=== PATIENT | male | born 1960 | race Caucasian/White ===

== ENCOUNTER 2018-03-11 23:46 | Inpatient (IN) | payer BC ==
[2018-03-12 02:23] VITALS: BMI 41.8
[2018-03-12] MEDS ORDERED: DOCUSATE 100 MG CAP PO PRN (02:55)
[2018-03-12] MEDS ORDERED: VANCOMYCIN 2,000 MG in SODIUM CHLORIDE 0.9% 500 ML IVPB ONE (03:00)
[2018-03-12] MEDS ORDERED: PIPERACILLIN-TAZOBACTAM 3.375 GM in DEXTROSE/WATER 1 50ML.BAG IVPB SCH (03:00)
[2018-03-12 03:22] LABS: Basophils # (A) 0.1 k/uL (0-0.2); Basophils % (A) 1 %; Eosinophils # (A) 0.2 k/uL (0-0.7); Eosinophils % (A) 1 %; HCT 41.3 % (39.0-53.0); HGB 14.2 gm/dL (13.0-17.5); Lymphocytes # (A) 0.7 k/uL (1.0-4.8); Lymphocytes % (A) 5 %; MCH 31.5 pg (25.0-35.0); MCHC 34.5 g/dL (31.0-37.0); MCV 91.4 fL (80.0-100.0); Mean Platelet Volume 7.6; Monocytes # (A) 0.5 k/uL (0-1.0); Monocytes % (A) 3 %; Neutrophils % (A) 89 %; Platelet Count 133 k/uL (150-450); RBC 4.51 m/uL (4.30-5.90); RDW 12.8 % (11.5-15.5); WBC 13.5 k/uL (3.8-10.6)
[2018-03-12] MEDS: SODIUM CHLORIDE 0.9% 1,000 ML IV SCH ×3 (03:28→15:20)
[2018-03-12 03:39] LABS: Anion Gap 15 mmol/L; Blood Urea Nitrogen 16 mg/dL (9-20); Calcium 8.8 mg/dL (8.4-10.2); Carbon Dioxide 26 mmol/L (22-30); Chloride 98 mmol/L (98-107); Glucose 237 mg/dL (74-99); Potassium 3.8 mmol/L (3.5-5.1); Sodium 139 mmol/L (137-145)
[2018-03-12 03:47] LABS: Appearance,Urine Clear (Clear); Bilirubin,Urine Negative (Negative); Blood,Urine Negative (Negative); Color,Urine Yellow; Glucose,Urine (UA) 4+ (Negative); Ketones,Urine Negative (Negative); Leukocyte Esterase,Urine Negative (Negative); Nitrite,Urine Negative (Negative); PH, Urine 5.5 (5.0-8.0); Protein,Urine Trace (Negative); Urobilinogen,Urine <2.0 mg/dL (<2.0)
[2018-03-12] MEDS ORDERED: HYDROcodone/APAP 7.5-325MG 1 EACH TAB PO SCH (04:00)
[2018-03-12 04:02] LABS: Specific Gravity,Urine >1.050 (1.001-1.035)
[2018-03-12 05:43] LABS: Glucose,Whole Blood 267 mg/dL (75-99)
[2018-03-12] MEDS ORDERED: VANCOMYCIN IV PER PHARMACY 1 EACH MISC MISCELLANE PRN (06:00)
--- NOTE | 2018-03-12 06:29 | XR ---
EXAMINATION TYPE: XR chest 2V DATE OF EXAM: 03/12/2018 HISTORY: r/o pneumonia . REFERENCE: NONE. FINDINGS: There are surgical clips projecting over the right side of the neck. There is mild vascular congestion without delma edema. Heart size is upper limits of normal. Pleural spaces are clear. IMPRESSION: BORDERLINE CARDIOMEGALY WITH MILD VASCULAR CONGESTION.
[2018-03-12] MEDS: ACETAMINOPHEN TAB 325 MG TAB PO PRN ×2 (06:36→17:33)
[2018-03-12] MEDS: INSULIN ASPART 100 UNIT/ML 1 ML 10 ML VIAL SQ SCH ×4 (06:37→20:55)
[2018-03-12] MEDS: FLUTICASONE 50MCG/SPRAY NASAL 16GM EA NOSTRIL SCH (08:25)
[2018-03-12] MEDS: METOPROLOL TARTRATE 50 MG TAB PO SCH ×2 (08:26→20:17)
[2018-03-12] MEDS: MIRTAZAPINE 15 MG TAB PO SCH (08:26)
[2018-03-12] MEDS: LOSARTAN 50 MG TAB PO SCH (08:26)
[2018-03-12] MEDS: HEPARIN SODIUM,PORCINE 5,000 UNIT/ML 1 ML VIAL SQ SCH ×2 (08:26→20:18)
[2018-03-12] MEDS: PREGABALIN 75 MG CAP PO SCH ×2 (08:27→20:25)
[2018-03-12] MEDS: FUROSEMIDE 40 MG TAB PO SCH (08:36)
[2018-03-12] MEDS ORDERED: PANTOPRAZOLE 40 MG/10 ML VIAL IVP SCH (09:00)
[2018-03-12] MEDS: PIPERACILLIN-TAZOBACTAM 3.375 GM in DEXTROSE/WATER 1 50ML.BAG IVPB SCH ×2 (09:17→15:21)
[2018-03-12 11:50] LABS: Glucose,Whole Blood 147 mg/dL (75-99)
--- NOTE | 2018-03-12 12:30 | P.HPIM ---
History of Present Illness This is a pleasant 57 years old male with past medical history of DM on metformin, hyperlipidemia, hypertension, thyroid disorder, arthritis, history of MRSA infection , kidney stone and and melanoma at the lateral corner of his right eye, status post surgical resection with neck lymph node dissection as per patient last surgery was on 11/07/2017, and he follow-up with his oncologist on this coming April as per patient who presents with left leg swelling and redness and tenderness of one-day duration With leukocytosis of 13.5 K,High lactic acid at 2.3 came down to 1.9,Patient has fever of 100.8 today and also patient was complaining of from chest pain yesterday, he has family history of early heart disease, 2 of his brothers are in their 50s with extensive heart disease, patient states that he had a heart cath about 15 years ago which shows only mitral valve disease. Patient currently denies any chest pain, no chest shortness of breath, no dizziness Review of Systems Review of Systems All systems: negative Constitutional: Denies chills, Eyes: denies blurred vision, denies pain Ears, nose, mouth and throat: Denies headache, Denies sore throat Cardiovascular: Denies chest pain currently, Denies shortness of breath Respiratory: Reports congestion, Reports home oxygen, Denies cough Gastrointestinal: Denies abdominal pain, Denies diarrhea, Denies nausea, Denies vomiting Musculoskeletal: Denies myalgias Integumentary: Denies pruritus, Denies rash Neurological: Denies numbness, Denies weakness Psychiatric: Denies anxiety, Denies depression Endocrine: Denies fatigue, Denies weight change Past Medical History Past Medical History: CVA/TIA, Diabetes Mellitus, Hyperlipidemia, Hypertension, Sleep Apnea/CPAP/BIPAP Additional Past Medical History / Comment(s): melanoma (diagnosed in March - 2016 ) History of Any Multi-Drug Resistant Organisms: MRSA Date of last positivie culture/infection: 2007 MDRO Source:: back Past Surgical History: Heart Catheterization, Orthopedic Surgery, Prostate Surgery Additional Past Surgical History / Comment(s): neck dissection in October 2017, right shoulder surgery Additional Past Anesthesia/Blood Transfusion Reaction / Comment(s): hard to wake up out of anestheia Past Psychological History: Anxiety, Depression Smoking Status: Never smoker - Past Family History Father Family Medical History: Coronary Artery Disease (CAD) Mother Family Medical History: Coronary Artery Disease (CAD), CVA/TIA Brother(s) Family Medical History: Diabetes Mellitus Medications and Allergies Home Medications Medication Instructions Recorded Confirmed Type Aspirin EC [Ecotrin Low Dose] 81 mg PO DAILY 03/12/18 03/12/18 History Fluconazole [Diflucan] 100 mg PO DAILY 03/12/18 03/12/18 History Fluticasone Nasal [place] [Flonase 1 spray EA NOSTRIL DAILY 03/12/18 03/12/18 History Nasal [place]] Furosemide [Lasix] 40 mg PO DAILY 03/12/18 03/12/18 History HYDROcodone/APAP 7.5-325MG [[place] 1 tab PO Q6H PRN 03/12/18 03/12/18 History 7.5-325] Losartan [Cozaar] 50 mg PO DAILY 03/12/18 03/12/18 History Metoprolol Tartrate [Lopressor] 50 mg PO BID 03/12/18 03/12/18 History Mirtazapine [Mirtazapine] 30 mg PO HS 03/12/18 03/12/18 History Multivitamins, Thera [Multivitamin 1 tab PO DAILY 03/12/18 03/12/18 History (formulary)] Pregabalin [Lyrica] 150 mg PO BID 03/12/18 03/12/18 History metFORMIN HCL [Glucophage] 500 mg PO BID 03/12/18 03/12/18 History traMADol HCl [Ultram] 50 mg PO BID 03/12/18 03/12/18 History Allergies Allergy/AdvReac Type Severity Reaction Status Date / Time gabapentin [From Neurontin] AdvReac EXCESSIVE Verified 03/12/18 11:17 SWEATING Physical Exam Vitals: Vital Signs Temp Pulse Resp BP Pulse Ox 03/12/18 08:10 100.8 F H 83 18 112/68 94 L 03/12/18 03:57 99.4 F 77 18 124/63 98 Intake and Output 03/11/18 03/12/18 03/12/18 22:59 06:59 14:59 Intake Total 200 Output Total 125 Balance -125 200 Intake: Oral 200 Output: Urine 125 Other: Voiding Method Urinal Weight 124.8 kg Constitutional: No acute distress, conversant, pleasant Eyes: Anicteric sclerae, moist conjunctiva, no lid-lag PERRLA ENMT: NC/AT Oropharynx clear, no erythema, exudates Neck: Supple, FROM, no masses, or JVD No carotid bruits No thyromegaly Lungs: Clear to auscultation Clear to percussion Normal respiratory effort, no accessory muscle use Cardiovascular: Heart regular in rate and rhythm, No murmurs, gallops, or rubs No peripheral edema Abdominal: Soft Nontender, no guarding, rebound or rigidity Abdomen moving with respiration Normoactive bowel sounds Large Abdominal swelling, mostly due to her ascites No palpable mass No abdominal wall hernia noted Skin: Normal temperature, tone, texture, turgor No induration No subcutaneous nodules No rash, lesions No ulcers Extremities: No digital cyanosis No clubbing Pedal pulses intact and symmetrical Radial pulses intact and symmetrical Normal gait and station Left leg tenderness , tenderness, and swelling in the upper two thirds anteriorly [demarcated] Psychiatric: Alert and oriented to person, place and time Appropriate affect Intact judgement Neuro: Muscles Strength 5/5 in all 4 extremities Sensation to light touch grossly present throughout Cranial nerves II-XII grossly intact No focal sensory deficits Results CBC & Chem 7: 03/12/18 03:09 03/12/18 03:09 Labs: Abnormal Lab Results - Last 24 Hours (Table) 03/12/18 03/12/18 03/12/18 Range/Units 03:09 03:09 03:09 WBC 13.5 H (3.8-10.6) k/uL Plt Count 133 L (150-450) k/uL Neutrophils # 12.0 H (1.3-7.7) k/uL Lymphocytes # 0.7 L (1.0-4.8) k/uL Glucose 237 H (74-99) mg/dL POC Glucose (mg/dL) (75-99) mg/dL Plasma Lactic Acid Manuel 2.3 H* (0.7-2.0) mmol/L Ur Specific [place] (1.001-1.035) Urine Protein (Negative) Urine Glucose (UA) (Negative) 03/12/18 03/12/18 03/12/18 Range/Units 03:30 05:39 11:48 WBC (3.8-10.6) k/uL Plt Count (150-450) k/uL Neutrophils # (1.3-7.7) k/uL Lymphocytes # (1.0-4.8) k/uL Glucose (74-99) mg/dL POC Glucose (mg/dL) 267 H 147 H (75-99) mg/dL Plasma Lactic Acid Manuel (0.7-2.0) mmol/L Ur Specific [place] >1.050 H (1.001-1.035) Urine Protein Trace H (Negative) Urine Glucose (UA) 4+ H (Negative) Thrombosis Risk Factor Assmnt - Choose All That Apply Each Factor Represents 1 point: Age 41-60 years, Swollen legs (current) Thrombosis Risk Factor Assessment Total Risk Factor Score: 2 Thrombosis Risk Factor Assessment Level: Low Risk Assessment and Plan Plan: -Cellulitis, patient has fever of 100.8 and leukocytosis of 13.5 K, ID consult is called, patient on Vanco and Zosyn already, risk of vancomycin nephrotoxicity is explained to the patient including reversible damage and he verbalized understanding and acceptance, check venous Doppler of his left leg -Chest pain yesterday, no more chest pain today, history of premature heart disease in the family, check liver enzymes EKG, echo on-call cardiology consult -Hypertension, continue with Lasix 40 by mouth daily and metoprolol 50 mg twice a day -Dehydration with high lactic acid of 2.3 on admission, came down to 1.9 [WNL] continue with IV fluid, check echo -DM, hold metformin and continue with ISS -Diabetic neuropathy, continue with symptomatic treatment DVT prophylaxis on subcutaneous heparin GI prophylaxis Protonix PT/OT is pending Prognosis is guarded
--- NOTE | 2018-03-12 13:21 | US ---
EXAMINATION TYPE: US venous doppler duplex LE LT DATE OF EXAM: 03/12/2018 12:59 PM COMPARISON: NONE CLINICAL HISTORY: Left leg cellulitis, rule out DVT or other. SIDE PERFORMED: Left TECHNIQUE: The lower extremity deep venous system is examined utilizing real time linear array sonog dary with graded compression, doppler sonography and color-flow sonography. VESSELS IMAGED: External Iliac Vein (EIV) Common Femoral Vein Deep Femoral Vein Greater Saphenous Vein * Femoral Vein Popliteal Vein Small Saphenous Vein * Proximal Calf Veins (* superficial vessels) Left Leg: Appears negative for DVT No popliteal fossa lesion is seen. IMPRESSION: THIS EXAMINATION IS NEGATIVE FOR DVT WITHIN THE LEFT LEG.
[2018-03-12] MEDS: HYDROcodone/APAP 7.5-325MG 1 EACH TAB PO PRN ×2 (15:19→20:25)
[2018-03-12] MEDS ORDERED: VANCOMYCIN 2,000 MG in SODIUM CHLORIDE 0.9% 500 ML IVPB SCH (16:00)
[2018-03-12 16:48] LABS: Glucose,Whole Blood 182 mg/dL (75-99)
[2018-03-12] MEDS: traMADol 50 MG TAB PO PRN (17:33)
[2018-03-12] MEDS: CLINDAMYCIN 900 MG in DEXTROSE 5% IN WATER 50 ML IVPB SCH ×2 (18:47)
[2018-03-12 20:48] LABS: Glucose,Whole Blood 218 mg/dL (75-99)
--- NOTE | 2018-03-12 23:11 | CONS ---
CONSULTATION DATE OF SERVICE: 03/12/2018. REASON FOR CONSULTATION: Left lower extremity cellulitis. HISTORY OF PRESENT ILLNESS: The patient is a 57-year-old male presenting to the ER with chief complaints of left leg swelling and redness that apparently started yesterday. The patient did complain of some dull aching pain to the left leg area with intensity about 3 to 4/10, and no radiation. Subsequent having some swelling redness, mostly involving the lateral portion of the leg with no history of any trauma. The patient did have a history of athlete's foot and previous episode of cellulitis back in February of 2012. With these symptoms, the patient has been transferred to this facility for further evaluation of the same. The patient did have a fever of 100.8. He did have elevated white count 13.5. The patient was started on vancomycin, Zosyn. He did have elevated lactic acid 2.3 infection. We were consulted for further recommendation regarding antibiotic therapy. REVIEW OF SYSTEMS: CONSTITUTIONAL: Positive for weakness along with the fever and chills. Eyes no complaint. ENT no complaint. Respiratory no complaint. Cardiovascular no complaint. Genitourinary no complaint. Gastrointestinal: No complaint. Musculoskeletal no complaint. Integumentary: As per HPI. Psychological no complaint. Endocrine no complaint. Neurologic no complaint. PAST MEDICAL HISTORY: Significant for CVA, TIA, diabetes mellitus, hypertension, hyperlipidemia, sleep apnea, history of melanoma and left lower extremity cellulitis secondary to MRSA. PAST SURGICAL HISTORY: Heart catheterization, prostate surgery, October 2017 and right shoulder surgery. SOCIAL HISTORY: No history of smoking, drinking, or drug use. FAMILY HISTORY: Father history of heart disease. Mother history of heart disease, CVA, TIA. Mother history of diabetes mellitus. ALLERGIES: TO GABAPENTIN. MEDICATION: Medications include the patient is currently on Tylenol, [place], Lasix, heparin, NovoLog. Cozaar. Lopressor, Protonix, Lyrica, Ultram, vancomycin pharmacy to dose and Piptazobactam. PHYSICAL EXAMINATION: Blood pressure 103/58 with a pulse of 68, temperature 98.6, T-max a 100.8. He is 95% on room air. General description is a middle-aged male lying in bed in no distress. No tachypnea or Synthroid respiration use. HEENT: Shows no pallor. No scleral icterus. Oral mucosa is moist. No pharyngeal erythema or thrush. Neck trachea central. No thyromegaly. Lungs unlabored breathing clear to auscultation anteriorly. No wheeze or crackles. Heart S1, S2. Regular rate and rhythm. ABDOMEN: Soft, no tenderness. No guarding. No organomegaly. Examination of lower extremity left leg with some redness, especially the lateral portion which is warm to touch. No evidence of athlete's foot in between the toe. No induration, fluctuation, or any drainage. Neurological patient is awake, alert, oriented times three. Mood and affect normal. LABS: Hemoglobin is 14.8, white count 13.5 BUN of 16, creatinine 0.80. Electrolytes has been normal. Lactic acid 2.3, PD is 1.9. Urine has been negative. Blood culture obtained currently pending. DIAGNOSTIC IMPRESSION AND PLAN: Patient with sepsis. Source is the left lower extremity cellulitis. The patient did have diffuse swelling with no evidence of athlete's foot likely representing streptococcal disease and rapid progression 0.2 Staphylococcus aureus infection. The patient did have which was negative for DVT. PLAN: 1. Discontinue vancomycin and Zosyn. 2. Will start the patient on cefazolin 3 g daily along with clindamycin 900. 3. Light Kojo wrap from just above to below the knee. 4. Nystatin cream in between the toes. 5. We will follow up on clinical condition and culture to further adjust medication if needed. Family present at bedside. All their questions were answered. MMODL / IJN: [id number] /
[2018-03-13] MEDS: CLINDAMYCIN 900 MG in DEXTROSE 5% IN WATER 50 ML IVPB SCH ×6 (00:16→15:52)
[2018-03-13] MEDS: HYDROcodone/APAP 7.5-325MG 1 EACH TAB PO PRN ×4 (05:28→22:58)
[2018-03-13 05:51] LABS: Glucose,Whole Blood 159 mg/dL (75-99)
[2018-03-13 06:03] LABS: Basophils # (A) 0.1 k/uL (0-0.2); Basophils % (A) 1 %; Eosinophils # (A) 0.1 k/uL (0-0.7); Eosinophils % (A) 1 %; HCT 37.6 % (39.0-53.0); HGB 12.9 gm/dL (13.0-17.5); Lymphocytes % (A) 10 %; MCH 31.1 pg (25.0-35.0); MCHC 34.2 g/dL (31.0-37.0); MCV 90.9 fL (80.0-100.0); Monocytes # (A) 0.6 k/uL (0-1.0); Monocytes % (A) 6 %; Neutrophils # (A) 7.5 k/uL (1.3-7.7); Neutrophils % (A) 79 %; Platelet Count 125 k/uL (150-450); RBC 4.14 m/uL (4.30-5.90); WBC 9.5 k/uL (3.8-10.6)
[2018-03-13 06:13] LABS: Anion Gap 13 mmol/L; Blood Urea Nitrogen 12 mg/dL (9-20); Calcium 8.3 mg/dL (8.4-10.2); Carbon Dioxide 23 mmol/L (22-30); Chloride 103 mmol/L (98-107); Glucose 150 mg/dL (74-99); Potassium 3.8 mmol/L (3.5-5.1); Sodium 139 mmol/L (137-145)
[2018-03-13] MEDS: INSULIN ASPART 100 UNIT/ML 1 ML 10 ML VIAL SQ SCH ×4 (06:44→22:59)
[2018-03-13] MEDS: PANTOPRAZOLE 40 MG TABLET PO SCH (06:44)
[2018-03-13] MEDS: traMADol 50 MG TAB PO PRN ×2 (06:48→20:00)
[2018-03-13] MEDS: SODIUM CHLORIDE 0.9% 1,000 ML IV SCH ×2 (08:54→21:54)
[2018-03-13] MEDS: FLUTICASONE 50MCG/SPRAY NASAL 16GM EA NOSTRIL SCH (09:00)
[2018-03-13] MEDS: MIRTAZAPINE 15 MG TAB PO SCH (09:00)
[2018-03-13] MEDS: HEPARIN SODIUM,PORCINE 5,000 UNIT/ML 1 ML VIAL SQ SCH ×2 (09:00→20:00)
[2018-03-13] MEDS: PREGABALIN 75 MG CAP PO SCH ×2 (09:00→20:00)
[2018-03-13] MEDS: FUROSEMIDE 40 MG TAB PO SCH (09:00)
[2018-03-13] MEDS: METOPROLOL TARTRATE 50 MG TAB PO SCH ×2 (09:00→20:00)
[2018-03-13] MEDS: LOSARTAN 50 MG TAB PO SCH (09:00)
--- NOTE | 2018-03-13 09:49 | ECHOF ---
Referral Reason:assess function MEASUREMENTS -------- HEIGHT: 172.7 cm WEIGHT: 127.5 kg BP: 124/70 RVIDd: 3.5 cm (< 3.3) IVSd: 1.3 cm (0.6 - 1.1) LVIDd: 4.0 cm (3.9 - 5.3) LVPWd: 1.2 cm (0.6 - 1.1) IVSs: 2.1 cm LVIDs: 1.7 cm LVPWs: 1.8 cm Ao Diam: 3.5 cm (2.0 - 3.7) AV Cusp: 2.5 cm (1.5 - 2.6) LA Diam: 4.5 cm (2.7 - 3.8) MV EXCURSION: 18.351 mm (> 18.000) MV EF SLOPE: 148 mm/s (70 - 150) EPSS: 0.5 cm MV E Pranay: 0.88 m/s MV DecT: 155 ms MV A Pranay: 0.60 m/s MV E/A Ratio: 1.47 RAP: 5.00 mmHg RVSP: 45.68 mmHg FINDINGS -------- Sinus rhythm. This was a technically difficult study with suboptimal views. The left ventricular size is normal. There is mild concentric left ventricular hypertrophy. Overa ll left ventricular systolic function is mildly impaired with, an EF between 45 - 50 %. Basal infer oseptal LV wall motion is hypokinetic. Basal inferolateral hypokinesis. The right ventricle is mildly enlarged. The left atrium is mildly dilated. The right atrium was not well visualized. Lumason used The aortic valve is trileaflet, and appears structurally normal. No aortic stenosis or regurgitation. The mitral valve was not well visualized. There is trace mitral regurgitation. Mild tricuspid regurgitation present. There is mild pulmonary hypertension. The right ventricular systolic pressure, as measured by Doppler, is 45.68mmHg. The pulmonic valve was not well visualized. Trace/mild (physiologic) pulmonic regurgitation. The aortic root size is normal. There is no pericardial effusion. CONCLUSIONS -------- 1. Sinus rhythm. 2. This was a technically difficult study with suboptimal views. 3. The left ventricular size is normal. 4. There is mild concentric left ventricular hypertrophy. 5. Overall left ventricular systolic function is mildly impaired with, an EF between 45 - 50 %. 6. Basal inferoseptal LV wall motion is hypokinetic. 7. Basal inferolateral hypokinesis. 8. The right ventricle is mildly enlarged. 9. The left atrium is mildly dilated. 10. The right atrium was not well visualized. 11. Lumason used 12. The aortic valve is trileaflet, and appears structurally normal. No aortic stenosis or regurgitat ion. 13. There is trace mitral regurgitation. 14. Mild tricuspid regurgitation present. 15. There is mild pulmonary hypertension. 16. Trace/mild (physiologic) pulmonic regurgitation. 17. The aortic root size is normal. 18. There is no pericardial effusion. FILM COMPOSER: Amy Howard RDCS
--- NOTE | 2018-03-13 11:16 | P.CRDCN ---
History of Present Illness Consult date: 03/13/18 Requesting physician: Ingrid Osborne Consult reason: chest pain Chief complaint: Left leg swelling and redness, chest pressure History of present illness: This is a 57-year-old gentleman with history of hypertension, diabetes , hyperlipidemia, sleep apnea, history of melanoma ,nonsmoker, who presents to the hospital mainly with symptoms of increased redness and swelling to his left lower extremity, he states that approximately 6 years ago he had an infection in that leg and almost lost it. He started to notice similar discoloration and swelling to what he had previous and for this reason he came to the hospital for further evaluation according to the patient, he also states that on Tuesday off and on for the entire day he was experiencing chest pressure and heaviness. Patient did have a cardiac catheterization 15 years ago or so and was told to have normal coronaries with some mitral valvular issues. He has not had a stress test recently, does not follow with a costume technician in the office. Chest x-ray on admission here shows borderline cardiomegaly with mild vascular congestion. Venous duplex study negative for DVT within the left leg. Echocardiogram with Doppler study was performed which revealed an ejection fraction of 45-50%, basal inferior lateral hypokinesia noted. Blood pressure 118/66, heart rate in the 70s, 93% on room air. Temperature 99.4 on arrival, subsequently 100.8. 101 last evening. Blood cultures have been sent. White blood cell count on admission 13.5, 9.5 this morning. Hemoglobin on admission 14.2, 12.9 this morning, platelet count 133, 125 this morning. Sodium 139, potassium 3.8, BUN 12, creatinine 0.8. Initial troponin 0.012. EKG shows normal sinus rhythm with incomplete right bundle subsequent EKG normal sinus rhythm incomplete right bundle branch block and nonspecific ST-T wave changes noted in the anterior lateral leads. At the time of my examination this morning , patient is currently chest pain-free, breathing is stable. Past Medical History Past Medical History: CVA/TIA, Diabetes Mellitus, Hyperlipidemia, Hypertension, Sleep Apnea/CPAP/BIPAP Additional Past Medical History / Comment(s): melanoma (diagnosed in March ) History of Any Multi-Drug Resistant Organisms: MRSA Date of last positivie culture/infection: 2007 MDRO Source:: back Past Surgical History: Heart Catheterization, Orthopedic Surgery, Prostate Surgery Additional Past Surgical History / Comment(s): neck dissection in October 2017, right shoulder surgery Additional Past Anesthesia/Blood Transfusion Reaction / Comment(s): hard to wake up out of anestheia Past Psychological History: Anxiety, Depression Smoking Status: Never smoker - Past Family History Father Family Medical History: Coronary Artery Disease (CAD) Mother Family Medical History: Coronary Artery Disease (CAD), CVA/TIA Brother(s) Family Medical History: Diabetes Mellitus Medications and Allergies Home Medications Medication Instructions Recorded Confirmed Type Aspirin EC [Ecotrin Low Dose] 81 mg PO DAILY 03/12/18 03/12/18 History Fluconazole [Diflucan] 100 mg PO DAILY 03/12/18 03/12/18 History Fluticasone Nasal [place] [Flonase 1 spray EA NOSTRIL DAILY 03/12/18 03/12/18 History Nasal [place]] Furosemide [Lasix] 40 mg PO DAILY 03/12/18 03/12/18 History HYDROcodone/APAP 7.5-325MG [[place] 1 tab PO Q6H PRN 03/12/18 03/12/18 History 7.5-325] Losartan [Cozaar] 50 mg PO DAILY 03/12/18 03/12/18 History Metoprolol Tartrate [Lopressor] 50 mg PO BID 03/12/18 03/12/18 History Mirtazapine [Mirtazapine] 30 mg PO HS 03/12/18 03/12/18 History Multivitamins, Thera [Multivitamin 1 tab PO DAILY 03/12/18 03/12/18 History (formulary)] Pregabalin [Lyrica] 150 mg PO BID 03/12/18 03/12/18 History metFORMIN HCL [Glucophage] 500 mg PO BID 03/12/18 03/12/18 History traMADol HCl [Ultram] 50 mg PO BID 03/12/18 03/12/18 History Allergies Allergy/AdvReac Type Severity Reaction Status Date / Time gabapentin [From Neurontin] AdvReac EXCESSIVE Verified 03/12/18 11:17 SWEATING Physical Exam Vitals: Vital Signs Temp Pulse Resp BP Pulse Ox 03/13/18 09:00 99.9 F H 78 18 118/66 93 L 03/13/18 04:00 100 F H 73 18 124/70 94 L 03/13/18 00:00 99.7 F H 71 18 117/69 92 L 03/12/18 20:00 101.1 F H 73 18 124/64 95 03/12/18 15:15 99.9 F H 67 16 113/65 97 03/12/18 11:15 98.6 F 68 18 103/58 95 Intake and Output 03/12/18 03/13/18 03/13/18 22:59 06:59 14:59 Intake Total 236 240 Output Total 100 100 Balance 136 -100 240 Intake: Oral 236 240 Output: Urine 100 100 Other: Voiding Method Urinal Urinal Urinal Weight 127.6 kg PHYSICAL EXAMINATION: HEENT: Head is atraumatic, normocephalic. Pupils equal, round. Neck is supple. There is no elevated jugular venous pressure. HEART EXAMINATION: Heart S1, S2 normal. No murmur or gallop heard. CHEST EXAMINATION: Lungs are clear to auscultation and precussion. No chest wall tenderness is noted on palpation or with deep breathing. ABDOMEN: Soft, nontender. Bowel sounds are heard. No organomegaly noted. EXTREMITIES: 2+ peripheral pulses with evidence peripheral edema, dressing in place to the left lower extremity from the knee down. NEUROLOGIC patient is awake, alert and oriented -3. . Results 03/13/18 05:25 03/13/18 05:25 Cardiac Enzymes 03/12/18 Range/Units 15:32 Troponin I <0.012 (0.000-0.034) ng/mL CBC 03/13/18 Range/Units 05:25 WBC 9.5 (3.8-10.6) k/uL RBC 4.14 L (4.30-5.90) m/uL Hgb 12.9 L (13.0-17.5) gm/dL Hct 37.6 L (39.0-53.0) % Plt Count 125 L (150-450) k/uL Comprehensive Metabolic Panel 03/13/18 Range/Units 05:25 Sodium 139 (137-145) mmol/L Potassium 3.8 (3.5-5.1) mmol/L Chloride 103 (98-107) mmol/L Carbon Dioxide 23 (22-30) mmol/L BUN 12 (9-20) mg/dL Creatinine 0.80 (0.66-1.25) mg/dL Glucose 150 H (74-99) mg/dL Calcium 8.3 L (8.4-10.2) mg/dL Current Medications Generic Name Dose Route Start Last Admin Trade Name Freq PRN Reason Stop Dose Admin Acetaminophen 650 mg 03/12/18 02:27 03/12/18 17:33 Tylenol Tab PO 650 mg Q6HR PRN Administration Fever and/ or Pain Hydrocodone Bitart/Acetaminophen 1 each 03/12/18 03:35 03/13/18 05:28 [place] 7.5-325 PO 1 each Q4HR PRN Administration Mild to Moderate Pain Docusate Sodium 100 mg 03/12/18 02:55 Colace PO BID PRN Constipation Fluticasone Propionate 1 spray 03/12/18 09:00 03/13/18 09:00 Flonase Nasal [place] EA NOSTRIL 1 spray DAILY SABI Administration Furosemide 40 mg 03/12/18 09:00 03/13/18 09:00 Lasix PO 40 mg DAILY SABI Administration Heparin Sodium (Porcine) 5,000 unit 03/12/18 09:00 03/13/18 09:00 Heparin SQ 5,000 unit Q12HR SABI Administration Sodium Chloride 1,000 mls @ 50 mls/hr 03/12/18 12:24 03/13/18 08:54 Saline 0.9% IV 50 mls/hr .Q20H SABI Administration Cefazolin Sodium 3 gm/ Sodium 50 mls @ 100 mls/hr 03/12/18 17:00 03/13/18 09: 00 Chloride IVPB 100 mls/hr Q8HR SABI Administration Clindamycin Phosphate 900 mg/ 56 mls @ 100 mls/hr 03/12/18 17:00 03/13/18 09: 56 Dextrose/Water IVPB 100 mls/hr Q8HR SABI Administration Insulin Aspart 0 unit 03/12/18 07:30 03/13/18 06:44 Novolog SQ 2 unit ACHS SABI Administration Protocol Losartan Potassium 50 mg 03/12/18 09:00 03/13/18 09:00 Cozaar PO 50 mg DAILY SABI Administration Metoprolol Tartrate 50 mg 03/12/18 09:00 03/13/18 09:00 Lopressor PO 50 mg BID SABI Administration Mirtazapine 30 mg 03/12/18 09:00 03/13/18 09:00 Remeron PO 30 mg DAILY SABI Administration Pantoprazole Sodium 40 mg 03/13/18 07:30 03/13/18 06:44 Protonix PO 40 mg AC-[id number] SABI Administration Pregabalin 150 mg 03/12/18 09:00 03/13/18 09:00 Lyrica PO 150 mg BID SABI Administration Tramadol HCl 50 mg 03/12/18 06:31 03/13/18 06:48 Ultram PO 50 mg Q6HR PRN Administration Moderate to Severe Pain Intake and Output 03/12/18 03/13/18 03/13/18 22:59 06:59 14:59 Intake Total 236 240 Output Total 100 100 Balance 136 -100 240 Intake: Oral 236 240 Output: Urine 100 100 Other: Voiding Method Urinal Urinal Urinal Weight 127.6 kg 03/13/18 05:25 03/13/18 05:25 EKG Interpretations (text) EKG initially shows normal sinus rhythm with incomplete right bundle branch block pattern. Subsequent EKG shows normal sinus rhythm with nonspecific ST-T wave changes in the anterior lateral leads. Assessment and Plan Plan: Assessment and plan #1 left lower extremity redness and swelling with evidence of cellulitis. #2 chest tightness, intermittent, initial troponin 0.012. EKG shows normal sinus rhythm with nonspecific ST-T wave changes in the anterior lateral leads. #3 diabetes #4 hypertension # 5 hyperlipidemia #6 sleep apnea #7 prior TIA #8 history of melanoma #9 history of prior episode of cellulitis approximately 6 years ago secondary to MRSA. #10 strong family history of premature coronary artery disease. Plan Echocardiogram with Doppler study was performed which revealed an ejection fraction of 45-50%. Patient states that he had a heart catheterization a proximally 15 years ago and was told at that time to have normal coronary arteries with some mitral valve issues. We will attempt to get that report. We will obtain 2 subsequent troponins. We'll start the patient on a statin as he is a known diabetic, if the troponins come back normal, once the infection clears patient may benefit from stress testing or cardiac catheterization depending on the troponins. Further recommendations to follow. DNP note has been reviewed, I agree with a documented findings and plan of care. Patient was seen and examined.
[2018-03-13 11:31] LABS: Hemoglobin A1C 8.5 % (4.0-6.0)
[2018-03-13 11:37] LABS: Glucose,Whole Blood 173 mg/dL (75-99)
[2018-03-13] MEDS: ATORVASTATIN 40 MG TAB PO SCH (11:49)
[2018-03-13] MEDS: ACETAMINOPHEN TAB 325 MG TAB PO PRN ×2 (11:49→19:59)
[2018-03-13] MEDS ORDERED: RX INFO: IV CONTRAST WAS GIVEN 1 EACH MISC MISCELLANE PRN (14:11)
--- NOTE | 2018-03-13 15:15 | CT ---
EXAMINATION TYPE: CT angio chest DATE OF EXAM: 03/13/2018 COMPARISON: Chest CT December 04, 2009 HISTORY: Patient complains of difficulty breathing. CT DLP: 541.8 mGycm. Automated Exposure Control for Dose Reduction was Utilized. CONTRAST: CTA scan of the thorax is performed with IV Contrast, patient injected with 100 mL of Isovue 370, pul monary embolism protocol. MIP Images are created on CT scanner and reviewed. FINDINGS: LUNGS: Overall low lung volumes are redemonstrated. There is significant respiratory motion artifact degradation seen limiting evaluation for subcentimeter nodularity. The lungs are predominantly clear, there is no concerning parenchymal mass identified. There is no pleural effusion or pneumothorax seen bilaterally. The tracheobronchial tree is patent. MEDIASTINUM: There is suboptimal bolus with heterogeneity and near equal contrast seen in the right a nd left heart systems but there is no convincing CT evidence for acute pulmonary embolism. There are no greater than 1 cm hilar or mediastinal lymph nodes. No significant pericardial effusion is seen . Cardiomegaly is redemonstrated. There is mild to moderate biatrial and left ventricular dilatation. Some reflux of contrast into hepatic veins and IVC is seen. OTHER: There is moderate to severe multilevel spurring in the thoracic spine. IMPRESSION: 1. Suboptimal study without CT evidence for acute pulmonary embolism. 2. Low lung volumes and cardiomegaly without suspicious acute pulmonary process.
[2018-03-13 16:25] LABS: Glucose,Whole Blood 214 mg/dL (75-99)
[2018-03-13 20:30] LABS: Glucose,Whole Blood 175 mg/dL (75-99)
--- NOTE | 2018-03-13 21:41 | P.PN ---
Subjective pt is feeling a little better today, he think his leg is less swollen , he denies to me any further chest pain , no dyspnea , he still has fever of low grade at 99.9 and his antibiotics are adjusted as per ID team , no leukocytosis , BC are negative so far . cardilogist evaluated pt today , High DDimer, CTPA as per cardiology team : no PE Objective - Vital Signs Vital signs: Vital Signs Temp 99.9 F H 03/13/18 19:51 Pulse 80 03/13/18 19:51 Resp 16 03/13/18 19:51 BP 163/84 03/13/18 19:51 Pulse Ox 98 03/13/18 19:51 Intake & Output 03/13/18 03/13/18 03/14/18 06:59 18:59 06:59 Intake Total 1654 Output Total 200 1100 Balance -200 554 Weight 127.6 kg Intake: Intake, IV Titration 400 Amount Clindamycin 900 mg In 50 Dextrose 5% in Water 50 ml @ 100 mls/hr IVPB Q8HR SABI Rx#:[id number] Sodium Chloride 0.9% 1, 300 000 ml @ 50 mls/hr IV . Q20H SABI Rx#:[id number] ceFAZolin 3 gm In Sodium 50 Chloride 0.9% 50 ml @ 100 mls/hr IVPB Q8HR SABI Rx# :[id number] Oral 1254 Output: Urine 200 1100 Other: Voiding Method Urinal Urinal - Exam Constitutional: No acute distress, conversant, pleasant Eyes: Anicteric sclerae, moist conjunctiva, no lid-lag PERRLA ENMT: NC/AT Oropharynx clear, no erythema, exudates Neck: Supple, FROM, no masses, or JVD No carotid bruits No thyromegaly Lungs: Clear to auscultation Clear to percussion Normal respiratory effort, no accessory muscle use Cardiovascular: Heart regular in rate and rhythm, No murmurs, gallops, or rubs No peripheral edema Abdominal: Soft Nontender, no guarding, rebound or rigidity Abdomen moving with respiration Normoactive bowel sounds Large Abdominal swelling, mostly due to her ascites No palpable mass No abdominal wall hernia noted Skin: Normal temperature, tone, texture, turgor No induration No subcutaneous nodules No rash, lesions No ulcers Extremities: No digital cyanosis No clubbing Pedal pulses intact and symmetrical Radial pulses intact and symmetrical Normal gait and station Left leg tenderness , tenderness, and swelling in the upper two thirds anteriorly are all improving [demarcated] Psychiatric: Alert and oriented to person, place and time Appropriate affect Intact judgement Neuro: Muscles Strength 5/5 in all 4 extremities Sensation to light touch grossly present throughout Cranial nerves II-XII grossly intact - Labs CBC & Chem 7: 03/13/18 05:25 03/13/18 05:25 Labs: Abnormal Lab Results - Last 24 Hours (Table) 03/12/18 03/13/18 03/13/18 Range/Units 03:09 05:25 05:25 RBC 4.14 L (4.30-5.90) m/uL Hgb 12.9 L (13.0-17.5) gm/dL Hct 37.6 L (39.0-53.0) % Plt Count 125 L (150-450) k/uL D-Dimer (<0.60) mg/L FEU Glucose 150 H (74-99) mg/dL POC Glucose (mg/dL) (75-99) mg/dL Hemoglobin A1c 8.5 H (4.0-6.0) % Calcium 8.3 L (8.4-10.2) mg/dL 03/13/18 03/13/18 03/13/18 Range/Units 05:50 11:35 13:41 RBC (4.30-5.90) m/uL Hgb (13.0-17.5) gm/dL Hct (39.0-53.0) % Plt Count (150-450) k/uL D-Dimer 3.29 H (<0.60) mg/L FEU Glucose (74-99) mg/dL POC Glucose (mg/dL) 159 H 173 H (75-99) mg/dL Hemoglobin A1c (4.0-6.0) % Calcium (8.4-10.2) mg/dL 03/13/18 03/13/18 Range/Units 16:23 20:28 RBC (4.30-5.90) m/uL Hgb (13.0-17.5) gm/dL Hct (39.0-53.0) % Plt Count (150-450) k/uL D-Dimer (<0.60) mg/L FEU Glucose (74-99) mg/dL POC Glucose (mg/dL) 214 H 175 H (75-99) mg/dL Hemoglobin A1c (4.0-6.0) % Calcium (8.4-10.2) mg/dL Microbiology - Last 24 Hours (Table) 03/12/18 03:10 Blood Culture - Preliminary Blood No Growth after 24 hours Assessment and Plan Plan: -Cellulitis, patient has fever of 100.8 down to 99.9 and improved leukocytosis of 13.5 K to 9.5 , less leg erythema, ID consult is called, patient on on clindamycin and cefazolin venous Doppler of his left leg: no DVT -Chest pain yesterday, no more chest pain today, history of premature heart disease in the family, check liver enzymes EKG, echo: EF 45-50% on-call cardiology consult, CTPA : no PE due to high D-Dimer -Hypertension, continue with Lasix 40 by mouth daily and metoprolol 50 mg twice a day -Dehydration with high lactic acid of 2.3 on admission, came down to 1.9 [WNL] continue with IV fluid, check echo as above -DM, hold metformin and continue with ISS -Diabetic neuropathy, continue with symptomatic treatment DVT prophylaxis on subcutaneous heparin GI prophylaxis Protonix PT/OT is pending Prognosis is guarded
--- NOTE | 2018-03-13 22:57 | PN ---
PROGRESS NOTE DATE OF SERVICE: 03/13/2018. REASON FOR FOLLOWUP: 1. Left lower extremity cellulitis. 2. Athlete's foot. INTERVAL HISTORY: The patient's overall fever pattern has improved. The highest temperature is 99.3. He is feeling slightly better, breathing comfortably. Denies having any chest pain. No cough. No abdominal pain. Overall pain and swelling in the left leg has slightly decreased. EXAMINATION: Blood pressure 113/67 with a pulse of 63, temperature of 99.3. He is 96% on room air. General description is a middle-aged male lying in bed in no distress. RESPIRATORY SYSTEM: Unlabored breathing, clear to auscultation anteriorly. HEART: S1, S2. Regular rate and rhythm. ABDOMEN: Soft, no tenderness. Left leg swelling currently since yesterday. LABS: White count normalized to 9.5 with a BUN of 12 and creatinine 0.80. Blood culture has been negative. DIAGNOSTIC IMPRESSION AND PLAN: Patient with acute left lower extremity cellulitis in patient who did have evidence of athlete's foot. The patient was to continue and clindamycin. Kojo wrap to keep the swelling down and will re-evaluate the patient tomorrow. Continue supportive care. He will continue with nystatin cream between the toes for underlying athlete's foot. MMODL / IJN: [id number] /
[2018-03-14] MEDS: CLINDAMYCIN 900 MG in DEXTROSE 5% IN WATER 50 ML IVPB SCH ×4 (02:52→08:21)
[2018-03-14 06:01] LABS: Glucose,Whole Blood 130 mg/dL (75-99)
[2018-03-14] MEDS: INSULIN ASPART 100 UNIT/ML 1 ML 10 ML VIAL SQ SCH ×4 (06:06→22:05)
[2018-03-14] MEDS: HYDROcodone/APAP 7.5-325MG 1 EACH TAB PO PRN ×4 (06:13→17:44)
[2018-03-14] MEDS: PANTOPRAZOLE 40 MG TABLET PO SCH (06:13)
[2018-03-14 07:05] LABS: Basophils # (A) 0.1 k/uL (0-0.2); Basophils % (A) 1 %; Eosinophils # (A) 0.3 k/uL (0-0.7); Eosinophils % (A) 3 %; HCT 36.2 % (39.0-53.0); HGB 12.4 gm/dL (13.0-17.5); Lymphocytes # (A) 1.5 k/uL (1.0-4.8); Lymphocytes % (A) 16 %; MCH 31.5 pg (25.0-35.0); MCHC 34.1 g/dL (31.0-37.0); MCV 92.1 fL (80.0-100.0); Mean Platelet Volume 9.7; Monocytes # (A) 0.9 k/uL (0-1.0); Monocytes % (A) 9 %; Neutrophils # (A) 6.4 k/uL (1.3-7.7); Neutrophils % (A) 68 %; Platelet Count 114 k/uL (150-450); RBC 3.93 m/uL (4.30-5.90); RDW 13.1 % (11.5-15.5); WBC 9.5 k/uL (3.8-10.6)
[2018-03-14 08:03] LABS: Anion Gap 15 mmol/L; Blood Urea Nitrogen 12 mg/dL (9-20); Calcium 8.5 mg/dL (8.4-10.2); Carbon Dioxide 25 mmol/L (22-30); Chloride 103 mmol/L (98-107); Glucose 147 mg/dL (74-99); Potassium 3.9 mmol/L (3.5-5.1); Sodium 143 mmol/L (137-145)
[2018-03-14] MEDS: LOSARTAN 50 MG TAB PO SCH (08:17)
[2018-03-14] MEDS: HEPARIN SODIUM,PORCINE 5,000 UNIT/ML 1 ML VIAL SQ SCH ×2 (08:17→21:57)
[2018-03-14] MEDS: ATORVASTATIN 40 MG TAB PO SCH (08:17)
[2018-03-14] MEDS: MIRTAZAPINE 15 MG TAB PO SCH (08:17)
[2018-03-14] MEDS: FLUTICASONE 50MCG/SPRAY NASAL 16GM EA NOSTRIL SCH (08:17)
[2018-03-14] MEDS: METOPROLOL TARTRATE 50 MG TAB PO SCH ×2 (08:18→22:00)
[2018-03-14] MEDS: FUROSEMIDE 40 MG TAB PO SCH (08:18)
[2018-03-14] MEDS: PREGABALIN 75 MG CAP PO SCH ×2 (08:20→22:04)
[2018-03-14] MEDS: traMADol 50 MG TAB PO PRN ×4 (08:32→21:58)
--- NOTE | 2018-03-14 10:20 | P.PN ---
Subjective pt is feeling a little better today, he think his leg is less swollen , he denies to me any further chest pain , no dyspnea , he still has fever of low grade at 99.9 and his antibiotics are adjusted as per ID team , no leukocytosis , BC are negative so far . cardilogist evaluated pt today , High DDimer, CTPA as per cardiology team : no PE Objective - Vital Signs Vital signs: Vital Signs Temp 98.8 F 03/14/18 08:00 Pulse 70 03/14/18 08:00 Resp 18 03/14/18 08:00 BP 131/87 03/14/18 08:00 Pulse Ox 92 L 03/14/18 08:00 Intake & Output 03/13/18 03/14/18 03/14/18 18:59 06:59 18:59 Intake Total 1654 150 360 Output Total 1100 Balance 554 150 360 Weight 126.8 kg Intake: Intake, IV Titration 400 150 Amount Clindamycin 900 mg In 50 Dextrose 5% in Water 50 ml @ 100 mls/hr IVPB Q8HR SABI Rx#:[id number] Sodium Chloride 0.9% 1, 300 150 000 ml @ 50 mls/hr IV . Q20H SABI Rx#:[id number] ceFAZolin 3 gm In Sodium 50 Chloride 0.9% 50 ml @ 100 mls/hr IVPB Q8HR SABI Rx# :[id number] Oral 1254 360 Output: Urine 1100 Other: Voiding Method Urinal Urinal # Voids 1 - Exam Constitutional: No acute distress, conversant, pleasant Eyes: Anicteric sclerae, moist conjunctiva, no lid-lag PERRLA ENMT: NC/AT Oropharynx clear, no erythema, exudates Neck: Supple, FROM, no masses, or JVD No carotid bruits No thyromegaly Lungs: Clear to auscultation Clear to percussion Normal respiratory effort, no accessory muscle use Cardiovascular: Heart regular in rate and rhythm, No murmurs, gallops, or rubs No peripheral edema Abdominal: Soft Nontender, no guarding, rebound or rigidity Abdomen moving with respiration Normoactive bowel sounds Large Abdominal swelling, mostly due to her ascites No palpable mass No abdominal wall hernia noted Skin: Normal temperature, tone, texture, turgor No induration No subcutaneous nodules No rash, lesions No ulcers Extremities: No digital cyanosis No clubbing Pedal pulses intact and symmetrical Radial pulses intact and symmetrical Normal gait and station Left leg tenderness , and swelling in the upper two thirds anteriorly are all improving over 2 days [demarcated] Psychiatric: Alert and oriented to person, place and time Appropriate affect Intact judgement Neuro: Muscles Strength 5/5 in all 4 extremities Sensation to light touch grossly present throughout Cranial nerves II-XII grossly intact - Labs CBC & Chem 7: 03/14/18 06:41 03/14/18 07:41 Labs: Abnormal Lab Results - Last 24 Hours (Table) 03/12/18 03/13/18 03/13/18 Range/Units 03:09 11:35 13:41 RBC (4.30-5.90) m/uL Hgb (13.0-17.5) gm/dL Hct (39.0-53.0) % Plt Count (150-450) k/uL D-Dimer 3.29 H (<0.60) mg/L FEU Glucose (74-99) mg/dL POC Glucose (mg/dL) 173 H (75-99) mg/dL Hemoglobin A1c 8.5 H (4.0-6.0) % 03/13/18 03/13/18 03/14/18 Range/Units 16:23 20:28 05:59 RBC (4.30-5.90) m/uL Hgb (13.0-17.5) gm/dL Hct (39.0-53.0) % Plt Count (150-450) k/uL D-Dimer (<0.60) mg/L FEU Glucose (74-99) mg/dL POC Glucose (mg/dL) 214 H 175 H 130 H (75-99) mg/dL Hemoglobin A1c (4.0-6.0) % 03/14/18 03/14/18 Range/Units 06:41 07:41 RBC 3.93 L (4.30-5.90) m/uL Hgb 12.4 L (13.0-17.5) gm/dL Hct 36.2 L (39.0-53.0) % Plt Count 114 L (150-450) k/uL D-Dimer (<0.60) mg/L FEU Glucose 147 H (74-99) mg/dL POC Glucose (mg/dL) (75-99) mg/dL Hemoglobin A1c (4.0-6.0) % Microbiology - Last 24 Hours (Table) 03/12/18 03:10 Blood Culture - Preliminary Blood No Growth after 48 hours Assessment and Plan Plan: -Cellulitis, patient has fever of 100.8 down to 99.9 and improved leukocytosis of 13.5 K to 9.5 , less leg erythema, ID consult is called, patient on on clindamycin and cefazolin venous Doppler of his left leg: no DVT, improving -Chest pain on admission, no more chest pain today, history of premature heart disease in the family, check liver enzymes EKG, echo: EF 45-50% on-call cardiology consult is appreciated and they recommended cardiac workup either in- house or outpatient, CTPA : no PE due to high D-Dimer -Hypertension, continue with Lasix 40 by mouth daily and metoprolol 50 mg twice a day -Dehydration with high lactic acid of 2.3 on admission, came down to 1.9 [WNL] continue with IV fluid, check echo as above -DM, hold metformin and continue with ISS -Diabetic neuropathy, continue with symptomatic treatment DVT prophylaxis on subcutaneous heparin GI prophylaxis Protonix PT/OT is pending Prognosis is guarded
[2018-03-14 11:16] LABS: Glucose,Whole Blood 166 mg/dL (75-99)
[2018-03-14] MEDS ORDERED: ONDANSETRON 4 MG/2 ML VIAL IVP PRN (11:48)
[2018-03-14] MEDS ORDERED: VANCOMYCIN IV PER PHARMACY 1 EACH MISC MISCELLANE PRN (12:34)
[2018-03-14] MEDS ORDERED: VANCOMYCIN 2,500 MG in SODIUM CHLORIDE 0.9% 500 ML IVPB ONE (13:00)
--- NOTE | 2018-03-14 13:49 | PN ---
PROGRESS NOTE DATE OF SERVICE: 03/14/2018 REASON FOR FOLLOWUP: Left leg cellulitis. INTERVAL HISTORY: The patient had a fever this morning of 100.9. He is breathing comfortably. The patient denies having any chest pain or shortness of breath or cough. The left leg swelling and redness is slightly decreased. No diarrhea. PHYSICAL EXAMINATION: On examination, blood pressure 141/76, pulse of 76, temperature 100.9. He is 96% on room air. General description is a middle-aged male up in the chair in no distress. RESPIRATORY SYSTEM: Unlabored breathing, clear to auscultation anteriorly. HEART: S1, S2. Regular rate and rhythm. ABDOMEN: Soft, no tenderness. Left leg swelling, redness is slightly decreased. Still warm to touch. No drainage. LABS: Blood culture negative. White count has normalized. DIAGNOSTIC IMPRESSION AND PLAN: Patient with acute left lower extremity cellulitis with a feature of streptococcal disease. However, he has very minimal improvement in the last 48 hours and also has a new fever. Blood cultures will be repeated. Will discontinue the cefazolin and clindamycin. Start the patient on vancomycin pharmacy to dose. Adjusting further based on clinical response. Recommend keeping the patient on IV antibiotic until his condition stabilizes Continue supportive care. MMODL / IJN: [id number] /
--- NOTE | 2018-03-14 16:00 | P.PN ---
Subjective Progress Note Date: 03/14/18 This is a 57-year-old gentleman with history of hypertension, diabetes , hyperlipidemia, sleep apnea, history of melanoma ,nonsmoker, who presents to the hospital mainly with symptoms of increased redness and swelling to his left lower extremity, he states that approximately 6 years ago he had an infection in that leg and almost lost it. He started to notice similar discoloration and swelling to what he had previous and for this reason he came to the hospital for further evaluation according to the patient, he also states that on Tuesday off and on for the entire day he was experiencing chest pressure and heaviness. Patient did have a cardiac catheterization 15 years ago or so and was told to have normal coronaries with some mitral valvular issues. He has not had a stress test recently, does not follow with a white sidewall tire buffer in the office. Chest x-ray on admission here shows borderline cardiomegaly with mild vascular congestion. Venous duplex study negative for DVT within the left leg. Echocardiogram with Doppler study was performed which revealed an ejection fraction of 45-50%, basal inferior lateral hypokinesia noted. Blood pressure 118/66, heart rate in the 70s, 93% on room air. Temperature 99.4 on arrival, subsequently 100.8. 101 last evening. Blood cultures have been sent. White blood cell count on admission 13.5, 9.5 this morning. Hemoglobin on admission 14.2, 12.9 this morning, platelet count 133, 125 this morning. Sodium 139, potassium 3.8, BUN 12, creatinine 0.8. Initial troponin 0.012. EKG shows normal sinus rhythm with incomplete right bundle subsequent EKG normal sinus rhythm incomplete right bundle branch block and nonspecific ST-T wave changes noted in the anterior lateral leads. At the time of my examination this morning , patient is currently chest pain-free, breathing is stable. 03/14/2018 Patient seen and examined this morning, continue to have intermittent fevers. Denies any chest discomfort in breathing overall has been stable. Continues to have significant swelling in his left lower extremity with evidence of cellulitis. His white blood cell count is normal, hemoglobin 12.4, platelet count 114. Sodium 143, potassium 3.9, BUN 12, creatinine 0.7. Objective - Vital Signs Vital signs: Vital Signs Temp 100.9 F H 03/14/18 11:40 Pulse 76 03/14/18 11:45 Resp 18 03/14/18 11:40 BP 141/76 03/14/18 11:40 Pulse Ox 96 03/14/18 11:40 Intake & Output 03/13/18 03/14/18 03/14/18 18:59 06:59 18:59 Intake Total 1654 150 360 Output Total 1100 Balance 554 150 360 Weight 126.8 kg Intake: Intake, IV Titration 400 150 Amount Clindamycin 900 mg In 50 Dextrose 5% in Water 50 ml @ 100 mls/hr IVPB Q8HR [facility] Rx#:[id number] Sodium Chloride 0.9% 1, 300 150 000 ml @ 50 mls/hr IV . Q20H [facility] Rx#:[id number] ceFAZolin 3 gm In Sodium 50 Chloride 0.9% 50 ml @ 100 mls/hr IVPB Q8HR [facility] Rx# :[id number] Oral 1254 360 Output: Urine 1100 Other: Voiding Method Urinal Urinal # Voids 1 - Exam PHYSICAL EXAMINATION: HEENT: Head is atraumatic, normocephalic. Pupils equal, round. Neck is supple. There is no elevated jugular venous pressure. HEART EXAMINATION: Heart S1, S2 normal. No murmur or gallop heard. CHEST EXAMINATION: Lungs are clear to auscultation and precussion. No chest wall tenderness is noted on palpation or with deep breathing. ABDOMEN: Soft, nontender. Bowel sounds are heard. No organomegaly noted. EXTREMITIES: 2+ peripheral pulses with evidence of bilateral peripheral edema, dressing in place to the left lower extremity. NEUROLOGIC patient is awake, alert and oriented -3. . - Labs CBC & Chem 7: 03/14/18 06:41 03/14/18 07:41 Labs: Abnormal Lab Results - Last 24 Hours (Table) 03/13/18 03/13/18 03/14/18 Range/Units 16:23 20:28 05:59 RBC (4.30-5.90) m/uL Hgb (13.0-17.5) gm/dL Hct (39.0-53.0) % Plt Count (150-450) k/uL Glucose (74-99) mg/dL POC Glucose (mg/dL) 214 H 175 H 130 H (75-99) mg/dL 03/14/18 03/14/18 03/14/18 Range/Units 06:41 07:41 11:08 RBC 3.93 L (4.30-5.90) m/uL Hgb 12.4 L (13.0-17.5) gm/dL Hct 36.2 L (39.0-53.0) % Plt Count 114 L (150-450) k/uL Glucose 147 H (74-99) mg/dL POC Glucose (mg/dL) 166 H (75-99) mg/dL Microbiology - Last 24 Hours (Table) 03/12/18 03:10 Blood Culture - Preliminary Blood No Growth after 48 hours Assessment and Plan Plan: Assessment and plan #1 left lower extremity redness and swelling with evidence of cellulitis. #2 chest tightness, intermittent, initial troponin 0.012. EKG shows normal sinus rhythm with nonspecific ST-T wave changes in the anterior lateral leads. #3 diabetes #4 hypertension # 5 hyperlipidemia #6 sleep apnea #7 prior TIA #8 history of melanoma #9 history of prior episode of cellulitis approximately 6 years ago secondary to MRSA. #10 strong family history of premature coronary artery disease. Plan Echocardiogram with Doppler study was performed which revealed an ejection fraction of 45-50%. Patient states that he had a heart catheterization a proximally 15 years ago and was told at that time to have normal coronary arteries with some mitral valve issues. Troponins 0.012, 0.012, 0.022. Patient continues to run intermittent fevers. Once his infection has cleared, patient will need to undergo further cardiac evaluation by stress testing or heart catheterization as an outpatient. DNP note has been reviewed, I agree with a documented findings and plan of care. Patient was seen and examined.
[2018-03-14 16:07] LABS: Glucose,Whole Blood 145 mg/dL (75-99)
[2018-03-14 20:42] LABS: Glucose,Whole Blood 130 mg/dL (75-99)
[2018-03-14] MEDS: VANCOMYCIN 2,000 MG in SODIUM CHLORIDE 0.9% 500 ML IVPB SCH (23:08)
[2018-03-15] MEDS: HYDROcodone/APAP 7.5-325MG 1 EACH TAB PO PRN ×5 (00:40→20:35)
[2018-03-15 05:57] LABS: Glucose,Whole Blood 118 mg/dL (75-99)
[2018-03-15] MEDS: PANTOPRAZOLE 40 MG TABLET PO SCH (05:57)
[2018-03-15] MEDS: SODIUM CHLORIDE 0.9% 1,000 ML IV SCH ×2 (07:31→22:06)
[2018-03-15] MEDS: INSULIN ASPART 100 UNIT/ML 1 ML 10 ML VIAL SQ SCH ×4 (07:32→22:11)
[2018-03-15] MEDS: FLUTICASONE 50MCG/SPRAY NASAL 16GM EA NOSTRIL SCH (07:38)
[2018-03-15] MEDS: HEPARIN SODIUM,PORCINE 5,000 UNIT/ML 1 ML VIAL SQ SCH ×2 (07:38→20:37)
[2018-03-15] MEDS: METOPROLOL TARTRATE 50 MG TAB PO SCH ×2 (07:38→20:37)
[2018-03-15] MEDS: MIRTAZAPINE 15 MG TAB PO SCH (07:38)
[2018-03-15] MEDS: ATORVASTATIN 40 MG TAB PO SCH (07:38)
[2018-03-15] MEDS: LOSARTAN 50 MG TAB PO SCH (07:38)
[2018-03-15] MEDS: FUROSEMIDE 40 MG TAB PO SCH (07:38)
[2018-03-15] MEDS: PREGABALIN 75 MG CAP PO SCH ×2 (07:43→22:11)
[2018-03-15] MEDS: VANCOMYCIN 2,000 MG in SODIUM CHLORIDE 0.9% 500 ML IVPB SCH ×2 (07:43→22:06)
[2018-03-15] MEDS: traMADol 50 MG TAB PO PRN ×3 (07:54→20:36)
[2018-03-15 11:17] LABS: Glucose,Whole Blood 172 mg/dL (75-99)
--- NOTE | 2018-03-15 11:20 | PN ---
PROGRESS NOTE DATE OF SERVICE: 03/15/2018 REASON FOR FOLLOWUP: 1. Left lower extremity cellulitis. 2. Groin area cutaneous . INTERVAL HISTORY: The patient is afebrile. The left leg swelling and redness mildly decreased. Pain has slightly decreased. Patient denies having any chest pain, shortness of breath or cough. No abdominal pain or diarrhea. Complaining of some itching in his groin area. PHYSICAL EXAMINATION: On examination, blood pressure 127/73, pulse of 77, temperature 98.9. He is 94% on room air. General description is a middle-aged male lying in bed in no distress. RESPIRATORY SYSTEM: Unlabored breathing, clear to auscultation anteriorly. HEART: S1, S2. Regular rate and rhythm. ABDOMEN: Soft, no tenderness. Left leg swelling that has slightly decreased. LABS: BUN of 12, creatinine 0.70. Blood cultures has been negative. DIAGNOSTIC IMPRESSION AND PLAN: 1. Patient with acute left lower extremity cellulitis. Initial not a very good response to the clindamycin and cefazolin with antibiotic adjusted yesterday to Vancomycin that will be continued for 24 hours as he seems to have shown slight improvement with vancomycin started yesterday. 2. Patient groin area cutaneous . Will add powder to the bilateral groin area and re-evaluate the patient tomorrow. MMODL / IJN: [id number] /
--- NOTE | 2018-03-15 12:22 | P.PN ---
Subjective pt is feeling a little better today, he think his leg is less swollen , he denies to me any further chest pain , no dyspnea , he still has fever of low grade at 99.9 and his antibiotics are adjusted as per ID team , no leukocytosis , BC are negative so far . cardilogist evaluated pt today , High DDimer, CTPA as per cardiology team : no PE 03/15/2018 Patient spiked fever yesterday morning at 100.9, patient still have some hot count redness on his left lower leg although it's not progressive but is not improving either as is expected, ID team are following the patient in the adjusted and antibiotic to vancomycin again, again explained to the patient at risks including but not limited to nephrotoxicity with vancomycin which could be irreversible and he verbalized understanding and acceptance Objective - Vital Signs Vital signs: Vital Signs Temp 99.2 F 03/15/18 11:33 Pulse 60 03/15/18 11:41 Resp 18 03/15/18 11:33 BP 134/83 03/15/18 11:33 Pulse Ox 98 03/15/18 11:33 Intake & Output 03/14/18 03/15/18 03/15/18 18:59 06:59 18:59 Intake Total 582 1100 240 Output Total 500 Balance 582 600 240 Weight 126 kg Intake: Intake, IV Titration 1100 Amount Sodium Chloride 0.9% 1, 600 000 ml @ 50 mls/hr IV . Q20H [facility] Rx#:[id number] Vancomycin 2,000 mg In 500 Sodium Chloride 0.9% 500 ml @ 167 mls/hr IVPB Q12HR [facility] Rx#:[id number] Oral 582 240 Output: Urine 500 Other: Voiding Method Urinal # Voids 1 - Exam Constitutional: No acute distress, conversant, pleasant Eyes: Anicteric sclerae, moist conjunctiva, no lid-lag PERRLA ENMT: NC/AT Oropharynx clear, no erythema, exudates Neck: Supple, FROM, no masses, or JVD No carotid bruits No thyromegaly Lungs: Clear to auscultation Clear to percussion Normal respiratory effort, no accessory muscle use Cardiovascular: Heart regular in rate and rhythm, No murmurs, gallops, or rubs No peripheral edema Abdominal: Soft Nontender, no guarding, rebound or rigidity Abdomen moving with respiration Normoactive bowel sounds Large Abdominal swelling, mostly due to her ascites No palpable mass No abdominal wall hernia noted Skin: Normal temperature, tone, texture, turgor No induration No subcutaneous nodules No rash, lesions No ulcers Extremities: No digital cyanosis No clubbing Pedal pulses intact and symmetrical Radial pulses intact and symmetrical Normal gait and station Left leg tenderness , and swelling in the upper two thirds anteriorlyimporoved partially and still red and hot [demarcated] Psychiatric: Alert and oriented to person, place and time Appropriate affect Intact judgement Neuro: Muscles Strength 5/5 in all 4 extremities Sensation to light touch grossly present throughout Cranial nerves II-XII grossly intact - Labs CBC & Chem 7: 03/14/18 06:41 03/14/18 07:41 Labs: Abnormal Lab Results - Last 24 Hours (Table) 03/14/18 03/14/18 03/15/18 Range/Units 16:03 20:40 05:56 POC Glucose (mg/dL) 145 H 130 H 118 H (75-99) mg/dL 03/15/18 Range/Units 11:13 POC Glucose (mg/dL) 172 H (75-99) mg/dL Microbiology - Last 24 Hours (Table) 03/12/18 03:10 Blood Culture - Preliminary Blood No Growth after 72 hours Assessment and Plan Plan: -Cellulitis, patient has fever of 100.9. and improved leukocytosis of 13.5 K to 9.5K , less leg erythema but not improving, ID follow-up is appreciated, change antibiotics to vancomycin as per ID recommendation , venous Doppler of his left leg: no DVT -Chest pain on admission, no more chest pain today, history of premature heart disease in the family, check liver enzymes EKG, echo: EF 45-50% on-call cardiology consult is appreciated and they recommended cardiac workup either in- house or outpatient, CTPA : no PE due to high D-Dimer -Hypertension, continue with Lasix 40 by mouth daily and metoprolol 50 mg twice a day -Dehydration with high lactic acid of 2.3 on admission, came down to 1.9 [WNL] continue with IV fluid, echo as above -DM, hold metformin and continue with ISS -Diabetic neuropathy, continue with symptomatic treatment DVT prophylaxis on subcutaneous heparin GI prophylaxis Protonix PT/OT is pending Prognosis is guarded
[2018-03-15 13:01] LABS: Basophils # (A) 0.1 k/uL (0-0.2); Basophils % (A) 1 %; Eosinophils # (A) 0.3 k/uL (0-0.7); Eosinophils % (A) 4 %; HCT 40.4 % (39.0-53.0); HGB 13.7 gm/dL (13.0-17.5); Lymphocytes # (A) 1.6 k/uL (1.0-4.8); Lymphocytes % (A) 24 %; MCH 31.2 pg (25.0-35.0); MCHC 33.9 g/dL (31.0-37.0); MCV 92.1 fL (80.0-100.0); Mean Platelet Volume 8.3; Monocytes # (A) 0.5 k/uL (0-1.0); Monocytes % (A) 8 %; Neutrophils # (A) 4.1 k/uL (1.3-7.7); Neutrophils % (A) 59 %; Platelet Count 157 k/uL (150-450); RBC 4.39 m/uL (4.30-5.90); RDW 13.1 % (11.5-15.5); WBC 6.8 k/uL (3.8-10.6)
[2018-03-15 13:11] LABS: Anion Gap 16 mmol/L; Calcium 8.9 mg/dL (8.4-10.2); Carbon Dioxide 25 mmol/L (22-30); Chloride 105 mmol/L (98-107); Glucose 156 mg/dL (74-99); Sodium 146 mmol/L (137-145)
[2018-03-15 13:12] LABS: Blood Urea Nitrogen 12 mg/dL (9-20); Potassium 5.3 mmol/L (3.5-5.1)
--- NOTE | 2018-03-15 16:06 | P.PN ---
Subjective Progress Note Date: 03/15/18 This is a 57-year-old gentleman with history of hypertension, diabetes , hyperlipidemia, sleep apnea, history of melanoma ,nonsmoker, who presents to the hospital mainly with symptoms of increased redness and swelling to his left lower extremity, he states that approximately 6 years ago he had an infection in that leg and almost lost it. He started to notice similar discoloration and swelling to what he had previous and for this reason he came to the hospital for further evaluation according to the patient, he also states that on Tuesday off and on for the entire day he was experiencing chest pressure and heaviness. Patient did have a cardiac catheterization 15 years ago or so and was told to have normal coronaries with some mitral valvular issues. He has not had a stress test recently, does not follow with a bench jeweler in the office. Chest x-ray on admission here shows borderline cardiomegaly with mild vascular congestion. Venous duplex study negative for DVT within the left leg. Echocardiogram with Doppler study was performed which revealed an ejection fraction of 45-50%, basal inferior lateral hypokinesia noted. Blood pressure 118/66, heart rate in the 70s, 93% on room air. Temperature 99.4 on arrival, subsequently 100.8. 101 last evening. Blood cultures have been sent. White blood cell count on admission 13.5, 9.5 this morning. Hemoglobin on admission 14.2, 12.9 this morning, platelet count 133, 125 this morning. Sodium 139, potassium 3.8, BUN 12, creatinine 0.8. Initial troponin 0.012. EKG shows normal sinus rhythm with incomplete right bundle subsequent EKG normal sinus rhythm incomplete right bundle branch block and nonspecific ST-T wave changes noted in the anterior lateral leads. At the time of my examination this morning , patient is currently chest pain-free, breathing is stable. 03/14/2018 Patient seen and examined this morning, continue to have intermittent fevers. Denies any chest discomfort in breathing overall has been stable. Continues to have significant swelling in his left lower extremity with evidence of cellulitis. His white blood cell count is normal, hemoglobin 12.4, platelet count 114. Sodium 143, potassium 3.9, BUN 12, creatinine 0.7. 03/15/2018 Patient was seen and examined this morning, feeling well overall. Early afternoon patient states he was up ambulating and became quite short of breath. Lungs are essentially clear. White blood cell count 6.8, hemoglobin 13.7, sodium 146, potassium 5.3, BUN 12, creatinine 0.7. Patient is currently on by mouth Lasix. We will repeat a chest x-ray as well as BNP level. Objective - Vital Signs Vital signs: Vital Signs Temp 99.2 F 03/15/18 11:33 Pulse 60 03/15/18 11:41 Resp 18 03/15/18 11:33 BP 134/83 03/15/18 11:33 Pulse Ox 98 03/15/18 11:33 Intake & Output 03/14/18 03/15/18 03/15/18 18:59 06:59 18:59 Intake Total 582 1100 240 Output Total 500 Balance 582 600 240 Weight 126 kg Intake: Intake, IV Titration 1100 Amount Sodium Chloride 0.9% 1, 600 000 ml @ 50 mls/hr IV . Q20H [facility] Rx#:[id number] Vancomycin 2,000 mg In 500 Sodium Chloride 0.9% 500 ml @ 167 mls/hr IVPB Q12HR [facility] Rx#:[id number] Oral 582 240 Output: Urine 500 Other: Voiding Method Urinal # Voids 1 - Exam PHYSICAL EXAMINATION: HEENT: Head is atraumatic, normocephalic. Pupils equal, round. Neck is supple. There is no elevated jugular venous pressure. HEART EXAMINATION: Heart S1, S2 normal. No murmur or gallop heard. CHEST EXAMINATION: Lungs are clear to auscultation and precussion. No chest wall tenderness is noted on palpation or with deep breathing. ABDOMEN: Soft, nontender. Bowel sounds are heard. No organomegaly noted. EXTREMITIES: 2+ peripheral pulses with evidence of bilateral peripheral edema, left lower extremity shows significant area of redness, no open areas noted. NEUROLOGIC patient is awake, alert and oriented -3. . - Labs CBC & Chem 7: 03/15/18 12:43 03/15/18 12:43 Labs: Abnormal Lab Results - Last 24 Hours (Table) 03/14/18 03/14/18 03/15/18 Range/Units 16:03 20:40 05:56 Sodium (137-145) mmol/L Potassium (3.5-5.1) mmol/L Glucose (74-99) mg/dL POC Glucose (mg/dL) 145 H 130 H 118 H (75-99) mg/dL 03/15/18 03/15/18 Range/Units 11:13 12:43 Sodium 146 H (137-145) mmol/L Potassium 5.3 H (3.5-5.1) mmol/L Glucose 156 H (74-99) mg/dL POC Glucose (mg/dL) 172 H (75-99) mg/dL Microbiology - Last 24 Hours (Table) 03/12/18 03:10 Blood Culture - Preliminary Blood No Growth after 72 hours Assessment and Plan Plan: Assessment and plan #1 left lower extremity redness and swelling with evidence of cellulitis. #2 chest tightness, intermittent, initial troponin 0.012. EKG shows normal sinus rhythm with nonspecific ST-T wave changes in the anterior lateral leads. #3 diabetes #4 hypertension # 5 hyperlipidemia #6 sleep apnea #7 prior TIA #8 history of melanoma #9 history of prior episode of cellulitis approximately 6 years ago secondary to MRSA. #10 strong family history of premature coronary artery disease. Plan From cardiology's perspective, we'll repeat a chest x-ray and obtain a BNP level. Patient continues to run intermittent fevers. Continue current medications. DNP note has been reviewed, I agree with a documented findings and plan of care. Patient was seen and examined.
[2018-03-15 16:36] LABS: Glucose,Whole Blood 114 mg/dL (75-99)
--- NOTE | 2018-03-15 18:54 | XR ---
EXAMINATION TYPE: XR chest 2V DATE OF EXAM: 03/15/2018 COMPARISON: 03/12/2018 HISTORY: Shortness of breath TECHNIQUE: Frontal and lateral views of the chest are obtained. FINDINGS: Scattered senescent parenchymal changes noted. Chronic elevation right hemidiaphragm. No evidence for infiltrate. No evidence for atelectasis. Heart size is stable. Mediastinal structures are stable and grossly unremarkable. No evidence for hilar prominence. Degenerative changes dorsal spine. IMPRESSION: 1. No evidence for acute pulmonary disease.
[2018-03-15 21:10] LABS: Glucose,Whole Blood 180 mg/dL (75-99)
[2018-03-16] MEDS: HYDROcodone/APAP 7.5-325MG 1 EACH TAB PO PRN (01:13)
[2018-03-16 05:56] LABS: Glucose,Whole Blood 110 mg/dL (75-99)
[2018-03-16] MEDS: PANTOPRAZOLE 40 MG TABLET PO SCH (06:47)
[2018-03-16] MEDS: ACETAMINOPHEN TAB 325 MG TAB PO PRN (06:53)
[2018-03-16] MEDS ORDERED: VANCOMYCIN TROUGH DUE 1 EACH MISC MISCELLANE ONE (08:00)
[2018-03-16 08:39] LABS: Anion Gap 13 mmol/L; Blood Urea Nitrogen 10 mg/dL (9-20); Calcium 8.4 mg/dL (8.4-10.2); Carbon Dioxide 24 mmol/L (22-30); Chloride 103 mmol/L (98-107); Glucose 208 mg/dL (74-99); Potassium 4.1 mmol/L (3.5-5.1); Sodium 140 mmol/L (137-145)
[2018-03-16] MEDS: INSULIN ASPART 100 UNIT/ML 1 ML 10 ML VIAL SQ SCH ×2 (09:00→12:03)
[2018-03-16] MEDS: FLUTICASONE 50MCG/SPRAY NASAL 16GM EA NOSTRIL SCH (09:03)
[2018-03-16] MEDS: ATORVASTATIN 40 MG TAB PO SCH (09:03)
[2018-03-16] MEDS: LOSARTAN 50 MG TAB PO SCH (09:04)
[2018-03-16] MEDS: MIRTAZAPINE 15 MG TAB PO SCH (09:04)
[2018-03-16] MEDS: METOPROLOL TARTRATE 50 MG TAB PO SCH (09:04)
[2018-03-16] MEDS: FUROSEMIDE 40 MG TAB PO SCH (09:04)
[2018-03-16] MEDS: HEPARIN SODIUM,PORCINE 5,000 UNIT/ML 1 ML VIAL SQ SCH (09:15)
[2018-03-16] MEDS: PREGABALIN 75 MG CAP PO SCH (09:16)
[2018-03-16] MEDS: traMADol 50 MG TAB PO PRN (09:16)
[2018-03-16] MEDS: VANCOMYCIN 2,000 MG in SODIUM CHLORIDE 0.9% 500 ML IVPB SCH (10:21)
[2018-03-16 11:33] LABS: Glucose,Whole Blood 180 mg/dL (75-99)
--- NOTE | 2018-03-16 13:05 | P.DS ---
Providers Date of admission: 03/12/18 01:45 Attending physician: Ingrid Osborne Consults: 03/12/18 02:27 Consult Physician Routine Consulting Provider: Laura Chan Consult Reason/Comments: cellulitis Do you want consulting provider notified?: Yes, Notify in am Placement Type Exists?: Yes 03/12/18 16:22 Consult Physician Routine Consulting Provider: Jessica Soriano Consult Reason/Comments: chest pain, family history heart disease Do you want consulting provider notified?: Already Contacted Primary care physician: Stated None Hospital Course: This is a pleasant 57 years old male with past medical history of DM on metformin, hyperlipidemia, hypertension, thyroid disorder, arthritis, history of MRSA infection , kidney stone and and 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 pt presents with left leg swelling and redness and tenderness of one-day duration With leukocytosis of 13.5 K and fever of 100.8 today on admission, patient was treated with antibiotic first with the clindamycin and cefazolin with partial improvement and then changed to vancomycin and patient showing significant improvement with no more fever in the last 48 hours, leukocytosis resolved and the WBC is 6.8 at normal, patient redness swelling and tenderness since his left leg is improved more than 50% and estimation. Venous Doppler of the lower extremities negative for DVT. Patient was cleared by ID team, with the recommendation to be discharged on doxycycline and Bactrim for 10 days lump in the clinic in 1 week, patient is informed with this plan and he verbalized understanding and agreement and also patient was complaining of from chest pain on admission, he has family history of early heart disease, 2 of his brothers are in their 50s with extensive heart disease, patient states that he had a heart cath about 15 years ago which shows only mitral valve disease. Patient currently denies any chest pain, no chest pain, no dizziness. Patient has been evaluated by acetone recovery worker, He has not had a stress test recently, does not follow with a acetone recovery worker in the office. Chest x-ray on admission here shows borderline cardiomegaly with mild vascular congestion. Venous duplex study negative for DVT within the left leg. Echocardiogram with Doppler study was performed which revealed an ejection fraction of 45-50%, basal inferior lateral hypokinesia noted. Patient was cleared by cardiology and recommended follow-up in the clinic in 2 weeks patient as to make appointment for him and he agrees with the appointments plans. On discharge patient was chest pain free and no dyspnea Patient was updated with the problems and management plan and he verbalized understanding and agreement Patient was cleared by cardiology and ID service team for discharge Patient is found stable and can be discharged home however he needs follow-up as an outpatient Physical exam Generalized, patient is a 8OX3, not in distress Lungs, B/L CTA CVS, S1, S2, RRR, no murmur Abdomen, soft, NT, M.D., positive bowel sounds Extremities no leg swelling, left leg is red and tender is improved significantly compared to the day of admission Neurologically, no confusion, motor exam is strong and symmetrical in all extremities, sensation is intact Time spent is more than 35 minutes Patient Condition at Discharge: Good Plan - Discharge Summary New Discharge Prescriptions: New Acetaminophen Tab [Tylenol] 650 mg PO Q6HR PRN tab PRN Reason: Fever And/ Or Pain Atorvastatin [Lipitor] 40 mg PO DAILY #30 tab Doxycycline [Vibramycin] 100 mg PO Q12HR #20 capsule Pantoprazole [Protonix] 40 mg PO AC-BRKFST #14 tablet. Sulfamethox-Tmp 800-160Mg [Bactrim DS 800-160 mg] 1 tab PO Q12HR #20 tab Continue Metoprolol Tartrate [Lopressor] 50 mg PO BID Losartan [Cozaar] 50 mg PO DAILY Pregabalin [Lyrica] 150 mg PO BID Mirtazapine 30 mg PO HS HYDROcodone/APAP 7.5-325MG [[place] 7.5-325] 1 tab PO Q6H PRN PRN Reason: Pain Furosemide [Lasix] 40 mg PO DAILY traMADol HCl [Ultram] 50 mg PO BID Fluticasone Nasal [place] [Flonase Nasal [place]] 1 spray EA NOSTRIL DAILY metFORMIN HCL [Glucophage] 500 mg PO BID Multivitamins, Thera [Multivitamin (formulary)] 1 tab PO DAILY Aspirin EC [Ecotrin Low Dose] 81 mg PO DAILY Discontinued Fluconazole [Diflucan] 100 mg PO DAILY Discharge Medication List Aspirin EC [Ecotrin Low Dose] 81 mg PO DAILY 03/12/18 [History] Fluticasone Nasal [place] [Flonase Nasal [place]] 1 spray EA NOSTRIL DAILY 03/12/18 [History] Furosemide [Lasix] 40 mg PO DAILY 03/12/18 [History] HYDROcodone/APAP 7.5-325MG [[place] 7.5-325] 1 tab PO Q6H PRN 03/12/18 [History] Losartan [Cozaar] 50 mg PO DAILY 03/12/18 [History] Metoprolol Tartrate [Lopressor] 50 mg PO BID 03/12/18 [History] Mirtazapine 30 mg PO HS 03/12/18 [History] Multivitamins, Thera [Multivitamin (formulary)] 1 tab PO DAILY 03/12/18 [History ] Pregabalin [Lyrica] 150 mg PO BID 03/12/18 [History] metFORMIN HCL [Glucophage] 500 mg PO BID 03/12/18 [History] traMADol HCl [Ultram] 50 mg PO BID 03/12/18 [History] Acetaminophen Tab [Tylenol] 650 mg PO Q6HR PRN tab 03/16/18 [Rx] Atorvastatin [Lipitor] 40 mg PO DAILY #30 tab 03/16/18 [Rx] Doxycycline [Vibramycin] 100 mg PO Q12HR #20 capsule 03/16/18 [Rx] Pantoprazole [Protonix] 40 mg PO AC-BRKFST #14 tablet.dr 03/16/18 [Rx] Sulfamethox-Tmp 800-160Mg [Bactrim DS 800-160 mg] 1 tab PO Q12HR #20 tab [Rx] Follow up Appointment(s)/Referral(s): Dionte Patino NPC [REFERRING] - 03/20/18 (Keep Tuesday appointment that you scheduled) Jessiac Soriano MD [STAFF PHYSICIAN] - 03/31/18 3:15 pm Laura Chan MD [STAFF PHYSICIAN] - 1 Week (For follow-up of her left leg cellulitis, please call to make an appointment in 1 week) Patient Instructions/Handouts: Cellulitis (DC) Activity/Diet/Wound Care/Special Instructions: We recommend cardiac diet, 1800 kcal Recommend activity as tolerated Discharge Disposition: HOME SELF-CARE
[2018-03-16 13:21] VITALS: RESP 16
[2018-03-16 13:23] VITALS: BP 144/83; PULSE 54; TEMP 97.3
--- NOTE | 2018-03-16 14:48 | PN ---
PROGRESS NOTE DATE OF SERVICE: 03/16/2018 REASON FOR FOLLOWUP: Left leg cellulitis. INTERVAL HISTORY: The patient is afebrile. He is currently breathing comfortably. Denies having any chest pain or shortness of breath or cough. Left leg pain, swelling has slightly improved, no diarrhea. PHYSICAL EXAMINATION: Blood pressure 176/86, pulse of 64, temperature 97.9, he is 97% on room air. General description is a middle-aged male up in the chair, in no distress RESPIRATORY SYSTEM: Unlabored breathing, clear to auscultation anteriorly. HEART: S1, S2. Regular rate and rhythm. ABDOMEN: Soft, no tenderness. Left leg swelling and redness has improved. The rash is not as warm to touch. LABS: BUN of 10, creatinine 0.62. DIAGNOSTIC IMPRESSION AND PLAN: Patient with acute left lower extremity cellulitis finally responding to the vancomycin, question of possible methicillin-resistant Staphylococcus aureus. Patient will be able to go home on oral doxycycline and Bactrim DS combination both b.i.d. for 10 days with close outpatient followup. Patient advised if any worsening swelling or redness on oral antibiotic to let us know right away. Plan of care discussed with the admitting physician. MMODL / IJN: [id number] /
--- NOTE | 2018-03-16 15:22 | P.PN ---
Subjective Progress Note Date: 03/16/18 This is a 57-year-old gentleman with history of hypertension, diabetes , hyperlipidemia, sleep apnea, history of melanoma ,nonsmoker, who presents to the hospital mainly with symptoms of increased redness and swelling to his left lower extremity, he states that approximately 6 years ago he had an infection in that leg and almost lost it. He started to notice similar discoloration and swelling to what he had previous and for this reason he came to the hospital for further evaluation according to the patient, he also states that on Tuesday off and on for the entire day he was experiencing chest pressure and heaviness. Patient did have a cardiac catheterization 15 years ago or so and was told to have normal coronaries with some mitral valvular issues. He has not had a stress test recently, does not follow with a digital marketing lead in the office. Chest x-ray on admission here shows borderline cardiomegaly with mild vascular congestion. Venous duplex study negative for DVT within the left leg. Echocardiogram with Doppler study was performed which revealed an ejection fraction of 45-50%, basal inferior lateral hypokinesia noted. Blood pressure 118/66, heart rate in the 70s, 93% on room air. Temperature 99.4 on arrival, subsequently 100.8. 101 last evening. Blood cultures have been sent. White blood cell count on admission 13.5, 9.5 this morning. Hemoglobin on admission 14.2, 12.9 this morning, platelet count 133, 125 this morning. Sodium 139, potassium 3.8, BUN 12, creatinine 0.8. Initial troponin 0.012. EKG shows normal sinus rhythm with incomplete right bundle subsequent EKG normal sinus rhythm incomplete right bundle branch block and nonspecific ST-T wave changes noted in the anterior lateral leads. At the time of my examination this morning , patient is currently chest pain-free, breathing is stable. 03/14/2018 Patient seen and examined this morning, continue to have intermittent fevers. Denies any chest discomfort in breathing overall has been stable. Continues to have significant swelling in his left lower extremity with evidence of cellulitis. His white blood cell count is normal, hemoglobin 12.4, platelet count 114. Sodium 143, potassium 3.9, BUN 12, creatinine 0.7. 03/15/2018 Patient was seen and examined this morning, feeling well overall. Early afternoon patient states he was up ambulating and became quite short of breath. Lungs are essentially clear. White blood cell count 6.8, hemoglobin 13.7, sodium 146, potassium 5.3, BUN 12, creatinine 0.7. Patient is currently on by mouth Lasix. We will repeat a chest x-ray as well as BNP level. 03/16/2018 Patient seen and examined this morning, feeling significantly better overall, breathing is stable. His right lower extremity is healing up quite nicely as well. Hemodynamically he is stable Objective - Vital Signs Vital signs: Vital Signs Temp 97.3 F L 03/16/18 12:30 Pulse 54 L 03/16/18 12:30 Resp 16 03/16/18 12:30 BP 144/83 03/16/18 12:30 Pulse Ox 98 03/16/18 12:30 Intake & Output 03/15/18 03/16/18 03/16/18 18:59 06:59 18:59 Intake Total 462 444 Output Total 850 1750 Balance 462 -850 -1306 Weight 125.4 kg Intake: Oral 462 444 Output: Urine 850 1750 Other: Voiding Method Urinal Urinal # Voids 1 - Exam PHYSICAL EXAMINATION: HEENT: Head is atraumatic, normocephalic. Pupils equal, round. Neck is supple. There is no elevated jugular venous pressure. HEART EXAMINATION: Heart S1, S2 normal. No murmur or gallop heard. CHEST EXAMINATION: Lungs are clear to auscultation and precussion. No chest wall tenderness is noted on palpation or with deep breathing. ABDOMEN: Soft, nontender. Bowel sounds are heard. No organomegaly noted. EXTREMITIES: 2+ peripheral pulses with evidence of bilateral peripheral edema, left lower extremity shows significant area of redness, no open areas noted. NEUROLOGIC patient is awake, alert and oriented -3. . - Labs CBC & Chem 7: 03/15/18 12:43 03/16/18 08:12 Labs: Abnormal Lab Results - Last 24 Hours (Table) 03/15/18 03/15/18 03/16/18 Range/Units 16:34 21:08 05:55 Creatinine (0.66-1.25) mg/dL Glucose (74-99) mg/dL POC Glucose (mg/dL) 114 H 180 H 110 H (75-99) mg/dL 03/16/18 03/16/18 Range/Units 08:12 11:32 Creatinine 0.62 L (0.66-1.25) mg/dL Glucose 208 H (74-99) mg/dL POC Glucose (mg/dL) 180 H (75-99) mg/dL Microbiology - Last 24 Hours (Table) 03/12/18 03:10 Blood Culture - Preliminary Blood No Growth after 96 hours Assessment and Plan Plan: Assessment and plan #1 left lower extremity redness and swelling with evidence of cellulitis. #2 chest tightness, intermittent, initial troponin 0.012. EKG shows normal sinus rhythm with nonspecific ST-T wave changes in the anterior lateral leads. #3 diabetes #4 hypertension # 5 hyperlipidemia #6 sleep apnea #7 prior TIA #8 history of melanoma #9 history of prior episode of cellulitis approximately 6 years ago secondary to MRSA. #10 strong family history of premature coronary artery disease. Plan Repeat chest x-ray this morning did show no evidence for acute pulmonary disease. Cardiology's perspective, patient may be able to be discharged home today. We will make him a follow-up appointment to see Dr. Soriano in the office post discharge. DNP note has been reviewed, I agree with a documented findings and plan of care. Patient was seen and examined.
--- NOTE | 2018-03-17 12:56 | CDI ---
Last Revision, September 2017 Documentation Clarification Form Date: 03/17/18 From: Elza Conway Phone: If you have a question regarding this query, please contact Solange Suarez at [phone] between 8am and 5pm. Admit Date: 03/12/2018 1:45:00 AM Patient Name: Sarmad Ratliff Visit Number: [id number] Discharge Date: 03/16/18 ATTENTION: The Clinical Documentation Specialists (CDI) and [facility] Coding Staff appreciate your assistance in clarifying documentation. Please respond to the clarification below the line at the bottom and electronically sign. The CDI & [facility] Coding staff will review the response and follow-up if needed. Please note: Queries are made part of the Legal Health Record. If you have any questions, please contact the author of this message via ITS. Dr. Reid E Sheet Patient with sepsis, source is the left lower extremity cellulitis is documented in Dr. Chan's consult note but it isn't documented in the discharge summary. History/Risk Factors: Patient was admitted with celllulitis of the left lower extremity. Clinical Indicators: Fever and elevated white count. WBC/Left Shift: 13.5/12.0 Lactic acid: 2.3 Blood cultures: No growth after 120 hours Vitals signs on admission: T. 99.4 on admission then up to 100.4 a few hours later, P. 77, R. 18, BP 124/63 Treatment: Antibiotics: IV Clindamycin, IV Zosyn, IV Vancomycin In your professional opinion, please clarify if these findings signify one of the following conditions: Sepsis ruled out SIRS, without underlying infectious process Sepsis Severe Sepsis Septic Shock Other, please specify Unable to determine Present on Admission: Yes No Identify the (suspected) organism Link or clarify if there is associated (due to/with): Organ failure Shock pt has -SIRS, with underlying infectious process, cellultitis MTDD
== END 2018-03-16 16:30 | disposition home or self-care (01) | DRG 603 ==
LOC: 6SEL 03-12 01:45
PROVIDERS: ADMIT Hospitalist; ATTEND Hospitalist
DX: L03.116 Cellulitis of left lower limb (principal); B35.3 Tinea pedis; E11.40 Type 2 diabetes mellitus with diabetic neuropathy, unspecified; E78.5 Hyperlipidemia, unspecified; F32.9 Major depressive disorder, single episode, unspecified; F41.9 Anxiety disorder, unspecified; G47.30 Sleep apnea, unspecified; I05.9 Rheumatic mitral valve disease, unspecified; I10 Essential (primary) hypertension; I45.10 Unspecified right bundle-branch block; E07.9 Disorder of thyroid, unspecified; M19.90 Unspecified osteoarthritis, unspecified site; R07.89 Other chest pain; E86.0 Dehydration; Z79.899 Other long term (current) drug therapy; Z79.82 Long term (current) use of aspirin; Z79.84 Long term (current) use of oral hypoglycemic drugs; Z79.891 Long term (current) use of opiate analgesic; Z88.8 Allergy status to other drugs, medicaments and biological substances; Z87.442 Personal history of urinary calculi; Z86.73 Personal history of transient ischemic attack (TIA), and cerebral infarction without residual deficits; Z86.14 Personal history of Methicillin resistant Staphylococcus aureus infection; Z85.820 Personal history of malignant melanoma of skin; Z83.3 Family history of diabetes mellitus; Z82.49 Family history of ischemic heart disease and other diseases of the circulatory system; Z82.3 Family history of stroke
CPT/HCPCS: 71046; 71275; 80048; 80202; 81003; 83036; 83605; 83880; 84484; 85025; 85379; 87040; 93306

== ENCOUNTER → 2018-04-14 | Day surgery (SDC) | payer BC ==
[2018-04-10 14:47] VITALS: BMI 41.0
[~2018-04-14] MED LIST: ALPRAZolam 0.25 MG TAB PO PRN; ALPRAZolam 0.5 MG TAB PO PRN; HEPARIN SODIUM 1,000 UN/ML (10ML VL) ONE; IOPAMIDOL-370 125ML BTL INJ ONE; LIDOCAINE 2% INJ 20 MG/ML SQ ONE; MIDAZOLAM 2 MG/2 ML VIAL IV ONE; MIDAZOLAM 2 MG/2 ML VIAL ONE; NITROGLYCERIN SL TABS 0.4 MG TAB SUBLINGUAL PRN; RX INFO: IV CONTRAST WAS GIVEN 1 EACH MISC MISCELLANE PRN; SODIUM CHLORIDE 0.9% 1,000 ML IV SCH; SODIUM CHLORIDE 0.9% 1,000 ML in EMPTY BAG 1 BAG IV ONE; VERAPAMIL 2.5 MG/ML 2 ML AMP ONE; VERAPAMIL SYRINGE (5 MG/10 ML) INTRAARTER ONE; fentaNYL (PF) 50 MCG/ML 2 ML AMP IV ONE; fentaNYL (PF) 50 MCG/ML 2 ML AMP ONE
[2018-04-14 11:07] VITALS: RESP 18; TEMP 98.7
[2018-04-14 11:16] LABS: Glucose,Whole Blood 171 mg/dL (75-99)
--- NOTE | 2018-04-14 12:20 | P.PCN ---
Date of Procedure: 04/14/18 Preoperative Diagnosis: Chest pain and abnormal LV function Postoperative Diagnosis: Normal coronary arteries. Normal LV function Description of Procedure: HISTORY: This is a 57-year-old gentleman with strong family history of ischemic heart disease who was recently admitted to the hospital with shortness of breath and echo findings size to of hypokinesis of the inferior wall. Patient wanted to have cardiac catheterization to rule out any underlying ischemic heart disease. CONSENT:I have discussed the risks, benefits and alternative therapies for the above-mentioned procedure and for both sedation/analgesia as well as necessary blood product administration, if indicated, as they pertain to this patient. The patient has indicated understanding and acceptance of the risks and procedures discussed. PROCEDURE: Patient was brought to the lab in a fasting state. Patient was given some IV sedation. The right Wrist is infiltrated with lidocaine and right Radialartery was entered using Seldinger technique. A 6-Polish catheter was left in place and selective coronary arteriography and left ventriculography was performed. Patient tolerated the procedure well. TR band was applied for hemostasis. No immediate complications were noted and patient was transferred to [facility] in a stable condition Conscious Sedation: Versed 2mg Fentanyl 50 g Duration 30 minutes HEMODYNAMICS: Aortic pressure is about 100/60. Left ankle end-diastolic pressure is about 20. There was no gradient across the aortic valve SELECTIVE CORONARY ARTERIOGRAPHY: LEFT MAIN: Normal length and patent THE LEFT ANTERIOR DESCENDING CORONARY ARTERY: This is a good caliber vessel giving rise to good caliber diagonal branch. The LAD and branches are free of occlusive disease THE LEFT CIRCUMFLEX AND IS CORONARY ARTERY: This is a dominant vessel and good-sized size, giving rise good-sized OM branch and PLV branches. The circumflex and is coronary artery and branches are free of occlusive disease THE RIGHT CORONARY ARTERY: This is small nondominant vessel and free of occlusive disease LEFT VENTRICULOGRAPHY:This revealed normal-sized cardiac silhouette with good systolic function without any focal abnormalities. FINAL IMPRESSION: Normal coronary arteries. Normal LV function. Elevated end- diastolic pressure suggestive of diastolic dysfunction PLAN: Maximum medical therapy and this factor modification PROGNOSIS: Good
[2018-04-14 15:57] VITALS: BP 124/82; PULSE 54
== END | disposition home or self-care (01) ==
LOC: CATHCVL 10:11
PROVIDERS: ATTEND Internal Medicine Cardiovascular Disease
DX: R93.1 Abnormal findings on diagnostic imaging of heart and coronary circulation (principal); I10 Essential (primary) hypertension; E78.00 Pure hypercholesterolemia, unspecified; E11.9 Type 2 diabetes mellitus without complications; E66.9 Obesity, unspecified; Z68.41 Body mass index [BMI] 40.0-44.9, adult; Z82.49 Family history of ischemic heart disease and other diseases of the circulatory system; Z79.84 Long term (current) use of oral hypoglycemic drugs; Z79.82 Long term (current) use of aspirin; Z79.51 Long term (current) use of inhaled steroids; Z79.899 Other long term (current) drug therapy
CPT/HCPCS: 93458; C1894; C1769; J2001; J2250; J3010; J1644; Q9967

== ENCOUNTER 2018-07-30 22:14 | Inpatient (IN) | payer BC ==
[2018-07-30] MEDS ORDERED: SODIUM CHLORIDE 0.9% 1,000 ML IV STA (23:15)
[2018-07-30] MEDS ORDERED: VANCOMYCIN IV PER PHARMACY 1 EACH MISC MISCELLANE PRN (23:15)
--- NOTE | 2018-07-30 23:21 | ED ---
Skin/Abscess/FB HPI - General Source: patient, RN notes reviewed Mode of arrival: ambulatory Limitations: no limitations <Beverly Ugarte - Last Filed: 07/31/18 00:01> <Sarmad Chester - Last Filed: 08/01/18 08:29> - General Chief complaint: Skin/Abscess/Foreign Body Stated complaint: Rash Time Seen by Provider: 07/30/18 22:32 - History of Present Illness Initial comments: This is a 57-year-old male who presents to the emergency department with chief complaint of rash. Patient states on Tuesday he developed a small pustular lesion at to the back of his left thigh. He states that initially he believed he was bit by a spider so was applying hydrocortisone cream. Patient states he woke up yesterday and had another lesion on his left leg. Since that time, he has developed pustular lesions on his buttocks, abdomen and left arm. Patient reports a history of MRSA. He has extensive medical history which includes melanoma, diabetes and TIAs. He denies any fevers or chills, chest pain or shortness of breath, abdominal pain, nausea or vomiting. (Beverly Ugarte) - Related Data Home Medications Medication Instructions Recorded Confirmed Furosemide [Lasix] 40 mg PO DAILY 03/12/18 07/31/18 Losartan [Cozaar] 50 mg PO DAILY 03/12/18 07/31/18 Metoprolol Tartrate [Lopressor] 50 mg PO BID 03/12/18 07/31/18 DULoxetine HCL [Cymbalta] 40 mg PO DAILY 07/31/18 07/31/18 HYDROcodone/APAP 5-325MG [Waterman 1 tab PO Q6HR PRN 07/31/18 07/31/18 5-325] Neurx-Tf 1 tab PO BID 07/31/18 07/31/18 Nortriptyline HCl [Pamelor] 10 mg PO HS 07/31/18 07/31/18 Pregabalin [Lyrica] 200 mg PO BID 07/31/18 07/31/18 metFORMIN HCL 1,000 mg PO BID 07/31/18 07/31/18 Allergies Allergy/AdvReac Type Severity Reaction Status Date / Time gabapentin [From Neurontin] AdvReac EXCESSIVE Verified 07/31/18 09:19 SWEATING Review of Systems ROS Other: All systems not noted in ROS Statement are negative. <Beverly Ugarte - Last Filed: 07/31/18 00:01> ROS Other: All systems not noted in ROS Statement are negative. <Sarmad Chester - Last Filed: 08/01/18 08:29> ROS Statement: Those systems with pertinent positive or pertinent negative responses have been documented in the HPI. Past Medical History Past Medical History: Cancer, CVA/TIA, Diabetes Mellitus, Hyperlipidemia, Prostate Disorder, Rheumatoid Arthritis (RA), Sleep Apnea/CPAP/BIPAP Additional Past Medical History / Comment(s): melanoma stage III, see Dr Soriano H&P, TIA x 2- no effects, no cpap used- sleep apnea surgically corrected, cellulitis left leg 02/2018, gout, History of Any Multi-Drug Resistant Organisms: MRSA Date of last positivie culture/infection: 2007 MDRO Source:: back Past Surgical History: Heart Catheterization, Orthopedic Surgery, Prostate Surgery, Tonsillectomy Additional Past Surgical History / Comment(s): neck dissection to remove 60 lymph nodes, surgery for sleep apnea and deviated septum, arthroscopy rt knee, melanoma removed from face Past Anesthesia/Blood Transfusion Reactions: Previous Problems w/ Anesthesia Additional Past Anesthesia/Blood Transfusion Reaction / Comment(s): hard to wake up out of anestheia Past Psychological History: No Psychological Hx Reported Smoking Status: Never smoker - Past Family History Father Family Medical History: Coronary Artery Disease (CAD) Mother Family Medical History: No Reported History Brother(s) Family Medical History: Diabetes Mellitus <Beverly Ugarte - Last Filed: 07/31/18 00:01> General Exam Limitations: no limitations <Beverly Ugarte - Last Filed: 07/31/18 00:01> <Sarmad Chester - Last Filed: 08/01/18 08:29> - General Exam Comments Initial Comments: General: Awake and alert, well-developed; in no apparent distress. and daughter are at bedside. HEENT: Head atraumatic, normocephalic. Pupils are equal, round and reactive to light. Extraocular movements intact. Oropharynx moist without erythema or exudate. Neck: Supple. Normal ROM. Cardiovascular: Regular rate and rhythm. No murmurs, rubs or gallops. Chest symmetrical. Pedal pulses are 2+ equal and palpable bilaterally. Respiratory: Lungs clear to auscultation bilaterally. No wheezes, rales or rhonchi. Normal respiratory effort with no use of accessory muscles. Musculoskeletal: Normal ROM, no tenderness bilateral upper and lower extremities. Ambulating normally. Skin: Approximately 4.0 cm in diameter area of erythematous induration with surrounding erythema and a central open papule with serous drainage posterior left thigh. Small pustular lesion with surrounding erythema right distal anterior thigh. One discrete pustular lesion left upper arm. Neurological: Alert and oriented x3. CN II-XII grossly intact. Speech is fluent and answers are appropriate. No focal neuro deficits. Psychiatric: Normal mood and affect. No overt signs of depression or anxiety noted. (Beverly Ugarte) Vital Signs 07/30/18 07/31/18 22:23 00:10 Temperature 98.6 F Pulse Rate 78 77 Respiratory 16 18 Rate Blood Pressure 141/87 140/67 O2 Sat by Pulse 98 98 Oximetry Medical Decision Making - Lab Data Result diagrams: 07/30/18 23:02 07/30/18 23:02 <Beverly Ugarte - Last Filed: 07/31/18 00:01> - Lab Data Result diagrams: 07/30/18 23:02 07/30/18 23:02 <Sarmad Chester - Last Filed: 08/01/18 08:29> - Medical Decision Making This is a 57-year-old male who presents to the emergency department with chief complaint of rash. Patient has multiple lesions that started off as pustules and have ruptured into cellulitis. The largest is on the left posterior thigh. Case has been discussed with Dr. Chester, who also evaluated the patient. Labs are drawn. CBC reveals a white blood cell count at 11.6. Lactic acid is 2.5. Blood cultures are pending. Patient started Rocephin and vancomycin, patient does have a history of MRSA. Patient will be admitted to Dr. Russo. He is in agreement for admission. His vital signs have been stable and he is in no acute distress. (Beverly Ugarte) I saw this patient in conjunction with the physician lead recreation assistant. I performed independent history and physical exam. Agree with case management. (Sarmad Chester) - Lab Data Lab Results 09/30/18 09/30/18 09/30/18 Range/Units 23:02 23:02 23:02 WBC 11.6 H (3.8-10.6) k/uL RBC 4.54 (4.30-5.90) m/uL Hgb 13.9 (13.0-17.5) gm/dL Hct 42.8 (39.0-53.0) % MCV 94.4 (80.0-100.0) fL MCH 30.6 (25.0-35.0) pg MCHC 32.4 (31.0-37.0) g/dL RDW 12.9 (11.5-15.5) % Plt Count 203 (150-450) k/uL Neutrophils % 69 % Lymphocytes % 18 % Monocytes % 9 % Eosinophils % 1 % Basophils % 1 % Neutrophils # 8.0 H (1.3-7.7) k/uL Lymphocytes # 2.1 (1.0-4.8) k/uL Monocytes # 1.0 (0-1.0) k/uL Eosinophils # 0.1 (0-0.7) k/uL Basophils # 0.1 (0-0.2) k/uL Sodium 139 (137-145) mmol/L Potassium 3.7 (3.5-5.1) mmol/L Chloride 103 (98-107) mmol/L Carbon Dioxide 23 (22-30) mmol/L Anion Gap 13 mmol/L BUN 11 (9-20) mg/dL Creatinine 0.68 (0.66-1.25) mg/dL Est GFR (CKD-EPI)AfAm >90 (>60 ml/min/1.73 sqM) Est GFR (CKD-EPI)NonAf >90 (>60 ml/min/1.73 sqM) Glucose 213 H (74-99) mg/dL POC Glucose (mg/dL) (75-99) mg/dL POC Glu Electroencephalographic Technician ID Estimated Ave Glu mg/dL Hemoglobin A1c (4.0-6.0) % Lactic Ac Sepsis Rflx Plasma Lactic Acid Manuel 2.5 H* (0.7-2.0) mmol/L Calcium 9.4 (8.4-10.2) mg/dL Total Bilirubin 1.1 (0.2-1.3) mg/dL AST 27 (17-59) U/L ALT 51 (21-72) U/L Alkaline Phosphatase 86 (38-126) U/L Total Protein 7.3 (6.3-8.2) g/dL Albumin 4.5 (3.5-5.0) g/dL 07/30/18 07/30/18 07/31/18 Range/Units 23:02 23:58 03:05 WBC (3.8-10.6) k/uL RBC (4.30-5.90) m/uL Hgb (13.0-17.5) gm/dL Hct (39.0-53.0) % MCV (80.0-100.0) fL MCH (25.0-35.0) pg MCHC (31.0-37.0) g/dL RDW (11.5-15.5) % Plt Count (150-450) k/uL Neutrophils % % Lymphocytes % % Monocytes % % Eosinophils % % Basophils % % Neutrophils # (1.3-7.7) k/uL Lymphocytes # (1.0-4.8) k/uL Monocytes # (0-1.0) k/uL Eosinophils # (0-0.7) k/uL Basophils # (0-0.2) k/uL Sodium (137-145) mmol/L Potassium (3.5-5.1) mmol/L Chloride (98-107) mmol/L Carbon Dioxide (22-30) mmol/L Anion Gap mmol/L BUN (9-20) mg/dL Creatinine (0.66-1.25) mg/dL Est GFR (CKD-EPI)AfAm (>60 ml/min/1.73 sqM) Est GFR (CKD-EPI)NonAf (>60 ml/min/1.73 sqM) Glucose (74-99) mg/dL POC Glucose (mg/dL) (75-99) mg/dL POC Glu Electroencephalographic Technician ID Estimated Ave Glu mg/dL 194 Hemoglobin A1c 8.4 H (4.0-6.0) % Lactic Ac Sepsis Rflx Y Plasma Lactic Acid Manuel 1.0 (0.7-2.0) mmol/L Calcium (8.4-10.2) mg/dL Total Bilirubin (0.2-1.3) mg/dL AST (17-59) U/L ALT (21-72) U/L Alkaline Phosphatase (38-126) U/L Total Protein (6.3-8.2) g/dL Albumin (3.5-5.0) g/dL 07/31/18 07/31/18 Range/Units 06:56 12:16 WBC (3.8-10.6) k/uL RBC (4.30-5.90) m/uL Hgb (13.0-17.5) gm/dL Hct (39.0-53.0) % MCV (80.0-100.0) fL MCH (25.0-35.0) pg MCHC (31.0-37.0) g/dL RDW (11.5-15.5) % Plt Count (150-450) k/uL Neutrophils % % Lymphocytes % % Monocytes % % Eosinophils % % Basophils % % Neutrophils # (1.3-7.7) k/uL Lymphocytes # (1.0-4.8) k/uL Monocytes # (0-1.0) k/uL Eosinophils # (0-0.7) k/uL Basophils # (0-0.2) k/uL Sodium (137-145) mmol/L Potassium (3.5-5.1) mmol/L Chloride (98-107) mmol/L Carbon Dioxide (22-30) mmol/L Anion Gap mmol/L BUN (9-20) mg/dL Creatinine (0.66-1.25) mg/dL Est GFR (CKD-EPI)AfAm (>60 ml/min/1.73 sqM) Est GFR (CKD-EPI)NonAf (>60 ml/min/1.73 sqM) Glucose (74-99) mg/dL POC Glucose (mg/dL) 184 H 115 H (75-99) mg/dL POC Glu Electroencephalographic Technician Dayanara Kam Cheryl [address] Glu mg/dL Hemoglobin A1c (4.0-6.0) % Lactic Ac Sepsis Rflx Plasma Lactic Acid Manuel (0.7-2.0) mmol/L Calcium (8.4-10.2) mg/dL Total Bilirubin (0.2-1.3) mg/dL AST (17-59) U/L ALT (21-72) U/L Alkaline Phosphatase (38-126) U/L Total Protein (6.3-8.2) g/dL Albumin (3.5-5.0) g/dL Disposition Is patient prescribed a controlled substance at d/c from ED?: No Time of Disposition: 23:52 <Beverly Ugarte - Last Filed: 07/31/18 00:01> <Sarmad Chester - Last Filed: 08/01/18 08:29> Clinical Impression: Cellulitis, Abscess of skin or subcutaneous tissue Disposition: ADMITTED IP TO THIS HOSP Condition: Good
[2018-07-30 23:39] LABS: Basophils # (A) 0.1 k/uL (0-0.2); Basophils % (A) 1 %; Eosinophils # (A) 0.1 k/uL (0-0.7); Eosinophils % (A) 1 %; HCT 42.8 % (39.0-53.0); HGB 13.9 gm/dL (13.0-17.5); Lymphocytes # (A) 2.1 k/uL (1.0-4.8); Lymphocytes % (A) 18 %; MCH 30.6 pg (25.0-35.0); MCHC 32.4 g/dL (31.0-37.0); MCV 94.4 fL (80.0-100.0); Mean Platelet Volume 7.9; Monocytes % (A) 9 %; Neutrophils % (A) 69 %; Platelet Count 203 k/uL (150-450); RBC 4.54 m/uL (4.30-5.90); RDW 12.9 % (11.5-15.5); WBC 11.6 k/uL (3.8-10.6)
[2018-07-30] MEDS ORDERED: VANCOMYCIN 2,000 MG in SODIUM CHLORIDE 0.9% 500 ML IVPB ONE (23:45)
[2018-07-30] MEDS ORDERED: ACETAMINOPHEN TAB 325 MG TAB PO PRN (23:49)
[2018-07-30 23:52] LABS: ALT 51 U/L (21-72); AST 27 U/L (17-59); Albumin 4.5 g/dL (3.5-5.0); Alkaline Phosphatase 86 U/L (38-126); Anion Gap 13 mmol/L; Blood Urea Nitrogen 11 mg/dL (9-20); Calcium 9.4 mg/dL (8.4-10.2); Carbon Dioxide 23 mmol/L (22-30); Chloride 103 mmol/L (98-107); Glucose 213 mg/dL (74-99); Potassium 3.7 mmol/L (3.5-5.1); Sodium 139 mmol/L (137-145); Total Bilirubin 1.1 mg/dL (0.2-1.3); Total Protein 7.3 g/dL (6.3-8.2)
[2018-07-31] MEDS: HYDROcodone/APAP 7.5-325MG 1 EACH TAB PO PRN ×4 (00:15→18:04)
[2018-07-31 07:02] LABS: Glucose,Whole Blood 184 mg/dL (75-99)
[2018-07-31] MEDS: VANCOMYCIN 2,000 MG in SODIUM CHLORIDE 0.9% 500 ML IVPB SCH (11:25)
[2018-07-31 12:18] LABS: Glucose,Whole Blood 115 mg/dL (75-99)
[2018-07-31] MEDS: PREGABALIN 100 MG CAP PO SCH ×2 (12:39→21:37)
[2018-07-31] MEDS: DULoxetine HCL 20 MG CAPSULE.DR PO SCH (12:40)
[2018-07-31] MEDS: FUROSEMIDE 40 MG TAB PO SCH (12:43)
[2018-07-31] MEDS: metFORMIN 500 MG TAB PO SCH ×2 (12:44→21:35)
[2018-07-31] MEDS: LOSARTAN 50 MG TAB PO SCH (12:44)
[2018-07-31] MEDS: METOPROLOL TARTRATE 50 MG TAB PO SCH ×2 (12:45→21:35)
[2018-07-31 17:25] LABS: Glucose,Whole Blood 154 mg/dL (75-99)
--- NOTE | 2018-07-31 18:49 | HP ---
HISTORY AND PHYSICAL DATE OF SERVICE: 07/31/2018. PRESENT COMPLAINT: Multiple skin abscess. HISTORY OF PRESENTING COMPLAINT: This is a pleasant 57-year-old patient whose chronic stable medical conditions include diabetes, hypertension, hyperlipidemia, rheumatoid arthritis, osteoarthritis, kidney stones, peripheral neuropathy, gout. The patient has had previous MRSA infection. The patient started up with infection of the back of the left thigh and then he started having other areas of small abscesses in the upper extremity, lower extremity, also in the buttock area. The one on the back has grown rather large. The patient has had some fevers. This progressed over the course of the last 4 to 5 days. Hence he decided to come in. The patient a few months ago did have a cardiac catheterization and was found to have normal coronaries as the echo had showed some wall motion abnormality. Blood cultures done in the ER. The patient is started on IV vancomycin and ceftriaxone. REVIEW OF SYSTEMS: CONSTITUTIONAL: Tired. HEENT: None. CARDIOVASCULAR: None. GASTROINTESTINAL none. GENITOURINARY none. MUSCULOSKELETAL: Arthritic pain in many joints. DERMATOLOGICAL as above. LYMPHATICS none. PSYCHIATRY none. NEUROLOGICAL: Numbness and tingling in hands and feet. PAST MEDICAL HISTORY: Of diabetes, hypertension, hyperlipidemia, osteoarthritis, kidney stone, obstructive sleep apnea, treated with surgery, TIA x2, gout, peripheral neuropathy with melanoma on the right side of the face. PAST SURGICAL HISTORY: Adenoidectomy, cardiac catheterization showing normal coronaries, prostate surgery, tonsillectomy, multiple removed, melanoma, UVPP surgery for DNS, arthroscopy right knee. Cardiac catheterization in March of 2018 showing normal coronaries, TURP. Also MRSA infection removed from the back. SOCIAL HISTORY: Lives with his girlfriend. The patient is now on social security. He used to work previously at [employer]. No smoking, or alcohol. FAMILY HISTORY: Father of a heart attack age of 40. HOME MEDICATIONS: 1. Metformin 1000 mg p.o. b.i.d. 2. Lyrica 200 mg p.o. b.i.d. 3. tablet p.o. b.i.d. 4. Lopressor 50 mg p.o. b.i.d. 5. Cozaar 50 mg p.o. daily. 6. [place] 5 one tablet q.6h p.r.n. 7. Lasix 40 mg p.o. daily. 8. Cymbalta 40 mg p.o. daily. 9. Pamelor 10 mg p.o. q.h.s. ALLERGY: TO NEURONTIN. PHYSICAL EXAMINATION: VITAL SIGNS: Vital signs on presentation, temperature 98.6, pulse 72, respirations 16, blood pressure 114/87, pulse ox 98% on room air. GENERAL APPEARANCE: Well built, BMI 41.1. Sitting up, awake. EYES: Pupils are equal. Conjunctivae normal. HEENT: External appearance of nose and ears normal. Oral cavity normal. NECK: JVD not raised. Mass not palpable. RESPIRATORY effort normal. LUNGS are clear. CARDIOVASCULAR: First and second sounds normal. No edema. ABDOMEN: Soft, nontender. Liver and spleen not palpable. LYMPHATICS: No lymph nodes palpable in the neck and axillae. PSYCHIATRY: Alert and oriented times three. Mood and affect normal. NEUROLOGICAL: Pupils equal. Cranial nerves grossly intact. Power and sensation grossly intact. DERMATOLOGICAL: One large abscess on the back of the thigh. Other ones are present on his hand. Lower extremities . INVESTIGATIONS: White count 11.6, hemoglobin 13.9, potassium 3.7, BUN and creatinine is normal. ASSESSMENT: 1. This is a patient with multiple areas of abscess, large one being on the left thigh posteriorly which may need to be drained and the patient has previously had MRSA, already started on vancomycin. 2. Diabetes mellitus type 2 on oral hypoglycemic. 3. Essential hypertension. 4. Hyperlipidemia. 5. Primary osteoarthritis. 6. Peripheral neuropathy secondary to diabetes. 7. Chronic gout. PLAN: Patient is started on IV vancomycin and ceftriaxone. Start the patient on IV fluids. Consultations made to ID and General surgery for I and D. Lovenox will be given for DVT prophylaxis. We will do skin marking of the lesions. MMODL / IJN: [id number] /
[2018-07-31 20:32] LABS: Glucose,Whole Blood 142 mg/dL (75-99)
[2018-07-31 21:02] LABS: Hemoglobin A1C 8.4 % (4.0-6.0)
[2018-07-31] MEDS: IBUPROFEN 400 MG TAB PO PRN (21:34)
[2018-07-31] MEDS: NORTRIPTYLINE 10 MG CAP PO SCH (21:35)
--- NOTE | 2018-07-31 23:16 | CONS ---
CONSULTATION DATE OF SERVICE: 07/31/2018. REASON FOR CONSULTATION: Multiple skin abscess. HISTORY OF PRESENT ILLNESS: The patient is a 57 -year-old male who presented with history of MRSA skin and soft tissue infection, presented to the ER with a pustular lesion to his thigh and gluteal area. Apparently symptoms started on Tuesday that is 3 days prior to presentation to the hospital. The main 1 is on the left thigh area that has gotten bigger in size. Initially thought it was a spider bite. The patient applying some hydrocortisone cream without any improvement. The pain to the left thigh area swelling and redness is throbbing with intensity about 6 to 7/10, and no radiation. No significant drainage from it. The patient did have some chills but denies any high- grade fever. With these symptoms, patient has been evaluated by the ER physician, diagnosed with cellulitis/abscess and was started on vancomycin, Rocephin and admitted to the hospital. Infectious Disease was consulted for further recommendation regarding antibiotic therapy. Since the patient has been in the hospital, no high-grade fever has been noticed. His white count is slightly elevated at 11.6, lactic acid elevated at 2.5. He did have blood cultures obtained, currently pending. No cultures were obtained from the abscess area. REVIEW OF SYSTEMS: CONSTITUTIONAL: Positive for weakness and some chills. No high-grade fever. EYES: No complaint. ENT no complaint. Respiratory no complaint. Cardiovascular no complaint. Genitourinary no complaint. Gastrointestinal: No complaint. MUSCULOSKELETAL: No complaint. Integumentary: As per HPI. Psychological: No complaint. Endocrine no complaint. Neurologic no complaint. PAST MEDICAL HISTORY: Significant for CVA, TIA and diabetes mellitus, hypertension, hyperlipidemia, sleep apnea, melanoma and history of cellulitis secondary to MRSA. PAST SURGICAL HISTORY: Heart catheterization, prostate surgery and right shoulder surgery. SOCIAL HISTORY: The patient denies smoking, drinking, or drug use. FAMILY HISTORY: Mother with history of heart disease, CVA, TIA and diabetes. Father with history of heart disease. ALLERGIES: TO GABAPENTIN. MEDICATION: Medications include the patient is currently on Tylenol, [place], Rocephin, Cymbalta, Lasix, Motrin. Cozaar, Glucophage, Lopressor, Pamelor, Lyrica, vancomycin 2 q.12. EXAMINATION: Blood pressure is 141/77 with a pulse of 61, temperature 98.6. He is 95% on room air. General description is a middle-aged male lying in bed in no distress. No tachypnea or accessory muscles of respiration use. HEENT: Shows no pallor or scleral icterus. Oral mucosa membranes are dry. No pharyngeal erythema or thrush. NECK: Trachea central. No thyromegaly. LUNGS: Unlabored breathing. Clear to auscultation anteriorly. No wheeze or crackles. Heart S1, S2. Regular rate and rhythm. ABDOMEN: Soft, no tenderness. No guarding or rigidity. Extremities: No edema of the feet. Examination of the skin: Left posterior thigh did have an area of swelling and redness and irritation which is warm and tender to touch. Cultures were obtained from the same area. Neurological: Patient is awake, alert, oriented times three. Mood and affect normal. LABS: BUN of 11, creatinine 0.68. Lactic acid 2.5. Hemoglobin 13.8, white count 11.6. Blood culture obtained, currently pending. DIAGNOSTIC IMPRESSION AND PLAN: Patient with multiple skin lesions most marked on the posterior thigh area with likely an abscess with secondary cellulitis with evidence of likely point towards a Staphylococcus infection and possibly MRSA in a patient who did have a previous history of MRSA infection. PLAN: 1. Wound culture has been obtained to guide antibiotic therapy. 2. Vancomycin pharmacy to dose target of 15. 3. Await surgical drainage of this area at which time deep culture should be obtained. 4. We will follow up on clinical condition as well as cultures to further adjust medication if needed. Thank you for this consult. Will follow the patient with you. MMODL / IJN: [id number] /
[2018-08-01] MEDS: VANCOMYCIN 2,000 MG in SODIUM CHLORIDE 0.9% 500 ML IVPB SCH ×3 (00:35→23:59)
[2018-08-01 07:18] LABS: Glucose,Whole Blood 136 mg/dL (75-99)
[2018-08-01] MEDS: METOPROLOL TARTRATE 50 MG TAB PO SCH ×2 (07:56→21:31)
[2018-08-01] MEDS: FUROSEMIDE 40 MG TAB PO SCH (07:56)
[2018-08-01] MEDS: DULoxetine HCL 20 MG CAPSULE.DR PO SCH (07:56)
[2018-08-01] MEDS: LOSARTAN 50 MG TAB PO SCH (07:56)
[2018-08-01] MEDS: metFORMIN 500 MG TAB PO SCH ×2 (07:56→21:31)
[2018-08-01] MEDS: PREGABALIN 100 MG CAP PO SCH ×2 (08:00→21:33)
[2018-08-01] MEDS: HYDROcodone/APAP 7.5-325MG 1 EACH TAB PO PRN ×2 (08:00→18:36)
--- NOTE | 2018-08-01 08:44 | CDI ---
Last Revision, September 2017 Documentation Clarification Form Date: 08/01 From: Renetta Pisano RN Admit Date: 07/31/2018 4:00:00 PM Patient Name: Sarmad Ratliff Visit Number: [id number] ATTENTION: The Clinical Documentation Specialists (CDI) and [facility] Coding Staff appreciate your assistance in clarifying documentation. Please respond to the clarification below the line at the bottom and electronically sign. The CDI & [facility] Coding staff will review the response and follow-up if needed. Please note: Queries are made part of the Legal Health Record. If you have any questions, please contact the author of this message via ITS. Dr. Carlos Lindsey MD, Can you please render your opinion on the following documentation? Pt admitted with multiple skin abscesses History/Risk Factors: DM, HTN, RA, OA, hyperlipidemia, kidney stones, peripheral neuropathy, gout, MRSA Clinical Indicators: WBC on admission: 11.6 Lactic acid: 2.5 Blood cultures: no growth for 24 hours Wound culture in progress Vitals signs on admission: T 98.6, P 78, R 16, 141/87, 98% RA 07/[address] Chan: multiple skin lesions, likely points towards a staphylococcus infection and possibly MRSA Treatment: ID Consult: Dr Chan Antibiotics: Ceftriaxone IVPB, Vanco. IVPB, IV .9 @ 75ml/hr Monitor labs In your professional opinion, please clarify if these findings signify one of the following conditions, whether the condition is POA, and cause, if known: Condition Sepsis ruled out Sepsis ruled in Severe Sepsis Other, please specify Unable to determine Present on Admission: Yes No Identify the (suspected) organism __ No sepsis present MTDD
[2018-08-01 11:52] LABS: Glucose,Whole Blood 126 mg/dL (75-99)
--- NOTE | 2018-08-01 15:26 | P.GSCN ---
<An Goldberg - Last Filed: 08/01/18 15:09> History of Present Illness Consult date: 08/01/18 Reason for Consult: Multiple skin lesions History of present illness: 57-year-old male being seen at the request of the attending for a surgical eval for a small pustular lesion in the back of his left thigh. Patient stated the lesion started out small lesion thought I got bite by a spider on Tuesday. He has none on his back several small circular raised lesion. Scattered to the upper extremity and lower extremity 2 lesions on the left buttock 1 on the left fifth digit of the hand patient states they're painful and sore. None of the lesions are draining lesions are marked there is no increase in the redness from the reference point. Patient denies any prior episodes. Does state that he does have a history of MRSA greater than 10 years ago. Does report that he is being treated at [facility] for skin cancer on the face. Also has a history of myeloma stage III which is being followed by [facility]. Patient states he is followed with a athletic coordinator in the past dr biswas Review of Systems Essentially unremarkable except as mentioned in the present Past Medical History Past Medical History: Cancer, CVA/TIA, Diabetes Mellitus, Hyperlipidemia, Hypertension, Prostate Disorder, Rheumatoid Arthritis (RA), Sleep Apnea/CPAP/ BIPAP Additional Past Medical History / Comment(s): R eye lateral corner melanoma stage III with multiple surgeries-pt states nerve damage that caused facial asymmety/pain and R arm weakness which resolved with physical therapy, TIA x 2 - no effects, past LUANA which was surgically corrected but pt thinks he may have LUANA again, nephrolithiasis, BPH with TURP and 2 more surgeries to clean out scar tissue, NIDDM type II, neuropathy bilateral legs/feet and hands, gout bilateral feet, cellulitis L leg twice before, MVP, occasional lower leg edema- fluid retention. History of Any Multi-Drug Resistant Organisms: MRSA Year Discovered:: 2007 MDRO Source:: back Past Surgical History: Adenoidectomy, Heart Catheterization, Orthopedic Surgery , Prostate Surgery, Tonsillectomy Additional Past Surgical History / Comment(s): Multiple facial surgeries to remove melanoma by R eyes lateral corner/neck dissection to remove numerous (70 ) lymph nodes, UVPP and deviated septum surgery, arthroscopy rt knee, 3 cardiac caths-last one done 04/14/18, TURP and 2 surgeries after to remove scar tissue, surgical removal back sore (MRSA). Past Anesthesia/Blood Transfusion Reactions: Previous Problems w/ Anesthesia Additional Past Anesthesia/Blood Transfusion Reaction / Comm: hard to wake up out of anestheia Smoking Status: Never smoker - Past Family History Father Family Medical History: Myocardial Infarction (RI) Additional Family Medical History / Comment(s): Father of a RI at the age of 40yrs. Mother Family Medical History: Congestive Heart Failure (CHF), Coronary Artery Disease (CAD), CVA/TIA Additional Family Medical History / Comment(s): Mother had mitral valve regurgitation. She had a "massive" stroke and of CHF at the age of 75yrs. Brother(s) Family Medical History: Diabetes Mellitus Additional Family Medical History / Comment(s): Pt had one brother of a RI at the age of 50 yrs, another brother of a RI at the age of 55yrs after CABG and another brother who has 3 stents. Medications and Allergies Home Medications Medication Instructions Recorded Confirmed Type Furosemide [Lasix] 40 mg PO DAILY 03/12/18 07/31/18 History Losartan [Cozaar] 50 mg PO DAILY 03/12/18 07/31/18 History Metoprolol Tartrate [Lopressor] 50 mg PO BID 03/12/18 07/31/18 History DULoxetine HCL [Cymbalta] 40 mg PO DAILY 07/31/18 07/31/18 History HYDROcodone/APAP 5-325MG [[place] 1 tab PO Q6HR PRN 07/31/18 07/31/18 History 5-325] Neurx-Tf 1 tab PO BID 07/31/18 07/31/18 History Nortriptyline HCl [Pamelor] 10 mg PO HS 07/31/18 07/31/18 History Pregabalin [Lyrica] 200 mg PO BID 07/31/18 07/31/18 History metFORMIN HCL 1,000 mg PO BID 07/31/18 07/31/18 History Allergies Allergy/AdvReac Type Severity Reaction Status Date / Time gabapentin [From Neurontin] AdvReac EXCESSIVE Verified 07/31/18 09:19 SWEATING Surgical - Exam Vital Signs Temp Pulse Resp BP Pulse Ox 98.6 F 78 16 141/87 98 07/30/18 22:23 07/30/18 22:23 07/30/18 22:23 07/30/18 22:23 07/30/18 22:23 GENERAL APPEARANCE: 57 -year-old male patient is alert, oriented, in no acute distress. VITAL SIGNS: Reviewed HEENT: Head is normocephalic and atraumatic. Pupils are equal and reactive. The nares are patent. Oropharynx is clear without lesions. Slight facial droop on the left NECK: Supple without lymphadenopathy. Traches midline. HEART: S1, S2. Regular rate and rhythm. No murmur noted denying chest pain LUNGS: No crackles or wheezes are heard. No shortness of breath ABDOMEN: Soft, nontender, nondistended with good bowel sounds. No peritoneal signs. No palpable organomegaly or masses. EXTREMITIES: Normal skin color and turgor. No cyanosis, rash, ulceration, clubbing or edema. Radial pedal pulses are 2/4 bilaterally. NEUROLOGICAL: No focal deficits. Strength and sensation are grossly intact. Skin multiple circular pustular skin lesions noted on the buttocks abdomen left arm shoulder left fifth digit. 1 behind the left knee posterior left knee approximately 4 cm in diameter area is red induration with surrounding erythema area and a central open papular serous drainage Results - Labs 07/30/18 23:02 07/30/18 23:02 Abnormal Lab Results - Last 24 Hours (Table) 07/30/18 07/31/18 07/31/18 Range/Units 23:02 17:23 20:30 POC Glucose (mg/dL) 154 H 142 H (75-99) mg/dL Hemoglobin A1c 8.4 H (4.0-6.0) % 08/01/18 08/01/18 Range/Units 06:58 11:50 POC Glucose (mg/dL) 136 H 126 H (75-99) mg/dL Hemoglobin A1c (4.0-6.0) % Microbiology - Last 24 Hours (Table) 07/31/18 17:10 Gram Stain - Preliminary Thigh - Left Wound Culture - Preliminary 07/31/18 17:10 Anaerobic Culture - Preliminary Thigh - Left 07/30/18 23:02 Blood Culture - Preliminary Blood No Growth after 24 hours Diabetes panel 07/30/18 Range/Units 23:02 Hemoglobin A1c 8.4 H (4.0-6.0) % Assessment and Plan Assessment: Impression History of stage III myeloma Present on admission skin lesion 4 cm in diameter open papular serous drainage posterior left thigh Since admission has developed greater than 20 skin lesions shoulder arms legs buttocks History of a CVA TIA History of cellulitis left leg February 2018 Plan Continue current recommendations by infectious disease Consult dermatology No surgical intervention at this time IV antibiotics per infectious disease DVT and GI prophylaxis We'll follow with you Will ultrasound the left thigh Surgical consultation dictated for Dr. Stein The above impression and plan of care have been discussed and directed by signing physician. An Goldberg nurse practitioner acting as scribe for signing physician. <Anamika Narvaez N - Last Filed: 08/01/18 22:34> Surgical - Exam Vital Signs Temp Pulse Resp BP Pulse Ox 98.6 F 78 16 141/87 98 07/30/18 22:23 07/30/18 22:23 07/30/18 22:23 07/30/18 22:23 07/30/18 22:23 Results - Labs 07/30/18 23:02 07/30/18 23:02 Abnormal Lab Results - Last 24 Hours (Table) 08/01/18 08/01/18 08/01/18 Range/Units 06:58 11:50 17:03 POC Glucose (mg/dL) 136 H 126 H 117 H (75-99) mg/dL Microbiology - Last 24 Hours (Table) 07/31/18 17:10 Gram Stain - Preliminary Thigh - Left Wound Culture - Preliminary 07/31/18 17:10 Anaerobic Culture - Preliminary Thigh - Left 07/30/18 23:02 Blood Culture - Preliminary Blood No Growth after 24 hours Assessment and Plan (1) History of melanoma Current Visit: Yes Status: Acute Code(s): Z85.820 - PERSONAL HISTORY OF MALIGNANT MELANOMA OF SKIN SNOMED Code(s): 204277560 (2) History of MRSA infection Current Visit: Yes Status: Acute Code(s): Z86.14 - PERSONAL HISTORY OF METHICILLIN RESIS STAPH INFECTION SNOMED Code(s): 727845931 (3) Abscess of skin or subcutaneous tissue Current Visit: Yes Status: Acute Code(s): L02.91 - CUTANEOUS ABSCESS, UNSPECIFIED SNOMED Code(s): 53861181 (4) Cellulitis Current Visit: Yes Status: Acute Code(s): L03.90 - CELLULITIS, UNSPECIFIED SNOMED Code(s): 679383997 Plan: Ultrasound obtained and reviewed demonstrating cellulitis without any fluid collection for drainage. Recommend antibiotic management and dermatology follow up.
--- NOTE | 2018-08-01 16:08 | US ---
EXAMINATION TYPE: US extremity nonvasc mass LT DATE OF EXAM: 08/01/2018 COMPARISON: NONE CLINICAL HISTORY: Cellulitis of the left posterior thigh. Patient has red open wound on left posterior thigh. Patient has multiple red raised lesions popping u p all over. This larger area was the 1st one. There is a complex irregular shaped area measuring 0.6 x 0.6 x 1.0cm surrounded by edematous tissue and increased vascularity. Ultrasound performed at the site of patient's symptomatology. IMPRESSION: Probable phlegmonous changes within the skin. Correlate for cellulitis.
--- NOTE | 2018-08-01 16:38 | PN ---
PROGRESS NOTE DATE OF SERVICE: 08/01/2018 PRESENTING COMPLAINT: Multiple skin abscesses. INTERVAL HISTORY: This patient who presented with multiple skin abscesses has a prior history of MRSA. There is a large wound on the left thigh pending I&D by Dr. Narvaez. Pain is present at that point. No fever. No chills. Tolerating a diet. The patient is on IV vancomycin. REVIEW OF SYSTEMS: Done for constitutional, cardiovascular, GI, pulmonary; relevant findings as above. CURRENT MEDICATIONS: Reviewed. They include IV vancomycin and ceftriaxone. PHYSICAL EXAMINATION: Afebrile. Pulse 55, respiration 17, blood pressure 120/73, pulse ox 96% on room air. GENERAL APPEARANCE: Sitting up. Awake. EYES: Pupils equal. Conjunctivae normal. HEENT: External appearance of nose and ears normal. Oral cavity normal. NECK: JVD not raised. Mass not palpable. RESPIRATORY: Effort normal. Lungs are clear. CARDIOVASCULAR: First and second sounds normal. No edema. ABDOMEN: Soft, non-tender. Liver and spleen not palpable. DERMATOLOGICAL: Large abscess on the back of the thigh. Noted dressing on the same. Multiple small abscesses present in different spots. All have been skin marked. No progression from yesterday. INVESTIGATIONS: No blood work from today. ASSESSMENT: 1. Areas of multiple abscesses, including a large one on the left thigh posteriorly, pending incision and drainage. 2. Diabetes mellitus, type 2, on oral hypoglycemic. 3. Essential hypertension. 4. Hyperlipidemia. 5. Primary osteoarthritis. 6. Peripheral neuropathy secondary to diabetes. 7. Chronic gout. PLAN: Continue with IV vancomycin. Awaiting I&D by General Surgery. Care was discussed with the patient. Will follow. MMODL / IJN: [id number] /
[2018-08-01 17:16] LABS: Glucose,Whole Blood 117 mg/dL (75-99)
[2018-08-01] MEDS: NORTRIPTYLINE 10 MG CAP PO SCH (21:30)
[2018-08-01] MEDS: IBUPROFEN 400 MG TAB PO PRN (21:42)
--- NOTE | 2018-08-01 22:20 | PN ---
PROGRESS NOTE DATE OF SERVICE: 08/01/2018. REASON FOR FOLLOWUP: Left posterior thigh abscess and cellulitis. INTERVAL HISTORY: The patient is currently afebrile. He is breathing comfortably. Waiting for the surgical drainage of the left posterior thigh abscess area. The patient denies having any chest pain, shortness of breath or cough. No abdominal pain. No diarrhea. EXAMINATION: Blood pressure is 125/73 with a pulse of 57, temperature 97.2. He is 96% on room air. General description is a middle-aged male lying in bed in no distress. Respiratory system unlabored breathing. Clear to auscultation anteriorly. Heart S1, S2. Regular rate and rhythm. ABDOMEN: Soft. Left posterior thigh area swelling swollen and red. No drainage. LABS: No new labs have been obtained today. Culture obtained yesterday are currently pending. DIAGNOSTIC IMPRESSION AND PLAN: Patient with left posterior thigh abscess and cellulitis. Awaiting surgical drainage. Clinical suspicion is high for the MRSA. Hence we will keep the patient on vancomycin while waiting for the culture to finalize. Condition stabilized. Continue supportive care. MMODL / IJN: [id number] /
[2018-08-01] MEDS ORDERED: VANCOMYCIN TROUGH DUE 1 EACH MISC MISCELLANE ONE (23:00)
[2018-08-01 23:57] LABS: Anion Gap 11 mmol/L; Blood Urea Nitrogen 14 mg/dL (9-20); Calcium 9.3 mg/dL (8.4-10.2); Carbon Dioxide 26 mmol/L (22-30); Chloride 100 mmol/L (98-107); Glucose 148 mg/dL (74-99); Potassium 3.9 mmol/L (3.5-5.1); Sodium 137 mmol/L (137-145)
[2018-08-02 07:19] LABS: Glucose,Whole Blood 126 mg/dL (75-99)
[2018-08-02] MEDS: metFORMIN 500 MG TAB PO SCH ×2 (07:56→21:30)
[2018-08-02] MEDS: LOSARTAN 50 MG TAB PO SCH (07:56)
[2018-08-02] MEDS: DULoxetine HCL 20 MG CAPSULE.DR PO SCH (07:56)
[2018-08-02] MEDS: METOPROLOL TARTRATE 50 MG TAB PO SCH ×2 (07:56→21:30)
[2018-08-02] MEDS: PREGABALIN 100 MG CAP PO SCH ×2 (07:57→21:30)
[2018-08-02] MEDS: HYDROcodone/APAP 7.5-325MG 1 EACH TAB PO PRN ×2 (07:57→14:11)
[2018-08-02] MEDS: FUROSEMIDE 40 MG TAB PO SCH (08:05)
[2018-08-02 11:31] LABS: Anion Gap 10 mmol/L; Blood Urea Nitrogen 11 mg/dL (9-20); Calcium 8.9 mg/dL (8.4-10.2); Carbon Dioxide 25 mmol/L (22-30); Chloride 104 mmol/L (98-107); Glucose 140 mg/dL (74-99); Potassium 4.2 mmol/L (3.5-5.1); Sodium 139 mmol/L (137-145)
[2018-08-02] MEDS: VANCOMYCIN 2,000 MG in SODIUM CHLORIDE 0.9% 500 ML IVPB SCH ×2 (11:32→23:57)
[2018-08-02 11:40] LABS: Basophils # (A) 0.1 k/uL (0-0.2); Basophils % (A) 1 %; Eosinophils # (A) 0.1 k/uL (0-0.7); Eosinophils % (A) 2 %; HCT 41.7 % (39.0-53.0); Lymphocytes # (A) 1.5 k/uL (1.0-4.8); Lymphocytes % (A) 26 %; MCH 31.7 pg (25.0-35.0); MCHC 33.5 g/dL (31.0-37.0); MCV 94.6 fL (80.0-100.0); Mean Platelet Volume 8.1; Monocytes # (A) 0.5 k/uL (0-1.0); Monocytes % (A) 9 %; Neutrophils # (A) 3.5 k/uL (1.3-7.7); Neutrophils % (A) 60 %; Platelet Count 186 k/uL (150-450); RBC 4.41 m/uL (4.30-5.90); RDW 12.8 % (11.5-15.5); WBC 5.9 k/uL (3.8-10.6)
[2018-08-02 12:36] LABS: Glucose,Whole Blood 98 mg/dL (75-99)
--- NOTE | 2018-08-02 13:21 | P.PN ---
Subjective Progress Note Date: 08/02/18 57-year-old male seen at the bedside this morning sitting up in a chair. Patient denies any pain to the skin lesions. Skin lesions look less reddened less edema noted. No drainage noted from the skin lesions. Patient has a history of myeloma stage III being followed by [facility] dressing to the left posterior thigh currently dry. Ultrasound done of the left thigh report shows probable phlegmonous changes within the skin Objective - Vital Signs Vital signs: Vital Signs Temp 97.9 F 08/02/18 06:38 Pulse 61 08/02/18 06:38 Resp 18 08/02/18 06:38 BP 120/80 08/02/18 06:38 Pulse Ox 96 08/02/18 06:38 Intake & Output 08/01/18 08/02/18 08/02/18 18:59 06:59 18:59 Intake Total 900 240 Balance 900 240 Intake: Intake, IV Titration 300 Amount Vancomycin 2,000 mg In 250 Sodium Chloride 0.9% 500 ml @ 167 mls/hr IVPB Q12H [facility] Rx#:[id number] cefTRIAXone 1,000 mg In 50 Sodium Chloride 0.9% 50 ml @ 100 mls/hr IVPB Q24H [facility] Rx#:[id number] Oral 600 240 Other: Voiding Method Toilet # Voids 3 2 - Exam Physical exam 57-year-old male sitting up in a chair appears in no acute distress Lungs clear on room air Heart S1-S2 audible regular Abdomen obese soft nondistended and no nausea vomiting no frequent stooling Extremities no pedal edema Skin decreased redness from the reference markings on all the skin lesions patient denies any pain to the skin lesions non-draining - Labs CBC & Chem 7: 08/02/18 10:31 08/02/18 10:31 Labs: Abnormal Lab Results - Last 24 Hours (Table) 08/01/18 08/01/18 08/02/18 Range/Units 17:03 23:09 07:18 Glucose 148 H (74-99) mg/dL POC Glucose (mg/dL) 117 H 126 H (75-99) mg/dL 08/02/18 Range/Units 10:31 Glucose 140 H (74-99) mg/dL POC Glucose (mg/dL) (75-99) mg/dL Microbiology - Last 24 Hours (Table) 07/30/18 23:02 Blood Culture - Preliminary Blood No Growth after 48 hours 07/31/18 17:10 Gram Stain - Preliminary Thigh - Left Wound Culture - Preliminary Presumptive Staph aureus Assessment and Plan Assessment: Impression History of stage III myeloma Present on admission skin lesion 4 cm in diameter open papular serous drainage posterior left thigh Since admission has developed greater than 20 skin lesions shoulder arms legs buttocks History of a CVA TIA History of cellulitis left leg February 2018 History of MRSA infection Ultrasound of the left posterior thigh demonstrating cellulitis without any fluid collection for drainage Plan Recommend antibiotic therapy with a dermatology follow-up Await dermatology recommendations Continue current recommendations by infectious disease Consult dermatology No surgical intervention at this time IV antibiotics per infectious disease DVT and GI prophylaxis We'll follow with you The above impression and plan of care have been discussed and directed by signing physician. An Goldberg nurse practitioner acting as scribe for signing physician.
--- NOTE | 2018-08-02 13:33 | PN ---
PROGRESS NOTE DATE OF SERVICE: 08/02/2018. REASON FOR FOLLOWUP: Left posterior thigh abscess and cellulitis and multiple folliculitis. INTERVAL HISTORY: The patient is currently afebrile. Pain to the left posterior thigh has slightly decreased. The patient denies having any chest pain or shortness of breath or cough. No abdominal pain. He did have some bumps especially one on his left finger. This has slightly increased in size. PHYSICAL EXAMINATION: On examination, blood pressure 120/80 with a pulse of 61, temperature 97.9. He is 96% on room air. General description is a middle aged male up in the chair in no distress. RESPIRATORY SYSTEM: Unlabored breathing, clear to auscultation anteriorly. HEART: S1, S2. Regular rate and rhythm. ABDOMEN: Soft, no tenderness. Left posterior thigh swelling and redness has decreased. Minimal drainage. The left index finger dorsum surface did have a small area of folliculitis, but no drainage was noticed. LABS: White count of 5.9 with a BUN of 11, creatinine 0.67. DIAGNOSTIC IMPRESSION AND PLAN: Patient with left posterior thigh cellulitis and abscess more likely methicillin- resistant Staphylococcus aureus. Patient currently on vancomycin. Ultrasound negative for a fluid collection. Surgery recommended against any drainage. We will keep the patient on vancomycin while waiting for the culture to finalize. RN has been advised to obtain a culture of the left index finger in that folliculitis opens up. Continue supportive care. MMODL / IJN: [id number] /
[2018-08-02 17:27] LABS: Glucose,Whole Blood 117 mg/dL (75-99)
--- NOTE | 2018-08-02 20:21 | CONS ---
CONSULTATION DATE OF CONSULTATION: 08/02/2018. REQUESTING PHYSICIAN: Dr. Narvaez. REASON FOR CONSULTATION: Skin lesions. HISTORY OF PRESENT ILLNESS: This is a 57-year-old male who was admitted to [facility] for a painful skin lesion located on the left posterior thigh. He has a previous history of MRSA. He states he had about 7 lesions at the time of admission, and now he has over 20. He states the lesions seem to be improving overall since he started receiving the IV antibiotics in the hospital. He has also been evaluated by General surgery and Infectious Disease. He is currently on IV vancomycin. A wound culture was done and was positive for presumptive Staph aureus. Blood cultures showed no growth at 24 hours. REVIEW OF SYSTEMS: INTEGUMENTARY: As per HPI. All others noncontributory. PAST MEDICAL HISTORY: Significant for CVA, TIA, diabetes mellitus, hypertension, hyperlipidemia, sleep apnea, melanoma, and history of cellulitis secondary to MRSA. PAST SURGICAL HISTORY: Heart catheterization, prostate surgery and right shoulder surgery. SOCIAL HISTORY: The patient denies smoking, drinking, or drug use. ALLERGIES: GABAPENTIN. MEDICATIONS: See MAR. SKIN: Bright red, tender, swollen, warm ill-defined plaque located on the left posterior thigh. Multiple erythematous nodules located on the cheek, arms, hands, buttocks and legs. LABS: BUN is 11, creatinine 0.67, hemoglobin 14.0, white blood cell 5.3. Blood culture no growth at 24 hours. Wound culture, presumptive Staph aureus. IMPRESSION: 1. Abscess with possible cellulitis. 2. Furunculosis. PLAN: 1. Continue IV antibiotics per Infectious Disease recommendations. 2. Start topical triamcinolone ointment to affected areas b.i.d. 3. Start mupirocin 2% ointment apply inside both nostrils twice daily for 2 weeks. 4. Start Hibiclens wash daily with showers 5. Patient to follow-up outpatient at [facility] after discharge from the hospital Thank you very much for the consultation. MMODL / IJN: [id number] / MTDD
--- NOTE | 2018-08-02 20:21 | PN ---
PROGRESS NOTE DATE OF SERVICE: 08/02/2018. PRESENTING ON: Multiple skin abscess. INTERVAL HISTORY: This patient presented with multiple skin abscesses. The largest one being in the back of the left thigh. Seen by Dr. Narvaez, who did not feel that there was enough abscess in there for an ID. The patient is getting IV vancomycin, being followed by ID. No fever. No chills. REVIEW OF SYSTEMS: Done for constitutional, cardiovascular GI, pulmonary and dermatological, relevant findings as above. CURRENT MEDICATIONS: Reviewed that include IV Vanco. EXAMINATION: VITAL SIGNS: Afebrile, pulse 59, respiratory 18, blood pressure 135/87, pulse ox 97% on room air. GENERAL APPEARANCE: Sitting up, awake. EYES: Pupils equal. Conjunctivae normal. HEENT: External appearance of nose and ears normal. Oral cavity normal. NECK: JVD not raised. Mass not palpable. RESPIRATORY: Effort normal. LUNGS: Clear. CARDIOVASCULAR: 1st and 2nd sounds normal. No edema. ABDOMEN: Soft, nontender. Liver and spleen not palpable. PSYCHIATRY: Alert and oriented x3. Mood and affect normal. DERMATOLOGICAL: A large area of induration of the back of the left thigh with some drain on the dressing and other areas of multiple small abscesses present in different spots. None have gone beyond the skin marking. INVESTIGATIONS: White count 5.9. ASSESSMENT: 1. Areas of multiple abscesses, the large one behind the left thigh, per surgery, does not feel it needs any I and D. 2. Diabetes mellitus type 2 on oral hypoglycemics. 3. Essential hypertension. 4. Hyperlipidemia. 5. Primary osteoarthritis. 6. Peripheral neuropathy secondary to diabetes. 7. Chronic gout. The patient is on IV vancomycin. We will try to reach Dr. Narvaez to discuss the if ID will be beneficial. Follow. MMODL / IJN: [id number] /
[2018-08-02 20:45] LABS: Glucose,Whole Blood 177 mg/dL (75-99)
[2018-08-02] MEDS: NORTRIPTYLINE 10 MG CAP PO SCH (21:30)
[2018-08-02] MEDS: TRIAMCINOLONE ACET 0.1% OINTMENT 15 GM TUBE TOPICAL SCH (21:36)
[2018-08-02] MEDS: MUPIROCIN 2% OINT 22 GM TUBE TOPICAL SCH (21:36)
[2018-08-03] MEDS: DULoxetine HCL 20 MG CAPSULE.DR PO SCH (07:49)
[2018-08-03] MEDS: metFORMIN 500 MG TAB PO SCH ×2 (07:49→21:29)
[2018-08-03 07:50] LABS: Glucose,Whole Blood 111 mg/dL (75-99)
[2018-08-03] MEDS: METOPROLOL TARTRATE 50 MG TAB PO SCH ×2 (07:50→21:29)
[2018-08-03] MEDS: LOSARTAN 50 MG TAB PO SCH (07:50)
[2018-08-03] MEDS: FUROSEMIDE 40 MG TAB PO SCH (07:50)
[2018-08-03] MEDS: HYDROcodone/APAP 7.5-325MG 1 EACH TAB PO PRN ×3 (07:50→21:30)
[2018-08-03] MEDS: MUPIROCIN 2% OINT 22 GM TUBE TOPICAL SCH ×2 (07:54→21:29)
[2018-08-03] MEDS: PREGABALIN 100 MG CAP PO SCH ×2 (07:54→21:30)
[2018-08-03] MEDS: TRIAMCINOLONE ACET 0.1% OINTMENT 15 GM TUBE TOPICAL SCH ×2 (07:54→21:30)
[2018-08-03 10:00] LABS: Anion Gap 12 mmol/L; Blood Urea Nitrogen 10 mg/dL (9-20); Calcium 8.8 mg/dL (8.4-10.2); Carbon Dioxide 24 mmol/L (22-30); Chloride 105 mmol/L (98-107); Glucose 183 mg/dL (74-99); Potassium 4.3 mmol/L (3.5-5.1); Sodium 141 mmol/L (137-145)
[2018-08-03] MEDS: VANCOMYCIN 2,000 MG in SODIUM CHLORIDE 0.9% 500 ML IVPB SCH (11:37)
[2018-08-03 12:05] LABS: Glucose,Whole Blood 94 mg/dL (75-99)
--- NOTE | 2018-08-03 14:31 | P.PN ---
<YusufAn M - Last Filed: 08/03/18 14:25> Subjective Progress Note Date: 08/03/18 57-year-old up in room no new events. Patient scheduled today for an incision and drainage of the left posterior thigh abscess multiple skin lesions noted unchanged from prior assessment. Currently has a dressing to the left posterior thigh currently dry Objective - Vital Signs Vital signs: Vital Signs Temp 97.7 F 08/03/18 07:00 Pulse 57 L 08/03/18 07:00 Resp 16 08/03/18 07:58 BP 126/78 08/03/18 07:00 Pulse Ox 97 08/03/18 07:00 Intake & Output 08/02/18 08/03/18 08/03/18 18:59 06:59 18:59 Intake Total 440 250 200 Balance 440 250 200 Intake: Intake, IV Titration 250 Amount Vancomycin 2,000 mg In 250 Sodium Chloride 0.9% 500 ml @ 167 mls/hr IVPB Q12H [facility] Rx#:[id number] Oral 440 200 Other: # Voids 2 1 # Bowel Movements 0 - Exam Physical exam 57-year-old male up in room states there is no significant discomfort to the skin lesions Lungs clear on room air Heart S1-S2 audible regular Abdomen obese soft nondistended and no nausea vomiting no frequent stooling Extremities no pedal edema Skin increase redness from the reference markings on all the skin lesions patient denies any pain to the skin lesions non-draining dressing to the left posterior thigh dry - Labs CBC & Chem 7: 08/02/18 10:31 08/03/18 08:49 Labs: Abnormal Lab Results - Last 24 Hours (Table) 08/02/18 08/02/18 08/03/18 Range/Units 17:24 20:39 07:39 Glucose (74-99) mg/dL POC Glucose (mg/dL) 117 H 177 H 111 H (75-99) mg/dL 08/03/18 Range/Units 08:49 Glucose 183 H (74-99) mg/dL POC Glucose (mg/dL) (75-99) mg/dL Microbiology - Last 24 Hours (Table) 08/02/18 15:10 Gram Stain - Preliminary Finger - Left Fifth Wound Culture - Preliminary 07/30/18 23:02 Blood Culture - Preliminary Blood No Growth after 72 hours 07/31/18 17:10 Anaerobic Culture - Preliminary Thigh - Left 07/31/18 17:10 Gram Stain - Final Thigh - Left Wound Culture - Final Staphylococcus aureus Assessment and Plan Assessment: Impression History of stage III myeloma Present on admission skin lesion 4 cm in diameter open papular serous drainage posterior left thigh Since admission has developed greater than 20 skin lesions shoulder arms legs buttocks History of a CVA TIA History of cellulitis left leg February 2018 History of MRSA infection Ultrasound of the left posterior thigh demonstrating cellulitis without any fluid collection for drainage Abscess with possible cellulitis furunculosis skin lesions Plan Infectious disease recommendations antibiotics dermatology recommendations topical ointment as ordered Hibiclens wash daily with shower per dermatology's recommendations Outpatient follow-up with dermatology Continue current recommendations by infectious disease Consult dermatology Schedule incision and drainage of the left posterior thigh abscess to be done August 04 IV antibiotics per infectious disease DVT and GI prophylaxis We'll follow with you The above impression and plan of care have been discussed and directed by signing physician. An Goldberg nurse practitioner acting as scribe for signing physician. <Anamika Narvaez - Last Filed: 08/03/18 16:54> Objective - Vital Signs Vital signs: Vital Signs Temp 97.4 F L 08/03/18 14:41 Pulse 60 08/03/18 14:41 Resp 20 08/03/18 15:03 BP 118/80 08/03/18 14:41 Pulse Ox 97 08/03/18 14:41 Intake & Output 08/02/18 08/03/18 08/03/18 18:59 06:59 18:59 Intake Total 440 250 520 Balance 440 250 520 Intake: Intake, IV Titration 250 Amount Vancomycin 2,000 mg In 250 Sodium Chloride 0.9% 500 ml @ 167 mls/hr IVPB Q12H [facility] Rx#:[id number] Oral 440 520 Other: # Voids 2 1 2 # Bowel Movements 0 - Labs CBC & Chem 7: 08/02/18 10:31 08/03/18 08:49 Labs: Abnormal Lab Results - Last 24 Hours (Table) 08/02/18 08/02/18 08/03/18 Range/Units 17:24 20:39 07:39 Glucose (74-99) mg/dL POC Glucose (mg/dL) 117 H 177 H 111 H (75-99) mg/dL 08/03/18 Range/Units 08:49 Glucose 183 H (74-99) mg/dL POC Glucose (mg/dL) (75-99) mg/dL Microbiology - Last 24 Hours (Table) 08/02/18 15:10 Gram Stain - Preliminary Finger - Left Fifth Wound Culture - Preliminary 07/30/18 23:02 Blood Culture - Preliminary Blood No Growth after 72 hours 07/31/18 17:10 Anaerobic Culture - Preliminary Thigh - Left 07/31/18 17:10 Gram Stain - Final Thigh - Left Wound Culture - Final Staphylococcus aureus Assessment and Plan (1) History of melanoma Current Visit: Yes Status: Acute Code(s): Z85.820 - PERSONAL HISTORY OF MALIGNANT MELANOMA OF SKIN SNOMED Code(s): 542766581 (2) History of MRSA infection Current Visit: Yes Status: Acute Code(s): Z86.14 - PERSONAL HISTORY OF METHICILLIN RESIS STAPH INFECTION SNOMED Code(s): 913241376 (3) Abscess of skin or subcutaneous tissue Current Visit: Yes Status: Acute Code(s): L02.91 - CUTANEOUS ABSCESS, UNSPECIFIED SNOMED Code(s): 51939267 (4) Cellulitis Current Visit: Yes Status: Acute Code(s): L03.90 - CELLULITIS, UNSPECIFIED SNOMED Code(s): 807615195
--- NOTE | 2018-08-03 16:25 | PN ---
PROGRESS NOTE DATE OF SERVICE: 08/03/2018 REASON FOR FOLLOWUP: Left posterior thigh abscess. INTERVAL HISTORY: The patient is currently afebrile and possibly scheduled for I&D of this area by Surgery this afternoon. The patient denies having any chest pain, shortness of breath or cough. No abdominal pain or any diarrhea. PHYSICAL EXAMINATION: Blood pressure is 118/80 with a pulse of 60, temperature 97.4. He is 97% on room air. General description is a middle-aged male lying in bed in no distress. RESPIRATORY SYSTEM: Unlabored breathing. Clear to auscultation anteriorly. HEART: S1, S2. Regular rate and rhythm. ABDOMEN: Soft. No tenderness. Left posterior thigh wound is currently dressed up. No obvious drainage on the dressing. LABS: BUN of 10, creatinine 0.67. The initial culture was finalized with MSSA. DIAGNOSTIC IMPRESSION AND PLAN: Patient with a left posterior thigh abscess with evidence of folliculitis. Patient's culture positive for MSSA. Antibiotics were adjusted to cefazolin 2 grams q.8 hours with I&D and see the depth of this infection of the thigh. Continue with supportive care. MMODL / IJN: [id number] /
[2018-08-03] MEDS: ceFAZolin IN SWFI 2 GM/20 ML SYRINGE IVP SCH ×2 (16:45→23:54)
[2018-08-03 17:34] LABS: Glucose,Whole Blood 206 mg/dL (75-99)
[2018-08-03 21:23] LABS: Glucose,Whole Blood 120 mg/dL (75-99)
[2018-08-03] MEDS: NORTRIPTYLINE 10 MG CAP PO SCH ×2 (21:30→21:32)
--- NOTE | 2018-08-04 00:16 | PN ---
PROGRESS NOTE DATE OF SERVICE: 08/03/2018. PRESENT COMPLAINT: Multiple skin abscesses. INTERVAL HISTORY: The patient presented with multiple skin abscesses, largest one being on the back of the left thigh, quite a bit of drainage is coming through. Pending an I and D by Dr. Narvaez. Otherwise patient is stable. REVIEW OF SYSTEMS: Done for constitutional, cardiovascular, GI, pulmonary, dermatologic; relevant findings as above. CURRENT MEDICATIONS: Include IV vancomycin and antiinflammatory medications. PHYSICAL EXAMINATION: Temperature 97.4, pulse 50, respirations 20, blood pressure 182/80, pulse ox 97% on room air. GENERAL APPEARANCE: Lying in bed awake. EYES: Pupils equal. Conjunctivae normal. HEENT: External nose and ears normal. NECK: JVD not raised. Mass not palpable. Respiratory effort normal. LUNGS: Clear. CARDIOVASCULAR: 1st and 2nd heart sounds. No edema. ABDOMEN: Soft, nontender. Liver and spleen not palpable. PSYCHIATRY: Alert and oriented 3. Mood and affect normal. DERMATOLOGIC: Area of induration of the back of the thigh, looks like significant drainage, quite a bit on the dressing. INVESTIGATIONS: Potassium 4.3. BUN and creatinine normal. Cultures growing MSSA. IMPRESSION: 1. Areas of multiple abscesses, large one behind the left thigh, pending incision and drainage per surgery. Cultures growing methicillin-sensitive staphylococcus aureus. 2. Diabetes mellitus type 2 on oral hypoglycemics. 3. Essential hypertension. 4. Hyperlipidemia. 5. Primary osteoarthritis. 6. Peripheral neuropathy secondary to diabetes. 7. Chronic gout. PLAN: Continue current medication and treatment plan. Antibiotics per Dr. Chan. Awaiting I and D. Care was discussed with the patient. MMODL / IJN: [id number] /
[2018-08-04 07:18] LABS: Glucose,Whole Blood 90 mg/dL (75-99)
[2018-08-04] MEDS: metFORMIN 500 MG TAB PO SCH ×2 (07:37→22:53)
[2018-08-04] MEDS: DULoxetine HCL 20 MG CAPSULE.DR PO SCH (07:37)
[2018-08-04] MEDS: FUROSEMIDE 40 MG TAB PO SCH (07:37)
[2018-08-04] MEDS: LOSARTAN 50 MG TAB PO SCH (07:38)
[2018-08-04] MEDS: METOPROLOL TARTRATE 50 MG TAB PO SCH ×2 (07:38→22:54)
[2018-08-04] MEDS: TRIAMCINOLONE ACET 0.1% OINTMENT 15 GM TUBE TOPICAL SCH (07:46)
[2018-08-04] MEDS: MUPIROCIN 2% OINT 22 GM TUBE TOPICAL SCH ×2 (07:46→22:57)
[2018-08-04] MEDS: PREGABALIN 100 MG CAP PO SCH ×2 (07:51→22:57)
[2018-08-04] MEDS: ceFAZolin IN SWFI 2 GM/20 ML SYRINGE IVP SCH ×2 (07:51→16:23)
[2018-08-04] MEDS: HYDROcodone/APAP 7.5-325MG 1 EACH TAB PO PRN (07:51)
--- NOTE | 2018-08-04 08:31 | P.PN ---
Progress Note - Text Progress Note Date: 08/03/18 Incision and drainage delayed due to limited OR availability. Case deferred for tomorrow.
[2018-08-04] MEDS ORDERED: VANCOMYCIN TROUGH DUE 1 EACH MISC MISCELLANE ONE (11:00)
[2018-08-04 12:34] LABS: Glucose,Whole Blood 110 mg/dL (75-99)
[2018-08-04 12:43] LABS: Anion Gap 15 mmol/L; Blood Urea Nitrogen 12 mg/dL (9-20); Calcium 9.6 mg/dL (8.4-10.2); Carbon Dioxide 25 mmol/L (22-30); Chloride 104 mmol/L (98-107); Glucose 177 mg/dL (74-99); Potassium 4.4 mmol/L (3.5-5.1); Sodium 144 mmol/L (137-145)
--- NOTE | 2018-08-04 13:20 | PN ---
PROGRESS NOTE DATE OF SERVICE: 08/04/2018 REASON FOR FOLLOWUP: Left posterior thigh abscess. INTERVAL HISTORY: The patient is currently afebrile. He is waiting for surgical drainage of the same area this afternoon by the surgeon. The patient denies having any chest pain, shortness of breath or cough. No abdominal pain. Overall swelling and redness has decreased and less drainage. PHYSICAL EXAMINATION: On examination, blood pressure 123/71 with a pulse of 52, temperature 97.7. He is 94% on room air. General description is a middle-aged male lying in bed in no distress. RESPIRATORY SYSTEM: Unlabored breathing, clear to auscultation anteriorly. HEART: S1, S2. Regular rate and rhythm. ABDOMEN: Soft, no tenderness. Left posterior thigh area swelling, redness has decreased. Minimal drainage. DIAGNOSTIC IMPRESSION AND PLAN: Patient with left posterior thigh abscess and cellulitis culture positive for MSSA. Patient is scheduled to go for possible I and D today. The patient to finish therapy with oral Keflex and Bactrim DS combination with concern for possible methicillin-resistant Staphylococcus aureus and a close outpatient followup. Continue supportive care condition. MMODL / IJN: [id number] /
[2018-08-04 17:31] LABS: Glucose,Whole Blood 106 mg/dL (75-99)
[2018-08-04] MEDS ORDERED: IV FLUID CONTINUATION 700 ML IV ONE (18:53)
[2018-08-04 19:02] VITALS: TEMP 97
[2018-08-04] MEDS ORDERED: GLYCOPYRROLATE 0.2 MG/ML 2 ML VIAL ONE (20:49)
[2018-08-04] MEDS ORDERED: PROPOFOL 10 MG/ML 20 ML VIAL IV ONE (20:49)
[2018-08-04] MEDS ORDERED: KETAMINE 10 MG/ML 20 ML VIAL ONE (20:49)
[2018-08-04] MEDS ORDERED: MIDAZOLAM 2 MG/2 ML VIAL ONE (20:49)
[2018-08-04] MEDS ORDERED: fentaNYL (PF) 50 MCG/ML 2 ML AMP ONE (20:49)
[2018-08-04] MEDS ORDERED: ceFAZolin 1,000 MG VIAL IV ONE (21:07)
[2018-08-04] MEDS ORDERED: BUPIVACAIN-EPI 0.25%-1:200,000 30 ML VIAL SQ ONE (21:10)
[2018-08-04] MEDS ORDERED: LACTATED RINGERS 1,000 ML IV ONE (21:26)
[2018-08-04] MEDS: HYDROmorphone 1 MG/ML 1 ML SYRINGE IVP ONE ×2 (21:44→21:49)
--- NOTE | 2018-08-04 21:56 | P.OP ---
Date of Procedure: 08/04/18 Description of Procedure: SURGEON: ANAMIKA NARVAEZ MD BUSINESS AFFAIRS MANAGER: NONE. PREOPERATIVE DIAGNOSES: 1. Left posterior thigh cellulitis POSTOPERATIVE DIAGNOSES: 1. Left posterior thigh cellulitis, 7 x 11 cm OPERATION: 1. Excision of benign skin lesion subcutaneous tissue, 5 x 2 cm. 2. Incision and drainage left posterior thigh cellulitis 3. Water jet lavage for mechanical debridement 5 x 2 cm subcutaneous wound ANESTHESIA: MAC with local ESTIMATED BLOOD LOSS: 5 mL. SPECIMENS REMOVED: 1. Tissue culture left posterior thigh cellulitis 2. Anaerobic and aerobic cultures of left posterior thigh wound COMPLICATIONS: None. INDICATIONS: The patient is a 57-year-old male who presents with left thigh cellulitis of unclear etiology. Per request of his admitting physician including complicated history of cellulitis of unclear etiology, surgical intervention was sought. Benefits and risks were described. Informed consent was obtained. DESCRIPTION OF PROCEDURE: Patient was brought into the operating room, laid in left lateral decubitus position. After adequate IV sedation, the left lower leg was prepped and draped in standard sterile fashion using ChloraPrep. A timeout protocol was confirmed with the surgical team regarding patient's name including procedures to be performed. Preoperative medications was administered. Next, a local field block was administered. The left posterior thigh cellulitis was measured using a ruler with borders marked with indelible marker of 7 x 11 cm. An transverse elliptical incision of 5 x 2 cm in size into the dermis followed by circumferential dissection using electro-Bovie cautery into the subcutaneous tissue. The wound was probed with a hemostat. No purulent drainage was obtained consistent with cellulitis and thickened subcutaneous tissue. Hemostasis was checked with electrocautery. The wound was pulse lavaged for mechanical debridement using 3 L normal saline solution. The initial erythema and cellulitis of the skin had resolved upon completion of the procedure. Dilute hydrogen peroxide was used to cleanse the skin wound. Half inch iodoform packing 12 inch strip was placed along the bed of the wound and covered with 4 x 4 gauze including Coban. At the end of the procedure, needle, sponge, and instrument count had been verified correct by the ophthalmology surgical technician. The patient was taken to the postanesthesia care unit in stable condition. FINDINGS: 1. Thickened subcutaneous tissue consistent with cellulitis without abscess, 7 x 11 cm Plan - Discharge Summary Discharge Rx Participant: No New Discharge Prescriptions: New Cephalexin [Keflex] 500 mg PO Q6HR #40 cap Mupirocin 2% Oint [Bactroban 2% Oint] 1 applic TOPICAL BID applic Naproxen 500 mg PO BID #14 tablet Sulfamethox-Tmp 800-160Mg [Bactrim DS 800-160 mg] 1 tab PO Q12HR #20 tab Continue Metoprolol Tartrate [Lopressor] 50 mg PO BID Losartan [Cozaar] 50 mg PO DAILY Furosemide [Lasix] 40 mg PO DAILY Nortriptyline HCl [Pamelor] 10 mg PO HS HYDROcodone/APAP 5-325MG [[place] 5-325] 1 tab PO Q6HR PRN PRN Reason: Pain Pregabalin [Lyrica] 200 mg PO BID DULoxetine HCL [Cymbalta] 40 mg PO DAILY metFORMIN HCL 1,000 mg PO BID Neurx-Tf 1 tab PO BID Discharge Medication List Furosemide [Lasix] 40 mg PO DAILY 03/12/18 [History] Losartan [Cozaar] 50 mg PO DAILY 03/12/18 [History] Metoprolol Tartrate [Lopressor] 50 mg PO BID 03/12/18 [History] DULoxetine HCL [Cymbalta] 40 mg PO DAILY 07/31/18 [History] HYDROcodone/APAP 5-325MG [[place]phur 5-325] 1 tab PO Q6HR PRN 07/31/18 [History] Neurx-Tf 1 tab PO BID 07/31/18 [History] Nortriptyline HCl [Pamelor] 10 mg PO HS 07/31/18 [History] Pregabalin [Lyrica] 200 mg PO BID 07/31/18 [History] metFORMIN HCL 1,000 mg PO BID 07/31/18 [History] Cephalexin [Keflex] 500 mg PO Q6HR #40 cap 08/04/18 [Rx] Mupirocin 2% Oint [Bactroban 2% Oint] 1 applic TOPICAL BID applic 08/04/18 [Rx] Naproxen 500 mg PO BID #14 tablet 08/04/18 [Rx] Sulfamethox-Tmp 800-160Mg [Bactrim DS 800-160 mg] 1 tab PO Q12HR #20 tab [Rx] Follow up Appointment(s)/Referral(s): Kimani Hassan MD [Primary Care Provider] - 08/10/18 9:00 am [facility] [NON-STAFF] - Anamika Narvaez MD [STAFF PHYSICIAN] - 08/08/18 4:40 pm Laura Chan MD [STAFF PHYSICIAN] - 08/10/18 11:45 am Patient Instructions/Handouts: Cellulitis (DC) Activity/Diet/Wound Care/Special Instructions: Cut 10 inch iodoform packing and change daily after showering. May cover with paper tape or reusable Koban. Cardiac, diabetic diet. Activity as tolerated. Discharge Disposition: HOME SELF-CARE
[2018-08-04] MEDS ORDERED: HYDROmorphone 1 MG/ML 1 ML SYRINGE IVP ONE ×2 (22:00→22:08)
[2018-08-04 22:18] VITALS: RESP 16
[2018-08-04 22:19] VITALS: BP 132/75; PULSE 64
--- NOTE | 2018-08-05 08:51 | DS ---
DISCHARGE SUMMARY DATE OF ADMISSION: 07/31/18. DATE OF DISCHARGE: 08/04/18. FINAL DIAGNOSES: 1. Areas multiple abscesses, a large one behind the left thigh. Cultures growing MSSA. 2. Diabetes mellitus type 2 on oral hypoglycemic. 3. Essential hypertension. 4. Hyperlipidemia. 5. Primary osteoarthritis. 6. Peripheral neuropathy secondary to diabetes. 7. Chronic gout. HOSPITAL COURSE: This patient presented with multiple areas of abscess in the body, especially large one behind the left thigh. This was rather large and bulky when he first presented. During hospital stay for 4 days, quite a bit of drainage was obtained from the abscess. Today the abscesses had shrunk quite a bit. He did go down to the OR, very little pus was obtained. The care was discussed with Dr. Chan from Infectious Disease. The patient will be sent home on antibiotics with wound care as per Dr. Narvaez. EXAMINATION: Afebrile, pulse 77, respirations 14, blood pressure 143/86, pulse 94 percent on room air. The patient had multiple small wounds, all are shrinking on multiple sites in the body. INVESTIGATIONS: Potassium 4.4. Wound cultures growing MSSA. DISCHARGE MEDICATIONS: 1. Lasix 40 mg a day. 2. Cozaar 50 mg a day. 3. Lopressor 50 mg b.i.d. 4. Cymbalta 40 mg a day. 5. [place] 5 one tablet q.6h p.r.n. 6. Pamelor 10 mg q.h.s. 7. Lyrica 200 mg b.i.d. 8. Metformin 1000 mg b.i.d. 9. Keflex 500 mg q.6 40 capsules. 10.Bactroban 2% ointment topical b.i.d. 11.Naproxen 5 mg b.i.d., 14 tablets. 12.Bactrim DS 1 tab q.12h 20 tablets. Wound care per Dr. Narvaez. FOLLOWUP: Follow up with Dr. Narvaez on 08/08/18. Follow up with Dr. Chan on 08/10/18. Follow up with his family doctor 08/10/18. MMODL / IJN: [id number] /
== END 2018-08-04 23:15 | disposition home or self-care (01) | DRG 572 ==
LOC: EC 22:14 → 3SUR 23:51 → 4MS4W 07-31 14:41 → OBSVTOIN 07-31 16:00 → INTOOBSV 07-31 16:00
PROVIDERS: ADMIT Hospitalist; ATTEND Hospitalist
PROC: 0JBM0ZZ Excision of Left Upper Leg Subcutaneous Tissue and Fascia, Open Approach (ICD-10-PCS; principal; 2018-08-04 16:20)
DX: L03.116 Cellulitis of left lower limb (principal); E11.42 Type 2 diabetes mellitus with diabetic polyneuropathy; I10 Essential (primary) hypertension; E78.5 Hyperlipidemia, unspecified; C43.30 Malignant melanoma of unspecified part of face; L02.416 Cutaneous abscess of left lower limb; M06.9 Rheumatoid arthritis, unspecified; G47.33 Obstructive sleep apnea (adult) (pediatric); M19.91 Primary osteoarthritis, unspecified site; L73.8 Other specified follicular disorders; B95.61 Methicillin susceptible Staphylococcus aureus infection as the cause of diseases classified elsewhere; M1A.9XX0 Chronic gout, unspecified, without tophus (tophi); Z86.14 Personal history of Methicillin resistant Staphylococcus aureus infection; Z79.899 Other long term (current) drug therapy; Z79.84 Long term (current) use of oral hypoglycemic drugs; Z88.8 Allergy status to other drugs, medicaments and biological substances; Z87.442 Personal history of urinary calculi; Z86.73 Personal history of transient ischemic attack (TIA), and cerebral infarction without residual deficits; Z82.49 Family history of ischemic heart disease and other diseases of the circulatory system; Z83.3 Family history of diabetes mellitus; Z82.3 Family history of stroke; Z85.820 Personal history of malignant melanoma of skin
CPT/HCPCS: 36415; 80048; 80053; 80202; 83036; 83605; 85025; 87040; 87070; 87075; 87077; 87186; 87205; 88304; 96365; 96367; 99284

== ENCOUNTER 2021-10-23 02:40 | Inpatient (IN) | payer MEDICARE, OTHER ==
[2021-10-23] MEDS ORDERED: DEXAMETHASONE SOD PHOSPHATE 10 MG/ML 1 ML VIAL IVP STA (02:51)
[2021-10-23] MEDS ORDERED: KETOROLAC 15 MG/ML 1 ML VIAL IVP STA (02:51)
[2021-10-23] MEDS ORDERED: SODIUM CHLORIDE 0.9% 1,000 ML IV STA (02:51)
[2021-10-23] MEDS ORDERED: ALBUTEROL HFA INHALER INHALATION STA (02:51)
[2021-10-23] MEDS ORDERED: ACETAMINOPHEN TAB 500 MG TAB PO STA (02:51)
--- NOTE | 2021-10-23 02:58 | ED ---
Recheck HPI - General Chief Complaint: Shortness of Breath Stated Complaint: JENA Time Seen by Provider: 10/23/21 02:43 Source: patient, EMS, RN notes reviewed, old records reviewed Mode of arrival: EMS Limitations: no limitations - History of Present Illness Initial Comments: This is a 61-year-old male to the emergency department significant for evaluat ion. Patient Dese for evaluation of severe shortness of breath cough or congestion. No diagnosis of coronavirus coronavirus diagnosis was on the patient is about a 14 or 15 of diagnosis. Patient still with significant shortness of breath weakness cough congestion states she was admitted to the hospital discharge yesterday and symptoms worsened. No current chest pain MD Complaint: abnormal lab (Coronavirus positive on 10/09) -: week(s) (2) Returns Today for: Called Because of Abnormal Lab/Test, persistent/worsening pain related to initial visit Symptoms Since Prior Visit: worsening pain, fever Associated Symptoms: fever, chills, shortness of breath, malaise, nausea, abdominal pain Treatments Prior to Arrival: other medications, Given Pain Meds on - Related Data Home Medications Medication Instructions Recorded Confirmed Furosemide [Lasix] 40 mg PO DAILY 03/12/18 07/31/18 Losartan [Cozaar] 50 mg PO DAILY 03/12/18 07/31/18 Metoprolol Tartrate [Lopressor] 50 mg PO BID 03/12/18 07/31/18 DULoxetine HCL [Cymbalta] 40 mg PO DAILY 07/31/18 07/31/18 HYDROcodone/APAP 5-325MG [[place] 1 tab PO Q6HR PRN 07/31/18 07/31/18 5-325] Neurx-Tf 1 tab PO BID 07/31/18 07/31/18 Nortriptyline HCl [Pamelor] 10 mg PO HS 07/31/18 07/31/18 Pregabalin [Lyrica] 200 mg PO BID 07/31/18 07/31/18 metFORMIN HCL [Glucophage] 1,000 mg PO BID 07/31/18 07/31/18 Previous Rx's Medication Instructions Recorded Cephalexin [Keflex] 500 mg PO Q6HR #40 cap 08/04/18 Mupirocin 2% Oint [Bactroban 2% 1 applic TOPICAL BID applic 08/04/18 Oint] Naproxen 500 mg PO BID #14 tablet 08/04/18 Sulfamethox-Tmp 800-160Mg [Bactrim 1 tab PO Q12HR #20 tab 08/04/18 DS 800-160 mg] Allergies Allergy/AdvReac Type Severity Reaction Status Date / Time gabapentin [From Neurontin] AdvReac EXCESSIVE Verified 07/31/18 09:19 SWEATING Review of Systems ROS Statement: Those systems with pertinent positive or pertinent negative responses have been documented in the HPI. ROS Other: All systems not noted in ROS Statement are negative. 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 History of Any Multi-Drug Resistant Organisms: MRSA Date of last positivie culture/infection: 2007 MDRO Source:: back Past Surgical History: Adenoidectomy, Heart Catheterization, Orthopedic Surgery, Prostate Surgery, Tonsillectomy Additional Past Surgical History / Comment(s): Multiple facial surgeries to christian ve melanoma by R eyes lateral corner/neck dissection to remove numerous (70) lymph nodes, UVPP and deviated septum surgery, arthroscopy rt knee, 3 cardiac caths-last one done 04/14/18, TURP and 2 surgeries after to remove scar tissue, surgical removal back sore (MRSA). Past Anesthesia/Blood Transfusion Reactions: Previous Problems w/ Anesthesia Additional Past Anesthesia/Blood Transfusion Reaction / Comment(s): hard to wake up out of anestheia Past Psychological History: No Psychological Hx Reported Past Alcohol Use History: None Reported Past Drug Use History: None Reported - Past Family History Father Family Medical History: Myocardial Infarction (PR) Additional Family Medical History / Comment(s): Father of a PR at the age of 40yrs. Mother Family Medical History: Congestive Heart Failure (CHF), Coronary Artery Disease (CAD), CVA/TIA Additional Family Medical History / Comment(s): Mother had mitral valve regurgitation. She had a "massive" stroke and of CHF at the age of 75yrs. Brother(s) Family Medical History: Diabetes Mellitus Additional Family Medical History / Comment(s): Pt had one brother of a PR at the age of 50 yrs, another brother of a PR at the age of 55yrs after CABG and another brother who has 3 stents. General Exam Limitations: no limitations General appearance: alert, anxious, in distress Head exam: Present: atraumatic, normocephalic, normal inspection Eye exam: Present: normal appearance, PERRL, EOMI. Absent: scleral icterus, conjunctival injection, periorbital swelling ENT exam: Present: normal exam, mucous membranes dry Neck exam: Present: normal inspection. Absent: tenderness, meningismus, lymphadenopathy Respiratory exam: Present: respiratory distress, wheezes, rhonchi, accessory muscle use, decreased breath sounds, prolonged expiratory. Absent: rales, stridor Cardiovascular Exam: Present: normal rhythm, tachycardia, normal heart sounds. Absent: systolic murmur, diastolic murmur, rubs, gallop, clicks GI/Abdominal exam: Present: soft, normal bowel sounds. Absent: distended, tenderness, guarding, rebound, rigid Extremities exam: Present: normal inspection, full ROM, normal capillary refill. Absent: tenderness, pedal edema, joint swelling, calf tenderness Back exam: Present: normal inspection Neurological exam: Present: alert, oriented X3, CN II-XII intact Psychiatric exam: Present: normal affect, normal mood Skin exam: Present: warm, dry, intact, normal color. Absent: rash Course Vital Signs 10/23/21 10/23/21 02:42 05:55 Temperature 98.3 F Pulse Rate 100 82 Respiratory 20 18 Rate Blood Pressure 142/88 131/83 O2 Sat by Pulse 92 L 92 L Oximetry - Reevaluation(s) Reevaluation #1: 10/23/21 06:20 Medical record is reviewed Reevaluation #2: 10/23/21 06:20 Patient still with significant shortness of breath here in the emergency department Reevaluation #3: 10/23/21 06:21 Patient informed results and questions answered Reevaluation #4: 10/23/21 06:21 Patient is improving with supplemental O2 - Consultations Consultation #1: spoke W Dr Russo agrees to admit this patient Medical Decision Making - Medical Decision Making 61 male to the ER for evaluation patient presents today for evaluation regards to persistent severe weakness and shortness of breath from coronavirus. Patient is hypoxic on arrival to ER. Patient be admitted for persistent hypoxia secondary to coronavirus with pneumonia - Lab Data Result diagrams: 10/23/21 02:51 10/23/21 02:51 Lab Results 10/23/21 10/23/21 10/23/21 Range/Units 02:51 02:51 02:51 WBC 9.9 (3.8-10.6) k/uL RBC 4.91 (4.30-5.90) m/uL Hgb 16.0 (13.0-17.5) gm/dL Hct 46.1 (39.0-53.0) % MCV 93.8 (80.0-100.0) fL MCH 32.7 (25.0-35.0) pg MCHC 34.8 (31.0-37.0) g/dL RDW 12.3 (11.5-15.5) % Plt Count 234 (150-450) k/uL MPV 8.6 PT 11.9 (9.0-12.0) sec INR 1.1 (<1.2) APTT 22.2 (22.0-30.0) sec Sodium 141 (137-145) mmol/L Potassium 3.4 L (3.5-5.1) mmol/L Chloride 101 (98-107) mmol/L Carbon Dioxide 23 (22-30) mmol/L Anion Gap 17 mmol/L BUN 23 H (9-20) mg/dL Creatinine 0.81 (0.66-1.25) mg/dL Est GFR (CKD-EPI)AfAm >90 (>60 ml/min/1.73 sqM) Est GFR (CKD-EPI)NonAf >90 (>60 ml/min/1.73 sqM) Glucose 244 H (74-99) mg/dL Plasma Lactic Acid Manuel (0.7-2.0) mmol/L Calcium 8.7 (8.4-10.2) mg/dL Magnesium 2.2 (1.6-2.3) mg/dL Total Bilirubin 0.7 (0.2-1.3) mg/dL AST 49 (17-59) U/L ALT 38 (4-49) U/L Alkaline Phosphatase 71 (38-126) U/L Lactate Dehydrogenase 1422 H (313-618) U/L C-Reactive Protein 7.5 H (<1.0) mg/dL NT-Pro-B Natriuret Pep pg/mL Total Protein 7.2 (6.3-8.2) g/dL Albumin 4.0 (3.5-5.0) g/dL 10/23/21 10/23/21 Range/Units 02:51 02:51 WBC (3.8-10.6) k/uL RBC (4.30-5.90) m/uL Hgb (13.0-17.5) gm/dL Hct (39.0-53.0) % MCV (80.0-100.0) fL MCH (25.0-35.0) pg MCHC (31.0-37.0) g/dL RDW (11.5-15.5) % Plt Count (150-450) k/uL MPV PT (9.0-12.0) sec INR (<1.2) APTT (22.0-30.0) sec Sodium (137-145) mmol/L Potassium (3.5-5.1) mmol/L Chloride (98-107) mmol/L Carbon Dioxide (22-30) mmol/L Anion Gap mmol/L BUN (9-20) mg/dL Creatinine (0.66-1.25) mg/dL Est GFR (CKD-EPI)AfAm (>60 ml/min/1.73 sqM) Est GFR (CKD-EPI)NonAf (>60 ml/min/1.73 sqM) Glucose (74-99) mg/dL Plasma Lactic Acid Manuel 2.9 H* (0.7-2.0) mmol/L Calcium (8.4-10.2) mg/dL Magnesium (1.6-2.3) mg/dL Total Bilirubin (0.2-1.3) mg/dL AST (17-59) U/L ALT (4-49) U/L Alkaline Phosphatase (38-126) U/L Lactate Dehydrogenase (313-618) U/L C-Reactive Protein (<1.0) mg/dL NT-Pro-B Natriuret Pep 185 pg/mL Total Protein (6.3-8.2) g/dL Albumin (3.5-5.0) g/dL - Radiology Data Radiology results: report reviewed (Chest x-ray with multifocal bilateral pneumonia and CHF), image reviewed Critical Care Time Critical Care Time: Yes Total Critical Care Time: 31 Disposition Clinical Impression: Coronavirus infection, COVID-19, Pneumonia due to COVID-19 virus, Hypoxia, Congestive heart failure, Acute pulmonary edema Disposition: ADMITTED IP TO THIS HOSP Condition: Fair Is patient prescribed a controlled substance at d/c from ED?: No Referrals: Kimani Hassan MD [Primary Care Provider] - 1-2 days
[2021-10-23 04:10] LABS: HCT 46.1 % (39.0-53.0); MCH 32.7 pg (25.0-35.0); MCHC 34.8 g/dL (31.0-37.0); MCV 93.8 fL (80.0-100.0); Mean Platelet Volume 8.6; Platelet Count 234 k/uL (150-450); RBC 4.91 m/uL (4.30-5.90); RDW 12.3 % (11.5-15.5); WBC 9.9 k/uL (3.8-10.6)
[2021-10-23] MEDS: SODIUM CHLORIDE 0.9% 1,000 ML IV SCH ×3 (04:17→17:29)
[2021-10-23 04:22] LABS: ALT 38 U/L (4-49); AST 49 U/L (17-59); African American GFR (CKD) >90 (>60 ml/min/1.73 sqM); Alkaline Phosphatase 71 U/L (38-126); Anion Gap 17 mmol/L; Blood Urea Nitrogen 23 mg/dL (9-20); C Reactive Protein 7.5 mg/dL (<1.0); Calcium 8.7 mg/dL (8.4-10.2); Carbon Dioxide 23 mmol/L (22-30); Chloride 101 mmol/L (98-107); Glucose 244 mg/dL (74-99); LDH 1422 U/L (313-618); Magnesium 2.2 mg/dL (1.6-2.3); Non-African American GFR(CKD) >90 (>60 ml/min/1.73 sqM); Potassium 3.4 mmol/L (3.5-5.1); Sodium 141 mmol/L (137-145); Total Bilirubin 0.7 mg/dL (0.2-1.3); Total Protein 7.2 g/dL (6.3-8.2)
[2021-10-23 04:36] LABS: INR 1.1 (<1.2); Partial Thromboplastin Time 22.2 sec (22.0-30.0); Prothrombin Time 11.9 sec (9.0-12.0)
--- NOTE | 2021-10-23 04:46 | XR ---
EXAMINATION TYPE: XR chest 1V portable DATE OF EXAM: 10/23/2021 COMPARISON: 03/15/2018 HISTORY: Chest pressure TECHNIQUE: Single view FINDINGS: There is moderate pulmonary interstitial diffuse infiltrate. Heart size is fairly normal. B dax thorax is intact. There is no definite pleural effusion. IMPRESSION: Moderate pulmonary interstitial edema. This could be acute heart failure or acute pneumon ia. Abnormality appears new compared to old exam.
[2021-10-23] MEDS ORDERED: NALOXONE 0.4 MG/ML 1 ML VIAL IV PRN (06:17)
[2021-10-23] MEDS ORDERED: ONDANSETRON 4 MG/2 ML VIAL IVP PRN (06:17)
[2021-10-23] MEDS ORDERED: MORPHINE SULFATE 4 MG/ML SYRINGE IV PRN (06:17)
[2021-10-23] MEDS ORDERED: IBUPROFEN 400 MG TAB PO PRN (06:17)
[2021-10-23 06:19] LABS: Band Neutrophils % 4 %; Lymphocytes # (M) 1.49 k/uL (1.0-4.8); Neutrophils % (M) 78 %; Nucleated Red Blood Cells 0 /100 WBC (0-0); Total Cells Counted 100
[2021-10-23 06:25] LABS: Anisocytosis (M) Present
[2021-10-23 06:34] LABS: Large Platelets Present
[2021-10-23 06:35] LABS: Polychromasia Present
[2021-10-23] MEDS: ENOXAPARIN 40 MG/0.4 ML SYRINGE SQ SCH (09:49)
[2021-10-23] MEDS: ACETAMINOPHEN TAB 325 MG TAB PO PRN ×2 (09:49→21:22)
[2021-10-23] MEDS: DEXAMETHASONE SOD PHOSPHATE 10 MG/ML 1 ML VIAL IVP SCH (09:49)
[2021-10-23] MEDS ORDERED: ACETAMINOPHEN TAB 500 MG TAB PO PRN (10:57)
[2021-10-23] MEDS ORDERED: ALPRAZolam 0.25 MG TAB PO PRN (10:57)
[2021-10-23] MEDS ORDERED: ALBUTEROL NEBULIZED 2.5 MG/3 ML INHALATION PRN (10:57)
--- NOTE | 2021-10-23 11:55 | P.CNPUL ---
History of Present Illness Consult date: 10/23/21 Requesting physician: Donald Schaffer Reason for consult: dyspnea, cough, hypoxemia, abnormal CXR/CT Chief complaint: Cough, shortness of breath, weakness History of present illness: 61-year-old male patient with past medical history of diabetes mellitus type 2 with diabetic neuropathy, hypertension, hyperlipidemia, previous history of CVA, rheumatoid arthritis, obstructive sleep apnea S/P UPPP, history of right eye melanoma with previous surgeries, BPH with previous TURP, chronic lower extremity edema, cellulitis, gout, presented to the emergency department on 10/23/2021 at 240 3 in the morning with complaints of severe shortness of breath, cough, congestion. Patient states he has had symptoms since October 09, initially was tested via rapid COVID-19 PCR test which was negative however the send out PCR test came back positive. He states over the last 2 weeks his symptoms continue to worsen, he feels weak, short of breath, complains of cough and chest congestion. No chest pain. He has not been vaccinated against COVID- 19. He does endorse fever, malaise, nausea, abdominal pain. His chest x-ray showed moderate pulmonary testicular edema. His lab work has been reviewed showing white blood cell count of 9.9, hemoglobin 16, platelet count is 234, neutrophils 8.1, lymphocyte count is 1.49, INR is 1.1, sodium is 141, potassium is 3.4, chloride is 101, CO2 is 23, BUN is 23 creatinine 0.81, plasma lactic acid was 2.9 and is currently down to 1.7, LDH was 1422, proBNP was 185, LFTs were within normal limits. Patient is currently requiring 8 L of oxygen his pulse ox is 96%, he still has a congested cough, he has been afebrile, he is short of breath with any exertion. Denies any hemoptysis or chest discomfort. Has been started on Decadron 6 mg daily, he was given IV hydration with 1 L bolus, and currently receiving 0.9 normal saline at a rate of 1:30 ML per hour, his lactic acid has improved. Patient is outside the window for Remdesivir. Review of Systems All systems: negative Constitutional: Reports fatigue, Reports weakness, Denies chills, Denies fever Eyes: denies blurred vision, denies pain Ears, nose, mouth and throat: Denies headache, Denies sore throat Cardiovascular: Denies chest pain, Denies shortness of breath Respiratory: Reports congestion, Reports cough, Reports cough with sputum, Reports dyspnea Gastrointestinal: Reports abdominal pain, Reports nausea, Denies diarrhea, Denies vomiting Musculoskeletal: Denies myalgias Integumentary: Denies pruritus, Denies rash Neurological: Denies numbness, Denies weakness Psychiatric: Denies anxiety, Denies depression Endocrine: Denies fatigue, Denies weight change Past Medical History Past Medical History: Cancer, CVA/TIA, Diabetes Mellitus, Hyperlipidemia, Hypertension, Prostate Disorder, Rheumatoid Arthritis (RA), Sleep Apnea/CPAP/ BIPAP Additional Past Medical History / Comment(s): 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 History of Any Multi-Drug Resistant Organisms: MRSA Date of last positivie culture/infection: 2007 MDRO Source:: back Past Surgical History: Adenoidectomy, Heart Catheterization, Orthopedic Surgery, Prostate Surgery, Tonsillectomy Additional Past Surgical History / Comment(s): Multiple facial surgeries to remove melanoma by R eyes lateral corner/neck dissection to remove numerous (70) lymph nodes, UVPP and deviated septum surgery, arthroscopy rt knee, 3 cardiac caths-last one done 04/14/18, TURP and 2 surgeries after to remove scar tissue, surgical removal back sore (MRSA). Past Anesthesia/Blood Transfusion Reactions: Previous Problems w/ Anesthesia Additional Past Anesthesia/Blood Transfusion Reaction / Comment(s): hard to wake up out of anestheia Past Psychological History: No Psychological Hx Reported Additional Psychological History / Comment(s): Pt resides with his daughter. He uses no assistive device. He drives. He recently was approved for disablitiy but still needs to apply for medicaid. Smoking Status: Never smoker Past Alcohol Use History: None Reported Past Drug Use History: None Reported - Past Family History Father Family Medical History: Myocardial Infarction (ME) Additional Family Medical History / Comment(s): Father of a ME at the age of 40yrs. Mother Family Medical History: Congestive Heart Failure (CHF), Coronary Artery Disease (CAD), CVA/TIA Additional Family Medical History / Comment(s): Mother had mitral valve regurgitation. She had a "massive" stroke and of CHF at the age of 75yrs. Brother(s) Family Medical History: Diabetes Mellitus Additional Family Medical History / Comment(s): Pt had one brother of a ME at the age of 50 yrs, another brother of a ME at the age of 55yrs after CABG and another brother who has 3 stents. Medications and Allergies Home Medications Medication Instructions Recorded Confirmed Type Furosemide [Lasix] 40 mg PO DAILY 03/12/18 10/23/21 History Losartan [Cozaar] 50 mg PO DAILY 03/12/18 10/23/21 History Metoprolol Tartrate [Lopressor] 50 mg PO BID 03/12/18 10/23/21 History Pregabalin [Lyrica] 200 mg PO BID 07/31/18 10/23/21 History metFORMIN HCL [Glucophage] 1,000 mg PO BID 07/31/18 10/23/21 History ALPRAZolam [Xanax] 0.25 mg PO BID PRN 10/23/21 10/23/21 History Acarbose 50 mg PO TID-W/MEALS 10/23/21 10/23/21 History Acetaminophen Tab [Tylenol Tab] 500 mg PO Q8H PRN 10/23/21 10/23/21 History Albuterol Nebulized [Ventolin 2.5 mg INHALATION RT-QID PRN 10/23/21 10/23/21 History Nebulized] Albuterol Sulfate [Ventolin HFA] 2 puff INHALATION RT-Q6H PRN 10/23/21 10/23/21 History Amitriptyline HCl [Elavil] 50 mg PO HS 10/23/21 10/23/21 History Clotrimazole/Betameth Cream 1 applic TOPICAL BID 10/23/21 10/23/21 History [Lotrisone] Fenofibrate Nanocrystallized 48 mg PO DAILY 10/23/21 10/23/21 History [Fenofibrate] Ibuprofen [Motrin] 800 mg PO Q8H PRN 10/23/21 10/23/21 History Sertraline [Zoloft] 50 mg PO DAILY 10/23/21 10/23/21 History carBAMazepine [TEGretol] 400 mg PO BID 10/23/21 10/23/21 History glipiZIDE XL [Glucotrol Xl] 10 mg PO DAILY 10/23/21 10/23/21 History Allergies Allergy/AdvReac Type Severity Reaction Status Date / Time gabapentin [From Neurontin] AdvReac EXCESSIVE Verified 10/23/21 08:15 SWEATING Physical Exam Vitals: Vital Signs Temp Pulse Pulse Resp BP BP Pulse Ox 10/23/21 10:29 98.1 F 72 24 144/92 96 10/23/21 08:16 67 20 150/78 97 10/23/21 05:55 82 18 131/83 92 L 10/23/21 02:42 98.3 F 100 20 142/88 92 L Intake and Output 10/22/21 10/23/21 10/23/21 22:59 06:59 14:59 Other: Weight 81.647 kg 81.647 kg GENERAL EXAM: Alert, very pleasant, 61-year-old white male, currently on 8 L of oxygen and the pulse ox of 96%, has a congested cough, but appears to be in no acute distress comfortable in no apparent distress. HEAD: Normocephalic/atraumatic. EYES: Normal reaction of pupils, equal size. Conjunctiva pink, sclera white. NOSE: Clear with pink turbinates. THROAT: No erythema or exudates. NECK: No masses, no JVD, no thyroid enlargement, no adenopathy. CHEST: No chest wall deformity. Symmetrical expansion. LUNGS: Equal air entry with diffuse crackles CVS: Regular rate and rhythm, normal S1 and S2, no gallops, no murmurs, no rubs ABDOMEN: Soft, nontender. No hepatosplenomegaly, normal bowel sounds, no guarding or rigidity. EXTREMITIES: No clubbing, no edema, no cyanosis, 2+ pulses and upper and lower extremities. MUSCULOSKELETAL: Muscle strength and tone normal. SPINE: No scoliosis or deformity SKIN: No rashes CENTRAL NERVOUS SYSTEM: Alert and oriented -3. No focal deficits, tone is normal in all 4 extremities. PSYCHIATRIC: Alert and oriented -3. Appropriate affect. Intact judgment and insight. Results - Laboratory Findings CBC and BMP: 10/23/21 02:51 10/23/21 02:51 PT/INR, D-dimer PT 11.9 sec (9.0-12.0) 10/23/21 02:51 INR 1.1 (<1.2) 10/23/21 02:51 Abnormal lab findings: Abnormal Labs 10/23/21 10/23/21 10/23/21 02:51 02:51 02:51 Neutrophils # (Manual) 8.10 H Potassium 3.4 L BUN 23 H Glucose 244 H Plasma Lactic Acid Manuel 2.9 H* Lactate Dehydrogenase 1422 H C-Reactive Protein 7.5 H - Diagnostic Findings Chest x-ray: report reviewed, image reviewed Additional studies: EKG reviewed Assessment and Plan Plan: Assessment: #1. Acute hypoxic respiratory failure related to acute COVID-19 related pneumonia, patient presented to the emergency department on 10/23/2021 with 2 week history of symptoms, patient is outside the window for Remdesivir, he is a non-vaccinated adult. Currently on 8 L of oxygen #2. Diabetes mellitus type 2 with diabetic neuropathy #3. Hypertension #4. Hyperlipidemia #5. BPH with previous history of TURP #6. Obstructive sleep apnea with previous history of UPPP #7. History of right eye melanoma with multiple surgeries #8. Previous history of CVA #9. Rheumatoid arthritis #10. History of gout #11. Previous history of MRSA infection in the wound on his back #12. Mild lactic acidosis, improved with IV hydration #13. Elevated inflammatory markers related to acute COVID-19 pneumonia Plan: Patient is outside the window for Remdesivir Continue Decadron 6 mg daily Continue prophylactic Lovenox and COVID-19 multivitamins Continue IV hydration We will send a d-dimer, pro-calcitonin level We will defer blood sugar management to primary care service We'll continue to follow his clinical course I performed a history & physical examination of the patient and discussed their management with my nurse practitioner, Linda Giordano. I reviewed the nurse practitioner's note and agree with the documented findings and plan of care. Lung sounds are positive for dim with diffuse wheezes throughout the lung malone. The findings and the impression was discussed with the patient. I attest to the documentation by the nurse practitioner. Time with Patient: Greater than 30
[2021-10-23] MEDS: ALBUTEROL HFA INHALER INHALATION PRN ×3 (12:15→20:36)
[2021-10-23] MEDS: ACARBOSE 25 MG TAB PO SCH ×2 (13:14→17:28)
[2021-10-23] MEDS: carBAMazepine 200 MG TAB PO SCH ×2 (13:14→21:21)
[2021-10-23] MEDS: PREGABALIN 100 MG CAP PO SCH ×2 (13:15→21:22)
[2021-10-23] MEDS: SERTRALINE 50 MG TAB PO SCH (13:15)
[2021-10-23] MEDS: METOPROLOL TARTRATE 50 MG TAB PO SCH ×2 (13:15→21:21)
[2021-10-23] MEDS: CLOTRIMAZOLE/BETAMETH 1-0.05% CREAM 45 GM TUBE TOPICAL SCH ×2 (13:17→21:23)
[2021-10-23] MEDS ORDERED: CALCIUM CARBONATE 500 MG CHEWABLE PO PRN (18:40)
[2021-10-23] MEDS ORDERED: LACTULOSE 20 GM/30 ML CUP PO PRN (18:40)
--- NOTE | 2021-10-23 18:44 | P.HPIM ---
History of Present Illness H&P Date: 10/23/21 Chief Complaint: Short of breath This is a pleasant 61-year-old patient, chronic stable medical conditions include diabetes, hypertension, hyperlipidemia, osteoarthritis, peripheral neuropathy, chronic gout. Patient presents with increasing shortness of breath. Cough. Clear sputum. Fever and chills. Tired rundown decrease appetite and diarrhea about 2 times a day. Patient tested positive for COVID-19 on October 09. His initial rapid COVID-19 was negative. In the send out came back positive. Patient did not take the vaccine against COVID-19. He is on 8 L of o xygen this morning. He is outside the window for Remdesivir. Review of systems: GEN.: Tired, fever or chills, decreased appetite EYES: None HEENT: None NECK: None RESPIRATORY: As above CARDIOVASCULAR: None GASTROINTESTINAL: As above GENITOURINARY: None MUSCULOSKELETAL: None LYMPHATICS: None HEMATOLOGICAL: None PSYCHIATRY: None NEUROLOGICAL: None Social history: Patient is on Social Security. Does not smoke or drink alcohol. Patient's daughters family lives with him. Family history: Father at the age of 40 with heart attack Physical examination: VITAL SIGNS: 98.3, 100, 20, 142/88, 92% on 5 L upon presentation GENERAL: BMI 27.4, sitting up bed, in awake, tired. EYES: Pupils equal. Conjunctiva normal. HEENT: External appearance of nose and ears normal, oral cavity grossly normal. NECK: JVD not raised; masses not palpable. HEART: First and second heart sounds are normal; no edema. LUNGS: Respiratory rate increased, decreased breath sounds. ABDOMEN: Soft, nontender, liver spleen not palpable, no masses palpable. PSYCH: Alert and oriented x3; mood and affect normal. NEUROLOGICAL: Cranial nerves grossly intact; no facial asymmetry, power and sensation grossly intact. LYMPHATICS: No lymph nodes palpable in the axilla and neck INVESTIGATIONS, reviewed in the clinical context: White count 9.9 hemoglobin 16 platelets 234 d-dimer 0.98 sodium 141 potassium 3. 4 creatinine 0.81 Lactic acid 2.9 LDH 1422 CRP 7.5 EKG tracing personally reviewed by me-normal sinus rhythm. Nonspecific ST segment changes. Chest x-ray film personally reviewed by me-bilateral infiltrates Assessment and plan: -Acute severe COVID 19 pneumonitis in a patient who did not take the COVID-19 vaccine Dexamethasone, vitamin C, vitamin D, zinc. Patient's outside the window for Remdesivir. -Acute hypoxic respiratory failure from COVID-19 Currently on 8 L of nasal cannula -Essential hypertension Lopressor 50 mg twice a day, Cozaar 50 mg daily -Diabetes mellitus type 2, on oral hypoglycemic Glucophage thousand milligrams twice a day. Follow Accu-Chek. Precose -Chronic insomnia for medical conditions Elavil 50 mg daily at bedtime -Hyperlipidemia TriCor 48 mg daily -Obstructive sleep apnea Use CPAP -Diabetic peripheral neuropathy Lyrica 200 mg twice daily Dexamethasone. Follow Accu-Cheks. Home medications resumed. Oxygen supplementation. Pulmonary consulted. Subcu Lovenox. Care was discussed with the patient. Questions answered. 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 History of Any Multi-Drug Resistant Organisms: MRSA Date of last positivie culture/infection: 2007 MDRO Source:: back Past Surgical History: Adenoidectomy, Heart Catheterization, Orthopedic Surgery, Prostate Surgery, Tonsillectomy Additional Past Surgical History / Comment(s): Multiple facial surgeries to remove melanoma by R eyes lateral corner/neck dissection to remove numerous (70) lymph nodes, UVPP and deviated septum surgery, arthroscopy rt knee, 3 cardiac caths-last one done 04/14/18, TURP and 2 surgeries after to remove scar tissue, surgical removal back sore (MRSA). Past Anesthesia/Blood Transfusion Reactions: Previous Problems w/ Anesthesia Additional Past Anesthesia/Blood Transfusion Reaction / Comment(s): hard to wake up out of anestheia Past Psychological History: No Psychological Hx Reported Additional Psychological History / Comment(s): Pt resides with his daughter. He uses no assistive device. He drives. He recently was approved for disablitiy but still needs to apply for medicaid. Smoking Status: Never smoker Past Alcohol Use History: None Reported Past Drug Use History: None Reported - Past Family History Father Family Medical History: Myocardial Infarction (RI) Additional Family Medical History / Comment(s): Father of a RI at the age of 40yrs. Mother Family Medical History: Congestive Heart Failure (CHF), Coronary Artery Disease (CAD), CVA/TIA Additional Family Medical History / Comment(s): Mother had mitral valve reg urgitation. She had a "massive" stroke and of CHF at the age of 75yrs. Brother(s) Family Medical History: Diabetes Mellitus Additional Family Medical History / Comment(s): Pt had one brother of a RI at the age of 50 yrs, another brother of a RI at the age of 55yrs after CABG and another brother who has 3 stents. Medications and Allergies Home Medications Medication Instructions Recorded Confirmed Type Furosemide [Lasix] 40 mg PO DAILY 03/12/18 10/23/21 History Losartan [Cozaar] 50 mg PO DAILY 03/12/18 10/23/21 History Metoprolol Tartrate [Lopressor] 50 mg PO BID 03/12/18 10/23/21 History Pregabalin [Lyrica] 200 mg PO BID 07/31/18 10/23/21 History metFORMIN HCL [Glucophage] 1,000 mg PO BID 07/31/18 10/23/21 History ALPRAZolam [Xanax] 0.25 mg PO BID PRN 10/23/21 10/23/21 History Acarbose 50 mg PO TID-W/MEALS 10/23/21 10/23/21 History Acetaminophen Tab [Tylenol Tab] 500 mg PO Q8H PRN 10/23/21 10/23/21 History Albuterol Nebulized [Ventolin 2.5 mg INHALATION RT-QID PRN 10/23/21 10/23/21 History Nebulized] Albuterol Sulfate [Ventolin HFA] 2 puff INHALATION RT-Q6H PRN 10/23/21 10/23/21 History Amitriptyline HCl [Elavil] 50 mg PO HS 10/23/21 10/23/21 History Clotrimazole/Betameth Cream 1 applic TOPICAL BID 10/23/21 10/23/21 History [Lotrisone] Fenofibrate Nanocrystallized 48 mg PO DAILY 10/23/21 10/23/21 History [Fenofibrate] Ibuprofen [Motrin] 800 mg PO Q8H PRN 10/23/21 10/23/21 History Sertraline [Zoloft] 50 mg PO DAILY 10/23/21 10/23/21 History carBAMazepine [TEGretol] 400 mg PO BID 10/23/21 10/23/21 History glipiZIDE XL [Glucotrol Xl] 10 mg PO DAILY 10/23/21 10/23/21 History Allergies Allergy/AdvReac Type Severity Reaction Status Date / Time gabapentin [From Neurontin] AdvReac EXCESSIVE Verified 10/23/21 08:15 SWEATING Physical Exam Vitals: Vital Signs Temp Pulse Pulse Resp BP BP Pulse Ox 10/23/21 10:29 98.1 F 72 24 144/92 96 10/23/21 08:16 67 20 150/78 97 10/23/21 05:55 82 18 131/83 92 L 10/23/21 02:42 98.3 F 100 20 142/88 92 L Intake and Output 10/22/21 10/23/21 10/23/21 22:59 06:59 14:59 Other: Weight 81.647 kg 81.647 kg Results CBC & Chem 7: 10/23/21 02:51 10/23/21 02:51 Labs: Abnormal Lab Results - Last 24 Hours (Table) 10/23/21 10/23/21 10/23/21 Range/Units 02:51 02:51 02:51 Neutrophils # (Manual) 8.10 H (1.3-7.7) k/uL Potassium 3.4 L (3.5-5.1) mmol/L BUN 23 H (9-20) mg/dL Glucose 244 H (74-99) mg/dL Plasma Lactic Acid Manuel 2.9 H* (0.7-2.0) mmol/L Lactate Dehydrogenase 1422 H (313-618) U/L C-Reactive Protein 7.5 H (<1.0) mg/dL Thrombosis Risk Factor Assmnt - Choose All That Apply Each Factor Represents 1 point: Age 41-60 years Thrombosis Risk Factor Assessment Total Risk Factor Score: 1 Thrombosis Risk Factor Assessment Level: Low Risk
[2021-10-23 20:34] LABS: Glucose,Whole Blood 270 mg/dL (75-99)
[2021-10-23] MEDS ORDERED: INSULIN ASPART (NovoLOG) 100 UNIT/ML VIAL SQ SCH (21:00)
[2021-10-23] MEDS: INSULIN ASPART (NovoLOG) 100 UNIT/ML VIAL SQ SCH (21:21)
[2021-10-23] MEDS: AMITRIPTYLINE HCL 50 MG TAB PO SCH (21:22)
[2021-10-24] MEDS: SODIUM CHLORIDE 0.9% 1,000 ML IV SCH ×3 (04:41→17:16)
[2021-10-24 07:10] LABS: Glucose,Whole Blood 180 mg/dL (75-99)
[2021-10-24] MEDS: INSULIN ASPART (NovoLOG) 100 UNIT/ML VIAL SQ SCH ×4 (08:07→21:34)
[2021-10-24] MEDS: ENOXAPARIN 40 MG/0.4 ML SYRINGE SQ SCH (08:07)
[2021-10-24] MEDS: PREGABALIN 100 MG CAP PO SCH ×2 (08:08→21:35)
[2021-10-24] MEDS: ACARBOSE 25 MG TAB PO SCH ×3 (08:08→17:16)
[2021-10-24] MEDS: METOPROLOL TARTRATE 50 MG TAB PO SCH ×2 (08:08→21:36)
[2021-10-24] MEDS: SERTRALINE 50 MG TAB PO SCH (08:08)
[2021-10-24] MEDS: CLOTRIMAZOLE/BETAMETH 1-0.05% CREAM 45 GM TUBE TOPICAL SCH ×2 (08:10→21:36)
[2021-10-24] MEDS: carBAMazepine 200 MG TAB PO SCH ×2 (08:10→21:35)
--- NOTE | 2021-10-24 08:52 | XR ---
EXAMINATION TYPE: XR chest 1V DATE OF EXAM: 10/24/2021 COMPARISON: 10/23/2021 HISTORY: 61 years Male. STUDY INDICATION GIVEN: covid . TECHNIQUE: AP upright chest radiograph IMPRESSION: Relatively unchanged or perhaps slightly improved bilateral interstitial and airspace opacities more the difference in appearance could be attributed to difference in technique. No pneumothorax or large effusion. Mild prominence of the heart size likely accentuated by low lung volume. Osseous structures are stable compared to prior.
[2021-10-24 08:59] LABS: HCT 45.3 % (39.0-53.0); HGB 15.3 gm/dL (13.0-17.5); MCH 32.2 pg (25.0-35.0); MCHC 33.7 g/dL (31.0-37.0); MCV 95.6 fL (80.0-100.0); Mean Platelet Volume 9.2; Platelet Count 221 k/uL (150-450); RBC 4.73 m/uL (4.30-5.90); RDW 12.5 % (11.5-15.5); WBC 9.7 k/uL (3.8-10.6)
[2021-10-24 09:04] LABS: ALT 34 U/L (4-49); AST 50 U/L (17-59); African American GFR (CKD) >90 (>60 ml/min/1.73 sqM); Albumin 3.6 g/dL (3.5-5.0); Albumin/Globulin Ratio 1.2; Alkaline Phosphatase 57 U/L (38-126); Anion Gap 12 mmol/L; Blood Urea Nitrogen 19 mg/dL (9-20); C Reactive Protein 5.5 mg/dL (<1.0); Calcium 8.5 mg/dL (8.4-10.2); Carbon Dioxide 26 mmol/L (22-30); Chloride 103 mmol/L (98-107); Glucose 194 mg/dL (74-99); LDH 1592 U/L (313-618); Non-African American GFR(CKD) >90 (>60 ml/min/1.73 sqM); Sodium 141 mmol/L (137-145); Total Bilirubin 0.8 mg/dL (0.2-1.3); Total Protein 6.6 g/dL (6.3-8.2)
[2021-10-24 09:13] LABS: Potassium 4.2 mmol/L (3.5-5.1)
[2021-10-24 09:54] LABS: Lymphocytes # (M) 1.16 k/uL (1.0-4.8); Monocytes # (M) 0.58 k/uL (0-1.0); Neutrophils # (M) 7.95 k/uL (1.3-7.7); Neutrophils % (M) 82 %; Nucleated Red Blood Cells 0 /100 WBC (0-0); Total Cells Counted 100
[2021-10-24] MEDS: DEXAMETHASONE SOD PHOSPHATE 10 MG/ML 1 ML VIAL IVP SCH (10:06)
[2021-10-24 11:53] LABS: Glucose,Whole Blood 191 mg/dL (75-99)
--- NOTE | 2021-10-24 14:55 | P.PN ---
Subjective Progress Note Date: 10/24/21 Principal diagnosis: 61-year-old male patient with past medical history of diabetes mellitus type 2 with diabetic neuropathy, hypertension, hyperlipidemia, previous history of CVA, rheumatoid arthritis, obstructive sleep apnea S/P UPPP, history of right eye melanoma with previous surgeries, BPH with previous TURP, chronic lower extremity edema, cellulitis, gout, presented to the emergency department on 10/23/2021 at 240 3 in the morning with complaints of severe shortness of breath, cough, congestion. Patient states he has had symptoms since October 09, initially was tested via rapid COVID-19 PCR test which was negative however the send out PCR test came back positive. He states over the last 2 weeks his symptoms continue to worsen, he feels weak, short of breath, complains of cough and chest congestion. No chest pain. He has not been vaccinated against COVID-19. He does endorse fever, malaise, nausea, abdominal pain. His chest x- ray showed moderate pulmonary testicular edema. His lab work has been reviewed showing white blood cell count of 9.9, hemoglobin 16, platelet count is 234, neutrophils 8.1, lymphocyte count is 1.49, INR is 1.1, sodium is 141, potassium is 3.4, chloride is 101, CO2 is 23, BUN is 23 creatinine 0.81, plasma lactic acid was 2.9 and is currently down to 1.7, LDH was 1422, proBNP was 185, LFTs were within normal limits. Patient is currently requiring 8 L of oxygen his pulse ox is 96%, he still has a congested cough, he has been afebrile, he is short of breath with any exertion. Denies any hemoptysis or chest discomfort. Has been started on Decadron 6 mg daily, he was given IV hydration with 1 L bolus, and currently receiving 0.9 normal saline at a rate of 1:30 ML per hour, his lactic acid has improved. Patient is outside the window for Remdesivir. The patient is seen today 10/24/2021 in follow-up on the regular medical floor. He is currently sitting up in a chair at the bedside. Awake alert in no acute distress. Doing about the same today as compared to yesterday. He is on 11 L high flow nasal cannula to maintain O2 saturations in the 90s. He is dyspneic with conversation. Dyspneic with minimal exertion. Follow-up chest x-ray is unchanged. Still with bilateral interstitial and airspace opacities. No pneumothorax or large effusions. White count 9.7. Hemoglobin 15.3. D-dimer 1.93 sodium 141 potassium 4.2. Creatinine 0.71. LDH 1592. C-reactive protein 5.5. Pro-calcitonin 0.08. He is continued on Decadron, Lovenox, vitamin supplements. Objective - Vital Signs Vital signs: Vital Signs Temp 97.8 F 10/24/21 06:28 Pulse 57 L 10/24/21 06:28 Resp 30 H 10/24/21 08:00 BP 141/89 10/24/21 06:28 Pulse Ox 94 L 10/24/21 06:28 Intake & Output 10/23/21 10/24/21 10/24/21 18:59 06:59 18:59 Intake Total 1040 Balance 1040 Weight 81.647 kg Intake: Intake, IV Titration 1040 Amount Sodium Chloride 0.9% 1, 1040 000 ml @ 130 mls/hr IV . Q7H42M [facility] Rx#:[id number] Other: # Voids 1 0 # Bowel Movements 0 - Exam GENERAL EXAM: Alert, very pleasant 61 old gentleman, up in a chair at the bedside, on 11 L high flow nasal cannula, fairly comfortable in no apparent distress. HEAD: Normocephalic. EYES: Normal reaction of pupils, equal size. NOSE: Clear with pink turbinates. THROAT: No erythema or exudates. NECK: No masses, no JVD. CHEST: No chest wall deformity. LUNGS: Equal air entry with coarse crackles in the posterior bases. CVS: S1 and S2 normal with no audible murmur, regular rhythm. ABDOMEN: No hepatosplenomegaly, normal bowel sounds, no guarding or rigidity. SPINE: No scoliosis or deformity SKIN: No rashes CENTRAL NERVOUS SYSTEM: No focal deficits, tone is normal in all 4 extremities. EXTREMITIES: There is no peripheral edema. No clubbing, no cyanosis. Peripheral pulses are intact. - Labs CBC & Chem 7: 10/24/21 08:19 10/24/21 08:19 Labs: Abnormal Lab Results - Last 24 Hours (Table) 10/23/21 10/24/21 10/24/21 Range/Units 20:32 07:09 08:19 Neutrophils # (Manual) (1.3-7.7) k/uL D-Dimer (<0.60) mg/L FEU Glucose 194 H (74-99) mg/dL POC Glucose (mg/dL) 270 H 180 H (75-99) mg/dL Lactate Dehydrogenase 1592 H (313-618) U/L C-Reactive Protein 5.5 H (<1.0) mg/dL 10/24/21 10/24/21 10/24/21 Range/Units 08:19 11:07 11:52 Neutrophils # (Manual) 7.95 H (1.3-7.7) k/uL D-Dimer 1.93 H (<0.60) mg/L FEU Glucose (74-99) mg/dL POC Glucose (mg/dL) 191 H (75-99) mg/dL Lactate Dehydrogenase (313-618) U/L C-Reactive Protein (<1.0) mg/dL Assessment and Plan Assessment: 1 Acute hypoxic respiratory failure related to acute COVID-19 related pneumonia, patient presented to the emergency department on 10/23/2021 with 2 week history of symptoms, patient is outside the window for Remdesivir, he is a non-vaccinated adult. Currently on 11 L of oxygen 2 Diabetes mellitus type 2 with diabetic neuropathy 3 Hypertension 4 Hyperlipidemia 5 BPH with previous history of TURP 6 Obstructive sleep apnea with previous history of UPPP 7 History of right eye melanoma with multiple surgeries 8 Previous history of CVA 9 Rheumatoid arthritis 10 History of gout 11 Previous history of MRSA infection in the wound on his back 12 Mild lactic acidosis, improved with IV hydration 13 Elevated inflammatory markers related to acute COVID-19 pneumonia Plan: The patient was seen and evaluated Chest x-ray and labs reviewed Currently on 11 L high flow nasal cannula Up in a chair at the bedside Continue Decadron, Lovenox, vitamin supplements Pro calcitonin within normal limits We'll continue to follow I, the cosigning physician, performed a history & physical examination of the patient. Lungs sounds are coarse crackles in the bilateral bases. Maintaining O2 saturations in the 90s on 11 L high flow nasal cannula. I discussed the assessment and plan of care with my nurse practitioner, Jenna Batres. I attest to the above note as dictated by her.
--- NOTE | 2021-10-24 15:47 | P.PN ---
Progress Note - Text Progress Note Date: 10/24/21 Chief Complaint: Short of breath This is a pleasant 61-year-old patient, chronic stable medical conditions include diabetes, hypertension, hyperlipidemia, osteoarthritis, peripheral neuropathy, chronic gout. Patient presents with increasing shortness of breath. Cough. Clear sputum. Fever and chills. Tired rundown decrease appetite and diarrhea about 2 times a day. Patient tested positive for COVID-19 on October 09. His initial rapid COVID-19 was negative. In the send out came back positive. Patient did not take the vaccine against COVID-19. He is on 8 L of oxygen this morning. He is outside the window for Remdesivir. Admitted with COVID 19 pneumonitis, acute hypoxic respiratory failure. Started on Decadron. IV fluids. October 24: Feeling a bit better. Short of breath. 92% on 11 L. Did eat some. Sitting at the edge of the bed. A bit tired Review of systems: Was done for constitutional, cardiovascular, GI, pulmonary. relevant finding as above Active Medications Acarbose (Acarbose 25 Mg Tab) 50 mg PO TID-W/MEALS [facility] Last Admin: 10/24/21 12:14 Dose: 50 mg Documented by: Acetaminophen (Acetaminophen Tab 325 Mg Tab) 650 mg PO Q6HR PRN PRN Reason: Mild Pain or Fever > 100.5 Last Admin: 10/23/21 21:22 Dose: 650 mg Documented by: Albuterol Sulfate (Albuterol Hfa Inhaler) 2 puff INHALATION RT-QID PRN PRN Reason: Shortness Of Breath Last Admin: 10/23/21 20:36 Dose: 2 puff Documented by: Alprazolam (Alprazolam 0.25 Mg Tab) 0.25 mg PO BID PRN PRN Reason: Anxiety Amitriptyline HCl (Amitriptyline Hcl 50 Mg Tab) 50 mg PO HS [facility] Last Admin: 10/23/21 21:22 Dose: 50 mg Documented by: Ascorbic Acid (Ascorbic Acid 500 Mg Tab) 1,000 mg PO DAILY [facility] Betamethasone/Clotrimazole (Clotrimazole/Betameth 1-0.05% Cream 45 Gm Tube) 1 applic TOPICAL BID [facility]; Protocol Last Admin: 10/24/21 08:10 Dose: 1 applic Documented by: Calcium Carbonate/Glycine (Calcium Carbonate 500 Mg Chewable) 1,000 mg PO Q4HR PRN PRN Reason: Dyspepsia Carbamazepine (Carbamazepine 200 Mg Tab) 400 mg PO BID [facility] Last Admin: 10/24/21 08:10 Dose: 400 mg Documented by: Cholecalciferol (Cholecalciferol 25 Mcg (1000 Iu) Tablet) 25 mcg PO DAILY [facility] Dexamethasone Sodium Phosphate (Dexamethasone Sod Phosphate 10 Mg/Ml 1 Ml Vial) 6 mg IVP DAILY [facility] Last Admin: 10/24/21 10:06 Dose: 6 mg Documented by: Enoxaparin Sodium (Enoxaparin 40 Mg/0.4 Ml Syringe) 40 mg SQ DAILY [facility] Last Admin: 10/24/21 08:07 Dose: 40 mg Documented by: Sodium Chloride (Saline 0.9%) 1,000 mls @ 130 mls/hr IV .Q7H42M [facility] Last Admin: 10/24/21 10:09 Dose: Not Given Documented by: Ibuprofen (Ibuprofen 400 Mg Tab) 400 mg PO Q6HR PRN PRN Reason: Mild Pain or Fever > 100.5 Insulin Aspart (Insulin Aspart (Novolog) 100 Unit/Ml Vial) 0 unit SQ [facility]; Protocol Last Admin: 10/24/21 12:14 Dose: 5 unit Documented by: Lactulose (Lactulose 20 Gm/30 Ml Cup) 20 gm PO DAILY PRN PRN Reason: Constipation Metoprolol Tartrate (Metoprolol Tartrate 50 Mg Tab) 50 mg PO BID [facility] Last Admin: 10/24/21 08:08 Dose: 50 mg Documented by: Naloxone HCl (Naloxone 0.4 Mg/Ml 1 Ml Vial) 0.2 mg IV Q2M PRN PRN Reason: Opioid Reversal Ondansetron HCl (Ondansetron 4 Mg/2 Ml Vial) 4 mg IVP Q8HR PRN PRN Reason: Nausea And Vomiting Pregabalin (Pregabalin 100 Mg Cap) 200 mg PO BID [facility] Last Admin: 10/24/21 08:08 Dose: 200 mg Documented by: Sertraline HCl (Sertraline 50 Mg Tab) 50 mg PO DAILY [facility] Last Admin: 10/24/21 08:08 Dose: 50 mg Documented by: Zinc Sulfate (Zinc Sulfate 220 Mg Cap) 220 mg PO DAILY [facility] Social history: Patient is on Social Security. Does not smoke or drink alcohol. Patient's daughters family lives with him. Family history: Father at the age of 40 with heart attack Physical examination: VITAL SIGNS: 98.5, 77, 18, 10 9 x 65, 92% 11 L GENERAL: Anxiety of the edge of the bed, short of breath LUNGS: Respiratory rate increased,. PSYCH: Alert and oriented x3; mood and affect normal. NEUROLOGICAL: Cranial nerves grossly intact; no facial asymmetry, moving all 4 limbs Rest of the exam per nursing and pulmonary INVESTIGATIONS, reviewed in the clinical context: October 24: White count 9.7 hemoglobin 15.3 platelets 221 d-dimer 1.93 progression 4.2 creatinine 0.71 CRP 5.5 pro-calcitonin 0.08 White count 9.9 hemoglobin 16 platelets 234 d-dimer 0.98 sodium 141 potassium 3.4 creatinine 0.81 Lactic acid 2.9 LDH 1422 CRP 7.5 EKG tracing personally reviewed by me-normal sinus rhythm. Nonspecific ST segment changes. Chest x-ray film personally reviewed by me-bilateral infiltrates Assessment and plan: -Acute severe COVID 19 pneumonitis in a patient who did not take the COVID-19 v accine: Not improving Dexamethasone, vitamin C, vitamin D, zinc. Patient's outside the window for Remdesivir. -Acute hypoxic respiratory failure from COVID-19: Worsening Currently on 11 L of nasal cannula -Essential hypertension Lopressor 50 mg twice a day, Cozaar 50 mg daily -Diabetes mellitus type 2, on oral hypoglycemic, uncontrolled with hyperglycemia Glucophage thousand milligrams twice a day. Follow Accu-Chek. Precose. Add Levemir -Chronic insomnia for medical conditions Elavil 50 mg daily at bedtime -Hyperlipidemia TriCor 48 mg daily -Obstructive sleep apnea Use CPAP -Diabetic peripheral neuropathy Lyrica 200 mg twice daily Dexamethasone. 11 L of oxygen discussed with the patient. Continue the medications. Add Levemir 8 units subcu at bedtime
[2021-10-24 16:25] LABS: Glucose,Whole Blood 354 mg/dL (75-99)
[2021-10-24] MEDS: ASCORBIC ACID 500 MG TAB PO SCH (17:15)
[2021-10-24] MEDS: ZINC SULFATE 220 MG CAP PO SCH (17:16)
[2021-10-24] MEDS: CHOLECALCIFEROL 25 MCG (1000 IU) TABLET PO SCH (17:16)
[2021-10-24] MEDS ORDERED: INSULIN ASPART (NovoLOG) 100 UNIT/ML VIAL SQ ONE (17:52)
[2021-10-24] MEDS: ACETAMINOPHEN TAB 325 MG TAB PO PRN (19:36)
[2021-10-24 19:57] LABS: Glucose,Whole Blood 241 mg/dL (75-99)
[2021-10-24] MEDS: INSULIN DETEMIR (LEVEMIR) 100 UNIT/ML SYR SQ SCH (21:34)
[2021-10-24] MEDS: AMITRIPTYLINE HCL 50 MG TAB PO SCH (21:36)
[2021-10-25] MEDS: ACETAMINOPHEN TAB 325 MG TAB PO PRN ×3 (03:32→20:43)
[2021-10-25] MEDS: SODIUM CHLORIDE 0.9% 1,000 ML IV SCH ×4 (03:33→23:55)
[2021-10-25 07:13] LABS: Glucose,Whole Blood 112 mg/dL (75-99)
[2021-10-25] MEDS: ALBUTEROL HFA INHALER INHALATION PRN ×3 (07:41→20:22)
[2021-10-25] MEDS: ENOXAPARIN 40 MG/0.4 ML SYRINGE SQ SCH (08:01)
[2021-10-25] MEDS: ASCORBIC ACID 500 MG TAB PO SCH (08:02)
[2021-10-25] MEDS: PREGABALIN 100 MG CAP PO SCH ×2 (08:02→20:44)
[2021-10-25] MEDS: CHOLECALCIFEROL 25 MCG (1000 IU) TABLET PO SCH (08:02)
[2021-10-25] MEDS: SERTRALINE 50 MG TAB PO SCH (08:02)
[2021-10-25] MEDS: METOPROLOL TARTRATE 50 MG TAB PO SCH ×2 (08:03→20:43)
[2021-10-25] MEDS: ZINC SULFATE 220 MG CAP PO SCH (08:03)
[2021-10-25] MEDS: carBAMazepine 200 MG TAB PO SCH ×2 (08:04→20:43)
[2021-10-25] MEDS: DEXAMETHASONE SOD PHOSPHATE 10 MG/ML 1 ML VIAL IVP SCH ×2 (08:04→20:42)
[2021-10-25] MEDS: ACARBOSE 25 MG TAB PO SCH ×3 (08:05→17:16)
[2021-10-25] MEDS: INSULIN ASPART (NovoLOG) 100 UNIT/ML VIAL SQ SCH ×4 (08:05→20:58)
[2021-10-25] MEDS: CLOTRIMAZOLE/BETAMETH 1-0.05% CREAM 45 GM TUBE TOPICAL SCH ×2 (08:06→20:44)
[2021-10-25 11:25] LABS: Glucose,Whole Blood 197 mg/dL (75-99)
[2021-10-25] MEDS: guaiFENesin-Coden 100-10MG/5ML 10 ML CUP PO SCH ×3 (12:09→23:55)
--- NOTE | 2021-10-25 12:17 | P.PN ---
Subjective Progress Note Date: 10/25/21 Principal diagnosis: Acute COVID-19 pneumonia 61-year-old male patient with past medical history of diabetes mellitus type 2 with diabetic neuropathy, hypertension, hyperlipidemia, previous history of CVA, rheumatoid arthritis, obstructive sleep apnea S/P UPPP, history of right eye melanoma with previous surgeries, BPH with previous TURP, chronic lower extremity edema, cellulitis, gout, presented to the emergency department on 10/23/2021 at 240 3 in the morning with complaints of severe shortness of breath, cough, congestion. Patient states he has had symptoms since October 09, initially was tested via rapid COVID-19 PCR test which was negative however the send out PCR test came back positive. He states over the last 2 weeks his symptoms continue to worsen, he feels weak, short of breath, complains of cough and chest congestion. No chest pain. He has not been vaccinated against COVID- 19. He does endorse fever, malaise, nausea, abdominal pain. His chest x-ray showed moderate pulmonary testicular edema. His lab work has been reviewed showing white blood cell count of 9.9, hemoglobin 16, platelet count is 234, neutrophils 8.1, lymphocyte count is 1.49, INR is 1.1, sodium is 141, potassium is 3.4, chloride is 101, CO2 is 23, BUN is 23 creatinine 0.81, plasma lactic acid was 2.9 and is currently down to 1.7, LDH was 1422, proBNP was 185, LFTs were within normal limits. Patient is currently requiring 8 L of oxygen his pulse ox is 96%, he still has a congested cough, he has been afebrile, he is short of breath with any exertion. Denies any hemoptysis or chest discomfort. Has been started on Decadron 6 mg daily, he was given IV hydration with 1 L b olus, and currently receiving 0.9 normal saline at a rate of 1:30 ML per hour, his lactic acid has improved. Patient is outside the window for Remdesivir. The patient is seen today 10/24/2021 in follow-up on the regular medical floor. He is currently sitting up in a chair at the bedside. Awake alert in no acute distress. Doing about the same today as compared to yesterday. He is on 11 L high flow nasal cannula to maintain O2 saturations in the 90s. He is dyspneic with conversation. Dyspneic with minimal exertion. Follow-up chest x-ray is unchanged. Still with bilateral interstitial and airspace opacities. No pneumothorax or large effusions. White count 9.7. Hemoglobin 15.3. D-dimer 1.93 sodium 141 potassium 4.2. Creatinine 0.71. LDH 1592. C-reactive protein 5.5. Pro-calcitonin 0.08. He is continued on Decadron, Lovenox, vitamin supplements. On 10/25/2021 she is seen in follow-up on regular medical surgical floor. Currently on 11 L of oxygen pulse ox is 92%. He states he gets severe coughing spells, and that's when he desaturates and gets short of breath. He takes shallow breaths, lung sounds are diminished, no wheezing or crackles appreciated on today's exam, he gets up to the bathroom, tolerates activity fairly well. His cough is dry, nonproductive. No complaints of chest discomfort. His last chest x-ray from yesterday showed no pneumothorax or large effusion, mild prominence of the heart accentuated by low lung volumes. Relatively stable or perhaps slightly improved bilateral interstitial and airspace opacities. Patient remains on a combination of Decadron 6 mg daily, Lovenox 40 mg daily, he is on COVID-19 multivitamins. His d-dimer from yesterday was 1.93, electrolytes were within normal limits, renal profile was normal, his inflammatory markers were relatively stable with LDH slightly increased compared admission level and yesterday was 1592, and CRP was 5.5, pro-calcitonin level was negative, proBNP was within normal limits. Objective - Vital Signs Vital signs: Vital Signs Temp 99.8 F H 10/25/21 10:00 Pulse 86 10/25/21 10:00 Resp 20 10/25/21 10:00 BP 124/72 10/25/21 10:00 Pulse Ox 92 L 10/25/21 10:00 Intake & Output 10/24/21 10/25/21 10/25/21 18:59 06:59 18:59 Intake Total 0 Balance 0 Intake: Intake, IV Titration 0 Amount Sodium Chloride 0.9% 1, 0 000 ml @ 130 mls/hr IV . Q7H42M [facility] Rx#:[id number] Other: # Voids 1 - Exam GENERAL EXAM: Alert, very pleasant, 61-year-old white male, currently on 11 L of oxygen and the pulse ox of 92%, has a congested cough, but appears to be in no acute distress comfortable in no apparent distress. HEAD: Normocephalic/atraumatic. EYES: Normal reaction of pupils, equal size. Conjunctiva pink, sclera white. NOSE: Clear with pink turbinates. THROAT: No erythema or exudates. NECK: No masses, no JVD, no thyroid enlargement, no adenopathy. CHEST: No chest wall deformity. Symmetrical expansion. LUNGS: Equal air entry with diffuse crackles CVS: Regular rate and rhythm, normal S1 and S2, no gallops, no murmurs, no rubs ABDOMEN: Soft, nontender. No hepatosplenomegaly, normal bowel sounds, no guarding or rigidity. EXTREMITIES: No clubbing, no edema, no cyanosis, 2+ pulses and upper and lower extremities. MUSCULOSKELETAL: Muscle strength and tone normal. SPINE: No scoliosis or deformity SKIN: No rashes CENTRAL NERVOUS SYSTEM: Alert and oriented -3. No focal deficits, tone is normal in all 4 extremities. PSYCHIATRIC: Alert and oriented -3. Appropriate affect. Intact judgment and insight. - Labs CBC & Chem 7: 10/24/21 08:19 10/24/21 08:19 Labs: Abnormal Lab Results - Last 24 Hours (Table) 10/24/21 10/24/21 10/25/21 Range/Units 16:22 19:53 07:12 POC Glucose (mg/dL) 354 H 241 H 112 H (75-99) mg/dL 10/25/21 Range/Units 11:23 POC Glucose (mg/dL) 197 H (75-99) mg/dL Assessment and Plan Plan: Assessment: #1. Acute hypoxic respiratory failure related to acute COVID-19 related pneumonia, patient presented to the emergency department on 10/23/2021 with 2 week history of symptoms, patient is outside the window for Remdesivir, he is a non-vaccinated adult. Currently on 11 L of oxygen #2. Diabetes mellitus type 2 with diabetic neuropathy #3. Hypertension #4. Hyperlipidemia #5. BPH with previous history of TURP #6. Obstructive sleep apnea with previous history of UPPP #7. History of right eye melanoma with multiple surgeries #8. Previous history of CVA #9. Rheumatoid arthritis #10. History of gout #11. Previous history of MRSA infection in the wound on his back #12. Mild lactic acidosis, improved with IV hydration #13. Elevated inflammatory markers related to acute COVID-19 pneumonia Plan: Patient has severe coughing spells We will increase the Decadron to twice daily dosing 6 mg Continue current dose Lovenox 40 mg We will add Robitussin-AC every 6 hours [id number] Follow-up d-dimer, pro-calcitonin level, inflammatory markers for tomorrow We'll continue to follow I performed a history & physical examination of the patient and discussed their management with my nurse practitioner, Linda Giordano. I reviewed the nurse practitioner's note and agree with the documented findings and plan of care. Lung sounds are positive for dim with diffuse wheezes throughout the lung malone. The findings and the impression was discussed with the patient. I attest to the documentation by the nurse practitioner. Time with Patient: Less than 30
[2021-10-25 16:40] LABS: Glucose,Whole Blood 241 mg/dL (75-99)
--- NOTE | 2021-10-25 20:35 | P.PN ---
Progress Note - Text Progress Note Date: 10/25/21 Chief Complaint: Short of breath This is a pleasant 61-year-old patient, chronic stable medical conditions include diabetes, hypertension, hyperlipidemia, osteoarthritis, peripheral neuropathy, chronic gout. Patient presents with increasing shortness of breath. Cough. Clear sputum. Fever and chills. Tired rundown decrease appetite and diarrhea about 2 times a day. Patient tested positive for COVID-19 on October 09. His initial rapid COVID-19 was negative. In the send out came back positive. Patient did not take the vaccine against COVID-19. He is on 8 L of oxygen this morning. He is outside the window for Remdesivir. Admitted with COVID 19 pneumonitis, acute hypoxic respiratory failure. Started on Decadron. IV fluids. October 24: Feeling a bit better. Short of breath. 92% on 11 L. Did eat some. Sitting at the edge of the bed. A bit tired October 25: Short of breath. Cough. Oral intake fair. On 11 L of nasal cannula. Did sit up in a chair. Review of systems: Was done for constitutional, cardiovascular, GI, pulmonary. relevant finding as above Active Medications Acarbose (Acarbose 25 Mg Tab) 50 mg PO TID-W/MEALS [facility] Last Admin: 10/25/21 17:16 Dose: 50 mg Documented by: Acetaminophen (Acetaminophen Tab 325 Mg Tab) 650 mg PO Q6HR PRN PRN Reason: Mild Pain or Fever > 100.5 Last Admin: 10/25/21 14:35 Dose: 650 mg Documented by: Albuterol Sulfate (Albuterol Hfa Inhaler) 2 puff INHALATION RT-QID PRN PRN Reason: Shortness Of Breath Last Admin: 10/25/21 20:22 Dose: 2 puff Documented by: Alprazolam (Alprazolam 0.25 Mg Tab) 0.25 mg PO BID PRN PRN Reason: Anxiety Amitriptyline HCl (Amitriptyline Hcl 50 Mg Tab) 50 mg PO HS [facility] Last Admin: 10/24/21 21:36 Dose: 50 mg Documented by: Ascorbic Acid (Ascorbic Acid 500 Mg Tab) 1,000 mg PO DAILY [facility] Last Admin: 10/25/21 08:02 Dose: 1,000 mg Documented by: Betamethasone/Clotrimazole (Clotrimazole/Betameth 1-0.05% Cream 45 Gm Tube) 1 applic TOPICAL BID [facility]; Protocol Last Admin: 10/25/21 08:06 Dose: 1 applic Documented by: Calcium Carbonate/Glycine (Calcium Carbonate 500 Mg Chewable) 1,000 mg PO Q4HR PRN PRN Reason: Dyspepsia Carbamazepine (Carbamazepine 200 Mg Tab) 400 mg PO BID [facility] Last Admin: 10/25/21 08:04 Dose: 400 mg Documented by: Cholecalciferol (Cholecalciferol 25 Mcg (1000 Iu) Tablet) 25 mcg PO DAILY [facility] Last Admin: 10/25/21 08:02 Dose: 25 mcg Documented by: Dexamethasone Sodium Phosphate (Dexamethasone Sod Phosphate 10 Mg/Ml 1 Ml Vial) 6 mg IVP BID [facility] Enoxaparin Sodium (Enoxaparin 40 Mg/0.4 Ml Syringe) 40 mg SQ DAILY [facility] Last Admin: 10/25/21 08:01 Dose: 40 mg Documented by: Guaifenesin/Codeine Phosphate (Guaifenesin-Coden 100-10mg/5ml 10 Ml Cup) 10 ml PO Q6HR [facility] Last Admin: 10/25/21 17:16 Dose: 10 ml Documented by: Sodium Chloride (Saline 0.9%) 1,000 mls @ 130 mls/hr IV .Q7H42M [facility] Last Admin: 10/25/21 17:16 Dose: Not Given Documented by: Ibuprofen (Ibuprofen 400 Mg Tab) 400 mg PO Q6HR PRN PRN Reason: Mild Pain or Fever > 100.5 Insulin Aspart (Insulin Aspart (Novolog) 100 Unit/Ml Vial) 0 unit SQ ACHS [facility]; Protocol Last Admin: 10/25/21 17:16 Dose: 8 unit Documented by: Insulin Detemir (Insulin Detemir (Levemir) 100 Unit/Ml Syr) 8 unit SQ HS [facility] Last Admin: 10/24/21 21:34 Dose: 8 unit Documented by: Lactulose (Lactulose 20 Gm/30 Ml Cup) 20 gm PO DAILY PRN PRN Reason: Constipation Metoprolol Tartrate (Metoprolol Tartrate 50 Mg Tab) 50 mg PO BID [facility] Last Admin: 10/25/21 08:03 Dose: 50 mg Documented by: Naloxone HCl (Naloxone 0.4 Mg/Ml 1 Ml Vial) 0.2 mg IV Q2M PRN PRN Reason: Opioid Reversal Ondansetron HCl (Ondansetron 4 Mg/2 Ml Vial) 4 mg IVP Q8HR PRN PRN Reason: Nausea And Vomiting Pregabalin (Pregabalin 100 Mg Cap) 200 mg PO BID [facility] Last Admin: 10/25/21 08:02 Dose: 200 mg Documented by: Sertraline HCl (Sertraline 50 Mg Tab) 50 mg PO DAILY [facility] Last Admin: 10/25/21 08:02 Dose: 50 mg Documented by: Zinc Sulfate (Zinc Sulfate 220 Mg Cap) 220 mg PO DAILY [facility] Last Admin: 10/25/21 08:03 Dose: 220 mg Documented by: Social history: Patient is on Social Security. Does not smoke or drink alcohol. Patient's daughters family lives with him. Family history: Father at the age of 40 with heart attack Physical examination: VITAL SIGNS: 99.8, 80, 20, 120/70, 92% on 11 L GENERAL: Awake short of breath LUNGS: Respiratory rate increased,. PSYCH: Alert and oriented x3; mood and affect normal. NEUROLOGICAL: Cranial nerves grossly intact; no facial asymmetry, moving all 4 limbs Rest of the exam per nursing and pulmonary INVESTIGATIONS, reviewed in the clinical context: October 24: White count 9.7 hemoglobin 15.3 platelets 221 d-dimer 1.93 progression 4.2 creatinine 0.71 CRP 5.5 pro-calcitonin 0.08 White count 9.9 hemoglobin 16 platelets 234 d-dimer 0.98 sodium 141 potassium 3.4 creatinine 0.81 Lactic acid 2.9 LDH 1422 CRP 7.5 EKG tracing personally reviewed by me-normal sinus rhythm. Nonspecific ST segment changes. Chest x-ray film personally reviewed by me-bilateral infiltrates Assessment and plan: -Acute severe COVID 19 pneumonitis in a patient who did not take the COVID-19 vaccine: Not improving Dexamethasone, vitamin C, vitamin D, zinc. Patient's outside the window for Remdesivir. -Acute hypoxic respiratory failure from COVID-19: Slow to respond Currently on 11 L of nasal cannula -Essential hypertension Lopressor 50 mg twice a day, Cozaar 50 mg daily -Diabetes mellitus type 2, on oral hypoglycemic, uncontrolled with hyperglycemia Glucophage thousand milligrams twice a day. Follow Accu-Chek. Precose. Add Levemir -Chronic insomnia for medical conditions Elavil 50 mg daily at bedtime -Hyperlipidemia TriCor 48 mg daily -Obstructive sleep apnea Use CPAP -Diabetic peripheral neuropathy Lyrica 200 mg twice daily -Full code Dexamethasone. 11 L of oxygen Continue the medications. Incentive spirometry. Out of bed as tolerated.
[2021-10-25] MEDS: AMITRIPTYLINE HCL 50 MG TAB PO SCH (20:43)
[2021-10-25 20:57] LABS: Glucose,Whole Blood 215 mg/dL (75-99)
[2021-10-25] MEDS: INSULIN DETEMIR (LEVEMIR) 100 UNIT/ML SYR SQ SCH (20:59)
[2021-10-26] MEDS: guaiFENesin-Coden 100-10MG/5ML 10 ML CUP PO SCH ×3 (06:04→17:20)
[2021-10-26 07:18] LABS: Glucose,Whole Blood 228 mg/dL (75-99)
--- NOTE | 2021-10-26 07:31 | XR ---
EXAMINATION TYPE: XR chest 1V portable DATE OF EXAM: 10/26/2021 HISTORY: Shortness of breath. COMPARISON: 10/24/2021 TECHNIQUE: Single view of the chest is submitted. FINDINGS: Demonstrated are scattered senescent parenchymal change. Diffuse bilateral reticulonodular infiltrates persist unchanged. The heart is stable. Hilar and mediastinal structures are within normal limits. Degenerative changes are seen of the dorsal spine. IMPRESSION: 1. Diffuse bilateral reticulonodular infiltrates persist unchanged.
[2021-10-26] MEDS: DEXAMETHASONE SOD PHOSPHATE 10 MG/ML 1 ML VIAL IVP SCH ×2 (08:15→20:22)
[2021-10-26] MEDS: CHOLECALCIFEROL 25 MCG (1000 IU) TABLET PO SCH (08:16)
[2021-10-26] MEDS: ENOXAPARIN 40 MG/0.4 ML SYRINGE SQ SCH (08:16)
[2021-10-26] MEDS: ZINC SULFATE 220 MG CAP PO SCH (08:16)
[2021-10-26] MEDS: ACARBOSE 25 MG TAB PO SCH ×3 (08:16→17:20)
[2021-10-26] MEDS: ASCORBIC ACID 500 MG TAB PO SCH (08:16)
[2021-10-26] MEDS: INSULIN ASPART (NovoLOG) 100 UNIT/ML VIAL SQ SCH ×4 (08:16→20:22)
[2021-10-26] MEDS: SERTRALINE 50 MG TAB PO SCH (08:16)
[2021-10-26] MEDS: carBAMazepine 200 MG TAB PO SCH ×2 (08:16→20:24)
[2021-10-26] MEDS: PREGABALIN 100 MG CAP PO SCH ×2 (08:16→20:23)
[2021-10-26] MEDS: METOPROLOL TARTRATE 50 MG TAB PO SCH ×2 (08:16→20:23)
[2021-10-26] MEDS: SODIUM CHLORIDE 0.9% 1,000 ML IV SCH (08:17)
[2021-10-26] MEDS: CLOTRIMAZOLE/BETAMETH 1-0.05% CREAM 45 GM TUBE TOPICAL SCH ×2 (08:24→20:32)
[2021-10-26] MEDS: ALBUTEROL HFA INHALER INHALATION PRN (09:50)
--- NOTE | 2021-10-26 11:32 | US ---
EXAMINATION TYPE: US venous doppler duplex LE DATE OF EXAM: 10/26/2021 11:19 AM COMPARISON: Left 2017 CLINICAL HISTORY: elevated d-dimer. COVID SIDE PERFORMED: Bilateral TECHNIQUE: The lower extremity deep venous system is examined utilizing real time linear array sonog dary with graded compression, doppler sonography and color-flow sonography. VESSELS IMAGED: Common Femoral Vein Deep Femoral Vein Greater Saphenous Vein * Femoral Vein Popliteal Vein Small Saphenous Vein * Proximal Calf Veins (* superficial vessels) Right Leg: Negative for DVT Left Leg: Negative for DVT IMPRESSION: 1. Bilateral lower extremity ultrasound negative for deep venous thrombosis.
[2021-10-26 11:39] LABS: Glucose,Whole Blood 340 mg/dL (75-99)
--- NOTE | 2021-10-26 12:29 | CT ---
EXAMINATION TYPE: CT chest angio for PE DATE OF EXAM: 10/26/2021 COMPARISON: None HISTORY: Elevated d-dimer, covid. CT DLP: 639.2 mGycm CONTRAST: CT chest with contrast and 3D reconstruction with MIP imaging is performed with IV Contrast, patient injected with 100 mL of Isovue 370. Contrast-enhanced CT of the chest was performed through the course of the pulmonary arteries with harjeet g and mediastinal window settings submitted. 3D reconstruction with MIP imaging was also performed. PULMONARY ARTERIES: Scattered filling defects within the lower lobe pulmonary arterial branches bilat erally right greater than left compatible with pulmonary embolism. No evidence for central component saddle component. LUNGS: Diffuse airspace infiltrates are seen bilaterally. No evidence for atelectasis. No pulmonary nodule or mass is detected. No pleural effusion. MEDIASTINUM: Thoracic aorta is of normal caliber,however, evaluation is limited given timing of the contrast bolus. If there is concern for thoracic aortic pathology consider FRANCESCA. Correlate clinicall y . The heart is not enlarged. No evidence for mediastinal mass. No mediastinal lymph nodes greater than 1cm. HILAR STRUCTURES: No evidence for mass. No hilar lymph nodes greater than 1 cm. UPPER ABDOMEN: No significant abnormality is seen. IMPRESSION: 1. Scattered filling defects within the lower lobe pulmonary arterial branches bilaterally right gre ater than left compatible with pulmonary embolism.
[2021-10-26] MEDS: APIXABAN 5 MG TAB PO SCH ×2 (14:01→20:32)
--- NOTE | 2021-10-26 15:02 | P.PN ---
Subjective Progress Note Date: 10/26/21 Principal diagnosis: Acute COVID-19 pneumonia 61-year-old male patient with past medical history of diabetes mellitus type 2 with diabetic neuropathy, hypertension, hyperlipidemia, previous history of CVA, rheumatoid arthritis, obstructive sleep apnea S/P UPPP, history of right eye melanoma with previous surgeries, BPH with previous TURP, chronic lower extremity edema, cellulitis, gout, presented to the emergency department on 10/23/2021 at 240 3 in the morning with complaints of severe shortness of breath, cough, congestion. Patient states he has had symptoms since October 09, initially was tested via rapid COVID-19 PCR test which was negative however the send out PCR test came back positive. He states over the last 2 weeks his symptoms continue to worsen, he feels weak, short of breath, complains of cough and chest congestion. No chest pain. He has not been vaccinated against COVID- 19. He does endorse fever, malaise, nausea, abdominal pain. His chest x-ray showed moderate pulmonary testicular edema. His lab work has been reviewed showing white blood cell count of 9.9, hemoglobin 16, platelet count is 234, neutrophils 8.1, lymphocyte count is 1.49, INR is 1.1, sodium is 141, potassium is 3.4, chloride is 101, CO2 is 23, BUN is 23 creatinine 0.81, plasma lactic acid was 2.9 and is currently down to 1.7, LDH was 1422, proBNP was 185, LFTs were within normal limits. Patient is currently requiring 8 L of oxygen his pulse ox is 96%, he still has a congested cough, he has been afebrile, he is short of breath with any exertion. Denies any hemoptysis or chest discomfort. Has been started on Decadron 6 mg daily, he was given IV hydration with 1 L b olus, and currently receiving 0.9 normal saline at a rate of 1:30 ML per hour, his lactic acid has improved. Patient is outside the window for Remdesivir. The patient is seen today 10/24/2021 in follow-up on the regular medical floor. He is currently sitting up in a chair at the bedside. Awake alert in no acute distress. Doing about the same today as compared to yesterday. He is on 11 L high flow nasal cannula to maintain O2 saturations in the 90s. He is dyspneic with conversation. Dyspneic with minimal exertion. Follow-up chest x-ray is unchanged. Still with bilateral interstitial and airspace opacities. No pneumothorax or large effusions. White count 9.7. Hemoglobin 15.3. D-dimer 1.93 sodium 141 potassium 4.2. Creatinine 0.71. LDH 1592. C-reactive protein 5.5. Pro-calcitonin 0.08. He is continued on Decadron, Lovenox, vitamin supplements. On 10/25/2021 she is seen in follow-up on regular medical surgical floor. Currently on 11 L of oxygen pulse ox is 92%. He states he gets severe coughing spells, and that's when he desaturates and gets short of breath. He takes shallow breaths, lung sounds are diminished, no wheezing or crackles appreciated on today's exam, he gets up to the bathroom, tolerates activity fairly well. His cough is dry, nonproductive. No complaints of chest discomfort. His last chest x-ray from yesterday showed no pneumothorax or large effusion, mild prominence of the heart accentuated by low lung volumes. Relatively stable or perhaps slightly improved bilateral interstitial and airspace opacities. Patient remains on a combination of Decadron 6 mg daily, Lovenox 40 mg daily, he is on COVID-19 multivitamins. His d-dimer from yesterday was 1.93, electrolytes were within normal limits, renal profile was normal, his inflammatory markers were relatively stable with LDH slightly increased compared admission level and yesterday was 1592, and CRP was 5.5, pro-calcitonin level was negative, proBNP was within normal limits. On 10/26/2021 patient seen in follow-up on medical surgical floor. He is on 11 L of oxygen his pulse ox is 90-94%, chest x-ray shows diffuse bilateral infiltrates. He remains on Decadron 6 mg twice daily, blood pressure is stable, afebrile, he is awake and alert, oriented 3, breathing fairly comfortably, the coughing has subsided, significantly improved. However on today's labs d-dimer was significantly elevated at 8.48, and CTA chest was obtained showing scattered filling defects within the lower lobe pulmonary arterial branches bilaterally right greater than left compatible with pulmonary embolism. Lower extremity Dopplers showing no evidence of DVT. Patient has been transitioned to oral Eliquis milligrams twice daily. Hemodynamically she is stable. His LDH is improving and is down to 1382, by CRP has increased and is currently at 24, pro- calcitonin level was negative at 0.08. Currently continues on Decadron 6.5 twice daily, he is on Eliquis now, he is on COVID-19 multivitamins and on cough syrup [id number]. Objective - Vital Signs Vital signs: Vital Signs Temp 99.1 F 10/26/21 14:49 Pulse 60 10/26/21 14:49 Resp 18 10/26/21 14:49 BP 149/72 10/26/21 14:49 Pulse Ox 92 L 10/26/21 14:49 Intake & Output 10/25/21 10/26/21 10/26/21 18:59 06:59 18:59 Intake Total 450 1040 Balance 450 1040 Intake: Intake, IV Titration 130 1040 Amount Sodium Chloride 0.9% 1, 130 1040 000 ml @ 130 mls/hr IV . Q7H42M [facility] Rx#:[id number] Oral 320 Other: Voiding Method Urinal # Voids 2 2 # Bowel Movements 1 - Exam GENERAL EXAM: Alert, very pleasant, 61-year-old white male, currently on 11 L of oxygen and the pulse ox of 90-92%, has a congested cough, but appears to be in no acute distress comfortable in no apparent distress. HEAD: Normocephalic/atraumatic. EYES: Normal reaction of pupils, equal size. Conjunctiva pink, sclera white. NOSE: Clear with pink turbinates. THROAT: No erythema or exudates. NECK: No masses, no JVD, no thyroid enlargement, no adenopathy. CHEST: No chest wall deformity. Symmetrical expansion. LUNGS: Equal air entry with diffuse crackles CVS: Regular rate and rhythm, normal S1 and S2, no gallops, no murmurs, no rubs ABDOMEN: Soft, nontender. No hepatosplenomegaly, normal bowel sounds, no guarding or rigidity. EXTREMITIES: No clubbing, no edema, no cyanosis, 2+ pulses and upper and lower extremities. MUSCULOSKELETAL: Muscle strength and tone normal. SPINE: No scoliosis or deformity SKIN: No rashes CENTRAL NERVOUS SYSTEM: Alert and oriented -3. No focal deficits, tone is normal in all 4 extremities. PSYCHIATRIC: Alert and oriented -3. Appropriate affect. Intact judgment and insight. - Labs CBC & Chem 7: 10/24/21 08:19 10/24/21 08:19 Labs: Abnormal Lab Results - Last 24 Hours (Table) 10/25/21 10/25/21 10/26/21 Range/Units 16:39 20:55 07:16 D-Dimer 8.48 H (<0.60) mg/L FEU POC Glucose (mg/dL) 241 H 215 H (75-99) mg/dL Lactate Dehydrogenase (313-618) U/L C-Reactive Protein (<1.0) mg/dL 10/26/21 10/26/21 10/26/21 Range/Units 07:16 07:17 11:38 D-Dimer (<0.60) mg/L FEU POC Glucose (mg/dL) 228 H 340 H (75-99) mg/dL Lactate Dehydrogenase 1382 H (313-618) U/L C-Reactive Protein 24.0 H (<1.0) mg/dL Assessment and Plan Plan: Assessment: #1. Acute hypoxic respiratory failure related to acute COVID-19 related pneumonia, patient presented to the emergency department on 10/23/2021 with 2 week history of symptoms, patient is outside the window for Remdesivir, he is a non-vaccinated adult. Currently on 11 L of oxygen #2. Acute pulmonary embolism within the lower lobe, right artery right greater than left, tarted on [place] on 10/26/2021 #3. Diabetes mellitus type 2 with diabetic neuropathy #4. Hypertension #5. Hyperlipidemia #6. BPH with previous history of TURP #7. Obstructive sleep apnea with previous history of UPPP #8. History of right eye melanoma with multiple surgeries #9. Previous history of CVA #10. Rheumatoid arthritis #11. History of gout #12. Previous history of MRSA infection in the wound on his back #13. Mild lactic acidosis, improved with IV hydration #14. Elevated inflammatory markers related to acute COVID-19 pneumonia Plan: The cough has improved D-dimer was noted Lower extremity Dopplers and CT chest were ordered Patient has acute pulmonary embolism within the bilateral lower lobes We'll start the patient on Eliquis stop the Lovenox Continue current Decadron We'll continue to follow his clinical course I performed a history & physical examination of the patient and discussed their management with my nurse practitioner, Linda Giordano. I reviewed the nurse practitioner's note and agree with the documented findings and plan of care. Lung sounds are positive for dim with diffuse wheezes throughout the lung malone. The findings and the impression was discussed with the patient. I attest to the documentation by the nurse practitioner. Time with Patient: Less than 30
[2021-10-26 16:51] LABS: Glucose,Whole Blood 267 mg/dL (75-99)
[2021-10-26 20:18] LABS: Glucose,Whole Blood 366 mg/dL (75-99)
[2021-10-26] MEDS: INSULIN DETEMIR (LEVEMIR) 100 UNIT/ML SYR SQ SCH (20:22)
[2021-10-26] MEDS: AMITRIPTYLINE HCL 50 MG TAB PO SCH (20:23)
--- NOTE | 2021-10-26 22:13 | P.PN ---
Progress Note - Text Progress Note Date: 10/26/21 Chief Complaint: Short of breath This is a pleasant 61-year-old patient, chronic stable medical conditions include diabetes, hypertension, hyperlipidemia, osteoarthritis, peripheral neuropathy, chronic gout. Patient presents with increasing shortness of breath. Cough. Clear sputum. Fever and chills. Tired rundown decrease appetite and diarrhea about 2 times a day. Patient tested positive for COVID-19 on October 09. His initial rapid COVID-19 was negative. In the send out came back positive. Patient did not take the vaccine against COVID-19. He is on 8 L of oxygen this morning. He is outside the window for Remdesivir. Admitted with COVID 19 pneumonitis, acute hypoxic respiratory failure. Started on Decadron. IV fluids. October 24: Feeling a bit better. Short of breath. 92% on 11 L. Did eat some. Sitting at the edge of the bed. A bit tired October 25: Short of breath. Cough. Oral intake fair. On 11 L of nasal cannula. Did sit up in a chair. October 26: Short of breath. Oral intake fair. Cough. 11 L nasal cannula. Dexamethasone. Chest CTA showing bilateral pulmonary embolism. Review of systems: Was done for constitutional, cardiovascular, GI, pulmonary. relevant finding as above Active Medications Acarbose (Acarbose 25 Mg Tab) 50 mg PO TID-W/MEALS [facility] Last Admin: 10/26/21 17:20 Dose: 50 mg Documented by: Acetaminophen (Acetaminophen Tab 325 Mg Tab) 650 mg PO Q6HR PRN PRN Reason: Mild Pain or Fever > 100.5 Last Admin: 10/25/21 20:43 Dose: 650 mg Documented by: Albuterol Sulfate (Albuterol Hfa Inhaler) 2 puff INHALATION RT-QID PRN PRN Reason: Shortness Of Breath Last Admin: 10/26/21 09:50 Dose: 2 puff Documented by: Alprazolam (Alprazolam 0.25 Mg Tab) 0.25 mg PO BID PRN PRN Reason: Anxiety Amitriptyline HCl (Amitriptyline Hcl 50 Mg Tab) 50 mg PO [facility] Last Admin: 10/26/21 20:23 Dose: 50 mg Documented by: Apixaban (Apixaban 5 Mg Tab) 10 mg PO BID [facility]; Protocol Stop: 11/01/21 21:01 Last Admin: 10/26/21 20:32 Dose: 10 mg Documented by: Apixaban (Apixaban 5 Mg Tab) 5 mg PO BID [facility]; Protocol Ascorbic Acid (Ascorbic Acid 500 Mg Tab) 1,000 mg PO DAILY [facility] Last Admin: 10/26/21 08:16 Dose: 1,000 mg Documented by: Betamethasone/Clotrimazole (Clotrimazole/Betameth 1-0.05% Cream 45 Gm Tube) 1 applic TOPICAL BID [facility]; Protocol Last Admin: 10/26/21 20:32 Dose: 1 applic Documented by: Calcium Carbonate/Glycine (Calcium Carbonate 500 Mg Chewable) 1,000 mg PO Q4HR PRN PRN Reason: Dyspepsia Carbamazepine (Carbamazepine 200 Mg Tab) 400 mg PO BID [facility] Last Admin: 10/26/21 20:24 Dose: 400 mg Documented by: Cholecalciferol (Cholecalciferol 25 Mcg (1000 Iu) Tablet) 25 mcg PO DAILY [facility] Last Admin: 10/26/21 08:16 Dose: 25 mcg Documented by: Dexamethasone Sodium Phosphate (Dexamethasone Sod Phosphate 10 Mg/Ml 1 Ml Vial) 6 mg IVP BID [facility] Last Admin: 10/26/21 20:22 Dose: 6 mg Documented by: Guaifenesin/Codeine Phosphate (Guaifenesin-Coden 100-10mg/5ml 10 Ml Cup) 10 ml PO Q6HR [facility] Last Admin: 10/26/21 17:20 Dose: 10 ml Documented by: Insulin Aspart (Insulin Aspart (Novolog) 100 Unit/Ml Vial) 0 unit SQ ACHS [facility]; Protocol Last Admin: 10/26/21 20:22 Dose: 7 unit Documented by: Insulin Detemir (Insulin Detemir (Levemir) 100 Unit/Ml Syr) 8 unit SQ HS [facility] Last Admin: 10/26/21 20:22 Dose: 8 unit Documented by: Lactulose (Lactulose 20 Gm/30 Ml Cup) 20 gm PO DAILY PRN PRN Reason: Constipation Metoprolol Tartrate (Metoprolol Tartrate 50 Mg Tab) 50 mg PO BID [facility] Last Admin: 10/26/21 20:23 Dose: 50 mg Documented by: Naloxone HCl (Naloxone 0.4 Mg/Ml 1 Ml Vial) 0.2 mg IV Q2M PRN PRN Reason: Opioid Reversal Ondansetron HCl (Ondansetron 4 Mg/2 Ml Vial) 4 mg IVP Q8HR PRN PRN Reason: Nausea And Vomiting Pregabalin (Pregabalin 100 Mg Cap) 200 mg PO BID [facility] Last Admin: 10/26/21 20:23 Dose: 200 mg Documented by: Sertraline HCl (Sertraline 50 Mg Tab) 50 mg PO DAILY [facility] Last Admin: 10/26/21 08:16 Dose: 50 mg Documented by: Zinc Sulfate (Zinc Sulfate 220 Mg Cap) 220 mg PO DAILY [facility] Last Admin: 10/26/21 08:16 Dose: 220 mg Documented by: Social history: Patient is on Social Security. Does not smoke or drink alcohol. Patient's daughters family lives with him. Family history: Father at the age of 40 with heart attack Physical examination: VITAL SIGNS: 98.6, 79, 18, 1 47 x 76, 90% on 11 L GENERAL: Up in a chair, Awake short of breath LUNGS: Respiratory rate increased,. PSYCH: Alert and oriented x3; mood and affect normal. NEUROLOGICAL: Cranial nerves grossly intact; no facial asymmetry, moving all 4 limbs Rest of the exam per nursing and pulmonary INVESTIGATIONS, reviewed in the clinical context: October 26: D-dimer 8.48 CRP 24 Chest CTA [October 26: biLateral pulmonary embolism Doppler ultrasound lower extremity: Negative for DVT October 24: White count 9.7 hemoglobin 15.3 platelets 221 d-dimer 1.93 progression 4.2 creatinine 0.71 CRP 5.5 pro-calcitonin 0.08 White count 9.9 hemoglobin 16 platelets 234 d-dimer 0.98 sodium 141 potassium 3.4 creatinine 0.81 Lactic acid 2.9 LDH 1422 CRP 7.5 EKG tracing personally reviewed by me-normal sinus rhythm. Nonspecific ST segment changes. Chest x-ray film personally reviewed by me-bilateral infiltrates Assessment and plan: -Acute severe COVID 19 pneumonitis in a patient who did not take the COVID-19 vaccine: Worsening Dexamethasone, vitamin C, vitamin D, zinc. Patient's outside the window for Remdesivir. -Acute hypoxic respiratory failure from COVID-19: Not improving Currently on 11 L of nasal cannula -Bilateral pulmonary embolism secondary to COVID-19 Eliquis started today -Essential hypertension Lopressor 50 mg twice a day, Cozaar 50 mg daily -Diabetes mellitus type 2, on oral hypoglycemic, uncontrolled with hyperglycemia Glucophage thousand milligrams twice a day. Follow Accu-Chek. Precose. Add Levemir -Chronic insomnia for medical conditions Elavil 50 mg daily at bedtime -Hyperlipidemia TriCor 48 mg daily -Obstructive sleep apnea Use CPAP -Diabetic peripheral neuropathy Lyrica 200 mg twice daily -Full code Dexamethasone. 11 L of oxygen PE on computed tomography scan. Eliquis added. Other medications to continue.
[2021-10-27] MEDS: guaiFENesin-Coden 100-10MG/5ML 10 ML CUP PO SCH ×5 (01:23→23:26)
[2021-10-27 06:59] LABS: Glucose,Whole Blood 185 mg/dL (75-99)
[2021-10-27] MEDS: ALBUTEROL HFA INHALER INHALATION PRN ×2 (07:38→11:25)
[2021-10-27] MEDS: DEXAMETHASONE SOD PHOSPHATE 10 MG/ML 1 ML VIAL IVP SCH ×2 (10:25→22:09)
[2021-10-27] MEDS: ACARBOSE 25 MG TAB PO SCH ×3 (10:26→17:26)
[2021-10-27] MEDS: ASCORBIC ACID 500 MG TAB PO SCH (10:26)
[2021-10-27] MEDS: PREGABALIN 100 MG CAP PO SCH ×2 (10:26→22:08)
[2021-10-27] MEDS: APIXABAN 5 MG TAB PO SCH ×2 (10:26→22:07)
[2021-10-27] MEDS: carBAMazepine 200 MG TAB PO SCH ×2 (10:26→22:07)
[2021-10-27] MEDS: SERTRALINE 50 MG TAB PO SCH (10:26)
[2021-10-27] MEDS: METOPROLOL TARTRATE 50 MG TAB PO SCH ×2 (10:27→22:08)
[2021-10-27] MEDS: CHOLECALCIFEROL 25 MCG (1000 IU) TABLET PO SCH (10:27)
[2021-10-27] MEDS: INSULIN ASPART (NovoLOG) 100 UNIT/ML VIAL SQ SCH ×4 (10:27→22:08)
[2021-10-27] MEDS: ZINC SULFATE 220 MG CAP PO SCH (10:27)
[2021-10-27 11:55] LABS: Glucose,Whole Blood 191 mg/dL (75-99)
[2021-10-27] MEDS: CLOTRIMAZOLE/BETAMETH 1-0.05% CREAM 45 GM TUBE TOPICAL SCH ×2 (12:04→22:09)
--- NOTE | 2021-10-27 15:33 | P.PN ---
Subjective Progress Note Date: 10/27/21 Principal diagnosis: Acute COVID-19 pneumonia 61-year-old male patient with past medical history of diabetes mellitus type 2 with diabetic neuropathy, hypertension, hyperlipidemia, previous history of CVA, rheumatoid arthritis, obstructive sleep apnea S/P UPPP, history of right eye melanoma with previous surgeries, BPH with previous TURP, chronic lower extremity edema, cellulitis, gout, presented to the emergency department on 10/23/2021 at 240 3 in the morning with complaints of severe shortness of breath, cough, congestion. Patient states he has had symptoms since October 09, initially was tested via rapid COVID-19 PCR test which was negative however the send out PCR test came back positive. He states over the last 2 weeks his symptoms continue to worsen, he feels weak, short of breath, complains of cough and chest congestion. No chest pain. He has not been vaccinated against COVID- 19. He does endorse fever, malaise, nausea, abdominal pain. His chest x-ray showed moderate pulmonary testicular edema. His lab work has been reviewed showing white blood cell count of 9.9, hemoglobin 16, platelet count is 234, neutrophils 8.1, lymphocyte count is 1.49, INR is 1.1, sodium is 141, potassium is 3.4, chloride is 101, CO2 is 23, BUN is 23 creatinine 0.81, plasma lactic acid was 2.9 and is currently down to 1.7, LDH was 1422, proBNP was 185, LFTs were within normal limits. Patient is currently requiring 8 L of oxygen his pulse ox is 96%, he still has a congested cough, he has been afebrile, he is short of breath with any exertion. Denies any hemoptysis or chest discomfort. Has been started on Decadron 6 mg daily, he was given IV hydration with 1 L b olus, and currently receiving 0.9 normal saline at a rate of 1:30 ML per hour, his lactic acid has improved. Patient is outside the window for Remdesivir. The patient is seen today 10/24/2021 in follow-up on the regular medical floor. He is currently sitting up in a chair at the bedside. Awake alert in no acute distress. Doing about the same today as compared to yesterday. He is on 11 L high flow nasal cannula to maintain O2 saturations in the 90s. He is dyspneic with conversation. Dyspneic with minimal exertion. Follow-up chest x-ray is unchanged. Still with bilateral interstitial and airspace opacities. No pneumothorax or large effusions. White count 9.7. Hemoglobin 15.3. D-dimer 1.93 sodium 141 potassium 4.2. Creatinine 0.71. LDH 1592. C-reactive protein 5.5. Pro-calcitonin 0.08. He is continued on Decadron, Lovenox, vitamin supplements. On 10/25/2021 she is seen in follow-up on regular medical surgical floor. Currently on 11 L of oxygen pulse ox is 92%. He states he gets severe coughing spells, and that's when he desaturates and gets short of breath. He takes shallow breaths, lung sounds are diminished, no wheezing or crackles appreciated on today's exam, he gets up to the bathroom, tolerates activity fairly well. His cough is dry, nonproductive. No complaints of chest discomfort. His last chest x-ray from yesterday showed no pneumothorax or large effusion, mild prominence of the heart accentuated by low lung volumes. Relatively stable or perhaps slightly improved bilateral interstitial and airspace opacities. Patient remains on a combination of Decadron 6 mg daily, Lovenox 40 mg daily, he is on COVID-19 multivitamins. His d-dimer from yesterday was 1.93, electrolytes were within normal limits, renal profile was normal, his inflammatory markers were relatively stable with LDH slightly increased compared admission level and yesterday was 1592, and CRP was 5.5, pro-calcitonin level was negative, proBNP was within normal limits. On 10/26/2021 patient seen in follow-up on medical surgical floor. He is on 11 L of oxygen his pulse ox is 90-94%, chest x-ray shows diffuse bilateral infiltrates. He remains on Decadron 6 mg twice daily, blood pressure is stable, afebrile, he is awake and alert, oriented 3, breathing fairly comfortably, the coughing has subsided, significantly improved. However on today's labs d-dimer was significantly elevated at 8.48, and CTA chest was obtained showing scattered filling defects within the lower lobe pulmonary arterial branches bilaterally right greater than left compatible with pulmonary embolism. Lower extremity Dopplers showing no evidence of DVT. Patient has been transitioned to oral Eliquis milligrams twice daily. Hemodynamically she is stable. His LDH is improving and is down to 1382, by CRP has increased and is currently at 24, pro- calcitonin level was negative at 0.08. Currently continues on Decadron 6.5 twice daily, he is on Eliquis now, he is on COVID-19 multivitamins and on cough syrup [id number]. On 10/27/2021 patient seen in follow-up on medical surgical floor. Currently on 15 L per high flow nasal cannula his pulse ox is 96%, she is breathing comfortably, in no acute distress, did have a low-grade fever today. Blood pressure is been stable, patient was diagnosed with bilateral lower lobe PEs. Negative Doppler of lower extremities. She has been started on Eliquis yesterday at therapeutic doses 10 mg twice daily. No complaints of chest discomfort, no hemoptysis, continues on Decadron 6 mg twice daily, continues on COVID19 multivitamins. His cough seems to have improved, continues on Robitussin-AC [id number]. Objective - Vital Signs Vital signs: Vital Signs Temp 100.2 F H 10/27/21 15:18 Pulse 60 10/27/21 15:18 Resp 18 10/27/21 15:18 BP 110/68 10/27/21 15:18 Pulse Ox 96 10/27/21 15:18 Intake & Output 10/26/21 10/27/21 10/27/21 18:59 06:59 18:59 Intake Total 1040 0 Balance 1040 0 Intake: Intake, IV Titration 1040 0 Amount Sodium Chloride 0.9% 1, 1040 0 000 ml @ 130 mls/hr IV . Q7H42M PENDING SALE TO [facility] Rx#:[id number] Other: Voiding Method Urinal # Voids 1 # Bowel Movements 0 - Exam GENERAL EXAM: Alert, very pleasant, 61-year-old white male, currently on 15 L of oxygen and the pulse ox of 96%, has a congested cough, but appears to be in no a cute distress comfortable in no apparent distress. HEAD: Normocephalic/atraumatic. EYES: Normal reaction of pupils, equal size. Conjunctiva pink, sclera white. NOSE: Clear with pink turbinates. THROAT: No erythema or exudates. NECK: No masses, no JVD, no thyroid enlargement, no adenopathy. CHEST: No chest wall deformity. Symmetrical expansion. LUNGS: Equal air entry with diffuse crackles CVS: Regular rate and rhythm, normal S1 and S2, no gallops, no murmurs, no rubs ABDOMEN: Soft, nontender. No hepatosplenomegaly, normal bowel sounds, no guarding or rigidity. EXTREMITIES: No clubbing, no edema, no cyanosis, 2+ pulses and upper and lower extremities. MUSCULOSKELETAL: Muscle strength and tone normal. SPINE: No scoliosis or deformity SKIN: No rashes CENTRAL NERVOUS SYSTEM: Alert and oriented -3. No focal deficits, tone is normal in all 4 extremities. PSYCHIATRIC: Alert and oriented -3. Appropriate affect. Intact judgment and insight. - Labs CBC & Chem 7: 10/24/21 08:19 10/24/21 08:19 Labs: Abnormal Lab Results - Last 24 Hours (Table) 10/26/21 10/26/21 10/27/21 Range/Units 16:50 20:17 06:57 POC Glucose (mg/dL) 267 H 366 H 185 H (75-99) mg/dL 10/27/21 Range/Units 11:53 POC Glucose (mg/dL) 191 H (75-99) mg/dL Assessment and Plan Plan: Assessment: #1. Acute hypoxic respiratory failure related to acute COVID-19 related pneumonia, patient presented to the emergency department on 10/23/2021 with 2 week history of symptoms, patient is outside the window for Remdesivir, he is a non-vaccinated adult. Currently on 15 L of oxygen #2. Acute pulmonary embolism within the lower lobe, right artery right greater than left, started on Eliquis on 10/26/2021 #3. Diabetes mellitus type 2 with diabetic neuropathy #4. Hypertension #5. Hyperlipidemia #6. BPH with previous history of TURP #7. Obstructive sleep apnea with previous history of UPPP #8. History of right eye melanoma with multiple surgeries #9. Previous history of CVA #10. Rheumatoid arthritis #11. History of gout #12. Previous history of MRSA infection in the wound on his back #13. Mild lactic acidosis, improved with IV hydration #14. Elevated inflammatory markers related to acute COVID-19 pneumonia Plan: Continue current dose Decadron Continue Eliquis Continue COVID-19 vitamins Today patient is on 15 L of oxygen Does not appear to be in any acute distress Weaning FiO2 back down to keep O2 sats ration is at 90% or better We'll continue to follow his clinical course I performed a history & physical examination of the patient and discussed their management with my nurse practitioner, Linda Giordano. I reviewed the nurse practitioner's note and agree with the documented findings and plan of care. Lung sounds are positive for dim with diffuse wheezes throughout the lung malone. The findings and the impression was discussed with the patient. I attest to the documentation by the nurse practitioner. Time with Patient: Less than 30
[2021-10-27 16:48] LABS: Glucose,Whole Blood 229 mg/dL (75-99)
[2021-10-27 20:54] LABS: Glucose,Whole Blood 183 mg/dL (75-99)
--- NOTE | 2021-10-27 21:48 | P.PN ---
Progress Note - Text Progress Note Date: 10/27/21 Chief Complaint: Short of breath This is a pleasant 61-year-old patient, chronic stable medical conditions include diabetes, hypertension, hyperlipidemia, osteoarthritis, peripheral neuropathy, chronic gout. Patient presents with increasing shortness of breath. Cough. Clear sputum. Fever and chills. Tired rundown decrease appetite and diarrhea about 2 times a day. Patient tested positive for COVID-19 on October 09. His initial rapid COVID-19 was negative. In the send out came back positive. Patient did not take the vaccine against COVID-19. He is on 8 L of oxygen this morning. He is outside the window for Remdesivir. Admitted with COVID 19 pneumonitis, acute hypoxic respiratory failure. Started on Decadron. IV fluids. October 24: Feeling a bit better. Short of breath. 92% on 11 L. Did eat some. Sitting at the edge of the bed. A bit tired October 25: Short of breath. Cough. Oral intake fair. On 11 L of nasal cannula. Did sit up in a chair. October 26: Short of breath. Oral intake fair. Cough. 11 L nasal cannula. Dexamethasone. Chest CTA showing bilateral pulmonary embolism. October 27: Short of breath. Eating fair. 15 L nasal cannula. Tired. Review of systems: Was done for constitutional, cardiovascular, GI, pulmonary. relevant finding as above Active Medications Acarbose (Acarbose 25 Mg Tab) 50 mg PO TID-W/MEALS [facility] Last Admin: 10/27/21 17:26 Dose: 50 mg Documented by: Acetaminophen (Acetaminophen Tab 325 Mg Tab) 650 mg PO Q6HR PRN PRN Reason: Mild Pain or Fever > 100.5 Last Admin: 10/25/21 20:43 Dose: 650 mg Documented by: Albuterol Sulfate (Albuterol Hfa Inhaler) 2 puff INHALATION RT-QID PRN PRN Reason: Shortness Of Breath Last Admin: 10/27/21 11:25 Dose: 2 puff Documented by: Alprazolam (Alprazolam 0.25 Mg Tab) 0.25 mg PO BID PRN PRN Reason: Anxiety Amitriptyline HCl (Amitriptyline Hcl 50 Mg Tab) 50 mg PO HS [facility] Last Admin: 10/26/21 20:23 Dose: 50 mg Documented by: Apixaban (Apixaban 5 Mg Tab) 10 mg PO BID [facility]; Protocol Stop: 11/01/21 21:01 Last Admin: 10/27/21 10:26 Dose: 10 mg Documented by: Apixaban (Apixaban 5 Mg Tab) 5 mg PO BID [facility]; Protocol Ascorbic Acid (Ascorbic Acid 500 Mg Tab) 1,000 mg PO DAILY [facility] Last Admin: 10/27/21 10:26 Dose: 1,000 mg Documented by: Betamethasone/Clotrimazole (Clotrimazole/Betameth 1-0.05% Cream 45 Gm Tube) 1 applic TOPICAL BID [facility]; Protocol Last Admin: 10/27/21 12:04 Dose: Not Given Documented by: Calcium Carbonate/Glycine (Calcium Carbonate 500 Mg Chewable) 1,000 mg PO Q4HR PRN PRN Reason: Dyspepsia Carbamazepine (Carbamazepine 200 Mg Tab) 400 mg PO BID [facility] Last Admin: 10/27/21 10:26 Dose: 400 mg Documented by: Cholecalciferol (Cholecalciferol 25 Mcg (1000 Iu) Tablet) 25 mcg PO DAILY [facility] Last Admin: 10/27/21 10:27 Dose: 25 mcg Documented by: Dexamethasone Sodium Phosphate (Dexamethasone Sod Phosphate 10 Mg/Ml 1 Ml Vial) 6 mg IVP BID [facility] Last Admin: 10/27/21 10:25 Dose: 6 mg Documented by: Guaifenesin/Codeine Phosphate (Guaifenesin-Coden 100-10mg/5ml 10 Ml Cup) 10 ml PO Q6HR [facility] Last Admin: 10/27/21 17:26 Dose: 10 ml Documented by: Insulin Aspart (Insulin Aspart (Novolog) 100 Unit/Ml Vial) 0 unit SQ [facility]; Protocol Last Admin: 10/27/21 17:26 Dose: 3 unit Documented by: Insulin Detemir (Insulin Detemir (Levemir) 100 Unit/Ml Syr) 8 unit SQ HS [facility] Last Admin: 10/26/21 20:22 Dose: 8 unit Documented by: Lactulose (Lactulose 20 Gm/30 Ml Cup) 20 gm PO DAILY PRN PRN Reason: Constipation Metoprolol Tartrate (Metoprolol Tartrate 50 Mg Tab) 50 mg PO BID [facility] Last Admin: 10/27/21 10:27 Dose: 50 mg Documented by: Naloxone HCl (Naloxone 0.4 Mg/Ml 1 Ml Vial) 0.2 mg IV Q2M PRN PRN Reason: Opioid Reversal Ondansetron HCl (Ondansetron 4 Mg/2 Ml Vial) 4 mg IVP Q8HR PRN PRN Reason: Nausea And Vomiting Pregabalin (Pregabalin 100 Mg Cap) 200 mg PO BID [facility] Last Admin: 10/27/21 10:26 Dose: 200 mg Documented by: Sertraline HCl (Sertraline 50 Mg Tab) 50 mg PO DAILY [facility] Last Admin: 10/27/21 10:26 Dose: 50 mg Documented by: Zinc Sulfate (Zinc Sulfate 220 Mg Cap) 220 mg PO DAILY [facility] Last Admin: 10/27/21 10:27 Dose: 220 mg Documented by: Social history: Patient is on Social Security. Does not smoke or drink alcohol. Patient's daughters family lives with him. Family history: Father at the age of 40 with heart attack Physical examination: VITAL SIGNS: 98.6, 79, 22, 131/68, 96% on 15 L high flow GENERAL: Reclining in bed, awake,, Awake short of breath LUNGS: Respiratory rate increased,. PSYCH: Alert and oriented x3; mood and affect normal. NEUROLOGICAL: Cranial nerves grossly intact; no facial asymmetry, moving all 4 limbs Rest of the exam per nursing and pulmonary INVESTIGATIONS, reviewed in the clinical context: October 26: D-dimer 8.48 CRP 24 Chest CTA [October 26: biLateral pulmonary embolism Doppler ultrasound lower extremity: Negative for DVT October 24: White count 9.7 hemoglobin 15.3 platelets 221 d-dimer 1.93 progression 4.2 creatinine 0.71 CRP 5.5 pro-calcitonin 0.08 White count 9.9 hemoglobin 16 platelets 234 d-dimer 0.98 sodium 141 potassium 3.4 creatinine 0.81 Lactic acid 2.9 LDH 1422 CRP 7.5 EKG tracing personally reviewed by me-normal sinus rhythm. Nonspecific ST segment changes. Chest x-ray film personally reviewed by me-bilateral infiltrates Assessment and plan: -Acute severe COVID 19 pneumonitis in a patient who did not take the COVID-19 vaccine: Worsening Dexamethasone, vitamin C, vitamin D, zinc. Patient's outside the window for Remdesivir. -Acute hypoxic respiratory failure from COVID-19: Worsening Currently on 15 L of nasal cannula -Bilateral pulmonary embolism secondary to COVID-19 Eliquis -Essential hypertension Lopressor 50 mg twice a day, Cozaar 50 mg daily -Diabetes mellitus type 2, on oral hypoglycemic, uncontrolled with hyperglycemia Glucophage thousand milligrams twice a day. Follow Accu-Chek. Precose. Increase Levemir to 16 units daily at bedtime -Chronic insomnia for medical conditions Elavil 50 mg daily at bedtime -Hyperlipidemia TriCor 48 mg daily -Obstructive sleep apnea Use CPAP -Diabetic peripheral neuropathy Lyrica 200 mg twice daily -Full code Dexamethasone. Eliquis. 15 L of oxygen. Increase Levemir to 16 units. Discussed with the patient. Up in chair as tolerated.
[2021-10-27] MEDS ORDERED: INSULIN DETEMIR (LEVEMIR) 100 UNIT/ML SYR SQ SCH (22:00)
[2021-10-27] MEDS: AMITRIPTYLINE HCL 50 MG TAB PO SCH (22:07)
[2021-10-27] MEDS: INSULIN DETEMIR (LEVEMIR) 100 UNIT/ML SYR SQ SCH (22:23)
[2021-10-28] MEDS: guaiFENesin-Coden 100-10MG/5ML 10 ML CUP PO SCH ×3 (05:31→17:09)
[2021-10-28 07:03] LABS: Glucose,Whole Blood 153 mg/dL (75-99)
[2021-10-28] MEDS: DEXAMETHASONE SOD PHOSPHATE 10 MG/ML 1 ML VIAL IVP SCH ×2 (07:55→21:20)
[2021-10-28] MEDS: INSULIN ASPART (NovoLOG) 100 UNIT/ML VIAL SQ SCH ×4 (07:55→21:22)
[2021-10-28] MEDS: PREGABALIN 100 MG CAP PO SCH ×2 (07:56→21:21)
[2021-10-28] MEDS: ACARBOSE 25 MG TAB PO SCH ×3 (07:56→17:09)
[2021-10-28] MEDS: APIXABAN 5 MG TAB PO SCH ×2 (07:56→21:20)
[2021-10-28] MEDS: METOPROLOL TARTRATE 50 MG TAB PO SCH ×2 (07:56→21:21)
[2021-10-28] MEDS: SERTRALINE 50 MG TAB PO SCH (07:56)
[2021-10-28] MEDS: CLOTRIMAZOLE/BETAMETH 1-0.05% CREAM 45 GM TUBE TOPICAL SCH ×2 (07:57→21:21)
[2021-10-28] MEDS: CHOLECALCIFEROL 25 MCG (1000 IU) TABLET PO SCH (07:57)
[2021-10-28] MEDS: ZINC SULFATE 220 MG CAP PO SCH (07:57)
[2021-10-28] MEDS: carBAMazepine 200 MG TAB PO SCH ×2 (07:57→21:21)
[2021-10-28] MEDS: ASCORBIC ACID 500 MG TAB PO SCH (07:57)
[2021-10-28] MEDS: ALBUTEROL HFA INHALER INHALATION PRN ×2 (08:17→11:34)
[2021-10-28 12:01] LABS: Glucose,Whole Blood 157 mg/dL (75-99)
--- NOTE | 2021-10-28 14:29 | P.PN ---
Subjective Progress Note Date: 10/28/21 Principal diagnosis: 61-year-old male patient with past medical history of diabetes mellitus type 2 with diabetic neuropathy, hypertension, hyperlipidemia, previous history of CVA, rheumatoid arthritis, obstructive sleep apnea S/P UPPP, history of right eye melanoma with previous surgeries, BPH with previous TURP, chronic lower extremity edema, cellulitis, gout, presented to the emergency department on 10/23/2021 at 240 3 in the morning with complaints of severe shortness of breath, cough, congestion. Patient states he has had symptoms since October 09, initially was tested via rapid COVID-19 PCR test which was negative however the send out PCR test came back positive. He states over the last 2 weeks his symptoms continue to worsen, he feels weak, short of breath, complains of cough and chest congestion. No chest pain. He has not been vaccinated against COVID-19. He does endorse fever, malaise, nausea, abdominal pain. His chest x- ray showed moderate pulmonary testicular edema. His lab work has been reviewed showing white blood cell count of 9.9, hemoglobin 16, platelet count is 234, neutrophils 8.1, lymphocyte count is 1.49, INR is 1.1, sodium is 141, potassium is 3.4, chloride is 101, CO2 is 23, BUN is 23 creatinine 0.81, plasma lactic acid was 2.9 and is currently down to 1.7, LDH was 1422, proBNP was 185, LFTs were within normal limits. Patient is currently requiring 8 L of oxygen his pulse ox is 96%, he still has a congested cough, he has been afebrile, he is short of breath with any exertion. Denies any hemoptysis or chest discomfort. Has been started on Decadron 6 mg daily, he was given IV hydration with 1 L bolus, and currently receiving 0.9 normal saline at a rate of 1:30 ML per hour, his lactic acid has improved. Patient is outside the window for Remdesivir. The patient is seen today 10/24/2021 in follow-up on the regular medical floor. He is currently sitting up in a chair at the bedside. Awake alert in no acute distress. Doing about the same today as compared to yesterday. He is on 11 L high flow nasal cannula to maintain O2 saturations in the 90s. He is dyspneic with conversation. Dyspneic with minimal exertion. Follow-up chest x-ray is unchanged. Still with bilateral interstitial and airspace opacities. No pneumothorax or large effusions. White count 9.7. Hemoglobin 15.3. D-dimer 1.93 sodium 141 potassium 4.2. Creatinine 0.71. LDH 1592. C-reactive protein 5.5. Pro-calcitonin 0.08. He is continued on Decadron, Lovenox, vitamin supplements. The patient is seen today 10/28/2021 in follow-up on the regular medical floor. He is currently sitting up in a chair at the bedside. Awake and alert in no acute distress. He is still requiring 15 L high flow nasal cannula plus an occasional nonrebreather mask. His only complaint today is that of a headache. No worsening shortness of breath, cough or congestion. Patient was found to have bilateral pulmonary emboli. Dopplers of the lower extremity were negative for DVT. He is maintained on Eliquis, Decadron, vitamin supplements. D-dimer 13.4. Blood glucose 153. Objective - Vital Signs Vital signs: Vital Signs Temp 98.3 F 10/28/21 10:00 Pulse 73 10/28/21 10:00 Resp 16 10/28/21 10:00 BP 154/87 10/28/21 10:00 Pulse Ox 90 L 10/28/21 10:00 Intake & Output 10/27/21 10/28/21 10/28/21 18:59 06:59 18:59 Intake Total 475 Balance 475 Intake: Oral 475 Other: Voiding Method Urinal Urinal # Voids 4 1 # Bowel Movements 0 - Exam GENERAL EXAM: Alert, very pleasant 61 old gentleman, up in a chair at the bedside, on 15 L high flow nasal cannula plus a nonrebreather mask, fairly comfortable in no apparent distress. HEAD: Normocephalic. EYES: Normal reaction of pupils, equal size. NOSE: Clear with pink turbinates. THROAT: No erythema or exudates. NECK: No masses, no JVD. CHEST: No chest wall deformity. LUNGS: Equal air entry with coarse crackles in the posterior bases. CVS: S1 and S2 normal with no audible murmur, regular rhythm. ABDOMEN: No hepatosplenomegaly, normal bowel sounds, no guarding or rigidity. SPINE: No scoliosis or deformity SKIN: No rashes CENTRAL NERVOUS SYSTEM: No focal deficits, tone is normal in all 4 extremities. EXTREMITIES: There is no peripheral edema. No clubbing, no cyanosis. Peripheral pulses are intact. - Labs CBC & Chem 7: 10/24/21 08:19 10/24/21 08:19 Labs: Abnormal Lab Results - Last 24 Hours (Table) 10/27/21 10/27/21 10/28/21 Range/Units 16:46 20:41 06:10 D-Dimer 13.42 H (<0.60) mg/L FEU POC Glucose (mg/dL) 229 H 183 H (75-99) mg/dL 10/28/21 10/28/21 Range/Units 06:54 11:57 D-Dimer (<0.60) mg/L FEU POC Glucose (mg/dL) 153 H 157 H (75-99) mg/dL Assessment and Plan Assessment: 1 Acute hypoxic respiratory failure related to acute COVID-19 related pneumonia, patient presented to the emergency department on 10/23/2021 with 2 week history of symptoms, patient is outside the window for Remdesivir, he is a non-vaccinated adult. Currently on 15 L high flow nasal cannula +100% nonrebreather mask. 2 Found to have pulmonary emboli on computed tomography scan 10/26/2021. Continued on Eliquis. 3 Diabetes mellitus type 2 with diabetic neuropathy 4 Hypertension 5 Hyperlipidemia 6 Obstructive sleep apnea with previous history of UPPP 7 History of right eye melanoma with multiple surgeries 8 Previous history of CVA 9 Rheumatoid arthritis 10 History of gout 11 Previous history of MRSA infection in the wound on his back 12 Mild lactic acidosis, improved with IV hydration 13 Elevated inflammatory markers related to acute COVID-19 pneumonia 14 BPH with previous history of TURP Plan: The patient was seen and evaluated Currently on 15 L high flow nasal cannula and nonrebreather mask Titrate the FiO2 as tolerated Up in a chair at the bedside Continue Decadron, Eliquis, vitamin supplements We'll continue to follow I, the cosigning physician, performed a history & physical examination of the patient. Lungs sounds are coarse crackles in the bilateral bases. Maintaining O2 saturations in the 90s on 15 L high flow nasal cannula plus a nonrebreather mask. I discussed the assessment and plan of care with my nurse practitioner, Jenna Batres. I attest to the above note as dictated by her.
[2021-10-28 14:34] LABS: Coronavirus SARS CoV-2 Detected (Not Detected)
[2021-10-28 17:12] LABS: Glucose,Whole Blood 160 mg/dL (75-99)
[2021-10-28 20:03] LABS: Glucose,Whole Blood 116 mg/dL (75-99)
[2021-10-28] MEDS: ACETAMINOPHEN TAB 325 MG TAB PO PRN (21:19)
[2021-10-28] MEDS: AMITRIPTYLINE HCL 50 MG TAB PO SCH (21:21)
[2021-10-28] MEDS: INSULIN DETEMIR (LEVEMIR) 100 UNIT/ML SYR SQ SCH (21:22)
--- NOTE | 2021-10-28 21:58 | P.PN ---
Progress Note - Text Progress Note Date: 10/28/21 Chief Complaint: Short of breath This is a pleasant 61-year-old patient, chronic stable medical conditions include diabetes, hypertension, hyperlipidemia, osteoarthritis, peripheral neuropathy, chronic gout. Patient presents with increasing shortness of breath. Cough. Clear sputum. Fever and chills. Tired rundown decrease appetite and diarrhea about 2 times a day. Patient tested positive for COVID-19 on October 09. His initial rapid COVID-19 was negative. In the send out came back positive. Patient did not take the vaccine against COVID-19. He is on 8 L of oxygen this morning. He is outside the window for Remdesivir. Admitted with COVID 19 pneumonitis, acute hypoxic respiratory failure. Started on Decadron. IV fluids. October 24: Feeling a bit better. Short of breath. 92% on 11 L. Did eat some. Sitting at the edge of the bed. A bit tired October 25: Short of breath. Cough. Oral intake fair. On 11 L of nasal cannula. Did sit up in a chair. October 26: Short of breath. Oral intake fair. Cough. 11 L nasal cannula. Dexamethasone. Chest CTA showing bilateral pulmonary embolism. October 27: Short of breath. Eating fair. 15 L nasal cannula. Tired. October 28: Remains on 15 L of nasal cannula. Eating about 50%. Short of breath. Tired. Trying to change his positions in bed. Including prone. Review of systems: Was done for constitutional, cardiovascular, GI, pulmonary. relevant finding as above Active Medications Acarbose (Acarbose 25 Mg Tab) 50 mg PO TID-W/MEALS [facility] Last Admin: 10/28/21 17:09 Dose: 50 mg Documented by: Acetaminophen (Acetaminophen Tab 325 Mg Tab) 650 mg PO Q6HR PRN PRN Reason: Mild Pain or Fever > 100.5 Last Admin: 10/28/21 21:19 Dose: 650 mg Documented by: Albuterol Sulfate (Albuterol Hfa Inhaler) 2 puff INHALATION RT-QID PRN PRN Reason: Shortness Of Breath Last Admin: 10/28/21 11:34 Dose: 2 puff Documented by: Alprazolam (Alprazolam 0.25 Mg Tab) 0.25 mg PO BID PRN PRN Reason: Anxiety Amitriptyline HCl (Amitriptyline Hcl 50 Mg Tab) 50 mg PO HS [facility] Last Admin: 10/28/21 21:21 Dose: 50 mg Documented by: Apixaban (Apixaban 5 Mg Tab) 10 mg PO BID [facility]; Protocol Stop: 11/01/21 21:01 Last Admin: 10/28/21 21:20 Dose: 10 mg Documented by: Apixaban (Apixaban 5 Mg Tab) 5 mg PO BID [facility]; Protocol Ascorbic Acid (Ascorbic Acid 500 Mg Tab) 1,000 mg PO DAILY [facility] Last Admin: 10/28/21 07:57 Dose: 1,000 mg Documented by: Betamethasone/Clotrimazole (Clotrimazole/Betameth 1-0.05% Cream 45 Gm Tube) 1 applic TOPICAL BID [facility]; Protocol Last Admin: 10/28/21 21:21 Dose: 1 applic Documented by: Calcium Carbonate/Glycine (Calcium Carbonate 500 Mg Chewable) 1,000 mg PO Q4HR PRN PRN Reason: Dyspepsia Carbamazepine (Carbamazepine 200 Mg Tab) 400 mg PO BID [facility] Last Admin: 10/28/21 21:21 Dose: 400 mg Documented by: Cholecalciferol (Cholecalciferol 25 Mcg (1000 Iu) Tablet) 25 mcg PO DAILY [facility] Last Admin: 10/28/21 07:57 Dose: 25 mcg Documented by: Dexamethasone Sodium Phosphate (Dexamethasone Sod Phosphate 10 Mg/Ml 1 Ml Vial) 6 mg IVP BID [facility] Last Admin: 10/28/21 21:20 Dose: 6 mg Documented by: Guaifenesin/Codeine Phosphate (Guaifenesin-Coden 100-10mg/5ml 10 Ml Cup) 10 ml PO Q6HR [facility] Last Admin: 10/28/21 17:09 Dose: 10 ml Documented by: Insulin Aspart (Insulin Aspart (Novolog) 100 Unit/Ml Vial) 0 unit SQ [facility]; Protocol Last Admin: 10/28/21 21:22 Dose: Not Given Documented by: Insulin Detemir (Insulin Detemir (Levemir) 100 Unit/Ml Syr) 16 unit SQ [facility] Last Admin: 10/28/21 21:22 Dose: 16 unit Documented by: Lactulose (Lactulose 20 Gm/30 Ml Cup) 20 gm PO DAILY PRN PRN Reason: Constipation Metoprolol Tartrate (Metoprolol Tartrate 50 Mg Tab) 50 mg PO BID [facility] Last Admin: 10/28/21 21:21 Dose: 50 mg Documented by: Naloxone HCl (Naloxone 0.4 Mg/Ml 1 Ml Vial) 0.2 mg IV Q2M PRN PRN Reason: Opioid Reversal Ondansetron HCl (Ondansetron 4 Mg/2 Ml Vial) 4 mg IVP Q8HR PRN PRN Reason: Nausea And Vomiting Pregabalin (Pregabalin 100 Mg Cap) 200 mg PO BID [facility] Last Admin: 10/28/21 21:21 Dose: 200 mg Documented by: Sertraline HCl (Sertraline 50 Mg Tab) 50 mg PO DAILY [facility] Last Admin: 10/28/21 07:56 Dose: 50 mg Documented by: Zinc Sulfate (Zinc Sulfate 220 Mg Cap) 220 mg PO DAILY [facility] Last Admin: 10/28/21 07:57 Dose: 220 mg Documented by: Social history: Patient is on Social Security. Does not smoke or drink alcohol. Patient's daughters family lives with him. Family history: Father at the age of 40 with heart attack Physical examination: VITAL SIGNS: 98.9, 89, 18, 154/87, 90% on 15 L no wheezes/high flow GENERAL: Prone position in bed short of breath LUNGS: Respiratory rate increased,. PSYCH: Alert and oriented x3; mood and affect normal. NEUROLOGICAL: Cranial nerves grossly intact; no facial asymmetry, moving all 4 limbs Rest of the exam per nursing and pulmonary INVESTIGATIONS, reviewed in the clinical context: October 28: D-dimer 13.4 to October 26: D-dimer 8.48 CRP 24 Chest CTA [October 26: biLateral pulmonary embolism Doppler ultrasound lower extremity: Negative for DVT October 24: White count 9.7 hemoglobin 15.3 platelets 221 d-dimer 1.93 progression 4.2 creatinine 0.71 CRP 5.5 pro-calcitonin 0.08 White count 9.9 hemoglobin 16 platelets 234 d-dimer 0.98 sodium 141 potassium 3.4 creatinine 0.81 Lactic acid 2.9 LDH 1422 CRP 7.5 EKG tracing personally reviewed by me-normal sinus rhythm. Nonspecific ST segment changes. Chest x-ray film personally reviewed by me-bilateral infiltrates Assessment and plan: -Acute severe COVID 19 pneumonitis in a patient who did not take the COVID-19 vaccine: Worsening Dexamethasone, vitamin C, vitamin D, zinc. Patient's outside the window for Remdesivir. -Acute hypoxic respiratory failure from COVID-19: Not improving Currently on 15 L of nasal cannula -Bilateral pulmonary embolism secondary to COVID-19 Eliquis -Essential hypertension Lopressor 50 mg twice a day, Cozaar 50 mg daily -Diabetes mellitus type 2, on oral hypoglycemic, uncontrolled with hyperglycemia Glucophage thousand milligrams twice a day. Follow Accu-Chek. Precose. Increase Levemir to 16 units daily at bedtime -Chronic insomnia for medical conditions Elavil 50 mg daily at bedtime -Hyperlipidemia TriCor 48 mg daily -Obstructive sleep apnea Use CPAP -Diabetic peripheral neuropathy Lyrica 200 mg twice daily -Full code Dexamethasone. Eliquis. 15 L of oxygen. Levemir to 16 units. Discussed with the patient.
[2021-10-29] MEDS: guaiFENesin-Coden 100-10MG/5ML 10 ML CUP PO SCH ×4 (00:52→17:07)
[2021-10-29] MEDS: ALBUTEROL HFA INHALER INHALATION PRN ×3 (08:14→15:39)
[2021-10-29] MEDS: CLOTRIMAZOLE/BETAMETH 1-0.05% CREAM 45 GM TUBE TOPICAL SCH ×2 (08:49→21:34)
[2021-10-29] MEDS: ZINC SULFATE 220 MG CAP PO SCH (08:50)
[2021-10-29] MEDS: METOPROLOL TARTRATE 50 MG TAB PO SCH ×2 (08:50→20:50)
[2021-10-29] MEDS: DEXAMETHASONE SOD PHOSPHATE 10 MG/ML 1 ML VIAL IVP SCH ×2 (08:50→20:48)
[2021-10-29] MEDS: ACARBOSE 25 MG TAB PO SCH ×3 (08:50→17:08)
[2021-10-29] MEDS: APIXABAN 5 MG TAB PO SCH ×2 (08:50→20:47)
[2021-10-29] MEDS: INSULIN ASPART (NovoLOG) 100 UNIT/ML VIAL SQ SCH ×4 (08:51→21:10)
[2021-10-29] MEDS: ASCORBIC ACID 500 MG TAB PO SCH (08:51)
[2021-10-29] MEDS: carBAMazepine 200 MG TAB PO SCH ×2 (08:51→20:48)
[2021-10-29] MEDS: CHOLECALCIFEROL 25 MCG (1000 IU) TABLET PO SCH (08:51)
[2021-10-29] MEDS: SERTRALINE 50 MG TAB PO SCH (08:51)
[2021-10-29] MEDS: PREGABALIN 100 MG CAP PO SCH ×2 (08:51→20:47)
[2021-10-29 10:06] LABS: Glucose,Whole Blood 164 mg/dL (75-99)
[2021-10-29 11:22] LABS: Glucose,Whole Blood 147 mg/dL (75-99)
[2021-10-29 13:32] LABS: ALT 39 U/L (4-49); AST 32 U/L (17-59); African American GFR (CKD) >90 (>60 ml/min/1.73 sqM); Albumin 3.2 g/dL (3.5-5.0); Albumin/Globulin Ratio 0.9; Alkaline Phosphatase 82 U/L (38-126); Anion Gap 8 mmol/L; Blood Urea Nitrogen 13 mg/dL (9-20); Calcium 8.6 mg/dL (8.4-10.2); Carbon Dioxide 29 mmol/L (22-30); Chloride 103 mmol/L (98-107); Globulin 3.5 g/dL; Glucose 172 mg/dL (74-99); Non-African American GFR(CKD) >90 (>60 ml/min/1.73 sqM); Potassium 4.7 mmol/L (3.5-5.1); Sodium 140 mmol/L (137-145); Total Bilirubin 0.7 mg/dL (0.2-1.3); Total Protein 6.7 g/dL (6.3-8.2)
[2021-10-29 13:57] LABS: Basophils # (A) 0.1 k/uL (0-0.2); Basophils % (A) 0 %; Eosinophils # (A) 0.1 k/uL (0-0.7); Eosinophils % (A) 1 %; HCT 41.4 % (39.0-53.0); HGB 13.8 gm/dL (13.0-17.5); Lymphocytes # (A) 1.1 k/uL (1.0-4.8); Lymphocytes % (A) 8 %; MCH 32.4 pg (25.0-35.0); MCHC 33.5 g/dL (31.0-37.0); MCV 96.7 fL (80.0-100.0); Mean Platelet Volume 9.3; Monocytes % (A) 7 %; Neutrophils # (A) 10.8 k/uL (1.3-7.7); Neutrophils % (A) 82 %; Platelet Count 315 k/uL (150-450); Poikilocytosis Slight; RBC 4.28 m/uL (4.30-5.90); RDW 14.9 % (11.5-15.5); WBC 13.1 k/uL (3.8-10.6)
[2021-10-29] MEDS: BARICITINIB 2 MG TABLET PO SCH (14:57)
[2021-10-29] MEDS: ACETAMINOPHEN TAB 325 MG TAB PO PRN (15:46)
--- NOTE | 2021-10-29 16:35 | P.PN ---
Subjective Progress Note Date: 10/29/21 Principal diagnosis: 61-year-old male patient with past medical history of diabetes mellitus type 2 with diabetic neuropathy, hypertension, hyperlipidemia, previous history of CVA, rheumatoid arthritis, obstructive sleep apnea S/P UPPP, history of right eye melanoma with previous surgeries, BPH with previous TURP, chronic lower extremity edema, cellulitis, gout, presented to the emergency department on 10/23/2021 at 240 3 in the morning with complaints of severe shortness of breath, cough, congestion. Patient states he has had symptoms since October 09, initially was tested via rapid COVID-19 PCR test which was negative however the send out PCR test came back positive. He states over the last 2 weeks his symptoms continue to worsen, he feels weak, short of breath, complains of cough and chest congestion. No chest pain. He has not been vaccinated against COVID-19. He does endorse fever, malaise, nausea, abdominal pain. His chest x- ray showed moderate pulmonary testicular edema. His lab work has been reviewed showing white blood cell count of 9.9, hemoglobin 16, platelet count is 234, neutrophils 8.1, lymphocyte count is 1.49, INR is 1.1, sodium is 141, potassium is 3.4, chloride is 101, CO2 is 23, BUN is 23 creatinine 0.81, plasma lactic acid was 2.9 and is currently down to 1.7, LDH was 1422, proBNP was 185, LFTs were within normal limits. Patient is currently requiring 8 L of oxygen his pulse ox is 96%, he still has a congested cough, he has been afebrile, he is short of breath with any exertion. Denies any hemoptysis or chest discomfort. Has been started on Decadron 6 mg daily, he was given IV hydration with 1 L bolus, and currently receiving 0.9 normal saline at a rate of 1:30 ML per hour, his lactic acid has improved. Patient is outside the window for Remdesivir. The patient is seen today 10/24/2021 in follow-up on the regular medical floor. He is currently sitting up in a chair at the bedside. Awake alert in no acute distress. Doing about the same today as compared to yesterday. He is on 11 L high flow nasal cannula to maintain O2 saturations in the 90s. He is dyspneic with conversation. Dyspneic with minimal exertion. Follow-up chest x-ray is unchanged. Still with bilateral interstitial and airspace opacities. No pneumothorax or large effusions. White count 9.7. Hemoglobin 15.3. D-dimer 1.93 sodium 141 potassium 4.2. Creatinine 0.71. LDH 1592. C-reactive protein 5.5. Pro-calcitonin 0.08. He is continued on Decadron, Lovenox, vitamin supplements. The patient is seen today 10/28/2021 in follow-up on the regular medical floor. He is currently sitting up in a chair at the bedside. Awake and alert in no acute distress. He is still requiring 15 L high flow nasal cannula plus an occasional nonrebreather mask. His only complaint today is that of a headache. No worsening shortness of breath, cough or congestion. Patient was found to have bilateral pulmonary emboli. Dopplers of the lower extremity were negative for DVT. He is maintained on Eliquis, Decadron, vitamin supplements. D-dimer 13.4. Blood glucose 153. The patient is seen today 10/29/2021 in follow-up on the regular medical floor. He is quite a bit more short of breath today compared to yesterday. Somewhat restless. He is now on AirVo high flow oxygen at 60 L and 90% FiO2 plus a 100% nonrebreather mask. He is febrile. He is tachycardic. Tachypneic. White count 13.1. Hemoglobin 13.8. Lymphocytes 1.1. D-dimer 16.6. Sodium 140. Potassium 4.7. Creatinine 0.76. Blood sugar 147. AST 32. ALT 39. He is cont inued on Baricitinib, Eliquis, Decadron, vitamin supplements. Levemir and sliding scale for insulin coverage. Objective - Vital Signs Vital signs: Vital Signs Temp 100.3 F H 10/29/21 15:36 Pulse 120 H 10/29/21 15:36 Resp 28 H 10/29/21 15:36 BP 162/108 10/29/21 15:36 Pulse Ox 91 L 10/29/21 15:36 Intake & Output 10/28/21 10/29/21 10/29/21 18:59 06:59 18:59 Intake Total 300 Balance 300 Weight 81.647 kg Intake: Oral 300 Other: Voiding Method Urinal Urinal # Voids 3 1 3 - Exam GENERAL EXAM: Alert, restless 61-year-old male patient, currently in bed, on AirVo high flow oxygen at 60 L and 90% plus a 100% nonrebreather mask, in mild respiratory distress. HEAD: Normocephalic. EYES: Normal reaction of pupils, equal size. NOSE: Clear with pink turbinates. THROAT: No erythema or exudates. NECK: No masses, no JVD. CHEST: No chest wall deformity. LUNGS: Equal air entry with coarse crackles in the posterior bases. CVS: S1 and S2 normal with no audible murmur, regular rhythm. ABDOMEN: No hepatosplenomegaly, normal bowel sounds, no guarding or rigidity. SPINE: No scoliosis or deformity SKIN: No rashes CENTRAL NERVOUS SYSTEM: No focal deficits, tone is normal in all 4 extremities. EXTREMITIES: There is no peripheral edema. No clubbing, no cyanosis. Peripheral pulses are intact. - Labs CBC & Chem 7: 10/29/21 07:51 10/29/21 07:51 Labs: Abnormal Lab Results - Last 24 Hours (Table) 10/28/21 10/28/21 10/29/21 Range/Units 16:56 20:01 06:45 WBC (3.8-10.6) k/uL RBC (4.30-5.90) m/uL Neutrophils # (1.3-7.7) k/uL D-Dimer (<0.60) mg/L FEU Glucose (74-99) mg/dL POC Glucose (mg/dL) 160 H 116 H 164 H (75-99) mg/dL Albumin (3.5-5.0) g/dL 10/29/21 10/29/21 10/29/21 Range/Units 07:51 07:51 07:51 WBC 13.1 H (3.8-10.6) k/uL RBC 4.28 L (4.30-5.90) m/uL Neutrophils # 10.8 H (1.3-7.7) k/uL D-Dimer 16.26 H (<0.60) mg/L FEU Glucose 172 H (74-99) mg/dL POC Glucose (mg/dL) (75-99) mg/dL Albumin 3.2 L (3.5-5.0) g/dL 10/29/21 Range/Units 11:14 WBC (3.8-10.6) k/uL RBC (4.30-5.90) m/uL Neutrophils # (1.3-7.7) k/uL D-Dimer (<0.60) mg/L FEU Glucose (74-99) mg/dL POC Glucose (mg/dL) 147 H (75-99) mg/dL Albumin (3.5-5.0) g/dL Assessment and Plan Assessment: 1 Acute hypoxic respiratory failure related to acute COVID-19 related pneumonia, patient presented to the emergency department on 10/23/2021 with 2 week history of symptoms, patient is outside the window for Remdesivir, he is a non-vaccinated adult. More hypoxemic today 10/29/2021. Currently on AirVo high flow oxygen at 60 L and 90% FiO2 +100% nonrebreather mask. Initiated on Baricitinib. 2 Bilateral pulmonary emboli on computed tomography scan 10/26/2021. Continued on Eliquis. 3 Diabetes mellitus type 2 with diabetic neuropathy 4 Hypertension 5 Hyperlipidemia 6 Obstructive sleep apnea with previous history of UPPP 7 History of right eye melanoma with multiple surgeries 8 Previous history of CVA 9 Rheumatoid arthritis 10 History of gout 11 Previous history of MRSA infection in the wound on his back 12 Mild lactic acidosis, improved with IV hydration 13 Elevated inflammatory markers related to acute COVID-19 pneumonia 14 BPH with previous history of TURP Plan: The patient was seen and evaluated More hypoxemic today compared to yesterday Currently on AirVo high flow oxygen at 60 L and 90% FiO2 +100% nonrebreather mask Initiated on Baricitinib Continue Decadron, Eliquis, vitamin supplements Plan is to transfer to the ICU once a bed is available Prognosis is guarded We'll continue to follow I, the cosigning physician, performed a history & physical examination of the patient. Lungs sounds are coarse crackles in the bilateral bases. Maintaining O2 saturations in the 90s on AirVo high flow oxygen at 60 L and 90% FiO2 plus a nonrebreather mask. I discussed the assessment and plan of care with my nurse practitioner, Jenna Batres. I attest to the above note as dictated by her.
[2021-10-29 16:50] LABS: Glucose,Whole Blood 188 mg/dL (75-99)
--- NOTE | 2021-10-29 17:10 | P.PN ---
Progress Note - Text Progress Note Date: 10/29/21 Chief Complaint: Short of breath This is a pleasant 61-year-old patient, chronic stable medical conditions include diabetes, hypertension, hyperlipidemia, osteoarthritis, peripheral neuropathy, chronic gout. Patient presents with increasing shortness of breath. Cough. Clear sputum. Fever and chills. Tired rundown decrease appetite and diarrhea about 2 times a day. Patient tested positive for COVID-19 on October 09. His initial rapid COVID-19 was negative. In the send out came back positive. Patient did not take the vaccine against COVID-19. He is on 8 L of oxygen this morning. He is outside the window for Remdesivir. Admitted with COVID 19 pneumonitis, acute hypoxic respiratory failure. Started on Decadron. IV fluids. October 24: Feeling a bit better. Short of breath. 92% on 11 L. Did eat some. Sitting at the edge of the bed. A bit tired October 25: Short of breath. Cough. Oral intake fair. On 11 L of nasal cannula. Did sit up in a chair. October 26: Short of breath. Oral intake fair. Cough. 11 L nasal cannula. Dexamethasone. Chest CTA showing bilateral pulmonary embolism. October 27: Short of breath. Eating fair. 15 L nasal cannula. Tired. October 28: Remains on 15 L of nasal cannula. Eating about 50%. Short of breath. Tired. Trying to change his positions in bed. Including prone. October 29: Patient more short of breath and tired. Pulse oxing 87% on 15 L. Laying in bed. Eating around 50%. Late in the afternoon seen by pulmonary and patient be moved to ICU. Review of systems: Was done for constitutional, cardiovascular, GI, pulmonary. relevant finding as above Active Medications Acarbose (Acarbose 25 Mg Tab) 50 mg PO TID-W/MEALS [facility] Last Admin: 10/29/21 12:34 Dose: 50 mg Documented by: Acetaminophen (Acetaminophen Tab 325 Mg Tab) 650 mg PO Q6HR PRN PRN Reason: Mild Pain or Fever > 100.5 Last Admin: 10/29/21 15:46 Dose: 650 mg Documented by: Albuterol Sulfate (Albuterol Hfa Inhaler) 2 puff INHALATION RT-QID PRN PRN Reason: Shortness Of Breath Last Admin: 10/29/21 15:39 Dose: 2 puff Documented by: Alprazolam (Alprazolam 0.25 Mg Tab) 0.25 mg PO BID PRN PRN Reason: Anxiety Last Admin: 10/29/21 15:58 Dose: 0.25 mg Documented by: Amitriptyline HCl (Amitriptyline Hcl 50 Mg Tab) 50 mg PO HS [facility] Last Admin: 10/28/21 21:21 Dose: 50 mg Documented by: Apixaban (Apixaban 5 Mg Tab) 10 mg PO BID [facility]; Protocol Stop: 11/01/21 21:01 Last Admin: 10/29/21 08:50 Dose: 10 mg Documented by: Apixaban (Apixaban 5 Mg Tab) 5 mg PO BID [facility]; Protocol Ascorbic Acid (Ascorbic Acid 500 Mg Tab) 1,000 mg PO DAILY [facility] Last Admin: 10/29/21 08:51 Dose: 1,000 mg Documented by: Baricitinib (Baricitinib 2 Mg Tablet) 4 mg PO DAILY@1500 [facility] Stop: 11/11/21 15:01 Last Admin: 10/29/21 14:57 Dose: 4 mg Documented by: Betamethasone/Clotrimazole (Clotrimazole/Betameth 1-0.05% Cream 45 Gm Tube) 1 applic TOPICAL BID [facility]; Protocol Last Admin: 10/29/21 08:49 Dose: 1 applic Documented by: Calcium Carbonate/Glycine (Calcium Carbonate 500 Mg Chewable) 1,000 mg PO Q4HR PRN PRN Reason: Dyspepsia Carbamazepine (Carbamazepine 200 Mg Tab) 400 mg PO BID [facility] Last Admin: 10/29/21 08:51 Dose: 400 mg Documented by: Cholecalciferol (Cholecalciferol 25 Mcg (1000 Iu) Tablet) 25 mcg PO DAILY [facility] Last Admin: 10/29/21 08:51 Dose: 25 mcg Documented by: Dexamethasone Sodium Phosphate (Dexamethasone Sod Phosphate 10 Mg/Ml 1 Ml Vial) 6 mg IVP BID [facility] Last Admin: 10/29/21 08:50 Dose: 6 mg Documented by: Guaifenesin/Codeine Phosphate (Guaifenesin-Coden 100-10mg/5ml 10 Ml Cup) 10 ml PO Q6HR [facility] Last Admin: 10/29/21 12:34 Dose: 10 ml Documented by: Insulin Aspart (Insulin Aspart (Novolog) 100 Unit/Ml Vial) 0 unit SQ [facility]; Protocol Last Admin: 10/29/21 12:34 Dose: 1 unit Documented by: Insulin Detemir (Insulin Detemir (Levemir) 100 Unit/Ml Syr) 16 unit SQ [facility] Last Admin: 10/28/21 21:22 Dose: 16 unit Documented by: Lactulose (Lactulose 20 Gm/30 Ml Cup) 20 gm PO DAILY PRN PRN Reason: Constipation Metoprolol Tartrate (Metoprolol Tartrate 50 Mg Tab) 50 mg PO BID [facility] Last Admin: 10/29/21 08:50 Dose: 50 mg Documented by: Naloxone HCl (Naloxone 0.4 Mg/Ml 1 Ml Vial) 0.2 mg IV Q2M PRN PRN Reason: Opioid Reversal Ondansetron HCl (Ondansetron 4 Mg/2 Ml Vial) 4 mg IVP Q8HR PRN PRN Reason: Nausea And Vomiting Pregabalin (Pregabalin 100 Mg Cap) 200 mg PO BID [facility] Last Admin: 10/29/21 08:51 Dose: 200 mg Documented by: Sertraline HCl (Sertraline 50 Mg Tab) 50 mg PO DAILY [facility] Last Admin: 10/29/21 08:51 Dose: 50 mg Documented by: Zinc Sulfate (Zinc Sulfate 220 Mg Cap) 220 mg PO DAILY [facility] Last Admin: 10/29/21 08:50 Dose: 220 mg Documented by: Social history: Patient is on Social Security. Does not smoke or drink alcohol. Patient's daughters family lives with him. Family history: Father at the age of 40 with heart attack Physical examination: VITAL SIGNS: 98.2, 96, 20, 159/ 76, 87% on 15 L high flow GENERAL: Prone position in bed short of breath LUNGS: Respiratory rate increased,. PSYCH: Alert and oriented x3; mood and affect anxious NEUROLOGICAL: Cranial nerves grossly intact; no facial asymmetry, moving all 4 limbs Rest of the exam per nursing and pulmonary INVESTIGATIONS, reviewed in the clinical context: October 29: White count 13.1 hemoglobin 13.8 d-dimer 16.2 potassium 4.7 creatinine 0.76 October 28: D-dimer 13.4 to October 26: D-dimer 8.48 CRP 24 Chest CTA [October 26: biLateral pulmonary embolism Doppler ultrasound lower extremity: Negative for DVT October 24: White count 9.7 hemoglobin 15.3 platelets 221 d-dimer 1.93 progression 4.2 creatinine 0.71 CRP 5.5 pro-calcitonin 0.08 White count 9.9 hemoglobin 16 platelets 234 d-dimer 0.98 sodium 141 potassium 3.4 creatinine 0.81 Lactic acid 2.9 LDH 1422 CRP 7.5 EKG tracing personally reviewed by me-normal sinus rhythm. Nonspecific ST segment changes. Chest x-ray film personally reviewed by me-bilateral infiltrates Assessment and plan: -Acute severe COVID 19 pneumonitis in a patient who did not take the COVID-19 vaccine: Worsening Dexamethasone, vitamin C, vitamin D, zinc. Patient's outside the window for Remdesivir. -Acute hypoxic respiratory failure from COVID-19: Not improving Currently on 15 L of nasal cannula -Bilateral pulmonary embolism secondary to COVID-19 Eliquis -Essential hypertension Lopressor 50 mg twice a day, Cozaar 50 mg daily -Diabetes mellitus type 2, on oral hypoglycemic, uncontrolled with hyperglycemia Glucophage thousand milligrams twice a day. Follow Accu-Chek. Precose. Levemir 16 units daily at bedtime -Chronic insomnia for medical conditions Elavil 50 mg daily at bedtime -Hyperlipidemia TriCor 48 mg daily -Obstructive sleep apnea Use CPAP -Diabetic peripheral neuropathy Lyrica 200 mg twice daily -Full code Patient remains hypoxic on 15 L oxygen. move to the ICU. Continue supportive care. Follow with pulmonary. BiPAP.
[2021-10-29] MEDS: DEXMEDETOMIDINE/0.9% NACL(PMX) 400 MCG in EMPTY BAG 1 BAG IV SCH (20:10)
[2021-10-29] MEDS: AMITRIPTYLINE HCL 50 MG TAB PO SCH (20:47)
[2021-10-29] MEDS: INSULIN DETEMIR (LEVEMIR) 100 UNIT/ML SYR SQ SCH (20:48)
[2021-10-29 21:08] LABS: Glucose,Whole Blood 175 mg/dL (75-99)
[2021-10-29] MEDS ORDERED: LORazepam 2 MG/ML INJ IV PRN (22:46)
[2021-10-30] MEDS: guaiFENesin-Coden 100-10MG/5ML 10 ML CUP PO SCH ×5 (00:19→23:59)
[2021-10-30] MEDS: DEXMEDETOMIDINE/0.9% NACL(PMX) 400 MCG in EMPTY BAG 1 BAG IV SCH ×3 (01:15→08:12)
[2021-10-30 05:29] LABS: Basophils % (A) 0 %; Eosinophils # (A) 0.1 k/uL (0-0.7); Eosinophils % (A) 0 %; HCT 37.5 % (39.0-53.0); HGB 13.1 gm/dL (13.0-17.5); Lymphocytes # (A) 1.3 k/uL (1.0-4.8); Lymphocytes % (A) 10 %; MCH 32.9 pg (25.0-35.0); MCHC 34.8 g/dL (31.0-37.0); MCV 94.4 fL (80.0-100.0); Mean Platelet Volume 8.1; Monocytes # (A) 0.7 k/uL (0-1.0); Monocytes % (A) 5 %; Neutrophils # (A) 10.7 k/uL (1.3-7.7); Neutrophils % (A) 83 %; Platelet Count 224 k/uL (150-450); Poikilocytosis Slight; RBC 3.98 m/uL (4.30-5.90); RDW 15.2 % (11.5-15.5); WBC 12.9 k/uL (3.8-10.6)
[2021-10-30 05:38] LABS: ALT 32 U/L (4-49); AST 30 U/L (17-59); African American GFR (CKD) >90 (>60 ml/min/1.73 sqM); Albumin 3.1 g/dL (3.5-5.0); Alkaline Phosphatase 71 U/L (38-126); Anion Gap 10 mmol/L; Blood Urea Nitrogen 20 mg/dL (9-20); Calcium 8.5 mg/dL (8.4-10.2); Carbon Dioxide 24 mmol/L (22-30); Chloride 106 mmol/L (98-107); Glucose 210 mg/dL (74-99); Non-African American GFR(CKD) >90 (>60 ml/min/1.73 sqM); Potassium 5.6 mmol/L (3.5-5.1); Sodium 140 mmol/L (137-145); Total Bilirubin 0.8 mg/dL (0.2-1.3); Total Protein 6.4 g/dL (6.3-8.2)
[2021-10-30 07:00] LABS: Glucose,Whole Blood 170 mg/dL (75-99)
[2021-10-30] MEDS: INSULIN ASPART (NovoLOG) 100 UNIT/ML VIAL SQ SCH ×4 (07:00→20:31)
[2021-10-30] MEDS: ALBUTEROL HFA INHALER INHALATION PRN ×2 (08:23→16:43)
--- NOTE | 2021-10-30 08:30 | XR ---
EXAMINATION TYPE: XR chest 1V portable DATE OF EXAM: 10/30/2021 HISTORY: Shortness of breath. COMPARISON: 10/26/2021 TECHNIQUE: Single view of the chest is submitted. FINDINGS: Demonstrated are scattered senescent parenchymal change. Coarse reticulonodular infiltrates are seen throughout both lung malone Unchanged. The heart is stable. Hilar and mediastinal structures are within normal limits. Degenerative changes are seen of the dorsal spine. IMPRESSION: 1. Coarse reticulonodular infiltrates are seen throughout both lung malone Unchanged.
--- NOTE | 2021-10-30 08:36 | P.PN ---
Subjective Progress Note Date: 10/30/21 61-year-old male patient with past medical history of diabetes mellitus type 2 with diabetic neuropathy, hypertension, hyperlipidemia, previous history of CVA, rheumatoid arthritis, obstructive sleep apnea S/P UPPP, history of right eye melanoma with previous surgeries, BPH with previous TURP, chronic lower extremity edema, cellulitis, gout, presented to the emergency department on 10/23/2021 at 240 3 in the morning with complaints of severe shortness of breath, cough, congestion. Patient states he has had symptoms since October 09, initially was tested via rapid COVID-19 PCR test which was negative however the send out PCR test came back positive. He states over the last 2 weeks his symptoms continue to worsen, he feels weak, short of breath, complains of cough and chest congestion. No chest pain. He has not been vaccinated against COVID- 19. He does endorse fever, malaise, nausea, abdominal pain. His chest x-ray showed moderate pulmonary testicular edema. His lab work has been reviewed showing white blood cell count of 9.9, hemoglobin 16, platelet count is 234, neutrophils 8.1, lymphocyte count is 1.49, INR is 1.1, sodium is 141, potassium is 3.4, chloride is 101, CO2 is 23, BUN is 23 creatinine 0.81, plasma lactic acid was 2.9 and is currently down to 1.7, LDH was 1422, proBNP was 185, LFTs were within normal limits. Patient is currently requiring 8 L of oxygen his pulse ox is 96%, he still has a congested cough, he has been afebrile, he is short of breath with any exertion. Denies any hemoptysis or chest discomfort. Has been started on Decadron 6 mg daily, he was given IV hydration with 1 L bolus, and currently receiving 0.9 normal saline at a rate of 1:30 ML per hour, his lactic acid has improved. Patient is outside the window for Remdesivir. The patient is seen today 10/24/2021 in follow-up on the regular medical floor. He is currently sitting up in a chair at the bedside. Awake alert in no acute distress. Doing about the same today as compared to yesterday. He is on 11 L high flow nasal cannula to maintain O2 saturations in the 90s. He is dyspneic with conversation. Dyspneic with minimal exertion. Follow-up chest x-ray is unchanged. Still with bilateral interstitial and airspace opacities. No pneumothorax or large effusions. White count 9.7. Hemoglobin 15.3. D-dimer 1.93 sodium 141 potassium 4.2. Creatinine 0.71. LDH 1592. C-reactive protein 5.5. Pro-calcitonin 0.08. He is continued on Decadron, Lovenox, vitamin supplements. The patient is seen today 10/28/2021 in follow-up on the regular medical floor. He is currently sitting up in a chair at the bedside. Awake and alert in no acute distress. He is still requiring 15 L high flow nasal cannula plus an occasional nonrebreather mask. His only complaint today is that of a headache. No worsening shortness of breath, cough or congestion. Patient was found to have bilateral pulmonary emboli. Dopplers of the lower extremity were negative for DVT. He is maintained on Eliquis, Decadron, vitamin supplements. D-dimer 13.4. Blood glucose 153. The patient is seen today 10/29/2021 in follow-up on the regular medical floor. He is quite a bit more short of breath today compared to yesterday. Somewhat restless. He is now on AirVo high flow oxygen at 60 L and 90% FiO2 plus a 100% nonrebreather mask. He is febrile. He is tachycardic. Tachypneic. White cou nt 13.1. Hemoglobin 13.8. Lymphocytes 1.1. D-dimer 16.6. Sodium 140. Potassium 4.7. Creatinine 0.76. Blood sugar 147. AST 32. ALT 39. He is continued on Baricitinib, Eliquis, Decadron, vitamin supplements. Levemir and sliding scale for insulin coverage. 10/30/2021, the patient is being seen in the follow-up in the intensive care unit. Noted the patient was getting progressively more agitated, tachypneic, short of breath and hypoxic yesterday. Based on that, make recommendations for this patient to get transferred to the intensive care unit. This morning, the patient is on BiPAP at a pressure of 12/6 cm of water. Note that he was on Airvo a 60 L with an FiO2 of 90% along with 100% nonrebreather facemask. This got switched to BiPAP as of midnight as the patient was quite uncomfortable and short of breath and hypoxic. Chest x-ray still showing diffuse bilateral pulmonary infiltrates. No evidence of any pneumomediastinum. No evidence of any pneumothorax. At the same time, the patient had to be sedated and is currently on Precedex at 1 mcg/kg per minute. In terms of his COVID 19 related pneumonia, the patient is still receiving a combination of Decadron on Baricit inib per protocol. The patient is also on Eliquis regarding suspected bilateral pulmonary embolism. His most recent LDH level was 1382 and this was from 10/26/2021 and his CRP was also had a 24. This needs to be repeated. Meanwhile, his blood work from today shows a white cell count of 12.7 with hemoglobin of 15.1 and a platelet count of 20-24, respiratory distress shows some mild hyperkalemia and potassium of any severity checked with a BUN of 20 and a creatinine of 0.6. The patient remains on anticoagulation with Eliquis 5 mg by mouth twice a day. He also has a Atrovent to be used on an as-needed basis for increased anxiety and agitation. The patient is currently in the intensive care unit. High likelihood for further progression and possible intubation mechanical ventilation and this will largely depend on his clinical progress. Objective - Vital Signs Vital signs: Vital Signs Temp 98.9 F 10/29/21 20:00 Pulse 77 10/30/21 07:00 Resp 32 H 10/30/21 07:00 BP 127/88 10/30/21 07:00 Pulse Ox 84 L 10/30/21 08:10 Intake & Output 10/29/21 10/30/21 10/30/21 18:59 06:59 18:59 Intake Total 368.698 69.061 Output Total 150 Balance 218.698 69.061 Weight 81.647 kg Intake: IV 240 0.9 NS KVO 240 Intake, IV Titration 128.698 69.061 Amount Dexmedetomidine/0.9% NaCl 128.698 69.061 (Pmx) 400 mcg In Empty Bag 1 bag @ 0.2 MCG/KG/HR 4.082 mls/hr IV .Q24H [facility] Rx#:[id number] Output: Urine 150 Other: Voiding Method Urinal # Voids 0 0 - Exam GENERAL EXAM: Alert, restless 61-year-old male patient, currently in bed, on BIPAP , anxious and labored breathing HEAD: Normocephalic. EYES: Normal reaction of pupils, equal size. NOSE: Clear with pink turbinates. THROAT: No erythema or exudates. NECK: No masses, no JVD. CHEST: No chest wall deformity. LUNGS: Equal air entry with coarse crackles in the posterior bases. CVS: S1 and S2 normal with no audible murmur, regular rhythm. ABDOMEN: No hepatosplenomegaly, normal bowel sounds, no guarding or rigidity. SPINE: No scoliosis or deformity SKIN: No rashes CENTRAL NERVOUS SYSTEM: No focal deficits, tone is normal in all 4 extremities. EXTREMITIES: There is no peripheral edema. No clubbing, no cyanosis. Peripheral pulses are intact. - Labs CBC & Chem 7: 10/30/21 04:23 10/30/21 04:23 Labs: Abnormal Lab Results - Last 24 Hours (Table) 10/29/21 10/29/21 10/29/21 Range/Units 06:45 07:51 07:51 WBC 13.1 H (3.8-10.6) k/uL RBC 4.28 L (4.30-5.90) m/uL Hct (39.0-53.0) % Neutrophils # 10.8 H (1.3-7.7) k/uL D-Dimer 16.26 H (<0.60) mg/L FEU Potassium (3.5-5.1) mmol/L Glucose (74-99) mg/dL POC Glucose (mg/dL) 164 H (75-99) mg/dL Albumin (3.5-5.0) g/dL 10/29/21 10/29/21 10/29/21 Range/Units 07:51 11:14 16:49 WBC (3.8-10.6) k/uL RBC (4.30-5.90) m/uL Hct (39.0-53.0) % Neutrophils # (1.3-7.7) k/uL D-Dimer (<0.60) mg/L FEU Potassium (3.5-5.1) mmol/L Glucose 172 H (74-99) mg/dL POC Glucose (mg/dL) 147 H 188 H (75-99) mg/dL Albumin 3.2 L (3.5-5.0) g/dL 10/29/21 10/30/21 10/30/21 Range/Units 21:07 04:23 04:23 WBC 12.9 H (3.8-10.6) k/uL RBC 3.98 L (4.30-5.90) m/uL Hct 37.5 L (39.0-53.0) % Neutrophils # 10.7 H (1.3-7.7) k/uL D-Dimer (<0.60) mg/L FEU Potassium 5.6 H (3.5-5.1) mmol/L Glucose 210 H (74-99) mg/dL POC Glucose (mg/dL) 175 H (75-99) mg/dL Albumin 3.1 L (3.5-5.0) g/dL 10/30/21 Range/Units 06:58 WBC (3.8-10.6) k/uL RBC (4.30-5.90) m/uL Hct (39.0-53.0) % Neutrophils # (1.3-7.7) k/uL D-Dimer (<0.60) mg/L FEU Potassium (3.5-5.1) mmol/L Glucose (74-99) mg/dL POC Glucose (mg/dL) 170 H (75-99) mg/dL Albumin (3.5-5.0) g/dL Assessment and Plan Plan: 1 Acute hypoxic respiratory failure related to acute COVID-19 related pneumonia, patient presented to the emergency department on 10/23/2021 with 2 week history of symptoms, patient is outside the window for Remdesivir, he is a non-vaccinated adult. The patient was transferred to the intensive care unit yesterday. The patient is currently on a BiPAP at a pressure of 12/6 cm of water with an FiO2 100%. He is still on his respiratory rate is in the mid 30s to low 40s. He has hypoxic and his current pulse ox is around 87%. He is currently being treated with a combination of Decadron and Baricitinib per protocol. He is also on Eliquis for pulmonary embolism bilateral based on a CAT scan of the chest that was done on 10/26/2021. High likelihood for requiring intubation mechanical ventilation due to progressive worsening in his hypoxemia and further respiratory decompensation. Currently is in the intensive care unit. He is also on Precedex 2 Bilateral pulmonary emboli on computed tomography scan 10/26/2021. Continued on Eliquis. 3 Diabetes mellitus type 2 with diabetic neuropathy 4 Hypertension 5 Hyperlipidemia 6 Obstructive sleep apnea with previous history of UPPP 7 History of right eye melanoma with multiple surgeries 8 Previous history of CVA 9 Rheumatoid arthritis 10 History of gout 11 Previous history of MRSA infection in the wound on his back 12 Mild lactic acidosis, improved with IV hydration 13 Elevated inflammatory markers related to acute COVID-19 pneumonia 14 BPH BiPAP with previous history of TURP Plan: Continue BIPAP now and ultimately I may make the decision to intubate this patient within next few hours depending on his condition. As mentioned, high likelihood for requiring intubation mechanical ventilation as the patient's condition decompensated significantly along with difficulties in tolerating the BiPAP mask and ongoing hypoxemia and shortness of breath and respiratory distress. Continue Decadron and Baricitinib per protocol Continue anticoagulation with Eliquis Continue Precedex for agitation and secondary with a BiPAP machine Chest x-ray was reviewed Repeat inflammatory markers Condition is critical and high lactate for intubation mechanical ventilation based on his progress. Critically care evaluation that was on a more than 30 minutes. Time with Patient: Greater than 30
[2021-10-30] MEDS ORDERED: propofoL 100 ML IV ONE (09:04)
[2021-10-30] MEDS ORDERED: CISATRACURIUM 2 MG/ML 5 ML VIAL IV ONE ×2 (09:12→09:38)
[2021-10-30] MEDS: fentaNYL (PF). 1,000 MCG in SODIUM CHLORIDE 0.9% 80 ML IV SCH ×2 (10:06→16:42)
[2021-10-30] MEDS: CISATRACURIUM 200 MG in SODIUM CHLORIDE 0.9% 180 ML IV SCH ×2 (10:07→16:43)
--- NOTE | 2021-10-30 10:09 | XR ---
EXAMINATION TYPE: XR chest 1V portable DATE OF EXAM: 10/30/2021 COMPARISON: 10/30/2021 HISTORY: SOB, Follow Up FINDINGS: Interval placement of endotracheal tube is appropriately position. NG tube is seen coursing into the stomach. Left subclavian central venous line. No evidence for pneumothorax. Bilateral airspace and interstitial infiltrates persist without significant change. Stable appearance of the cardio-mediastinal structures at this time. Pleural effusion unchanged. IMPRESSION: 1. Bilateral airspace and interstitial infiltrates persist without significant change.
--- NOTE | 2021-10-30 10:54 | P.PCN ---
Date of Procedure: 10/30/21 Operative Findings: Preoperative Diagnosis: COVID 19 pneumonia Postoperative Diagnosis: COVID 19 pneumonia Procedure(s) Performed: Intubation, insertion of a arterial line, insertion of central line Anesthesia: GUILHERME Surgeon: Shirley Teague Estimated Blood Loss (ml): 0 Pathology: other Condition: critical Disposition: ICU Operative Findings: Intubation Indication: Respiratory compromise. A time-out was completed verifying correct patient, procedure, site, positioning, and implant(s) or special equipment if applicable. The scope was used to complete this intubation process. The patient was positioned appropriately and a #8 endotracheal tube was placed under direct laryngoscopy. The tube was anchored at 22 cm at the teeth. Correct placement was confirmed by presence of bilateral breath sounds without air sounds in the abdomen on auscultation. An end-tidal CO2 monitor was also used to confirm tracheal placement of the ET tube. A chest x-ray was ordered to assess for pneumothorax and verify endotracheal tube placement. The patient tolerated the procedure well and there were no complications. Arterial Line Indication: Hemodynamic monitoring. A time-out was completed verifying correct patient, procedure, site, positioning, and implant(s) or special equipment if applicable. Allens test was performed to ensure adequate perfusion. The patients right wrist was prepped and draped in sterile fashion. 1% Lidocaine was used to anesthetize the area. An 18G Arrow arterial line was introduced into the radial artery. The catheter was threaded over the guide wire and the needle was removed with appropriate pulsatile blood return. Blood loss was minimal. The catheter was then sutured in place to the skin and a sterile dressing applied. Perfusion to the extremity distal to the point of catheter insertion was checked and found to be adequate. The patient tolerated the procedure well and there were no complications. Central Line Indication: Hemodynamic monitoring/Intravenous access. A time-out was completed verifying correct patient, procedure, site, positioning, and implant(s) or special equipment if applicable. The patient was placed in a dependent position appropriate for central line placement based on the vein to be cannulated. The patient s left shoulder was prepped and draped in sterile fashion. 1% Lidocaine was used to anesthetize the surrounding skin area. A triple lumen 9F Cordis catheter was introduced into the subclavian vein using Seldinger technique. The catheter was threaded smoothly over the guide wire and appropriate blood return was obtained. Each lumen of the catheter was evacuated of air and flushed with sterile saline. The catheter was then sutured in place to the skin and a sterile dressing applied. Perfusion to the extremity distal to the point of catheter insertion was checked and found to be adequate. The patient tolerated the procedure well and there were no complications.
[2021-10-30 11:03] LABS: ABG Base Excess 1.8 mmol/L; ABG HCO3 27 mmol/L (21-25); ABG Oxygen Saturation 97.8 % (94-97); ABG PCO2 50 mmHg (35-45); ABG PH 7.35 (7.35-7.45); ABG PO2 114 mmHg (83-108); ABG TCO2 29 mmol/L (19-24)
[2021-10-30] MEDS: ZINC SULFATE 220 MG CAP PO SCH ×2 (11:19→12:25)
[2021-10-30] MEDS: ARTIFICIAL TEARS-HYPROMELLOSE DROPS 15 ML BTL BOTH EYES SCH ×3 (11:20→20:06)
[2021-10-30 11:27] LABS: Glucose,Whole Blood 149 mg/dL (75-99)
[2021-10-30] MEDS: NOREPINEPHRINE 8 MG in SODIUM CHLORIDE 0.9% 250 ML IV SCH (11:34)
[2021-10-30] MEDS: ACARBOSE 25 MG TAB PO SCH ×2 (12:20→17:32)
[2021-10-30] MEDS: METOPROLOL TARTRATE 50 MG TAB PO SCH ×2 (12:20→20:05)
[2021-10-30] MEDS: ASCORBIC ACID 500 MG TAB PO SCH (12:25)
[2021-10-30] MEDS: CHOLECALCIFEROL 25 MCG (1000 IU) TABLET PO SCH (12:25)
[2021-10-30] MEDS: PREGABALIN 100 MG CAP PO SCH ×2 (12:25→20:05)
[2021-10-30] MEDS: DEXAMETHASONE SOD PHOSPHATE 10 MG/ML 1 ML VIAL IVP SCH ×2 (12:25→20:06)
[2021-10-30] MEDS: APIXABAN 5 MG TAB PO SCH ×2 (12:26→20:05)
[2021-10-30] MEDS: carBAMazepine 200 MG TAB PO SCH ×2 (12:26→20:08)
[2021-10-30] MEDS: CLOTRIMAZOLE/BETAMETH 1-0.05% CREAM 45 GM TUBE TOPICAL SCH ×2 (12:27→20:08)
[2021-10-30] MEDS: SERTRALINE 50 MG TAB PO SCH (12:28)
[2021-10-30] MEDS: BARICITINIB 2 MG TABLET PO SCH (15:24)
--- NOTE | 2021-10-30 16:29 | P.PN ---
Progress Note - Text Progress Note Date: 10/30/21 Chief Complaint: Short of breath This is a pleasant 61-year-old patient, chronic stable medical conditions include diabetes, hypertension, hyperlipidemia, osteoarthritis, peripheral neuropathy, chronic gout. Patient presents with increasing shortness of breath. Cough. Clear sputum. Fever and chills. Tired rundown decrease appetite and diarrhea about 2 times a day. Patient tested positive for COVID-19 on October 09. His initial rapid COVID-19 was negative. In the send out came back positive. Patient did not take the vaccine against COVID-19. He is on 8 L of oxygen this morning. He is outside the window for Remdesivir. Admitted with COVID 19 pneumonitis, acute hypoxic respiratory failure. Started on Decadron. IV fluids. October 24: Feeling a bit better. Short of breath. 92% on 11 L. Did eat some. Sitting at the edge of the bed. A bit tired October 25: Short of breath. Cough. Oral intake fair. On 11 L of nasal cannula. Did sit up in a chair. October 26: Short of breath. Oral intake fair. Cough. 11 L nasal cannula. Dexamethasone. Chest CTA showing bilateral pulmonary embolism. October 27: Short of breath. Eating fair. 15 L nasal cannula. Tired. October 28: Remains on 15 L of nasal cannula. Eating about 50%. Short of breath. Tired. Trying to change his positions in bed. Including prone. October 29: Patient more short of breath and tired. Pulse oxing 87% on 15 L. Laying in bed. Eating around 50%. Late in the afternoon seen by pulmonary and patient be moved to ICU. October 30: Patient moved to ICU yesterday. Because of more respiratory compromise. Intubated earlier today. Drips include Diprivan, fentanyl, Nimbex, Levophed. Sinus rhythm. FiO2 19 a PEEP of 18. Review of systems: Intubated Active Medications Acarbose (Acarbose 25 Mg Tab) 50 mg PO TID-W/MEALS [facility] Last Admin: 10/30/21 12:20 Dose: Not Given Documented by: Acetaminophen (Acetaminophen Tab 325 Mg Tab) 650 mg PO Q6HR PRN PRN Reason: Mild Pain or Fever > 100.5 Last Admin: 10/29/21 15:46 Dose: 650 mg Documented by: Albuterol Sulfate (Albuterol Hfa Inhaler) 2 puff INHALATION RT-QID PRN PRN Reason: Shortness Of Breath Last Admin: 10/30/21 08:23 Dose: 2 puff Documented by: Alprazolam (Alprazolam 0.25 Mg Tab) 0.25 mg PO BID PRN PRN Reason: Anxiety Last Admin: 10/29/21 15:58 Dose: 0.25 mg Documented by: Amitriptyline HCl (Amitriptyline Hcl 50 Mg Tab) 50 mg PO HS [facility] Last Admin: 10/29/21 20:47 Dose: 50 mg Documented by: Apixaban (Apixaban 5 Mg Tab) 10 mg PO BID [facility]; Protocol Stop: 11/01/21 21:01 Last Admin: 10/30/21 12:26 Dose: 10 mg Documented by: Apixaban (Apixaban 5 Mg Tab) 5 mg PO BID [facility]; Protocol Artificial Tears (Artificial Tears-Hypromellose Drops 15 Ml Btl) 2 drops BOTH EYES Q4HR [facility] Last Admin: 10/30/21 15:23 Dose: 2 drops Documented by: Ascorbic Acid (Ascorbic Acid 500 Mg Tab) 1,000 mg PO DAILY [facility] Last Admin: 10/30/21 12:25 Dose: 1,000 mg Documented by: Baricitinib (Baricitinib 2 Mg Tablet) 4 mg PO DAILY@1500 [facility] Stop: 11/11/21 15:01 Last Admin: 10/30/21 15:24 Dose: 4 mg Documented by: Betamethasone/Clotrimazole (Clotrimazole/Betameth 1-0.05% Cream 45 Gm Tube) 1 applic TOPICAL BID [facility]; Protocol Last Admin: 10/30/21 12:27 Dose: Not Given Documented by: Calcium Carbonate/Glycine (Calcium Carbonate 500 Mg Chewable) 1,000 mg PO Q4HR PRN PRN Reason: Dyspepsia Carbamazepine (Carbamazepine 200 Mg Tab) 400 mg PO BID [facility] Last Admin: 10/30/21 12:26 Dose: 400 mg Documented by: Chlorhexidine Gluconate (Chlorhexidine Gluconate 15 Ml Cup) 15 ml MUCOUS MEM BID [facility] Cholecalciferol (Cholecalciferol 25 Mcg (1000 Iu) Tablet) 25 mcg PO DAILY [facility] Last Admin: 10/30/21 12:25 Dose: 25 mcg Documented by: Dexamethasone Sodium Phosphate (Dexamethasone Sod Phosphate 10 Mg/Ml 1 Ml Vial) 6 mg IVP BID [facility] Last Admin: 10/30/21 12:25 Dose: 6 mg Documented by: Guaifenesin/Codeine Phosphate (Guaifenesin-Coden 100-10mg/5ml 10 Ml Cup) 10 ml PO Q6HR [facility] Last Admin: 10/30/21 11:19 Dose: Not Given Documented by: Dexmedetomidine HCl 400 mcg/ (IV Solution) 100 mls @ 4.082 mls/hr IV .Q24H [facility]; Protocol Last Titration: 10/30/21 12:21 Dose: 0 mcg/kg/hr, 0 mls/hr Documented by: Propofol 1,000 mg/ IV Solution 100 mls @ 0 mls/hr IV .Q0M [facility]; Protocol Last Admin: 10/30/21 11:33 Dose: 50 mcg/kg/min, 34.8 mls/hr Documented by: Cisatracurium Besylate 200 mg/ (Sodium Chloride) 200 mls @ 4.899 mls/hr IV .Q24H [facility]; Protocol Last Titration: 10/30/21 12:20 Dose: 1.5 mcg/kg/min, 7.348 mls/hr Documented by: Fentanyl Citrate 1,000 mcg/ (Sodium Chloride) 100 mls @ 4.082 mls/hr IV .Q24H [facility]; Protocol Last Titration: 10/30/21 12:20 Dose: 1 mcg/kg/hr, 8.165 mls/hr Documented by: Norepinephrine Bitartrate 8 mg (/ Sodium Chloride) 258 mls @ 7.899 mls/hr IV .Q24H [facility]; Protocol Last Titration: 10/30/21 14:17 Dose: 0.03 mcg/kg/min, 4.74 mls/hr Documented by: Insulin Aspart (Insulin Aspart (Novolog) 100 Unit/Ml Vial) 0 unit SQ ACHS [facility]; Protocol Last Admin: 10/30/21 11:33 Dose: 1 unit Documented by: Insulin Detemir (Insulin Detemir (Levemir) 100 Unit/Ml Syr) 16 unit SQ HS [facility] Last Admin: 10/29/21 20:48 Dose: 16 unit Documented by: Lactulose (Lactulose 20 Gm/30 Ml Cup) 20 gm PO DAILY PRN PRN Reason: Constipation Lorazepam (Lorazepam 2 Mg/Ml Inj) 2 mg IV Q2HR PRN PRN Reason: Anxiety Last Admin: 10/29/21 22:56 Dose: 2 mg Documented by: Metoprolol Tartrate (Metoprolol Tartrate 50 Mg Tab) 50 mg PO BID [facility] Last Admin: 10/30/21 12:20 Dose: Not Given Documented by: Naloxone HCl (Naloxone 0.4 Mg/Ml 1 Ml Vial) 0.2 mg IV Q2M PRN PRN Reason: Opioid Reversal Ondansetron HCl (Ondansetron 4 Mg/2 Ml Vial) 4 mg IVP Q8HR PRN PRN Reason: Nausea And Vomiting Pregabalin (Pregabalin 100 Mg Cap) 200 mg PO BID [facility] Last Admin: 10/30/21 12:25 Dose: 200 mg Documented by: Sertraline HCl (Sertraline 50 Mg Tab) 50 mg PO DAILY [facility] Last Admin: 10/30/21 12:28 Dose: Not Given Documented by: Zinc Sulfate (Zinc Sulfate 220 Mg Cap) 220 mg PO DAILY [facility] Last Admin: 10/30/21 12:25 Dose: 220 mg Documented by: Social history: Patient is on Social Security. Does not smoke or drink alcohol. Patient's daughters family lives with him. Family history: Father at the age of 40 with heart attack Physical examination: VITAL SIGNS: 99.8, 85, 32, 94/58, 97% on the vent GENERAL: Laying in bed, intubated LUNGS: Respiratory rate increased,. PSYCH: Able to assess Rest of the exam per nursing and pulmonary INVESTIGATIONS, reviewed in the clinical context: October 30: White count 12.9 hemoglobin 13.1 potassium 5.6 creatinine 0.69 October 29: White count 13.1 hemoglobin 13.8 d-dimer 16.2 potassium 4.7 creatinine 0.76 October 28: D-dimer 13.4 to October 26: D-dimer 8.48 CRP 24 Chest CTA [October 26: biLateral pulmonary embolism Doppler ultrasound lower extremity: Negative for DVT October 24: White count 9.7 hemoglobin 15.3 platelets 221 d-dimer 1.93 progression 4.2 creatinine 0.71 CRP 5.5 pro-calcitonin 0.08 White count 9.9 hemoglobin 16 platelets 234 d-dimer 0.98 sodium 141 potassium 3.4 creatinine 0.81 Lactic acid 2.9 LDH 1422 CRP 7.5 EKG tracing personally reviewed by me-normal sinus rhythm. Nonspecific ST segment changes. Chest x-ray film personally reviewed by me-bilateral infiltrates Assessment and plan: -Acute severe COVID 19 pneumonitis in a patient who did not take the COVID-19 vaccine: Worsening Dexamethasone, vitamin C, vitamin D, zinc. Patient's outside the window for Remdesivir. -Acute hypoxic respiratory failure from COVID-19: Worsening intubated October 30. FiO2 19 and a PEEP of 18. -Bilateral pulmonary embolism secondary to COVID-19 Eliquis -Essential hypertension Lopressor 50 mg twice a day, Cozaar 50 mg daily -Diabetes mellitus type 2, on oral hypoglycemic, uncontrolled with hyperglycemia Glucophage thousand milligrams twice a day. Follow Accu-Chek. Precose. Levemir 16 units daily at bedtime -Chronic insomnia for medical conditions Elavil 50 mg daily at bedtime -Hyperlipidemia TriCor 48 mg daily -Obstructive sleep apnea Use CPAP -Diabetic peripheral neuropathy Lyrica 200 mg twice daily -Full code Intubated. FiO2 19 and a PEEP of 18. Drips include to prevent fentanyl Nimbex levo fed. Prognosis guarded. Follow-up in [facility].
[2021-10-30 18:04] LABS: Glucose,Whole Blood 155 mg/dL (75-99)
[2021-10-30] MEDS: CHLORHEXIDINE GLUCONATE 15 ML CUP MUCOUS MEM SCH (20:05)
[2021-10-30] MEDS: AMITRIPTYLINE HCL 50 MG TAB PO SCH (20:08)
[2021-10-30] MEDS: INSULIN DETEMIR (LEVEMIR) 100 UNIT/ML SYR SQ SCH (20:08)
[2021-10-30 20:30] LABS: Glucose,Whole Blood 173 mg/dL (75-99)
[2021-10-31] MEDS: fentaNYL (PF). 1,000 MCG in SODIUM CHLORIDE 0.9% 80 ML IV SCH ×3 (01:04→17:08)
[2021-10-31] MEDS: CISATRACURIUM 200 MG in SODIUM CHLORIDE 0.9% 180 ML IV SCH ×2 (03:37→18:12)
[2021-10-31] MEDS: ARTIFICIAL TEARS-HYPROMELLOSE DROPS 15 ML BTL BOTH EYES SCH ×6 (04:29→20:41)
[2021-10-31 05:15] LABS: Basophils % (A) 0 %; Eosinophils # (A) 0.1 k/uL (0-0.7); Eosinophils % (A) 1 %; HCT 36.7 % (39.0-53.0); HGB 12.2 gm/dL (13.0-17.5); Lymphocytes % (A) 9 %; MCH 31.5 pg (25.0-35.0); MCHC 33.4 g/dL (31.0-37.0); MCV 94.5 fL (80.0-100.0); Mean Platelet Volume 7.9; Monocytes # (A) 0.5 k/uL (0-1.0); Monocytes % (A) 4 %; Neutrophils # (A) 10.3 k/uL (1.3-7.7); Neutrophils % (A) 85 %; Platelet Count 240 k/uL (150-450); Poikilocytosis Slight; RBC 3.88 m/uL (4.30-5.90); RDW 14.8 % (11.5-15.5); WBC 12.1 k/uL (3.8-10.6)
[2021-10-31 05:32] LABS: ALT 28 U/L (4-49); AST 31 U/L (17-59); African American GFR (CKD) >90 (>60 ml/min/1.73 sqM); Albumin 2.9 g/dL (3.5-5.0); Alkaline Phosphatase 75 U/L (38-126); Anion Gap 9 mmol/L; Blood Urea Nitrogen 20 mg/dL (9-20); Calcium 8.1 mg/dL (8.4-10.2); Carbon Dioxide 22 mmol/L (22-30); Chloride 108 mmol/L (98-107); Glucose 189 mg/dL (74-99); Non-African American GFR(CKD) >90 (>60 ml/min/1.73 sqM); Sodium 139 mmol/L (137-145); Total Bilirubin 0.6 mg/dL (0.2-1.3); Total Protein 5.9 g/dL (6.3-8.2)
[2021-10-31 05:34] LABS: Potassium 4.8 mmol/L (3.5-5.1)
[2021-10-31 05:48] LABS: C Reactive Protein 20.8 mg/dL (<1.0)
[2021-10-31 05:58] LABS: ABG Base Excess 0.4 mmol/L; ABG HCO3 26 mmol/L (21-25); ABG Oxygen Saturation 98.9 % (94-97); ABG PCO2 43 mmHg (35-45); ABG PH 7.38 (7.35-7.45); ABG PO2 130 mmHg (83-108); ABG TCO2 27 mmol/L (19-24)
[2021-10-31] MEDS: INSULIN ASPART (NovoLOG) 100 UNIT/ML VIAL SQ SCH ×4 (05:59→21:06)
[2021-10-31] MEDS: ACARBOSE 25 MG TAB PO SCH ×3 (05:59→17:08)
[2021-10-31] MEDS: guaiFENesin-Coden 100-10MG/5ML 10 ML CUP PO SCH ×3 (05:59→18:10)
[2021-10-31 06:03] LABS: Allen Test Performed? no
--- NOTE | 2021-10-31 06:53 | XR ---
EXAMINATION TYPE: XR chest 1V portable DATE OF EXAM: 10/31/2021 5:40 AM COMPARISON:Chest radiograph from one day prior. CLINICAL INDICATION:Male, 61 years old with history of Tube placement; TECHNIQUE: Frontal view of the chest. FINDINGS: Lungs/Pleura: Similar multifocal airspace opacities. No evidence of pneumothorax or pleural effusion. Pulmonary vascularity: Unremarkable. Heart/mediastinum: Cardiomediastinal silhouette is unremarkable. Musculoskeletal: No acute osseous pathology. Other findings: Right neck surgical clips are present. Lines/Tubes: Endotracheal tube with distal tip 6.5 cm above the dennis Nasogastric tube with its distal tip and side-port projecting under the diaphragm. Left-sided PICC with distal tip at the superior vena cava/brachiocephalic confluence. IMPRESSION: 1. Similar multifocal pneumonia. 2. Stable support lines and tubes.
[2021-10-31] MEDS: APIXABAN 5 MG TAB PO SCH ×2 (08:05→20:40)
[2021-10-31] MEDS: ZINC SULFATE 220 MG CAP PO SCH (08:05)
[2021-10-31] MEDS: ASCORBIC ACID 500 MG TAB PO SCH (08:05)
[2021-10-31] MEDS: PREGABALIN 100 MG CAP PO SCH ×2 (08:06→20:39)
[2021-10-31] MEDS: carBAMazepine 200 MG TAB PO SCH ×2 (08:06→20:39)
[2021-10-31] MEDS: CHOLECALCIFEROL 25 MCG (1000 IU) TABLET PO SCH (08:06)
[2021-10-31] MEDS: METOPROLOL TARTRATE 50 MG TAB PO SCH ×2 (08:06→20:41)
[2021-10-31] MEDS: CHLORHEXIDINE GLUCONATE 15 ML CUP MUCOUS MEM SCH ×2 (08:06→20:40)
[2021-10-31] MEDS: DEXAMETHASONE SOD PHOSPHATE 10 MG/ML 1 ML VIAL IVP SCH ×2 (08:07→20:40)
[2021-10-31] MEDS: SERTRALINE 50 MG TAB PO SCH (08:08)
--- NOTE | 2021-10-31 08:25 | P.PN ---
Subjective Progress Note Date: 10/31/21 61-year-old male patient with past medical history of diabetes mellitus type 2 with diabetic neuropathy, hypertension, hyperlipidemia, previous history of CVA, rheumatoid arthritis, obstructive sleep apnea S/P UPPP, history of right eye melanoma with previous surgeries, BPH with previous TURP, chronic lower extremity edema, cellulitis, gout, presented to the emergency department on 10/23/2021 at 240 3 in the morning with complaints of severe shortness of breath, cough, congestion. Patient states he has had symptoms since October 09, initially was tested via rapid COVID-19 PCR test which was negative however the send out PCR test came back positive. He states over the last 2 weeks his symptoms continue to worsen, he feels weak, short of breath, complains of cough and chest congestion. No chest pain. He has not been vaccinated against COVID- 19. He does endorse fever, malaise, nausea, abdominal pain. His chest x-ray showed moderate pulmonary testicular edema. His lab work has been reviewed showing white blood cell count of 9.9, hemoglobin 16, platelet count is 234, neutrophils 8.1, lymphocyte count is 1.49, INR is 1.1, sodium is 141, potassium is 3.4, chloride is 101, CO2 is 23, BUN is 23 creatinine 0.81, plasma lactic acid was 2.9 and is currently down to 1.7, LDH was 1422, proBNP was 185, LFTs were within normal limits. Patient is currently requiring 8 L of oxygen his pulse ox is 96%, he still has a congested cough, he has been afebrile, he is short of breath with any exertion. Denies any hemoptysis or chest discomfort. Has been started on Decadron 6 mg daily, he was given IV hydration with 1 L bolus, and currently receiving 0.9 normal saline at a rate of 1:30 ML per hour, his lactic acid has improved. Patient is outside the window for Remdesivir. The patient is seen today 10/24/2021 in follow-up on the regular medical floor. He is currently sitting up in a chair at the bedside. Awake alert in no acute distress. Doing about the same today as compared to yesterday. He is on 11 L high flow nasal cannula to maintain O2 saturations in the 90s. He is dyspneic with conversation. Dyspneic with minimal exertion. Follow-up chest x-ray is unchanged. Still with bilateral interstitial and airspace opacities. No pneumothorax or large effusions. White count 9.7. Hemoglobin 15.3. D-dimer 1.93 sodium 141 potassium 4.2. Creatinine 0.71. LDH 1592. C-reactive protein 5.5. Pro-calcitonin 0.08. He is continued on Decadron, Lovenox, vitamin supplements. The patient is seen today 10/28/2021 in follow-up on the regular medical floor. He is currently sitting up in a chair at the bedside. Awake and alert in no acute distress. He is still requiring 15 L high flow nasal cannula plus an occasional nonrebreather mask. His only complaint today is that of a headache. No worsening shortness of breath, cough or congestion. Patient was found to have bilateral pulmonary emboli. Dopplers of the lower extremity were negative for DVT. He is maintained on Eliquis, Decadron, vitamin supplements. D-dimer 13.4. Blood glucose 153. The patient is seen today 10/29/2021 in follow-up on the regular medical floor. He is quite a bit more short of breath today compared to yesterday. Somewhat restless. He is now on AirVo high flow oxygen at 60 L and 90% FiO2 plus a 100% nonrebreather mask. He is febrile. He is tachycardic. Tachypneic. White cou nt 13.1. Hemoglobin 13.8. Lymphocytes 1.1. D-dimer 16.6. Sodium 140. Potassium 4.7. Creatinine 0.76. Blood sugar 147. AST 32. ALT 39. He is continued on Baricitinib, Eliquis, Decadron, vitamin supplements. Levemir and sliding scale for insulin coverage. 10/30/2021, the patient is being seen in the follow-up in the intensive care unit. Noted the patient was getting progressively more agitated, tachypneic, short of breath and hypoxic yesterday. Based on that, make recommendations for this patient to get transferred to the intensive care unit. This morning, the patient is on BiPAP at a pressure of 12/6 cm of water. Note that he was on Airvo a 60 L with an FiO2 of 90% along with 100% nonrebreather facemask. This got switched to BiPAP as of midnight as the patient was quite uncomfortable and short of breath and hypoxic. Chest x-ray still showing diffuse bilateral pulmonary infiltrates. No evidence of any pneumomediastinum. No evidence of any pneumothorax. At the same time, the patient had to be sedated and is currently on Precedex at 1 mcg/kg per minute. In terms of his COVID 19 related pneumonia, the patient is still receiving a combination of Decadron on Baricit inib per protocol. The patient is also on Eliquis regarding suspected bilateral pulmonary embolism. His most recent LDH level was 1382 and this was from 10/26/2021 and his CRP was also had a 24. This needs to be repeated. Meanwhile, his blood work from today shows a white cell count of 12.7 with hemoglobin of 15.1 and a platelet count of 20-24, respiratory distress shows some mild hyperkalemia and potassium of any severity checked with a BUN of 20 and a creatinine of 0.6. The patient remains on anticoagulation with Eliquis 5 mg by mouth twice a day. He also has a Atrovent to be used on an as-needed basis for increased anxiety and agitation. The patient is currently in the intensive care unit. High likelihood for further progression and possible intubation mechanical ventilation and this will largely depend on his clinical progress. 10/31/2021, the patient is intubated on a mechanical ventilator. Events from yesterday were noted and the patient became progressively more hypoxic and at that point the patient failed BiPAP and the patient had to be intubated and placed on mechanical ventilator. This morning, the patient is sedated and the patient is currently on a combination of probable running at 40 mg/kg per minute and the patient is also on fentanyl running at 1 geno per kilogram per hour. The patient is paralyzed with Nimbex running at 2 mcg/kg per minute. The patient is maintaining good synchrony with the mechanical ventilator. Meanwhile, the patient is currently on pressure control mode of mechanical ventilation. The pressure control is at 23 centimeters of water with a PEEP of 18 and a inspiratory time of 1 second, FiO2 of 70% and the rate of 32. The blood gases from today shows a pH of 7.38 with a pCO2 of 43 and pO2 of 130. This was on FiO2 of 80%. Based on that, the father was dropped down to 70% and her saturations around 90%. I think is more room for weaning on the FiO2. Meanwhile, the chest x-ray that was done today was reviewed. ET tube remains high in the trachea and the 31st and by around 2 cm. Respiratory services will be informed. No evidence of any pneumothorax. There is diffuse bilateral pulmonary infiltrates consistent with COVID 19 related pneumonia. Meanwhile, terms of his COVID 19 infection, the patient's inflammatory markers show a CRP of 20.8, his LDH level is still pending from today and his last level was at 1 382. His current d-dimer is at 16.2. The patient remains on Decadron 6 mg IV every 12 hours. The patient remains on Baricitinib per protocol. The patient is also on anticoagulation and is receiving Eliquis 5 mg by mouth twice a day. IV fluids are running at the rate of 30 mL an hour. No signs of any fluid overload. Urine output is in order of 30-50 mL an hour and there is no signs of fluid overload at this point in time. The patient will be started on enteral feeding for nutritional support today. He is on Levemir insulin 16 units at bedtime in addition to NovoLog, sliding scale coverage. Objective - Vital Signs Vital signs: Vital Signs Temp 99 F 10/31/21 00:00 Pulse 69 10/31/21 07:45 Resp 32 H 10/31/21 07:45 BP 123/84 10/31/21 07:45 Pulse Ox 98 10/31/21 07:45 Intake & Output 10/30/21 10/31/21 10/31/21 18:59 06:59 18:59 Intake Total 583.068 588.407 112.22 Output Total 670 565 45 Balance -86.932 23.407 67.22 Weight 117 kg Intake: IV 220 240 20 0.9 NS KVO 220 240 20 Intake, IV Titration 363.068 348.407 92.22 Amount Cisatracurium 200 mg In 43.068 80.093 Sodium Chloride 0.9% 180 ml @ 1 MCG/KG/MIN 4.899 mls/hr IV .Q24H [facility] Rx#: [id number] Dexmedetomidine/0.9% NaCl 153.771 (Pmx) 400 mcg In Empty Bag 1 bag @ 0.2 MCG/KG/HR 4.082 mls/hr IV .Q24H [facility] Rx#:[id number] Norepinephrine 8 mg In 21.459 Sodium Chloride 0.9% 250 ml @ 0.05 MCG/KG/MIN 7. 899 mls/hr IV .Q24H [facility] Rx#:[id number] fentaNYL (PF). 1,000 mcg 44.770 68.314 In Sodium Chloride 0.9% 80 ml @ 0.5 MCG/KG/HR 4. 082 mls/hr IV .Q24H [facility] Rx#:[id number] propofoL 1,000 mg In 100 200 92.22 Empty Bag 1 bag @ Titrate IV .Q0M [facility] Rx#: [id number] Output: Urine 670 565 45 Stool 0 Other: Voiding Method Indwelling Catheter Indwelling Catheter # Voids 0 ABP, PAP, CO, CI - Last Documented Arterial Blood Pressure 121/68 - Exam GENERAL EXAM: Alert, restless 61-year-old male patient, the patient remains intubated on a mechanical ventilator and the patient is sedated and paralyzed for now. HEAD: Normocephalic. EYES: Normal reaction of pupils, equal size. NOSE: Clear with pink turbinates. THROAT: No erythema or exudates. NECK: No masses, no JVD. CHEST: No chest wall deformity. LUNGS: Equal air entry with coarse crackles in the posterior bases. CVS: S1 and S2 normal with no audible murmur, regular rhythm. ABDOMEN: No hepatosplenomegaly, normal bowel sounds, no guarding or rigidity. SPINE: No scoliosis or deformity SKIN: No rashes CENTRAL NERVOUS SYSTEM: No focal deficits, tone is normal in all 4 extremities. EXTREMITIES: There is no peripheral edema. No clubbing, no cyanosis. Peripheral pulses are intact. - Labs CBC & Chem 7: 10/31/21 04:15 10/31/21 04:50 Labs: Abnormal Lab Results - Last 24 Hours (Table) 10/30/21 10/30/21 10/30/21 Range/Units 10:57 11:24 18:02 WBC (3.8-10.6) k/uL RBC (4.30-5.90) m/uL Hgb (13.0-17.5) gm/dL Hct (39.0-53.0) % Neutrophils # (1.3-7.7) k/uL ABG pCO2 50 H (35-45) mmHg ABG pO2 114 H (83-108) mmHg ABG HCO3 27 H (21-25) mmol/L ABG Total CO2 29 H (19-24) mmol/L ABG O2 Saturation 97.8 H (94-97) % Chloride (98-107) mmol/L Creatinine (0.66-1.25) mg/dL Glucose (74-99) mg/dL POC Glucose (mg/dL) 149 H 155 H (75-99) mg/dL Calcium (8.4-10.2) mg/dL C-Reactive Protein (<1.0) mg/dL Total Protein (6.3-8.2) g/dL Albumin (3.5-5.0) g/dL 10/30/21 10/31/21 10/31/21 Range/Units 20:28 04:15 04:50 WBC 12.1 H (3.8-10.6) k/uL RBC 3.88 L (4.30-5.90) m/uL Hgb 12.2 L (13.0-17.5) gm/dL Hct 36.7 L (39.0-53.0) % Neutrophils # 10.3 H (1.3-7.7) k/uL ABG pCO2 (35-45) mmHg ABG pO2 (83-108) mmHg ABG HCO3 (21-25) mmol/L ABG Total CO2 (19-24) mmol/L ABG O2 Saturation (94-97) % Chloride 108 H (98-107) mmol/L Creatinine 0.61 L (0.66-1.25) mg/dL Glucose 189 H (74-99) mg/dL POC Glucose (mg/dL) 173 H (75-99) mg/dL Calcium 8.1 L (8.4-10.2) mg/dL C-Reactive Protein 20.8 H (<1.0) mg/dL Total Protein 5.9 L (6.3-8.2) g/dL Albumin 2.9 L (3.5-5.0) g/dL 10/31/21 Range/Units 05:56 WBC (3.8-10.6) k/uL RBC (4.30-5.90) m/uL Hgb (13.0-17.5) gm/dL Hct (39.0-53.0) % Neutrophils # (1.3-7.7) k/uL ABG pCO2 (35-45) mmHg ABG pO2 130 H (83-108) mmHg ABG HCO3 26 H (21-25) mmol/L ABG Total CO2 27 H (19-24) mmol/L ABG O2 Saturation 98.9 H (94-97) % Chloride (98-107) mmol/L Creatinine (0.66-1.25) mg/dL Glucose (74-99) mg/dL POC Glucose (mg/dL) (75-99) mg/dL Calcium (8.4-10.2) mg/dL C-Reactive Protein (<1.0) mg/dL Total Protein (6.3-8.2) g/dL Albumin (3.5-5.0) g/dL Microbiology - Last 24 Hours (Table) 10/30/21 13:45 Sputum Culture - Preliminary Sputum Assessment and Plan Plan: 1 Acute hypoxic respiratory failure related to acute COVID-19 related pneumonia, patient presented to the emergency department on 10/23/2021 with 2 week history of symptoms, patient is outside the window for Remdesivir, he is a non-vaccinated adult. The patient was transferred to the intensive care unit , the patient was started on BiPAP and ultimately failed BiPAP and the patient was intubated and placed on a mechanical ventilator. Currently is on a pressure control mode of mechanical ventilation. He has adequate oxygenation and ventilation for now. He is sedated and paralyzed. He continues to be on a combination of Decadron and Baricitinib. The patient is also on anticoagulation with Eliquis regarding bilateral pulmonary emboli. Intubation was done on 10/30/2021 without any major difficulties. 2 Bilateral pulmonary emboli on computed tomography scan 10/26/2021. Continued on Eliquis. 3 Diabetes mellitus type 2 with diabetic neuropathy currently on Levemir insulin for blood sugar control 4 Hypertension 5 Hyperlipidemia 6 Obstructive sleep apnea with previous history of UPPP 7 History of right eye melanoma with multiple surgeries 8 Previous history of CVA 9 Rheumatoid arthritis 10 History of gout 11 Previous history of MRSA infection in the wound on his back 12 Mild lactic acidosis, improved with IV hydration 13 Elevated inflammatory markers related to acute COVID-19 pneumonia 14 BPH with previous history of TURP Plan: Continue ventilator support with pressure control mode of mechanical ventilation. The FiO2 will be dropped gradually to maintain saturation above 90% Continue Decadron and Baricitinib per protocol Continue anticoagulation with Eliquis Keep the patient sedated and paralyzed for now Chest x-ray was reviewed Repeat inflammatory markers in a.m.. Initiate enteral feeding for nutritional support Family was updated on the condition Condition is critical . Critically care evaluation that was on a more than 30 minutes. Time with Patient: Greater than 30
[2021-10-31] MEDS: CLOTRIMAZOLE/BETAMETH 1-0.05% CREAM 45 GM TUBE TOPICAL SCH ×2 (10:20→20:38)
[2021-10-31 12:10] LABS: Glucose,Whole Blood 143 mg/dL (75-99)
--- NOTE | 2021-10-31 14:36 | P.PN ---
Progress Note - Text Progress Note Date: 10/31/21 Chief Complaint: Short of breath This is a pleasant 61-year-old patient, chronic stable medical conditions include diabetes, hypertension, hyperlipidemia, osteoarthritis, peripheral neuropathy, chronic gout. Patient presents with increasing shortness of breath. Cough. Clear sputum. Fever and chills. Tired rundown decrease appetite and diarrhea about 2 times a day. Patient tested positive for COVID-19 on October 09. His initial rapid COVID-19 was negative. In the send out came back positive. Patient did not take the vaccine against COVID-19. He is on 8 L of oxygen this morning. He is outside the window for Remdesivir. Admitted with COVID 19 pneumonitis, acute hypoxic respiratory failure. Started on Decadron. IV fluids. October 24: Feeling a bit better. Short of breath. 92% on 11 L. Did eat some. Sitting at the edge of the bed. A bit tired October 25: Short of breath. Cough. Oral intake fair. On 11 L of nasal cannula. Did sit up in a chair. October 26: Short of breath. Oral intake fair. Cough. 11 L nasal cannula. Dexamethasone. Chest CTA showing bilateral pulmonary embolism. October 27: Short of breath. Eating fair. 15 L nasal cannula. Tired. October 28: Remains on 15 L of nasal cannula. Eating about 50%. Short of breath. Tired. Trying to change his positions in bed. Including prone. October 29: Patient more short of breath and tired. Pulse oxing 87% on 15 L. Laying in bed. Eating around 50%. Late in the afternoon seen by pulmonary and patient be moved to ICU. October 30: Patient moved to ICU yesterday. Because of more respiratory compromise. Intubated earlier today. Drips include Diprivan, fentanyl, Nimbex, Levophed. Sinus rhythm. FiO2 19 a PEEP of 18. October 31: ICU: Ventilator/FiO2 19 a PEEP of 18. Drips include MX, propofol, fentanyl. Epinephrine. Review of systems: Intubated Active Medications Acarbose (Acarbose 25 Mg Tab) 50 mg PO TID-W/MEALS [facility] Last Admin: 10/31/21 12:06 Dose: 50 mg Documented by: Acetaminophen (Acetaminophen Tab 325 Mg Tab) 650 mg PO Q6HR PRN PRN Reason: Mild Pain or Fever > 100.5 Last Admin: 10/29/21 15:46 Dose: 650 mg Documented by: Albuterol Sulfate (Albuterol Hfa Inhaler) 2 puff INHALATION RT-QID PRN PRN Reason: Shortness Of Breath Last Admin: 10/30/21 16:43 Dose: 2 puff Documented by: Alprazolam (Alprazolam 0.25 Mg Tab) 0.25 mg PO BID PRN PRN Reason: Anxiety Last Admin: 10/29/21 15:58 Dose: 0.25 mg Documented by: Amitriptyline HCl (Amitriptyline Hcl 50 Mg Tab) 50 mg PO HS [facility] Last Admin: 10/30/21 20:08 Dose: 50 mg Documented by: Apixaban (Apixaban 5 Mg Tab) 10 mg PO BID [facility]; Protocol Stop: 11/01/21 21:01 Last Admin: 10/31/21 08:05 Dose: 10 mg Documented by: Apixaban (Apixaban 5 Mg Tab) 5 mg PO BID [facility]; Protocol Artificial Tears (Artificial Tears-Hypromellose Drops 15 Ml Btl) 2 drops BOTH EYES Q4HR [facility] Last Admin: 10/31/21 12:06 Dose: 2 drops Documented by: Ascorbic Acid (Ascorbic Acid 500 Mg Tab) 1,000 mg PO DAILY [facility] Last Admin: 10/31/21 08:05 Dose: 1,000 mg Documented by: Baricitinib (Baricitinib 2 Mg Tablet) 4 mg PO DAILY@1500 [facility] Stop: 11/11/21 15:01 Last Admin: 10/30/21 15:24 Dose: 4 mg Documented by: Betamethasone/Clotrimazole (Clotrimazole/Betameth 1-0.05% Cream 45 Gm Tube) 1 applic TOPICAL BID [facility]; Protocol Last Admin: 10/31/21 10:20 Dose: 1 applic Documented by: Calcium Carbonate/Glycine (Calcium Carbonate 500 Mg Chewable) 1,000 mg PO Q4HR PRN PRN Reason: Dyspepsia Carbamazepine (Carbamazepine 200 Mg Tab) 400 mg PO BID [facility] Last Admin: 10/31/21 08:06 Dose: 400 mg Documented by: Chlorhexidine Gluconate (Chlorhexidine Gluconate 15 Ml Cup) 15 ml MUCOUS MEM BID [facility] Last Admin: 10/31/21 08:06 Dose: 15 ml Documented by: Cholecalciferol (Cholecalciferol 25 Mcg (1000 Iu) Tablet) 25 mcg PO DAILY [facility] Last Admin: 10/31/21 08:06 Dose: 25 mcg Documented by: Dexamethasone Sodium Phosphate (Dexamethasone Sod Phosphate 10 Mg/Ml 1 Ml Vial) 6 mg IVP BID [facility] Last Admin: 10/31/21 08:07 Dose: 6 mg Documented by: Guaifenesin/Codeine Phosphate (Guaifenesin-Coden 100-10mg/5ml 10 Ml Cup) 10 ml PO Q6HR [facility] Last Admin: 10/31/21 12:06 Dose: Not Given Documented by: Dexmedetomidine HCl 400 mcg/ (IV Solution) 100 mls @ 4.082 mls/hr IV .Q24H [facility]; Protocol Last Titration: 10/30/21 12:21 Dose: 0 mcg/kg/hr, 0 mls/hr Documented by: Propofol 1,000 mg/ IV Solution 100 mls @ 0 mls/hr IV .Q0M [facility]; Protocol Last Admin: 10/31/21 12:23 Dose: 50 mcg/kg/min, 34.8 mls/hr Documented by: Cisatracurium Besylate 200 mg/ (Sodium Chloride) 200 mls @ 4.899 mls/hr IV .Q24H [facility]; Protocol Last Admin: 10/31/21 03:37 Dose: 1.5 mcg/kg/min, 7.348 mls/hr Documented by: Fentanyl Citrate 1,000 mcg/ (Sodium Chloride) 100 mls @ 4.082 mls/hr IV .Q24H [facility]; Protocol Last Admin: 10/31/21 08:36 Dose: 1 mcg/kg/hr, 8.165 mls/hr Documented by: Norepinephrine Bitartrate 8 mg (/ Sodium Chloride) 258 mls @ 7.899 mls/hr IV .Q24H [facility]; Protocol Last Titration: 10/31/21 13:50 Dose: 0.1 mcg/kg/min, 15.799 mls/hr Documented by: Insulin Aspart (Insulin Aspart (Novolog) 100 Unit/Ml Vial) 0 unit SQ ACHS [facility]; Protocol Last Admin: 10/31/21 12:11 Dose: 1 unit Documented by: Insulin Detemir (Insulin Detemir (Levemir) 100 Unit/Ml Syr) 16 unit SQ HS [facility] Last Admin: 10/30/21 20:08 Dose: 16 unit Documented by: Lactulose (Lactulose 20 Gm/30 Ml Cup) 20 gm PO DAILY PRN PRN Reason: Constipation Lorazepam (Lorazepam 2 Mg/Ml Inj) 2 mg IV Q2HR PRN PRN Reason: Anxiety Last Admin: 10/29/21 22:56 Dose: 2 mg Documented by: Metoprolol Tartrate (Metoprolol Tartrate 50 Mg Tab) 50 mg PO BID [facility] Last Admin: 10/31/21 08:06 Dose: 50 mg Documented by: Naloxone HCl (Naloxone 0.4 Mg/Ml 1 Ml Vial) 0.2 mg IV Q2M PRN PRN Reason: Opioid Reversal Ondansetron HCl (Ondansetron 4 Mg/2 Ml Vial) 4 mg IVP Q8HR PRN PRN Reason: Nausea And Vomiting Pregabalin (Pregabalin 100 Mg Cap) 200 mg PO BID [facility] Last Admin: 10/31/21 08:06 Dose: 200 mg Documented by: Sertraline HCl (Sertraline 50 Mg Tab) 50 mg PO DAILY [facility] Last Admin: 10/31/21 08:08 Dose: 50 mg Documented by: Zinc Sulfate (Zinc Sulfate 220 Mg Cap) 220 mg PO DAILY [facility] Last Admin: 10/31/21 08:05 Dose: 220 mg Documented by: Social history: Patient is on Social Security. Does not smoke or drink alcohol. Patient's daughters family lives with him. Family history: Father at the age of 40 with heart attack Physical examination: VITAL SIGNS: 98.8, 65, 32, 105/69, 98% on the ventilator GENERAL: Laying in bed, intubated LUNGS: Respiratory rate increased,. PSYCH: Unable to assess Rest of the exam per nursing and pulmonary INVESTIGATIONS, reviewed in the clinical context: October 31: White count 12.1 hemoglobin 12.2 platelets 240 potassium 4.8 creatinine 0.61 October 30: White count 12.9 hemoglobin 13.1 potassium 5.6 creatinine 0.69 October 29: White count 13.1 hemoglobin 13.8 d-dimer 16.2 potassium 4.7 creatinine 0.76 October 28: D-dimer 13.4 to October 26: D-dimer 8.48 CRP 24 Chest CTA [October 26: biLateral pulmonary embolism Doppler ultrasound lower extremity: Negative for DVT October 24: White count 9.7 hemoglobin 15.3 platelets 221 d-dimer 1.93 progression 4.2 creatinine 0.71 CRP 5.5 pro-calcitonin 0.08 White count 9.9 hemoglobin 16 platelets 234 d-dimer 0.98 sodium 141 potassium 3.4 creatinine 0.81 Lactic acid 2.9 LDH 1422 CRP 7.5 EKG tracing personally reviewed by me-normal sinus rhythm. Nonspecific ST segment changes. Chest x-ray film personally reviewed by me-bilateral infiltrates Assessment and plan: -Acute severe COVID 19 pneumonitis in a patient who did not take the COVID-19 vaccine: On improving Dexamethasone, vitamin C, vitamin D, zinc. Patient's outside the window for Remdesivir. -Acute hypoxic respiratory failure from COVID-19: Not improving intubated October 30. FiO2 90 and a PEEP of 18. -Bilateral pulmonary embolism secondary to COVID-19 Eliquis -Essential hypertension Lopressor 50 mg twice a day, Cozaar 50 mg daily -Diabetes mellitus type 2, on oral hypoglycemic, uncontrolled with hyperglycemia Glucophage thousand milligrams twice a day. Follow Accu-Chek. Precose. Levemir 16 units daily at bedtime -Chronic insomnia for medical conditions Elavil 50 mg daily at bedtime -Hyperlipidemia TriCor 48 mg daily -Obstructive sleep apnea Use CPAP -Diabetic peripheral neuropathy Lyrica 200 mg twice daily -Full code Drips include : fentanyl Nimbex, propofol levo fed. Ventilator. Continue supportive care. Cortical
[2021-10-31] MEDS: BARICITINIB 2 MG TABLET PO SCH (15:33)
[2021-10-31] MEDS: NOREPINEPHRINE 8 MG in SODIUM CHLORIDE 0.9% 250 ML IV SCH (16:05)
[2021-10-31 17:49] LABS: Glucose,Whole Blood 153 mg/dL (75-99)
[2021-10-31] MEDS: AMITRIPTYLINE HCL 50 MG TAB PO SCH (20:39)
[2021-10-31] MEDS: INSULIN DETEMIR (LEVEMIR) 100 UNIT/ML SYR SQ SCH (21:06)
[2021-10-31 21:07] LABS: Glucose,Whole Blood 148 mg/dL (75-99)
[2021-11-01 00:41] LABS: Glucose,Whole Blood 189 mg/dL (75-99)
[2021-11-01] MEDS: INSULIN ASPART (NovoLOG) 100 UNIT/ML VIAL SQ SCH ×4 (00:44→18:06)
[2021-11-01] MEDS: guaiFENesin-Coden 100-10MG/5ML 10 ML CUP PO SCH ×5 (00:45→23:59)
[2021-11-01] MEDS: ARTIFICIAL TEARS-HYPROMELLOSE DROPS 15 ML BTL BOTH EYES SCH ×6 (00:46→20:06)
[2021-11-01] MEDS: fentaNYL (PF). 1,000 MCG in SODIUM CHLORIDE 0.9% 80 ML IV SCH ×3 (01:45→17:48)
[2021-11-01 05:06] LABS: Basophils % (A) 0 %; Eosinophils # (A) 0.1 k/uL (0-0.7); Eosinophils % (A) 1 %; HCT 34.3 % (39.0-53.0); HGB 11.6 gm/dL (13.0-17.5); Lymphocytes # (A) 1.2 k/uL (1.0-4.8); Lymphocytes % (A) 11 %; MCHC 33.7 g/dL (31.0-37.0); Mean Platelet Volume 8.5; Monocytes # (A) 0.5 k/uL (0-1.0); Monocytes % (A) 4 %; Neutrophils # (A) 9.2 k/uL (1.3-7.7); Neutrophils % (A) 82 %; Platelet Count 203 k/uL (150-450); Poikilocytosis Slight; RBC 3.61 m/uL (4.30-5.90); RDW 14.7 % (11.5-15.5); WBC 11.1 k/uL (3.8-10.6)
[2021-11-01 05:17] LABS: ALT 29 U/L (4-49); AST 31 U/L (17-59); African American GFR (CKD) >90 (>60 ml/min/1.73 sqM); Albumin 2.6 g/dL (3.5-5.0); Alkaline Phosphatase 72 U/L (38-126); Anion Gap 6 mmol/L; Blood Urea Nitrogen 28 mg/dL (9-20); Carbon Dioxide 23 mmol/L (22-30); Chloride 109 mmol/L (98-107); Glucose 188 mg/dL (74-99); Non-African American GFR(CKD) >90 (>60 ml/min/1.73 sqM); Potassium 4.7 mmol/L (3.5-5.1); Sodium 138 mmol/L (137-145); Total Bilirubin 0.6 mg/dL (0.2-1.3); Total Protein 5.6 g/dL (6.3-8.2)
[2021-11-01 05:34] LABS: Glucose,Whole Blood 177 mg/dL (75-99)
[2021-11-01 06:28] LABS: ABG Base Excess 0.2 mmol/L; ABG HCO3 25 mmol/L (21-25); ABG Oxygen Saturation 97.2 % (94-97); ABG PCO2 41 mmHg (35-45); ABG PO2 101 mmHg (83-108); ABG TCO2 26 mmol/L (19-24)
[2021-11-01 06:30] LABS: Allen Test Performed? No
[2021-11-01] MEDS: ACARBOSE 25 MG TAB PO SCH ×3 (06:50→17:46)
[2021-11-01] MEDS: CHOLECALCIFEROL 25 MCG (1000 IU) TABLET PO SCH (07:57)
[2021-11-01] MEDS: CHLORHEXIDINE GLUCONATE 15 ML CUP MUCOUS MEM SCH ×2 (07:57→19:56)
[2021-11-01] MEDS: CLOTRIMAZOLE/BETAMETH 1-0.05% CREAM 45 GM TUBE TOPICAL SCH ×2 (07:57→19:55)
[2021-11-01] MEDS: SERTRALINE 50 MG TAB PO SCH (07:57)
[2021-11-01] MEDS: ZINC SULFATE 220 MG CAP PO SCH (07:57)
[2021-11-01] MEDS: carBAMazepine 200 MG TAB PO SCH ×2 (07:58→19:55)
[2021-11-01] MEDS: APIXABAN 5 MG TAB PO SCH ×2 (07:58→19:56)
[2021-11-01] MEDS: PREGABALIN 100 MG CAP PO SCH ×2 (07:58→19:55)
[2021-11-01] MEDS: ASCORBIC ACID 500 MG TAB PO SCH (07:58)
[2021-11-01] MEDS: DEXAMETHASONE SOD PHOSPHATE 10 MG/ML 1 ML VIAL IVP SCH ×2 (07:59→19:56)
[2021-11-01] MEDS: ALBUTEROL HFA INHALER INHALATION PRN ×4 (08:10→20:29)
--- NOTE | 2021-11-01 08:17 | P.PN ---
Subjective Progress Note Date: 11/01/21 61-year-old male patient with past medical history of diabetes mellitus type 2 with diabetic neuropathy, hypertension, hyperlipidemia, previous history of CVA, rheumatoid arthritis, obstructive sleep apnea S/P UPPP, history of right eye melanoma with previous surgeries, BPH with previous TURP, chronic lower extremity edema, cellulitis, gout, presented to the emergency department on 10/23/2021 at 240 3 in the morning with complaints of severe shortness of breath, cough, congestion. Patient states he has had symptoms since October 09, initially was tested via rapid COVID-19 PCR test which was negative however the send out PCR test came back positive. He states over the last 2 weeks his symptoms continue to worsen, he feels weak, short of breath, complains of cough and chest congestion. No chest pain. He has not been vaccinated against COVID- 19. He does endorse fever, malaise, nausea, abdominal pain. His chest x-ray showed moderate pulmonary testicular edema. His lab work has been reviewed showing white blood cell count of 9.9, hemoglobin 16, platelet count is 234, neutrophils 8.1, lymphocyte count is 1.49, INR is 1.1, sodium is 141, potassium is 3.4, chloride is 101, CO2 is 23, BUN is 23 creatinine 0.81, plasma lactic acid was 2.9 and is currently down to 1.7, LDH was 1422, proBNP was 185, LFTs were within normal limits. Patient is currently requiring 8 L of oxygen his pulse ox is 96%, he still has a congested cough, he has been afebrile, he is short of breath with any exertion. Denies any hemoptysis or chest discomfort. Has been started on Decadron 6 mg daily, he was given IV hydration with 1 L bolus, and currently receiving 0.9 normal saline at a rate of 1:30 ML per hour, his lactic acid has improved. Patient is outside the window for Remdesivir. The patient is seen today 10/24/2021 in follow-up on the regular medical floor. He is currently sitting up in a chair at the bedside. Awake alert in no acute distress. Doing about the same today as compared to yesterday. He is on 11 L high flow nasal cannula to maintain O2 saturations in the 90s. He is dyspneic with conversation. Dyspneic with minimal exertion. Follow-up chest x-ray is unchanged. Still with bilateral interstitial and airspace opacities. No pneumothorax or large effusions. White count 9.7. Hemoglobin 15.3. D-dimer 1.93 sodium 141 potassium 4.2. Creatinine 0.71. LDH 1592. C-reactive protein 5.5. Pro-calcitonin 0.08. He is continued on Decadron, Lovenox, vitamin supplements. The patient is seen today 10/28/2021 in follow-up on the regular medical floor. He is currently sitting up in a chair at the bedside. Awake and alert in no acute distress. He is still requiring 15 L high flow nasal cannula plus an occasional nonrebreather mask. His only complaint today is that of a headache. No worsening shortness of breath, cough or congestion. Patient was found to have bilateral pulmonary emboli. Dopplers of the lower extremity were negative for DVT. He is maintained on Eliquis, Decadron, vitamin supplements. D-dimer 13.4. Blood glucose 153. The patient is seen today 10/29/2021 in follow-up on the regular medical floor. He is quite a bit more short of breath today compared to yesterday. Somewhat restless. He is now on AirVo high flow oxygen at 60 L and 90% FiO2 plus a 100% nonrebreather mask. He is febrile. He is tachycardic. Tachypneic. White cou nt 13.1. Hemoglobin 13.8. Lymphocytes 1.1. D-dimer 16.6. Sodium 140. Potassium 4.7. Creatinine 0.76. Blood sugar 147. AST 32. ALT 39. He is continued on Baricitinib, Eliquis, Decadron, vitamin supplements. Levemir and sliding scale for insulin coverage. 10/30/2021, the patient is being seen in the follow-up in the intensive care unit. Noted the patient was getting progressively more agitated, tachypneic, short of breath and hypoxic yesterday. Based on that, make recommendations for this patient to get transferred to the intensive care unit. This morning, the patient is on BiPAP at a pressure of 12/6 cm of water. Note that he was on Airvo a 60 L with an FiO2 of 90% along with 100% nonrebreather facemask. This got switched to BiPAP as of midnight as the patient was quite uncomfortable and short of breath and hypoxic. Chest x-ray still showing diffuse bilateral pulmonary infiltrates. No evidence of any pneumomediastinum. No evidence of any pneumothorax. At the same time, the patient had to be sedated and is currently on Precedex at 1 mcg/kg per minute. In terms of his COVID 19 related pneumonia, the patient is still receiving a combination of Decadron on Baricit inib per protocol. The patient is also on Eliquis regarding suspected bilateral pulmonary embolism. His most recent LDH level was 1382 and this was from 10/26/2021 and his CRP was also had a 24. This needs to be repeated. Meanwhile, his blood work from today shows a white cell count of 12.7 with hemoglobin of 15.1 and a platelet count of 20-24, respiratory distress shows some mild hyperkalemia and potassium of any severity checked with a BUN of 20 and a creatinine of 0.6. The patient remains on anticoagulation with Eliquis 5 mg by mouth twice a day. He also has a Atrovent to be used on an as-needed basis for increased anxiety and agitation. The patient is currently in the intensive care unit. High likelihood for further progression and possible intubation mechanical ventilation and this will largely depend on his clinical progress. 10/31/2021, the patient is intubated on a mechanical ventilator. Events from yesterday were noted and the patient became progressively more hypoxic and at that point the patient failed BiPAP and the patient had to be intubated and placed on mechanical ventilator. This morning, the patient is sedated and the patient is currently on a combination of probable running at 40 mg/kg per minute and the patient is also on fentanyl running at 1 geno per kilogram per hour. The patient is paralyzed with Nimbex running at 2 mcg/kg per minute. The patient is maintaining good synchrony with the mechanical ventilator. Meanwhile, the patient is currently on pressure control mode of mechanical ventilation. The pressure control is at 23 centimeters of water with a PEEP of 18 and a inspiratory time of 1 second, FiO2 of 70% and the rate of 32. The blood gases from today shows a pH of 7.38 with a pCO2 of 43 and pO2 of 130. This was on FiO2 of 80%. Based on that, the father was dropped down to 70% and her saturations around 90%. I think is more room for weaning on the FiO2. Meanwhile, the chest x-ray that was done today was reviewed. ET tube remains high in the trachea and the 31st and by around 2 cm. Respiratory services will be informed. No evidence of any pneumothorax. There is diffuse bilateral pulmonary infiltrates consistent with COVID 19 related pneumonia. Meanwhile, terms of his COVID 19 infection, the patient's inflammatory markers show a CRP of 20.8, his LDH level is still pending from today and his last level was at 1 382. His current d-dimer is at 16.2. The patient remains on Decadron 6 mg IV every 12 hours. The patient remains on Baricitinib per protocol. The patient is also on anticoagulation and is receiving Eliquis 5 mg by mouth twice a day. IV fluids are running at the rate of 30 mL an hour. No signs of any fluid overload. Urine output is in order of 30-50 mL an hour and there is no signs of fluid overload at this point in time. The patient will be started on enteral feeding for nutritional support today. He is on Levemir insulin 16 units at bedtime in addition to NovoLog, sliding scale coverage. for monitoring the patient for a follow-up. His night was essentially uneventful. This morning, he remains on propofol running at 50 mcg/kg per minute and the fentanyl is running at 1 mcg/kg/h. The patient is also paralyzed with Nimbex at 1.5 mcg/kg per minute. He remains on a mechanical ventilator. He is on a pressure control mode of mechanical ventilation. He is currently on a pressure control of 20, rate of 32, PEEP is currently at 18 with an FiO2 of 60%. Inspiratory time is at 0.9 seconds. The blood gases from today is showing pH of 7.4 with a pCO2 of 41 and pO2 of 101. The chest x-ray from today is showing no significant interval change. ET tube remains in a good location. The patient has a triple lumen catheter also in place. No evidence of pneumothorax. There is evidence of subcutaneous emphysema. Nevertheless, the patient has developed a significant pneumomediastinum/pneumopericardium. There is emphysema which is subcutaneous and this amount is minimally the neck area. Nevertheless, the patient has significant pneumomediastinum. In terms of his inflammatory markers, the patient's LDH was last checked on 10/26/2021 and it was 1382. His CRP was at 20.8. On his blood work, his white cell count is 11, hemoglobin is at 11.6 and the platelet count is at 203. The rest of the electrolytes and renal function are all within normal limits. The patient continues to be on a combination of Decadron and Baricitinib per protocol. The patient is also on anticoagulation withEliquis as the patient was identified to have some bilateral pulmonary emboli on the CT angiogram of the time of admission. The patient is receiving enteral feeding for nutritional support. He is currently on cycle 1.2 at the rate of 29 mL an hour which is currently it is at goal. The blood sugar control as well as Levemir insulin 16 units along with a on a scale coverage. The blood sugar control is adequate for now. In terms of his urine output, he is producing urine output is order of 30 mL an hour. No signs of any significant fluid overload for now. The overall fluid balance has been +1.6 L over the past 24 hours. He is afebrile. He is hemodynamically stable. No other significant events overnight. Objective - Vital Signs Vital signs: Vital Signs Temp 98.5 F 11/01/21 04:00 Pulse 67 11/01/21 07:00 Resp 32 H 11/01/21 07:00 BP 100/69 11/01/21 07:00 Pulse Ox 97 11/01/21 07:00 Intake & Output 10/31/21 11/01/21 11/01/21 18:59 06:59 18:59 Intake Total 1354.239 954.355 118.16 Output Total 325 310 20 Balance 1029.239 644.355 98.16 Weight 117 kg Intake: IV 380 330 30 0.9 NS KVO 380 330 30 Intake, IV Titration 798.239 270.355 88.16 Amount Cisatracurium 200 mg In 107.158 Sodium Chloride 0.9% 180 ml @ 1 MCG/KG/MIN 4.899 mls/hr IV .Q24H [facility] Rx#: [id number] Norepinephrine 8 mg In 130.796 Sodium Chloride 0.9% 250 ml @ 0.05 MCG/KG/MIN 7. 899 mls/hr IV .Q24H [facility] Rx#:[id number] fentaNYL (PF). 1,000 mcg 131.185 70.355 In Sodium Chloride 0.9% 80 ml @ 0.5 MCG/KG/HR 4. 082 mls/hr IV .Q24H [facility] Rx#:[id number] propofoL 1,000 mg In 429.10 200 88.16 Empty Bag 1 bag @ Titrate IV .Q0M [facility] Rx#: [id number] Tube Feeding 116 174 Other 60 180 Output: Urine 325 310 20 Other: Voiding Method Indwelling Catheter Indwelling Catheter ABP, PAP, CO, CI - Last Documented Arterial Blood Pressure 97/78 - Exam GENERAL EXAM: Alert, restless 61-year-old male patient, the patient remains intubated on a mechanical ventilator and the patient is sedated and paralyzed for now. HEAD: Normocephalic. EYES: Normal reaction of pupils, equal size. NOSE: Clear with pink turbinates. THROAT: No erythema or exudates. NECK: No masses, no JVD. CHEST: No chest wall deformity. LUNGS: Equal air entry with coarse crackles in the posterior bases. CVS: S1 and S2 normal with no audible murmur, regular rhythm. ABDOMEN: No hepatosplenomegaly, normal bowel sounds, no guarding or rigidity. SPINE: No scoliosis or deformity SKIN: No rashes CENTRAL NERVOUS SYSTEM: No focal deficits, tone is normal in all 4 extremities. EXTREMITIES: There is no peripheral edema. No clubbing, no cyanosis. Peripheral pulses are intact. - Labs CBC & Chem 7: 11/01/21 04:42 11/01/21 04:42 Labs: Abnormal Lab Results - Last 24 Hours (Table) 10/31/21 10/31/21 10/31/21 Range/Units 12:08 17:47 21:05 WBC (3.8-10.6) k/uL RBC (4.30-5.90) m/uL Hgb (13.0-17.5) gm/dL Hct (39.0-53.0) % Neutrophils # (1.3-7.7) k/uL ABG Total CO2 (19-24) mmol/L ABG O2 Saturation (94-97) % Chloride (98-107) mmol/L BUN (9-20) mg/dL Glucose (74-99) mg/dL POC Glucose (mg/dL) 143 H 153 H 148 H (75-99) mg/dL Calcium (8.4-10.2) mg/dL Total Protein (6.3-8.2) g/dL Albumin (3.5-5.0) g/dL 11/01/21 11/01/21 11/01/21 Range/Units 00:40 04:42 04:42 WBC 11.1 H (3.8-10.6) k/uL RBC 3.61 L (4.30-5.90) m/uL Hgb 11.6 L (13.0-17.5) gm/dL Hct 34.3 L (39.0-53.0) % Neutrophils # 9.2 H (1.3-7.7) k/uL ABG Total CO2 (19-24) mmol/L ABG O2 Saturation (94-97) % Chloride 109 H (98-107) mmol/L BUN 28 H (9-20) mg/dL Glucose 188 H (74-99) mg/dL POC Glucose (mg/dL) 189 H (75-99) mg/dL Calcium 8.0 L (8.4-10.2) mg/dL Total Protein 5.6 L (6.3-8.2) g/dL Albumin 2.6 L (3.5-5.0) g/dL 11/01/21 11/01/21 Range/Units 05:33 05:39 WBC (3.8-10.6) k/uL RBC (4.30-5.90) m/uL Hgb (13.0-17.5) gm/dL Hct (39.0-53.0) % Neutrophils # (1.3-7.7) k/uL ABG Total CO2 26 H (19-24) mmol/L ABG O2 Saturation 97.2 H (94-97) % Chloride (98-107) mmol/L BUN (9-20) mg/dL Glucose (74-99) mg/dL POC Glucose (mg/dL) 177 H (75-99) mg/dL Calcium (8.4-10.2) mg/dL Total Protein (6.3-8.2) g/dL Albumin (3.5-5.0) g/dL Microbiology - Last 24 Hours (Table) 10/30/21 13:45 Gram Stain - Preliminary Sputum Sputum Culture - Preliminary Assessment and Plan Plan: 1 Acute hypoxic respiratory failure related to acute COVID-19 related pneumonia, patient presented to the emergency department on 10/23/2021 with 2 week history of symptoms, patient is outside the window for Remdesivir, he is a non-vaccinated adult. The patient was transferred to the intensive care unit , the patient was started on BiPAP and ultimately failed BiPAP and the patient was intubated and placed on a mechanical ventilator. Currently is on a pressure control mode of mechanical ventilation. He has adequate oxygenation and ventilation for now. He is sedated and paralyzed. He continues to be on a combination of Decadron and Baricitinib. The patient is also on anticoagulation with Eliquis regarding bilateral pulmonary emboli. Intubation was done on 10/30/2021 without any major difficulties. I reviewed the chest x-ray from today and there is evidence of pneumomediastinum and minimal opiates emphysema in the neck area. Nevertheless, this has not affected the patient's ability to oxygenate and ventilate. I'm going to do some adjustments on his mechanical ventilator. We'll keep the same treatment for now. We'll keep him sedated and paralyzed over the next 24 hours. 2 Bilateral pulmonary emboli on computed tomography scan 10/26/2021. Continued on Eliquis. 3 Diabetes mellitus type 2 with diabetic neuropathy currently on Levemir insulin for blood sugar control 4 Hypertension 5 Hyperlipidemia 6 Obstructive sleep apnea with previous history of UPPP 7 History of right eye melanoma with multiple surgeries 8 Previous history of CVA 9 Rheumatoid arthritis 10 History of gout 11 Previous history of MRSA infection in the wound on his back 12 Mild lactic acidosis, improved with IV hydration 13 Elevated inflammatory markers related to acute COVID-19 pneumonia 14 BPH with previous history of TURP 15 pneumomediastinum and subcutaneous emphysema, complications of COVID 19 related pneumonia Plan: Continue ventilator support with pressure control mode of mechanical ventilation. Change the respiratory rate down to 28, change the PEEP down to 16 and FiO2 down to 55% The FiO2 will be dropped gradually to maintain saturation above 90% Continue Decadron and Baricitinib per protocol Continue anticoagulation with Eliquis Keep the patient sedated and paralyzed for now Chest x-ray was reviewed Repeat inflammatory markers in a.m.. # enteral feeding for nutritional support Family was updated on the condition Condition is critical . Critically care evaluation that was on a more than 30 minutes. Time with Patient: Greater than 30
--- NOTE | 2021-11-01 09:53 | XR ---
EXAMINATION TYPE: XR chest 1V portable DATE OF EXAM: 11/01/2021 COMPARISON: 10/31/2021 INDICATION: Tube placement TECHNIQUE: Single frontal view of the chest is obtained. FINDINGS: The heart size is normal. The pulmonary vasculature is normal. There are patchy bilateral lung infiltrates. Endotracheal tube tip is 6 cm above the dennis. Nasogastric tube transverses the thorax. Left central venous catheter tip is in the superior vena cava region. IMPRESSION: 1. Diffuse patchy bilateral lung infiltrates, stable from comparison. Continued follow-up. 2. Lines and catheters discussed above.
[2021-11-01] MEDS: METOPROLOL TARTRATE 50 MG TAB PO SCH ×2 (11:11→19:56)
[2021-11-01] MEDS: NOREPINEPHRINE 8 MG in SODIUM CHLORIDE 0.9% 250 ML IV SCH (11:11)
[2021-11-01 11:25] LABS: C Reactive Protein 7.6 mg/dL (<1.0)
[2021-11-01 12:26] LABS: ABG Base Excess -0.6 mmol/L; ABG HCO3 25 mmol/L (21-25); ABG Oxygen Saturation 92.4 % (94-97); ABG PCO2 47 mmHg (35-45); ABG PH 7.34 (7.35-7.45); ABG PO2 71 mmHg (83-108); ABG TCO2 27 mmol/L (19-24)
[2021-11-01 12:37] LABS: Glucose,Whole Blood 183 mg/dL (75-99)
[2021-11-01] MEDS: CISATRACURIUM 200 MG in SODIUM CHLORIDE 0.9% 180 ML IV SCH (13:36)
--- NOTE | 2021-11-01 16:39 | P.PN ---
Progress Note - Text Progress Note Date: 11/01/21 Chief Complaint: Short of breath This is a pleasant 61-year-old patient, chronic stable medical conditions include diabetes, hypertension, hyperlipidemia, osteoarthritis, peripheral neuropathy, chronic gout. Patient presents with increasing shortness of breath. Cough. Clear sputum. Fever and chills. Tired rundown decrease appetite and diarrhea about 2 times a day. Patient tested positive for COVID-19 on October 09. His initial rapid COVID-19 was negative. In the send out came back positive. Patient did not take the vaccine against COVID-19. He is on 8 L of oxygen this morning. He is outside the window for Remdesivir. Admitted with COVID 19 pneumonitis, acute hypoxic respiratory failure. Started on Decadron. IV fluids. October 24: Feeling a bit better. Short of breath. 92% on 11 L. Did eat some. Sitting at the edge of the bed. A bit tired October 25: Short of breath. Cough. Oral intake fair. On 11 L of nasal cannula. Did sit up in a chair. October 26: Short of breath. Oral intake fair. Cough. 11 L nasal cannula. Dexamethasone. Chest CTA showing bilateral pulmonary embolism. October 27: Short of breath. Eating fair. 15 L nasal cannula. Tired. October 28: Remains on 15 L of nasal cannula. Eating about 50%. Short of breath. Tired. Trying to change his positions in bed. Including prone. October 29: Patient more short of breath and tired. Pulse oxing 87% on 15 L. Laying in bed. Eating around 50%. Late in the afternoon seen by pulmonary and patient be moved to ICU. October 30: Patient moved to ICU yesterday. Because of more respiratory compromise. Intubated earlier today. Drips include Diprivan, fentanyl, Nimbex, Levophed. Sinus rhythm. FiO2 19 a PEEP of 18. October 31: ICU: Ventilator/FiO2 19 a PEEP of 18. Drips include MX, propofol, fentanyl. Epinephrine. November 01: ICU: On the ventilator FiO2 55 PEEP of 16. Drips included propofol, Nimbex, fentanyl. 2 feeding at 29 mL an hour. Review of systems: Intubated Active Medications Acarbose (Acarbose 25 Mg Tab) 50 mg PO TID-W/MEALS [facility] Last Admin: 11/01/21 13:37 Dose: 50 mg Documented by: Acetaminophen (Acetaminophen Tab 325 Mg Tab) 650 mg PO Q6HR PRN PRN Reason: Mild Pain or Fever > 100.5 Last Admin: 10/29/21 15:46 Dose: 650 mg Documented by: Albuterol Sulfate (Albuterol Hfa Inhaler) 2 puff INHALATION RT-QID PRN PRN Reason: Shortness Of Breath Last Admin: 11/01/21 15:50 Dose: 2 puff Documented by: Alprazolam (Alprazolam 0.25 Mg Tab) 0.25 mg PO BID PRN PRN Reason: Anxiety Last Admin: 10/29/21 15:58 Dose: 0.25 mg Documented by: Amitriptyline HCl (Amitriptyline Hcl 50 Mg Tab) 50 mg PO [facility] Last Admin: 10/31/21 20:39 Dose: 50 mg Documented by: Apixaban (Apixaban 5 Mg Tab) 10 mg PO BID [facility]; Protocol Stop: 11/01/21 21:01 Last Admin: 11/01/21 07:58 Dose: 10 mg Documented by: Apixaban (Apixaban 5 Mg Tab) 5 mg PO BID [facility]; Protocol Artificial Tears (Artificial Tears-Hypromellose Drops 15 Ml Btl) 2 drops BOTH EYES Q4HR [facility] Last Admin: 11/01/21 11:13 Dose: 2 drops Documented by: Ascorbic Acid (Ascorbic Acid 500 Mg Tab) 1,000 mg PO DAILY [facility] Last Admin: 11/01/21 07:58 Dose: 1,000 mg Documented by: Baricitinib (Baricitinib 2 Mg Tablet) 4 mg PO DAILY@1500 [facility] Stop: 11/11/21 15:01 Last Admin: 10/31/21 15:33 Dose: 4 mg Documented by: Betamethasone/Clotrimazole (Clotrimazole/Betameth 1-0.05% Cream 45 Gm Tube) 1 applic TOPICAL BID [facility]; Protocol Last Admin: 11/01/21 07:57 Dose: 1 applic Documented by: Calcium Carbonate/Glycine (Calcium Carbonate 500 Mg Chewable) 1,000 mg PO Q4HR PRN PRN Reason: Dyspepsia Carbamazepine (Carbamazepine 200 Mg Tab) 400 mg PO BID [facility] Last Admin: 11/01/21 07:58 Dose: 400 mg Documented by: Chlorhexidine Gluconate (Chlorhexidine Gluconate 15 Ml Cup) 15 ml MUCOUS MEM BID [facility] Last Admin: 11/01/21 07:57 Dose: 15 ml Documented by: Cholecalciferol (Cholecalciferol 25 Mcg (1000 Iu) Tablet) 25 mcg PO DAILY [facility] Last Admin: 11/01/21 07:57 Dose: 25 mcg Documented by: Dexamethasone Sodium Phosphate (Dexamethasone Sod Phosphate 10 Mg/Ml 1 Ml Vial) 6 mg IVP BID [facility] Last Admin: 11/01/21 07:59 Dose: 6 mg Documented by: Guaifenesin/Codeine Phosphate (Guaifenesin-Coden 100-10mg/5ml 10 Ml Cup) 10 ml PO Q6HR [facility] Last Admin: 11/01/21 11:12 Dose: Not Given Documented by: Dexmedetomidine HCl 400 mcg/ (IV Solution) 100 mls @ 4.082 mls/hr IV .Q24H [facility]; Protocol Last Titration: 10/30/21 12:21 Dose: 0 mcg/kg/hr, 0 mls/hr Documented by: Propofol 1,000 mg/ IV Solution 100 mls @ 0 mls/hr IV .Q0M [facility]; Protocol Last Admin: 11/01/21 12:07 Dose: 50 mcg/kg/min, 35.1 mls/hr Documented by: Cisatracurium Besylate 200 mg/ (Sodium Chloride) 200 mls @ 4.899 mls/hr IV .Q24H [facility]; Protocol Last Admin: 11/01/21 13:36 Dose: 1.5 mcg/kg/min, 7.348 mls/hr Documented by: Fentanyl Citrate 1,000 mcg/ (Sodium Chloride) 100 mls @ 4.082 mls/hr IV .Q24H [facility]; Protocol Last Admin: 11/01/21 10:05 Dose: 1 mcg/kg/hr, 8.165 mls/hr Documented by: Norepinephrine Bitartrate 8 mg (/ Sodium Chloride) 258 mls @ 7.899 mls/hr IV .Q24H [facility]; Protocol Last Admin: 11/01/21 11:11 Dose: Not Given Documented by: Insulin Aspart (Insulin Aspart (Novolog) 100 Unit/Ml Vial) 0 unit SQ Q6HR [facility]; Protocol Last Admin: 11/01/21 13:36 Dose: 4 unit Documented by: Insulin Detemir (Insulin Detemir (Levemir) 100 Unit/Ml Syr) 16 unit SQ HS [facility] Last Admin: 10/31/21 21:06 Dose: 16 unit Documented by: Lactulose (Lactulose 20 Gm/30 Ml Cup) 20 gm PO DAILY PRN PRN Reason: Constipation Lorazepam (Lorazepam 2 Mg/Ml Inj) 2 mg IV Q2HR PRN PRN Reason: Anxiety Last Admin: 10/29/21 22:56 Dose: 2 mg Documented by: Metoprolol Tartrate (Metoprolol Tartrate 50 Mg Tab) 50 mg PO BID [facility] Last Admin: 11/01/21 11:11 Dose: Not Given Documented by: Naloxone HCl (Naloxone 0.4 Mg/Ml 1 Ml Vial) 0.2 mg IV Q2M PRN PRN Reason: Opioid Reversal Ondansetron HCl (Ondansetron 4 Mg/2 Ml Vial) 4 mg IVP Q8HR PRN PRN Reason: Nausea And Vomiting Pregabalin (Pregabalin 100 Mg Cap) 200 mg PO BID [facility] Last Admin: 11/01/21 07:58 Dose: 200 mg Documented by: Sertraline HCl (Sertraline 50 Mg Tab) 50 mg PO DAILY [facility] Last Admin: 11/01/21 07:57 Dose: 50 mg Documented by: Zinc Sulfate (Zinc Sulfate 220 Mg Cap) 220 mg PO DAILY [facility] Last Admin: 11/01/21 07:57 Dose: 220 mg Documented by: Social history: Patient is on Social Security. Does not smoke or drink alcohol. Patient's daughters family lives with him. Family history: Father at the age of 40 with heart attack Physical examination: VITAL SIGNS: 98.4, 63, 28, 99/68, 96% on the ventilator GENERAL: Laying in bed, intubated LUNGS: Respiratory rate increased,. PSYCH: Unable to assess Rest of the exam per nursing and pulmonary INVESTIGATIONS, reviewed in the clinical context: November 01: White count 11.1 hemoglobin 11.6 platelets 203 d-dimer 10.6 potassium 4.7 creatinine 0.73 October 31: White count 12.1 hemoglobin 12.2 platelets 240 potassium 4.8 creatinine 0.61 October 30: White count 12.9 hemoglobin 13.1 potassium 5.6 creatinine 0.69 October 29: White count 13.1 hemoglobin 13.8 d-dimer 16.2 potassium 4.7 creatinine 0.76 October 28: D-dimer 13.4 to October 26: D-dimer 8.48 CRP 24 Chest CTA [October 26: biLateral pulmonary embolism Doppler ultrasound lower extremity: Negative for DVT October 24: White count 9.7 hemoglobin 15.3 platelets 221 d-dimer 1.93 progression 4.2 creatinine 0.71 CRP 5.5 pro-calcitonin 0.08 White count 9.9 hemoglobin 16 platelets 234 d-dimer 0.98 sodium 141 potassium 3.4 creatinine 0.81 Lactic acid 2.9 LDH 1422 CRP 7.5 EKG tracing personally reviewed by me-normal sinus rhythm. Nonspecific ST segment changes. Chest x-ray film personally reviewed by me-bilateral infiltrates Assessment and plan: -Acute severe COVID 19 pneumonitis in a patient who did not take the COVID-19 vaccine:not improving Dexamethasone, vitamin C, vitamin D, zinc. Patient's outside the window for Remdesivir. -Acute hypoxic respiratory failure from COVID-19: Sodium respond intubated October 30. FiO2 55 and a PEEP of 16 -Bilateral pulmonary embolism secondary to COVID-19 Eliquis -Essential hypertension Lopressor 50 mg twice a day, Cozaar 50 mg daily -Diabetes mellitus type 2, on oral hypoglycemic, uncontrolled with hyperglycemia Glucophage thousand milligrams twice a day. Follow Accu-Chek. Precose. Levemir 16 units daily at bedtime -Chronic insomnia for medical conditions Elavil 50 mg daily at bedtime -Hyperlipidemia TriCor 48 mg daily -Obstructive sleep apnea On CPAP at home -Diabetic peripheral neuropathy Lyrica 200 mg twice daily -Full code Drips include : fentanyl Nimbex, propofol . Ventilator. 2 feeding at 25 mL an hour. Remains critical.
[2021-11-01] MEDS: BARICITINIB 2 MG TABLET PO SCH (17:46)
[2021-11-01 18:01] LABS: Glucose,Whole Blood 204 mg/dL (75-99)
[2021-11-01] MEDS: AMITRIPTYLINE HCL 50 MG TAB PO SCH (19:55)
[2021-11-01] MEDS: INSULIN DETEMIR (LEVEMIR) 100 UNIT/ML SYR SQ SCH (21:00)
[2021-11-01] MEDS ORDERED: SODIUM CHLORIDE 0.9% 1,000 ML IV ONE (21:13)
[2021-11-02] MEDS: ARTIFICIAL TEARS-HYPROMELLOSE DROPS 15 ML BTL BOTH EYES SCH ×7 (00:43→23:19)
[2021-11-02 00:53] LABS: Glucose,Whole Blood 197 mg/dL (75-99)
[2021-11-02] MEDS: INSULIN ASPART (NovoLOG) 100 UNIT/ML VIAL SQ SCH ×4 (00:57→17:23)
[2021-11-02] MEDS: fentaNYL (PF). 1,000 MCG in SODIUM CHLORIDE 0.9% 80 ML IV SCH ×4 (02:42→23:18)
[2021-11-02] MEDS: CISATRACURIUM 200 MG in SODIUM CHLORIDE 0.9% 180 ML IV SCH ×2 (02:44→22:33)
[2021-11-02] MEDS: guaiFENesin-Coden 100-10MG/5ML 10 ML CUP PO SCH (04:32)
[2021-11-02 04:48] LABS: Basophils % (A) 0 %; Eosinophils % (A) 1 %; HCT 31.5 % (39.0-53.0); HGB 10.5 gm/dL (13.0-17.5); Lymphocytes # (A) 1.1 k/uL (1.0-4.8); Lymphocytes % (A) 13 %; MCH 32.2 pg (25.0-35.0); MCHC 33.5 g/dL (31.0-37.0); MCV 96.2 fL (80.0-100.0); Mean Platelet Volume 8.4; Monocytes # (A) 0.4 k/uL (0-1.0); Monocytes % (A) 5 %; Neutrophils # (A) 6.4 k/uL (1.3-7.7); Neutrophils % (A) 80 %; Platelet Count 208 k/uL (150-450); Poikilocytosis Slight; RBC 3.27 m/uL (4.30-5.90); RDW 15.1 % (11.5-15.5)
[2021-11-02 05:08] LABS: ALT 31 U/L (4-49); AST 28 U/L (17-59); African American GFR (CKD) >90 (>60 ml/min/1.73 sqM); Albumin 2.5 g/dL (3.5-5.0); Alkaline Phosphatase 66 U/L (38-126); Anion Gap 7 mmol/L; Blood Urea Nitrogen 23 mg/dL (9-20); Calcium 7.6 mg/dL (8.4-10.2); Carbon Dioxide 23 mmol/L (22-30); Chloride 109 mmol/L (98-107); Glucose 205 mg/dL (74-99); Non-African American GFR(CKD) >90 (>60 ml/min/1.73 sqM); Potassium 4.4 mmol/L (3.5-5.1); Sodium 139 mmol/L (137-145); Total Bilirubin 0.4 mg/dL (0.2-1.3); Total Protein 5.3 g/dL (6.3-8.2)
[2021-11-02 05:48] LABS: Glucose,Whole Blood 198 mg/dL (75-99)
[2021-11-02 05:53] LABS: ABG HCO3 26 mmol/L (21-25); ABG Oxygen Saturation 97.2 % (94-97); ABG PCO2 43 mmHg (35-45); ABG PH 7.39 (7.35-7.45); ABG PO2 93 mmHg (83-108); ABG TCO2 27 mmol/L (19-24)
[2021-11-02 05:55] LABS: Allen Test Performed? No
[2021-11-02] MEDS: ACARBOSE 25 MG TAB PO SCH (06:21)
--- NOTE | 2021-11-02 08:15 | XR ---
EXAMINATION TYPE: XR chest 1V portable DATE OF EXAM: 11/02/2021 COMPARISON: Chest x-ray 11/01/2021 HISTORY: Intubated, abnormal chest x-ray TECHNIQUE: Single frontal view of the chest is obtained. FINDINGS: Endotracheal tube, NG tube, left subclavian central venous catheter are noted and are over lying appropriate positions. Bilateral airspace disease shows a similar appearance. No evident pneumo thorax or pleural effusion. Surgical clips are noted in the right neck, there is subcutaneous emphyse ma. There are overlying artifacts. Cardiomediastinal silhouette is unchanged. IMPRESSION: Similar findings to prior exam. Correlate for pneumonia, ARDS
[2021-11-02] MEDS: METOPROLOL TARTRATE 50 MG TAB PO SCH ×2 (08:22→18:50)
[2021-11-02] MEDS: CLOTRIMAZOLE/BETAMETH 1-0.05% CREAM 45 GM TUBE TOPICAL SCH (08:41)
[2021-11-02] MEDS: ZINC SULFATE 220 MG CAP PO SCH (08:42)
[2021-11-02] MEDS: ASCORBIC ACID 500 MG TAB PO SCH (08:42)
[2021-11-02] MEDS: CHLORHEXIDINE GLUCONATE 15 ML CUP MUCOUS MEM SCH ×2 (08:42→21:12)
[2021-11-02] MEDS: DEXAMETHASONE SOD PHOSPHATE 10 MG/ML 1 ML VIAL IVP SCH (08:42)
[2021-11-02] MEDS: APIXABAN 5 MG TAB PO SCH ×2 (08:42→21:12)
[2021-11-02] MEDS: CHOLECALCIFEROL 25 MCG (1000 IU) TABLET PO SCH (08:42)
[2021-11-02] MEDS: PREGABALIN 100 MG CAP PO SCH ×2 (08:42→21:12)
[2021-11-02] MEDS: SERTRALINE 50 MG TAB PO SCH (08:43)
[2021-11-02] MEDS: carBAMazepine 200 MG TAB PO SCH ×2 (08:43→21:13)
[2021-11-02] MEDS: NOREPINEPHRINE 8 MG in SODIUM CHLORIDE 0.9% 250 ML IV SCH (09:04)
[2021-11-02 11:17] LABS: Glucose,Whole Blood 178 mg/dL (75-99)
--- NOTE | 2021-11-02 12:39 | P.PN ---
Subjective Progress Note Date: 11/02/21 Principal diagnosis: Respiratory failure. for monitoring the patient for a follow-up. His night was essentially uneventful. This morning, he remains on propofol running at 50 mcg/kg per minute and the fentanyl is running at 1 mcg/kg/h. The patient is also paralyzed with Nimbex at 1.5 mcg/kg per minute. He remains on a mechanical ventilator. He is on a pressure control mode of mechanical ventilation. He is currently on a pressure control of 20, rate of 32, PEEP is currently at 18 with an FiO2 of 60%. Inspiratory time is at 0.9 seconds. The blood gases from today is showing pH of 7.4 with a pCO2 of 41 and pO2 of 101. The chest x-ray from today is showing no significant interval change. ET tube remains in a good location. The patient has a triple lumen catheter also in place. No evidence of pneumothorax. There is evidence of subcutaneous emphysema. Nevertheless, the patient has developed a significant pneumomediastinum/pneumopericardium. There is emphysema which is subcutaneous and this amount is minimally the neck area. Nevertheless, the patient has significant pneumomediastinum. In terms of his inflammatory markers, the patient's LDH was last checked on 10/26/2021 and it was 1382. His CRP was at 20.8. On his blood work, his white cell count is 11, hemoglobin is at 11.6 and the platelet count is at 203. The rest of the electrolytes and renal function are all within normal limits. The patient continues to be on a combination of Decadron and Baricitinib per protocol. The patient is also on anticoagulation withEliquis as the patient was identified to have some bilateral pulmonary emboli on the CT angiogram of the time of adm ission. The patient is receiving enteral feeding for nutritional support. He is currently on cycle 1.2 at the rate of 29 mL an hour which is currently it is at goal. The blood sugar control as well as Levemir insulin 16 units along with a on a scale coverage. The blood sugar control is adequate for now. In terms of his urine output, he is producing urine output is order of 30 mL an hour. No signs of any significant fluid overload for now. The overall fluid balance has been +1.6 L over the past 24 hours. He is afebrile. He is hemodynamically stable. No other significant events overnight. Progress note dated 11/02/2020. This is a 61-year-old male, who was admitted to the hospital on October 23. He came in with a diagnosis of coronavirus associated pneumonia. He came to the intensive care unit on October 29, and required intubation with mechanical ventilation one day later on the . He remains on the ventilator. He is on the pressure assist control modality, with an inspiratory pressure of 20 cm water, inspiratory time of 0.9 seconds, rate of 28 breaths per minute, and FiO2 of 55%, and a PEEP of 16. Arterial blood gases show pO2 of 93, pCO2 43, and a pH is 7.39. The FiO2 is reduce down to 45%. The patient was also discovered have bilateral pulmonary emboli. The patient's currently on propofol at 50 mcg/kg/m, Nimbex at 1.5 mcg/kg/m, fentanyl 1 mcg/kg/h, saline at 30 mL an hour, and vital AF at 29 mL an hour, which is goal. White count 8, hemoglobin 10.5, hematocrit 31.5, and platelet count 208,000. Sodium 139, potassium 4.4, chlorides 109, CO2 23, anion gap 7, BUN 23, and creatinine 0.52. Chest x-ray shows diffuse bilateral infiltrates. Sputum from October 30 showing group B streptococcus. Objective - Vital Signs Vital signs: Vital Signs Temp 98.5 F 11/02/21 04:00 Pulse 50 L 11/02/21 11:00 Resp 28 H 11/02/21 11:00 BP 101/66 11/02/21 11:00 Pulse Ox 92 L 11/02/21 11:00 Intake & Output 11/01/21 11/02/21 11/02/21 18:59 06:59 18:59 Intake Total 7517.605 0400.478 323.228 Output Total 445 400 145 Balance 915.760 920.478 178.228 Weight 116.8 kg Intake: IV 360 360 0.9 NS KVO 360 360 Intake, IV Titration 561.760 522.478 323.228 Amount Cisatracurium 200 mg In 142.551 96.504 60.376 Sodium Chloride 0.9% 180 ml @ 1 MCG/KG/MIN 4.899 mls/hr IV .Q24H [facility] Rx#: [id number] fentaNYL (PF). 1,000 mcg 131.049 72.669 67.497 In Sodium Chloride 0.9% 80 ml @ 0.5 MCG/KG/HR 4. 082 mls/hr IV .Q24H [facility] Rx#:[id number] propofoL 1,000 mg In 288.16 353.305 195.355 Empty Bag 1 bag @ Titrate IV .Q0M [facility] Rx#: [id number] Tube Feeding 319 348 Other 120 90 Output: Urine 445 400 145 Other: Voiding Method Indwelling Catheter Indwelling Catheter Indwelling Catheter ABP, PAP, CO, CI - Last Documented Arterial Blood Pressure 99/58 - Exam No acute distress, sedated, and paralyzed, with an orally placed endotracheal tube and NG tube. HEENT examination is grossly unremarkable. Neck supple. Full range of motion. No adenopathy thyromegaly or neck vein distention. Cardiovascular examination reveals regular rhythm rate. S1-S2 normal. No S3 or S4. No discernible murmur noted. Heart sounds are distant. Heart rate 50 bpm. Lungs reveal diffuse coarse rhonchi. No wheezes or crackles. Breath sounds equal. Saturations are 92%. Abdomen soft, with bowel sounds. Extremities are intact. No cyanosis clubbing or edema. Skin is without rash or lesion. Neurologic examination cannot be adequately assessed as the patient's currently sedated and paralyzed. - Labs CBC & Chem 7: 11/02/21 04:32 11/02/21 04:32 Labs: Abnormal Lab Results - Last 24 Hours (Table) 11/01/21 11/01/21 11/02/21 Range/Units 12:35 17:59 00:51 RBC (4.30-5.90) m/uL Hgb (13.0-17.5) gm/dL Hct (39.0-53.0) % ABG HCO3 (21-25) mmol/L ABG Total CO2 (19-24) mmol/L ABG O2 Saturation (94-97) % Chloride (98-107) mmol/L BUN (9-20) mg/dL Creatinine (0.66-1.25) mg/dL Glucose (74-99) mg/dL POC Glucose (mg/dL) 183 H 204 H 197 H (75-99) mg/dL Calcium (8.4-10.2) mg/dL Total Protein (6.3-8.2) g/dL Albumin (3.5-5.0) g/dL 11/02/21 11/02/21 11/02/21 Range/Units 04:32 04:32 05:46 RBC 3.27 L (4.30-5.90) m/uL Hgb 10.5 L (13.0-17.5) gm/dL Hct 31.5 L (39.0-53.0) % ABG HCO3 26 H (21-25) mmol/L ABG Total CO2 27 H (19-24) mmol/L ABG O2 Saturation 97.2 H (94-97) % Chloride 109 H (98-107) mmol/L BUN 23 H (9-20) mg/dL Creatinine 0.52 L (0.66-1.25) mg/dL Glucose 205 H (74-99) mg/dL POC Glucose (mg/dL) (75-99) mg/dL Calcium 7.6 L (8.4-10.2) mg/dL Total Protein 5.3 L (6.3-8.2) g/dL Albumin 2.5 L (3.5-5.0) g/dL 11/02/21 11/02/21 Range/Units 05:47 11:14 RBC (4.30-5.90) m/uL Hgb (13.0-17.5) gm/dL Hct (39.0-53.0) % ABG HCO3 (21-25) mmol/L ABG Total CO2 (19-24) mmol/L ABG O2 Saturation (94-97) % Chloride (98-107) mmol/L BUN (9-20) mg/dL Creatinine (0.66-1.25) mg/dL Glucose (74-99) mg/dL POC Glucose (mg/dL) 198 H 178 H (75-99) mg/dL Calcium (8.4-10.2) mg/dL Total Protein (6.3-8.2) g/dL Albumin (3.5-5.0) g/dL Microbiology - Last 24 Hours (Table) 10/30/21 13:45 Gram Stain - Final Sputum Sputum Culture - Final Strep agalactiae - (group b) Assessment and Plan Assessment: Acute hypoxemic respiratory failure secondary to coronavirus associated pneumonia, with intubation and mechanical ventilation on 10/30/2021. Acute bilateral pulmonary emboli, currently on a factor X a inhibitor. Type 2 diabetes mellitus, with diabetic neuropathy. History of hypertension. History of hyperlipidemia. History of obstructive sleep apnea syndrome, with previous UPPP. History of right eye melanoma. History of CVA. History of rheumatoid arthritis. History of gout. Prior history of MRSA infection. Mild lactic acidosis, resolved. Elevated inflammatory marker secondary to coronavirus infection. BPH, previous TURP. Pneumomediastinum and subcutaneous emphysema, as a complication of coronavirus associated infection/pneumonia. Plan: Plan dated 11/02/2021. The patient's medications, labs, and x-rays all reviewed. The patient's FiO2 was reduced from 55%, down to 45%. The patient remains on propofol, Nimbex, and fentanyl. The patient is receiving tube feeds. The patient remains on blood thinner for the patient's bilateral pulmonary emboli. The patient continues on vitamins, Decadron, and AGATHA. The patient's overall prognosis remains extremely guarded. We will continue to follow make recommendations where appropriate. Time with Patient: Greater than 30
--- NOTE | 2021-11-02 14:08 | P.PN ---
Progress Note - Text Progress Note Date: 11/02/21 Chief Complaint: Short of breath This is a pleasant 61-year-old patient, chronic stable medical conditions include diabetes, hypertension, hyperlipidemia, osteoarthritis, peripheral neuropathy, chronic gout. Patient presents with increasing shortness of breath. Cough. Clear sputum. Fever and chills. Tired rundown decrease appetite and diarrhea about 2 times a day. Patient tested positive for COVID-19 on October 09. His initial rapid COVID-19 was negative. In the send out came back positive. Patient did not take the vaccine against COVID-19. He is on 8 L of oxygen this morning. He is outside the window for Remdesivir. Admitted with COVID 19 pneumonitis, acute hypoxic respiratory failure. Started on Decadron. IV fluids. October 24: Feeling a bit better. Short of breath. 92% on 11 L. Did eat some. Sitting at the edge of the bed. A bit tired October 25: Short of breath. Cough. Oral intake fair. On 11 L of nasal cannula. Did sit up in a chair. October 26: Short of breath. Oral intake fair. Cough. 11 L nasal cannula. Dexamethasone. Chest CTA showing bilateral pulmonary embolism. October 27: Short of breath. Eating fair. 15 L nasal cannula. Tired. October 28: Remains on 15 L of nasal cannula. Eating about 50%. Short of breath. Tired. Trying to change his positions in bed. Including prone. October 29: Patient more short of breath and tired. Pulse oxing 87% on 15 L. Laying in bed. Eating around 50%. Late in the afternoon seen by pulmonary and patient be moved to ICU. October 30: Patient moved to ICU yesterday. Because of more respiratory compromise. Intubated earlier today. Drips include Diprivan, fentanyl, Nimbex, Levophed. Sinus rhythm. FiO2 19 a PEEP of 18. October 31: ICU: Ventilator/FiO2 19 a PEEP of 18. Drips include MX, propofol, fentanyl. Epinephrine. November 01: ICU: On the ventilator FiO2 55 PEEP of 16. Drips included propofol, Nimbex, fentanyl. 2 feeding at 29 mL an hour. November 02: ICU. Ventilator 45/16. Drips include fentanyl, propofol, Nimbex. 2 feeding at 20 mL an hour. Review of systems: Intubated Active Medications Acetaminophen (Acetaminophen Tab 325 Mg Tab) 650 mg PO Q6HR PRN PRN Reason: Mild Pain or Fever > 100.5 Last Admin: 10/29/21 15:46 Dose: 650 mg Documented by: Albuterol Sulfate (Albuterol Hfa Inhaler) 2 puff INHALATION RT-QID PRN PRN Reason: Shortness Of Breath Last Admin: 11/01/21 20:29 Dose: 2 puff Documented by: Apixaban (Apixaban 5 Mg Tab) 5 mg PO BID [facility]; Protocol Last Admin: 11/02/21 08:42 Dose: 5 mg Documented by: Artificial Tears (Artificial Tears-Hypromellose Drops 15 Ml Btl) 2 drops BOTH EYES Q4HR [facility] Last Admin: 11/02/21 12:15 Dose: 2 drops Documented by: Ascorbic Acid (Ascorbic Acid 500 Mg Tab) 1,000 mg PO DAILY [facility] Last Admin: 11/02/21 08:42 Dose: 1,000 mg Documented by: Baricitinib (Baricitinib 2 Mg Tablet) 4 mg PO DAILY@1500 [facility] Stop: 11/11/21 15:01 Last Admin: 11/01/21 17:46 Dose: 4 mg Documented by: Carbamazepine (Carbamazepine 200 Mg Tab) 400 mg PO BID [facility] Last Admin: 11/02/21 08:43 Dose: 400 mg Documented by: Chlorhexidine Gluconate (Chlorhexidine Gluconate 15 Ml Cup) 15 ml MUCOUS MEM BID [facility] Last Admin: 11/02/21 08:42 Dose: 15 ml Documented by: Cholecalciferol (Cholecalciferol 25 Mcg (1000 Iu) Tablet) 25 mcg PO DAILY [facility] Last Admin: 11/02/21 08:42 Dose: 25 mcg Documented by: Dexamethasone Sodium Phosphate (Dexamethasone Sod Phosphate 10 Mg/Ml 1 Ml Vial) 6 mg IVP DAILY [facility] Propofol 1,000 mg/ IV Solution 100 mls @ 0 mls/hr IV .Q0M [facility]; Protocol Last Admin: 11/02/21 12:14 Dose: 50 mcg/kg/min, 35.04 mls/hr Documented by: Cisatracurium Besylate 200 mg/ (Sodium Chloride) 200 mls @ 4.899 mls/hr IV .Q24H [facility]; Protocol Last Titration: 11/02/21 11:45 Dose: 1.5 mcg/kg/min, 7.348 mls/hr Documented by: Fentanyl Citrate 1,000 mcg/ (Sodium Chloride) 100 mls @ 4.082 mls/hr IV .Q24H [facility]; Protocol Last Admin: 11/02/21 10:58 Dose: 1 mcg/kg/hr, 8.165 mls/hr Documented by: Insulin Aspart (Insulin Aspart (Novolog) 100 Unit/Ml Vial) 0 unit SQ Q6HR [facility]; Protocol Last Admin: 11/02/21 12:14 Dose: 4 unit Documented by: Insulin Detemir (Insulin Detemir (Levemir) 100 Unit/Ml Syr) 16 unit SQ HS [facility] Last Admin: 11/01/21 21:00 Dose: 16 unit Documented by: Metoprolol Tartrate (Metoprolol Tartrate 50 Mg Tab) 50 mg PO BID [facility] Last Admin: 11/02/21 08:22 Dose: Not Given Documented by: Pregabalin (Pregabalin 100 Mg Cap) 200 mg PO BID [facility] Last Admin: 11/02/21 08:42 Dose: 200 mg Documented by: Sertraline HCl (Sertraline 50 Mg Tab) 50 mg PO DAILY [facility] Last Admin: 11/02/21 08:43 Dose: 50 mg Documented by: Zinc Sulfate (Zinc Sulfate 220 Mg Cap) 220 mg PO DAILY [facility] Last Admin: 11/02/21 08:42 Dose: 220 mg Documented by: Social history: Patient is on Social Security. Does not smoke or drink alcohol. Patient's daughters family lives with him. Family history: Father at the age of 40 with heart attack Physical examination: VITAL SIGNS: Afebrile 54, 28, 125/80, 95% on the ventilator GENERAL: Laying in bed, intubated LUNGS: Respiratory rate increased,. PSYCH: Unable to assess Rest of the exam per nursing and pulmonary INVESTIGATIONS, reviewed in the clinical context: November 02: White count 8 hemoglobin 10.5 potassium 4.4. 23 creatinine 0.5 to November 01: White count 11.1 hemoglobin 11.6 platelets 203 d-dimer 10.6 potassium 4.7 creatinine 0.73 October 31: White count 12.1 hemoglobin 12.2 platelets 240 potassium 4.8 creatinine 0.61 October 30: White count 12.9 hemoglobin 13.1 potassium 5.6 creatinine 0.69 October 29: White count 13.1 hemoglobin 13.8 d-dimer 16.2 potassium 4.7 creatinine 0.76 October 28: D-dimer 13.4 to October 26: D-dimer 8.48 CRP 24 Chest CTA [October 26: biLateral pulmonary embolism Doppler ultrasound lower extremity: Negative for DVT October 24: White count 9.7 hemoglobin 15.3 platelets 221 d-dimer 1.93 progression 4.2 creatinine 0.71 CRP 5.5 pro-calcitonin 0.08 White count 9.9 hemoglobin 16 platelets 234 d-dimer 0.98 sodium 141 potassium 3.4 creatinine 0.81 Lactic acid 2.9 LDH 1422 CRP 7.5 EKG tracing personally reviewed by me-normal sinus rhythm. Nonspecific ST segment changes. Chest x-ray film personally reviewed by me-bilateral infiltrates Assessment and plan: -Acute severe COVID 19 pneumonitis in a patient who did not take the COVID-19 vaccine:not improving Dexamethasone, vitamin C, vitamin D, zinc. Patient's outside the window for Remdesivir. -Acute hypoxic respiratory failure from COVID-19: Slow to respond intubated October 30. FiO2 45 and a PEEP of 16 -Bilateral pulmonary embolism secondary to COVID-19 Eliquis -Essential hypertension Lopressor 50 mg twice a day, Cozaar 50 mg daily -Diabetes mellitus type 2, on oral hypoglycemic, uncontrolled with hyperglycemia Glucophage thousand milligrams twice a day. Follow Accu-Chek. Precose. Levemir 20 units daily at bedtime -Chronic insomnia for medical conditions Elavil 50 mg daily at bedtime -Hyperlipidemia TriCor 48 mg daily -Obstructive sleep apnea On CPAP at home -Diabetic peripheral neuropathy Lyrica 200 mg twice daily -Full code Drips include : fentanyl Nimbex, propofol . Ventilator. 2 feeding at 20 mL an hour. Increase Levemir to 20 units daily at bedtime. Medications to continue. Critical.
[2021-11-02] MEDS: BARICITINIB 2 MG TABLET PO SCH (16:27)
[2021-11-02 17:23] LABS: Glucose,Whole Blood 159 mg/dL (75-99)
[2021-11-02] MEDS: INSULIN DETEMIR (LEVEMIR) 100 UNIT/ML SYR SQ SCH (21:02)
[2021-11-02 23:47] LABS: Glucose,Whole Blood 156 mg/dL (75-99)
[2021-11-03] MEDS: ARTIFICIAL TEARS-HYPROMELLOSE DROPS 15 ML BTL BOTH EYES SCH ×6 (03:03→23:00)
[2021-11-03 05:10] LABS: Basophils # (A) 0.1 k/uL (0-0.2); Basophils % (A) 1 %; Eosinophils # (A) 0.1 k/uL (0-0.7); Eosinophils % (A) 1 %; Lymphocytes # (A) 1.7 k/uL (1.0-4.8); Lymphocytes % (A) 15 %; MCH 31.9 pg (25.0-35.0); MCHC 32.5 g/dL (31.0-37.0); MCV 98.3 fL (80.0-100.0); Mean Platelet Volume 8.6; Monocytes # (A) 0.5 k/uL (0-1.0); Monocytes % (A) 4 %; Neutrophils # (A) 9.3 k/uL (1.3-7.7); Neutrophils % (A) 78 %; Platelet Count 266 k/uL (150-450); Poikilocytosis Slight; RBC 3.77 m/uL (4.30-5.90); RDW 14.9 % (11.5-15.5); WBC 11.9 k/uL (3.8-10.6)
[2021-11-03 05:22] LABS: ALT 64 U/L (4-49); AST 63 U/L (17-59); African American GFR (CKD) >90 (>60 ml/min/1.73 sqM); Albumin 2.7 g/dL (3.5-5.0); Alkaline Phosphatase 87 U/L (38-126); Anion Gap 7 mmol/L; Blood Urea Nitrogen 20 mg/dL (9-20); Calcium 7.8 mg/dL (8.4-10.2); Carbon Dioxide 26 mmol/L (22-30); Chloride 105 mmol/L (98-107); Glucose 166 mg/dL (74-99); Non-African American GFR(CKD) >90 (>60 ml/min/1.73 sqM); Potassium 4.2 mmol/L (3.5-5.1); Sodium 138 mmol/L (137-145); Total Bilirubin 0.8 mg/dL (0.2-1.3); Total Protein 5.7 g/dL (6.3-8.2)
[2021-11-03 05:42] LABS: ABG Base Excess 1.6 mmol/L; ABG HCO3 28 mmol/L (21-25); ABG Oxygen Saturation 91.4 % (94-97); ABG PCO2 57 mmHg (35-45); ABG PO2 67 mmHg (83-108); ABG TCO2 30 mmol/L (19-24); Allen Test Performed? Yes
[2021-11-03 05:48] LABS: Glucose,Whole Blood 170 mg/dL (75-99)
[2021-11-03] MEDS: INSULIN ASPART (NovoLOG) 100 UNIT/ML VIAL SQ SCH ×5 (06:21→23:03)
[2021-11-03] MEDS: carBAMazepine 200 MG TAB PO SCH ×2 (08:04→21:19)
[2021-11-03] MEDS: ASCORBIC ACID 500 MG TAB PO SCH (08:04)
[2021-11-03] MEDS: CHOLECALCIFEROL 25 MCG (1000 IU) TABLET PO SCH (08:04)
[2021-11-03] MEDS: CHLORHEXIDINE GLUCONATE 15 ML CUP MUCOUS MEM SCH ×2 (08:04→20:25)
[2021-11-03] MEDS: SERTRALINE 50 MG TAB PO SCH (08:04)
[2021-11-03] MEDS: APIXABAN 5 MG TAB PO SCH ×2 (08:04→20:25)
[2021-11-03] MEDS: PREGABALIN 100 MG CAP PO SCH ×2 (08:05→20:27)
[2021-11-03] MEDS: DEXAMETHASONE SOD PHOSPHATE 10 MG/ML 1 ML VIAL IVP SCH (08:05)
[2021-11-03] MEDS: METOPROLOL TARTRATE 50 MG TAB PO SCH ×2 (08:06→19:42)
[2021-11-03] MEDS: ZINC SULFATE 220 MG CAP PO SCH (08:06)
--- NOTE | 2021-11-03 08:39 | XR ---
EXAMINATION TYPE: XR chest 1V portable DATE OF EXAM: 11/03/2021 COMPARISON: Chest x-ray 11/02/2021 HISTORY: Intubated TECHNIQUE: Single frontal view of the chest is obtained. FINDINGS: Endotracheal tube, left-sided subclavian central venous catheter, NG tube are again noted and are overlying appropriate positions. Bilateral airspace disease shows a similar appearance, subcu taneous emphysema is noted over the neck, surgical clips are present over the right neck. There are o verlying artifacts. Cardiac mediastinal silhouette is stable, patient is rotated. No evident pneumoth orax or pleural effusion. IMPRESSION: Findings are similar to prior exam. Correlate for pneumonia, edema, ARDS
[2021-11-03] MEDS: fentaNYL (PF). 1,000 MCG in SODIUM CHLORIDE 0.9% 80 ML IV SCH ×4 (11:02→21:06)
[2021-11-03] MEDS: PIPERACILLIN-TAZOBACTAM 3.375 GM in SODIUM CHLORIDE 0.9% 100 ML IVPB SCH ×3 (11:03→23:06)
--- NOTE | 2021-11-03 11:13 | P.PN ---
Subjective Progress Note Date: 11/03/21 Principal diagnosis: The patient is seen today 11/03/2021 in follow-up in the intensive care unit. He was admitted on 10/23/2021. The patient had developed ongoing toxic respira tory failure secondary to COVID-19 pneumonia requiring eventual intubation mechanical ventilatory support on 10/30/2021. He remains intubated on mechanical ventilator. He is currently in a chair control mode with a Pi of 20 and a Ti of 0.9. Rate is 28. FiO2 is 45% and a PEEP is 16. Morning blood gases revealed a PaO2 of 67, pCO2 of 57 and a pH of 7.30. Chest x-ray continues to show bilateral patchy infiltrates. NG tube was in a similar location per respiratory therapy. Left subclavian triple lumen catheter in place. No evidence of pneumothorax. He remains sedated on propofol 50 mcg/kg/m. Paralyzed on Nimbex at 1.5 mcg/kg/m. He is on fentanyl at 2 mcg/h. 0.9 normal saline at 30 mL per hour. He is being nourished with vital AF at 29 MLS per hour which is goal. He is continued on Decadron, Eliquis, vitamin supplements. He is on Baricitinib. Sputum cultures now positive for strep agalactiae group B. He remains in a positive-100 ML balance. His been afebrile. Not requiring any pressors. White count 11.9. Hemoglobin 12.0. Platelets 266. Leukocytes 1.7. Sodium 138. Potassium 4.5. Creatinine 0.55. Glucose 166. AST 63. ALT 64. Objective - Vital Signs Vital signs: Vital Signs Temp 98.6 F 11/03/21 08:00 Pulse 60 11/03/21 10:00 Resp 0 L 11/03/21 10:00 BP 103/68 11/03/21 10:00 Pulse Ox 92 L 11/03/21 10:00 Intake & Output 11/02/21 11/03/21 11/03/21 18:59 06:59 18:59 Intake Total 580.136 884.944 413.001 Output Total 430 448 130 Balance 150.136 436.944 283.001 Weight 120 kg Intake: IV 220 80 0.9 NS KVO 220 80 Intake, IV Titration 580.136 547.944 246.001 Amount Cisatracurium 200 mg In 60.376 79.358 85.849 Sodium Chloride 0.9% 180 ml @ 1 MCG/KG/MIN 4.899 mls/hr IV .Q24H [facility] Rx#: [id number] Piperacillin-Tazobactam 3 100 .375 gm In Sodium Chloride 0.9% 100 ml @ 25 mls/hr IVPB Q8HR [facility] Rx# :[id number] fentaNYL (PF). 1,000 mcg 146.285 154.706 In Sodium Chloride 0.9% 80 ml @ 0.5 MCG/KG/HR 4. 082 mls/hr IV .Q24H [facility] Rx#:[id number] propofoL 1,000 mg In 373.475 313.880 60.152 Empty Bag 1 bag @ Titrate IV .Q0M [facility] Rx#: [id number] Tube Feeding 87 87 Other 30 Output: Urine 430 448 130 Other: Voiding Method Indwelling Catheter Indwelling Catheter Indwelling Catheter ABP, PAP, CO, CI - Last Documented Arterial Blood Pressure 106/59 - Exam GENERAL EXAM: Intubated, sedated, paralyzed 61-year-old male patient on the mechanical ventilator with FiO2 of 45% and a PEEP of 16. HEAD: Normocephalic. EYES: Sluggish reaction of pupils, equal size. NOSE: Clear with pink turbinates. THROAT: Oral endotracheal and gastric tube secured in place. No erythema or exudates. NECK: No masses, no JVD. CHEST: No chest wall deformity. LUNGS: Equal air entry with coarse crackles in the posterior bases. CVS: S1 and S2 normal with no audible murmur, regular rhythm. ABDOMEN: No hepatosplenomegaly, normal bowel sounds, no guarding or rigidity. SPINE: No scoliosis or deformity SKIN: No rashes CENTRAL NERVOUS SYSTEM: Sedated, paralyzed, tone is normal in all 4 extremities. EXTREMITIES: There is no peripheral edema. No clubbing, no cyanosis. Peripheral pulses are intact. - Labs CBC & Chem 7: 11/03/21 04:12 11/03/21 04:12 Labs: Abnormal Lab Results - Last 24 Hours (Table) 11/02/21 11/02/21 11/02/21 Range/Units 11:14 17:21 23:45 WBC (3.8-10.6) k/uL RBC (4.30-5.90) m/uL Hgb (13.0-17.5) gm/dL Hct (39.0-53.0) % Neutrophils # (1.3-7.7) k/uL ABG pH (7.35-7.45) ABG pCO2 (35-45) mmHg ABG pO2 (83-108) mmHg ABG HCO3 (21-25) mmol/L ABG Total CO2 (19-24) mmol/L ABG O2 Saturation (94-97) % Creatinine (0.66-1.25) mg/dL Glucose (74-99) mg/dL POC Glucose (mg/dL) 178 H 159 H 156 H (75-99) mg/dL Calcium (8.4-10.2) mg/dL AST (17-59) U/L ALT (4-49) U/L Total Protein (6.3-8.2) g/dL Albumin (3.5-5.0) g/dL 11/03/21 11/03/21 11/03/21 Range/Units 04:12 04:12 05:40 WBC 11.9 H (3.8-10.6) k/uL RBC 3.77 L (4.30-5.90) m/uL Hgb 12.0 L (13.0-17.5) gm/dL Hct 37.0 L (39.0-53.0) % Neutrophils # 9.3 H (1.3-7.7) k/uL ABG pH 7.30 L (7.35-7.45) ABG pCO2 57 H (35-45) mmHg ABG pO2 67 L (83-108) mmHg ABG HCO3 28 H (21-25) mmol/L ABG Total CO2 30 H (19-24) mmol/L ABG O2 Saturation 91.4 L (94-97) % Creatinine 0.55 L (0.66-1.25) mg/dL Glucose 166 H (74-99) mg/dL POC Glucose (mg/dL) (75-99) mg/dL Calcium 7.8 L (8.4-10.2) mg/dL AST 63 H (17-59) U/L ALT 64 H (4-49) U/L Total Protein 5.7 L (6.3-8.2) g/dL Albumin 2.7 L (3.5-5.0) g/dL 11/03/21 Range/Units 05:45 WBC (3.8-10.6) k/uL RBC (4.30-5.90) m/uL Hgb (13.0-17.5) gm/dL Hct (39.0-53.0) % Neutrophils # (1.3-7.7) k/uL ABG pH (7.35-7.45) ABG pCO2 (35-45) mmHg ABG pO2 (83-108) mmHg ABG HCO3 (21-25) mmol/L ABG Total CO2 (19-24) mmol/L ABG O2 Saturation (94-97) % Creatinine (0.66-1.25) mg/dL Glucose (74-99) mg/dL POC Glucose (mg/dL) 170 H (75-99) mg/dL Calcium (8.4-10.2) mg/dL AST (17-59) U/L ALT (4-49) U/L Total Protein (6.3-8.2) g/dL Albumin (3.5-5.0) g/dL Microbiology - Last 24 Hours (Table) 10/30/21 13:45 Gram Stain - Final Sputum Sputum Culture - Final Strep agalactiae - (group b) Assessment and Plan Assessment: 1 Acute hypoxic respiratory failure related to acute COVID-19 related pneumonia, patient presented to the emergency department on 10/23/2021 with 2 week history of symptoms, patient is outside the window for Remdesivir, he is a non-vaccinated adult. Initiated on Baricitinib. The patient developed acute hypoxemic respiratory failure requiring intubation mechanical ventilatory support on 10/30/2021. The patient sputum culture is now positive for strep agalactiae group B. Baricitinib discontinued today on 11/03/2021. Initiated on Zosyn. 2 Bilateral pulmonary emboli on computed tomography scan 10/26/2021. Continued on Eliquis. 3 Diabetes mellitus type 2 with diabetic neuropathy 4 Hypertension 5 Hyperlipidemia 6 Obstructive sleep apnea with previous history of UPPP 7 History of right eye melanoma with multiple surgeries 8 Previous history of CVA 9 Rheumatoid arthritis 10 History of gout 11 Previous history of MRSA infection in the wound on his back 12 Mild lactic acidosis, improved with IV hydration 13 Elevated inflammatory markers related to acute COVID-19 pneumonia 14 BPH with previous history of TURP Plan: The patient was seen and evaluated Chest x-ray, ABGs and labs reviewed Decrease the PEEP to 12 Sputum now positive for strep agalactiae group B Discontinue Baricitinib Initiate Zosyn Continue Decadron, Eliquis, vitamin supplements Prognosis is guarded We'll continue to follow Critical care time 38 minutes I, the cosigning physician, performed a history & physical examination of the patient. Lungs sounds are coarse crackles in the bilateral bases. Maintaining O2 saturations in the 90s on the mechanical ventilator with an FiO2 of 45% and a PEEP of 12. I discussed the assessment and plan of care with my nurse practitioner, Jenna Batres. I attest to the above note as dictated by her.
[2021-11-03 11:26] LABS: Glucose,Whole Blood 148 mg/dL (75-99)
[2021-11-03 17:10] LABS: Glucose,Whole Blood 179 mg/dL (75-99)
--- NOTE | 2021-11-03 18:37 | P.PN ---
Progress Note - Text Progress Note Date: 11/03/21 Chief Complaint: Short of breath This is a pleasant 61-year-old patient, chronic stable medical conditions include diabetes, hypertension, hyperlipidemia, osteoarthritis, peripheral neuropathy, chronic gout. Patient presents with increasing shortness of breath. Cough. Clear sputum. Fever and chills. Tired rundown decrease appetite and diarrhea about 2 times a day. Patient tested positive for COVID-19 on October 09. His initial rapid COVID-19 was negative. In the send out came back positive. Patient did not take the vaccine against COVID-19. He is on 8 L of oxygen this morning. He is outside the window for Remdesivir. Admitted with COVID 19 pneumonitis, acute hypoxic respiratory failure. Started on Decadron. IV fluids. October 24: Feeling a bit better. Short of breath. 92% on 11 L. Did eat some. Sitting at the edge of the bed. A bit tired October 25: Short of breath. Cough. Oral intake fair. On 11 L of nasal cannula. Did sit up in a chair. October 26: Short of breath. Oral intake fair. Cough. 11 L nasal cannula. Dexamethasone. Chest CTA showing bilateral pulmonary embolism. October 27: Short of breath. Eating fair. 15 L nasal cannula. Tired. October 28: Remains on 15 L of nasal cannula. Eating about 50%. Short of breath. Tired. Trying to change his positions in bed. Including prone. October 29: Patient more short of breath and tired. Pulse oxing 87% on 15 L. Laying in bed. Eating around 50%. Late in the afternoon seen by pulmonary and patient be moved to ICU. October 30: Patient moved to ICU yesterday. Because of more respiratory compromise. Intubated earlier today. Drips include Diprivan, fentanyl, Nimbex, Levophed. Sinus rhythm. FiO2 19 a PEEP of 18. October 31: ICU: Ventilator/FiO2 19 a PEEP of 18. Drips include MX, propofol, fentanyl. Epinephrine. November 01: ICU: On the ventilator FiO2 55 PEEP of 16. Drips included propofol, Nimbex, fentanyl. 2 feeding at 29 mL an hour. November 02: ICU. Ventilator 45/16. Drips include fentanyl, propofol, Nimbex. 2 feeding at 20 mL an hour. November 03: ICU. Ventilator 45/12. Drips include fentanyl, propofol. 2 feeding at 29 mL an hour. Review of systems: Intubated Active Medications Acetaminophen (Acetaminophen Tab 325 Mg Tab) 650 mg PO Q6HR PRN PRN Reason: Mild Pain or Fever > 100.5 Last Admin: 10/29/21 15:46 Dose: 650 mg Documented by: Albuterol Sulfate (Albuterol Hfa Inhaler) 2 puff INHALATION RT-QID PRN PRN Reason: Shortness Of Breath Last Admin: 11/01/21 20:29 Dose: 2 puff Documented by: Apixaban (Apixaban 5 Mg Tab) 5 mg PO BID [facility]; Protocol Last Admin: 11/03/21 08:04 Dose: 5 mg Documented by: Artificial Tears (Artificial Tears-Hypromellose Drops 15 Ml Btl) 2 drops BOTH EYES Q4HR [facility] Last Admin: 11/03/21 15:42 Dose: 2 drops Documented by: Ascorbic Acid (Ascorbic Acid 500 Mg Tab) 1,000 mg PO DAILY [facility] Last Admin: 11/03/21 08:04 Dose: 1,000 mg Documented by: Carbamazepine (Carbamazepine 200 Mg Tab) 400 mg PO BID [facility] Last Admin: 11/03/21 08:04 Dose: 400 mg Documented by: Chlorhexidine Gluconate (Chlorhexidine Gluconate 15 Ml Cup) 15 ml MUCOUS MEM BID [facility] Last Admin: 11/03/21 08:04 Dose: 15 ml Documented by: Cholecalciferol (Cholecalciferol 25 Mcg (1000 Iu) Tablet) 25 mcg PO DAILY [facility] Last Admin: 11/03/21 08:04 Dose: 25 mcg Documented by: Dexamethasone Sodium Phosphate (Dexamethasone Sod Phosphate 10 Mg/Ml 1 Ml Vial) 6 mg IVP DAILY [facility] Last Admin: 11/03/21 08:05 Dose: 6 mg Documented by: Propofol 1,000 mg/ IV Solution 100 mls @ 0 mls/hr IV .Q0M [facility]; Protocol Last Admin: 11/03/21 16:52 Dose: 50 mcg/kg/min, 36 mls/hr Documented by: Fentanyl Citrate 1,000 mcg/ (Sodium Chloride) 100 mls @ 4.082 mls/hr IV .Q24H [facility]; Protocol Last Admin: 11/03/21 17:35 Dose: 2.5 mcg/kg/hr, 20.412 mls/hr Documented by: Piperacillin Sod/Tazobactam (Sod 3.375 gm/ Sodium Chloride) 100 mls @ 25 mls/hr IVPB Q8HR [facility] Last Admin: 11/03/21 16:46 Dose: 25 mls/hr Documented by: Insulin Aspart (Insulin Aspart (Novolog) 100 Unit/Ml Vial) 0 unit SQ Q6HR [facility]; Protocol Last Admin: 11/03/21 17:35 Dose: 4 unit Documented by: Insulin Detemir (Insulin Detemir (Levemir) 100 Unit/Ml Syr) 20 unit SQ HS [facility] Last Admin: 11/02/21 21:02 Dose: 20 unit Documented by: Metoprolol Tartrate (Metoprolol Tartrate 50 Mg Tab) 50 mg PO BID [facility] Last Admin: 11/03/21 08:06 Dose: Not Given Documented by: Pregabalin (Pregabalin 100 Mg Cap) 200 mg PO BID [facility] Last Admin: 11/03/21 08:05 Dose: 200 mg Documented by: Sertraline HCl (Sertraline 50 Mg Tab) 50 mg PO DAILY [facility] Last Admin: 11/03/21 08:04 Dose: 50 mg Documented by: Zinc Sulfate (Zinc Sulfate 220 Mg Cap) 220 mg PO DAILY [facility] Last Admin: 11/03/21 08:06 Dose: 220 mg Documented by: Social history: Patient is on Social Security. Does not smoke or drink alcohol. Patient's daughters family lives with him. Family history: Father at the age of 40 with heart attack Physical examination: VITAL SIGNS: 98.8, 62, 16, 103/68, 94% on the ventilator GENERAL: Laying in bed, intubated LUNGS: Respiratory rate increased,. PSYCH: Unable to assess Rest of the exam per nursing and pulmonary INVESTIGATIONS, reviewed in the clinical context: November 03: White count 11.9 hemoglobin 12 platelets 266 potassium 4.2 creatinine 0.55 AST 63 ALT 64 pro-calcitonin 0.12 November 02: White count 8 hemoglobin 10.5 potassium 4.4. 23 creatinine 0.5 to November 01: White count 11.1 hemoglobin 11.6 platelets 203 d-dimer 10.6 potassium 4.7 creatinine 0.73 October 31: White count 12.1 hemoglobin 12.2 platelets 240 potassium 4.8 creatinine 0.61 October 30: White count 12.9 hemoglobin 13.1 potassium 5.6 creatinine 0.69 October 29: White count 13.1 hemoglobin 13.8 d-dimer 16.2 potassium 4.7 creatinine 0.76 October 28: D-dimer 13.4 to October 26: D-dimer 8.48 CRP 24 Chest CTA [October 26: biLateral pulmonary embolism Doppler ultrasound lower extremity: Negative for DVT October 24: White count 9.7 hemoglobin 15.3 platelets 221 d-dimer 1.93 progression 4.2 creatinine 0.71 CRP 5.5 pro-calcitonin 0.08 White count 9.9 hemoglobin 16 platelets 234 d-dimer 0.98 sodium 141 potassium 3.4 creatinine 0.81 Lactic acid 2.9 LDH 1422 CRP 7.5 EKG tracing personally reviewed by me-normal sinus rhythm. Nonspecific ST segment changes. Chest x-ray film personally reviewed by me-bilateral infiltrates Assessment and plan: -Acute severe COVID 19 pneumonitis in a patient who did not take the COVID-19 vaccine:not improving Dexamethasone, vitamin C, vitamin D, zinc. Patient's outside the window for Remdesivir. -Acute hypoxic respiratory failure from COVID-19: Slow to respond intubated October 30. FiO2 45 and a PEEP of 12 -Bilateral pulmonary embolism secondary to COVID-19 Eliquis -Essential hypertension Lopressor 50 mg twice a day, Cozaar 50 mg daily -Diabetes mellitus type 2, on oral hypoglycemic, uncontrolled with hyperglycemia Glucophage thousand milligrams twice a day. Follow Accu-Chek. Precose. Levemir 20 units daily at bedtime -Chronic insomnia for medical conditions Elavil 50 mg daily at bedtime -Hyperlipidemia TriCor 48 mg daily -Obstructive sleep apnea On CPAP at home -Diabetic peripheral neuropathy Lyrica 200 mg twice daily -Full code Drips include : fentanyl , propofol . Ventilator. 2 feeding at 29 mL an hour. Medications to continue.
[2021-11-03] MEDS: INSULIN DETEMIR (LEVEMIR) 100 UNIT/ML SYR SQ SCH (20:25)
[2021-11-03 23:02] LABS: Glucose,Whole Blood 152 mg/dL (75-99)
--- NOTE | 2021-11-03 23:42 | XR ---
EXAMINATION TYPE: XR chest 1V portable DATE OF EXAM: 11/03/2021 COMPARISON: Today HISTORY: Respiratory failure. Tube placement. TECHNIQUE: FINDINGS: There is endotracheal tube 3.5 cm from the dennis. There is left subclavian catheter with t ip in the superior vena cava. There is moderate pulmonary interstitial and airspace edema. Heart is s lightly enlarged. There is no pleural effusion. There is mild soft tissue air at the base of the neck . There surgical clips at the base of the neck on the right side. IMPRESSION: Pulmonary edema without change. Mild soft tissue air at the base of the neck unchanged.
[2021-11-04] MEDS ORDERED: CISATRACURIUM 2 MG/ML 5 ML VIAL IV ONE (00:09)
[2021-11-04] MEDS: fentaNYL (PF). 1,000 MCG in SODIUM CHLORIDE 0.9% 80 ML IV SCH ×6 (00:28→21:24)
[2021-11-04] MEDS: CISATRACURIUM 200 MG in SODIUM CHLORIDE 0.9% 180 ML IV SCH ×2 (00:35→19:07)
[2021-11-04] MEDS: METOPROLOL TARTRATE 50 MG TAB PO SCH ×3 (01:55→22:01)
[2021-11-04] MEDS: INSULIN ASPART (NovoLOG) 100 UNIT/ML VIAL SQ SCH ×4 (04:10→17:59)
[2021-11-04] MEDS: ARTIFICIAL TEARS-HYPROMELLOSE DROPS 15 ML BTL BOTH EYES SCH ×5 (04:11→21:07)
[2021-11-04 05:09] LABS: African American GFR (CKD) >90 (>60 ml/min/1.73 sqM); Anion Gap 4 mmol/L; Blood Urea Nitrogen 15 mg/dL (9-20); Carbon Dioxide 28 mmol/L (22-30); Chloride 107 mmol/L (98-107); Glucose 178 mg/dL (74-99); Non-African American GFR(CKD) >90 (>60 ml/min/1.73 sqM); Potassium 4.6 mmol/L (3.5-5.1); Sodium 139 mmol/L (137-145)
[2021-11-04 05:24] LABS: Basophils # (A) 0.1 k/uL (0-0.2); Basophils % (A) 0 %; Eosinophils # (A) 0.1 k/uL (0-0.7); Eosinophils % (A) 1 %; HCT 36.1 % (39.0-53.0); HGB 11.6 gm/dL (13.0-17.5); Hypochromasia Slight; Lymphocytes # (A) 0.9 k/uL (1.0-4.8); Lymphocytes % (A) 7 %; MCH 32.5 pg (25.0-35.0); MCHC 32.2 g/dL (31.0-37.0); Macrocytosis Slight; Monocytes # (A) 0.6 k/uL (0-1.0); Monocytes % (A) 5 %; Neutrophils # (A) 11.3 k/uL (1.3-7.7); Neutrophils % (A) 86 %; Platelet Count 241 k/uL (150-450); Poikilocytosis Slight; RBC 3.58 m/uL (4.30-5.90); WBC 13.1 k/uL (3.8-10.6)
[2021-11-04 05:45] LABS: Glucose,Whole Blood 146 mg/dL (75-99)
[2021-11-04 05:47] LABS: ABG Base Excess 2.3 mmol/L; ABG HCO3 30 mmol/L (21-25); ABG Oxygen Saturation 97.9 % (94-97); ABG PCO2 69 mmHg (35-45); ABG PH 7.24 (7.35-7.45); ABG PO2 109 mmHg (83-108); ABG TCO2 32 mmol/L (19-24); Allen Test Performed? Yes
[2021-11-04] MEDS: PIPERACILLIN-TAZOBACTAM 3.375 GM in SODIUM CHLORIDE 0.9% 100 ML IVPB SCH ×2 (09:04→17:17)
[2021-11-04] MEDS: ASCORBIC ACID 500 MG TAB PO SCH (09:05)
[2021-11-04] MEDS: carBAMazepine 200 MG TAB PO SCH ×2 (09:05→21:08)
[2021-11-04] MEDS: APIXABAN 5 MG TAB PO SCH ×2 (09:05→21:08)
[2021-11-04] MEDS: DEXAMETHASONE SOD PHOSPHATE 10 MG/ML 1 ML VIAL IVP SCH (09:07)
[2021-11-04] MEDS: CHLORHEXIDINE GLUCONATE 15 ML CUP MUCOUS MEM SCH ×2 (09:07→21:07)
[2021-11-04] MEDS: CHOLECALCIFEROL 25 MCG (1000 IU) TABLET PO SCH (09:07)
[2021-11-04] MEDS: ZINC SULFATE 220 MG CAP PO SCH (09:08)
[2021-11-04] MEDS: PREGABALIN 100 MG CAP PO SCH ×2 (09:08→21:08)
[2021-11-04] MEDS: SERTRALINE 50 MG TAB PO SCH (09:08)
[2021-11-04] MEDS ORDERED: VANCOMYCIN IV PER PHARMACY 1 EACH MISC MISCELLANE PRN (09:23)
--- NOTE | 2021-11-04 09:43 | XR ---
EXAMINATION TYPE: XR chest 1V portable DATE OF EXAM: 11/04/2021 COMPARISON: Chest x-ray 11/03/2021 HISTORY: Intubated, abnormal chest x-ray TECHNIQUE: Single frontal view of the chest is obtained. FINDINGS: Endotracheal tube, NG tube, left subclavian central venous catheter are overlying appropri ate positions. There are overlying artifacts. Surgical clips are again noted in the right neck with a ssociated subcutaneous emphysema. There is no pneumothorax or pleural effusion evident. The confluent airspace disease in the right upper lobe has improved somewhat in the interval, more confluent densi ties present along the right hemidiaphragm which is now obscured. Bilateral airspace disease again no maykel. Cardiac mediastinal silhouette is stable. IMPRESSION: Correlate for pneumonia, edema, ARDS
--- NOTE | 2021-11-04 09:56 | P.PN ---
Subjective Progress Note Date: 11/04/21 Principal diagnosis: The patient is seen today 11/03/2021 in follow-up in the intensive care unit. He was admitted on 10/23/2021. The patient had developed ongoing toxic respira tory failure secondary to COVID-19 pneumonia requiring eventual intubation mechanical ventilatory support on 10/30/2021. He remains intubated on mechanical ventilator. He is currently in a chair control mode with a Pi of 20 and a Ti of 0.9. Rate is 28. FiO2 is 45% and a PEEP is 16. Morning blood gases revealed a PaO2 of 67, pCO2 of 57 and a pH of 7.30. Chest x-ray continues to show bilateral patchy infiltrates. NG tube was in a similar location per respiratory therapy. Left subclavian triple lumen catheter in place. No evidence of pneumothorax. He remains sedated on propofol 50 mcg/kg/m. Paralyzed on Nimbex at 1.5 mcg/kg/m. He is on fentanyl at 2 mcg/h. 0.9 normal saline at 30 mL per hour. He is being nourished with vital AF at 29 MLS per hour which is goal. He is continued on Decadron, Eliquis, vitamin supplements. He is on Baricitinib. Sputum cultures now positive for strep agalactiae group B. He remains in a positive-100 ML balance. His been afebrile. Not requiring any pressors. White count 11.9. Hemoglobin 12.0. Platelets 266. Leukocytes 1.7. Sodium 138. Potassium 4.5. Creatinine 0.55. Glucose 166. AST 63. ALT 64. The patient is seen today 11/04/2021 in follow-up in the intensive care unit. He remains intubated and on the mechanical ventilator. Current settings are pressure control mode with the Pi by time of 28, Ti 0.90. Rate of 28, FiO2 85%, PEEP of 16. Peak pressure 37. Plateau pressure 35. Morning blood gases on 100% FiO2 revealed a PaO2 of 109, pCO2 69, pH 7.24. The patient had been weaned off his Nimbex yesterday however through the night he became quite restless and a synchronous with the mechanical ventilator. His PEEP had been down to 12 here chest x-ray showed worsening bilateral infiltrates. His PEEP was increased back to 16 and he was back on paralytics. He is currently on Nimbex at 1.5 mcg/kg/m. He is sedated with propofol at 65 mcg/kg/m. He is on fentanyl at 1.5 units milligrams per kilogram per hour. He's been nourished with vital HPI 30 ML's per hour which is goal. 0.9 normal saline at 30 MLS per hour. He is remaining in normal sinus rhythm. He has been intubated since 10/30/2021. He did test positive for CoVID back on 10/11/2021 at [facility]. Today's chest x- ray continues to show confluent airspace disease in the right upper lobe with some improvement and more confluent densities present along the right hemidiaphragm and bilateral airspace disease. There is some subcutaneous em physema in the right neck area. There is no evidence of pneumothorax or pleural effusion. Sputum culture is positive for strep agalactiae group B. Blood cultures as resulted this morning with a gram-positive cocci. White count 13.1. Hemoglobin 11.6. Lymphocytes 0.9. Sodium 139. Potassium 4.6. Bicarb 28. Creatinine 0.53. Glucose 178. He is continued on Eliquis, Decadron, vitamin supplements. He is on Levemir 20 units at bedtime along with a sliding scale. He is on antibiotics in the form of Zosyn. Objective - Vital Signs Vital signs: Vital Signs Temp 99.3 F 11/04/21 04:00 Pulse 74 11/04/21 07:00 Resp 13 11/04/21 07:00 BP 180/90 11/04/21 01:00 Pulse Ox 94 L 11/04/21 07:00 Intake & Output 11/03/21 11/04/21 11/04/21 18:59 06:59 18:59 Intake Total 2585.651 4177.866 175.420 Output Total 440 455 Balance 916.253 955.866 175.420 Weight 120 kg 123.15 kg Intake: IV 240 310 0.9 NS KVO 240 310 Intake, IV Titration 731.253 680.866 175.420 Amount Cisatracurium 200 mg In 85.849 Sodium Chloride 0.9% 180 ml @ 1 MCG/KG/MIN 4.899 mls/hr IV .Q24H [facility] Rx#: [id number] Piperacillin-Tazobactam 3 100 .375 gm In Sodium Chloride 0.9% 100 ml @ 25 mls/hr IVPB Q8HR [facility] Rx# :[id number] fentaNYL (PF). 1,000 mcg 185.252 189.146 75.420 In Sodium Chloride 0.9% 80 ml @ 0.5 MCG/KG/HR 4. 082 mls/hr IV .Q24H [facility] Rx#:[id number] propofoL 1,000 mg In 360.152 491.72 100 Empty Bag 1 bag @ Titrate IV .Q0M [facility] Rx#: [id number] Tube Feeding 325 360 Other 60 60 Output: Urine 440 455 Other: Voiding Method Indwelling Catheter Indwelling Catheter ABP, PAP, CO, CI - Last Documented Arterial Blood Pressure 114/58 - Exam GENERAL EXAM: Intubated, sedated, paralyzed 61-year-old male patient on the mechanical ventilator with FiO2 of 85% and a PEEP of 16. HEAD: Normocephalic. EYES: Sluggish reaction of pupils, equal size. NOSE: Clear with pink turbinates. THROAT: Oral endotracheal and gastric tube secured in place. No erythema or exudates. NECK: No masses, no JVD. CHEST: No chest wall deformity. LUNGS: Equal air entry with coarse crackles in the posterior bases. CVS: S1 and S2 normal with no audible murmur, regular rhythm. ABDOMEN: No hepatosplenomegaly, normal bowel sounds, no guarding or rigidity. SPINE: No scoliosis or deformity SKIN: No rashes CENTRAL NERVOUS SYSTEM: Sedated, paralyzed, tone is normal in all 4 extremities. EXTREMITIES: There is no peripheral edema. No clubbing, no cyanosis. Peripheral pulses are intact. - Labs CBC & Chem 7: 11/04/21 04:15 11/04/21 04:15 Labs: Abnormal Lab Results - Last 24 Hours (Table) 11/03/21 11/03/21 11/03/21 Range/Units 04:12 11:24 17:09 WBC (3.8-10.6) k/uL RBC (4.30-5.90) m/uL Hgb (13.0-17.5) gm/dL Hct (39.0-53.0) % MCV (80.0-100.0) fL Neutrophils # (1.3-7.7) k/uL Lymphocytes # (1.0-4.8) k/uL ABG pH (7.35-7.45) ABG pCO2 (35-45) mmHg ABG pO2 (83-108) mmHg ABG HCO3 (21-25) mmol/L ABG Total CO2 (19-24) mmol/L ABG O2 Saturation (94-97) % Creatinine (0.66-1.25) mg/dL Glucose (74-99) mg/dL POC Glucose (mg/dL) 148 H 179 H (75-99) mg/dL Calcium (8.4-10.2) mg/dL Procalcitonin 0.12 H (0.02-0.09) ng/mL 11/03/21 11/04/21 11/04/21 Range/Units 23:01 04:15 04:15 WBC 13.1 H (3.8-10.6) k/uL RBC 3.58 L (4.30-5.90) m/uL Hgb 11.6 L (13.0-17.5) gm/dL Hct 36.1 L (39.0-53.0) % MCV 101.0 H (80.0-100.0) fL Neutrophils # 11.3 H (1.3-7.7) k/uL Lymphocytes # 0.9 L (1.0-4.8) k/uL ABG pH (7.35-7.45) ABG pCO2 (35-45) mmHg ABG pO2 (83-108) mmHg ABG HCO3 (21-25) mmol/L ABG Total CO2 (19-24) mmol/L ABG O2 Saturation (94-97) % Creatinine 0.53 L (0.66-1.25) mg/dL Glucose 178 H (74-99) mg/dL POC Glucose (mg/dL) 152 H (75-99) mg/dL Calcium 8.0 L (8.4-10.2) mg/dL Procalcitonin (0.02-0.09) ng/mL 11/04/21 11/04/21 Range/Units 05:42 05:43 WBC (3.8-10.6) k/uL RBC (4.30-5.90) m/uL Hgb (13.0-17.5) gm/dL Hct (39.0-53.0) % MCV (80.0-100.0) fL Neutrophils # (1.3-7.7) k/uL Lymphocytes # (1.0-4.8) k/uL ABG pH 7.24 L (7.35-7.45) ABG pCO2 69 H (35-45) mmHg ABG pO2 109 H (83-108) mmHg ABG HCO3 30 H (21-25) mmol/L ABG Total CO2 32 H (19-24) mmol/L ABG O2 Saturation 97.9 H (94-97) % Creatinine (0.66-1.25) mg/dL Glucose (74-99) mg/dL POC Glucose (mg/dL) 146 H (75-99) mg/dL Calcium (8.4-10.2) mg/dL Procalcitonin (0.02-0.09) ng/mL Microbiology - Last 24 Hours (Table) 11/03/21 16:22 Blood Culture Gram Stain - Preliminary Blood 11/03/21 16:22 Blood Culture - Final Blood Assessment and Plan Assessment: 1 Acute hypoxic respiratory failure related to acute COVID-19 related pneumonia, patient presented to the emergency department on 10/23/2021 with 2 week history of symptoms, patient is outside the window for Remdesivir, he is a non-vaccinated adult. Initiated on Baricitinib. The patient developed acute hypoxemic respiratory failure requiring intubation mechanical ventilatory support on 10/30/2021. The patient sputum culture is now positive for strep agalactiae group B. Baricitinib discontinued on 11/03/2021. Initiated on Zosyn. New preliminary blood cultures positive for gram-positive cocci. We'll give one dose of vancomycin today. 2 Bilateral pulmonary emboli on computed tomography scan 10/26/2021. Continued on Eliquis. 3 Diabetes mellitus type 2 with diabetic neuropathy 4 Hypertension 5 Hyperlipidemia 6 Obstructive sleep apnea with previous history of UPPP 7 History of right eye melanoma with multiple surgeries 8 Previous history of CVA 9 Rheumatoid arthritis 10 History of gout 11 Previous history of MRSA infection in the wound on his back 12 Mild lactic acidosis, improved with IV hydration 13 Elevated inflammatory markers related to acute COVID-19 pneumonia 14 BPH with previous history of TURP Plan: The patient was seen and evaluated Chest x-ray, ABGs and labs reviewed The patient did not tolerate being off paralytics Initiated back on Nimbex, increased FiO2 to 100% and a PEEP of 16 Able to bring down the FiO2 to 85% currently Sputum now positive for strep agalactiae group B Discontinued Baricitinib yesterday Initiated Zosyn yesterday Preliminary blood culture with gram-positive cocci Initiated vancomycin today Continue Decadron, Eliquis, vitamin supplements Prognosis is guarded Will most likely need tracheostomy and PEG tube placement Dr. Ramirez did speak with his daughter Lay today We'll continue to follow Critical care time 36 minutes I, the cosigning physician, performed a history & physical examination of the patient. Lungs sounds are coarse crackles in the bilateral bases. Maintaining O2 saturations in the 90s on the mechanical ventilator with an FiO2 of 85% and a PEEP of 16. I discussed the assessment and plan of care with my nurse practitioner, Jenna Batres. I attest to the above note as dictated by her.
[2021-11-04] MEDS: VANCOMYCIN 2,000 MG in SODIUM CHLORIDE 0.9% 500 ML 500 ML IVPB SCH ×2 (10:26→19:06)
[2021-11-04 11:29] LABS: Glucose,Whole Blood 182 mg/dL (75-99)
--- NOTE | 2021-11-04 14:28 | P.PN ---
Progress Note - Text Progress Note Date: 11/04/21 Chief Complaint: Short of breath This is a pleasant 61-year-old patient, chronic stable medical conditions include diabetes, hypertension, hyperlipidemia, osteoarthritis, peripheral neuropathy, chronic gout. Patient presents with increasing shortness of breath. Cough. Clear sputum. Fever and chills. Tired rundown decrease appetite and diarrhea about 2 times a day. Patient tested positive for COVID-19 on October 09. His initial rapid COVID-19 was negative. In the send out came back positive. Patient did not take the vaccine against COVID-19. He is on 8 L of oxygen this morning. He is outside the window for Remdesivir. Admitted with COVID 19 pneumonitis, acute hypoxic respiratory failure. Started on Decadron. IV fluids. October 24: Feeling a bit better. Short of breath. 92% on 11 L. Did eat some. Sitting at the edge of the bed. A bit tired October 25: Short of breath. Cough. Oral intake fair. On 11 L of nasal cannula. Did sit up in a chair. October 26: Short of breath. Oral intake fair. Cough. 11 L nasal cannula. Dexamethasone. Chest CTA showing bilateral pulmonary embolism. October 27: Short of breath. Eating fair. 15 L nasal cannula. Tired. October 28: Remains on 15 L of nasal cannula. Eating about 50%. Short of breath. Tired. Trying to change his positions in bed. Including prone. October 29: Patient more short of breath and tired. Pulse oxing 87% on 15 L. Laying in bed. Eating around 50%. Late in the afternoon seen by pulmonary and patient be moved to ICU. October 30: Patient moved to ICU yesterday. Because of more respiratory compromise. Intubated earlier today. Drips include Diprivan, fentanyl, Nimbex, Levophed. Sinus rhythm. FiO2 19 a PEEP of 18. October 31: ICU: Ventilator/FiO2 19 a PEEP of 18. Drips include MX, propofol, fentanyl. Epinephrine. November 01: ICU: On the ventilator FiO2 55 PEEP of 16. Drips included propofol, Nimbex, fentanyl. 2 feeding at 29 mL an hour. November 02: ICU. Ventilator 45/16. Drips include fentanyl, propofol, Nimbex. 2 feeding at 20 mL an hour. November 03: ICU. Ventilator 45/12. Drips include fentanyl, propofol. 2 feeding at 29 mL an hour. November 04: ICU. Overnight patient went into respiratory distress. X-ray was looking worse. Patient put back on 100% FiO2 and a PEEP of 16. Patient is put back on drips of currently include fentanyl, propofol, Nimbex. 2 feeding. Sedated Review of systems: Intubated Active Medications Acetaminophen (Acetaminophen Tab 325 Mg Tab) 650 mg PO Q6HR PRN PRN Reason: Mild Pain or Fever > 100.5 Last Admin: 10/29/21 15:46 Dose: 650 mg Documented by: Albuterol Sulfate (Albuterol Hfa Inhaler) 2 puff INHALATION RT-QID PRN PRN Reason: Shortness Of Breath Last Admin: 11/01/21 20:29 Dose: 2 puff Documented by: Apixaban (Apixaban 5 Mg Tab) 5 mg PO BID [facility]; Protocol Last Admin: 11/04/21 09:05 Dose: 5 mg Documented by: Artificial Tears (Artificial Tears-Hypromellose Drops 15 Ml Btl) 2 drops BOTH EYES Q4HR [facility] Last Admin: 11/04/21 12:53 Dose: 2 drops Documented by: Ascorbic Acid (Ascorbic Acid 500 Mg Tab) 1,000 mg PO DAILY [facility] Last Admin: 11/04/21 09:05 Dose: 1,000 mg Documented by: Carbamazepine (Carbamazepine 200 Mg Tab) 400 mg PO BID [facility] Last Admin: 11/04/21 09:05 Dose: 400 mg Documented by: Chlorhexidine Gluconate (Chlorhexidine Gluconate 15 Ml Cup) 15 ml MUCOUS MEM BID [facility] Last Admin: 11/04/21 09:07 Dose: 15 ml Documented by: Cholecalciferol (Cholecalciferol 25 Mcg (1000 Iu) Tablet) 25 mcg PO DAILY [facility] Last Admin: 11/04/21 09:07 Dose: 25 mcg Documented by: Dexamethasone Sodium Phosphate (Dexamethasone Sod Phosphate 10 Mg/Ml 1 Ml Vial) 6 mg IVP DAILY [facility] Last Admin: 11/04/21 09:07 Dose: 6 mg Documented by: Propofol 1,000 mg/ IV Solution 100 mls @ 0 mls/hr IV .Q0M [facility]; Protocol Last Admin: 11/04/21 13:00 Dose: 65 mcg/kg/min, 48.029 mls/hr Documented by: Fentanyl Citrate 1,000 mcg/ (Sodium Chloride) 100 mls @ 4.082 mls/hr IV .Q24H [facility]; Protocol Last Admin: 11/04/21 12:53 Dose: 2 mcg/kg/hr, 16.329 mls/hr Documented by: Piperacillin Sod/Tazobactam (Sod 3.375 gm/ Sodium Chloride) 100 mls @ 25 mls/hr IVPB Q8HR [facility] Last Admin: 11/04/21 09:04 Dose: 25 mls/hr Documented by: Cisatracurium Besylate 200 mg/ (Sodium Chloride) 200 mls @ 10.8 mls/hr IV .[id number] [facility]; Protocol Last Admin: 11/04/21 00:35 Dose: 1.5 mcg/kg/min, 10.8 mls/hr Documented by: Vancomycin HCl 2,000 mg/ (Sodium Chloride) 500 mls @ 167 mls/hr IVPB Q8H [facility] Last Admin: 11/04/21 10:26 Dose: 167 mls/hr Documented by: Insulin Aspart (Insulin Aspart (Novolog) 100 Unit/Ml Vial) 0 unit SQ Q6HR [facility]; Protocol Last Admin: 11/04/21 12:53 Dose: 4 unit Documented by: Insulin Detemir (Insulin Detemir (Levemir) 100 Unit/Ml Syr) 20 unit SQ HS [facility] Last Admin: 11/03/21 20:25 Dose: 20 unit Documented by: Metoprolol Tartrate (Metoprolol Tartrate 50 Mg Tab) 50 mg PO BID [facility] Last Admin: 11/04/21 09:08 Dose: 50 mg Documented by: Pregabalin (Pregabalin 100 Mg Cap) 200 mg PO BID [facility] Last Admin: 11/04/21 09:08 Dose: 200 mg Documented by: Sertraline HCl (Sertraline 50 Mg Tab) 50 mg PO DAILY [facility] Last Admin: 11/04/21 09:08 Dose: 50 mg Documented by: Zinc Sulfate (Zinc Sulfate 220 Mg Cap) 220 mg PO DAILY [facility] Last Admin: 11/04/21 09:08 Dose: 220 mg Documented by: Social history: Patient is on Social Security. Does not smoke or drink alcohol. Patient's daughters family lives with him. Family history: Father at the age of 40 with heart attack Physical examination: VITAL SIGNS: 99.5, 84, 16, 135/84, 89% on the ventilator GENERAL: Laying in bed, intubated LUNGS: Respiratory rate increased,. PSYCH: Unable to assess Rest of the exam per nursing and pulmonary INVESTIGATIONS, reviewed in the clinical context: November 04: WBC 13.1 hemoglobin 11.6 potassium 4.6 creatinine 0.53. Chest x-ray film personally reviewed by me-bilateral infiltrates November 03: White count 11.9 hemoglobin 12 platelets 266 potassium 4.2 creatinine 0.55 AST 63 ALT 64 pro-calcitonin 0.12 November 02: White count 8 hemoglobin 10.5 potassium 4.4. 23 creatinine 0.5 to November 01: White count 11.1 hemoglobin 11.6 platelets 203 d-dimer 10.6 potassium 4.7 creatinine 0.73 October 31: White count 12.1 hemoglobin 12.2 platelets 240 potassium 4.8 creatinine 0.61 October 30: White count 12.9 hemoglobin 13.1 potassium 5.6 creatinine 0.69 October 29: White count 13.1 hemoglobin 13.8 d-dimer 16.2 potassium 4.7 creatinine 0.76 October 28: D-dimer 13.4 to October 26: D-dimer 8.48 CRP 24 Chest CTA [October 26: biLateral pulmonary embolism Doppler ultrasound lower extremity: Negative for DVT October 24: White count 9.7 hemoglobin 15.3 platelets 221 d-dimer 1.93 progression 4.2 creatinine 0.71 CRP 5.5 pro-calcitonin 0.08 White count 9.9 hemoglobin 16 platelets 234 d-dimer 0.98 sodium 141 potassium 3.4 creatinine 0.81 Lactic acid 2.9 LDH 1422 CRP 7.5 EKG tracing personally reviewed by me-normal sinus rhythm. Nonspecific ST segment changes. Chest x-ray film personally reviewed by me-bilateral infiltrates Assessment and plan: -Acute severe COVID 19 pneumonitis in a patient who did not take the COVID-19 vaccine: Worsening Dexamethasone, vitamin C, vitamin D, zinc. Patient's outside the window for Remdesivir. -Acute hypoxic respiratory failure from COVID-19: Worsening intubated October 30. FiO2 100 and a PEEP of 16 -Bilateral pulmonary embolism secondary to COVID-19 Eliquis -Essential hypertension Lopressor 50 mg twice a day, Cozaar 50 mg daily -Diabetes mellitus type 2, on oral hypoglycemic, uncontrolled with hyperglycemia Glucophage thousand milligrams twice a day. Follow Accu-Chek. Precose. Levemir 20 units daily at bedtime -Chronic insomnia for medical conditions Elavil 50 mg daily at bedtime -Hyperlipidemia TriCor 48 mg daily -Obstructive sleep apnea On CPAP at home -Diabetic peripheral neuropathy Lyrica 200 mg twice daily -Full code Drips include : fentanyl , propofol Nimbex. Ventilator. Tube feeding Medications to continue. Clinical worsening overnight. Remains critical.
[2021-11-04 16:19] LABS: ABG Base Excess -0.7 mmol/L; ABG HCO3 30 mmol/L (21-25); ABG Oxygen Saturation 93.3 % (94-97); ABG PO2 82 mmHg (83-108); ABG TCO2 34 mmol/L (19-24); Allen Test Performed? Yes
[2021-11-04 16:22] LABS: ABG PH 7.01 (7.35-7.45)
[2021-11-04 16:23] LABS: ABG PCO2 120 mmHg (35-45)
[2021-11-04] MEDS: ALBUTEROL HFA INHALER INHALATION PRN (16:49)
[2021-11-04 17:27] LABS: Glucose,Whole Blood 275 mg/dL (75-99)
--- NOTE | 2021-11-04 17:28 | XR ---
EXAMINATION TYPE: XR chest 1V portable DATE OF EXAM: 11/04/2021 COMPARISON: Today at 5:30 AM HISTORY: Short of breath TECHNIQUE: Single view FINDINGS: There is diffuse pulmonary interstitial and airspace edema. There is nasogastric tube in th e stomach. The endotracheal tube is 4.5 cm from the dennis. There are chest leads. Costophrenic angle s are clear. There is left subclavian catheter with tip in the superior vena cava. IMPRESSION: There is pulmonary edema which is not changed compared to last exam. There is improved ae ration of the right lung base and decreased right pleural effusion compared to exam earlier today.
[2021-11-04] MEDS: INSULIN DETEMIR (LEVEMIR) 100 UNIT/ML SYR SQ SCH (21:08)
[2021-11-05 00:02] LABS: Glucose,Whole Blood 154 mg/dL (75-99)
[2021-11-05] MEDS: INSULIN ASPART (NovoLOG) 100 UNIT/ML VIAL SQ SCH ×5 (00:04→23:36)
[2021-11-05] MEDS: ARTIFICIAL TEARS-HYPROMELLOSE DROPS 15 ML BTL BOTH EYES SCH ×7 (00:04→23:36)
[2021-11-05] MEDS: PIPERACILLIN-TAZOBACTAM 3.375 GM in SODIUM CHLORIDE 0.9% 100 ML IVPB SCH ×4 (00:05→23:36)
[2021-11-05] MEDS: fentaNYL (PF). 1,000 MCG in SODIUM CHLORIDE 0.9% 80 ML IV SCH ×6 (01:25→23:03)
[2021-11-05 04:27] LABS: Basophils # (A) 0.1 k/uL (0-0.2); Basophils % (A) 0 %; Eosinophils # (A) 0.1 k/uL (0-0.7); Eosinophils % (A) 1 %; HCT 31.4 % (39.0-53.0); HGB 10.4 gm/dL (13.0-17.5); Lymphocytes # (A) 1.1 k/uL (1.0-4.8); Lymphocytes % (A) 10 %; MCH 32.3 pg (25.0-35.0); MCHC 33.3 g/dL (31.0-37.0); MCV 96.9 fL (80.0-100.0); Mean Platelet Volume 8.5; Monocytes # (A) 0.5 k/uL (0-1.0); Monocytes % (A) 4 %; Neutrophils # (A) 9.2 k/uL (1.3-7.7); Neutrophils % (A) 83 %; Platelet Count 218 k/uL (150-450); Poikilocytosis Slight; RBC 3.24 m/uL (4.30-5.90); RDW 14.5 % (11.5-15.5)
[2021-11-05 04:52] LABS: ALT 115 U/L (4-49); AST 52 U/L (17-59); African American GFR (CKD) >90 (>60 ml/min/1.73 sqM); Albumin 2.3 g/dL (3.5-5.0); Alkaline Phosphatase 100 U/L (38-126); Anion Gap 4 mmol/L; Blood Urea Nitrogen 19 mg/dL (9-20); Calcium 7.9 mg/dL (8.4-10.2); Carbon Dioxide 28 mmol/L (22-30); Chloride 105 mmol/L (98-107); Glucose 152 mg/dL (74-99); Non-African American GFR(CKD) >90 (>60 ml/min/1.73 sqM); Sodium 137 mmol/L (137-145); Total Bilirubin 0.6 mg/dL (0.2-1.3)
[2021-11-05 05:13] LABS: ABG Base Excess 6.2 mmol/L; ABG HCO3 30 mmol/L (21-25); ABG Oxygen Saturation 95.1 % (94-97); ABG PCO2 45 mmHg (35-45); ABG PH 7.44 (7.35-7.45); ABG PO2 67 mmHg (83-108); ABG TCO2 32 mmol/L (19-24); Allen Test Performed? Yes
[2021-11-05 05:38] LABS: Glucose,Whole Blood 161 mg/dL (75-99)
[2021-11-05] MEDS: APIXABAN 5 MG TAB PO SCH ×2 (08:13→20:02)
[2021-11-05] MEDS: SERTRALINE 50 MG TAB PO SCH (08:13)
[2021-11-05] MEDS: PREGABALIN 100 MG CAP PO SCH ×2 (08:13→20:02)
[2021-11-05] MEDS: ASCORBIC ACID 500 MG TAB PO SCH (08:13)
[2021-11-05] MEDS: CHOLECALCIFEROL 25 MCG (1000 IU) TABLET PO SCH (08:13)
[2021-11-05] MEDS: ZINC SULFATE 220 MG CAP PO SCH (08:13)
[2021-11-05] MEDS: carBAMazepine 200 MG TAB PO SCH ×2 (08:13→20:04)
[2021-11-05] MEDS: CHLORHEXIDINE GLUCONATE 15 ML CUP MUCOUS MEM SCH ×2 (08:13→20:02)
[2021-11-05] MEDS: DEXAMETHASONE SOD PHOSPHATE 10 MG/ML 1 ML VIAL IVP SCH (08:14)
[2021-11-05] MEDS: ALBUTEROL HFA INHALER INHALATION PRN ×3 (08:45→20:00)
--- NOTE | 2021-11-05 08:53 | XR ---
EXAMINATION TYPE: XR chest 1V portable DATE OF EXAM: 11/05/2021 COMPARISON: Chest x-ray 11/04/2021 HISTORY: Intubated TECHNIQUE: Single frontal view of the chest is obtained. FINDINGS: Endotracheal tube, NG tube, left subclavian central venous catheter are overlying appropri ate positions. Patient is rotated. There is no evident pneumothorax or pleural effusion. Bilateral ai rspace disease, interstitial changes are again noted. Cardiac mediastinal silhouette is stable. Surgi khurram clips present over the right neck, subcutaneous emphysema is improved. There are overlying artifa cts. IMPRESSION: Findings similar to prior exam. Correlate for pneumonia, ARDS
[2021-11-05] MEDS ORDERED: FUROSEMIDE 10 MG/ML 4 ML VIAL IV STA (09:46)
--- NOTE | 2021-11-05 09:46 | P.PN ---
Subjective Progress Note Date: 11/05/21 Principal diagnosis: The patient is seen today 11/03/2021 in follow-up in the intensive care unit. He was admitted on 10/23/2021. The patient had developed ongoing toxic respira tory failure secondary to COVID-19 pneumonia requiring eventual intubation mechanical ventilatory support on 10/30/2021. He remains intubated on mechanical ventilator. He is currently in a chair control mode with a Pi of 20 and a Ti of 0.9. Rate is 28. FiO2 is 45% and a PEEP is 16. Morning blood gases revealed a PaO2 of 67, pCO2 of 57 and a pH of 7.30. Chest x-ray continues to show bilateral patchy infiltrates. NG tube was in a similar location per respiratory therapy. Left subclavian triple lumen catheter in place. No evidence of pneumothorax. He remains sedated on propofol 50 mcg/kg/m. Paralyzed on Nimbex at 1.5 mcg/kg/m. He is on fentanyl at 2 mcg/h. 0.9 normal saline at 30 mL per hour. He is being nourished with vital AF at 29 MLS per hour which is goal. He is continued on Decadron, Eliquis, vitamin supplements. He is on Baricitinib. Sputum cultures now positive for strep agalactiae group B. He remains in a positive-100 ML balance. His been afebrile. Not requiring any pressors. White count 11.9. Hemoglobin 12.0. Platelets 266. Leukocytes 1.7. Sodium 138. Potassium 4.5. Creatinine 0.55. Glucose 166. AST 63. ALT 64. The patient is seen today 11/04/2021 in follow-up in the intensive care unit. He remains intubated and on the mechanical ventilator. Current settings are pressure control mode with the Pi by time of 28, Ti 0.90. Rate of 28, FiO2 85%, PEEP of 16. Peak pressure 37. Plateau pressure 35. Morning blood gases on 100% FiO2 revealed a PaO2 of 109, pCO2 69, pH 7.24. The patient had been weaned off his Nimbex yesterday however through the night he became quite restless and a synchronous with the mechanical ventilator. His PEEP had been down to 12 here chest x-ray showed worsening bilateral infiltrates. His PEEP was increased back to 16 and he was back on paralytics. He is currently on Nimbex at 1.5 mcg/kg/m. He is sedated with propofol at 65 mcg/kg/m. He is on fentanyl at 1.5 units milligrams per kilogram per hour. He's been nourished with vital HPI 30 ML's per hour which is goal. 0.9 normal saline at 30 MLS per hour. He is remaining in normal sinus rhythm. He has been intubated since 10/30/2021. He did test positive for CoVID back on 10/11/2021 at [facility]. Today's chest x- ray continues to show confluent airspace disease in the right upper lobe with some improvement and more confluent densities present along the right hemidiaphragm and bilateral airspace disease. There is some subcutaneous em physema in the right neck area. There is no evidence of pneumothorax or pleural effusion. Sputum culture is positive for strep agalactiae group B. Blood cultures as resulted this morning with a gram-positive cocci. White count 13.1. Hemoglobin 11.6. Lymphocytes 0.9. Sodium 139. Potassium 4.6. Bicarb 28. Creatinine 0.53. Glucose 178. He is continued on Eliquis, Decadron, vitamin supplements. He is on Levemir 20 units at bedtime along with a sliding scale. He is on antibiotics in the form of Zosyn. The patient is seen today 11/05/2021 in follow-up in the intensive care unit. He remains intubated and on the mechanical ventilator. Current settings are assist-control mode at a rate of 32, tidal on 450, FiO2 75% and a PEEP of 16 he became a synchronous with the vent yesterday while on pressure control mode. Morning blood gases revealed a pO2 of 67, pCO2 45, pH 7.44. Chest x-ray reveals similar findings of bilateral airspace disease, interstitial changes. No evidence of pneumothorax or pleural effusion. Endotracheal tube, nasogastric tube, left subclavian central line all in appropriate position. Subcutaneous emphysema of the right neck is improved. He remains on propofol at 65 mcg/kg/m. Nimbex at 1.5 mcg/kg/m. Fentanyl 2 mcg/kg/h. He has been nourished with Vital HP at 30 MLS per hour which is goal. He did receive vancomycin for positive blood culture which is resulting as Staphylococcus epidermidis, possible contamination. Previous sputum culture was positive for strep agalactiae, group B. He remains on Zosyn. He is also on bronchodilators. Anticoagulated with Eliquis. Remains on Decadron. He remains in a positive balance currently 2.7 L. White count 11.0. Hemoglobin 10.4. Sodium 137. Potassium 4.0. Creatinine 0.52. AST 52. ALT 115. Objective - Vital Signs Vital signs: Vital Signs Temp 98.9 F 11/05/21 08:00 Pulse 63 11/05/21 09:00 Resp 32 H 11/05/21 09:00 BP 114/68 11/05/21 09:00 Pulse Ox 97 11/05/21 09:00 Intake & Output 11/04/21 11/05/21 11/05/21 18:59 06:59 18:59 Intake Total 2270.075 1858.366 349 Output Total 745 605 135 Balance 2362.155 9688.366 214 Weight 125.7 kg Intake: IV 360 333 99 0.9 NS KVO 360 300 90 Pressure bag 33 9 Intake, IV Titration 8162.893 4675.366 100 Amount Cisatracurium 200 mg In 200 Sodium Chloride 0.9% 180 ml @ 1.5 MCG/KG/MIN 10.8 mls/hr IV .[id number] [facility] Rx #:[id number] Piperacillin-Tazobactam 3 200 .375 gm In Sodium Chloride 0.9% 100 ml @ 25 mls/hr IVPB Q8HR [facility] Rx# :[id number] Vancomycin 2,000 mg In 500 Sodium Chloride 0.9% 500 ml 500 ml @ 167 mls/hr IVPB Q8H [facility] Rx#: [id number] fentaNYL (PF). 1,000 mcg 208.365 300 In Sodium Chloride 0.9% 80 ml @ 0.5 MCG/KG/HR 4. 082 mls/hr IV .Q24H [facility] Rx#:[id number] propofoL 1,000 mg In 481.710 575.366 100 Empty Bag 1 bag @ Titrate IV .Q0M [facility] Rx#: [id number] Tube Feeding 360 360 90 Other 160 90 60 Output: Urine 745 605 135 Other: Voiding Method Indwelling Catheter Indwelling Catheter Indwelling Catheter ABP, PAP, CO, CI - Last Documented Arterial Blood Pressure 99/47 - Exam GENERAL EXAM: Intubated, sedated, paralyzed 61-year-old male patient on the mechanical ventilator with FiO2 of 75% and a PEEP of 16. HEAD: Normocephalic. EYES: Sluggish reaction of pupils, equal size. NOSE: Clear with pink turbinates. THROAT: Oral endotracheal and gastric tube secured in place. No erythema or exudates. NECK: No masses, no JVD. CHEST: No chest wall deformity. LUNGS: Equal air entry with coarse crackles in the posterior bases. CVS: S1 and S2 normal with no audible murmur, regular rhythm. ABDOMEN: No hepatosplenomegaly, normal bowel sounds, no guarding or rigidity. SPINE: No scoliosis or deformity SKIN: No rashes CENTRAL NERVOUS SYSTEM: Sedated, paralyzed, tone is normal in all 4 extremities. EXTREMITIES: There is no peripheral edema. No clubbing, no cyanosis. Peripheral pulses are intact. - Labs CBC & Chem 7: 11/05/21 04:00 11/05/21 04:00 Labs: Abnormal Lab Results - Last 24 Hours (Table) 11/04/21 11/04/21 11/04/21 Range/Units 11:27 16:16 17:26 WBC (3.8-10.6) k/uL RBC (4.30-5.90) m/uL Hgb (13.0-17.5) gm/dL Hct (39.0-53.0) % Neutrophils # (1.3-7.7) k/uL ABG pH 7.01 L* (7.35-7.45) ABG pCO2 120 H* (35-45) mmHg ABG pO2 82 L (83-108) mmHg ABG HCO3 30 H (21-25) mmol/L ABG Total CO2 34 H (19-24) mmol/L ABG O2 Saturation 93.3 L (94-97) % Creatinine (0.66-1.25) mg/dL Glucose (74-99) mg/dL POC Glucose (mg/dL) 182 H 275 H (75-99) mg/dL Calcium (8.4-10.2) mg/dL ALT (4-49) U/L Total Protein (6.3-8.2) g/dL Albumin (3.5-5.0) g/dL 11/05/21 11/05/21 11/05/21 Range/Units 00:00 04:00 04:00 WBC 11.0 H (3.8-10.6) k/uL RBC 3.24 L (4.30-5.90) m/uL Hgb 10.4 L (13.0-17.5) gm/dL Hct 31.4 L (39.0-53.0) % Neutrophils # 9.2 H (1.3-7.7) k/uL ABG pH (7.35-7.45) ABG pCO2 (35-45) mmHg ABG pO2 (83-108) mmHg ABG HCO3 (21-25) mmol/L ABG Total CO2 (19-24) mmol/L ABG O2 Saturation (94-97) % Creatinine 0.52 L (0.66-1.25) mg/dL Glucose 152 H (74-99) mg/dL POC Glucose (mg/dL) 154 H (75-99) mg/dL Calcium 7.9 L (8.4-10.2) mg/dL ALT 115 H (4-49) U/L Total Protein 5.0 L (6.3-8.2) g/dL Albumin 2.3 L (3.5-5.0) g/dL 11/05/21 11/05/21 Range/Units 05:36 05:50 WBC (3.8-10.6) k/uL RBC (4.30-5.90) m/uL Hgb (13.0-17.5) gm/dL Hct (39.0-53.0) % Neutrophils # (1.3-7.7) k/uL ABG pH (7.35-7.45) ABG pCO2 (35-45) mmHg ABG pO2 67 L (83-108) mmHg ABG HCO3 30 H (21-25) mmol/L ABG Total CO2 32 H (19-24) mmol/L ABG O2 Saturation (94-97) % Creatinine (0.66-1.25) mg/dL Glucose (74-99) mg/dL POC Glucose (mg/dL) 161 H (75-99) mg/dL Calcium (8.4-10.2) mg/dL ALT (4-49) U/L Total Protein (6.3-8.2) g/dL Albumin (3.5-5.0) g/dL Microbiology - Last 24 Hours (Table) 11/03/21 15:40 Blood Culture - Preliminary Blood No Growth after 24 hours 11/03/21 16:22 Blood Culture Gram Stain - Preliminary Blood Blood Culture - Preliminary Staphylococcus epidermidis 11/03/21 16:22 Blood Culture - Final Blood Assessment and Plan Assessment: 1 Acute hypoxic respiratory failure related to acute COVID-19 related pneumonia, patient presented to the emergency department on 10/23/2021 with 2 week history of symptoms, patient is outside the window for Remdesivir, he is a non-vaccinated adult. Initiated on Baricitinib. The patient developed acute hypoxemic respiratory failure requiring intubation mechanical ventilatory support on 10/30/2021. The patient sputum culture is now positive for strep agalactiae group B. Baricitinib discontinued on 11/03/2021. Initiated on Zosyn. Blood cultures positive for Staphylococcus epidermidis. Received one dose of vancomycin today. 2 Bilateral pulmonary emboli on computed tomography scan 10/26/2021. Continued on Eliquis. 3 Diabetes mellitus type 2 with diabetic neuropathy 4 Hypertension 5 Hyperlipidemia 6 Obstructive sleep apnea with previous history of UPPP 7 History of right eye melanoma with multiple surgeries 8 Previous history of CVA 9 Rheumatoid arthritis 10 History of gout 11 Previous history of MRSA infection in the wound on his back 12 Mild lactic acidosis, improved with IV hydration 13 Elevated inflammatory markers related to acute COVID-19 pneumonia 14 BPH with previous history of TURP Plan: The patient was seen and evaluated Chest x-ray, ABGs and labs reviewed Lasix 40 mg IVP 1 The patient did not tolerate pressure control yesterday was switched back to volume control Currently 75% FiO2 and a PEEP of 16 Sputum positive for strep agalactiae group B, continued on Zosyn Preliminary blood culture with staph epidermidis possible contamination Received a dose of vancomycin yesterday Continue Decadron, Eliquis, vitamin supplements Prognosis being guarded Will most likely need tracheostomy and PEG tube placement We'll continue to follow Critical care time 35 minutes I, the cosigning physician, performed a history & physical examination of the patient. Lungs sounds are coarse crackles in the bilateral bases. Maintaining O2 saturations in the 90s on the mechanical ventilator with an FiO2 of 75% and a PEEP of 16. I discussed the assessment and plan of care with my nurse practitioner, Jenna Batres. I attest to the above note as dictated by her.
[2021-11-05] MEDS: METOPROLOL TARTRATE 50 MG TAB PO SCH ×3 (09:59→20:01)
[2021-11-05 12:06] LABS: Glucose,Whole Blood 195 mg/dL (75-99)
[2021-11-05] MEDS: CISATRACURIUM 200 MG in SODIUM CHLORIDE 0.9% 180 ML IV SCH ×2 (12:18→22:19)
--- NOTE | 2021-11-05 18:00 | P.PN ---
Progress Note - Text Progress Note Date: 11/05/21 Chief Complaint: Short of breath This is a pleasant 61-year-old patient, chronic stable medical conditions include diabetes, hypertension, hyperlipidemia, osteoarthritis, peripheral neuropathy, chronic gout. Patient presents with increasing shortness of breath. Cough. Clear sputum. Fever and chills. Tired rundown decrease appetite and diarrhea about 2 times a day. Patient tested positive for COVID-19 on October 09. His initial rapid COVID-19 was negative. In the send out came back positive. Patient did not take the vaccine against COVID-19. He is on 8 L of oxygen this morning. He is outside the window for Remdesivir. Admitted with COVID 19 pneumonitis, acute hypoxic respiratory failure. Started on Decadron. IV fluids. October 24: Feeling a bit better. Short of breath. 92% on 11 L. Did eat some. Sitting at the edge of the bed. A bit tired October 25: Short of breath. Cough. Oral intake fair. On 11 L of nasal cannula. Did sit up in a chair. October 26: Short of breath. Oral intake fair. Cough. 11 L nasal cannula. Dexamethasone. Chest CTA showing bilateral pulmonary embolism. October 27: Short of breath. Eating fair. 15 L nasal cannula. Tired. October 28: Remains on 15 L of nasal cannula. Eating about 50%. Short of breath. Tired. Trying to change his positions in bed. Including prone. October 29: Patient more short of breath and tired. Pulse oxing 87% on 15 L. Laying in bed. Eating around 50%. Late in the afternoon seen by pulmonary and patient be moved to ICU. October 30: Patient moved to ICU yesterday. Because of more respiratory compromise. Intubated earlier today. Drips include Diprivan, fentanyl, Nimbex, Levophed. Sinus rhythm. FiO2 19 a PEEP of 18. October 31: ICU: Ventilator/FiO2 19 a PEEP of 18. Drips include MX, propofol, fentanyl. Epinephrine. November 01: ICU: On the ventilator FiO2 55 PEEP of 16. Drips included propofol, Nimbex, fentanyl. 2 feeding at 29 mL an hour. November 02: ICU. Ventilator 45/16. Drips include fentanyl, propofol, Nimbex. 2 feeding at 20 mL an hour. November 03: ICU. Ventilator 45/12. Drips include fentanyl, propofol. 2 feeding at 29 mL an hour. November 04: ICU. Overnight patient went into respiratory distress. X-ray was looking worse. Patient put back on 100% FiO2 and a PEEP of 16. Patient is put back on drips of currently include fentanyl, propofol, Nimbex. 2 feeding. Sedated November 05: ICU: Current drips include fentanyl, propofol, Nimbex. Ventilator: 75/16. 2 feeding at 30 mL an hour. Sinus rhythm. Blood cultures coming back coagulase-negative/staph epidermidis likely contaminant Review of systems: Intubated Active Medications Acetaminophen (Acetaminophen Tab 325 Mg Tab) 650 mg PO Q6HR PRN PRN Reason: Mild Pain or Fever > 100.5 Last Admin: 10/29/21 15:46 Dose: 650 mg Documented by: Albuterol Sulfate (Albuterol Hfa Inhaler) 2 puff INHALATION RT-QID PRN PRN Reason: Shortness Of Breath Last Admin: 11/05/21 16:26 Dose: 2 puff Documented by: Apixaban (Apixaban 5 Mg Tab) 5 mg PO BID [facility]; Protocol Last Admin: 11/05/21 08:13 Dose: 5 mg Documented by: Artificial Tears (Artificial Tears-Hypromellose Drops 15 Ml Btl) 2 drops BOTH EYES Q4HR [facility] Last Admin: 11/05/21 16:27 Dose: 2 drops Documented by: Ascorbic Acid (Ascorbic Acid 500 Mg Tab) 1,000 mg PO DAILY [facility] Last Admin: 11/05/21 08:13 Dose: 1,000 mg Documented by: Carbamazepine (Carbamazepine 200 Mg Tab) 400 mg PO BID [facility] Last Admin: 11/05/21 08:13 Dose: 400 mg Documented by: Chlorhexidine Gluconate (Chlorhexidine Gluconate 15 Ml Cup) 15 ml MUCOUS MEM BID [facility] Last Admin: 11/05/21 08:13 Dose: 15 ml Documented by: Cholecalciferol (Cholecalciferol 25 Mcg (1000 Iu) Tablet) 25 mcg PO DAILY [facility] Last Admin: 11/05/21 08:13 Dose: 25 mcg Documented by: Dexamethasone Sodium Phosphate (Dexamethasone Sod Phosphate 10 Mg/Ml 1 Ml Vial) 6 mg IVP DAILY [facility] Last Admin: 11/05/21 08:14 Dose: 6 mg Documented by: Propofol 1,000 mg/ IV Solution 100 mls @ 0 mls/hr IV .Q0M [facility]; Protocol Last Admin: 11/05/21 17:31 Dose: 60 mcg/kg/min, 45.252 mls/hr Documented by: Fentanyl Citrate 1,000 mcg/ (Sodium Chloride) 100 mls @ 4.082 mls/hr IV .Q24H [facility]; Protocol Last Admin: 11/05/21 14:21 Dose: 2 mcg/kg/hr, 16.329 mls/hr Documented by: Piperacillin Sod/Tazobactam (Sod 3.375 gm/ Sodium Chloride) 100 mls @ 25 mls/hr IVPB Q8HR [facility] Last Admin: 11/05/21 16:26 Dose: 25 mls/hr Documented by: Cisatracurium Besylate 200 mg/ (Sodium Chloride) 200 mls @ 10.8 mls/hr IV .[id number] [facility]; Protocol Last Admin: 11/05/21 12:18 Dose: 2.5 mcg/kg/min, 18 mls/hr Documented by: Insulin Aspart (Insulin Aspart (Novolog) 100 Unit/Ml Vial) 0 unit SQ Q6HR [facility]; Protocol Last Admin: 11/05/21 12:17 Dose: 5 unit Documented by: Insulin Detemir (Insulin Detemir (Levemir) 100 Unit/Ml Syr) 20 unit SQ HS [facility] Last Admin: 11/04/21 21:08 Dose: 20 unit Documented by: Metoprolol Tartrate (Metoprolol Tartrate 50 Mg Tab) 50 mg PO BID [facility] Last Admin: 11/05/21 11:13 Dose: 50 mg Documented by: Pregabalin (Pregabalin 100 Mg Cap) 200 mg PO BID [facility] Last Admin: 11/05/21 08:13 Dose: 200 mg Documented by: Sertraline HCl (Sertraline 50 Mg Tab) 50 mg PO DAILY [facility] Last Admin: 11/05/21 08:13 Dose: 50 mg Documented by: Zinc Sulfate (Zinc Sulfate 220 Mg Cap) 220 mg PO DAILY [facility] Last Admin: 11/05/21 08:13 Dose: 220 mg Documented by: Social history: Patient is on Social Security. Does not smoke or drink alcohol. Patient's daughters family lives with him. Family history: Father at the age of 40 with heart attack Physical examination: VITAL SIGNS: 98, 58, 16, 32, 11 5 x 71, 99% on the ventilator GENERAL: Laying in bed, intubated LUNGS: Respiratory rate increased,. PSYCH: Unable to assess Rest of the exam per nursing and pulmonary INVESTIGATIONS, reviewed in the clinical context: November 05: WBC 11 hemoglobin 10.4 platelets 218 potassium 4 creatinine 0.5 to Blood culture positive for Staphylococcus epidermidis/coagulates negative. November 04: WBC 13.1 hemoglobin 11.6 potassium 4.6 creatinine 0.53. Chest x-ray film personally reviewed by me-bilateral infiltrates November 03: White count 11.9 hemoglobin 12 platelets 266 potassium 4.2 creatinine 0.55 AST 63 ALT 64 pro-calcitonin 0.12 November 02: White count 8 hemoglobin 10.5 potassium 4.4. 23 creatinine 0.5 to November 01: White count 11.1 hemoglobin 11.6 platelets 203 d-dimer 10.6 potassium 4.7 creatinine 0.73 October 31: White count 12.1 hemoglobin 12.2 platelets 240 potassium 4.8 creatinine 0.61 October 30: White count 12.9 hemoglobin 13.1 potassium 5.6 creatinine 0.69 October 29: White count 13.1 hemoglobin 13.8 d-dimer 16.2 potassium 4.7 creatinine 0.76 October 28: D-dimer 13.4 to October 26: D-dimer 8.48 CRP 24 Chest CTA [October 26: biLateral pulmonary embolism Doppler ultrasound lower extremity: Negative for DVT October 24: White count 9.7 hemoglobin 15.3 platelets 221 d-dimer 1.93 progression 4.2 creatinine 0.71 CRP 5.5 pro-calcitonin 0.08 White count 9.9 hemoglobin 16 platelets 234 d-dimer 0.98 sodium 141 potassium 3.4 creatinine 0.81 Lactic acid 2.9 LDH 1422 CRP 7.5 EKG tracing personally reviewed by me-normal sinus rhythm. Nonspecific ST segment changes. Chest x-ray film personally reviewed by me-bilateral infiltrates Assessment and plan: -Acute severe COVID 19 pneumonitis in a patient who did not take the COVID-19 vaccine: Slow to respond Dexamethasone, vitamin C, vitamin D, zinc. Patient's outside the window for Remdesivir. -Acute hypoxic respiratory failure from COVID-19: Slow to respond intubated October 30. FiO2 75 and a PEEP of 16 -Bilateral pulmonary embolism secondary to COVID-19 Eliquis -Essential hypertension Lopressor 50 mg twice a day, Cozaar 50 mg daily -Diabetes mellitus type 2, on oral hypoglycemic, uncontrolled with hyperglycemia Glucophage thousand milligrams twice a day. Follow Accu-Chek. Precose. Levemir 20 units daily at bedtime -Chronic insomnia for medical conditions Elavil 50 mg daily at bedtime -Hyperlipidemia TriCor 48 mg daily -Obstructive sleep apnea On CPAP at home -Diabetic peripheral neuropathy Lyrica 200 mg twice daily -Full code Drips include : fentanyl , propofol Nimbex. Ventilator. Tube feeding Medications to continue. Spoke to the at the bedside.. Remains critical.
[2021-11-05 18:27] LABS: Glucose,Whole Blood 209 mg/dL (75-99)
[2021-11-05] MEDS: INSULIN DETEMIR (LEVEMIR) 100 UNIT/ML SYR SQ SCH (20:04)
[2021-11-05 23:34] LABS: Glucose,Whole Blood 171 mg/dL (75-99)
[2021-11-06] MEDS: ARTIFICIAL TEARS-HYPROMELLOSE DROPS 15 ML BTL BOTH EYES SCH ×6 (03:12→23:33)
[2021-11-06] MEDS: fentaNYL (PF). 1,000 MCG in SODIUM CHLORIDE 0.9% 80 ML IV SCH ×5 (03:12→21:07)
[2021-11-06 04:21] LABS: Basophils % (A) 0 %; Eosinophils # (A) 0.2 k/uL (0-0.7); Eosinophils % (A) 2 %; HCT 30.1 % (39.0-53.0); HGB 9.8 gm/dL (13.0-17.5); Lymphocytes % (A) 10 %; MCH 31.8 pg (25.0-35.0); MCHC 32.7 g/dL (31.0-37.0); Mean Platelet Volume 8.9; Monocytes # (A) 0.4 k/uL (0-1.0); Monocytes % (A) 4 %; Neutrophils # (A) 7.7 k/uL (1.3-7.7); Neutrophils % (A) 82 %; Platelet Count 250 k/uL (150-450); Poikilocytosis Slight; RDW 14.7 % (11.5-15.5); WBC 9.4 k/uL (3.8-10.6)
[2021-11-06 05:12] LABS: ABG Base Excess 7.4 mmol/L; ABG HCO3 31 mmol/L (21-25); ABG PCO2 42 mmHg (35-45); ABG PH 7.48 (7.35-7.45); ABG PO2 62 mmHg (83-108); ABG TCO2 32 mmol/L (19-24); Allen Test Performed? Yes
[2021-11-06 05:17] LABS: ALT 91 U/L (4-49); AST 36 U/L (17-59); Albumin 2.3 g/dL (3.5-5.0); Alkaline Phosphatase 100 U/L (38-126); Anion Gap 3 mmol/L; Blood Urea Nitrogen 21 mg/dL (9-20); Calcium 7.7 mg/dL (8.4-10.2); Carbon Dioxide 29 mmol/L (22-30); Chloride 105 mmol/L (98-107); Glucose 155 mg/dL (74-99); Potassium 3.6 mmol/L (3.5-5.1); Sodium 137 mmol/L (137-145); Total Bilirubin 0.6 mg/dL (0.2-1.3)
[2021-11-06 05:18] LABS: African American GFR (CKD) >90 (>60 ml/min/1.73 sqM); Non-African American GFR(CKD) >90 (>60 ml/min/1.73 sqM)
[2021-11-06 05:19] LABS: Glucose,Whole Blood 146 mg/dL (75-99)
[2021-11-06] MEDS: INSULIN ASPART (NovoLOG) 100 UNIT/ML VIAL SQ SCH ×4 (05:20→23:33)
[2021-11-06] MEDS ORDERED: Potassium Replacement Protocol 1 EACH MISC MISCELLANE PRN ×2 (05:47→08:06)
[2021-11-06] MEDS ORDERED: POTASSIUM BICARBONATE/CIT AC 20 MEQ TABLET.EFF NG-TUBE SCH ×2 (06:00→09:00)
[2021-11-06] MEDS: METOPROLOL TARTRATE 50 MG TAB PO SCH ×2 (06:31→22:42)
[2021-11-06] MEDS: PIPERACILLIN-TAZOBACTAM 3.375 GM in SODIUM CHLORIDE 0.9% 100 ML IVPB SCH ×3 (07:54→23:33)
[2021-11-06] MEDS: CHLORHEXIDINE GLUCONATE 15 ML CUP MUCOUS MEM SCH ×2 (08:04→21:06)
[2021-11-06] MEDS: APIXABAN 5 MG TAB PO SCH ×2 (08:04→21:06)
[2021-11-06] MEDS: SERTRALINE 50 MG TAB PO SCH (08:04)
[2021-11-06] MEDS: PREGABALIN 100 MG CAP PO SCH ×2 (08:04→21:07)
[2021-11-06] MEDS: ZINC SULFATE 220 MG CAP PO SCH (08:04)
[2021-11-06] MEDS: ASCORBIC ACID 500 MG TAB PO SCH (08:04)
[2021-11-06] MEDS: carBAMazepine 200 MG TAB PO SCH ×2 (08:05→21:06)
[2021-11-06] MEDS: DEXAMETHASONE SOD PHOSPHATE 10 MG/ML 1 ML VIAL IVP SCH (08:05)
[2021-11-06] MEDS: CHOLECALCIFEROL 25 MCG (1000 IU) TABLET PO SCH (08:05)
--- NOTE | 2021-11-06 08:35 | XR ---
EXAMINATION TYPE: XR chest 1V portable DATE OF EXAM: 11/06/2021 COMPARISON: Chest x-ray 11/05/2021 HISTORY: Covid pneumonia, intubated TECHNIQUE: Single frontal view of the chest is obtained. FINDINGS: Endotracheal tube, NG tube, left-sided subclavian central venous catheter are overlying ap propriate positions. Bilateral airspace disease persists with a similar appearance although there is interval obscured appearance of the left hemidiaphragm. There is no pneumothorax evident effusion. Ca rdiac mediastinal silhouette is stable. There are overlying artifacts. Surgical clips are present ove r the right neck, subcutaneous emphysema has nearly entirely resolved. IMPRESSION: There may be some interval increase in airspace disease, atelectasis at the left lung ba se. Patient is rotated. Correlate for pneumonia, ARDS
[2021-11-06] MEDS ORDERED: FUROSEMIDE 10 MG/ML 4 ML VIAL IV STA (08:38)
[2021-11-06] MEDS: DOCUSATE ORAL SOLN 100 MG/10 ML CUP PO SCH ×2 (09:26→21:06)
--- NOTE | 2021-11-06 10:07 | P.PN ---
Subjective Progress Note Date: 11/06/21 Principal diagnosis: The patient is seen today 11/03/2021 in follow-up in the intensive care unit. He was admitted on 10/23/2021. The patient had developed ongoing toxic respira tory failure secondary to COVID-19 pneumonia requiring eventual intubation mechanical ventilatory support on 10/30/2021. He remains intubated on mechanical ventilator. He is currently in a chair control mode with a Pi of 20 and a Ti of 0.9. Rate is 28. FiO2 is 45% and a PEEP is 16. Morning blood gases revealed a PaO2 of 67, pCO2 of 57 and a pH of 7.30. Chest x-ray continues to show bilateral patchy infiltrates. NG tube was in a similar location per respiratory therapy. Left subclavian triple lumen catheter in place. No evidence of pneumothorax. He remains sedated on propofol 50 mcg/kg/m. Paralyzed on Nimbex at 1.5 mcg/kg/m. He is on fentanyl at 2 mcg/h. 0.9 normal saline at 30 mL per hour. He is being nourished with vital AF at 29 MLS per hour which is goal. He is continued on Decadron, Eliquis, vitamin supplements. He is on Baricitinib. Sputum cultures now positive for strep agalactiae group B. He remains in a positive-100 ML balance. His been afebrile. Not requiring any pressors. White count 11.9. Hemoglobin 12.0. Platelets 266. Leukocytes 1.7. Sodium 138. Potassium 4.5. Creatinine 0.55. Glucose 166. AST 63. ALT 64. The patient is seen today 11/04/2021 in follow-up in the intensive care unit. He remains intubated and on the mechanical ventilator. Current settings are pressure control mode with the Pi by time of 28, Ti 0.90. Rate of 28, FiO2 85%, PEEP of 16. Peak pressure 37. Plateau pressure 35. Morning blood gases on 100% FiO2 revealed a PaO2 of 109, pCO2 69, pH 7.24. The patient had been weaned off his Nimbex yesterday however through the night he became quite restless and a synchronous with the mechanical ventilator. His PEEP had been down to 12 here chest x-ray showed worsening bilateral infiltrates. His PEEP was increased back to 16 and he was back on paralytics. He is currently on Nimbex at 1.5 mcg/kg/m. He is sedated with propofol at 65 mcg/kg/m. He is on fentanyl at 1.5 units milligrams per kilogram per hour. He's been nourished with vital HPI 30 ML's per hour which is goal. 0.9 normal saline at 30 MLS per hour. He is remaining in normal sinus rhythm. He has been intubated since 10/30/2021. He did test positive for CoVID back on 10/11/2021 at [facility]. Today's chest x- ray continues to show confluent airspace disease in the right upper lobe with some improvement and more confluent densities present along the right hemidiaphragm and bilateral airspace disease. There is some subcutaneous em physema in the right neck area. There is no evidence of pneumothorax or pleural effusion. Sputum culture is positive for strep agalactiae group B. Blood cultures as resulted this morning with a gram-positive cocci. White count 13.1. Hemoglobin 11.6. Lymphocytes 0.9. Sodium 139. Potassium 4.6. Bicarb 28. Creatinine 0.53. Glucose 178. He is continued on Eliquis, Decadron, vitamin supplements. He is on Levemir 20 units at bedtime along with a sliding scale. He is on antibiotics in the form of Zosyn. The patient is seen today 11/05/2021 in follow-up in the intensive care unit. He remains intubated and on the mechanical ventilator. Current settings are assist-control mode at a rate of 32, tidal on 450, FiO2 75% and a PEEP of 16 he became a synchronous with the vent yesterday while on pressure control mode. Morning blood gases revealed a pO2 of 67, pCO2 45, pH 7.44. Chest x-ray reveals similar findings of bilateral airspace disease, interstitial changes. No evidence of pneumothorax or pleural effusion. Endotracheal tube, nasogastric tube, left subclavian central line all in appropriate position. Subcutaneous emphysema of the right neck is improved. He remains on propofol at 65 mcg/kg/m. Nimbex at 1.5 mcg/kg/m. Fentanyl 2 mcg/kg/h. He has been nourished with Vital HP at 30 MLS per hour which is goal. He did receive vancomycin for positive blood culture which is resulting as Staphylococcus epidermidis, possible contamination. Previous sputum culture was positive for strep agalactiae, group B. He remains on Zosyn. He is also on bronchodilators. Anticoagulated with Eliquis. Remains on Decadron. He remains in a positive balance currently 2.7 L. White count 11.0. Hemoglobin 10.4. Sodium 137. Potassium 4.0. Creatinine 0.52. AST 52. ALT 115. The patient is seen today 11/06/2021 in follow-up in the intensive care unit. He remains intubated, sedated and paralyzed. He is on the mechanical ventilator to go ahead a rate of 32, Ativan 450, FiO2 55% and a PEEP of 16. Continue O2 saturations greater than 88%. Morning blood gases revealed a pO2 of 62, P CO2 42, pH 7.48. He is on propofol at 60 mcg/kg/m, Nimbex at 2 mcg/kg/m. Fentanyl 2 mcg/kg per hour. He remains on IV Zosyn. His issues with weaning have been hypertension. Also, he did not tolerate pressure control mode. Blood cultures positive for Staphylococcus epidermidis. [place] to be a contaminant. Sputum culture was positive for strep agalactiae group B. White count 9.4. Hemoglobin 9.8. Leukocytes 1.0. Sodium 137. Potassium 3.6. Creatinine 0.48. AST 36. ALT 91. He is continued on Eliquis, Decadron, vitamin supplements. Blood sugars controlled with Levemir and NovoLog. He is a bowel movement in several days. He'll be initiated on Colace. Tolerating tube feeds of vital HP at 30 MLS per hour which is goal. His x-ray continues to revealed bilateral airspace disease with atelectasis of left lung base. Objective - Vital Signs Vital signs: Vital Signs Temp 99.2 F 11/06/21 08:00 Pulse 64 11/06/21 09:00 Resp 43 H 11/06/21 09:00 BP 134/77 11/06/21 09:00 Pulse Ox 93 L 11/06/21 09:00 Intake & Output 11/05/21 11/06/21 11/06/21 18:59 06:59 18:59 Intake Total 9073.552 6484.178 571.993 Output Total 1455 505 95 Balance 339.643 4371.178 476.993 Weight 125 kg Intake: IV 316 376 79 0.9 NS KVO 280 340 70 Pressure bag 36 36 9 Intake, IV Titration 920.863 835.178 302.993 Amount Cisatracurium 200 mg In 191.82 187.2 156.48 Sodium Chloride 0.9% 180 ml @ 1.5 MCG/KG/MIN 10.8 mls/hr IV .[id number] [facility] Rx #:[id number] fentaNYL (PF). 1,000 mcg 208.467 208.520 22.316 In Sodium Chloride 0.9% 80 ml @ 0.5 MCG/KG/HR 4. 082 mls/hr IV .Q24H [facility] Rx#:[id number] propofoL 1,000 mg In 520.576 439.458 124.197 Empty Bag 1 bag @ Titrate IV .Q0M [facility] Rx#: [id number] Tube Feeding 360 360 90 Other 90 90 100 Output: Urine 1455 505 95 Other: Voiding Method Indwelling Catheter Indwelling Catheter Indwelling Catheter ABP, PAP, CO, CI - Last Documented Arterial Blood Pressure 104/48 - Exam GENERAL EXAM: Intubated, sedated, paralyzed 61-year-old male patient on the mechanical ventilator with FiO2 of 55% and a PEEP of 16. HEAD: Normocephalic. EYES: Sluggish reaction of pupils, equal size. NOSE: Clear with pink turbinates. THROAT: Oral endotracheal and gastric tube secured in place. No erythema or e xudates. NECK: No masses, no JVD. CHEST: No chest wall deformity. LUNGS: Equal air entry with coarse crackles in the posterior bases. CVS: S1 and S2 normal with no audible murmur, regular rhythm. ABDOMEN: No hepatosplenomegaly, normal bowel sounds, no guarding or rigidity. SPINE: No scoliosis or deformity SKIN: No rashes CENTRAL NERVOUS SYSTEM: Sedated, paralyzed, tone is normal in all 4 extremities. EXTREMITIES: There is no peripheral edema. No clubbing, no cyanosis. Peripheral pulses are intact. - Labs CBC & Chem 7: 11/06/21 04:00 11/06/21 04:00 Labs: Abnormal Lab Results - Last 24 Hours (Table) 11/05/21 11/05/21 11/05/21 Range/Units 12:04 18:25 23:32 RBC (4.30-5.90) m/uL Hgb (13.0-17.5) gm/dL Hct (39.0-53.0) % ABG pH (7.35-7.45) ABG pO2 (83-108) mmHg ABG HCO3 (21-25) mmol/L ABG Total CO2 (19-24) mmol/L ABG O2 Saturation (94-97) % BUN (9-20) mg/dL Creatinine (0.66-1.25) mg/dL Glucose (74-99) mg/dL POC Glucose (mg/dL) 195 H 209 H 171 H (75-99) mg/dL Calcium (8.4-10.2) mg/dL ALT (4-49) U/L Total Protein (6.3-8.2) g/dL Albumin (3.5-5.0) g/dL 11/06/21 11/06/21 11/06/21 Range/Units 04:00 04:00 05:18 RBC 3.10 L (4.30-5.90) m/uL Hgb 9.8 L (13.0-17.5) gm/dL Hct 30.1 L (39.0-53.0) % ABG pH (7.35-7.45) ABG pO2 (83-108) mmHg ABG HCO3 (21-25) mmol/L ABG Total CO2 (19-24) mmol/L ABG O2 Saturation (94-97) % BUN 21 H (9-20) mg/dL Creatinine 0.48 L (0.66-1.25) mg/dL Glucose 155 H (74-99) mg/dL POC Glucose (mg/dL) 146 H (75-99) mg/dL Calcium 7.7 L (8.4-10.2) mg/dL ALT 91 H (4-49) U/L Total Protein 5.0 L (6.3-8.2) g/dL Albumin 2.3 L (3.5-5.0) g/dL 11/06/21 Range/Units 05:50 RBC (4.30-5.90) m/uL Hgb (13.0-17.5) gm/dL Hct (39.0-53.0) % ABG pH 7.48 H (7.35-7.45) ABG pO2 62 L (83-108) mmHg ABG HCO3 31 H (21-25) mmol/L ABG Total CO2 32 H (19-24) mmol/L ABG O2 Saturation 93.0 L (94-97) % BUN (9-20) mg/dL Creatinine (0.66-1.25) mg/dL Glucose (74-99) mg/dL POC Glucose (mg/dL) (75-99) mg/dL Calcium (8.4-10.2) mg/dL ALT (4-49) U/L Total Protein (6.3-8.2) g/dL Albumin (3.5-5.0) g/dL Microbiology - Last 24 Hours (Table) 11/03/21 16:22 Blood Culture Gram Stain - Final Blood Blood Culture - Final Staphylococcus epidermidis Coagulase Negative Staph 11/03/21 15:40 Blood Culture - Preliminary Blood No Growth after 48 hours Assessment and Plan Assessment: 1 Acute hypoxic respiratory failure related to acute COVID-19 related pneumonia, patient presented to the emergency department on 10/23/2021 with 2 week history of symptoms, patient is outside the window for Remdesivir, he is a non-vaccinated adult. Initiated on Baricitinib. The patient developed acute hypoxemic respiratory failure requiring intubation mechanical ventilatory support on 10/30/2021. The patient sputum culture is now positive for strep agalactiae group B. Baricitinib discontinued on 11/03/2021. Initiated on Zosyn. Blood cultures positive for Staphylococcus epidermidis. Received one dose of vancomycin. Follow-up cultures pending. 2 Bilateral pulmonary emboli on computed tomography scan 10/26/2021. Continued on Eliquis. 3 Diabetes mellitus type 2 with diabetic neuropathy 4 Hypertension 5 Hyperlipidemia 6 Obstructive sleep apnea with previous history of UPPP 7 History of right eye melanoma with multiple surgeries 8 Previous history of CVA 9 Rheumatoid arthritis 10 History of gout 11 Previous history of MRSA infection in the wound on his back 12 Mild lactic acidosis, improved with IV hydration 13 Elevated inflammatory markers related to acute COVID-19 pneumonia 14 BPH with previous history of TURP Plan: The patient was seen and evaluated Chest x-ray, ABGs and labs reviewed Attempt to wean off Nimbex today May need to add Cleviprex for pressure control Lasix 40 mg IVP 1 Currently 55% FiO2 and a PEEP of 16 Continue to titrate the FiO2 as tolerated Sputum positive for strep agalactiae group B, continued on Zosyn Preliminary blood culture with staph epidermidis possible contamination Received a dose of vancomycin Follow-up cultures pending. We'll initiate Colace for bowel activity Continue Decadron, Eliquis, vitamin supplements Prognosis remains guarded Will most likely need tracheostomy and PEG tube placement We'll continue to follow Critical care time 36 minutes I, the cosigning physician, performed a history & physical examination of the pa cosme. Lungs sounds are coarse crackles in the bilateral bases. Maintaining O2 saturations in the 90s on the mechanical ventilator with an FiO2 of 55% and a PEEP of 16. I discussed the assessment and plan of care with my nurse practitioner, Jenna Batres. I attest to the above note as dictated by her.
[2021-11-06] MEDS: ALBUTEROL HFA INHALER INHALATION PRN ×3 (10:14→19:45)
[2021-11-06 11:26] LABS: Glucose,Whole Blood 254 mg/dL (75-99)
[2021-11-06] MEDS: CISATRACURIUM 200 MG in SODIUM CHLORIDE 0.9% 180 ML IV SCH ×2 (11:26→23:39)
--- NOTE | 2021-11-06 15:28 | P.PN ---
Progress Note - Text Progress Note Date: 11/06/21 Chief Complaint: Short of breath This is a pleasant 61-year-old patient, chronic stable medical conditions include diabetes, hypertension, hyperlipidemia, osteoarthritis, peripheral neuropathy, chronic gout. Patient presents with increasing shortness of breath. Cough. Clear sputum. Fever and chills. Tired rundown decrease appetite and diarrhea about 2 times a day. Patient tested positive for COVID-19 on October 09. His initial rapid COVID-19 was negative. In the send out came back positive. Patient did not take the vaccine against COVID-19. He is on 8 L of oxygen this morning. He is outside the window for Remdesivir. Admitted with COVID 19 pneumonitis, acute hypoxic respiratory failure. Started on Decadron. IV fluids. October 24: Feeling a bit better. Short of breath. 92% on 11 L. Did eat some. Sitting at the edge of the bed. A bit tired October 25: Short of breath. Cough. Oral intake fair. On 11 L of nasal cannula. Did sit up in a chair. October 26: Short of breath. Oral intake fair. Cough. 11 L nasal cannula. Dexamethasone. Chest CTA showing bilateral pulmonary embolism. October 27: Short of breath. Eating fair. 15 L nasal cannula. Tired. October 28: Remains on 15 L of nasal cannula. Eating about 50%. Short of breath. Tired. Trying to change his positions in bed. Including prone. October 29: Patient more short of breath and tired. Pulse oxing 87% on 15 L. Laying in bed. Eating around 50%. Late in the afternoon seen by pulmonary and patient be moved to ICU. October 30: Patient moved to ICU yesterday. Because of more respiratory compromise. Intubated earlier today. Drips include Diprivan, fentanyl, Nimbex, Levophed. Sinus rhythm. FiO2 19 a PEEP of 18. October 31: ICU: Ventilator/FiO2 19 a PEEP of 18. Drips include MX, propofol, fentanyl. Epinephrine. November 01: ICU: On the ventilator FiO2 55 PEEP of 16. Drips included propofol, Nimbex, fentanyl. 2 feeding at 29 mL an hour. November 02: ICU. Ventilator 45/16. Drips include fentanyl, propofol, Nimbex. 2 feeding at 20 mL an hour. November 03: ICU. Ventilator 45/12. Drips include fentanyl, propofol. 2 feeding at 29 mL an hour. November 04: ICU. Overnight patient went into respiratory distress. X-ray was looking worse. Patient put back on 100% FiO2 and a PEEP of 16. Patient is put back on drips of currently include fentanyl, propofol, Nimbex. 2 feeding. Sedated November 05: ICU: Current drips include fentanyl, propofol, Nimbex. Ventilator: 75/16. 2 feeding at 30 mL an hour. Sinus rhythm. Blood cultures coming back coagulase-negative/staph epidermidis likely contaminant November 06: ICU: Earlier today attempt was made to cut back on the Nimbex. Patient became restless. Had to be put back on the same. Current drips include fentanyl, Nimbex, propofol. FiO2 55 and a PEEP of 16. Telemetry shows sinus rhythm. 2 feeding at 30 mL an hour. Review of systems: Intubated Active Medications Acetaminophen (Acetaminophen Tab 325 Mg Tab) 650 mg PO Q6HR PRN PRN Reason: Mild Pain or Fever > 100.5 Last Admin: 10/29/21 15:46 Dose: 650 mg Documented by: Albuterol Sulfate (Albuterol Hfa Inhaler) 2 puff INHALATION RT-QID PRN PRN Reason: Shortness Of Breath Last Admin: 11/06/21 10:14 Dose: 2 puff Documented by: Apixaban (Apixaban 5 Mg Tab) 5 mg PO BID [facility]; Protocol Last Admin: 11/06/21 08:04 Dose: 5 mg Documented by: Artificial Tears (Artificial Tears-Hypromellose Drops 15 Ml Btl) 2 drops BOTH EYES Q4HR [facility] Last Admin: 11/06/21 11:26 Dose: 2 drops Documented by: Ascorbic Acid (Ascorbic Acid 500 Mg Tab) 1,000 mg PO DAILY [facility] Last Admin: 11/06/21 08:04 Dose: 1,000 mg Documented by: Carbamazepine (Carbamazepine 200 Mg Tab) 400 mg PO BID [facility] Last Admin: 11/06/21 08:05 Dose: 400 mg Documented by: Chlorhexidine Gluconate (Chlorhexidine Gluconate 15 Ml Cup) 15 ml MUCOUS MEM BID [facility] Last Admin: 11/06/21 08:04 Dose: 15 ml Documented by: Cholecalciferol (Cholecalciferol 25 Mcg (1000 Iu) Tablet) 25 mcg PO DAILY [facility] Last Admin: 11/06/21 08:05 Dose: 25 mcg Documented by: Dexamethasone Sodium Phosphate (Dexamethasone Sod Phosphate 10 Mg/Ml 1 Ml Vial) 6 mg IVP DAILY [facility] Last Admin: 11/06/21 08:05 Dose: 6 mg Documented by: Docusate Sodium (Docusate Oral Soln 100 Mg/10 Ml Cup) 100 mg PO BID [facility] Last Admin: 11/06/21 09:26 Dose: 100 mg Documented by: Propofol 1,000 mg/ IV Solution 100 mls @ 0 mls/hr IV .Q0M [facility]; Protocol Last Admin: 11/06/21 12:29 Dose: 60 mcg/kg/min, 45 mls/hr Documented by: Fentanyl Citrate 1,000 mcg/ (Sodium Chloride) 100 mls @ 4.082 mls/hr IV .Q24H [facility]; Protocol Last Admin: 11/06/21 12:30 Dose: 2 mcg/kg/hr, 16.329 mls/hr Documented by: Piperacillin Sod/Tazobactam (Sod 3.375 gm/ Sodium Chloride) 100 mls @ 25 mls/hr IVPB Q8HR [facility] Last Admin: 11/06/21 07:54 Dose: 25 mls/hr Documented by: Cisatracurium Besylate 200 mg/ (Sodium Chloride) 200 mls @ 10.8 mls/hr IV .[id number] [facility]; Protocol Last Admin: 11/06/21 11:26 Dose: 2 mcg/kg/min, 14.4 mls/hr Documented by: Insulin Aspart (Insulin Aspart (Novolog) 100 Unit/Ml Vial) 0 unit SQ Q6HR [facility]; Protocol Last Admin: 11/06/21 11:27 Dose: 8 unit Documented by: Insulin Detemir (Insulin Detemir (Levemir) 100 Unit/Ml Syr) 20 unit SQ HS [facility] Last Admin: 11/05/21 20:04 Dose: 20 unit Documented by: Metoprolol Tartrate (Metoprolol Tartrate 50 Mg Tab) 50 mg PO BID [facility] Last Admin: 11/06/21 06:31 Dose: 50 mg Documented by: Miscellaneous Information (Potassium Replacement Protocol 1 Each Misc) 1 each MISCELLANE DAILY PRN; Protocol PRN Reason: Per Protocol Miscellaneous Information (Potassium Replacement Protocol 1 Each Misc) 1 each MISCELLANE DAILY PRN; Protocol PRN Reason: Per Protocol Pregabalin (Pregabalin 100 Mg Cap) 200 mg PO BID [facility] Last Admin: 11/06/21 08:04 Dose: 200 mg Documented by: Sertraline HCl (Sertraline 50 Mg Tab) 50 mg PO DAILY [facility] Last Admin: 11/06/21 08:04 Dose: 50 mg Documented by: Zinc Sulfate (Zinc Sulfate 220 Mg Cap) 220 mg PO DAILY [facility] Last Admin: 11/06/21 08:04 Dose: 220 mg Documented by: Social history: Patient is on Social Security. Does not smoke or drink alcohol. Patient's daughters family lives with him. Family history: Father at the age of 40 with heart attack Physical examination: VITAL SIGNS: 98.3, 62, 30, 10 9 x 58, 94% on the ventilator GENERAL: Laying in bed, intubated LUNGS: Respiratory rate increased,. PSYCH: Unable to assess Rest of the exam per nursing and pulmonary INVESTIGATIONS, reviewed in the clinical context: November 06: WBC 9.4 hemoglobin 9.8 platelets 250 potassium 3.6 creatinine 0.48 AST 36 ALT 91 November 05: WBC 11 hemoglobin 10.4 platelets 218 potassium 4 creatinine 0.5 to Blood culture positive for Staphylococcus epidermidis/coagulates negative. November 04: WBC 13.1 hemoglobin 11.6 potassium 4.6 creatinine 0.53. Chest x-ray film personally reviewed by me-bilateral infiltrates November 03: White count 11.9 hemoglobin 12 platelets 266 potassium 4.2 creatinine 0.55 AST 63 ALT 64 pro-calcitonin 0.12 November 02: White count 8 hemoglobin 10.5 potassium 4.4. 23 creatinine 0.5 to November 01: White count 11.1 hemoglobin 11.6 platelets 203 d-dimer 10.6 potassium 4.7 creatinine 0.73 October 31: White count 12.1 hemoglobin 12.2 platelets 240 potassium 4.8 creatinine 0.61 October 30: White count 12.9 hemoglobin 13.1 potassium 5.6 creatinine 0.69 October 29: White count 13.1 hemoglobin 13.8 d-dimer 16.2 potassium 4.7 creatinine 0.76 October 28: D-dimer 13.4 to October 26: D-dimer 8.48 CRP 24 Chest CTA [October 26: biLateral pulmonary embolism Doppler ultrasound lower extremity: Negative for DVT October 24: White count 9.7 hemoglobin 15.3 platelets 221 d-dimer 1.93 progression 4.2 creatinine 0.71 CRP 5.5 pro-calcitonin 0.08 White count 9.9 hemoglobin 16 platelets 234 d-dimer 0.98 sodium 141 potassium 3.4 creatinine 0.81 Lactic acid 2.9 LDH 1422 CRP 7.5 EKG tracing personally reviewed by me-normal sinus rhythm. Nonspecific ST segment changes. Chest x-ray film personally reviewed by me-bilateral infiltrates Assessment and plan: -Acute severe COVID 19 pneumonitis in a patient who did not take the COVID-19 vaccine: Slow to respond Dexamethasone, vitamin C, vitamin D, zinc. Patient's outside the window for Remdesivir. -Acute hypoxic respiratory failure from COVID-19: Slow to respond intubated October 30. FiO2 55 and a PEEP of 16 -Bilateral pulmonary embolism secondary to COVID-19 Eliquis -Essential hypertension Lopressor 50 mg twice a day, Cozaar 50 mg daily -Diabetes mellitus type 2, on oral hypoglycemic, uncontrolled with hyperglycemia Glucophage thousand milligrams twice a day. Follow Accu-Chek. Precose. Levemir 20 units daily at bedtime -Chronic insomnia for medical conditions Elavil 50 mg daily at bedtime -Hyperlipidemia TriCor 48 mg daily -Obstructive sleep apnea On CPAP at home -Diabetic peripheral neuropathy Lyrica 200 mg twice daily -Full code Drips include : fentanyl , propofol Nimbex. Ventilator. Tube feeding . Unsuccessful attempt at weaning off Nimbex. Patient became restless. Placed back on the same. Critical.
[2021-11-06 18:35] LABS: Glucose,Whole Blood 216 mg/dL (75-99)
[2021-11-06 18:56] LABS: Appearance,Urine Clear (Clear); Bilirubin,Urine Negative (Negative); Blood,Urine Small (Negative); Color,Urine Yellow; Glucose,Urine (UA) Negative (Negative); Ketones,Urine Negative (Negative); Leukocyte Esterase,Urine Moderate (Negative); Mucus,Urine Rare /hpf; Nitrite,Urine Negative (Negative); Protein,Urine Trace (Negative); RBC,Urine 15 /hpf (0-5); Specific Gravity,Urine 1.032 (1.001-1.035); WBC,Urine 4 /hpf (0-5)
[2021-11-06] MEDS: INSULIN DETEMIR (LEVEMIR) 100 UNIT/ML SYR SQ SCH (21:06)
[2021-11-06 23:31] LABS: Glucose,Whole Blood 197 mg/dL (75-99)
[2021-11-07] MEDS: fentaNYL (PF). 1,000 MCG in SODIUM CHLORIDE 0.9% 80 ML IV SCH ×3 (01:44→09:52)
[2021-11-07] MEDS: ARTIFICIAL TEARS-HYPROMELLOSE DROPS 15 ML BTL BOTH EYES SCH ×6 (04:27→23:01)
[2021-11-07 05:26] LABS: Basophils % (A) 0 %; Eosinophils # (A) 0.2 k/uL (0-0.7); Eosinophils % (A) 2 %; HCT 31.7 % (39.0-53.0); HGB 10.1 gm/dL (13.0-17.5); Lymphocytes # (A) 1.3 k/uL (1.0-4.8); Lymphocytes % (A) 17 %; MCH 31.6 pg (25.0-35.0); Macrocytosis Slight; Mean Platelet Volume 8.3; Monocytes # (A) 0.3 k/uL (0-1.0); Monocytes % (A) 4 %; Neutrophils # (A) 5.6 k/uL (1.3-7.7); Neutrophils % (A) 74 %; Platelet Count 269 k/uL (150-450); Poikilocytosis Slight; WBC 7.6 k/uL (3.8-10.6)
[2021-11-07 05:33] LABS: ABG Base Excess 9.2 mmol/L; ABG HCO3 33 mmol/L (21-25); ABG Oxygen Saturation 94.3 % (94-97); ABG PCO2 43 mmHg (35-45); ABG PH 7.49 (7.35-7.45); ABG PO2 68 mmHg (83-108); ABG TCO2 34 mmol/L (19-24); Allen Test Performed? Yes
[2021-11-07 05:42] LABS: Glucose,Whole Blood 193 mg/dL (75-99)
[2021-11-07 05:47] LABS: ALT 75 U/L (4-49); AST 30 U/L (17-59); African American GFR (CKD) >90 (>60 ml/min/1.73 sqM); Albumin 2.5 g/dL (3.5-5.0); Alkaline Phosphatase 102 U/L (38-126); Anion Gap 4 mmol/L; Blood Urea Nitrogen 20 mg/dL (9-20); Calcium 7.8 mg/dL (8.4-10.2); Carbon Dioxide 30 mmol/L (22-30); Chloride 103 mmol/L (98-107); Glucose 160 mg/dL (74-99); Non-African American GFR(CKD) >90 (>60 ml/min/1.73 sqM); Potassium 3.4 mmol/L (3.5-5.1); Sodium 137 mmol/L (137-145); Total Bilirubin 0.7 mg/dL (0.2-1.3); Total Protein 5.3 g/dL (6.3-8.2)
[2021-11-07 06:14] LABS: Glucose,Whole Blood 176 mg/dL (75-99)
[2021-11-07] MEDS: INSULIN ASPART (NovoLOG) 100 UNIT/ML VIAL SQ SCH ×4 (06:15→23:41)
[2021-11-07] MEDS: POTASSIUM BICARBONATE/CIT AC 20 MEQ TABLET.EFF NG-TUBE SCH ×2 (06:20→06:48)
--- NOTE | 2021-11-07 07:32 | XR ---
EXAMINATION TYPE: XR chest 1V portable DATE OF EXAM: 11/07/2021 CLINICAL HISTORY: Difficulty breathing and covid progress study. TECHNIQUE: Single AP portable semiupright view of the chest is obtained. COMPARISON: Chest x-ray from one day earlier and older studies. FINDINGS: Stable endotracheal tube and orogastric tube. Stable left-sided subclavian central venous catheter. Right supraclavicular surgical clips redemonstrated. Current study suboptimally as does not include entire left lung base. Persistent bilateral multifocal increased opacities. Cardiac silhouette size is stable and mildly enlarged. Osseous structures are i ntact. IMPRESSION: Bilateral multifocal increased opacities consistent with covid-19 infection and/or ARDS r edemonstrated. No significant change from one day earlier.
[2021-11-07] MEDS: ALBUTEROL HFA INHALER INHALATION PRN ×4 (07:34→19:57)
[2021-11-07] MEDS ORDERED: FUROSEMIDE 10 MG/ML 10 ML VIAL IV STA (08:39)
[2021-11-07] MEDS: PIPERACILLIN-TAZOBACTAM 3.375 GM in SODIUM CHLORIDE 0.9% 100 ML IVPB SCH ×3 (08:41→23:02)
[2021-11-07] MEDS: DEXAMETHASONE SOD PHOSPHATE 10 MG/ML 1 ML VIAL IVP SCH (08:54)
[2021-11-07] MEDS: PREGABALIN 100 MG CAP PO SCH ×2 (08:54→20:49)
[2021-11-07] MEDS: CHLORHEXIDINE GLUCONATE 15 ML CUP MUCOUS MEM SCH ×2 (08:54→20:49)
[2021-11-07] MEDS: ZINC SULFATE 220 MG CAP PO SCH (08:54)
[2021-11-07] MEDS: APIXABAN 5 MG TAB PO SCH ×2 (08:54→20:49)
[2021-11-07] MEDS: ASCORBIC ACID 500 MG TAB PO SCH (08:55)
[2021-11-07] MEDS: CHOLECALCIFEROL 25 MCG (1000 IU) TABLET PO SCH (08:55)
[2021-11-07] MEDS: carBAMazepine 200 MG TAB PO SCH ×2 (08:55→20:50)
[2021-11-07] MEDS: DOCUSATE ORAL SOLN 100 MG/10 ML CUP PO SCH ×2 (08:55→20:50)
[2021-11-07] MEDS: SERTRALINE 50 MG TAB PO SCH (08:56)
[2021-11-07] MEDS: METOPROLOL TARTRATE 50 MG TAB PO SCH ×2 (09:53→23:41)
[2021-11-07] MEDS: CISATRACURIUM 200 MG in SODIUM CHLORIDE 0.9% 180 ML IV SCH (10:28)
--- NOTE | 2021-11-07 10:46 | P.PN ---
Subjective Progress Note Date: 11/07/21 Principal diagnosis: The patient is seen today 11/03/2021 in follow-up in the intensive care unit. He was admitted on 10/23/2021. The patient had developed ongoing toxic respira tory failure secondary to COVID-19 pneumonia requiring eventual intubation mechanical ventilatory support on 10/30/2021. He remains intubated on mechanical ventilator. He is currently in a chair control mode with a Pi of 20 and a Ti of 0.9. Rate is 28. FiO2 is 45% and a PEEP is 16. Morning blood gases revealed a PaO2 of 67, pCO2 of 57 and a pH of 7.30. Chest x-ray continues to show bilateral patchy infiltrates. NG tube was in a similar location per respiratory therapy. Left subclavian triple lumen catheter in place. No evidence of pneumothorax. He remains sedated on propofol 50 mcg/kg/m. Paralyzed on Nimbex at 1.5 mcg/kg/m. He is on fentanyl at 2 mcg/h. 0.9 normal saline at 30 mL per hour. He is being nourished with vital AF at 29 MLS per hour which is goal. He is continued on Decadron, Eliquis, vitamin supplements. He is on Baricitinib. Sputum cultures now positive for strep agalactiae group B. He remains in a positive-100 ML balance. His been afebrile. Not requiring any pressors. White count 11.9. Hemoglobin 12.0. Platelets 266. Leukocytes 1.7. Sodium 138. Potassium 4.5. Creatinine 0.55. Glucose 166. AST 63. ALT 64. The patient is seen today 11/04/2021 in follow-up in the intensive care unit. He remains intubated and on the mechanical ventilator. Current settings are pressure control mode with the Pi by time of 28, Ti 0.90. Rate of 28, FiO2 85%, PEEP of 16. Peak pressure 37. Plateau pressure 35. Morning blood gases on 100% FiO2 revealed a PaO2 of 109, pCO2 69, pH 7.24. The patient had been weaned off his Nimbex yesterday however through the night he became quite restless and a synchronous with the mechanical ventilator. His PEEP had been down to 12 here chest x-ray showed worsening bilateral infiltrates. His PEEP was increased back to 16 and he was back on paralytics. He is currently on Nimbex at 1.5 mcg/kg/m. He is sedated with propofol at 65 mcg/kg/m. He is on fentanyl at 1.5 units milligrams per kilogram per hour. He's been nourished with vital HPI 30 ML's per hour which is goal. 0.9 normal saline at 30 MLS per hour. He is remaining in normal sinus rhythm. He has been intubated since 10/30/2021. He did test positive for CoVID back on 10/11/2021 at [facility]. Today's chest x- ray continues to show confluent airspace disease in the right upper lobe with some improvement and more confluent densities present along the right hemidiaphragm and bilateral airspace disease. There is some subcutaneous em physema in the right neck area. There is no evidence of pneumothorax or pleural effusion. Sputum culture is positive for strep agalactiae group B. Blood cultures as resulted this morning with a gram-positive cocci. White count 13.1. Hemoglobin 11.6. Lymphocytes 0.9. Sodium 139. Potassium 4.6. Bicarb 28. Creatinine 0.53. Glucose 178. He is continued on Eliquis, Decadron, vitamin supplements. He is on Levemir 20 units at bedtime along with a sliding scale. He is on antibiotics in the form of Zosyn. The patient is seen today 11/05/2021 in follow-up in the intensive care unit. He remains intubated and on the mechanical ventilator. Current settings are assist-control mode at a rate of 32, tidal on 450, FiO2 75% and a PEEP of 16 he became a synchronous with the vent yesterday while on pressure control mode. Morning blood gases revealed a pO2 of 67, pCO2 45, pH 7.44. Chest x-ray reveals similar findings of bilateral airspace disease, interstitial changes. No evidence of pneumothorax or pleural effusion. Endotracheal tube, nasogastric tube, left subclavian central line all in appropriate position. Subcutaneous emphysema of the right neck is improved. He remains on propofol at 65 mcg/kg/m. Nimbex at 1.5 mcg/kg/m. Fentanyl 2 mcg/kg/h. He has been nourished with Vital HP at 30 MLS per hour which is goal. He did receive vancomycin for positive blood culture which is resulting as Staphylococcus epidermidis, possible contamination. Previous sputum culture was positive for strep agalactiae, group B. He remains on Zosyn. He is also on bronchodilators. Anticoagulated with Eliquis. Remains on Decadron. He remains in a positive balance currently 2.7 L. White count 11.0. Hemoglobin 10.4. Sodium 137. Potassium 4.0. Creatinine 0.52. AST 52. ALT 115. The patient is seen today 11/06/2021 in follow-up in the intensive care unit. He remains intubated, sedated and paralyzed. He is on the mechanical ventilator to go ahead a rate of 32, Ativan 450, FiO2 55% and a PEEP of 16. Continue O2 saturations greater than 88%. Morning blood gases revealed a pO2 of 62, P CO2 42, pH 7.48. He is on propofol at 60 mcg/kg/m, Nimbex at 2 mcg/kg/m. Fentanyl 2 mcg/kg per hour. He remains on IV Zosyn. His issues with weaning have been hypertension. Also, he did not tolerate pressure control mode. Blood cultures positive for Staphylococcus epidermidis. [place] to be a contaminant. Sputum culture was positive for strep agalactiae group B. White count 9.4. Hemoglobin 9.8. Leukocytes 1.0. Sodium 137. Potassium 3.6. Creatinine 0.48. AST 36. ALT 91. He is continued on Eliquis, Decadron, vitamin supplements. Blood sugars controlled with Levemir and NovoLog. He is a bowel movement in several days. He'll be initiated on Colace. Tolerating tube feeds of vital HP at 30 MLS per hour which is goal. His x-ray continues to revealed bilateral airspace disease with atelectasis of left lung base. The patient is seen today 11/07/2021 in follow-up in the intensive care unit. He remains intubated, sedated, paralyzed on the mechanical ventilator. Cu rrently in volume assist control mode at a rate of 32, total of 450, FiO2 55% and a PEEP of 16. Morning blood gases revealed a PaO2 of 68, pCO2 43, pH 7.49. He remains on propofol at 60 mcg/kg/m. Fentanyl 2.0 mg/kg/h. Pneumovax at 2 mcg/kg/m. Normal saline at 20 ML's per hour. He is being nourished with vital HPI 23 ML's per hour which is goal. He failed a trial off Nimbex yesterday with oxygen desaturations and hypertension. He became asynchronous with the mechanical ventilator. chest x-ray continues to revealed bilateral multifocal increase opacities consistent with COVID-19. white count 7.6. Hemoglobin 10.1. Sodium 137. Potassium 3.4. Creatinine 0.59. Glucose 160.he remains on Eliquis, Decadron, vitamin supplements. Blood sugars controlled with Levemir and NovoLog. He'll be given additional Lasix 60 mg IVP today. Objective - Vital Signs Vital signs: Vital Signs Temp 98.5 F 11/07/21 08:00 Pulse 52 L 11/07/21 09:00 Resp 32 H 11/07/21 09:00 BP 102/65 11/07/21 09:00 Pulse Ox 90 L 11/07/21 09:00 Intake & Output 11/06/21 11/07/21 11/07/21 18:59 06:59 18:59 Intake Total 1129.897 8469.92 552.567 Output Total 1080 380 30 Balance 240.433 6336.92 522.567 Weight 125 kg 126.7 kg Intake: IV 286 276 49 0.9 NS KVO 250 240 40 Pressure bag 36 36 9 Intake, IV Titration 817.862 958.92 480.567 Amount Cisatracurium 200 mg In 159.24 175.92 155.76 Sodium Chloride 0.9% 180 ml @ 1.5 MCG/KG/MIN 10.8 mls/hr IV .[id number] [facility] Rx #:[id number] Piperacillin-Tazobactam 3 100 .375 gm In Sodium Chloride 0.9% 100 ml @ 25 mls/hr IVPB Q8HR [facility] Rx# :[id number] fentaNYL (PF). 1,000 mcg 167.372 298 59.057 In Sodium Chloride 0.9% 80 ml @ 0.5 MCG/KG/HR 4. 082 mls/hr IV .Q24H [facility] Rx#:[id number] propofoL 1,000 mg In 491.250 485 165.75 Empty Bag 1 bag @ Titrate IV .Q0M [facility] Rx#: [id number] Tube Feeding 360 297 23 Other 130 90 Output: Urine 1080 380 30 Other: Voiding Method Indwelling Catheter Indwelling Catheter ABP, PAP, CO, CI - Last Documented Arterial Blood Pressure 103/59 - Exam GENERAL EXAM: Intubated, sedated, paralyzed 61-year-old male patient on the mechanical ventilator with FiO2 of 55% and a PEEP of 16. HEAD: Normocephalic. EYES: Sluggish reaction of pupils, equal size. NOSE: Clear with pink turbinates. THROAT: Oral endotracheal and gastric tube secured in place. No erythema or exudates. NECK: No masses, no JVD. CHEST: No chest wall deformity. LUNGS: Equal air entry with coarse crackles in the posterior bases. CVS: S1 and S2 normal with no audible murmur, regular rhythm. ABDOMEN: No hepatosplenomegaly, normal bowel sounds, no guarding or rigidity. SPINE: No scoliosis or deformity SKIN: No rashes CENTRAL NERVOUS SYSTEM: Sedated, paralyzed, tone is normal in all 4 extremities. EXTREMITIES: There is no peripheral edema. No clubbing, no cyanosis. P eripheral pulses are intact. - Labs CBC & Chem 7: 11/07/21 04:05 11/07/21 04:05 Labs: Abnormal Lab Results - Last 24 Hours (Table) 11/06/21 11/06/21 11/06/21 Range/Units 04:00 11:22 18:33 RBC (4.30-5.90) m/uL Hgb (13.0-17.5) gm/dL Hct (39.0-53.0) % ABG pH (7.35-7.45) ABG pO2 (83-108) mmHg ABG HCO3 (21-25) mmol/L ABG Total CO2 (19-24) mmol/L Potassium (3.5-5.1) mmol/L Creatinine (0.66-1.25) mg/dL Glucose (74-99) mg/dL POC Glucose (mg/dL) 254 H 216 H (75-99) mg/dL Calcium (8.4-10.2) mg/dL ALT (4-49) U/L Total Protein (6.3-8.2) g/dL Albumin (3.5-5.0) g/dL Procalcitonin 0.31 H (0.02-0.09) ng/mL Urine Protein (Negative) Urine Blood (Negative) Ur Leukocyte Esterase (Negative) Urine RBC (0-5) /hpf Urine Mucus (None) /hpf 11/06/21 11/06/21 11/07/21 Range/Units 18:39 23:29 04:05 RBC 3.20 L (4.30-5.90) m/uL Hgb 10.1 L (13.0-17.5) gm/dL Hct 31.7 L (39.0-53.0) % ABG pH (7.35-7.45) ABG pO2 (83-108) mmHg ABG HCO3 (21-25) mmol/L ABG Total CO2 (19-24) mmol/L Potassium (3.5-5.1) mmol/L Creatinine (0.66-1.25) mg/dL Glucose (74-99) mg/dL POC Glucose (mg/dL) 197 H (75-99) mg/dL Calcium (8.4-10.2) mg/dL ALT (4-49) U/L Total Protein (6.3-8.2) g/dL Albumin (3.5-5.0) g/dL Procalcitonin (0.02-0.09) ng/mL Urine Protein Trace H (Negative) Urine Blood Small H (Negative) Ur Leukocyte Esterase Moderate H (Negative) Urine RBC 15 H (0-5) /hpf Urine Mucus Rare H (None) /hpf 11/07/21 11/07/21 11/07/21 Range/Units 04:05 05:30 05:35 RBC (4.30-5.90) m/uL Hgb (13.0-17.5) gm/dL Hct (39.0-53.0) % ABG pH 7.49 H (7.35-7.45) ABG pO2 68 L (83-108) mmHg ABG HCO3 33 H (21-25) mmol/L ABG Total CO2 34 H (19-24) mmol/L Potassium 3.4 L (3.5-5.1) mmol/L Creatinine 0.52 L (0.66-1.25) mg/dL Glucose 160 H (74-99) mg/dL POC Glucose (mg/dL) 193 H (75-99) mg/dL Calcium 7.8 L (8.4-10.2) mg/dL ALT 75 H (4-49) U/L Total Protein 5.3 L (6.3-8.2) g/dL Albumin 2.5 L (3.5-5.0) g/dL Procalcitonin (0.02-0.09) ng/mL Urine Protein (Negative) Urine Blood (Negative) Ur Leukocyte Esterase (Negative) Urine RBC (0-5) /hpf Urine Mucus (None) /hpf 11/07/21 Range/Units 06:12 RBC (4.30-5.90) m/uL Hgb (13.0-17.5) gm/dL Hct (39.0-53.0) % ABG pH (7.35-7.45) ABG pO2 (83-108) mmHg ABG HCO3 (21-25) mmol/L ABG Total CO2 (19-24) mmol/L Potassium (3.5-5.1) mmol/L Creatinine (0.66-1.25) mg/dL Glucose (74-99) mg/dL POC Glucose (mg/dL) 176 H (75-99) mg/dL Calcium (8.4-10.2) mg/dL ALT (4-49) U/L Total Protein (6.3-8.2) g/dL Albumin (3.5-5.0) g/dL Procalcitonin (0.02-0.09) ng/mL Urine Protein (Negative) Urine Blood (Negative) Ur Leukocyte Esterase (Negative) Urine RBC (0-5) /hpf Urine Mucus (None) /hpf Microbiology - Last 24 Hours (Table) 11/06/21 10:07 Blood Culture Gram Stain - Preliminary Blood Blood Culture - Final 11/06/21 10:07 Blood Culture - Final Blood 11/03/21 15:40 Blood Culture - Preliminary Blood No Growth after 72 hours 11/03/21 16:22 Blood Culture Gram Stain - Final Blood Blood Culture - Final Staphylococcus epidermidis Coagulase Negative Staph Assessment and Plan Assessment: 1 Acute hypoxic respiratory failure related to acute COVID-19 related pneumonia, patient presented to the emergency department on 10/23/2021 with 2 week history of symptoms, patient is outside the window for Remdesivir, he is a non-vaccinated adult. Initiated on Baricitinib. The patient developed acute hypoxemic respiratory failure requiring intubation mechanical ventilatory support on 10/30/2021. The patient sputum culture is now positive for strep agalactiae group B. Baricitinib discontinued on 11/03/2021. Initiated on Zosyn. Blood cultures positive for Staphylococcus epidermidis. Received one dose of vancomycin. Follow-up cultures revealing no growth thus far. 2 Bilateral pulmonary emboli on computed tomography scan 10/26/2021. Continued on Eliquis. 3 Diabetes mellitus type 2 with diabetic neuropathy 4 Hypertension 5 Hyperlipidemia 6 Obstructive sleep apnea with previous history of UPPP 7 History of right eye melanoma with multiple surgeries 8 Previous history of CVA 9 Rheumatoid arthritis 10 History of gout 11 Previous history of MRSA infection in the wound on his back 12 Mild lactic acidosis, improved with IV hydration 13 Elevated inflammatory markers related to acute COVID-19 pneumonia 14 BPH with previous history of TURP Plan: The patient was seen and evaluated Chest x-ray, ABGs and labs reviewed Attempt to wean off Nimbex again today Lasix 60 mg IVP 1 today Currently 55% FiO2 and a PEEP of 16 Continue to titrate the FiO2 as tolerated Continued on Zosyn Continue Decadron, Eliquis, vitamin supplements Prognosis remains guarded Will most likely need tracheostomy and PEG tube placement We'll continue to follow Critical care time 35 minutes I, the cosigning physician, performed a history & physical examination of the patient. Lungs sounds are coarse crackles in the bilateral bases. Maintaining O2 saturations in the 90s on the mechanical ventilator with an FiO2 of 55% and a PEEP of 16. I discussed the assessment and plan of care with my nurse practitioner, Jenna Batres. I attest to the above note as dictated by her.
[2021-11-07 11:38] LABS: Glucose,Whole Blood 192 mg/dL (75-99)
[2021-11-07] MEDS: fentaNYL (PF) 2,500 MCG in SODIUM CHLORIDE 0.9% 200 ML IV SCH ×2 (14:06→23:49)
[2021-11-07 17:36] LABS: Glucose,Whole Blood 234 mg/dL (75-99)
[2021-11-07] MEDS ORDERED: POTASSIUM BICARBONATE/CIT AC 20 MEQ TABLET.EFF NG-TUBE SCH (19:00)
--- NOTE | 2021-11-07 20:04 | P.PN ---
Progress Note - Text Progress Note Date: 11/07/21 Chief Complaint: Short of breath This is a pleasant 61-year-old patient, chronic stable medical conditions include diabetes, hypertension, hyperlipidemia, osteoarthritis, peripheral neuropathy, chronic gout. Patient presents with increasing shortness of breath. Cough. Clear sputum. Fever and chills. Tired rundown decrease appetite and diarrhea about 2 times a day. Patient tested positive for COVID-19 on October 09. His initial rapid COVID-19 was negative. In the send out came back positive. Patient did not take the vaccine against COVID-19. He is on 8 L of oxygen this morning. He is outside the window for Remdesivir. Admitted with COVID 19 pneumonitis, acute hypoxic respiratory failure. Started on Decadron. IV fluids. October 24: Feeling a bit better. Short of breath. 92% on 11 L. Did eat some. Sitting at the edge of the bed. A bit tired October 25: Short of breath. Cough. Oral intake fair. On 11 L of nasal cannula. Did sit up in a chair. October 26: Short of breath. Oral intake fair. Cough. 11 L nasal cannula. Dexamethasone. Chest CTA showing bilateral pulmonary embolism. October 27: Short of breath. Eating fair. 15 L nasal cannula. Tired. October 28: Remains on 15 L of nasal cannula. Eating about 50%. Short of breath. Tired. Trying to change his positions in bed. Including prone. October 29: Patient more short of breath and tired. Pulse oxing 87% on 15 L. Laying in bed. Eating around 50%. Late in the afternoon seen by pulmonary and patient be moved to ICU. October 30: Patient moved to ICU yesterday. Because of more respiratory compromise. Intubated earlier today. Drips include Diprivan, fentanyl, Nimbex, Levophed. Sinus rhythm. FiO2 19 a PEEP of 18. October 31: ICU: Ventilator/FiO2 19 a PEEP of 18. Drips include MX, propofol, fentanyl. Epinephrine. November 01: ICU: On the ventilator FiO2 55 PEEP of 16. Drips included propofol, Nimbex, fentanyl. 2 feeding at 29 mL an hour. November 02: ICU. Ventilator 45/16. Drips include fentanyl, propofol, Nimbex. 2 feeding at 20 mL an hour. November 03: ICU. Ventilator 45/12. Drips include fentanyl, propofol. 2 feeding at 29 mL an hour. November 04: ICU. Overnight patient went into respiratory distress. X-ray was looking worse. Patient put back on 100% FiO2 and a PEEP of 16. Patient is put back on drips of currently include fentanyl, propofol, Nimbex. 2 feeding. Sedated November 05: ICU: Current drips include fentanyl, propofol, Nimbex. Ventilator: 75/16. 2 feeding at 30 mL an hour. Sinus rhythm. Blood cultures coming back coagulase-negative/staph epidermidis likely contaminant November 06: ICU: Earlier today attempt was made to cut back on the Nimbex. Patient became restless. Had to be put back on the same. Current drips include fentanyl, Nimbex, propofol. FiO2 55 and a PEEP of 16. Telemetry shows sinus rhythm. 2 feeding at 30 mL an hour. November 07: ICU: at the bedside. Ventilator: 55/16. Telemetry: Sinus rhythm. Drips include fentanyl, propofol, Nimbex. 2 feeding at 27 mL an hour. Review of systems: Intubated Active Medications Acetaminophen (Acetaminophen Tab 325 Mg Tab) 650 mg PO Q6HR PRN PRN Reason: Mild Pain or Fever > 100.5 Last Admin: 10/29/21 15:46 Dose: 650 mg Documented by: Albuterol Sulfate (Albuterol Hfa Inhaler) 2 puff INHALATION RT-QID PRN PRN Reason: Shortness Of Breath Last Admin: 11/07/21 19:57 Dose: 2 puff Documented by: Apixaban (Apixaban 5 Mg Tab) 5 mg PO BID [facility]; Protocol Last Admin: 11/07/21 08:54 Dose: 5 mg Documented by: Artificial Tears (Artificial Tears-Hypromellose Drops 15 Ml Btl) 2 drops BOTH EYES Q4HR [facility] Last Admin: 11/07/21 15:31 Dose: 2 drops Documented by: Ascorbic Acid (Ascorbic Acid 500 Mg Tab) 1,000 mg PO DAILY [facility] Last Admin: 11/07/21 08:55 Dose: 1,000 mg Documented by: Carbamazepine (Carbamazepine 200 Mg Tab) 400 mg PO BID [facility] Last Admin: 11/07/21 08:55 Dose: 400 mg Documented by: Chlorhexidine Gluconate (Chlorhexidine Gluconate 15 Ml Cup) 15 ml MUCOUS MEM BID [facility] Last Admin: 11/07/21 08:54 Dose: 15 ml Documented by: Cholecalciferol (Cholecalciferol 25 Mcg (1000 Iu) Tablet) 25 mcg PO DAILY [facility] Last Admin: 11/07/21 08:55 Dose: 25 mcg Documented by: Dexamethasone Sodium Phosphate (Dexamethasone Sod Phosphate 10 Mg/Ml 1 Ml Vial) 6 mg IVP DAILY [facility] Last Admin: 11/07/21 08:54 Dose: 6 mg Documented by: Docusate Sodium (Docusate Oral Soln 100 Mg/10 Ml Cup) 100 mg PO BID [facility] Last Admin: 11/07/21 08:55 Dose: 100 mg Documented by: Propofol 1,000 mg/ IV Solution 100 mls @ 0 mls/hr IV .Q0M [facility]; Protocol Last Admin: 11/07/21 19:59 Dose: 60 mcg/kg/min, 45 mls/hr Documented by: Piperacillin Sod/Tazobactam (Sod 3.375 gm/ Sodium Chloride) 100 mls @ 25 mls/hr IVPB Q8HR [facility] Last Admin: 11/07/21 15:31 Dose: 25 mls/hr Documented by: Cisatracurium Besylate 200 mg/ (Sodium Chloride) 200 mls @ 10.8 mls/hr IV .[id number] [facility]; Protocol Last Admin: 11/07/21 10:28 Dose: 2 mcg/kg/min, 14.4 mls/hr Documented by: Fentanyl Citrate 2,500 mcg/ (Sodium Chloride) 250 mls @ 4.082 mls/hr IV .Q24H [facility]; Protocol Last Titration: 11/07/21 14:09 Dose: 2 mcg/kg/hr, 16.329 mls/hr Documented by: Insulin Aspart (Insulin Aspart (Novolog) 100 Unit/Ml Vial) 0 unit SQ Q6HR [facility]; Protocol Last Admin: 11/07/21 17:40 Dose: 8 unit Documented by: Insulin Detemir (Insulin Detemir (Levemir) 100 Unit/Ml Syr) 20 unit SQ HS [facility] Last Admin: 11/06/21 21:06 Dose: 20 unit Documented by: Metoprolol Tartrate (Metoprolol Tartrate 50 Mg Tab) 50 mg PO BID [facility] Last Admin: 11/07/21 09:53 Dose: 50 mg Documented by: Miscellaneous Information (Potassium Replacement Protocol 1 Each Misc) 1 each MISCELLANE DAILY PRN; Protocol PRN Reason: Per Protocol Pregabalin (Pregabalin 100 Mg Cap) 200 mg PO BID [facility] Last Admin: 11/07/21 08:54 Dose: 200 mg Documented by: Sertraline HCl (Sertraline 50 Mg Tab) 50 mg PO DAILY [facility] Last Admin: 11/07/21 08:56 Dose: 50 mg Documented by: Zinc Sulfate (Zinc Sulfate 220 Mg Cap) 220 mg PO DAILY [facility] Last Admin: 11/07/21 08:54 Dose: 220 mg Documented by: Social history: Patient is on Social Security. Does not smoke or drink alcohol. Patient's daughters family lives with him. Family history: Father at the age of 40 with heart attack Physical examination: VITAL SIGNS: 98.2, 61, 30, 10 5 x 66, 97% on the ventilator GENERAL: Laying in bed, intubated LUNGS: Respiratory rate increased,. PSYCH: Unable to assess Rest of the exam per nursing and pulmonary INVESTIGATIONS, reviewed in the clinical context: November 07: White count 7.60 globin 10.1 platelets 269 potassium 3.4 creatinine 0.5 to AST 30 ALT 75 November 06: WBC 9.4 hemoglobin 9.8 platelets 250 potassium 3.6 creatinine 0.48 AST 36 ALT 91 October 6: WBC 11 hemoglobin 10.4 platelets 218 potassium 4 creatinine 0.5 to Blood culture positive for Staphylococcus epidermidis/coagulates negative. November 04: WBC 13.1 hemoglobin 11.6 potassium 4.6 creatinine 0.53. Chest x-ray film personally reviewed by me-bilateral infiltrates November 03: White count 11.9 hemoglobin 12 platelets 266 potassium 4.2 creatinine 0.55 AST 63 ALT 64 pro-calcitonin 0.12 November 02: White count 8 hemoglobin 10.5 potassium 4.4. 23 creatinine 0.5 to November 01: White count 11.1 hemoglobin 11.6 platelets 203 d-dimer 10.6 potassium 4.7 creatinine 0.73 October 31: White count 12.1 hemoglobin 12.2 platelets 240 potassium 4.8 creatinine 0.61 October 30: White count 12.9 hemoglobin 13.1 potassium 5.6 creatinine 0.69 October 29: White count 13.1 hemoglobin 13.8 d-dimer 16.2 potassium 4.7 creatinine 0.76 October 28: D-dimer 13.4 to October 26: D-dimer 8.48 CRP 24 Chest CTA [October 26: biLateral pulmonary embolism Doppler ultrasound lower extremity: Negative for DVT October 24: White count 9.7 hemoglobin 15.3 platelets 221 d-dimer 1.93 progression 4.2 creatinine 0.71 CRP 5.5 pro-calcitonin 0.08 White count 9.9 hemoglobin 16 platelets 234 d-dimer 0.98 sodium 141 potassium 3.4 creatinine 0.81 Lactic acid 2.9 LDH 1422 CRP 7.5 EKG tracing personally reviewed by me-normal sinus rhythm. Nonspecific ST segment changes. Chest x-ray film personally reviewed by me-bilateral infiltrates Assessment and plan: -Acute severe COVID 19 pneumonitis in a patient who did not take the COVID-19 vaccine: Slow to respond Dexamethasone, vitamin C, vitamin D, zinc. Patient's outside the window for Remdesivir. -Acute hypoxic respiratory failure from COVID-19: Slow to respond intubated October 30. FiO2 55 and a PEEP of 16 -Bilateral pulmonary embolism secondary to COVID-19 Eliquis -Essential hypertension Lopressor 50 mg twice a day, Cozaar 50 mg daily -Diabetes mellitus type 2, on oral hypoglycemic, uncontrolled with hyperglycemia Glucophage thousand milligrams twice a day. Follow Accu-Chek. Precose. Levemir 20 units daily at bedtime -Chronic insomnia for medical conditions Elavil 50 mg daily at bedtime -Hyperlipidemia TriCor 48 mg daily -Obstructive sleep apnea On CPAP at home -Diabetic peripheral neuropathy Lyrica 200 mg twice daily -Full code Drips include : fentanyl , propofol Nimbex. Ventilator. Tube feeding . Remains Critical.
[2021-11-07] MEDS: INSULIN DETEMIR (LEVEMIR) 100 UNIT/ML SYR SQ SCH (20:49)
[2021-11-07 23:32] LABS: Glucose,Whole Blood 154 mg/dL (75-99)
[2021-11-08] MEDS: CISATRACURIUM 200 MG in SODIUM CHLORIDE 0.9% 180 ML IV SCH ×2 (00:33→20:42)
[2021-11-08 03:55] LABS: Basophils % (A) 0 %; Eosinophils # (A) 0.2 k/uL (0-0.7); Eosinophils % (A) 3 %; HCT 30.3 % (39.0-53.0); Lymphocytes # (A) 1.4 k/uL (1.0-4.8); Lymphocytes % (A) 18 %; MCH 32.8 pg (25.0-35.0); MCV 99.3 fL (80.0-100.0); Macrocytosis Slight; Mean Platelet Volume 8.3; Monocytes # (A) 0.4 k/uL (0-1.0); Monocytes % (A) 6 %; Neutrophils # (A) 5.3 k/uL (1.3-7.7); Neutrophils % (A) 71 %; Platelet Count 264 k/uL (150-450); RBC 3.05 m/uL (4.30-5.90); WBC 7.5 k/uL (3.8-10.6)
[2021-11-08] MEDS: ARTIFICIAL TEARS-HYPROMELLOSE DROPS 15 ML BTL BOTH EYES SCH ×5 (04:08→20:04)
[2021-11-08 04:09] LABS: ALT 57 U/L (4-49); AST 26 U/L (17-59); African American GFR (CKD) >90 (>60 ml/min/1.73 sqM); Albumin 2.4 g/dL (3.5-5.0); Alkaline Phosphatase 91 U/L (38-126); Anion Gap 4 mmol/L; Blood Urea Nitrogen 20 mg/dL (9-20); Carbon Dioxide 30 mmol/L (22-30); Chloride 102 mmol/L (98-107); Glucose 131 mg/dL (74-99); Non-African American GFR(CKD) >90 (>60 ml/min/1.73 sqM); Potassium 3.5 mmol/L (3.5-5.1); Sodium 136 mmol/L (137-145); Total Bilirubin 0.6 mg/dL (0.2-1.3); Total Protein 5.3 g/dL (6.3-8.2)
[2021-11-08] MEDS: INSULIN ASPART (NovoLOG) 100 UNIT/ML VIAL SQ SCH ×4 (05:48→23:54)
[2021-11-08 05:49] LABS: Glucose,Whole Blood 114 mg/dL (75-99)
[2021-11-08 05:50] LABS: ABG Base Excess 10.7 mmol/L; ABG HCO3 34 mmol/L (21-25); ABG PCO2 42 mmHg (35-45); ABG PH 7.51 (7.35-7.45); ABG TCO2 35 mmol/L (19-24); Allen Test Performed? Yes
[2021-11-08 05:52] LABS: ABG PO2 59 mmHg (83-108)
[2021-11-08] MEDS: POTASSIUM BICARBONATE/CIT AC 20 MEQ TABLET.EFF NG-TUBE SCH ×2 (06:48→07:02)
--- NOTE | 2021-11-08 06:49 | XR ---
EXAMINATION TYPE: XR chest 1V portable DATE OF EXAM: 11/08/2021 CLINICAL HISTORY: Difficulty breathing and covid pneumonia progress study. TECHNIQUE: Single AP portable semiupright view of the chest is obtained. COMPARISON: Chest x-ray from one day earlier and older studies. FINDINGS: Stable endotracheal and orogastric tubes. Stable left-sided subclavian central venous cath eter. Right supraclavicular surgical clips redemonstrated. Persistent bilateral multifocal increased opacities. Cardiac silhouette size is stable and mildly enl arged. Osseous structures are intact. IMPRESSION: Bilateral multifocal increased opacities consistent with covid-19 infection and/or ARDS r edemonstrated. No significant change from one day earlier.
[2021-11-08] MEDS: ALBUTEROL HFA INHALER INHALATION PRN ×2 (07:46→11:47)
[2021-11-08] MEDS: PIPERACILLIN-TAZOBACTAM 3.375 GM in SODIUM CHLORIDE 0.9% 100 ML IVPB SCH ×2 (08:39→17:06)
[2021-11-08] MEDS: carBAMazepine 200 MG TAB PO SCH ×2 (08:43→20:03)
[2021-11-08] MEDS: DOCUSATE ORAL SOLN 100 MG/10 ML CUP PO SCH ×2 (08:43→20:03)
[2021-11-08] MEDS: CHLORHEXIDINE GLUCONATE 15 ML CUP MUCOUS MEM SCH ×2 (08:43→20:03)
[2021-11-08] MEDS: CHOLECALCIFEROL 25 MCG (1000 IU) TABLET PO SCH (08:44)
[2021-11-08] MEDS: APIXABAN 5 MG TAB PO SCH ×2 (08:44→20:03)
[2021-11-08] MEDS: ZINC SULFATE 220 MG CAP PO SCH (08:44)
[2021-11-08] MEDS: ASCORBIC ACID 500 MG TAB PO SCH (08:44)
[2021-11-08] MEDS: PREGABALIN 100 MG CAP PO SCH ×2 (08:44→20:03)
[2021-11-08] MEDS: DEXAMETHASONE SOD PHOSPHATE 10 MG/ML 1 ML VIAL IVP SCH (08:44)
[2021-11-08] MEDS: SERTRALINE 50 MG TAB PO SCH (08:44)
[2021-11-08] MEDS: FUROSEMIDE 10 MG/ML 10 ML VIAL IV SCH ×2 (08:48→20:04)
[2021-11-08] MEDS: fentaNYL (PF) 2,500 MCG in SODIUM CHLORIDE 0.9% 200 ML IV SCH ×2 (09:07→18:37)
--- NOTE | 2021-11-08 10:43 | P.PN ---
Subjective Progress Note Date: 11/08/21 Principal diagnosis: Acute COVID-19 pneumonia 61-year-old male patient with past medical history of diabetes mellitus type 2 with diabetic neuropathy, hypertension, hyperlipidemia, previous history of CVA, rheumatoid arthritis, obstructive sleep apnea S/P UPPP, history of right eye melanoma with previous surgeries, BPH with previous TURP, chronic lower extremity edema, cellulitis, gout, presented to the emergency department on 10/23/2021 at 240 3 in the morning with complaints of severe shortness of breath, cough, congestion. Patient states he has had symptoms since October 09, initially was tested via rapid COVID-19 PCR test which was negative however the send out PCR test came back positive. He states over the last 2 weeks his symptoms continue to worsen, he feels weak, short of breath, complains of cough and chest congestion. No chest pain. He has not been vaccinated against COVID- 19. He does endorse fever, malaise, nausea, abdominal pain. His chest x-ray showed moderate pulmonary testicular edema. His lab work has been reviewed showing white blood cell count of 9.9, hemoglobin 16, platelet count is 234, neutrophils 8.1, lymphocyte count is 1.49, INR is 1.1, sodium is 141, potassium is 3.4, chloride is 101, CO2 is 23, BUN is 23 creatinine 0.81, plasma lactic acid was 2.9 and is currently down to 1.7, LDH was 1422, proBNP was 185, LFTs were within normal limits. Patient is currently requiring 8 L of oxygen his pulse ox is 96%, he still has a congested cough, he has been afebrile, he is short of breath with any exertion. Denies any hemoptysis or chest discomfort. Has been started on Decadron 6 mg daily, he was given IV hydration with 1 L b olus, and currently receiving 0.9 normal saline at a rate of 1:30 ML per hour, his lactic acid has improved. Patient is outside the window for Remdesivir. On 11/08/2021 patient seen in follow-up in the intensive care unit, patient was transferred to the intensive care on 10/29/2022, and was intubated in next day on 10/30/2022. He currently remains intubated, sedated and paralyzed, he is currently on assist control mode of ventilation with a rate of 32, tidal arm is 450, FiO2 of 55% and PEEP of 16. This morning's blood gas has been reviewed showing pO2 of 59, pCO2 of 42, and pH of 7.5 one, this was done on the above- mentioned event stated settings. Patient is currently on 0.9 at 20 ML per hour, fentanyl infusion at 2 mics per kilo per minute, diprivan at 60 mics per kilo per minute, Nimbex at 2 mics per kilo per minute, he is tolerating his tube feedings, he is on vital high-protein at 23 with a goal of 23 and standard water flushes, for the past few days patient was given a paralytic holiday's however he does not tolerate them well, desaturates, and requires to be re-paralyzed, yesterday paralytic holiday was not attempted. His chest x-ray today shows bilateral multifocal increased opacities consistent with a COVID 19 infection and ARDS, no significant change from one day earlier. Hemodynamically patient has been stable, he remains in sinus mechanism, not requiring any vasopressor support, he remains on antibiotics in the form of Zosyn for positive blood cultures, his last set of blood cultures from 11/06/2021 showed 2 coagulase- negative staph organisms, blood culture from the same day showed no growth, his sputum culture showed few PMNs, moderate gram-positive cocci. Patient has been afebrile, hemodynamically he has been stable. Abdomen is soft, he is tolerating tube feedings. He is generally swollen. Overall says he transferred to the intensive care unit his weight is up by at least 7.4 kg. Patient has received intermittent doses of diuretics. He currently remains on Decadron 6 mg daily, she is on Eliquis 5 mg twice daily for evidence of PE that was diagnosed during this admission, yesterday he received a dose of IV Lasix 60 mg, however she still and +205 mL net fluid balance over the last 24 hours. He remains on multivitamins. His labs have been reviewed, his white blood cell count is 7.5, hemoglobin is 10.0, sodium is 136, potassium 3.5, chloride is 102, CO2 30, BUN is 20, creatinine 0.51, his last pro-calcitonin from 11/06/2021 was 0.31, which was actually increasing from the previous value of 0.12. And from the admission value of 0.08. Objective - Vital Signs Vital signs: Vital Signs Temp 98.7 F 11/08/21 08:00 Pulse 53 L 11/08/21 08:00 Resp 32 H 11/08/21 08:00 BP 111/63 11/08/21 08:00 Pulse Ox 94 L 11/08/21 08:00 Intake & Output 11/07/21 11/08/21 11/08/21 18:59 06:59 18:59 Intake Total 0454.492 8917.847 368.86 Output Total 1715 535 30 Balance -613.229 818.847 338.86 Weight 123.4 kg Intake: IV 179 143 13 0.9 NS KVO 140 110 10 Pressure bag 39 33 3 Intake, IV Titration 830.771 844.847 332.86 Amount Cisatracurium 200 mg In 155.76 200 Sodium Chloride 0.9% 180 ml @ 1.5 MCG/KG/MIN 10.8 mls/hr IV .[id number] [facility] Rx #:[id number] Piperacillin-Tazobactam 3 200 .375 gm In Sodium Chloride 0.9% 100 ml @ 25 mls/hr IVPB Q8HR [facility] Rx# :[id number] fentaNYL (PF) 2,500 mcg 0.204 157.847 151.86 In Sodium Chloride 0.9% 200 ml @ 0.5 MCG/KG/HR 4. 082 mls/hr IV .Q24H [facility] Rx#:[id number] fentaNYL (PF). 1,000 mcg 59.057 In Sodium Chloride 0.9% 80 ml @ 0.5 MCG/KG/HR 4. 082 mls/hr IV .Q24H [facility] Rx#:[id number] propofoL 1,000 mg In 415.75 487 181 Empty Bag 1 bag @ Titrate IV .Q0M [facility] Rx#: [id number] Tube Feeding 92 276 23 Other 90 Output: Urine 1715 535 30 Other: Voiding Method Indwelling Catheter Indwelling Catheter Indwelling Catheter ABP, PAP, CO, CI - Last Documented Arterial Blood Pressure 96/56 - Exam GENERAL EXAM: Intubated, sedated and paralyzed 61-year-old white male, on assist-control mode of ventilation with a rate of 32, tidal Lyme is 450, FiO2 of 55% and PEEP of 16 HEAD: Normocephalic/atraumatic. EYES: Normal reaction of pupils, equal size. Conjunctiva pink, sclera white. NOSE: Clear with pink turbinates. THROAT: No erythema or exudates. NECK: No masses, no JVD, no thyroid enlargement, no adenopathy. CHEST: No chest wall deformity. Symmetrical expansion. LUNGS: Equal air entry with diffuse crackles CVS: Regular rate and rhythm, normal S1 and S2, no gallops, no murmurs, no rubs ABDOMEN: Soft, nontender. No hepatosplenomegaly, normal bowel sounds, no guarding or rigidity. EXTREMITIES: No clubbing, mild generalized edema, and 1+ lower extremity edema no cyanosis, 2+ pulses and upper and lower extremities. MUSCULOSKELETAL: Muscle strength and tone normal. SPINE: No scoliosis or deformity SKIN: No rashes CENTRAL NERVOUS SYSTEM: Intubated, sedated and paralyzed No focal deficits, tone is normal in all 4 extremities. - Labs CBC & Chem 7: 11/08/21 03:15 11/08/21 03:15 Labs: Abnormal Lab Results - Last 24 Hours (Table) 11/07/21 11/07/21 11/07/21 Range/Units 11:37 17:33 23:30 RBC (4.30-5.90) m/uL Hgb (13.0-17.5) gm/dL Hct (39.0-53.0) % ABG pH (7.35-7.45) ABG pO2 (83-108) mmHg ABG HCO3 (21-25) mmol/L ABG Total CO2 (19-24) mmol/L ABG O2 Saturation (94-97) % Sodium (137-145) mmol/L Creatinine (0.66-1.25) mg/dL Glucose (74-99) mg/dL POC Glucose (mg/dL) 192 H 234 H 154 H (75-99) mg/dL Calcium (8.4-10.2) mg/dL ALT (4-49) U/L Total Protein (6.3-8.2) g/dL Albumin (3.5-5.0) g/dL 11/08/21 11/08/21 11/08/21 Range/Units 03:15 03:15 05:47 RBC 3.05 L (4.30-5.90) m/uL Hgb 10.0 L (13.0-17.5) gm/dL Hct 30.3 L (39.0-53.0) % ABG pH 7.51 H (7.35-7.45) ABG pO2 59 L* (83-108) mmHg ABG HCO3 34 H (21-25) mmol/L ABG Total CO2 35 H (19-24) mmol/L ABG O2 Saturation 91.0 L (94-97) % Sodium 136 L (137-145) mmol/L Creatinine 0.51 L (0.66-1.25) mg/dL Glucose 131 H (74-99) mg/dL POC Glucose (mg/dL) (75-99) mg/dL Calcium 8.0 L (8.4-10.2) mg/dL ALT 57 H (4-49) U/L Total Protein 5.3 L (6.3-8.2) g/dL Albumin 2.4 L (3.5-5.0) g/dL 11/08/21 Range/Units 05:47 RBC (4.30-5.90) m/uL Hgb (13.0-17.5) gm/dL Hct (39.0-53.0) % ABG pH (7.35-7.45) ABG pO2 (83-108) mmHg ABG HCO3 (21-25) mmol/L ABG Total CO2 (19-24) mmol/L ABG O2 Saturation (94-97) % Sodium (137-145) mmol/L Creatinine (0.66-1.25) mg/dL Glucose (74-99) mg/dL POC Glucose (mg/dL) 114 H (75-99) mg/dL Calcium (8.4-10.2) mg/dL ALT (4-49) U/L Total Protein (6.3-8.2) g/dL Albumin (3.5-5.0) g/dL Microbiology - Last 24 Hours (Table) 11/06/21 10:07 Blood Culture Gram Stain - Final Blood Blood Culture - Final Coagulase Negative Staph Coagulase Negative Staph#2 11/06/21 16:15 Gram Stain - Preliminary Sputum Sputum Culture - Preliminary 11/03/21 15:40 Blood Culture - Preliminary Blood No Growth after 96 hours Assessment and Plan Plan: Assessment: #1. Acute hypoxic respiratory failure related to acute COVID-19 related pneumonia, patient presented to the emergency department on 10/23/2021 with 2 week history of symptoms, patient is outside the window for Remdesivir, he is a non-vaccinated adult. Patient was started on Baricitinib in view of worsening hypoxic respiratory failure, on 10/29/2021 transferred to the intensive care unit, and intubated on 10/30/2021. Today on 11/08/2021 patient remains intubated, sedated and paralyzed on assist control mode of ventilation with a rate of 32, tidal arm was 450, FiO2 of 55% and PEEP of 16. Baricitinib has been discontinued in view of positive blood cultures patient is currently covered with Zosyn. Blood cultures have shown coagulase-negative staph, 2 organisms, possibly contamination, however his sputum from 10/30/2021 showed group B strep. Patient has failed paralytic holiday on more than one occasion, currently remains on Nimbex, we will attempt to wean it again after diuresing the patient #2. Acute pulmonary embolism within the lower lobe, right artery right greater than left, started on Eliquis on 10/26/2021 #3. Diabetes mellitus type 2 with diabetic neuropathy #4. Hypertension #5. Hyperlipidemia #6. BPH with previous history of TURP #7. Obstructive sleep apnea with previous history of UPPP #8. History of right eye melanoma with multiple surgeries #9. Previous history of CVA #10. Rheumatoid arthritis #11. History of gout #12. Previous history of MRSA infection in the wound on his back #13. Mild lactic acidosis, improved with IV hydration #14. Elevated inflammatory markers related to acute COVID-19 pneumonia Plan: Today's chest x-ray, blood gases and labs have been reviewed We'll place the patient on maintenance dose Lasix 60 mg twice daily Continue with current dose Decadron Continue with assist control mode of ventilation, decrease the respiratory rate down to 28 Continue same PEEP and FiO2 We will attempt on the paralytic holiday later on today after the diuretics have been initiated Continue multivitamins and Eliquis We'll send a follow-up pro-calcitonin Follow-up labs tomorrow including CBC, CMP, inflammatory markers, daily blood gases and chest x-ray Continue tube feedings for nutritional support I performed a history & physical examination of the patient and discussed their management with my nurse practitioner, Linda Giordano. I reviewed the nurse practitioner's note and agree with the documented findings and plan of care. Lung sounds are positive for dim with diffuse wheezes throughout the lung malone. The findings and the impression was discussed with the patient. I attest to the documentation by the nurse practitioner. Time with Patient: Greater than 30
[2021-11-08 11:22] LABS: Glucose,Whole Blood 173 mg/dL (75-99)
[2021-11-08] MEDS ORDERED: VANCOMYCIN IV PER PHARMACY 1 EACH MISC MISCELLANE PRN (11:46)
[2021-11-08] MEDS: METOPROLOL TARTRATE 50 MG TAB PO SCH (11:53)
[2021-11-08] MEDS ORDERED: VANCOMYCIN 2,250 MG in SODIUM CHLORIDE 0.9% 500 ML 500 ML IVPB ONE (12:00)
--- NOTE | 2021-11-08 15:52 | P.PN ---
Progress Note - Text Progress Note Date: 11/08/21 Chief Complaint: Short of breath This is a pleasant 61-year-old patient, chronic stable medical conditions include diabetes, hypertension, hyperlipidemia, osteoarthritis, peripheral neuropathy, chronic gout. Patient presents with increasing shortness of breath. Cough. Clear sputum. Fever and chills. Tired rundown decrease appetite and diarrhea about 2 times a day. Patient tested positive for COVID-19 on October 09. His initial rapid COVID-19 was negative. In the send out came back positive. Patient did not take the vaccine against COVID-19. He is on 8 L of oxygen this morning. He is outside the window for Remdesivir. Admitted with COVID 19 pneumonitis, acute hypoxic respiratory failure. Started on Decadron. IV fluids. October 24: Feeling a bit better. Short of breath. 92% on 11 L. Did eat some. Sitting at the edge of the bed. A bit tired October 25: Short of breath. Cough. Oral intake fair. On 11 L of nasal cannula. Did sit up in a chair. October 26: Short of breath. Oral intake fair. Cough. 11 L nasal cannula. Dexamethasone. Chest CTA showing bilateral pulmonary embolism. October 27: Short of breath. Eating fair. 15 L nasal cannula. Tired. October 28: Remains on 15 L of nasal cannula. Eating about 50%. Short of breath. Tired. Trying to change his positions in bed. Including prone. October 29: Patient more short of breath and tired. Pulse oxing 87% on 15 L. Laying in bed. Eating around 50%. Late in the afternoon seen by pulmonary and patient be moved to ICU. October 30: Patient moved to ICU yesterday. Because of more respiratory compromise. Intubated earlier today. Drips include Diprivan, fentanyl, Nimbex, Levophed. Sinus rhythm. FiO2 19 a PEEP of 18. October 31: ICU: Ventilator/FiO2 19 a PEEP of 18. Drips include MX, propofol, fentanyl. Epinephrine. November 01: ICU: On the ventilator FiO2 55 PEEP of 16. Drips included propofol, Nimbex, fentanyl. 2 feeding at 29 mL an hour. November 02: ICU. Ventilator 45/16. Drips include fentanyl, propofol, Nimbex. 2 feeding at 20 mL an hour. November 03: ICU. Ventilator 45/12. Drips include fentanyl, propofol. 2 feeding at 29 mL an hour. November 04: ICU. Overnight patient went into respiratory distress. X-ray was looking worse. Patient put back on 100% FiO2 and a PEEP of 16. Patient is put back on drips of currently include fentanyl, propofol, Nimbex. 2 feeding. Sedated November 05: ICU: Current drips include fentanyl, propofol, Nimbex. Ventilator: 75/16. 2 feeding at 30 mL an hour. Sinus rhythm. Blood cultures coming back coagulase-negative/staph epidermidis likely contaminant November 06: ICU: Earlier today attempt was made to cut back on the Nimbex. Patient became restless. Had to be put back on the same. Current drips include fentanyl, Nimbex, propofol. FiO2 55 and a PEEP of 16. Telemetry shows sinus rhythm. 2 feeding at 30 mL an hour. November 07: ICU: at the bedside. Ventilator: 55/16. Telemetry: Sinus rhythm. Drips include fentanyl, propofol, Nimbex. 2 feeding at 27 mL an hour. November 08: ICU: Ventilator: 55/16. Drips included propofol, fentanyl, Nimbex. [address] Sinus rhythm. Review of systems: Intubated Active Medications Acetaminophen (Acetaminophen Tab 325 Mg Tab) 650 mg PO Q6HR PRN PRN Reason: Mild Pain or Fever > 100.5 Last Admin: 10/29/21 15:46 Dose: 650 mg Documented by: Albuterol Sulfate (Albuterol Hfa Inhaler) 2 puff INHALATION RT-QID PRN PRN Reason: Shortness Of Breath Last Admin: 11/08/21 11:47 Dose: 2 puff Documented by: Apixaban (Apixaban 5 Mg Tab) 5 mg PO BID [facility]; Protocol Last Admin: 11/08/21 08:44 Dose: 5 mg Documented by: Artificial Tears (Artificial Tears-Hypromellose Drops 15 Ml Btl) 2 drops BOTH EYES Q4HR [facility] Last Admin: 11/08/21 11:53 Dose: 2 drops Documented by: Ascorbic Acid (Ascorbic Acid 500 Mg Tab) 1,000 mg PO DAILY [facility] Last Admin: 11/08/21 08:44 Dose: 1,000 mg Documented by: Carbamazepine (Carbamazepine 200 Mg Tab) 400 mg PO BID [facility] Last Admin: 11/08/21 08:43 Dose: 400 mg Documented by: Chlorhexidine Gluconate (Chlorhexidine Gluconate 15 Ml Cup) 15 ml MUCOUS MEM BID [facility] Last Admin: 11/08/21 08:43 Dose: 15 ml Documented by: Cholecalciferol (Cholecalciferol 25 Mcg (1000 Iu) Tablet) 25 mcg PO DAILY [facility] Last Admin: 11/08/21 08:44 Dose: 25 mcg Documented by: Dexamethasone Sodium Phosphate (Dexamethasone Sod Phosphate 10 Mg/Ml 1 Ml Vial) 6 mg IVP DAILY [facility] Last Admin: 11/08/21 08:44 Dose: 6 mg Documented by: Docusate Sodium (Docusate Oral Soln 100 Mg/10 Ml Cup) 100 mg PO BID [facility] Last Admin: 11/08/21 08:43 Dose: 100 mg Documented by: Furosemide (Furosemide 10 Mg/Ml 10 Ml Vial) 60 mg IV Q12HR [facility] Last Admin: 11/08/21 08:48 Dose: 60 mg Documented by: Propofol 1,000 mg/ IV Solution 100 mls @ 0 mls/hr IV .Q0M [facility]; Protocol Last Admin: 11/08/21 12:32 Dose: 60 mcg/kg/min, 45 mls/hr Documented by: Piperacillin Sod/Tazobactam (Sod 3.375 gm/ Sodium Chloride) 100 mls @ 25 mls/hr IVPB Q8HR [facility] Last Admin: 11/08/21 08:39 Dose: 25 mls/hr Documented by: Cisatracurium Besylate 200 mg/ (Sodium Chloride) 200 mls @ 10.8 mls/hr IV .[id number] [facility]; Protocol Last Admin: 11/08/21 00:33 Dose: 2 mcg/kg/min, 14.4 mls/hr Documented by: Fentanyl Citrate 2,500 mcg/ (Sodium Chloride) 250 mls @ 4.082 mls/hr IV .Q24H [facility]; Protocol Last Admin: 11/08/21 09:07 Dose: 2 mcg/kg/hr, 16.329 mls/hr Documented by: Vancomycin HCl 2,250 mg/ (Sodium Chloride) 500 mls @ 167 mls/hr IVPB Q12H [facility] Insulin Aspart (Insulin Aspart (Novolog) 100 Unit/Ml Vial) 0 unit SQ Q6HR [facility]; Protocol Last Admin: 11/08/21 11:54 Dose: 4 unit Documented by: Insulin Detemir (Insulin Detemir (Levemir) 100 Unit/Ml Syr) 20 unit SQ HS [facility] Last Admin: 11/07/21 20:49 Dose: 20 unit Documented by: Metoprolol Tartrate (Metoprolol Tartrate 50 Mg Tab) 50 mg PO BID [facility] Last Admin: 11/08/21 11:53 Dose: 50 mg Documented by: Miscellaneous Information (Potassium Replacement Protocol 1 Each Misc) 1 each MISCELLANE DAILY PRN; Protocol PRN Reason: Per Protocol Pregabalin (Pregabalin 100 Mg Cap) 200 mg PO BID [facility] Last Admin: 11/08/21 08:44 Dose: 200 mg Documented by: Sertraline HCl (Sertraline 50 Mg Tab) 50 mg PO DAILY [facility] Last Admin: 11/08/21 08:44 Dose: 50 mg Documented by: Zinc Sulfate (Zinc Sulfate 220 Mg Cap) 220 mg PO DAILY [facility] Last Admin: 11/08/21 08:44 Dose: 220 mg Documented by: Social history: Patient is on Social Security. Does not smoke or drink alcohol. Patient's daughters family lives with him. Family history: Father at the age of 40 with heart attack Physical examination: VITAL SIGNS: 98.7, 53, 32, 111/63, 96/56, 94% on the ventilator GENERAL: Laying in bed, intubated LUNGS: Respiratory rate increased,. PSYCH: Unable to assess Rest of the exam per nursing and pulmonary INVESTIGATIONS, reviewed in the clinical context: November 08: White count 7.5 hemoglobin 10 point potassium 3.5 creatinine 0.516.Chest x-ray film personally reviewed by me-scattered infiltrates November 07: White count 7.60 globin 10.1 platelets 269 potassium 3.4 creatinine 0.5 to AST 30 ALT 75 November 06: WBC 9.4 hemoglobin 9.8 platelets 250 potassium 3.6 creatinine 0.48 AST 36 ALT 91 November 05: WBC 11 hemoglobin 10.4 platelets 218 potassium 4 creatinine 0.5 to Blood culture positive for Staphylococcus epidermidis/coagulates negative. November 04: WBC 13.1 hemoglobin 11.6 potassium 4.6 creatinine 0.53. Chest x-ray film personally reviewed by me-bilateral infiltrates November 03: White count 11.9 hemoglobin 12 platelets 266 potassium 4.2 creatinine 0.55 AST 63 ALT 64 pro-calcitonin 0.12 November 02: White count 8 hemoglobin 10.5 potassium 4.4. 23 creatinine 0.5 to November 01: White count 11.1 hemoglobin 11.6 platelets 203 d-dimer 10.6 potassium 4.7 creatinine 0.73 October 31: White count 12.1 hemoglobin 12.2 platelets 240 potassium 4.8 creatin ine 0.61 October 30: White count 12.9 hemoglobin 13.1 potassium 5.6 creatinine 0.69 October 29: White count 13.1 hemoglobin 13.8 d-dimer 16.2 potassium 4.7 creatinine 0.76 October 28: D-dimer 13.4 to October 26: D-dimer 8.48 CRP 24 Chest CTA [October 26: biLateral pulmonary embolism Doppler ultrasound lower extremity: Negative for DVT October 24: White count 9.7 hemoglobin 15.3 platelets 221 d-dimer 1.93 progression 4.2 creatinine 0.71 CRP 5.5 pro-calcitonin 0.08 White count 9.9 hemoglobin 16 platelets 234 d-dimer 0.98 sodium 141 potassium 3.4 creatinine 0.81 Lactic acid 2.9 LDH 1422 CRP 7.5 EKG tracing personally reviewed by me-normal sinus rhythm. Nonspecific ST segment changes. Chest x-ray film personally reviewed by me-bilateral infiltrates Assessment and plan: -Acute severe COVID 19 pneumonitis in a patient who did not take the COVID-19 vaccine: Slow to respond Dexamethasone, vitamin C, vitamin D, zinc. Patient's outside the window for Remdesivir. -Acute hypoxic respiratory failure from COVID-19: Slow to respond intubated October 30. FiO2 55 and a PEEP of 16 -Bilateral pulmonary embolism secondary to COVID-19 Eliquis -Essential hypertension Lopressor 50 mg twice a day, Cozaar 50 mg daily -Diabetes mellitus type 2, on oral hypoglycemic, uncontrolled with hyperglycemia Glucophage thousand milligrams twice a day. Follow Accu-Chek. Precose. Levemir 20 units daily at bedtime -Chronic insomnia for medical conditions Elavil 50 mg daily at bedtime -Hyperlipidemia TriCor 48 mg daily -Obstructive sleep apnea On CPAP at home -Diabetic peripheral neuropathy Lyrica 200 mg twice daily -Full code Drips : fentanyl , propofol Nimbex. Ventilator. Tube feeding . Critical.
[2021-11-08 18:09] LABS: Glucose,Whole Blood 142 mg/dL (75-99)
[2021-11-08] MEDS ORDERED: POTASSIUM BICARBONATE/CIT AC 20 MEQ TABLET.EFF NG-TUBE SCH (19:00)
[2021-11-08] MEDS: VANCOMYCIN 2,250 MG in SODIUM CHLORIDE 0.9% 500 ML 500 ML IVPB SCH (20:04)
[2021-11-08] MEDS: INSULIN DETEMIR (LEVEMIR) 100 UNIT/ML SYR SQ SCH (21:22)
[2021-11-08 23:55] LABS: Glucose,Whole Blood 142 mg/dL (75-99)
[2021-11-09] MEDS: METOPROLOL TARTRATE 50 MG TAB PO SCH ×4 (01:58→22:50)
[2021-11-09] MEDS: ARTIFICIAL TEARS-HYPROMELLOSE DROPS 15 ML BTL BOTH EYES SCH ×7 (02:17→23:33)
[2021-11-09] MEDS: PIPERACILLIN-TAZOBACTAM 3.375 GM in SODIUM CHLORIDE 0.9% 100 ML IVPB SCH ×3 (02:18→16:26)
[2021-11-09] MEDS: CISATRACURIUM 200 MG in SODIUM CHLORIDE 0.9% 180 ML IV SCH ×2 (04:25→19:48)
[2021-11-09] MEDS: fentaNYL (PF) 2,500 MCG in SODIUM CHLORIDE 0.9% 200 ML IV SCH ×3 (04:25→22:47)
[2021-11-09 05:10] LABS: Basophils # (A) 0.1 k/uL (0-0.2); Basophils % (A) 1 %; Eosinophils # (A) 0.3 k/uL (0-0.7); Eosinophils % (A) 3 %; HCT 32.4 % (39.0-53.0); HGB 10.6 gm/dL (13.0-17.5); Lymphocytes # (A) 1.5 k/uL (1.0-4.8); Lymphocytes % (A) 20 %; MCH 31.9 pg (25.0-35.0); MCHC 32.8 g/dL (31.0-37.0); MCV 97.3 fL (80.0-100.0); Mean Platelet Volume 8.4; Monocytes # (A) 0.6 k/uL (0-1.0); Monocytes % (A) 8 %; Neutrophils # (A) 5.1 k/uL (1.3-7.7); Neutrophils % (A) 66 %; Platelet Count 275 k/uL (150-450); RBC 3.33 m/uL (4.30-5.90); RDW 14.6 % (11.5-15.5); WBC 7.6 k/uL (3.8-10.6)
[2021-11-09 05:30] LABS: ALT 63 U/L (4-49); AST 37 U/L (17-59); African American GFR (CKD) >90 (>60 ml/min/1.73 sqM); Albumin 2.6 g/dL (3.5-5.0); Alkaline Phosphatase 98 U/L (38-126); Anion Gap 2 mmol/L; Blood Urea Nitrogen 20 mg/dL (9-20); C Reactive Protein 7.8 mg/dL (<1.0); Calcium 7.9 mg/dL (8.4-10.2); Carbon Dioxide 35 mmol/L (22-30); Chloride 101 mmol/L (98-107); Glucose 110 mg/dL (74-99); LDH 598 U/L (313-618); Non-African American GFR(CKD) >90 (>60 ml/min/1.73 sqM); Potassium 3.4 mmol/L (3.5-5.1); Sodium 138 mmol/L (137-145); Total Bilirubin 0.7 mg/dL (0.2-1.3); Total Protein 5.6 g/dL (6.3-8.2)
[2021-11-09 06:10] LABS: ABG Base Excess 12.3 mmol/L; ABG HCO3 35 mmol/L (21-25); ABG Oxygen Saturation 95.8 % (94-97); ABG PCO2 44 mmHg (35-45); ABG PH 7.52 (7.35-7.45); ABG PO2 75 mmHg (83-108); ABG TCO2 37 mmol/L (19-24); Allen Test Performed? Yes
[2021-11-09] MEDS: INSULIN ASPART (NovoLOG) 100 UNIT/ML VIAL SQ SCH ×4 (06:29→23:36)
[2021-11-09] MEDS: POTASSIUM CHLORIDE 20 MEQ in WATER FOR INJECTION 1 100ML.BAG IVPB SCH ×2 (06:29→09:10)
[2021-11-09] MEDS: ALBUTEROL HFA INHALER INHALATION PRN ×3 (07:38→15:55)
[2021-11-09] MEDS: APIXABAN 5 MG TAB PO SCH (08:08)
--- NOTE | 2021-11-09 08:12 | P.PN ---
Subjective Progress Note Date: 11/09/21 61-year-old male patient with past medical history of diabetes mellitus type 2 with diabetic neuropathy, hypertension, hyperlipidemia, previous history of CVA, rheumatoid arthritis, obstructive sleep apnea S/P UPPP, history of right eye melanoma with previous surgeries, BPH with previous TURP, chronic lower extremity edema, cellulitis, gout, presented to the emergency department on 10/23/2021 at 240 3 in the morning with complaints of severe shortness of breath, cough, congestion. Patient states he has had symptoms since October 09, initially was tested via rapid COVID-19 PCR test which was negative however the send out PCR test came back positive. Patient was transferred to the intensive care on 10/29/2022, and was intubated in next day on 10/30/2022. On today's evaluation of 11/09/2021, the patient is being seen for a follow-up. He currently remains intubated, sedated and paralyzed, he is currently on assist control mode of ventilation with a rate of 32, tidal arm is 450, FiO2 of 55% and PEEP of 16. This morning's blood gas has been reviewed showing pO2 of 75, pCO2 of 44, and pH of 7.52. The patient's serum bicarb is currently at 35. The patient has developed some metabolic alkalosis as the patient is being diuresis with IV Lasix. The chest x-ray from today is showing adequate positioning of the orotracheal tube. The patient continues to have diffuse bilateral pulmonary infiltrates. There is loss in the left hemidiaphragm which is obviously silhouetted probably related to a left lower lobe pulmonary infiltration. Right lung infiltration seems to have improved compared to yesterday. Patient is currently on 0.9 at 20 ML per hour, fentanyl infusion at 2 mics per kilo per hr , diprivan at 60 mics per kilo per minute, Nimbex at 2 mics per kilo per minute He is tolerating his tube feedings, he is on vital high-protein at 23 with a goal of 23 and standard water flushes. Hemodynamically patient has been stable, he remains in sinus mechanism, not requiring any vasopressor support, he remains on antibiotics in the form of Zosyn for positive blood cultures, his last set of blood cultures from 11/06/2021 showed 2 coagulase-negative staph organisms, blood culture from the same day showed no growth, his sputum culture showed few PMNs, moderate gram-positive cocci, presumed staph. The Procal was 0.19, highest 0.31. Patient has been afebrile, hemodynamically he has been stable. Patient has received intermittent doses of diuretics. He currently remains on Decadron 6 mg daily, she is on Eliquis 5 mg twice daily for evidence of PE that was diagnosed during this admission. Objective - Vital Signs Vital signs: Vital Signs Temp 98.2 F 11/09/21 04:00 Pulse 55 L 11/09/21 07:00 Resp 28 H 11/09/21 07:00 BP 105/65 11/09/21 07:00 Pulse Ox 96 11/09/21 07:00 Intake & Output 11/08/21 11/09/21 11/09/21 18:59 06:59 18:59 Intake Total 0217.187 1889.644 23 Output Total 1220 1560 35 Balance 451.986 -264.356 -12 Weight 125.7 kg Intake: IV 289 253 23 0.9 NS KVO 250 220 20 Pressure bag 39 33 3 Intake, IV Titration 1290.986 844.644 Amount Cisatracurium 200 mg In 311.12 Sodium Chloride 0.9% 180 ml @ 1.5 MCG/KG/MIN 10.8 mls/hr IV .[id number] [facility] Rx #:[id number] Piperacillin-Tazobactam 3 100 .375 gm In Sodium Chloride 0.9% 100 ml @ 25 mls/hr IVPB Q8HR [facility] Rx# :[id number] Vancomycin 2,250 mg In 500 Sodium Chloride 0.9% 500 ml 500 ml @ 167 mls/hr IVPB Q12H [facility] Rx#: [id number] fentaNYL (PF) 2,500 mcg 306.986 160.024 In Sodium Chloride 0.9% 200 ml @ 0.5 MCG/KG/HR 4. 082 mls/hr IV .Q24H [facility] Rx#:[id number] propofoL 1,000 mg In 384 373.5 Empty Bag 1 bag @ Titrate IV .Q0M [facility] Rx#: [id number] Tube Feeding 92 138 Other 60 Output: Urine 1220 1560 35 Other: Voiding Method Indwelling Catheter Indwelling Catheter ABP, PAP, CO, CI - Last Documented Arterial Blood Pressure 110/51 - Exam GENERAL EXAM: Alert, restless 61-year-old male patient, the patient remains intubated on a mechanical ventilator and the patient is sedated and paralyzed for now. HEAD: Normocephalic. EYES: Normal reaction of pupils, equal size. NOSE: Clear with pink turbinates. THROAT: No erythema or exudates. NECK: No masses, no JVD. CHEST: No chest wall deformity. LUNGS: Equal air entry with coarse crackles in the posterior bases. CVS: S1 and S2 normal with no audible murmur, regular rhythm. ABDOMEN: No hepatosplenomegaly, normal bowel sounds, no guarding or rigidity. SPINE: No scoliosis or deformity SKIN: No rashes CENTRAL NERVOUS SYSTEM: No focal deficits, tone is normal in all 4 extremities. EXTREMITIES: There is no peripheral edema. No clubbing, no cyanosis. Peripheral pulses are intact. - Labs CBC & Chem 7: 11/09/21 04:25 11/09/21 04:25 Labs: Abnormal Lab Results - Last 24 Hours (Table) 11/08/21 11/08/21 11/08/21 Range/Units 03:15 11:21 18:06 RBC (4.30-5.90) m/uL Hgb (13.0-17.5) gm/dL Hct (39.0-53.0) % D-Dimer (<0.60) mg/L FEU ABG pH (7.35-7.45) ABG pO2 (83-108) mmHg ABG HCO3 (21-25) mmol/L ABG Total CO2 (19-24) mmol/L Potassium (3.5-5.1) mmol/L Carbon Dioxide (22-30) mmol/L Creatinine (0.66-1.25) mg/dL Glucose (74-99) mg/dL POC Glucose (mg/dL) 173 H 142 H (75-99) mg/dL Calcium (8.4-10.2) mg/dL ALT (4-49) U/L C-Reactive Protein (<1.0) mg/dL Total Protein (6.3-8.2) g/dL Albumin (3.5-5.0) g/dL Procalcitonin 0.19 H (0.02-0.09) ng/mL 11/08/21 11/09/21 11/09/21 Range/Units 23:52 04:25 04:25 RBC 3.33 L (4.30-5.90) m/uL Hgb 10.6 L (13.0-17.5) gm/dL Hct 32.4 L (39.0-53.0) % D-Dimer (<0.60) mg/L FEU ABG pH (7.35-7.45) ABG pO2 (83-108) mmHg ABG HCO3 (21-25) mmol/L ABG Total CO2 (19-24) mmol/L Potassium 3.4 L (3.5-5.1) mmol/L Carbon Dioxide 35 H (22-30) mmol/L Creatinine 0.55 L (0.66-1.25) mg/dL Glucose 110 H (74-99) mg/dL POC Glucose (mg/dL) 142 H (75-99) mg/dL Calcium 7.9 L (8.4-10.2) mg/dL ALT 63 H (4-49) U/L C-Reactive Protein 7.8 H (<1.0) mg/dL Total Protein 5.6 L (6.3-8.2) g/dL Albumin 2.6 L (3.5-5.0) g/dL Procalcitonin (0.02-0.09) ng/mL 11/09/21 11/09/21 Range/Units 05:00 06:10 RBC (4.30-5.90) m/uL Hgb (13.0-17.5) gm/dL Hct (39.0-53.0) % D-Dimer 7.03 H (<0.60) mg/L FEU ABG pH 7.52 H (7.35-7.45) ABG pO2 75 L (83-108) mmHg ABG HCO3 35 H (21-25) mmol/L ABG Total CO2 37 H (19-24) mmol/L Potassium (3.5-5.1) mmol/L Carbon Dioxide (22-30) mmol/L Creatinine (0.66-1.25) mg/dL Glucose (74-99) mg/dL POC Glucose (mg/dL) (75-99) mg/dL Calcium (8.4-10.2) mg/dL ALT (4-49) U/L C-Reactive Protein (<1.0) mg/dL Total Protein (6.3-8.2) g/dL Albumin (3.5-5.0) g/dL Procalcitonin (0.02-0.09) ng/mL Microbiology - Last 24 Hours (Table) 11/03/21 15:40 Blood Culture - Preliminary Blood No Growth after 120 hours 11/06/21 16:15 Gram Stain - Preliminary Sputum Sputum Culture - Preliminary Presumptive Staph aureus 11/06/21 10:07 Blood Culture Gram Stain - Final Blood Blood Culture - Final Coagulase Negative Staph Coagulase Negative Staph#2 Assessment and Plan Plan: 1 Acute hypoxic respiratory failure related to acute COVID-19 related pneumonia, patient presented to the emergency department on 10/23/2021 with 2 week history of symptoms, patient is outside the window for Remdesivir, he is a non-vaccinated adult. The patient was transferred to the intensive care unit , the patient was started on BiPAP and ultimately failed BiPAP and the patient was intubated and placed on a mechanical ventilator. Currently is on a pressure control mode of mechanical ventilation. He has adequate oxygenation and ventilation for now. He is sedated and paralyzed. He continues to be on a combination of Decadron and Baricitinib. The Baricitinib was subsequently discontinued and the patient was considered to underlying infection. Pro- calcitonin level was elevated. Blood culture came back positive for coagulase- negative staph. Sputum cultures showing presumed staph aureus. The patient is currently on antibiotics and he is receiving a combination of Zosyn and vancomycin. The patient is also on anticoagulation with Eliquis regarding bilateral pulmonary emboli. Intubation was done on 10/30/2021 without any major difficulties. The plan is to proceed with a tracheostomy tube insertion and a PEG tube insertion and general surgery will be consulted 2 Bilateral pulmonary emboli on computed tomography scan 10/26/2021. Continued on Eliquis. 3 Diabetes mellitus type 2 with diabetic neuropathy currently on Levemir insulin for blood sugar control 4 Hypertension 5 Hyperlipidemia 6 Obstructive sleep apnea with previous history of UPPP 7 History of right eye melanoma with multiple surgeries 8 Previous history of CVA 9 Rheumatoid arthritis 10 History of gout 11 Previous history of MRSA infection in the wound on his back 12 Mild lactic acidosis, improved with IV hydration 13 Elevated inflammatory markers related to acute COVID-19 pneumonia 14 BPH with previous history of TURP 15 pneumomediastinum and subcutaneous emphysema, complications of COVID 19 related pneumonia, stable Plan: Continue ventilator support with pressure control mode of mechanical ventilation. Consult general surgery for a PEG and tracheostomy tube today. Drop TV to 400 and Fio2 to 50 Keep Zosyn and vanco Continue Decadron anticoagulation with Eliquis Keep the patient sedated and paralyzed for now Chest x-ray was reviewed , stable findings Enteral feeding for nutritional support Family was updated on the condition Condition is critical . Critically care evaluation that was on a more than 30 minutes. Time with Patient: Greater than 30
--- NOTE | 2021-11-09 08:39 | XR ---
EXAMINATION TYPE: XR chest 1V portable DATE OF EXAM: 11/09/2021 COMPARISON: Chest x-ray 11/08/2021 HISTORY: Shortness of breath, intubated TECHNIQUE: Single frontal view of the chest is obtained. FINDINGS: Endotracheal tube, NG tube, left subclavian central venous catheter are overlying appropri ate positions. No evident pneumothorax or pleural effusion. Bilateral airspace disease persists. Card iac mediastinal silhouette is stable. There are overlying artifacts. Surgical clips again noted in th e right neck. Right hemidiaphragm is elevated. IMPRESSION: Findings are stable compared to prior exam, correlate for pneumonia, ARDS
[2021-11-09] MEDS ORDERED: SODIUM CHLORIDE 0.9% 1,000 ML IV ONE (08:43)
[2021-11-09] MEDS: carBAMazepine 200 MG TAB PO SCH ×2 (10:08→20:56)
[2021-11-09] MEDS: PREGABALIN 100 MG CAP PO SCH ×2 (10:08→20:56)
[2021-11-09] MEDS: ASCORBIC ACID 500 MG TAB PO SCH (10:08)
[2021-11-09] MEDS: SERTRALINE 50 MG TAB PO SCH (10:08)
[2021-11-09] MEDS: ZINC SULFATE 220 MG CAP PO SCH (10:09)
[2021-11-09] MEDS: CHOLECALCIFEROL 25 MCG (1000 IU) TABLET PO SCH (10:09)
[2021-11-09] MEDS: CHLORHEXIDINE GLUCONATE 15 ML CUP MUCOUS MEM SCH ×2 (10:09→20:56)
[2021-11-09] MEDS: DOCUSATE ORAL SOLN 100 MG/10 ML CUP PO SCH ×2 (10:10→20:56)
[2021-11-09] MEDS: DEXAMETHASONE SOD PHOSPHATE 10 MG/ML 1 ML VIAL IVP SCH (10:11)
[2021-11-09 11:58] LABS: Glucose,Whole Blood 95 mg/dL (75-99)
[2021-11-09] MEDS: VANCOMYCIN 2,250 MG in SODIUM CHLORIDE 0.9% 500 ML 500 ML IVPB SCH ×2 (12:24→21:32)
--- NOTE | 2021-11-09 14:43 | P.GSCN ---
History of Present Illness Consult date: 11/09/21 History of present illness: CHIEF COMPLAINT: COVID-19 pneumonia HISTORY OF PRESENT ILLNESS: This is a 61-year-old male who presents to hospital with cough and congestion and evidence of COVID-19 pneumonia. He tested positive on 10/09/2021. Patient required to be intubated on 10/30/2021. Patient currently in the ICU on mechanical ventilation. FiO2 50% and PEEP of 18. Patient was diagnosed with bilateral pulmonary emboli during this admission and has been on Eliquis. Last dose of Eliquis was last night. Patient is currently out of isolation. He has been unable to be weaned off the vent. Surgical service has been consult at for tracheostomy and PEG tube placement. PAST MEDICAL HISTORY: Prostate Cancer, TIA, Diabetes Mellitus, Hyperlipidemia, Hypertension, Prostate Disorder, Rheumatoid Arthritis (RA), Sleep Apnea/CPAP/BIPAP PAST SURGICAL HISTORY: See list. MEDICATIONS: See list. ALLERGIES: See list. SOCIAL HISTORY: No illicit drug use. REVIEW OF SYSTEMS: Unable to obtain. Patient intubated and sedated PHYSICAL EXAM: VITAL SIGNS: Reviewed GENERAL: Well-developed in no acute distress. HEENT: Moist buccal mucosa. Head is atraumatic, normocephalic. No nasal drainage. ABDOMEN: Soft. Obese. Nondistended. Nontender NEUROLOGIC: Intubated and sedated LABORATORY DATA: WBC 7.6 hemoglobin is 10.6 platelets 275 D-dimer 7.03 Sodium 138 potassium 3.4 BUN 20 creatinine 0.55 Albumin 2.6 IMAGING: Chest x-ray findings are stable compared to prior exam correlate for pneumonia, ARDS ASSESSMENT: 1. Acute hypoxic respiratory failure secondary to COVID-19 pneumonia requiring mechanical ventilation 2. Severe protein calorie malnutrition 3. Bilateral pulmonary emboli PLAN: -Patient scheduled for tracheostomy and PEG tube placement tomorrow, 11/10/[address] daniel -Continue to hold Eliquis -Hold tube feedings after midnight -Continue ICU management and supportive care Thank you for this consultation Physician Electric Fan Assembler note has been reviewed by physician. Signing provider agrees with the documented findings, assessment, and plan of care. 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 History of Any Multi-Drug Resistant Organisms: MRSA Year Discovered:: 2007 MDRO Source:: back Past Surgical History: Adenoidectomy, Heart Catheterization, Orthopedic Surgery, Prostate Surgery, Tonsillectomy Additional Past Surgical History / Comment(s): Multiple facial surgeries to remove melanoma by R eyes lateral corner/neck dissection to remove numerous (70) lymph nodes, UVPP and deviated septum surgery, arthroscopy rt knee, 3 cardiac caths-last one done 04/14/18, TURP and 2 surgeries after to remove scar tissue, surgical removal back sore (MRSA). Past Anesthesia/Blood Transfusion Reactions: Previous Problems w/ Anesthesia Additional Past Anesthesia/Blood Transfusion Reaction / Comm: hard to wake up out of anestheia Past Psychological History: No Psychological Hx Reported Additional Psychological History / Comment(s): Pt resides with his daughter. He uses no assistive device. He drives. He recently was approved for disablitiy but still needs to apply for medicaid. Smoking Status: Never smoker Past Alcohol Use History: None Reported Past Drug Use History: None Reported - Past Family History Father Family Medical History: Myocardial Infarction (MA) Additional Family Medical History / Comment(s): Father of a MA at the age of 40yrs. Mother Family Medical History: Congestive Heart Failure (CHF), Coronary Artery Disease (CAD), CVA/TIA Additional Family Medical History / Comment(s): Mother had mitral valve re gurgitation. She had a "massive" stroke and of CHF at the age of 75yrs. Brother(s) Family Medical History: Diabetes Mellitus Additional Family Medical History / Comment(s): Pt had one brother of a MA at the age of 50 yrs, another brother of a MA at the age of 55yrs after CABG and another brother who has 3 stents. Medications and Allergies Home Medications Medication Instructions Recorded Confirmed Type Furosemide [Lasix] 40 mg PO DAILY 03/12/18 10/23/21 History Losartan [Cozaar] 50 mg PO DAILY 03/12/18 10/23/21 History Metoprolol Tartrate [Lopressor] 50 mg PO BID 03/12/18 10/23/21 History Pregabalin [Lyrica] 200 mg PO BID 07/31/18 10/23/21 History metFORMIN HCL [Glucophage] 1,000 mg PO BID 07/31/18 10/23/21 History ALPRAZolam [Xanax] 0.25 mg PO BID PRN 10/23/21 10/23/21 History Acarbose 50 mg PO TID-W/MEALS 10/23/21 10/23/21 History Acetaminophen Tab [Tylenol Tab] 500 mg PO Q8H PRN 10/23/21 10/23/21 History Albuterol Nebulized [Ventolin 2.5 mg INHALATION RT-QID PRN 10/23/21 10/23/21 History Nebulized] Albuterol Sulfate [Ventolin HFA] 2 puff INHALATION RT-Q6H PRN 10/23/21 10/23/21 History Amitriptyline HCl [Elavil] 50 mg PO HS 10/23/21 10/23/21 History Clotrimazole/Betameth Cream 1 applic TOPICAL BID 10/23/21 10/23/21 History [Lotrisone] Fenofibrate Nanocrystallized 48 mg PO DAILY 10/23/21 10/23/21 History [Fenofibrate] Ibuprofen [Motrin] 800 mg PO Q8H PRN 10/23/21 10/23/21 History Sertraline [Zoloft] 50 mg PO DAILY 10/23/21 10/23/21 History carBAMazepine [TEGretol] 400 mg PO BID 10/23/21 10/23/21 History glipiZIDE XL [Glucotrol Xl] 10 mg PO DAILY 10/23/21 10/23/21 History Allergies Allergy/AdvReac Type Severity Reaction Status Date / Time gabapentin [From Neurontin] AdvReac EXCESSIVE Verified 10/23/21 08:15 SWEATING Surgical - Exam Vital Signs Temp Pulse Resp BP Pulse Ox 98.3 F 100 20 142/88 92 L 10/23/21 02:42 10/23/21 02:42 10/23/21 02:42 10/23/21 02:42 10/23/21 02:42 Results - Labs 11/09/21 04:25 11/09/21 04:25 Abnormal Lab Results - Last 24 Hours (Table) 11/08/21 11/08/21 11/08/21 Range/Units 03:15 18:06 23:52 RBC (4.30-5.90) m/uL Hgb (13.0-17.5) gm/dL Hct (39.0-53.0) % D-Dimer (<0.60) mg/L FEU ABG pH (7.35-7.45) ABG pO2 (83-108) mmHg ABG HCO3 (21-25) mmol/L ABG Total CO2 (19-24) mmol/L Potassium (3.5-5.1) mmol/L Carbon Dioxide (22-30) mmol/L Creatinine (0.66-1.25) mg/dL Glucose (74-99) mg/dL POC Glucose (mg/dL) 142 H 142 H (75-99) mg/dL Calcium (8.4-10.2) mg/dL ALT (4-49) U/L C-Reactive Protein (<1.0) mg/dL Total Protein (6.3-8.2) g/dL Albumin (3.5-5.0) g/dL Procalcitonin 0.19 H (0.02-0.09) ng/mL 11/09/21 11/09/21 11/09/21 Range/Units 04:25 04:25 05:00 RBC 3.33 L (4.30-5.90) m/uL Hgb 10.6 L (13.0-17.5) gm/dL Hct 32.4 L (39.0-53.0) % D-Dimer 7.03 H (<0.60) mg/L FEU ABG pH (7.35-7.45) ABG pO2 (83-108) mmHg ABG HCO3 (21-25) mmol/L ABG Total CO2 (19-24) mmol/L Potassium 3.4 L (3.5-5.1) mmol/L Carbon Dioxide 35 H (22-30) mmol/L Creatinine 0.55 L (0.66-1.25) mg/dL Glucose 110 H (74-99) mg/dL POC Glucose (mg/dL) (75-99) mg/dL Calcium 7.9 L (8.4-10.2) mg/dL ALT 63 H (4-49) U/L C-Reactive Protein 7.8 H (<1.0) mg/dL Total Protein 5.6 L (6.3-8.2) g/dL Albumin 2.6 L (3.5-5.0) g/dL Procalcitonin (0.02-0.09) ng/mL 11/09/21 11/09/21 Range/Units 05:55 06:10 RBC (4.30-5.90) m/uL Hgb (13.0-17.5) gm/dL Hct (39.0-53.0) % D-Dimer (<0.60) mg/L FEU ABG pH 7.52 H (7.35-7.45) ABG pO2 75 L (83-108) mmHg ABG HCO3 35 H (21-25) mmol/L ABG Total CO2 37 H (19-24) mmol/L Potassium (3.5-5.1) mmol/L Carbon Dioxide (22-30) mmol/L Creatinine (0.66-1.25) mg/dL Glucose (74-99) mg/dL POC Glucose (mg/dL) (75-99) mg/dL Calcium (8.4-10.2) mg/dL ALT (4-49) U/L C-Reactive Protein (<1.0) mg/dL Total Protein (6.3-8.2) g/dL Albumin (3.5-5.0) g/dL Procalcitonin 0.14 H (0.02-0.09) ng/mL Microbiology - Last 24 Hours (Table) 11/06/21 16:15 Gram Stain - Final Sputum Sputum Culture - Final Staphylococcus aureus Bibi albicans 11/03/21 15:40 Blood Culture - Preliminary Blood No Growth after 120 hours 11/06/21 10:07 Blood Culture Gram Stain - Final Blood Blood Culture - Final Coagulase Negative Staph Coagulase Negative Staph#2 Diabetes panel 11/08/21 11/09/21 Range/Units 17:53 04:25 Sodium 138 (137-145) mmol/L Potassium 3.8 3.4 L (3.5-5.1) mmol/L Chloride 101 (98-107) mmol/L Carbon Dioxide 35 H (22-30) mmol/L BUN 20 (9-20) mg/dL Creatinine 0.55 L (0.66-1.25) mg/dL Glucose 110 H (74-99) mg/dL Calcium 7.9 L (8.4-10.2) mg/dL AST 37 (17-59) U/L ALT 63 H (4-49) U/L Alkaline Phosphatase 98 (38-126) U/L Total Protein 5.6 L (6.3-8.2) g/dL Albumin 2.6 L (3.5-5.0) g/dL Calcium panel 11/09/21 Range/Units 04:25 Calcium 7.9 L (8.4-10.2) mg/dL Albumin 2.6 L (3.5-5.0) g/dL Pituitary panel 11/08/21 11/09/21 Range/Units 17:53 04:25 Sodium 138 (137-145) mmol/L Potassium 3.8 3.4 L (3.5-5.1) mmol/L Chloride 101 (98-107) mmol/L Carbon Dioxide 35 H (22-30) mmol/L BUN 20 (9-20) mg/dL Creatinine 0.55 L (0.66-1.25) mg/dL Glucose 110 H (74-99) mg/dL Calcium 7.9 L (8.4-10.2) mg/dL Adrenal panel 11/08/21 11/09/21 Range/Units 17:53 04:25 Sodium 138 (137-145) mmol/L Potassium 3.8 3.4 L (3.5-5.1) mmol/L Chloride 101 (98-107) mmol/L Carbon Dioxide 35 H (22-30) mmol/L BUN 20 (9-20) mg/dL Creatinine 0.55 L (0.66-1.25) mg/dL Glucose 110 H (74-99) mg/dL Calcium 7.9 L (8.4-10.2) mg/dL Total Bilirubin 0.7 (0.2-1.3) mg/dL AST 37 (17-59) U/L ALT 63 H (4-49) U/L Alkaline Phosphatase 98 (38-126) U/L Total Protein 5.6 L (6.3-8.2) g/dL Albumin 2.6 L (3.5-5.0) g/dL
[2021-11-09 17:42] LABS: Glucose,Whole Blood 106 mg/dL (75-99)
--- NOTE | 2021-11-09 19:40 | P.PN ---
Progress Note - Text Progress Note Date: 11/09/21 Chief Complaint: Short of breath This is a pleasant 61-year-old patient, chronic stable medical conditions include diabetes, hypertension, hyperlipidemia, osteoarthritis, peripheral neuropathy, chronic gout. Patient presents with increasing shortness of breath. Cough. Clear sputum. Fever and chills. Tired rundown decrease appetite and diarrhea about 2 times a day. Patient tested positive for COVID-19 on October 09. His initial rapid COVID-19 was negative. In the send out came back positive. Patient did not take the vaccine against COVID-19. He is on 8 L of oxygen this morning. He is outside the window for Remdesivir. Admitted with COVID 19 pneumonitis, acute hypoxic respiratory failure. Started on Decadron. IV fluids. October 24: Feeling a bit better. Short of breath. 92% on 11 L. Did eat some. Sitting at the edge of the bed. A bit tired October 25: Short of breath. Cough. Oral intake fair. On 11 L of nasal cannula. Did sit up in a chair. October 26: Short of breath. Oral intake fair. Cough. 11 L nasal cannula. Dexamethasone. Chest CTA showing bilateral pulmonary embolism. October 27: Short of breath. Eating fair. 15 L nasal cannula. Tired. October 28: Remains on 15 L of nasal cannula. Eating about 50%. Short of breath. Tired. Trying to change his positions in bed. Including prone. October 29: Patient more short of breath and tired. Pulse oxing 87% on 15 L. Laying in bed. Eating around 50%. Late in the afternoon seen by pulmonary and patient be moved to ICU. October 30: Patient moved to ICU yesterday. Because of more respiratory compromise. Intubated earlier today. Drips include Diprivan, fentanyl, Nimbex, Levophed. Sinus rhythm. FiO2 19 a PEEP of 18. October 31: ICU: Ventilator/FiO2 19 a PEEP of 18. Drips include MX, propofol, fentanyl. Epinephrine. November 01: ICU: On the ventilator FiO2 55 PEEP of 16. Drips included propofol, Nimbex, fentanyl. 2 feeding at 29 mL an hour. November 02: ICU. Ventilator 45/16. Drips include fentanyl, propofol, Nimbex. 2 feeding at 20 mL an hour. November 03: ICU. Ventilator 45/12. Drips include fentanyl, propofol. 2 feeding at 29 mL an hour. November 04: ICU. Overnight patient went into respiratory distress. X-ray was looking worse. Patient put back on 100% FiO2 and a PEEP of 16. Patient is put back on drips of currently include fentanyl, propofol, Nimbex. 2 feeding. Sedated November 05: ICU: Current drips include fentanyl, propofol, Nimbex. Ventilator: 75/16. 2 feeding at 30 mL an hour. Sinus rhythm. Blood cultures coming back coagulase-negative/staph epidermidis likely contaminant November 06: ICU: Earlier today attempt was made to cut back on the Nimbex. Patient became restless. Had to be put back on the same. Current drips include fentanyl, Nimbex, propofol. FiO2 55 and a PEEP of 16. Telemetry shows sinus rhythm. 2 feeding at 30 mL an hour. November 07: ICU: at the bedside. Ventilator: 55/16. Telemetry: Sinus rhythm. Drips include fentanyl, propofol, Nimbex. 2 feeding at 27 mL an hour. November 08: ICU: Ventilator: 55/16. Drips included propofol, fentanyl, Nimbex. [address] Sinus rhythm. November 09: ICU. Ventilator 55/16. Drips included propofol, fentanyl, Nimbex. Nimbex is being titrated down. 2 feeding. Sinus rhythm. Patient's daughter the bedside. Updated. Review of systems: Intubated Active Medications Acetaminophen (Acetaminophen Tab 325 Mg Tab) 650 mg PO Q6HR PRN PRN Reason: Mild Pain or Fever > 100.5 Last Admin: 10/29/21 15:46 Dose: 650 mg Documented by: Albuterol Sulfate (Albuterol Hfa Inhaler) 2 puff INHALATION RT-QID PRN PRN Reason: Shortness Of Breath Last Admin: 11/09/21 15:55 Dose: 2 puff Documented by: Artificial Tears (Artificial Tears-Hypromellose Drops 15 Ml Btl) 2 drops BOTH EYES Q4HR [facility] Last Admin: 11/09/21 16:26 Dose: 2 drops Documented by: Ascorbic Acid (Ascorbic Acid 500 Mg Tab) 1,000 mg PO DAILY [facility] Last Admin: 11/09/21 10:08 Dose: 1,000 mg Documented by: Carbamazepine (Carbamazepine 200 Mg Tab) 400 mg PO BID [facility] Last Admin: 11/09/21 10:08 Dose: 400 mg Documented by: Chlorhexidine Gluconate (Chlorhexidine Gluconate 15 Ml Cup) 15 ml MUCOUS MEM BID [facility] Last Admin: 11/09/21 10:09 Dose: 15 ml Documented by: Cholecalciferol (Cholecalciferol 25 Mcg (1000 Iu) Tablet) 25 mcg PO DAILY [facility] Last Admin: 11/09/21 10:09 Dose: 25 mcg Documented by: Dexamethasone Sodium Phosphate (Dexamethasone Sod Phosphate 10 Mg/Ml 1 Ml Vial) 6 mg IVP DAILY [facility] Last Admin: 11/09/21 10:11 Dose: 4 mg Documented by: Docusate Sodium (Docusate Oral Soln 100 Mg/10 Ml Cup) 100 mg PO BID [facility] Last Admin: 11/09/21 10:10 Dose: 100 mg Documented by: Furosemide (Furosemide 10 Mg/Ml 4 Ml Vial) 40 mg IV DAILY [facility] Propofol 1,000 mg/ IV Solution 100 mls @ 0 mls/hr IV .Q0M [facility]; Protocol Last Titration: 11/09/21 18:00 Dose: 75 mcg/kg/min, 56.565 mls/hr Documented by: Piperacillin Sod/Tazobactam (Sod 3.375 gm/ Sodium Chloride) 100 mls @ 25 mls/hr IVPB Q8HR [facility] Last Admin: 11/09/21 16:26 Dose: 25 mls/hr Documented by: Cisatracurium Besylate 200 mg/ (Sodium Chloride) 200 mls @ 10.8 mls/hr IV .[id number] [facility]; Protocol Last Admin: 11/09/21 04:25 Dose: 2 mcg/kg/min, 14.4 mls/hr Documented by: Fentanyl Citrate 2,500 mcg/ (Sodium Chloride) 250 mls @ 4.082 mls/hr IV .Q24H [facility]; Protocol Last Titration: 11/09/21 17:45 Dose: 3 mcg/kg/hr, 24.494 mls/hr Documented by: Vancomycin HCl 2,250 mg/ (Sodium Chloride) 500 mls @ 167 mls/hr IVPB Q12H [facility] Last Admin: 11/09/21 12:24 Dose: 167 mls/hr Documented by: Insulin Aspart (Insulin Aspart (Novolog) 100 Unit/Ml Vial) 0 unit SQ Q6HR [facility]; Protocol Last Admin: 11/09/21 18:18 Dose: Not Given Documented by: Insulin Detemir (Insulin Detemir (Levemir) 100 Unit/Ml Syr) 20 unit SQ HS [facility] Last Admin: 11/08/21 21:22 Dose: 20 unit Documented by: Metoprolol Tartrate (Metoprolol Tartrate 50 Mg Tab) 50 mg PO BID [facility] Last Admin: 11/09/21 10:10 Dose: Not Given Documented by: Miscellaneous Information (Potassium Replacement Protocol 1 Each Misc) 1 each MISCELLANE DAILY PRN; Protocol PRN Reason: Per Protocol Miscellaneous Information (Vancomycin Trough Due 1 Each Misc) 0 each MISCELLANE DIRECTED ONE Stop: 11/10/21 09:01 Pregabalin (Pregabalin 100 Mg Cap) 200 mg PO BID [facility] Last Admin: 11/09/21 10:08 Dose: 200 mg Documented by: Sertraline HCl (Sertraline 50 Mg Tab) 50 mg PO DAILY [facility] Last Admin: 11/09/21 10:08 Dose: 50 mg Documented by: Zinc Sulfate (Zinc Sulfate 220 Mg Cap) 220 mg PO DAILY [facility] Last Admin: 11/09/21 10:09 Dose: 220 mg Documented by: Social history: Patient is on Social Security. Does not smoke or drink alcohol. Patient's daughters family lives with him. Family history: Father at the age of 40 with heart attack Physical examination: VITAL SIGNS: 97.9, 59, 28, 140s over 73, 99% on the ventilator GENERAL: Laying in bed, intubated LUNGS: Respiratory rate increased,. PSYCH: Unable to assess Rest of the exam per nursing and pulmonary INVESTIGATIONS, reviewed in the clinical context: November 09: D-dimer 7.03 pro-calcitonin 0.14 November 08: White count 7.5 hemoglobin 10 point potassium 3.5 creatinine 0.516.Chest x-ray film personally reviewed by nd-scattered infiltrates November 07: White count 7.60 globin 10.1 platelets 269 potassium 3.4 creatinine 0.5 to AST 30 ALT 75 November 06: WBC 9.4 hemoglobin 9.8 platelets 250 potassium 3.6 creatinine 0.48 AST 36 ALT 91 November 05: WBC 11 hemoglobin 10.4 platelets 218 potassium 4 creatinine 0.5 to Blood culture positive for Staphylococcus epidermidis/coagulates negative. November 04: WBC 13.1 hemoglobin 11.6 potassium 4.6 creatinine 0.53. Chest x-ray film personally reviewed by me-bilateral infiltrates November 03: White count 11.9 hemoglobin 12 platelets 266 potassium 4.2 creatinine 0.55 AST 63 ALT 64 pro-calcitonin 0.12 November 02: White count 8 hemoglobin 10.5 potassium 4.4. 23 creatinine 0.5 to November 01: White count 11.1 hemoglobin 11.6 platelets 203 d-dimer 10.6 potassium 4.7 creatinine 0.73 October 31: White count 12.1 hemoglobin 12.2 platelets 240 potassium 4.8 creatinine 0.61 October 30: White count 12.9 hemoglobin 13.1 potassium 5.6 creatinine 0.69 October 29: White count 13.1 hemoglobin 13.8 d-dimer 16.2 potassium 4.7 creatinine 0.76 October 28: D-dimer 13.4 to October 26: D-dimer 8.48 CRP 24 Chest CTA [October 26: biLateral pulmonary embolism Doppler ultrasound lower extremity: Negative for DVT October 24: White count 9.7 hemoglobin 15.3 platelets 221 d-dimer 1.93 progression 4.2 creatinine 0.71 CRP 5.5 pro-calcitonin 0.08 White count 9.9 hemoglobin 16 platelets 234 d-dimer 0.98 sodium 141 potassium 3.4 creatinine 0.81 Lactic acid 2.9 LDH 1422 CRP 7.5 EKG tracing personally reviewed by me-normal sinus rhythm. Nonspecific ST segment changes. Chest x-ray film personally reviewed by me-bilateral infiltrates Assessment and plan: -Acute severe COVID 19 pneumonitis in a patient who did not take the COVID-19 vaccine: Slow to respond Dexamethasone, vitamin C, vitamin D, zinc. Patient's outside the window for Remdesivir. -Acute hypoxic respiratory failure from COVID-19: Slow to respond intubated October 30. FiO2 55 and a PEEP of 16 -Bilateral pulmonary embolism secondary to COVID-19 Eliquis -Essential hypertension Lopressor 50 mg twice a day, Cozaar 50 mg daily -Diabetes mellitus type 2, on oral hypoglycemic, uncontrolled with hyperglycemia Glucophage thousand milligrams twice a day. Follow Accu-Chek. Precose. Levemir 20 units daily at bedtime -Chronic insomnia for medical conditions Elavil 50 mg daily at bedtime -Hyperlipidemia TriCor 48 mg daily -Obstructive sleep apnea On CPAP at home -Diabetic peripheral neuropathy Lyrica 200 mg twice daily -Full code Drips : fentanyl , propofol Nimbex. Ventilator. Tube feeding . Nimbex is being titrated down. Discussed with daughter. Remains critical.
[2021-11-09] MEDS: INSULIN DETEMIR (LEVEMIR) 100 UNIT/ML SYR SQ SCH (20:57)
[2021-11-09] MEDS: CLEVIDIPINE BUTYRATE 25 MG in EMPTY BAG 1 BAG IV SCH (22:45)
[2021-11-09 23:37] LABS: Glucose,Whole Blood 94 mg/dL (75-99)
[2021-11-10] MEDS: PIPERACILLIN-TAZOBACTAM 3.375 GM in SODIUM CHLORIDE 0.9% 100 ML IVPB SCH ×4 (01:02→23:45)
[2021-11-10 04:25] LABS: HGB 10.1 gm/dL (13.0-17.5); WBC 6.6 k/uL (3.8-10.6)
[2021-11-10 04:26] LABS: Basophils # (A) 0.1 k/uL (0-0.2); Basophils % (A) 1 %; Eosinophils # (A) 0.3 k/uL (0-0.7); Eosinophils % (A) 4 %; HCT 31.1 % (39.0-53.0); Hypochromasia Slight; Lymphocytes # (A) 1.2 k/uL (1.0-4.8); Lymphocytes % (A) 19 %; MCH 32.5 pg (25.0-35.0); MCHC 32.4 g/dL (31.0-37.0); MCV 100.1 fL (80.0-100.0); Macrocytosis Slight; Monocytes # (A) 0.5 k/uL (0-1.0); Monocytes % (A) 8 %; Neutrophils # (A) 4.4 k/uL (1.3-7.7); Neutrophils % (A) 66 %; Platelet Count 239 k/uL (150-450)
[2021-11-10 04:37] LABS: Potassium 3.9 mmol/L (3.5-5.1)
[2021-11-10 04:40] LABS: ALT 57 U/L (4-49); AST 39 U/L (17-59); African American GFR (CKD) >90 (>60 ml/min/1.73 sqM); Albumin 2.2 g/dL (3.5-5.0); Alkaline Phosphatase 84 U/L (38-126); Anion Gap 2 mmol/L; Blood Urea Nitrogen 18 mg/dL (9-20); C Reactive Protein 6.9 mg/dL (<1.0); Calcium 7.9 mg/dL (8.4-10.2); Carbon Dioxide 32 mmol/L (22-30); Chloride 103 mmol/L (98-107); Glucose 100 mg/dL (74-99); LDH 558 U/L (313-618); Non-African American GFR(CKD) >90 (>60 ml/min/1.73 sqM); Sodium 137 mmol/L (137-145); Total Bilirubin 0.8 mg/dL (0.2-1.3); Total Protein 4.9 g/dL (6.3-8.2)
[2021-11-10] MEDS: ARTIFICIAL TEARS-HYPROMELLOSE DROPS 15 ML BTL BOTH EYES SCH ×6 (04:51→23:45)
[2021-11-10] MEDS: INSULIN ASPART (NovoLOG) 100 UNIT/ML VIAL SQ SCH ×4 (05:03→23:46)
[2021-11-10 05:08] LABS: ABG Base Excess 7.5 mmol/L; ABG HCO3 32 mmol/L (21-25); ABG Oxygen Saturation 95.2 % (94-97); ABG PCO2 50 mmHg (35-45); ABG PH 7.42 (7.35-7.45); ABG PO2 76 mmHg (83-108); ABG TCO2 34 mmol/L (19-24)
[2021-11-10] MEDS: POTASSIUM CHLORIDE 10 MEQ in WATER FOR INJECTION 1 100ML.BAG IVPB SCH ×2 (05:19→06:38)
[2021-11-10] MEDS: CISATRACURIUM 200 MG in SODIUM CHLORIDE 0.9% 180 ML IV SCH ×2 (05:23→19:55)
[2021-11-10 05:49] LABS: Allen Test Performed? no
[2021-11-10] MEDS: ALBUTEROL HFA INHALER INHALATION PRN ×3 (07:53→15:17)
--- NOTE | 2021-11-10 07:56 | P.PN ---
Subjective Progress Note Date: 11/10/21 61-year-old male patient with past medical history of diabetes mellitus type 2 with diabetic neuropathy, hypertension, hyperlipidemia, previous history of CVA, rheumatoid arthritis, obstructive sleep apnea S/P UPPP, history of right eye melanoma with previous surgeries, BPH with previous TURP, chronic lower extremity edema, cellulitis, gout, presented to the emergency department on 10/23/2021 at 240 3 in the morning with complaints of severe shortness of breath, cough, congestion. Patient states he has had symptoms since October 09, initially was tested via rapid COVID-19 PCR test which was negative however the send out PCR test came back positive. Patient was transferred to the intensive care on 10/29/2022, and was intubated in next day on 10/30/2022. On today's evaluation of 11/09/2021, the patient is being seen for a follow-up. He currently remains intubated, sedated and paralyzed, he is currently on assist control mode of ventilation with a rate of 32, tidal arm is 450, FiO2 of 55% and PEEP of 16. This morning's blood gas has been reviewed showing pO2 of 75, pCO2 of 44, and pH of 7.52. The patient's serum bicarb is currently at 35. The patient has developed some metabolic alkalosis as the patient is being diuresis with IV Lasix. The chest x-ray from today is showing adequate positioning of the orotracheal tube. The patient continues to have diffuse bilateral pulmonary infiltrates. There is loss in the left hemidiaphragm which is obviously silhouetted probably related to a left lower lobe pulmonary infiltration. Right lung infiltration seems to have improved compared to yesterday. Patient is currently on 0.9 at 20 ML per hour, fentanyl infusion at 2 mics per kilo per hr , diprivan at 60 mics per kilo per minute, Nimbex at 2 mics per kilo per minute He is tolerating his tube feedings, he is on vital high-protein at 23 with a goal of 23 and standard water flushes. Hemodynamically patient has been stable, he remains in sinus mechanism, not requiring any vasopressor support, he remains on antibiotics in the form of Zosyn for positive blood cultures, his last set of blood cultures from 11/06/2021 showed 2 coagulase-negative staph organisms, blood culture from the same day showed no growth, his sputum culture showed few PMNs, moderate gram-positive cocci, presumed staph. The Procal was 0.19, highest 0.31. Patient has been afebrile, hemodynamically he has been stable. Patient has received intermittent doses of diuretics. He currently remains on Decadron 6 mg daily, she is on Eliquis 5 mg twice daily for evidence of PE that was diagnosed during this admission. 2021, the patient is scheduled to undergo a tracheostomy tube and affect tube insertion by general surgery. This morning, the patient remains sedated and paralyzed. He remains on propofol which is currently running at 60 mg/kg per minute and the patient is also on fentanyl running at the rate of 2 g 60 mg an hour. and the patient is also Nimbex at 2 mcg/kg per minute. The patient remains on a mechanical ventilator. The patient remains on a volume cycle mode of mechanical ventilation with a tidal volume of 450 and this was dropped down to 400 yesterday with a respiratory rate of 28 and FiO2 is currently at 50% with a PEEP of 15. The patient's peak airway pressures around 40. Sodium of pressure has been around 38. Chest x-ray is unchanged and shows diffuse bi lateral pulmonary infiltrates. ET tube needs to be pushed him by another 1 cm as the patient's ET tube is sitting high up in the trachea. OG tube is in place. The patient also has a PICC line in the left upper extremity. The blood gases from today shows a pH of 7.42 with a pCO2 of 50 and a pO2 of 76. No significant orotracheal secretions. Pulse ox on a monitored in order of 97%. In terms of his COVID 19 treatment, the patient has been maintained on Decadron 6 mg IV every 24 hours. He did have abnormal blood cultures. Coagulase negative staph aureus and the blood on 2 separate blood cultures and the most recent sputum analysis was done on 11/06/2021 showed bibi and MSSA. Based on that, the patient has been covered with antibiotics and the patient is currently on Zosyn and vancomycin. The patient is also receiving Lasix 40 mg IV every 24 hours. Overall fluid balance on this patient over the past 24 hours has been +3 L. Note that the patient is also hypertensive on today's evaluation. He is on Lopressor for that. Side effects were easily used if needed for ongoing hype rtension. His most recent pro-calcitonin level was 0.19. The highest LEVEL WAS 0.31. HE REMAINS ON ANTICOAGULATION WITH ELIQUIS 5 MG BY MOUTH TWICE A DAY REGARDING PREVIOUS HISTORY OF PULMONARY EMBOLISM THAT WAS URGENTLY DIAGNOSIS SOME OF HIS ADMISSION. HE REMAINS ON LEVEMIR INSULIN 20 UNITS FOR BLOOD SUGAR CONTROL ALONG WITH ASCITES Coverage. Tube Feeds Are Currently on Hold Pending PEG and Trach Insertion. Earlier, the Patient Was Receiving Enteral Feeding and This Was in the Form of Vital High-Protein. Other/1 Objective - Vital Signs Vital signs: Vital Signs Temp 99.2 F 11/10/21 04:00 Pulse 64 11/10/21 07:00 Resp 28 H 11/10/21 07:00 BP 116/68 11/10/21 07:00 Pulse Ox 97 11/10/21 07:00 Intake & Output 11/09/21 11/10/21 11/10/21 18:59 06:59 18:59 Intake Total 2103.084 1977.137 77.852 Output Total 465 535 30 Balance 4551.274 1731.137 47.852 Weight 125.7 kg 130.6 kg Intake: IV 256 1053 23 0.9 NS KVO 220 220 20 Piperacillin-Tazobactam 3 100 .375 gm In Sodium Chloride 0.9% 100 ml @ 25 mls/hr IVPB Q8HR COUNT INCLUDES THE [facility] Rx# :[id number] Potassium Chloride 10 meq 200 In Water For Injection 1 100ml.bag @ 100 mls/hr IVPB Q1H COUNT INCLUDES THE [facility] Rx#: [id number] Pressure bag 36 33 3 Vancomycin 2,250 mg In 500 Sodium Chloride 0.9% 500 ml 500 ml @ 167 mls/hr IVPB Q12H COUNT INCLUDES THE [facility] Rx#: [id number] Intake, IV Titration 1702.084 776.137 54.852 Amount Cisatracurium 200 mg In 200 190 Sodium Chloride 0.9% 180 ml @ 1.5 MCG/KG/MIN 10.8 mls/hr IV .[id number] COUNT INCLUDES THE [facility] Rx #:[id number] Sodium Chloride 0.9% 1, 1000 000 ml @ 999 mls/hr IV . Q1H1M [facility] Rx#:[id number] fentaNYL (PF) 2,500 mcg 221.258 184.684 In Sodium Chloride 0.9% 200 ml @ 0.5 MCG/KG/HR 4. 082 mls/hr IV .Q24H [facility] Rx#:[id number] propofoL 1,000 mg In 280.826 401.453 54.852 Empty Bag 1 bag @ Titrate IV .Q0M [facility] Rx#: [id number] Tube Feeding 115 115 0 Lipid 3 Pressure bag 3 Other 30 30 Output: Urine 465 535 30 Other: Voiding Method Indwelling Catheter Indwelling Catheter ABP, PAP, CO, CI - Last Documented Arterial Blood Pressure 122/60 - Exam GENERAL EXAM: Alert, restless 61-year-old male patient, the patient remains intubated on a mechanical ventilator and the patient is sedated and paralyzed for now. HEAD: Normocephalic. EYES: Normal reaction of pupils, equal size. NOSE: Clear with pink turbinates. THROAT: No erythema or exudates. NECK: No masses, no JVD. CHEST: No chest wall deformity. LUNGS: Equal air entry with coarse crackles in the posterior bases. CVS: S1 and S2 normal with no audible murmur, regular rhythm. ABDOMEN: No hepatosplenomegaly, normal bowel sounds, no guarding or rigidity. SPINE: No scoliosis or deformity SKIN: No rashes CENTRAL NERVOUS SYSTEM: No focal deficits, tone is normal in all 4 extremities. EXTREMITIES: There is no peripheral edema. No clubbing, no cyanosis. Peripheral pulses are intact. - Labs CBC & Chem 7: 11/10/21 04:00 11/10/21 04:00 Labs: Abnormal Lab Results - Last 24 Hours (Table) 11/09/21 11/09/21 11/10/21 Range/Units 05:55 17:40 04:00 RBC 3.10 L (4.30-5.90) m/uL Hgb 10.1 L (13.0-17.5) gm/dL Hct 31.1 L (39.0-53.0) % MCV 100.1 H (80.0-100.0) fL ABG pCO2 (35-45) mmHg ABG pO2 (83-108) mmHg ABG HCO3 (21-25) mmol/L ABG Total CO2 (19-24) mmol/L Carbon Dioxide (22-30) mmol/L Creatinine (0.66-1.25) mg/dL Glucose (74-99) mg/dL POC Glucose (mg/dL) 106 H (75-99) mg/dL Calcium (8.4-10.2) mg/dL ALT (4-49) U/L C-Reactive Protein (<1.0) mg/dL Total Protein (6.3-8.2) g/dL Albumin (3.5-5.0) g/dL Procalcitonin 0.14 H (0.02-0.09) ng/mL 11/10/21 11/10/21 Range/Units 04:00 05:05 RBC (4.30-5.90) m/uL Hgb (13.0-17.5) gm/dL Hct (39.0-53.0) % MCV (80.0-100.0) fL ABG pCO2 50 H (35-45) mmHg ABG pO2 76 L (83-108) mmHg ABG HCO3 32 H (21-25) mmol/L ABG Total CO2 34 H (19-24) mmol/L Carbon Dioxide 32 H (22-30) mmol/L Creatinine 0.61 L (0.66-1.25) mg/dL Glucose 100 H (74-99) mg/dL POC Glucose (mg/dL) (75-99) mg/dL Calcium 7.9 L (8.4-10.2) mg/dL ALT 57 H (4-49) U/L C-Reactive Protein 6.9 H (<1.0) mg/dL Total Protein 4.9 L (6.3-8.2) g/dL Albumin 2.2 L (3.5-5.0) g/dL Procalcitonin (0.02-0.09) ng/mL Microbiology - Last 24 Hours (Table) 11/03/21 15:40 Blood Culture - Final Blood No Growth after 144 hours 11/06/21 16:15 Gram Stain - Final Sputum Sputum Culture - Final Staphylococcus aureus Bibi albicans Assessment and Plan Plan: 1 Acute hypoxic respiratory failure related to acute COVID-19 related pneumonia, patient presented to the emergency department on 10/23/2021 with 2 week history of symptoms, patient is outside the window for Remdesivir, he is a non-vaccinated adult. The patient was transferred to the intensive care unit , the patient was started on BiPAP and ultimately failed BiPAP and the patient was intubated and placed on a mechanical ventilator. Currently is on a pressure control mode of mechanical ventilation. He has adequate oxygenation and ventilation for now. He is sedated and paralyzed. He continues to be on a combination of Decadron and Baricitinib. The Baricitinib was subsequently discontinued and the patient was considered to underlying infection. Pro- calcitonin level was elevated. Blood culture came back positive for coagulase- negative staph. Sputum cultures showing presumed staph aureus/ MSSA. The patient is currently on antibiotics and he is receiving a combination of Zosyn and vancomycin. The patient will be taken off the vancomycin. We'll keep Zosyn for now. We'll hold anticoagulation pending a tracheostomy tube insertion today. Chest x-ray was noted. Blood gases was noted. Note that the patient was intubated since 10/30/2021. Chest x-ray from today remains unchanged. Blood gases are noted. 2 Bilateral pulmonary emboli on computed tomography scan 10/26/2021. Continued on Eliquis. 3 Diabetes mellitus type 2 with diabetic neuropathy currently on Levemir insulin for blood sugar control 4 Hypertension 5 Hyperlipidemia 6 Obstructive sleep apnea with previous history of UPPP 7 History of right eye melanoma with multiple surgeries 8 Previous history of CVA 9 Rheumatoid arthritis 10 History of gout 11 Previous history of MRSA infection in the wound on his back 12 Mild lactic acidosis, improved with IV hydration 13 Elevated inflammatory markers related to acute COVID-19 pneumonia 14 BPH with previous history of TURP 15 pneumomediastinum and subcutaneous emphysema, complications of COVID 19 related pneumonia, stable Plan: Continue ventilator support with pressure control mode of mechanical ventilation. No changes PEG and tracheostomy tube today. Drop TV to 400 and Fio2 to 50 Keep Zosyn DC Vanco Continue Decadron anticoagulation with Eliquis , on hold for procedures Keep the patient sedated and paralyzed for now Chest x-ray was reviewed , stable findings Enteral feeding for nutritional support Family was updated on the condition Condition is critical . Critically care evaluation that was on a more than 30 minutes. Time with Patient: Greater than 30
[2021-11-10] MEDS: CLEVIDIPINE BUTYRATE 25 MG in EMPTY BAG 1 BAG IV SCH ×2 (08:05→20:49)
[2021-11-10] MEDS: METOPROLOL TARTRATE 50 MG TAB PO SCH ×2 (08:55→22:00)
[2021-11-10] MEDS: fentaNYL (PF) 2,500 MCG in SODIUM CHLORIDE 0.9% 200 ML IV SCH (08:55)
[2021-11-10] MEDS ORDERED: VANCOMYCIN TROUGH DUE 1 EACH MISC MISCELLANE ONE (09:00)
[2021-11-10] MEDS: carBAMazepine 200 MG TAB PO SCH ×2 (09:12→22:00)
[2021-11-10] MEDS: DOCUSATE ORAL SOLN 100 MG/10 ML CUP PO SCH ×2 (09:13→21:06)
[2021-11-10] MEDS: CHLORHEXIDINE GLUCONATE 15 ML CUP MUCOUS MEM SCH ×2 (09:13→21:06)
[2021-11-10] MEDS: DEXAMETHASONE SOD PHOSPHATE 10 MG/ML 1 ML VIAL IVP SCH (09:13)
[2021-11-10] MEDS: SERTRALINE 50 MG TAB PO SCH (09:14)
[2021-11-10] MEDS: PREGABALIN 100 MG CAP PO SCH ×2 (09:14→21:06)
--- NOTE | 2021-11-10 09:36 | XR ---
EXAMINATION TYPE: XR chest 1V portable DATE OF EXAM: 11/10/2021 COMPARISON: 11/09/2021 HISTORY: Shortness of breath TECHNIQUE: Single frontal view of the chest is obtained. FINDINGS: Diffuse bilateral areas of infiltrate are noted with a more consolidative process left low er lobe. Small bilateral effusions. ET tube, NG tube and central line stable. No sizable pneumothorax . Hypertrophic and degenerative change of the spine. Surgical clips overlying soft tissues right neck . IMPRESSION: Stable bilateral diffuse infiltrate
[2021-11-10 11:36] LABS: Glucose,Whole Blood 126 mg/dL (75-99)
[2021-11-10] MEDS ORDERED: PROPOFOL 10 MG/ML 20 ML VIAL IV ONE (13:00)
[2021-11-10] MEDS ORDERED: ROCURONIUM 10 MG/ML (5 ML VIAL) IV ONE (13:00)
[2021-11-10] MEDS ORDERED: fentaNYL (PF) 50 MCG/ML 2 ML AMP ONE (13:00)
[2021-11-10] MEDS ORDERED: IV FLUID CONTINUATION 1,000 ML IV ONE (13:06)
[2021-11-10] MEDS: FUROSEMIDE 10 MG/ML 4 ML VIAL IV SCH (13:15)
--- NOTE | 2021-11-10 13:26 | P.PN ---
Progress Note - Text Progress Note Date: 11/10/21 Chief Complaint: Short of breath This is a pleasant 61-year-old patient, chronic stable medical conditions include diabetes, hypertension, hyperlipidemia, osteoarthritis, peripheral neuropathy, chronic gout. Patient presents with increasing shortness of breath. Cough. Clear sputum. Fever and chills. Tired rundown decrease appetite and diarrhea about 2 times a day. Patient tested positive for COVID-19 on October 09. His initial rapid COVID-19 was negative. In the send out came back positive. Patient did not take the vaccine against COVID-19. He is on 8 L of oxygen this morning. He is outside the window for Remdesivir. Admitted with COVID 19 pneumonitis, acute hypoxic respiratory failure. Started on Decadron. IV fluids. October 24: Feeling a bit better. Short of breath. 92% on 11 L. Did eat some. Sitting at the edge of the bed. A bit tired October 25: Short of breath. Cough. Oral intake fair. On 11 L of nasal cannula. Did sit up in a chair. October 26: Short of breath. Oral intake fair. Cough. 11 L nasal cannula. Dexamethasone. Chest CTA showing bilateral pulmonary embolism. October 27: Short of breath. Eating fair. 15 L nasal cannula. Tired. October 28: Remains on 15 L of nasal cannula. Eating about 50%. Short of breath. Tired. Trying to change his positions in bed. Including prone. October 29: Patient more short of breath and tired. Pulse oxing 87% on 15 L. Laying in bed. Eating around 50%. Late in the afternoon seen by pulmonary and patient be moved to ICU. October 30: Patient moved to ICU yesterday. Because of more respiratory compromise. Intubated earlier today. Drips include Diprivan, fentanyl, Nimbex, Levophed. Sinus rhythm. FiO2 19 a PEEP of 18. October 31: ICU: Ventilator/FiO2 19 a PEEP of 18. Drips include MX, propofol, fentanyl. Epinephrine. November 01: ICU: On the ventilator FiO2 55 PEEP of 16. Drips included propofol, Nimbex, fentanyl. 2 feeding at 29 mL an hour. November 02: ICU. Ventilator 45/16. Drips include fentanyl, propofol, Nimbex. 2 feeding at 20 mL an hour. November 03: ICU. Ventilator 45/12. Drips include fentanyl, propofol. 2 feeding at 29 mL an hour. November 04: ICU. Overnight patient went into respiratory distress. X-ray was looking worse. Patient put back on 100% FiO2 and a PEEP of 16. Patient is put back on drips of currently include fentanyl, propofol, Nimbex. 2 feeding. Sedated November 05: ICU: Current drips include fentanyl, propofol, Nimbex. Ventilator: 75/16. 2 feeding at 30 mL an hour. Sinus rhythm. Blood cultures coming back coagulase-negative/staph epidermidis likely contaminant November 06: ICU: Earlier today attempt was made to cut back on the Nimbex. Patient became restless. Had to be put back on the same. Current drips include fentanyl, Nimbex, propofol. FiO2 55 and a PEEP of 16. Telemetry shows sinus rhythm. 2 feeding at 30 mL an hour. November 07: ICU: at the bedside. Ventilator: 55/16. Telemetry: Sinus rhythm. Drips include fentanyl, propofol, Nimbex. 2 feeding at 27 mL an hour. November 08: ICU: Ventilator: 55/16. Drips included propofol, fentanyl, Nimbex. [address] Sinus rhythm. November 09: ICU. Ventilator 55/16. Drips included propofol, fentanyl, Nimbex. Nimbex is being titrated down. 2 feeding. Sinus rhythm. Patient's daughter the bedside. Updated. November 10: ICU. Ventilator 55/60. Drips included propofol, fentanyl, Nimbex. 2 feeding has been held because of pending tracheostomy and PEG tube. Sinus rhythm. Review of systems: Intubated Active Medications Acetaminophen (Acetaminophen Tab 325 Mg Tab) 650 mg PO Q6HR PRN PRN Reason: Mild Pain or Fever > 100.5 Last Admin: 10/29/21 15:46 Dose: 650 mg Documented by: Albuterol Sulfate (Albuterol Hfa Inhaler) 2 puff INHALATION RT-QID PRN PRN Reason: Shortness Of Breath Last Admin: 11/10/21 12:18 Dose: 2 puff Documented by: Artificial Tears (Artificial Tears-Hypromellose Drops 15 Ml Btl) 2 drops BOTH EYES Q4HR [facility] [place] Last Admin: 11/10/21 11:28 Dose: 2 drops Documented by: Ascorbic Acid (Ascorbic Acid 500 Mg Tab) 1,000 mg PO DAILY [facility] [place] Last Admin: 11/09/21 10:08 Dose: 1,000 mg Documented by: Carbamazepine (Carbamazepine 200 Mg Tab) 400 mg PO BID [facility] [place] Last Admin: 11/10/21 09:12 Dose: 400 mg Documented by: Chlorhexidine Gluconate (Chlorhexidine Gluconate 15 Ml Cup) 15 ml MUCOUS MEM BID [facility] [place] Last Admin: 11/10/21 09:13 Dose: 15 ml Documented by: Cholecalciferol (Cholecalciferol 25 Mcg (1000 Iu) Tablet) 25 mcg PO DAILY [facility] [place] Last Admin: 11/09/21 10:09 Dose: 25 mcg Documented by: Dexamethasone Sodium Phosphate (Dexamethasone Sod Phosphate 10 Mg/Ml 1 Ml Vial) 6 mg IVP DAILY [facility] [place] Last Admin: 11/10/21 09:13 Dose: 6 mg Documented by: Docusate Sodium (Docusate Oral Soln 100 Mg/10 Ml Cup) 100 mg PO BID [facility] [place] Last Admin: 11/10/21 09:13 Dose: 100 mg Documented by: Furosemide (Furosemide 10 Mg/Ml 4 Ml Vial) 40 mg IV DAILY [facility] [place] Propofol 1,000 mg/ IV Solution 100 mls @ 0 mls/hr IV .Q0M [facility] [place]; Protocol Last Admin: 11/10/21 09:50 Dose: 60 mcg/kg/min, 47.016 mls/hr Documented by: Piperacillin Sod/Tazobactam (Sod 3.375 gm/ Sodium Chloride) 100 mls @ 25 mls/hr IVPB Q8HR [facility] [place] Last Admin: 11/10/21 08:14 Dose: 25 mls/hr Documented by: Cisatracurium Besylate 200 mg/ (Sodium Chloride) 200 mls @ 10.8 mls/hr IV .[id number] [facility] [place]; Protocol Last Admin: 11/10/21 05:23 Dose: 2 mcg/kg/min, 14.4 mls/hr Documented by: Fentanyl Citrate 2,500 mcg/ (Sodium Chloride) 250 mls @ 4.082 mls/hr IV .Q24H [facility] [place]; Protocol Last Titration: 11/10/21 10:00 Dose: 2 mcg/kg/hr, 16.329 mls/hr Documented by: Clevidipine 25 mg/ IV Solution 50 mls @ 2 mls/hr IV .Q24H [facility] [place]; Protocol Last Titration: 11/10/21 09:32 Dose: 0 mg/hr, 0 mls/hr Documented by: Insulin Aspart (Insulin Aspart (Novolog) 100 Unit/Ml Vial) 0 unit SQ Q6HR [facility] [place]; Protocol Last Admin: 11/10/21 11:36 Dose: Not Given Documented by: Insulin Detemir (Insulin Detemir (Levemir) 100 Unit/Ml Syr) 20 unit SQ HS [facility] [place] Last Admin: 11/09/21 20:57 Dose: 20 unit Documented by: Metoprolol Tartrate (Metoprolol Tartrate 50 Mg Tab) 50 mg PO BID [facility] [place] Last Admin: 11/10/21 08:55 Dose: 50 mg Documented by: Miscellaneous Information (Potassium Replacement Protocol 1 Each Misc) 1 each MISCELLANE DAILY PRN; Protocol PRN Reason: Per Protocol Pregabalin (Pregabalin 100 Mg Cap) 200 mg PO BID [facility] [place] Last Admin: 11/10/21 09:14 Dose: 200 mg Documented by: Sertraline HCl (Sertraline 50 Mg Tab) 50 mg PO DAILY [facility] [place] Last Admin: 11/10/21 09:14 Dose: 50 mg Documented by: Zinc Sulfate (Zinc Sulfate 220 Mg Cap) 220 mg PO DAILY [facility] [place] Last Admin: 11/09/21 10:09 Dose: 220 mg Documented by: Social history: Patient is on Social Security. Does not smoke or drink alcohol. Patient's daughters family lives with him. Family history: Father at the age of 40 with heart attack Physical examination: VITAL SIGNS: 97.9, 59, 28, 140s over 73, 99% on the ventilator GENERAL: Laying in bed, intubated LUNGS: Respiratory rate increased,. PSYCH: Unable to assess Rest of the exam per nursing and pulmonary INVESTIGATIONS, reviewed in the clinical context: November 10: White count 6.6 1110.1 platelets 239 potassium 3.9 creatinine 0.61. Chest x-ray and telemetry personally reviewed by me. November 09: D-dimer 7.03 pro-calcitonin 0.14 November 08: White count 7.5 hemoglobin 10 point potassium 3.5 creatinine 0.516.Chest x-ray film personally reviewed by me-scattered infiltrates November 07: White count 7.60 globin 10.1 platelets 269 potassium 3.4 creatinine 0.5 to AST 30 ALT 75 November 06: WBC 9.4 hemoglobin 9.8 platelets 250 potassium 3.6 creatinine 0.48 AST 36 ALT 91 Brittny 6: WBC 11 hemoglobin 10.4 platelets 218 potassium 4 creatinine 0.5 to Blood culture positive for Staphylococcus epidermidis/coagulates negative. November 04: WBC 13.1 hemoglobin 11.6 potassium 4.6 creatinine 0.53. Chest x-ray film personally reviewed by me-bilateral infiltrates November 03: White count 11.9 hemoglobin 12 platelets 266 potassium 4.2 creatinine 0.55 AST 63 ALT 64 pro-calcitonin 0.12 November 02: White count 8 hemoglobin 10.5 potassium 4.4. 23 creatinine 0.5 to November 01: White count 11.1 hemoglobin 11.6 platelets 203 d-dimer 10.6 potassium 4.7 creatinine 0.73 October 31: White count 12.1 hemoglobin 12.2 platelets 240 potassium 4.8 creatinine 0.61 October 30: White count 12.9 hemoglobin 13.1 potassium 5.6 creatinine 0.69 October 29: White count 13.1 hemoglobin 13.8 d-dimer 16.2 potassium 4.7 creatinine 0.76 October 28: D-dimer 13.4 to October 26: D-dimer 8.48 CRP 24 Chest CTA [October 26: biLateral pulmonary embolism Doppler ultrasound lower extremity: Negative for DVT October 24: White count 9.7 hemoglobin 15.3 platelets 221 d-dimer 1.93 progression 4.2 creatinine 0.71 CRP 5.5 pro-calcitonin 0.08 White count 9.9 hemoglobin 16 platelets 234 d-dimer 0.98 sodium 141 potassium 3.4 creatinine 0.81 Lactic acid 2.9 LDH 1422 CRP 7.5 EKG tracing personally reviewed by me-normal sinus rhythm. Nonspecific ST segment changes. Chest x-ray film personally reviewed by me-bilateral infiltrates Assessment and plan: -Acute severe COVID 19 pneumonitis in a patient who did not take the COVID-19 vaccine: Slow to respond Dexamethasone, vitamin C, vitamin D, zinc. Patient's outside the window for R emdesivir. -Acute hypoxic respiratory failure from COVID-19: Slow to respond intubated October 30. FiO2 55 and a PEEP of 16 -Bilateral pulmonary embolism secondary to COVID-19 Eliquis -Essential hypertension Lopressor 50 mg twice a day, Cozaar 50 mg daily -Diabetes mellitus type 2, on oral hypoglycemic, uncontrolled with hyperglycemia Glucophage thousand milligrams twice a day. Follow Accu-Chek. Precose. Levemir 20 units daily at bedtime -Chronic insomnia for medical conditions Elavil 50 mg daily at bedtime -Hyperlipidemia TriCor 48 mg daily -Obstructive sleep apnea On CPAP at home -Diabetic peripheral neuropathy Lyrica 200 mg twice daily -Full code Drips : fentanyl , propofol Nimbex. Ventilator. Tube feeding held . For tracheostomy and PEG tube placement today. Prognosis remains guarded. Continue supportive care.
--- NOTE | 2021-11-10 13:57 | P.OP ---
Date of Procedure: 11/10/21 Preoperative Diagnosis: Respiratory failure Malnutrition Postoperative Diagnosis: Malnutrition Respiratory failure Procedure(s) Performed: Tracheostomy and PEG tube placement Anesthesia: GUILHERME Surgeon: Diego Love Estimated Blood Loss (ml): 5 Pathology: none sent Condition: stable Disposition: PACU Description of Procedure: The patient's placed on the bed in the supine position. The patient received general anesthesia. The neck was prepped and draped in usual sterile fashion. A standard transverse skin incision was made approximately 2 cm above the sternal notch. Using electrocautery the subcutaneous tissues were divided. The platysma was divided. A Wheatlander retractor was placed in the wound. Next the strap muscles were divided in the midline. Another weatlander retractor was placed the wound. The pretracheal fat was then divided with left cautery. The trachea was exposed. At this point the MILL WASHER advance the and the tracheal tube into the right mainstem bronchus. The balloon was inflated. A tracheotomy was then performed between the second and third tracheal rings. The perivascular tissues a gracilis the trachea. The endotracheal tube was brought back under direct vision. And then the #8 Portex tracheostomy tube was placed into the trachea. End-tidal CO2 was confirmed. The patient had been connected to the ventilator. The patient was ventilated satisfactory. The skin incision site was then closed with 3-0 nylon after the retractors were withdrawn. An umbilical tie was used to secure the tracheostomy tube. Next the gastroscope placed oropharynx passed in the esophagus and stomach. There is no evidence of any outlet obstruction. Stomach was insufflated with air. The light reflux seen the anterior abdominal wall. The abdomen was prepped and draped usual fashion. The skin was incised. And the needles placed and stomach under direct visualization. The needle was snared. And the wires placed through the needle and the wire was snared and brought the oropharynx. The PEG tube was placed over top the wire brought down to the stomach. The PEG tube was secured. At the 3 cm young. The one-piece bolster was used. Patient tolerated procedure well.
[2021-11-10] MEDS: ZINC SULFATE 220 MG CAP PO SCH (15:59)
[2021-11-10] MEDS: CHOLECALCIFEROL 25 MCG (1000 IU) TABLET PO SCH (15:59)
[2021-11-10] MEDS: ASCORBIC ACID 500 MG TAB PO SCH (15:59)
[2021-11-10 19:00] LABS: Glucose,Whole Blood 125 mg/dL (75-99)
[2021-11-10] MEDS: INSULIN DETEMIR (LEVEMIR) 100 UNIT/ML SYR SQ SCH (21:06)
[2021-11-10 23:44] LABS: Glucose,Whole Blood 100 mg/dL (75-99)
[2021-11-11] MEDS: fentaNYL (PF) 2,500 MCG in SODIUM CHLORIDE 0.9% 200 ML IV SCH ×4 (02:55→21:50)
[2021-11-11 04:11] LABS: Basophils # (A) 0.1 k/uL (0-0.2); Basophils % (A) 1 %; Eosinophils # (A) 0.3 k/uL (0-0.7); Eosinophils % (A) 4 %; HCT 32.4 % (39.0-53.0); HGB 10.6 gm/dL (13.0-17.5); Hypochromasia Slight; Lymphocytes # (A) 1.1 k/uL (1.0-4.8); Lymphocytes % (A) 15 %; MCH 32.2 pg (25.0-35.0); MCHC 32.6 g/dL (31.0-37.0); MCV 98.8 fL (80.0-100.0); Mean Platelet Volume 8.4; Monocytes # (A) 0.7 k/uL (0-1.0); Monocytes % (A) 9 %; Neutrophils # (A) 5.4 k/uL (1.3-7.7); Neutrophils % (A) 70 %; Platelet Count 218 k/uL (150-450); RBC 3.28 m/uL (4.30-5.90); RDW 14.3 % (11.5-15.5); WBC 7.7 k/uL (3.8-10.6)
[2021-11-11] MEDS: ARTIFICIAL TEARS-HYPROMELLOSE DROPS 15 ML BTL BOTH EYES SCH ×6 (04:35→23:35)
[2021-11-11 04:36] LABS: ALT 55 U/L (4-49); AST 30 U/L (17-59); African American GFR (CKD) >90 (>60 ml/min/1.73 sqM); Albumin 2.5 g/dL (3.5-5.0); Alkaline Phosphatase 85 U/L (38-126); Anion Gap 2 mmol/L; Blood Urea Nitrogen 16 mg/dL (9-20); C Reactive Protein 7.6 mg/dL (<1.0); Calcium 8.1 mg/dL (8.4-10.2); Carbon Dioxide 32 mmol/L (22-30); Chloride 103 mmol/L (98-107); Glucose 106 mg/dL (74-99); LDH 504 U/L (313-618); Non-African American GFR(CKD) >90 (>60 ml/min/1.73 sqM); Sodium 137 mmol/L (137-145); Total Bilirubin 0.8 mg/dL (0.2-1.3); Total Protein 5.4 g/dL (6.3-8.2)
[2021-11-11 04:55] LABS: ABG Base Excess 7.8 mmol/L; ABG HCO3 33 mmol/L (21-25); ABG Oxygen Saturation 97.1 % (94-97); ABG PCO2 55 mmHg (35-45); ABG PH 7.39 (7.35-7.45); ABG PO2 93 mmHg (83-108); ABG TCO2 35 mmol/L (19-24)
[2021-11-11 04:59] LABS: Allen Test Performed? no
[2021-11-11 05:28] LABS: Glucose,Whole Blood 79 mg/dL (75-99)
[2021-11-11] MEDS: INSULIN ASPART (NovoLOG) 100 UNIT/ML VIAL SQ SCH ×4 (05:33→23:42)
--- NOTE | 2021-11-11 08:16 | XR ---
EXAMINATION TYPE: XR chest 1V portable DATE OF EXAM: 11/11/2021 COMPARISON: Chest x-ray 11/10/2021 HISTORY: Covid, tracheostomy tube placement TECHNIQUE: Single frontal view of the chest is obtained. FINDINGS: This been interval removal of endotracheal tube and NG tube, placement of tracheostomy tub e which is overlying the tracheal air column. Left subclavian central venous catheter shows the dista l tip over the superior vena cava. Surgical clips are present over the right neck. There is no eviden t pneumothorax or pleural effusion. Bilateral airspace disease shows a similar appearance. Cardiac me diastinal silhouette not significantly changed. There are overlying artifacts. IMPRESSION: Findings similar to prior exam, consistent with patient's history of Covid pneumonia, di fferential includes ARDS, pulmonary edema
--- NOTE | 2021-11-11 08:33 | P.PN ---
Subjective Progress Note Date: 11/11/21 61-year-old male patient with past medical history of diabetes mellitus type 2 with diabetic neuropathy, hypertension, hyperlipidemia, previous history of CVA, rheumatoid arthritis, obstructive sleep apnea S/P UPPP, history of right eye melanoma with previous surgeries, BPH with previous TURP, chronic lower extremity edema, cellulitis, gout, presented to the emergency department on 10/23/2021 at 240 3 in the morning with complaints of severe shortness of breath, cough, congestion. Patient states he has had symptoms since October 09, initially was tested via rapid COVID-19 PCR test which was negative however the send out PCR test came back positive. Patient was transferred to the intensive care on 10/29/2022, and was intubated in next day on 10/30/2022. On today's evaluation of 11/09/2021, the patient is being seen for a follow-up. He currently remains intubated, sedated and paralyzed, he is currently on assist control mode of ventilation with a rate of 32, tidal arm is 450, FiO2 of 55% and PEEP of 16. This morning's blood gas has been reviewed showing pO2 of 75, pCO2 of 44, and pH of 7.52. The patient's serum bicarb is currently at 35. The patient has developed some metabolic alkalosis as the patient is being diuresis with IV Lasix. The chest x-ray from today is showing adequate positioning of the orotracheal tube. The patient continues to have diffuse bilateral pulmonary infiltrates. There is loss in the left hemidiaphragm which is obviously silhouetted probably related to a left lower lobe pulmonary infiltration. Right lung infiltration seems to have improved compared to yesterday. Patient is currently on 0.9 at 20 ML per hour, fentanyl infusion at 2 mics per kilo per hr , diprivan at 60 mics per kilo per minute, Nimbex at 2 mics per kilo per minute He is tolerating his tube feedings, he is on vital high-protein at 23 with a goal of 23 and standard water flushes. Hemodynamically patient has been stable, he remains in sinus mechanism, not requiring any vasopressor support, he remains on antibiotics in the form of Zosyn for positive blood cultures, his last set of blood cultures from 11/06/2021 showed 2 coagulase-negative staph organisms, blood culture from the same day showed no growth, his sputum culture showed few PMNs, moderate gram-positive cocci, presumed staph. The Procal was 0.19, highest 0.31. Patient has been afebrile, hemodynamically he has been stable. Patient has received intermittent doses of diuretics. He currently remains on Decadron 6 mg daily, she is on Eliquis 5 mg twice daily for evidence of PE that was diagnosed during this admission. 2021, the patient is scheduled to undergo a tracheostomy tube and affect tube insertion by general surgery. This morning, the patient remains sedated and paralyzed. He remains on propofol which is currently running at 60 mg/kg per minute and the patient is also on fentanyl running at the rate of 2 g 60 mg an hour. and the patient is also Nimbex at 2 mcg/kg per minute. The patient remains on a mechanical ventilator. The patient remains on a volume cycle mode of mechanical ventilation with a tidal volume of 450 and this was dropped down to 400 yesterday with a respiratory rate of 28 and FiO2 is currently at 50% with a PEEP of 15. The patient's peak airway pressures around 40. Sodium of pressure has been around 38. Chest x-ray is unchanged and shows diffuse bi lateral pulmonary infiltrates. ET tube needs to be pushed him by another 1 cm as the patient's ET tube is sitting high up in the trachea. OG tube is in place. The patient also has a PICC line in the left upper extremity. The blood gases from today shows a pH of 7.42 with a pCO2 of 50 and a pO2 of 76. No significant orotracheal secretions. Pulse ox on a monitored in order of 97%. In terms of his COVID 19 treatment, the patient has been maintained on Decadron 6 mg IV every 24 hours. He did have abnormal blood cultures. Coagulase negative staph aureus and the blood on 2 separate blood cultures and the most recent sputum analysis was done on 11/06/2021 showed [place] and MSSA. Based on that, the patient has been covered with antibiotics and the patient is currently on Zosyn and vancomycin. The patient is also receiving Lasix 40 mg IV every 24 hours. Overall fluid balance on this patient over the past 24 hours has been +3 L. Note that the patient is also hypertensive on today's evaluation. He is on Lopressor for that. Side effects were easily used if needed for ongoing hype rtension. His most recent pro-calcitonin level was 0.19. The highest LEVEL WAS 0.31. HE REMAINS ON ANTICOAGULATION WITH ELIQUIS 5 MG BY MOUTH TWICE A DAY REGARDING PREVIOUS HISTORY OF PULMONARY EMBOLISM THAT WAS URGENTLY DIAGNOSIS SOME OF HIS ADMISSION. HE REMAINS ON LEVEMIR INSULIN 20 UNITS FOR BLOOD SUGAR CONTROL ALONG WITH ASCITES Coverage. Tube Feeds Are Currently on Hold Pending PEG and Trach Insertion. Earlier, the Patient Was Receiving Enteral Feeding and This Was in the Form of Vital High-Protein. On 2021, the patient is post tracheostomy tube insertion and the PEG tube in [facility] for prolonged mechanical ventilation and respiratory failure due to COVID 19 related pneumonia. This morning, the patient is comfortable and the patient is on propofol running at 60 mcg/kg per minute and the patient is also on fentanyl running at 3 mcg/kg/h and the patient is also paralyzed on Nimbex at 2 mcg/kg per minute. The patient remains on a mechanical ventilator. On today's evaluation, he is on a tidal volume of 400 with a rate of 28 and FiO2 is currently at 50% and a PEEP is currently at 16. The peak airway pressure is 48 on the mechanical ventilator. The patient has a Bivona tracheostomy tube in place. The chest x-ray from today shows adequate positioning of the trach eostomy tube. There is no evidence of air leak around the stoma. No evidence of any pneumothorax. No evidence of any pneumomediastinum or subcutaneous emphysema. Blood gases from today shows a pH of 7.39 with a pCO2 of 55 and pO2 of 93 and this was done and the above-mentioned ventilator setting. In terms of inflammatory markers, d-dimer today's at 7.84. The LDH level is stable at 504 and a CRP level is at 7.6. The patient remains on Decadron 6 mg IV every 24 hours. The patient is also on anticoagulation and is currently receiving Eliquis. I'm going to resume Eliquis treatment following his procedures knowing that the patient had pulmonary embolism at a time of his admission. He remains on empiric antibiotic coverage with IV Zosyn. This is covering MSSA in his sputum. The blood culture on 2 separate occasions from 11/06/2021 came back positive for coagulase-negative staph. His pro-calcitonin level is low at 0.14 and the white cell count currently is at 7.7 and the patient is currently on no pressors. The renal function is stable with a BUN of 16 and a creatinine of 0.5 and a sodium level is at 137. The patient is receiving enteral feeding for nutritional support and currently the feeding will be restarted after insertion of a PEG tube. He was receiving vital high protein. Has been receiving also Lasix dose is 40 mg IV every 24 hours. Overall fluid balance has been positive on this patient in order of 3 L over the past 24 hours. Objective - Vital Signs Vital signs: Vital Signs Temp 98.2 F 11/11/21 04:00 Pulse 56 L 11/11/21 07:00 Resp 28 H 11/11/21 07:00 BP 120/70 11/11/21 07:00 Pulse Ox 99 11/11/21 07:00 Intake & Output 11/10/21 11/11/21 11/11/21 18:59 06:59 18:59 Intake Total 5220.581 5291.217 46 Output Total 1780 525 70 Balance -567.981 555.217 -24 Weight 129 kg Intake: IV 476 376 46 0.9 NS KVO 240 240 40 Piperacillin-Tazobactam 3 200 100 .375 gm In Sodium Chloride 0.9% 100 ml @ 25 mls/hr IVPB Q8HR [facility] Rx# :[id number] Pressure bag 36 36 6 Intake, IV Titration 676.019 704.217 Amount Cisatracurium 200 mg In 179.28 Sodium Chloride 0.9% 180 ml @ 1.5 MCG/KG/MIN 10.8 mls/hr IV .[id number] [facility] Rx #:[id number] Clevidipine Butyrate 25 27.800 mg In Empty Bag 1 bag @ 1 MG/HR 2 mls/hr IV .Q24H [facility] Rx#:[id number] fentaNYL (PF) 2,500 mcg 206.291 218.021 In Sodium Chloride 0.9% 200 ml @ 0.5 MCG/KG/HR 4. 082 mls/hr IV .Q24H [facility] Rx#:[id number] propofoL 1,000 mg In 262.648 486.196 Empty Bag 1 bag @ Titrate IV .Q0M [facility] Rx#: [id number] Tube Feeding 0 Other 60 Output: Urine 1780 525 70 Other: Voiding Method Indwelling Catheter Indwelling Catheter ABP, PAP, CO, CI - Last Documented Arterial Blood Pressure 108/59 - Exam GENERAL EXAM: Alert, restless 61-year-old male patient, the patient remains intubated on a mechanical ventilator and the patient is sedated and paralyzed for now. HEAD: Normocephalic. EYES: Normal reaction of pupils, equal size. NOSE: Clear with pink turbinates. THROAT: No erythema or exudates. He has a Bivona tracheostomy tube in place. Exit site is clean. No evidence of any air leak. No evidence of any bleeding around the tracheostomy stoma. NECK: No masses, no JVD. CHEST: No chest wall deformity. LUNGS: Equal air entry with coarse crackles in the posterior bases. CVS: S1 and S2 normal with no audible murmur, regular rhythm. ABDOMEN: No hepatosplenomegaly, normal bowel sounds, no guarding or rigidity. The patient has also had a PEG tube in place which is currently intact. No evidence of any bleeding around the PEG tube. SPINE: No scoliosis or deformity SKIN: No rashes CENTRAL NERVOUS SYSTEM: No focal deficits, tone is normal in all 4 extremities. EXTREMITIES: There is peripheral edema. No clubbing, no cyanosis. Peripheral pulses are intact. - Labs CBC & Chem 7: 11/11/21 04:00 11/11/21 04:00 Labs: Abnormal Lab Results - Last 24 Hours (Table) 11/10/21 11/10/21 11/10/21 Range/Units 11:34 18:59 23:43 RBC (4.30-5.90) m/uL Hgb (13.0-17.5) gm/dL Hct (39.0-53.0) % D-Dimer (<0.60) mg/L FEU ABG pCO2 (35-45) mmHg ABG HCO3 (21-25) mmol/L ABG Total CO2 (19-24) mmol/L ABG O2 Saturation (94-97) % Carbon Dioxide (22-30) mmol/L Creatinine (0.66-1.25) mg/dL Glucose (74-99) mg/dL POC Glucose (mg/dL) 126 H 125 H 100 H (75-99) mg/dL Calcium (8.4-10.2) mg/dL ALT (4-49) U/L C-Reactive Protein (<1.0) mg/dL Total Protein (6.3-8.2) g/dL Albumin (3.5-5.0) g/dL 11/11/21 11/11/21 11/11/21 Range/Units 04:00 04:00 04:00 RBC 3.28 L (4.30-5.90) m/uL Hgb 10.6 L (13.0-17.5) gm/dL Hct 32.4 L (39.0-53.0) % D-Dimer 7.84 H (<0.60) mg/L FEU ABG pCO2 (35-45) mmHg ABG HCO3 (21-25) mmol/L ABG Total CO2 (19-24) mmol/L ABG O2 Saturation (94-97) % Carbon Dioxide 32 H (22-30) mmol/L Creatinine 0.52 L (0.66-1.25) mg/dL Glucose 106 H (74-99) mg/dL POC Glucose (mg/dL) (75-99) mg/dL Calcium 8.1 L (8.4-10.2) mg/dL ALT 55 H (4-49) U/L C-Reactive Protein 7.6 H (<1.0) mg/dL Total Protein 5.4 L (6.3-8.2) g/dL Albumin 2.5 L (3.5-5.0) g/dL 11/11/21 Range/Units 04:50 RBC (4.30-5.90) m/uL Hgb (13.0-17.5) gm/dL Hct (39.0-53.0) % D-Dimer (<0.60) mg/L FEU ABG pCO2 55 H (35-45) mmHg ABG HCO3 33 H (21-25) mmol/L ABG Total CO2 35 H (19-24) mmol/L ABG O2 Saturation 97.1 H (94-97) % Carbon Dioxide (22-30) mmol/L Creatinine (0.66-1.25) mg/dL Glucose (74-99) mg/dL POC Glucose (mg/dL) (75-99) mg/dL Calcium (8.4-10.2) mg/dL ALT (4-49) U/L C-Reactive Protein (<1.0) mg/dL Total Protein (6.3-8.2) g/dL Albumin (3.5-5.0) g/dL Assessment and Plan Plan: 1 Acute hypoxic respiratory failure related to acute COVID-19 related pneumonia, patient presented to the emergency department on 10/23/2021 with 2 week history of symptoms, patient is outside the window for Remdesivir, he is a non-vaccinated adult. The patient was transferred to the intensive care unit , the patient was started on BiPAP and ultimately failed BiPAP and the patient was intubated and placed on a mechanical ventilator. Currently is on a pressure control mode of mechanical ventilation. He has adequate oxygenation and ventilation for now. He is sedated and paralyzed. He continues to be on a combination of Decadron and Baricitinib. The Baricitinib was subsequently discontinued and the patient was considered to underlying infection. Pro- calcitonin level was elevated. Blood culture came back positive for coagulase- negative staph. Sputum cultures showing presumed staph aureus/ MSSA. The patient is currently on antibiotics and he is receiving a combination of Zosyn and vancomycin. The patient will be taken off the vancomycin. We'll keep Zosyn for now. For now, the patient is post tracheostomy tube insertion. The patient has a Bivona tracheostomy tube in place. Chest x-ray was noted and there is adequate air positioning of the tracheostomy tube. His inflammatory markers are low at this point in time. He remains on Decadron. He remains on IV Zosyn. I reviewed the chest x-ray. I reviewed the blood gases. Ventilator changes will be done and the patient will be given a paralytic holiday. Anticoagulation will be also resume. 2 Bilateral pulmonary emboli on computed tomography scan 10/26/2021. Continued on Eliquis. 3 Diabetes mellitus type 2 with diabetic neuropathy currently on Levemir insulin for blood sugar control 4 Hypertension 5 Hyperlipidemia 6 Obstructive sleep apnea with previous history of UPPP 7 History of right eye melanoma with multiple surgeries 8 Previous history of CVA 9 Rheumatoid arthritis 10 History of gout 11 Previous history of MRSA infection in the wound on his back 12 Mild lactic acidosis, improved with IV hydration 13 Elevated inflammatory markers related to acute COVID-19 pneumonia 14 BPH with previous history of TURP 15 pneumomediastinum and subcutaneous emphysema, complications of COVID 19 related pneumonia, stable Plan: Continue ventilator support with pressure control mode of mechanical ventilation. Change the PEEP down to 14, respiratory rate down to 26. Keep the FiO2 at 50% and a tidal volume of 400 at this point in time. PEG and tracheostomy tube completed Drop TV to 400 and Fio2 to 50 Keep Zosyn Continue Decadron Rest[place] anticoagulation with Eliquis , Keep the patient sedated paralytic holiday today Chest x-ray was reviewed , stable findings Enteral feeding for nutritional support will be restarted today Daily Lasix 40 mg IV Levemir 20 U and a SS coverage Condition is critical . Critically care evaluation that was on a more than 30 minutes. Time with Patient: Greater than 30
[2021-11-11] MEDS: PIPERACILLIN-TAZOBACTAM 3.375 GM in SODIUM CHLORIDE 0.9% 100 ML IVPB SCH ×2 (08:49→16:48)
[2021-11-11] MEDS: ASCORBIC ACID 500 MG TAB PO SCH (09:19)
[2021-11-11] MEDS: CHLORHEXIDINE GLUCONATE 15 ML CUP MUCOUS MEM SCH ×2 (09:19→21:14)
[2021-11-11] MEDS: ZINC SULFATE 220 MG CAP PO SCH (09:20)
[2021-11-11] MEDS: CHOLECALCIFEROL 25 MCG (1000 IU) TABLET PO SCH (09:20)
[2021-11-11] MEDS: APIXABAN 5 MG TAB PO SCH ×2 (09:20→21:14)
[2021-11-11] MEDS: METOPROLOL TARTRATE 25 MG TAB PO SCH ×2 (09:20→22:00)
[2021-11-11] MEDS: FUROSEMIDE 10 MG/ML 4 ML VIAL IV SCH (09:21)
[2021-11-11] MEDS: DEXAMETHASONE SOD PHOSPHATE 10 MG/ML 1 ML VIAL IVP SCH (09:21)
[2021-11-11] MEDS: PREGABALIN 100 MG CAP PO SCH ×2 (09:45→21:14)
[2021-11-11] MEDS: DOCUSATE ORAL SOLN 100 MG/10 ML CUP PO SCH ×2 (09:52→21:14)
[2021-11-11] MEDS: SERTRALINE 50 MG TAB PO SCH (09:53)
--- NOTE | 2021-11-11 11:13 | P.PN ---
Subjective Progress Note Date: 11/11/21 CHIEF COMPLAINT: COVID-19 pneumonia HISTORY OF PRESENT ILLNESS: Patient is in the ICU intubated and sedated. He is status post tracheostomy and PEG tube placement yesterday. Tube feeding scheduled to be started later this afternoon. Afebrile. WBC is 7.7 patient on Eliquis for pulmonary emboli's PHYSICAL EXAM: VITAL SIGNS: Reviewed. GENERAL: Well-developed in no acute distress. HEENT: Head is atraumatic, normocephalic. Tracheostomy site mild dried blood noted ABDOMEN: Soft. Nondistended. Nontender. PEG tube site clean dry and intact NEUROLOGIC: Intubated and sedated ASSESSMENT: 1. Acute hypoxic respiratory failure secondary to COVID-19 pneumonia requiring mechanical ventilation 2. Severe protein calorie malnutrition 3. Bilateral pulmonary emboli PLAN: -Consult dietitian to initiate tube feeds this afternoon -Continue supportive care and continue ICU management Physician Instructional Support Specialist note has been reviewed by physician. Signing provider agrees with the documented findings, assessment, and plan of care. Objective - Vital Signs Vital signs: Vital Signs Temp 97.8 F 11/11/21 08:00 Pulse 54 L 11/11/21 11:00 Resp 26 H 11/11/21 11:00 BP 98/65 11/11/21 11:00 Pulse Ox 97 11/11/21 11:00 Intake & Output 11/10/21 11/11/21 11/11/21 18:59 06:59 18:59 Intake Total 5418.222 8171.217 751.795 Output Total 1780 525 560 Balance -567.981 555.217 191.795 Weight 129 kg Intake: IV 476 376 115 0.9 NS KVO 240 240 100 Piperacillin-Tazobactam 3 200 100 .375 gm In Sodium Chloride 0.9% 100 ml @ 25 mls/hr IVPB Q8HR [facility] Rx# :[id number] Pressure bag 36 36 15 Intake, IV Titration 676.019 704.217 516.795 Amount Cisatracurium 200 mg In 179.28 181.68 Sodium Chloride 0.9% 180 ml @ 1.5 MCG/KG/MIN 10.8 mls/hr IV .[id number] [facility] Rx #:[id number] Clevidipine Butyrate 25 27.800 mg In Empty Bag 1 bag @ 1 MG/HR 2 mls/hr IV .Q24H [facility] Rx#:[id number] fentaNYL (PF) 2,500 mcg 206.291 218.021 145.331 In Sodium Chloride 0.9% 200 ml @ 0.5 MCG/KG/HR 4. 082 mls/hr IV .Q24H [facility] Rx#:[id number] propofoL 1,000 mg In 262.648 486.196 189.784 Empty Bag 1 bag @ Titrate IV .Q0M [facility] Rx#: [id number] Tube Feeding 0 Other 60 120 Output: Urine 1780 525 560 Other: Voiding Method Indwelling Catheter Indwelling Catheter Indwelling Catheter ABP, PAP, CO, CI - Last Documented Arterial Blood Pressure 139/61 - Labs CBC & Chem 7: 11/11/21 04:00 11/11/21 04:00 Labs: Abnormal Lab Results - Last 24 Hours (Table) 11/10/21 11/10/21 11/10/21 Range/Units 11:34 18:59 23:43 RBC (4.30-5.90) m/uL Hgb (13.0-17.5) gm/dL Hct (39.0-53.0) % D-Dimer (<0.60) mg/L FEU ABG pCO2 (35-45) mmHg ABG HCO3 (21-25) mmol/L ABG Total CO2 (19-24) mmol/L ABG O2 Saturation (94-97) % Carbon Dioxide (22-30) mmol/L Creatinine (0.66-1.25) mg/dL Glucose (74-99) mg/dL POC Glucose (mg/dL) 126 H 125 H 100 H (75-99) mg/dL Calcium (8.4-10.2) mg/dL ALT (4-49) U/L C-Reactive Protein (<1.0) mg/dL Total Protein (6.3-8.2) g/dL Albumin (3.5-5.0) g/dL 11/11/21 11/11/21 11/11/21 Range/Units 04:00 04:00 04:00 RBC 3.28 L (4.30-5.90) m/uL Hgb 10.6 L (13.0-17.5) gm/dL Hct 32.4 L (39.0-53.0) % D-Dimer 7.84 H (<0.60) mg/L FEU ABG pCO2 (35-45) mmHg ABG HCO3 (21-25) mmol/L ABG Total CO2 (19-24) mmol/L ABG O2 Saturation (94-97) % Carbon Dioxide 32 H (22-30) mmol/L Creatinine 0.52 L (0.66-1.25) mg/dL Glucose 106 H (74-99) mg/dL POC Glucose (mg/dL) (75-99) mg/dL Calcium 8.1 L (8.4-10.2) mg/dL ALT 55 H (4-49) U/L C-Reactive Protein 7.6 H (<1.0) mg/dL Total Protein 5.4 L (6.3-8.2) g/dL Albumin 2.5 L (3.5-5.0) g/dL 11/11/21 Range/Units 04:50 RBC (4.30-5.90) m/uL Hgb (13.0-17.5) gm/dL Hct (39.0-53.0) % D-Dimer (<0.60) mg/L FEU ABG pCO2 55 H (35-45) mmHg ABG HCO3 33 H (21-25) mmol/L ABG Total CO2 35 H (19-24) mmol/L ABG O2 Saturation 97.1 H (94-97) % Carbon Dioxide (22-30) mmol/L Creatinine (0.66-1.25) mg/dL Glucose (74-99) mg/dL POC Glucose (mg/dL) (75-99) mg/dL Calcium (8.4-10.2) mg/dL ALT (4-49) U/L C-Reactive Protein (<1.0) mg/dL Total Protein (6.3-8.2) g/dL Albumin (3.5-5.0) g/dL
[2021-11-11 11:56] LABS: Glucose,Whole Blood 120 mg/dL (75-99)
--- NOTE | 2021-11-11 15:53 | P.PN ---
Progress Note - Text Progress Note Date: 11/11/21 Chief Complaint: Short of breath This is a pleasant 61-year-old patient, chronic stable medical conditions include diabetes, hypertension, hyperlipidemia, osteoarthritis, peripheral neuropathy, chronic gout. Patient presents with increasing shortness of breath. Cough. Clear sputum. Fever and chills. Tired rundown decrease appetite and diarrhea about 2 times a day. Patient tested positive for COVID-19 on October 09. His initial rapid COVID-19 was negative. In the send out came back positive. Patient did not take the vaccine against COVID-19. He is on 8 L of oxygen this morning. He is outside the window for Remdesivir. Admitted with COVID 19 pneumonitis, acute hypoxic respiratory failure. Started on Decadron. IV fluids. October 24: Feeling a bit better. Short of breath. 92% on 11 L. Did eat some. Sitting at the edge of the bed. A bit tired October 25: Short of breath. Cough. Oral intake fair. On 11 L of nasal cannula. Did sit up in a chair. October 26: Short of breath. Oral intake fair. Cough. 11 L nasal cannula. Dexamethasone. Chest CTA showing bilateral pulmonary embolism. October 27: Short of breath. Eating fair. 15 L nasal cannula. Tired. October 28: Remains on 15 L of nasal cannula. Eating about 50%. Short of breath. Tired. Trying to change his positions in bed. Including prone. October 29: Patient more short of breath and tired. Pulse oxing 87% on 15 L. Laying in bed. Eating around 50%. Late in the afternoon seen by pulmonary and patient be moved to ICU. October 30: Patient moved to ICU yesterday. Because of more respiratory compromise. Intubated earlier today. Drips include Diprivan, fentanyl, Nimbex, Levophed. Sinus rhythm. FiO2 19 a PEEP of 18. October 31: ICU: Ventilator/FiO2 19 a PEEP of 18. Drips include MX, propofol, fentanyl. Epinephrine. November 01: ICU: On the ventilator FiO2 55 PEEP of 16. Drips included propofol, Nimbex, fentanyl. 2 feeding at 29 mL an hour. November 02: ICU. Ventilator 45/16. Drips include fentanyl, propofol, Nimbex. 2 feeding at 20 mL an hour. November 03: ICU. Ventilator 45/12. Drips include fentanyl, propofol. 2 feeding at 29 mL an hour. November 04: ICU. Overnight patient went into respiratory distress. X-ray was looking worse. Patient put back on 100% FiO2 and a PEEP of 16. Patient is put back on drips of currently include fentanyl, propofol, Nimbex. 2 feeding. Sedated November 05: ICU: Current drips include fentanyl, propofol, Nimbex. Ventilator: 75/16. 2 feeding at 30 mL an hour. Sinus rhythm. Blood cultures coming back coagulase-negative/staph epidermidis likely contaminant November 06: ICU: Earlier today attempt was made to cut back on the Nimbex. Patient became restless. Had to be put back on the same. Current drips include fentanyl, Nimbex, propofol. FiO2 55 and a PEEP of 16. Telemetry shows sinus rhythm. 2 feeding at 30 mL an hour. November 07: ICU: at the bedside. Ventilator: 55/16. Telemetry: Sinus rhythm. Drips include fentanyl, propofol, Nimbex. 2 feeding at 27 mL an hour. November 08: ICU: Ventilator: 55/16. Drips included propofol, fentanyl, Nimbex. [address] Sinus rhythm. November 09: ICU. Ventilator 55/16. Drips included propofol, fentanyl, Nimbex. Nimbex is being titrated down. 2 feeding. Sinus rhythm. Patient's daughter the bedside. Updated. November 10: ICU. Ventilator 55/60. Drips included propofol, fentanyl, Nimbex. 2 feeding has been held because of pending tracheostomy and PEG tube. Sinus rhythm. November 11: ICU: Ventilator 40/40. Drips include propofol and fentanyl. Often Nimbex. Patient received a tracheostomy and a PEG tube yesterday. 2 feeding will be started this afternoon. Sinus rhythm. Sedated. Off Nimbex Review of systems: Intubated Active Medications Acetaminophen (Acetaminophen Tab 325 Mg Tab) 650 mg PO Q6HR PRN PRN Reason: Mild Pain or Fever > 100.5 Last Admin: 10/29/21 15:46 Dose: 650 mg Documented by: Albuterol Sulfate (Albuterol Hfa Inhaler) 2 puff INHALATION RT-QID PRN PRN Reason: Shortness Of Breath Last Admin: 11/10/21 15:17 Dose: 2 puff Documented by: Apixaban (Apixaban 5 Mg Tab) 5 mg PO BID [facility]; Protocol Last Admin: 11/11/21 09:20 Dose: 5 mg Documented by: Artificial Tears (Artificial Tears-Hypromellose Drops 15 Ml Btl) 2 drops BOTH EYES Q4HR [facility] Last Admin: 11/11/21 11:55 Dose: 2 drops Documented by: Ascorbic Acid (Ascorbic Acid 500 Mg Tab) 1,000 mg PO DAILY [facility] Last Admin: 11/11/21 09:19 Dose: 1,000 mg Documented by: Chlorhexidine Gluconate (Chlorhexidine Gluconate 15 Ml Cup) 15 ml MUCOUS MEM BID [facility] Last Admin: 11/11/21 09:19 Dose: 15 ml Documented by: Cholecalciferol (Cholecalciferol 25 Mcg (1000 Iu) Tablet) 25 mcg PO DAILY [facility] Last Admin: 11/11/21 09:20 Dose: 25 mcg Documented by: Dexamethasone Sodium Phosphate (Dexamethasone Sod Phosphate 10 Mg/Ml 1 Ml Vial) 6 mg IVP DAILY [facility] Last Admin: 11/11/21 09:21 Dose: 6 mg Documented by: Docusate Sodium (Docusate Oral Soln 100 Mg/10 Ml Cup) 100 mg PO BID [facility] Last Admin: 11/11/21 09:52 Dose: 100 mg Documented by: Furosemide (Furosemide 10 Mg/Ml 4 Ml Vial) 40 mg IV DAILY [facility] Last Admin: 11/11/21 09:21 Dose: 40 mg Documented by: Propofol 1,000 mg/ IV Solution 100 mls @ 0 mls/hr IV .Q0M [facility]; Protocol Last Admin: 11/11/21 15:06 Dose: 60 mcg/kg/min, 46.44 mls/hr Documented by: Piperacillin Sod/Tazobactam (Sod 3.375 gm/ Sodium Chloride) 100 mls @ 25 mls/hr IVPB Q8HR [facility] Last Admin: 11/11/21 08:49 Dose: 25 mls/hr Documented by: Cisatracurium Besylate 200 mg/ (Sodium Chloride) 200 mls @ 10.8 mls/hr IV .[id number] [facility]; Protocol Last Titration: 11/11/21 08:32 Dose: 0 mcg/kg/min, 0 mls/hr Documented by: Fentanyl Citrate 2,500 mcg/ (Sodium Chloride) 250 mls @ 4.082 mls/hr IV .Q24H [facility]; Protocol Last Admin: 11/11/21 15:40 Dose: 3 mcg/kg/hr, 24.494 mls/hr Documented by: Clevidipine 25 mg/ IV Solution 50 mls @ 2 mls/hr IV .Q24H [facility]; Protocol Last Admin: 11/10/21 20:49 Dose: Not Given Documented by: Insulin Aspart (Insulin Aspart (Novolog) 100 Unit/Ml Vial) 0 unit SQ Q6HR [facility]; Protocol Last Admin: 11/11/21 11:55 Dose: Not Given Documented by: Insulin Detemir (Insulin Detemir (Levemir) 100 Unit/Ml Syr) 20 unit SQ HS [facility] Last Admin: 11/10/21 21:06 Dose: 20 unit Documented by: Metoprolol Tartrate (Metoprolol Tartrate 25 Mg Tab) 25 mg PO BID [facility] Last Admin: 11/11/21 09:20 Dose: 25 mg Documented by: Miscellaneous Information (Potassium Replacement Protocol 1 Each Misc) 1 each MISCELLANE DAILY PRN; Protocol PRN Reason: Per Protocol Pregabalin (Pregabalin 100 Mg Cap) 200 mg PO BID [facility] Last Admin: 11/11/21 09:45 Dose: 200 mg Documented by: Sertraline HCl (Sertraline 50 Mg Tab) 50 mg PO DAILY [facility] Last Admin: 11/11/21 09:53 Dose: 50 mg Documented by: Zinc Sulfate (Zinc Sulfate 220 Mg Cap) 220 mg PO DAILY [facility] Last Admin: 11/11/21 09:20 Dose: 220 mg Documented by: Social history: Patient is on Social Security. Does not smoke or drink alcohol. Patient's daughters family lives with him. Family history: Father at the age of 40 with heart attack Physical examination: VITAL SIGNS: 98.1, 53, 26, 10 9 x 70, 90% on ventilator GENERAL: Laying in bed, intubated. Tracheostomy and a PEG tube present LUNGS: Respiratory rate increased,. PSYCH: Unable to assess Rest of the exam per nursing and pulmonary INVESTIGATIONS, reviewed in the clinical context: November 11: White count 7.7 hemoglobin 10.6 platelets 218 d-dimer 7.84 potassium 4 BUN 16 creatinine 0.5 to. Chest x-ray film personally reviewed by me: Scattered infiltrates. Tracheostomy tube. Telemetry: Personally reviewed by me sinus rhythm November 10: White count 6.6 1110.1 platelets 239 potassium 3.9 creatinine 0.61. Chest x-ray and telemetry personally reviewed by me. November 09: D-dimer 7.03 pro-calcitonin 0.14 November 08: White count 7.5 hemoglobin 10 point potassium 3.5 creatinine 0.516.Chest x-ray film personally reviewed by me-scattered infiltrates November 07: White count 7.60 globin 10.1 platelets 269 potassium 3.4 creatinine 0.5 to AST 30 ALT 75 November 06: WBC 9.4 hemoglobin 9.8 platelets 250 potassium 3.6 creatinine 0.48 AST 36 ALT 91 November 05: WBC 11 hemoglobin 10.4 platelets 218 potassium 4 creatinine 0.5 to Blood culture positive for Staphylococcus epidermidis/coagulates negative. November 04: WBC 13.1 hemoglobin 11.6 potassium 4.6 creatinine 0.53. Chest x-ray film personally reviewed by me-bilateral infiltrates November 03: White count 11.9 hemoglobin 12 platelets 266 potassium 4.2 creatinine 0.55 AST 63 ALT 64 pro-calcitonin 0.12 November 02: White count 8 hemoglobin 10.5 potassium 4.4. 23 creatinine 0.5 to November 01: White count 11.1 hemoglobin 11.6 platelets 203 d-dimer 10.6 potassium 4.7 creatinine 0.73 October 31: White count 12.1 hemoglobin 12.2 platelets 240 potassium 4.8 creatinine 0.61 October 30: White count 12.9 hemoglobin 13.1 potassium 5.6 creatinine 0.69 October 29: White count 13.1 hemoglobin 13.8 d-dimer 16.2 potassium 4.7 creatinine 0.76 October 28: D-dimer 13.4 to October 26: D-dimer 8.48 CRP 24 Chest CTA [October 26: biLateral pulmonary embolism Doppler ultrasound lower extremity: Negative for DVT October 24: White count 9.7 hemoglobin 15.3 platelets 221 d-dimer 1.93 progression 4.2 creatinine 0.71 CRP 5.5 pro-calcitonin 0.08 White count 9.9 hemoglobin 16 platelets 234 d-dimer 0.98 sodium 141 potassium 3.4 creatinine 0.81 Lactic acid 2.9 LDH 1422 CRP 7.5 EKG tracing personally reviewed by me-normal sinus rhythm. Nonspecific ST segment changes. Chest x-ray film personally reviewed by me-bilateral infiltrates Assessment and plan: -Acute severe COVID 19 pneumonitis in a patient who did not take the COVID-19 vaccine: Slow to respond Dexamethasone, vitamin C, vitamin D, zinc. Patient's outside the window for Remdesivir. -Acute hypoxic respiratory failure from COVID-19: Slow to respond intubated October 30. FiO2 40 and a PEEP of 14 -Bilateral pulmonary embolism secondary to COVID-19 Eliquis -Essential hypertension Lopressor 25 mg twice a day, -Diabetes mellitus type 2, on oral hypoglycemic, Levemir 20 units daily at bedtime. Follow Accu-Cheks -Chronic insomnia for medical conditions Elavil 50 mg daily at bedtime -Hyperlipidemia TriCor 48 mg daily -Obstructive sleep apnea On CPAP at home -Diabetic peripheral neuropathy Lyrica 200 mg twice daily -Full code Drips : fentanyl , propofol . Nimbex discontinued Ventilator. Tube feeding held . Tracheostomy and a PEG tube placed yesterday. Tube feeding will be started today. Prognosis guarded
[2021-11-11 18:09] LABS: Glucose,Whole Blood 127 mg/dL (75-99)
[2021-11-11] MEDS: CLEVIDIPINE BUTYRATE 25 MG in EMPTY BAG 1 BAG IV SCH (19:35)
[2021-11-11] MEDS: ALBUTEROL HFA INHALER INHALATION PRN (20:36)
[2021-11-11] MEDS: INSULIN DETEMIR (LEVEMIR) 100 UNIT/ML SYR SQ SCH (21:14)
[2021-11-11 23:39] LABS: Glucose,Whole Blood 130 mg/dL (75-99)
[2021-11-12] MEDS: PIPERACILLIN-TAZOBACTAM 3.375 GM in SODIUM CHLORIDE 0.9% 100 ML IVPB SCH ×4 (00:31→23:37)
[2021-11-12] MEDS: ARTIFICIAL TEARS-HYPROMELLOSE DROPS 15 ML BTL BOTH EYES SCH ×6 (04:07→23:36)
[2021-11-12 04:25] LABS: Basophils # (A) 0.1 k/uL (0-0.2); Basophils % (A) 1 %; Eosinophils # (A) 0.2 k/uL (0-0.7); Eosinophils % (A) 3 %; HCT 30.8 % (39.0-53.0); HGB 9.9 gm/dL (13.0-17.5); Hypochromasia Slight; Lymphocytes # (A) 1.4 k/uL (1.0-4.8); Lymphocytes % (A) 20 %; MCH 31.7 pg (25.0-35.0); MCHC 31.9 g/dL (31.0-37.0); MCV 99.1 fL (80.0-100.0); Mean Platelet Volume 9.7; Monocytes # (A) 0.6 k/uL (0-1.0); Monocytes % (A) 8 %; Neutrophils # (A) 4.3 k/uL (1.3-7.7); Neutrophils % (A) 65 %; Platelet Count 209 k/uL (150-450); RBC 3.11 m/uL (4.30-5.90); RDW 14.2 % (11.5-15.5); WBC 6.7 k/uL (3.8-10.6)
[2021-11-12 04:36] LABS: ALT 50 U/L (4-49); AST 28 U/L (17-59); African American GFR (CKD) >90 (>60 ml/min/1.73 sqM); Albumin 2.4 g/dL (3.5-5.0); Alkaline Phosphatase 82 U/L (38-126); Anion Gap 1 mmol/L; Blood Urea Nitrogen 15 mg/dL (9-20); Carbon Dioxide 32 mmol/L (22-30); Chloride 104 mmol/L (98-107); Glucose 135 mg/dL (74-99); Non-African American GFR(CKD) >90 (>60 ml/min/1.73 sqM); Potassium 3.7 mmol/L (3.5-5.1); Sodium 137 mmol/L (137-145); Total Bilirubin 0.8 mg/dL (0.2-1.3); Total Protein 5.5 g/dL (6.3-8.2)
[2021-11-12] MEDS ORDERED: POTASSIUM BICARB-CITRIC ACID 25 MEQ TABLET.EFF PO SCH (05:00)
[2021-11-12] MEDS: fentaNYL (PF) 2,500 MCG in SODIUM CHLORIDE 0.9% 200 ML IV SCH ×3 (05:35→20:36)
[2021-11-12] MEDS: INSULIN ASPART (NovoLOG) 100 UNIT/ML VIAL SQ SCH ×5 (05:41→23:15)
[2021-11-12 05:42] LABS: Glucose,Whole Blood 116 mg/dL (75-99)
[2021-11-12 06:10] LABS: ABG Base Excess 8.6 mmol/L; ABG HCO3 34 mmol/L (21-25); ABG Oxygen Saturation 90.3 % (94-97); ABG PCO2 57 mmHg (35-45); ABG PH 7.38 (7.35-7.45); ABG PO2 61 mmHg (83-108); ABG TCO2 35 mmol/L (19-24); Allen Test Performed? Yes
--- NOTE | 2021-11-12 08:01 | P.PN ---
Subjective Progress Note Date: 11/12/21 61-year-old male patient with past medical history of diabetes mellitus type 2 with diabetic neuropathy, hypertension, hyperlipidemia, previous history of CVA, rheumatoid arthritis, obstructive sleep apnea S/P UPPP, history of right eye melanoma with previous surgeries, BPH with previous TURP, chronic lower extremity edema, cellulitis, gout, presented to the emergency department on 10/23/2021 at 240 3 in the morning with complaints of severe shortness of breath, cough, congestion. Patient states he has had symptoms since October 09, initially was tested via rapid COVID-19 PCR test which was negative however the send out PCR test came back positive. Patient was transferred to the intensive care on 10/29/2022, and was intubated in next day on 10/30/2022. On today's evaluation of 11/09/2021, the patient is being seen for a follow-up. He currently remains intubated, sedated and paralyzed, he is currently on assist control mode of ventilation with a rate of 32, tidal arm is 450, FiO2 of 55% and PEEP of 16. This morning's blood gas has been reviewed showing pO2 of 75, pCO2 of 44, and pH of 7.52. The patient's serum bicarb is currently at 35. The patient has developed some metabolic alkalosis as the patient is being diuresis with IV Lasix. The chest x-ray from today is showing adequate positioning of the orotracheal tube. The patient continues to have diffuse bilateral pulmonary infiltrates. There is loss in the left hemidiaphragm which is obviously silhouetted probably related to a left lower lobe pulmonary infiltration. Right lung infiltration seems to have improved compared to yesterday. Patient is currently on 0.9 at 20 ML per hour, fentanyl infusion at 2 mics per kilo per hr , diprivan at 60 mics per kilo per minute, Nimbex at 2 mics per kilo per minute He is tolerating his tube feedings, he is on vital high-protein at 23 with a goal of 23 and standard water flushes. Hemodynamically patient has been stable, he remains in sinus mechanism, not requiring any vasopressor support, he remains on antibiotics in the form of Zosyn for positive blood cultures, his last set of blood cultures from 11/06/2021 showed 2 coagulase-negative staph organisms, blood culture from the same day showed no growth, his sputum culture showed few PMNs, moderate gram-positive cocci, presumed staph. The Procal was 0.19, highest 0.31. Patient has been afebrile, hemodynamically he has been stable. Patient has received intermittent doses of diuretics. He currently remains on Decadron 6 mg daily, she is on Eliquis 5 mg twice daily for evidence of PE that was diagnosed during this admission. 2021, the patient is scheduled to undergo a tracheostomy tube and affect tube insertion by general surgery. This morning, the patient remains sedated and paralyzed. He remains on propofol which is currently running at 60 mg/kg per minute and the patient is also on fentanyl running at the rate of 2 g 60 mg an hour. and the patient is also Nimbex at 2 mcg/kg per minute. The patient remains on a mechanical ventilator. The patient remains on a volume cycle mode of mechanical ventilation with a tidal volume of 450 and this was dropped down to 400 yesterday with a respiratory rate of 28 and FiO2 is currently at 50% with a PEEP of 15. The patient's peak airway pressures around 40. Sodium of pressure has been around 38. Chest x-ray is unchanged and shows diffuse bi lateral pulmonary infiltrates. ET tube needs to be pushed him by another 1 cm as the patient's ET tube is sitting high up in the trachea. OG tube is in place. The patient also has a PICC line in the left upper extremity. The blood gases from today shows a pH of 7.42 with a pCO2 of 50 and a pO2 of 76. No significant orotracheal secretions. Pulse ox on a monitored in order of 97%. In terms of his COVID 19 treatment, the patient has been maintained on Decadron 6 mg IV every 24 hours. He did have abnormal blood cultures. Coagulase negative staph aureus and the blood on 2 separate blood cultures and the most recent sputum analysis was done on 11/06/2021 showed [place] and MSSA. Based on that, the patient has been covered with antibiotics and the patient is currently on Zosyn and vancomycin. The patient is also receiving Lasix 40 mg IV every 24 hours. Overall fluid balance on this patient over the past 24 hours has been +3 L. Note that the patient is also hypertensive on today's evaluation. He is on Lopressor for that. Side effects were easily used if needed for ongoing hype rtension. His most recent pro-calcitonin level was 0.19. The highest LEVEL WAS 0.31. HE REMAINS ON ANTICOAGULATION WITH ELIQUIS 5 MG BY MOUTH TWICE A DAY REGARDING PREVIOUS HISTORY OF PULMONARY EMBOLISM THAT WAS URGENTLY DIAGNOSIS SOME OF HIS ADMISSION. HE REMAINS ON LEVEMIR INSULIN 20 UNITS FOR BLOOD SUGAR CONTROL ALONG WITH ASCITES Coverage. Tube Feeds Are Currently on Hold Pending PEG and Trach Insertion. Earlier, the Patient Was Receiving Enteral Feeding and This Was in the Form of Vital High-Protein. On 2021, the patient is post tracheostomy tube insertion and the PEG tube in [facility] for prolonged mechanical ventilation and respiratory failure due to COVID 19 related pneumonia. This morning, the patient is comfortable and the patient is on propofol running at 60 mcg/kg per minute and the patient is also on fentanyl running at 3 mcg/kg/h and the patient is also paralyzed on Nimbex at 2 mcg/kg per minute. The patient remains on a mechanical ventilator. On today's evaluation, he is on a tidal volume of 400 with a rate of 28 and FiO2 is currently at 50% and a PEEP is currently at 16. The peak airway pressure is 48 on the mechanical ventilator. The patient has a Bivona tracheostomy tube in place. The chest x-ray from today shows adequate positioning of the trach eostomy tube. There is no evidence of air leak around the stoma. No evidence of any pneumothorax. No evidence of any pneumomediastinum or subcutaneous emphysema. Blood gases from today shows a pH of 7.39 with a pCO2 of 55 and pO2 of 93 and this was done and the above-mentioned ventilator setting. In terms of inflammatory markers, d-dimer today's at 7.84. The LDH level is stable at 504 and a CRP level is at 7.6. The patient remains on Decadron 6 mg IV every 24 hours. The patient is also on anticoagulation and is currently receiving Eliquis. I'm going to resume Eliquis treatment following his procedures knowing that the patient had pulmonary embolism at a time of his admission. He remains on empiric antibiotic coverage with IV Zosyn. This is covering MSSA in his sputum. The blood culture on 2 separate occasions from 11/06/2021 came back positive for coagulase-negative staph. His pro-calcitonin level is low at 0.14 and the white cell count currently is at 7.7 and the patient is currently on no pressors. The renal function is stable with a BUN of 16 and a creatinine of 0.5 and a sodium level is at 137. The patient is receiving enteral feeding for nutritional support and currently the feeding will be restarted after insertion of a PEG tube. He was receiving vital high protein. Has been receiving also Lasix dose is 40 mg IV every 24 hours. Overall fluid balance has been positive on this patient in order of 3 L over the past 24 hours. 11/12/2021, the patient underwent a tracheostomy tube insertion and he is postop day #1. The procedure was done on 11/11/2021. The patient has a Bivona tracheostomy tube in place for now and the procedure was done without any c omplication and the patient has no significant leaks around the tube. Following this procedure, the patient was taken off the paralytics and the patient is currently off Nimbex. He is still on propofol which is running at 60 mcg/kg per minute and fentanyl is running at 3 mcg/kg/h. He is very deeply sedated at this point in time. In fact he is not triggering the mechanical ventilator. He is on assist control mode at the rate of 26, tidal volume of 400, FiO2 at 40% with a PEEP of 14. His peak airway pressure was 40 earlier today with a static pressure of 38. Based on that, I dropped the PEEP down to 12 and I dropped a respiratory rate down to 22. The morning blood gases showed a pH of 7.38 with a pCO2 of 57 and pO2 of 61. Pulse ox on the monitor is in order of 95%. Chest x- ray shows no complications from the tracheostomy tube insertion. The patient continues to have diffuse bilateral pulmonary infiltrates. No evidence of any pneumomediastinum. No evidence of any subcutaneous emphysema. There is a tiny right apical pneumothorax on today's chest x-ray which is in the order of 5%. The patient is back on anticoagulation with Eliquis regarding his pulmonary embolism. He is taking 5 mg of Eliquis twice a day. He remains on Decadron 6 mg IV every 24 hours. IV fluids are in the form of normal saline at the rate of 20 mL an hour. Enteral feeding was restarted today in the form of vital high protein at the rate of 23 mL an hour. In terms of his blood work, the patient has a white cell count of 6.7 with a hemoglobin of 9.9. Platelet counts are stable at 209. The electrolytes all within normal limits. He has a BUN of 55, 15 and a creatinine of 0.55. Electrolytes are normal. Sodium is at 137. In terms of his fluid balance, the patient was receiving Lasix 40 mg IV every 24 hours. His fluid balance is still positive. His urine output is in order of 40 mL an hour. He does have some ongoing third spacing and edema in all 4 extremities. He remains on IV Zosyn regarding MSSA in his sputum. Objective - Vital Signs Vital signs: Vital Signs Temp 98.1 F 11/12/21 04:00 Pulse 55 L 11/12/21 07:00 Resp 26 H 11/12/21 07:00 BP 114/76 11/12/21 07:00 Pulse Ox 93 L 11/12/21 07:00 Intake & Output 11/11/21 11/12/21 11/12/21 18:59 06:59 18:59 Intake Total 1787.270 0732.492 46 Output Total 1285 480 35 Balance 82.998 1339.492 11 Weight 129 kg 128.1 kg Intake: IV 276 376 23 0.9 NS KVO 240 240 20 Piperacillin-Tazobactam 3 100 .375 gm In Sodium Chloride 0.9% 100 ml @ 25 mls/hr IVPB Q8HR [facility] Rx# :[id number] Pressure bag 36 36 3 Intake, IV Titration 048.912 2652.492 Amount Cisatracurium 200 mg In 181.68 Sodium Chloride 0.9% 180 ml @ 1.5 MCG/KG/MIN 10.8 mls/hr IV .[id number] [facility] Rx #:[id number] fentaNYL (PF) 2,500 mcg 312.298 500.000 In Sodium Chloride 0.9% 200 ml @ 0.5 MCG/KG/HR 4. 082 mls/hr IV .Q24H [facility] Rx#:[id number] propofoL 1,000 mg In 478.020 600.492 Empty Bag 1 bag @ Titrate IV .Q0M [facility] Rx#: [id number] Tube Feeding 253 23 Other 120 90 Output: Urine 1285 480 35 Other: Voiding Method Indwelling Catheter Indwelling Catheter ABP, PAP, CO, CI - Last Documented Arterial Blood Pressure 120/63 - Exam GENERAL EXAM: Alert, restless 61-year-old male patient, the patient remains intubated on a mechanical ventilator and the patient is sedated HEAD: Normocephalic. EYES: Normal reaction of pupils, equal size. NOSE: Clear with pink turbinates. THROAT: No erythema or exudates. He has a Bivona tracheostomy tube in place. Exit site is clean. No evidence of any air leak. No evidence of any bleeding around the tracheostomy stoma. NECK: No masses, no JVD. CHEST: No chest wall deformity. LUNGS: Equal air entry with coarse crackles in the posterior bases. CVS: S1 and S2 normal with no audible murmur, regular rhythm. ABDOMEN: No hepatosplenomegaly, normal bowel sounds, no guarding or rigidity. The patient has also had a PEG tube in place which is currently intact. No evidence of any bleeding around the PEG tube. SPINE: No scoliosis or deformity SKIN: No rashes CENTRAL NERVOUS SYSTEM: No focal deficits, tone is normal in all 4 extremities. EXTREMITIES: There is peripheral edema. No clubbing, no cyanosis. Peripheral pulses are intact. - Labs CBC & Chem 7: 11/12/21 04:00 11/12/21 04:00 Labs: Abnormal Lab Results - Last 24 Hours (Table) 11/11/21 11/11/21 11/11/21 Range/Units 11:53 18:08 23:37 RBC (4.30-5.90) m/uL Hgb (13.0-17.5) gm/dL Hct (39.0-53.0) % ABG pCO2 (35-45) mmHg ABG pO2 (83-108) mmHg ABG HCO3 (21-25) mmol/L ABG Total CO2 (19-24) mmol/L ABG O2 Saturation (94-97) % Carbon Dioxide (22-30) mmol/L Creatinine (0.66-1.25) mg/dL Glucose (74-99) mg/dL POC Glucose (mg/dL) 120 H 127 H 130 H (75-99) mg/dL Calcium (8.4-10.2) mg/dL ALT (4-49) U/L Total Protein (6.3-8.2) g/dL Albumin (3.5-5.0) g/dL 11/12/21 11/12/21 11/12/21 Range/Units 04:00 04:00 05:40 RBC 3.11 L (4.30-5.90) m/uL Hgb 9.9 L (13.0-17.5) gm/dL Hct 30.8 L (39.0-53.0) % ABG pCO2 (35-45) mmHg ABG pO2 (83-108) mmHg ABG HCO3 (21-25) mmol/L ABG Total CO2 (19-24) mmol/L ABG O2 Saturation (94-97) % Carbon Dioxide 32 H (22-30) mmol/L Creatinine 0.55 L (0.66-1.25) mg/dL Glucose 135 H (74-99) mg/dL POC Glucose (mg/dL) 116 H (75-99) mg/dL Calcium 8.0 L (8.4-10.2) mg/dL ALT 50 H (4-49) U/L Total Protein 5.5 L (6.3-8.2) g/dL Albumin 2.4 L (3.5-5.0) g/dL 11/12/21 Range/Units 06:03 RBC (4.30-5.90) m/uL Hgb (13.0-17.5) gm/dL Hct (39.0-53.0) % ABG pCO2 57 H (35-45) mmHg ABG pO2 61 L (83-108) mmHg ABG HCO3 34 H (21-25) mmol/L ABG Total CO2 35 H (19-24) mmol/L ABG O2 Saturation 90.3 L (94-97) % Carbon Dioxide (22-30) mmol/L Creatinine (0.66-1.25) mg/dL Glucose (74-99) mg/dL POC Glucose (mg/dL) (75-99) mg/dL Calcium (8.4-10.2) mg/dL ALT (4-49) U/L Total Protein (6.3-8.2) g/dL Albumin (3.5-5.0) g/dL Assessment and Plan Plan: 1 Acute hypoxic respiratory failure related to acute COVID-19 related pneumonia, patient presented to the emergency department on 10/23/2021 with 2 week history of symptoms, patient is outside the window for Remdesivir, he is a non-vaccinated adult. The patient was transferred to the intensive care unit , the patient was started on BiPAP and ultimately failed BiPAP and the patient was intubated and placed on a mechanical ventilator. Currently is on a pressure control mode of mechanical ventilation. He has adequate oxygenation and ventilation for now. He is sedated , off paralysis . Blood culture came back positive for coagulase-negative staph. Sputum cultures showing presumed staph aureus/ MSSA. The patient is currently on Zosyn . The patient has a Bivona tracheostomy tube in place. Chest x-ray was noted and there is adequate air positioning of the tracheostomy tube. His inflammatory markers are low at this point in time. He remains on Decadron. He remains on IV Zosyn. I reviewed the chest x-ray. I reviewed the blood gases. Ventilator changes will be done and the patient is off paralytic . Anticoagulation was resumed 2 Bilateral pulmonary emboli on computed tomography scan 10/26/2021. Continued on Eliquis. 3 Diabetes mellitus type 2 with diabetic neuropathy currently on Levemir insulin for blood sugar control 4 Hypertension 5 Hyperlipidemia 6 Obstructive sleep apnea with previous history of UPPP 7 History of right eye melanoma with multiple surgeries 8 Previous history of CVA 9 Rheumatoid arthritis 10 History of gout 11 Previous history of MRSA infection in the wound on his back 12 Mild lactic acidosis, improved with IV hydration 13 Elevated inflammatory markers related to acute COVID-19 pneumonia 14 BPH with previous history of TURP 15 pneumomediastinum and subcutaneous emphysema, complications of COVID 19 related pneumonia, stable 16 tiny right apical pneumothorax less than 5% 17 sinus bradycardia Plan: Continue ventilator support with pressure control mode of mechanical ventilatio n. Change the PEEP down to 12, respiratory rate down to 22. Keep the FiO2 at 40% and a tidal volume of 400 at this point in time. PEG and tracheostomy tube completed Keep Zosyn Continue Decadron anticoagulation with Eliquis , Chest x-ray was reviewed , stable findings Enteral feeding for nutritional support will be restarted today Daily Lasix 40 mg IV Levemir 20 U and a SS coverage Stop the metoprolol for now and monitor the sinus bradycardia Wean off the fentanyl and discontinue if possible. We'll need to gradually wean of the propofol Condition is critical . Critically care evaluation that was on a more than 30 minutes. Time with Patient: Greater than 30
--- NOTE | 2021-11-12 09:08 | XR ---
EXAMINATION TYPE: XR chest 1V portable DATE OF EXAM: 11/12/2021 Comparison: 11/11/2021 Clinical History: 61-year-old male covid Findings: Tracheostomy cannula is present. Left subclavian CVC tip at the mid SVC level. Heart mildly enlarged. Diffuse interstitial and patchy opacity remains. Now visualized small right apical pneumothorax kayla uring 1.3 cm. Surgical clips along the right side of the neck. Impression: Newly visualized small, 1.3 cm right apical pneumothorax. Bilateral diffuse interstitial COVID pneumo omari persists. Critical findings called to Nurse Kalee on 2SICU at 9:03am. Dr. Teague already aware and has alr haroon documented a 5% right apical pneumothorax in the patient medical record.
[2021-11-12] MEDS: FUROSEMIDE 10 MG/ML 4 ML VIAL IV SCH (09:52)
[2021-11-12] MEDS: SERTRALINE 50 MG TAB PO SCH (09:52)
[2021-11-12] MEDS: PREGABALIN 100 MG CAP PO SCH ×2 (09:52→20:06)
[2021-11-12] MEDS: CHLORHEXIDINE GLUCONATE 15 ML CUP MUCOUS MEM SCH ×2 (09:52→20:06)
[2021-11-12] MEDS: DOCUSATE ORAL SOLN 100 MG/10 ML CUP PO SCH ×2 (09:52→20:07)
[2021-11-12] MEDS: APIXABAN 5 MG TAB PO SCH (09:52)
[2021-11-12] MEDS: ASCORBIC ACID 500 MG TAB PO SCH (09:52)
[2021-11-12] MEDS: DEXAMETHASONE SOD PHOSPHATE 10 MG/ML 1 ML VIAL IVP SCH (09:52)
[2021-11-12] MEDS: CHOLECALCIFEROL 25 MCG (1000 IU) TABLET PO SCH (09:54)
[2021-11-12] MEDS: ZINC SULFATE 220 MG CAP PO SCH (09:55)
--- NOTE | 2021-11-12 10:42 | P.PN ---
Subjective Progress Note Date: 11/12/21 CHIEF COMPLAINT: COVID-19 pneumonia HISTORY OF PRESENT ILLNESS: Patient is in the ICU on mechanical ventilation. He is status post tracheostomy and PEG tube placement on 11/10/2021. He is tolerating tube feeds. Tube feeds currently at 23 mL per hour. They're trying to wean patient off of sedation. Afebrile. WBC is 6.7 patient on Eliquis for pulmonary emboli's PHYSICAL EXAM: VITAL SIGNS: Reviewed. GENERAL: Well-developed in no acute distress. HEENT: Head is atraumatic, normocephalic. Tracheostomy site clean, dry and intact ABDOMEN: Soft. Nondistended. Nontender. PEG tube site clean dry and intact NEUROLOGIC: Intubated and sedated ASSESSMENT: 1. Acute hypoxic respiratory failure secondary to COVID-19 pneumonia requiring mechanical ventilation 2. Severe protein calorie malnutrition 3. Bilateral pulmonary emboli PLAN: -Continue to titrate tube feeds per dietitian recommendations -Continue supportive care and continue ICU management Physician Sales Contract Administrator note has been reviewed by physician. Signing provider agrees with the documented findings, assessment, and plan of care. Objective - Vital Signs Vital signs: Vital Signs Temp 97.7 F 11/12/21 08:00 Pulse 45 L 11/12/21 09:30 Resp 22 11/12/21 09:30 BP 97/63 11/12/21 09:30 Pulse Ox 95 11/12/21 09:30 Intake & Output 11/11/21 11/12/21 11/12/21 18:59 06:59 18:59 Intake Total 9207.087 4287.492 300.596 Output Total 1285 480 125 Balance 82.998 1339.492 175.596 Weight 129 kg 128.1 kg Intake: IV 276 376 69 0.9 Normal Saline @ 20 mL 240 240 60 /hr KVO Piperacillin-Tazobactam 3 100 .375 gm In Sodium Chloride 0.9% 100 ml @ 25 mls/hr IVPB Q8HR [facility] Rx# :[id number] Pressure bag 36 36 9 Intake, IV Titration 375.832 7288.492 132.596 Amount Cisatracurium 200 mg In 181.68 Sodium Chloride 0.9% 180 ml @ 1.5 MCG/KG/MIN 10.8 mls/hr IV .[id number] [facility] Rx #:[id number] fentaNYL (PF) 2,500 mcg 312.298 500.000 62.187 In Sodium Chloride 0.9% 200 ml @ 0.5 MCG/KG/HR 4. 082 mls/hr IV .Q24H [facility] Rx#:[id number] propofoL 1,000 mg In 478.020 600.492 70.409 Empty Bag 1 bag @ Titrate IV .Q0M [facility] Rx#: [id number] Tube Feeding 253 69 Other 120 90 30 Output: Urine 1285 480 125 Other: Voiding Method Indwelling Catheter Indwelling Catheter ABP, PAP, CO, CI - Last Documented Arterial Blood Pressure 103/48 - Labs CBC & Chem 7: 11/12/21 04:00 11/12/21 04:00 Labs: Abnormal Lab Results - Last 24 Hours (Table) 11/11/21 11/11/21 11/11/21 Range/Units 11:53 18:08 23:37 RBC (4.30-5.90) m/uL Hgb (13.0-17.5) gm/dL Hct (39.0-53.0) % ABG pCO2 (35-45) mmHg ABG pO2 (83-108) mmHg ABG HCO3 (21-25) mmol/L ABG Total CO2 (19-24) mmol/L ABG O2 Saturation (94-97) % Carbon Dioxide (22-30) mmol/L Creatinine (0.66-1.25) mg/dL Glucose (74-99) mg/dL POC Glucose (mg/dL) 120 H 127 H 130 H (75-99) mg/dL Calcium (8.4-10.2) mg/dL ALT (4-49) U/L Total Protein (6.3-8.2) g/dL Albumin (3.5-5.0) g/dL 11/12/21 11/12/21 11/12/21 Range/Units 04:00 04:00 05:40 RBC 3.11 L (4.30-5.90) m/uL Hgb 9.9 L (13.0-17.5) gm/dL Hct 30.8 L (39.0-53.0) % ABG pCO2 (35-45) mmHg ABG pO2 (83-108) mmHg ABG HCO3 (21-25) mmol/L ABG Total CO2 (19-24) mmol/L ABG O2 Saturation (94-97) % Carbon Dioxide 32 H (22-30) mmol/L Creatinine 0.55 L (0.66-1.25) mg/dL Glucose 135 H (74-99) mg/dL POC Glucose (mg/dL) 116 H (75-99) mg/dL Calcium 8.0 L (8.4-10.2) mg/dL ALT 50 H (4-49) U/L Total Protein 5.5 L (6.3-8.2) g/dL Albumin 2.4 L (3.5-5.0) g/dL 11/12/21 Range/Units 06:03 RBC (4.30-5.90) m/uL Hgb (13.0-17.5) gm/dL Hct (39.0-53.0) % ABG pCO2 57 H (35-45) mmHg ABG pO2 61 L (83-108) mmHg ABG HCO3 34 H (21-25) mmol/L ABG Total CO2 35 H (19-24) mmol/L ABG O2 Saturation 90.3 L (94-97) % Carbon Dioxide (22-30) mmol/L Creatinine (0.66-1.25) mg/dL Glucose (74-99) mg/dL POC Glucose (mg/dL) (75-99) mg/dL Calcium (8.4-10.2) mg/dL ALT (4-49) U/L Total Protein (6.3-8.2) g/dL Albumin (3.5-5.0) g/dL
[2021-11-12] MEDS ORDERED: OXYMETAZOLINE 0.05% NASL SPRAY 1 SPRAY BOTTLE NASAL STA (10:57)
[2021-11-12] MEDS ORDERED: Kcentra PER PHARMACY 1 EACH MISC MISCELLANE PRN (10:57)
[2021-11-12] MEDS ORDERED: TRANEXAMIC ACID 1,000 MG/10 ML VIAL MISCELLANE STA (11:03)
[2021-11-12] MEDS: CLEVIDIPINE BUTYRATE 25 MG in EMPTY BAG 1 BAG IV SCH ×3 (11:30→15:00)
[2021-11-12] MEDS: CISATRACURIUM 200 MG in SODIUM CHLORIDE 0.9% 180 ML IV SCH ×2 (11:33→21:40)
[2021-11-12 12:00] LABS: Glucose,Whole Blood 133 mg/dL (75-99)
[2021-11-12] MEDS ORDERED: methylPREDNISolone SOD SUCCI 125 MG/2 ML VIAL IV STA (13:58)
[2021-11-12 14:00] LABS: ABG Base Excess 4.4 mmol/L; ABG HCO3 32 mmol/L (21-25); ABG Oxygen Saturation 89.6 % (94-97); ABG PH 7.23 (7.35-7.45); ABG PO2 70 mmHg (83-108); ABG TCO2 34 mmol/L (19-24)
[2021-11-12 14:03] LABS: ABG PCO2 77 mmHg (35-45); Allen Test Performed? no
--- NOTE | 2021-11-12 14:22 | XR ---
EXAMINATION TYPE: XR chest 1V portable DATE OF EXAM: 11/12/2021 CLINICAL HISTORY: Difficulty breathing and hypoxia progress study. TECHNIQUE: Single AP portable semiupright view of the chest is obtained. COMPARISON: Chest x-ray from earlier today and older studies FINDINGS: Stable tracheostomy tube. Stable left-sided subclavian central venous catheter. Right neck surgical clips redemonstrated. Persistent bilateral multifocal and confluent increased opacities. Fairly stable small right upper debra ng pneumothorax estimated near 10%. Silhouette size is stable and mildly enlarged. Osseous structures are intact. IMPRESSION: Bilateral multifocal and confluent increased opacities consistent with covid-19 infection and/or ARDS redemonstrated. Stable small to tiny right apical pneumothorax. No significant change fr om x-ray earlier today.
[2021-11-12 14:49] LABS: ALT 70 U/L (4-49); AST 65 U/L (17-59); African American GFR (CKD) >90 (>60 ml/min/1.73 sqM); Albumin 3.3 g/dL (3.5-5.0); Alkaline Phosphatase 124 U/L (38-126); Anion Gap 9 mmol/L; Blood Urea Nitrogen 18 mg/dL (9-20); C Reactive Protein 5.1 mg/dL (<1.0); Calcium 8.2 mg/dL (8.4-10.2); Carbon Dioxide 30 mmol/L (22-30); Chloride 98 mmol/L (98-107); Glucose 254 mg/dL (74-99); LDH 1102 U/L (313-618); Non-African American GFR(CKD) >90 (>60 ml/min/1.73 sqM); Sodium 137 mmol/L (137-145); Total Bilirubin 1.2 mg/dL (0.2-1.3); Total Protein 7.2 g/dL (6.3-8.2)
[2021-11-12 14:59] LABS: Basophils # (A) 0.1 k/uL (0-0.2); Basophils % (A) 1 %; Eosinophils # (A) 0.3 k/uL (0-0.7); Eosinophils % (A) 2 %; HCT 39.3 % (39.0-53.0); HGB 12.8 gm/dL (13.0-17.5); Hypochromasia Moderate; Lymphocytes # (A) 1.8 k/uL (1.0-4.8); Lymphocytes % (A) 10 %; MCH 33.4 pg (25.0-35.0); MCHC 32.5 g/dL (31.0-37.0); MCV 102.6 fL (80.0-100.0); Macrocytosis Slight; Mean Platelet Volume 9.3; Monocytes # (A) 1.3 k/uL (0-1.0); Monocytes % (A) 7 %; Neutrophils # (A) 14.4 k/uL (1.3-7.7); Neutrophils % (A) 79 %; Platelet Count 389 k/uL (150-450); RBC 3.83 m/uL (4.30-5.90); RDW 14.6 % (11.5-15.5); WBC 18.2 k/uL (3.8-10.6)
[2021-11-12 15:23] LABS: Glucose,Whole Blood 248 mg/dL (75-99)
[2021-11-12 15:42] LABS: ALT 71 U/L (4-49); AST 55 U/L (17-59); African American GFR (CKD) >90 (>60 ml/min/1.73 sqM); Albumin 3.3 g/dL (3.5-5.0); Alkaline Phosphatase 136 U/L (38-126); Anion Gap 10 mmol/L; Blood Urea Nitrogen 17 mg/dL (9-20); C Reactive Protein 5.9 mg/dL (<1.0); Calcium 8.3 mg/dL (8.4-10.2); Carbon Dioxide 29 mmol/L (22-30); Chloride 99 mmol/L (98-107); Glucose 280 mg/dL (74-99); LDH 949 U/L (313-618); Magnesium 1.7 mg/dL (1.6-2.3); Non-African American GFR(CKD) >90 (>60 ml/min/1.73 sqM); Phosphorus 6.5 mg/dL (2.5-4.5); Potassium 3.9 mmol/L (3.5-5.1); Sodium 138 mmol/L (137-145); Total Bilirubin 1.2 mg/dL (0.2-1.3)
[2021-11-12 15:57] LABS: Partial Thromboplastin Time 22.6 sec (22.0-30.0); Prothrombin Time 10.6 sec (9.0-12.0)
[2021-11-12 16:15] LABS: Basophils # (A) 0.1 k/uL (0-0.2); Basophils % (A) 1 %; Eosinophils # (A) 0.2 k/uL (0-0.7); Eosinophils % (A) 1 %; HCT 40.3 % (39.0-53.0); HGB 13.1 gm/dL (13.0-17.5); Hypochromasia Moderate; Lymphocytes # (A) 1.5 k/uL (1.0-4.8); Lymphocytes % (A) 8 %; MCH 33.5 pg (25.0-35.0); MCHC 32.5 g/dL (31.0-37.0); MCV 102.8 fL (80.0-100.0); Macrocytosis Slight; Monocytes # (A) 1.4 k/uL (0-1.0); Monocytes % (A) 7 %; Neutrophils # (A) 15.6 k/uL (1.3-7.7); Neutrophils % (A) 82 %; Platelet Count 389 k/uL (150-450); RBC 3.91 m/uL (4.30-5.90); RDW 14.5 % (11.5-15.5); WBC 19.1 k/uL (3.8-10.6)
--- NOTE | 2021-11-12 16:51 | XR ---
EXAMINATION TYPE: XR chest 1V portable DATE OF EXAM: 11/12/2021 CLINICAL HISTORY: Pneumothorax progress study. TECHNIQUE: Single AP portable semiupright view of the chest is obtained. COMPARISON: Chest x-ray from earlier today and older studies. FINDINGS: Stable tracheostomy tube. Stable left-sided subclavian central venous catheter. Right neck surgical clips redemonstrated. Persistent bilateral multifocal and confluent increased opacities. Fairly stable small right upper debra ng pneumothorax estimated at 5-10 %. Cardiac silhouette size is stable and mildly enlarged. Osseous s tructures are intact. IMPRESSION: Bilateral multifocal and confluent increased opacities consistent with covid-19 infection and/or ARDS redemonstrated. Stable small to tiny right apical pneumothorax. No significant change fr om x-ray earlier today.
[2021-11-12 17:50] LABS: Glucose,Whole Blood 312 mg/dL (75-99)
[2021-11-12 19:50] LABS: Glucose,Whole Blood 254 mg/dL (75-99)
[2021-11-12] MEDS: INSULIN DETEMIR (LEVEMIR) 100 UNIT/ML SYR SQ SCH (20:18)
--- NOTE | 2021-11-12 21:48 | P.PN ---
Progress Note - Text Progress Note Date: 11/12/21 Chief Complaint: Short of breath This is a pleasant 61-year-old patient, chronic stable medical conditions include diabetes, hypertension, hyperlipidemia, osteoarthritis, peripheral neuropathy, chronic gout. Patient presents with increasing shortness of breath. Cough. Clear sputum. Fever and chills. Tired rundown decrease appetite and diarrhea about 2 times a day. Patient tested positive for COVID-19 on October 09. His initial rapid COVID-19 was negative. In the send out came back positive. Patient did not take the vaccine against COVID-19. He is on 8 L of oxygen this morning. He is outside the window for Remdesivir. Admitted with COVID 19 pneumonitis, acute hypoxic respiratory failure. Started on Decadron. IV fluids. October 24: Feeling a bit better. Short of breath. 92% on 11 L. Did eat some. Sitting at the edge of the bed. A bit tired October 25: Short of breath. Cough. Oral intake fair. On 11 L of nasal cannula. Did sit up in a chair. October 26: Short of breath. Oral intake fair. Cough. 11 L nasal cannula. Dexamethasone. Chest CTA showing bilateral pulmonary embolism. October 27: Short of breath. Eating fair. 15 L nasal cannula. Tired. October 28: Remains on 15 L of nasal cannula. Eating about 50%. Short of breath. Tired. Trying to change his positions in bed. Including prone. October 29: Patient more short of breath and tired. Pulse oxing 87% on 15 L. Laying in bed. Eating around 50%. Late in the afternoon seen by pulmonary and patient be moved to ICU. October 30: Patient moved to ICU yesterday. Because of more respiratory compromise. Intubated earlier today. Drips include Diprivan, fentanyl, Nimbex, Levophed. Sinus rhythm. FiO2 19 a PEEP of 18. October 31: ICU: Ventilator/FiO2 19 a PEEP of 18. Drips include MX, propofol, fentanyl. Epinephrine. November 01: ICU: On the ventilator FiO2 55 PEEP of 16. Drips included propofol, Nimbex, fentanyl. 2 feeding at 29 mL an hour. November 02: ICU. Ventilator 45/16. Drips include fentanyl, propofol, Nimbex. 2 feeding at 20 mL an hour. November 03: ICU. Ventilator 45/12. Drips include fentanyl, propofol. 2 feeding at 29 mL an hour. November 04: ICU. Overnight patient went into respiratory distress. X-ray was looking worse. Patient put back on 100% FiO2 and a PEEP of 16. Patient is put back on drips of currently include fentanyl, propofol, Nimbex. 2 feeding. Sedated November 05: ICU: Current drips include fentanyl, propofol, Nimbex. Ventilator: 75/16. 2 feeding at 30 mL an hour. Sinus rhythm. Blood cultures coming back coagulase-negative/staph epidermidis likely contaminant November 06: ICU: Earlier today attempt was made to cut back on the Nimbex. Patient became restless. Had to be put back on the same. Current drips include fentanyl, Nimbex, propofol. FiO2 55 and a PEEP of 16. Telemetry shows sinus rhythm. 2 feeding at 30 mL an hour. November 07: ICU: at the bedside. Ventilator: 55/16. Telemetry: Sinus rhythm. Drips include fentanyl, propofol, Nimbex. 2 feeding at 27 mL an hour. November 08: ICU: Ventilator: 55/16. Drips included propofol, fentanyl, Nimbex. [address] Sinus rhythm. November 09: ICU. Ventilator 55/16. Drips included propofol, fentanyl, Nimbex. Nimbex is being titrated down. 2 feeding. Sinus rhythm. Patient's daughter the bedside. Updated. November 10: ICU. Ventilator 55/60. Drips included propofol, fentanyl, Nimbex. 2 feeding has been held because of pending tracheostomy and PEG tube. Sinus rhythm. November 11: ICU: Ventilator 40/40. Drips include propofol and fentanyl. Often Nimbex. Patient received a tracheostomy and a PEG tube yesterday. 2 feeding will be started this afternoon. Sinus rhythm. Sedated. Off Nimbex November 12: ICU. On the ventilator with FiO2 40 and a PEEP of 12. Sinus rhythm. Drips include fentanyl, propofol, Nimbex, cleviprex. 2 feeding at 23 mL an hour. Review of systems: Intubated Active Medications Acetaminophen (Acetaminophen Tab 325 Mg Tab) 650 mg PO Q6HR PRN PRN Reason: Mild Pain or Fever > 100.5 Last Admin: 10/29/21 15:46 Dose: 650 mg Documented by: Albuterol Sulfate (Albuterol Hfa Inhaler) 2 puff INHALATION RT-QID PRN PRN Reason: Shortness Of Breath Last Admin: 11/11/21 20:36 Dose: 2 puff Documented by: Artificial Tears (Artificial Tears-Hypromellose Drops 15 Ml Btl) 2 drops BOTH EYES Q4HR [facility] Last Admin: 11/12/21 20:05 Dose: 2 drops Documented by: Ascorbic Acid (Ascorbic Acid 500 Mg Tab) 1,000 mg PO DAILY [facility] Last Admin: 11/12/21 09:52 Dose: 1,000 mg Documented by: Chlorhexidine Gluconate (Chlorhexidine Gluconate 15 Ml Cup) 15 ml MUCOUS MEM BID [facility] Last Admin: 11/12/21 20:06 Dose: 15 ml Documented by: Cholecalciferol (Cholecalciferol 25 Mcg (1000 Iu) Tablet) 25 mcg PO DAILY [facility] Last Admin: 11/12/21 09:54 Dose: 25 mcg Documented by: Dexamethasone Sodium Phosphate (Dexamethasone Sod Phosphate 10 Mg/Ml 1 Ml Vial) 6 mg IVP DAILY [facility] Last Admin: 11/12/21 09:52 Dose: 6 mg Documented by: Docusate Sodium (Docusate Oral Soln 100 Mg/10 Ml Cup) 100 mg PO BID [facility] Last Admin: 11/12/21 20:07 Dose: 100 mg Documented by: Furosemide (Furosemide 10 Mg/Ml 4 Ml Vial) 40 mg IV DAILY [facility] Last Admin: 11/12/21 09:52 Dose: 40 mg Documented by: Propofol 1,000 mg/ IV Solution 100 mls @ 0 mls/hr IV .Q0M [facility]; Protocol Last Admin: 11/12/21 21:39 Dose: 60 mcg/kg/min, 46.116 mls/hr Documented by: Piperacillin Sod/Tazobactam (Sod 3.375 gm/ Sodium Chloride) 100 mls @ 25 mls/hr IVPB Q8HR [facility] Last Admin: 11/12/21 16:01 Dose: 25 mls/hr Documented by: Cisatracurium Besylate 200 mg/ (Sodium Chloride) 200 mls @ 10.8 mls/hr IV .[id number] [facility]; Protocol Last Admin: 11/12/21 21:40 Dose: 2 mcg/kg/min, 14.4 mls/hr Documented by: Fentanyl Citrate 2,500 mcg/ (Sodium Chloride) 250 mls @ 4.082 mls/hr IV .Q24H [facility]; Protocol Last Admin: 11/12/21 20:36 Dose: 2 mcg/kg/hr, 16.329 mls/hr Documented by: Clevidipine 25 mg/ IV Solution 50 mls @ 2 mls/hr IV .Q24H [facility]; Protocol Last Titration: 11/12/21 17:02 Dose: Infused Documented by: Insulin Aspart (Insulin Aspart (Novolog) 100 Unit/Ml Vial) 0 unit SQ Q4HR [facility]; Protocol Last Admin: 11/12/21 20:06 Dose: 8 unit Documented by: Insulin Detemir (Insulin Detemir (Levemir) 100 Unit/Ml Syr) 20 unit SQ HS [facility] Last Admin: 11/12/21 20:18 Dose: 20 unit Documented by: Miscellaneous Information (Potassium Replacement Protocol 1 Each Misc) 1 each MISCELLANE DAILY PRN; Protocol PRN Reason: Per Protocol Pregabalin (Pregabalin 100 Mg Cap) 200 mg PO BID [facility] Last Admin: 11/12/21 20:06 Dose: 200 mg Documented by: Sertraline HCl (Sertraline 50 Mg Tab) 50 mg PO DAILY [facility] Last Admin: 11/12/21 09:52 Dose: 50 mg Documented by: Zinc Sulfate (Zinc Sulfate 220 Mg Cap) 220 mg PO DAILY [facility] Last Admin: 11/12/21 09:55 Dose: 220 mg Documented by: Social history: Patient is on Social Security. Does not smoke or drink alcohol. Patient's daughters family lives with him. Family history: Father at the age of 40 with heart attack Physical examination: VITAL SIGNS: Afebrile, 117, 22, 163/81, 88% on the ventilator GENERAL: Laying in bed, intubated. Tracheostomy and a PEG tube LUNGS: Respiratory rate increased,. PSYCH: Unable to assess Rest of the exam per nursing and pulmonary INVESTIGATIONS, reviewed in the clinical context: November 12: White count 98.1 hemoglobin 13.1 platelets 89 potassium 3.9 creatinine 0.42 CRP 5.9 November 11: White count 7.7 hemoglobin 10.6 platelets 218 d-dimer 7.84 potassium 4 BUN 16 creatinine 0.5 to. Chest x-ray film personally reviewed by me: Scattered infiltrates. Tracheostomy tube. Telemetry: Personally reviewed by me sinus rhythm November 10: White count 6.6 1110.1 platelets 239 potassium 3.9 creatinine 0.61. Chest x-ray and telemetry personally reviewed by me. November 09: D-dimer 7.03 pro-calcitonin 0.14 November 08: White count 7.5 hemoglobin 10 point potassium 3.5 creatinine 0.516.Chest x-ray film personally reviewed by me-scattered infiltrates November 07: White count 7.60 globin 10.1 platelets 269 potassium 3.4 creatinine 0.5 to AST 30 ALT 75 November 06: WBC 9.4 hemoglobin 9.8 platelets 250 potassium 3.6 creatinine 0.48 AST 36 ALT 91 November 05: WBC 11 hemoglobin 10.4 platelets 218 potassium 4 creatinine 0.5 to Blood culture positive for Staphylococcus epidermidis/coagulates negative. November 04: WBC 13.1 hemoglobin 11.6 potassium 4.6 creatinine 0.53. Chest x-ray film personally reviewed by me-bilateral infiltrates November 03: White count 11.9 hemoglobin 12 platelets 266 potassium 4.2 creatinine 0.55 AST 63 ALT 64 pro-calcitonin 0.12 November 02: White count 8 hemoglobin 10.5 potassium 4.4. 23 creatinine 0.5 to November 01: White count 11.1 hemoglobin 11.6 platelets 203 d-dimer 10.6 potassium 4.7 creatinine 0.73 October 31: White count 12.1 hemoglobin 12.2 platelets 240 potassium 4.8 creatinine 0.61 October 30: White count 12.9 hemoglobin 13.1 potassium 5.6 creatinine 0.69 October 29: White count 13.1 hemoglobin 13.8 d-dimer 16.2 potassium 4.7 creatinine 0.76 October 28: D-dimer 13.4 to October 26: D-dimer 8.48 CRP 24 Chest CTA [October 26: biLateral pulmonary embolism Doppler ultrasound lower extremity: Negative for DVT October 24: White count 9.7 hemoglobin 15.3 platelets 221 d-dimer 1.93 progression 4.2 creatinine 0.71 CRP 5.5 pro-calcitonin 0.08 White count 9.9 hemoglobin 16 platelets 234 d-dimer 0.98 sodium 141 potassium 3.4 creatinine 0.81 Lactic acid 2.9 LDH 1422 CRP 7.5 EKG tracing personally reviewed by me-normal sinus rhythm. Nonspecific ST segment changes. Chest x-ray film personally reviewed by me-bilateral infiltrates Assessment and plan: -Acute severe COVID 19 pneumonitis in a patient who did not take the COVID-19 vaccine: Slow to respond Dexamethasone, vitamin C, vitamin D, zinc. Patient's outside the window for Remdesivir. -Acute hypoxic respiratory failure from COVID-19: Slow to respond intubated October 30. FiO2 40 and a PEEP of 12 -Bilateral pulmonary embolism secondary to COVID-19 Eliquis -Essential hypertension Lopressor 25 mg twice a day, -Diabetes mellitus type 2, on oral hypoglycemic, Levemir 20 units daily at bedtime. Follow Accu-Cheks -Chronic insomnia for medical conditions Elavil 50 mg daily at bedtime -Hyperlipidemia TriCor 48 mg daily -Obstructive sleep apnea On CPAP at home -Diabetic peripheral neuropathy Lyrica 200 mg twice daily -Full code Drips : fentanyl , propofol . Nimbex , Precedex Ventilator. Tube feeding resumed. Tracheostomy and a PEG tube Prognosis guarded
[2021-11-12 23:10] LABS: Glucose,Whole Blood 194 mg/dL (75-99)
[2021-11-13 03:45] LABS: Glucose,Whole Blood 174 mg/dL (75-99)
[2021-11-13] MEDS: INSULIN ASPART (NovoLOG) 100 UNIT/ML VIAL SQ SCH ×5 (03:52→21:38)
[2021-11-13] MEDS: ARTIFICIAL TEARS-HYPROMELLOSE DROPS 15 ML BTL BOTH EYES SCH ×6 (03:52→23:28)
[2021-11-13 04:10] LABS: HCT 29.6 % (39.0-53.0); Hypochromasia Slight; MCHC 33.5 g/dL (31.0-37.0); MCV 98.5 fL (80.0-100.0); Mean Platelet Volume 8.1; Platelet Count 211 k/uL (150-450); Poikilocytosis Slight; RDW 14.1 % (11.5-15.5); WBC 9.2 k/uL (3.8-10.6)
[2021-11-13 04:26] LABS: African American GFR (CKD) >90 (>60 ml/min/1.73 sqM); Anion Gap 0 mmol/L; Blood Urea Nitrogen 15 mg/dL (9-20); Carbon Dioxide 35 mmol/L (22-30); Chloride 101 mmol/L (98-107); Glucose 167 mg/dL (74-99); Non-African American GFR(CKD) >90 (>60 ml/min/1.73 sqM); Potassium 3.7 mmol/L (3.5-5.1); Sodium 136 mmol/L (137-145)
[2021-11-13 04:40] LABS: HGB 9.9 gm/dL (13.0-17.5)
[2021-11-13] MEDS ORDERED: POTASSIUM BICARB-CITRIC ACID 25 MEQ TABLET.EFF PO SCH (05:00)
[2021-11-13 05:22] LABS: ABG Base Excess 10.3 mmol/L; ABG HCO3 36 mmol/L (21-25); ABG PCO2 62 mmHg (35-45); ABG PH 7.37 (7.35-7.45); ABG PO2 87 mmHg (83-108); ABG TCO2 38 mmol/L (19-24); Allen Test Performed? Yes
[2021-11-13] MEDS: fentaNYL (PF) 2,500 MCG in SODIUM CHLORIDE 0.9% 200 ML IV SCH ×2 (05:55→16:05)
--- NOTE | 2021-11-13 07:46 | P.PN ---
Subjective Progress Note Date: 11/13/21 61-year-old male patient with past medical history of diabetes mellitus type 2 with diabetic neuropathy, hypertension, hyperlipidemia, previous history of CVA, rheumatoid arthritis, obstructive sleep apnea S/P UPPP, history of right eye melanoma with previous surgeries, BPH with previous TURP, chronic lower extremity edema, cellulitis, gout, presented to the emergency department on 10/23/2021 at 240 3 in the morning with complaints of severe shortness of breath, cough, congestion. Patient states he has had symptoms since October 09, initially was tested via rapid COVID-19 PCR test which was negative however the send out PCR test came back positive. Patient was transferred to the intensive care on 10/29/2022, and was intubated in next day on 10/30/2022. On today's evaluation of 11/09/2021, the patient is being seen for a follow-up. He currently remains intubated, sedated and paralyzed, he is currently on assist control mode of ventilation with a rate of 32, tidal arm is 450, FiO2 of 55% and PEEP of 16. This morning's blood gas has been reviewed showing pO2 of 75, pCO2 of 44, and pH of 7.52. The patient's serum bicarb is currently at 35. The patient has developed some metabolic alkalosis as the patient is being diuresis with IV Lasix. The chest x-ray from today is showing adequate positioning of the orotracheal tube. The patient continues to have diffuse bilateral pulmonary infiltrates. There is loss in the left hemidiaphragm which is obviously silhouetted probably related to a left lower lobe pulmonary infiltration. Right lung infiltration seems to have improved compared to yesterday. Patient is currently on 0.9 at 20 ML per hour, fentanyl infusion at 2 mics per kilo per hr , diprivan at 60 mics per kilo per minute, Nimbex at 2 mics per kilo per minute He is tolerating his tube feedings, he is on vital high-protein at 23 with a goal of 23 and standard water flushes. Hemodynamically patient has been stable, he remains in sinus mechanism, not requiring any vasopressor support, he remains on antibiotics in the form of Zosyn for positive blood cultures, his last set of blood cultures from 11/06/2021 showed 2 coagulase-negative staph organisms, blood culture from the same day showed no growth, his sputum culture showed few PMNs, moderate gram-positive cocci, presumed staph. The Procal was 0.19, highest 0.31. Patient has been afebrile, hemodynamically he has been stable. Patient has received intermittent doses of diuretics. He currently remains on Decadron 6 mg daily, she is on Eliquis 5 mg twice daily for evidence of PE that was diagnosed during this admission. 2021, the patient is scheduled to undergo a tracheostomy tube and affect tube insertion by general surgery. This morning, the patient remains sedated and paralyzed. He remains on propofol which is currently running at 60 mg/kg per minute and the patient is also on fentanyl running at the rate of 2 g 60 mg an hour. and the patient is also Nimbex at 2 mcg/kg per minute. The patient remains on a mechanical ventilator. The patient remains on a volume cycle mode of mechanical ventilation with a tidal volume of 450 and this was dropped down to 400 yesterday with a respiratory rate of 28 and FiO2 is currently at 50% with a PEEP of 15. The patient's peak airway pressures around 40. Sodium of pressure has been around 38. Chest x-ray is unchanged and shows diffuse bi lateral pulmonary infiltrates. ET tube needs to be pushed him by another 1 cm as the patient's ET tube is sitting high up in the trachea. OG tube is in place. The patient also has a PICC line in the left upper extremity. The blood gases from today shows a pH of 7.42 with a pCO2 of 50 and a pO2 of 76. No significant orotracheal secretions. Pulse ox on a monitored in order of 97%. In terms of his COVID 19 treatment, the patient has been maintained on Decadron 6 mg IV every 24 hours. He did have abnormal blood cultures. Coagulase negative staph aureus and the blood on 2 separate blood cultures and the most recent sputum analysis was done on 11/06/2021 showed [place] and MSSA. Based on that, the patient has been covered with antibiotics and the patient is currently on Zosyn and vancomycin. The patient is also receiving Lasix 40 mg IV every 24 hours. Overall fluid balance on this patient over the past 24 hours has been +3 L. Note that the patient is also hypertensive on today's evaluation. He is on Lopressor for that. Side effects were easily used if needed for ongoing hype rtension. His most recent pro-calcitonin level was 0.19. The highest LEVEL WAS 0.31. HE REMAINS ON ANTICOAGULATION WITH ELIQUIS 5 MG BY MOUTH TWICE A DAY REGARDING PREVIOUS HISTORY OF PULMONARY EMBOLISM THAT WAS URGENTLY DIAGNOSIS SOME OF HIS ADMISSION. HE REMAINS ON LEVEMIR INSULIN 20 UNITS FOR BLOOD SUGAR CONTROL ALONG WITH ASCITES Coverage. Tube Feeds Are Currently on Hold Pending PEG and Trach Insertion. Earlier, the Patient Was Receiving Enteral Feeding and This Was in the Form of Vital High-Protein. On 2021, the patient is post tracheostomy tube insertion and the PEG tube in [facility] for prolonged mechanical ventilation and respiratory failure due to COVID 19 related pneumonia. This morning, the patient is comfortable and the patient is on propofol running at 60 mcg/kg per minute and the patient is also on fentanyl running at 3 mcg/kg/h and the patient is also paralyzed on Nimbex at 2 mcg/kg per minute. The patient remains on a mechanical ventilator. On today's evaluation, he is on a tidal volume of 400 with a rate of 28 and FiO2 is currently at 50% and a PEEP is currently at 16. The peak airway pressure is 48 on the mechanical ventilator. The patient has a Bivona tracheostomy tube in place. The chest x-ray from today shows adequate positioning of the trach eostomy tube. There is no evidence of air leak around the stoma. No evidence of any pneumothorax. No evidence of any pneumomediastinum or subcutaneous emphysema. Blood gases from today shows a pH of 7.39 with a pCO2 of 55 and pO2 of 93 and this was done and the above-mentioned ventilator setting. In terms of inflammatory markers, d-dimer today's at 7.84. The LDH level is stable at 504 and a CRP level is at 7.6. The patient remains on Decadron 6 mg IV every 24 hours. The patient is also on anticoagulation and is currently receiving Eliquis. I'm going to resume Eliquis treatment following his procedures knowing that the patient had pulmonary embolism at a time of his admission. He remains on empiric antibiotic coverage with IV Zosyn. This is covering MSSA in his sputum. The blood culture on 2 separate occasions from 11/06/2021 came back positive for coagulase-negative staph. His pro-calcitonin level is low at 0.14 and the white cell count currently is at 7.7 and the patient is currently on no pressors. The renal function is stable with a BUN of 16 and a creatinine of 0.5 and a sodium level is at 137. The patient is receiving enteral feeding for nutritional support and currently the feeding will be restarted after insertion of a PEG tube. He was receiving vital high protein. Has been receiving also Lasix dose is 40 mg IV every 24 hours. Overall fluid balance has been positive on this patient in order of 3 L over the past 24 hours. 11/12/2021, the patient underwent a tracheostomy tube insertion and he is postop day #1. The procedure was done on 11/11/2021. The patient has a Bivona tracheostomy tube in place for now and the procedure was done without any c omplication and the patient has no significant leaks around the tube. Following this procedure, the patient was taken off the paralytics and the patient is currently off Nimbex. He is still on propofol which is running at 60 mcg/kg per minute and fentanyl is running at 3 mcg/kg/h. He is very deeply sedated at this point in time. In fact he is not triggering the mechanical ventilator. He is on assist control mode at the rate of 26, tidal volume of 400, FiO2 at 40% with a PEEP of 14. His peak airway pressure was 40 earlier today with a static pressure of 38. Based on that, I dropped the PEEP down to 12 and I dropped a respiratory rate down to 22. The morning blood gases showed a pH of 7.38 with a pCO2 of 57 and pO2 of 61. Pulse ox on the monitor is in order of 95%. Chest x- ray shows no complications from the tracheostomy tube insertion. The patient continues to have diffuse bilateral pulmonary infiltrates. No evidence of any pneumomediastinum. No evidence of any subcutaneous emphysema. There is a tiny right apical pneumothorax on today's chest x-ray which is in the order of 5%. The patient is back on anticoagulation with Eliquis regarding his pulmonary embolism. He is taking 5 mg of Eliquis twice a day. He remains on Decadron 6 mg IV every 24 hours. IV fluids are in the form of normal saline at the rate of 20 mL an hour. Enteral feeding was restarted today in the form of vital high protein at the rate of 23 mL an hour. In terms of his blood work, the patient has a white cell count of 6.7 with a hemoglobin of 9.9. Platelet counts are stable at 209. The electrolytes all within normal limits. He has a BUN of 55, 15 and a creatinine of 0.55. Electrolytes are normal. Sodium is at 137. In terms of his fluid balance, the patient was receiving Lasix 40 mg IV every 24 hours. His fluid balance is still positive. His urine output is in order of 40 mL an hour. He does have some ongoing third spacing and edema in all 4 extremities. He remains on IV Zosyn regarding MSSA in his sputum. 14 2021, the patient is being seen for a follow-up. This morning, the patient is sedated and paralyzed. Note that was able to take the paralytics of the patient. Nevertheless, postop day #1 following his tracheostomy, the patient had an episode of epistaxis. This was quite a significant events during which the patient had to be suctioned. No packing was done. Were not sure where the blood was coming out. He has copious amount of blood coming from his mouth and nose. The tracheostomy was clean. No blood was coming out of the tracheostomy tube. Anticoagulation was held for 24 hours. The patient was given aspirin and TX a intranasally. Ultimately, the bleeding stopped. I'm contemplating of restarting anticoagulation again. That evaluation has been on hold since yesterday. This morning, the patient has no bleeding. He is calm and comfortable. He is sedated and paralyzed. He is currently on a combination of propofol which is running at 50 mcg/kg per minute and the patient is also on fentanyl at 2 mcg/kg/h and the patient is also Nimbex at 2 mcg/kg/m. Chest x- ray shows a tiny less than 5% right apical pneumothorax. Tracheostomy tube is in a good location. He remains on a mechanical ventilator. He is on a PEEP of 14 with an FiO2 of 40% and a tidal volume is currently at 400 with a rate of 26. Peak airway pressures at 31. Blood gases from today shows a pH of 7.37 with a pCO2 of 61 and pO2 of 86. No significant orotracheal secretions. No subcutaneous emphysema. He remains on Decadron. IV fluids are currently at KVO. He is receiving vital high protein at the rate of 23 mL an hour. Electrolytes from today are all within normal limits. Normal renal function. Hemoglobin stable at 9.9. The white cell count currently is at 9.2. He remains on IV Zosyn regarding MSSA in his sputum. Coagulation profile is normal. His d-dimer currently is at 8. The patient remains on Levemir insulin for blood sugar control. The patient is also receiving daily Lasix. Overall fluid balance has been +833 mL Objective - Vital Signs Vital signs: Vital Signs Temp 98.1 F 11/13/21 04:00 Pulse 46 L 11/13/21 07:00 Resp 22 11/13/21 07:00 BP 97/62 11/13/21 07:00 Pulse Ox 96 11/13/21 07:00 Intake & Output 11/12/21 11/13/21 11/13/21 18:59 06:59 18:59 Intake Total 2382.740 0040.204 46 Output Total 1920 650 40 Balance -528.133 9266.204 6 Weight 129.2 kg Intake: IV 356 376 23 0.9 Normal Saline @ 20 mL 220 240 20 /hr KVO Piperacillin-Tazobactam 3 100 100 .375 gm In Sodium Chloride 0.9% 100 ml @ 25 mls/hr IVPB Q8HR [facility] Rx# :[id number] Pressure bag 36 36 3 Intake, IV Titration 018.398 9784.204 Amount Cisatracurium 200 mg In 113.52 81.12 Sodium Chloride 0.9% 180 ml @ 1.5 MCG/KG/MIN 10.8 mls/hr IV .[id number] [facility] Rx #:[id number] Clevidipine Butyrate 25 150.000 mg In Empty Bag 1 bag @ 1 MG/HR 2 mls/hr IV .Q24H [facility] Rx#:[id number] fentaNYL (PF) 2,500 mcg 161.253 500 In Sodium Chloride 0.9% 200 ml @ 0.5 MCG/KG/HR 4. 082 mls/hr IV .Q24H [facility] Rx#:[id number] propofoL 1,000 mg In 424.129 565.084 Empty Bag 1 bag @ Titrate IV .Q0M [facility] Rx#: [id number] Tube Feeding 230 276 23 Lipid 20 0.9 Normal Saline @ 20 mL 20 /hr KVO Other 60 90 Output: Urine 1920 650 40 Other: Voiding Method Indwelling Catheter Indwelling Catheter ABP, PAP, CO, CI - Last Documented Arterial Blood Pressure 112/61 - Exam GENERAL EXAM: Alert, restless 61-year-old male patient, the patient remains intubated on a mechanical ventilator and the patient is sedated and Nimbex HEAD: Normocephalic. EYES: Normal reaction of pupils, equal size. NOSE: Clear with pink turbinates. THROAT: No erythema or exudates. He has a Bivona tracheostomy tube in place. Exit site is clean. No evidence of any air leak. No evidence of any bleeding around the tracheostomy stoma. NECK: No masses, no JVD. CHEST: No chest wall deformity. LUNGS: Equal air entry with coarse crackles in the posterior bases. CVS: S1 and S2 normal with no audible murmur, regular rhythm. ABDOMEN: No hepatosplenomegaly, normal bowel sounds, no guarding or rigidity. The patient has also had a PEG tube in place which is currently intact. No evidence of any bleeding around the PEG tube. SPINE: No scoliosis or deformity SKIN: No rashes CENTRAL NERVOUS SYSTEM: No focal deficits, tone is normal in all 4 extremities. EXTREMITIES: There is peripheral edema. No clubbing, no cyanosis. Peripheral pulses are intact. - Labs CBC & Chem 7: 11/13/21 04:00 11/13/21 04:00 Labs: Abnormal Lab Results - Last 24 Hours (Table) 11/12/21 11/12/21 11/12/21 Range/Units 11:58 13:58 14:34 WBC 18.2 H (3.8-10.6) k/uL RBC 3.83 L (4.30-5.90) m/uL Hgb 12.8 L (13.0-17.5) gm/dL Hct (39.0-53.0) % MCV 102.6 H (80.0-100.0) fL Neutrophils # 14.4 H (1.3-7.7) k/uL Monocytes # 1.3 H (0-1.0) k/uL D-Dimer (<0.60) mg/L FEU ABG pH 7.23 L (7.35-7.45) ABG pCO2 77 H* (35-45) mmHg ABG pO2 70 L (83-108) mmHg ABG HCO3 32 H (21-25) mmol/L ABG Total CO2 34 H (19-24) mmol/L ABG O2 Saturation 89.6 L (94-97) % Sodium (137-145) mmol/L Carbon Dioxide (22-30) mmol/L Creatinine (0.66-1.25) mg/dL Glucose (74-99) mg/dL POC Glucose (mg/dL) 133 H (75-99) mg/dL Calcium (8.4-10.2) mg/dL Phosphorus (2.5-4.5) mg/dL Ferritin (22.0-322.0) ng/mL AST (17-59) U/L ALT (4-49) U/L Alkaline Phosphatase (38-126) U/L Lactate Dehydrogenase (313-618) U/L C-Reactive Protein (<1.0) mg/dL Albumin (3.5-5.0) g/dL Procalcitonin (0.02-0.09) ng/mL 11/12/21 11/12/21 11/12/21 Range/Units 14:34 14:34 15:00 WBC (3.8-10.6) k/uL RBC (4.30-5.90) m/uL Hgb (13.0-17.5) gm/dL Hct (39.0-53.0) % MCV (80.0-100.0) fL Neutrophils # (1.3-7.7) k/uL Monocytes # (0-1.0) k/uL D-Dimer 8.48 H (<0.60) mg/L FEU ABG pH (7.35-7.45) ABG pCO2 (35-45) mmHg ABG pO2 (83-108) mmHg ABG HCO3 (21-25) mmol/L ABG Total CO2 (19-24) mmol/L ABG O2 Saturation (94-97) % Sodium (137-145) mmol/L Carbon Dioxide (22-30) mmol/L Creatinine 0.38 L (0.66-1.25) mg/dL Glucose 254 H (74-99) mg/dL POC Glucose (mg/dL) (75-99) mg/dL Calcium 8.2 L (8.4-10.2) mg/dL Phosphorus (2.5-4.5) mg/dL Ferritin (22.0-322.0) ng/mL AST 65 H (17-59) U/L ALT 70 H (4-49) U/L Alkaline Phosphatase (38-126) U/L Lactate Dehydrogenase 1102 H (313-618) U/L C-Reactive Protein 5.1 H (<1.0) mg/dL Albumin 3.3 L (3.5-5.0) g/dL Procalcitonin 0.15 H (0.02-0.09) ng/mL 11/12/21 11/12/21 11/12/21 Range/Units 15:00 15:00 15:21 WBC 19.1 H (3.8-10.6) k/uL RBC 3.91 L (4.30-5.90) m/uL Hgb (13.0-17.5) gm/dL Hct (39.0-53.0) % MCV 102.8 H (80.0-100.0) fL Neutrophils # 15.6 H (1.3-7.7) k/uL Monocytes # 1.4 H (0-1.0) k/uL D-Dimer (<0.60) mg/L FEU ABG pH (7.35-7.45) ABG pCO2 (35-45) mmHg ABG pO2 (83-108) mmHg ABG HCO3 (21-25) mmol/L ABG Total CO2 (19-24) mmol/L ABG O2 Saturation (94-97) % Sodium (137-145) mmol/L Carbon Dioxide (22-30) mmol/L Creatinine 0.42 L (0.66-1.25) mg/dL Glucose 280 H (74-99) mg/dL POC Glucose (mg/dL) 248 H (75-99) mg/dL Calcium 8.3 L (8.4-10.2) mg/dL Phosphorus 6.5 H (2.5-4.5) mg/dL Ferritin 758.0 H (22.0-322.0) ng/mL AST (17-59) U/L ALT 71 H (4-49) U/L Alkaline Phosphatase 136 H (38-126) U/L Lactate Dehydrogenase 949 H (313-618) U/L C-Reactive Protein 5.9 H (<1.0) mg/dL Albumin 3.3 L (3.5-5.0) g/dL Procalcitonin (0.02-0.09) ng/mL 11/12/21 11/12/21 11/12/21 Range/Units 17:38 19:49 23:09 WBC (3.8-10.6) k/uL RBC (4.30-5.90) m/uL Hgb (13.0-17.5) gm/dL Hct (39.0-53.0) % MCV (80.0-100.0) fL Neutrophils # (1.3-7.7) k/uL Monocytes # (0-1.0) k/uL D-Dimer (<0.60) mg/L FEU ABG pH (7.35-7.45) ABG pCO2 (35-45) mmHg ABG pO2 (83-108) mmHg ABG HCO3 (21-25) mmol/L ABG Total CO2 (19-24) mmol/L ABG O2 Saturation (94-97) % Sodium (137-145) mmol/L Carbon Dioxide (22-30) mmol/L Creatinine (0.66-1.25) mg/dL Glucose (74-99) mg/dL POC Glucose (mg/dL) 312 H 254 H 194 H (75-99) mg/dL Calcium (8.4-10.2) mg/dL Phosphorus (2.5-4.5) mg/dL Ferritin (22.0-322.0) ng/mL AST (17-59) U/L ALT (4-49) U/L Alkaline Phosphatase (38-126) U/L Lactate Dehydrogenase (313-618) U/L C-Reactive Protein (<1.0) mg/dL Albumin (3.5-5.0) g/dL Procalcitonin (0.02-0.09) ng/mL 11/13/21 11/13/21 11/13/21 Range/Units 03:42 04:00 04:00 WBC (3.8-10.6) k/uL RBC 3.00 L (4.30-5.90) m/uL Hgb 9.9 L D (13.0-17.5) gm/dL Hct 29.6 L (39.0-53.0) % MCV (80.0-100.0) fL Neutrophils # (1.3-7.7) k/uL Monocytes # (0-1.0) k/uL D-Dimer (<0.60) mg/L FEU ABG pH (7.35-7.45) ABG pCO2 (35-45) mmHg ABG pO2 (83-108) mmHg ABG HCO3 (21-25) mmol/L ABG Total CO2 (19-24) mmol/L ABG O2 Saturation (94-97) % Sodium 136 L (137-145) mmol/L Carbon Dioxide 35 H (22-30) mmol/L Creatinine 0.50 L (0.66-1.25) mg/dL Glucose 167 H (74-99) mg/dL POC Glucose (mg/dL) 174 H (75-99) mg/dL Calcium 8.0 L (8.4-10.2) mg/dL Phosphorus (2.5-4.5) mg/dL Ferritin (22.0-322.0) ng/mL AST (17-59) U/L ALT (4-49) U/L Alkaline Phosphatase (38-126) U/L Lactate Dehydrogenase (313-618) U/L C-Reactive Protein (<1.0) mg/dL Albumin (3.5-5.0) g/dL Procalcitonin (0.02-0.09) ng/mL 11/13/21 Range/Units 05:17 WBC (3.8-10.6) k/uL RBC (4.30-5.90) m/uL Hgb (13.0-17.5) gm/dL Hct (39.0-53.0) % MCV (80.0-100.0) fL Neutrophils # (1.3-7.7) k/uL Monocytes # (0-1.0) k/uL D-Dimer (<0.60) mg/L FEU ABG pH (7.35-7.45) ABG pCO2 62 H (35-45) mmHg ABG pO2 (83-108) mmHg ABG HCO3 36 H (21-25) mmol/L ABG Total CO2 38 H (19-24) mmol/L ABG O2 Saturation (94-97) % Sodium (137-145) mmol/L Carbon Dioxide (22-30) mmol/L Creatinine (0.66-1.25) mg/dL Glucose (74-99) mg/dL POC Glucose (mg/dL) (75-99) mg/dL Calcium (8.4-10.2) mg/dL Phosphorus (2.5-4.5) mg/dL Ferritin (22.0-322.0) ng/mL AST (17-59) U/L ALT (4-49) U/L Alkaline Phosphatase (38-126) U/L Lactate Dehydrogenase (313-618) U/L C-Reactive Protein (<1.0) mg/dL Albumin (3.5-5.0) g/dL Procalcitonin (0.02-0.09) ng/mL Assessment and Plan Plan: 1 Acute hypoxic respiratory failure related to acute COVID-19 related pneumonia, patient presented to the emergency department on 10/23/2021 with 2 week history of symptoms, patient is outside the window for Remdesivir, he is a non-vaccinated adult. The patient was transferred to the intensive care unit , the patient was started on BiPAP and ultimately failed BiPAP and the patient w as intubated and placed on a mechanical ventilator. Currently is on a pressure control mode of mechanical ventilation. Sputum cultures showing presumed staph aureus/ MSSA. The patient is currently on Zosyn . The patient has a Bivona tracheostomy tube in place. Blood gas was adequate. Chest x-ray was noted and the patient has a stable tiny right apical pneumothorax. 2 Bilateral pulmonary emboli on computed tomography scan 10/26/2021. Continued was on anticoagulation with Eliquis. The anticoagulation was held yesterday because of epistaxis 3 Diabetes mellitus type 2 with diabetic neuropathy currently on Levemir insulin for blood sugar control 4 right apical pneumothorax, approximately 5% 5 epistaxis 6 Obstructive sleep apnea with previous history of UPPP 7 History of right eye melanoma with multiple surgeries 8 Previous history of CVA 9 Rheumatoid arthritis 10 History of gout 11 Previous history of MRSA infection in the wound on his back 12 Mild lactic acidosis, improved with IV hydration 13 Elevated inflammatory markers related to acute COVID-19 pneumonia 14 BPH with previous history of TURP 15 pneumomediastinum and subcutaneous emphysema, complications of COVID 19 related pneumonia, stable 16 tiny right apical pneumothorax less than 5% 17 sinus bradycardia 18 hypertension 19 hyperlipidemia Plan: Continue ventilator support with pressure control mode of mechanical ventilation. Change the PEEP down to 10, respiratory rate down to 22. Keep the FiO2 at 40% and a tidal volume of 400 at this point in time. PEG and tracheostomy tube completed restart Eliquis in pm Keep Zosyn Continue Decadron DC nimbex Chest x-ray was reviewed , stable findings Enteral feeding for nutritional support will be restarted today Daily Lasix 40 mg IV Levemir 20 U and a SS coverage monitor the sinus bradycardia Wean off the fentanyl and discontinue if possible. We'll need to gradually wean of the propofol Monitor PTX Monitor Epistaxis Condition is critical . Critically care evaluation that was on a more than 30 minutes. Time with Patient: Greater than 30
[2021-11-13] MEDS: ZINC SULFATE 220 MG CAP PO SCH (08:21)
[2021-11-13] MEDS: SERTRALINE 50 MG TAB PO SCH (08:21)
[2021-11-13] MEDS: FUROSEMIDE 10 MG/ML 4 ML VIAL IV SCH (08:22)
[2021-11-13] MEDS: CHLORHEXIDINE GLUCONATE 15 ML CUP MUCOUS MEM SCH ×2 (08:22→21:43)
[2021-11-13] MEDS: PIPERACILLIN-TAZOBACTAM 3.375 GM in SODIUM CHLORIDE 0.9% 100 ML IVPB SCH ×3 (08:22→23:30)
[2021-11-13] MEDS: CHOLECALCIFEROL 25 MCG (1000 IU) TABLET PO SCH (08:22)
[2021-11-13] MEDS: PREGABALIN 100 MG CAP PO SCH ×2 (08:22→21:43)
[2021-11-13] MEDS: DOCUSATE ORAL SOLN 100 MG/10 ML CUP PO SCH ×2 (08:22→21:43)
[2021-11-13] MEDS: ASCORBIC ACID 500 MG TAB PO SCH (08:22)
[2021-11-13] MEDS: DEXAMETHASONE SOD PHOSPHATE 10 MG/ML 1 ML VIAL IVP SCH (08:22)
[2021-11-13 08:23] LABS: Glucose,Whole Blood 130 mg/dL (75-99)
--- NOTE | 2021-11-13 08:55 | XR ---
EXAMINATION TYPE: XR chest 1V portable DATE OF EXAM: 11/13/2021 COMPARISON: 11/12/2021 HISTORY: Shortness of breath TECHNIQUE: Single frontal view of the chest is obtained. FINDINGS: Stable tracheostomy tube. Stable left-sided subclavian central venous catheter. Right neck surgical clips redemonstrated. Persistent bilateral multifocal and confluent increased opacities. Fa irly stable small right upper lung pneumothorax estimated at 10 %. Cardiac silhouette size is stable and mildly enlarged. Osseous structures are intact. IMPRESSION: 1. Stable diffuse bilateral airspace disease and small right apical pneumothorax measuring approximat cj 10%.
[2021-11-13] MEDS: CISATRACURIUM 200 MG in SODIUM CHLORIDE 0.9% 180 ML IV SCH ×2 (10:22→23:36)
[2021-11-13 11:20] LABS: Glucose,Whole Blood 184 mg/dL (75-99)
[2021-11-13] MEDS: LACTULOSE 20 GM/30 ML CUP PO SCH ×2 (13:46→22:06)
--- NOTE | 2021-11-13 13:53 | P.PN ---
Subjective Progress Note Date: 11/13/21 CHIEF COMPLAINT: COVID-19 pneumonia HISTORY OF PRESENT ILLNESS: Patient is in the ICU on mechanical ventilation and sedated. He is status post tracheostomy and PEG tube placement on 11/10/2021. He is tolerating tube feeds. Tube feeds currently at 10 mL per hour. Patient had episode of epistaxis. Blood came from both the nose and mouth. Patient required to be suctioned. Eliquis was held last night. No blood from the tracheostomy site. Afebrile. WBC 9.2 hemoglobin 13.1 down to 9.9 PHYSICAL EXAM: VITAL SIGNS: Reviewed. GENERAL: Well-developed in no acute distress. HEENT: Head is atraumatic, normocephalic. Tracheostomy site clean, dry and intact ABDOMEN: Soft. Nondistended. Nontender. PEG tube site clean dry and intact NEUROLOGIC: Intubated and sedated ASSESSMENT: 1. Acute hypoxic respiratory failure secondary to COVID-19 pneumonia requiring mechanical ventilation 2. Severe protein calorie malnutrition 3. Bilateral pulmonary emboli PLAN: -Continue to titrate tube feeds per dietitian recommendations -Continue supportive care and continue ICU management Physician [place] note has been reviewed by physician. Signing provider agrees with the documented findings, assessment, and plan of care. Objective - Vital Signs Vital signs: Vital Signs Temp 97.8 F 11/13/21 08:00 Pulse 49 L 11/13/21 13:30 Resp 22 11/13/21 13:30 BP 87/58 11/13/21 08:30 Pulse Ox 96 11/13/21 13:30 Intake & Output 11/12/21 11/13/21 11/13/21 18:59 06:59 18:59 Intake Total 5348.426 8955.204 702.263 Output Total 5063 898 4560 Balance -943.099 4778.204 -867.737 Weight 129.2 kg 129.2 kg Intake: IV 356 376 161 0.9 Normal Saline @ 20 mL 220 240 140 /hr KVO Piperacillin-Tazobactam 3 100 100 .375 gm In Sodium Chloride 0.9% 100 ml @ 25 mls/hr IVPB Q8HR [facility] Rx# :[id number] Pressure bag 36 36 21 Intake, IV Titration 652.043 7621.204 359.263 Amount Cisatracurium 200 mg In 113.52 81.12 160.80 Sodium Chloride 0.9% 180 ml @ 1.5 MCG/KG/MIN 10.8 mls/hr IV .[id number] [facility] Rx #:[id number] Clevidipine Butyrate 25 150.000 mg In Empty Bag 1 bag @ 1 MG/HR 2 mls/hr IV .Q24H [facility] Rx#:[id number] fentaNYL (PF) 2,500 mcg 161.253 500 In Sodium Chloride 0.9% 200 ml @ 0.5 MCG/KG/HR 4. 082 mls/hr IV .Q24H [facility] Rx#:[id number] propofoL 1,000 mg In 424.129 565.084 198.463 Empty Bag 1 bag @ Titrate IV .Q0M [facility] Rx#: [id number] Tube Feeding 230 276 122 Lipid 20 0.9 Normal Saline @ 20 mL 20 /hr KVO Other 60 90 60 Output: Urine 9755 861 5517 Stool 0 Other: Voiding Method Indwelling Catheter Indwelling Catheter Indwelling Catheter ABP, PAP, CO, CI - Last Documented Arterial Blood Pressure 102/52 - Labs CBC & Chem 7: 11/13/21 04:00 11/13/21 04:00 Labs: Abnormal Lab Results - Last 24 Hours (Table) 11/12/21 11/12/21 11/12/21 Range/Units 13:58 14:34 14:34 WBC 18.2 H (3.8-10.6) k/uL RBC 3.83 L (4.30-5.90) m/uL Hgb 12.8 L (13.0-17.5) gm/dL Hct (39.0-53.0) % MCV 102.6 H (80.0-100.0) fL Neutrophils # 14.4 H (1.3-7.7) k/uL Monocytes # 1.3 H (0-1.0) k/uL D-Dimer (<0.60) mg/L FEU ABG pH 7.23 L (7.35-7.45) ABG pCO2 77 H* (35-45) mmHg ABG pO2 70 L (83-108) mmHg ABG HCO3 32 H (21-25) mmol/L ABG Total CO2 34 H (19-24) mmol/L ABG O2 Saturation 89.6 L (94-97) % Sodium (137-145) mmol/L Carbon Dioxide (22-30) mmol/L Creatinine 0.38 L (0.66-1.25) mg/dL Glucose 254 H (74-99) mg/dL POC Glucose (mg/dL) (75-99) mg/dL Calcium 8.2 L (8.4-10.2) mg/dL Phosphorus (2.5-4.5) mg/dL Ferritin (22.0-322.0) ng/mL AST 65 H (17-59) U/L ALT 70 H (4-49) U/L Alkaline Phosphatase (38-126) U/L Lactate Dehydrogenase 1102 H (313-618) U/L C-Reactive Protein 5.1 H (<1.0) mg/dL Albumin 3.3 L (3.5-5.0) g/dL Procalcitonin (0.02-0.09) ng/mL 11/12/21 11/12/21 11/12/21 Range/Units 14:34 15:00 15:00 WBC 19.1 H (3.8-10.6) k/uL RBC 3.91 L (4.30-5.90) m/uL Hgb (13.0-17.5) gm/dL Hct (39.0-53.0) % MCV 102.8 H (80.0-100.0) fL Neutrophils # 15.6 H (1.3-7.7) k/uL Monocytes # 1.4 H (0-1.0) k/uL D-Dimer 8.48 H (<0.60) mg/L FEU ABG pH (7.35-7.45) ABG pCO2 (35-45) mmHg ABG pO2 (83-108) mmHg ABG HCO3 (21-25) mmol/L ABG Total CO2 (19-24) mmol/L ABG O2 Saturation (94-97) % Sodium (137-145) mmol/L Carbon Dioxide (22-30) mmol/L Creatinine (0.66-1.25) mg/dL Glucose (74-99) mg/dL POC Glucose (mg/dL) (75-99) mg/dL Calcium (8.4-10.2) mg/dL Phosphorus (2.5-4.5) mg/dL Ferritin (22.0-322.0) ng/mL AST (17-59) U/L ALT (4-49) U/L Alkaline Phosphatase (38-126) U/L Lactate Dehydrogenase (313-618) U/L C-Reactive Protein (<1.0) mg/dL Albumin (3.5-5.0) g/dL Procalcitonin 0.15 H (0.02-0.09) ng/mL 11/12/21 11/12/21 11/12/21 Range/Units 15:00 15:21 17:38 WBC (3.8-10.6) k/uL RBC (4.30-5.90) m/uL Hgb (13.0-17.5) gm/dL Hct (39.0-53.0) % MCV (80.0-100.0) fL Neutrophils # (1.3-7.7) k/uL Monocytes # (0-1.0) k/uL D-Dimer (<0.60) mg/L FEU ABG pH (7.35-7.45) ABG pCO2 (35-45) mmHg ABG pO2 (83-108) mmHg ABG HCO3 (21-25) mmol/L ABG Total CO2 (19-24) mmol/L ABG O2 Saturation (94-97) % Sodium (137-145) mmol/L Carbon Dioxide (22-30) mmol/L Creatinine 0.42 L (0.66-1.25) mg/dL Glucose 280 H (74-99) mg/dL POC Glucose (mg/dL) 248 H 312 H (75-99) mg/dL Calcium 8.3 L (8.4-10.2) mg/dL Phosphorus 6.5 H (2.5-4.5) mg/dL Ferritin 758.0 H (22.0-322.0) ng/mL AST (17-59) U/L ALT 71 H (4-49) U/L Alkaline Phosphatase 136 H (38-126) U/L Lactate Dehydrogenase 949 H (313-618) U/L C-Reactive Protein 5.9 H (<1.0) mg/dL Albumin 3.3 L (3.5-5.0) g/dL Procalcitonin (0.02-0.09) ng/mL 11/12/21 11/12/21 11/13/21 Range/Units 19:49 23:09 03:42 WBC (3.8-10.6) k/uL RBC (4.30-5.90) m/uL Hgb (13.0-17.5) gm/dL Hct (39.0-53.0) % MCV (80.0-100.0) fL Neutrophils # (1.3-7.7) k/uL Monocytes # (0-1.0) k/uL D-Dimer (<0.60) mg/L FEU ABG pH (7.35-7.45) ABG pCO2 (35-45) mmHg ABG pO2 (83-108) mmHg ABG HCO3 (21-25) mmol/L ABG Total CO2 (19-24) mmol/L ABG O2 Saturation (94-97) % Sodium (137-145) mmol/L Carbon Dioxide (22-30) mmol/L Creatinine (0.66-1.25) mg/dL Glucose (74-99) mg/dL POC Glucose (mg/dL) 254 H 194 H 174 H (75-99) mg/dL Calcium (8.4-10.2) mg/dL Phosphorus (2.5-4.5) mg/dL Ferritin (22.0-322.0) ng/mL AST (17-59) U/L ALT (4-49) U/L Alkaline Phosphatase (38-126) U/L Lactate Dehydrogenase (313-618) U/L C-Reactive Protein (<1.0) mg/dL Albumin (3.5-5.0) g/dL Procalcitonin (0.02-0.09) ng/mL 11/13/21 11/13/21 11/13/21 Range/Units 04:00 04:00 05:17 WBC (3.8-10.6) k/uL RBC 3.00 L (4.30-5.90) m/uL Hgb 9.9 L D (13.0-17.5) gm/dL Hct 29.6 L (39.0-53.0) % MCV (80.0-100.0) fL Neutrophils # (1.3-7.7) k/uL Monocytes # (0-1.0) k/uL D-Dimer (<0.60) mg/L FEU ABG pH (7.35-7.45) ABG pCO2 62 H (35-45) mmHg ABG pO2 (83-108) mmHg ABG HCO3 36 H (21-25) mmol/L ABG Total CO2 38 H (19-24) mmol/L ABG O2 Saturation (94-97) % Sodium 136 L (137-145) mmol/L Carbon Dioxide 35 H (22-30) mmol/L Creatinine 0.50 L (0.66-1.25) mg/dL Glucose 167 H (74-99) mg/dL POC Glucose (mg/dL) (75-99) mg/dL Calcium 8.0 L (8.4-10.2) mg/dL Phosphorus (2.5-4.5) mg/dL Ferritin (22.0-322.0) ng/mL AST (17-59) U/L ALT (4-49) U/L Alkaline Phosphatase (38-126) U/L Lactate Dehydrogenase (313-618) U/L C-Reactive Protein (<1.0) mg/dL Albumin (3.5-5.0) g/dL Procalcitonin (0.02-0.09) ng/mL 11/13/21 11/13/21 Range/Units 08:21 11:19 WBC (3.8-10.6) k/uL RBC (4.30-5.90) m/uL Hgb (13.0-17.5) gm/dL Hct (39.0-53.0) % MCV (80.0-100.0) fL Neutrophils # (1.3-7.7) k/uL Monocytes # (0-1.0) k/uL D-Dimer (<0.60) mg/L FEU ABG pH (7.35-7.45) ABG pCO2 (35-45) mmHg ABG pO2 (83-108) mmHg ABG HCO3 (21-25) mmol/L ABG Total CO2 (19-24) mmol/L ABG O2 Saturation (94-97) % Sodium (137-145) mmol/L Carbon Dioxide (22-30) mmol/L Creatinine (0.66-1.25) mg/dL Glucose (74-99) mg/dL POC Glucose (mg/dL) 130 H 184 H (75-99) mg/dL Calcium (8.4-10.2) mg/dL Phosphorus (2.5-4.5) mg/dL Ferritin (22.0-322.0) ng/mL AST (17-59) U/L ALT (4-49) U/L Alkaline Phosphatase (38-126) U/L Lactate Dehydrogenase (313-618) U/L C-Reactive Protein (<1.0) mg/dL Albumin (3.5-5.0) g/dL Procalcitonin (0.02-0.09) ng/mL
--- NOTE | 2021-11-13 14:07 | XR ---
EXAMINATION TYPE: XR KUB portable DATE OF EXAM: 11/13/2021 COMPARISON: NONE HISTORY: Constipation TECHNIQUE: One view abdominal series FINDINGS: The osseous structures are intact. The bowel gas pattern is nonspecific. Retained debris throughout the colon. PEG tube is noted. Hypertrophic and degenerative changes of the spine. Calcifications the pelvis likely vascular. Osteitis pubis condensans noted. Subsegmental changes at both lung bases. IMPRESSION: 1. Nonspecific abdomen. No diagnostic evidence of obstruction. 2. Bilateral lower lobe infiltrate.
[2021-11-13] MEDS: bisacodyL 10 MG SUPP RECTAL SCH (16:12)
[2021-11-13 16:19] LABS: Glucose,Whole Blood 152 mg/dL (75-99)
--- NOTE | 2021-11-13 16:26 | P.PN ---
Progress Note - Text Progress Note Date: 11/13/21 Chief Complaint: Short of breath This is a pleasant 61-year-old patient, chronic stable medical conditions include diabetes, hypertension, hyperlipidemia, osteoarthritis, peripheral neuropathy, chronic gout. Patient presents with increasing shortness of breath. Cough. Clear sputum. Fever and chills. Tired rundown decrease appetite and diarrhea about 2 times a day. Patient tested positive for COVID-19 on October 09. His initial rapid COVID-19 was negative. In the send out came back positive. Patient did not take the vaccine against COVID-19. He is on 8 L of oxygen this morning. He is outside the window for Remdesivir. Admitted with COVID 19 pneumonitis, acute hypoxic respiratory failure. Started on Decadron. IV fluids. October 24: Feeling a bit better. Short of breath. 92% on 11 L. Did eat some. Sitting at the edge of the bed. A bit tired October 25: Short of breath. Cough. Oral intake fair. On 11 L of nasal cannula. Did sit up in a chair. October 26: Short of breath. Oral intake fair. Cough. 11 L nasal cannula. Dexamethasone. Chest CTA showing bilateral pulmonary embolism. October 27: Short of breath. Eating fair. 15 L nasal cannula. Tired. October 28: Remains on 15 L of nasal cannula. Eating about 50%. Short of breath. Tired. Trying to change his positions in bed. Including prone. October 29: Patient more short of breath and tired. Pulse oxing 87% on 15 L. Laying in bed. Eating around 50%. Late in the afternoon seen by pulmonary and patient be moved to ICU. October 30: Patient moved to ICU yesterday. Because of more respiratory compromise. Intubated earlier today. Drips include Diprivan, fentanyl, Nimbex, Levophed. Sinus rhythm. FiO2 19 a PEEP of 18. October 31: ICU: Ventilator/FiO2 19 a PEEP of 18. Drips include MX, propofol, fentanyl. Epinephrine. November 01: ICU: On the ventilator FiO2 55 PEEP of 16. Drips included propofol, Nimbex, fentanyl. 2 feeding at 29 mL an hour. November 02: ICU. Ventilator 45/16. Drips include fentanyl, propofol, Nimbex. 2 feeding at 20 mL an hour. November 03: ICU. Ventilator 45/12. Drips include fentanyl, propofol. 2 feeding at 29 mL an hour. November 04: ICU. Overnight patient went into respiratory distress. X-ray was looking worse. Patient put back on 100% FiO2 and a PEEP of 16. Patient is put back on drips of currently include fentanyl, propofol, Nimbex. 2 feeding. Sedated November 05: ICU: Current drips include fentanyl, propofol, Nimbex. Ventilator: 75/16. 2 feeding at 30 mL an hour. Sinus rhythm. Blood cultures coming back coagulase-negative/staph epidermidis likely contaminant November 06: ICU: Earlier today attempt was made to cut back on the Nimbex. Patient became restless. Had to be put back on the same. Current drips include fentanyl, Nimbex, propofol. FiO2 55 and a PEEP of 16. Telemetry shows sinus rhythm. 2 feeding at 30 mL an hour. November 07: ICU: at the bedside. Ventilator: 55/16. Telemetry: Sinus rhythm. Drips include fentanyl, propofol, Nimbex. 2 feeding at 27 mL an hour. November 08: ICU: Ventilator: 55/16. Drips included propofol, fentanyl, Nimbex. [address] Sinus rhythm. November 09: ICU. Ventilator 55/16. Drips included propofol, fentanyl, Nimbex. Nimbex is being titrated down. 2 feeding. Sinus rhythm. Patient's daughter the bedside. Updated. November 10: ICU. Ventilator 55/60. Drips included propofol, fentanyl, Nimbex. 2 feeding has been held because of pending tracheostomy and PEG tube. Sinus rhythm. November 11: ICU: Ventilator 40/40. Drips include propofol and fentanyl. Often Nimbex. Patient received a tracheostomy and a PEG tube yesterday. 2 feeding will be started this afternoon. Sinus rhythm. Sedated. Off Nimbex November 12: ICU. On the ventilator with FiO2 40 and a PEEP of 12. Sinus rhythm. Drips include fentanyl, propofol, Nimbex, cleviprex. 2 feeding at 23 mL an hour. November 13: ICU. Ventilator: 40/10. Drips include fentanyl, propofol, Nimbex. 2 feeding at 10 mL an hour. Patient had a episode of large epistaxis. Suction was done. Review of systems: Intubated Active Medications Acetaminophen (Acetaminophen Tab 325 Mg Tab) 650 mg PO Q6HR PRN PRN Reason: Mild Pain or Fever > 100.5 Last Admin: 10/29/21 15:46 Dose: 650 mg Documented by: Albuterol Sulfate (Albuterol Hfa Inhaler) 2 puff INHALATION RT-QID PRN PRN Reason: Shortness Of Breath Last Admin: 11/11/21 20:36 Dose: 2 puff Documented by: Apixaban (Apixaban 5 Mg Tab) 5 mg PO BID [facility]; Protocol Artificial Tears (Artificial Tears-Hypromellose Drops 15 Ml Btl) 2 drops BOTH EYES Q4HR [facility] Last Admin: 11/13/21 16:07 Dose: 2 drops Documented by: Ascorbic Acid (Ascorbic Acid 500 Mg Tab) 1,000 mg PO DAILY [facility] Last Admin: 11/13/21 08:22 Dose: 1,000 mg Documented by: Bisacodyl (Bisacodyl 10 Mg Supp) 10 mg RECTAL BID [facility] Last Admin: 11/13/21 16:12 Dose: 10 mg Documented by: Chlorhexidine Gluconate (Chlorhexidine Gluconate 15 Ml Cup) 15 ml MUCOUS MEM BID [facility] Last Admin: 11/13/21 08:22 Dose: 15 ml Documented by: Cholecalciferol (Cholecalciferol 25 Mcg (1000 Iu) Tablet) 25 mcg PO DAILY [facility] Last Admin: 11/13/21 08:22 Dose: 25 mcg Documented by: Dexamethasone Sodium Phosphate (Dexamethasone Sod Phosphate 10 Mg/Ml 1 Ml Vial) 6 mg IVP DAILY [facility] Last Admin: 11/13/21 08:22 Dose: 6 mg Documented by: Docusate Sodium (Docusate Oral Soln 100 Mg/10 Ml Cup) 100 mg PO BID [facility] Last Admin: 11/13/21 08:22 Dose: 100 mg Documented by: Furosemide (Furosemide 10 Mg/Ml 4 Ml Vial) 40 mg IV DAILY [facility] Last Admin: 11/13/21 08:22 Dose: 40 mg Documented by: Propofol 1,000 mg/ IV Solution 100 mls @ 0 mls/hr IV .Q0M [facility]; Protocol Last Admin: 11/13/21 14:20 Dose: 50 mcg/kg/min, 38.76 mls/hr Documented by: Piperacillin Sod/Tazobactam (Sod 3.375 gm/ Sodium Chloride) 100 mls @ 25 mls/hr IVPB Q8HR [facility] Last Admin: 11/13/21 15:58 Dose: 25 mls/hr Documented by: Cisatracurium Besylate 200 mg/ (Sodium Chloride) 200 mls @ 10.8 mls/hr IV .[id number] [facility]; Protocol Last Admin: 11/13/21 10:22 Dose: 2 mcg/kg/min, 14.4 mls/hr Documented by: Fentanyl Citrate 2,500 mcg/ (Sodium Chloride) 250 mls @ 4.082 mls/hr IV .Q24H [facility]; Protocol Last Admin: 11/13/21 16:05 Dose: 2 mcg/kg/hr, 16.329 mls/hr Documented by: Clevidipine 25 mg/ IV Solution 50 mls @ 2 mls/hr IV .Q24H [facility]; Protocol Last Titration: 11/12/21 17:02 Dose: Infused Documented by: Insulin Aspart (Insulin Aspart (Novolog) 100 Unit/Ml Vial) 0 unit SQ Q4HR [facility]; Protocol Last Admin: 11/13/21 16:19 Dose: 2 unit Documented by: Insulin Detemir (Insulin Detemir (Levemir) 100 Unit/Ml Syr) 20 unit SQ HS [facility] Last Admin: 11/12/21 20:18 Dose: 20 unit Documented by: Lactulose (Lactulose 20 Gm/30 Ml Cup) 10 gm PO BID [facility] Last Admin: 11/13/21 13:46 Dose: 10 gm Documented by: Miscellaneous Information (Potassium Replacement Protocol 1 Each Misc) 1 each MISCELLANE DAILY PRN; Protocol PRN Reason: Per Protocol Pregabalin (Pregabalin 100 Mg Cap) 200 mg PO BID [facility] Last Admin: 11/13/21 08:22 Dose: 200 mg Documented by: Sertraline HCl (Sertraline 50 Mg Tab) 50 mg PO DAILY [facility] Last Admin: 11/13/21 08:21 Dose: 50 mg Documented by: Zinc Sulfate (Zinc Sulfate 220 Mg Cap) 220 mg PO DAILY [facility] Last Admin: 11/13/21 08:21 Dose: 220 mg Documented by: Social history: Patient is on Social Security. Does not smoke or drink alcohol. Patient's daughters family lives with him. Family history: Father at the age of 40 with heart attack Physical examination: VITAL SIGNS: 97.8, 55, 22, 140s/64, 95% on vent GENERAL: Laying in bed, intubated. Tracheostomy and a PEG tube LUNGS: Respiratory rate increased,. PSYCH: Unable to assess Rest of the exam per nursing and pulmonary INVESTIGATIONS, reviewed in the clinical context: November 13: White count 9.2 hemoglobin 9.9 potassium 3.7 creatinine 0.5 November 12: White count 98.1 hemoglobin 13.1 platelets 89 potassium 3.9 creatinine 0.42 CRP 5.9 November 11: White count 7.7 hemoglobin 10.6 platelets 218 d-dimer 7.84 potassium 4 BUN 16 creatinine 0.5 to. Chest x-ray film personally reviewed by me: Scattered infiltrates. Tracheostomy tube. Telemetry: Personally reviewed by me sinus rhythm November 10: White count 6.6 1110.1 platelets 239 potassium 3.9 creatinine 0.61. Chest x-ray and telemetry personally reviewed by me. November 09: D-dimer 7.03 pro-calcitonin 0.14 November 08: White count 7.5 hemoglobin 10 point potassium 3.5 creatinine 0.516.Chest x-ray film personally reviewed by me-scattered infiltrates November 07: White count 7.60 globin 10.1 platelets 269 potassium 3.4 creatinine 0.5 to AST 30 ALT 75 November 06: WBC 9.4 hemoglobin 9.8 platelets 250 potassium 3.6 creatinine 0.48 AST 36 ALT 91 October 6: WBC 11 hemoglobin 10.4 platelets 218 potassium 4 creatinine 0.5 to Blood culture positive for Staphylococcus epidermidis/coagulates negative. November 04: WBC 13.1 hemoglobin 11.6 potassium 4.6 creatinine 0.53. Chest x-ray film personally reviewed by me-bilateral infiltrates November 03: White count 11.9 hemoglobin 12 platelets 266 potassium 4.2 creatinine 0.55 AST 63 ALT 64 pro-calcitonin 0.12 November 02: White count 8 hemoglobin 10.5 potassium 4.4. 23 creatinine 0.5 to November 01: White count 11.1 hemoglobin 11.6 platelets 203 d-dimer 10.6 potassium 4.7 creatinine 0.73 October 31: White count 12.1 hemoglobin 12.2 platelets 240 potassium 4.8 creatinine 0.61 October 30: White count 12.9 hemoglobin 13.1 potassium 5.6 creatinine 0.69 October 29: White count 13.1 hemoglobin 13.8 d-dimer 16.2 potassium 4.7 creatinine 0.76 October 28: D-dimer 13.4 to October 26: D-dimer 8.48 CRP 24 Chest CTA [October 26: biLateral pulmonary embolism Doppler ultrasound lower extremity: Negative for DVT October 24: White count 9.7 hemoglobin 15.3 platelets 221 d-dimer 1.93 progression 4.2 creatinine 0.71 CRP 5.5 pro-calcitonin 0.08 White count 9.9 hemoglobin 16 platelets 234 d-dimer 0.98 sodium 141 potassium 3.4 creatinine 0.81 Lactic acid 2.9 LDH 1422 CRP 7.5 EKG tracing personally reviewed by me-normal sinus rhythm. Nonspecific ST segment changes. Chest x-ray film personally reviewed by me-bilateral infiltrates Assessment and plan: -Acute severe COVID 19 pneumonitis in a patient who did not take the COVID-19 vaccine: Slow to respond Dexamethasone, vitamin C, vitamin D, zinc. Patient's outside the window for Remdesivir. -Acute hypoxic respiratory failure from COVID-19: Slow to respond intubated October 30. FiO2 40 and a PEEP of 12 -Acute episode of large epistaxis. Blood suction. -Bilateral pulmonary embolism secondary to COVID-19 Eliquis -Essential hypertension Lopressor 25 mg twice a day, -Diabetes mellitus type 2, on oral hypoglycemic, Levemir 20 units daily at bedtime. Follow Accu-Cheks -Chronic insomnia for medical conditions Elavil 50 mg daily at bedtime -Hyperlipidemia TriCor 48 mg daily -Obstructive sleep apnea On CPAP at home -Diabetic peripheral neuropathy Lyrica 200 mg twice daily -Full code Drips : fentanyl , propofol . Nimbex , Ventilator. Epistaxis/blood suction. Prognosis guarded
[2021-11-13] MEDS ORDERED: APIXABAN 5 MG TAB PO SCH (21:00)
[2021-11-13 21:30] LABS: Glucose,Whole Blood 111 mg/dL (75-99)
[2021-11-13] MEDS: INSULIN DETEMIR (LEVEMIR) 100 UNIT/ML SYR SQ SCH (21:43)
[2021-11-13 23:32] LABS: Glucose,Whole Blood 101 mg/dL (75-99)
[2021-11-14] MEDS: INSULIN ASPART (NovoLOG) 100 UNIT/ML VIAL SQ SCH ×6 (00:24→20:01)
[2021-11-14] MEDS: fentaNYL (PF) 2,500 MCG in SODIUM CHLORIDE 0.9% 200 ML IV SCH ×4 (01:41→20:07)
[2021-11-14] MEDS: ARTIFICIAL TEARS-HYPROMELLOSE DROPS 15 ML BTL BOTH EYES SCH ×5 (03:47→20:01)
[2021-11-14 03:52] LABS: Glucose,Whole Blood 93 mg/dL (75-99)
[2021-11-14 04:17] LABS: HCT 33.6 % (39.0-53.0); HGB 10.9 gm/dL (13.0-17.5); Hypochromasia Slight; MCH 32.1 pg (25.0-35.0); MCHC 32.4 g/dL (31.0-37.0); MCV 99.2 fL (80.0-100.0); Macrocytosis Slight; Mean Platelet Volume 8.1; Platelet Count 234 k/uL (150-450); RBC 3.39 m/uL (4.30-5.90); RDW 14.3 % (11.5-15.5)
[2021-11-14 04:25] LABS: African American GFR (CKD) >90 (>60 ml/min/1.73 sqM); Anion Gap 2 mmol/L; Blood Urea Nitrogen 16 mg/dL (9-20); Calcium 8.3 mg/dL (8.4-10.2); Carbon Dioxide 35 mmol/L (22-30); Chloride 102 mmol/L (98-107); Glucose 95 mg/dL (74-99); Non-African American GFR(CKD) >90 (>60 ml/min/1.73 sqM); Potassium 3.3 mmol/L (3.5-5.1); Sodium 139 mmol/L (137-145)
[2021-11-14 05:42] LABS: ABG Base Excess 12.5 mmol/L; ABG HCO3 37 mmol/L (21-25); ABG Oxygen Saturation 94.4 % (94-97); ABG PCO2 55 mmHg (35-45); ABG PH 7.43 (7.35-7.45); ABG PO2 70 mmHg (83-108); ABG TCO2 39 mmol/L (19-24); Allen Test Performed? Yes
[2021-11-14] MEDS ORDERED: Potassium Replacement Protocol 1 EACH MISC MISCELLANE PRN (06:11)
--- NOTE | 2021-11-14 06:39 | XR ---
EXAMINATION TYPE: XR chest 1V portable DATE OF EXAM: 11/14/2021 COMPARISON: 11/13/2021 HISTORY: Covid pneumonia TECHNIQUE: Single frontal view of the chest is obtained. FINDINGS: Diffuse interstitial and airspace opacities are unchanged compared to previous. There is no pneumothorax or large pleural effusion. There is a tracheostomy tube and left-sided PICC line unchanged in position. There are multiple clips in the soft tissues of the right neck The osseous structures are intact. The heart size is normal. IMPRESSION: No change in the diffuse bilateral infiltrates
[2021-11-14] MEDS: POTASSIUM BICARBONATE/CIT AC 20 MEQ TABLET.EFF NG-TUBE SCH ×2 (06:52→15:15)
[2021-11-14 08:02] LABS: Glucose,Whole Blood 89 mg/dL (75-99)
[2021-11-14] MEDS: ALBUTEROL HFA INHALER INHALATION PRN ×2 (08:06→20:22)
[2021-11-14] MEDS ORDERED: CLEVIDIPINE BUTYRATE 25 MG/50 ML VIAL IV ONE ×2 (08:17→12:28)
[2021-11-14] MEDS: CLEVIDIPINE BUTYRATE 25 MG in EMPTY BAG 1 BAG IV SCH ×7 (08:25→17:30)
[2021-11-14] MEDS ORDERED: TRANEXAMIC ACID 1,000 MG/10 ML VIAL IRRIGATION ONE ×2 (08:29→08:57)
[2021-11-14] MEDS ORDERED: HUMAN PROTHROMBIN COMPLX 500 UNIT/16 ML VIAL IV ONE (08:56)
[2021-11-14] MEDS ORDERED: HUMAN PROTHROMBIN COMPLX IV ONE (09:00)
[2021-11-14 09:31] LABS: Glucose,Whole Blood 148 mg/dL (75-99)
[2021-11-14 09:44] LABS: Basophils # (A) 0.1 k/uL (0-0.2); Basophils % (A) 1 %; Eosinophils # (A) 0.3 k/uL (0-0.7); Eosinophils % (A) 2 %; HCT 36.7 % (39.0-53.0); HGB 11.6 gm/dL (13.0-17.5); Hypochromasia Slight; Lymphocytes # (A) 2.4 k/uL (1.0-4.8); Lymphocytes % (A) 15 %; MCH 31.4 pg (25.0-35.0); MCHC 31.5 g/dL (31.0-37.0); MCV 99.7 fL (80.0-100.0); Macrocytosis Slight; Mean Platelet Volume 7.9; Monocytes # (A) 1.2 k/uL (0-1.0); Monocytes % (A) 7 %; Neutrophils # (A) 11.6 k/uL (1.3-7.7); Neutrophils % (A) 73 %; Platelet Count 318 k/uL (150-450); RBC 3.68 m/uL (4.30-5.90); RDW 14.5 % (11.5-15.5); WBC 15.9 k/uL (3.8-10.6)
--- NOTE | 2021-11-14 09:51 | P.PN ---
Subjective Progress Note Date: 11/14/21 61-year-old male patient with past medical history of diabetes mellitus type 2 with diabetic neuropathy, hypertension, hyperlipidemia, previous history of CVA, rheumatoid arthritis, obstructive sleep apnea S/P UPPP, history of right eye melanoma with previous surgeries, BPH with previous TURP, chronic lower extremity edema, cellulitis, gout, presented to the emergency department on 10/23/2021 at 240 3 in the morning with complaints of severe shortness of breath, cough, congestion. Patient states he has had symptoms since October 09, initially was tested via rapid COVID-19 PCR test which was negative however the send out PCR test came back positive. Patient was transferred to the intensive care on 10/29/2022, and was intubated in next day on 10/30/2022. On today's evaluation of 11/09/2021, the patient is being seen for a follow-up. He currently remains intubated, sedated and paralyzed, he is currently on assist control mode of ventilation with a rate of 32, tidal arm is 450, FiO2 of 55% and PEEP of 16. This morning's blood gas has been reviewed showing pO2 of 75, pCO2 of 44, and pH of 7.52. The patient's serum bicarb is currently at 35. The patient has developed some metabolic alkalosis as the patient is being diuresis with IV Lasix. The chest x-ray from today is showing adequate positioning of the orotracheal tube. The patient continues to have diffuse bilateral pulmonary infiltrates. There is loss in the left hemidiaphragm which is obviously silhouetted probably related to a left lower lobe pulmonary infiltration. Right lung infiltration seems to have improved compared to yesterday. Patient is currently on 0.9 at 20 ML per hour, fentanyl infusion at 2 mics per kilo per hr , diprivan at 60 mics per kilo per minute, Nimbex at 2 mics per kilo per minute He is tolerating his tube feedings, he is on vital high-protein at 23 with a goal of 23 and standard water flushes. Hemodynamically patient has been stable, he remains in sinus mechanism, not requiring any vasopressor support, he remains on antibiotics in the form of Zosyn for positive blood cultures, his last set of blood cultures from 11/06/2021 showed 2 coagulase-negative staph organisms, blood culture from the same day showed no growth, his sputum culture showed few PMNs, moderate gram-positive cocci, presumed staph. The Procal was 0.19, highest 0.31. Patient has been afebrile, hemodynamically he has been stable. Patient has received intermittent doses of diuretics. He currently remains on Decadron 6 mg daily, she is on Eliquis 5 mg twice daily for evidence of PE that was diagnosed during this admission. 2021, the patient is scheduled to undergo a tracheostomy tube and affect tube insertion by general surgery. This morning, the patient remains sedated and paralyzed. He remains on propofol which is currently running at 60 mg/kg per minute and the patient is also on fentanyl running at the rate of 2 g 60 mg an hour. and the patient is also Nimbex at 2 mcg/kg per minute. The patient remains on a mechanical ventilator. The patient remains on a volume cycle mode of mechanical ventilation with a tidal volume of 450 and this was dropped down to 400 yesterday with a respiratory rate of 28 and FiO2 is currently at 50% with a PEEP of 15. The patient's peak airway pressures around 40. Sodium of pressure has been around 38. Chest x-ray is unchanged and shows diffuse bi lateral pulmonary infiltrates. ET tube needs to be pushed him by another 1 cm as the patient's ET tube is sitting high up in the trachea. OG tube is in place. The patient also has a PICC line in the left upper extremity. The blood gases from today shows a pH of 7.42 with a pCO2 of 50 and a pO2 of 76. No significant orotracheal secretions. Pulse ox on a monitored in order of 97%. In terms of his COVID 19 treatment, the patient has been maintained on Decadron 6 mg IV every 24 hours. He did have abnormal blood cultures. Coagulase negative staph aureus and the blood on 2 separate blood cultures and the most recent sputum analysis was done on 11/06/2021 showed [place] and MSSA. Based on that, the patient has been covered with antibiotics and the patient is currently on Zosyn and vancomycin. The patient is also receiving Lasix 40 mg IV every 24 hours. Overall fluid balance on this patient over the past 24 hours has been +3 L. Note that the patient is also hypertensive on today's evaluation. He is on Lopressor for that. Side effects were easily used if needed for ongoing hype rtension. His most recent pro-calcitonin level was 0.19. The highest LEVEL WAS 0.31. HE REMAINS ON ANTICOAGULATION WITH ELIQUIS 5 MG BY MOUTH TWICE A DAY REGARDING PREVIOUS HISTORY OF PULMONARY EMBOLISM THAT WAS URGENTLY DIAGNOSIS SOME OF HIS ADMISSION. HE REMAINS ON LEVEMIR INSULIN 20 UNITS FOR BLOOD SUGAR CONTROL ALONG WITH ASCITES Coverage. Tube Feeds Are Currently on Hold Pending PEG and Trach Insertion. Earlier, the Patient Was Receiving Enteral Feeding and This Was in the Form of Vital High-Protein. On 2021, the patient is post tracheostomy tube insertion and the PEG tube in [facility] for prolonged mechanical ventilation and respiratory failure due to COVID 19 related pneumonia. This morning, the patient is comfortable and the patient is on propofol running at 60 mcg/kg per minute and the patient is also on fentanyl running at 3 mcg/kg/h and the patient is also paralyzed on Nimbex at 2 mcg/kg per minute. The patient remains on a mechanical ventilator. On today's evaluation, he is on a tidal volume of 400 with a rate of 28 and FiO2 is currently at 50% and a PEEP is currently at 16. The peak airway pressure is 48 on the mechanical ventilator. The patient has a Bivona tracheostomy tube in place. The chest x-ray from today shows adequate positioning of the trach eostomy tube. There is no evidence of air leak around the stoma. No evidence of any pneumothorax. No evidence of any pneumomediastinum or subcutaneous emphysema. Blood gases from today shows a pH of 7.39 with a pCO2 of 55 and pO2 of 93 and this was done and the above-mentioned ventilator setting. In terms of inflammatory markers, d-dimer today's at 7.84. The LDH level is stable at 504 and a CRP level is at 7.6. The patient remains on Decadron 6 mg IV every 24 hours. The patient is also on anticoagulation and is currently receiving Eliquis. I'm going to resume Eliquis treatment following his procedures knowing that the patient had pulmonary embolism at a time of his admission. He remains on empiric antibiotic coverage with IV Zosyn. This is covering MSSA in his sputum. The blood culture on 2 separate occasions from 11/06/2021 came back positive for coagulase-negative staph. His pro-calcitonin level is low at 0.14 and the white cell count currently is at 7.7 and the patient is currently on no pressors. The renal function is stable with a BUN of 16 and a creatinine of 0.5 and a sodium level is at 137. The patient is receiving enteral feeding for nutritional support and currently the feeding will be restarted after insertion of a PEG tube. He was receiving vital high protein. Has been receiving also Lasix dose is 40 mg IV every 24 hours. Overall fluid balance has been positive on this patient in order of 3 L over the past 24 hours. 11/12/2021, the patient underwent a tracheostomy tube insertion and he is postop day #1. The procedure was done on 11/11/2021. The patient has a Bivona tracheostomy tube in place for now and the procedure was done without any c omplication and the patient has no significant leaks around the tube. Following this procedure, the patient was taken off the paralytics and the patient is currently off Nimbex. He is still on propofol which is running at 60 mcg/kg per minute and fentanyl is running at 3 mcg/kg/h. He is very deeply sedated at this point in time. In fact he is not triggering the mechanical ventilator. He is on assist control mode at the rate of 26, tidal volume of 400, FiO2 at 40% with a PEEP of 14. His peak airway pressure was 40 earlier today with a static pressure of 38. Based on that, I dropped the PEEP down to 12 and I dropped a respiratory rate down to 22. The morning blood gases showed a pH of 7.38 with a pCO2 of 57 and pO2 of 61. Pulse ox on the monitor is in order of 95%. Chest x- ray shows no complications from the tracheostomy tube insertion. The patient continues to have diffuse bilateral pulmonary infiltrates. No evidence of any pneumomediastinum. No evidence of any subcutaneous emphysema. There is a tiny right apical pneumothorax on today's chest x-ray which is in the order of 5%. The patient is back on anticoagulation with Eliquis regarding his pulmonary embolism. He is taking 5 mg of Eliquis twice a day. He remains on Decadron 6 mg IV every 24 hours. IV fluids are in the form of normal saline at the rate of 20 mL an hour. Enteral feeding was restarted today in the form of vital high protein at the rate of 23 mL an hour. In terms of his blood work, the patient has a white cell count of 6.7 with a hemoglobin of 9.9. Platelet counts are stable at 209. The electrolytes all within normal limits. He has a BUN of 55, 15 and a creatinine of 0.55. Electrolytes are normal. Sodium is at 137. In terms of his fluid balance, the patient was receiving Lasix 40 mg IV every 24 hours. His fluid balance is still positive. His urine output is in order of 40 mL an hour. He does have some ongoing third spacing and edema in all 4 extremities. He remains on IV Zosyn regarding MSSA in his sputum. 14 2021, the patient is being seen for a follow-up. This morning, the patient is sedated and paralyzed. Note that was able to take the paralytics of the patient. Nevertheless, postop day #1 following his tracheostomy, the patient had an episode of epistaxis. This was quite a significant events during which the patient had to be suctioned. No packing was done. Were not sure where the blood was coming out. He has copious amount of blood coming from his mouth and nose. The tracheostomy was clean. No blood was coming out of the tracheostomy tube. Anticoagulation was held for 24 hours. The patient was given aspirin and TX a intranasally. Ultimately, the bleeding stopped. I'm contemplating of restarting anticoagulation again. That evaluation has been on hold since yesterday. This morning, the patient has no bleeding. He is calm and comfortable. He is sedated and paralyzed. He is currently on a combination of propofol which is running at 50 mcg/kg per minute and the patient is also on fentanyl at 2 mcg/kg/h and the patient is also Nimbex at 2 mcg/kg/m. Chest x- ray shows a tiny less than 5% right apical pneumothorax. Tracheostomy tube is in a good location. He remains on a mechanical ventilator. He is on a PEEP of 14 with an FiO2 of 40% and a tidal volume is currently at 400 with a rate of 26. Peak airway pressures at 31. Blood gases from today shows a pH of 7.37 with a pCO2 of 61 and pO2 of 86. No significant orotracheal secretions. No subcutaneous emphysema. He remains on Decadron. IV fluids are currently at KVO. He is receiving vital high protein at the rate of 23 mL an hour. Electrolytes from today are all within normal limits. Normal renal function. Hemoglobin stable at 9.9. The white cell count currently is at 9.2. He remains on IV Zosyn regarding MSSA in his sputum. Coagulation profile is normal. His d-dimer currently is at 8. The patient remains on Levemir insulin for blood sugar control. The patient is also receiving daily Lasix. Overall fluid balance has been +833 mL 11/14/2021, the patient was in extreme stable condition postop day #2 following tracheostomy. Acutely, the patient developed massive amount of bleeding from his tracheostomy. The bleeding was quite extensive and he was noted that the patient was bleeding around the tracheostomy stoma and subsequently the bleeding extended into his airways. A quick bronchoscopic evaluation was done as the patient was losing his volume study showed significant amount of clots within the airways. This was preventing further ventilation. I called the general surgeon and he was at the bedside. I called anesthesia and there are at the bedside. Under further discussions, I decided to remove the tracheostomy tube. I intubated the patient by a #8 orotracheal tube. Intervention process was quite difficult as the patient has copious amount of blood in his airways. Weren't able to inserted and the position of the tube was confirmed by a bronchoscope. Following that, the surgeon underwent an exploration of the tracheostomy surgical wound site. Adequate hemostasis was achieved and the bleeders were cauterized and ligated. TXA was applied. Surgicel was applied and the bleeding is being was stopped. Also, case and so was ordered during the process. Anticoagulation will be obviously discontinued from this point in bertram e. Meanwhile, the patient remained hemodynamically stable. He did have some few bouts of desaturation during the process and current pulse ox is around 99%. He is currently on propofol which is currently at 25 mcg/kg per minute. The patient is also on Nimbex at 2 mcg/kg per minute. The patient is on fentanyl at 4 mcg/kg/h. He remains on a mechanical ventilator. She is on assist-control mode with tidal volume of 400, FiO2 is currently is at on the percent, PEEP is currently at 10 and the patient's respiratory rate is currently in at 22. Peak airway pressures around 41. Chest x-ray has been ordered and this is to be completed. During the process, the patient became also hypertensive. He is currently on Celebrex drip which is running at 14 mg an hour. The patient remains on Decadron. IV fluids are still at KVO. She will feeds were briefly placed on hold due to ongoing complications. The patient remains on IV Zosyn regarding his MSSA in his sputum. Blood work from today shows a white cell count of 9 with a hemoglobin of 10.9. His coagulation profile was essentially within normal limits. His d-dimer from yesterday was at 8.4. Blood gases from earlier this morning showed a pH of 7.43 with a pCO2 of 55 and pO2 of 70 and this was on FiO2 of 40%. A follow-up blood. Will be obtained. Morning labs are all within normal limits with a mean of 16 and a creatinine of 0.38 and a sodium level of 138. Inflammatory markers were not checked today. Earlier this morning, the chest x-ray that was done on this patient showed no significant changes. There was bilateral multifocal pulmonary infiltrates consistent with his underlying pneumonia. Tracheostomy tube was in a good location. No significant change from today x-ray done earlier. He did have a stable tiny right apical pneumothorax which persisted on today's chest x-ray. Objective - Vital Signs Vital signs: Vital Signs Temp 97.8 F 11/14/21 04:00 Pulse 56 L 11/14/21 08:00 Resp 22 11/14/21 08:00 BP 132/78 11/14/21 08:00 Pulse Ox 95 11/14/21 08:00 Intake & Output 11/13/21 11/14/21 11/14/21 18:59 06:59 18:59 Intake Total 1907.841 9896.011 277.503 Output Total 1965 505 30 Balance -612.925 586.011 247.503 Weight 129.2 kg 128.8 kg Intake: IV 276 276 23 0.9 Normal Saline @ 20 mL 240 240 20 /hr KVO Pressure bag 36 36 3 Intake, IV Titration 844.075 615.011 244.503 Amount Cisatracurium 200 mg In 279.60 119.880 50.832 Sodium Chloride 0.9% 180 ml @ 1.5 MCG/KG/MIN 10.8 mls/hr IV .[id number] ON LICENSE OF [facility] Rx #:[id number] fentaNYL (PF) 2,500 mcg 166.012 156.758 109.949 In Sodium Chloride 0.9% 200 ml @ 0.5 MCG/KG/HR 4. 082 mls/hr IV .Q24H [facility] Rx#:[id number] propofoL 1,000 mg In 398.463 338.373 83.722 Empty Bag 1 bag @ Titrate IV .Q0M [facility] Rx#: [id number] Tube Feeding 172 110 10 Other 60 90 Output: Urine 1965 505 30 Stool 0 Other: Voiding Method Indwelling Catheter Indwelling Catheter # Bowel Movements 1 ABP, PAP, CO, CI - Last Documented Arterial Blood Pressure 142/75 - Exam GENERAL EXAM: Alert, restless 61-year-old male patient, the patient remains intubated on a mechanical ventilator , trach was removed HEAD: Normocephalic. EYES: Normal reaction of pupils, equal size. NOSE: Clear with pink turbinates. THROAT: No erythema or exudates. He has a Bivona tracheostomy tube in place. Exit site is clean. No evidence of any air leak. No evidence of any bleeding around the tracheostomy stoma. The wound is packed and there is no active bleeding NECK: No masses, no JVD. CHEST: No chest wall deformity. LUNGS: Equal air entry with coarse crackles in the posterior bases. CVS: S1 and S2 normal with no audible murmur, regular rhythm. ABDOMEN: No hepatosplenomegaly, normal bowel sounds, no guarding or rigidity. The patient has also had a PEG tube in place which is currently intact. No evidence of any bleeding around the PEG tube. SPINE: No scoliosis or deformity SKIN: No rashes CENTRAL NERVOUS SYSTEM: No focal deficits, tone is normal in all 4 extremities. EXTREMITIES: There is peripheral edema. No clubbing, no cyanosis. Peripheral pulses are intact. - Labs CBC & Chem 7: 11/14/21 03:45 11/14/21 03:45 Labs: Abnormal Lab Results - Last 24 Hours (Table) 11/13/21 11/13/21 11/13/21 Range/Units 11:19 16:17 21:28 RBC (4.30-5.90) m/uL Hgb (13.0-17.5) gm/dL Hct (39.0-53.0) % ABG pCO2 (35-45) mmHg ABG pO2 (83-108) mmHg ABG HCO3 (21-25) mmol/L ABG Total CO2 (19-24) mmol/L Potassium (3.5-5.1) mmol/L Carbon Dioxide (22-30) mmol/L Creatinine (0.66-1.25) mg/dL POC Glucose (mg/dL) 184 H 152 H 111 H (75-99) mg/dL Calcium (8.4-10.2) mg/dL 11/13/21 11/14/21 11/14/21 Range/Units 23:31 03:45 03:45 RBC 3.39 L (4.30-5.90) m/uL Hgb 10.9 L (13.0-17.5) gm/dL Hct 33.6 L (39.0-53.0) % ABG pCO2 (35-45) mmHg ABG pO2 (83-108) mmHg ABG HCO3 (21-25) mmol/L ABG Total CO2 (19-24) mmol/L Potassium 3.3 L (3.5-5.1) mmol/L Carbon Dioxide 35 H (22-30) mmol/L Creatinine 0.38 L (0.66-1.25) mg/dL POC Glucose (mg/dL) 101 H (75-99) mg/dL Calcium 8.3 L (8.4-10.2) mg/dL 11/14/21 11/14/21 Range/Units 05:37 09:28 RBC (4.30-5.90) m/uL Hgb (13.0-17.5) gm/dL Hct (39.0-53.0) % ABG pCO2 55 H (35-45) mmHg ABG pO2 70 L (83-108) mmHg ABG HCO3 37 H (21-25) mmol/L ABG Total CO2 39 H (19-24) mmol/L Potassium (3.5-5.1) mmol/L Carbon Dioxide (22-30) mmol/L Creatinine (0.66-1.25) mg/dL POC Glucose (mg/dL) 148 H (75-99) mg/dL Calcium (8.4-10.2) mg/dL Assessment and Plan Plan: 1 Acute hypoxic respiratory failure related to acute COVID-19 related pneumonia, patient presented to the emergency department on 10/23/2021 with 2 week history of symptoms, patient is outside the window for Remdesivir, he is a non-vaccinated adult. The patient was transferred to the intensive care unit , the patient was started on BiPAP and ultimately failed BiPAP and the patient was intubated and placed on a mechanical ventilator. The patient has been on mechanical ventilator for an extended period of time since 10/30/2022. The patient underwent tracheostomy tube insertion on 11/10/2021. This was not associated with significant amount of bleeding around the tracheostomy stoma. Due to the massive bleeding that was encountered today, the tracheostomy was removed and the patient was reintubated. The surgical wound was explored and appropriate dressing was applied and hemostasis was achieved. 2 Bilateral pulmonary emboli on computed tomography scan 10/26/2021. The patient is currently off anticoagulation. Kcentra was given to reverse his Eliquis effects 3 Diabetes mellitus type 2 with diabetic neuropathy currently on Levemir insulin for blood sugar control 4 right apical pneumothorax, approximately 5% 5 epistaxis 6 Obstructive sleep apnea with previous history of UPPP 7 History of right eye melanoma with multiple surgeries 8 Previous history of CVA 9 Rheumatoid arthritis 10 History of gout 11 Previous history of MRSA infection in the wound on his back 12 Mild lactic acidosis, improved with IV hydration 13 Elevated inflammatory markers related to acute COVID-19 pneumonia 14 BPH with previous history of TURP 15 pneumomediastinum and subcutaneous emphysema, complications of COVID 19 related pneumonia, stable 16 tiny right apical pneumothorax less than 5% 17 sinus bradycardia 18 hypertension 19 hyperlipidemia Plan: Continue ventilator support Continue the patient on the current ventilatory settings with a rate of 22, tidal volume of 400 and FiO2 of 100% and a PEEP of 10, awaiting a follow-up blood gases and necessity ventilator changes will be done and the patient will also have a chest x-ray post intubation. Obtain a follow-up blood work and Doppler of the lower extremities Consulted vascular surgery regarding the possibility of a IVC filter placement The patient will be taken off anticoagulation for now Keep the sedation and paralysis for another 24 hours and give the patient paralytic holiday probably in the evening or first thing in the morning Keep Zosyn Continue Decadron Enteral feeding for nutritional support will be restarted Cleviprex for BP control Levemir 20 U and a SS coverage monitor the sinus bradycardia Monitor PTX Monitor bleed Condition is critical . Critically care evaluation that was on a more than 30 minutes. Time with Patient: Greater than 30
[2021-11-14 09:55] LABS: ALT 57 U/L (4-49); AST 35 U/L (17-59); African American GFR (CKD) >90 (>60 ml/min/1.73 sqM); Albumin 2.8 g/dL (3.5-5.0); Alkaline Phosphatase 95 U/L (38-126); Anion Gap 4 mmol/L; Blood Urea Nitrogen 16 mg/dL (9-20); Calcium 8.4 mg/dL (8.4-10.2); Carbon Dioxide 33 mmol/L (22-30); Chloride 103 mmol/L (98-107); Glucose 154 mg/dL (74-99); Non-African American GFR(CKD) >90 (>60 ml/min/1.73 sqM); Potassium 3.4 mmol/L (3.5-5.1); Sodium 140 mmol/L (137-145); Total Protein 6.2 g/dL (6.3-8.2)
[2021-11-14 10:08] LABS: INR 0.9 (<1.2)
[2021-11-14 10:10] LABS: ABG Base Excess 9.4 mmol/L; ABG HCO3 35 mmol/L (21-25); ABG PCO2 64 mmHg (35-45); ABG PH 7.34 (7.35-7.45); ABG PO2 259 mmHg (83-108); ABG TCO2 37 mmol/L (19-24)
--- NOTE | 2021-11-14 10:15 | XR ---
EXAMINATION TYPE: XR chest 1V portable DATE OF EXAM: 11/14/2021 COMPARISON: 11/14/2021 HISTORY: ET tube placement TECHNIQUE: Single frontal view of the chest is obtained. FINDINGS: There is an ET tube approximately 2.6 cm above the dennis. There is a left-sided PICC line terminating in the SVC/RA junction. There are diffuse interstitial and alveolar infiltrates unchanged compared to previous. There is no pneumothorax or large pleural effusion. IMPRESSION: 1. ET tube 2.6 cm above the dennis. 2. No change in the diffuse lung infiltrates.
[2021-11-14] MEDS: hydrALAZINE HCL 20 MG/ML 1 ML VIAL IVP PRN (10:22)
[2021-11-14 10:27] LABS: Partial Thromboplastin Time 21.1 sec (22.0-30.0)
[2021-11-14] MEDS: ASCORBIC ACID 500 MG TAB PO SCH (10:48)
[2021-11-14] MEDS: PREGABALIN 100 MG CAP PO SCH ×2 (10:49→19:45)
[2021-11-14] MEDS: bisacodyL 10 MG SUPP RECTAL SCH ×2 (10:49→19:44)
[2021-11-14] MEDS: LACTULOSE 20 GM/30 ML CUP PO SCH ×2 (10:49→19:44)
[2021-11-14] MEDS: CHLORHEXIDINE GLUCONATE 15 ML CUP MUCOUS MEM SCH ×2 (10:49→20:00)
[2021-11-14] MEDS: SERTRALINE 50 MG TAB PO SCH (10:49)
[2021-11-14] MEDS: CHOLECALCIFEROL 25 MCG (1000 IU) TABLET PO SCH (10:49)
[2021-11-14] MEDS: DOCUSATE ORAL SOLN 100 MG/10 ML CUP PO SCH ×2 (10:49→19:44)
[2021-11-14] MEDS: ZINC SULFATE 220 MG CAP PO SCH (10:50)
--- NOTE | 2021-11-14 11:03 | US ---
EXAMINATION TYPE: US venous doppler duplex LE DATE OF EXAM: 11/14/2021 10:51 AM COMPARISON: US 2020 CLINICAL HISTORY: CoVID elevated d dimer. Exam done portable in ICU SIDE PERFORMED: Bilateral TECHNIQUE: The lower extremity deep venous system is examined utilizing real time linear array sonog dary with graded compression, doppler sonography and color-flow sonography. VESSELS IMAGED: Common Femoral Vein Deep Femoral Vein Greater Saphenous Vein * Femoral Vein Popliteal Vein Small Saphenous Vein * Proximal Calf Veins (* superficial vessels) Limited visualization of bilateral mid and distal femoral vein due to patient body habitus Right Leg: Appears negative for DVT Left Leg: Appears negative for DVT IMPRESSION: Exam is limited due to the patient's body habitus. Although there is no definite evidence of DVT, the mid and distal femoral veins are not well evaluated.
[2021-11-14 11:34] LABS: Glucose,Whole Blood 165 mg/dL (75-99)
--- NOTE | 2021-11-14 13:35 | P.PCN ---
Date of Procedure: 11/14/21 Preoperative Diagnosis: Acute bleeding from tracheostomy stoma Postoperative Diagnosis: Intubation Flexible bronchoscopy Procedure(s) Performed: IntubationRemoval of a tracheostomy tube, Intubation Anesthesia: GUILHERME Surgeon: Shirley Teague Estimated Blood Loss (ml): 100 Pathology: other Condition: stable Disposition: ICU Operative Findings: 61-year-old male patient who is currently being treated in intensive care unit for coronary. Pneumonia and respiratory failure. The patient was also given a tracheostomy tube for respiratory support. The tracheostomy tube was inserted by general surgery on 2. The patient also has history of pulmonary embolism. The patient was receiving anticoagulation with Eliquis. He encountered an episode of epistaxis yesterday. This morning, he acutely, the patient developed bleeding around the tracheostomy stoma and copious amount of blood was pouring from the sites. A quick bronchoscopic evaluation was done and was noted that some of the blood was going into the trachea as the patient was developing clots and over the next few minutes and became very difficult to ventilate the patient the patient was not returning his lung volumes back while being on a mechanical ventilator. General surgery was called to the scene. Anesthesia was called to the scene. We collectively made decision to remove the tracheostomy tube and identify the source of bleed. At that point, I intubated this patient. I used a #4 laryngoscope. Visualized vocal cords. Visualized epiglottis. There was copious amount of blood that was suctioned out under direct visualization. Following that, I was able to pass a #8 orotracheal tube through the vocal cords. As the tube was advanced, the tracheostomy tube was removed. The ET tube was further advanced and was secured in place. A bronchoscopy was done through the orotracheal tube and copious amount of blood clots were aspirated from the distal trachea. At the completion of the procedure, I was able to ventilate the patient can noted the patient had some minor desaturations throughout the procedure. No masses desaturations were encountered. The patient remained hemodynamically stable. After removal of the tracheostomy tube, the ones was opened by general surgery. The sutures were cut off and one was exposed. TXA was applied to the subcutaneous bleeding sites and hemostasis was achieved. The surgery will undergo further evaluation of the wound and control of bleed. Chest x-rays to follow.
[2021-11-14] MEDS: PIPERACILLIN-TAZOBACTAM 3.375 GM in SODIUM CHLORIDE 0.9% 100 ML IVPB SCH ×2 (14:06→15:21)
--- NOTE | 2021-11-14 14:43 | P.PN ---
Progress Note - Text Progress Note Date: 11/14/21 Chief Complaint: Short of breath This is a pleasant 61-year-old patient, chronic stable medical conditions include diabetes, hypertension, hyperlipidemia, osteoarthritis, peripheral neuropathy, chronic gout. Patient presents with increasing shortness of breath. Cough. Clear sputum. Fever and chills. Tired rundown decrease appetite and diarrhea about 2 times a day. Patient tested positive for COVID-19 on October 09. His initial rapid COVID-19 was negative. In the send out came back positive. Patient did not take the vaccine against COVID-19. He is on 8 L of oxygen this morning. He is outside the window for Remdesivir. Admitted with COVID 19 pneumonitis, acute hypoxic respiratory failure. Started on Decadron. IV fluids. October 24: Feeling a bit better. Short of breath. 92% on 11 L. Did eat some. Sitting at the edge of the bed. A bit tired October 25: Short of breath. Cough. Oral intake fair. On 11 L of nasal cannula. Did sit up in a chair. October 26: Short of breath. Oral intake fair. Cough. 11 L nasal cannula. Dexamethasone. Chest CTA showing bilateral pulmonary embolism. October 27: Short of breath. Eating fair. 15 L nasal cannula. Tired. October 28: Remains on 15 L of nasal cannula. Eating about 50%. Short of breath. Tired. Trying to change his positions in bed. Including prone. October 29: Patient more short of breath and tired. Pulse oxing 87% on 15 L. Laying in bed. Eating around 50%. Late in the afternoon seen by pulmonary and patient be moved to ICU. October 30: Patient moved to ICU yesterday. Because of more respiratory compromise. Intubated earlier today. Drips include Diprivan, fentanyl, Nimbex, Levophed. Sinus rhythm. FiO2 19 a PEEP of 18. October 31: ICU: Ventilator/FiO2 19 a PEEP of 18. Drips include MX, propofol, fentanyl. Epinephrine. November 01: ICU: On the ventilator FiO2 55 PEEP of 16. Drips included propofol, Nimbex, fentanyl. 2 feeding at 29 mL an hour. November 02: ICU. Ventilator 45/16. Drips include fentanyl, propofol, Nimbex. 2 feeding at 20 mL an hour. November 03: ICU. Ventilator 45/12. Drips include fentanyl, propofol. 2 feeding at 29 mL an hour. November 04: ICU. Overnight patient went into respiratory distress. X-ray was looking worse. Patient put back on 100% FiO2 and a PEEP of 16. Patient is put back on drips of currently include fentanyl, propofol, Nimbex. 2 feeding. Sedated November 05: ICU: Current drips include fentanyl, propofol, Nimbex. Ventilator: 75/16. 2 feeding at 30 mL an hour. Sinus rhythm. Blood cultures coming back coagulase-negative/staph epidermidis likely contaminant November 06: ICU: Earlier today attempt was made to cut back on the Nimbex. Patient became restless. Had to be put back on the same. Current drips include fentanyl, Nimbex, propofol. FiO2 55 and a PEEP of 16. Telemetry shows sinus rhythm. 2 feeding at 30 mL an hour. November 07: ICU: at the bedside. Ventilator: 55/16. Telemetry: Sinus rhythm. Drips include fentanyl, propofol, Nimbex. 2 feeding at 27 mL an hour. November 08: ICU: Ventilator: 55/16. Drips included propofol, fentanyl, Nimbex. [address] Sinus rhythm. November 09: ICU. Ventilator 55/16. Drips included propofol, fentanyl, Nimbex. Nimbex is being titrated down. 2 feeding. Sinus rhythm. Patient's daughter the bedside. Updated. November 10: ICU. Ventilator 55/60. Drips included propofol, fentanyl, Nimbex. 2 feeding has been held because of pending tracheostomy and PEG tube. Sinus rhythm. November 11: ICU: Ventilator 40/40. Drips include propofol and fentanyl. Often Nimbex. Patient received a tracheostomy and a PEG tube yesterday. 2 feeding will be started this afternoon. Sinus rhythm. Sedated. Off Nimbex November 12: ICU. On the ventilator with FiO2 40 and a PEEP of 12. Sinus rhythm. Drips include fentanyl, propofol, Nimbex, cleviprex. 2 feeding at 23 mL an hour. November 13: ICU. Ventilator: 40/10. Drips include fentanyl, propofol, Nimbex. 2 feeding at 10 mL an hour. Patient had a episode of large epistaxis. Suction was done. November 14: ICU. Patient had no bleeding around the tracheostomy site. Patient had desaturated. Tracheostomy had to be removed. The retail merchandising coordinator, surgeon, anesthesia@tibia the bedside. Bronchoscopy was done. Blood was removed from the trachea and the bronchus. Patient put back on the ventilator. Currently 50/10. Drips include fentanyl, propofol, cleviprex. Given FFP. Review of systems: Intubated. Anticoagulation obviously has been discontinued. younger daughter the bedside. Updated. Active Medications Acetaminophen (Acetaminophen Tab 325 Mg Tab) 650 mg PO Q6HR PRN PRN Reason: Mild Pain or Fever > 100.5 Last Admin: 10/29/21 15:46 Dose: 650 mg Documented by: Albuterol Sulfate (Albuterol Hfa Inhaler) 2 puff INHALATION RT-QID PRN PRN Reason: Shortness Of Breath Last Admin: 11/14/21 08:06 Dose: 2 puff Documented by: Artificial Tears (Artificial Tears-Hypromellose Drops 15 Ml Btl) 2 drops BOTH EYES Q4HR [facility] Last Admin: 11/14/21 14:07 Dose: 2 drops Documented by: Ascorbic Acid (Ascorbic Acid 500 Mg Tab) 1,000 mg PO DAILY [facility] Last Admin: 11/14/21 10:48 Dose: Not Given Documented by: Bisacodyl (Bisacodyl 10 Mg Supp) 10 mg RECTAL BID [facility] Last Admin: 11/14/21 10:49 Dose: Not Given Documented by: Chlorhexidine Gluconate (Chlorhexidine Gluconate 15 Ml Cup) 15 ml MUCOUS MEM BID [facility] Last Admin: 11/14/21 10:49 Dose: Not Given Documented by: Cholecalciferol (Cholecalciferol 25 Mcg (1000 Iu) Tablet) 25 mcg PO DAILY [facility] Last Admin: 11/14/21 10:49 Dose: Not Given Documented by: Dexamethasone Sodium Phosphate (Dexamethasone Sod Phosphate 10 Mg/Ml 1 Ml Vial) 6 mg IVP DAILY [facility] Last Admin: 11/13/21 08:22 Dose: 6 mg Documented by: Docusate Sodium (Docusate Oral Soln 100 Mg/10 Ml Cup) 100 mg PO BID [facility] Last Admin: 11/14/21 10:49 Dose: Not Given Documented by: Furosemide (Furosemide 10 Mg/Ml 4 Ml Vial) 40 mg IV DAILY [facility] Last Admin: 11/13/21 08:22 Dose: 40 mg Documented by: Hydralazine HCl (Hydralazine Hcl 20 Mg/Ml 1 Ml Vial) 20 mg IVP Q4HR PRN PRN Reason: Blood Pressure - High SBP >160 Last Admin: 11/14/21 10:22 Dose: 20 mg Documented by: Propofol 1,000 mg/ IV Solution 100 mls @ 0 mls/hr IV .Q0M [facility]; Protocol Last Admin: 11/14/21 10:02 Dose: 75 mcg/kg/min, 57.96 mls/hr Documented by: Piperacillin Sod/Tazobactam (Sod 3.375 gm/ Sodium Chloride) 100 mls @ 25 mls/hr IVPB Q8HR [facility] Last Admin: 11/14/21 14:06 Dose: Not Given Documented by: Cisatracurium Besylate 200 mg/ (Sodium Chloride) 200 mls @ 10.8 mls/hr IV .[id number] [facility]; Protocol Last Titration: 11/14/21 10:01 Dose: 4 mcg/kg/min, 28.8 mls/hr Documented by: Fentanyl Citrate 2,500 mcg/ (Sodium Chloride) 250 mls @ 4.082 mls/hr IV .Q24H [facility]; Protocol Last Admin: 11/14/21 10:00 Dose: 4 mcg/kg/hr, 32.659 mls/hr Documented by: Clevidipine 25 mg/ IV Solution 50 mls @ 2 mls/hr IV .Q24H [facility]; Protocol Last Titration: 11/14/21 10:22 Dose: 20 mg/hr, 40 mls/hr Documented by: Insulin Aspart (Insulin Aspart (Novolog) 100 Unit/Ml Vial) 0 unit SQ Q4HR [facility]; Protocol Last Admin: 11/14/21 10:48 Dose: Not Given Documented by: Insulin Detemir (Insulin Detemir (Levemir) 100 Unit/Ml Syr) 20 unit SQ HS [facility] Last Admin: 11/13/21 21:43 Dose: 20 unit Documented by: Lactulose (Lactulose 20 Gm/30 Ml Cup) 10 gm PO BID [facility] Last Admin: 11/14/21 10:49 Dose: Not Given Documented by: Miscellaneous Information (Potassium Replacement Protocol 1 Each Misc) 1 each MISCELLANE DAILY PRN; Protocol PRN Reason: Per Protocol Pregabalin (Pregabalin 100 Mg Cap) 200 mg PO BID [facility] Last Admin: 11/14/21 10:49 Dose: Not Given Documented by: Sertraline HCl (Sertraline 50 Mg Tab) 50 mg PO DAILY [facility] Last Admin: 11/14/21 10:49 Dose: Not Given Documented by: Zinc Sulfate (Zinc Sulfate 220 Mg Cap) 220 mg PO DAILY [facility] Last Admin: 11/14/21 10:50 Dose: Not Given Documented by: Social history: Patient is on Social Security. Does not smoke or drink alcohol. Patient's daughters family lives with him. Family history: Father at the age of 40 with heart attack Physical examination: VITAL SIGNS: 98.4, 98, 22, 150/65, 93% on the ventilator GENERAL: Laying in bed, intubated. PEG tube . Tracheostomy removed. LUNGS: Respiratory rate increased,. PSYCH: Unable to assess Rest of the exam per nursing and pulmonary INVESTIGATIONS, reviewed in the clinical context: November 14: White count 15.9 hemoglobin 11.6 platelets 318 d-dimer 7.69 potassium 3.4 creatinine 0.43 November 13: White count 9.2 hemoglobin 9.9 potassium 3.7 creatinine 0.5 November 12: White count 98.1 hemoglobin 13.1 platelets 89 potassium 3.9 creatinine 0.42 CRP 5.9 November 11: White count 7.7 hemoglobin 10.6 platelets 218 d-dimer 7.84 potassium 4 BUN 16 creatinine 0.5 to. Chest x-ray film personally reviewed by me: Scattered infiltrates. Tracheostomy tube. Telemetry: Personally reviewed by me sinus rhythm November 10: White count 6.6 1110.1 platelets 239 potassium 3.9 creatinine 0.61. Chest x-ray and telemetry personally reviewed by me. November 09: D-dimer 7.03 pro-calcitonin 0.14 November 08: White count 7.5 hemoglobin 10 point potassium 3.5 creatinine 0.516.Chest x-ray film personally reviewed by me-scattered infiltrates November 07: White count 7.60 globin 10.1 platelets 269 potassium 3.4 creatinine 0.5 to AST 30 ALT 75 November 06: WBC 9.4 hemoglobin 9.8 platelets 250 potassium 3.6 creatinine 0.48 AST 36 ALT 91 November 05: WBC 11 hemoglobin 10.4 platelets 218 potassium 4 creatinine 0.5 to Blood culture positive for Staphylococcus epidermidis/coagulates negative. November 04: WBC 13.1 hemoglobin 11.6 potassium 4.6 creatinine 0.53. Chest x-ray film personally reviewed by me-bilateral infiltrates November 03: White count 11.9 hemoglobin 12 platelets 266 potassium 4.2 creatinine 0.55 AST 63 ALT 64 pro-calcitonin 0.12 November 02: White count 8 hemoglobin 10.5 potassium 4.4. 23 creatinine 0.5 to November 01: White count 11.1 hemoglobin 11.6 platelets 203 d-dimer 10.6 potassium 4.7 creatinine 0.73 October 31: White count 12.1 hemoglobin 12.2 platelets 240 potassium 4.8 creatinine 0.61 October 30: White count 12.9 hemoglobin 13.1 potassium 5.6 creatinine 0.69 October 29: White count 13.1 hemoglobin 13.8 d-dimer 16.2 potassium 4.7 creatinine 0.76 October 28: D-dimer 13.4 to October 26: D-dimer 8.48 CRP 24 Chest CTA [October 26: biLateral pulmonary embolism Doppler ultrasound lower extremity: Negative for DVT October 24: White count 9.7 hemoglobin 15.3 platelets 221 d-dimer 1.93 progression 4.2 creatinine 0.71 CRP 5.5 pro-calcitonin 0.08 White count 9.9 hemoglobin 16 platelets 234 d-dimer 0.98 sodium 141 potassium 3.4 creatinine 0.81 Lactic acid 2.9 LDH 1422 CRP 7.5 EKG tracing personally reviewed by me-normal sinus rhythm. Nonspecific ST segment changes. Chest x-ray film personally reviewed by me-bilateral infiltrates Assessment and plan: -Acute severe COVID 19 pneumonitis in a patient who did not take the COVID-19 vaccine: Slow to respond Dexamethasone, vitamin C, vitamin D, zinc. Patient's outside the window for Remdesivir. -Acute hypoxic respiratory failure from COVID-19: Slow to respond intubated October 30. FiO2 50 and a PEEP of 10 -Active bleeding around tracheostomy into the trachea and lungs. Status post bronchoscopy. Evacuation of large amounts of blood clot. Tracheostomy removed. Patient reintubated -Bilateral pulmonary embolism secondary to COVID-19 Eliquis -discontinued because of bleeding -Essential hypertension Lopressor 25 mg twice a day, -Diabetes mellitus type 2, on oral hypoglycemic, Levemir 20 units daily at bedtime. Follow Accu-Cheks -Chronic insomnia for medical conditions Elavil 50 mg daily at bedtime -Hyperlipidemia TriCor 48 mg daily -Hypoalbuminemia Acute phase reactant -Obstructive sleep apnea On CPAP at home -Diabetic peripheral neuropathy Lyrica 200 mg twice daily -Full code Drips : fentanyl , propofol . Precedex, Ventilator. Tracheostomy removed. Reintubated. Large bleeding with blood clots from the tracheostomy. Bedside bronchoscopy. Blood clots evacuated. Prognosis guarded
[2021-11-14] MEDS: DEXAMETHASONE SOD PHOSPHATE 10 MG/ML 1 ML VIAL IVP SCH (14:56)
[2021-11-14] MEDS: FUROSEMIDE 10 MG/ML 4 ML VIAL IV SCH (15:07)
[2021-11-14 15:16] LABS: Glucose,Whole Blood 256 mg/dL (75-99)
[2021-11-14] MEDS: CISATRACURIUM 200 MG in SODIUM CHLORIDE 0.9% 180 ML IV SCH (15:25)
[2021-11-14] MEDS: POTASSIUM CHLORIDE 20 MEQ in WATER FOR INJECTION 1 100ML.BAG IVPB SCH ×2 (16:09→17:52)
[2021-11-14 17:17] LABS: Glucose,Whole Blood 254 mg/dL (75-99)
[2021-11-14 19:46] LABS: Glucose,Whole Blood 242 mg/dL (75-99)
[2021-11-14] MEDS: INSULIN DETEMIR (LEVEMIR) 100 UNIT/ML SYR SQ SCH (20:00)
[2021-11-14 22:18] LABS: HCT 27.2 % (39.0-53.0); Hypochromasia Slight; MCH 32.3 pg (25.0-35.0); MCHC 32.6 g/dL (31.0-37.0); MCV 99.2 fL (80.0-100.0); Macrocytosis Slight; Mean Platelet Volume 7.8; Platelet Count 231 k/uL (150-450); RBC 2.74 m/uL (4.30-5.90); RDW 14.9 % (11.5-15.5); WBC 10.6 k/uL (3.8-10.6)
[2021-11-14 22:21] LABS: HGB 8.9 gm/dL (13.0-17.5)
[2021-11-15 00:03] LABS: Glucose,Whole Blood 137 mg/dL (75-99)
[2021-11-15] MEDS: INSULIN ASPART (NovoLOG) 100 UNIT/ML VIAL SQ SCH ×6 (00:03→20:48)
[2021-11-15] MEDS: PIPERACILLIN-TAZOBACTAM 3.375 GM in SODIUM CHLORIDE 0.9% 100 ML IVPB SCH ×4 (00:03→23:46)
[2021-11-15] MEDS: ARTIFICIAL TEARS-HYPROMELLOSE DROPS 15 ML BTL BOTH EYES SCH ×7 (00:04→23:46)
[2021-11-15] MEDS: CLEVIDIPINE BUTYRATE 25 MG in EMPTY BAG 1 BAG IV SCH ×9 (00:11→10:41)
[2021-11-15] MEDS: hydrALAZINE HCL 20 MG/ML 1 ML VIAL IVP PRN ×3 (00:11→10:14)
[2021-11-15] MEDS: CISATRACURIUM 200 MG in SODIUM CHLORIDE 0.9% 180 ML IV SCH ×2 (00:56→06:41)
[2021-11-15] MEDS: fentaNYL (PF) 2,500 MCG in SODIUM CHLORIDE 0.9% 200 ML IV SCH ×4 (02:43→21:53)
[2021-11-15 03:49] LABS: Glucose,Whole Blood 194 mg/dL (75-99)
[2021-11-15 04:29] LABS: HCT 32.9 % (39.0-53.0); HGB 10.9 gm/dL (13.0-17.5); Hypochromasia Slight; MCH 33.3 pg (25.0-35.0); MCV 100.9 fL (80.0-100.0); Macrocytosis Slight; Mean Platelet Volume 7.6; Platelet Count 325 k/uL (150-450); Poikilocytosis Slight; RBC 3.26 m/uL (4.30-5.90); WBC 16.7 k/uL (3.8-10.6)
[2021-11-15 05:01] LABS: African American GFR (CKD) >90 (>60 ml/min/1.73 sqM); Anion Gap 7 mmol/L; Blood Urea Nitrogen 14 mg/dL (9-20); Calcium 8.1 mg/dL (8.4-10.2); Carbon Dioxide 30 mmol/L (22-30); Chloride 99 mmol/L (98-107); Glucose 194 mg/dL (74-99); Non-African American GFR(CKD) >90 (>60 ml/min/1.73 sqM); Potassium 4.2 mmol/L (3.5-5.1); Sodium 136 mmol/L (137-145)
[2021-11-15 05:09] LABS: ABG Base Excess 6.9 mmol/L; ABG HCO3 33 mmol/L (21-25); ABG Oxygen Saturation 94.2 % (94-97); ABG PCO2 68 mmHg (35-45); ABG PO2 76 mmHg (83-108); ABG TCO2 35 mmol/L (19-24); Allen Test Performed? Yes
--- NOTE | 2021-11-15 06:34 | XR ---
EXAMINATION TYPE: XR chest 1V portable DATE OF EXAM: 11/15/2021 COMPARISON: 11/14/2021 HISTORY: Shortness of breath TECHNIQUE: Single frontal view of the chest is obtained. FINDINGS: The diffuse small scattered airspace opacities are unchanged compared to previous consiste nt with acute pneumonia or pulmonary edema. There is no pneumothorax or large pleural effusion. The heart size is normal. ET tube is 3.7 cm above the dennis. There is been no change in position of the left-sided PICC line. IMPRESSION: ET tube 3.7 cm above the dennis. No change in the diffuse lung infiltrates is described.
[2021-11-15 08:19] LABS: Glucose,Whole Blood 229 mg/dL (75-99)
--- NOTE | 2021-11-15 08:54 | P.PN ---
Subjective Progress Note Date: 11/15/21 61-year-old male patient with past medical history of diabetes mellitus type 2 with diabetic neuropathy, hypertension, hyperlipidemia, previous history of CVA, rheumatoid arthritis, obstructive sleep apnea S/P UPPP, history of right eye melanoma with previous surgeries, BPH with previous TURP, chronic lower extremity edema, cellulitis, gout, presented to the emergency department on 10/23/2021 at 240 3 in the morning with complaints of severe shortness of breath, cough, congestion. Patient states he has had symptoms since October 09, initially was tested via rapid COVID-19 PCR test which was negative however the send out PCR test came back positive. Patient was transferred to the intensive care on 10/29/2022, and was intubated in next day on 10/30/2022. On today's evaluation of 11/09/2021, the patient is being seen for a follow-up. He currently remains intubated, sedated and paralyzed, he is currently on assist control mode of ventilation with a rate of 32, tidal arm is 450, FiO2 of 55% and PEEP of 16. This morning's blood gas has been reviewed showing pO2 of 75, pCO2 of 44, and pH of 7.52. The patient's serum bicarb is currently at 35. The patient has developed some metabolic alkalosis as the patient is being diuresis with IV Lasix. The chest x-ray from today is showing adequate positioning of the orotracheal tube. The patient continues to have diffuse bilateral pulmonary infiltrates. There is loss in the left hemidiaphragm which is obviously silhouetted probably related to a left lower lobe pulmonary infiltration. Right lung infiltration seems to have improved compared to yesterday. Patient is currently on 0.9 at 20 ML per hour, fentanyl infusion at 2 mics per kilo per hr , diprivan at 60 mics per kilo per minute, Nimbex at 2 mics per kilo per minute He is tolerating his tube feedings, he is on vital high-protein at 23 with a goal of 23 and standard water flushes. Hemodynamically patient has been stable, he remains in sinus mechanism, not requiring any vasopressor support, he remains on antibiotics in the form of Zosyn for positive blood cultures, his last set of blood cultures from 11/06/2021 showed 2 coagulase-negative staph organisms, blood culture from the same day showed no growth, his sputum culture showed few PMNs, moderate gram-positive cocci, presumed staph. The Procal was 0.19, highest 0.31. Patient has been afebrile, hemodynamically he has been stable. Patient has received intermittent doses of diuretics. He currently remains on Decadron 6 mg daily, she is on Eliquis 5 mg twice daily for evidence of PE that was diagnosed during this admission. 2021, the patient is scheduled to undergo a tracheostomy tube and affect tube insertion by general surgery. This morning, the patient remains sedated and paralyzed. He remains on propofol which is currently running at 60 mg/kg per minute and the patient is also on fentanyl running at the rate of 2 g 60 mg an hour. and the patient is also Nimbex at 2 mcg/kg per minute. The patient remains on a mechanical ventilator. The patient remains on a volume cycle mode of mechanical ventilation with a tidal volume of 450 and this was dropped down to 400 yesterday with a respiratory rate of 28 and FiO2 is currently at 50% with a PEEP of 15. The patient's peak airway pressures around 40. Sodium of pressure has been around 38. Chest x-ray is unchanged and shows diffuse bi lateral pulmonary infiltrates. ET tube needs to be pushed him by another 1 cm as the patient's ET tube is sitting high up in the trachea. OG tube is in place. The patient also has a PICC line in the left upper extremity. The blood gases from today shows a pH of 7.42 with a pCO2 of 50 and a pO2 of 76. No significant orotracheal secretions. Pulse ox on a monitored in order of 97%. In terms of his COVID 19 treatment, the patient has been maintained on Decadron 6 mg IV every 24 hours. He did have abnormal blood cultures. Coagulase negative staph aureus and the blood on 2 separate blood cultures and the most recent sputum analysis was done on 11/06/2021 showed [place] and MSSA. Based on that, the patient has been covered with antibiotics and the patient is currently on Zosyn and vancomycin. The patient is also receiving Lasix 40 mg IV every 24 hours. Overall fluid balance on this patient over the past 24 hours has been +3 L. Note that the patient is also hypertensive on today's evaluation. He is on Lopressor for that. Side effects were easily used if needed for ongoing hype rtension. His most recent pro-calcitonin level was 0.19. The highest LEVEL WAS 0.31. HE REMAINS ON ANTICOAGULATION WITH ELIQUIS 5 MG BY MOUTH TWICE A DAY REGARDING PREVIOUS HISTORY OF PULMONARY EMBOLISM THAT WAS URGENTLY DIAGNOSIS SOME OF HIS ADMISSION. HE REMAINS ON LEVEMIR INSULIN 20 UNITS FOR BLOOD SUGAR CONTROL ALONG WITH ASCITES Coverage. Tube Feeds Are Currently on Hold Pending PEG and Trach Insertion. Earlier, the Patient Was Receiving Enteral Feeding and This Was in the Form of Vital High-Protein. On 2021, the patient is post tracheostomy tube insertion and the PEG tube in [facility] for prolonged mechanical ventilation and respiratory failure due to COVID 19 related pneumonia. This morning, the patient is comfortable and the patient is on propofol running at 60 mcg/kg per minute and the patient is also on fentanyl running at 3 mcg/kg/h and the patient is also paralyzed on Nimbex at 2 mcg/kg per minute. The patient remains on a mechanical ventilator. On today's evaluation, he is on a tidal volume of 400 with a rate of 28 and FiO2 is currently at 50% and a PEEP is currently at 16. The peak airway pressure is 48 on the mechanical ventilator. The patient has a Bivona tracheostomy tube in place. The chest x-ray from today shows adequate positioning of the trach eostomy tube. There is no evidence of air leak around the stoma. No evidence of any pneumothorax. No evidence of any pneumomediastinum or subcutaneous emphysema. Blood gases from today shows a pH of 7.39 with a pCO2 of 55 and pO2 of 93 and this was done and the above-mentioned ventilator setting. In terms of inflammatory markers, d-dimer today's at 7.84. The LDH level is stable at 504 and a CRP level is at 7.6. The patient remains on Decadron 6 mg IV every 24 hours. The patient is also on anticoagulation and is currently receiving Eliquis. I'm going to resume Eliquis treatment following his procedures knowing that the patient had pulmonary embolism at a time of his admission. He remains on empiric antibiotic coverage with IV Zosyn. This is covering MSSA in his sputum. The blood culture on 2 separate occasions from 11/06/2021 came back positive for coagulase-negative staph. His pro-calcitonin level is low at 0.14 and the white cell count currently is at 7.7 and the patient is currently on no pressors. The renal function is stable with a BUN of 16 and a creatinine of 0.5 and a sodium level is at 137. The patient is receiving enteral feeding for nutritional support and currently the feeding will be restarted after insertion of a PEG tube. He was receiving vital high protein. Has been receiving also Lasix dose is 40 mg IV every 24 hours. Overall fluid balance has been positive on this patient in order of 3 L over the past 24 hours. 11/12/2021, the patient underwent a tracheostomy tube insertion and he is postop day #1. The procedure was done on 11/11/2021. The patient has a Bivona tracheostomy tube in place for now and the procedure was done without any c omplication and the patient has no significant leaks around the tube. Following this procedure, the patient was taken off the paralytics and the patient is currently off Nimbex. He is still on propofol which is running at 60 mcg/kg per minute and fentanyl is running at 3 mcg/kg/h. He is very deeply sedated at this point in time. In fact he is not triggering the mechanical ventilator. He is on assist control mode at the rate of 26, tidal volume of 400, FiO2 at 40% with a PEEP of 14. His peak airway pressure was 40 earlier today with a static pressure of 38. Based on that, I dropped the PEEP down to 12 and I dropped a respiratory rate down to 22. The morning blood gases showed a pH of 7.38 with a pCO2 of 57 and pO2 of 61. Pulse ox on the monitor is in order of 95%. Chest x- ray shows no complications from the tracheostomy tube insertion. The patient continues to have diffuse bilateral pulmonary infiltrates. No evidence of any pneumomediastinum. No evidence of any subcutaneous emphysema. There is a tiny right apical pneumothorax on today's chest x-ray which is in the order of 5%. The patient is back on anticoagulation with Eliquis regarding his pulmonary embolism. He is taking 5 mg of Eliquis twice a day. He remains on Decadron 6 mg IV every 24 hours. IV fluids are in the form of normal saline at the rate of 20 mL an hour. Enteral feeding was restarted today in the form of vital high protein at the rate of 23 mL an hour. In terms of his blood work, the patient has a white cell count of 6.7 with a hemoglobin of 9.9. Platelet counts are stable at 209. The electrolytes all within normal limits. He has a BUN of 55, 15 and a creatinine of 0.55. Electrolytes are normal. Sodium is at 137. In terms of his fluid balance, the patient was receiving Lasix 40 mg IV every 24 hours. His fluid balance is still positive. His urine output is in order of 40 mL an hour. He does have some ongoing third spacing and edema in all 4 extremities. He remains on IV Zosyn regarding MSSA in his sputum. 14 2021, the patient is being seen for a follow-up. This morning, the patient is sedated and paralyzed. Note that was able to take the paralytics of the patient. Nevertheless, postop day #1 following his tracheostomy, the patient had an episode of epistaxis. This was quite a significant events during which the patient had to be suctioned. No packing was done. Were not sure where the blood was coming out. He has copious amount of blood coming from his mouth and nose. The tracheostomy was clean. No blood was coming out of the tracheostomy tube. Anticoagulation was held for 24 hours. The patient was given aspirin and TX a intranasally. Ultimately, the bleeding stopped. I'm contemplating of restarting anticoagulation again. That evaluation has been on hold since yesterday. This morning, the patient has no bleeding. He is calm and comfortable. He is sedated and paralyzed. He is currently on a combination of propofol which is running at 50 mcg/kg per minute and the patient is also on fentanyl at 2 mcg/kg/h and the patient is also Nimbex at 2 mcg/kg/m. Chest x- ray shows a tiny less than 5% right apical pneumothorax. Tracheostomy tube is in a good location. He remains on a mechanical ventilator. He is on a PEEP of 14 with an FiO2 of 40% and a tidal volume is currently at 400 with a rate of 26. Peak airway pressures at 31. Blood gases from today shows a pH of 7.37 with a pCO2 of 61 and pO2 of 86. No significant orotracheal secretions. No subcutaneous emphysema. He remains on Decadron. IV fluids are currently at KVO. He is receiving vital high protein at the rate of 23 mL an hour. Electrolytes from today are all within normal limits. Normal renal function. Hemoglobin stable at 9.9. The white cell count currently is at 9.2. He remains on IV Zosyn regarding MSSA in his sputum. Coagulation profile is normal. His d-dimer currently is at 8. The patient remains on Levemir insulin for blood sugar control. The patient is also receiving daily Lasix. Overall fluid balance has been +833 mL 11/14/2021, the patient was in extreme stable condition postop day #2 following tracheostomy. Acutely, the patient developed massive amount of bleeding from his tracheostomy. The bleeding was quite extensive and he was noted that the patient was bleeding around the tracheostomy stoma and subsequently the bleeding extended into his airways. A quick bronchoscopic evaluation was done as the patient was losing his volume study showed significant amount of clots within the airways. This was preventing further ventilation. I called the general surgeon and he was at the bedside. I called anesthesia and there are at the bedside. Under further discussions, I decided to remove the tracheostomy tube. I intubated the patient by a #8 orotracheal tube. Intervention process was quite difficult as the patient has copious amount of blood in his airways. Weren't able to inserted and the position of the tube was confirmed by a bronchoscope. Following that, the surgeon underwent an exploration of the tracheostomy surgical wound site. Adequate hemostasis was achieved and the bleeders were cauterized and ligated. TXA was applied. Surgicel was applied and the bleeding is being was stopped. Also, case and so was ordered during the process. Anticoagulation will be obviously discontinued from this point in bertram e. Meanwhile, the patient remained hemodynamically stable. He did have some few bouts of desaturation during the process and current pulse ox is around 99%. He is currently on propofol which is currently at 25 mcg/kg per minute. The patient is also on Nimbex at 2 mcg/kg per minute. The patient is on fentanyl at 4 mcg/kg/h. He remains on a mechanical ventilator. She is on assist-control mode with tidal volume of 400, FiO2 is currently is at on the percent, PEEP is currently at 10 and the patient's respiratory rate is currently in at 22. Peak airway pressures around 41. Chest x-ray has been ordered and this is to be completed. During the process, the patient became also hypertensive. He is currently on Celebrex drip which is running at 14 mg an hour. The patient remains on Decadron. IV fluids are still at KVO. She will feeds were briefly placed on hold due to ongoing complications. The patient remains on IV Zosyn regarding his MSSA in his sputum. Blood work from today shows a white cell count of 9 with a hemoglobin of 10.9. His coagulation profile was essentially within normal limits. His d-dimer from yesterday was at 8.4. Blood gases from earlier this morning showed a pH of 7.43 with a pCO2 of 55 and pO2 of 70 and this was on FiO2 of 40%. A follow-up blood. Will be obtained. Morning labs are all within normal limits with a mean of 16 and a creatinine of 0.38 and a sodium level of 138. Inflammatory markers were not checked today. Earlier this morning, the chest x-ray that was done on this patient showed no significant changes. There was bilateral multifocal pulmonary infiltrates consistent with his underlying pneumonia. Tracheostomy tube was in a good location. No significant change from today x-ray done earlier. He did have a stable tiny right apical pneumothorax which persisted on today's chest x-ray. 11/15/2021, the patient has not shown any active bleeding from his tracheostomy site. As mentioned yesterday, the tube has been removed and the patient is currently intubated again. The wound over the neck is dry clean and intact. The patient is on no anticoagulation. Vascular surgery consultation was placed for possibly insertion of a IVC filter. Meanwhile, the patient remains sedated and paralyzed. This morning, he is on propofol running at 70 mcg/kg per minute. He is also on fentanyl at 3 mcg/kg/h Nimbex is running at 3 mcg/kg per minute. The patient is on a mechanical ventilator. This morning, he is on a rate of 22, tidal volume of 400, FiO2 of 70% with a PEEP of 10. His peak airway pressures around 37. He is returning his volume is without any major difficulties. No significant bloody secretions from his orotracheal tube. Breath sounds are equal and symmetrical bilaterally. Chest x-ray showed a stable right apical pneumothorax. There is still diffuse breath and pulmonary infiltrates consistent with overnight he related pneumonia which remains unchanged compared to yesterday. In terms of therapy, the patient is off anticoagulation. Note that the patient had pulmonary embolism at a time of his original presentation back in 10/26/2021. The patient remains on Decadron 6 mg IV every 24 hours. He is on empiric antibiotic coverage with IV Zosyn knowing that his sputum is shown Streptococcus initially and later on MSSA. He is on no pressors. He is hypertensive. He is on a chiropractor for blood pressure control which is running at 20 mL milligrams an hour. Note that his enteral feeding was stopped briefly yesterday due to the events and possibility of some questionable GI bleed. This morning, there is no active bleeding from his PEG tube and diffuse disease will be restarted. White cell count of 16.7. Hemoglobin stable at 7.9. Platelet count is at 325. Blood gas show a pH of 7.3 with a pCO2 of 68 and pO2 of 76. Rest of the blood work is stable. The abdomen is at 14 with a crea tinine of 0.35. Inflammatory markers last checked was on 11/14/2021 and his LDH level was down to 949 and the CRP level was at 5.8. Patient with Objective - Vital Signs Vital signs: Vital Signs Temp 98.6 F 11/15/21 08:00 Pulse 124 H 11/15/21 08:00 Resp 22 11/15/21 08:00 BP 109/55 11/15/21 04:00 Pulse Ox 94 L 11/15/21 08:00 Intake & Output 11/14/21 11/15/21 11/15/21 18:59 06:59 18:59 Intake Total 2290.256 1727.686 263.500 Output Total 2085 875 75 Balance 205.256 852.686 188.500 Weight 127.006 kg Intake: IV 406 279 23 0.9 Normal Saline @ 20 mL 220 240 20 /hr KVO Piperacillin-Tazobactam 3 100 .375 gm In Sodium Chloride 0.9% 100 ml @ 25 mls/hr IVPB Q8HR [facility] Rx# :[id number] Potassium Chloride 20 meq 50 In Water For Injection 1 100ml.bag @ 50 mls/hr IVPB Q2H [facility] Rx#: [id number] Pressure bag 36 39 3 Intake, IV Titration 1417.875 2450.686 240.500 Amount Cisatracurium 200 mg In 144.704 365.60 Sodium Chloride 0.9% 180 ml @ 1.5 MCG/KG/MIN 10.8 mls/hr IV .[id number] [facility] Rx #:[id number] Clevidipine Butyrate 25 329.067 244.533 50 mg In Empty Bag 1 bag @ 1 MG/HR 2 mls/hr IV .Q24H [facility] Rx#:[id number] fentaNYL (PF) 2,500 mcg 440.485 256.237 101.242 In Sodium Chloride 0.9% 200 ml @ 0.5 MCG/KG/HR 4. 082 mls/hr IV .Q24H [facility] Rx#:[id number] propofoL 1,000 mg In 400.000 582.316 89.258 Empty Bag 1 bag @ Titrate IV .Q0M [facility] Rx#: [id number] Tube Feeding 40 0 Blood Product 500 Ffp 24 Pher Acda Unit 236 [id number] Ffp 24 Pher Acda Cnt1 264 Unit [id number] Other 30 Output: Urine 2085 875 75 Other: Voiding Method Indwelling Catheter Indwelling Catheter # Bowel Movements 3 ABP, PAP, CO, CI - Last Documented Arterial Blood Pressure 128/61 - Exam GENERAL EXAM: Alert, restless 61-year-old male patient, the patient remains intubated on a mechanical ventilator , trach was removed HEAD: Normocephalic. EYES: Normal reaction of pupils, equal size. NOSE: Clear with pink turbinates. THROAT: No erythema or exudates. He has a Bivona tracheostomy tube in place. Exit site is clean. No evidence of any air leak. No evidence of any bleeding around the tracheostomy stoma. The wound is packed and there is no active bleeding NECK: No masses, no JVD. CHEST: No chest wall deformity. LUNGS: Equal air entry with coarse crackles in the posterior bases. CVS: S1 and S2 normal with no audible murmur, regular rhythm. ABDOMEN: No hepatosplenomegaly, normal bowel sounds, no guarding or rigidity. The patient has also had a PEG tube in place which is currently intact. No evidence of any bleeding around the PEG tube. SPINE: No scoliosis or deformity SKIN: No rashes CENTRAL NERVOUS SYSTEM: No focal deficits, tone is normal in all 4 extremities. EXTREMITIES: There is peripheral edema. No clubbing, no cyanosis. Peripheral pulses are intact. - Labs CBC & Chem 7: 11/15/21 04:00 11/15/21 04:00 Labs: Abnormal Lab Results - Last 24 Hours (Table) 11/14/21 11/14/21 11/14/21 Range/Units 08:46 09:25 09:25 WBC 15.9 H (3.8-10.6) k/uL RBC 3.68 L (4.30-5.90) m/uL Hgb 11.6 L (13.0-17.5) gm/dL Hct 36.7 L (39.0-53.0) % MCV (80.0-100.0) fL Neutrophils # 11.6 H (1.3-7.7) k/uL Monocytes # 1.2 H (0-1.0) k/uL APTT 21.1 L (22.0-30.0) sec D-Dimer 7.69 H (<0.60) mg/L FEU ABG pH (7.35-7.45) ABG pCO2 (35-45) mmHg ABG pO2 (83-108) mmHg ABG HCO3 (21-25) mmol/L ABG Total CO2 (19-24) mmol/L ABG O2 Saturation (94-97) % Sodium (137-145) mmol/L Potassium (3.5-5.1) mmol/L Carbon Dioxide (22-30) mmol/L Creatinine (0.66-1.25) mg/dL Glucose (74-99) mg/dL POC Glucose (mg/dL) (75-99) mg/dL Calcium (8.4-10.2) mg/dL ALT (4-49) U/L Total Protein (6.3-8.2) g/dL Albumin (3.5-5.0) g/dL Crossmatch See Detail 11/14/21 11/14/21 11/14/21 Range/Units 09:25 09:28 10:05 WBC (3.8-10.6) k/uL RBC (4.30-5.90) m/uL Hgb (13.0-17.5) gm/dL Hct (39.0-53.0) % MCV (80.0-100.0) fL Neutrophils # (1.3-7.7) k/uL Monocytes # (0-1.0) k/uL APTT (22.0-30.0) sec D-Dimer (<0.60) mg/L FEU ABG pH 7.34 L (7.35-7.45) ABG pCO2 64 H (35-45) mmHg ABG pO2 259 H (83-108) mmHg ABG HCO3 35 H (21-25) mmol/L ABG Total CO2 37 H (19-24) mmol/L ABG O2 Saturation 100.0 H (94-97) % Sodium (137-145) mmol/L Potassium 3.4 L (3.5-5.1) mmol/L Carbon Dioxide 33 H (22-30) mmol/L Creatinine 0.43 L (0.66-1.25) mg/dL Glucose 154 H (74-99) mg/dL POC Glucose (mg/dL) 148 H (75-99) mg/dL Calcium (8.4-10.2) mg/dL ALT 57 H (4-49) U/L Total Protein 6.2 L (6.3-8.2) g/dL Albumin 2.8 L (3.5-5.0) g/dL Crossmatch 11/14/21 11/14/21 11/14/21 Range/Units 11:33 15:15 17:15 WBC (3.8-10.6) k/uL RBC (4.30-5.90) m/uL Hgb (13.0-17.5) gm/dL Hct (39.0-53.0) % MCV (80.0-100.0) fL Neutrophils # (1.3-7.7) k/uL Monocytes # (0-1.0) k/uL APTT (22.0-30.0) sec D-Dimer (<0.60) mg/L FEU ABG pH (7.35-7.45) ABG pCO2 (35-45) mmHg ABG pO2 (83-108) mmHg ABG HCO3 (21-25) mmol/L ABG Total CO2 (19-24) mmol/L ABG O2 Saturation (94-97) % Sodium (137-145) mmol/L Potassium (3.5-5.1) mmol/L Carbon Dioxide (22-30) mmol/L Creatinine (0.66-1.25) mg/dL Glucose (74-99) mg/dL POC Glucose (mg/dL) 165 H 256 H 254 H (75-99) mg/dL Calcium (8.4-10.2) mg/dL ALT (4-49) U/L Total Protein (6.3-8.2) g/dL Albumin (3.5-5.0) g/dL Crossmatch 11/14/21 11/14/21 11/15/21 Range/Units 19:45 21:57 00:02 WBC (3.8-10.6) k/uL RBC 2.74 L (4.30-5.90) m/uL Hgb 8.9 L D (13.0-17.5) gm/dL Hct 27.2 L (39.0-53.0) % MCV (80.0-100.0) fL Neutrophils # (1.3-7.7) k/uL Monocytes # (0-1.0) k/uL APTT (22.0-30.0) sec D-Dimer (<0.60) mg/L FEU ABG pH (7.35-7.45) ABG pCO2 (35-45) mmHg ABG pO2 (83-108) mmHg ABG HCO3 (21-25) mmol/L ABG Total CO2 (19-24) mmol/L ABG O2 Saturation (94-97) % Sodium (137-145) mmol/L Potassium (3.5-5.1) mmol/L Carbon Dioxide (22-30) mmol/L Creatinine (0.66-1.25) mg/dL Glucose (74-99) mg/dL POC Glucose (mg/dL) 242 H 137 H (75-99) mg/dL Calcium (8.4-10.2) mg/dL ALT (4-49) U/L Total Protein (6.3-8.2) g/dL Albumin (3.5-5.0) g/dL Crossmatch 11/15/21 11/15/21 11/15/21 Range/Units 03:46 04:00 04:00 WBC 16.7 H (3.8-10.6) k/uL RBC 3.26 L (4.30-5.90) m/uL Hgb 10.9 L (13.0-17.5) gm/dL Hct 32.9 L (39.0-53.0) % MCV 100.9 H (80.0-100.0) fL Neutrophils # (1.3-7.7) k/uL Monocytes # (0-1.0) k/uL APTT (22.0-30.0) sec D-Dimer (<0.60) mg/L FEU ABG pH (7.35-7.45) ABG pCO2 (35-45) mmHg ABG pO2 (83-108) mmHg ABG HCO3 (21-25) mmol/L ABG Total CO2 (19-24) mmol/L ABG O2 Saturation (94-97) % Sodium 136 L (137-145) mmol/L Potassium (3.5-5.1) mmol/L Carbon Dioxide (22-30) mmol/L Creatinine 0.35 L (0.66-1.25) mg/dL Glucose 194 H (74-99) mg/dL POC Glucose (mg/dL) 194 H (75-99) mg/dL Calcium 8.1 L (8.4-10.2) mg/dL ALT (4-49) U/L Total Protein (6.3-8.2) g/dL Albumin (3.5-5.0) g/dL Crossmatch 11/15/21 11/15/21 Range/Units 05:05 08:16 WBC (3.8-10.6) k/uL RBC (4.30-5.90) m/uL Hgb (13.0-17.5) gm/dL Hct (39.0-53.0) % MCV (80.0-100.0) fL Neutrophils # (1.3-7.7) k/uL Monocytes # (0-1.0) k/uL APTT (22.0-30.0) sec D-Dimer (<0.60) mg/L FEU ABG pH 7.30 L (7.35-7.45) ABG pCO2 68 H (35-45) mmHg ABG pO2 76 L (83-108) mmHg ABG HCO3 33 H (21-25) mmol/L ABG Total CO2 35 H (19-24) mmol/L ABG O2 Saturation (94-97) % Sodium (137-145) mmol/L Potassium (3.5-5.1) mmol/L Carbon Dioxide (22-30) mmol/L Creatinine (0.66-1.25) mg/dL Glucose (74-99) mg/dL POC Glucose (mg/dL) 229 H (75-99) mg/dL Calcium (8.4-10.2) mg/dL ALT (4-49) U/L Total Protein (6.3-8.2) g/dL Albumin (3.5-5.0) g/dL Crossmatch Assessment and Plan Plan: 1 Acute hypoxic respiratory failure related to acute COVID-19 related pneumonia, patient presented to the emergency department on 10/23/2021 with 2 week history of symptoms, patient is outside the window for Remdesivir, he is a non-vaccinated adult. The patient was transferred to the intensive care unit , the patient was started on BiPAP and ultimately failed BiPAP and the patient was intubated and placed on a mechanical ventilator. The patient has been on mechanical ventilator for an extended period of time since 10/30/2022. The patient underwent tracheostomy tube insertion on 11/10/2021. This was not assoc iated with significant amount of bleeding around the tracheostomy stoma. Due to the massive bleeding that was encountered today, the tracheostomy was removed and the patient was reintubated. The surgical wound was explored and appropriate dressing was applied and hemostasis was achieved. On today's evaluation of 11/15/2021, the patient is intubated. Tracheostomy tube has been removed. The surgical wound site over the neck is dry clean and intact. No evidence of any acute bleeding. Remains stable in the mechanical ventilator. Chest x-ray shows recovery of the right apical pneumothorax. He remains on IV Zosyn regarding MSSA in his sputum. Hemodynamically stable. On Cleviprex drip for blood pressure control. 2 Bilateral pulmonary emboli on computed tomography scan 10/26/2021. The patient is currently off anticoagulation. Kcentra was given to reverse his Eliquis effects, the patient has no signs of any acute bleeding at this point in time. The patient may benefit from a IVC filter placement. Breast cancer surgery has been consulted and possibly the patient will undergo the procedure on Tuesday. 3 Diabetes mellitus type 2 with diabetic neuropathy currently on Levemir insulin for blood sugar control 4 right apical pneumothorax, approximately 5% 5 epistaxis, recovered 6 Obstructive sleep apnea with previous history of UPPP 7 History of right eye melanoma with multiple surgeries 8 Previous history of CVA 9 Rheumatoid arthritis 10 History of gout 11 Previous history of MRSA infection in the wound on his back 12 Mild lactic acidosis, improved with IV hydration 13 Elevated inflammatory markers related to acute COVID-19 pneumonia 14 BPH with previous history of TURP 15 pneumomediastinum and subcutaneous emphysema, complications of COVID 19 related pneumonia, stable 16 tiny right apical pneumothorax less than 5% 17 sinus bradycardia, recovered 18 hypertension 19 hyperlipidemia Plan: Continue ventilator support change Fio2 to 60, PEEP to 9 Paralytic holiday Obtain Doppler of the lower extremities was negative Consulted vascular surgery regarding the possibility of a IVC filter placement The patient will be taken off anticoagulation for now, use Lovenox prophylasix only 40 mg SC Keep Zosyn Continue Decadron Enteral feeding for nutritional support will be restarted Cleviprex for BP control Restart Metoprolol 25 mg BID Levemir 20 U and a SS coverage Monitor PTX, recovered Monitor bleed Condition is critical . Critically care evaluation that was on a more than 30 minutes. Time with Patient: Greater than 30
[2021-11-15] MEDS: ASCORBIC ACID 500 MG TAB PO SCH (09:47)
[2021-11-15] MEDS: ZINC SULFATE 220 MG CAP PO SCH (09:47)
[2021-11-15] MEDS: DEXAMETHASONE SOD PHOSPHATE 10 MG/ML 1 ML VIAL IVP SCH (09:47)
[2021-11-15] MEDS: CHOLECALCIFEROL 25 MCG (1000 IU) TABLET PO SCH (09:47)
[2021-11-15] MEDS: METOPROLOL TARTRATE 25 MG TAB PO SCH ×2 (09:47→20:47)
[2021-11-15] MEDS: PREGABALIN 100 MG CAP PO SCH ×2 (09:47→20:47)
[2021-11-15] MEDS: FUROSEMIDE 10 MG/ML 4 ML VIAL IV SCH (09:49)
[2021-11-15] MEDS: ENOXAPARIN 40 MG/0.4 ML SYRINGE SQ SCH (09:49)
[2021-11-15] MEDS: bisacodyL 10 MG SUPP RECTAL SCH ×2 (09:50→21:53)
[2021-11-15] MEDS: DOCUSATE ORAL SOLN 100 MG/10 ML CUP PO SCH ×2 (09:50→20:59)
[2021-11-15] MEDS: CHLORHEXIDINE GLUCONATE 15 ML CUP MUCOUS MEM SCH ×2 (09:50→20:47)
[2021-11-15] MEDS: LACTULOSE 20 GM/30 ML CUP PO SCH ×2 (09:50→21:53)
[2021-11-15] MEDS: SERTRALINE 50 MG TAB PO SCH (11:14)
--- NOTE | 2021-11-15 11:17 | P.PN ---
Progress Note - Text Progress Note Date: 11/14/21 I was called by the nurse regarding the patient's tracheostomy site. Patient apparently had developed extensive bleeding. He was hypertensive with systolic blood pressures in the 200 range. He received L Fermin. He had a previous significant nose bleed 2 days ago. The patient was difficult to ventilate. Dr. Teague thought there may have been a clot in the tracheostomy tube. Patient underwent emergent intubation. Patient does have general oozing around his tracheostomy site. The tracheostomy wound was examined. There was no significant bleeding vessel. However the whole surgical field was oozing. This is most likely due to a medical bleed due to the L Fermin and hypertension. Patient had hemostatic agents applied to the tracheostomy site. No further bleeding was seen.
--- NOTE | 2021-11-15 11:18 | P.PN ---
Progress Note - Text Progress Note Date: 11/15/21 Patient has had no further bleeding from his tracheostomy site. He received K [employer] yesterday. The wound is clean. The patient will need replacement of his tracheostomy tube at some point. We will plan for reinsertion of the tracheostomy tube the next 24-48 hours.
--- NOTE | 2021-11-15 11:22 | P.OP ---
Date of Procedure: 11/15/21 Preoperative Diagnosis: Bleeding at tracheostomy site Postoperative Diagnosis: Bleeding at tracheostomy site due to elaquist and hypertension Procedure(s) Performed: Revision tracheostomy, exploration of wound Anesthesia: GUILHERME Surgeon: Diego Love Estimated Blood Loss (ml): 50 Pathology: none sent Condition: critical Disposition: ICU Description of Procedure: The patient and previously intubated by Dr. Teague. The neck was prepped. The surgical wound was explored. The nylon sutures were withdrawn. Traction placed a wound. There was diffuse bleeding seen from around the entire tracheostomy wound. There was no single vessel bleeding. Using suction the wound explored. There is just a diffuse is seen throughout. There appeared to be some oozing from the area of the thyroid. This was stick tied with 3-0 Vicryl. The wound was irrigated. The areas hemostasis. There was no active bleeding however there is a diffuse ooze from and the entire wound. Using Surgicel pallor and topical TXa hemostasis was achieved. The wound was packed with wet-to-dry Kerlix. Patient top of the procedure.
[2021-11-15 11:41] LABS: Glucose,Whole Blood 229 mg/dL (75-99)
[2021-11-15 15:32] LABS: Glucose,Whole Blood 166 mg/dL (75-99)
--- NOTE | 2021-11-15 15:54 | P.PN ---
Progress Note - Text Progress Note Date: 11/15/21 Chief Complaint: Short of breath This is a pleasant 61-year-old patient, chronic stable medical conditions include diabetes, hypertension, hyperlipidemia, osteoarthritis, peripheral neuropathy, chronic gout. Patient presents with increasing shortness of breath. Cough. Clear sputum. Fever and chills. Tired rundown decrease appetite and diarrhea about 2 times a day. Patient tested positive for COVID-19 on October 09. His initial rapid COVID-19 was negative. In the send out came back positive. Patient did not take the vaccine against COVID-19. He is on 8 L of oxygen this morning. He is outside the window for Remdesivir. Admitted with COVID 19 pneumonitis, acute hypoxic respiratory failure. Started on Decadron. IV fluids. October 26 chest CTA showed bilateral pulmonary embolism. Breathing cord worse in October 30 patient is intubated. Requiring various drips. 2 feeding was started. November 10 patient got a tracheostomy and a PEG tube. Patient subsequently had a large bleed from the tracheostomy site. Desaturated. Tracheostomy had to be removed. Bedside bronchoscopy was done. Large blood loss was removed. Was put back on the ventilator/intubated. Required FFP. November 14: ICU. Patient had no bleeding around the tracheostomy site. Patient had desaturated. Tracheostomy had to be removed. The mincing machine operator, surgeon, anesthesia@tibia the bedside. Bronchoscopy was done. Blood was removed from the trachea and the bronchus. Patient put back on the ventilator. Currently 50/10. Drips include fentanyl, propofol, cleviprex. Given FFP. Review of systems: Intubated. Anticoagulation obviously has been discontinued. younger daughter the bedside. Updated. November 15: ICU. Ventilator: 60/90. Drips included propofol and fentanyl. Telemetry: Sinus rhythm. 2 feeding at 10 mL an hour. Another daughter the bedside. Review of systems: Patient intubated Active Medications Acetaminophen (Acetaminophen Tab 325 Mg Tab) 650 mg PO Q6HR PRN PRN Reason: Mild Pain or Fever > 100.5 Last Admin: 10/29/21 15:46 Dose: 650 mg Documented by: Albuterol Sulfate (Albuterol Hfa Inhaler) 2 puff INHALATION RT-QID PRN PRN Reason: Shortness Of Breath Last Admin: 11/14/21 20:22 Dose: 2 puff Documented by: Artificial Tears (Artificial Tears-Hypromellose Drops 15 Ml Btl) 2 drops BOTH EYES Q4HR [facility] Last Admin: 11/15/21 15:26 Dose: 2 drops Documented by: Ascorbic Acid (Ascorbic Acid 500 Mg Tab) 1,000 mg PO DAILY [facility] Last Admin: 11/15/21 09:47 Dose: 1,000 mg Documented by: Bisacodyl (Bisacodyl 10 Mg Supp) 10 mg RECTAL BID [facility] Last Admin: 11/15/21 09:50 Dose: Not Given Documented by: Chlorhexidine Gluconate (Chlorhexidine Gluconate 15 Ml Cup) 15 ml MUCOUS MEM BID [facility] Last Admin: 11/15/21 09:50 Dose: 15 ml Documented by: Cholecalciferol (Cholecalciferol 25 Mcg (1000 Iu) Tablet) 25 mcg PO DAILY [facility] Last Admin: 11/15/21 09:47 Dose: 25 mcg Documented by: Dexamethasone Sodium Phosphate (Dexamethasone Sod Phosphate 10 Mg/Ml 1 Ml Vial) 6 mg IVP DAILY [facility] Last Admin: 11/15/21 09:47 Dose: 6 mg Documented by: Docusate Sodium (Docusate Oral Soln 100 Mg/10 Ml Cup) 100 mg PO BID [facility] Last Admin: 11/15/21 09:50 Dose: Not Given Documented by: Enoxaparin Sodium (Enoxaparin 40 Mg/0.4 Ml Syringe) 40 mg SQ DAILY [facility] Last Admin: 11/15/21 09:49 Dose: 40 mg Documented by: Furosemide (Furosemide 10 Mg/Ml 4 Ml Vial) 40 mg IV DAILY [facility] Last Admin: 11/15/21 09:49 Dose: 40 mg Documented by: Hydralazine HCl (Hydralazine Hcl 20 Mg/Ml 1 Ml Vial) 20 mg IVP Q4HR PRN PRN Reason: Blood Pressure - High SBP >160 Last Admin: 11/15/21 10:14 Dose: 20 mg Documented by: Propofol 1,000 mg/ IV Solution 100 mls @ 0 mls/hr IV .Q0M [facility]; Protocol Last Admin: 11/15/21 14:40 Dose: 50 mcg/kg/min, 38.102 mls/hr Documented by: Piperacillin Sod/Tazobactam (Sod 3.375 gm/ Sodium Chloride) 100 mls @ 25 mls/hr IVPB Q8HR [facility] Last Admin: 11/15/21 15:26 Dose: 25 mls/hr Documented by: Cisatracurium Besylate 200 mg/ (Sodium Chloride) 200 mls @ 10.8 mls/hr IV .[id number] [facility]; Protocol Last Titration: 11/15/21 10:30 Dose: 0 mcg/kg/min, 0 mls/hr Documented by: Fentanyl Citrate 2,500 mcg/ (Sodium Chloride) 250 mls @ 4.082 mls/hr IV .Q24H [facility]; Protocol Last Admin: 11/15/21 15:02 Dose: 3 mcg/kg/hr, 24.494 mls/hr Documented by: Clevidipine 25 mg/ IV Solution 50 mls @ 2 mls/hr IV .Q24H [facility]; Protocol Last Titration: 11/15/21 11:11 Dose: 0 mg/hr, 0 mls/hr Documented by: Insulin Aspart (Insulin Aspart (Novolog) 100 Unit/Ml Vial) 0 unit SQ Q4HR [facility]; Protocol Last Admin: 11/15/21 12:40 Dose: 7 unit Documented by: Insulin Detemir (Insulin Detemir (Levemir) 100 Unit/Ml Syr) 20 unit SQ HS [facility] Last Admin: 11/14/21 20:00 Dose: 20 unit Documented by: Lactulose (Lactulose 20 Gm/30 Ml Cup) 10 gm PO BID [facility] Last Admin: 11/15/21 09:50 Dose: Not Given Documented by: Metoprolol Tartrate (Metoprolol Tartrate 25 Mg Tab) 25 mg PO BID [facility] Last Admin: 11/15/21 09:47 Dose: 25 mg Documented by: Miscellaneous Information (Potassium Replacement Protocol 1 Each Misc) 1 each MISCELLANE DAILY PRN; Protocol PRN Reason: Per Protocol Pregabalin (Pregabalin 100 Mg Cap) 200 mg PO BID [facility] Last Admin: 11/15/21 09:47 Dose: 200 mg Documented by: Sertraline HCl (Sertraline 50 Mg Tab) 50 mg PO DAILY [facility] Last Admin: 11/15/21 11:14 Dose: 50 mg Documented by: Zinc Sulfate (Zinc Sulfate 220 Mg Cap) 220 mg PO DAILY [facility] Last Admin: 11/15/21 09:47 Dose: 220 mg Documented by: Social history: Patient is on Social Security. Does not smoke or drink alcohol. Patient's daughters family lives with him. Family history: Father at the age of 40 with heart attack Physical examination: VITAL SIGNS: 99.2, 92, 22, 100/56, 96% on the ventilator GENERAL: Laying in bed, intubated. PEG tube . LUNGS: Respiratory rate increased,. PSYCH: Unable to assess Rest of the exam per nursing and pulmonary INVESTIGATIONS, reviewed in the clinical context: November 14: White count 15.9 hemoglobin 11.6 platelets 318 d-dimer 7.69 potassium 3.4 creatinine 0.43 Blood culture positive for Staphylococcus epidermidis/coagulates negative. October 28: D-dimer 13.4 to October 26: D-dimer 8.48 CRP 24 Chest CTA [October 26: biLateral pulmonary embolism Doppler ultrasound lower extremity: Negative for DVT October 24: White count 9.7 hemoglobin 15.3 platelets 221 d-dimer 1.93 progression 4.2 creatinine 0.71 CRP 5.5 pro-calcitonin 0.08 White count 9.9 hemoglobin 16 platelets 234 d-dimer 0.98 sodium 141 potassium 3.4 creatinine 0.81 Lactic acid 2.9 LDH 1422 CRP 7.5 EKG tracing personally reviewed by me-normal sinus rhythm. Nonspecific ST segment changes. Chest x-ray film personally reviewed by me-bilateral infiltrates Assessment and plan: -Acute severe COVID 19 pneumonitis in a patient who did not take the COVID-19 vaccine: Slow to respond Dexamethasone, vitamin C, vitamin D, zinc. Patient's outside the window for Remdesivir. -Acute hypoxic respiratory failure from COVID-19: Slow to respond intubated October 30. FiO2 60 and a PEEP of 9 -Active bleeding around tracheostomy into the trachea and lungs. Status post bronchoscopy. Evacuation of large amounts of blood clot. Tracheostomy removed. Patient reintubated -Bilateral pulmonary embolism secondary to COVID-19 Eliquis -discontinued because of bleeding -Essential hypertension Lopressor 25 mg twice a day, -Diabetes mellitus type 2, on oral hypoglycemic, uncontrolled with hyperglycemia Increase Levemir 24 units daily at bedtime. Follow Accu-Cheks -Chronic insomnia for medical conditions Elavil 50 mg daily at bedtime -Hyperlipidemia TriCor 48 mg daily -Hypoalbuminemia Acute phase reactant -Obstructive sleep apnea On CPAP at home -Pneumomediastinum and subcutis emphysema complications of COVID-19 indicated pneumonia. -Diabetes right upper apical pneumothorax less than 5%. -Diabetic peripheral neuropathy Lyrica 200 mg twice daily -Full code Drips : fentanyl , propofol . , Ventilator. Increase Levemir to 24 units. Follow labs. Discussed with daughter the bedside. Prognosis guarded. Empirically on IV Zosyn
[2021-11-15 19:57] LABS: Glucose,Whole Blood 143 mg/dL (75-99)
[2021-11-15] MEDS: INSULIN DETEMIR (LEVEMIR) 100 UNIT/ML SYR SQ SCH (20:49)
[2021-11-15 23:25] LABS: Glucose,Whole Blood 105 mg/dL (75-99)
[2021-11-16] MEDS: INSULIN ASPART (NovoLOG) 100 UNIT/ML VIAL SQ SCH ×6 (00:30→20:37)
[2021-11-16 03:25] LABS: Glucose,Whole Blood 115 mg/dL (75-99)
[2021-11-16] MEDS: ARTIFICIAL TEARS-HYPROMELLOSE DROPS 15 ML BTL BOTH EYES SCH ×6 (03:30→23:19)
[2021-11-16 04:14] LABS: ALT 40 U/L (4-49); AST 23 U/L (17-59); African American GFR (CKD) >90 (>60 ml/min/1.73 sqM); Albumin 2.2 g/dL (3.5-5.0); Alkaline Phosphatase 62 U/L (38-126); Anion Gap 0 mmol/L; Blood Urea Nitrogen 14 mg/dL (9-20); Calcium 8.1 mg/dL (8.4-10.2); Carbon Dioxide 35 mmol/L (22-30); Chloride 101 mmol/L (98-107); Glucose 105 mg/dL (74-99); Non-African American GFR(CKD) >90 (>60 ml/min/1.73 sqM); Potassium 3.2 mmol/L (3.5-5.1); Sodium 136 mmol/L (137-145); Total Bilirubin 0.8 mg/dL (0.2-1.3); Total Protein 4.8 g/dL (6.3-8.2)
[2021-11-16 04:26] LABS: HCT 24.8 % (39.0-53.0); Hypochromasia Slight; MCH 32.7 pg (25.0-35.0); MCHC 32.8 g/dL (31.0-37.0); MCV 99.8 fL (80.0-100.0); Macrocytosis Slight; Mean Platelet Volume 7.9; Platelet Count 205 k/uL (150-450); Poikilocytosis Slight; RBC 2.49 m/uL (4.30-5.90); RDW 15.3 % (11.5-15.5)
[2021-11-16 04:44] LABS: HGB 8.1 gm/dL (13.0-17.5)
[2021-11-16 05:29] LABS: Eosinophils # (M) 0.14 k/uL (0-0.7); Lymphocytes # (M) 1.05 k/uL (1.0-4.8); Monocytes # (M) 0.56 k/uL (0-1.0); Neutrophils # (M) 5.25 k/uL (1.3-7.7); Neutrophils % (M) 75 %; Nucleated Red Blood Cells 0 /100 WBC (0-0); Total Cells Counted 100
[2021-11-16 06:09] LABS: ABG Base Excess 11.6 mmol/L; ABG HCO3 36 mmol/L (21-25); ABG Oxygen Saturation 95.4 % (94-97); ABG PCO2 54 mmHg (35-45); ABG PH 7.43 (7.35-7.45); ABG PO2 73 mmHg (83-108); ABG TCO2 38 mmol/L (19-24); Allen Test Performed? Yes
[2021-11-16] MEDS: fentaNYL (PF) 2,500 MCG in SODIUM CHLORIDE 0.9% 200 ML IV SCH ×2 (06:14→15:19)
[2021-11-16] MEDS ORDERED: Potassium Replacement Protocol 1 EACH MISC MISCELLANE PRN (07:29)
[2021-11-16] MEDS: ENOXAPARIN 40 MG/0.4 ML SYRINGE SQ SCH (08:16)
[2021-11-16] MEDS: CHOLECALCIFEROL 25 MCG (1000 IU) TABLET PO SCH (08:17)
[2021-11-16] MEDS: ASCORBIC ACID 500 MG TAB PO SCH (08:17)
[2021-11-16] MEDS: ZINC SULFATE 220 MG CAP PO SCH (08:17)
[2021-11-16] MEDS: METOPROLOL TARTRATE 25 MG TAB PO SCH ×2 (08:17→21:41)
[2021-11-16] MEDS: DEXAMETHASONE SOD PHOSPHATE 10 MG/ML 1 ML VIAL IVP SCH (08:17)
[2021-11-16] MEDS: DOCUSATE ORAL SOLN 100 MG/10 ML CUP PO SCH ×2 (08:17→20:42)
[2021-11-16] MEDS: CHLORHEXIDINE GLUCONATE 15 ML CUP MUCOUS MEM SCH ×2 (08:18→20:36)
[2021-11-16] MEDS: POTASSIUM BICARBONATE/CIT AC 20 MEQ TABLET.EFF NG-TUBE SCH ×2 (08:18→10:40)
[2021-11-16] MEDS: PREGABALIN 100 MG CAP PO SCH ×2 (08:18→21:47)
[2021-11-16] MEDS: SERTRALINE 50 MG TAB PO SCH (08:18)
[2021-11-16] MEDS: FUROSEMIDE 10 MG/ML 4 ML VIAL IV SCH (08:18)
[2021-11-16] MEDS: PIPERACILLIN-TAZOBACTAM 3.375 GM in SODIUM CHLORIDE 0.9% 100 ML IVPB SCH ×3 (08:19→23:20)
[2021-11-16] MEDS: bisacodyL 10 MG SUPP RECTAL SCH ×2 (08:22→21:40)
[2021-11-16] MEDS: LACTULOSE 20 GM/30 ML CUP PO SCH ×2 (08:22→21:40)
--- NOTE | 2021-11-16 08:28 | XR ---
EXAMINATION TYPE: XR chest 1V portable DATE OF EXAM: 11/16/2021 COMPARISON: Chest x-ray 11/15/2021 HISTORY: Covid 19 pneumonia, intubated TECHNIQUE: Single frontal view of the chest is obtained. FINDINGS: Endotracheal tube, left subclavian central venous catheter are stable overlying appropriat e positions. Bilateral airspace disease is again seen. Lung volumes are low and the patient is rotate d, there is no evident pneumothorax or pleural effusion. Cardiac mediastinal silhouette is stable. Pena rgical clips are present in the right neck. IMPRESSION: No interval change, correlate for pneumonia, ARDS, congestive heart failure not excluded
[2021-11-16 08:39] LABS: Glucose,Whole Blood 112 mg/dL (75-99)
[2021-11-16 11:35] LABS: Glucose,Whole Blood 132 mg/dL (75-99)
--- NOTE | 2021-11-16 13:35 | P.PN ---
Subjective Progress Note Date: 11/16/21 CHIEF COMPLAINT: COVID-19 pneumonia HISTORY OF PRESENT ILLNESS: Patient is in the ICU on mechanical ventilation and sedated. He is status post tracheostomy and PEG tube placement on 11/10/2021. Patient had bleeding at tracheostomy site and required revision and removal of tracheostomy. Patient is currently intubated and sedated. His Tube feeds are at 10ml/hr. there is no residual reported. Afebrile WBC 16.7 down to 7.0 hemoglobin 10.9 down to 8.1 patient did received Kcentra and fresh frozen plasma for the bleeding on the . He's had no further signs or symptoms of bleeding. Vascular surgery on consult for possible IVC filter placement. He is off of the Eliquis. Currently on Lovenox 40 mg subcu daily Patient seen and examined with Dr. daniel PHYSICAL EXAM: VITAL SIGNS: Reviewed. GENERAL: Well-developed in no acute distress. HEENT: Head is atraumatic, normocephalic. dressing at old trach site clean, dry and intact ABDOMEN: Soft. Nondistended. Nontender. PEG tube site clean dry and intact NEUROLOGIC: Intubated and sedated ASSESSMENT: 1. Acute hypoxic respiratory failure secondary to COVID-19 pneumonia requiring mechanical ventilation 2. Severe protein calorie malnutrition 3. Bilateral pulmonary emboli 4. Bleeding at tracheostomy site status post revision and removal of tracheostomy PLAN: -Revision of tracheostomy scheduled for 11/18/[address] daniel -Continue ICU management and continue supportive care Physician Foundry Finisher note has been reviewed by physician. Signing provider agrees with the documented findings, assessment, and plan of care. Objective - Vital Signs Vital signs: Vital Signs Temp 98.9 F 11/16/21 08:00 Pulse 57 L 11/16/21 11:00 Resp 22 11/16/21 11:00 BP 105/64 11/16/21 07:00 Pulse Ox 96 11/16/21 11:00 Intake & Output 11/15/21 11/16/21 11/16/21 18:59 06:59 18:59 Intake Total 2602.631 8767.901 668.868 Output Total 1966 203 8253 Balance 370.086 626.901 -616.132 Weight 130.6 kg Intake: IV 348 299 215 0.9 Normal Saline @ 20 mL 190 260 100 /hr KVO Piperacillin-Tazobactam 3 125 100 .375 gm In Sodium Chloride 0.9% 100 ml @ 25 mls/hr IVPB Q8HR [facility] Rx# :[id number] Pressure bag 33 39 15 Intake, IV Titration 982.086 622.901 283.868 Amount Cisatracurium 200 mg In 97.92 Sodium Chloride 0.9% 180 ml @ 1.5 MCG/KG/MIN 10.8 mls/hr IV .[id number] [facility] Rx #:[id number] Clevidipine Butyrate 25 159.067 mg In Empty Bag 1 bag @ 1 MG/HR 2 mls/hr IV .Q24H [facility] Rx#:[id number] fentaNYL (PF) 2,500 mcg 335.841 232.697 108.864 In Sodium Chloride 0.9% 200 ml @ 0.5 MCG/KG/HR 4. 082 mls/hr IV .Q24H [facility] Rx#:[id number] propofoL 1,000 mg In 389.258 390.204 175.004 Empty Bag 1 bag @ Titrate IV .Q0M [facility] Rx#: [id number] Tube Feeding 80 140 60 Other 40 90 110 Output: Urine 7062 412 5339 Other: Voiding Method Indwelling Catheter Indwelling Catheter ABP, PAP, CO, CI - Last Documented Arterial Blood Pressure 87/54 - Labs CBC & Chem 7: 11/16/21 03:30 11/16/21 03:30 Labs: Abnormal Lab Results - Last 24 Hours (Table) 11/15/21 11/15/21 11/15/21 Range/Units 15:29 19:57 23:24 RBC (4.30-5.90) m/uL Hgb (13.0-17.5) gm/dL Hct (39.0-53.0) % ABG pCO2 (35-45) mmHg ABG pO2 (83-108) mmHg ABG HCO3 (21-25) mmol/L ABG Total CO2 (19-24) mmol/L Sodium (137-145) mmol/L Potassium (3.5-5.1) mmol/L Carbon Dioxide (22-30) mmol/L Creatinine (0.66-1.25) mg/dL Glucose (74-99) mg/dL POC Glucose (mg/dL) 166 H 143 H 105 H (75-99) mg/dL Calcium (8.4-10.2) mg/dL Total Protein (6.3-8.2) g/dL Albumin (3.5-5.0) g/dL 11/16/21 11/16/21 11/16/21 Range/Units 03:23 03:30 03:30 RBC 2.49 L (4.30-5.90) m/uL Hgb 8.1 L D (13.0-17.5) gm/dL Hct 24.8 L (39.0-53.0) % ABG pCO2 (35-45) mmHg ABG pO2 (83-108) mmHg ABG HCO3 (21-25) mmol/L ABG Total CO2 (19-24) mmol/L Sodium 136 L (137-145) mmol/L Potassium 3.2 L (3.5-5.1) mmol/L Carbon Dioxide 35 H (22-30) mmol/L Creatinine 0.52 L (0.66-1.25) mg/dL Glucose 105 H (74-99) mg/dL POC Glucose (mg/dL) 115 H (75-99) mg/dL Calcium 8.1 L (8.4-10.2) mg/dL Total Protein 4.8 L (6.3-8.2) g/dL Albumin 2.2 L (3.5-5.0) g/dL 11/16/21 11/16/21 11/16/21 Range/Units 06:06 08:23 11:33 RBC (4.30-5.90) m/uL Hgb (13.0-17.5) gm/dL Hct (39.0-53.0) % ABG pCO2 54 H (35-45) mmHg ABG pO2 73 L (83-108) mmHg ABG HCO3 36 H (21-25) mmol/L ABG Total CO2 38 H (19-24) mmol/L Sodium (137-145) mmol/L Potassium (3.5-5.1) mmol/L Carbon Dioxide (22-30) mmol/L Creatinine (0.66-1.25) mg/dL Glucose (74-99) mg/dL POC Glucose (mg/dL) 112 H 132 H (75-99) mg/dL Calcium (8.4-10.2) mg/dL Total Protein (6.3-8.2) g/dL Albumin (3.5-5.0) g/dL
--- NOTE | 2021-11-16 14:35 | P.GSCN ---
History of Present Illness Consult date: 11/16/21 Reason for Consult: IVC filter placement Requesting physician: Jenna Batres History of present illness: This is a 61-year-old malewho was admitted to the hospital on 10/23/2021 with COVID-19. He has a past medical history including diabetes mellitus, diabetic neuropathy, hypertension, hyperlipidemia, previous history of CVA, rheumatoid arthritis, BPH, chronic lower extremity edema, and gout. The patient underwent a CT angiogram of the chest on 10/26/2021 showing scattered filling defects within the lower lobe pulmonary arterial branches bilaterally right greater than left compatible with pulmonary embolism. He was started on anticoagulation. Patient was transferred to the intensive care unit on 10/29/2021 and was intubated the next day. On 11/10/2021 the patient underwent tracheostomy and PEG tube placement. Apparently on 11/14/2021 the patient started developing large amounts of bleeding from his tracheostomy with bleeding around the stoma and bleeding into his airways. He underwent bronchoscopic evaluation that showed a significant amount of clots in the airway preventing further ventilation. The tracheostomy was removed and the patient was reintubated. He went back to operating room for revision of the tracheostomy and exploration of the wound. There was diffuse bleeding seen from around the entire tracheostomy wound. During the time of the initial bleed his anticoagulation (Eliquis) was put on hold. Had a bilateral lower extremity venous duplex that showed no DVT biaterally 10 10/26/2021 and 11/14/2021. Vascular surgery was consulted for possible IVC filter placement. The patient remains in the ICU sedated and intubated. Nursing does not believe he's had any further bleeding. 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 History of Any Multi-Drug Resistant Organisms: MRSA Year Discovered:: 2007 MDRO Source:: back Past Surgical History: Adenoidectomy, Heart Catheterization, Orthopedic Surgery, Prostate Surgery, Tonsillectomy Additional Past Surgical History / Comment(s): Multiple facial surgeries to remove melanoma by R eyes lateral corner/neck dissection to remove numerous (70) lymph nodes, UVPP and deviated septum surgery, arthroscopy rt knee, 3 cardiac caths-last one done 04/14/18, TURP and 2 surgeries after to remove scar tissue, surgical removal back sore (MRSA). Past Anesthesia/Blood Transfusion Reactions: Previous Problems w/ Anesthesia Additional Past Anesthesia/Blood Transfusion Reaction / Comm: hard to wake up out of anestheia Past Psychological History: No Psychological Hx Reported Additional Psychological History / Comment(s): Pt resides with his daughter. He uses no assistive device. He drives. He recently was approved for disablitiy but still needs to apply for medicaid. Smoking Status: Never smoker Past Alcohol Use History: None Reported Past Drug Use History: None Reported - Past Family History Father Family Medical History: Myocardial Infarction ([place]) Additional Family Medical History / Comment(s): Father of a [place] at the age of 40yrs. Mother Family Medical History: Congestive Heart Failure (CHF), Coronary Artery Disease (CAD), CVA/TIA Additional Family Medical History / Comment(s): Mother had mitral valve regurgitation. She had a "massive" stroke and of CHF at the age of 75yrs. Brother(s) Family Medical History: Diabetes Mellitus Additional Family Medical History / Comment(s): Pt had one brother of a [place] at the age of 50 yrs, another brother of a [place] at the age of 55yrs after CABG and another brother who has 3 stents. Medications and Allergies Home Medications Medication Instructions Recorded Confirmed Type Furosemide [Lasix] 40 mg PO DAILY 03/12/18 10/23/21 History Losartan [Cozaar] 50 mg PO DAILY 03/12/18 10/23/21 History Metoprolol Tartrate [Lopressor] 50 mg PO BID 03/12/18 10/23/21 History Pregabalin [Lyrica] 200 mg PO BID 07/31/18 10/23/21 History metFORMIN HCL [Glucophage] 1,000 mg PO BID 07/31/18 10/23/21 History ALPRAZolam [Xanax] 0.25 mg PO BID PRN 10/23/21 10/23/21 History Acarbose 50 mg PO TID-W/MEALS 10/23/21 10/23/21 History Acetaminophen Tab [Tylenol Tab] 500 mg PO Q8H PRN 10/23/21 10/23/21 History Albuterol Nebulized [Ventolin 2.5 mg INHALATION RT-QID PRN 10/23/21 10/23/21 History Nebulized] Albuterol Sulfate [Ventolin HFA] 2 puff INHALATION RT-Q6H PRN 10/23/21 10/23/21 History Amitriptyline HCl [Elavil] 50 mg PO HS 10/23/21 10/23/21 History Clotrimazole/Betameth Cream 1 applic TOPICAL BID 10/23/21 10/23/21 History [Lotrisone] Fenofibrate Nanocrystallized 48 mg PO DAILY 10/23/21 10/23/21 History [Fenofibrate] Ibuprofen [Motrin] 800 mg PO Q8H PRN 10/23/21 10/23/21 History Sertraline [Zoloft] 50 mg PO DAILY 10/23/21 10/23/21 History carBAMazepine [TEGretol] 400 mg PO BID 10/23/21 10/23/21 History glipiZIDE XL [Glucotrol Xl] 10 mg PO DAILY 10/23/21 10/23/21 History Allergies Allergy/AdvReac Type Severity Reaction Status Date / Time gabapentin [From Neurontin] AdvReac EXCESSIVE Verified 10/23/21 08:15 SWEATING Surgical - Exam Vital Signs Temp Pulse Resp BP Pulse Ox 98.3 F 100 20 142/88 92 L 10/23/21 02:42 10/23/21 02:42 10/23/21 02:42 10/23/21 02:42 10/23/21 02:42 General appearance: The patient is sedated and intubated. HET: Head is normocephalic and atraumatic. Pupils are equal and reactive. Oropharynx is clear without lesions. Neck: Supple without lymphadenopathy. Trachea midline. Heart: S1 S2. Regular rate and rhythm. Lungs: On mechanical ventilation. No crackles or wheezes are heard. Abdomen: Soft, nontender, nondistended. Extremities: Normal skin color and turgor. Edema to bilateral lower extremities. Neurological: Oriented and intubated. Results - Labs 11/16/21 03:30 11/16/21 03:30 Abnormal Lab Results - Last 24 Hours (Table) 11/15/21 11/15/21 11/15/21 Range/Units 11:29 15:29 19:57 RBC (4.30-5.90) m/uL Hgb (13.0-17.5) gm/dL Hct (39.0-53.0) % ABG pCO2 (35-45) mmHg ABG pO2 (83-108) mmHg ABG HCO3 (21-25) mmol/L ABG Total CO2 (19-24) mmol/L Sodium (137-145) mmol/L Potassium (3.5-5.1) mmol/L Carbon Dioxide (22-30) mmol/L Creatinine (0.66-1.25) mg/dL Glucose (74-99) mg/dL POC Glucose (mg/dL) 229 H 166 H 143 H (75-99) mg/dL Calcium (8.4-10.2) mg/dL Total Protein (6.3-8.2) g/dL Albumin (3.5-5.0) g/dL 11/15/21 11/16/21 11/16/21 Range/Units 23:24 03:23 03:30 RBC 2.49 L (4.30-5.90) m/uL Hgb 8.1 L D (13.0-17.5) gm/dL Hct 24.8 L (39.0-53.0) % ABG pCO2 (35-45) mmHg ABG pO2 (83-108) mmHg ABG HCO3 (21-25) mmol/L ABG Total CO2 (19-24) mmol/L Sodium (137-145) mmol/L Potassium (3.5-5.1) mmol/L Carbon Dioxide (22-30) mmol/L Creatinine (0.66-1.25) mg/dL Glucose (74-99) mg/dL POC Glucose (mg/dL) 105 H 115 H (75-99) mg/dL Calcium (8.4-10.2) mg/dL Total Protein (6.3-8.2) g/dL Albumin (3.5-5.0) g/dL 11/16/21 11/16/21 11/16/21 Range/Units 03:30 06:06 08:23 RBC (4.30-5.90) m/uL Hgb (13.0-17.5) gm/dL Hct (39.0-53.0) % ABG pCO2 54 H (35-45) mmHg ABG pO2 73 L (83-108) mmHg ABG HCO3 36 H (21-25) mmol/L ABG Total CO2 38 H (19-24) mmol/L Sodium 136 L (137-145) mmol/L Potassium 3.2 L (3.5-5.1) mmol/L Carbon Dioxide 35 H (22-30) mmol/L Creatinine 0.52 L (0.66-1.25) mg/dL Glucose 105 H (74-99) mg/dL POC Glucose (mg/dL) 112 H (75-99) mg/dL Calcium 8.1 L (8.4-10.2) mg/dL Total Protein 4.8 L (6.3-8.2) g/dL Albumin 2.2 L (3.5-5.0) g/dL Diabetes panel 11/16/21 Range/Units 03:30 Sodium 136 L (137-145) mmol/L Potassium 3.2 L (3.5-5.1) mmol/L Chloride 101 (98-107) mmol/L Carbon Dioxide 35 H (22-30) mmol/L BUN 14 (9-20) mg/dL Creatinine 0.52 L (0.66-1.25) mg/dL Glucose 105 H (74-99) mg/dL Calcium 8.1 L (8.4-10.2) mg/dL AST 23 (17-59) U/L ALT 40 (4-49) U/L Alkaline Phosphatase 62 (38-126) U/L Total Protein 4.8 L (6.3-8.2) g/dL Albumin 2.2 L (3.5-5.0) g/dL Calcium panel 11/16/21 Range/Units 03:30 Calcium 8.1 L (8.4-10.2) mg/dL Albumin 2.2 L (3.5-5.0) g/dL Pituitary panel 11/16/21 Range/Units 03:30 Sodium 136 L (137-145) mmol/L Potassium 3.2 L (3.5-5.1) mmol/L Chloride 101 (98-107) mmol/L Carbon Dioxide 35 H (22-30) mmol/L BUN 14 (9-20) mg/dL Creatinine 0.52 L (0.66-1.25) mg/dL Glucose 105 H (74-99) mg/dL Calcium 8.1 L (8.4-10.2) mg/dL Adrenal panel 11/16/21 Range/Units 03:30 Sodium 136 L (137-145) mmol/L Potassium 3.2 L (3.5-5.1) mmol/L Chloride 101 (98-107) mmol/L Carbon Dioxide 35 H (22-30) mmol/L BUN 14 (9-20) mg/dL Creatinine 0.52 L (0.66-1.25) mg/dL Glucose 105 H (74-99) mg/dL Calcium 8.1 L (8.4-10.2) mg/dL Total Bilirubin 0.8 (0.2-1.3) mg/dL AST 23 (17-59) U/L ALT 40 (4-49) U/L Alkaline Phosphatase 62 (38-126) U/L Total Protein 4.8 L (6.3-8.2) g/dL Albumin 2.2 L (3.5-5.0) g/dL - Imaging Comments: Venous ultrasound bilateral lower extremities 10/26/2021 and 11/14/2021 reviewed with for DVT bilaterally CT scan - chest: report reviewed Assessment and Plan Assessment: 1. Bilateral pulmonary emboli on Eliquis, currently on hold for acute bleed 2. Acute bleed related to tracheostomy status post removal 3. Acute Hypoxic respiratory failure related to COVID-19 pneumonia status post intubation, tracheostomy and PEG tube placement 4. History of diabetes mellitus type 2 with diabetic neuropathy 5. Epistaxis, resolved 6. History of obstructive sleep apnea Plan: 1. Continue symptomatic and supportive care 2. Continue ICU management 3. There is no indication for placement of IVC filter for bilateral pulmonary emboli with no DVTs in lower extremitiesas 4. Recommend resuming anticoagulation for bilateral PE as bleeding has resolved Thank you for this consultation allowing us take part in the plan of care of your patient during his hospital stay. The impression and plan of care has been dictated as directed. Dr. Perry I performed a history and examination of this patient, discussed the same with the dictator. I agree with the dictator's note ,documented as a scribe. Any additional findings or plans will be noted.
--- NOTE | 2021-11-16 14:49 | P.PN ---
Progress Note - Text Progress Note Date: 11/16/21 Chief Complaint: Short of breath This is a pleasant 61-year-old patient, chronic stable medical conditions include diabetes, hypertension, hyperlipidemia, osteoarthritis, peripheral neuropathy, chronic gout. Patient presents with increasing shortness of breath. Cough. Clear sputum. Fever and chills. Tired rundown decrease appetite and diarrhea about 2 times a day. Patient tested positive for COVID-19 on October 09. His initial rapid COVID-19 was negative. In the send out came back positive. Patient did not take the vaccine against COVID-19. He is on 8 L of oxygen this morning. He is outside the window for Remdesivir. Admitted with COVID 19 pneumonitis, acute hypoxic respiratory failure. Started on Decadron. IV fluids. October 26 chest CTA showed bilateral pulmonary embolism. Breathing cord worse in October 30 patient is intubated. Requiring various drips. 2 feeding was started. November 10 patient got a tracheostomy and a PEG tube. Patient subsequently had a large bleed from the tracheostomy site. Desaturated. Tracheostomy had to be removed. Bedside bronchoscopy was done. Large blood loss was removed. Was put back on the ventilator/intubated. Required FFP. November 14: ICU. Patient had no bleeding around the tracheostomy site. Patient had desaturated. Tracheostomy had to be removed. The aspnet developer, surgeon, anesthesia@tibia the bedside. Bronchoscopy was done. Blood was removed from the trachea and the bronchus. Patient put back on the ventilator. Currently 50/10. Drips include fentanyl, propofol, cleviprex. Given FFP. Review of systems: Intubated. Anticoagulation obviously has been discontinued. younger daughter the bedside. Updated. November 15: ICU. Ventilator: 60/90. Drips included propofol and fentanyl. Telemetry: Sinus rhythm. 2 feeding at 10 mL an hour. Another daughter the bedside. November 16: ICU. 2 feeding at 10 mL an hour. Ventilator: 50/8. Drips include propranolol, factor. Since patient cannot be anticoagulated at the present time. [place] filter being ordered. Review of systems: Patient intubated Active Medications Acetaminophen (Acetaminophen Tab 325 Mg Tab) 650 mg PO Q6HR PRN PRN Reason: Mild Pain or Fever > 100.5 Last Admin: 10/29/21 15:46 Dose: 650 mg Documented by: Albuterol Sulfate (Albuterol Hfa Inhaler) 2 puff INHALATION RT-QID PRN PRN Reason: Shortness Of Breath Last Admin: 11/14/21 20:22 Dose: 2 puff Documented by: Artificial Tears (Artificial Tears-Hypromellose Drops 15 Ml Btl) 2 drops BOTH EYES Q4HR [facility] Last Admin: 11/16/21 12:41 Dose: 2 drops Documented by: Ascorbic Acid (Ascorbic Acid 500 Mg Tab) 1,000 mg PO DAILY [facility] Last Admin: 11/16/21 08:17 Dose: 1,000 mg Documented by: Bisacodyl (Bisacodyl 10 Mg Supp) 10 mg RECTAL BID [facility] Last Admin: 11/16/21 08:22 Dose: Not Given Documented by: Chlorhexidine Gluconate (Chlorhexidine Gluconate 15 Ml Cup) 15 ml MUCOUS MEM BID [facility] Last Admin: 11/16/21 08:18 Dose: 15 ml Documented by: Cholecalciferol (Cholecalciferol 25 Mcg (1000 Iu) Tablet) 25 mcg PO DAILY [facility] Last Admin: 11/16/21 08:17 Dose: 25 mcg Documented by: Dexamethasone Sodium Phosphate (Dexamethasone Sod Phosphate 10 Mg/Ml 1 Ml Vial) 6 mg IVP DAILY [facility] Last Admin: 11/16/21 08:17 Dose: 6 mg Documented by: Docusate Sodium (Docusate Oral Soln 100 Mg/10 Ml Cup) 100 mg PO BID [facility] Last Admin: 11/16/21 08:17 Dose: 100 mg Documented by: Enoxaparin Sodium (Enoxaparin 40 Mg/0.4 Ml Syringe) 40 mg SQ DAILY [facility] Last Admin: 11/16/21 08:16 Dose: 40 mg Documented by: Furosemide (Furosemide 10 Mg/Ml 4 Ml Vial) 40 mg IV DAILY [facility] Last Admin: 11/16/21 08:18 Dose: 40 mg Documented by: Hydralazine HCl (Hydralazine Hcl 20 Mg/Ml 1 Ml Vial) 20 mg IVP Q4HR PRN PRN Reason: Blood Pressure - High SBP >160 Last Admin: 11/15/21 10:14 Dose: 20 mg Documented by: Propofol 1,000 mg/ IV Solution 100 mls @ 0 mls/hr IV .Q0M [facility]; Protocol Last Admin: 11/16/21 13:10 Dose: 60 mcg/kg/min, 47.016 mls/hr Documented by: Piperacillin Sod/Tazobactam (Sod 3.375 gm/ Sodium Chloride) 100 mls @ 25 mls/hr IVPB Q8HR [facility] Last Admin: 11/16/21 08:19 Dose: 25 mls/hr Documented by: Cisatracurium Besylate 200 mg/ (Sodium Chloride) 200 mls @ 10.8 mls/hr IV .[id number] [facility]; Protocol Last Titration: 11/15/21 10:30 Dose: 0 mcg/kg/min, 0 mls/hr Documented by: Fentanyl Citrate 2,500 mcg/ (Sodium Chloride) 250 mls @ 4.082 mls/hr IV .Q24H [facility]; Protocol Last Titration: 11/16/21 11:34 Dose: 2 mcg/kg/hr, 16.329 mls/hr Documented by: Clevidipine 25 mg/ IV Solution 50 mls @ 2 mls/hr IV .Q24H [facility]; Protocol Last Titration: 11/15/21 11:11 Dose: 0 mg/hr, 0 mls/hr Documented by: Insulin Aspart (Insulin Aspart (Novolog) 100 Unit/Ml Vial) 0 unit SQ Q4HR [facility]; Protocol Last Admin: 11/16/21 12:16 Dose: Not Given Documented by: Insulin Detemir (Insulin Detemir (Levemir) 100 Unit/Ml Syr) 24 unit SQ HS [facility] Last Admin: 11/15/21 20:49 Dose: 24 unit Documented by: Lactulose (Lactulose 20 Gm/30 Ml Cup) 10 gm PO BID [facility] Last Admin: 11/16/21 08:22 Dose: Not Given Documented by: Metoprolol Tartrate (Metoprolol Tartrate 25 Mg Tab) 25 mg PO BID [facility] Last Admin: 11/16/21 08:17 Dose: 25 mg Documented by: Miscellaneous Information (Potassium Replacement Protocol 1 Each Misc) 1 each MISCELLANE DAILY PRN; Protocol PRN Reason: Per Protocol Miscellaneous Information (Potassium Replacement Protocol 1 Each Misc) 1 each MISCELLANE DAILY PRN; Protocol PRN Reason: Per Protocol Pregabalin (Pregabalin 100 Mg Cap) 200 mg PO BID [facility] Last Admin: 11/16/21 08:18 Dose: 200 mg Documented by: Sertraline HCl (Sertraline 50 Mg Tab) 50 mg PO DAILY [facility] Last Admin: 11/16/21 08:18 Dose: 50 mg Documented by: Zinc Sulfate (Zinc Sulfate 220 Mg Cap) 220 mg PO DAILY [facility] Last Admin: 11/16/21 08:17 Dose: 220 mg Documented by: Social history: Patient is on Social Security. Does not smoke or drink alcohol. Patient's daughters family lives with him. Family history: Father at the age of 40 with heart attack Physical examination: VITAL SIGNS: 98, 54, 22, 97/51, 98% on ventilator GENERAL: Laying in bed, intubated. PEG tube . LUNGS: Respiratory rate increased,. PSYCH: Unable to assess Rest of the exam per nursing and pulmonary INVESTIGATIONS, reviewed in the clinical context: November 14: White count 15.9 hemoglobin 11.6 platelets 318 d-dimer 7.69 potassium 3.4 creatinine 0.43 Blood culture positive for Staphylococcus epidermidis/coagulates negative. November 16: White count 17 hemoglobin 8.1 potassium 3.2 creatinine 0.5 to October 28: D-dimer 13.4 to October 26: D-dimer 8.48 CRP 24 Chest CTA [October 26: biLateral pulmonary embolism Doppler ultrasound lower extremity: Negative for DVT October 24: White count 9.7 hemoglobin 15.3 platelets 221 d-dimer 1.93 progression 4.2 creatinine 0.71 CRP 5.5 pro-calcitonin 0.08 White count 9.9 hemoglobin 16 platelets 234 d-dimer 0.98 sodium 141 potassium 3.4 creatinine 0.81 Lactic acid 2.9 LDH 1422 CRP 7.5 EKG tracing personally reviewed by me-normal sinus rhythm. Nonspecific ST segment changes. Chest x-ray film personally reviewed by me-bilateral infiltrates Assessment and plan: -Acute severe COVID 19 pneumonitis in a patient who did not take the COVID-19 vaccine: Slow to respond Dexamethasone, vitamin C, vitamin D, zinc. Patient's outside the window for Remdesivir. -Acute hypoxic respiratory failure from COVID-19: Slow to respond intubated October 30. FiO2 50 and a PEEP of8 -Active bleeding around tracheostomy into the trachea and lungs. Status post bronchoscopy. Evacuation of large amounts of blood clot. Tracheostomy removed. Patient reintubated -Bilateral pulmonary embolism secondary to COVID-19 Eliquis -discontinued because of bleeding. Pending [place] filter. -Essential hypertension Lopressor 25 mg twice a day, -Diabetes mellitus type 2, on oral hypoglycemic, uncontrolled with hyperglycemia Levemir 24 units daily at bedtime. Follow Accu-Cheks -Chronic insomnia for medical conditions Elavil 50 mg daily at bedtime -Hyperlipidemia TriCor 48 mg daily -Hypoalbuminemia Acute phase reactant -Obstructive sleep apnea On CPAP at home -Pneumomediastinum and subcutis emphysema complications of COVID-19 indicated pneumonia. -Diabetes right upper apical pneumothorax less than 5%. -Diabetic peripheral neuropathy Lyrica 200 mg twice daily -Full code Drips : fentanyl , propofol . , Ventilator. Follow labs. Prognosis guarded. Empirically on IV Zosyn. [place] filter ordered by pulmonary. Vascular consulted.
[2021-11-16 15:57] LABS: Glucose,Whole Blood 151 mg/dL (75-99)
--- NOTE | 2021-11-16 16:18 | P.PN ---
Subjective Progress Note Date: 11/16/21 Principal diagnosis: Acute hypoxic respiratory failure secondary to COVID-19 pneumonia complicated with pulmonary embolism 11/15/2021, the patient has not shown any active bleeding from his tracheostomy site. As mentioned yesterday, the tube has been removed and the patient is currently intubated again. The wound over the neck is dry clean and intact. The patient is on no anticoagulation. Vascular surgery consultation was placed for possibly insertion of a IVC filter. Meanwhile, the patient remains sedated and paralyzed. This morning, he is on propofol running at 70 mcg/kg per minute. He is also on fentanyl at 3 mcg/kg/h Nimbex is running at 3 mcg/kg per minute. The patient is on a mechanical ventilator. This morning, he is on a rate of 22, tidal volume of 400, FiO2 of 70% with a PEEP of 10. His peak airway pressures around 37. He is returning his volume is without any major difficulties. No significant bloody secretions from his orotracheal tube. Breath sounds are equal and symmetrical bilaterally. Chest x-ray showed a stable right apical pneumothorax. There is still diffuse breath and pulmonary infiltrates consistent with overnight he related pneumonia which remains unchanged compared to yesterday. In terms of therapy, the patient is off anticoagulation. Note that the patient had pulmonary embolism at a time of his original presentation b [facility] in 10/26/2021. The patient remains on Decadron 6 mg IV every 24 hours. He is on empiric antibiotic coverage with IV Zosyn knowing that his sputum is shown Streptococcus initially and later on MSSA. He is on no pressors. He is hypertensive. He is on a chiropractor for blood pressure control which is running at 20 mL milligrams an hour. Note that his enteral feeding was stopped briefly yesterday due to the events and possibility of some questionable GI bleed. This morning, there is no active bleeding from his PEG tube and diffuse disease will be restarted. White cell count of 16.7. Hemoglobin stable at 7.9. Platelet count is at 325. Blood gas show a pH of 7.3 with a pCO2 of 68 and pO2 of 76. Rest of the blood work is stable. The abdomen is at 14 with a creatinine of 0.35. Inflammatory markers last checked was on 11/14/2021 and his LDH level was down to 949 and the CRP level was at 5.8. Reevaluated today on 11/16/2021, patient remains in the ICU, intubated and mechanically ventilated. Patient has been intubated since 10/30, patient had a tracheostomy and PEG tube placement. Patient is presently on assist control rate of 22, volume is 400 FiO2 50% and PEEP of 8. ABG showed a pO2 of 73 pCO2 54 pH of 7.43. Peak airway pressure is 31 plateau pressure is 26. A shunt is on fentanyl at 2 mcg/kg/h, he is on propofol at 60 mcg/kg/m, patient is not requiring any paralytics, and today I kept the PEEP at 8, no changes were made in his ventilator settings. Patient is on Decadron 6 mg IV push daily, he is also on enteral feeding vital HPF 10 mL per hour. Vascular surgery was consulted, and I'm strongly recommending a placement of IVC filter, however vascular surgery seems to be reluctant to place IVC filter, patient has absolute contraindication to anticoagulation therapy at this point, and the only recommendation at this point would be to place IVC filter for prevention of further clotting that may come from lower extremities although his venous Doppler is negative at this point. Again patient cannot be placed back on anticoagulation therapy considering the severity of the bleeding he had from the tracheostomy site, requiring removal of tracheostomy and the intubation. Again I have no plans to start this patient on anticoagulation therapy after hearing this story about his significant bleeding from the tracheostomy site. And again the patient has absolute contraindication to anticoagulation therapy. Try to get another vascular surgery consult, however the vascular surgeon I consulted is not available and he is not service delivery management consultant. WBC count is 7 today hemoglobin is 8.1. ABG as noted earlier. Metabolic profile is normal Objective - Vital Signs Vital signs: Vital Signs Temp 98 F 11/16/21 12:00 Pulse 67 11/16/21 15:00 Resp 22 11/16/21 15:00 BP 105/64 11/16/21 07:00 Pulse Ox 97 11/16/21 15:00 Intake & Output 11/15/21 11/16/21 11/16/21 18:59 06:59 18:59 Intake Total 0366.331 3391.901 1102.102 Output Total 0847 095 4154 Balance 370.086 626.901 -522.898 Weight 130.6 kg 130.6 kg Intake: IV 348 299 307 0.9 Normal Saline @ 20 mL 190 260 180 /hr KVO Piperacillin-Tazobactam 3 125 100 .375 gm In Sodium Chloride 0.9% 100 ml @ 25 mls/hr IVPB Q8HR [facility] Rx# :[id number] Pressure bag 33 39 27 Intake, IV Titration 982.086 622.901 545.102 Amount Cisatracurium 200 mg In 97.92 Sodium Chloride 0.9% 180 ml @ 1.5 MCG/KG/MIN 10.8 mls/hr IV .[id number] [facility] Rx #:[id number] Clevidipine Butyrate 25 159.067 mg In Empty Bag 1 bag @ 1 MG/HR 2 mls/hr IV .Q24H [facility] Rx#:[id number] fentaNYL (PF) 2,500 mcg 335.841 232.697 170.098 In Sodium Chloride 0.9% 200 ml @ 0.5 MCG/KG/HR 4. 082 mls/hr IV .Q24H [facility] Rx#:[id number] propofoL 1,000 mg In 389.258 390.204 375.004 Empty Bag 1 bag @ Titrate IV .Q0M [facility] Rx#: [id number] Tube Feeding 80 140 110 Other 40 90 140 Output: Urine 4569 001 0675 Other: Voiding Method Indwelling Catheter Indwelling Catheter Indwelling Catheter ABP, PAP, CO, CI - Last Documented Arterial Blood Pressure 144/68 - Exam GENERAL EXAM: Alert, restless 61-year-old male patient, intubated and mechanically ventilated. HEAD: Normocephalic. Atraumatic. EYES: Normal reaction of pupils, equal size. NOSE: Clear with pink turbinates. THROAT: No erythema or exudates. Endotracheal tube is intact. Tracheostomy site seems to be intact, no active bleeding. NECK: No masses, no JVD. CHEST: No chest wall deformity. LUNGS: Cold at the bases bilaterally. CVS: S1 and S2 normal with no audible murmur, regular rhythm. ABDOMEN: No hepatosplenomegaly, normal bowel sounds, no guarding or rigidity. The patient has also had a PEG tube in place which is currently intact. No evidence of any bleeding around the PEG tube. SPINE: No scoliosis or deformity SKIN: No rashes CENTRAL NERVOUS SYSTEM: Not fully assessed patient is sedated, but not paralysis. EXTREMITIES: Clubbing edema or cyanosis. - Labs CBC & Chem 7: 11/16/21 03:30 11/16/21 03:30 Labs: Abnormal Lab Results - Last 24 Hours (Table) 11/15/21 11/15/21 11/16/21 Range/Units 19:57 23:24 03:23 RBC (4.30-5.90) m/uL Hgb (13.0-17.5) gm/dL Hct (39.0-53.0) % ABG pCO2 (35-45) mmHg ABG pO2 (83-108) mmHg ABG HCO3 (21-25) mmol/L ABG Total CO2 (19-24) mmol/L Sodium (137-145) mmol/L Potassium (3.5-5.1) mmol/L Carbon Dioxide (22-30) mmol/L Creatinine (0.66-1.25) mg/dL Glucose (74-99) mg/dL POC Glucose (mg/dL) 143 H 105 H 115 H (75-99) mg/dL Calcium (8.4-10.2) mg/dL Total Protein (6.3-8.2) g/dL Albumin (3.5-5.0) g/dL 11/16/21 11/16/21 11/16/21 Range/Units 03:30 03:30 06:06 RBC 2.49 L (4.30-5.90) m/uL Hgb 8.1 L D (13.0-17.5) gm/dL Hct 24.8 L (39.0-53.0) % ABG pCO2 54 H (35-45) mmHg ABG pO2 73 L (83-108) mmHg ABG HCO3 36 H (21-25) mmol/L ABG Total CO2 38 H (19-24) mmol/L Sodium 136 L (137-145) mmol/L Potassium 3.2 L (3.5-5.1) mmol/L Carbon Dioxide 35 H (22-30) mmol/L Creatinine 0.52 L (0.66-1.25) mg/dL Glucose 105 H (74-99) mg/dL POC Glucose (mg/dL) (75-99) mg/dL Calcium 8.1 L (8.4-10.2) mg/dL Total Protein 4.8 L (6.3-8.2) g/dL Albumin 2.2 L (3.5-5.0) g/dL 11/16/21 11/16/21 11/16/21 Range/Units 08:23 11:33 15:56 RBC (4.30-5.90) m/uL Hgb (13.0-17.5) gm/dL Hct (39.0-53.0) % ABG pCO2 (35-45) mmHg ABG pO2 (83-108) mmHg ABG HCO3 (21-25) mmol/L ABG Total CO2 (19-24) mmol/L Sodium (137-145) mmol/L Potassium (3.5-5.1) mmol/L Carbon Dioxide (22-30) mmol/L Creatinine (0.66-1.25) mg/dL Glucose (74-99) mg/dL POC Glucose (mg/dL) 112 H 132 H 151 H (75-99) mg/dL Calcium (8.4-10.2) mg/dL Total Protein (6.3-8.2) g/dL Albumin (3.5-5.0) g/dL Assessment and Plan Assessment: Impression: Acute hypoxic and 40 failure secondary to COVID-19 pneumonia and secondary to acute pulmonary embolism which is most likely a complication related to COVID-19 infection. Patient is not vaccinated. Patient was intubated on 10/30, underwent tracheostomy on 11/10, however he developed significant bleeding from the tracheostomy site/his stoma and he required reintubation with endotracheal tube, and he is now off anticoagulation therapy and at this point I believe the patient has absolute contraindication to restart anticoagulation therapy, and I'm strongly recommending IVC filter placement on this patient, and would like vascular surgery to address this issue. Acute bilateral pulmonary embolism Type 2 diabetes with diabetic neuropathy Epistaxis, resolved after stopping anticoagulation therapy History of obstructive sleep apnea and previous UPPP History of right eye melanoma Previous history of CVA History of rheumatoid arthritis and gout Previous history of MRSA infection in the back. Elevated inflammatory markers Pneumomediastinum and subcutaneous emphysema at the complication of COVID-19 pneumonia Tiny right apical pneumothorax Hypertension Dyslipidemia Recommendation: Continue ventilatory support Continue FiO2 at 50% and PEEP at 8 Continue to hold paralytics as much as possible Vascular surgery to place IVC filter, patient has absolute contraindication to anticoagulation therapy at this point, and he is very high risk of developing DVT and pulmonary embolism again. Although he has negative Doppler at this point I'm strongly recommending IVC filter placement. Continue Decadron. Continue Zosyn. Continue insulin and monitor sugars closely. Monitor pneumothorax. Monitor for bleeding. Continue nutritional support/enteral feeding Continue COVID-19 cocktail. Discussed his status today with his sister today. And made aware that the patient is critically ill. Critical care time is over 30 minutes. Patient will need revision of his tracheostomy site and tracheostomy to be placed again. Reviewed the notes from vascular surgery, recommending placing the patient back on anticoagulation therapy, and at this point am extremely reluctant to do it only because I believe that is absolute contraindication to placement on anticoagulation therapy since the patient had a significant the bleeding from tracheostomy site recently. Again critical care time is over 30 Time with Patient: Greater than 30
[2021-11-16 19:49] LABS: Glucose,Whole Blood 140 mg/dL (75-99)
[2021-11-16] MEDS: INSULIN DETEMIR (LEVEMIR) 100 UNIT/ML SYR SQ SCH (20:37)
[2021-11-16 23:56] LABS: Glucose,Whole Blood 100 mg/dL (75-99)
[2021-11-17] MEDS: INSULIN ASPART (NovoLOG) 100 UNIT/ML VIAL SQ SCH ×6 (00:01→20:35)
[2021-11-17] MEDS: hydrALAZINE HCL 20 MG/ML 1 ML VIAL IVP PRN (01:07)
[2021-11-17] MEDS: CLEVIDIPINE BUTYRATE 25 MG in EMPTY BAG 1 BAG IV SCH ×8 (01:40→11:53)
[2021-11-17] MEDS: fentaNYL (PF) 2,500 MCG in SODIUM CHLORIDE 0.9% 200 ML IV SCH ×3 (02:57→16:21)
[2021-11-17] MEDS ORDERED: HYDROCORTISONE SUCCINATE 100 MG/2 ML VIAL IV STA (03:01)
[2021-11-17 03:12] LABS: Glucose,Whole Blood 164 mg/dL (75-99)
[2021-11-17] MEDS: ARTIFICIAL TEARS-HYPROMELLOSE DROPS 15 ML BTL BOTH EYES SCH ×5 (03:38→19:56)
[2021-11-17 03:44] LABS: ALT 83 U/L (4-49); AST 74 U/L (17-59); African American GFR (CKD) >90 (>60 ml/min/1.73 sqM); Albumin 3.2 g/dL (3.5-5.0); Alkaline Phosphatase 106 U/L (38-126); Anion Gap 6 mmol/L; Basophils # (A) 0.1 k/uL (0-0.2); Basophils % (A) 1 %; Blood Urea Nitrogen 16 mg/dL (9-20); Calcium 8.6 mg/dL (8.4-10.2); Carbon Dioxide 31 mmol/L (22-30); Chloride 100 mmol/L (98-107); Eosinophils # (A) 0.3 k/uL (0-0.7); Eosinophils % (A) 2 %; Glucose 163 mg/dL (74-99); HCT 34.4 % (39.0-53.0); Hypochromasia Moderate; Lymphocytes # (A) 3.1 k/uL (1.0-4.8); Lymphocytes % (A) 19 %; MCH 32.7 pg (25.0-35.0); MCHC 32.1 g/dL (31.0-37.0); MCV 101.9 fL (80.0-100.0); Macrocytosis Slight; Monocytes # (A) 0.9 k/uL (0-1.0); Monocytes % (A) 5 %; Neutrophils # (A) 12.1 k/uL (1.3-7.7); Neutrophils % (A) 71 %; Non-African American GFR(CKD) >90 (>60 ml/min/1.73 sqM); Platelet Count 352 k/uL (150-450); Potassium 3.3 mmol/L (3.5-5.1); RBC 3.38 m/uL (4.30-5.90); RDW 15.6 % (11.5-15.5); Sodium 137 mmol/L (137-145); Total Bilirubin 1.7 mg/dL (0.2-1.3); Total Protein 6.6 g/dL (6.3-8.2); WBC 16.9 k/uL (3.8-10.6)
[2021-11-17 03:45] LABS: HGB 11.1 gm/dL (13.0-17.5)
[2021-11-17] MEDS ORDERED: Potassium Replacement Protocol 1 EACH MISC MISCELLANE PRN (04:59)
[2021-11-17] MEDS: POTASSIUM BICARBONATE/CIT AC 20 MEQ TABLET.EFF NG-TUBE SCH ×2 (05:11→05:48)
[2021-11-17] MEDS: CISATRACURIUM 200 MG in SODIUM CHLORIDE 0.9% 180 ML IV SCH ×3 (05:43→23:59)
[2021-11-17 06:28] LABS: ABG Base Excess 7.2 mmol/L; ABG HCO3 34 mmol/L (21-25); ABG Oxygen Saturation 90.3 % (94-97); ABG PCO2 67 mmHg (35-45); ABG PH 7.31 (7.35-7.45); ABG PO2 67 mmHg (83-108); ABG TCO2 36 mmol/L (19-24)
[2021-11-17 06:30] LABS: Allen Test Performed? No
[2021-11-17] MEDS: PIPERACILLIN-TAZOBACTAM 3.375 GM in SODIUM CHLORIDE 0.9% 100 ML IVPB SCH ×2 (08:03→16:28)
[2021-11-17] MEDS: ENOXAPARIN 40 MG/0.4 ML SYRINGE SQ SCH (08:04)
[2021-11-17] MEDS: CHLORHEXIDINE GLUCONATE 15 ML CUP MUCOUS MEM SCH ×2 (08:04→20:39)
[2021-11-17] MEDS: PREGABALIN 100 MG CAP PO SCH ×2 (08:05→20:40)
[2021-11-17] MEDS: ZINC SULFATE 220 MG CAP PO SCH (08:05)
[2021-11-17] MEDS: SERTRALINE 50 MG TAB PO SCH (08:06)
[2021-11-17] MEDS: DEXAMETHASONE SOD PHOSPHATE 10 MG/ML 1 ML VIAL IVP SCH ×2 (08:06→20:40)
[2021-11-17] MEDS: FUROSEMIDE 10 MG/ML 4 ML VIAL IV SCH (08:06)
[2021-11-17] MEDS: METOPROLOL TARTRATE 25 MG TAB PO SCH ×2 (08:06→22:24)
[2021-11-17] MEDS: ASCORBIC ACID 500 MG TAB PO SCH (08:06)
[2021-11-17] MEDS: CHOLECALCIFEROL 25 MCG (1000 IU) TABLET PO SCH (08:06)
[2021-11-17] MEDS: LACTULOSE 20 GM/30 ML CUP PO SCH ×2 (08:09→22:24)
[2021-11-17] MEDS: bisacodyL 10 MG SUPP RECTAL SCH ×2 (08:09→22:23)
[2021-11-17] MEDS: DOCUSATE ORAL SOLN 100 MG/10 ML CUP PO SCH ×2 (08:09→20:40)
[2021-11-17 08:11] LABS: Glucose,Whole Blood 231 mg/dL (75-99)
--- NOTE | 2021-11-17 09:21 | XR ---
EXAMINATION TYPE: XR chest 1V portable DATE OF EXAM: 11/17/2021 COMPARISON: 11/16/2021 HISTORY: Shortness of breath TECHNIQUE: Single frontal view of the chest is obtained. FINDINGS: ET tube and left-sided central line noted and there is diffuse bilateral infiltrates small bilateral effusions. Hypertrophic and degenerative changes spine. Surgical clips seen in the soft ti ssue neck. No pneumothorax. IMPRESSION: Bilateral diffuse infiltrate stable.
[2021-11-17] MEDS ORDERED: ENOXAPARIN 40 MG/0.4 ML SYRINGE SQ STA (11:09)
[2021-11-17 11:37] LABS: Glucose,Whole Blood 213 mg/dL (75-99)
[2021-11-17] MEDS ORDERED: CEFEPIME 2 GM in SODIUM CHLORIDE 0.9% 100 ML IVPB STA (12:53)
[2021-11-17] MEDS: PANTOPRAZOLE 40 MG/10 ML VIAL IVP SCH (12:54)
--- NOTE | 2021-11-17 13:37 | P.PN ---
Subjective Progress Note Date: 11/17/21 CHIEF COMPLAINT: COVID-19 pneumonia HISTORY OF PRESENT ILLNESS: Patient is in the ICU on mechanical ventilation and sedated. He is status post tracheostomy and PEG tube placement on 11/10/2021. Patient had bleeding at tracheostomy site and required revision and removal of tracheostomy. Patient is currently intubated and required to be placed back on sedation. He has had no overt further bleeding from tracheostomy site. He is tolerating tube feedings. Afebrile. Patient had decrease in oxygen saturation. White count did increase to 16.9. Critical care service added cefepime. They also increased the Lovenox to 80 mg subcu every 12. Hemoglobin is 11.1 and potassium 3.3 Patient seen and examined with Dr. daniel PHYSICAL EXAM: VITAL SIGNS: Reviewed. GENERAL: Well-developed in no acute distress. HEENT: Head is atraumatic, normocephalic. dressing at old trach site clean, dry and intact ABDOMEN: Soft. Nondistended. Nontender. PEG tube site clean dry and intact NEUROLOGIC: Intubated and sedated ASSESSMENT: 1. Acute hypoxic respiratory failure secondary to COVID-19 pneumonia requiring mechanical ventilation 2. Severe protein calorie malnutrition 3. Bilateral pulmonary emboli 4. Bleeding at tracheostomy site status post revision and removal of tracheostomy 5. Hypokalemia PLAN: -Revision of tracheostomy scheduled for 11/18/[address] Daniel -Hold tube feedings and Lovenox after midnight -Continue ICU management and supportive care -Potassium being replaced Physician Loading Machine Operator note has been reviewed by physician. Signing provider agrees with the documented findings, assessment, and plan of care. Objective - Vital Signs Vital signs: Vital Signs Temp 98.9 F 11/17/21 08:00 Pulse 93 11/17/21 12:00 Resp 22 11/17/21 12:00 BP 105/64 11/17/21 03:00 Pulse Ox 94 L 11/17/21 12:00 Intake & Output 11/16/21 11/17/21 11/17/21 18:59 06:59 18:59 Intake Total 4494.191 4469.331 979.438 Output Total 2513 980 5029 Balance -434.196 714.331 -700.562 Weight 130.6 kg 128.9 kg Intake: IV 476 276 138 0.9 Normal Saline @ 20 mL 240 240 120 /hr KVO Piperacillin-Tazobactam 3 200 .375 gm In Sodium Chloride 0.9% 100 ml @ 25 mls/hr IVPB Q8HR [facility] Rx# :[id number] Pressure bag 36 36 18 Intake, IV Titration 699.804 793.331 701.438 Amount Cisatracurium 200 mg In 45.0 Sodium Chloride 0.9% 180 ml @ 1 MCG/KG/MIN 4.899 mls/hr IV .Q24H [facility] Rx#: [id number] Cisatracurium 200 mg In 64.92 Sodium Chloride 0.9% 180 ml @ 1.5 MCG/KG/MIN 10.8 mls/hr IV .[id number] [facility] Rx #:[id number] Clevidipine Butyrate 25 89.600 173.834 mg In Empty Bag 1 bag @ 1 MG/HR 2 mls/hr IV .Q24H [facility] Rx#:[id number] fentaNYL (PF) 2,500 mcg 224.800 126.416 164.11 In Sodium Chloride 0.9% 200 ml @ 0.5 MCG/KG/HR 4. 082 mls/hr IV .Q24H [facility] Rx#:[id number] propofoL 1,000 mg In 475.004 512.395 318.494 Empty Bag 1 bag @ Titrate IV .Q0M [facility] Rx#: [id number] Tube Feeding 140 140 70 Other 170 90 70 Output: Urine 2683 200 0667 Other: Voiding Method Indwelling Catheter Indwelling Catheter Indwelling Catheter # Bowel Movements 1 ABP, PAP, CO, CI - Last Documented Arterial Blood Pressure 158/64 - Labs CBC & Chem 7: 11/17/21 03:15 11/17/21 03:15 Labs: Abnormal Lab Results - Last 24 Hours (Table) 11/16/21 11/16/21 11/16/21 Range/Units 15:56 19:47 23:54 WBC (3.8-10.6) k/uL RBC (4.30-5.90) m/uL Hgb (13.0-17.5) gm/dL Hct (39.0-53.0) % MCV (80.0-100.0) fL RDW (11.5-15.5) % Neutrophils # (1.3-7.7) k/uL ABG pH (7.35-7.45) ABG pCO2 (35-45) mmHg ABG pO2 (83-108) mmHg ABG HCO3 (21-25) mmol/L ABG Total CO2 (19-24) mmol/L ABG O2 Saturation (94-97) % Potassium (3.5-5.1) mmol/L Carbon Dioxide (22-30) mmol/L Creatinine (0.66-1.25) mg/dL Glucose (74-99) mg/dL POC Glucose (mg/dL) 151 H 140 H 100 H (75-99) mg/dL Total Bilirubin (0.2-1.3) mg/dL AST (17-59) U/L ALT (4-49) U/L Albumin (3.5-5.0) g/dL 11/17/21 11/17/21 11/17/21 Range/Units 03:10 03:15 03:15 WBC 16.9 H (3.8-10.6) k/uL RBC 3.38 L (4.30-5.90) m/uL Hgb 11.1 L D (13.0-17.5) gm/dL Hct 34.4 L (39.0-53.0) % MCV 101.9 H (80.0-100.0) fL RDW 15.6 H (11.5-15.5) % Neutrophils # 12.1 H (1.3-7.7) k/uL ABG pH (7.35-7.45) ABG pCO2 (35-45) mmHg ABG pO2 (83-108) mmHg ABG HCO3 (21-25) mmol/L ABG Total CO2 (19-24) mmol/L ABG O2 Saturation (94-97) % Potassium 3.3 L (3.5-5.1) mmol/L Carbon Dioxide 31 H (22-30) mmol/L Creatinine 0.40 L (0.66-1.25) mg/dL Glucose 163 H (74-99) mg/dL POC Glucose (mg/dL) 164 H (75-99) mg/dL Total Bilirubin 1.7 H (0.2-1.3) mg/dL AST 74 H (17-59) U/L ALT 83 H (4-49) U/L Albumin 3.2 L (3.5-5.0) g/dL 11/17/21 11/17/21 11/17/21 Range/Units 05:23 08:09 11:36 WBC (3.8-10.6) k/uL RBC (4.30-5.90) m/uL Hgb (13.0-17.5) gm/dL Hct (39.0-53.0) % MCV (80.0-100.0) fL RDW (11.5-15.5) % Neutrophils # (1.3-7.7) k/uL ABG pH 7.31 L (7.35-7.45) ABG pCO2 67 H (35-45) mmHg ABG pO2 67 L (83-108) mmHg ABG HCO3 34 H (21-25) mmol/L ABG Total CO2 36 H (19-24) mmol/L ABG O2 Saturation 90.3 L (94-97) % Potassium (3.5-5.1) mmol/L Carbon Dioxide (22-30) mmol/L Creatinine (0.66-1.25) mg/dL Glucose (74-99) mg/dL POC Glucose (mg/dL) 231 H 213 H (75-99) mg/dL Total Bilirubin (0.2-1.3) mg/dL AST (17-59) U/L ALT (4-49) U/L Albumin (3.5-5.0) g/dL
--- NOTE | 2021-11-17 13:41 | P.PN ---
Subjective Progress Note Date: 11/17/21 Principal diagnosis: Acute hypoxic respiratory failure secondary to COVID-19 pneumonia complicated with pulmonary embolism 11/15/2021, the patient has not shown any active bleeding from his tracheostomy site. As mentioned yesterday, the tube has been removed and the patient is currently intubated again. The wound over the neck is dry clean and intact. The patient is on no anticoagulation. Vascular surgery consultation was placed for possibly insertion of a IVC filter. Meanwhile, the patient remains sedated and paralyzed. This morning, he is on propofol running at 70 mcg/kg per minute. He is also on fentanyl at 3 mcg/kg/h Nimbex is running at 3 mcg/kg per minute. The patient is on a mechanical ventilator. This morning, he is on a rate of 22, tidal volume of 400, FiO2 of 70% with a PEEP of 10. His peak airway pressures around 37. He is returning his volume is without any major difficulties. No significant bloody secretions from his orotracheal tube. Breath sounds are equal and symmetrical bilaterally. Chest x-ray showed a stable right apical pneumothorax. There is still diffuse breath and pulmonary infiltrates consistent with overnight he related pneumonia which remains unchanged compared to yesterday. In terms of therapy, the patient is off anticoagulation. Note that the patient had pulmonary embolism at a time of his original presentation b [facility] in 10/26/2021. The patient remains on Decadron 6 mg IV every 24 hours. He is on empiric antibiotic coverage with IV Zosyn knowing that his sputum is shown Streptococcus initially and later on MSSA. He is on no pressors. He is hypertensive. He is on a chiropractor for blood pressure control which is running at 20 mL milligrams an hour. Note that his enteral feeding was stopped briefly yesterday due to the events and possibility of some questionable GI bleed. This morning, there is no active bleeding from his PEG tube and diffuse disease will be restarted. White cell count of 16.7. Hemoglobin stable at 7.9. Platelet count is at 325. Blood gas show a pH of 7.3 with a pCO2 of 68 and pO2 of 76. Rest of the blood work is stable. The abdomen is at 14 with a creatinine of 0.35. Inflammatory markers last checked was on 11/14/2021 and his LDH level was down to 949 and the CRP level was at 5.8. Reevaluated today on 11/16/2021, patient remains in the ICU, intubated and mechanically ventilated. Patient has been intubated since 10/30, patient had a tracheostomy and PEG tube placement. Patient is presently on assist control rate of 22, volume is 400 FiO2 50% and PEEP of 8. ABG showed a pO2 of 73 pCO2 54 pH of 7.43. Peak airway pressure is 31 plateau pressure is 26. A shunt is on fentanyl at 2 mcg/kg/h, he is on propofol at 60 mcg/kg/m, patient is not requiring any paralytics, and today I kept the PEEP at 8, no changes were made in his ventilator settings. Patient is on Decadron 6 mg IV push daily, he is also on enteral feeding vital HPF 10 mL per hour. Vascular surgery was consulted, and I'm strongly recommending a placement of IVC filter, however vascular surgery seems to be reluctant to place IVC filter, patient has absolute contraindication to anticoagulation therapy at this point, and the only recommendation at this point would be to place IVC filter for prevention of further clotting that may come from lower extremities although his venous Doppler is negative at this point. Again patient cannot be placed back on anticoagulation therapy considering the severity of the bleeding he had from the tracheostomy site, requiring removal of tracheostomy and the intubation. Again I have no plans to start this patient on anticoagulation therapy after hearing this story about his significant bleeding from the tracheostomy site. And again the patient has absolute contraindication to anticoagulation therapy. Try to get another vascular surgery consult, however the vascular surgeon I consulted is not available and he is not solutions delivery consultant. WBC count is 7 today hemoglobin is 8.1. ABG as noted earlier. Metabolic profile is normal Reevaluated today on 11/17/2021, patient remains in the ICU, intubated, mechanically ventilated, sedated and paralyzed. Patient had a worsening clinical course yesterday, he developed significant erythema on his abdominal wall, and he developed erythema on his left shoulder, and seems to be involving to some extent his lower extremities with a bit of mottling, according to the nurse this happened shortly after Zosyn infusion. Hence Zosyn was discontinued, although he has been on Zosyn for quite some time, and I transitioned Zosyn to cefepime today. Patient was given 1 dose of hydrocortisone, and today I increased his Decadron 6 mg IV push twice a day. Patient required going back on Nimbex and is on Nimbex at 3 mcg/kg/m because he was tachypneic, he was not synchronous with the ventilator, and he was desaturating. Chest x-ray is basically about the same. Blood pressure was significantly high yesterday, and we had to place him back on clevidipine at 15 mg per hour. Patient is now on propofol at 70 fentanyl 50 mcg/kg/h, Nimbex and clevidipine. His ventilator settings are assist control rate of 22, I'll volume is 400, FiO2 up to 60%, PEEP up to 10. His peak airway pressure is 37, plateau pressure is 53 consistent with ARDS. Patient is supposed to have repeat or revision tracheostomy tomorrow, and this will be done by general surgery. Vascular surgery is extremely reluctant to place a filter in this patient/IVC filter, hence I will restart the patient on Lovenox at 80 mg subcu twice a day, because I believe the patient is a great set up for more thromboembolic disease and pulmonary embolism . As a matter of fact considering his worsening oxygenation over the last 24 hours may already be secondary to worsening thromboembolic disease/pulmonary embolism, and at this point I will restart the patient on Lovenox at a lower dose than he had previously, this will be 80 mg subcu twice a day. We'll hold the dose in the morning of the patient is going for revision of tracheostomy. Obviously the patient is not in any shape to be weaned or extubated anytime soon. Patient remains on enteral feeding via PEG tube which was placed previously. He is receiving vital HPF 10 mL per hour. Objective - Vital Signs Vital signs: Vital Signs Temp 98.9 F 11/17/21 08:00 Pulse 93 11/17/21 12:00 Resp 22 11/17/21 12:00 BP 105/64 11/17/21 03:00 Pulse Ox 94 L 11/17/21 12:00 Intake & Output 11/16/21 11/17/21 11/17/21 18:59 06:59 18:59 Intake Total 5354.141 4574.331 979.438 Output Total 1533 474 0122 Balance -434.196 714.331 -700.562 Weight 130.6 kg 128.9 kg Intake: IV 476 276 138 0.9 Normal Saline @ 20 mL 240 240 120 /hr KVO Piperacillin-Tazobactam 3 200 .375 gm In Sodium Chloride 0.9% 100 ml @ 25 mls/hr IVPB Q8HR [facility] Rx# :[id number] Pressure bag 36 36 18 Intake, IV Titration 699.804 793.331 701.438 Amount Cisatracurium 200 mg In 45.0 Sodium Chloride 0.9% 180 ml @ 1 MCG/KG/MIN 4.899 mls/hr IV .Q24H [facility] Rx#: [id number] Cisatracurium 200 mg In 64.92 Sodium Chloride 0.9% 180 ml @ 1.5 MCG/KG/MIN 10.8 mls/hr IV .[id number] [facility] Rx #:[id number] Clevidipine Butyrate 25 89.600 173.834 mg In Empty Bag 1 bag @ 1 MG/HR 2 mls/hr IV .Q24H [facility] Rx#:[id number] fentaNYL (PF) 2,500 mcg 224.800 126.416 164.11 In Sodium Chloride 0.9% 200 ml @ 0.5 MCG/KG/HR 4. 082 mls/hr IV .Q24H [facility] Rx#:[id number] propofoL 1,000 mg In 475.004 512.395 318.494 Empty Bag 1 bag @ Titrate IV .Q0M [facility] Rx#: [id number] Tube Feeding 140 140 70 Other 170 90 70 Output: Urine 7291 832 8043 Other: Voiding Method Indwelling Catheter Indwelling Catheter Indwelling Catheter # Bowel Movements 1 ABP, PAP, CO, CI - Last Documented Arterial Blood Pressure 158/64 - Exam GENERAL EXAM: Alert, restless 61-year-old male patient, intubated and mechanically ventilated. HEAD: Normocephalic. Atraumatic EYES: Normal reaction of pupils, equal size. NOSE: Clear with pink turbinates. THROAT: No erythema or exudates. Endotracheal tube is intact. Tracheostomy site seems to be intact, no active bleeding. NECK: No masses, no JVD. CHEST: No chest wall deformity. LUNGS: Cold at the bases bilaterally. CVS: S1 and S2 normal with no audible murmur, regular rhythm. ABDOMEN: No hepatosplenomegaly, normal bowel sounds, no guarding or rigidity. The patient has also had a PEG tube in place which is currently intact. No evidence of any bleeding around the PEG tube. Skin: mild erythema noted in the mid abdominal area, seems to be symmetrical, also noted on the shoulders. CENTRAL NERVOUS SYSTEM: Not fully assessed patient is sedated and paralyzed this morning. EXTREMITIES:Mottling noted over the dorsal aspects of lower extremities although the patient has excellent pulses bilaterally. Moderately mostly noted over the knees bilaterally. - Labs CBC & Chem 7: 11/17/21 03:15 11/17/21 03:15 Labs: Abnormal Lab Results - Last 24 Hours (Table) 11/16/21 11/16/21 11/16/21 Range/Units 15:56 19:47 23:54 WBC (3.8-10.6) k/uL RBC (4.30-5.90) m/uL Hgb (13.0-17.5) gm/dL Hct (39.0-53.0) % MCV (80.0-100.0) fL RDW (11.5-15.5) % Neutrophils # (1.3-7.7) k/uL ABG pH (7.35-7.45) ABG pCO2 (35-45) mmHg ABG pO2 (83-108) mmHg ABG HCO3 (21-25) mmol/L ABG Total CO2 (19-24) mmol/L ABG O2 Saturation (94-97) % Potassium (3.5-5.1) mmol/L Carbon Dioxide (22-30) mmol/L Creatinine (0.66-1.25) mg/dL Glucose (74-99) mg/dL POC Glucose (mg/dL) 151 H 140 H 100 H (75-99) mg/dL Total Bilirubin (0.2-1.3) mg/dL AST (17-59) U/L ALT (4-49) U/L Albumin (3.5-5.0) g/dL 11/17/21 11/17/21 11/17/21 Range/Units 03:10 03:15 03:15 WBC 16.9 H (3.8-10.6) k/uL RBC 3.38 L (4.30-5.90) m/uL Hgb 11.1 L D (13.0-17.5) gm/dL Hct 34.4 L (39.0-53.0) % MCV 101.9 H (80.0-100.0) fL RDW 15.6 H (11.5-15.5) % Neutrophils # 12.1 H (1.3-7.7) k/uL ABG pH (7.35-7.45) ABG pCO2 (35-45) mmHg ABG pO2 (83-108) mmHg ABG HCO3 (21-25) mmol/L ABG Total CO2 (19-24) mmol/L ABG O2 Saturation (94-97) % Potassium 3.3 L (3.5-5.1) mmol/L Carbon Dioxide 31 H (22-30) mmol/L Creatinine 0.40 L (0.66-1.25) mg/dL Glucose 163 H (74-99) mg/dL POC Glucose (mg/dL) 164 H (75-99) mg/dL Total Bilirubin 1.7 H (0.2-1.3) mg/dL AST 74 H (17-59) U/L ALT 83 H (4-49) U/L Albumin 3.2 L (3.5-5.0) g/dL 11/17/21 11/17/21 11/17/21 Range/Units 05:23 08:09 11:36 WBC (3.8-10.6) k/uL RBC (4.30-5.90) m/uL Hgb (13.0-17.5) gm/dL Hct (39.0-53.0) % MCV (80.0-100.0) fL RDW (11.5-15.5) % Neutrophils # (1.3-7.7) k/uL ABG pH 7.31 L (7.35-7.45) ABG pCO2 67 H (35-45) mmHg ABG pO2 67 L (83-108) mmHg ABG HCO3 34 H (21-25) mmol/L ABG Total CO2 36 H (19-24) mmol/L ABG O2 Saturation 90.3 L (94-97) % Potassium (3.5-5.1) mmol/L Carbon Dioxide (22-30) mmol/L Creatinine (0.66-1.25) mg/dL Glucose (74-99) mg/dL POC Glucose (mg/dL) 231 H 213 H (75-99) mg/dL Total Bilirubin (0.2-1.3) mg/dL AST (17-59) U/L ALT (4-49) U/L Albumin (3.5-5.0) g/dL Assessment and Plan Assessment: Impression: Acute hypoxic respiratory failure secondary to COVID-19 pneumonia and secondary to acute pulmonary embolism which is a complication related to COVID-19 infection. Patient is not vaccinated. Patient was intubated on 10/30, un derwent tracheostomy on 11/10, however he developed significant bleeding from the tracheostomy site/his stoma and he required reintubation with endotracheal tube, today considering the fact that vascular surgery is extremely reluctant and not willing to place a IVC filter, I will go ahead and restart the patient on Lovenox at 80 mg subcu twice a day, however if the patient develops any bleeding will recontact vascular surgery for IVC filter, otherwise I will transfer the patient to another institution. Acute bilateral pulmonary embolism Type 2 diabetes with diabetic neuropathy Epistaxis, resolved after stopping anticoagulation therapy, we will have to closely watch for possible epistaxis now the patient is back on Lovenox. History of obstructive sleep apnea and previous UPPP History of right eye melanoma Previous history of CVA History of rheumatoid arthritis and gout Previous history of MRSA infection in the back. Elevated inflammatory markers Pneumomediastinum and subcutaneous emphysema at the complication of COVID-19 pneumonia Tiny right apical pneumothorax seems to be relatively stable. Hypertension Dyslipidemia Recommendation: Restart patient on Lovenox at 80 mg subcu twice a day since vascular surgery is reluctant to place IVC filter and I believe the patient needs to be on some sort of treatment considering the patient had pulmonary embolism and if he bleeds again will reconsult vascular surgery for IVC filter placement. Otherwise I will recommend transferring the patient to another institution for IVC filter placement. Continue ventilatory support Increase FiO2 to 60% and increase PEEP to 10 since the patient's oxygenation status showed some deterioration over the last 24 hours. Resume paralytics/Nimbex. Continue Decadron. Increase dose to 6 mg twice a day. Discontinue Zosyn and start patient on cefepime, ID consultation was initiated. Continue insulin and monitor sugars closely. Monitor pneumothorax. Continue to monitor closely for any form of bleeding while the patient is on Lovenox. Continue nutritional support/enteral feeding Continue COVID-19 cocktail. General surgery is to revise tracheostomy tomorrow. And will hold the Lovenox dose in the morning. critical care time is over 30. Minutes Time with Patient: Greater than 30
--- NOTE | 2021-11-17 14:32 | P.PN ---
<Melisa Pascal - Last Filed: 11/17/21 14:22> Subjective Progress Note Date: 11/17/21 This is 61-year-old male who is admitted to the ICU with acute hypoxic respiratory failure related to COVID-19 pneumonia who is currently sedated and intubated. The patient had undergone tracheostomy placement and apparently a couple days later the patient had significant amount of bleeding from his tracheostomy site and around the stoma. The tracheostomy was removed and general surgery had taken him back to the operating room for revision and exploration of the wound. At the current time of the surgical bleed he had been on Eliquis for a miliary embolism. Is currently on hold. He has had no further bleeding from the tracheostomy site following surgical intervention. Vascular surgery was asked to place an IVC filter in this patient. The patient has had 2 lower extremity venous duplexes that were negative for DVT. Currently no recommendation for IVC filter placement at this time. Patient is scheduled for tracheostomy revision tomorrow with Dr. Love. The patient has had no further bleeding. Hemoglobin 11.1 Objective - Vital Signs Vital signs: Vital Signs Temp 98.9 F 11/17/21 08:00 Pulse 93 11/17/21 12:00 Resp 22 11/17/21 12:00 BP 105/64 11/17/21 03:00 Pulse Ox 94 L 11/17/21 12:00 Intake & Output 11/16/21 11/17/21 11/17/21 18:59 06:59 18:59 Intake Total 0543.851 4646.331 979.438 Output Total 0669 963 5217 Balance -434.196 714.331 -700.562 Weight 130.6 kg 128.9 kg Intake: IV 476 276 138 0.9 Normal Saline @ 20 mL 240 240 120 /hr KVO Piperacillin-Tazobactam 3 200 .375 gm In Sodium Chloride 0.9% 100 ml @ 25 mls/hr IVPB Q8HR [facility] Rx# :[id number] Pressure bag 36 36 18 Intake, IV Titration 699.804 793.331 701.438 Amount Cisatracurium 200 mg In 45.0 Sodium Chloride 0.9% 180 ml @ 1 MCG/KG/MIN 4.899 mls/hr IV .Q24H [facility] Rx#: [id number] Cisatracurium 200 mg In 64.92 Sodium Chloride 0.9% 180 ml @ 1.5 MCG/KG/MIN 10.8 mls/hr IV .[id number] [facility] Rx #:[id number] Clevidipine Butyrate 25 89.600 173.834 mg In Empty Bag 1 bag @ 1 MG/HR 2 mls/hr IV .Q24H [facility] Rx#:[id number] fentaNYL (PF) 2,500 mcg 224.800 126.416 164.11 In Sodium Chloride 0.9% 200 ml @ 0.5 MCG/KG/HR 4. 082 mls/hr IV .Q24H [facility] Rx#:[id number] propofoL 1,000 mg In 475.004 512.395 318.494 Empty Bag 1 bag @ Titrate IV .Q0M [facility] Rx#: [id number] Tube Feeding 140 140 70 Other 170 90 70 Output: Urine 5559 179 0324 Other: Voiding Method Indwelling Catheter Indwelling Catheter Indwelling Catheter # Bowel Movements 1 ABP, PAP, CO, CI - Last Documented Arterial Blood Pressure 158/64 - Exam General appearance: The patient is sedated and intubated. HET: Head is normocephalic and atraumatic. Pupils are equal and reactive. Oropharynx is clear without lesions. Neck: Supple without lymphadenopathy. Trachea midline. Heart: S1 S2. Regular rate and rhythm. Lungs: On mechanical ventilation. No crackles or wheezes are heard. Abdomen: Soft, nontender, nondistended. Extremities: Normal skin color and turgor. Edema to bilateral lower extremi ties. Neurological: Sedated and intubated. - Labs CBC & Chem 7: 11/17/21 03:15 11/17/21 03:15 Labs: Abnormal Lab Results - Last 24 Hours (Table) 11/16/21 11/16/21 11/16/21 Range/Units 15:56 19:47 23:54 WBC (3.8-10.6) k/uL RBC (4.30-5.90) m/uL Hgb (13.0-17.5) gm/dL Hct (39.0-53.0) % MCV (80.0-100.0) fL RDW (11.5-15.5) % Neutrophils # (1.3-7.7) k/uL ABG pH (7.35-7.45) ABG pCO2 (35-45) mmHg ABG pO2 (83-108) mmHg ABG HCO3 (21-25) mmol/L ABG Total CO2 (19-24) mmol/L ABG O2 Saturation (94-97) % Potassium (3.5-5.1) mmol/L Carbon Dioxide (22-30) mmol/L Creatinine (0.66-1.25) mg/dL Glucose (74-99) mg/dL POC Glucose (mg/dL) 151 H 140 H 100 H (75-99) mg/dL Total Bilirubin (0.2-1.3) mg/dL AST (17-59) U/L ALT (4-49) U/L Albumin (3.5-5.0) g/dL 11/17/21 11/17/21 11/17/21 Range/Units 03:10 03:15 03:15 WBC 16.9 H (3.8-10.6) k/uL RBC 3.38 L (4.30-5.90) m/uL Hgb 11.1 L D (13.0-17.5) gm/dL Hct 34.4 L (39.0-53.0) % MCV 101.9 H (80.0-100.0) fL RDW 15.6 H (11.5-15.5) % Neutrophils # 12.1 H (1.3-7.7) k/uL ABG pH (7.35-7.45) ABG pCO2 (35-45) mmHg ABG pO2 (83-108) mmHg ABG HCO3 (21-25) mmol/L ABG Total CO2 (19-24) mmol/L ABG O2 Saturation (94-97) % Potassium 3.3 L (3.5-5.1) mmol/L Carbon Dioxide 31 H (22-30) mmol/L Creatinine 0.40 L (0.66-1.25) mg/dL Glucose 163 H (74-99) mg/dL POC Glucose (mg/dL) 164 H (75-99) mg/dL Total Bilirubin 1.7 H (0.2-1.3) mg/dL AST 74 H (17-59) U/L ALT 83 H (4-49) U/L Albumin 3.2 L (3.5-5.0) g/dL 11/17/21 11/17/21 11/17/21 Range/Units 05:23 08:09 11:36 WBC (3.8-10.6) k/uL RBC (4.30-5.90) m/uL Hgb (13.0-17.5) gm/dL Hct (39.0-53.0) % MCV (80.0-100.0) fL RDW (11.5-15.5) % Neutrophils # (1.3-7.7) k/uL ABG pH 7.31 L (7.35-7.45) ABG pCO2 67 H (35-45) mmHg ABG pO2 67 L (83-108) mmHg ABG HCO3 34 H (21-25) mmol/L ABG Total CO2 36 H (19-24) mmol/L ABG O2 Saturation 90.3 L (94-97) % Potassium (3.5-5.1) mmol/L Carbon Dioxide (22-30) mmol/L Creatinine (0.66-1.25) mg/dL Glucose (74-99) mg/dL POC Glucose (mg/dL) 231 H 213 H (75-99) mg/dL Total Bilirubin (0.2-1.3) mg/dL AST (17-59) U/L ALT (4-49) U/L Albumin (3.5-5.0) g/dL Assessment and Plan Assessment: 1. Bilateral pulmonary emboli on Eliquis, currently on hold for acute bleed 2. Acute bleed related to tracheostomy status post removal 3. Acute Hypoxic respiratory failure related to COVID-19 pneumonia status post intubation, tracheostomy and PEG tube placement 4. History of diabetes mellitus type 2 with diabetic neuropathy 5. Epistaxis, resolved 6. History of obstructive sleep apnea Plan: 1. Continue symptomatic and supportive care 2. Continue ICU management 3. There are no plans at this time to place IVC filter 4. Recommend resuming anticoagulation for bilateral PE once cleared by surgery, he should has had no further surgical bleeding. Hemoglobin stable. Thank you for this consultation. The impression and plan of care has been dictated as directed. Dr. Larsen I performed a history and examination of this patient, discussed the same with the dictator. I agree with the dictator's note ,documented as a scribe. Any additional findings or plans will be noted. <Sarmad Larsen - Last Filed: 11/17/21 19:03> Objective - Vital Signs Vital signs: Vital Signs Temp 98 F 11/17/21 16:00 Pulse 53 L 11/17/21 18:30 Resp 22 11/17/21 18:30 BP 105/64 11/17/21 03:00 Pulse Ox 100 11/17/21 18:30 Intake & Output 11/16/21 11/17/21 11/17/21 18:59 06:59 18:59 Intake Total 9635.289 0992.331 2068.778 Output Total 0349 262 8314 Balance -434.196 714.331 158.778 Weight 130.6 kg 128.9 kg Intake: IV 476 276 371.0 0.9 Normal Saline @ 20 mL 240 240 200 /hr KVO Piperacillin-Tazobactam 3 200 .375 gm In Sodium Chloride 0.9% 100 ml @ 25 mls/hr IVPB Q8HR [facility] Rx# :[id number] Pressure bag 36 36 36 nimbex 135.0 Intake, IV Titration 699.804 982.915 6102.778 Amount Cefepime 2 gm In Sodium 100 Chloride 0.9% 100 ml @ 25 mls/hr IVPB [facility] Rx# :[id number] Cisatracurium 200 mg In 45.0 Sodium Chloride 0.9% 180 ml @ 1 MCG/KG/MIN 4.899 mls/hr IV .Q24H [facility] Rx#: [id number] Cisatracurium 200 mg In 64.92 192.24 Sodium Chloride 0.9% 180 ml @ 1.5 MCG/KG/MIN 10.8 mls/hr IV .[id number] [facility] Rx #:[id number] Clevidipine Butyrate 25 89.600 173.834 mg In Empty Bag 1 bag @ 1 MG/HR 2 mls/hr IV .Q24H [facility] Rx#:[id number] fentaNYL (PF) 2,500 mcg 224.800 126.416 351.081 In Sodium Chloride 0.9% 200 ml @ 0.5 MCG/KG/HR 4. 082 mls/hr IV .Q24H [facility] Rx#:[id number] propofoL 1,000 mg In 475.004 512.395 595.623 Empty Bag 1 bag @ Titrate IV .Q0M [facility] Rx#: [id number] Tube Feeding 140 140 140 Other 170 90 100 Output: Urine 5596 267 0602 Other: Voiding Method Indwelling Catheter Indwelling Catheter Indwelling Catheter # Bowel Movements 1 ABP, PAP, CO, CI - Last Documented Arterial Blood Pressure 97/57 - Labs CBC & Chem 7: 11/17/21 03:15 11/17/21 03:15 Labs: Abnormal Lab Results - Last 24 Hours (Table) 11/16/21 11/16/21 11/17/21 Range/Units 19:47 23:54 03:10 WBC (3.8-10.6) k/uL RBC (4.30-5.90) m/uL Hgb (13.0-17.5) gm/dL Hct (39.0-53.0) % MCV (80.0-100.0) fL RDW (11.5-15.5) % Neutrophils # (1.3-7.7) k/uL ABG pH (7.35-7.45) ABG pCO2 (35-45) mmHg ABG pO2 (83-108) mmHg ABG HCO3 (21-25) mmol/L ABG Total CO2 (19-24) mmol/L ABG O2 Saturation (94-97) % Potassium (3.5-5.1) mmol/L Carbon Dioxide (22-30) mmol/L Creatinine (0.66-1.25) mg/dL Glucose (74-99) mg/dL POC Glucose (mg/dL) 140 H 100 H 164 H (75-99) mg/dL Total Bilirubin (0.2-1.3) mg/dL AST (17-59) U/L ALT (4-49) U/L Albumin (3.5-5.0) g/dL 11/17/21 11/17/21 11/17/21 Range/Units 03:15 03:15 05:23 WBC 16.9 H (3.8-10.6) k/uL RBC 3.38 L (4.30-5.90) m/uL Hgb 11.1 L D (13.0-17.5) gm/dL Hct 34.4 L (39.0-53.0) % MCV 101.9 H (80.0-100.0) fL RDW 15.6 H (11.5-15.5) % Neutrophils # 12.1 H (1.3-7.7) k/uL ABG pH 7.31 L (7.35-7.45) ABG pCO2 67 H (35-45) mmHg ABG pO2 67 L (83-108) mmHg ABG HCO3 34 H (21-25) mmol/L ABG Total CO2 36 H (19-24) mmol/L ABG O2 Saturation 90.3 L (94-97) % Potassium 3.3 L (3.5-5.1) mmol/L Carbon Dioxide 31 H (22-30) mmol/L Creatinine 0.40 L (0.66-1.25) mg/dL Glucose 163 H (74-99) mg/dL POC Glucose (mg/dL) (75-99) mg/dL Total Bilirubin 1.7 H (0.2-1.3) mg/dL AST 74 H (17-59) U/L ALT 83 H (4-49) U/L Albumin 3.2 L (3.5-5.0) g/dL 11/17/21 11/17/21 11/17/21 Range/Units 08:09 11:36 15:44 WBC (3.8-10.6) k/uL RBC (4.30-5.90) m/uL Hgb (13.0-17.5) gm/dL Hct (39.0-53.0) % MCV (80.0-100.0) fL RDW (11.5-15.5) % Neutrophils # (1.3-7.7) k/uL ABG pH (7.35-7.45) ABG pCO2 (35-45) mmHg ABG pO2 (83-108) mmHg ABG HCO3 (21-25) mmol/L ABG Total CO2 (19-24) mmol/L ABG O2 Saturation (94-97) % Potassium (3.5-5.1) mmol/L Carbon Dioxide (22-30) mmol/L Creatinine (0.66-1.25) mg/dL Glucose (74-99) mg/dL POC Glucose (mg/dL) 231 H 213 H 168 H (75-99) mg/dL Total Bilirubin (0.2-1.3) mg/dL AST (17-59) U/L ALT (4-49) U/L Albumin (3.5-5.0) g/dL Assessment and Plan Plan: Patient too unstable this morning for any surgical intervention or placement of filter. Per ICU team patient has been started on anticoagulation and we will see if any bleeding. I discussed the case with the ICU team and patient is at high risk for blood clots as well as PE and therefore would require a filter if he has any bleeding after starting anticoagulation. We will monitor closely and place filter if any signs of bleeding.
[2021-11-17 15:47] LABS: Glucose,Whole Blood 168 mg/dL (75-99)
[2021-11-17 19:57] LABS: Glucose,Whole Blood 112 mg/dL (75-99)
[2021-11-17] MEDS: CEFEPIME 2 GM in SODIUM CHLORIDE 0.9% 100 ML IVPB SCH (20:39)
[2021-11-17] MEDS: ENOXAPARIN 80 MG/0.8 ML SYRINGE SQ SCH (20:40)
[2021-11-17] MEDS: INSULIN DETEMIR (LEVEMIR) 100 UNIT/ML SYR SQ SCH (20:50)
--- NOTE | 2021-11-17 22:15 | P.PN ---
Progress Note - Text Progress Note Date: 11/17/21 Chief Complaint: Short of breath This is a pleasant 61-year-old patient, chronic stable medical conditions include diabetes, hypertension, hyperlipidemia, osteoarthritis, peripheral neuropathy, chronic gout. Patient presents with increasing shortness of breath. Cough. Clear sputum. Fever and chills. Tired rundown decrease appetite and diarrhea about 2 times a day. Patient tested positive for COVID-19 on October 09. His initial rapid COVID-19 was negative. In the send out came back positive. Patient did not take the vaccine against COVID-19. He is on 8 L of oxygen this morning. He is outside the window for Remdesivir. Admitted with COVID 19 pneumonitis, acute hypoxic respiratory failure. Started on Decadron. IV fluids. October 26 chest CTA showed bilateral pulmonary embolism. Breathing cord worse in October 30 patient is intubated. Requiring various drips. 2 feeding was started. November 10 patient got a tracheostomy and a PEG tube. Patient subsequently had a large bleed from the tracheostomy site. Desaturated. Tracheostomy had to be removed. Bedside bronchoscopy was done. Large blood loss was removed. Was put back on the ventilator/intubated. Required FFP. November 14: ICU. Patient had no bleeding around the tracheostomy site. Patient had desaturated. Tracheostomy had to be removed. The stiff straw hat washer, surgeon, anesthesia@tibia the bedside. Bronchoscopy was done. Blood was removed from the trachea and the bronchus. Patient put back on the ventilator. Currently 50/10. Drips include fentanyl, propofol, cleviprex. Given FFP. Review of systems: Intubated. Anticoagulation obviously has been discontinued. younger daughter the bedside. Updated. November 15: ICU. Ventilator: 60/90. Drips included propofol and fentanyl. Telemetry: Sinus rhythm. 2 feeding at 10 mL an hour. Another daughter the bedside. November 16: ICU. 2 feeding at 10 mL an hour. Ventilator: 50/8. Drips include propranolol, factor. Since patient cannot be anticoagulated at the present time. [place] filter being ordered. November 17: ICU. Ventilator: FiO2 50 and a PEEP of 10. 2 feeding at 10 mL an hour. Drips include fentanyl, propofol, Nimbex. Telemetry shows sinus rhythm. Patient seen by Dr. Larsen from vascular.: Recommended No IVC filter. Following revision of tracheostomy to resume adequate ventilation. Patient going in tomorrow for revision of tracheostomy by Dr. Love. Review of systems: Patient intubated Active Medications Acetaminophen (Acetaminophen Tab 325 Mg Tab) 650 mg PO Q6HR PRN PRN Reason: Mild Pain or Fever > 100.5 Last Admin: 10/29/21 15:46 Dose: 650 mg Documented by: Albuterol Sulfate (Albuterol Hfa Inhaler) 2 puff INHALATION RT-QID PRN PRN Reason: Shortness Of Breath Last Admin: 11/14/21 20:22 Dose: 2 puff Documented by: Artificial Tears (Artificial Tears-Hypromellose Drops 15 Ml Btl) 2 drops BOTH EYES Q4HR [facility] Last Admin: 11/17/21 19:56 Dose: 2 drops Documented by: Ascorbic Acid (Ascorbic Acid 500 Mg Tab) 1,000 mg PO DAILY [facility] Last Admin: 11/17/21 08:06 Dose: 1,000 mg Documented by: Bisacodyl (Bisacodyl 10 Mg Supp) 10 mg RECTAL BID [facility] Last Admin: 11/17/21 08:09 Dose: Not Given Documented by: Chlorhexidine Gluconate (Chlorhexidine Gluconate 15 Ml Cup) 15 ml MUCOUS MEM BID [facility] Last Admin: 11/17/21 20:39 Dose: 15 ml Documented by: Cholecalciferol (Cholecalciferol 25 Mcg (1000 Iu) Tablet) 25 mcg PO DAILY [facility] Last Admin: 11/17/21 08:06 Dose: 25 mcg Documented by: Dexamethasone Sodium Phosphate (Dexamethasone Sod Phosphate 10 Mg/Ml 1 Ml Vial) 6 mg IVP BID [facility] Last Admin: 11/17/21 20:40 Dose: 6 mg Documented by: Docusate Sodium (Docusate Oral Soln 100 Mg/10 Ml Cup) 100 mg PO BID [facility] Last Admin: 11/17/21 20:40 Dose: 100 mg Documented by: Enoxaparin Sodium (Enoxaparin 80 Mg/0.8 Ml Syringe) 80 mg SQ Q12HR [facility] Last Admin: 11/17/21 20:40 Dose: 80 mg Documented by: Furosemide (Furosemide 10 Mg/Ml 4 Ml Vial) 40 mg IV DAILY [facility] Last Admin: 11/17/21 08:06 Dose: 40 mg Documented by: Hydralazine HCl (Hydralazine Hcl 20 Mg/Ml 1 Ml Vial) 20 mg IVP Q4HR PRN PRN Reason: Blood Pressure - High SBP >160 Last Admin: 11/17/21 01:07 Dose: 20 mg Documented by: Propofol 1,000 mg/ IV Solution 100 mls @ 0 mls/hr IV .Q0M [facility]; Protocol Last Admin: 11/17/21 20:41 Dose: 50 mcg/kg/min, 38.67 mls/hr Documented by: Cisatracurium Besylate 200 mg/ (Sodium Chloride) 200 mls @ 10.8 mls/hr IV .Q 18H32M [facility]; Protocol Last Admin: 11/17/21 14:37 Dose: 3 mcg/kg/min, 21.6 mls/hr Documented by: Fentanyl Citrate 2,500 mcg/ (Sodium Chloride) 250 mls @ 4.082 mls/hr IV .Q24H [facility]; Protocol Last Titration: 11/17/21 18:07 Dose: 2 mcg/kg/hr, 16.329 mls/hr Documented by: Clevidipine 25 mg/ IV Solution 50 mls @ 2 mls/hr IV .Q24H [facility]; Protocol Last Titration: 11/17/21 12:55 Dose: 0 mg/hr, 0 mls/hr Documented by: Cefepime HCl 2 gm/ Sodium (Chloride) 100 mls @ 25 mls/hr IVPB Q12HR [facility] Last Admin: 11/17/21 20:39 Dose: 25 mls/hr Documented by: Insulin Aspart (Insulin Aspart (Novolog) 100 Unit/Ml Vial) 0 unit SQ Q4HR [facility]; Protocol Last Admin: 11/17/21 20:35 Dose: Not Given Documented by: Insulin Detemir (Insulin Detemir (Levemir) 100 Unit/Ml Syr) 24 unit SQ HS [facility] Last Admin: 11/17/21 20:50 Dose: 24 unit Documented by: Lactulose (Lactulose 20 Gm/30 Ml Cup) 10 gm PO BID [facility] Last Admin: 11/17/21 08:09 Dose: Not Given Documented by: Metoprolol Tartrate (Metoprolol Tartrate 25 Mg Tab) 25 mg PO BID [facility] Last Admin: 11/17/21 08:06 Dose: 25 mg Documented by: Miscellaneous Information (Potassium Replacement Protocol 1 Each Misc) 1 each MISCELLANE DAILY PRN; Protocol PRN Reason: Per Protocol Pantoprazole Sodium (Pantoprazole 40 Mg/10 Ml Vial) 40 mg IVP DAILY [facility] Last Admin: 11/17/21 12:54 Dose: 40 mg Documented by: Pregabalin (Pregabalin 100 Mg Cap) 200 mg PO BID [facility] Last Admin: 11/17/21 20:40 Dose: 200 mg Documented by: Sertraline HCl (Sertraline 50 Mg Tab) 50 mg PO DAILY [facility] Last Admin: 11/17/21 08:06 Dose: 50 mg Documented by: Zinc Sulfate (Zinc Sulfate 220 Mg Cap) 220 mg PO DAILY [facility] Last Admin: 11/17/21 08:05 Dose: 220 mg Documented by: Social history: Patient is on Social Security. Does not smoke or drink alcohol. Patient's daughters family lives with him. Family history: Father at the age of 40 with heart attack Physical examination: VITAL SIGNS: 98.5, 50, 22, 100/58, on the ventilator GENERAL: Laying in bed, intubated. PEG tube . LUNGS: Respiratory rate increased,. PSYCH: Unable to assess Rest of the exam per nursing and pulmonary INVESTIGATIONS, reviewed in the clinical context: November 14: White count 15.9 hemoglobin 11.6 platelets 318 d-dimer 7.69 potassium 3.4 creatinine 0.43 Blood culture positive for Staphylococcus epidermidis/coagulates negative. November 17: White count 16.9 hemoglobin 11.1 potassium 3.3 creatinine 0.4 November 16: White count 17 hemoglobin 8.1 potassium 3.2 creatinine 0.5 to October 28: D-dimer 13.4 to October 26: D-dimer 8.48 CRP 24 Chest CTA [October 26: biLateral pulmonary embolism Doppler ultrasound lower extremity: Negative for DVT October 24: White count 9.7 hemoglobin 15.3 platelets 221 d-dimer 1.93 progression 4.2 creatinine 0.71 CRP 5.5 pro-calcitonin 0.08 White count 9.9 hemoglobin 16 platelets 234 d-dimer 0.98 sodium 141 potassium 3.4 creatinine 0.81 Lactic acid 2.9 LDH 1422 CRP 7.5 EKG tracing personally reviewed by me-normal sinus rhythm. Nonspecific ST segment changes. Chest x-ray film personally reviewed by me-bilateral infiltrates Assessment and plan: -Acute severe COVID 19 pneumonitis in a patient who did not take the COVID-19 va ccine: Slow to respond Dexamethasone, vitamin C, vitamin D, zinc. Patient's outside the window for Remdesivir. -Acute hypoxic respiratory failure from COVID-19: Slow to respond intubated October 30. FiO2 50 and a PEEP of8 -Active bleeding around tracheostomy into the trachea and lungs. Status post bronchoscopy. Evacuation of large amounts of blood clot. Tracheostomy removed. Patient reintubated. Pending revision of tracheostomy tube on November 18 -Bilateral pulmonary embolism secondary to COVID-19 Eliquis -discontinued because of bleeding. No Whitney filter per vascular. Patient to resume anticoagulation once tracheostomy revision done. -Essential hypertension Lopressor 25 mg twice a day, -Diabetes mellitus type 2, on oral hypoglycemic, uncontrolled with hyperglycemia Levemir 24 units daily at bedtime. Follow Accu-Cheks -Chronic insomnia for medical conditions Elavil 50 mg daily at bedtime -Hyperlipidemia TriCor 48 mg daily -Hypoalbuminemia Acute phase reactant -Obstructive sleep apnea On CPAP at home -Pneumomediastinum and subcutis emphysema complications of COVID-19 indicated pneumonia. -Diabetes right upper apical pneumothorax less than 5%. -Diabetic peripheral neuropathy Lyrica 200 mg twice daily -Full code Drips : fentanyl , propofol . Nimbex , Ventilator. Follow labs. Prognosis guarded. Empirically on IV Zosyn. No Whitney filter per vascular. Consult noted. Patient for revision of tracheostomy tomorrow.
[2021-11-17 23:56] LABS: Glucose,Whole Blood 134 mg/dL (75-99)
[2021-11-18] MEDS: INSULIN ASPART (NovoLOG) 100 UNIT/ML VIAL SQ SCH ×6 (00:03→23:21)
[2021-11-18] MEDS: CLEVIDIPINE BUTYRATE 25 MG in EMPTY BAG 1 BAG IV SCH ×3 (00:11→03:28)
[2021-11-18] MEDS: hydrALAZINE HCL 20 MG/ML 1 ML VIAL IVP PRN (00:31)
[2021-11-18] MEDS: fentaNYL (PF) 2,500 MCG in SODIUM CHLORIDE 0.9% 200 ML IV SCH ×3 (00:41→16:52)
--- NOTE | 2021-11-18 00:58 | XR ---
EXAMINATION TYPE: XR chest 1V portable DATE OF EXAM: 11/18/2021 COMPARISON: Yesterday HISTORY: Short of breath TECHNIQUE: Single view FINDINGS: Endotracheal tube is 4 cm from the dennis. There is complete opacification left hemithorax. There is coarse interstitial and to lesser extent airspace infiltrate in the right lung. There is le ft subclavian catheter with tip in the superior vena cava. Heart is shifted to the left side. IMPRESSION: Complete opacification left hemithorax consistent with consolidation and atelectasis that is new compared to examination yesterday. This could relate to bronchial obstruction. Diffuse infiltrate in the right lung unchanged.
[2021-11-18 01:02] LABS: ABG Base Excess 8.1 mmol/L; ABG HCO3 35 mmol/L (21-25); ABG Oxygen Saturation 85.6 % (94-97); ABG PH 7.29 (7.35-7.45); ABG PO2 60 mmHg (83-108); ABG TCO2 37 mmol/L (19-24)
--- NOTE | 2021-11-18 02:08 | XR ---
EXAMINATION TYPE: XR chest 1V portable DATE OF EXAM: 11/18/2021 COMPARISON: Today HISTORY: Short of breath. Bronchoscopy. TECHNIQUE: Single view FINDINGS: The endotracheal tube is 3.8 cm from the dennis. There is pulmonary interstitial and airspa ce edema. Trachea is midline. There are chest leads. There is left subclavian catheter with tip in th e superior vena cava. IMPRESSION: Pulmonary edema. There is significant improved aeration of the left lung compared to exam one hour ago.
[2021-11-18] MEDS ORDERED: METOPROLOL TARTRATE 50 MG TAB PO STA (02:31)
[2021-11-18 03:29] LABS: Glucose,Whole Blood 234 mg/dL (75-99)
[2021-11-18 04:20] LABS: Basophils # (A) 0.1 k/uL (0-0.2); Basophils % (A) 1 %; Eosinophils # (A) 0.1 k/uL (0-0.7); Eosinophils % (A) 1 %; HCT 33.1 % (39.0-53.0); HGB 10.7 gm/dL (13.0-17.5); Hypochromasia Moderate; Lymphocytes # (A) 0.7 k/uL (1.0-4.8); Lymphocytes % (A) 4 %; MCH 33.2 pg (25.0-35.0); MCHC 32.2 g/dL (31.0-37.0); MCV 103.3 fL (80.0-100.0); Macrocytosis Slight; Mean Platelet Volume 8.3; Monocytes # (A) 0.9 k/uL (0-1.0); Monocytes % (A) 6 %; Neutrophils # (A) 12.9 k/uL (1.3-7.7); Neutrophils % (A) 87 %; Platelet Count 320 k/uL (150-450); RDW 15.1 % (11.5-15.5); WBC 14.9 k/uL (3.8-10.6)
[2021-11-18 04:37] LABS: ALT 138 U/L (4-49); AST 92 U/L (17-59); African American GFR (CKD) >90 (>60 ml/min/1.73 sqM); Alkaline Phosphatase 104 U/L (38-126); Anion Gap 8 mmol/L; Blood Urea Nitrogen 21 mg/dL (9-20); Calcium 8.2 mg/dL (8.4-10.2); Carbon Dioxide 29 mmol/L (22-30); Chloride 98 mmol/L (98-107); Glucose 218 mg/dL (74-99); Non-African American GFR(CKD) >90 (>60 ml/min/1.73 sqM); Potassium 4.2 mmol/L (3.5-5.1); Sodium 135 mmol/L (137-145); Total Bilirubin 1.8 mg/dL (0.2-1.3); Total Protein 6.1 g/dL (6.3-8.2)
[2021-11-18] MEDS: ARTIFICIAL TEARS-HYPROMELLOSE DROPS 15 ML BTL BOTH EYES SCH ×7 (04:41→23:21)
[2021-11-18 05:16] LABS: ABG PCO2 72 mmHg (35-45); Allen Test Performed? No
[2021-11-18 06:24] LABS: ABG Base Excess 8.1 mmol/L; ABG HCO3 33 mmol/L (21-25); ABG PCO2 57 mmHg (35-45); ABG PH 7.38 (7.35-7.45); ABG PO2 234 mmHg (83-108); ABG TCO2 35 mmol/L (19-24)
[2021-11-18 06:31] LABS: Allen Test Performed? No
[2021-11-18 08:21] LABS: Glucose,Whole Blood 141 mg/dL (75-99)
[2021-11-18] MEDS: CISATRACURIUM 200 MG in SODIUM CHLORIDE 0.9% 180 ML IV SCH (08:21)
[2021-11-18] MEDS: FUROSEMIDE 10 MG/ML 4 ML VIAL IV SCH (08:27)
[2021-11-18] MEDS: DEXAMETHASONE SOD PHOSPHATE 10 MG/ML 1 ML VIAL IVP SCH ×2 (08:27→20:35)
[2021-11-18] MEDS: CEFEPIME 2 GM in SODIUM CHLORIDE 0.9% 100 ML IVPB SCH (08:27)
[2021-11-18] MEDS: DOCUSATE ORAL SOLN 100 MG/10 ML CUP PO SCH ×2 (08:28→20:27)
[2021-11-18] MEDS: ZINC SULFATE 220 MG CAP PO SCH (08:28)
[2021-11-18] MEDS: CHOLECALCIFEROL 25 MCG (1000 IU) TABLET PO SCH (08:28)
[2021-11-18] MEDS: SERTRALINE 50 MG TAB PO SCH (08:28)
[2021-11-18] MEDS: bisacodyL 10 MG SUPP RECTAL SCH ×2 (08:28→20:26)
[2021-11-18] MEDS: PANTOPRAZOLE 40 MG/10 ML VIAL IVP SCH (08:28)
[2021-11-18] MEDS: ASCORBIC ACID 500 MG TAB PO SCH (08:28)
[2021-11-18] MEDS: CHLORHEXIDINE GLUCONATE 15 ML CUP MUCOUS MEM SCH ×2 (08:28→20:35)
[2021-11-18] MEDS: PREGABALIN 100 MG CAP PO SCH ×2 (08:28→20:36)
[2021-11-18] MEDS: LACTULOSE 20 GM/30 ML CUP PO SCH ×2 (08:29→20:27)
[2021-11-18] MEDS: ENOXAPARIN 80 MG/0.8 ML SYRINGE SQ SCH ×2 (08:29→20:47)
--- NOTE | 2021-11-18 10:16 | OP ---
OPERATIVE REPORT OPERATIVE REPORT: 1. Bronchoscopy and bronchoalveolar lavage of the left lung as well as the right lung, and extraction suctioning of the mucus plugs and blood clot in the left mainstem bronchus, in the left upper lobe bronchus, lingula, and left lower lobe bronchus. 2. Lavage of the right upper lobe and suction of mucus plugs from the right upper lobe, including the anterior segment of the right upper lobe. 3. Lavage of the right middle lobe with suctioning of mucus plugs and blood clots in the right middle lobe. ANESTHESIA USED: The patient was already on Nimbex. He was already intubated and mechanically ventilated. He was also on propofol. PREOPERATIVE DIAGNOSIS: Complete whiteout of the left lung with suspected mucus plugs or blood clots in the left mainstem bronchus. POSTOPERATIVE DIAGNOSIS: Complete collapse of the left lung with blood clots and mucus plugs in the left mainstem bronchus, left upper lobe bronchus, lingular bronchus, and left lower lobe bronchus as well as in the right upper lobe anterior segment and right middle lobe medial segment. PROCEDURE DESCRIPTION: The patient was placed in supine position. He was already connected to mechanical ventilation. I was able to monitor his O2 saturation continuously, which was basically in the low 70s and high 60s prior to the procedure. I was also monitoring his blood pressure continuously. Cardiac rhythm was also monitored continuously. The bronchoscope was inserted through the adapter on the endotracheal tube and advanced down to the distal end of the endotracheal tube. The dennis was noted to be sharp. However, as I entered the left mainstem bronchus, there were basically old blood clots which were thick and hardened in the left mainstem bronchus. Lavage of the left mainstem bronchus was performed, and I was able to suction multiple mucus plugs and blood clots, which were old again, in the left mainstem bronchus and also noted in the left upper lobe, lingula and left lower lobe. These were all suctioned and the whole left lung was lavaged until no more clots were noted in the left lung. Then as I finished the left lung I went into the right upper lobe. There was a mucus plug and a blood clot in the anterior segment of the right upper lobe, and these were suctioned and I was able to lavage the right upper lobe. I also lavaged the right middle lobe of mucus plugs and blood clots. The procedure was well tolerated. After the procedure there was significant improvement of the left lung; significant expansion of the left lung was noted, and the procedure was well tolerated. At the end of the procedure, I was able to see saturations up in the high 90s, 97% to 98%. Again, procedure was well tolerated; no evidence of any immediate complications. The patient was placed in the meantime on 100% FiO2 and kept on a PEEP of . MMVIK / IJN: [id number] /
[2021-11-18 11:30] LABS: Glucose,Whole Blood 129 mg/dL (75-99)
--- NOTE | 2021-11-18 11:57 | P.CONS ---
History of Present Illness - Reason for Consult Consult date: 11/17/21 infection Requesting physician: Jaleel Glaser - Chief Complaint rash x 1 day - History of Present Illness History of Present Illness : Patient is a 61-year-old male with a past medical his significant for diabetes mellitus hypertension hyperlipidemia CVA rheumatoid arthritis obstructive sleep apnea presented to the hospital on October 23, 2021 for evaluation of increasing shortness of breath cough and congestion in this patient seem to have been going also October 09, 2021 patient was diagnosed with a covid19 and was treated with supportive treatment patient subsequently did have a worsening of his respiratory status requiring intubation and the patient has been in ICU for a couple of weeks now under care of pulmonary and primary team patient failed to be extubated and is status post trach and PEG placement on November 10, 2021 patient did have a initial sputum culture positive for staph coccus agalactiae last urine culture has been positive for staph aureus and Bibi albicans that was done on November 06, 2020 and apparently the patient was treated with Zosyn last evening the patient was noticed to have a erythematous rash developing on the upper body and the upper extremity while the Zosyn was infusing which was stopped this morning the patien t has been started on cefepime and infectious disease was consulted concerning for infection most information has been obtained from review the chart and talking nursing staff the patient is currently sedated unable provide any history patient is current not on any pressor support patient FiO2 is currently stable and no significant purulent secretion through the ET or diarrhea reported by the nursing staff, patient has received Zosyn from November 03, 2019 total November 17, 2021 and has received vancomycin on November 04 as well as November 08 to Review of system: Positive points mentioned in history of present illness complete review could not be obtained because of his underlying medical condition. Past medical history : Reviewed, documented below Past surgical history : Reviewed, documented below Social history: Reviewed, documented below Medications: Reviewed, as documented below EXAMINATION: Vital sigans= Reviewed and documented below GENERAL DESCRIPTION: Middle-aged male intubated on the vent, no distress. No tachypnea or accessory muscle of respiration use. HEENT: Shows Pallor , no scleral icterus. Oral mucous membrane is dry. NECK: Trachea central, no thyromegaly. LUNGS: Unlabored breathing. Decrease intensity of breath sounds. No wheeze or crackle. HEART: S1, S2, regular rate and rhythm. ABDOMEN: Soft, no tenderness , guarding or rigidity EXTREMITIES: No edema feet SKIN: No rash, no masses palpable. NEUROLOGICAL: The patient sedated on the vent LABS AND RADIOLOGY: Reviewed results see below Assessment : Patient is a 61-year-old male admitted to the hospital more than 3 weeks ago in this patient diagnosis of COVID-19 pneumonia and possible secondary bacterial pneumonia in the sputum was positive for MSSA on November 06 however the patient has received more than 2 weeks of IV Zosyn and few days of vancomycin, patient is currently afebrile white count is mildly elevated could be related to steroids versus oropharyngeal candidiasis, chest x-ray is mostly diffuse infiltrate and no consolidation Plan: 1-patient has received adequate antibiotic therapy for underlying pneumonia not developing a rash to Zosyn penicillin allergic should be doc umented in the chart 2-discontinue cefepime 3-we will give a short course of Eraxis for possible oropharyngeal candidiasis and white count to be monitored closely We will follow on clinical condition and cultures to further adjust medication if needed Thank you for this consultation we will follow the patient along with you Past Medical History Past Medical History: Cancer, CVA/TIA, Diabetes Mellitus, Hyperlipidemia, Hypertension, Prostate Disorder, Rheumatoid Arthritis (RA), Sleep Apnea/CPAP/BIPAP Additional Past Medical History / Comment(s): 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 History of Any Multi-Drug Resistant Organisms: MRSA Year Discovered:: 2007 MDRO Source:: back Past Surgical History: Adenoidectomy, Heart Catheterization, Orthopedic Surgery, Prostate Surgery, Tonsillectomy Additional Past Surgical History / Comment(s): Multiple facial surgeries to remove melanoma by R eyes lateral corner/neck dissection to remove numerous (70) lymph nodes, UVPP and deviated septum surgery, arthroscopy rt knee, 3 cardiac caths-last one done 04/14/18, TURP and 2 surgeries after to remove scar tissue, surgical removal back sore (MRSA). Past Anesthesia/Blood Transfusion Reactions: Previous Problems w/ Anesthesia Additional Past Anesthesia/Blood Transfusion Reaction / Comm: hard to wake up out of anestheia Past Psychological History: No Psychological Hx Reported Additional Psychological History / Comment(s): Pt resides with his daughter. He uses no assistive device. He drives. He recently was approved for disablitiy but still needs to apply for medicaid. Smoking Status: Never smoker Past Alcohol Use History: None Reported Past Drug Use History: None Reported - Past Family History Father Family Medical History: Myocardial Infarction ([place]) Additional Family Medical History / Comment(s): Father of a [place] at the age of 40yrs. Mother Family Medical History: Congestive Heart Failure (CHF), Coronary Artery Disease (CAD), CVA/TIA Additional Family Medical History / Comment(s): Mother had mitral valve regurgitation. She had a "massive" stroke and of CHF at the age of 75yrs. Brother(s) Family Medical History: Diabetes Mellitus Additional Family Medical History / Comment(s): Pt had one brother of a [place] at the age of 50 yrs, another brother of a [place] at the age of 55yrs after CABG and another brother who has 3 stents. Medications and Allergies Home Medications Medication Instructions Recorded Confirmed Type Furosemide [Lasix] 40 mg PO DAILY 03/12/18 10/23/21 History Losartan [Cozaar] 50 mg PO DAILY 03/12/18 10/23/21 History Metoprolol Tartrate [Lopressor] 50 mg PO BID 03/12/18 10/23/21 History Pregabalin [Lyrica] 200 mg PO BID 07/31/18 10/23/21 History metFORMIN HCL [Glucophage] 1,000 mg PO BID 07/31/18 10/23/21 History ALPRAZolam [Xanax] 0.25 mg PO BID PRN 10/23/21 10/23/21 History Acarbose 50 mg PO TID-W/MEALS 10/23/21 10/23/21 History Acetaminophen Tab [Tylenol Tab] 500 mg PO Q8H PRN 10/23/21 10/23/21 History Albuterol Nebulized [Ventolin 2.5 mg INHALATION RT-QID PRN 10/23/21 10/23/21 History Nebulized] Albuterol Sulfate [Ventolin HFA] 2 puff INHALATION RT-Q6H PRN 10/23/21 10/23/21 History Amitriptyline HCl [Elavil] 50 mg PO HS 10/23/21 10/23/21 History Clotrimazole/Betameth Cream 1 applic TOPICAL BID 10/23/21 10/23/21 History [Lotrisone] Fenofibrate Nanocrystallized 48 mg PO DAILY 10/23/21 10/23/21 History [Fenofibrate] Ibuprofen [Motrin] 800 mg PO Q8H PRN 10/23/21 10/23/21 History Sertraline [Zoloft] 50 mg PO DAILY 10/23/21 10/23/21 History carBAMazepine [TEGretol] 400 mg PO BID 10/23/21 10/23/21 History glipiZIDE XL [Glucotrol Xl] 10 mg PO DAILY 10/23/21 10/23/21 History Allergies Allergy/AdvReac Type Severity Reaction Status Date / Time gabapentin [From Neurontin] AdvReac EXCESSIVE Verified 10/23/21 08:15 SWEATING Physical Exam Vitals: Vital Signs Temp Pulse Resp BP Pulse Ox 11/17/21 12:00 93 22 94 L 11/17/21 11:30 82 22 91 L 11/17/21 11:00 89 22 91 L 11/17/21 10:30 92 23 85 L 11/17/21 10:00 93 22 86 L 11/17/21 09:30 96 22 83 L 11/17/21 09:00 100 22 86 L 11/17/21 08:30 120 H 22 87 L 11/17/21 08:00 98.9 F 124 H 22 88 L 11/17/21 07:30 117 H 22 88 L 11/17/21 07:00 116 H 22 87 L 11/17/21 06:45 117 H 22 89 L 11/17/21 06:30 121 H 22 89 L 11/17/21 06:15 115 H 22 87 L 11/17/21 06:00 120 H 22 90 L 11/17/21 05:45 124 H 22 84 L 11/17/21 05:30 116 H 21 11/17/21 05:15 117 H 22 11/17/21 05:00 118 H 23 11/17/21 04:45 118 H 23 11/17/21 04:30 115 H 23 11/17/21 04:15 110 H 22 11/17/21 04:00 98.9 F 118 H 22 11/17/21 03:45 101 H 23 11/17/21 03:30 102 H 23 11/17/21 03:15 87 22 11/17/21 03:00 90 30 H 105/64 11/17/21 02:45 86 22 105/64 11/17/21 02:30 97 27 H 105/64 100 11/17/21 02:15 100 28 H 105/64 94 L 11/17/21 02:00 99 23 105/64 93 L 11/17/21 01:45 85 24 105/64 95 11/17/21 01:30 77 19 105/64 96 11/17/21 01:00 61 18 94 L 11/17/21 00:04 65 22 98 11/17/21 00:00 98.2 F 60 22 105/64 100 11/16/21 23:00 51 L 22 105/64 95 11/16/21 22:00 50 L 22 105/64 94 L 11/16/21 21:00 54 L 22 105/64 93 L 11/16/21 20:00 98.4 F 47 L 22 105/64 93 L 11/16/21 19:00 50 L 22 94 L 11/16/21 18:00 51 L 22 96 11/16/21 17:00 52 L 22 97 11/16/21 16:00 98.5 F 62 22 98 11/16/21 15:00 67 22 97 11/16/21 14:00 52 L 22 99 11/16/21 13:00 55 L 22 98 Intake and Output 11/16/21 11/17/21 11/17/21 22:59 06:59 14:59 Intake Total 942.867 934.400 970.104 Output Total 490 597 7663 Balance 402.867 554.400 -709.896 Intake: IV 284 184 138 0.9 Normal Saline @ 20 mL 160 160 120 /hr KVO Piperacillin-Tazobactam 3 100 .375 gm In Sodium Chloride 0.9% 100 ml @ 25 mls/hr IVPB Q8HR [facility] Rx# :[id number] Pressure bag 24 24 18 Intake, IV Titration 498.867 610.400 692.104 Amount Cisatracurium 200 mg In 45.0 Sodium Chloride 0.9% 180 ml @ 1 MCG/KG/MIN 4.899 mls/hr IV .Q24H [facility] Rx#: [id number] Cisatracurium 200 mg In 64.92 Sodium Chloride 0.9% 180 ml @ 1.5 MCG/KG/MIN 10.8 mls/hr IV .[id number] [facility] Rx #:[id number] Clevidipine Butyrate 25 89.600 164.5 mg In Empty Bag 1 bag @ 1 MG/HR 2 mls/hr IV .Q24H [facility] Rx#:[id number] fentaNYL (PF) 2,500 mcg 115.936 126.416 164.11 In Sodium Chloride 0.9% 200 ml @ 0.5 MCG/KG/HR 4. 082 mls/hr IV .Q24H [facility] Rx#:[id number] propofoL 1,000 mg In 382.931 329.464 318.494 Empty Bag 1 bag @ Titrate IV .Q0M [facility] Rx#: [id number] Tube Feeding 100 80 70 Other 60 60 70 Output: Urine 845 798 5734 Other: Voiding Method Indwelling Catheter Indwelling Catheter Indwelling Catheter # Bowel Movements 1 Weight 128.9 kg ABP, PAP, CO, CI - Last 8 Hours Arterial Blood Pressure 158/64 Arterial Blood Pressure 154/60 Arterial Blood Pressure 133/57 Arterial Blood Pressure 142/59 Arterial Blood Pressure 136/59 Arterial Blood Pressure 150/65 Arterial Blood Pressure 142/65 Arterial Blood Pressure 167/72 Arterial Blood Pressure 155/68 Arterial Blood Pressure 159/71 Arterial Blood Pressure 153/69 Arterial Blood Pressure 155/68 Arterial Blood Pressure 151/66 Arterial Blood Pressure 150/68 Arterial Blood Pressure 146/65 Arterial Blood Pressure 149/65 Arterial Blood Pressure 156/55 Arterial Blood Pressure 151/64 Arterial Blood Pressure 151/64 Arterial Blood Pressure 150/62 Results CBC & Chem 7: 11/18/21 03:35 11/18/21 03:35 Labs: Abnormal Lab Results - Last 24 Hours (Table) 11/16/21 11/16/21 11/16/21 Range/Units 15:56 19:47 23:54 WBC (3.8-10.6) k/uL RBC (4.30-5.90) m/uL Hgb (13.0-17.5) gm/dL Hct (39.0-53.0) % MCV (80.0-100.0) fL RDW (11.5-15.5) % Neutrophils # (1.3-7.7) k/uL ABG pH (7.35-7.45) ABG pCO2 (35-45) mmHg ABG pO2 (83-108) mmHg ABG HCO3 (21-25) mmol/L ABG Total CO2 (19-24) mmol/L ABG O2 Saturation (94-97) % Potassium (3.5-5.1) mmol/L Carbon Dioxide (22-30) mmol/L Creatinine (0.66-1.25) mg/dL Glucose (74-99) mg/dL POC Glucose (mg/dL) 151 H 140 H 100 H (75-99) mg/dL Total Bilirubin (0.2-1.3) mg/dL AST (17-59) U/L ALT (4-49) U/L Albumin (3.5-5.0) g/dL 11/17/21 11/17/21 11/17/21 Range/Units 03:10 03:15 03:15 WBC 16.9 H (3.8-10.6) k/uL RBC 3.38 L (4.30-5.90) m/uL Hgb 11.1 L D (13.0-17.5) gm/dL Hct 34.4 L (39.0-53.0) % MCV 101.9 H (80.0-100.0) fL RDW 15.6 H (11.5-15.5) % Neutrophils # 12.1 H (1.3-7.7) k/uL ABG pH (7.35-7.45) ABG pCO2 (35-45) mmHg ABG pO2 (83-108) mmHg ABG HCO3 (21-25) mmol/L ABG Total CO2 (19-24) mmol/L ABG O2 Saturation (94-97) % Potassium 3.3 L (3.5-5.1) mmol/L Carbon Dioxide 31 H (22-30) mmol/L Creatinine 0.40 L (0.66-1.25) mg/dL Glucose 163 H (74-99) mg/dL POC Glucose (mg/dL) 164 H (75-99) mg/dL Total Bilirubin 1.7 H (0.2-1.3) mg/dL AST 74 H (17-59) U/L ALT 83 H (4-49) U/L Albumin 3.2 L (3.5-5.0) g/dL 11/17/21 11/17/21 11/17/21 Range/Units 05:23 08:09 11:36 WBC (3.8-10.6) k/uL RBC (4.30-5.90) m/uL Hgb (13.0-17.5) gm/dL Hct (39.0-53.0) % MCV (80.0-100.0) fL RDW (11.5-15.5) % Neutrophils # (1.3-7.7) k/uL ABG pH 7.31 L (7.35-7.45) ABG pCO2 67 H (35-45) mmHg ABG pO2 67 L (83-108) mmHg ABG HCO3 34 H (21-25) mmol/L ABG Total CO2 36 H (19-24) mmol/L ABG O2 Saturation 90.3 L (94-97) % Potassium (3.5-5.1) mmol/L Carbon Dioxide (22-30) mmol/L Creatinine (0.66-1.25) mg/dL Glucose (74-99) mg/dL POC Glucose (mg/dL) 231 H 213 H (75-99) mg/dL Total Bilirubin (0.2-1.3) mg/dL AST (17-59) U/L ALT (4-49) U/L Albumin (3.5-5.0) g/dL
[2021-11-18] MEDS: METOPROLOL TARTRATE 50 MG TAB PO SCH ×2 (12:14→23:13)
[2021-11-18] MEDS ORDERED: ANIDULAFUNGIN 200 MG in SODIUM CHLORIDE 0.9% 200 ML IVPB ONE (12:30)
--- NOTE | 2021-11-18 12:35 | XR ---
EXAMINATION TYPE: XR chest 1V portable DATE OF EXAM: 11/18/2021 COMPARISON: 11/18/2021 HISTORY: Shortness of breath TECHNIQUE: Single frontal view of the chest is obtained. FINDINGS: ET tube and left-sided central line noted and there is diffuse bilateral infiltrates small bilateral effusions. Hypertrophic and degenerative changes spine. Surgical clips seen in the soft ti ssue neck. No pneumothorax. IMPRESSION: Stable bilateral infiltrates.
--- NOTE | 2021-11-18 14:29 | P.PN ---
Subjective Progress Note Date: 11/18/21 Principal diagnosis: Acute hypoxic respiratory failure secondary to COVID-19 pneumonia complicated with pulmonary embolism 11/15/2021, the patient has not shown any active bleeding from his tracheostomy site. As mentioned yesterday, the tube has been removed and the patient is currently intubated again. The wound over the neck is dry clean and intact. The patient is on no anticoagulation. Vascular surgery consultation was placed for possibly insertion of a IVC filter. Meanwhile, the patient remains sedated and paralyzed. This morning, he is on propofol running at 70 mcg/kg per minute. He is also on fentanyl at 3 mcg/kg/h Nimbex is running at 3 mcg/kg per minute. The patient is on a mechanical ventilator. This morning, he is on a rate of 22, tidal volume of 400, FiO2 of 70% with a PEEP of 10. His peak airway pressures around 37. He is returning his volume is without any major difficulties. No significant bloody secretions from his orotracheal tube. Breath sounds are equal and symmetrical bilaterally. Chest x-ray showed a stable right apical pneumothorax. There is still diffuse breath and pulmonary infiltrates consistent with overnight he related pneumonia which remains unchanged compared to yesterday. In terms of therapy, the patient is off anticoagulation. Note that the patient had pulmonary embolism at a time of his original presentation b [facility] in 10/26/2021. The patient remains on Decadron 6 mg IV every 24 hours. He is on empiric antibiotic coverage with IV Zosyn knowing that his sputum is shown Streptococcus initially and later on MSSA. He is on no pressors. He is hypertensive. He is on a chiropractor for blood pressure control which is running at 20 mL milligrams an hour. Note that his enteral feeding was stopped briefly yesterday due to the events and possibility of some questionable GI bleed. This morning, there is no active bleeding from his PEG tube and diffuse disease will be restarted. White cell count of 16.7. Hemoglobin stable at 7.9. Platelet count is at 325. Blood gas show a pH of 7.3 with a pCO2 of 68 and pO2 of 76. Rest of the blood work is stable. The abdomen is at 14 with a creatinine of 0.35. Inflammatory markers last checked was on 11/14/2021 and his LDH level was down to 949 and the CRP level was at 5.8. Reevaluated today on 11/16/2021, patient remains in the ICU, intubated and mechanically ventilated. Patient has been intubated since 10/30, patient had a tracheostomy and PEG tube placement. Patient is presently on assist control rate of 22, volume is 400 FiO2 50% and PEEP of 8. ABG showed a pO2 of 73 pCO2 54 pH of 7.43. Peak airway pressure is 31 plateau pressure is 26. A shunt is on fentanyl at 2 mcg/kg/h, he is on propofol at 60 mcg/kg/m, patient is not requiring any paralytics, and today I kept the PEEP at 8, no changes were made in his ventilator settings. Patient is on Decadron 6 mg IV push daily, he is also on enteral feeding vital HPF 10 mL per hour. Vascular surgery was consulted, and I'm strongly recommending a placement of IVC filter, however vascular surgery seems to be reluctant to place IVC filter, patient has absolute contraindication to anticoagulation therapy at this point, and the only recommendation at this point would be to place IVC filter for prevention of further clotting that may come from lower extremities although his venous Doppler is negative at this point. Again patient cannot be placed back on anticoagulation therapy considering the severity of the bleeding he had from the tracheostomy site, requiring removal of tracheostomy and the intubation. Again I have no plans to start this patient on anticoagulation therapy after hearing this story about his significant bleeding from the tracheostomy site. And again the patient has absolute contraindication to anticoagulation therapy. Try to get another vascular surgery consult, however the vascular surgeon I consulted is not available and he is not bonderite operator. WBC count is 7 today hemoglobin is 8.1. ABG as noted earlier. Metabolic profile is normal Reevaluated today on 11/17/2021, patient remains in the ICU, intubated, mechanically ventilated, sedated and paralyzed. Patient had a worsening clinical course yesterday, he developed significant erythema on his abdominal wall, and he developed erythema on his left shoulder, and seems to be involving to some extent his lower extremities with a bit of mottling, according to the nurse this happened shortly after Zosyn infusion. Hence Zosyn was discontinued, although he has been on Zosyn for quite some time, and I transitioned Zosyn to cefepime today. Patient was given 1 dose of hydrocortisone, and today I increased his Decadron 6 mg IV push twice a day. Patient required going back on Nimbex and is on Nimbex at 3 mcg/kg/m because he was tachypneic, he was not synchronous with the ventilator, and he was desaturating. Chest x-ray is basically about the same. Blood pressure was significantly high yesterday, and we had to place him back on clevidipine at 15 mg per hour. Patient is now on propofol at 70 fentanyl 50 mcg/kg/h, Nimbex and clevidipine. His ventilator settings are assist control rate of 22, I'll volume is 400, FiO2 up to 60%, PEEP up to 10. His peak airway pressure is 37, plateau pressure is 53 consistent with ARDS. Patient is supposed to have repeat or revision tracheostomy tomorrow, and this will be done by general surgery. Vascular surgery is extremely reluctant to place a filter in this patient/IVC filter, hence I will restart the patient on Lovenox at 80 mg subcu twice a day, because I believe the patient is a great set up for more thromboembolic disease and pulmonary embolism . As a matter of fact considering his worsening oxygenation over the last 24 hours may already be secondary to worsening thromboembolic disease/pulmonary embolism, and at this point I will restart the patient on Lovenox at a lower dose than he had previously, this will be 80 mg subcu twice a day. We'll hold the dose in the morning of the patient is going for revision of tracheostomy. Obviously the patient is not in any shape to be weaned or extubated anytime soon. Patient remains on enteral feeding via PEG tube which was placed previously. He is receiving vital HPF 10 mL per hour. Reevaluated today on 11/18/2021, around 1 AM this morning, I was notified about this patient doing poorly, desaturating down to the 70s, and chest x-ray showed complete opacification of the left lung with trachea shifting to the ipsilateral side, basically consistent with endobronchial mucous plugging. Hence I came in within 20 minutes, and perform bronchoscopy on this patient, I was able to suction old blood clots from the mainstem bronchus from the left lower lobe bronchus lingula bronchus and left upper lobe bronchus as well as right upper lobe bronchus and right middle lobe bronchus. Follow-up chest x-ray post operatively showed significant improvement in the aeration of the left lung, patient had to be placed on higher FiO2 and high PEEP and had to be sedated, repeat ABG this morning on 80% showed a pO2 of 234 pCO2 57 pH of 7.38. Hence his ventilator settings were readjusted, he is now on 50% FiO2, assist control rate of 30 tidal volume of 350 and the PEEP was cut down to 12. I plan to cut it down further. Patient is on propofol at 60 mcg/kg/m fentanyl at 3 mcg/kg/h and he is also on Nimbex at 3 mcg/kg/m. I am planning to stop Nimbex today. I am cutting his PEEP down to 12, and patient is on tube feeding. Lovenox is presently on hold as the patient may undergo tracheostomy revision again today by Dr. Love. His peak airway pressure today is 28th plateau pressure is 26 which seems to be encouraging, patient is not developing ARDS at least at this point. Patient remains on COVID-19 cocktail, remains on antibiotics, and Eraxis was added by infectious disease on the case. Patient also remains on cefepime. Chest x-ray this morning continues to show significant improvement in the left lung opacification, he has stable bilateral infiltrates secondary to COVID-19 p neumonia. Objective - Vital Signs Vital signs: Vital Signs Temp 98.7 F 11/18/21 08:00 Pulse 47 L 11/18/21 12:00 Resp 30 H 11/18/21 12:00 BP 105/64 11/18/21 10:00 Pulse Ox 100 11/18/21 12:00 Intake & Output 11/17/21 11/18/21 11/18/21 18:59 06:59 18:59 Intake Total 2068.778 1461.497 750.825 Output Total 9444 644 1203 Balance 158.778 880.497 -789.175 Weight 130.4 kg 130.4 kg Intake: IV 371.0 298.5 115 0.9 Normal Saline @ 20 mL 200 240 100 /hr KVO Pressure bag 36 36 15 nimbex 135.0 22.5 Intake, IV Titration 9215.427 6359.997 635.825 Amount Cefepime 2 gm In Sodium 100 Chloride 0.9% 100 ml @ 25 mls/hr IVPB [facility] Rx# :[id number] Cefepime 2 gm In Sodium 100 Chloride 0.9% 100 ml @ 25 mls/hr IVPB Q12HR [facility] Rx #:[id number] Cisatracurium 200 mg In 45.0 Sodium Chloride 0.9% 180 ml @ 1 MCG/KG/MIN 4.899 mls/hr IV .Q24H [facility] Rx#: [id number] Cisatracurium 200 mg In 192.24 200 293.76 Sodium Chloride 0.9% 180 ml @ 1.5 MCG/KG/MIN 10.8 mls/hr IV .[id number] [facility] Rx #:[id number] Clevidipine Butyrate 25 173.834 92.635 mg In Empty Bag 1 bag @ 1 MG/HR 2 mls/hr IV .Q24H [facility] Rx#:[id number] fentaNYL (PF) 2,500 mcg 351.081 248.884 142.065 In Sodium Chloride 0.9% 200 ml @ 0.5 MCG/KG/HR 4. 082 mls/hr IV .Q24H [facility] Rx#:[id number] propofoL 1,000 mg In 595.623 531.478 100 Empty Bag 1 bag @ Titrate IV .Q0M [facility] Rx#: [id number] Tube Feeding 140 60 0 Other 100 30 Output: Urine 9319 517 8374 Stool 1 Other: Voiding Method Indwelling Catheter Indwelling Catheter Indwelling Catheter # Bowel Movements 1 ABP, PAP, CO, CI - Last Documented Arterial Blood Pressure 105/57 - Exam GENERAL EXAM: Alert, restless 61-year-old male patient, intubated and mechanically ventilated. HEAD: Normocephalic. Atraumatic, endotracheal tube is intact. EYES: Normal reaction of pupils, equal size. NOSE: Clear with pink turbinates. THROAT: No erythema or exudates. Endotracheal tube is intact. Tracheostomy site seems to be intact, no active bleeding. NECK: No masses, no JVD. CHEST: No chest wall deformity. LUNGS: Diminished breath sounds at the bases. No rhonchi and no wheezes. CVS: S1 and S2 normal with no audible murmur, regular rhythm. ABDOMEN: No hepatosplenomegaly, normal bowel sounds, no guarding or rigidity. The patient has also had a PEG tube in place which is currently intact. No evidence of any bleeding around the PEG tube. Skin: No rashes. CENTRAL NERVOUS SYSTEM: Could not assess patient is sedated and paralyzed. EXTREMITIES: No clubbing edema or cyanosis. - Labs CBC & Chem 7: 11/18/21 03:35 11/18/21 03:35 Labs: Abnormal Lab Results - Last 24 Hours (Table) 11/17/21 11/17/21 11/17/21 Range/Units 15:44 19:55 23:54 WBC (3.8-10.6) k/uL RBC (4.30-5.90) m/uL Hgb (13.0-17.5) gm/dL Hct (39.0-53.0) % MCV (80.0-100.0) fL Neutrophils # (1.3-7.7) k/uL Lymphocytes # (1.0-4.8) k/uL ABG pH (7.35-7.45) ABG pCO2 (35-45) mmHg ABG pO2 (83-108) mmHg ABG HCO3 (21-25) mmol/L ABG Total CO2 (19-24) mmol/L ABG O2 Saturation (94-97) % Sodium (137-145) mmol/L BUN (9-20) mg/dL Creatinine (0.66-1.25) mg/dL Glucose (74-99) mg/dL POC Glucose (mg/dL) 168 H 112 H 134 H (75-99) mg/dL Calcium (8.4-10.2) mg/dL Total Bilirubin (0.2-1.3) mg/dL AST (17-59) U/L ALT (4-49) U/L Total Protein (6.3-8.2) g/dL Albumin (3.5-5.0) g/dL 11/18/21 11/18/21 11/18/21 Range/Units 00:55 03:27 03:35 WBC 14.9 H (3.8-10.6) k/uL RBC 3.20 L (4.30-5.90) m/uL Hgb 10.7 L (13.0-17.5) gm/dL Hct 33.1 L (39.0-53.0) % MCV 103.3 H (80.0-100.0) fL Neutrophils # 12.9 H (1.3-7.7) k/uL Lymphocytes # 0.7 L (1.0-4.8) k/uL ABG pH 7.29 L (7.35-7.45) ABG pCO2 72 H* (35-45) mmHg ABG pO2 60 L (83-108) mmHg ABG HCO3 35 H (21-25) mmol/L ABG Total CO2 37 H (19-24) mmol/L ABG O2 Saturation 85.6 L (94-97) % Sodium (137-145) mmol/L BUN (9-20) mg/dL Creatinine (0.66-1.25) mg/dL Glucose (74-99) mg/dL POC Glucose (mg/dL) 234 H (75-99) mg/dL Calcium (8.4-10.2) mg/dL Total Bilirubin (0.2-1.3) mg/dL AST (17-59) U/L ALT (4-49) U/L Total Protein (6.3-8.2) g/dL Albumin (3.5-5.0) g/dL 11/18/21 11/18/21 11/18/21 Range/Units 03:35 05:48 08:20 WBC (3.8-10.6) k/uL RBC (4.30-5.90) m/uL Hgb (13.0-17.5) gm/dL Hct (39.0-53.0) % MCV (80.0-100.0) fL Neutrophils # (1.3-7.7) k/uL Lymphocytes # (1.0-4.8) k/uL ABG pH (7.35-7.45) ABG pCO2 57 H (35-45) mmHg ABG pO2 234 H (83-108) mmHg ABG HCO3 33 H (21-25) mmol/L ABG Total CO2 35 H (19-24) mmol/L ABG O2 Saturation 100.0 H (94-97) % Sodium 135 L (137-145) mmol/L BUN 21 H (9-20) mg/dL Creatinine 0.49 L (0.66-1.25) mg/dL Glucose 218 H (74-99) mg/dL POC Glucose (mg/dL) 141 H (75-99) mg/dL Calcium 8.2 L (8.4-10.2) mg/dL Total Bilirubin 1.8 H (0.2-1.3) mg/dL AST 92 H (17-59) U/L ALT 138 H (4-49) U/L Total Protein 6.1 L (6.3-8.2) g/dL Albumin 3.0 L (3.5-5.0) g/dL 11/18/21 Range/Units 11:27 WBC (3.8-10.6) k/uL RBC (4.30-5.90) m/uL Hgb (13.0-17.5) gm/dL Hct (39.0-53.0) % MCV (80.0-100.0) fL Neutrophils # (1.3-7.7) k/uL Lymphocytes # (1.0-4.8) k/uL ABG pH (7.35-7.45) ABG pCO2 (35-45) mmHg ABG pO2 (83-108) mmHg ABG HCO3 (21-25) mmol/L ABG Total CO2 (19-24) mmol/L ABG O2 Saturation (94-97) % Sodium (137-145) mmol/L BUN (9-20) mg/dL Creatinine (0.66-1.25) mg/dL Glucose (74-99) mg/dL POC Glucose (mg/dL) 129 H (75-99) mg/dL Calcium (8.4-10.2) mg/dL Total Bilirubin (0.2-1.3) mg/dL AST (17-59) U/L ALT (4-49) U/L Total Protein (6.3-8.2) g/dL Albumin (3.5-5.0) g/dL Assessment and Plan Assessment: Impression: Acute hypoxic respiratory failure secondary to COVID-19 pneumonia and secondary to acute pulmonary embolism which is a complication related to COVID-19 infection. Patient is not vaccinated. Patient was intubated on 10/30, underwent tracheostomy on 11/10, however he developed significant bleeding from the tracheostomy site/his stoma and he required reintubation with endotracheal tube, today considering the fact that vascular surgery is extremely reluctant and not willing to place a IVC filter, I will go ahead and restart the patient on Lovenox at 80 mg subcu twice a day, however if the patient develops any bleeding will recontact vascular surgery for IVC filter, otherwise I will transfer the patient to another institution. Acute bilateral pulmonary embolism Type 2 diabetes with diabetic neuropathy Epistaxis, resolved after stopping anticoagulation therapy, we will have to sara sely watch for possible epistaxis now the patient is back on Lovenox. History of obstructive sleep apnea and previous UPPP History of right eye melanoma Previous history of CVA History of rheumatoid arthritis and gout Previous history of MRSA infection in the back. Elevated inflammatory markers Pneumomediastinum and subcutaneous emphysema at the complication of COVID-19 pneumonia Tiny right apical pneumothorax, resolved. Hypertension Dyslipidemia Left lung collapse secondary to mucus plugging and all the blood clots requiring therapeutic bronchoscopy, lavage of the left lung, extraction of blood clots from the left mainstem bronchus, left upper lobe bronchus, lingula, left lower lobe bronchus, right upper lobe bronchus, and right middle lobe bronchus. With complete reexpansion of the left lung post, this was done on 11/18/2021. Recommendation: Continue ventilatory support, titrate PEEP down to 12, and discontinue Nimbex. Continue fentanyl and propofol for now. Continue Decadron. 6 mg twice a day. Continue Eraxis and cefepime. Continue insulin and monitor sugars closely. Resume Lovenox at 80 mg subcu twice a day after tracheostomy today if possible. Continue to monitor closely for any form of bleeding while the patient is on Lovenox. Continue nutritional support/enteral feeding Continue COVID-19 cocktail. Discussed patient's condition with sister at bedside today. Patient remains critically ill, and prognosis is guarded. critical care time is over 30. Minutes Time with Patient: Greater than 30
--- NOTE | 2021-11-18 15:25 | P.PN ---
Subjective Progress Note Date: 11/18/21 CHIEF COMPLAINT: COVID-19 pneumonia HISTORY OF PRESENT ILLNESS: Patient is in the ICU on mechanical ventilation and sedated. He is status post tracheostomy and PEG tube placement on 11/10/2021. Patient was scheduled for revision of tracheostomy today. Procedure was rescheduled until tomorrow because of staffing issues in the OR. Patient had bleeding at tracheostomy site and required revision and removal of tracheostomy. Patient is currently intubated. He is still having issues with desaturation. He has had no further bleeding from tracheostomy site. He is tolerating tube feedings. Afebrile. WBC 14.9 hemoglobin 10.7 potassium 4.2 creatinine 0.49 Patient seen and examined with Dr. daniel PHYSICAL EXAM: VITAL SIGNS: Reviewed. GENERAL: Well-developed in no acute distress. HEENT: Head is atraumatic, normocephalic. dressing at old trach site clean, dry and intact ABDOMEN: Soft. Nondistended. Nontender. PEG tube site clean dry and intact NEUROLOGIC: Intubated and sedated ASSESSMENT: 1. Acute hypoxic respiratory failure secondary to COVID-19 pneumonia requiring mechanical ventilation 2. Severe protein calorie malnutrition 3. Bilateral pulmonary emboli 4. Bleeding at tracheostomy site status post revision and removal of tracheostomy 5. Hypokalemia improved PLAN: -Revision of tracheostomy rescheduled for , 11/18/[address] Daniel -Hold tube feedings after midnight -Hold Lovenox tomorrow morning, 11/19/2021 -Continue ICU management and supportive care Physician Aircraft Engine Dismantler note has been reviewed by physician. Signing provider agrees with the documented findings, assessment, and plan of care. Objective - Vital Signs Vital signs: Vital Signs Temp 98.7 F 11/18/21 08:00 Pulse 50 L 11/18/21 15:00 Resp 30 H 11/18/21 15:00 BP 105/64 11/18/21 10:00 Pulse Ox 99 11/18/21 15:00 Intake & Output 11/17/21 11/18/21 11/18/21 18:59 06:59 18:59 Intake Total 2068.778 1461.497 854.885 Output Total 7426 542 9624 Balance 158.778 880.497 -685.115 Weight 130.4 kg 130.4 kg Intake: IV 371.0 298.5 204 0.9 Normal Saline @ 20 mL 200 240 180 /hr KVO Pressure bag 36 36 24 nimbex 135.0 22.5 Intake, IV Titration 1580.712 2437.997 650.885 Amount Cefepime 2 gm In Sodium 100 Chloride 0.9% 100 ml @ 25 mls/hr IVPB ONCE [facility] Rx# :[id number] Cefepime 2 gm In Sodium 100 Chloride 0.9% 100 ml @ 25 mls/hr IVPB Q12HR [facility] Rx #:[id number] Cisatracurium 200 mg In 45.0 Sodium Chloride 0.9% 180 ml @ 1 MCG/KG/MIN 4.899 mls/hr IV .Q24H [facility] Rx#: [id number] Cisatracurium 200 mg In 192.24 200 308.82 Sodium Chloride 0.9% 180 ml @ 1.5 MCG/KG/MIN 10.8 mls/hr IV .[id number] [facility] Rx #:[id number] Clevidipine Butyrate 25 173.834 92.635 mg In Empty Bag 1 bag @ 1 MG/HR 2 mls/hr IV .Q24H [facility] Rx#:[id number] fentaNYL (PF) 2,500 mcg 351.081 248.884 142.065 In Sodium Chloride 0.9% 200 ml @ 0.5 MCG/KG/HR 4. 082 mls/hr IV .Q24H [facility] Rx#:[id number] propofoL 1,000 mg In 595.623 531.478 100 Empty Bag 1 bag @ Titrate IV .Q0M [facility] Rx#: [id number] Tube Feeding 140 60 0 Other 100 30 Output: Urine 3919 380 0785 Stool 1 Other: Voiding Method Indwelling Catheter Indwelling Catheter Indwelling Catheter # Bowel Movements 1 ABP, PAP, CO, CI - Last Documented Arterial Blood Pressure 133/69 - Labs CBC & Chem 7: 11/18/21 03:35 11/18/21 03:35 Labs: Abnormal Lab Results - Last 24 Hours (Table) 11/17/21 11/17/21 11/17/21 Range/Units 15:44 19:55 23:54 WBC (3.8-10.6) k/uL RBC (4.30-5.90) m/uL Hgb (13.0-17.5) gm/dL Hct (39.0-53.0) % MCV (80.0-100.0) fL Neutrophils # (1.3-7.7) k/uL Lymphocytes # (1.0-4.8) k/uL ABG pH (7.35-7.45) ABG pCO2 (35-45) mmHg ABG pO2 (83-108) mmHg ABG HCO3 (21-25) mmol/L ABG Total CO2 (19-24) mmol/L ABG O2 Saturation (94-97) % Sodium (137-145) mmol/L BUN (9-20) mg/dL Creatinine (0.66-1.25) mg/dL Glucose (74-99) mg/dL POC Glucose (mg/dL) 168 H 112 H 134 H (75-99) mg/dL Calcium (8.4-10.2) mg/dL Total Bilirubin (0.2-1.3) mg/dL AST (17-59) U/L ALT (4-49) U/L Total Protein (6.3-8.2) g/dL Albumin (3.5-5.0) g/dL 11/18/21 11/18/21 11/18/21 Range/Units 00:55 03:27 03:35 WBC 14.9 H (3.8-10.6) k/uL RBC 3.20 L (4.30-5.90) m/uL Hgb 10.7 L (13.0-17.5) gm/dL Hct 33.1 L (39.0-53.0) % MCV 103.3 H (80.0-100.0) fL Neutrophils # 12.9 H (1.3-7.7) k/uL Lymphocytes # 0.7 L (1.0-4.8) k/uL ABG pH 7.29 L (7.35-7.45) ABG pCO2 72 H* (35-45) mmHg ABG pO2 60 L (83-108) mmHg ABG HCO3 35 H (21-25) mmol/L ABG Total CO2 37 H (19-24) mmol/L ABG O2 Saturation 85.6 L (94-97) % Sodium (137-145) mmol/L BUN (9-20) mg/dL Creatinine (0.66-1.25) mg/dL Glucose (74-99) mg/dL POC Glucose (mg/dL) 234 H (75-99) mg/dL Calcium (8.4-10.2) mg/dL Total Bilirubin (0.2-1.3) mg/dL AST (17-59) U/L ALT (4-49) U/L Total Protein (6.3-8.2) g/dL Albumin (3.5-5.0) g/dL 11/18/21 11/18/21 11/18/21 Range/Units 03:35 05:48 08:20 WBC (3.8-10.6) k/uL RBC (4.30-5.90) m/uL Hgb (13.0-17.5) gm/dL Hct (39.0-53.0) % MCV (80.0-100.0) fL Neutrophils # (1.3-7.7) k/uL Lymphocytes # (1.0-4.8) k/uL ABG pH (7.35-7.45) ABG pCO2 57 H (35-45) mmHg ABG pO2 234 H (83-108) mmHg ABG HCO3 33 H (21-25) mmol/L ABG Total CO2 35 H (19-24) mmol/L ABG O2 Saturation 100.0 H (94-97) % Sodium 135 L (137-145) mmol/L BUN 21 H (9-20) mg/dL Creatinine 0.49 L (0.66-1.25) mg/dL Glucose 218 H (74-99) mg/dL POC Glucose (mg/dL) 141 H (75-99) mg/dL Calcium 8.2 L (8.4-10.2) mg/dL Total Bilirubin 1.8 H (0.2-1.3) mg/dL AST 92 H (17-59) U/L ALT 138 H (4-49) U/L Total Protein 6.1 L (6.3-8.2) g/dL Albumin 3.0 L (3.5-5.0) g/dL 11/18/21 Range/Units 11:27 WBC (3.8-10.6) k/uL RBC (4.30-5.90) m/uL Hgb (13.0-17.5) gm/dL Hct (39.0-53.0) % MCV (80.0-100.0) fL Neutrophils # (1.3-7.7) k/uL Lymphocytes # (1.0-4.8) k/uL ABG pH (7.35-7.45) ABG pCO2 (35-45) mmHg ABG pO2 (83-108) mmHg ABG HCO3 (21-25) mmol/L ABG Total CO2 (19-24) mmol/L ABG O2 Saturation (94-97) % Sodium (137-145) mmol/L BUN (9-20) mg/dL Creatinine (0.66-1.25) mg/dL Glucose (74-99) mg/dL POC Glucose (mg/dL) 129 H (75-99) mg/dL Calcium (8.4-10.2) mg/dL Total Bilirubin (0.2-1.3) mg/dL AST (17-59) U/L ALT (4-49) U/L Total Protein (6.3-8.2) g/dL Albumin (3.5-5.0) g/dL
--- NOTE | 2021-11-18 16:20 | P.PN ---
Subjective Progress Note Date: 11/18/21 This is 61-year-old male who is admitted to the ICU with acute hypoxic respiratory failure related to COVID-19 pneumonia who is currently sedated and intubated. The patient had undergone tracheostomy placement and apparently a couple days later the patient had significant amount of bleeding from his trac heostomy site and around the stoma. The tracheostomy was removed and general surgery had taken him back to the operating room for revision and exploration of the wound. At the current time of the surgical bleed he had been on Eliquis for pulmonary embolism. It is currently on hold. He has had no further bleeding from the tracheostomy site following surgical intervention. Vascular surgery was asked to place an IVC filter in this patient. The patient has had 2 lower extremity venous duplexes that were negative for DVT. The patient was seen today as a follow-up. He is scheduled to undergo tracheostomy revision however patient will be rescheduled tomorrow. Patient has currently been on Lovenox 10 mg every 12 hours with no evidence of bleeding. Hemoglobin is stable at 10.7. Objective - Vital Signs Vital signs: Vital Signs Temp 98.7 F 11/18/21 08:00 Pulse 50 L 11/18/21 15:00 Resp 30 H 11/18/21 15:00 BP 105/64 11/18/21 10:00 Pulse Ox 99 11/18/21 15:00 Intake & Output 11/17/21 11/18/21 11/18/21 18:59 06:59 18:59 Intake Total 2068.778 1461.497 854.885 Output Total 7678 326 1782 Balance 158.778 880.497 -685.115 Weight 130.4 kg 130.4 kg Intake: IV 371.0 298.5 204 0.9 Normal Saline @ 20 mL 200 240 180 /hr KVO Pressure bag 36 36 24 nimbex 135.0 22.5 Intake, IV Titration 6442.254 4800.997 650.885 Amount Cefepime 2 gm In Sodium 100 Chloride 0.9% 100 ml @ 25 mls/hr IVPB ONCE [facility] Rx# :[id number] Cefepime 2 gm In Sodium 100 Chloride 0.9% 100 ml @ 25 mls/hr IVPB Q12HR [facility] Rx #:[id number] Cisatracurium 200 mg In 45.0 Sodium Chloride 0.9% 180 ml @ 1 MCG/KG/MIN 4.899 mls/hr IV .Q24H [facility] Rx#: [id number] Cisatracurium 200 mg In 192.24 200 308.82 Sodium Chloride 0.9% 180 ml @ 1.5 MCG/KG/MIN 10.8 mls/hr IV .[id number] [facility] Rx #:[id number] Clevidipine Butyrate 25 173.834 92.635 mg In Empty Bag 1 bag @ 1 MG/HR 2 mls/hr IV .Q24H [facility] Rx#:[id number] fentaNYL (PF) 2,500 mcg 351.081 248.884 142.065 In Sodium Chloride 0.9% 200 ml @ 0.5 MCG/KG/HR 4. 082 mls/hr IV .Q24H [facility] Rx#:[id number] propofoL 1,000 mg In 595.623 531.478 100 Empty Bag 1 bag @ Titrate IV .Q0M [facility] Rx#: [id number] Tube Feeding 140 60 0 Other 100 30 Output: Urine 7710 025 7097 Stool 1 Other: Voiding Method Indwelling Catheter Indwelling Catheter Indwelling Catheter # Bowel Movements 1 ABP, PAP, CO, CI - Last Documented Arterial Blood Pressure 133/69 - Exam General appearance: The patient is sedated and intubated. HET: Head is normocephalic and atraumatic. Pupils are equal and reactive. Oropharynx is clear without lesions. Neck: Supple without lymphadenopathy. Trachea midline. Heart: S1 S2. Regular rate and rhythm. Lungs: On mechanical ventilation. No crackles or wheezes are heard. Abdomen: Soft, nontender, nondistended. Extremities: Normal skin color and turgor. Edema to bilateral lower extremities. Neurological: Sedated and intubated. - Labs CBC & Chem 7: 11/18/21 03:35 11/18/21 03:35 Labs: Abnormal Lab Results - Last 24 Hours (Table) 11/17/21 11/17/21 11/18/21 Range/Units 19:55 23:54 00:55 WBC (3.8-10.6) k/uL RBC (4.30-5.90) m/uL Hgb (13.0-17.5) gm/dL Hct (39.0-53.0) % MCV (80.0-100.0) fL Neutrophils # (1.3-7.7) k/uL Lymphocytes # (1.0-4.8) k/uL ABG pH 7.29 L (7.35-7.45) ABG pCO2 72 H* (35-45) mmHg ABG pO2 60 L (83-108) mmHg ABG HCO3 35 H (21-25) mmol/L ABG Total CO2 37 H (19-24) mmol/L ABG O2 Saturation 85.6 L (94-97) % Sodium (137-145) mmol/L BUN (9-20) mg/dL Creatinine (0.66-1.25) mg/dL Glucose (74-99) mg/dL POC Glucose (mg/dL) 112 H 134 H (75-99) mg/dL Calcium (8.4-10.2) mg/dL Total Bilirubin (0.2-1.3) mg/dL AST (17-59) U/L ALT (4-49) U/L Total Protein (6.3-8.2) g/dL Albumin (3.5-5.0) g/dL 11/18/21 11/18/21 11/18/21 Range/Units 03:27 03:35 03:35 WBC 14.9 H (3.8-10.6) k/uL RBC 3.20 L (4.30-5.90) m/uL Hgb 10.7 L (13.0-17.5) gm/dL Hct 33.1 L (39.0-53.0) % MCV 103.3 H (80.0-100.0) fL Neutrophils # 12.9 H (1.3-7.7) k/uL Lymphocytes # 0.7 L (1.0-4.8) k/uL ABG pH (7.35-7.45) ABG pCO2 (35-45) mmHg ABG pO2 (83-108) mmHg ABG HCO3 (21-25) mmol/L ABG Total CO2 (19-24) mmol/L ABG O2 Saturation (94-97) % Sodium 135 L (137-145) mmol/L BUN 21 H (9-20) mg/dL Creatinine 0.49 L (0.66-1.25) mg/dL Glucose 218 H (74-99) mg/dL POC Glucose (mg/dL) 234 H (75-99) mg/dL Calcium 8.2 L (8.4-10.2) mg/dL Total Bilirubin 1.8 H (0.2-1.3) mg/dL AST 92 H (17-59) U/L ALT 138 H (4-49) U/L Total Protein 6.1 L (6.3-8.2) g/dL Albumin 3.0 L (3.5-5.0) g/dL 11/18/21 11/18/21 11/18/21 Range/Units 05:48 08:20 11:27 WBC (3.8-10.6) k/uL RBC (4.30-5.90) m/uL Hgb (13.0-17.5) gm/dL Hct (39.0-53.0) % MCV (80.0-100.0) fL Neutrophils # (1.3-7.7) k/uL Lymphocytes # (1.0-4.8) k/uL ABG pH (7.35-7.45) ABG pCO2 57 H (35-45) mmHg ABG pO2 234 H (83-108) mmHg ABG HCO3 33 H (21-25) mmol/L ABG Total CO2 35 H (19-24) mmol/L ABG O2 Saturation 100.0 H (94-97) % Sodium (137-145) mmol/L BUN (9-20) mg/dL Creatinine (0.66-1.25) mg/dL Glucose (74-99) mg/dL POC Glucose (mg/dL) 141 H 129 H (75-99) mg/dL Calcium (8.4-10.2) mg/dL Total Bilirubin (0.2-1.3) mg/dL AST (17-59) U/L ALT (4-49) U/L Total Protein (6.3-8.2) g/dL Albumin (3.5-5.0) g/dL Assessment and Plan Assessment: 1. Bilateral pulmonary emboli on Eliquis, currently on hold for acute bleed 2. Acute bleed related to tracheostomy, resolved 3. Acute Hypoxic respiratory failure related to COVID-19 pneumonia status post intubation, tracheostomy and PEG tube placement 4. History of diabetes mellitus type 2 with diabetic neuropathy 5. Epistaxis, resolved 6. History of obstructive sleep apnea Plan: 1. Continue symptomatic and supportive care 2. Continue ICU management 3. There are no plans at this time to place IVC filter, if patient has further bleeding and can not continue anitcoagulation will require IVC filter placement 4. We'll continue to monitor closely and place filter if any signs of bleeding. Thank you for this consultation. The impression and plan of care has been dictated as directed. Dr. Perry I performed a history and examination of this patient, discussed the same with the dictator. I agree with the dictator's note ,documented as a scribe. Any additional findings or plans will be noted.
[2021-11-18 16:58] LABS: Glucose,Whole Blood 136 mg/dL (75-99)
--- NOTE | 2021-11-18 18:27 | P.PN ---
Progress Note - Text Progress Note Date: 11/18/21 Chief Complaint: Short of breath This is a pleasant 61-year-old patient, chronic stable medical conditions include diabetes, hypertension, hyperlipidemia, osteoarthritis, peripheral neuropathy, chronic gout. Patient presents with increasing shortness of breath. Cough. Clear sputum. Fever and chills. Tired rundown decrease appetite and diarrhea about 2 times a day. Patient tested positive for COVID-19 on October 09. His initial rapid COVID-19 was negative. In the send out came back positive. Patient did not take the vaccine against COVID-19. He is on 8 L of oxygen this morning. He is outside the window for Remdesivir. Admitted with COVID 19 pneumonitis, acute hypoxic respiratory failure. Started on Decadron. IV fluids. October 26 chest CTA showed bilateral pulmonary embolism. Breathing cord worse in October 30 patient is intubated. Requiring various drips. 2 feeding was started. November 10 patient got a tracheostomy and a PEG tube. Patient subsequently had a large bleed from the tracheostomy site. Desaturated. Tracheostomy had to be removed. Bedside bronchoscopy was done. Large blood loss was removed. Was put back on the ventilator/intubated. Required FFP. November 14: ICU. Patient had no bleeding around the tracheostomy site. Patient had desaturated. Tracheostomy had to be removed. The insurance processor, surgeon, anesthesia@tibia the bedside. Bronchoscopy was done. Blood was removed from the trachea and the bronchus. Patient put back on the ventilator. Currently 50/10. Drips include fentanyl, propofol, cleviprex. Given FFP. Review of systems: Intubated. Anticoagulation obviously has been discontinued. younger daughter the bedside. Updated. November 15: ICU. Ventilator: 60/90. Drips included propofol and fentanyl. Telemetry: Sinus rhythm. 2 feeding at 10 mL an hour. Another daughter the bedside. November 16: ICU. 2 feeding at 10 mL an hour. Ventilator: 50/8. Drips include propranolol, factor. Since patient cannot be anticoagulated at the present time. [place] filter being ordered. November 17: ICU. Ventilator: FiO2 50 and a PEEP of 10. 2 feeding at 10 mL an hour. Drips include fentanyl, propofol, Nimbex. Telemetry shows sinus rhythm. Patient seen by Dr. Larsen from vascular.: Recommended No IVC filter. Following revision of tracheostomy to resume adequate ventilation. Patient going in tomorrow for revision of tracheostomy by Dr. Love. November 18: ICU. Ventilator: 50/12. Current drips include fentanyl, propofol, Nimbex. Tracheostomy rescheduled for tomorrow. 2 feeding to be held after midnight. Hold Lovenox. Review of systems: Patient intubated Active Medications Acetaminophen (Acetaminophen Tab 325 Mg Tab) 650 mg PO Q6HR PRN PRN Reason: Mild Pain or Fever > 100.5 Last Admin: 10/29/21 15:46 Dose: 650 mg Documented by: Albuterol Sulfate (Albuterol Hfa Inhaler) 2 puff INHALATION RT-QID PRN PRN Reason: Shortness Of Breath Last Admin: 11/14/21 20:22 Dose: 2 puff Documented by: Artificial Tears (Artificial Tears-Hypromellose Drops 15 Ml Btl) 2 drops BOTH EYES Q4HR [facility] Last Admin: 11/18/21 16:59 Dose: 2 drops Documented by: Ascorbic Acid (Ascorbic Acid 500 Mg Tab) 1,000 mg PO DAILY [facility] Last Admin: 11/18/21 08:28 Dose: 1,000 mg Documented by: Bisacodyl (Bisacodyl 10 Mg Supp) 10 mg RECTAL BID [facility] Last Admin: 11/18/21 08:28 Dose: Not Given Documented by: Chlorhexidine Gluconate (Chlorhexidine Gluconate 15 Ml Cup) 15 ml MUCOUS MEM BID [facility] Last Admin: 11/18/21 08:28 Dose: 15 ml Documented by: Cholecalciferol (Cholecalciferol 25 Mcg (1000 Iu) Tablet) 25 mcg PO DAILY [facility] Last Admin: 11/18/21 08:28 Dose: 25 mcg Documented by: Dexamethasone Sodium Phosphate (Dexamethasone Sod Phosphate 10 Mg/Ml 1 Ml Vial) 6 mg IVP BID [facility] Last Admin: 11/18/21 08:27 Dose: 6 mg Documented by: Docusate Sodium (Docusate Oral Soln 100 Mg/10 Ml Cup) 100 mg PO BID [facility] Last Admin: 11/18/21 08:28 Dose: Not Given Documented by: Enoxaparin Sodium (Enoxaparin 80 Mg/0.8 Ml Syringe) 80 mg SQ Q12HR [facility] Last Admin: 11/18/21 08:29 Dose: Not Given Documented by: Furosemide (Furosemide 10 Mg/Ml 4 Ml Vial) 40 mg IV DAILY [facility] Last Admin: 11/18/21 08:27 Dose: 40 mg Documented by: Hydralazine HCl (Hydralazine Hcl 20 Mg/Ml 1 Ml Vial) 20 mg IVP Q4HR PRN PRN Reason: Blood Pressure - High SBP >160 Last Admin: 11/18/21 00:31 Dose: 20 mg Documented by: Propofol 1,000 mg/ IV Solution 100 mls @ 0 mls/hr IV .Q0M [facility]; Protocol Last Admin: 11/18/21 13:35 Dose: 60 mcg/kg/min, 46.944 mls/hr Documented by: Cisatracurium Besylate 200 mg/ (Sodium Chloride) 200 mls @ 10.8 mls/hr IV .[id number] [facility]; Protocol Last Titration: 11/18/21 15:00 Dose: 1 mcg/kg/min, 7.2 mls/hr Documented by: Fentanyl Citrate 2,500 mcg/ (Sodium Chloride) 250 mls @ 4.082 mls/hr IV .Q24H [facility]; Protocol Last Admin: 11/18/21 16:52 Dose: 1 mcg/kg/hr, 8.165 mls/hr Documented by: Clevidipine 25 mg/ IV Solution 50 mls @ 2 mls/hr IV .Q24H [facility]; Protocol Last Titration: 11/18/21 03:35 Dose: 0 mg/hr, 0 mls/hr Documented by: Anidulafungin 100 mg/ Sodium (Chloride) 100 mls @ 84 mls/hr IVPB DAILY@1200 [facility] Insulin Aspart (Insulin Aspart (Novolog) 100 Unit/Ml Vial) 0 unit SQ Q4HR [facility]; Protocol Last Admin: 11/18/21 16:59 Dose: 1 unit Documented by: Insulin Detemir (Insulin Detemir (Levemir) 100 Unit/Ml Syr) 24 unit SQ HS [facility] Last Admin: 11/17/21 20:50 Dose: 24 unit Documented by: Lactulose (Lactulose 20 Gm/30 Ml Cup) 10 gm PO BID [facility] Last Admin: 11/18/21 08:29 Dose: Not Given Documented by: Metoprolol Tartrate (Metoprolol Tartrate 50 Mg Tab) 50 mg PO BID [facility] Last Admin: 11/18/21 12:14 Dose: Not Given Documented by: Miscellaneous Information (Potassium Replacement Protocol 1 Each Misc) 1 each MISCELLANE DAILY PRN; Protocol PRN Reason: Per Protocol Pantoprazole Sodium (Pantoprazole 40 Mg/10 Ml Vial) 40 mg IVP DAILY [facility] Last Admin: 11/18/21 08:28 Dose: 40 mg Documented by: Pregabalin (Pregabalin 100 Mg Cap) 200 mg PO BID [facility] Last Admin: 11/18/21 08:28 Dose: 200 mg Documented by: Sertraline HCl (Sertraline 50 Mg Tab) 50 mg PO DAILY [facility] Last Admin: 11/18/21 08:28 Dose: 50 mg Documented by: Zinc Sulfate (Zinc Sulfate 220 Mg Cap) 220 mg PO DAILY [facility] Last Admin: 11/18/21 08: Dose: 220 mg Documented by: Social history: Patient is on Social Security. Does not smoke or drink alcohol. Patient's daughters family lives with him. Family history: Father at the age of 40 with heart attack Physical examination: VITAL SIGNS: 98.7, 47, 30, 105/57, 100% on the ventilator GENERAL: Laying in bed, intubated. PEG tube . LUNGS: Respiratory rate increased,. PSYCH: Unable to assess Rest of the exam per nursing and pulmonary INVESTIGATIONS, reviewed in the clinical context: November 18: White count 14.9 hemoglobin 10.7 potassium 4.2 creatinine 0.49 Blood culture positive for Staphylococcus epidermidis/coagulates negative. November 17: White count 16.9 hemoglobin 11.1 potassium 3.3 creatinine 0.4 November 16: White count 17 hemoglobin 8.1 potassium 3.2 creatinine 0.5 to October 28: D-dimer 13.4 to October 26: D-dimer 8.48 CRP 24 Chest CTA [October 26: biLateral pulmonary embolism Doppler ultrasound lower extremity: Negative for DVT October 24: White count 9.7 hemoglobin 15.3 platelets 221 d-dimer 1.93 progression 4.2 creatinine 0.71 CRP 5.5 pro-calcitonin 0.08 White count 9.9 hemoglobin 16 platelets 234 d-dimer 0.98 sodium 141 potassium 3.4 creatinine 0.81 Lactic acid 2.9 LDH 1422 CRP 7.5 EKG tracing personally reviewed by me-normal sinus rhythm. Nonspecific ST segment changes. Chest x-ray film personally reviewed by me-bilateral infiltrates Assessment and plan: -Acute severe COVID 19 pneumonitis in a patient who did not take the COVID-19 vaccine: Slow to respond Dexamethasone, vitamin C, vitamin D, zinc. outside the window for Remdesivir. -Acute hypoxic respiratory failure from COVID-19: Slow to respond intubated October 30. FiO2 50/12 -Active bleeding around tracheostomy into the trachea and lungs. Status post bronchoscopy. Evacuation of large amounts of blood clot. Tracheostomy removed. Patient reintubated. Pending revision of tracheostomy tube rescheduled for November 19 -Bilateral pulmonary embolism secondary to COVID-19 Eliquis -discontinued because of bleeding. No [place] filter per vascular. Patient to resume anticoagulation once tracheostomy revision done. -Essential hypertension Lopressor 25 mg twice a day, -Diabetes mellitus type 2, on oral hypoglycemic, uncontrolled with hyperglycemia Levemir 24 units daily at bedtime. Follow Accu-Cheks -Chronic insomnia for medical conditions Elavil 50 mg daily at bedtime -Hyperlipidemia TriCor 48 mg daily -Hypoalbuminemia Acute phase reactant -Obstructive sleep apnea On CPAP at home -Pneumomediastinum and subcutis emphysema complications of COVID-19/pneumonia. - right upper apical pneumothorax less than 5%. -Diabetic peripheral neuropathy Lyrica 200 mg twice daily -Full code Drips : fentanyl , propofol . Nimbex , Ventilator. . Prognosis guarded. Empirically on IV Zosyn. No [place] filter per vascular. revision of tracheostomy tomorrow.
[2021-11-18] MEDS: INSULIN DETEMIR (LEVEMIR) 100 UNIT/ML SYR SQ SCH (20:35)
--- NOTE | 2021-11-18 21:14 | P.PN ---
Subjective Progress Note Date: 11/18/21 Principal diagnosis: Pneumonia, rash, leukocytosis Patient is a 61-year male admitted to the hospital October 23, 2021 patient diagnosed with COVID-19 pneumonia did have a respiratory failure requiring intubation failed to be extubated status post trach and PEG on November 10, 2021 patient also have a component of secondary to pneumonia with MSSA patient has received more than 2 weeks course of Zosyn which was discontinued 11/17/2021 because of rash. On today's evaluation that is 11/18/2021 the patient remains to be afebrile, patient is hemodynamically stable, FiO2 is currently 50% no significant purulent secretion through the ET or diarrhea reported by nursing staff Objective - Vital Signs Vital signs: Vital Signs Temp 98.7 F 11/18/21 08:00 Pulse 45 L 11/18/21 11:00 Resp 30 H 11/18/21 11:00 BP 105/64 11/18/21 10:00 Pulse Ox 99 11/18/21 11:00 Intake & Output 11/17/21 11/18/21 11/18/21 18:59 06:59 18:59 Intake Total 2068.778 1461.497 395.72 Output Total 2015 271 8302 Balance 158.778 880.497 -1144.28 Weight 130.4 kg 130.4 kg Intake: IV 371.0 298.5 115 0.9 Normal Saline @ 20 mL 200 240 100 /hr KVO Pressure bag 36 36 15 nimbex 135.0 22.5 Intake, IV Titration 6793.914 6691.997 280.72 Amount Cefepime 2 gm In Sodium 100 Chloride 0.9% 100 ml @ 25 mls/hr IVPB ONCE [facility] Rx# :[id number] Cefepime 2 gm In Sodium 100 Chloride 0.9% 100 ml @ 25 mls/hr IVPB Q12HR [facility] Rx #:[id number] Cisatracurium 200 mg In 45.0 Sodium Chloride 0.9% 180 ml @ 1 MCG/KG/MIN 4.899 mls/hr IV .Q24H [facility] Rx#: [id number] Cisatracurium 200 mg In 192.24 200 180.72 Sodium Chloride 0.9% 180 ml @ 1.5 MCG/KG/MIN 10.8 mls/hr IV .[id number] [facility] Rx #:[id number] Clevidipine Butyrate 25 173.834 92.635 mg In Empty Bag 1 bag @ 1 MG/HR 2 mls/hr IV .Q24H [facility] Rx#:[id number] fentaNYL (PF) 2,500 mcg 351.081 248.884 In Sodium Chloride 0.9% 200 ml @ 0.5 MCG/KG/HR 4. 082 mls/hr IV .Q24H [facility] Rx#:[id number] propofoL 1,000 mg In 595.623 531.478 Empty Bag 1 bag @ Titrate IV .Q0M [facility] Rx#: [id number] Tube Feeding 140 60 0 Other 100 30 Output: Urine 3577 129 4132 Stool 1 Other: Voiding Method Indwelling Catheter Indwelling Catheter Indwelling Catheter # Bowel Movements 1 ABP, PAP, CO, CI - Last Documented Arterial Blood Pressure 129/73 - Exam GENERAL DESCRIPTION: Middle-age male intubated on the vent RESPIRATORY SYSTEM: Unlabored breathing , decreased breath sounds at bases HEART: S1 S2 regular rate and rhythm ,no loud murmurs ABDOMEN: Soft , no tenderness EXTREMITIES: No edema feet - Labs CBC & Chem 7: 11/18/21 03:35 11/18/21 03:35 Labs: Abnormal Lab Results - Last 24 Hours (Table) 11/17/21 11/17/21 11/17/21 Range/Units 15:44 19:55 23:54 WBC (3.8-10.6) k/uL RBC (4.30-5.90) m/uL Hgb (13.0-17.5) gm/dL Hct (39.0-53.0) % MCV (80.0-100.0) fL Neutrophils # (1.3-7.7) k/uL Lymphocytes # (1.0-4.8) k/uL ABG pH (7.35-7.45) ABG pCO2 (35-45) mmHg ABG pO2 (83-108) mmHg ABG HCO3 (21-25) mmol/L ABG Total CO2 (19-24) mmol/L ABG O2 Saturation (94-97) % Sodium (137-145) mmol/L BUN (9-20) mg/dL Creatinine (0.66-1.25) mg/dL Glucose (74-99) mg/dL POC Glucose (mg/dL) 168 H 112 H 134 H (75-99) mg/dL Calcium (8.4-10.2) mg/dL Total Bilirubin (0.2-1.3) mg/dL AST (17-59) U/L ALT (4-49) U/L Total Protein (6.3-8.2) g/dL Albumin (3.5-5.0) g/dL 11/18/21 11/18/21 11/18/21 Range/Units 00:55 03:27 03:35 WBC 14.9 H (3.8-10.6) k/uL RBC 3.20 L (4.30-5.90) m/uL Hgb 10.7 L (13.0-17.5) gm/dL Hct 33.1 L (39.0-53.0) % MCV 103.3 H (80.0-100.0) fL Neutrophils # 12.9 H (1.3-7.7) k/uL Lymphocytes # 0.7 L (1.0-4.8) k/uL ABG pH 7.29 L (7.35-7.45) ABG pCO2 72 H* (35-45) mmHg ABG pO2 60 L (83-108) mmHg ABG HCO3 35 H (21-25) mmol/L ABG Total CO2 37 H (19-24) mmol/L ABG O2 Saturation 85.6 L (94-97) % Sodium (137-145) mmol/L BUN (9-20) mg/dL Creatinine (0.66-1.25) mg/dL Glucose (74-99) mg/dL POC Glucose (mg/dL) 234 H (75-99) mg/dL Calcium (8.4-10.2) mg/dL Total Bilirubin (0.2-1.3) mg/dL AST (17-59) U/L ALT (4-49) U/L Total Protein (6.3-8.2) g/dL Albumin (3.5-5.0) g/dL 11/18/21 11/18/21 11/18/21 Range/Units 03:35 05:48 08:20 WBC (3.8-10.6) k/uL RBC (4.30-5.90) m/uL Hgb (13.0-17.5) gm/dL Hct (39.0-53.0) % MCV (80.0-100.0) fL Neutrophils # (1.3-7.7) k/uL Lymphocytes # (1.0-4.8) k/uL ABG pH (7.35-7.45) ABG pCO2 57 H (35-45) mmHg ABG pO2 234 H (83-108) mmHg ABG HCO3 33 H (21-25) mmol/L ABG Total CO2 35 H (19-24) mmol/L ABG O2 Saturation 100.0 H (94-97) % Sodium 135 L (137-145) mmol/L BUN 21 H (9-20) mg/dL Creatinine 0.49 L (0.66-1.25) mg/dL Glucose 218 H (74-99) mg/dL POC Glucose (mg/dL) 141 H (75-99) mg/dL Calcium 8.2 L (8.4-10.2) mg/dL Total Bilirubin 1.8 H (0.2-1.3) mg/dL AST 92 H (17-59) U/L ALT 138 H (4-49) U/L Total Protein 6.1 L (6.3-8.2) g/dL Albumin 3.0 L (3.5-5.0) g/dL 11/18/21 Range/Units 11:27 WBC (3.8-10.6) k/uL RBC (4.30-5.90) m/uL Hgb (13.0-17.5) gm/dL Hct (39.0-53.0) % MCV (80.0-100.0) fL Neutrophils # (1.3-7.7) k/uL Lymphocytes # (1.0-4.8) k/uL ABG pH (7.35-7.45) ABG pCO2 (35-45) mmHg ABG pO2 (83-108) mmHg ABG HCO3 (21-25) mmol/L ABG Total CO2 (19-24) mmol/L ABG O2 Saturation (94-97) % Sodium (137-145) mmol/L BUN (9-20) mg/dL Creatinine (0.66-1.25) mg/dL Glucose (74-99) mg/dL POC Glucose (mg/dL) 129 H (75-99) mg/dL Calcium (8.4-10.2) mg/dL Total Bilirubin (0.2-1.3) mg/dL AST (17-59) U/L ALT (4-49) U/L Total Protein (6.3-8.2) g/dL Albumin (3.5-5.0) g/dL Assessment and Plan Assessment: 1-Patient with rash likely related to Zosyn which has been discontinued rash has resolved. 2patient with a component of MSSA pneumonia has received more than 2 weeks of IV antibiotic therapy cefepime discontinued we will monitor the patient closely off antibiotic. 3elevated white count question of possible oropharyngeal candidiasis patient will be started on Eraxis White count is trending down
[2021-11-18 23:20] LABS: Glucose,Whole Blood 120 mg/dL (75-99)
[2021-11-19] MEDS: CLEVIDIPINE BUTYRATE 25 MG in EMPTY BAG 1 BAG IV SCH ×7 (02:10→20:07)
[2021-11-19] MEDS: hydrALAZINE HCL 20 MG/ML 1 ML VIAL IVP PRN (02:30)
--- NOTE | 2021-11-19 03:27 | XR ---
EXAMINATION TYPE: XR chest 1V portable DATE OF EXAM: 11/19/2021 COMPARISON: Yesterday HISTORY: Single view TECHNIQUE: FINDINGS: There is pulmonary interstitial edema. There are chest leads. The endotracheal tube is 4 cm from the dennis. Heart size is fairly normal. There is a left subclavian catheter with tip in the superior vena cava. IMPRESSION: There is pulmonary interstitial edema without change compared to yesterday.
[2021-11-19 03:30] LABS: Basophils # (A) 0.1 k/uL (0-0.2); Basophils % (A) 0 %; Eosinophils # (A) 0.1 k/uL (0-0.7); Eosinophils % (A) 1 %; HCT 33.8 % (39.0-53.0); HGB 10.8 gm/dL (13.0-17.5); Hypochromasia Moderate; Lymphocytes # (A) 1.1 k/uL (1.0-4.8); Lymphocytes % (A) 10 %; MCH 32.9 pg (25.0-35.0); MCHC 32.1 g/dL (31.0-37.0); MCV 102.4 fL (80.0-100.0); Macrocytosis Slight; Mean Platelet Volume 7.8; Monocytes # (A) 0.6 k/uL (0-1.0); Monocytes % (A) 5 %; Neutrophils # (A) 9.2 k/uL (1.3-7.7); Neutrophils % (A) 82 %; Platelet Count 319 k/uL (150-450); RDW 15.9 % (11.5-15.5); WBC 11.3 k/uL (3.8-10.6)
[2021-11-19] MEDS: ARTIFICIAL TEARS-HYPROMELLOSE DROPS 15 ML BTL BOTH EYES SCH ×5 (03:50→20:06)
[2021-11-19 04:09] LABS: ALT 120 U/L (4-49); AST 50 U/L (17-59); African American GFR (CKD) >90 (>60 ml/min/1.73 sqM); Albumin 3.1 g/dL (3.5-5.0); Alkaline Phosphatase 96 U/L (38-126); Anion Gap 7 mmol/L; Blood Urea Nitrogen 19 mg/dL (9-20); Calcium 8.3 mg/dL (8.4-10.2); Carbon Dioxide 30 mmol/L (22-30); Chloride 99 mmol/L (98-107); Glucose 186 mg/dL (74-99); Non-African American GFR(CKD) >90 (>60 ml/min/1.73 sqM); Potassium 3.8 mmol/L (3.5-5.1); Sodium 136 mmol/L (137-145); Total Bilirubin 1.5 mg/dL (0.2-1.3); Total Protein 6.4 g/dL (6.3-8.2)
[2021-11-19] MEDS ORDERED: POTASSIUM BICARBONATE/CIT AC 20 MEQ TABLET.EFF NG-TUBE SCH (05:00)
[2021-11-19] MEDS: fentaNYL (PF) 2,500 MCG in SODIUM CHLORIDE 0.9% 200 ML IV SCH ×3 (05:09→17:41)
[2021-11-19 05:15] LABS: Glucose,Whole Blood 173 mg/dL (75-99)
[2021-11-19] MEDS: INSULIN ASPART (NovoLOG) 100 UNIT/ML VIAL SQ SCH ×3 (05:16→17:29)
[2021-11-19 05:57] LABS: ABG Base Excess 9.5 mmol/L; ABG HCO3 34 mmol/L (21-25); ABG Oxygen Saturation 97.7 % (94-97); ABG PCO2 48 mmHg (35-45); ABG PH 7.45 (7.35-7.45); ABG PO2 109 mmHg (83-108); ABG TCO2 35 mmol/L (19-24); Allen Test Performed? Yes
[2021-11-19] MEDS: PANTOPRAZOLE 40 MG/10 ML VIAL IVP SCH (07:47)
[2021-11-19] MEDS: ASCORBIC ACID 500 MG TAB PO SCH (07:48)
[2021-11-19] MEDS: ZINC SULFATE 220 MG CAP PO SCH (07:48)
[2021-11-19] MEDS: PREGABALIN 100 MG CAP PO SCH ×2 (07:48→22:14)
[2021-11-19] MEDS: FUROSEMIDE 10 MG/ML 4 ML VIAL IV SCH (07:48)
[2021-11-19] MEDS: CHLORHEXIDINE GLUCONATE 15 ML CUP MUCOUS MEM SCH ×2 (07:48→20:44)
[2021-11-19] MEDS: CHOLECALCIFEROL 25 MCG (1000 IU) TABLET PO SCH (07:48)
[2021-11-19] MEDS: DEXAMETHASONE SOD PHOSPHATE 10 MG/ML 1 ML VIAL IVP SCH ×2 (07:48→22:14)
[2021-11-19] MEDS: SERTRALINE 50 MG TAB PO SCH (07:48)
[2021-11-19] MEDS: DOCUSATE ORAL SOLN 100 MG/10 ML CUP PO SCH ×2 (07:50→20:06)
[2021-11-19] MEDS: ENOXAPARIN 80 MG/0.8 ML SYRINGE SQ SCH ×2 (07:50→22:16)
[2021-11-19] MEDS: LACTULOSE 20 GM/30 ML CUP PO SCH ×2 (07:50→20:06)
[2021-11-19] MEDS: bisacodyL 10 MG SUPP RECTAL SCH ×2 (07:50→20:06)
[2021-11-19] MEDS: METOPROLOL TARTRATE 50 MG TAB PO SCH (08:12)
[2021-11-19] MEDS ORDERED: ROCURONIUM 10 MG/ML (5 ML VIAL) IV ONE (09:45)
[2021-11-19] MEDS ORDERED: PROPOFOL 10 MG/ML 20 ML VIAL IV ONE (09:45)
[2021-11-19] MEDS ORDERED: fentaNYL (PF) 50 MCG/ML 2 ML AMP ONE (09:45)
[2021-11-19 09:52] LABS: Glucose,Whole Blood 141 mg/dL (75-99)
--- NOTE | 2021-11-19 11:29 | XR ---
EXAMINATION TYPE: XR chest 1V DATE OF EXAM: 11/19/2021 COMPARISON: Chest x-ray 11/19/2021 at earlier time HISTORY: Tracheostomy tube placement TECHNIQUE: Single frontal view of the chest is obtained. FINDINGS: Tracheostomy tube is been placed in the interval, endotracheal tube is been removed. Trach eostomy tube is overlying the tracheal air column. There is a left-sided subclavian central venous ca theter as on prior with the distal tip overlying superior vena cava. Bilateral airspace disease is pr esent. Surgical clips are present over the right neck. Cardiac mediastinal silhouette is stable. No e vident pneumothorax or pleural effusion. There are overlying artifacts. IMPRESSION: No evident complication status post tracheostomy tube placement.
[2021-11-19 11:42] LABS: Glucose,Whole Blood 153 mg/dL (75-99)
[2021-11-19] MEDS: ANIDULAFUNGIN 100 MG in SODIUM CHLORIDE 0.9% 100 ML IVPB SCH (11:51)
--- NOTE | 2021-11-19 13:30 | P.PN ---
Subjective Progress Note Date: 11/19/21 Principal diagnosis: Acute hypoxic respiratory failure secondary to COVID-19 pneumonia complicated with pulmonary embolism 11/15/2021, the patient has not shown any active bleeding from his tracheostomy site. As mentioned yesterday, the tube has been removed and the patient is currently intubated again. The wound over the neck is dry clean and intact. The patient is on no anticoagulation. Vascular surgery consultation was placed for possibly insertion of a IVC filter. Meanwhile, the patient remains sedated and paralyzed. This morning, he is on propofol running at 70 mcg/kg per minute. He is also on fentanyl at 3 mcg/kg/h Nimbex is running at 3 mcg/kg per minute. The patient is on a mechanical ventilator. This morning, he is on a rate of 22, tidal volume of 400, FiO2 of 70% with a PEEP of 10. His peak airway pressures around 37. He is returning his volume is without any major difficulties. No significant bloody secretions from his orotracheal tube. Breath sounds are equal and symmetrical bilaterally. Chest x-ray showed a stable right apical pneumothorax. There is still diffuse breath and pulmonary infiltrates consistent with overnight he related pneumonia which remains unchanged compared to yesterday. In terms of therapy, the patient is off anticoagulation. Note that the patient had pulmonary embolism at a time of his original presentation b [facility] in 10/26/2021. The patient remains on Decadron 6 mg IV every 24 hours. He is on empiric antibiotic coverage with IV Zosyn knowing that his sputum is shown Streptococcus initially and later on MSSA. He is on no pressors. He is hypertensive. He is on a chiropractor for blood pressure control which is running at 20 mL milligrams an hour. Note that his enteral feeding was stopped briefly yesterday due to the events and possibility of some questionable GI bleed. This morning, there is no active bleeding from his PEG tube and diffuse disease will be restarted. White cell count of 16.7. Hemoglobin stable at 7.9. Platelet count is at 325. Blood gas show a pH of 7.3 with a pCO2 of 68 and pO2 of 76. Rest of the blood work is stable. The abdomen is at 14 with a creatinine of 0.35. Inflammatory markers last checked was on 11/14/2021 and his LDH level was down to 949 and the CRP level was at 5.8. Reevaluated today on 11/16/2021, patient remains in the ICU, intubated and mechanically ventilated. Patient has been intubated since 10/30, patient had a tracheostomy and PEG tube placement. Patient is presently on assist control rate of 22, volume is 400 FiO2 50% and PEEP of 8. ABG showed a pO2 of 73 pCO2 54 pH of 7.43. Peak airway pressure is 31 plateau pressure is 26. A shunt is on fentanyl at 2 mcg/kg/h, he is on propofol at 60 mcg/kg/m, patient is not requiring any paralytics, and today I kept the PEEP at 8, no changes were made in his ventilator settings. Patient is on Decadron 6 mg IV push daily, he is also on enteral feeding vital HPF 10 mL per hour. Vascular surgery was consulted, and I'm strongly recommending a placement of IVC filter, however vascular surgery seems to be reluctant to place IVC filter, patient has absolute contraindication to anticoagulation therapy at this point, and the only recommendation at this point would be to place IVC filter for prevention of further clotting that may come from lower extremities although his venous Doppler is negative at this point. Again patient cannot be placed back on anticoagulation therapy considering the severity of the bleeding he had from the tracheostomy site, requiring removal of tracheostomy and the intubation. Again I have no plans to start this patient on anticoagulation therapy after hearing this story about his significant bleeding from the tracheostomy site. And again the patient has absolute contraindication to anticoagulation therapy. Try to get another vascular surgery consult, however the vascular surgeon I consulted is not available and he is not director of solutions [employer]. WBC count is 7 today hemoglobin is 8.1. ABG as noted earlier. Metabolic profile is normal Reevaluated today on 11/17/2021, patient remains in the ICU, intubated, mechanically ventilated, sedated and paralyzed. Patient had a worsening clinical course yesterday, he developed significant erythema on his abdominal wall, and he developed erythema on his left shoulder, and seems to be involving to some extent his lower extremities with a bit of mottling, according to the nurse this happened shortly after Zosyn infusion. Hence Zosyn was discontinued, although he has been on Zosyn for quite some time, and I transitioned Zosyn to cefepime today. Patient was given 1 dose of hydrocortisone, and today I increased his Decadron 6 mg IV push twice a day. Patient required going back on Nimbex and is on Nimbex at 3 mcg/kg/m because he was tachypneic, he was not synchronous with the ventilator, and he was desaturating. Chest x-ray is basically about the same. Blood pressure was significantly high yesterday, and we had to place him back on clevidipine at 15 mg per hour. Patient is now on propofol at 70 fentanyl 50 mcg/kg/h, Nimbex and clevidipine. His ventilator settings are assist control rate of 22, I'll volume is 400, FiO2 up to 60%, PEEP up to 10. His peak airway pressure is 37, plateau pressure is 53 consistent with ARDS. Patient is supposed to have repeat or revision tracheostomy tomorrow, and this will be done by general surgery. Vascular surgery is extremely reluctant to place a filter in this patient/IVC filter, hence I will restart the patient on Lovenox at 80 mg subcu twice a day, because I believe the patient is a great set up for more thromboembolic disease and pulmonary embolism . As a matter of fact considering his worsening oxygenation over the last 24 hours may already be secondary to worsening thromboembolic disease/pulmonary embolism, and at this point I will restart the patient on Lovenox at a lower dose than he had previously, this will be 80 mg subcu twice a day. We'll hold the dose in the morning of the patient is going for revision of tracheostomy. Obviously the patient is not in any shape to be weaned or extubated anytime soon. Patient remains on enteral feeding via PEG tube which was placed previously. He is receiving vital HPF 10 mL per hour. Reevaluated today on 11/18/2021, around 1 AM this morning, I was notified about this patient doing poorly, desaturating down to the 70s, and chest x-ray showed complete opacification of the left lung with trachea shifting to the ipsilateral side, basically consistent with endobronchial mucous plugging. Hence I came in within 20 minutes, and perform bronchoscopy on this patient, I was able to suction old blood clots from the mainstem bronchus from the left lower lobe bronchus lingula bronchus and left upper lobe bronchus as well as right upper lobe bronchus and right middle lobe bronchus. Follow-up chest x-ray post operatively showed significant improvement in the aeration of the left lung, patient had to be placed on higher FiO2 and high PEEP and had to be sedated, repeat ABG this morning on 80% showed a pO2 of 234 pCO2 57 pH of 7.38. Hence his ventilator settings were readjusted, he is now on 50% FiO2, assist control rate of 30 tidal volume of 350 and the PEEP was cut down to 12. I plan to cut it down further. Patient is on propofol at 60 mcg/kg/m fentanyl at 3 mcg/kg/h and he is also on Nimbex at 3 mcg/kg/m. I am planning to stop Nimbex today. I am cutting his PEEP down to 12, and patient is on tube feeding. Lovenox is presently on hold as the patient may undergo tracheostomy revision again today by Dr. Love. His peak airway pressure today is 28th plateau pressure is 26 which seems to be encouraging, patient is not developing ARDS at least at this point. Patient remains on COVID-19 cocktail, remains on antibiotics, and Eraxis was added by infectious disease on the case. Patient also remains on cefepime. Chest x-ray this morning continues to show significant improvement in the left lung opacification, he has stable bilateral infiltrates secondary to COVID-19 p neumonia. Reevaluated today on 11/19/21, patient underwent tracheostomy early this morning, actually it was a revision of all tracheostomy. Came back to the ICU, he is now on assist control rate of 30, tidal volume 350 FiO2 was initially 50%, however I noted the patient was desaturating down to the high 80s, and I recommended that we increase his FiO2 up to 70% and would be re-titrated again based on the ultrasound showing. Apparently the patient just came back from tracheostomy. PEEP remains was at 10, and I increased the PEEP up to 12. His peak airway pressure is 38 his plateau pressure is 29. Patient remains off Nimbex, he is now on fentanyl at 3 mcg/kg/h he is also on propofol at 60 mcg/kg/m. Patient is requiring clevidipine 12 mg per hour. Electrolytes are normal. ABG as noted above. CBC count is 11.3 hemoglobin is 10.8. Patient remains on Eraxis, completed a full course of cefepime. Remains on Decadron 6 mg IV push twice a day, remains on Lasix 40 mg IV push daily, will be restarted back on Lovenox at 80 mg subcu twice a day. This will continue unless the patient develops any further bleeding patient is being treated for pulmonary embolism. Objective - Vital Signs Vital signs: Vital Signs Temp 99.2 F 11/19/21 04:00 Pulse 79 11/19/21 09:00 Resp 31 H 11/19/21 09:00 BP 166/77 11/19/21 10:00 Pulse Ox 97 11/19/21 09:00 Intake & Output 11/18/21 11/19/21 11/19/21 18:59 06:59 18:59 Intake Total 7508.017 8384.382 457.155 Output Total 9566 129 3904 Balance -562.556 442.382 -1547.845 Weight 130.4 kg 131.3 kg Intake: IV 299 253 115 0.9 Normal Saline @ 20 mL 260 220 100 /hr KVO Pressure bag 39 33 15 Intake, IV Titration 788.444 914.382 342.155 Amount Cefepime 2 gm In Sodium 100 Chloride 0.9% 100 ml @ 25 mls/hr IVPB Q12HR [facility] Rx #:[id number] Cisatracurium 200 mg In 308.82 34.2 Sodium Chloride 0.9% 180 ml @ 1.5 MCG/KG/MIN 10.8 mls/hr IV .[id number] [facility] Rx #:[id number] Clevidipine Butyrate 25 135.334 117.633 mg In Empty Bag 1 bag @ 1 MG/HR 2 mls/hr IV .Q24H [facility] Rx#:[id number] fentaNYL (PF) 2,500 mcg 179.624 250.000 162.205 In Sodium Chloride 0.9% 200 ml @ 0.5 MCG/KG/HR 4. 082 mls/hr IV .Q24H [facility] Rx#:[id number] propofoL 1,000 mg In 200 494.848 62.317 Empty Bag 1 bag @ Titrate IV .Q0M [facility] Rx#: [id number] Tube Feeding 40 60 0 Other 30 30 Output: Urine 2117 587 4057 Estimated Blood Loss 5 Other: Voiding Method Indwelling Catheter Indwelling Catheter ABP, PAP, CO, CI - Last Documented Arterial Blood Pressure 157/67 - Exam GENERAL EXAM: Revealed 61-year-old white male intubated, mechanically ventilated, sedated, but not paralyzed, not in distress. HEAD: Normocephalic. Atraumatic, tracheostomy which is new seems to be intact. EYES: Normal reaction of pupils, equal size. NOSE: Clear with pink turbinates. THROAT: No erythema or exudates NECK: No masses, no JVD. CHEST: No chest wall deformity. LUNGS: Diminished breath sounds at the bases. crackles at the base. CVS: S1 and S2 normal with no audible murmur, regular rhythm. ABDOMEN: No hepatosplenomegaly, normal bowel sounds, no guarding or rigidity. PEG tube is intact. Skin: No rashes. CENTRAL NERVOUS SYSTEM: Could not assess patient is sedated but ,just came back from the operating room status post tracheostomy revision. EXTREMITIES: No clubbing edema or cyanosis. Patient has cold feet bilaterally but has palpable pulses bilaterally. - Labs CBC & Chem 7: 11/19/21 03:00 11/19/21 03:00 Labs: Abnormal Lab Results - Last 24 Hours (Table) 11/18/21 11/18/21 11/19/21 Range/Units 16:57 23:19 03:00 WBC 11.3 H (3.8-10.6) k/uL RBC 3.30 L (4.30-5.90) m/uL Hgb 10.8 L (13.0-17.5) gm/dL Hct 33.8 L (39.0-53.0) % MCV 102.4 H (80.0-100.0) fL RDW 15.9 H (11.5-15.5) % Neutrophils # 9.2 H (1.3-7.7) k/uL ABG pCO2 (35-45) mmHg ABG pO2 (83-108) mmHg ABG HCO3 (21-25) mmol/L ABG Total CO2 (19-24) mmol/L ABG O2 Saturation (94-97) % Sodium (137-145) mmol/L Creatinine (0.66-1.25) mg/dL Glucose (74-99) mg/dL POC Glucose (mg/dL) 136 H 120 H (75-99) mg/dL Calcium (8.4-10.2) mg/dL Total Bilirubin (0.2-1.3) mg/dL ALT (4-49) U/L Albumin (3.5-5.0) g/dL 11/19/21 11/19/21 11/19/21 Range/Units 03:00 05:13 05:53 WBC (3.8-10.6) k/uL RBC (4.30-5.90) m/uL Hgb (13.0-17.5) gm/dL Hct (39.0-53.0) % MCV (80.0-100.0) fL RDW (11.5-15.5) % Neutrophils # (1.3-7.7) k/uL ABG pCO2 48 H (35-45) mmHg ABG pO2 109 H (83-108) mmHg ABG HCO3 34 H (21-25) mmol/L ABG Total CO2 35 H (19-24) mmol/L ABG O2 Saturation 97.7 H (94-97) % Sodium 136 L (137-145) mmol/L Creatinine 0.40 L (0.66-1.25) mg/dL Glucose 186 H (74-99) mg/dL POC Glucose (mg/dL) 173 H (75-99) mg/dL Calcium 8.3 L (8.4-10.2) mg/dL Total Bilirubin 1.5 H (0.2-1.3) mg/dL ALT 120 H (4-49) U/L Albumin 3.1 L (3.5-5.0) g/dL 11/19/21 11/19/21 Range/Units 08:13 11:41 WBC (3.8-10.6) k/uL RBC (4.30-5.90) m/uL Hgb (13.0-17.5) gm/dL Hct (39.0-53.0) % MCV (80.0-100.0) fL RDW (11.5-15.5) % Neutrophils # (1.3-7.7) k/uL ABG pCO2 (35-45) mmHg ABG pO2 (83-108) mmHg ABG HCO3 (21-25) mmol/L ABG Total CO2 (19-24) mmol/L ABG O2 Saturation (94-97) % Sodium (137-145) mmol/L Creatinine (0.66-1.25) mg/dL Glucose (74-99) mg/dL POC Glucose (mg/dL) 141 H 153 H (75-99) mg/dL Calcium (8.4-10.2) mg/dL Total Bilirubin (0.2-1.3) mg/dL ALT (4-49) U/L Albumin (3.5-5.0) g/dL Microbiology - Last 24 Hours (Table) 11/17/21 15:15 Blood Culture - Preliminary Blood No Growth after 24 hours 11/17/21 15:35 Blood Culture - Preliminary Blood No Growth after 24 hours Assessment and Plan Assessment: Impression: Acute hypoxic respiratory failure secondary to COVID-19 pneumonia and secondary to acute pulmonary embolism which is a complication related to COVID-19 infection. Patient is not vaccinated. Patient was intubated on 10/30, underw ent tracheostomy on 11/10, however he developed significant bleeding from the tracheostomy site/his stoma and he required reintubation with endotracheal tube, today the patient underwent revision of tracheostomy, so far so good. Patient just came back from the operating room. Acute bilateral pulmonary embolism, patient is back on Lovenox 80 mg subcu twice a day, so far no further bleeding. No bleeding from the nose and no bleeding from tracheostomy. Will restart Lovenox later on tonight. Type 2 diabetes with diabetic neuropathy History of obstructive sleep apnea and previous UPPP History of right eye melanoma Previous history of CVA History of rheumatoid arthritis and gout Previous history of MRSA infection in the back. Elevated inflammatory markers Pneumomediastinum and subcutaneous emphysema at the complication of COVID-19 pneumonia, resolved. Tiny right apical pneumothorax, resolved. Hypertension Dyslipidemia Left lung collapse secondary to mucus plugging and all the blood clots requiring therapeutic bronchoscopy, lavage of the left lung, extraction of blood clots from the left mainstem bronchus, left upper lobe bronchus, lingula, left lower lobe bronchus, right upper lobe bronchus, and right middle lobe bronchus. With complete reexpansion of the left lung post, this was done on 11/18/2021. Recommendation: Continue ventilatory support, had to increase his FiO2 to 70%, PEEP is at 12, we will continue to titrate oxygen accordingly. Continue Decadron. 6 mg twice a day. Continue Eraxis , completed full course of cefepime. Continue insulin and monitor sugars closely. Back on Lovenox 80 mg subcu twice a day in the next 8 hours. Patient had fresh revision of tracheostomy today. Continue to monitor closely for any form of bleeding while the patient is on Lovenox. Continue nutritional support/enteral feeding Continue COVID-19 cocktail. Patient remains critically ill, and prognosis is guarded. critical care time is over 30 minutes Time with Patient: Greater than 30
--- NOTE | 2021-11-19 14:44 | P.PN ---
Progress Note - Text Progress Note Date: 11/19/21 Chief Complaint: Short of breath This is a pleasant 61-year-old patient, chronic stable medical conditions include diabetes, hypertension, hyperlipidemia, osteoarthritis, peripheral neuropathy, chronic gout. Patient presents with increasing shortness of breath. Cough. Clear sputum. Fever and chills. Tired rundown decrease appetite and diarrhea about 2 times a day. Patient tested positive for COVID-19 on October 09. His initial rapid COVID-19 was negative. In the send out came back positive. Patient did not take the vaccine against COVID-19. He is on 8 L of oxygen this morning. He is outside the window for Remdesivir. Admitted with COVID 19 pneumonitis, acute hypoxic respiratory failure. Started on Decadron. IV fluids. October 26 chest CTA showed bilateral pulmonary embolism. Breathing cord worse in October 30 patient is intubated. Requiring various drips. 2 feeding was started. November 10 patient got a tracheostomy and a PEG tube. Patient subsequently had a large bleed from the tracheostomy site. Desaturated. Tracheostomy had to be removed. Bedside bronchoscopy was done. Large blood loss was removed. Was put back on the ventilator/intubated. Required FFP. November 14: ICU. Patient had no bleeding around the tracheostomy site. Patient had desaturated. Tracheostomy had to be removed. The clean room assembler, surgeon, anesthesia@tibia the bedside. Bronchoscopy was done. Blood was removed from the trachea and the bronchus. Patient put back on the ventilator. Currently 50/10. Drips include fentanyl, propofol, cleviprex. Given FFP. Review of systems: Intubated. Anticoagulation obviously has been discontinued. younger daughter the bedside. Updated. November 15: ICU. Ventilator: 60/90. Drips included propofol and fentanyl. Telemetry: Sinus rhythm. 2 feeding at 10 mL an hour. Another daughter the bedside. November 16: ICU. 2 feeding at 10 mL an hour. Ventilator: 50/8. Drips include propranolol, factor. Since patient cannot be anticoagulated at the present time. [place] filter being ordered. November 17: ICU. Ventilator: FiO2 50 and a PEEP of 10. 2 feeding at 10 mL an hour. Drips include fentanyl, propofol, Nimbex. Telemetry shows sinus rhythm. Patient seen by Dr. Larsen from vascular.: Recommended No IVC filter. Following revision of tracheostomy to resume adequate ventilation. Patient going in tomorrow for revision of tracheostomy by Dr. Love. November 18: ICU. Ventilator: 50/12. Current drips include fentanyl, propofol, Nimbex. Tracheostomy rescheduled for tomorrow. 2 feeding to be held after midnight. Hold Lovenox. November 19: ICU. Patient had tracheostomy revision done today. Ventricular: FiO2 70 PEEP of 12. Drips include fentanyl, propofol, cleviprex. Does occasionally open his eyes. Feeding is due to be restarted today. IV anidulafungin admitted because of Bibi in the sputum Review of systems: Patient intubated Active Medications Acetaminophen (Acetaminophen Tab 325 Mg Tab) 650 mg PO Q6HR PRN PRN Reason: Mild Pain or Fever > 100.5 Last Admin: 10/29/21 15:46 Dose: 650 mg Documented by: Albuterol Sulfate (Albuterol Hfa Inhaler) 2 puff INHALATION RT-QID PRN PRN Reason: Shortness Of Breath Last Admin: 11/14/21 20:22 Dose: 2 puff Documented by: Artificial Tears (Artificial Tears-Hypromellose Drops 15 Ml Btl) 2 drops BOTH EYES Q4HR [facility] Last Admin: 11/19/21 11:50 Dose: 2 drops Documented by: Ascorbic Acid (Ascorbic Acid 500 Mg Tab) 1,000 mg PO DAILY [facility] Last Admin: 11/19/21 07:48 Dose: 1,000 mg Documented by: Bisacodyl (Bisacodyl 10 Mg Supp) 10 mg RECTAL BID [facility] Last Admin: 11/19/21 07:50 Dose: Not Given Documented by: Chlorhexidine Gluconate (Chlorhexidine Gluconate 15 Ml Cup) 15 ml MUCOUS MEM BID [facility] Last Admin: 11/19/21 07:48 Dose: 15 ml Documented by: Cholecalciferol (Cholecalciferol 25 Mcg (1000 Iu) Tablet) 25 mcg PO DAILY [facility] Last Admin: 11/19/21 07:48 Dose: 25 mcg Documented by: Dexamethasone Sodium Phosphate (Dexamethasone Sod Phosphate 10 Mg/Ml 1 Ml Vial) 6 mg IVP BID [facility] Last Admin: 11/19/21 07:48 Dose: 6 mg Documented by: Docusate Sodium (Docusate Oral Soln 100 Mg/10 Ml Cup) 100 mg PO BID [facility] Last Admin: 11/19/21 07:50 Dose: Not Given Documented by: Enoxaparin Sodium (Enoxaparin 80 Mg/0.8 Ml Syringe) 80 mg SQ Q12HR [facility] Last Admin: 11/19/21 07:50 Dose: Not Given Documented by: Furosemide (Furosemide 10 Mg/Ml 4 Ml Vial) 40 mg IV DAILY [facility] Last Admin: 11/19/21 07:48 Dose: 40 mg Documented by: Hydralazine HCl (Hydralazine Hcl 20 Mg/Ml 1 Ml Vial) 20 mg IVP Q4HR PRN PRN Reason: Blood Pressure - High SBP >160 Last Admin: 11/19/21 02:30 Dose: 20 mg Documented by: Propofol 1,000 mg/ IV Solution 100 mls @ 0 mls/hr IV .Q0M [facility]; Protocol Last Admin: 11/19/21 07:47 Dose: 60 mcg/kg/min, 47.268 mls/hr Documented by: Cisatracurium Besylate 200 mg/ (Sodium Chloride) 200 mls @ 10.8 mls/hr IV .[id number] [facility]; Protocol Last Titration: 11/18/21 19:45 Dose: 0 mcg/kg/min, 0 mls/hr Documented by: Fentanyl Citrate 2,500 mcg/ (Sodium Chloride) 250 mls @ 4.082 mls/hr IV .Q24H [facility]; Protocol Last Admin: 11/19/21 11:49 Dose: 3 mcg/kg/hr, 24.494 mls/hr Documented by: Clevidipine 25 mg/ IV Solution 50 mls @ 2 mls/hr IV .Q24H [facility]; Protocol Last Titration: 11/19/21 13:02 Dose: 13 mg/hr, 26 mls/hr Documented by: Anidulafungin 100 mg/ Sodium (Chloride) 100 mls @ 84 mls/hr IVPB DAILY@1200 [facility] Last Admin: 11/19/21 11:51 Dose: 84 mls/hr Documented by: Insulin Aspart (Insulin Aspart (Novolog) 100 Unit/Ml Vial) 0 unit SQ Q6HR [facility]; Protocol Last Admin: 11/19/21 11:50 Dose: 2 unit Documented by: Insulin Detemir (Insulin Detemir (Levemir) 100 Unit/Ml Syr) 24 unit SQ HS [facility] Last Admin: 11/18/21 20:35 Dose: 24 unit Documented by: Lactulose (Lactulose 20 Gm/30 Ml Cup) 10 gm PO BID [facility] Last Admin: 11/19/21 07:50 Dose: Not Given Documented by: Metoprolol Tartrate (Metoprolol Tartrate 50 Mg Tab) 50 mg PO BID [facility] Last Admin: 11/19/21 08:12 Dose: 50 mg Documented by: Miscellaneous Information (Potassium Replacement Protocol 1 Each Misc) 1 each MISCELLANE DAILY PRN; Protocol PRN Reason: Per Protocol Pantoprazole Sodium (Pantoprazole 40 Mg/10 Ml Vial) 40 mg IVP DAILY [facility] Last Admin: 11/19/21 07:47 Dose: 40 mg Documented by: Pregabalin (Pregabalin 100 Mg Cap) 200 mg PO BID [facility] Last Admin: 11/19/21 07:48 Dose: 200 mg Documented by: Sertraline HCl (Sertraline 50 Mg Tab) 50 mg PO DAILY [facility] Last Admin: 11/19/21 07:48 Dose: 50 mg Documented by: Zinc Sulfate (Zinc Sulfate 220 Mg Cap) 220 mg PO DAILY [facility] Last Admin: 11/19/21 07:48 Dose: 220 mg Documented by: Social history: Patient is on Social Security. Does not smoke or drink alcohol. Patient's daughters family lives with him. Family history: Father at the age of 40 with heart attack Physical examination: VITAL SIGNS: 98.9, 95, 30, 1 58 x 88, 100% on the ventilator GENERAL: Laying in bed, . PEG tube . Tracheostomy tube. LUNGS: Respiratory rate increased,. PSYCH: Unable to assess Rest of the exam per nursing and pulmonary INVESTIGATIONS, reviewed in the clinical context: November 19: White count 9.3 hemoglobin 10.8 potassium 3.8 creatinine 0.4 November 18: White count 14.9 hemoglobin 10.7 potassium 4.2 creatinine 0.49 Blood culture positive for Staphylococcus epidermidis/coagulates negative. Sputum culture: MSSA, Bibi albicans November 17: White count 16.9 hemoglobin 11.1 potassium 3.3 creatinine 0.4 November 16: White count 17 hemoglobin 8.1 potassium 3.2 creatinine 0.5 to October 28: D-dimer 13.4 to October 26: D-dimer 8.48 CRP 24 Chest CTA [October 26: biLateral pulmonary embolism Doppler ultrasound lower extremity: Negative for DVT October 24: White count 9.7 hemoglobin 15.3 platelets 221 d-dimer 1.93 progression 4.2 creatinine 0.71 CRP 5.5 pro-calcitonin 0.08 White count 9.9 hemoglobin 16 platelets 234 d-dimer 0.98 sodium 141 potassium 3.4 creatinine 0.81 Lactic acid 2.9 LDH 1422 CRP 7.5 EKG tracing personally reviewed by me-normal sinus rhythm. Nonspecific ST segment changes. Chest x-ray film personally reviewed by me-bilateral infiltrates Assessment and plan: -Acute severe COVID 19 pneumonitis in a patient who did not take the COVID-19 vaccine: Slow to respond Dexamethasone, vitamin C, vitamin D, zinc. outside the window for Remdesivir. -Acute hypoxic respiratory failure from COVID-19: Slow to respond intubated October 30. FiO2 50/12 -Active bleeding around tracheostomy into the trachea and lungs. Status post bronchoscopy. Evacuation of large amounts of blood clot. Tracheostomy removed. Patient reintubated. revision f tracheostomy tube - November 19 -Bilateral pulmonary embolism secondary to COVID-19 Eliquis -discontinued because of bleeding. No [place] filter per vascular. Resume Lovenox when okay with surgery. -Essential hypertension Lopressor 50 mg twice a day, -Diabetes mellitus type 2, on oral hypoglycemic, uncontrolled with hyperglycemia Levemir 24 units daily at bedtime. Follow Accu-Cheks -Chronic insomnia for medical conditions Elavil 50 mg daily at bedtime -Hyperlipidemia TriCor 48 mg daily -Hypoalbuminemia Acute phase reactant -Obstructive sleep apnea On CPAP at home -Pneumomediastinum and subcutis emphysema complications of COVID-19/pneumonia. - right upper apical pneumothorax less than 5%. -Diabetic peripheral neuropathy Lyrica 200 mg twice daily -Full code Drips : fentanyl , propofol . Precedex, Ventilator. . Revision of tracheostomy today. IV anidulafungin added by pulmonary today. Lovenox to be resumed when okay with surgery. Patient remains critical.
[2021-11-19 17:29] LABS: Glucose,Whole Blood 154 mg/dL (75-99)
--- NOTE | 2021-11-19 18:01 | P.PN ---
Subjective Progress Note Date: 11/19/21 patient is seen and examined. He underwent tracheostomy revision. No evidence of further bleeding or issues at this point. Objective - Vital Signs Vital signs: Vital Signs Temp 98.5 F 11/19/21 16:00 Pulse 51 L 11/19/21 17:00 Resp 30 H 11/19/21 17:00 BP 121/64 11/19/21 17:00 Pulse Ox 100 11/19/21 17:00 Intake & Output 11/18/21 11/19/21 11/19/21 18:59 06:59 18:59 Intake Total 2538.306 4579.382 849.420 Output Total 4915 365 0187 Balance -562.556 442.382 -2255.580 Weight 130.4 kg 131.3 kg Intake: IV 299 253 204 0.9 Normal Saline @ 20 mL 260 220 180 /hr KVO Pressure bag 39 33 24 Intake, IV Titration 788.444 914.382 615.420 Amount Cefepime 2 gm In Sodium 100 Chloride 0.9% 100 ml @ 25 mls/hr IVPB Q12HR [facility] Rx #:[id number] Cisatracurium 200 mg In 308.82 34.2 Sodium Chloride 0.9% 180 ml @ 1.5 MCG/KG/MIN 10.8 mls/hr IV .[id number] [facility] Rx #:[id number] Clevidipine Butyrate 25 135.334 147.200 mg In Empty Bag 1 bag @ 1 MG/HR 2 mls/hr IV .Q24H [facility] Rx#:[id number] fentaNYL (PF) 2,500 mcg 179.624 250.000 305.903 In Sodium Chloride 0.9% 200 ml @ 0.5 MCG/KG/HR 4. 082 mls/hr IV .Q24H [facility] Rx#:[id number] propofoL 1,000 mg In 200 494.848 162.317 Empty Bag 1 bag @ Titrate IV .Q0M [facility] Rx#: [id number] Tube Feeding 40 60 30 Other 30 30 Output: Urine 7520 294 6821 Estimated Blood Loss 5 Other: Voiding Method Indwelling Catheter Indwelling Catheter Indwelling Catheter ABP, PAP, CO, CI - Last Documented Arterial Blood Pressure 96/53 - Exam General appearance: The patient is sedated and intubated. HET: Head is normocephalic and atraumatic. Pupils are equal and reactive. Oropharynx is clear without lesions. Neck: Supple without lymphadenopathy. Trachea midline. Heart: S1 S2. Regular rate and rhythm. Lungs: On mechanical ventilation. No crackles or wheezes are heard. Abdomen: Soft, nontender, nondistended. Extremities: Normal skin color and turgor. Edema to all 4 extremities Skin: There is some hyperemia to his chest and upper extremities. Neurological: Sedated and intubated. - Labs CBC & Chem 7: 11/19/21 03:00 11/19/21 03:00 Labs: Abnormal Lab Results - Last 24 Hours (Table) 11/18/21 11/19/21 11/19/21 Range/Units 23:19 03:00 03:00 WBC 11.3 H (3.8-10.6) k/uL RBC 3.30 L (4.30-5.90) m/uL Hgb 10.8 L (13.0-17.5) gm/dL Hct 33.8 L (39.0-53.0) % MCV 102.4 H (80.0-100.0) fL RDW 15.9 H (11.5-15.5) % Neutrophils # 9.2 H (1.3-7.7) k/uL ABG pCO2 (35-45) mmHg ABG pO2 (83-108) mmHg ABG HCO3 (21-25) mmol/L ABG Total CO2 (19-24) mmol/L ABG O2 Saturation (94-97) % Sodium 136 L (137-145) mmol/L Creatinine 0.40 L (0.66-1.25) mg/dL Glucose 186 H (74-99) mg/dL POC Glucose (mg/dL) 120 H (75-99) mg/dL Calcium 8.3 L (8.4-10.2) mg/dL Total Bilirubin 1.5 H (0.2-1.3) mg/dL ALT 120 H (4-49) U/L Albumin 3.1 L (3.5-5.0) g/dL 11/19/21 11/19/21 11/19/21 Range/Units 05:13 05:53 08:13 WBC (3.8-10.6) k/uL RBC (4.30-5.90) m/uL Hgb (13.0-17.5) gm/dL Hct (39.0-53.0) % MCV (80.0-100.0) fL RDW (11.5-15.5) % Neutrophils # (1.3-7.7) k/uL ABG pCO2 48 H (35-45) mmHg ABG pO2 109 H (83-108) mmHg ABG HCO3 34 H (21-25) mmol/L ABG Total CO2 35 H (19-24) mmol/L ABG O2 Saturation 97.7 H (94-97) % Sodium (137-145) mmol/L Creatinine (0.66-1.25) mg/dL Glucose (74-99) mg/dL POC Glucose (mg/dL) 173 H 141 H (75-99) mg/dL Calcium (8.4-10.2) mg/dL Total Bilirubin (0.2-1.3) mg/dL ALT (4-49) U/L Albumin (3.5-5.0) g/dL 11/19/21 11/19/21 Range/Units 11:41 17:27 WBC (3.8-10.6) k/uL RBC (4.30-5.90) m/uL Hgb (13.0-17.5) gm/dL Hct (39.0-53.0) % MCV (80.0-100.0) fL RDW (11.5-15.5) % Neutrophils # (1.3-7.7) k/uL ABG pCO2 (35-45) mmHg ABG pO2 (83-108) mmHg ABG HCO3 (21-25) mmol/L ABG Total CO2 (19-24) mmol/L ABG O2 Saturation (94-97) % Sodium (137-145) mmol/L Creatinine (0.66-1.25) mg/dL Glucose (74-99) mg/dL POC Glucose (mg/dL) 153 H 154 H (75-99) mg/dL Calcium (8.4-10.2) mg/dL Total Bilirubin (0.2-1.3) mg/dL ALT (4-49) U/L Albumin (3.5-5.0) g/dL Microbiology - Last 24 Hours (Table) 11/17/21 15:35 Blood Culture - Preliminary Blood No Growth after 48 hours 11/17/21 15:15 Blood Culture - Preliminary Blood No Growth after 24 hours Assessment and Plan Assessment: 1. Bilateral pulmonary emboli on Eliquis, currently on hold for acute bleed, now on Lovenox 2. Acute bleed related to tracheostomy, resolved 3. Acute Hypoxic respiratory failure related to COVID-19 pneumonia status post intubation, tracheostomy and PEG tube placement 4. History of diabetes mellitus type 2 with diabetic neuropathy 5. Epistaxis, resolved 6. History of obstructive sleep apnea Plan: Continue supportive care There are no plans at this time to place IVC filter, if patient has further bleeding and can not continue anitcoagulation will require IVC filter placement4 high risk of clot formation. We'll continue to monitor closely and place filter if any signs of bleeding.
[2021-11-19] MEDS: INSULIN DETEMIR (LEVEMIR) 100 UNIT/ML SYR SQ SCH (20:43)
[2021-11-19 23:58] LABS: Glucose,Whole Blood 111 mg/dL (75-99)
[2021-11-20] MEDS: INSULIN ASPART (NovoLOG) 100 UNIT/ML VIAL SQ SCH ×5 (00:17→23:56)
[2021-11-20] MEDS: ARTIFICIAL TEARS-HYPROMELLOSE DROPS 15 ML BTL BOTH EYES SCH ×5 (00:17→17:27)
[2021-11-20] MEDS: fentaNYL (PF) 2,500 MCG in SODIUM CHLORIDE 0.9% 200 ML IV SCH ×3 (00:32→17:25)
[2021-11-20] MEDS: METOPROLOL TARTRATE 50 MG TAB PO SCH ×3 (00:36→20:12)
[2021-11-20 04:18] LABS: African American GFR (CKD) >90 (>60 ml/min/1.73 sqM); Anion Gap 0 mmol/L; Blood Urea Nitrogen 17 mg/dL (9-20); Calcium 7.9 mg/dL (8.4-10.2); Carbon Dioxide 36 mmol/L (22-30); Chloride 100 mmol/L (98-107); Glucose 142 mg/dL (74-99); Non-African American GFR(CKD) >90 (>60 ml/min/1.73 sqM); Potassium 3.5 mmol/L (3.5-5.1); Sodium 136 mmol/L (137-145)
[2021-11-20 04:44] LABS: HCT 26.6 % (39.0-53.0); Hypochromasia Moderate; MCH 31.9 pg (25.0-35.0); MCHC 31.4 g/dL (31.0-37.0); MCV 101.6 fL (80.0-100.0); Macrocytosis Slight; Mean Platelet Volume 8.1; Platelet Count 237 k/uL (150-450); RBC 2.62 m/uL (4.30-5.90)
[2021-11-20 04:46] LABS: HGB 8.4 gm/dL (13.0-17.5)
[2021-11-20 05:26] LABS: ABG Base Excess 12.5 mmol/L; ABG HCO3 36 mmol/L (21-25); ABG PCO2 49 mmHg (35-45); ABG PH 7.47 (7.35-7.45); ABG PO2 165 mmHg (83-108); ABG TCO2 38 mmol/L (19-24); Allen Test Performed? Yes
[2021-11-20] MEDS: CLEVIDIPINE BUTYRATE 25 MG in EMPTY BAG 1 BAG IV SCH ×6 (05:38→22:55)
[2021-11-20 05:52] LABS: Glucose,Whole Blood 147 mg/dL (75-99)
[2021-11-20] MEDS: POTASSIUM BICARBONATE/CIT AC 20 MEQ TABLET.EFF NG-TUBE SCH ×2 (05:54→07:04)
[2021-11-20] MEDS: CHLORHEXIDINE GLUCONATE 15 ML CUP MUCOUS MEM SCH ×2 (07:53→20:12)
[2021-11-20] MEDS: FUROSEMIDE 10 MG/ML 4 ML VIAL IV SCH (07:53)
[2021-11-20] MEDS: DEXAMETHASONE SOD PHOSPHATE 10 MG/ML 1 ML VIAL IVP SCH ×2 (07:53→20:12)
[2021-11-20] MEDS: PANTOPRAZOLE 40 MG/10 ML VIAL IVP SCH (07:53)
[2021-11-20] MEDS: ZINC SULFATE 220 MG CAP PO SCH (07:54)
[2021-11-20] MEDS: SERTRALINE 50 MG TAB PO SCH (07:54)
[2021-11-20] MEDS: ENOXAPARIN 80 MG/0.8 ML SYRINGE SQ SCH (07:54)
[2021-11-20] MEDS: ASCORBIC ACID 500 MG TAB PO SCH (07:54)
[2021-11-20] MEDS: PREGABALIN 100 MG CAP PO SCH ×2 (07:54→20:56)
[2021-11-20] MEDS: CHOLECALCIFEROL 25 MCG (1000 IU) TABLET PO SCH (07:54)
[2021-11-20] MEDS: DOCUSATE ORAL SOLN 100 MG/10 ML CUP PO SCH ×2 (08:02→20:12)
[2021-11-20] MEDS: bisacodyL 10 MG SUPP RECTAL SCH ×2 (08:02→20:12)
[2021-11-20] MEDS: LACTULOSE 20 GM/30 ML CUP PO SCH ×2 (08:02→20:21)
--- NOTE | 2021-11-20 08:29 | XR ---
EXAMINATION TYPE: XR chest 1V portable DATE OF EXAM: 11/20/2021 COMPARISON: Chest x-ray 11/19/2021 HISTORY: Covid 19 pneumonia TECHNIQUE: Single frontal view of the chest is obtained. FINDINGS: Tracheostomy tube and left-sided subclavian central venous catheter are stable. Cardiac me diastinal silhouette is unchanged. Bilateral mixed interstitial and airspace disease is diffuse. Ther e may be some interval improvement in aeration although there are differences in technique. There is no evident pneumothorax or pleural effusion. Overlying artifacts are noted, surgical clips again note d in the right neck. IMPRESSION: There may be some interval improvement in aeration although there are differences in shaina hnique.
[2021-11-20 09:09] LABS: Anisocytosis Slight; HCT 32.7 % (39.0-53.0); HGB 10.7 gm/dL (13.0-17.5); Hypochromasia Moderate; MCH 33.4 pg (25.0-35.0); MCHC 32.7 g/dL (31.0-37.0); MCV 102.1 fL (80.0-100.0); Macrocytosis Slight; Mean Platelet Volume 7.8; Platelet Count 300 k/uL (150-450); WBC 10.3 k/uL (3.8-10.6)
--- NOTE | 2021-11-20 09:50 | P.PN ---
Subjective Progress Note Date: 11/20/21 patient is seen and examined. He underwent tracheostomy revision yesterday. No evidence of further bleeding or issues at this point although he did have a drop in his hemoglobin. No evidence of active bleeding per nursing.. Objective - Vital Signs Vital signs: Vital Signs Temp 99.0 F 11/20/21 08:00 Pulse 79 11/20/21 09:00 Resp 30 H 11/20/21 09:00 BP 162/76 11/20/21 09:00 Pulse Ox 96 11/20/21 09:00 Intake & Output 11/19/21 11/20/21 11/20/21 18:59 06:59 18:59 Intake Total 2220.207 2952.474 257.233 Output Total 3300 730 60 Balance -2187.413 416.474 197.233 Weight 131.6 kg Intake: IV 296 276 46 0.9 Normal Saline @ 20 mL 260 240 40 /hr KVO Pressure bag 36 36 6 Intake, IV Titration 716.587 660.474 161.233 Amount Clevidipine Butyrate 25 148.367 82.933 25.4 mg In Empty Bag 1 bag @ 1 MG/HR 2 mls/hr IV .Q24H [facility] Rx#:[id number] fentaNYL (PF) 2,500 mcg 305.903 278.894 72.665 In Sodium Chloride 0.9% 200 ml @ 0.5 MCG/KG/HR 4. 082 mls/hr IV .Q24H [facility] Rx#:[id number] propofoL 1,000 mg In 262.317 298.647 63.168 Empty Bag 1 bag @ Titrate IV .Q0M [facility] Rx#: [id number] Tube Feeding 70 120 20 Other 30 90 30 Output: Urine 3295 730 60 Estimated Blood Loss 5 Other: Voiding Method Indwelling Catheter Indwelling Catheter Indwelling Catheter ABP, PAP, CO, CI - Last Documented Arterial Blood Pressure 139/60 - Exam General appearance: The patient is sedated and intubated. HET: Head is normocephalic and atraumatic. Pupils are equal and reactive. Oropharynx is clear without lesions. Neck: Supple without lymphadenopathy. Trachea midline. Heart: S1 S2. Regular rate and rhythm. Lungs: On mechanical ventilation. No crackles or wheezes are heard. Abdomen: Soft, nontender, nondistended. Extremities: Normal skin color and turgor. Edema to all 4 extremities Skin: There is some hyperemia to his chest and upper extremities however it is improving. Neurological: Sedated and intubated. - Labs CBC & Chem 7: 11/20/21 09:00 11/20/21 03:50 Labs: Abnormal Lab Results - Last 24 Hours (Table) 11/19/21 11/19/21 11/19/21 Range/Units 08:13 11:41 17:27 RBC (4.30-5.90) m/uL Hgb (13.0-17.5) gm/dL Hct (39.0-53.0) % MCV (80.0-100.0) fL RDW (11.5-15.5) % ABG pH (7.35-7.45) ABG pCO2 (35-45) mmHg ABG pO2 (83-108) mmHg ABG HCO3 (21-25) mmol/L ABG Total CO2 (19-24) mmol/L ABG O2 Saturation (94-97) % Sodium (137-145) mmol/L Carbon Dioxide (22-30) mmol/L Creatinine (0.66-1.25) mg/dL Glucose (74-99) mg/dL POC Glucose (mg/dL) 141 H 153 H 154 H (75-99) mg/dL Calcium (8.4-10.2) mg/dL 11/19/21 11/20/21 11/20/21 Range/Units 23:57 03:50 03:50 RBC 2.62 L (4.30-5.90) m/uL Hgb 8.4 L D (13.0-17.5) gm/dL Hct 26.6 L (39.0-53.0) % MCV 101.6 H (80.0-100.0) fL RDW 16.0 H (11.5-15.5) % ABG pH (7.35-7.45) ABG pCO2 (35-45) mmHg ABG pO2 (83-108) mmHg ABG HCO3 (21-25) mmol/L ABG Total CO2 (19-24) mmol/L ABG O2 Saturation (94-97) % Sodium 136 L (137-145) mmol/L Carbon Dioxide 36 H (22-30) mmol/L Creatinine 0.46 L (0.66-1.25) mg/dL Glucose 142 H (74-99) mg/dL POC Glucose (mg/dL) 111 H (75-99) mg/dL Calcium 7.9 L (8.4-10.2) mg/dL 11/20/21 11/20/21 11/20/21 Range/Units 05:23 05:51 09:00 RBC 3.20 L (4.30-5.90) m/uL Hgb 10.7 L (13.0-17.5) gm/dL Hct 32.7 L (39.0-53.0) % MCV 102.1 H (80.0-100.0) fL RDW 16.0 H (11.5-15.5) % ABG pH 7.47 H (7.35-7.45) ABG pCO2 49 H (35-45) mmHg ABG pO2 165 H (83-108) mmHg ABG HCO3 36 H (21-25) mmol/L ABG Total CO2 38 H (19-24) mmol/L ABG O2 Saturation 100.0 H (94-97) % Sodium (137-145) mmol/L Carbon Dioxide (22-30) mmol/L Creatinine (0.66-1.25) mg/dL Glucose (74-99) mg/dL POC Glucose (mg/dL) 147 H (75-99) mg/dL Calcium (8.4-10.2) mg/dL Microbiology - Last 24 Hours (Table) 11/17/21 15:15 Blood Culture - Preliminary Blood No Growth after 48 hours 11/17/21 15:35 Blood Culture - Preliminary Blood No Growth after 48 hours Assessment and Plan Assessment: 1. Bilateral pulmonary emboli on Eliquis, currently on hold for acute bleed, now on Lovenox 2. Acute bleed related to tracheostomy, resolved 3. Acute Hypoxic respiratory failure related to COVID-19 pneumonia status post intubation, tracheostomy and PEG tube placement 4. History of diabetes mellitus type 2 with diabetic neuropathy 5. Epistaxis, resolved 6. History of obstructive sleep apnea 7. Anemia Plan: Continue supportive care, recheck hemoglobin this morning. No evidence of active bleeding currently There are no plans at this time to place IVC filter, if patient has further bleeding and can not continue anitcoagulation will require IVC filter placement4 high risk of clot formation. We'll continue to monitor closely and place filter if any signs of bleeding.
[2021-11-20 11:16] LABS: Glucose,Whole Blood 176 mg/dL (75-99)
[2021-11-20] MEDS: ANIDULAFUNGIN 100 MG in SODIUM CHLORIDE 0.9% 100 ML IVPB SCH (11:42)
--- NOTE | 2021-11-20 13:12 | P.PN ---
Subjective Progress Note Date: 11/20/21 Principal diagnosis: Acute hypoxic respiratory failure secondary to COVID-19 pneumonia complicated with pulmonary embolism 11/15/2021, the patient has not shown any active bleeding from his tracheostomy site. As mentioned yesterday, the tube has been removed and the patient is currently intubated again. The wound over the neck is dry clean and intact. The patient is on no anticoagulation. Vascular surgery consultation was placed for possibly insertion of a IVC filter. Meanwhile, the patient remains sedated and paralyzed. This morning, he is on propofol running at 70 mcg/kg per minute. He is also on fentanyl at 3 mcg/kg/h Nimbex is running at 3 mcg/kg per minute. The patient is on a mechanical ventilator. This morning, he is on a rate of 22, tidal volume of 400, FiO2 of 70% with a PEEP of 10. His peak airway pressures around 37. He is returning his volume is without any major difficulties. No significant bloody secretions from his orotracheal tube. Breath sounds are equal and symmetrical bilaterally. Chest x-ray showed a stable right apical pneumothorax. There is still diffuse breath and pulmonary infiltrates consistent with overnight he related pneumonia which remains unchanged compared to yesterday. In terms of therapy, the patient is off anticoagulation. Note that the patient had pulmonary embolism at a time of his original presentation b [facility] in 10/26/2021. The patient remains on Decadron 6 mg IV every 24 hours. He is on empiric antibiotic coverage with IV Zosyn knowing that his sputum is shown Streptococcus initially and later on MSSA. He is on no pressors. He is hypertensive. He is on a chiropractor for blood pressure control which is running at 20 mL milligrams an hour. Note that his enteral feeding was stopped briefly yesterday due to the events and possibility of some questionable GI bleed. This morning, there is no active bleeding from his PEG tube and diffuse disease will be restarted. White cell count of 16.7. Hemoglobin stable at 7.9. Platelet count is at 325. Blood gas show a pH of 7.3 with a pCO2 of 68 and pO2 of 76. Rest of the blood work is stable. The abdomen is at 14 with a creatinine of 0.35. Inflammatory markers last checked was on 11/14/2021 and his LDH level was down to 949 and the CRP level was at 5.8. Reevaluated today on 11/16/2021, patient remains in the ICU, intubated and mechanically ventilated. Patient has been intubated since 10/30, patient had a tracheostomy and PEG tube placement. Patient is presently on assist control rate of 22, volume is 400 FiO2 50% and PEEP of 8. ABG showed a pO2 of 73 pCO2 54 pH of 7.43. Peak airway pressure is 31 plateau pressure is 26. A shunt is on fentanyl at 2 mcg/kg/h, he is on propofol at 60 mcg/kg/m, patient is not requiring any paralytics, and today I kept the PEEP at 8, no changes were made in his ventilator settings. Patient is on Decadron 6 mg IV push daily, he is also on enteral feeding vital HPF 10 mL per hour. Vascular surgery was consulted, and I'm strongly recommending a placement of IVC filter, however vascular surgery seems to be reluctant to place IVC filter, patient has absolute contraindication to anticoagulation therapy at this point, and the only recommendation at this point would be to place IVC filter for prevention of further clotting that may come from lower extremities although his venous Doppler is negative at this point. Again patient cannot be placed back on anticoagulation therapy considering the severity of the bleeding he had from the tracheostomy site, requiring removal of tracheostomy and the intubation. Again I have no plans to start this patient on anticoagulation therapy after hearing this story about his significant bleeding from the tracheostomy site. And again the patient has absolute contraindication to anticoagulation therapy. Try to get another vascular surgery consult, however the vascular surgeon I consulted is not available and he is not station baggage agent. WBC count is 7 today hemoglobin is 8.1. ABG as noted earlier. Metabolic profile is normal Reevaluated today on 11/17/2021, patient remains in the ICU, intubated, mechanically ventilated, sedated and paralyzed. Patient had a worsening clinical course yesterday, he developed significant erythema on his abdominal wall, and he developed erythema on his left shoulder, and seems to be involving to some extent his lower extremities with a bit of mottling, according to the nurse this happened shortly after Zosyn infusion. Hence Zosyn was discontinued, although he has been on Zosyn for quite some time, and I transitioned Zosyn to cefepime today. Patient was given 1 dose of hydrocortisone, and today I increased his Decadron 6 mg IV push twice a day. Patient required going back on Nimbex and is on Nimbex at 3 mcg/kg/m because he was tachypneic, he was not synchronous with the ventilator, and he was desaturating. Chest x-ray is basically about the same. Blood pressure was significantly high yesterday, and we had to place him back on clevidipine at 15 mg per hour. Patient is now on propofol at 70 fentanyl 50 mcg/kg/h, Nimbex and clevidipine. His ventilator settings are assist control rate of 22, I'll volume is 400, FiO2 up to 60%, PEEP up to 10. His peak airway pressure is 37, plateau pressure is 53 consistent with ARDS. Patient is supposed to have repeat or revision tracheostomy tomorrow, and this will be done by general surgery. Vascular surgery is extremely reluctant to place a filter in this patient/IVC filter, hence I will restart the patient on Lovenox at 80 mg subcu twice a day, because I believe the patient is a great set up for more thromboembolic disease and pulmonary embolism . As a matter of fact considering his worsening oxygenation over the last 24 hours may already be secondary to worsening thromboembolic disease/pulmonary embolism, and at this point I will restart the patient on Lovenox at a lower dose than he had previously, this will be 80 mg subcu twice a day. We'll hold the dose in the morning of the patient is going for revision of tracheostomy. Obviously the patient is not in any shape to be weaned or extubated anytime soon. Patient remains on enteral feeding via PEG tube which was placed previously. He is receiving vital HPF 10 mL per hour. Reevaluated today on 11/18/2021, around 1 AM this morning, I was notified about this patient doing poorly, desaturating down to the 70s, and chest x-ray showed complete opacification of the left lung with trachea shifting to the ipsilateral side, basically consistent with endobronchial mucous plugging. Hence I came in within 20 minutes, and perform bronchoscopy on this patient, I was able to suction old blood clots from the mainstem bronchus from the left lower lobe bronchus lingula bronchus and left upper lobe bronchus as well as right upper lobe bronchus and right middle lobe bronchus. Follow-up chest x-ray post operatively showed significant improvement in the aeration of the left lung, patient had to be placed on higher FiO2 and high PEEP and had to be sedated, repeat ABG this morning on 80% showed a pO2 of 234 pCO2 57 pH of 7.38. Hence his ventilator settings were readjusted, he is now on 50% FiO2, assist control rate of 30 tidal volume of 350 and the PEEP was cut down to 12. I plan to cut it down further. Patient is on propofol at 60 mcg/kg/m fentanyl at 3 mcg/kg/h and he is also on Nimbex at 3 mcg/kg/m. I am planning to stop Nimbex today. I am cutting his PEEP down to 12, and patient is on tube feeding. Lovenox is presently on hold as the patient may undergo tracheostomy revision again today by Dr. Love. His peak airway pressure today is 28th plateau pressure is 26 which seems to be encouraging, patient is not developing ARDS at least at this point. Patient remains on COVID-19 cocktail, remains on antibiotics, and Eraxis was added by infectious disease on the case. Patient also remains on cefepime. Chest x-ray this morning continues to show significant improvement in the left lung opacification, he has stable bilateral infiltrates secondary to COVID-19 p neumonia. Reevaluated today on 11/19/21, patient underwent tracheostomy early this morning, actually it was a revision of all tracheostomy. Came back to the ICU, he is now on assist control rate of 30, tidal volume 350 FiO2 was initially 50%, however I noted the patient was desaturating down to the high 80s, and I recommended that we increase his FiO2 up to 70% and would be re-titrated again based on the ultrasound showing. Apparently the patient just came back from tracheostomy. PEEP remains was at 10, and I increased the PEEP up to 12. His peak airway pressure is 38 his plateau pressure is 29. Patient remains off Nimbex, he is now on fentanyl at 3 mcg/kg/h he is also on propofol at 60 mcg/kg/m. Patient is requiring clevidipine 12 mg per hour. Electrolytes are normal. ABG as noted above. CBC count is 11.3 hemoglobin is 10.8. Patient remains on Eraxis, completed a full course of cefepime. Remains on Decadron 6 mg IV push twice a day, remains on Lasix 40 mg IV push daily, will be restarted back on Lovenox at 80 mg subcu twice a day. This will continue unless the patient develops any further bleeding patient is being treated for pulmonary embolism. Patient was reevaluated today on 11/20/21, remains in the ICU intubated and mechanically ventilated. Patient remains on tidal volume of 350 assist-control rate of 30 FiO2 at 50% today, and I cut it down to 45%. B at 12 and I cut it down to 10. ABG earlier this morning on 70% showed a pO2 of 165 pCO2 of 40 pH of 7.47. Chest x-ray continues to show bilateral interstitial infiltrates. WBC count is 6.0 hemoglobin is down to 8.4 however active bleeding is noted electrolytes are normal renal profile is normal. Patient is on fentanyl at 1.5 mcg/kg/h, propofol at 50 mcg/kg/m, clevidipine 40 mg per hour. His IV fluid is KVO, patient is on vital HPF 10 mL per hour. Patient is status post revision of tracheostomy yesterday, and he had a PEG tube was already in place. Again today I cut down his PEEP down to 10, and I cut down his FiO2 to 45%, I am planning to cut down on the sedation and hopefully assess mental status today. May eventually consider placing the patient on Precedex if the patient tolerates that well. In the meantime at this point, patient is not quite ready for weaning, but he is getting close. Patient remains on Eraxis. Remains on Decadron. And he remains on Lovenox at 80 mg subcu twice a day. Tolerating anticoagulation well, no further bleeding is noted. Objective - Vital Signs Vital signs: Vital Signs Temp 99.0 F 11/20/21 08:00 Pulse 80 11/20/21 11:00 Resp 31 H 11/20/21 11:00 BP 144/71 11/20/21 11:00 Pulse Ox 97 11/20/21 11:00 Intake & Output 11/19/21 11/20/21 11/20/21 18:59 06:59 18:59 Intake Total 4355.407 4582.474 436.182 Output Total 3300 730 1960 Balance -2187.413 416.474 -1523.818 Weight 131.6 kg 131.6 kg Intake: IV 296 276 92 0.9 Normal Saline @ 20 mL 260 240 80 /hr KVO Pressure bag 36 36 12 Intake, IV Titration 716.587 660.474 274.182 Amount Clevidipine Butyrate 25 148.367 82.933 94.533 mg In Empty Bag 1 bag @ 1 MG/HR 2 mls/hr IV .Q24H [facility] Rx#:[id number] fentaNYL (PF) 2,500 mcg 305.903 278.894 116.481 In Sodium Chloride 0.9% 200 ml @ 0.5 MCG/KG/HR 4. 082 mls/hr IV .Q24H [facility] Rx#:[id number] propofoL 1,000 mg In 262.317 298.647 63.168 Empty Bag 1 bag @ Titrate IV .Q0M [facility] Rx#: [id number] Tube Feeding 70 120 40 Other 30 90 30 Output: Urine 3295 730 1960 Estimated Blood Loss 5 Other: Voiding Method Indwelling Catheter Indwelling Catheter Indwelling Catheter ABP, PAP, CO, CI - Last Documented Arterial Blood Pressure 164/73 - Exam GENERAL EXAM: Revealed 61-year-old white male intubated, mechanically ventilated, sedated. HEAD: Normocephalic. Atraumatic, tracheostomy which is new seems to be intact. HEENT: PERRLA, EOMI, anicteric, no neck masses, no JVD, tracheostomy is intact. CHEST: No chest wall deformity. LUNGS: Diminished breath sounds at the bases. crackles at the bases CVS: S1 and S2 normal with no audible murmur, regular rhythm. ABDOMEN: No hepatosplenomegaly, normal bowel sounds, no guarding or rigidity. PEG tube is intact. Skin: No rashes. CENTRAL NERVOUS SYSTEM: Could not assess patient is sedated , plan is to cut down the sedation and evaluate mental status today. EXTREMITIES: No clubbing edema or cyanosis. Feet remain cold but good pulses noted bilaterally. - Labs CBC & Chem 7: 11/20/21 09:00 11/20/21 03:50 Labs: Abnormal Lab Results - Last 24 Hours (Table) 11/19/21 11/19/21 11/20/21 Range/Units 17:27 23:57 03:50 RBC 2.62 L (4.30-5.90) m/uL Hgb 8.4 L D (13.0-17.5) gm/dL Hct 26.6 L (39.0-53.0) % MCV 101.6 H (80.0-100.0) fL RDW 16.0 H (11.5-15.5) % ABG pH (7.35-7.45) ABG pCO2 (35-45) mmHg ABG pO2 (83-108) mmHg ABG HCO3 (21-25) mmol/L ABG Total CO2 (19-24) mmol/L ABG O2 Saturation (94-97) % Sodium (137-145) mmol/L Carbon Dioxide (22-30) mmol/L Creatinine (0.66-1.25) mg/dL Glucose (74-99) mg/dL POC Glucose (mg/dL) 154 H 111 H (75-99) mg/dL Calcium (8.4-10.2) mg/dL 11/20/21 11/20/21 11/20/21 Range/Units 03:50 05:23 05:51 RBC (4.30-5.90) m/uL Hgb (13.0-17.5) gm/dL Hct (39.0-53.0) % MCV (80.0-100.0) fL RDW (11.5-15.5) % ABG pH 7.47 H (7.35-7.45) ABG pCO2 49 H (35-45) mmHg ABG pO2 165 H (83-108) mmHg ABG HCO3 36 H (21-25) mmol/L ABG Total CO2 38 H (19-24) mmol/L ABG O2 Saturation 100.0 H (94-97) % Sodium 136 L (137-145) mmol/L Carbon Dioxide 36 H (22-30) mmol/L Creatinine 0.46 L (0.66-1.25) mg/dL Glucose 142 H (74-99) mg/dL POC Glucose (mg/dL) 147 H (75-99) mg/dL Calcium 7.9 L (8.4-10.2) mg/dL 11/20/21 11/20/21 Range/Units 09:00 11:14 RBC 3.20 L (4.30-5.90) m/uL Hgb 10.7 L (13.0-17.5) gm/dL Hct 32.7 L (39.0-53.0) % MCV 102.1 H (80.0-100.0) fL RDW 16.0 H (11.5-15.5) % ABG pH (7.35-7.45) ABG pCO2 (35-45) mmHg ABG pO2 (83-108) mmHg ABG HCO3 (21-25) mmol/L ABG Total CO2 (19-24) mmol/L ABG O2 Saturation (94-97) % Sodium (137-145) mmol/L Carbon Dioxide (22-30) mmol/L Creatinine (0.66-1.25) mg/dL Glucose (74-99) mg/dL POC Glucose (mg/dL) 176 H (75-99) mg/dL Calcium (8.4-10.2) mg/dL Microbiology - Last 24 Hours (Table) 11/17/21 15:15 Blood Culture - Preliminary Blood No Growth after 48 hours 11/17/21 15:35 Blood Culture - Preliminary Blood No Growth after 48 hours Assessment and Plan Assessment: Impression: Acute hypoxic respiratory failure secondary to COVID-19 pneumonia and secondary to acute pulmonary embolism which is a complication related to COVID-19 infection. Patient is not vaccinated. Patient was intubated on 10/30, underwent tracheostomy on 11/10, however he developed significant bleeding from the tracheostomy site/his stoma and he required reintubation with endotracheal tube, on , patient underwent revision of his tracheostomy and new tracheostomy was done. Acute bilateral pulmonary embolism, patient is back on Lovenox 80 mg subcu twice a day Type 2 diabetes with diabetic neuropathy History of obstructive sleep apnea and previous UPPP History of right eye melanoma Previous history of CVA History of rheumatoid arthritis and gout Previous history of MRSA infection in the back. Elevated inflammatory markers Pneumomediastinum and subcutaneous emphysema at the complication of COVID-19 pneumonia, resolved. Tiny right apical pneumothorax, resolved. Hypertension Dyslipidemia Left lung collapse secondary to mucus plugging and all the blood clots requiring therapeutic bronchoscopy, lavage of the left lung, extraction of blood clots from the left mainstem bronchus, left upper lobe bronchus, lingula, left lower lobe bronchus, right upper lobe bronchus, and right middle lobe bronchus. With complete reexpansion of the left lung post, this was done on 11/18/2021. Recommendation: Continue ventilatory support, cut down FiO2 to 45%, and cut down the PEEP to 10. Cut down on sedation and addressed mental status today, to decide when and if the patient couldn't tolerate trials of weaning. Continue Decadron. 6 mg twice a day. Continue Eraxis , completed full course of cefepime. Continue insulin and monitor sugars closely. Continue Lovenox 80 mg subcu twice a day Continue to monitor closely for any form of bleeding while the patient is on Lovenox. Continue nutritional support/enteral feeding Continue COVID-19 cocktail. Patient remains critically ill, and prognosis is guarded. critical care time is over 30 minutes Time with Patient: Greater than 30
--- NOTE | 2021-11-20 14:26 | XR ---
EXAMINATION TYPE: XR chest 1V DATE OF EXAM: 11/20/2021 COMPARISON: Chest x-ray 11/20/2021 HISTORY: Hypoxemia TECHNIQUE: Single frontal view of the chest is obtained. FINDINGS: Pleural-parenchymal changes within the lungs appears stable. Cardiac style silhouette is u nchanged. Tracheostomy tube is overlying the tracheal air column. Left subclavian central venous cath eter is stable. Gilbert are present over the right neck. There are overlying artifacts. No pneumothor ax or pleural effusion. IMPRESSION: There is not a significant interval change. Correlate for pneumonia versus edema, ARDS
--- NOTE | 2021-11-20 14:42 | P.PN ---
Progress Note - Text Progress Note Date: 11/20/21 Chief Complaint: Short of breath This is a pleasant 61-year-old patient, chronic stable medical conditions include diabetes, hypertension, hyperlipidemia, osteoarthritis, peripheral neuropathy, chronic gout. Patient presents with increasing shortness of breath. Cough. Clear sputum. Fever and chills. Tired rundown decrease appetite and diarrhea about 2 times a day. Patient tested positive for COVID-19 on October 09. His initial rapid COVID-19 was negative. In the send out came back positive. Patient did not take the vaccine against COVID-19. He is on 8 L of oxygen this morning. He is outside the window for Remdesivir. Admitted with COVID 19 pneumonitis, acute hypoxic respiratory failure. Started on Decadron. IV fluids. October 26 chest CTA showed bilateral pulmonary embolism. Breathing cord worse in October 30 patient is intubated. Requiring various drips. 2 feeding was started. November 10 patient got a tracheostomy and a PEG tube. Patient subsequently had a large bleed from the tracheostomy site. Desaturated. Tracheostomy had to be removed. Bedside bronchoscopy was done. Large blood loss was removed. Was put back on the ventilator/intubated. Required FFP. November 14: ICU. Patient had no bleeding around the tracheostomy site. Patient had desaturated. Tracheostomy had to be removed. The sheriffs officer, surgeon, anesthesia@tibia the bedside. Bronchoscopy was done. Blood was removed from the trachea and the bronchus. Patient put back on the ventilator. Currently 50/10. Drips include fentanyl, propofol, cleviprex. Given FFP. Review of systems: Intubated. Anticoagulation obviously has been discontinued. younger daughter the bedside. Updated. November 15: ICU. Ventilator: 60/90. Drips included propofol and fentanyl. Telemetry: Sinus rhythm. 2 feeding at 10 mL an hour. Another daughter the bedside. November 16: ICU. 2 feeding at 10 mL an hour. Ventilator: 50/8. Drips include propranolol, factor. Since patient cannot be anticoagulated at the present time. [place] filter being ordered. November 17: ICU. Ventilator: FiO2 50 and a PEEP of 10. 2 feeding at 10 mL an hour. Drips include fentanyl, propofol, Nimbex. Telemetry shows sinus rhythm. Patient seen by Dr. Larsen from vascular.: Recommended No IVC filter. Following revision of tracheostomy to resume adequate ventilation. Patient going in tomorrow for revision of tracheostomy by Dr. Love. November 18: ICU. Ventilator: 50/12. Current drips include fentanyl, propofol, Nimbex. Tracheostomy rescheduled for tomorrow. 2 feeding to be held after midnight. Hold Lovenox. November 19: ICU. Patient had tracheostomy revision done today. Ventricular: FiO2 70 PEEP of 12. Drips include fentanyl, propofol, cleviprex. Does occasionally open his eyes. Feeding is due to be restarted today. IV anidulafungin admitted because of Bibi in the sputum November 20: ICU. Ventilator: 45/10. FiO2 and PEEP was reduced today. 2 feeding being tolerated at 10 mL an hour. Drips include fentanyl, Precedex, cleviprex. Daughter at the bedside. Patient is also tolerating Lovenox. Review of systems: Patient intubated Active Medications Acetaminophen (Acetaminophen Tab 325 Mg Tab) 650 mg PO Q6HR PRN PRN Reason: Mild Pain or Fever > 100.5 Last Admin: 10/29/21 15:46 Dose: 650 mg Documented by: Albuterol Sulfate (Albuterol Hfa Inhaler) 2 puff INHALATION RT-QID PRN PRN Reason: Shortness Of Breath Last Admin: 11/14/21 20:22 Dose: 2 puff Documented by: Artificial Tears (Artificial Tears-Hypromellose Drops 15 Ml Btl) 2 drops BOTH EYES Q4HR [facility] Last Admin: 11/20/21 11:42 Dose: 2 drops Documented by: Ascorbic Acid (Ascorbic Acid 500 Mg Tab) 1,000 mg PO DAILY [facility] Last Admin: 11/20/21 07:54 Dose: 1,000 mg Documented by: Bisacodyl (Bisacodyl 10 Mg Supp) 10 mg RECTAL BID [facility] Last Admin: 11/20/21 08:02 Dose: Not Given Documented by: Chlorhexidine Gluconate (Chlorhexidine Gluconate 15 Ml Cup) 15 ml MUCOUS MEM BID [facility] Last Admin: 11/20/21 07:53 Dose: 15 ml Documented by: Cholecalciferol (Cholecalciferol 25 Mcg (1000 Iu) Tablet) 25 mcg PO DAILY [facility] Last Admin: 11/20/21 07:54 Dose: 25 mcg Documented by: Dexamethasone Sodium Phosphate (Dexamethasone Sod Phosphate 10 Mg/Ml 1 Ml Vial) 6 mg IVP BID [facility] Last Admin: 11/20/21 07:53 Dose: 6 mg Documented by: Docusate Sodium (Docusate Oral Soln 100 Mg/10 Ml Cup) 100 mg PO BID [facility] Last Admin: 11/20/21 08:02 Dose: Not Given Documented by: Enoxaparin Sodium (Enoxaparin 100 Mg/Ml Syringe) 100 mg SQ Q12HR [facility] Furosemide (Furosemide 10 Mg/Ml 4 Ml Vial) 40 mg IV DAILY [facility] Last Admin: 11/20/21 07:53 Dose: 40 mg Documented by: Hydralazine HCl (Hydralazine Hcl 20 Mg/Ml 1 Ml Vial) 20 mg IVP Q4HR PRN PRN Reason: Blood Pressure - High SBP >160 Last Admin: 11/19/21 02:30 Dose: 20 mg Documented by: Propofol 1,000 mg/ IV Solution 100 mls @ 0 mls/hr IV .Q0M [facility]; Protocol Last Admin: 11/20/21 13:08 Dose: 60 mcg/kg/min, 47.376 mls/hr Documented by: Cisatracurium Besylate 200 mg/ (Sodium Chloride) 200 mls @ 10.8 mls/hr IV .[id number] [facility]; Protocol Last Titration: 11/18/21 19:45 Dose: 0 mcg/kg/min, 0 mls/hr Documented by: Fentanyl Citrate 2,500 mcg/ (Sodium Chloride) 250 mls @ 4.082 mls/hr IV .Q24H [facility]; Protocol Last Titration: 11/20/21 11:45 Dose: 1.5 mcg/kg/hr, 12.247 mls/hr Documented by: Clevidipine 25 mg/ IV Solution 50 mls @ 2 mls/hr IV .Q24H [facility]; Protocol Last Admin: 11/20/21 13:08 Dose: 18 mg/hr, 36 mls/hr Documented by: Anidulafungin 100 mg/ Sodium (Chloride) 100 mls @ 84 mls/hr IVPB DAILY@1200 [facility] Last Admin: 11/20/21 11:42 Dose: 84 mls/hr Documented by: Insulin Aspart (Insulin Aspart (Novolog) 100 Unit/Ml Vial) 0 unit SQ Q6HR [facility]; Protocol Last Admin: 11/20/21 11:42 Dose: 4 unit Documented by: Insulin Detemir (Insulin Detemir (Levemir) 100 Unit/Ml Syr) 24 unit SQ HS [facility] Last Admin: 11/19/21 20:43 Dose: 24 unit Documented by: Lactulose (Lactulose 20 Gm/30 Ml Cup) 10 gm PO BID [facility] Last Admin: 11/20/21 08:02 Dose: Not Given Documented by: Metoprolol Tartrate (Metoprolol Tartrate 50 Mg Tab) 50 mg PO BID [facility] Last Admin: 11/20/21 07:54 Dose: 50 mg Documented by: Miscellaneous Information (Potassium Replacement Protocol 1 Each Misc) 1 each MISCELLANE DAILY PRN; Protocol PRN Reason: Per Protocol Pantoprazole Sodium (Pantoprazole 40 Mg/10 Ml Vial) 40 mg IVP DAILY [facility] Last Admin: 11/20/21 07:53 Dose: 40 mg Documented by: Pregabalin (Pregabalin 100 Mg Cap) 200 mg PO BID [facility] Last Admin: 11/20/21 07:54 Dose: 200 mg Documented by: Sertraline HCl (Sertraline 50 Mg Tab) 50 mg PO DAILY [facility] Last Admin: 11/20/21 07:54 Dose: 50 mg Documented by: Zinc Sulfate (Zinc Sulfate 220 Mg Cap) 220 mg PO DAILY [facility] Last Admin: 11/20/21 07:54 Dose: 220 mg Documented by: Social history: Patient is on Social Security. Does not smoke or drink alcohol. Patient's daughters family lives with him. Family history: Father at the age of 40 with heart attack Physical examination: VITAL SIGNS: 98.9, 18, 30, 162.78, 96% on the ventilator GENERAL: Laying in bed, . PEG tube . Tracheostomy tube. LUNGS: Respiratory rate increased,. PSYCH: Unable to assess Rest of the exam per nursing and pulmonary INVESTIGATIONS, reviewed in the clinical context: November 20: White count 10.3 hemoglobin 10.7 potassium 3.5 crit 0.43 November 19: White count 9.3 hemoglobin 10.8 potassium 3.8 creatinine 0.4 November 18: White count 14.9 hemoglobin 10.7 potassium 4.2 creatinine 0.49 Blood culture positive for Staphylococcus epidermidis/coagulates negative. Sputum culture: MSSA, Bibi albicans November 17: White count 16.9 hemoglobin 11.1 potassium 3.3 creatinine 0.4 November 16: White count 17 hemoglobin 8.1 potassium 3.2 creatinine 0.5 to October 28: D-dimer 13.4 to October 26: D-dimer 8.48 CRP 24 Chest CTA [October 26: biLateral pulmonary embolism Doppler ultrasound lower extremity: Negative for DVT October 24: White count 9.7 hemoglobin 15.3 platelets 221 d-dimer 1.93 progression 4.2 creatinine 0.71 CRP 5.5 pro-calcitonin 0.08 White count 9.9 hemoglobin 16 platelets 234 d-dimer 0.98 sodium 141 potassium 3.4 creatinine 0.81 Lactic acid 2.9 LDH 1422 CRP 7.5 EKG tracing personally reviewed by me-normal sinus rhythm. Nonspecific ST segment changes. Chest x-ray film personally reviewed by me-bilateral infiltrates Assessment and plan: -Acute severe COVID 19 pneumonitis in a patient who did not take the COVID-19 va ccine: Slow to respond Dexamethasone, vitamin C, vitamin D, zinc. outside the window for Remdesivir. -Acute hypoxic respiratory failure from COVID-19: Slow to respond intubated October 30. FiO2 45/10 -Active bleeding around tracheostomy into the trachea and lungs. Status post bronchoscopy. Evacuation of large amounts of blood clot. Tracheostomy removed. Patient reintubated. revision tracheostomy tube - November 19 -Bilateral pulmonary embolism secondary to COVID-19 Eliquis -discontinued because of bleeding. No [place] filter per vascular. Lovenox resumed after revision tracheostomy -Essential hypertension Lopressor 50 mg twice a day, -Diabetes mellitus type 2, on oral hypoglycemic, uncontrolled with hyperglycemia Levemir 24 units daily at bedtime. Follow Accu-Cheks -Chronic insomnia for medical conditions Elavil 50 mg daily at bedtime -Hyperlipidemia TriCor 48 mg daily -Hypoalbuminemia Acute phase reactant -Obstructive sleep apnea On CPAP at home -Pneumomediastinum and subcutis emphysema complications of COVID-19/pneumonia. - right upper apical pneumothorax less than 5%. -Diabetic peripheral neuropathy Lyrica 200 mg twice daily -Full code Drips : fentanyl , . Precedex, Ventilator. . IV anidulafungin tolerating Lovenox. Intensive trying to scale back sedation. Patient remains critical.
--- NOTE | 2021-11-20 15:14 | P.PN ---
Subjective Progress Note Date: 11/19/21 Principal diagnosis: Pneumonia, rash, leukocytosis Patient is a 61-year male admitted to the hospital October 23, 2021 patient diagnosed with COVID-19 pneumonia did have a respiratory failure requiring intubation failed to be extubated status post trach and PEG on November 10, 2021 patient also have a component of secondary to pneumonia with MSSA patient has received more than 2 weeks course of Zosyn which was discontinued 11/17/2021 because of rash. On today's evaluation that is 11/19/2021 the patient remains to be afebrile, patient is hemodynamically stable not requiring any pressor support, FiO2 is currently stable at 50% no significant purulent secretion through the ET or diarrhea reported by nursing staff Objective - Vital Signs Vital signs: Vital Signs Temp 98.9 F 11/19/21 12:00 Pulse 85 11/19/21 13:00 Resp 30 H 11/19/21 13:00 BP 175/80 11/19/21 13:00 Pulse Ox 97 11/19/21 13:00 Intake & Output 11/18/21 11/19/21 11/19/21 18:59 06:59 18:59 Intake Total 1906.816 4702.382 513.155 Output Total 9094 049 8722 Balance -562.556 442.382 -2591.845 Weight 130.4 kg 131.3 kg Intake: IV 299 253 161 0.9 Normal Saline @ 20 mL 260 220 140 /hr KVO Pressure bag 39 33 21 Intake, IV Titration 788.444 914.382 342.155 Amount Cefepime 2 gm In Sodium 100 Chloride 0.9% 100 ml @ 25 mls/hr IVPB Q12HR [facility] Rx #:[id number] Cisatracurium 200 mg In 308.82 34.2 Sodium Chloride 0.9% 180 ml @ 1.5 MCG/KG/MIN 10.8 mls/hr IV .[id number] [facility] Rx #:[id number] Clevidipine Butyrate 25 135.334 117.633 mg In Empty Bag 1 bag @ 1 MG/HR 2 mls/hr IV .Q24H [facility] Rx#:[id number] fentaNYL (PF) 2,500 mcg 179.624 250.000 162.205 In Sodium Chloride 0.9% 200 ml @ 0.5 MCG/KG/HR 4. 082 mls/hr IV .Q24H [facility] Rx#:[id number] propofoL 1,000 mg In 200 494.848 62.317 Empty Bag 1 bag @ Titrate IV .Q0M [facility] Rx#: [id number] Tube Feeding 40 60 10 Other 30 30 Output: Urine 9421 490 3955 Estimated Blood Loss 5 Other: Voiding Method Indwelling Catheter Indwelling Catheter Indwelling Catheter ABP, PAP, CO, CI - Last Documented Arterial Blood Pressure 161/61 - Exam GENERAL DESCRIPTION: Middle-age male intubated on the vent RESPIRATORY SYSTEM: Unlabored breathing , decreased breath sounds at bases HEART: S1 S2 regular rate and rhythm ,no loud murmurs ABDOMEN: Soft , no tenderness EXTREMITIES: No edema feet - Labs CBC & Chem 7: 11/20/21 09:00 11/20/21 03:50 Labs: Abnormal Lab Results - Last 24 Hours (Table) 11/18/21 11/18/21 11/19/21 Range/Units 16:57 23:19 03:00 WBC 11.3 H (3.8-10.6) k/uL RBC 3.30 L (4.30-5.90) m/uL Hgb 10.8 L (13.0-17.5) gm/dL Hct 33.8 L (39.0-53.0) % MCV 102.4 H (80.0-100.0) fL RDW 15.9 H (11.5-15.5) % Neutrophils # 9.2 H (1.3-7.7) k/uL ABG pCO2 (35-45) mmHg ABG pO2 (83-108) mmHg ABG HCO3 (21-25) mmol/L ABG Total CO2 (19-24) mmol/L ABG O2 Saturation (94-97) % Sodium (137-145) mmol/L Creatinine (0.66-1.25) mg/dL Glucose (74-99) mg/dL POC Glucose (mg/dL) 136 H 120 H (75-99) mg/dL Calcium (8.4-10.2) mg/dL Total Bilirubin (0.2-1.3) mg/dL ALT (4-49) U/L Albumin (3.5-5.0) g/dL 11/19/21 11/19/21 11/19/21 Range/Units 03:00 05:13 05:53 WBC (3.8-10.6) k/uL RBC (4.30-5.90) m/uL Hgb (13.0-17.5) gm/dL Hct (39.0-53.0) % MCV (80.0-100.0) fL RDW (11.5-15.5) % Neutrophils # (1.3-7.7) k/uL ABG pCO2 48 H (35-45) mmHg ABG pO2 109 H (83-108) mmHg ABG HCO3 34 H (21-25) mmol/L ABG Total CO2 35 H (19-24) mmol/L ABG O2 Saturation 97.7 H (94-97) % Sodium 136 L (137-145) mmol/L Creatinine 0.40 L (0.66-1.25) mg/dL Glucose 186 H (74-99) mg/dL POC Glucose (mg/dL) 173 H (75-99) mg/dL Calcium 8.3 L (8.4-10.2) mg/dL Total Bilirubin 1.5 H (0.2-1.3) mg/dL ALT 120 H (4-49) U/L Albumin 3.1 L (3.5-5.0) g/dL 11/19/21 11/19/21 Range/Units 08:13 11:41 WBC (3.8-10.6) k/uL RBC (4.30-5.90) m/uL Hgb (13.0-17.5) gm/dL Hct (39.0-53.0) % MCV (80.0-100.0) fL RDW (11.5-15.5) % Neutrophils # (1.3-7.7) k/uL ABG pCO2 (35-45) mmHg ABG pO2 (83-108) mmHg ABG HCO3 (21-25) mmol/L ABG Total CO2 (19-24) mmol/L ABG O2 Saturation (94-97) % Sodium (137-145) mmol/L Creatinine (0.66-1.25) mg/dL Glucose (74-99) mg/dL POC Glucose (mg/dL) 141 H 153 H (75-99) mg/dL Calcium (8.4-10.2) mg/dL Total Bilirubin (0.2-1.3) mg/dL ALT (4-49) U/L Albumin (3.5-5.0) g/dL Microbiology - Last 24 Hours (Table) 11/17/21 15:15 Blood Culture - Preliminary Blood No Growth after 24 hours 11/17/21 15:35 Blood Culture - Preliminary Blood No Growth after 24 hours Assessment and Plan Assessment: 1-Patient with rash likely related to Zosyn which has been discontinued rash has resolved. 2patient with a component of MSSA pneumonia has received more than 2 weeks of IV antibiotic therapy cefepime discontinued we will continue to monitor the patient closely off antibiotic. 3elevated white count question of possible oropharyngeal candidiasis patient currently being treated with Eraxis White count is down to 11.3 today Time with Patient: Less than 30
--- NOTE | 2021-11-20 15:16 | P.PN ---
Subjective Progress Note Date: 11/20/21 Principal diagnosis: Pneumonia, rash, leukocytosis Patient is a 61-year male admitted to the hospital October 23, 2021 patient diagnosed with COVID-19 pneumonia did have a respiratory failure requiring intubation failed to be extubated status post trach and PEG on November 10, 2021 patient also have a component of secondary to pneumonia with MSSA patient has received more than 2 weeks course of Zosyn which was discontinued 11/17/2021 because of rash. On today's evaluation that is 11/20/2021 the patient continues to be afebrile, patient is hemodynamically stable not requiring any pressor support, FiO2 is down to 45 % no significant purulent secretion through the ET reported by nursing staff, patient been tolerating his tube feeds and no diarrhea reported by nursing staff Objective - Vital Signs Vital signs: Vital Signs Temp 98.9 F 11/20/21 12:00 Pulse 106 H 11/20/21 13:30 Resp 30 H 11/20/21 13:30 BP 162/74 11/20/21 13:30 Pulse Ox 92 L 11/20/21 13:30 Intake & Output 11/19/21 11/20/21 11/20/21 18:59 06:59 18:59 Intake Total 6351.301 7963.474 663.049 Output Total 3300 730 1960 Balance -2187.413 416.474 -1296.951 Weight 131.6 kg 131.6 kg Intake: IV 296 276 138 0.9 Normal Saline @ 20 mL 260 240 120 /hr KVO Pressure bag 36 36 18 Intake, IV Titration 716.587 660.474 405.049 Amount Clevidipine Butyrate 25 148.367 82.933 125.400 mg In Empty Bag 1 bag @ 1 MG/HR 2 mls/hr IV .Q24H [facility] Rx#:[id number] fentaNYL (PF) 2,500 mcg 305.903 278.894 116.481 In Sodium Chloride 0.9% 200 ml @ 0.5 MCG/KG/HR 4. 082 mls/hr IV .Q24H [facility] Rx#:[id number] propofoL 1,000 mg In 262.317 298.647 163.168 Empty Bag 1 bag @ Titrate IV .Q0M [facility] Rx#: [id number] Tube Feeding 70 120 60 Other 30 90 60 Output: Urine 3295 730 1960 Estimated Blood Loss 5 Other: Voiding Method Indwelling Catheter Indwelling Catheter Indwelling Catheter ABP, PAP, CO, CI - Last Documented Arterial Blood Pressure 158/62 - Exam GENERAL DESCRIPTION: Middle-age male intubated on the vent RESPIRATORY SYSTEM: Unlabored breathing , decreased breath sounds at bases HEART: S1 S2 regular rate and rhythm ,no loud murmurs ABDOMEN: Soft , no tenderness EXTREMITIES: No edema feet - Labs CBC & Chem 7: 11/20/21 09:00 11/20/21 03:50 Labs: Abnormal Lab Results - Last 24 Hours (Table) 11/19/21 11/19/21 11/20/21 Range/Units 17:27 23:57 03:50 RBC 2.62 L (4.30-5.90) m/uL Hgb 8.4 L D (13.0-17.5) gm/dL Hct 26.6 L (39.0-53.0) % MCV 101.6 H (80.0-100.0) fL RDW 16.0 H (11.5-15.5) % ABG pH (7.35-7.45) ABG pCO2 (35-45) mmHg ABG pO2 (83-108) mmHg ABG HCO3 (21-25) mmol/L ABG Total CO2 (19-24) mmol/L ABG O2 Saturation (94-97) % Sodium (137-145) mmol/L Carbon Dioxide (22-30) mmol/L Creatinine (0.66-1.25) mg/dL Glucose (74-99) mg/dL POC Glucose (mg/dL) 154 H 111 H (75-99) mg/dL Calcium (8.4-10.2) mg/dL 11/20/21 11/20/21 11/20/21 Range/Units 03:50 05:23 05:51 RBC (4.30-5.90) m/uL Hgb (13.0-17.5) gm/dL Hct (39.0-53.0) % MCV (80.0-100.0) fL RDW (11.5-15.5) % ABG pH 7.47 H (7.35-7.45) ABG pCO2 49 H (35-45) mmHg ABG pO2 165 H (83-108) mmHg ABG HCO3 36 H (21-25) mmol/L ABG Total CO2 38 H (19-24) mmol/L ABG O2 Saturation 100.0 H (94-97) % Sodium 136 L (137-145) mmol/L Carbon Dioxide 36 H (22-30) mmol/L Creatinine 0.46 L (0.66-1.25) mg/dL Glucose 142 H (74-99) mg/dL POC Glucose (mg/dL) 147 H (75-99) mg/dL Calcium 7.9 L (8.4-10.2) mg/dL 11/20/21 11/20/21 Range/Units 09:00 11:14 RBC 3.20 L (4.30-5.90) m/uL Hgb 10.7 L (13.0-17.5) gm/dL Hct 32.7 L (39.0-53.0) % MCV 102.1 H (80.0-100.0) fL RDW 16.0 H (11.5-15.5) % ABG pH (7.35-7.45) ABG pCO2 (35-45) mmHg ABG pO2 (83-108) mmHg ABG HCO3 (21-25) mmol/L ABG Total CO2 (19-24) mmol/L ABG O2 Saturation (94-97) % Sodium (137-145) mmol/L Carbon Dioxide (22-30) mmol/L Creatinine (0.66-1.25) mg/dL Glucose (74-99) mg/dL POC Glucose (mg/dL) 176 H (75-99) mg/dL Calcium (8.4-10.2) mg/dL Microbiology - Last 24 Hours (Table) 11/17/21 15:15 Blood Culture - Preliminary Blood No Growth after 48 hours 11/17/21 15:35 Blood Culture - Preliminary Blood No Growth after 48 hours Assessment and Plan Assessment: 1-Patient with rash likely related to Zosyn which has been discontinued rash has resolved. 2patient with a component of MSSA pneumonia has received more than 2 weeks of IV antibiotic therapy cefepime discontinued we will continue to monitor the pat ient closely off antibiotic. 3elevated white count question of possible oropharyngeal candidiasis patient seemed to be clinically responding to Eraxis White count has normalized and is 6.0 today
--- NOTE | 2021-11-20 17:10 | P.PN ---
Subjective Progress Note Date: 11/20/21 CHIEF COMPLAINT: COVID-19 pneumonia HISTORY OF PRESENT ILLNESS: Patient is in the ICU on mechanical ventilation and sedated. Patient had revision of his tracheostomy yesterday. He is status post tracheostomy and PEG tube placement on 11/10/2021. There is no bleeding at the tracheostomy site. Afebrile. Patient restarted on his anticoagulation. WBC is 10.3 hemoglobin 10.7 patient is tolerating his tube feeds. Tube feeds are currently: 10 mL per hour Patient seen and examined with Dr. daniel PHYSICAL EXAM: VITAL SIGNS: Reviewed. GENERAL: Well-developed in no acute distress. HEENT: Head is atraumatic, normocephalic. Tracheostomy site clean dry and intact ABDOMEN: Soft. Nondistended. Nontender. PEG tube site clean dry and intact NEUROLOGIC: Intubated and sedated ASSESSMENT: 1. Acute hypoxic respiratory failure secondary to COVID-19 pneumonia requiring mechanical ventilation 2. Severe protein calorie malnutrition 3. Bilateral pulmonary emboli 4. Bleeding at tracheostomy site status post tracheostomy revision 5. Hypokalemia improved PLAN: -Continue ICU management and supportive care -Continue tube feeds -Continue to monitor tracheostomy site Physician Personal Vehicle Advisor note has been reviewed by physician. Signing provider agrees with the documented findings, assessment, and plan of care. Objective - Vital Signs Vital signs: Vital Signs Temp 98.9 F 11/20/21 12:00 Pulse 106 H 11/20/21 13:30 Resp 30 H 11/20/21 13:30 BP 162/74 11/20/21 13:30 Pulse Ox 92 L 11/20/21 13:30 Intake & Output 11/19/21 11/20/21 11/20/21 18:59 06:59 18:59 Intake Total 2626.287 7390.474 763.049 Output Total 3300 730 1960 Balance -2187.413 416.474 -1196.951 Weight 131.6 kg 131.6 kg Intake: IV 296 276 138 0.9 Normal Saline @ 20 mL 260 240 120 /hr KVO Pressure bag 36 36 18 Intake, IV Titration 716.587 660.474 505.049 Amount Clevidipine Butyrate 25 148.367 82.933 125.400 mg In Empty Bag 1 bag @ 1 MG/HR 2 mls/hr IV .Q24H [facility] Rx#:[id number] fentaNYL (PF) 2,500 mcg 305.903 278.894 116.481 In Sodium Chloride 0.9% 200 ml @ 0.5 MCG/KG/HR 4. 082 mls/hr IV .Q24H [facility] Rx#:[id number] propofoL 1,000 mg In 262.317 298.647 263.168 Empty Bag 1 bag @ Titrate IV .Q0M [facility] Rx#: [id number] Tube Feeding 70 120 60 Other 30 90 60 Output: Urine 3295 730 1960 Estimated Blood Loss 5 Other: Voiding Method Indwelling Catheter Indwelling Catheter Indwelling Catheter ABP, PAP, CO, CI - Last Documented Arterial Blood Pressure 158/62 - Labs CBC & Chem 7: 11/20/21 09:00 11/20/21 03:50 Labs: Abnormal Lab Results - Last 24 Hours (Table) 11/19/21 11/19/21 11/20/21 Range/Units 17:27 23:57 03:50 RBC 2.62 L (4.30-5.90) m/uL Hgb 8.4 L D (13.0-17.5) gm/dL Hct 26.6 L (39.0-53.0) % MCV 101.6 H (80.0-100.0) fL RDW 16.0 H (11.5-15.5) % ABG pH (7.35-7.45) ABG pCO2 (35-45) mmHg ABG pO2 (83-108) mmHg ABG HCO3 (21-25) mmol/L ABG Total CO2 (19-24) mmol/L ABG O2 Saturation (94-97) % Sodium (137-145) mmol/L Carbon Dioxide (22-30) mmol/L Creatinine (0.66-1.25) mg/dL Glucose (74-99) mg/dL POC Glucose (mg/dL) 154 H 111 H (75-99) mg/dL Calcium (8.4-10.2) mg/dL 11/20/21 11/20/21 11/20/21 Range/Units 03:50 05:23 05:51 RBC (4.30-5.90) m/uL Hgb (13.0-17.5) gm/dL Hct (39.0-53.0) % MCV (80.0-100.0) fL RDW (11.5-15.5) % ABG pH 7.47 H (7.35-7.45) ABG pCO2 49 H (35-45) mmHg ABG pO2 165 H (83-108) mmHg ABG HCO3 36 H (21-25) mmol/L ABG Total CO2 38 H (19-24) mmol/L ABG O2 Saturation 100.0 H (94-97) % Sodium 136 L (137-145) mmol/L Carbon Dioxide 36 H (22-30) mmol/L Creatinine 0.46 L (0.66-1.25) mg/dL Glucose 142 H (74-99) mg/dL POC Glucose (mg/dL) 147 H (75-99) mg/dL Calcium 7.9 L (8.4-10.2) mg/dL 11/20/21 11/20/21 Range/Units 09:00 11:14 RBC 3.20 L (4.30-5.90) m/uL Hgb 10.7 L (13.0-17.5) gm/dL Hct 32.7 L (39.0-53.0) % MCV 102.1 H (80.0-100.0) fL RDW 16.0 H (11.5-15.5) % ABG pH (7.35-7.45) ABG pCO2 (35-45) mmHg ABG pO2 (83-108) mmHg ABG HCO3 (21-25) mmol/L ABG Total CO2 (19-24) mmol/L ABG O2 Saturation (94-97) % Sodium (137-145) mmol/L Carbon Dioxide (22-30) mmol/L Creatinine (0.66-1.25) mg/dL Glucose (74-99) mg/dL POC Glucose (mg/dL) 176 H (75-99) mg/dL Calcium (8.4-10.2) mg/dL Microbiology - Last 24 Hours (Table) 11/17/21 15:15 Blood Culture - Preliminary Blood No Growth after 48 hours 11/17/21 15:35 Blood Culture - Preliminary Blood No Growth after 48 hours
[2021-11-20 17:52] LABS: Glucose,Whole Blood 141 mg/dL (75-99)
[2021-11-20] MEDS: ENOXAPARIN 100 MG/ML SYRINGE SQ SCH (20:13)
[2021-11-20] MEDS: INSULIN DETEMIR (LEVEMIR) 100 UNIT/ML SYR SQ SCH (20:54)
[2021-11-20] MEDS: CISATRACURIUM 200 MG in SODIUM CHLORIDE 0.9% 180 ML IV SCH (21:55)
[2021-11-20 23:51] LABS: Glucose,Whole Blood 185 mg/dL (75-99)
[2021-11-20] MEDS: ACETAMINOPHEN TAB 325 MG TAB PO PRN (23:56)
[2021-11-21] MEDS: CLEVIDIPINE BUTYRATE 25 MG in EMPTY BAG 1 BAG IV SCH ×14 (01:04→23:39)
[2021-11-21 04:01] LABS: HCT 29.5 % (39.0-53.0); HGB 10.3 gm/dL (13.0-17.5); Hypochromasia Slight; MCH 35.3 pg (25.0-35.0); MCV 100.8 fL (80.0-100.0); Macrocytosis Slight; Platelet Count 260 k/uL (150-450); RBC 2.93 m/uL (4.30-5.90); RDW 15.3 % (11.5-15.5); WBC 9.9 k/uL (3.8-10.6)
[2021-11-21 04:23] LABS: ALT 70 U/L (4-49); AST 30 U/L (17-59); African American GFR (CKD) >90 (>60 ml/min/1.73 sqM); Albumin 2.9 g/dL (3.5-5.0); Alkaline Phosphatase 83 U/L (38-126); Anion Gap 6 mmol/L; Blood Urea Nitrogen 13 mg/dL (9-20); Carbon Dioxide 33 mmol/L (22-30); Chloride 98 mmol/L (98-107); Glucose 184 mg/dL (74-99); Non-African American GFR(CKD) >90 (>60 ml/min/1.73 sqM); Potassium 3.2 mmol/L (3.5-5.1); Sodium 137 mmol/L (137-145); Total Bilirubin 1.2 mg/dL (0.2-1.3); Total Protein 5.9 g/dL (6.3-8.2)
[2021-11-21] MEDS: POTASSIUM BICARBONATE/CIT AC 20 MEQ TABLET.EFF NG-TUBE SCH ×4 (04:40→12:19)
[2021-11-21] MEDS: fentaNYL (PF) 2,500 MCG in SODIUM CHLORIDE 0.9% 200 ML IV SCH ×2 (05:32→19:16)
[2021-11-21 05:40] LABS: ABG Base Excess 14.3 mmol/L; ABG HCO3 38 mmol/L (21-25); ABG Oxygen Saturation 99.1 % (94-97); ABG PCO2 51 mmHg (35-45); ABG PH 7.48 (7.35-7.45); ABG PO2 110 mmHg (83-108); ABG TCO2 39 mmol/L (19-24); Allen Test Performed? Yes
[2021-11-21 05:53] LABS: Glucose,Whole Blood 186 mg/dL (75-99)
[2021-11-21] MEDS: INSULIN ASPART (NovoLOG) 100 UNIT/ML VIAL SQ SCH ×4 (05:53→23:38)
--- NOTE | 2021-11-21 06:54 | XR ---
EXAMINATION TYPE: XR chest 1V portable DATE OF EXAM: 11/21/2021 5:35 AM COMPARISON:Chest radiograph from one day prior. TECHNIQUE: Frontal view of the chest. CLINICAL INDICATION:Male, 61 years old with history of trach; FINDINGS: Lungs/Pleura: Similar multifocal airspace opacities. No evidence of pneumothorax or pleural effusion. Pulmonary vascularity: Unremarkable. Heart/mediastinum: Cardiomediastinal silhouette is unremarkable. Musculoskeletal: No acute osseous pathology. Surgical clips are seen along the lower right neck. Lines/Tubes: Tracheostomy cannula tip projecting over the trachea. IMPRESSION: 1. Similar multifocal airspace opacities. 2. Stable support tube.
[2021-11-21] MEDS: LACTULOSE 20 GM/30 ML CUP PO SCH ×2 (08:25→22:14)
[2021-11-21] MEDS: bisacodyL 10 MG SUPP RECTAL SCH ×2 (08:25→22:13)
[2021-11-21] MEDS: CHLORHEXIDINE GLUCONATE 15 ML CUP MUCOUS MEM SCH ×2 (08:25→22:21)
[2021-11-21] MEDS: DOCUSATE ORAL SOLN 100 MG/10 ML CUP PO SCH ×2 (08:25→22:13)
[2021-11-21] MEDS: CHOLECALCIFEROL 25 MCG (1000 IU) TABLET PO SCH (08:26)
[2021-11-21] MEDS: ZINC SULFATE 220 MG CAP PO SCH (08:26)
[2021-11-21] MEDS: ENOXAPARIN 100 MG/ML SYRINGE SQ SCH ×2 (08:26→22:21)
[2021-11-21] MEDS: ASCORBIC ACID 500 MG TAB PO SCH (08:26)
[2021-11-21] MEDS: SERTRALINE 50 MG TAB PO SCH (08:26)
[2021-11-21] MEDS: DEXAMETHASONE SOD PHOSPHATE 10 MG/ML 1 ML VIAL IVP SCH ×2 (08:26→22:20)
[2021-11-21] MEDS: PANTOPRAZOLE 40 MG/10 ML VIAL IVP SCH (08:26)
[2021-11-21] MEDS: FUROSEMIDE 10 MG/ML 4 ML VIAL IV SCH (08:26)
[2021-11-21] MEDS: PREGABALIN 100 MG CAP PO SCH ×2 (08:26→22:20)
[2021-11-21] MEDS: METOPROLOL TARTRATE 50 MG TAB PO SCH ×2 (08:26→22:20)
[2021-11-21] MEDS: DEXMEDETOMIDINE/0.9% NACL(PMX) 400 MCG in EMPTY BAG 1 BAG IV SCH ×3 (11:21→18:51)
[2021-11-21] MEDS: ANIDULAFUNGIN 100 MG in SODIUM CHLORIDE 0.9% 100 ML IVPB SCH (11:22)
[2021-11-21 11:33] LABS: Glucose,Whole Blood 152 mg/dL (75-99)
--- NOTE | 2021-11-21 12:41 | P.PN ---
Subjective Progress Note Date: 11/21/21 patient is seen and examined. No evidence of further bleeding or issues Objective - Vital Signs Vital signs: Vital Signs Temp 99.1 F 11/21/21 04:00 Pulse 74 11/21/21 07:00 Resp 30 H 11/21/21 07:00 BP 117/61 11/21/21 07:00 Pulse Ox 98 11/21/21 07:00 Intake & Output 11/20/21 11/21/21 11/21/21 18:59 06:59 18:59 Intake Total 7088.339 5606.040 347.539 Output Total 2260 790 60 Balance -1182.551 475.040 287.539 Weight 131.6 kg 130.5 kg Intake: IV 253 253 23 0.9 Normal Saline @ 20 mL 220 220 20 /hr KVO Pressure bag 33 33 3 Intake, IV Titration 624.449 822.040 314.539 Amount Clevidipine Butyrate 25 175.400 206.866 108.733 mg In Empty Bag 1 bag @ 1 MG/HR 2 mls/hr IV .Q24H [facility] Rx#:[id number] fentaNYL (PF) 2,500 mcg 185.881 250 In Sodium Chloride 0.9% 200 ml @ 0.5 MCG/KG/HR 4. 082 mls/hr IV .Q24H [facility] Rx#:[id number] propofoL 1,000 mg In 263.168 365.174 205.806 Empty Bag 1 bag @ Titrate IV .Q0M [facility] Rx#: [id number] Tube Feeding 110 100 10 Other 90 90 Output: Urine 2260 790 60 Other: Voiding Method Indwelling Catheter Indwelling Catheter ABP, PAP, CO, CI - Last Documented Arterial Blood Pressure 138/61 - Exam General appearance: The patient is sedated and intubated. HET: Head is normocephalic and atraumatic. Pupils are equal and reactive. Oropharynx is clear without lesions. Neck: Supple without lymphadenopathy. Trachea midline. Heart: S1 S2. Regular rate and rhythm. Lungs: On mechanical ventilation. No crackles or wheezes are heard. Abdomen: Soft, nontender, nondistended. Extremities: Normal skin color and turgor. Edema to all 4 extremities Skin: There is some hyperemia to his chest and upper extremities however it is improving. Neurological: Sedated and intubated. - Labs CBC & Chem 7: 11/21/21 03:50 11/21/21 10:44 Labs: Abnormal Lab Results - Last 24 Hours (Table) 11/20/21 11/20/21 11/21/21 Range/Units 17:50 23:50 03:50 RBC 2.93 L (4.30-5.90) m/uL Hgb 10.3 L (13.0-17.5) gm/dL Hct 29.5 L (39.0-53.0) % MCV 100.8 H (80.0-100.0) fL MCH 35.3 H (25.0-35.0) pg ABG pH (7.35-7.45) ABG pCO2 (35-45) mmHg ABG pO2 (83-108) mmHg ABG HCO3 (21-25) mmol/L ABG Total CO2 (19-24) mmol/L ABG O2 Saturation (94-97) % Potassium (3.5-5.1) mmol/L Carbon Dioxide (22-30) mmol/L Creatinine (0.66-1.25) mg/dL Glucose (74-99) mg/dL POC Glucose (mg/dL) 141 H 185 H (75-99) mg/dL Calcium (8.4-10.2) mg/dL ALT (4-49) U/L Total Protein (6.3-8.2) g/dL Albumin (3.5-5.0) g/dL 11/21/21 11/21/21 11/21/21 Range/Units 03:50 05:27 05:51 RBC (4.30-5.90) m/uL Hgb (13.0-17.5) gm/dL Hct (39.0-53.0) % MCV (80.0-100.0) fL MCH (25.0-35.0) pg ABG pH 7.48 H (7.35-7.45) ABG pCO2 51 H (35-45) mmHg ABG pO2 110 H (83-108) mmHg ABG HCO3 38 H (21-25) mmol/L ABG Total CO2 39 H (19-24) mmol/L ABG O2 Saturation 99.1 H (94-97) % Potassium 3.2 L (3.5-5.1) mmol/L Carbon Dioxide 33 H (22-30) mmol/L Creatinine 0.42 L (0.66-1.25) mg/dL Glucose 184 H (74-99) mg/dL POC Glucose (mg/dL) 186 H (75-99) mg/dL Calcium 8.0 L (8.4-10.2) mg/dL ALT 70 H (4-49) U/L Total Protein 5.9 L (6.3-8.2) g/dL Albumin 2.9 L (3.5-5.0) g/dL 11/21/21 11/21/21 Range/Units 10:44 11:31 RBC (4.30-5.90) m/uL Hgb (13.0-17.5) gm/dL Hct (39.0-53.0) % MCV (80.0-100.0) fL MCH (25.0-35.0) pg ABG pH (7.35-7.45) ABG pCO2 (35-45) mmHg ABG pO2 (83-108) mmHg ABG HCO3 (21-25) mmol/L ABG Total CO2 (19-24) mmol/L ABG O2 Saturation (94-97) % Potassium 3.3 L (3.5-5.1) mmol/L Carbon Dioxide (22-30) mmol/L Creatinine (0.66-1.25) mg/dL Glucose (74-99) mg/dL POC Glucose (mg/dL) 152 H (75-99) mg/dL Calcium (8.4-10.2) mg/dL ALT (4-49) U/L Total Protein (6.3-8.2) g/dL Albumin (3.5-5.0) g/dL Microbiology - Last 24 Hours (Table) 11/20/21 20:45 Gram Stain - Preliminary Sputum Sputum Culture - Preliminary 11/17/21 15:15 Blood Culture - Preliminary Blood No Growth after 72 hours 11/17/21 15:35 Blood Culture - Preliminary Blood No Growth after 72 hours Assessment and Plan Assessment: 1. Bilateral pulmonary emboli on Eliquis, currently on hold for acute bleed, now on Lovenox 2. Acute bleed related to tracheostomy, resolved 3. Acute Hypoxic respiratory failure related to COVID-19 pneumonia status post intubation, tracheostomy and PEG tube placement 4. History of diabetes mellitus type 2 with diabetic neuropathy 5. Epistaxis, resolved 6. History of obstructive sleep apnea 7. Anemia Plan: Pt has been stable and remains unchanged. Will sign off at thistime, please call for reevaluation if further bleeding and filter subsequently required
--- NOTE | 2021-11-21 12:42 | P.PN ---
Progress Note - Text Progress Note Date: 11/21/21 Patient's tracheostomy site is stable. Wound is clean. He'll continue receiving local wound care.
--- NOTE | 2021-11-21 13:25 | P.PN ---
Subjective Progress Note Date: 11/21/21 Principal diagnosis: Acute hypoxic respiratory failure secondary to COVID-19 pneumonia complicated with pulmonary embolism 11/15/2021, the patient has not shown any active bleeding from his tracheostomy site. As mentioned yesterday, the tube has been removed and the patient is currently intubated again. The wound over the neck is dry clean and intact. The patient is on no anticoagulation. Vascular surgery consultation was placed for possibly insertion of a IVC filter. Meanwhile, the patient remains sedated and paralyzed. This morning, he is on propofol running at 70 mcg/kg per minute. He is also on fentanyl at 3 mcg/kg/h Nimbex is running at 3 mcg/kg per minute. The patient is on a mechanical ventilator. This morning, he is on a rate of 22, tidal volume of 400, FiO2 of 70% with a PEEP of 10. His peak airway pressures around 37. He is returning his volume is without any major difficulties. No significant bloody secretions from his orotracheal tube. Breath sounds are equal and symmetrical bilaterally. Chest x-ray showed a stable right apical pneumothorax. There is still diffuse breath and pulmonary infiltrates consistent with overnight he related pneumonia which remains unchanged compared to yesterday. In terms of therapy, the patient is off anticoagulation. Note that the patient had pulmonary embolism at a time of his original presentation b [facility] in 10/26/2021. The patient remains on Decadron 6 mg IV every 24 hours. He is on empiric antibiotic coverage with IV Zosyn knowing that his sputum is shown Streptococcus initially and later on MSSA. He is on no pressors. He is hypertensive. He is on a chiropractor for blood pressure control which is running at 20 mL milligrams an hour. Note that his enteral feeding was stopped briefly yesterday due to the events and possibility of some questionable GI bleed. This morning, there is no active bleeding from his PEG tube and diffuse disease will be restarted. White cell count of 16.7. Hemoglobin stable at 7.9. Platelet count is at 325. Blood gas show a pH of 7.3 with a pCO2 of 68 and pO2 of 76. Rest of the blood work is stable. The abdomen is at 14 with a creatinine of 0.35. Inflammatory markers last checked was on 11/14/2021 and his LDH level was down to 949 and the CRP level was at 5.8. Reevaluated today on 11/16/2021, patient remains in the ICU, intubated and mechanically ventilated. Patient has been intubated since 10/30, patient had a tracheostomy and PEG tube placement. Patient is presently on assist control rate of 22, volume is 400 FiO2 50% and PEEP of 8. ABG showed a pO2 of 73 pCO2 54 pH of 7.43. Peak airway pressure is 31 plateau pressure is 26. A shunt is on fentanyl at 2 mcg/kg/h, he is on propofol at 60 mcg/kg/m, patient is not requiring any paralytics, and today I kept the PEEP at 8, no changes were made in his ventilator settings. Patient is on Decadron 6 mg IV push daily, he is also on enteral feeding vital HPF 10 mL per hour. Vascular surgery was consulted, and I'm strongly recommending a placement of IVC filter, however vascular surgery seems to be reluctant to place IVC filter, patient has absolute contraindication to anticoagulation therapy at this point, and the only recommendation at this point would be to place IVC filter for prevention of further clotting that may come from lower extremities although his venous Doppler is negative at this point. Again patient cannot be placed back on anticoagulation therapy considering the severity of the bleeding he had from the tracheostomy site, requiring removal of tracheostomy and the intubation. Again I have no plans to start this patient on anticoagulation therapy after hearing this story about his significant bleeding from the tracheostomy site. And again the patient has absolute contraindication to anticoagulation therapy. Try to get another vascular surgery consult, however the vascular surgeon I consulted is not available and he is not women's health care nurse practitioner. WBC count is 7 today hemoglobin is 8.1. ABG as noted earlier. Metabolic profile is normal Reevaluated today on 11/17/2021, patient remains in the ICU, intubated, mechanically ventilated, sedated and paralyzed. Patient had a worsening clinical course yesterday, he developed significant erythema on his abdominal wall, and he developed erythema on his left shoulder, and seems to be involving to some extent his lower extremities with a bit of mottling, according to the nurse this happened shortly after Zosyn infusion. Hence Zosyn was discontinued, although he has been on Zosyn for quite some time, and I transitioned Zosyn to cefepime today. Patient was given 1 dose of hydrocortisone, and today I increased his Decadron 6 mg IV push twice a day. Patient required going back on Nimbex and is on Nimbex at 3 mcg/kg/m because he was tachypneic, he was not synchronous with the ventilator, and he was desaturating. Chest x-ray is basically about the same. Blood pressure was significantly high yesterday, and we had to place him back on clevidipine at 15 mg per hour. Patient is now on propofol at 70 fentanyl 50 mcg/kg/h, Nimbex and clevidipine. His ventilator settings are assist control rate of 22, I'll volume is 400, FiO2 up to 60%, PEEP up to 10. His peak airway pressure is 37, plateau pressure is 53 consistent with ARDS. Patient is supposed to have repeat or revision tracheostomy tomorrow, and this will be done by general surgery. Vascular surgery is extremely reluctant to place a filter in this patient/IVC filter, hence I will restart the patient on Lovenox at 80 mg subcu twice a day, because I believe the patient is a great set up for more thromboembolic disease and pulmonary embolism . As a matter of fact considering his worsening oxygenation over the last 24 hours may already be secondary to worsening thromboembolic disease/pulmonary embolism, and at this point I will restart the patient on Lovenox at a lower dose than he had previously, this will be 80 mg subcu twice a day. We'll hold the dose in the morning of the patient is going for revision of tracheostomy. Obviously the patient is not in any shape to be weaned or extubated anytime soon. Patient remains on enteral feeding via PEG tube which was placed previously. He is receiving vital HPF 10 mL per hour. Reevaluated today on 11/18/2021, around 1 AM this morning, I was notified about this patient doing poorly, desaturating down to the 70s, and chest x-ray showed complete opacification of the left lung with trachea shifting to the ipsilateral side, basically consistent with endobronchial mucous plugging. Hence I came in within 20 minutes, and perform bronchoscopy on this patient, I was able to suction old blood clots from the mainstem bronchus from the left lower lobe bronchus lingula bronchus and left upper lobe bronchus as well as right upper lobe bronchus and right middle lobe bronchus. Follow-up chest x-ray post operatively showed significant improvement in the aeration of the left lung, patient had to be placed on higher FiO2 and high PEEP and had to be sedated, repeat ABG this morning on 80% showed a pO2 of 234 pCO2 57 pH of 7.38. Hence his ventilator settings were readjusted, he is now on 50% FiO2, assist control rate of 30 tidal volume of 350 and the PEEP was cut down to 12. I plan to cut it down further. Patient is on propofol at 60 mcg/kg/m fentanyl at 3 mcg/kg/h and he is also on Nimbex at 3 mcg/kg/m. I am planning to stop Nimbex today. I am cutting his PEEP down to 12, and patient is on tube feeding. Lovenox is presently on hold as the patient may undergo tracheostomy revision again today by Dr. Love. His peak airway pressure today is 28th plateau pressure is 26 which seems to be encouraging, patient is not developing ARDS at least at this point. Patient remains on COVID-19 cocktail, remains on antibiotics, and Eraxis was added by infectious disease on the case. Patient also remains on cefepime. Chest x-ray this morning continues to show significant improvement in the left lung opacification, he has stable bilateral infiltrates secondary to COVID-19 p neumonia. Reevaluated today on 11/19/21, patient underwent tracheostomy early this morning, actually it was a revision of all tracheostomy. Came back to the ICU, he is now on assist control rate of 30, tidal volume 350 FiO2 was initially 50%, however I noted the patient was desaturating down to the high 80s, and I recommended that we increase his FiO2 up to 70% and would be re-titrated again based on the ultrasound showing. Apparently the patient just came back from tracheostomy. PEEP remains was at 10, and I increased the PEEP up to 12. His peak airway pressure is 38 his plateau pressure is 29. Patient remains off Nimbex, he is now on fentanyl at 3 mcg/kg/h he is also on propofol at 60 mcg/kg/m. Patient is requiring clevidipine 12 mg per hour. Electrolytes are normal. ABG as noted above. CBC count is 11.3 hemoglobin is 10.8. Patient remains on Eraxis, completed a full course of cefepime. Remains on Decadron 6 mg IV push twice a day, remains on Lasix 40 mg IV push daily, will be restarted back on Lovenox at 80 mg subcu twice a day. This will continue unless the patient develops any further bleeding patient is being treated for pulmonary embolism. Patient was reevaluated today on 11/20/21, remains in the ICU intubated and mechanically ventilated. Patient remains on tidal volume of 350 assist-control rate of 30 FiO2 at 50% today, and I cut it down to 45%. B at 12 and I cut it down to 10. ABG earlier this morning on 70% showed a pO2 of 165 pCO2 of 40 pH of 7.47. Chest x-ray continues to show bilateral interstitial infiltrates. WBC count is 6.0 hemoglobin is down to 8.4 however active bleeding is noted electrolytes are normal renal profile is normal. Patient is on fentanyl at 1.5 mcg/kg/h, propofol at 50 mcg/kg/m, clevidipine 40 mg per hour. His IV fluid is KVO, patient is on vital HPF 10 mL per hour. Patient is status post revision of tracheostomy yesterday, and he had a PEG tube was already in place. Again today I cut down his PEEP down to 10, and I cut down his FiO2 to 45%, I am planning to cut down on the sedation and hopefully assess mental status today. May eventually consider placing the patient on Precedex if the patient tolerates that well. In the meantime at this point, patient is not quite ready for weaning, but he is getting close. Patient remains on Eraxis. Remains on Decadron. And he remains on Lovenox at 80 mg subcu twice a day. Tolerating anticoagulation well, no further bleeding is noted. Patient was reevaluated today on 11/21/21, remains in the ICU, intubated and mechanically ventilated. Patient is on assist control rate of 30 tidal volume 350 FiO2 45% PEEP of 10. I cut down his PEEP down to 8. Patient is sedated on propofol at 30 and fentanyl at 1.5, and I plan to stop these today and give the patient a trial on Precedex. Remains on clevidipine 40 mg per hour. Patient is sedated, not arousable yet, however yesterday he was minimally arousable, except he was a bit agitated. Hopefully today the patient could be transitioned to Precedex, and possibly consider a mode of weaning like pressure support and CPAP. Chest x-ray is basically about the same, continues to show bilateral interstitial infiltrates consistent with COVID-19 pneumonia. But his overall airway mechanics and his overall numbers including ABG is showing improvement. ABG today showed a pO2 of 110 pCO2 51 pH of 7.48. His WBC count is 9.9 hemoglobin is 10.3. Electrolytes are normal except for slightly low potassium being corrected as per protocol. Renal profile is normal. Objective - Vital Signs Vital signs: Vital Signs Temp 99.1 F 11/21/21 04:00 Pulse 74 11/21/21 07:00 Resp 30 H 11/21/21 07:00 BP 117/61 11/21/21 07:00 Pulse Ox 98 11/21/21 07:00 Intake & Output 11/20/21 11/21/21 11/21/21 18:59 06:59 18:59 Intake Total 9485.779 2974.040 444.583 Output Total 2260 790 60 Balance -1182.551 475.040 384.583 Weight 131.6 kg 130.5 kg Intake: IV 253 253 23 0.9 Normal Saline @ 20 mL 220 220 20 /hr KVO Pressure bag 33 33 3 Intake, IV Titration 624.449 822.040 411.583 Amount Clevidipine Butyrate 25 175.400 206.866 155.866 mg In Empty Bag 1 bag @ 1 MG/HR 2 mls/hr IV .Q24H [facility] Rx#:[id number] Dexmedetomidine/0.9% NaCl 12.289 (Pmx) 400 mcg In Empty Bag 1 bag @ 0.2 MCG/KG/HR 6.525 mls/hr IV .[id number] [facility] Rx#:[id number] fentaNYL (PF) 2,500 mcg 185.881 250 In Sodium Chloride 0.9% 200 ml @ 0.5 MCG/KG/HR 4. 082 mls/hr IV .Q24H [facility] Rx#:[id number] propofoL 1,000 mg In 263.168 365.174 243.428 Empty Bag 1 bag @ Titrate IV .Q0M [facility] Rx#: [id number] Tube Feeding 110 100 10 Other 90 90 Output: Urine 2260 790 60 Other: Voiding Method Indwelling Catheter Indwelling Catheter ABP, PAP, CO, CI - Last Documented Arterial Blood Pressure 138/61 - Exam GENERAL EXAM: Revealed 61-year-old white male intubated, mechanically ventilated, sedated. HEAD: Normocephalic. Atraumatic, tracheostomy which is new seems to be intact. HEENT: PERRLA, EOMI, anicteric, no neck masses, no JVD, tracheostomy is intact. CHEST: No chest wall deformity. LUNGS: Diminished breath sounds at the bases. crackles at the bases CVS: S1 and S2 normal with no audible murmur, regular rhythm. ABDOMEN: No hepatosplenomegaly, normal bowel sounds, no guarding or rigidity. PEG tube is intact. Skin: No rashes. CENTRAL NERVOUS SYSTEM: Could not assess patient is still sedated with propofol and fentanyl. EXTREMITIES: No clubbing edema or cyanosis. - Labs CBC & Chem 7: 11/21/21 03:50 11/21/21 10:44 Labs: Abnormal Lab Results - Last 24 Hours (Table) 11/20/21 11/20/21 11/21/21 Range/Units 17:50 23:50 03:50 RBC 2.93 L (4.30-5.90) m/uL Hgb 10.3 L (13.0-17.5) gm/dL Hct 29.5 L (39.0-53.0) % MCV 100.8 H (80.0-100.0) fL MCH 35.3 H (25.0-35.0) pg ABG pH (7.35-7.45) ABG pCO2 (35-45) mmHg ABG pO2 (83-108) mmHg ABG HCO3 (21-25) mmol/L ABG Total CO2 (19-24) mmol/L ABG O2 Saturation (94-97) % Potassium (3.5-5.1) mmol/L Carbon Dioxide (22-30) mmol/L Creatinine (0.66-1.25) mg/dL Glucose (74-99) mg/dL POC Glucose (mg/dL) 141 H 185 H (75-99) mg/dL Calcium (8.4-10.2) mg/dL ALT (4-49) U/L Total Protein (6.3-8.2) g/dL Albumin (3.5-5.0) g/dL 11/21/21 11/21/21 11/21/21 Range/Units 03:50 05:27 05:51 RBC (4.30-5.90) m/uL Hgb (13.0-17.5) gm/dL Hct (39.0-53.0) % MCV (80.0-100.0) fL MCH (25.0-35.0) pg ABG pH 7.48 H (7.35-7.45) ABG pCO2 51 H (35-45) mmHg ABG pO2 110 H (83-108) mmHg ABG HCO3 38 H (21-25) mmol/L ABG Total CO2 39 H (19-24) mmol/L ABG O2 Saturation 99.1 H (94-97) % Potassium 3.2 L (3.5-5.1) mmol/L Carbon Dioxide 33 H (22-30) mmol/L Creatinine 0.42 L (0.66-1.25) mg/dL Glucose 184 H (74-99) mg/dL POC Glucose (mg/dL) 186 H (75-99) mg/dL Calcium 8.0 L (8.4-10.2) mg/dL ALT 70 H (4-49) U/L Total Protein 5.9 L (6.3-8.2) g/dL Albumin 2.9 L (3.5-5.0) g/dL 11/21/21 11/21/21 Range/Units 10:44 11:31 RBC (4.30-5.90) m/uL Hgb (13.0-17.5) gm/dL Hct (39.0-53.0) % MCV (80.0-100.0) fL MCH (25.0-35.0) pg ABG pH (7.35-7.45) ABG pCO2 (35-45) mmHg ABG pO2 (83-108) mmHg ABG HCO3 (21-25) mmol/L ABG Total CO2 (19-24) mmol/L ABG O2 Saturation (94-97) % Potassium 3.3 L (3.5-5.1) mmol/L Carbon Dioxide (22-30) mmol/L Creatinine (0.66-1.25) mg/dL Glucose (74-99) mg/dL POC Glucose (mg/dL) 152 H (75-99) mg/dL Calcium (8.4-10.2) mg/dL ALT (4-49) U/L Total Protein (6.3-8.2) g/dL Albumin (3.5-5.0) g/dL Microbiology - Last 24 Hours (Table) 11/20/21 20:45 Gram Stain - Preliminary Sputum Sputum Culture - Preliminary 11/17/21 15:15 Blood Culture - Preliminary Blood No Growth after 72 hours 11/17/21 15:35 Blood Culture - Preliminary Blood No Growth after 72 hours Assessment and Plan Assessment: Impression: Acute hypoxic respiratory failure secondary to COVID-19 pneumonia and secondary to acute pulmonary embolism which is a complication related to COVID-19 infection. Patient is not vaccinated. Patient was intubated on 10/30, underwent tracheostomy on 11/10, however he developed significant bleeding from the tracheostomy site/his stoma and he required reintubation with endotracheal tube, on , patient underwent revision of his tracheostomy and new tracheostomy was done. Acute bilateral pulmonary embolism, patient is back on Lovenox 80 mg subcu twice a day Type 2 diabetes with diabetic neuropathy History of obstructive sleep apnea and previous UPPP History of right eye melanoma Previous history of CVA History of rheumatoid arthritis and gout Previous history of MRSA infection in the back. Elevated inflammatory markers Pneumomediastinum and subcutaneous emphysema at the complication of COVID-19 pneumonia, resolved. Tiny right apical pneumothorax, resolved. Hypertension Dyslipidemia Left lung collapse secondary to mucus plugging and all the blood clots requiring therapeutic bronchoscopy, lavage of the left lung, extraction of blood clots from the left mainstem bronchus, left upper lobe bronchus, lingula, left lower lobe bronchus, right upper lobe bronchus, and right middle lobe bronchus. With complete reexpansion of the left lung post, this was done on 11/18/2021. Recommendation: Continue ventilatory support, presently he is on FiO2 45% PEEP of 10 assist control rate of 30 on tidal volume of 350. Consider stopping sedation and place the patient on Precedex hopefully today. Continue Decadron. 6 mg twice a day. Continue Eraxis , completed full course of cefepime. Continue insulin and monitor sugars closely. Continue Lovenox 100 mg subcu twice a day. So far no bleeding has been noted. Continue nutritional support/enteral feeding Continue COVID-19 cocktail. Patient remains critically ill, and prognosis is guarded. critical care time is over 30 minutes Time with Patient: Greater than 30
--- NOTE | 2021-11-21 17:20 | P.PN ---
Progress Note - Text Progress Note Date: 11/21/21 Chief Complaint: Short of breath This is a pleasant 61-year-old patient, chronic stable medical conditions include diabetes, hypertension, hyperlipidemia, osteoarthritis, peripheral neuropathy, chronic gout. Patient presents with increasing shortness of breath. Cough. Clear sputum. Fever and chills. Tired rundown decrease appetite and diarrhea about 2 times a day. Patient tested positive for COVID-19 on October 09. His initial rapid COVID-19 was negative. In the send out came back positive. Patient did not take the vaccine against COVID-19. He is on 8 L of oxygen this morning. He is outside the window for Remdesivir. Admitted with COVID 19 pneumonitis, acute hypoxic respiratory failure. Started on Decadron. IV fluids. October 26 chest CTA showed bilateral pulmonary embolism. Breathing cord worse in October 30 patient is intubated. Requiring various drips. 2 feeding was started. November 10 patient got a tracheostomy and a PEG tube. Patient subsequently had a large bleed from the tracheostomy site. Desaturated. Tracheostomy had to be removed. Bedside bronchoscopy was done. Large blood loss was removed. Was put back on the ventilator/intubated. Required FFP. November 14: ICU. Patient had no bleeding around the tracheostomy site. Patient had desaturated. Tracheostomy had to be removed. The blueprint duplicator, surgeon, anesthesia@tibia the bedside. Bronchoscopy was done. Blood was removed from the trachea and the bronchus. Patient put back on the ventilator. Currently 50/10. Drips include fentanyl, propofol, cleviprex. Given FFP. Review of systems: Intubated. Anticoagulation obviously has been discontinued. younger daughter the bedside. Updated. November 15: ICU. Ventilator: 60/90. Drips included propofol and fentanyl. Telemetry: Sinus rhythm. 2 feeding at 10 mL an hour. Another daughter the bedside. November 16: ICU. 2 feeding at 10 mL an hour. Ventilator: 50/8. Drips include propranolol, factor. Since patient cannot be anticoagulated at the present time. [place] filter being ordered. November 17: ICU. Ventilator: FiO2 50 and a PEEP of 10. 2 feeding at 10 mL an hour. Drips include fentanyl, propofol, Nimbex. Telemetry shows sinus rhythm. Patient seen by Dr. Larsen from vascular.: Recommended No IVC filter. Following revision of tracheostomy to resume adequate ventilation. Patient going in tomorrow for revision of tracheostomy by Dr. Love. November 18: ICU. Ventilator: 50/12. Current drips include fentanyl, propofol, Nimbex. Tracheostomy rescheduled for tomorrow. 2 feeding to be held after midnight. Hold Lovenox. November 19: ICU. Patient had tracheostomy revision done today. Ventricular: FiO2 70 PEEP of 12. Drips include fentanyl, propofol, cleviprex. Does occasionally open his eyes. Feeding is due to be restarted today. IV anidulafungin admitted because of Bibi in the sputum November 20: ICU. Ventilator: 45/10. FiO2 and PEEP was reduced today. 2 feeding being tolerated at 10 mL an hour. Drips include fentanyl, Precedex, cleviprex. Daughter at the bedside. Patient is also tolerating Lovenox. November 21: ICU. Ventilator FiO2 45 PEEP of 8. Drips include fentanyl, propofol, cleviprex. Telemetry: Sinus rhythm. 2 feeding Review of systems: Patient intubated Active Medications Acetaminophen (Acetaminophen Tab 325 Mg Tab) 650 mg PO Q6HR PRN PRN Reason: Mild Pain or Fever > 100.5 Last Admin: 11/20/21 23:56 Dose: 650 mg Documented by: Albuterol Sulfate (Albuterol Hfa Inhaler) 2 puff INHALATION RT-QID PRN PRN Reason: Shortness Of Breath Last Admin: 11/14/21 20:22 Dose: 2 puff Documented by: Ascorbic Acid (Ascorbic Acid 500 Mg Tab) 1,000 mg PO DAILY [facility] Last Admin: 11/21/21 08:26 Dose: 1,000 mg Documented by: Bisacodyl (Bisacodyl 10 Mg Supp) 10 mg RECTAL BID [facility] Last Admin: 11/21/21 08:25 Dose: 10 mg Documented by: Chlorhexidine Gluconate (Chlorhexidine Gluconate 15 Ml Cup) 15 ml MUCOUS MEM BID [facility] Last Admin: 11/21/21 08:25 Dose: 15 ml Documented by: Cholecalciferol (Cholecalciferol 25 Mcg (1000 Iu) Tablet) 25 mcg PO DAILY [facility] Last Admin: 11/21/21 08:26 Dose: 25 mcg Documented by: Dexamethasone Sodium Phosphate (Dexamethasone Sod Phosphate 10 Mg/Ml 1 Ml Vial) 6 mg IVP BID [facility] Last Admin: 11/21/21 08:26 Dose: 6 mg Documented by: Docusate Sodium (Docusate Oral Soln 100 Mg/10 Ml Cup) 100 mg PO BID [facility] Last Admin: 11/21/21 08:25 Dose: 100 mg Documented by: Enoxaparin Sodium (Enoxaparin 100 Mg/Ml Syringe) 100 mg SQ Q12HR [facility] Last Admin: 11/21/21 08:26 Dose: 100 mg Documented by: Furosemide (Furosemide 10 Mg/Ml 4 Ml Vial) 40 mg IV DAILY [facility] Last Admin: 11/21/21 08:26 Dose: 40 mg Documented by: Hydralazine HCl (Hydralazine Hcl 20 Mg/Ml 1 Ml Vial) 20 mg IVP Q4HR PRN PRN Reason: Blood Pressure - High SBP >160 Last Admin: 11/19/21 02:30 Dose: 20 mg Documented by: Propofol 1,000 mg/ IV Solution 100 mls @ 0 mls/hr IV .Q0M [facility]; Protocol Last Titration: 11/21/21 12:49 Dose: Infused Documented by: Fentanyl Citrate 2,500 mcg/ (Sodium Chloride) 250 mls @ 4.082 mls/hr IV .Q24H [facility]; Protocol Last Titration: 11/21/21 16:17 Dose: 1 mcg/kg/hr, 8.165 mls/hr Documented by: Clevidipine 25 mg/ IV Solution 50 mls @ 2 mls/hr IV .Q24H [facility]; Protocol Last Admin: 11/21/21 16:19 Dose: 16 mg/hr, 32 mls/hr Documented by: Anidulafungin 100 mg/ Sodium (Chloride) 100 mls @ 84 mls/hr IVPB DAILY@1200 [facility] Last Admin: 11/21/21 11:22 Dose: 84 mls/hr Documented by: Dexmedetomidine HCl 400 mcg/ (IV Solution) 100 mls @ 6.525 mls/hr IV .[id number] [facility]; Protocol Last Titration: 11/21/21 16:17 Dose: 0.7 mcg/kg/hr, 22.838 mls/hr Documented by: Insulin Aspart (Insulin Aspart (Novolog) 100 Unit/Ml Vial) 0 unit SQ Q6HR [facility]; Protocol Last Admin: 11/21/21 12:06 Dose: 2 unit Documented by: Insulin Detemir (Insulin Detemir (Levemir) 100 Unit/Ml Syr) 24 unit SQ HS [facility] Last Admin: 11/20/21 20:54 Dose: 24 unit Documented by: Lactulose (Lactulose 20 Gm/30 Ml Cup) 10 gm PO BID [facility] Last Admin: 11/21/21 08:25 Dose: 10 gm Documented by: Metoprolol Tartrate (Metoprolol Tartrate 50 Mg Tab) 50 mg PO BID [facility] Last Admin: 11/21/21 08:26 Dose: 50 mg Documented by: Miscellaneous Information (Potassium Replacement Protocol 1 Each Misc) 1 each MISCELLANE DAILY PRN; Protocol PRN Reason: Per Protocol Pantoprazole Sodium (Pantoprazole 40 Mg/10 Ml Vial) 40 mg IVP DAILY [facility] Last Admin: 11/21/21 08:26 Dose: 40 mg Documented by: Pregabalin (Pregabalin 100 Mg Cap) 200 mg PO BID [facility] Last Admin: 11/21/21 08:26 Dose: 200 mg Documented by: Sertraline HCl (Sertraline 50 Mg Tab) 50 mg PO DAILY [facility] Last Admin: 11/21/21 08:26 Dose: 50 mg Documented by: Zinc Sulfate (Zinc Sulfate 220 Mg Cap) 220 mg PO DAILY [facility] Last Admin: 11/21/21 08:26 Dose: 220 mg Documented by: Social history: Patient is on Social Security. Does not smoke or drink alcohol. Patient's daughters family lives with him. Family history: Father at the age of 40 with heart attack Physical examination: VITAL SIGNS: 99.6, 73, 30, 1 24 x 73, 99% on the vent GENERAL: Laying in bed, . PEG tube . Tracheostomy tube. LUNGS: Respiratory rate increased,. PSYCH: Unable to assess Rest of the exam per nursing and pulmonary INVESTIGATIONS, reviewed in the clinical context: November 21: White count 9.9 hemoglobin 10.3 platelets 260 potassium 3.2 creatinine 0.42 November 20: White count 10.3 hemoglobin 10.7 potassium 3.5 crit 0.43 November 19: White count 9.3 hemoglobin 10.8 potassium 3.8 creatinine 0.4 November 18: White count 14.9 hemoglobin 10.7 potassium 4.2 creatinine 0.49 Blood culture positive for Staphylococcus epidermidis/coagulates negative. Sputum culture: MSSA, Bibi albicans November 17: White count 16.9 hemoglobin 11.1 potassium 3.3 creatinine 0.4 November 16: White count 17 hemoglobin 8.1 potassium 3.2 creatinine 0.5 to October 28: D-dimer 13.4 to October 26: D-dimer 8.48 CRP 24 Chest CTA [October 26: biLateral pulmonary embolism Doppler ultrasound lower extremity: Negative for DVT October 24: White count 9.7 hemoglobin 15.3 platelets 221 d-dimer 1.93 progression 4.2 creatinine 0.71 CRP 5.5 pro-calcitonin 0.08 White count 9.9 hemoglobin 16 platelets 234 d-dimer 0.98 sodium 141 potassium 3.4 creatinine 0.81 Lactic acid 2.9 LDH 1422 CRP 7.5 EKG tracing personally reviewed by me-normal sinus rhythm. Nonspecific ST segment changes. Chest x-ray film personally reviewed by me-bilateral infiltrates Assessment and plan: -Acute severe COVID 19 pneumonitis in a patient who did not take the COVID-19 vaccine: Slow to respond Dexamethasone, vitamin C, vitamin D, zinc. outside the window for Remdesivir. -Acute hypoxic respiratory failure from COVID-19: Slow to respond intubated October 30. FiO2 45/10 -Active bleeding around tracheostomy into the trachea and lungs. Status post bronchoscopy. Evacuation of large amounts of blood clot. Tracheostomy removed. Patient reintubated. revision tracheostomy tube - November 19 -Bilateral pulmonary embolism secondary to COVID-19 Eliquis -discontinued because of bleeding. No Lakia filter per vascular. Lovenox resumed after revision tracheostomy -Essential hypertension Lopressor 50 mg twice a day, -Diabetes mellitus type 2, on oral hypoglycemic, uncontrolled with hyperglycemia Levemir 24 units daily at bedtime. Follow Accu-Cheks -Chronic insomnia for medical conditions Elavil 50 mg daily at bedtime -Hyperlipidemia TriCor 48 mg daily -Hypoalbuminemia Acute phase reactant -Obstructive sleep apnea On CPAP at home -Pneumomediastinum and subcutis emphysema complications of COVID-19/pneumonia. - right upper apical pneumothorax less than 5%. -Diabetic peripheral neuropathy Lyrica 200 mg twice daily -Full code Drips : fentanyl , [propofol held] . Precedex, Ventilator. . IV anidulafungin. tolerating Lovenox. Patient remains critical.
[2021-11-21 18:04] LABS: Glucose,Whole Blood 172 mg/dL (75-99)
--- NOTE | 2021-11-21 21:42 | P.PN ---
Subjective Progress Note Date: 11/21/21 Principal diagnosis: Pneumonia, rash, leukocytosis Patient is a 61-year male admitted to the hospital October 23, 2021 patient diagnosed with COVID-19 pneumonia did have a respiratory failure requiring intubation failed to be extubated status post trach and PEG on November 10, 2021 patient also have a component of secondary to pneumonia with MSSA patient has received more than 2 weeks course of Zosyn which was discontinued 11/17/2021 because of rash. On today's evaluation that is 11/21/2021 the patient did spike in fever 101.4 around midnight the patient is afebrile since then, patient is hemodynamically stable not requiring any pressor support, the patient FiO2 is down to 45 % no significant purulent secretion through the ET reported by nursing staff, patient been tolerating his tube feeds and no diarrhea reported by nursing staff Objective - Vital Signs Vital signs: Vital Signs Temp 99.6 F 11/21/21 16:00 Pulse 53 L 11/21/21 19:00 Resp 30 H 11/21/21 19:00 BP 119/64 11/21/21 19:00 Pulse Ox 99 11/21/21 19:00 Intake & Output 11/21/21 11/21/21 11/22/21 06:59 18:59 06:59 Intake Total 4739.143 7903.296 101.827 Output Total 790 4937 75 Balance 475.040 -3693.704 26.827 Weight 130.5 kg Intake: IV 253 230 23 0.9 Normal Saline @ 20 mL 220 200 20 /hr KVO Pressure bag 33 30 3 Intake, IV Titration 822.040 973.296 78.827 Amount Anidulafungin 100 mg In 100 Sodium Chloride 0.9% 100 ml @ 84 mls/hr IVPB DAILY @1200 [facility] Rx#:[id number] Clevidipine Butyrate 25 206.866 336.933 45.333 mg In Empty Bag 1 bag @ 1 MG/HR 2 mls/hr IV .Q24H [facility] Rx#:[id number] Dexmedetomidine/0.9% NaCl 161.280 9.135 (Pmx) 400 mcg In Empty Bag 1 bag @ 0.2 MCG/KG/HR 6.525 mls/hr IV .[id number] [facility] Rx#:[id number] fentaNYL (PF) 2,500 mcg 250 131.655 24.359 In Sodium Chloride 0.9% 200 ml @ 0.5 MCG/KG/HR 4. 082 mls/hr IV .Q24H [facility] Rx#:[id number] propofoL 1,000 mg In 365.174 243.428 Empty Bag 1 bag @ Titrate IV .Q0M [facility] Rx#: [id number] Tube Feeding 100 40 Other 90 Output: Urine 790 4935 75 Stool 2 Other: Voiding Method Indwelling Catheter Indwelling Catheter # Bowel Movements 1 ABP, PAP, CO, CI - Last Documented Arterial Blood Pressure 115/51 - Exam GENERAL DESCRIPTION: Middle-age male intubated on the vent RESPIRATORY SYSTEM: Unlabored breathing , decreased breath sounds at bases HEART: S1 S2 regular rate and rhythm ,no loud murmurs ABDOMEN: Soft , no tenderness EXTREMITIES: No edema feet - Labs CBC & Chem 7: 11/21/21 03:50 11/21/21 10:44 Labs: Abnormal Lab Results - Last 24 Hours (Table) 11/20/21 11/21/21 11/21/21 Range/Units 23:50 03:50 03:50 RBC 2.93 L (4.30-5.90) m/uL Hgb 10.3 L (13.0-17.5) gm/dL Hct 29.5 L (39.0-53.0) % MCV 100.8 H (80.0-100.0) fL MCH 35.3 H (25.0-35.0) pg ABG pH (7.35-7.45) ABG pCO2 (35-45) mmHg ABG pO2 (83-108) mmHg ABG HCO3 (21-25) mmol/L ABG Total CO2 (19-24) mmol/L ABG O2 Saturation (94-97) % Potassium 3.2 L (3.5-5.1) mmol/L Carbon Dioxide 33 H (22-30) mmol/L Creatinine 0.42 L (0.66-1.25) mg/dL Glucose 184 H (74-99) mg/dL POC Glucose (mg/dL) 185 H (75-99) mg/dL Calcium 8.0 L (8.4-10.2) mg/dL ALT 70 H (4-49) U/L Total Protein 5.9 L (6.3-8.2) g/dL Albumin 2.9 L (3.5-5.0) g/dL 11/21/21 11/21/21 11/21/21 Range/Units 05:27 05:51 10:44 RBC (4.30-5.90) m/uL Hgb (13.0-17.5) gm/dL Hct (39.0-53.0) % MCV (80.0-100.0) fL MCH (25.0-35.0) pg ABG pH 7.48 H (7.35-7.45) ABG pCO2 51 H (35-45) mmHg ABG pO2 110 H (83-108) mmHg ABG HCO3 38 H (21-25) mmol/L ABG Total CO2 39 H (19-24) mmol/L ABG O2 Saturation 99.1 H (94-97) % Potassium 3.3 L (3.5-5.1) mmol/L Carbon Dioxide (22-30) mmol/L Creatinine (0.66-1.25) mg/dL Glucose (74-99) mg/dL POC Glucose (mg/dL) 186 H (75-99) mg/dL Calcium (8.4-10.2) mg/dL ALT (4-49) U/L Total Protein (6.3-8.2) g/dL Albumin (3.5-5.0) g/dL 11/21/21 11/21/21 Range/Units 11:31 18:02 RBC (4.30-5.90) m/uL Hgb (13.0-17.5) gm/dL Hct (39.0-53.0) % MCV (80.0-100.0) fL MCH (25.0-35.0) pg ABG pH (7.35-7.45) ABG pCO2 (35-45) mmHg ABG pO2 (83-108) mmHg ABG HCO3 (21-25) mmol/L ABG Total CO2 (19-24) mmol/L ABG O2 Saturation (94-97) % Potassium (3.5-5.1) mmol/L Carbon Dioxide (22-30) mmol/L Creatinine (0.66-1.25) mg/dL Glucose (74-99) mg/dL POC Glucose (mg/dL) 152 H 172 H (75-99) mg/dL Calcium (8.4-10.2) mg/dL ALT (4-49) U/L Total Protein (6.3-8.2) g/dL Albumin (3.5-5.0) g/dL Microbiology - Last 24 Hours (Table) 11/17/21 15:15 Blood Culture - Preliminary Blood No Growth after 96 hours 11/17/21 15:35 Blood Culture - Preliminary Blood No Growth after 96 hours 11/20/21 20:45 Gram Stain - Preliminary Sputum Sputum Culture - Preliminary Assessment and Plan (1) Fever Current Visit: Yes Status: Acute Code(s): R50.9 - FEVER, UNSPECIFIED SNOMED Code(s): 316228403 (2) Rash Current Visit: Yes Status: Acute Code(s): R21 - RASH AND OTHER NONSPECIFIC SKIN ERUPTION SNOMED Code(s): 903551303 (3) COVID-19 Current Visit: Yes Status: Acute Code(s): U07.1 - COVID-19 SNOMED Code(s): 463172124 Plan: 1-Patient with rash likely related to Zosyn which has been discontinued rash has resolved. 2patient with a component of MSSA pneumonia has received more than 2 weeks of IV antibiotic therapy cefepime discontinued we will continue to monitor the patient closely off antibiotic. 3elevated white count question of possible oropharyngeal candidiasis patient seemed to be clinically responding to Eraxis White count has normalized 4-patient did have a low-grade fever around midnight or 2 blood cultures will be repeated sputum has been ordered will also check a CRP and procalcitonin and determine the need for antibiotic on these results Time with Patient: Less than 30
[2021-11-21] MEDS: INSULIN DETEMIR (LEVEMIR) 100 UNIT/ML SYR SQ SCH (22:20)
[2021-11-21 23:33] LABS: Glucose,Whole Blood 151 mg/dL (75-99)
[2021-11-22] MEDS: POTASSIUM BICARBONATE/CIT AC 20 MEQ TABLET.EFF NG-TUBE SCH ×4 (01:03→18:19)
[2021-11-22] MEDS: DEXMEDETOMIDINE/0.9% NACL(PMX) 400 MCG in EMPTY BAG 1 BAG IV SCH ×2 (01:03→07:42)
[2021-11-22] MEDS: CLEVIDIPINE BUTYRATE 25 MG in EMPTY BAG 1 BAG IV SCH ×5 (01:55→22:34)
[2021-11-22] MEDS ORDERED: POTASSIUM CHLORIDE ER 20 MEQ TAB.ER PO SCH (02:00)
[2021-11-22 05:07] LABS: HCT 27.4 % (39.0-53.0); HGB 9.1 gm/dL (13.0-17.5); Hypochromasia Slight; MCH 33.1 pg (25.0-35.0); MCHC 33.3 g/dL (31.0-37.0); MCV 99.4 fL (80.0-100.0); Macrocytosis Slight; Mean Platelet Volume 8.3; Platelet Count 221 k/uL (150-450); RBC 2.75 m/uL (4.30-5.90); RDW 14.9 % (11.5-15.5)
[2021-11-22 05:23] LABS: Potassium 3.5 mmol/L (3.5-5.1)
[2021-11-22 05:27] LABS: African American GFR (CKD) >90 (>60 ml/min/1.73 sqM); Anion Gap 1 mmol/L; Blood Urea Nitrogen 13 mg/dL (9-20); C Reactive Protein 4.3 mg/dL (<1.0); Calcium 8.1 mg/dL (8.4-10.2); Carbon Dioxide 39 mmol/L (22-30); Chloride 97 mmol/L (98-107); Glucose 159 mg/dL (74-99); Non-African American GFR(CKD) >90 (>60 ml/min/1.73 sqM); Sodium 137 mmol/L (137-145)
[2021-11-22 05:46] LABS: Glucose,Whole Blood 142 mg/dL (75-99)
[2021-11-22 05:57] LABS: Glucose,Whole Blood 157 mg/dL (75-99)
[2021-11-22 06:11] LABS: ABG Base Excess 16.9 mmol/L; ABG PCO2 52 mmHg (35-45); ABG PO2 70 mmHg (83-108); ABG TCO2 42 mmol/L (19-24); Allen Test Performed? Yes
[2021-11-22 06:13] LABS: ABG HCO3 40 mmol/L (21-25)
[2021-11-22] MEDS: INSULIN ASPART (NovoLOG) 100 UNIT/ML VIAL SQ SCH ×3 (06:32→18:19)
[2021-11-22] MEDS: bisacodyL 10 MG SUPP RECTAL SCH ×2 (07:57→20:53)
[2021-11-22] MEDS: LACTULOSE 20 GM/30 ML CUP PO SCH ×2 (07:58→20:54)
[2021-11-22] MEDS: DOCUSATE ORAL SOLN 100 MG/10 ML CUP PO SCH ×2 (07:58→20:54)
[2021-11-22] MEDS: CHLORHEXIDINE GLUCONATE 15 ML CUP MUCOUS MEM SCH ×2 (08:09→20:59)
[2021-11-22] MEDS: ASCORBIC ACID 500 MG TAB PO SCH (08:10)
[2021-11-22] MEDS: SERTRALINE 50 MG TAB PO SCH (08:10)
[2021-11-22] MEDS: FUROSEMIDE 10 MG/ML 4 ML VIAL IV SCH (08:10)
[2021-11-22] MEDS: CHOLECALCIFEROL 25 MCG (1000 IU) TABLET PO SCH (08:10)
[2021-11-22] MEDS: PANTOPRAZOLE 40 MG/10 ML VIAL IVP SCH (08:10)
[2021-11-22] MEDS: DEXAMETHASONE SOD PHOSPHATE 10 MG/ML 1 ML VIAL IVP SCH ×2 (08:10→20:59)
[2021-11-22] MEDS: ZINC SULFATE 220 MG CAP PO SCH (08:10)
[2021-11-22] MEDS: PREGABALIN 100 MG CAP PO SCH ×2 (08:10→21:00)
[2021-11-22] MEDS: METOPROLOL TARTRATE 50 MG TAB PO SCH ×2 (08:10→21:00)
--- NOTE | 2021-11-22 08:21 | XR ---
EXAMINATION TYPE: XR chest 1V portable DATE OF EXAM: 11/22/2021 COMPARISON: Chest x-ray 11/21/2021 HISTORY: Covid pneumonia, tracheostomy tube placement TECHNIQUE: Single frontal view of the chest is obtained. FINDINGS: There is not significant interval change compared to prior exam accounting for differences in technique, exam is expiratory and rotated. IMPRESSION: Findings consistent with patient's history Covid pneumonia. Tracheostomy tube is overlyi ng the tracheal air column.
[2021-11-22] MEDS: CISATRACURIUM 2 MG/ML 5 ML VIAL IV ONE ×4 (09:21→09:30)
[2021-11-22] MEDS ORDERED: SUCCINYLCHOLINE CHLORIDE VIAL 200 MG/10 ML VIAL IV ONE (09:30)
[2021-11-22] MEDS ORDERED: TRANEXAMIC ACID 2,000 MG in SODIUM CHLORIDE 0.9% 100 ML IRRIGATION ONE (09:31)
[2021-11-22] MEDS: CISATRACURIUM 200 MG in SODIUM CHLORIDE 0.9% 180 ML IV SCH ×2 (09:45→21:31)
[2021-11-22] MEDS ORDERED: PROTAMINE SULFATE 10 MG/ML 5 ML VIAL IV ONE (09:45)
[2021-11-22] MEDS ORDERED: TRANEXAMIC ACID 1,000 MG/10 ML VIAL MISCELLANE ONE (09:45)
[2021-11-22] MEDS: TRANEXAMIC ACID 1,000 MG in SODIUM CHLORIDE 0.9% 250 ML IV ONE ×2 (10:20→12:30)
[2021-11-22] MEDS: TRANEXAMIC ACID 1,000 MG in SODIUM CHLORIDE 0.9% 100 ML IV STA ×2 (10:20→12:30)
[2021-11-22] MEDS ORDERED: CISATRACURIUM 2 MG/ML 5 ML VIAL IV ONE ×2 (10:35→10:38)
[2021-11-22] MEDS: ENOXAPARIN 100 MG/ML SYRINGE SQ SCH (11:17)
[2021-11-22 11:34] LABS: Glucose,Whole Blood 185 mg/dL (75-99)
--- NOTE | 2021-11-22 11:43 | XR ---
EXAMINATION TYPE: XR chest 1V DATE OF EXAM: 11/22/2021 COMPARISON: Chest x-ray dated 11/22/2021 at earlier time HISTORY: Trach revision TECHNIQUE: Single frontal view of the chest is obtained. FINDINGS: Tracheostomy tube is overlying the tracheal air column. Patient is rotated. Central venous catheter is again seen. Bilateral airspace disease is again noted, hemidiaphragms are obscured. Ther e is no evident pneumothorax. Surgical clips present over the right neck. IMPRESSION: Difficult to exclude worsening airspace disease.
[2021-11-22] MEDS: ANIDULAFUNGIN 100 MG in SODIUM CHLORIDE 0.9% 100 ML IVPB SCH (11:59)
[2021-11-22] MEDS: ARTIFICIAL TEARS-HYPROMELLOSE DROPS 15 ML BTL BOTH EYES SCH ×3 (12:01→20:54)
--- NOTE | 2021-11-22 12:08 | P.PN ---
Progress Note - Text Progress Note Date: 11/22/21 The patient had bleeding at the tracheostomy site again. Apparently he was started on full dose anticoagulation with Lovenox. He received 100 mg of Lovenox last night. He then started using approximately 2 hours after this was given. Is a bleeding initially stopped with some pressure. However he is started significant bleeding at the tracheostomy site again. The patient will need to stop all anticoagulation. We will revise his tracheostomy site for bleeding.
--- NOTE | 2021-11-22 12:11 | P.OP ---
Date of Procedure: 11/22/21 Preoperative Diagnosis: Bleeding due to Lovenox at tracheostomy site Postoperative Diagnosis: Same Procedure(s) Performed: ReVision of tracheostomy Questionable partial thyroidectomy Anesthesia: GUILHERME Surgeon: Diego Love Estimated Blood Loss (ml): 25 Pathology: other (Thyroid) Condition: critical Disposition: ICU Description of Procedure: The patient had been previously intubated by Dr. durán. His neck was prepped and draped usual fashion. The dressing was removed from the tracheostomy site. We liver retractors placed a wound. There was diffuse oozing from all the tissue in the surgical field. There was no significant bleeding from any vessels. However the entire surgical field was oozing. At this point he is left cautery the bleeding points were coagulated. There was some tissue removed which was thought to be thyroid tissue. This was dissected with electrocautery and sent to pathology. Surgicel was placed a wound. There is no bleeding seen. At this point the Allis clamps are placed on the trachea. The endotracheal tube was then brought back under direct vision. A #8 Portex adjustable cough tracheostomy tube was then placed into the trachea under direct vision. The patient was connected to the ventilator. He had some high peak pressures which were thought to due to clots of the trachea. The patient was suctioned. The tracheostomy tube was secured. Dr. durán then performed a bronchoscopy. Please see his operative note. The tracheostomy wound was packed with wet-to-dry Kerlix. Sterile dressings was applied.
--- NOTE | 2021-11-22 12:38 | OP ---
OPERATIVE REPORT OPERATIVE REPORT: Bronchoscopy using a standard regular bronchoscope, large lumen bronchoscope. It was a bronchoscopy with suctioning of blood clots from the airways. PREOPERATIVE DIAGNOSIS: Bleeding into the airways from the surgical site/tracheostomy. POSTOPERATIVE DIAGNOSIS: Bleeding into the airways from the surgical site/tracheostomy. ANESTHESIA USED: Patient was already on Nimbex drip. PROCEDURE DESCRIPTION: The patient was placed in supine position. He had already a change of his tracheostomy done by Dr. Love earlier, and the bleeding was controlled from the surgical site around the tracheostomy. Nonetheless, the patient had significant blood clots in the airways noted earlier. Patient was connected to mechanical ventilation, and an adapter was used. Then the bronchoscope was advanced through the adapter into the tracheostomy, all the way to the distal end of the tracheostomy, and there were significant blood clots noted in the right mainstem bronchus and left mainstem bronchus. These blood clots were suctioned. I was able to remove all the blood clots from the airways until completely cleared. Procedure was well tolerated. No evidence of any complications. The patient was kept on mechanical ventilation, and his vent settings were adjusted. There was evidence of significant improvement of his peak airway pressure almost as soon as the bronchoscopy was performed. Again, procedure was well tolerated. No complications. MMODL / IJN: [id number] /
--- NOTE | 2021-11-22 12:38 | OP ---
OPERATIVE REPORT OPERATIVE REPORT: Bronchoscopy using a disposable bronchoscope. PREOPERATIVE DIAGNOSIS: Tracheal bleeding from the surgical site, occlusion of the airways with blood clots, and difficulty to ventilate the patient. POSTOPERATIVE DIAGNOSIS: Tracheal bleeding from the surgical site, occlusion of the airways with blood clots, and difficulty to ventilate the patient. ANESTHESIA USED: Patient was already on Nimbex drip, and shortly before this he received succinylcholine 100 mg IV push. PROCEDURE DESCRIPTION: The patient was placed in supine position. He was already connected to mechanical ventilation, and intermittently he was Ambu-bagged using an adapter on the endotracheal tube. After adequate sedation, the bronchoscope was advanced through the endotracheal tube down to the distal end, and I was basically visualizing mostly blood clots in the distal airway. There were blood clots noted in the right mainstem bronchus and left mainstem bronchus. Attempts were made to suction the blood clots, and it was very difficult to suction the blood clots using the disposable bronchoscope. Then the patient was placed back on mechanical ventilation, and we were noticing significant difficulty ventilating the patient. Then the patient was Ambu-bagged again by Respiratory Therapy at bedside. Considering the difficulty clearing the blood clots from the airways, Dr. Love was able at the same time to remove the old tracheostomy while the patient was intubated, and a new tracheostomy was placed. Bleeding from the surgical site was controlled by Dr. Love. However, the airways were still full of blood clots. What I recommended at that point is bronchoscopy using the regular bronchoscope, and basically a large lumen bronchoscope. Patient in the meantime was Ambu-bagged, and we called the bronchoscopy team to bedside. When the bronchoscopy team was done, another bronchoscopy was done using the regular bronchoscope. Please refer to operative report for separate bronchoscopy. MMODL / IJN: [id number] /
--- NOTE | 2021-11-22 12:44 | OP ---
OPERATIVE REPORT OPERATIVE REPORT: Intubation and removal of old tracheostomy. PREOPERATIVE DIAGNOSIS: Bleeding around the tracheostomy site. Patient needed to be re-intubated and the surgeon was exploring the surgical site. The plan was to control the bleeding. However, prior to removing the old tracheostomy, patient had to be intubated and airway secured before the surgical site could be explored and bleeding could be cauterized by the surgeon. ANESTHESIA USED: Patient was already on Nimbex and he received 100 mg of succinylcholine. PROCEDURE DESCRIPTION: Patient was placed in supine position. Initially attempted to intubate the patient with direct visualization by Anesthesia; however, there was significant bleeding and blood clots in the upper airways, and there was very poor visualization of the airways. I attempted to perform this with the bronchoscope using the endotracheal tube over the bronchoscope. I again could not visualize much because of the bleeding. Then a GlideScope was used. It was applied by Dr. Carrillo/anesthesiologist, and we were able to visualize the vocal cords. Then a size 8.5 endotracheal tube was used, advanced through the vocal cords with direct visualization, and as soon as the airway was entered, the cuff was inflated, and shortly after I performed direct visualization with the bronchoscope. The endotracheal tube was in proper position above the dennis; however, there was significant amount of blood clots noted and could not be suctioned easily. MMODL / IJN: [id number] /
--- NOTE | 2021-11-22 12:50 | P.PN ---
Subjective Progress Note Date: 11/22/21 Principal diagnosis: Acute hypoxic respiratory failure secondary to COVID-19 pneumonia complicated with pulmonary embolism 11/15/2021, the patient has not shown any active bleeding from his tracheostomy site. As mentioned yesterday, the tube has been removed and the patient is currently intubated again. The wound over the neck is dry clean and intact. The patient is on no anticoagulation. Vascular surgery consultation was placed for possibly insertion of a IVC filter. Meanwhile, the patient remains sedated and paralyzed. This morning, he is on propofol running at 70 mcg/kg per minute. He is also on fentanyl at 3 mcg/kg/h Nimbex is running at 3 mcg/kg per minute. The patient is on a mechanical ventilator. This morning, he is on a rate of 22, tidal volume of 400, FiO2 of 70% with a PEEP of 10. His peak airway pressures around 37. He is returning his volume is without any major difficulties. No significant bloody secretions from his orotracheal tube. Breath sounds are equal and symmetrical bilaterally. Chest x-ray showed a stable right apical pneumothorax. There is still diffuse breath and pulmonary infiltrates consistent with overnight he related pneumonia which remains unchanged compared to yesterday. In terms of therapy, the patient is off anticoagulation. Note that the patient had pulmonary embolism at a time of his original presentation b [facility] in 10/26/2021. The patient remains on Decadron 6 mg IV every 24 hours. He is on empiric antibiotic coverage with IV Zosyn knowing that his sputum is shown Streptococcus initially and later on MSSA. He is on no pressors. He is hypertensive. He is on a chiropractor for blood pressure control which is running at 20 mL milligrams an hour. Note that his enteral feeding was stopped briefly yesterday due to the events and possibility of some questionable GI bleed. This morning, there is no active bleeding from his PEG tube and diffuse disease will be restarted. White cell count of 16.7. Hemoglobin stable at 7.9. Platelet count is at 325. Blood gas show a pH of 7.3 with a pCO2 of 68 and pO2 of 76. Rest of the blood work is stable. The abdomen is at 14 with a creatinine of 0.35. Inflammatory markers last checked was on 11/14/2021 and his LDH level was down to 949 and the CRP level was at 5.8. Reevaluated today on 11/16/2021, patient remains in the ICU, intubated and mechanically ventilated. Patient has been intubated since 10/30, patient had a tracheostomy and PEG tube placement. Patient is presently on assist control rate of 22, volume is 400 FiO2 50% and PEEP of 8. ABG showed a pO2 of 73 pCO2 54 pH of 7.43. Peak airway pressure is 31 plateau pressure is 26. A shunt is on fentanyl at 2 mcg/kg/h, he is on propofol at 60 mcg/kg/m, patient is not requiring any paralytics, and today I kept the PEEP at 8, no changes were made in his ventilator settings. Patient is on Decadron 6 mg IV push daily, he is also on enteral feeding vital HPF 10 mL per hour. Vascular surgery was consulted, and I'm strongly recommending a placement of IVC filter, however vascular surgery seems to be reluctant to place IVC filter, patient has absolute contraindication to anticoagulation therapy at this point, and the only recommendation at this point would be to place IVC filter for prevention of further clotting that may come from lower extremities although his venous Doppler is negative at this point. Again patient cannot be placed back on anticoagulation therapy considering the severity of the bleeding he had from the tracheostomy site, requiring removal of tracheostomy and the intubation. Again I have no plans to start this patient on anticoagulation therapy after hearing this story about his significant bleeding from the tracheostomy site. And again the patient has absolute contraindication to anticoagulation therapy. Try to get another vascular surgery consult, however the vascular surgeon I consulted is not available and he is not lunchroom monitor. WBC count is 7 today hemoglobin is 8.1. ABG as noted earlier. Metabolic profile is normal Reevaluated today on 11/17/2021, patient remains in the ICU, intubated, mechanically ventilated, sedated and paralyzed. Patient had a worsening clinical course yesterday, he developed significant erythema on his abdominal wall, and he developed erythema on his left shoulder, and seems to be involving to some extent his lower extremities with a bit of mottling, according to the nurse this happened shortly after Zosyn infusion. Hence Zosyn was discontinued, although he has been on Zosyn for quite some time, and I transitioned Zosyn to cefepime today. Patient was given 1 dose of hydrocortisone, and today I increased his Decadron 6 mg IV push twice a day. Patient required going back on Nimbex and is on Nimbex at 3 mcg/kg/m because he was tachypneic, he was not synchronous with the ventilator, and he was desaturating. Chest x-ray is basically about the same. Blood pressure was significantly high yesterday, and we had to place him back on clevidipine at 15 mg per hour. Patient is now on propofol at 70 fentanyl 50 mcg/kg/h, Nimbex and clevidipine. His ventilator settings are assist control rate of 22, I'll volume is 400, FiO2 up to 60%, PEEP up to 10. His peak airway pressure is 37, plateau pressure is 53 consistent with ARDS. Patient is supposed to have repeat or revision tracheostomy tomorrow, and this will be done by general surgery. Vascular surgery is extremely reluctant to place a filter in this patient/IVC filter, hence I will restart the patient on Lovenox at 80 mg subcu twice a day, because I believe the patient is a great set up for more thromboembolic disease and pulmonary embolism . As a matter of fact considering his worsening oxygenation over the last 24 hours may already be secondary to worsening thromboembolic disease/pulmonary embolism, and at this point I will restart the patient on Lovenox at a lower dose than he had previously, this will be 80 mg subcu twice a day. We'll hold the dose in the morning of the patient is going for revision of tracheostomy. Obviously the patient is not in any shape to be weaned or extubated anytime soon. Patient remains on enteral feeding via PEG tube which was placed previously. He is receiving vital HPF 10 mL per hour. Reevaluated today on 11/18/2021, around 1 AM this morning, I was notified about this patient doing poorly, desaturating down to the 70s, and chest x-ray showed complete opacification of the left lung with trachea shifting to the ipsilateral side, basically consistent with endobronchial mucous plugging. Hence I came in within 20 minutes, and perform bronchoscopy on this patient, I was able to suction old blood clots from the mainstem bronchus from the left lower lobe bronchus lingula bronchus and left upper lobe bronchus as well as right upper lobe bronchus and right middle lobe bronchus. Follow-up chest x-ray post operatively showed significant improvement in the aeration of the left lung, patient had to be placed on higher FiO2 and high PEEP and had to be sedated, repeat ABG this morning on 80% showed a pO2 of 234 pCO2 57 pH of 7.38. Hence his ventilator settings were readjusted, he is now on 50% FiO2, assist control rate of 30 tidal volume of 350 and the PEEP was cut down to 12. I plan to cut it down further. Patient is on propofol at 60 mcg/kg/m fentanyl at 3 mcg/kg/h and he is also on Nimbex at 3 mcg/kg/m. I am planning to stop Nimbex today. I am cutting his PEEP down to 12, and patient is on tube feeding. Lovenox is presently on hold as the patient may undergo tracheostomy revision again today by Dr. Love. His peak airway pressure today is 28th plateau pressure is 26 which seems to be encouraging, patient is not developing ARDS at least at this point. Patient remains on COVID-19 cocktail, remains on antibiotics, and Eraxis was added by infectious disease on the case. Patient also remains on cefepime. Chest x-ray this morning continues to show significant improvement in the left lung opacification, he has stable bilateral infiltrates secondary to COVID-19 p neumonia. Reevaluated today on 11/19/21, patient underwent tracheostomy early this morning, actually it was a revision of all tracheostomy. Came back to the ICU, he is now on assist control rate of 30, tidal volume 350 FiO2 was initially 50%, however I noted the patient was desaturating down to the high 80s, and I recommended that we increase his FiO2 up to 70% and would be re-titrated again based on the ultrasound showing. Apparently the patient just came back from tracheostomy. PEEP remains was at 10, and I increased the PEEP up to 12. His peak airway pressure is 38 his plateau pressure is 29. Patient remains off Nimbex, he is now on fentanyl at 3 mcg/kg/h he is also on propofol at 60 mcg/kg/m. Patient is requiring clevidipine 12 mg per hour. Electrolytes are normal. ABG as noted above. CBC count is 11.3 hemoglobin is 10.8. Patient remains on Eraxis, completed a full course of cefepime. Remains on Decadron 6 mg IV push twice a day, remains on Lasix 40 mg IV push daily, will be restarted back on Lovenox at 80 mg subcu twice a day. This will continue unless the patient develops any further bleeding patient is being treated for pulmonary embolism. Patient was reevaluated today on 11/20/21, remains in the ICU intubated and mechanically ventilated. Patient remains on tidal volume of 350 assist-control rate of 30 FiO2 at 50% today, and I cut it down to 45%. B at 12 and I cut it down to 10. ABG earlier this morning on 70% showed a pO2 of 165 pCO2 of 40 pH of 7.47. Chest x-ray continues to show bilateral interstitial infiltrates. WBC count is 6.0 hemoglobin is down to 8.4 however active bleeding is noted electrolytes are normal renal profile is normal. Patient is on fentanyl at 1.5 mcg/kg/h, propofol at 50 mcg/kg/m, clevidipine 40 mg per hour. His IV fluid is KVO, patient is on vital HPF 10 mL per hour. Patient is status post revision of tracheostomy yesterday, and he had a PEG tube was already in place. Again today I cut down his PEEP down to 10, and I cut down his FiO2 to 45%, I am planning to cut down on the sedation and hopefully assess mental status today. May eventually consider placing the patient on Precedex if the patient tolerates that well. In the meantime at this point, patient is not quite ready for weaning, but he is getting close. Patient remains on Eraxis. Remains on Decadron. And he remains on Lovenox at 80 mg subcu twice a day. Tolerating anticoagulation well, no further bleeding is noted. Patient was reevaluated today on 11/21/21, remains in the ICU, intubated and mechanically ventilated. Patient is on assist control rate of 30 tidal volume 350 FiO2 45% PEEP of 10. I cut down his PEEP down to 8. Patient is sedated on propofol at 30 and fentanyl at 1.5, and I plan to stop these today and give the patient a trial on Precedex. Remains on clevidipine 40 mg per hour. Patient is sedated, not arousable yet, however yesterday he was minimally arousable, except he was a bit agitated. Hopefully today the patient could be transitioned to Precedex, and possibly consider a mode of weaning like pressure support and CPAP. Chest x-ray is basically about the same, continues to show bilateral interstitial infiltrates consistent with COVID-19 pneumonia. But his overall airway mechanics and his overall numbers including ABG is showing improvement. ABG today showed a pO2 of 110 pCO2 51 pH of 7.48. His WBC count is 9.9 hemoglobin is 10.3. Electrolytes are normal except for slightly low potassium being corrected as per protocol. Renal profile is normal. Patient was reevaluated today on 11/22/21, patient took a significant downhill course of this morning, patient developed significant bleeding around the tracheostomy, and he was bleeding down into his airways. Respiration therapist was suctioning significant amount of blood from the tracheostomy, and the patient was actually developing hypoxemia, high peak airway pressures, and he was becoming extremely difficult to ventilate. Patient was Ambu bagged by resting therapist, apparently Dr. Love was notified earlier about the bleeding around the tracheostomy site, I called her immediately as soon as I saw the patient, he came in, and he recommended revision of tracheostomy. Since the recommendation was to revise tracheostomy, I had to intubate the patient with endotracheal tube, orally, attempts were made to intubate him over a bronchosco pe, however there was significant amount of blood in the oropharynx, and could not visualize the vocal cords. Then with the assistance of anesthesiology, Dr. flower, we were able to intubate the patient using a glidescope. The vocal cords were visualized, and the patient was intubated and we were able to remove the old tracheostomy were and the surgeon was able to visualize and was able to cauterize all the areas of bleeding in the surgical field. Once the bleeding was controlled, he was able to place another tracheostomy and packing was done around the tracheostomy then the endotracheal tube which we placed earlier was removed. Patient continued to have significant high airway pressure, and could not ventilate him well without an Ambu bag. Then initial bronchoscopy was done with a disposable bronchoscope, and still could not suction the blood clots in the airway which were mainly in the left mainstem bronchus, and in the right mainstem bronchus. Then the bronchoscopy team came in later on, and I was able to bronchoscope the patient again, and I was able to suction all the blood clots and the airways uneventfully. His peak airway pressure is significantly improved and we were able to ventilate the patient much better. His ventilator settings were adjusted. Place the patient on FiO2 of 100%, tidal volume of 350, rate of 30, PEEP of 12. And the ventilator settings will be adjusted accordingly. Chest x-ray after all of this showed no evidence of pneumothorax, it showed significantdisease related to COVID-19 pneumonia, basically unchanged. Prior to all of this, patient was given protamine sulfate 50 mg. I was about to give the patient tranexamic acid, but since the bleeding was controlled, and all the bleeders were cauterized, this was not done, and the order was canceled. Vascular surgery was contacted, and now clearly the patient has absolute contraindication to anticoagulation therapy, and I'm recommending IVC filter to be placed, promised to have it done tomorrow. Updated his daughter on his status over the phone. Again the patient had a significant clinical course today with bleeding around the tracheostomy required revision of tracheostomy, i t also required bronchoscopy 2, intubation and later on new tracheostomy was placed, patient was connected to mechanical ventilation with significant improvement in his ventilatory status and his peak airway pressures. Objective - Vital Signs Vital signs: Vital Signs Temp 99.4 F 11/22/21 08:00 Pulse 54 L 11/22/21 08:30 Resp 15 11/22/21 08:30 BP 112/62 11/22/21 08:30 Pulse Ox 99 11/22/21 08:30 Intake & Output 11/21/21 11/22/21 11/22/21 18:59 06:59 18:59 Intake Total 7143.953 5551.559 170.3 Output Total 4937 586 140 Balance -3693.704 519.559 30.3 Weight 127.3 kg Intake: IV 230 276 69 0.9 Normal Saline @ 20 mL 200 240 60 /hr KVO Pressure bag 30 36 9 Intake, IV Titration 973.296 409.559 41.3 Amount Anidulafungin 100 mg In 100 Sodium Chloride 0.9% 100 ml @ 84 mls/hr IVPB DAILY @1200 [facility] Rx#:[id number] Clevidipine Butyrate 25 336.933 185.200 41.3 mg In Empty Bag 1 bag @ 1 MG/HR 2 mls/hr IV .Q24H [facility] Rx#:[id number] Dexmedetomidine/0.9% NaCl 161.280 200.000 (Pmx) 400 mcg In Empty Bag 1 bag @ 0.2 MCG/KG/HR 6.525 mls/hr IV .[id number] [facility] Rx#:[id number] fentaNYL (PF) 2,500 mcg 131.655 24.359 In Sodium Chloride 0.9% 200 ml @ 0.5 MCG/KG/HR 4. 082 mls/hr IV .Q24H [facility] Rx#:[id number] propofoL 1,000 mg In 243.428 Empty Bag 1 bag @ Titrate IV .Q0M [facility] Rx#: [id number] Tube Feeding 40 330 60 Other 90 Output: Urine 4935 585 140 Stool 2 1 Other: Voiding Method Indwelling Catheter Indwelling Catheter Indwelling Catheter # Bowel Movements 1 1 ABP, PAP, CO, CI - Last Documented Arterial Blood Pressure 121/68 - Exam GENERAL EXAM: Revealed 61-year-old white male intubated, mechanically ventilated, sedated. And paralyzed. Significant bleeding was noted around the tracheostomy site required immediate attention of surgery and multiple consultants on the case. Patient underwent revision of tracheostomy again he received protamine sulfate, HEAD: Normocephalic. Atraumatic, significant amount of blood noted around the tracheostomy site. As noted earlier. HEENT: PERRLA, EOMI, anicteric, no neck masses, no JVD, tracheostomy is intact. CHEST: No chest wall deformity. LUNGS: Diminished breath sounds at the bases. crackles at the bases CVS: S1 and S2 normal with no audible murmur, regular rhythm. ABDOMEN: No hepatosplenomegaly, normal bowel sounds, no guarding or rigidity. PEG tube is intact. Skin: No rashes. CENTRAL NERVOUS SYSTEM: Could not assess , patient is sedated and paralyzed. EXTREMITIES: No clubbing 1+ bipedal edema, no cyanosis. - Labs CBC & Chem 7: 11/22/21 04:40 11/22/21 04:40 Labs: Abnormal Lab Results - Last 24 Hours (Table) 11/21/21 11/21/21 11/21/21 Range/Units 18:02 23:30 23:31 RBC (4.30-5.90) m/uL Hgb (13.0-17.5) gm/dL Hct (39.0-53.0) % ABG pH (7.35-7.45) ABG pCO2 (35-45) mmHg ABG pO2 (83-108) mmHg ABG HCO3 (21-25) mmol/L ABG Total CO2 (19-24) mmol/L Potassium 3.1 L (3.5-5.1) mmol/L Chloride (98-107) mmol/L Carbon Dioxide (22-30) mmol/L Creatinine (0.66-1.25) mg/dL Glucose (74-99) mg/dL POC Glucose (mg/dL) 172 H 151 H (75-99) mg/dL Calcium (8.4-10.2) mg/dL C-Reactive Protein (<1.0) mg/dL Procalcitonin (0.02-0.09) ng/mL 11/22/21 11/22/21 11/22/21 Range/Units 04:40 04:40 04:40 RBC 2.75 L (4.30-5.90) m/uL Hgb 9.1 L (13.0-17.5) gm/dL Hct 27.4 L (39.0-53.0) % ABG pH (7.35-7.45) ABG pCO2 (35-45) mmHg ABG pO2 (83-108) mmHg ABG HCO3 (21-25) mmol/L ABG Total CO2 (19-24) mmol/L Potassium (3.5-5.1) mmol/L Chloride 97 L (98-107) mmol/L Carbon Dioxide 39 H (22-30) mmol/L Creatinine 0.44 L (0.66-1.25) mg/dL Glucose 159 H (74-99) mg/dL POC Glucose (mg/dL) (75-99) mg/dL Calcium 8.1 L (8.4-10.2) mg/dL C-Reactive Protein 4.3 H (<1.0) mg/dL Procalcitonin 0.21 H (0.02-0.09) ng/mL 11/22/21 11/22/21 11/22/21 Range/Units 05:44 05:56 06:10 RBC (4.30-5.90) m/uL Hgb (13.0-17.5) gm/dL Hct (39.0-53.0) % ABG pH 7.50 H (7.35-7.45) ABG pCO2 52 H (35-45) mmHg ABG pO2 70 L (83-108) mmHg ABG HCO3 40 H* (21-25) mmol/L ABG Total CO2 42 H (19-24) mmol/L Potassium (3.5-5.1) mmol/L Chloride (98-107) mmol/L Carbon Dioxide (22-30) mmol/L Creatinine (0.66-1.25) mg/dL Glucose (74-99) mg/dL POC Glucose (mg/dL) 142 H 157 H (75-99) mg/dL Calcium (8.4-10.2) mg/dL C-Reactive Protein (<1.0) mg/dL Procalcitonin (0.02-0.09) ng/mL 11/22/21 Range/Units 11:33 RBC (4.30-5.90) m/uL Hgb (13.0-17.5) gm/dL Hct (39.0-53.0) % ABG pH (7.35-7.45) ABG pCO2 (35-45) mmHg ABG pO2 (83-108) mmHg ABG HCO3 (21-25) mmol/L ABG Total CO2 (19-24) mmol/L Potassium (3.5-5.1) mmol/L Chloride (98-107) mmol/L Carbon Dioxide (22-30) mmol/L Creatinine (0.66-1.25) mg/dL Glucose (74-99) mg/dL POC Glucose (mg/dL) 185 H (75-99) mg/dL Calcium (8.4-10.2) mg/dL C-Reactive Protein (<1.0) mg/dL Procalcitonin (0.02-0.09) ng/mL Microbiology - Last 24 Hours (Table) 11/20/21 20:45 Gram Stain - Preliminary Sputum Sputum Culture - Preliminary Presumptive Staph aureus Bibi albicans 11/17/21 15:15 Blood Culture - Preliminary Blood No Growth after 96 hours 11/17/21 15:35 Blood Culture - Preliminary Blood No Growth after 96 hours Assessment and Plan Assessment: Impression: Recurrent bleeding from surgical site around tracheostomy, reoccurred today on 11/22/21, required multiple procedures including revision of tracheostomy site, reintubation, bronchoscopy 2, please refer to full operative report on this patient. And refer to the operative report by surgery on the case. Acute hypoxic respiratory failure secondary to COVID-19 pneumonia and secondary to acute pulmonary embolism which is a complication related to COVID-19 infection. Patient is not vaccinated. Patient was intubated on 10/30, underwent tracheostomy on 11/10, however he developed significant bleeding from the tracheostomy site/his stoma and he required reintubation with endotracheal tube, on 11/19,, patient underwent revision of his tracheostomy and new tracheostomy was done. This occurred again on 11/22, patient required revision of tracheostomy site again and the new tracheostomy was placed, please refer to the operative report by surgery patient also required bronchoscopy 2 on 11/22/21 to suction and removed blood clots from the airways. Acute bilateral pulmonary embolism, patient cannot go back on heparin or Lovenox, hence we notified vascular surgery for IVC filter placement tomorrow. Obviously the patient has absent contraindication now to anticoagulation therapy. Bleeding from tracheostomy site occurred twice already. Vascular surgery was notified and will reevaluate for IVC filter placement. Patient did receive protamine sulfate but did not receive tranexamic acid. Type 2 diabetes with diabetic neuropathy History of obstructive sleep apnea and previous UPPP History of right eye melanoma Previous history of CVA History of rheumatoid arthritis and gout Previous history of MRSA infection in the back. Elevated inflammatory markers Pneumomediastinum and subcutaneous emphysema at the complication of COVID-19 pneumonia, resolved. Tiny right apical pneumothorax, resolved. Hypertension Dyslipidemia Left lung collapse secondary to mucus plugging and all the blood clots requiring therapeutic bronchoscopy, lavage of the left lung, extraction of blood clots from the left mainstem bronchus, left upper lobe bronchus, lingula, left lower lobe bronchus, right upper lobe bronchus, and right middle lobe bronchus. With complete reexpansion of the left lung post, this was done on 11/18/2021. Status post bronchoscopy again 2 on 11/22/21, motivated to removal blood clots from the airways and these blood clots were secondary to bleeding again from the tracheostomy site requiring revision of tracheostomy again cauterization of bleeders and placement of a new tracheostomy. Recommendation: Continue ventilatory support, patient is now back on high FiO2 100%, tidal volume is 350 rate of 30 PEEP of 12. ABG is pending. Will titrate FiO2 accordingly. Keep patient sedated and paralyzed for now now that he is recovering from major bleeding from tracheostomy. No more anticoagulation therapy, patient will need IVC filter placement. Continue Decadron. 6 mg twice a day. Continue Eraxis , completed full course of cefepime. Continue insulin and monitor sugars closely. Continue nutritional support/enteral feeding Continue COVID-19 cocktail. Patient remains critically ill, and prognosis is guarded. Updated his daughter on his condition critical care time is over 1-1/2 hours, not including the time spent on procedures, patient was basically unstable during the revision of tracheostomy and during cauterization of bleeding by surgery. And I was present all along with the patient and with other consultants on the case. Again this did not include the time I spent on procedures on this patient. Including bronchoscopy 2. And intubation. Time with Patient: Greater than 30
[2021-11-22] MEDS ORDERED: SODIUM CHLORIDE 0.9% 1,000 ML IV ONE (13:44)
[2021-11-22] MEDS: fentaNYL (PF) 2,500 MCG in SODIUM CHLORIDE 0.9% 200 ML IV SCH (14:23)
--- NOTE | 2021-11-22 15:07 | P.PN ---
Progress Note - Text Progress Note Date: 11/22/21 Chief Complaint: Short of breath This is a pleasant 61-year-old patient, chronic stable medical conditions include diabetes, hypertension, hyperlipidemia, osteoarthritis, peripheral neuropathy, chronic gout. Patient presents with increasing shortness of breath. Cough. Clear sputum. Fever and chills. Tired rundown decrease appetite and diarrhea about 2 times a day. Patient tested positive for COVID-19 on October 09. His initial rapid COVID-19 was negative. In the send out came back positive. Patient did not take the vaccine against COVID-19. He is on 8 L of oxygen this morning. He is outside the window for Remdesivir. Admitted with COVID 19 pneumonitis, acute hypoxic respiratory failure. Started on Decadron. IV fluids. October 26 chest CTA showed bilateral pulmonary embolism. Breathing cord worse in October 30 patient is intubated. Requiring various drips. 2 feeding was started. November 10 patient got a tracheostomy and a PEG tube. Patient subsequently had a large bleed from the tracheostomy site. Desaturated. Tracheostomy had to be removed. Bedside bronchoscopy was done. Large blood loss was removed. Was put back on the ventilator/intubated. Required FFP. November 14: ICU. Patient had no bleeding around the tracheostomy site. Patient had desaturated. Tracheostomy had to be removed. The television announcer, surgeon, [email or web address] the bedside. Bronchoscopy was done. Blood was removed from the trachea and the bronchus. Patient put back on the ventilator. Currently 50/10. Drips include fentanyl, propofol, cleviprex. Given FFP. Review of systems: Intubated. Anticoagulation obviously has been discontinued. younger daughter the bedside. Updated. November 15: ICU. Ventilator: 60/90. Drips included propofol and fentanyl. Telemetry: Sinus rhythm. 2 feeding at 10 mL an hour. Another daughter the bedside. November 16: ICU. 2 feeding at 10 mL an hour. Ventilator: 50/8. Drips include propranolol, factor. Since patient cannot be anticoagulated at the present time. [place] filter being ordered. November 17: ICU. Ventilator: FiO2 50 and a PEEP of 10. 2 feeding at 10 mL an hour. Drips include fentanyl, propofol, Nimbex. Telemetry shows sinus rhythm. Patient seen by Dr. Larsen from vascular.: Recommended No IVC filter. Following revision of tracheostomy to resume adequate ventilation. Patient going in tomorrow for revision of tracheostomy by Dr. Love. November 18: ICU. Ventilator: 50/12. Current drips include fentanyl, propofol, Nimbex. Tracheostomy rescheduled for tomorrow. 2 feeding to be held after midnight. Hold Lovenox. November 19: ICU. Patient had tracheostomy revision done today. Ventricular: FiO2 70 PEEP of 12. Drips include fentanyl, propofol, cleviprex. Does occasionally open his eyes. Feeding is due to be restarted today. IV anidulafungin admitted because of Bibi in the sputum November 20: ICU. Ventilator: 45/10. FiO2 and PEEP was reduced today. 2 feeding being tolerated at 10 mL an hour. Drips include fentanyl, Precedex, cleviprex. Daughter at the bedside. Patient is also tolerating Lovenox. November 21: ICU. Ventilator FiO2 45 PEEP of 8. Drips include fentanyl, propofol, cleviprex. Telemetry: Sinus rhythm. 2 feeding November 22: ICU. This morning patient started oozing around the tracheostomy site. Bedside bronchoscopy was done large amount of blood clots was extracted. Dr. Love resecured the tracheostomy. Lovenox discontinued. Vascular service informed about placement of Gardner filter. Ventilator: FiO2 100 a PEEP of 14. Current drips include fentanyl, propofol, Nimbex. 2 feeding at 10 mL an hour Review of systems: Patient intubated Active Medications Acetaminophen (Acetaminophen Tab 325 Mg Tab) 650 mg PO Q6HR PRN PRN Reason: Mild Pain or Fever > 100.5 Last Admin: 11/20/21 23:56 Dose: 650 mg Documented by: Albuterol Sulfate (Albuterol Hfa Inhaler) 2 puff INHALATION RT-QID PRN PRN Reason: Shortness Of Breath Last Admin: 11/14/21 20:22 Dose: 2 puff Documented by: Artificial Tears (Artificial Tears-Hypromellose Drops 15 Ml Btl) 2 drops BOTH EYES Q4HR [facility] Last Admin: 11/22/21 12:01 Dose: 2 drops Documented by: Ascorbic Acid (Ascorbic Acid 500 Mg Tab) 1,000 mg PO DAILY [facility] Last Admin: 11/22/21 08:10 Dose: 1,000 mg Documented by: Bisacodyl (Bisacodyl 10 Mg Supp) 10 mg RECTAL BID [facility] Last Admin: 11/22/21 07:57 Dose: Not Given Documented by: Chlorhexidine Gluconate (Chlorhexidine Gluconate 15 Ml Cup) 15 ml MUCOUS MEM BID [facility] Last Admin: 11/22/21 08:09 Dose: 15 ml Documented by: Cholecalciferol (Cholecalciferol 25 Mcg (1000 Iu) Tablet) 25 mcg PO DAILY [facility] Last Admin: 11/22/21 08:10 Dose: 25 mcg Documented by: Dexamethasone Sodium Phosphate (Dexamethasone Sod Phosphate 10 Mg/Ml 1 Ml Vial) 6 mg IVP BID [facility] Last Admin: 11/22/21 08:10 Dose: 6 mg Documented by: Docusate Sodium (Docusate Oral Soln 100 Mg/10 Ml Cup) 100 mg PO BID [facility] Last Admin: 11/22/21 07:58 Dose: Not Given Documented by: Furosemide (Furosemide 10 Mg/Ml 4 Ml Vial) 40 mg IV DAILY [facility] Last Admin: 11/22/21 08:10 Dose: 40 mg Documented by: Hydralazine HCl (Hydralazine Hcl 20 Mg/Ml 1 Ml Vial) 20 mg IVP Q4HR PRN PRN Reason: Blood Pressure - High SBP >160 Last Admin: 11/19/21 02:30 Dose: 20 mg Documented by: Propofol 1,000 mg/ IV Solution 100 mls @ 0 mls/hr IV .Q0M [facility]; Protocol Last Admin: 11/22/21 11:59 Dose: 40 mcg/kg/min, 30.552 mls/hr Documented by: Fentanyl Citrate 2,500 mcg/ (Sodium Chloride) 250 mls @ 4.082 mls/hr IV .Q24H [facility]; Protocol Last Admin: 11/22/21 14:23 Dose: 0.5 mcg/kg/hr, 4.082 mls/hr Documented by: Clevidipine 25 mg/ IV Solution 50 mls @ 2 mls/hr IV .Q24H [facility]; Protocol Last Titration: 11/22/21 12:41 Dose: 0 mg/hr, 0 mls/hr Documented by: Anidulafungin 100 mg/ Sodium (Chloride) 100 mls @ 84 mls/hr IVPB DAILY@1200 [facility] Last Admin: 11/22/21 11:59 Dose: 84 mls/hr Documented by: Cisatracurium Besylate 200 mg/ (Sodium Chloride) 200 mls @ 7.638 mls/hr IV .Q24H [facility]; Protocol Last Titration: 11/22/21 13:35 Dose: 1 mcg/kg/min, 7.638 mls/hr Documented by: Propofol 1,000 mg/ IV Solution 100 mls @ 7.638 mls/hr IV .Q13H6M [facility] Last Admin: 11/22/21 12:39 Dose: Not Given Documented by: Tranexamic Acid 1,000 mg/ (Sodium Chloride) 260 mls @ 32.5 mls/hr IV ONCE ONE Stop: 11/22/21 17:54 Last Admin: 11/22/21 12:30 Dose: Not Given Documented by: Insulin Aspart (Insulin Aspart (Novolog) 100 Unit/Ml Vial) 0 unit SQ Q6HR [facility]; Protocol Last Admin: 11/22/21 12:01 Dose: 4 unit Documented by: Insulin Detemir (Insulin Detemir (Levemir) 100 Unit/Ml Syr) 24 unit SQ [facility] Last Admin: 11/21/21 22:20 Dose: 24 unit Documented by: Lactulose (Lactulose 20 Gm/30 Ml Cup) 10 gm PO BID [facility] Last Admin: 11/22/21 07:58 Dose: Not Given Documented by: Metoprolol Tartrate (Metoprolol Tartrate 50 Mg Tab) 50 mg PO BID [facility] Last Admin: 11/22/21 08:10 Dose: 50 mg Documented by: Miscellaneous Information (Potassium Replacement Protocol 1 Each Misc) 1 each MISCELLANE DAILY PRN; Protocol PRN Reason: Per Protocol Pantoprazole Sodium (Pantoprazole 40 Mg/10 Ml Vial) 40 mg IVP DAILY [facility] Last Admin: 11/22/21 08:10 Dose: 40 mg Documented by: Pregabalin (Pregabalin 100 Mg Cap) 200 mg PO BID [facility] Last Admin: 11/22/21 08:10 Dose: 200 mg Documented by: Sertraline HCl (Sertraline 50 Mg Tab) 50 mg PO DAILY [facility] Last Admin: 11/22/21 08:10 Dose: 50 mg Documented by: Zinc Sulfate (Zinc Sulfate 220 Mg Cap) 220 mg PO DAILY [facility] Last Admin: 11/22/21 08:10 Dose: 220 mg Documented by: Social history: Patient is on Social Security. Does not smoke or drink alcohol. Patient's carlos leo family lives with him. Family history: Father at the age of 40 with heart attack Physical examination: VITAL SIGNS: 68, 30, 104/58, 100% on the ventilator GENERAL: Laying in bed, . PEG tube . Tracheostomy tube. LUNGS: Respiratory rate increased,. PSYCH: Unable to assess Rest of the exam per nursing and pulmonary INVESTIGATIONS, reviewed in the clinical context: November 22: White count 8 hemoglobin 9.1 platelets 221 potassium 3.5 creatinine 0.44. Pro-calcitonin 0.21 November 21: White count 9.9 hemoglobin 10.3 platelets 260 potassium 3.2 creatinine 0.42 November 20: White count 10.3 hemoglobin 10.7 potassium 3.5 crit 0.43 November 19: White count 9.3 hemoglobin 10.8 potassium 3.8 creatinine 0.4 November 18: White count 14.9 hemoglobin 10.7 potassium 4.2 creatinine 0.49 Blood culture positive for Staphylococcus epidermidis/coagulates negative. Sputum culture: MSSA, Bibi albicans November 17: White count 16.9 hemoglobin 11.1 potassium 3.3 creatinine 0.4 November 16: White count 17 hemoglobin 8.1 potassium 3.2 creatinine 0.5 to October 28: D-dimer 13.4 to October 26: D-dimer 8.48 CRP 24 Chest CTA [October 26: biLateral pulmonary embolism Doppler ultrasound lower extremity: Negative for DVT October 24: White count 9.7 hemoglobin 15.3 platelets 221 d-dimer 1.93 progression 4.2 creatinine 0.71 CRP 5.5 pro-calcitonin 0.08 White count 9.9 hemoglobin 16 platelets 234 d-dimer 0.98 sodium 141 potassium 3.4 creatinine 0.81 Lactic acid 2.9 LDH 1422 CRP 7.5 EKG tracing personally reviewed by me-normal sinus rhythm. Nonspecific ST segment changes. Chest x-ray film personally reviewed by me-bilateral infiltrates Assessment and plan: -Acute severe COVID 19 pneumonitis in a patient who did not take the COVID-19 vaccine: Slow to respond Dexamethasone, vitamin C, vitamin D, zinc. outside the window for Remdesivir. -Acute hypoxic respiratory failure from COVID-19: Slow to respond intubated October 30. FiO2 45/10 -Active bleeding around tracheostomy into the trachea and lungs. Status post bronchoscopy. Evacuation of large amounts of blood clot. Tracheostomy removed. Patient reintubated. revision tracheostomy tube - November 19. Lovenox was resumed. November 22: At the tracheostomy site: re- bleeding with blood clots followed by bronchoscopy. Revision of tracheostomy done. -Bilateral pulmonary embolism secondary to COVID-19 Eliquis -discontinued because of bleeding. No Gardner filter per vascular. Lovenox resumed after revision tracheostomy. Lovenox discontinued: November 22 -Essential hypertension Lopressor 50 mg twice a day, -Diabetes mellitus type 2, on oral hypoglycemic, uncontrolled with hyperglycemia Levemir 24 units daily at bedtime. Follow Accu-Cheks -Chronic insomnia for medical conditions Elavil 50 mg daily at bedtime -Hyperlipidemia TriCor 48 mg daily -Hypoalbuminemia Acute phase reactant -Obstructive sleep apnea On CPAP at home -Pneumomediastinum and subcutis emphysema complications of COVID-19/pneumonia. - right upper apical pneumothorax less than 5%. -Diabetic peripheral neuropathy Lyrica 200 mg twice daily -Full code Bleeding again around the tracheostomy site with blood clots. Bedside bronchoscopy and revision of tracheostomy. Drips include fentanyl, propofol, Nimbex. 2 feeding at 10 mL an hour. Vascular reconsulted for placement of [place] filter.
[2021-11-22] MEDS: ALBUTEROL HFA INHALER INHALATION PRN (15:39)
--- NOTE | 2021-11-22 16:34 | P.PN ---
Subjective Progress Note Date: 11/22/21 Principal diagnosis: Pneumonia, rash, leukocytosis Patient is a 61-year male admitted to the hospital October 23, 2021 patient diagnosed with COVID-19 pneumonia did have a respiratory failure requiring intubation failed to be extubated status post trach and PEG on November 10, 2021 patient also have a component of secondary to pneumonia with MSSA patient has received more than 2 weeks course of Zosyn which was discontinued 11/17/2021 because of rash. On today's evaluation that is 11/22/2021 the patient is afebrile today, patient is hemodynamically stable not requiring any pressor support, the patient FiO2 is up to 50 % however no significant purulent secretion through the ET reported by nursing staff, patient been tolerating his tube feeds and no diarrhea has been reported Objective - Vital Signs Vital signs: Vital Signs Temp 99.6 F 11/22/21 12:00 Pulse 61 11/22/21 14:00 Resp 30 H 11/22/21 14:00 BP 105/66 11/22/21 14:00 Pulse Ox 100 11/22/21 14:00 Intake & Output 11/21/21 11/22/21 11/22/21 18:59 06:59 18:59 Intake Total 9250.415 0475.559 669.766 Output Total 4937 586 1185 Balance -3693.704 519.559 -515.234 Weight 127.3 kg Intake: IV 230 276 207 0.9 Normal Saline @ 20 mL 200 240 180 /hr KVO Pressure bag 30 36 27 Intake, IV Titration 973.296 409.559 372.766 Amount Anidulafungin 100 mg In 100 100 Sodium Chloride 0.9% 100 ml @ 84 mls/hr IVPB DAILY @1200 [facility] Rx#:[id number] Cisatracurium 200 mg In 77.144 Sodium Chloride 0.9% 180 ml @ 1 MCG/KG/MIN 7.638 mls/hr IV .Q24H [facility] Rx#: [id number] Clevidipine Butyrate 25 336.933 185.200 42.8 mg In Empty Bag 1 bag @ 1 MG/HR 2 mls/hr IV .Q24H [facility] Rx#:[id number] Dexmedetomidine/0.9% NaCl 161.280 200.000 (Pmx) 400 mcg In Empty Bag 1 bag @ 0.2 MCG/KG/HR 6.525 mls/hr IV .[id number] [facility] Rx#:[id number] fentaNYL (PF) 2,500 mcg 131.655 24.359 152.822 In Sodium Chloride 0.9% 200 ml @ 0.5 MCG/KG/HR 4. 082 mls/hr IV .Q24H [facility] Rx#:[id number] propofoL 1,000 mg In 243.428 Empty Bag 1 bag @ Titrate IV .Q0M [facility] Rx#: [id number] Tube Feeding 40 330 90 Other 90 Output: Urine 4935 585 1184 Stool 2 1 1 Other: Voiding Method Indwelling Catheter Indwelling Catheter Indwelling Catheter # Bowel Movements 1 1 ABP, PAP, CO, CI - Last Documented Arterial Blood Pressure 95/57 - Exam GENERAL DESCRIPTION: Middle-age male intubated on the vent RESPIRATORY SYSTEM: Unlabored breathing , decreased breath sounds at bases HEART: S1 S2 regular rate and rhythm ,no loud murmurs ABDOMEN: Soft , no tenderness EXTREMITIES: No edema feet - Labs CBC & Chem 7: 11/22/21 04:40 11/22/21 13:51 Labs: Abnormal Lab Results - Last 24 Hours (Table) 11/21/21 11/21/21 11/21/21 Range/Units 18:02 23:30 23:31 RBC (4.30-5.90) m/uL Hgb (13.0-17.5) gm/dL Hct (39.0-53.0) % ABG pH (7.35-7.45) ABG pCO2 (35-45) mmHg ABG pO2 (83-108) mmHg ABG HCO3 (21-25) mmol/L ABG Total CO2 (19-24) mmol/L Potassium 3.1 L (3.5-5.1) mmol/L Chloride (98-107) mmol/L Carbon Dioxide (22-30) mmol/L Creatinine (0.66-1.25) mg/dL Glucose (74-99) mg/dL POC Glucose (mg/dL) 172 H 151 H (75-99) mg/dL Calcium (8.4-10.2) mg/dL C-Reactive Protein (<1.0) mg/dL Procalcitonin (0.02-0.09) ng/mL 11/22/21 11/22/21 11/22/21 Range/Units 04:40 04:40 04:40 RBC 2.75 L (4.30-5.90) m/uL Hgb 9.1 L (13.0-17.5) gm/dL Hct 27.4 L (39.0-53.0) % ABG pH (7.35-7.45) ABG pCO2 (35-45) mmHg ABG pO2 (83-108) mmHg ABG HCO3 (21-25) mmol/L ABG Total CO2 (19-24) mmol/L Potassium (3.5-5.1) mmol/L Chloride 97 L (98-107) mmol/L Carbon Dioxide 39 H (22-30) mmol/L Creatinine 0.44 L (0.66-1.25) mg/dL Glucose 159 H (74-99) mg/dL POC Glucose (mg/dL) (75-99) mg/dL Calcium 8.1 L (8.4-10.2) mg/dL C-Reactive Protein 4.3 H (<1.0) mg/dL Procalcitonin 0.21 H (0.02-0.09) ng/mL 11/22/21 11/22/21 11/22/21 Range/Units 05:44 05:56 06:10 RBC (4.30-5.90) m/uL Hgb (13.0-17.5) gm/dL Hct (39.0-53.0) % ABG pH 7.50 H (7.35-7.45) ABG pCO2 52 H (35-45) mmHg ABG pO2 70 L (83-108) mmHg ABG HCO3 40 H* (21-25) mmol/L ABG Total CO2 42 H (19-24) mmol/L Potassium (3.5-5.1) mmol/L Chloride (98-107) mmol/L Carbon Dioxide (22-30) mmol/L Creatinine (0.66-1.25) mg/dL Glucose (74-99) mg/dL POC Glucose (mg/dL) 142 H 157 H (75-99) mg/dL Calcium (8.4-10.2) mg/dL C-Reactive Protein (<1.0) mg/dL Procalcitonin (0.02-0.09) ng/mL 11/22/21 Range/Units 11:33 RBC (4.30-5.90) m/uL Hgb (13.0-17.5) gm/dL Hct (39.0-53.0) % ABG pH (7.35-7.45) ABG pCO2 (35-45) mmHg ABG pO2 (83-108) mmHg ABG HCO3 (21-25) mmol/L ABG Total CO2 (19-24) mmol/L Potassium (3.5-5.1) mmol/L Chloride (98-107) mmol/L Carbon Dioxide (22-30) mmol/L Creatinine (0.66-1.25) mg/dL Glucose (74-99) mg/dL POC Glucose (mg/dL) 185 H (75-99) mg/dL Calcium (8.4-10.2) mg/dL C-Reactive Protein (<1.0) mg/dL Procalcitonin (0.02-0.09) ng/mL Microbiology - Last 24 Hours (Table) 11/20/21 20:45 Gram Stain - Preliminary Sputum Sputum Culture - Preliminary Presumptive Staph aureus Bibi albicans 11/17/21 15:15 Blood Culture - Preliminary Blood No Growth after 96 hours 11/17/21 15:35 Blood Culture - Preliminary Blood No Growth after 96 hours Assessment and Plan (1) Fever Current Visit: Yes Status: Acute Code(s): R50.9 - FEVER, UNSPECIFIED SNOMED Code(s): 875424503 (2) Rash Current Visit: Yes Status: Acute Code(s): R21 - RASH AND OTHER NONSPECIFIC SKIN ERUPTION SNOMED Code(s): 670721956 (3) COVID-19 Current Visit: Yes Status: Acute Code(s): U07.1 - COVID-19 SNOMED Code(s): 690045108 Plan: 1-Patient with rash likely related to Zosyn which has been discontinued rash has resolved. 2patient with a component of MSSA pneumonia has received more than 2 weeks of IV antibiotic therapy cefepime discontinued we will continue to monitor the patient closely off antibiotic. 3elevated white count question of possible oropharyngeal candidiasis patient to continue Eraxis White count has normalized 4-patient did have a low-grade fever , the patient feels subsequently has resolved, patient did have normal white count is mildly elevated and the sputum is now showing staph aureus again possible MSSA. Add cefazolin and see clinical response
[2021-11-22 17:53] LABS: Glucose,Whole Blood 119 mg/dL (75-99)
[2021-11-22] MEDS: INSULIN DETEMIR (LEVEMIR) 100 UNIT/ML SYR SQ SCH (21:00)
[2021-11-22 23:47] LABS: Glucose,Whole Blood 145 mg/dL (75-99)
[2021-11-23] MEDS: INSULIN ASPART (NovoLOG) 100 UNIT/ML VIAL SQ SCH ×4 (00:06→18:03)
[2021-11-23] MEDS: ARTIFICIAL TEARS-HYPROMELLOSE DROPS 15 ML BTL BOTH EYES SCH ×6 (00:06→20:08)
[2021-11-23] MEDS: CLEVIDIPINE BUTYRATE 25 MG in EMPTY BAG 1 BAG IV SCH ×9 (00:08→23:45)
[2021-11-23] MEDS: CISATRACURIUM 200 MG in SODIUM CHLORIDE 0.9% 180 ML IV SCH ×3 (04:38→18:45)
[2021-11-23] MEDS: fentaNYL (PF) 2,500 MCG in SODIUM CHLORIDE 0.9% 200 ML IV SCH ×2 (05:15→15:06)
[2021-11-23 05:32] LABS: ABG Base Excess 10.5 mmol/L; ABG HCO3 34 mmol/L (21-25); ABG Oxygen Saturation 98.1 % (94-97); ABG PCO2 48 mmHg (35-45); ABG PH 7.47 (7.35-7.45); ABG PO2 96 mmHg (83-108); ABG TCO2 36 mmol/L (19-24); Allen Test Performed? Yes
[2021-11-23 05:44] LABS: Glucose,Whole Blood 160 mg/dL (75-99)
[2021-11-23 06:06] LABS: HCT 27.4 % (39.0-53.0); HGB 8.6 gm/dL (13.0-17.5); Hypochromasia Moderate; MCH 32.7 pg (25.0-35.0); MCHC 31.5 g/dL (31.0-37.0); MCV 103.7 fL (80.0-100.0); Macrocytosis Moderate; Platelet Count 211 k/uL (150-450); RBC 2.64 m/uL (4.30-5.90); RDW 15.7 % (11.5-15.5); WBC 13.5 k/uL (3.8-10.6)
[2021-11-23 06:25] LABS: ALT 54 U/L (4-49); AST 24 U/L (17-59); African American GFR (CKD) >90 (>60 ml/min/1.73 sqM); Albumin 2.6 g/dL (3.5-5.0); Alkaline Phosphatase 75 U/L (38-126); Anion Gap 6 mmol/L; Blood Urea Nitrogen 15 mg/dL (9-20); Calcium 7.9 mg/dL (8.4-10.2); Carbon Dioxide 31 mmol/L (22-30); Chloride 98 mmol/L (98-107); Glucose 153 mg/dL (74-99); Non-African American GFR(CKD) >90 (>60 ml/min/1.73 sqM); Potassium 3.9 mmol/L (3.5-5.1); Sodium 135 mmol/L (137-145); Total Bilirubin 1.1 mg/dL (0.2-1.3); Total Protein 5.3 g/dL (6.3-8.2)
[2021-11-23] MEDS: ASCORBIC ACID 500 MG TAB PO SCH (08:14)
[2021-11-23] MEDS: CHLORHEXIDINE GLUCONATE 15 ML CUP MUCOUS MEM SCH ×2 (08:14→20:05)
[2021-11-23] MEDS: ZINC SULFATE 220 MG CAP PO SCH (08:14)
[2021-11-23] MEDS: CHOLECALCIFEROL 25 MCG (1000 IU) TABLET PO SCH (08:14)
[2021-11-23] MEDS: METOPROLOL TARTRATE 50 MG TAB PO SCH ×2 (08:14→21:02)
[2021-11-23] MEDS: PREGABALIN 100 MG CAP PO SCH ×2 (08:14→20:04)
[2021-11-23] MEDS: SERTRALINE 50 MG TAB PO SCH (08:14)
[2021-11-23] MEDS: PANTOPRAZOLE 40 MG/10 ML VIAL IVP SCH (08:14)
[2021-11-23] MEDS: hydrALAZINE HCL 20 MG/ML 1 ML VIAL IVP PRN ×2 (08:15→21:11)
[2021-11-23] MEDS: FUROSEMIDE 10 MG/ML 4 ML VIAL IV SCH (08:15)
[2021-11-23] MEDS: DEXAMETHASONE SOD PHOSPHATE 10 MG/ML 1 ML VIAL IVP SCH ×2 (08:15→20:04)
[2021-11-23] MEDS: bisacodyL 10 MG SUPP RECTAL SCH ×2 (08:44→20:06)
[2021-11-23] MEDS: LACTULOSE 20 GM/30 ML CUP PO SCH ×2 (08:44→20:08)
[2021-11-23] MEDS: DOCUSATE ORAL SOLN 100 MG/10 ML CUP PO SCH ×2 (08:44→20:06)
[2021-11-23] MEDS ORDERED: LIDOCAINE 1% INJ 10MG/ML (20 ML MDV) ONE (09:21)
--- NOTE | 2021-11-23 09:36 | XR ---
EXAMINATION TYPE: XR chest 1V portable DATE OF EXAM: 11/23/2021 COMPARISON: 11/22/2021 HISTORY: Shortness of breath TECHNIQUE: Single frontal view of the chest is obtained. FINDINGS: Postsurgical change overlying the soft tissue the neck and tracheostomy tube and central l ine stable. Diffuse bilateral predominantly interstitial infiltrates are stable. Small right pleural effusion and left pleural effusion stable. Hypertrophic changes of the spine. Heart size stable. IMPRESSION: Bilateral infiltrate and pleural effusion stable.
[2021-11-23] MEDS ORDERED: LIDOCAINE 1% INJ 10MG/ML (20 ML MDV) SQ ONE ×3 (10:07→10:25)
[2021-11-23] MEDS ORDERED: IOPAMIDOL-250 100ML BTL IV ONE (10:15)
[2021-11-23] MEDS ORDERED: IV FLUID CONTINUATION 1,000 ML IV ONE (10:16)
--- NOTE | 2021-11-23 11:07 | IR ---
EXAMINATION TYPE: IR IVC filter placement DATE OF EXAM: 11/23/2021 COMPARISON: NONE HISTORY: Fluoroscopy time. Fluoroscopy was provided to the referring clinician.
--- NOTE | 2021-11-23 11:30 | P.OP ---
Date of Procedure: 11/23/21 Preoperative Diagnosis: Pulmonary embolism with relative contraindication to anticoagulation. Postoperative Diagnosis: Same Procedure(s) Performed: #1: Ultrasound-guided cannulation right femoral vein. #2: Right iliac venogram and inferior venacavogram. #3 fluoroscopically guided placement of IVC filter, [place]. Anesthesia: GUILHERME Surgeon: Remy Pimentel Estimated Blood Loss (ml): 2 Pathology: none sent Condition: stable Disposition: no change Indications for Procedure: Patient is a 61-year-old male who presented with shortness of breath and was found be suffering from Covid 19-related pneumonia. He was also found to be suffering from bilateral pulmonary emboli found on CT angiography. The patient eventually required intubation and subsequently has undergone tracheostomy. Bleeding from the tracheostomy has been experienced necessitating operative evaluation/control. Because the patient's current bedbound status, history of pulmonary emboli and bleeding from surgical wound the patient is thought to be a poor candidate for continuation of anticoagulation and IVC filter was recommended. Description of Procedure: Patient was brought to special procedure suite. Both groins were sterilely prepped and draped in usual manner. Utilizing ultrasound the right common femoral vein was identified. This was normally compressible and demonstrated no signs of venous thrombotic change. 1% Xylocaine was utilized for local anesthesia tissues overlying the femoral vein. Through this anesthetized area and with the aid of ultrasound a multipurpose needle was utilized to cannulate the vein. Once cannulated Softip guidewire is advanced into the vein. The needle was withdrawn and a 6-Tamazight sheath was placed. A right iliac venogram and inferior venacavogram was performed. This demonstrated both the iliac and caval segments to be free of any thrombus. The cava measured to less than 28 mm. Guidewire was readvanced through the sheath and the sheath was then withdrawn. A [place] filter sheath and dilator were advanced over the guidewire. The guidewire and dilator withdrawn and the filter advanced through the sheath and deployed at the L2-L3 interspace. Completion venogram demonstrated the filter to be in good position without evidence of complication. The sheath was then withdrawn and pressure was held at the puncture site until all evidence of bleeding ceased. Patient tolerated the procedure well and was returned to the ICU in stable condition.
[2021-11-23 11:31] LABS: Glucose,Whole Blood 170 mg/dL (75-99)
[2021-11-23] MEDS: ANIDULAFUNGIN 100 MG in SODIUM CHLORIDE 0.9% 100 ML IVPB SCH (12:11)
--- NOTE | 2021-11-23 12:46 | P.PN ---
Subjective Progress Note Date: 11/23/21 Principal diagnosis: Acute COVID-19 pneumonia 61-year-old male patient with past medical history of diabetes mellitus type 2 with diabetic neuropathy, hypertension, hyperlipidemia, previous history of CVA, rheumatoid arthritis, obstructive sleep apnea S/P UPPP, history of right eye melanoma with previous surgeries, BPH with previous TURP, chronic lower extremity edema, cellulitis, gout, presented to the emergency department on 10/23/2021 at 240 3 in the morning with complaints of severe shortness of breath, cough, congestion. Patient states he has had symptoms since October 09, initially was tested via rapid COVID-19 PCR test which was negative however the send out PCR test came back positive. He states over the last 2 weeks his symptoms continue to worsen, he feels weak, short of breath, complains of cough and chest congestion. No chest pain. He has not been vaccinated against COVID- 19. He does endorse fever, malaise, nausea, abdominal pain. His chest x-ray showed moderate pulmonary testicular edema. His lab work has been reviewed showing white blood cell count of 9.9, hemoglobin 16, platelet count is 234, neutrophils 8.1, lymphocyte count is 1.49, INR is 1.1, sodium is 141, potassium is 3.4, chloride is 101, CO2 is 23, BUN is 23 creatinine 0.81, plasma lactic acid was 2.9 and is currently down to 1.7, LDH was 1422, proBNP was 185, LFTs were within normal limits. Patient is currently requiring 8 L of oxygen his pulse ox is 96%, he still has a congested cough, he has been afebrile, he is short of breath with any exertion. Denies any hemoptysis or chest discomfort. Has been started on Decadron 6 mg daily, he was given IV hydration with 1 L b olus, and currently receiving 0.9 normal saline at a rate of 1:30 ML per hour, his lactic acid has improved. Patient is outside the window for Remdesivir. On 11/08/2021 patient seen in follow-up in the intensive care unit, patient was transferred to the intensive care on 10/29/2022, and was intubated in next day on 10/30/2022. He currently remains intubated, sedated and paralyzed, he is currently on assist control mode of ventilation with a rate of 32, tidal arm is 450, FiO2 of 55% and PEEP of 16. This morning's blood gas has been reviewed showing pO2 of 59, pCO2 of 42, and pH of 7.5 one, this was done on the above- mentioned event stated settings. Patient is currently on 0.9 at 20 ML per hour, fentanyl infusion at 2 mics per kilo per minute, diprivan at 60 mics per kilo per minute, Nimbex at 2 mics per kilo per minute, he is tolerating his tube feedings, he is on vital high-protein at 23 with a goal of 23 and standard water flushes, for the past few days patient was given a paralytic holiday's however he does not tolerate them well, desaturates, and requires to be re-paralyzed, yesterday paralytic holiday was not attempted. His chest x-ray today shows bilateral multifocal increased opacities consistent with a COVID 19 infection and ARDS, no significant change from one day earlier. Hemodynamically patient has been stable, he remains in sinus mechanism, not requiring any vasopressor support, he remains on antibiotics in the form of Zosyn for positive blood cultures, his last set of blood cultures from 11/06/2021 showed 2 coagulase- negative staph organisms, blood culture from the same day showed no growth, his sputum culture showed few PMNs, moderate gram-positive cocci. Patient has been afebrile, hemodynamically he has been stable. Abdomen is soft, he is tolerating tube feedings. He is generally swollen. Overall says he transferred to the intensive care unit his weight is up by at least 7.4 kg. Patient has received intermittent doses of diuretics. He currently remains on Decadron 6 mg daily, she is on Eliquis 5 mg twice daily for evidence of PE that was diagnosed during this admission, yesterday he received a dose of IV Lasix 60 mg, however she still and +205 mL net fluid balance over the last 24 hours. He remains on multivitamins. His labs have been reviewed, his white blood cell count is 7.5, hemoglobin is 10.0, sodium is 136, potassium 3.5, chloride is 102, CO2 30, BUN is 20, creatinine 0.51, his last pro-calcitonin from 11/06/2021 was 0.31, which was actually increasing from the previous value of 0.12. And from the admission value of 0.08. On 11/23/2021 patient seen in follow-up in the intensive care unit, yesterday patient had a major rebleeding episode from his surgical wound at the tracheostomy site. Patient was bleeding into his airways, patient was becoming hypoxic developing high peak airway pressures and was becoming extremely difficult to ventilate. Patient had emergent bronchoscopy with BAL at the bedside, surgery was called to the bedside and revision of tracheostomy was performed at the bedside. Patient was orally intubated with assistance of bronchoscope, significant amount of blood in the oropharynx was encountered. Anesthesiology was also at the bedside assisting with the procedure. Patient had his bleeding finally controlled and was given protamine sulfate, tranexamic acid and the bleeders were also surgically cauterized. His anticoagulation has remained on hold. Patient is currently trached to the vent, with assist-control mode of ventilation with a rate of 30, tidal vital 350, FiO2 50% and PEEP of 10, this morning's blood gas shows pO2 of 96, pCO2 48, pH of 7.47, chest x-ray shows bilateral infiltrates and pleural effusion there is stable, postsurgical changes overlying the soft tissue of the neck and tracheostomy tube and central line are stable. Patient is currently sedated and paralyzed with the program 50 mics per kilo per minute, Nimbex is at 3.5 mics per kilo per hour, Cleviprex is at 18 mg per hour, point and obtain a rate of 20 ML per hour. Fentanyl is at 2 mics per kilo per minute, tube feedings are currently on hold. Today's labs have been reviewed, white blood cell count is 13.5, hemoglobin is 8.6, which is down from 9.1 on yesterday's labs, platelet count is 211, sodium is 135, potassium 3.9, chloride is 98, CO2 is 31, BUN is 15, creatinine 0.43. Pro-calcitonin level is negative at 0.21. Hemodynamic patient is stable, he is requiring Cleviprex infusion for blood pressure control. Patient currently continues on dexamethasone 6 mg twice daily, he is on daily dose of Lasix 40 mg daily, he is on antibiotics in the form of Kefzol and Eraxis per ID service, his sputum cultures were positive for staph aureus, and Bibi albicans, his blood culture from 11/03/2021 showed staph epidermidis and coagulase-negative staph likely skin contaminant. Follow blood cultures have shown no growth. Low-grade fevers overnight with a temp of 99.7F. Lovenox has been discontinued, and vascular surgery is consulted for placement of IVC filter. Patient is scheduled for the procedure today Objective - Vital Signs Vital signs: Vital Signs Temp 98.4 F 11/23/21 12:00 Pulse 75 11/23/21 12:00 Resp 30 H 11/23/21 12:00 BP 136/64 11/23/21 12:00 Pulse Ox 100 11/23/21 12:00 Intake & Output 11/22/21 11/23/21 11/23/21 18:59 06:59 18:59 Intake Total 590.060 4747.007 758.129 Output Total 6135 335 2977 Balance -377.081 676.007 -1091.871 Weight 129 kg Intake: IV 239 293 192 0.9 Normal Saline @ 20 mL 200 210 80 /hr KVO Pressure bag 39 33 12 ceFAZolin 2 gm In Sodium 50 50 Chloride 0.9% 50 ml @ 100 mls/hr IVPB Q8HR [facility] Rx# :[id number] Intake, IV Titration 059.153 1725.007 526.129 Amount Anidulafungin 100 mg In 100 100 Sodium Chloride 0.9% 100 ml @ 84 mls/hr IVPB DAILY @1200 [facility] Rx#:[id number] Cisatracurium 200 mg In 113.297 236.269 192.096 Sodium Chloride 0.9% 180 ml @ 1 MCG/KG/MIN 7.638 mls/hr IV .Q24H [facility] Rx#: [id number] Cisatracurium 200 mg In 21 Sodium Chloride 0.9% 180 ml @ 1.5 MCG/KG/MIN 10.8 mls/hr IV .[id number] [facility] Rx #:[id number] Clevidipine Butyrate 25 42.8 275.066 113.033 mg In Empty Bag 1 bag @ 1 MG/HR 2 mls/hr IV .Q24H [facility] Rx#:[id number] ceFAZolin 2 gm In Sodium 50 Chloride 0.9% 50 ml @ 100 mls/hr IVPB Q8HR [facility] Rx# :[id number] fentaNYL (PF) 2,500 mcg 152.822 122.672 In Sodium Chloride 0.9% 200 ml @ 0.5 MCG/KG/HR 4. 082 mls/hr IV .Q24H [facility] Rx#:[id number] propofoL 1,000 mg In 100 400.000 100 Empty Bag 1 bag @ Titrate IV .Q0M [facility] Rx#: [id number] Tube Feeding 120 70 0 Other 60 40 Output: Urine 2898 718 1471 Stool 1 1 Other: Voiding Method Indwelling Catheter Indwelling Catheter Indwelling Catheter ABP, PAP, CO, CI - Last Documented Arterial Blood Pressure 129/50 - Exam GENERAL EXAM: Trached to the vent, sedated and paralyzed 61-year-old white male, on assist-control mode of ventilation with a rate of 30, tidal volume is 350, FiO2 of 55% and PEEP of 10 HEAD: Normocephalic/atraumatic. EYES: Normal reaction of pupils, equal size. Conjunctiva pink, sclera white. NOSE: Clear with pink turbinates. THROAT: No erythema or exudates. NECK: No masses, no JVD, no thyroid enlargement, no adenopathy. Midline tracheostomy, patient is connected to the ventilator with assist control mode of ventilation. Patient is status post two trach revisions thus far for 2 episodes of major surgical wound bleeding CHEST: No chest wall deformity. Symmetrical expansion. LUNGS: Equal air entry with diffuse crackles CVS: Regular rate and rhythm, normal S1 and S2, no gallops, no murmurs, no rubs ABDOMEN: Soft, nontender. No hepatosplenomegaly, normal bowel sounds, no guarding or rigidity. EXTREMITIES: No clubbing, mild generalized edema, and 1+ lower extremity edema no cyanosis, 2+ pulses and upper and lower extremities. MUSCULOSKELETAL: Muscle strength and tone normal. SPINE: No scoliosis or deformity SKIN: No rashes CENTRAL NERVOUS SYSTEM: Trached to the vent, sedated and paralyzed. No focal deficits, tone is normal in all 4 extremities. - Labs CBC & Chem 7: 11/23/21 05:44 11/23/21 05:44 Labs: Abnormal Lab Results - Last 24 Hours (Table) 11/22/21 11/22/21 11/23/21 Range/Units 17:51 23:45 05:24 WBC (3.8-10.6) k/uL RBC (4.30-5.90) m/uL Hgb (13.0-17.5) gm/dL Hct (39.0-53.0) % MCV (80.0-100.0) fL RDW (11.5-15.5) % ABG pH 7.47 H (7.35-7.45) ABG pCO2 48 H (35-45) mmHg ABG HCO3 34 H (21-25) mmol/L ABG Total CO2 36 H (19-24) mmol/L ABG O2 Saturation 98.1 H (94-97) % Sodium (137-145) mmol/L Carbon Dioxide (22-30) mmol/L Creatinine (0.66-1.25) mg/dL Glucose (74-99) mg/dL POC Glucose (mg/dL) 119 H 145 H (75-99) mg/dL Calcium (8.4-10.2) mg/dL ALT (4-49) U/L Total Protein (6.3-8.2) g/dL Albumin (3.5-5.0) g/dL 11/23/21 11/23/21 11/23/21 Range/Units 05:42 05:44 05:44 WBC 13.5 H (3.8-10.6) k/uL RBC 2.64 L (4.30-5.90) m/uL Hgb 8.6 L (13.0-17.5) gm/dL Hct 27.4 L (39.0-53.0) % MCV 103.7 H (80.0-100.0) fL RDW 15.7 H (11.5-15.5) % ABG pH (7.35-7.45) ABG pCO2 (35-45) mmHg ABG HCO3 (21-25) mmol/L ABG Total CO2 (19-24) mmol/L ABG O2 Saturation (94-97) % Sodium 135 L (137-145) mmol/L Carbon Dioxide 31 H (22-30) mmol/L Creatinine 0.43 L (0.66-1.25) mg/dL Glucose 153 H (74-99) mg/dL POC Glucose (mg/dL) 160 H (75-99) mg/dL Calcium 7.9 L (8.4-10.2) mg/dL ALT 54 H (4-49) U/L Total Protein 5.3 L (6.3-8.2) g/dL Albumin 2.6 L (3.5-5.0) g/dL 11/23/21 Range/Units 11:29 WBC (3.8-10.6) k/uL RBC (4.30-5.90) m/uL Hgb (13.0-17.5) gm/dL Hct (39.0-53.0) % MCV (80.0-100.0) fL RDW (11.5-15.5) % ABG pH (7.35-7.45) ABG pCO2 (35-45) mmHg ABG HCO3 (21-25) mmol/L ABG Total CO2 (19-24) mmol/L ABG O2 Saturation (94-97) % Sodium (137-145) mmol/L Carbon Dioxide (22-30) mmol/L Creatinine (0.66-1.25) mg/dL Glucose (74-99) mg/dL POC Glucose (mg/dL) 170 H (75-99) mg/dL Calcium (8.4-10.2) mg/dL ALT (4-49) U/L Total Protein (6.3-8.2) g/dL Albumin (3.5-5.0) g/dL Microbiology - Last 24 Hours (Table) 11/20/21 20:45 Gram Stain - Final Sputum Sputum Culture - Final Staphylococcus aureus Bibi albicans 11/17/21 15:15 Blood Culture - Preliminary Blood No Growth after 120 hours 11/17/21 15:35 Blood Culture - Preliminary Blood No Growth after 120 hours Assessment and Plan Plan: Assessment: #1. Recurrent bleeding from surgical site around tracheostomy, status post revision of tracheostomy site, reintubation, bronchoscopy 2, please refer to the full operative report on this patient from 11/15/2021 and 11/22/2021. Patient was previously on Eliquis which was discontinued, and was then placed on Lovenox 80 mg twice daily for acute pulmonary embolism diagnosed during this admission. Lovenox has been placed on hold, patient is going for SVC filter placement today #2. Acute hypoxic respiratory failure related to acute COVID-19 related pneumonia, patient presented to the emergency department on 10/23/2021 with 2 week history of symptoms, patient is outside the window for Remdesivir, he is a non-vaccinated adult. Patient was started on Baricitinib in view of worsening hypoxic respiratory failure, on 10/29/2021 transferred to the intensive care unit, and intubated on 10/30/2021. Today on 11/08/2021 patient remains intubated, sedated and paralyzed on assist control mode of ventilation with a rate of 32, tidal arm was 450, FiO2 of 55% and PEEP of 16. Baricitinib has been discontinued in view of positive blood cultures patient is currently covered with Zosyn. Blood cultures have shown coagulase-negative staph, 2 organisms, possibly contamination, however his sputum from 10/30/2021 showed group B strep. Patient has failed paralytic holiday on more than one occasion, currently remains on Nimbex, we will attempt to wean it again after diuresing the patient #3. Left lung collapse secondary to mucus plugging and blood clots requiring therapeutic bronchoscopy and lavage of the left lung extraction of the blood clots from the left knee mainstem bronchus left upper lobe bronchus lingula and left lower lobe bronchus and right upper lobe bronchus and right middle lobe bronchus with complete reexpansion of the left lung post procedure this was done on 11/18/2021 #4. Pneumomediastinum and subcutaneous emphysema, complication of COVID-19 pneumonia, resolved #5. Tiny right apical pneumothorax, resolved #6. Acute blood loss anemia related to bleeding from the surgical site around tracheostomy, and anticoagulation, currently off anticoagulation, it remains hemodynamically stable #7. Acute pulmonary embolism within the lower lobe, right artery right greater than left, started on Eliquis on 10/26/2021 #8. Diabetes mellitus type 2 with diabetic neuropathy #9. Hypertension #10. Hyperlipidemia #11. BPH with previous history of TURP #12. Obstructive sleep apnea with previous history of UPPP #13. History of right eye melanoma with multiple surgeries #14. Previous history of CVA #15. Rheumatoid arthritis #16. History of gout #17. Previous history of MRSA infection in the wound on his back #18. Mild lactic acidosis, improved with IV hydration #19. Elevated inflammatory markers related to acute COVID-19 pneumonia Plan: Today's chest x-ray, blood gases and labs have been reviewed Bleeding has not recurred overnight Continue with current mode of ventilator support Patient's tracheostomy was again revised Continue sedation and paralysis Patient is going for IVC filter placement today SCDs for DVT prophylaxis Patient is off his Eliquis on Lovenox Continue current medical treatment with Decadron, same dose 6 mg twice daily Continue daily dose of Lasix Continue multivitamins We'll follow up with the patient in the postoperative period May resume tube feedings later on today Monitor for any rebleeding around the tracheostomy site Follow-up chest x-ray blood gases, CBC, CMP, inflammatory markers tomorrow and on a daily basis while the patient is on a ventilator We'll continue to follow I performed a history & physical examination of the patient and discussed their management with my nurse practitioner, Linda Giordano. I reviewed the nurse pra ctlauraer's note and agree with the documented findings and plan of care. Lung sounds are positive for dim with diffuse wheezes throughout the lung malone. The findings and the impression was discussed with the patient. I attest to the documentation by the nurse practitioner. Time with Patient: Greater than 30
[2021-11-23] MEDS ORDERED: POTASSIUM BICARBONATE/CIT AC 20 MEQ TABLET.EFF NG-TUBE SCH (13:00)
--- NOTE | 2021-11-23 14:50 | P.PN ---
Subjective Progress Note Date: 11/23/21 CHIEF COMPLAINT: COVID-19 pneumonia HISTORY OF PRESENT ILLNESS: Patient is in the ICU on mechanical ventilation and sedated. Patient had bleeding again at the tracheostomy site due to the Lovenox. He is status post revision of tracheostomy and partial thyroidectomyon 11/22. He also required bronchoscopy with suctioning of blood clots from the airway. Patient had IVC filter placement done today. Patient's Lovenox was discontinued. Patient has had no further bleeding from tracheostomy site. There is 13.5 hemoglobin 8.6 platelets 211 Patient seen and examined with Dr. daniel PHYSICAL EXAM: VITAL SIGNS: Reviewed. GENERAL: Well-developed in no acute distress. HEENT: Head is atraumatic, normocephalic. Tracheostomy site clean dry and intact ABDOMEN: Soft. Nondistended. Nontender. PEG tube site clean dry and intact NEUROLOGIC: Intubated and sedated ASSESSMENT: 1. Acute hypoxic respiratory failure secondary to COVID-19 pneumonia requiring mechanical ventilation 2. Severe protein calorie malnutrition 3. Bilateral pulmonary emboli 4. Bleeding at tracheostomy site status post second tracheostomy revision PLAN: -Continue ICU management and supportive care -Continue tube feeds -Continue to monitor tracheostomy site Physician Vice President Quality Improvement note has been reviewed by physician. Signing provider agrees with the documented findings, assessment, and plan of care. Objective - Vital Signs Vital signs: Vital Signs Temp 98.4 F 11/23/21 12:00 Pulse 57 L 11/23/21 14:00 Resp 30 H 11/23/21 14:00 BP 111/56 11/23/21 14:00 Pulse Ox 100 11/23/21 14:00 Intake & Output 11/22/21 11/23/21 11/23/21 18:59 06:59 18:59 Intake Total 577.464 5821.007 1023.411 Output Total 1184 752 8711 Balance -377.081 676.007 -951.589 Weight 129 kg 129 kg Intake: IV 239 293 238 0.9 Normal Saline @ 20 mL 200 210 120 /hr KVO Pressure bag 39 33 18 ceFAZolin 2 gm In Sodium 50 50 Chloride 0.9% 50 ml @ 100 mls/hr IVPB Q8HR [facility] Rx# :[id number] Intake, IV Titration 177.851 3627.007 665.411 Amount Anidulafungin 100 mg In 100 100 Sodium Chloride 0.9% 100 ml @ 84 mls/hr IVPB DAILY @1200 [facility] Rx#:[id number] Cisatracurium 200 mg In 113.297 236.269 192.096 Sodium Chloride 0.9% 180 ml @ 1 MCG/KG/MIN 7.638 mls/hr IV .Q24H [facility] Rx#: [id number] Cisatracurium 200 mg In 21 Sodium Chloride 0.9% 180 ml @ 1.5 MCG/KG/MIN 10.8 mls/hr IV .[id number] [facility] Rx #:[id number] Clevidipine Butyrate 25 42.8 275.066 119.100 mg In Empty Bag 1 bag @ 1 MG/HR 2 mls/hr IV .Q24H [facility] Rx#:[id number] ceFAZolin 2 gm In Sodium 50 Chloride 0.9% 50 ml @ 100 mls/hr IVPB Q8HR [facility] Rx# :[id number] fentaNYL (PF) 2,500 mcg 152.822 122.672 27.556 In Sodium Chloride 0.9% 200 ml @ 0.5 MCG/KG/HR 4. 082 mls/hr IV .Q24H [facility] Rx#:[id number] propofoL 1,000 mg In 100 400.000 205.659 Empty Bag 1 bag @ Titrate IV .Q0M [facility] Rx#: [id number] Tube Feeding 120 70 20 Other 60 100 Output: Urine 0497 560 2947 Stool 1 1 Other: Voiding Method Indwelling Catheter Indwelling Catheter Indwelling Catheter ABP, PAP, CO, CI - Last Documented Arterial Blood Pressure 102/51 - Labs CBC & Chem 7: 11/23/21 05:44 11/23/21 05:44 Labs: Abnormal Lab Results - Last 24 Hours (Table) 11/22/21 11/22/21 11/23/21 Range/Units 17:51 23:45 05:24 WBC (3.8-10.6) k/uL RBC (4.30-5.90) m/uL Hgb (13.0-17.5) gm/dL Hct (39.0-53.0) % MCV (80.0-100.0) fL RDW (11.5-15.5) % ABG pH 7.47 H (7.35-7.45) ABG pCO2 48 H (35-45) mmHg ABG HCO3 34 H (21-25) mmol/L ABG Total CO2 36 H (19-24) mmol/L ABG O2 Saturation 98.1 H (94-97) % Sodium (137-145) mmol/L Carbon Dioxide (22-30) mmol/L Creatinine (0.66-1.25) mg/dL Glucose (74-99) mg/dL POC Glucose (mg/dL) 119 H 145 H (75-99) mg/dL Calcium (8.4-10.2) mg/dL ALT (4-49) U/L Total Protein (6.3-8.2) g/dL Albumin (3.5-5.0) g/dL 11/23/21 11/23/21 11/23/21 Range/Units 05:42 05:44 05:44 WBC 13.5 H (3.8-10.6) k/uL RBC 2.64 L (4.30-5.90) m/uL Hgb 8.6 L (13.0-17.5) gm/dL Hct 27.4 L (39.0-53.0) % MCV 103.7 H (80.0-100.0) fL RDW 15.7 H (11.5-15.5) % ABG pH (7.35-7.45) ABG pCO2 (35-45) mmHg ABG HCO3 (21-25) mmol/L ABG Total CO2 (19-24) mmol/L ABG O2 Saturation (94-97) % Sodium 135 L (137-145) mmol/L Carbon Dioxide 31 H (22-30) mmol/L Creatinine 0.43 L (0.66-1.25) mg/dL Glucose 153 H (74-99) mg/dL POC Glucose (mg/dL) 160 H (75-99) mg/dL Calcium 7.9 L (8.4-10.2) mg/dL ALT 54 H (4-49) U/L Total Protein 5.3 L (6.3-8.2) g/dL Albumin 2.6 L (3.5-5.0) g/dL 11/23/21 Range/Units 11:29 WBC (3.8-10.6) k/uL RBC (4.30-5.90) m/uL Hgb (13.0-17.5) gm/dL Hct (39.0-53.0) % MCV (80.0-100.0) fL RDW (11.5-15.5) % ABG pH (7.35-7.45) ABG pCO2 (35-45) mmHg ABG HCO3 (21-25) mmol/L ABG Total CO2 (19-24) mmol/L ABG O2 Saturation (94-97) % Sodium (137-145) mmol/L Carbon Dioxide (22-30) mmol/L Creatinine (0.66-1.25) mg/dL Glucose (74-99) mg/dL POC Glucose (mg/dL) 170 H (75-99) mg/dL Calcium (8.4-10.2) mg/dL ALT (4-49) U/L Total Protein (6.3-8.2) g/dL Albumin (3.5-5.0) g/dL Microbiology - Last 24 Hours (Table) 11/20/21 20:45 Gram Stain - Final Sputum Sputum Culture - Final Staphylococcus aureus Bibi albicans 11/17/21 15:15 Blood Culture - Preliminary Blood No Growth after 120 hours 11/17/21 15:35 Blood Culture - Preliminary Blood No Growth after 120 hours
[2021-11-23 17:52] LABS: Glucose,Whole Blood 118 mg/dL (75-99)
--- NOTE | 2021-11-23 18:15 | P.PN ---
Progress Note - Text Progress Note Date: 11/23/21 Chief Complaint: Short of breath This is a pleasant 61-year-old patient, chronic stable medical conditions include diabetes, hypertension, hyperlipidemia, osteoarthritis, peripheral neuropathy, chronic gout. Patient presents with increasing shortness of breath. Cough. Clear sputum. Fever and chills. Tired rundown decrease appetite and diarrhea about 2 times a day. Patient tested positive for COVID-19 on October 09. His initial rapid COVID-19 was negative. In the send out came back positive. Patient did not take the vaccine against COVID-19. He is on 8 L of oxygen this morning. He is outside the window for Remdesivir. Admitted with COVID 19 pneumonitis, acute hypoxic respiratory failure. Started on Decadron. IV fluids. October 26 chest CTA showed bilateral pulmonary embolism. Breathing cord worse in October 30 patient is intubated. Requiring various drips. 2 feeding was started. November 10 patient got a tracheostomy and a PEG tube. Patient subsequently had a large bleed from the tracheostomy site. Desaturated. Tracheostomy had to be removed. Bedside bronchoscopy was done. Large blood loss was removed. Was put back on the ventilator/intubated. Required FFP. November 14: ICU. Patient had no bleeding around the tracheostomy site. Patient had desaturated. Tracheostomy had to be removed. The community engagement leader, surgeon, anesthesia@tibia the bedside. Bronchoscopy was done. Blood was removed from the trachea and the bronchus. Patient put back on the ventilator. Currently 50/10. Drips include fentanyl, propofol, cleviprex. Given FFP. Review of systems: Intubated. Anticoagulation obviously has been discontinued. younger daughter the bedside. Updated. November 15: ICU. Ventilator: 60/90. Drips included propofol and fentanyl. Telemetry: Sinus rhythm. 2 feeding at 10 mL an hour. Another daughter the bedside. November 16: ICU. 2 feeding at 10 mL an hour. Ventilator: 50/8. Drips include propranolol, factor. Since patient cannot be anticoagulated at the present time. [place] filter being ordered. November 17: ICU. Ventilator: FiO2 50 and a PEEP of 10. 2 feeding at 10 mL an hour. Drips include fentanyl, propofol, Nimbex. Telemetry shows sinus rhythm. Patient seen by Dr. Larsen from vascular.: Recommended No IVC filter. Following revision of tracheostomy to resume adequate ventilation. Patient going in tomorrow for revision of tracheostomy by Dr. Love. November 18: ICU. Ventilator: 50/12. Current drips include fentanyl, propofol, Nimbex. Tracheostomy rescheduled for tomorrow. 2 feeding to be held after midnight. Hold Lovenox. November 19: ICU. Patient had tracheostomy revision done today. Ventricular: FiO2 70 PEEP of 12. Drips include fentanyl, propofol, cleviprex. Does occasionally open his eyes. Feeding is due to be restarted today. IV anidulafungin admitted because of Bibi in the sputum November 20: ICU. Ventilator: 45/10. FiO2 and PEEP was reduced today. 2 feeding being tolerated at 10 mL an hour. Drips include fentanyl, Precedex, cleviprex. Daughter at the bedside. Patient is also tolerating Lovenox. November 21: ICU. Ventilator FiO2 45 PEEP of 8. Drips include fentanyl, propofol, cleviprex. Telemetry: Sinus rhythm. 2 feeding November 22: ICU. This morning patient started oozing around the tracheostomy site. Bedside bronchoscopy was done large amount of blood clots was extracted. Dr. Love resecured the tracheostomy. Lovenox discontinued. Vascular service informed about placement of [place] filter. Ventilator: FiO2 100 a PEEP of 14. Current drips include fentanyl, propofol, Nimbex. 2 feeding at 10 mL an hour November 23: ICU. Ventilator: FiO2 100 PEEP of 10. Drips include fentanyl, propofol, Nimbex, cleviprex. Telemetry: Sinus rhythm. IVC filter Cook tulip placed by Dr. Boothe. Review of systems: Patient intubated Active Medications Acetaminophen (Acetaminophen Tab 325 Mg Tab) 650 mg PO Q6HR PRN PRN Reason: Mild Pain or Fever > 100.5 Last Admin: 11/20/21 23:56 Dose: 650 mg Documented by: Albuterol Sulfate (Albuterol Hfa Inhaler) 2 puff INHALATION RT-QID PRN PRN Reason: Shortness Of Breath Last Admin: 11/22/21 15:39 Dose: 2 puff Documented by: Artificial Tears (Artificial Tears-Hypromellose Drops 15 Ml Btl) 2 drops BOTH EYES Q4HR [facility] Last Admin: 11/23/21 16:04 Dose: 2 drops Documented by: Ascorbic Acid (Ascorbic Acid 500 Mg Tab) 1,000 mg PO DAILY [facility] Last Admin: 11/23/21 08:14 Dose: 1,000 mg Documented by: Bisacodyl (Bisacodyl 10 Mg Supp) 10 mg RECTAL BID [facility] Last Admin: 11/23/21 08:44 Dose: Not Given Documented by: Chlorhexidine Gluconate (Chlorhexidine Gluconate 15 Ml Cup) 15 ml MUCOUS MEM BID [facility] Last Admin: 11/23/21 08:14 Dose: 15 ml Documented by: Cholecalciferol (Cholecalciferol 25 Mcg (1000 Iu) Tablet) 25 mcg PO DAILY [facility] Last Admin: 11/23/21 08:14 Dose: 25 mcg Documented by: Dexamethasone Sodium Phosphate (Dexamethasone Sod Phosphate 10 Mg/Ml 1 Ml Vial) 6 mg IVP BID [facility] Last Admin: 11/23/21 08:15 Dose: 6 mg Documented by: Docusate Sodium (Docusate Oral Soln 100 Mg/10 Ml Cup) 100 mg PO BID [facility] Last Admin: 11/23/21 08:44 Dose: Not Given Documented by: Furosemide (Furosemide 10 Mg/Ml 4 Ml Vial) 40 mg IV DAILY [facility] Last Admin: 11/23/21 08:15 Dose: 40 mg Documented by: Hydralazine HCl (Hydralazine Hcl 20 Mg/Ml 1 Ml Vial) 20 mg IVP Q4HR PRN PRN Reason: Blood Pressure - High SBP >160 Last Admin: 11/23/21 08:15 Dose: 20 mg Documented by: Propofol 1,000 mg/ IV Solution 100 mls @ 0 mls/hr IV .Q0M [facility]; Protocol Last Admin: 11/23/21 17:42 Dose: 50 mcg/kg/min, 38.7 mls/hr Documented by: Fentanyl Citrate 2,500 mcg/ (Sodium Chloride) 250 mls @ 4.082 mls/hr IV .Q24H [facility]; Protocol Last Admin: 11/23/21 15:06 Dose: 2 mcg/kg/hr, 16.329 mls/hr Documented by: Clevidipine 25 mg/ IV Solution 50 mls @ 2 mls/hr IV .Q24H [facility]; Protocol Last Titration: 11/23/21 13:00 Dose: 0 mg/hr, 0 mls/hr Documented by: Anidulafungin 100 mg/ Sodium (Chloride) 100 mls @ 84 mls/hr IVPB DAILY@1200 [facility] Last Admin: 11/23/21 12:11 Dose: 84 mls/hr Documented by: Cisatracurium Besylate 200 mg/ (Sodium Chloride) 200 mls @ 7.638 mls/hr IV .Q24H [facility]; Protocol Last Admin: 11/23/21 12:18 Dose: 3.5 mcg/kg/min, 26.733 mls/hr Documented by: Cefazolin Sodium 2 gm/ Sodium (Chloride) 50 mls @ 100 mls/hr IVPB Q8HR [facility] Last Admin: 11/23/21 16:05 Dose: 100 mls/hr Documented by: Insulin Aspart (Insulin Aspart (Novolog) 100 Unit/Ml Vial) 0 unit SQ Q6HR [facility]; Protocol Last Admin: 11/23/21 18:03 Dose: Not Given Documented by: Insulin Detemir (Insulin Detemir (Levemir) 100 Unit/Ml Syr) 24 unit SQ HS [facility] Last Admin: 11/22/21 21:00 Dose: 24 unit Documented by: Lactulose (Lactulose 20 Gm/30 Ml Cup) 10 gm PO BID [facility] Last Admin: 11/23/21 08:44 Dose: Not Given Documented by: Metoprolol Tartrate (Metoprolol Tartrate 50 Mg Tab) 50 mg PO BID [facility] Last Admin: 11/23/21 08:14 Dose: 50 mg Documented by: Miscellaneous Information (Potassium Replacement Protocol 1 Each Misc) 1 each MISCELLANE DAILY PRN; Protocol PRN Reason: Per Protocol Pantoprazole Sodium (Pantoprazole 40 Mg/10 Ml Vial) 40 mg IVP DAILY [facility] Last Admin: 11/23/21 08:14 Dose: 40 mg Documented by: Pregabalin (Pregabalin 100 Mg Cap) 200 mg PO BID [facility] Last Admin: 11/23/21 08:14 Dose: 200 mg Documented by: Sertraline HCl (Sertraline 50 Mg Tab) 50 mg PO DAILY [facility] Last Admin: 11/23/21 08:14 Dose: 50 mg Documented by: Zinc Sulfate (Zinc Sulfate 220 Mg Cap) 220 mg PO DAILY [facility] Last Admin: 11/23/21 08:14 Dose: 220 mg Documented by: Social history: Patient is on Social Security. Does not smoke or drink alcohol. Patient's daughters family lives with him. Family history: Father at the age of 40 with heart attack Physical examination: VITAL SIGNS: 98.1, 52, 30, 105/57, 100% on ventilator GENERAL: Laying in bed, . PEG tube . Tracheostomy tube. LUNGS: Respiratory rate increased,. PSYCH: Unable to assess Rest of the exam per nursing and pulmonary INVESTIGATIONS, reviewed in the clinical context: November 23: White count 13.5 hemoglobin 8.6 potassium 3.9 creatinine 0.43 November 22: White count 8 hemoglobin 9.1 platelets 221 potassium 3.5 creatinine 0.44. Pro-calcitonin 0.21 November 21: White count 9.9 hemoglobin 10.3 platelets 260 potassium 3.2 creatinine 0.42 November 20: White count 10.3 hemoglobin 10.7 potassium 3.5 crit 0.43 November 19: White count 9.3 hemoglobin 10.8 potassium 3.8 creatinine 0.4 November 18: White count 14.9 hemoglobin 10.7 potassium 4.2 creatinine 0.49 Blood culture positive for Staphylococcus epidermidis/coagulates negative. Sputum culture: MSSA, Bibi albicans November 17: White count 16.9 hemoglobin 11.1 potassium 3.3 creatinine 0.4 November 16: White count 17 hemoglobin 8.1 potassium 3.2 creatinine 0.5 to October 28: D-dimer 13.4 to October 26: D-dimer 8.48 CRP 24 Chest CTA [October 26: biLateral pulmonary embolism Doppler ultrasound lower extremity: Negative for DVT October 24: White count 9.7 hemoglobin 15.3 platelets 221 d-dimer 1.93 progre ssion 4.2 creatinine 0.71 CRP 5.5 pro-calcitonin 0.08 White count 9.9 hemoglobin 16 platelets 234 d-dimer 0.98 sodium 141 potassium 3.4 creatinine 0.81 Lactic acid 2.9 LDH 1422 CRP 7.5 EKG tracing personally reviewed by me-normal sinus rhythm. Nonspecific ST segment changes. Chest x-ray film personally reviewed by me-bilateral infiltrates Assessment and plan: -Acute severe COVID 19 pneumonitis in a patient who did not take the COVID-19 vaccine: Slow to respond Dexamethasone, vitamin C, vitamin D, zinc. outside the window for Remdesivir. -Acute hypoxic respiratory failure from COVID-19: Slow to respond intubated October 30. FiO2 100/10 -Active bleeding around tracheostomy into the trachea and lungs. Status post bronchoscopy. Evacuation of large amounts of blood clot. Tracheostomy removed. Patient reintubated. revision tracheostomy tube - November 19. Lovenox was resumed. November 22: At the tracheostomy site: re- bleeding with blood clots followed by bronchoscopy. Revision of tracheostomy done. -Bilateral pulmonary embolism secondary to COVID-19 Eliquis -discontinued because of bleeding. No L[place] filter per vascular. Lovenox resumed after revision tracheostomy. Lovenox discontinued, because of bleeding: November 22. Lakia filter placed by Dr. Boothe on November 23 -Essential hypertension Lopressor 50 mg twice a day, -Diabetes mellitus type 2, on oral hypoglycemic, uncontrolled with hyperglycemia Levemir 24 units daily at bedtime. Follow Accu-Cheks -Chronic insomnia for medical conditions Elavil 50 mg daily at bedtime -Hyperlipidemia TriCor 48 mg daily -Hypoalbuminemia Acute phase reactant -Obstructive sleep apnea On CPAP at home -Pneumomediastinum and subcutis emphysema complications of COVID-19/pneumonia. - right upper apical pneumothorax less than 5%. -Diabetic peripheral neuropathy Lyrica 200 mg twice daily -Full code Today's drips include fentanyl, propofol, Nimbex, cleviprex. On the ventilator. Lakia filter placed by Dr. Boothe today.
[2021-11-23] MEDS: INSULIN DETEMIR (LEVEMIR) 100 UNIT/ML SYR SQ SCH (20:27)
--- NOTE | 2021-11-23 21:35 | P.PN ---
Subjective Progress Note Date: 11/23/21 Principal diagnosis: Pneumonia, rash, leukocytosis Patient is a 61-year male admitted to the hospital October 23, 2021 patient diagnosed with COVID-19 pneumonia did have a respiratory failure requiring intubation failed to be extubated status post trach and PEG on November 10, 2021 patient also have a component of secondary to pneumonia with MSSA patient has received more than 2 weeks course of Zosyn which was discontinued 11/17/2021 because of rash. On today's evaluation that is 11/23/2021 the patient remains to be afebrile, patient is hemodynamically stable not requiring any pressor support, the patient FiO2 is up to 65 % however no significant purulent secretion through the ET has been reported by nursing staff, patient been tolerating his tube feeds and no diarrhea has been reported Objective - Vital Signs Vital signs: Vital Signs Temp 98.4 F 11/23/21 20:00 Pulse 60 11/23/21 21:00 Resp 30 H 11/23/21 21:00 BP 159/77 11/23/21 21:00 Pulse Ox 99 11/23/21 21:00 Intake & Output 11/23/21 11/23/21 11/24/21 06:59 18:59 06:59 Intake Total 3802.957 7277.574 167.59 Output Total 781 2115 100 Balance 676.007 -489.426 67.59 Weight 129 kg 129 kg Intake: IV 293 380 46 0.9 Normal Saline @ 20 mL 210 200 40 /hr KVO Pressure bag 33 30 6 ceFAZolin 2 gm In Sodium 50 100 Chloride 0.9% 50 ml @ 100 mls/hr IVPB Q8HR [facility] Rx# :[id number] Intake, IV Titration 4777.955 4274.574 91.59 Amount Anidulafungin 100 mg In 100 Sodium Chloride 0.9% 100 ml @ 84 mls/hr IVPB DAILY @1200 [facility] Rx#:[id number] Cisatracurium 200 mg In 236.269 364.524 Sodium Chloride 0.9% 180 ml @ 1 MCG/KG/MIN 7.638 mls/hr IV .Q24H [facility] Rx#: [id number] Cisatracurium 200 mg In 21 Sodium Chloride 0.9% 180 ml @ 1.5 MCG/KG/MIN 10.8 mls/hr IV .[id number] [facility] Rx #:[id number] Clevidipine Butyrate 25 275.066 119.100 0 mg In Empty Bag 1 bag @ 1 MG/HR 2 mls/hr IV .Q24H [facility] Rx#:[id number] fentaNYL (PF) 2,500 mcg 122.672 151.656 In Sodium Chloride 0.9% 200 ml @ 0.5 MCG/KG/HR 4. 082 mls/hr IV .Q24H [facility] Rx#:[id number] propofoL 1,000 mg In 400.000 299.294 91.59 Empty Bag 1 bag @ Titrate IV .Q0M [facility] Rx#: [id number] Tube Feeding 70 60 30 Other 60 130 Output: Urine 780 2115 100 Stool 1 Other: Voiding Method Indwelling Catheter Indwelling Catheter Indwelling Catheter ABP, PAP, CO, CI - Last Documented Arterial Blood Pressure 176/66 - Exam GENERAL DESCRIPTION: Middle-age male intubated on the vent RESPIRATORY SYSTEM: Unlabored breathing , decreased breath sounds at bases HEART: S1 S2 regular rate and rhythm ,no loud murmurs ABDOMEN: Soft , no tenderness EXTREMITIES: No edema feet - Labs CBC & Chem 7: 11/23/21 05:44 11/23/21 05:44 Labs: Abnormal Lab Results - Last 24 Hours (Table) 11/22/21 11/23/21 11/23/21 Range/Units 23:45 05:24 05:42 WBC (3.8-10.6) k/uL RBC (4.30-5.90) m/uL Hgb (13.0-17.5) gm/dL Hct (39.0-53.0) % MCV (80.0-100.0) fL RDW (11.5-15.5) % ABG pH 7.47 H (7.35-7.45) ABG pCO2 48 H (35-45) mmHg ABG HCO3 34 H (21-25) mmol/L ABG Total CO2 36 H (19-24) mmol/L ABG O2 Saturation 98.1 H (94-97) % Sodium (137-145) mmol/L Carbon Dioxide (22-30) mmol/L Creatinine (0.66-1.25) mg/dL Glucose (74-99) mg/dL POC Glucose (mg/dL) 145 H 160 H (75-99) mg/dL Calcium (8.4-10.2) mg/dL ALT (4-49) U/L Total Protein (6.3-8.2) g/dL Albumin (3.5-5.0) g/dL 11/23/21 11/23/21 11/23/21 Range/Units 05:44 05:44 11:29 WBC 13.5 H (3.8-10.6) k/uL RBC 2.64 L (4.30-5.90) m/uL Hgb 8.6 L (13.0-17.5) gm/dL Hct 27.4 L (39.0-53.0) % MCV 103.7 H (80.0-100.0) fL RDW 15.7 H (11.5-15.5) % ABG pH (7.35-7.45) ABG pCO2 (35-45) mmHg ABG HCO3 (21-25) mmol/L ABG Total CO2 (19-24) mmol/L ABG O2 Saturation (94-97) % Sodium 135 L (137-145) mmol/L Carbon Dioxide 31 H (22-30) mmol/L Creatinine 0.43 L (0.66-1.25) mg/dL Glucose 153 H (74-99) mg/dL POC Glucose (mg/dL) 170 H (75-99) mg/dL Calcium 7.9 L (8.4-10.2) mg/dL ALT 54 H (4-49) U/L Total Protein 5.3 L (6.3-8.2) g/dL Albumin 2.6 L (3.5-5.0) g/dL 11/23/21 Range/Units 17:51 WBC (3.8-10.6) k/uL RBC (4.30-5.90) m/uL Hgb (13.0-17.5) gm/dL Hct (39.0-53.0) % MCV (80.0-100.0) fL RDW (11.5-15.5) % ABG pH (7.35-7.45) ABG pCO2 (35-45) mmHg ABG HCO3 (21-25) mmol/L ABG Total CO2 (19-24) mmol/L ABG O2 Saturation (94-97) % Sodium (137-145) mmol/L Carbon Dioxide (22-30) mmol/L Creatinine (0.66-1.25) mg/dL Glucose (74-99) mg/dL POC Glucose (mg/dL) 118 H (75-99) mg/dL Calcium (8.4-10.2) mg/dL ALT (4-49) U/L Total Protein (6.3-8.2) g/dL Albumin (3.5-5.0) g/dL Microbiology - Last 24 Hours (Table) 11/17/21 15:15 Blood Culture - Final Blood No Growth after 144 hours 11/17/21 15:35 Blood Culture - Final Blood No Growth after 144 hours 11/20/21 20:45 Gram Stain - Final Sputum Sputum Culture - Final Staphylococcus aureus Bibi albicans Assessment and Plan (1) Fever Current Visit: Yes Status: Acute Code(s): R50.9 - FEVER, UNSPECIFIED SNOMED Code(s): 063370992 (2) Rash Current Visit: Yes Status: Acute Code(s): R21 - RASH AND OTHER NONSPECIFIC SKIN ERUPTION SNOMED Code(s): 682913686 (3) COVID-19 Current Visit: Yes Status: Acute Code(s): U07.1 - COVID-19 SNOMED Code(s): 209608418 Plan: 1-Patient with rash likely related to Zosyn which has been discontinued rash has resolved. 2 elevated white count question of possible oropharyngeal candidiasis patient to continue Eraxis White count has normalized 3-patient did have a low-grade fever , for the patient did have a repeat blood and sputum cultures and blood cultures are pending the sputum culture is growing MSSA cefazolin has been added and will monitor clinical course closely Time with Patient: Less than 30
[2021-11-24 00:04] LABS: Glucose,Whole Blood 192 mg/dL (75-99)
[2021-11-24] MEDS: INSULIN ASPART (NovoLOG) 100 UNIT/ML VIAL SQ SCH ×5 (00:08→23:41)
[2021-11-24] MEDS: ARTIFICIAL TEARS-HYPROMELLOSE DROPS 15 ML BTL BOTH EYES SCH ×7 (00:08→23:22)
[2021-11-24] MEDS: CISATRACURIUM 200 MG in SODIUM CHLORIDE 0.9% 180 ML IV SCH ×2 (00:21→09:25)
[2021-11-24] MEDS: CLEVIDIPINE BUTYRATE 25 MG in EMPTY BAG 1 BAG IV SCH ×8 (01:00→22:22)
[2021-11-24] MEDS: fentaNYL (PF) 2,500 MCG in SODIUM CHLORIDE 0.9% 200 ML IV SCH ×3 (01:33→18:28)
[2021-11-24 04:56] LABS: Basophils # (A) 0.1 k/uL (0-0.2); Basophils % (A) 0 %; Eosinophils # (A) 0.2 k/uL (0-0.7); Eosinophils % (A) 1 %; HCT 28.5 % (39.0-53.0); HGB 9.4 gm/dL (13.0-17.5); Hypochromasia Moderate; Lymphocytes # (A) 0.9 k/uL (1.0-4.8); Lymphocytes % (A) 5 %; MCV 103.1 fL (80.0-100.0); Macrocytosis Slight; Mean Platelet Volume 8.1; Monocytes % (A) 5 %; Neutrophils # (A) 16.8 k/uL (1.3-7.7); Neutrophils % (A) 88 %; Platelet Count 249 k/uL (150-450); RBC 2.77 m/uL (4.30-5.90); RDW 14.9 % (11.5-15.5); WBC 19.1 k/uL (3.8-10.6)
[2021-11-24 05:19] LABS: ALT 46 U/L (4-49); AST 22 U/L (17-59); African American GFR (CKD) >90 (>60 ml/min/1.73 sqM); Albumin 3.1 g/dL (3.5-5.0); Alkaline Phosphatase 90 U/L (38-126); Anion Gap 8 mmol/L; Blood Urea Nitrogen 18 mg/dL (9-20); C Reactive Protein 6.7 mg/dL (<1.0); Calcium 8.3 mg/dL (8.4-10.2); Carbon Dioxide 31 mmol/L (22-30); Chloride 95 mmol/L (98-107); Glucose 241 mg/dL (74-99); LDH 656 U/L (313-618); Non-African American GFR(CKD) >90 (>60 ml/min/1.73 sqM); Potassium 4.5 mmol/L (3.5-5.1); Sodium 134 mmol/L (137-145); Total Bilirubin 1.2 mg/dL (0.2-1.3); Total Protein 6.2 g/dL (6.3-8.2)
[2021-11-24 05:52] LABS: ABG Base Excess 10.1 mmol/L; ABG HCO3 35 mmol/L (21-25); ABG Oxygen Saturation 94.6 % (94-97); ABG PCO2 57 mmHg (35-45); ABG PO2 75 mmHg (83-108); ABG TCO2 37 mmol/L (19-24); Allen Test Performed? Yes
[2021-11-24 06:14] LABS: Glucose,Whole Blood 239 mg/dL (75-99)
[2021-11-24 06:14] LABS: Glucose,Whole Blood 209 mg/dL (75-99)
[2021-11-24] MEDS: FUROSEMIDE 10 MG/ML 4 ML VIAL IV SCH (08:58)
[2021-11-24] MEDS: CHLORHEXIDINE GLUCONATE 15 ML CUP MUCOUS MEM SCH ×2 (08:58→22:18)
[2021-11-24] MEDS: ASCORBIC ACID 500 MG TAB PO SCH (08:58)
[2021-11-24] MEDS: DOCUSATE ORAL SOLN 100 MG/10 ML CUP PO SCH (08:58)
[2021-11-24] MEDS: PREGABALIN 100 MG CAP PO SCH ×2 (08:58→20:00)
[2021-11-24] MEDS: DEXAMETHASONE SOD PHOSPHATE 10 MG/ML 1 ML VIAL IVP SCH (08:58)
[2021-11-24] MEDS: PANTOPRAZOLE 40 MG/10 ML VIAL IVP SCH (08:58)
[2021-11-24] MEDS: SERTRALINE 50 MG TAB PO SCH (08:58)
[2021-11-24] MEDS: CHOLECALCIFEROL 25 MCG (1000 IU) TABLET PO SCH (08:59)
[2021-11-24] MEDS: ZINC SULFATE 220 MG CAP PO SCH (08:59)
[2021-11-24] MEDS: METOPROLOL TARTRATE 50 MG TAB PO SCH ×3 (08:59→21:10)
[2021-11-24] MEDS ORDERED: LOSARTAN 50 MG TAB PO SCH (09:00)
[2021-11-24] MEDS ORDERED: amLODIPine 5 MG TAB PO SCH (09:00)
[2021-11-24] MEDS: LACTULOSE 20 GM/30 ML CUP PO SCH ×2 (09:01→22:18)
[2021-11-24] MEDS: bisacodyL 10 MG SUPP RECTAL SCH ×2 (09:01→22:18)
--- NOTE | 2021-11-24 09:12 | IR ---
PICC LINE PLACEMENT: HISTORY: Infection requiring long-term antibiotic therapy PROCEDURE: Ultrasound guidance of PICC line placement. COMPLICATIONS: None ANESTHESIA: 1. 1% Lidocaine locally. FINDINGS/TECHNIQUE: The procedure was explained to the patient. The risks, complications, benefits and alternatives were discussed and any questions were answered. Informed consent was obtained. The patient was placed supine on the fluoroscopic table and prepped and draped in the usual sterile fash ion. Utilizing a 21 gauge needle and sonographic guidance, access in the right basilic vein was ach ieved and there is placement of a 0.018 guidewire. The vein is patent. A 5-F. sheath was placed ove r the guidewire. The guidewire and dilator were removed and a 5-F. Double lumen PICC line was placed through the sheath with the chest x-ray confirming the tip at the level of the SVC. The sheath was removed, the catheter was flushed and sutured into position. The patient was stable throughout the p rocedure and remained stable upon discharge from the Department of Radiology. The vein puncture was patent under ultrasound. A larson scale image was obtained to document patency of the vein punctured. All elements of the maximal barrier technique were utilized. IMPRESSION: 1. Successful PICC line placement under ultrasound performed bedside within the ICU.
--- NOTE | 2021-11-24 09:20 | XR ---
EXAMINATION TYPE: XR chest 1V portable DATE OF EXAM: 11/24/2021 COMPARISON: 11/23/2021 HISTORY: Shortness of breath TECHNIQUE: Single frontal view of the chest is obtained. FINDINGS: Postsurgical change overlying the soft tissue the neck and tracheostomy tube and central l ine stable. Diffuse bilateral predominantly interstitial infiltrates are stable. Small right pleural effusion and left pleural effusion stable. Hypertrophic changes of the spine. Heart size stable. IMPRESSION: Stable diffuse bilateral infiltrate.
--- NOTE | 2021-11-24 10:47 | P.PN ---
Subjective Progress Note Date: 11/24/21 Principal diagnosis: Acute COVID-19 pneumonia 61-year-old male patient with past medical history of diabetes mellitus type 2 with diabetic neuropathy, hypertension, hyperlipidemia, previous history of CVA, rheumatoid arthritis, obstructive sleep apnea S/P UPPP, history of right eye melanoma with previous surgeries, BPH with previous TURP, chronic lower extremity edema, cellulitis, gout, presented to the emergency department on 10/23/2021 at 240 3 in the morning with complaints of severe shortness of breath, cough, congestion. Patient states he has had symptoms since October 09, initially was tested via rapid COVID-19 PCR test which was negative however the send out PCR test came back positive. He states over the last 2 weeks his symptoms continue to worsen, he feels weak, short of breath, complains of cough and chest congestion. No chest pain. He has not been vaccinated against COVID- 19. He does endorse fever, malaise, nausea, abdominal pain. His chest x-ray showed moderate pulmonary testicular edema. His lab work has been reviewed showing white blood cell count of 9.9, hemoglobin 16, platelet count is 234, neutrophils 8.1, lymphocyte count is 1.49, INR is 1.1, sodium is 141, potassium is 3.4, chloride is 101, CO2 is 23, BUN is 23 creatinine 0.81, plasma lactic acid was 2.9 and is currently down to 1.7, LDH was 1422, proBNP was 185, LFTs were within normal limits. Patient is currently requiring 8 L of oxygen his pulse ox is 96%, he still has a congested cough, he has been afebrile, he is short of breath with any exertion. Denies any hemoptysis or chest discomfort. Has been started on Decadron 6 mg daily, he was given IV hydration with 1 L b olus, and currently receiving 0.9 normal saline at a rate of 1:30 ML per hour, his lactic acid has improved. Patient is outside the window for Remdesivir. On 11/08/2021 patient seen in follow-up in the intensive care unit, patient was transferred to the intensive care on 10/29/2022, and was intubated in next day on 10/30/2022. He currently remains intubated, sedated and paralyzed, he is currently on assist control mode of ventilation with a rate of 32, tidal arm is 450, FiO2 of 55% and PEEP of 16. This morning's blood gas has been reviewed showing pO2 of 59, pCO2 of 42, and pH of 7.5 one, this was done on the above- mentioned event stated settings. Patient is currently on 0.9 at 20 ML per hour, fentanyl infusion at 2 mics per kilo per minute, diprivan at 60 mics per kilo per minute, Nimbex at 2 mics per kilo per minute, he is tolerating his tube feedings, he is on vital high-protein at 23 with a goal of 23 and standard water flushes, for the past few days patient was given a paralytic holiday's however he does not tolerate them well, desaturates, and requires to be re-paralyzed, yesterday paralytic holiday was not attempted. His chest x-ray today shows bilateral multifocal increased opacities consistent with a COVID 19 infection and ARDS, no significant change from one day earlier. Hemodynamically patient has been stable, he remains in sinus mechanism, not requiring any vasopressor support, he remains on antibiotics in the form of Zosyn for positive blood cultures, his last set of blood cultures from 11/06/2021 showed 2 coagulase- negative staph organisms, blood culture from the same day showed no growth, his sputum culture showed few PMNs, moderate gram-positive cocci. Patient has been afebrile, hemodynamically he has been stable. Abdomen is soft, he is tolerating tube feedings. He is generally swollen. Overall says he transferred to the intensive care unit his weight is up by at least 7.4 kg. Patient has received intermittent doses of diuretics. He currently remains on Decadron 6 mg daily, she is on Eliquis 5 mg twice daily for evidence of PE that was diagnosed during this admission, yesterday he received a dose of IV Lasix 60 mg, however she still and +205 mL net fluid balance over the last 24 hours. He remains on multivitamins. His labs have been reviewed, his white blood cell count is 7.5, hemoglobin is 10.0, sodium is 136, potassium 3.5, chloride is 102, CO2 30, BUN is 20, creatinine 0.51, his last pro-calcitonin from 11/06/2021 was 0.31, which was actually increasing from the previous value of 0.12. And from the admission value of 0.08. On 11/23/2021 patient seen in follow-up in the intensive care unit, yesterday patient had a major rebleeding episode from his surgical wound at the tracheostomy site. Patient was bleeding into his airways, patient was becoming hypoxic developing high peak airway pressures and was becoming extremely difficult to ventilate. Patient had emergent bronchoscopy with BAL at the bedside, surgery was called to the bedside and revision of tracheostomy was performed at the bedside. Patient was orally intubated with assistance of bronchoscope, significant amount of blood in the oropharynx was encountered. Anesthesiology was also at the bedside assisting with the procedure. Patient had his bleeding finally controlled and was given protamine sulfate, tranexamic acid and the bleeders were also surgically cauterized. His anticoagulation has remained on hold. Patient is currently trached to the vent, with assist-control mode of ventilation with a rate of 30, tidal vital 350, FiO2 50% and PEEP of 10, this morning's blood gas shows pO2 of 96, pCO2 48, pH of 7.47, chest x-ray shows bilateral infiltrates and pleural effusion there is stable, postsurgical changes overlying the soft tissue of the neck and tracheostomy tube and central line are stable. Patient is currently sedated and paralyzed with the program 50 mics per kilo per minute, Nimbex is at 3.5 mics per kilo per hour, Cleviprex is at 18 mg per hour, point and obtain a rate of 20 ML per hour. Fentanyl is at 2 mics per kilo per minute, tube feedings are currently on hold. Today's labs have been reviewed, white blood cell count is 13.5, hemoglobin is 8.6, which is down from 9.1 on yesterday's labs, platelet count is 211, sodium is 135, potassium 3.9, chloride is 98, CO2 is 31, BUN is 15, creatinine 0.43. Pro-calcitonin level is negative at 0.21. Hemodynamic patient is stable, he is requiring Cleviprex infusion for blood pressure control. Patient currently continues on dexamethasone 6 mg twice daily, he is on daily dose of Lasix 40 mg daily, he is on antibiotics in the form of Kefzol and Eraxis per ID service, his sputum cultures were positive for staph aureus, and Bibi albicans, his blood culture from 11/03/2021 showed staph epidermidis and coagulase-negative staph likely skin contaminant. Follow blood cultures have shown no growth. Low-grade fevers overnight with a temp of 99.7F. Lovenox has been discontinued, and vascular surgery is consulted for placement of IVC filter. Patient is scheduled for the procedure today On 11/24/2021 patient seen in follow-up in the intensive care unit, he is status post IVC filter placement yesterday on 11/23/2021, tolerated procedure well, remains off all anti-coagulation. Hemodynamically stable, no recurrent rebleeding in the last 24 hours. She remains on assist control mode of ventilation with a rate of 30, tidal vital 350, FiO2 55% and PEEP of 10, this morning's blood gas shows pO2 of 75, pCO2 57, and pH of 7.39. This was done and the above-mentioned vent settings, today's chest x-ray has been reviewed showing stable diffuse bilateral infiltrates. Patient is currently sedated on Diprivan at 50 mics per kilo per minute, fentanyl infusion at 2 mics per kilo per minute, Cleviprex is a 21 mg per hour, Nimbex at 3.5 mics per kilo per minute, 0.9 normal saline at a rate of 20 ML per hour, he is tolerating tube feedings is receiving vital HP at 33 with a 33 and 30 mL water flushes every 4 hours. Patient had a PICC line placed yesterday as well, however he is additional IV access and he will need a midline placed today. Tracheostomy site is clean dry and intact, surgical packing is still in place. Today's labs have been reviewed, white blood cell count is 19.1, hemoglobin is 9.4, platelet count is 249, sodium is 134, potassium is 4.5, chloride is 95, CO2 31, BUN is 18, creatinine 0.46. Follow-up LDH is 656, improving, and CRP is 6.7, improved since admission. His had no acute events overnight, he is been hypotensive requiring high doses of Cleviprex, patient will be started on some oral antihypertensives today, and we will also drop his dexamethasone dose down to once daily. She also continues on per ID service recommendations for MSSA in his sputum cultures, his previous blood cultures also show coagulase-negative staph, and staph epidermidis. His previous sputum culture on admission was positive for strep agalactiae. Clinically he has remained stable, we'll attempt paralytic holiday today. Objective - Vital Signs Vital signs: Vital Signs Temp 99.1 F 11/24/21 08:00 Pulse 81 11/24/21 10:00 Resp 30 H 11/24/21 10:00 BP 157/71 11/24/21 09:30 Pulse Ox 97 11/24/21 10:00 Intake & Output 11/23/21 11/24/21 11/24/21 18:59 06:59 18:59 Intake Total 9776.736 1443.925 766.701 Output Total 2115 940 Balance -489.426 738.925 766.701 Weight 129 kg Intake: IV 380 299 146 0.9 Normal Saline @ 20 mL 200 260 40 /hr KVO Pressure bag 30 39 6 ceFAZolin 2 gm In Sodium 100 100 Chloride 0.9% 50 ml @ 100 mls/hr IVPB Q8HR [facility] Rx# :[id number] Intake, IV Titration 2150.978 8070.925 494.701 Amount Anidulafungin 100 mg In 100 Sodium Chloride 0.9% 100 ml @ 84 mls/hr IVPB DAILY @1200 [facility] Rx#:[id number] Cisatracurium 200 mg In 364.524 149.705 211.075 Sodium Chloride 0.9% 180 ml @ 1 MCG/KG/MIN 7.638 mls/hr IV .Q24H [facility] Rx#: [id number] Cisatracurium 200 mg In 21 Sodium Chloride 0.9% 180 ml @ 1.5 MCG/KG/MIN 10.8 mls/hr IV .[id number] [facility] Rx #:[id number] Clevidipine Butyrate 25 119.100 323.567 50 mg In Empty Bag 1 bag @ 1 MG/HR 2 mls/hr IV .Q24H [facility] Rx#:[id number] fentaNYL (PF) 2,500 mcg 151.656 170.638 133.626 In Sodium Chloride 0.9% 200 ml @ 0.5 MCG/KG/HR 4. 082 mls/hr IV .Q24H [facility] Rx#:[id number] propofoL 1,000 mg In 299.294 456.015 100 Empty Bag 1 bag @ Titrate IV .Q0M [facility] Rx#: [id number] Tube Feeding 60 220 66 Other 130 60 60 Output: Urine 2115 940 Other: Voiding Method Indwelling Catheter Indwelling Catheter Indwelling Catheter ABP, PAP, CO, CI - Last Documented Arterial Blood Pressure 171/67 - Exam GENERAL EXAM: Trached to the vent, sedated and paralyzed 61-year-old white male, on assist-control mode of ventilation with a rate of 30, tidal volume is 350, FiO2 of 55% and PEEP of 10 HEAD: Normocephalic/atraumatic. EYES: Normal reaction of pupils, equal size. Conjunctiva pink, sclera white. NOSE: Clear with pink turbinates. THROAT: No erythema or exudates. NECK: No masses, no JVD, no thyroid enlargement, no adenopathy. Midline tracheostomy, patient is connected to the ventilator with assist control mode of ventilation. Patient is status post two trach revisions thus far for 2 episodes of major surgical wound bleeding. Tracheostomy site has a surgical packing, clean dry and intact CHEST: No chest wall deformity. Symmetrical expansion. LUNGS: Equal air entry with diffuse crackles CVS: Regular rate and rhythm, normal S1 and S2, no gallops, no murmurs, no rubs ABDOMEN: Soft, nontender. No hepatosplenomegaly, normal bowel sounds, no guarding or rigidity. EXTREMITIES: No clubbing, mild generalized edema, and 1+ lower extremity edema no cyanosis, 2+ pulses and upper and lower extremities. MUSCULOSKELETAL: Muscle strength and tone normal. SPINE: No scoliosis or deformity SKIN: No rashes CENTRAL NERVOUS SYSTEM: Trached to the vent, sedated and paralyzed. No focal deficits, tone is normal in all 4 extremities. - Labs CBC & Chem 7: 11/24/21 04:35 11/24/21 04:35 Labs: Abnormal Lab Results - Last 24 Hours (Table) 11/23/21 11/23/21 11/24/21 Range/Units 11:29 17:51 00:03 WBC (3.8-10.6) k/uL RBC (4.30-5.90) m/uL Hgb (13.0-17.5) gm/dL Hct (39.0-53.0) % MCV (80.0-100.0) fL Neutrophils # (1.3-7.7) k/uL Lymphocytes # (1.0-4.8) k/uL ABG pCO2 (35-45) mmHg ABG pO2 (83-108) mmHg ABG HCO3 (21-25) mmol/L ABG Total CO2 (19-24) mmol/L Sodium (137-145) mmol/L Chloride (98-107) mmol/L Carbon Dioxide (22-30) mmol/L Creatinine (0.66-1.25) mg/dL Glucose (74-99) mg/dL POC Glucose (mg/dL) 170 H 118 H 192 H (75-99) mg/dL Calcium (8.4-10.2) mg/dL Lactate Dehydrogenase (313-618) U/L C-Reactive Protein (<1.0) mg/dL Total Protein (6.3-8.2) g/dL Albumin (3.5-5.0) g/dL 11/24/21 11/24/21 11/24/21 Range/Units 04:35 04:35 05:48 WBC 19.1 H (3.8-10.6) k/uL RBC 2.77 L (4.30-5.90) m/uL Hgb 9.4 L (13.0-17.5) gm/dL Hct 28.5 L (39.0-53.0) % MCV 103.1 H (80.0-100.0) fL Neutrophils # 16.8 H (1.3-7.7) k/uL Lymphocytes # 0.9 L (1.0-4.8) k/uL ABG pCO2 57 H (35-45) mmHg ABG pO2 75 L (83-108) mmHg ABG HCO3 35 H (21-25) mmol/L ABG Total CO2 37 H (19-24) mmol/L Sodium 134 L (137-145) mmol/L Chloride 95 L (98-107) mmol/L Carbon Dioxide 31 H (22-30) mmol/L Creatinine 0.46 L (0.66-1.25) mg/dL Glucose 241 H (74-99) mg/dL POC Glucose (mg/dL) (75-99) mg/dL Calcium 8.3 L (8.4-10.2) mg/dL Lactate Dehydrogenase 656 H (313-618) U/L C-Reactive Protein 6.7 H (<1.0) mg/dL Total Protein 6.2 L (6.3-8.2) g/dL Albumin 3.1 L (3.5-5.0) g/dL 11/24/21 11/24/21 Range/Units 06:10 06:12 WBC (3.8-10.6) k/uL RBC (4.30-5.90) m/uL Hgb (13.0-17.5) gm/dL Hct (39.0-53.0) % MCV (80.0-100.0) fL Neutrophils # (1.3-7.7) k/uL Lymphocytes # (1.0-4.8) k/uL ABG pCO2 (35-45) mmHg ABG pO2 (83-108) mmHg ABG HCO3 (21-25) mmol/L ABG Total CO2 (19-24) mmol/L Sodium (137-145) mmol/L Chloride (98-107) mmol/L Carbon Dioxide (22-30) mmol/L Creatinine (0.66-1.25) mg/dL Glucose (74-99) mg/dL POC Glucose (mg/dL) 239 H 209 H (75-99) mg/dL Calcium (8.4-10.2) mg/dL Lactate Dehydrogenase (313-618) U/L C-Reactive Protein (<1.0) mg/dL Total Protein (6.3-8.2) g/dL Albumin (3.5-5.0) g/dL Microbiology - Last 24 Hours (Table) 11/17/21 15:15 Blood Culture - Final Blood No Growth after 144 hours 11/17/21 15:35 Blood Culture - Final Blood No Growth after 144 hours 11/20/21 20:45 Gram Stain - Final Sputum Sputum Culture - Final Staphylococcus aureus Bibi albicans Assessment and Plan Plan: Assessment: #1. Recurrent bleeding from surgical site around tracheostomy, status post revision of tracheostomy site, reintubation, bronchoscopy 2, please refer to the full operative report on this patient from 11/15/2021 and 11/22/2021. Patient was previously on Eliquis which was discontinued, and was then placed on Lovenox 80 mg twice daily for acute pulmonary embolism diagnosed during this adm ission. Lovenox has been placed on hold, patient had SVC filter placement on 11/23/2021 #2. Acute hypoxic respiratory failure related to acute COVID-19 related pneumonia, patient presented to the emergency department on 10/23/2021 with 2 week history of symptoms, patient is outside the window for Remdesivir, he is a non-vaccinated adult. Patient was started on Baricitinib in view of worsening h ypoxic respiratory failure, on 10/29/2021 transferred to the intensive care unit, and intubated on 10/30/2021. Today on 11/08/2021 patient remains intubated, sedated and paralyzed on assist control mode of ventilation with a rate of 32, tidal arm was 450, FiO2 of 55% and PEEP of 16. Baricitinib has been discontinued in view of positive blood cultures patient is currently covered with Zosyn. Blood cultures have shown coagulase-negative staph, 2 organisms, possibly contamination, however his sputum from 10/30/2021 showed group B strep. Patient has failed paralytic holiday on more than one occasion, currently remains on Nimbex, we will attempt to wean it again after diuresing the patient #3. Left lung collapse secondary to mucus plugging and blood clots requiring therapeutic bronchoscopy and lavage of the left lung extraction of the blood clots from the left knee mainstem bronchus left upper lobe bronchus lingula and left lower lobe bronchus and right upper lobe bronchus and right middle lobe bronchus with complete reexpansion of the left lung post procedure this was done on 11/18/2021 #4. Pneumomediastinum and subcutaneous emphysema, complication of COVID-19 pneumonia, resolved #5. Tiny right apical pneumothorax, resolved #6. Acute blood loss anemia related to bleeding from the surgical site around tracheostomy, and anticoagulation, currently off anticoagulation, it remains hemodynamically stable #7. Acute pulmonary embolism within the lower lobe, right artery right greater than left, started on Eliquis on 10/26/2021, however patient had 3 episodes of major bleeding including epistaxis, and 2 episodes of bleeding from the surgical wound at the fresh tracheostomy site, and patient is status post SVC filter placement on 11/23/2021 #8. Diabetes mellitus type 2 with diabetic neuropathy #9. Hypertension #10. Hyperlipidemia #11. BPH with previous history of TURP #12. Obstructive sleep apnea with previous history of UPPP #13. History of right eye melanoma with multiple surgeries #14. Previous history of CVA #15. Rheumatoid arthritis #16. History of gout #17. Previous history of MRSA infection in the wound on his back #18. Mild lactic acidosis, improved with IV hydration #19. Elevated inflammatory markers related to acute COVID-19 pneumonia Plan: Today's chest x-ray, blood gases and labs have been reviewed FiO2 is currently 55 and PEEP is at 10 Increase Lasix to twice daily, patient is in positive fluid balance for the last 2 days Generally he looks fluid overloaded I will cut back Decadron to once daily We'll start the patient on Norvasc 10 mg daily and we will add losartan 100 mg daily Wean Cleviprex Continue holding Eliquis Attempt paralytic holiday May use higher doses of sedatives if becomes restless or desaturates Continue tube feedings Continue monitoring and daily blood work Hemodynamically he is been stable, there has been no episode of rebleeding in the last 24 hours Anticoagulation remains discontinued We'll continue to closely follow his course Follow-up chest x-ray blood gases ABGs in the morning I performed a history & physical examination of the patient and discussed their management with my nurse practitioner, Linda Giordano. I reviewed the nurse practitioner's note and agree with the documented findings and plan of care. Lung sounds are positive for dim with diffuse wheezes throughout the lung malone. The findings and the impression was discussed with the patient. I attest to the documentation by the nurse practitioner. Time with Patient: Greater than 30
[2021-11-24] MEDS: amLODIPine 10 MG TAB PO SCH (10:54)
[2021-11-24] MEDS: ANIDULAFUNGIN 100 MG in SODIUM CHLORIDE 0.9% 100 ML IVPB SCH (11:01)
--- NOTE | 2021-11-24 11:13 | PCN ---
PROCEDURE NOTE PULMONARY/CRITICAL CARE PROCEDURE NOTE: PROCEDURE: Placement of left radial artery line. PREOPERATIVE DIAGNOSIS: Frequent blood draws and blood gas monitoring. POSTOPERATIVE DIAGNOSIS: Frequent blood draws and blood gas monitoring. OPERATORS: 1. Dr. Ramirez. 2. Dr. Batres. PROCEDURE DESCRIPTION: A universal time-out was completed verifying correct patient, procedure, site, positioning, and implant(s) or special equipment if applicable. Charlie's test was performed to ensure adequate perfusion. The patient's left wrist was prepped and draped in sterile fashion. 1% Lidocaine was used to anesthetize the area. An 18G Arrow arterial line was introduced into the left radial artery. The catheter was threaded over the guide wire and the needle was removed with appropriate pulsatile blood return. There was good waveform and blood pressure reading. Blood loss was minimal. The catheter was then sutured in place to the skin and a sterile dressing applied by the nurse. Perfusion to the extremity distal to the point of catheter insertion was checked and found to be adequate. The patient tolerated the procedure well and there were no immediate complications. MMODL / IJN: [id number] /
--- NOTE | 2021-11-24 11:19 | P.PN ---
Subjective Progress Note Date: 11/24/21 This is 61-year-old male who is admitted to the ICU with acute hypoxic respiratory failure related to COVID-19 pneumonia who is currently sedated on mechanical ventilation. The patient had undergone tracheostomy placement and a couple days later the patient had significant amount of bleeding from his tr acheostomy site and around the stoma. The tracheostomy was removed and general surgery had taken him back to the operating room for revision and exploration of the wound. At the current time of the surgical bleed he had been on Eliquis for pulmonary embolism. Bleeding had discontinued and patient was started on Lovenox twice a day. He was brought back to the operating room on 11/22/2021 for a revision of the tracheostomy, questionable partial thyroidectomy according to op note. Following the revision the patient had bleeding again from the surgical site with occlusion of the airway with blood clots and underwent a bronchoscopy. Due to the recurrent bleeds vascular surgery was asked to put in a IVC filter. He has saw status postop day #1 for IVC filter with access to the right common femoral vein. There is been no reported bleeding from the access site. Hemoglobin is stable at 9.4. Objective - Vital Signs Vital signs: Vital Signs Temp 99.1 F 11/24/21 08:00 Pulse 81 11/24/21 10:00 Resp 30 H 11/24/21 10:00 BP 157/71 11/24/21 09:30 Pulse Ox 97 11/24/21 10:00 Intake & Output 11/23/21 11/24/21 11/24/21 18:59 06:59 18:59 Intake Total 1311.391 1566.925 494.701 Output Total 2115 940 Balance -489.426 738.925 494.701 Weight 129 kg Intake: IV 380 299 0.9 Normal Saline @ 20 mL 200 260 /hr KVO Pressure bag 30 39 ceFAZolin 2 gm In Sodium 100 Chloride 0.9% 50 ml @ 100 mls/hr IVPB Q8HR [facility] Rx# :[id number] Intake, IV Titration 5783.741 1381.925 494.701 Amount Anidulafungin 100 mg In 100 Sodium Chloride 0.9% 100 ml @ 84 mls/hr IVPB DAILY @1200 [facility] Rx#:[id number] Cisatracurium 200 mg In 364.524 149.705 211.075 Sodium Chloride 0.9% 180 ml @ 1 MCG/KG/MIN 7.638 mls/hr IV .Q24H [facility] Rx#: [id number] Cisatracurium 200 mg In 21 Sodium Chloride 0.9% 180 ml @ 1.5 MCG/KG/MIN 10.8 mls/hr IV .[id number] [facility] Rx #:[id number] Clevidipine Butyrate 25 119.100 323.567 50 mg In Empty Bag 1 bag @ 1 MG/HR 2 mls/hr IV .Q24H [facility] Rx#:[id number] fentaNYL (PF) 2,500 mcg 151.656 170.638 133.626 In Sodium Chloride 0.9% 200 ml @ 0.5 MCG/KG/HR 4. 082 mls/hr IV .Q24H [facility] Rx#:[id number] propofoL 1,000 mg In 299.294 456.015 100 Empty Bag 1 bag @ Titrate IV .Q0M [facility] Rx#: [id number] Tube Feeding 60 220 Other 130 60 Output: Urine 2115 940 Other: Voiding Method Indwelling Catheter Indwelling Catheter Indwelling Catheter ABP, PAP, CO, CI - Last Documented Arterial Blood Pressure 171/67 - Exam General appearance: The patient is sedated, Trach to vent. HET: Head is normocephalic and atraumatic. Neck: Supple without lymphadenopathy. Trachea midline. Extremities: Normal skin color and turgor. Edema to bilateral lower extremities. Right groin access site with dressing clean dry and intact. Dressing removed, no hematoma or bleeding. Neurological: Sedated. - Labs CBC & Chem 7: 11/24/21 04:35 11/24/21 04:35 Labs: Abnormal Lab Results - Last 24 Hours (Table) 11/23/21 11/23/21 11/24/21 Range/Units 11:29 17:51 00:03 WBC (3.8-10.6) k/uL RBC (4.30-5.90) m/uL Hgb (13.0-17.5) gm/dL Hct (39.0-53.0) % MCV (80.0-100.0) fL Neutrophils # (1.3-7.7) k/uL Lymphocytes # (1.0-4.8) k/uL ABG pCO2 (35-45) mmHg ABG pO2 (83-108) mmHg ABG HCO3 (21-25) mmol/L ABG Total CO2 (19-24) mmol/L Sodium (137-145) mmol/L Chloride (98-107) mmol/L Carbon Dioxide (22-30) mmol/L Creatinine (0.66-1.25) mg/dL Glucose (74-99) mg/dL POC Glucose (mg/dL) 170 H 118 H 192 H (75-99) mg/dL Calcium (8.4-10.2) mg/dL Lactate Dehydrogenase (313-618) U/L C-Reactive Protein (<1.0) mg/dL Total Protein (6.3-8.2) g/dL Albumin (3.5-5.0) g/dL 11/24/21 11/24/21 11/24/21 Range/Units 04:35 04:35 05:48 WBC 19.1 H (3.8-10.6) k/uL RBC 2.77 L (4.30-5.90) m/uL Hgb 9.4 L (13.0-17.5) gm/dL Hct 28.5 L (39.0-53.0) % MCV 103.1 H (80.0-100.0) fL Neutrophils # 16.8 H (1.3-7.7) k/uL Lymphocytes # 0.9 L (1.0-4.8) k/uL ABG pCO2 57 H (35-45) mmHg ABG pO2 75 L (83-108) mmHg ABG HCO3 35 H (21-25) mmol/L ABG Total CO2 37 H (19-24) mmol/L Sodium 134 L (137-145) mmol/L Chloride 95 L (98-107) mmol/L Carbon Dioxide 31 H (22-30) mmol/L Creatinine 0.46 L (0.66-1.25) mg/dL Glucose 241 H (74-99) mg/dL POC Glucose (mg/dL) (75-99) mg/dL Calcium 8.3 L (8.4-10.2) mg/dL Lactate Dehydrogenase 656 H (313-618) U/L C-Reactive Protein 6.7 H (<1.0) mg/dL Total Protein 6.2 L (6.3-8.2) g/dL Albumin 3.1 L (3.5-5.0) g/dL 11/24/21 11/24/21 Range/Units 06:10 06:12 WBC (3.8-10.6) k/uL RBC (4.30-5.90) m/uL Hgb (13.0-17.5) gm/dL Hct (39.0-53.0) % MCV (80.0-100.0) fL Neutrophils # (1.3-7.7) k/uL Lymphocytes # (1.0-4.8) k/uL ABG pCO2 (35-45) mmHg ABG pO2 (83-108) mmHg ABG HCO3 (21-25) mmol/L ABG Total CO2 (19-24) mmol/L Sodium (137-145) mmol/L Chloride (98-107) mmol/L Carbon Dioxide (22-30) mmol/L Creatinine (0.66-1.25) mg/dL Glucose (74-99) mg/dL POC Glucose (mg/dL) 239 H 209 H (75-99) mg/dL Calcium (8.4-10.2) mg/dL Lactate Dehydrogenase (313-618) U/L C-Reactive Protein (<1.0) mg/dL Total Protein (6.3-8.2) g/dL Albumin (3.5-5.0) g/dL Microbiology - Last 24 Hours (Table) 11/17/21 15:15 Blood Culture - Final Blood No Growth after 144 hours 11/17/21 15:35 Blood Culture - Final Blood No Growth after 144 hours 11/20/21 20:45 Gram Stain - Final Sputum Sputum Culture - Final Staphylococcus aureus Bibi albicans Assessment and Plan Assessment: 1. Postop day #1 for IVC filter placement for pulmonary embolism with relative contraindication to anticoagulation 2. Bilateral pulmonary emboli on Lovenox 3. Acute bleed related to tracheostomy 4. Acute Hypoxic respiratory failure related to COVID-19 pneumonia status post intubation, tracheostomy and PEG tube placement 5. History of diabetes mellitus type 2 with diabetic neuropathy 6. Epistaxis, resolved 7. History of obstructive sleep apnea Plan: 1. Continue symptomatic and supportive care 2. Continue ICU management Thank you for this consultation, vascular surgery will sign off at this time. The impression and plan of care has been dictated as directed. Dr. Larsen I performed a history and examination of this patient, discussed the same with the dictator. I agree with the dictator's note ,documented as a scribe. Any additional findings or plans will be noted.
[2021-11-24 11:55] LABS: Glucose,Whole Blood 194 mg/dL (75-99)
--- NOTE | 2021-11-24 12:55 | P.PN ---
Progress Note - Text Progress Note Date: 11/24/21 Chief Complaint: Short of breath This is a pleasant 61-year-old patient, chronic stable medical conditions include diabetes, hypertension, hyperlipidemia, osteoarthritis, peripheral neuropathy, chronic gout. Patient presents with increasing shortness of breath. Cough. Clear sputum. Fever and chills. Tired rundown decrease appetite and diarrhea about 2 times a day. Patient tested positive for COVID-19 on October 09. His initial rapid COVID-19 was negative. In the send out came back positive. Patient did not take the vaccine against COVID-19. He is on 8 L of oxygen this morning. He is outside the window for Remdesivir. Admitted with COVID 19 pneumonitis, acute hypoxic respiratory failure. Started on Decadron. IV fluids. October 26 chest CTA showed bilateral pulmonary embolism. Breathing cord worse in October 30 patient is intubated. Requiring various drips. 2 feeding was started. November 10 patient got a tracheostomy and a PEG tube. Patient subsequently had a large bleed from the tracheostomy site. Desaturated. Tracheostomy had to be removed. Bedside bronchoscopy was done. Large blood loss was removed. Was put back on the ventilator/intubated. Required FFP. November 19 tracheostomy revision done. Lovenox resume. November 22 patient had bleeding a cane around the tracheostomy site. Bedside bronchoscopy was done large amount of blood cause was removed. Tracheostomy was resecured. November [address] Haskell filter [address] by Dr[address] Boothe. In the ICU patient been on different drips including propofol, fentanyl, Nimbex, cleviprex. November 24: ICU. Ventilator: FiO2 55 PEEP of 10. 2 feeding at 33 mL an hour. Patient off cleviprex. Oral amlodipine, losartan was added. Drips include fentanyl, propofol, Nimbex. Nimbex and being weaned off. Review of systems: Patient intubated Active Medications Acetaminophen (Acetaminophen Tab 325 Mg Tab) 650 mg PO Q6HR PRN PRN Reason: Mild Pain or Fever > 100.5 Last Admin: 11/20/21 23:56 Dose: 650 mg Documented by: Albuterol Sulfate (Albuterol Hfa Inhaler) 2 puff INHALATION RT-QID PRN PRN Reason: Shortness Of Breath Last Admin: 11/22/21 15:39 Dose: 2 puff Documented by: Amlodipine Besylate (Amlodipine 10 Mg Tab) 10 mg PO DAILY [facility] Last Admin: 11/24/21 10:54 Dose: 10 mg Documented by: Artificial Tears (Artificial Tears-Hypromellose Drops 15 Ml Btl) 2 drops BOTH EYES Q4HR [facility] Last Admin: 11/24/21 11:01 Dose: 2 drops Documented by: Ascorbic Acid (Ascorbic Acid 500 Mg Tab) 1,000 mg PO DAILY [facility] Last Admin: 11/24/21 08:58 Dose: 1,000 mg Documented by: Bisacodyl (Bisacodyl 10 Mg Supp) 10 mg RECTAL BID [facility] Last Admin: 11/24/21 09:01 Dose: Not Given Documented by: Chlorhexidine Gluconate (Chlorhexidine Gluconate 15 Ml Cup) 15 ml MUCOUS MEM BID [facility] Last Admin: 11/24/21 08:58 Dose: 15 ml Documented by: Cholecalciferol (Cholecalciferol 25 Mcg (1000 Iu) Tablet) 25 mcg PO DAILY [facility] Last Admin: 11/24/21 08:59 Dose: 25 mcg Documented by: Dexamethasone Sodium Phosphate (Dexamethasone Sod Phosphate 10 Mg/Ml 1 Ml Vial) 6 mg IVP DAILY [facility] Last Admin: 11/24/21 08:58 Dose: 6 mg Documented by: Furosemide (Furosemide 10 Mg/Ml 4 Ml Vial) 40 mg IV BID [facility] Hydralazine HCl (Hydralazine Hcl 20 Mg/Ml 1 Ml Vial) 20 mg IVP Q4HR PRN PRN Reason: Blood Pressure - High SBP >160 Last Admin: 11/23/21 21:11 Dose: 20 mg Documented by: Propofol 1,000 mg/ IV Solution 100 mls @ 0 mls/hr IV .Q0M [facility]; Protocol Last Admin: 11/24/21 11:36 Dose: 50 mcg/kg/min, 38.7 mls/hr Documented by: Fentanyl Citrate 2,500 mcg/ (Sodium Chloride) 250 mls @ 4.082 mls/hr IV .Q24H [facility]; Protocol Last Admin: 11/24/21 09:44 Dose: 2 mcg/kg/hr, 16.329 mls/hr Documented by: Clevidipine 25 mg/ IV Solution 50 mls @ 2 mls/hr IV .Q24H [facility]; Protocol Last Titration: 11/24/21 11:36 Dose: 0 mg/hr, 0 mls/hr Documented by: Anidulafungin 100 mg/ Sodium (Chloride) 100 mls @ 84 mls/hr IVPB DAILY@1200 [facility] Last Admin: 11/24/21 11:01 Dose: 84 mls/hr Documented by: Cefazolin Sodium 2 gm/ Sodium (Chloride) 50 mls @ 100 mls/hr IVPB Q8HR [facility] Last Admin: 11/24/21 09:00 Dose: 100 mls/hr Documented by: Insulin Aspart (Insulin Aspart (Novolog) 100 Unit/Ml Vial) 0 unit SQ Q6HR [facility]; Protocol Last Admin: 11/24/21 12:32 Dose: 5 unit Documented by: Insulin Detemir (Insulin Detemir (Levemir) 100 Unit/Ml Syr) 28 unit SQ [facility] Lactulose (Lactulose 20 Gm/30 Ml Cup) 10 gm PO BID [facility] Last Admin: 11/24/21 09:01 Dose: Not Given Documented by: Losartan Potassium (Losartan 50 Mg Tab) 100 mg PO [facility] Metoprolol Tartrate (Metoprolol Tartrate 50 Mg Tab) 50 mg PO BID [facility] Last Admin: 11/24/21 08:59 Dose: 50 mg Documented by: Miscellaneous Information (Potassium Replacement Protocol 1 Each Misc) 1 each MISCELLANE DAILY PRN; Protocol PRN Reason: Per Protocol Pantoprazole Sodium (Pantoprazole 40 Mg Tablet) 40 mg PO AC-BRKFST [facility] Pregabalin (Pregabalin 100 Mg Cap) 200 mg PO BID [facility] Last Admin: 11/24/21 08:58 Dose: 200 mg Documented by: Sertraline HCl (Sertraline 50 Mg Tab) 50 mg PO DAILY [facility] Last Admin: 11/24/21 08:58 Dose: 50 mg Documented by: Zinc Sulfate (Zinc Sulfate 220 Mg Cap) 220 mg PO DAILY [facility] Last Admin: 11/24/21 08:59 Dose: 220 mg Documented by: Social history: Patient is on Social Security. Does not smoke or drink alcohol. Patient's daughters family lives with him. Family history: Father at the age of 40 with heart attack Physical examination: VITAL SIGNS: 99.2, 57, 30, 11/45, 100% on ventilator GENERAL: Laying in bed, . PEG tube . Tracheostomy tube. LUNGS: Respiratory rate increased,. PSYCH: Unable to assess Rest of the exam per nursing and pulmonary INVESTIGATIONS, reviewed in the clinical context: November 24: White count 19.1 hemoglobin 9.4 potassium 4.5 creatinine 0.46 Blood culture positive for Staphylococcus epidermidis/coagulates negative. Sputum culture: MSSA, Bibi albicans November 17: White count 16.9 hemoglobin 11.1 potassium 3.3 creatinine 0.4 November 16: White count 17 hemoglobin 8.1 potassium 3.2 creatinine 0.5 to October 28: D-dimer 13.4 to October 26: D-dimer 8.48 CRP 24 Chest CTA [October 26: biLateral pulmonary embolism Doppler ultrasound lower extremity: Negative for DVT October 24: White count 9.7 hemoglobin 15.3 platelets 221 d-dimer 1.93 progression 4.2 creatinine 0.71 CRP 5.5 pro-calcitonin 0.08 White count 9.9 hemoglobin 16 platelets 234 d-dimer 0.98 sodium 141 potassium 3.4 creatinine 0.81 Lactic acid 2.9 LDH 1422 CRP 7.5 EKG tracing personally reviewed by me-normal sinus rhythm. Nonspecific ST segment changes. Chest x-ray film personally reviewed by me-bilateral infiltrates Assessment and plan: -Acute severe COVID 19 pneumonitis in a patient who did not take the COVID-19 vaccine: Slow to respond Dexamethasone, vitamin C, vitamin D, zinc. outside the window for Remdesivir. -Acute hypoxic respiratory failure from COVID-19: Slow to respond intubated October 30. FiO2 100/10 -Active bleeding around tracheostomy into the trachea and lungs. Status post bronchoscopy. Evacuation of large amounts of blood clot. Tracheostomy removed. Patient reintubated. revision tracheostomy tube - November 19. Lovenox was resumed. November 22: At the tracheostomy site: re- bleeding with blood clots followed by bronchoscopy. Revision of tracheostomy done. -Bilateral pulmonary embolism secondary to COVID-19 Eliquis -discontinued because of bleeding. No Haskell filter per vascular. Lovenox resumed after revision tracheostomy. Lovenox discontinued, because of bleeding: November 22. Lakia filter placed by Dr. Boothe on November 23 -Essential hypertension: Uncontrolled Lopressor 50 mg twice a day, amlodipine 10 mg a day. Cozaar 100 mg daily at bedtime -Diabetes mellitus type 2, on oral hypoglycemic, uncontrolled with hyperglycemia Increase Levemir 28 units daily at bedtime. Follow Accu-Cheks -Chronic insomnia for medical conditions Elavil 50 mg daily at bedtime -Hyperlipidemia TriCor 48 mg daily -Hypoalbuminemia Acute phase reactant -Obstructive sleep apnea On CPAP at home -Pneumomediastinum and subcutis emphysema complications of COVID-19/pneumonia. - right upper apical pneumothorax less than 5%. -Diabetic peripheral neuropathy Lyrica 200 mg twice daily -Full code Today's drips include fentanyl, propofol, Nimbex, On the ventilator. Tube feeding. Nimbex is being weaned off. Off Cleviprex. Amlodipine losartan has been added.
[2021-11-24] MEDS: hydrALAZINE HCL 20 MG/ML 1 ML VIAL IVP PRN ×2 (15:01→21:18)
--- NOTE | 2021-11-24 15:06 | P.PN ---
Subjective Progress Note Date: 11/24/21 CHIEF COMPLAINT: COVID-19 pneumonia HISTORY OF PRESENT ILLNESS: Patient is in the ICU on mechanical ventilation. Patient had bleeding again at the tracheostomy site due to the Lovenox. He is status post revision of tracheostomy and partial thyroidectomy on 11/22. He also required bronchoscopy with suctioning of blood clots from the airway. Patient had IVC filter placement done 11/23. Patient's Lovenox was discontinued. Patient has had no further bleeding from tracheostomy site. Patient is tolera ting tube feeds. Patient receiving Lasix for fluid overload. Afebrile WBC 19.1 hemoglobin 9.4 Patient seen and examined with Dr. daniel PHYSICAL EXAM: VITAL SIGNS: Reviewed. GENERAL: Well-developed in no acute distress. HEENT: Head is atraumatic, normocephalic. Tracheostomy site clean dry and intact ABDOMEN: Soft. Nondistended. Nontender. PEG tube site clean dry and intact NEUROLOGIC: Intubated and sedated ASSESSMENT: 1. Acute hypoxic respiratory failure secondary to COVID-19 pneumonia requiring mechanical ventilation 2. Severe protein calorie malnutrition 3. Bilateral pulmonary emboli 4. Bleeding at tracheostomy site status post second tracheostomy revision PLAN: -Continue ICU management and supportive care -Continue tube feeds -Continue to monitor tracheostomy site Physician Gmat Instructor note has been reviewed by physician. Signing provider agrees with the documented findings, assessment, and plan of care. Objective - Vital Signs Vital signs: Vital Signs Temp 99.2 F 11/24/21 12:00 Pulse 52 L 11/24/21 14:00 Resp 30 H 11/24/21 14:00 BP 118/60 11/24/21 13:00 Pulse Ox 100 11/24/21 14:00 Intake & Output 11/23/21 11/24/21 11/24/21 18:59 06:59 18:59 Intake Total 9614.982 1610.925 1325.336 Output Total 2115 940 1550 Balance -489.426 738.925 -224.664 Weight 129 kg Intake: IV 380 299 261 0.9 Normal Saline @ 20 mL 200 260 140 /hr KVO Pressure bag 30 39 21 ceFAZolin 2 gm In Sodium 100 100 Chloride 0.9% 50 ml @ 100 mls/hr IVPB Q8HR [facility] Rx# :[id number] Intake, IV Titration 4877.748 4668.925 743.336 Amount Anidulafungin 100 mg In 100 Sodium Chloride 0.9% 100 ml @ 84 mls/hr IVPB DAILY @1200 [facility] Rx#:[id number] Cisatracurium 200 mg In 364.524 149.705 249.710 Sodium Chloride 0.9% 180 ml @ 1 MCG/KG/MIN 7.638 mls/hr IV .Q24H [facility] Rx#: [id number] Cisatracurium 200 mg In 21 Sodium Chloride 0.9% 180 ml @ 1.5 MCG/KG/MIN 10.8 mls/hr IV .[id number] [facility] Rx #:[id number] Clevidipine Butyrate 25 119.100 323.567 60.000 mg In Empty Bag 1 bag @ 1 MG/HR 2 mls/hr IV .Q24H [facility] Rx#:[id number] fentaNYL (PF) 2,500 mcg 151.656 170.638 133.626 In Sodium Chloride 0.9% 200 ml @ 0.5 MCG/KG/HR 4. 082 mls/hr IV .Q24H [facility] Rx#:[id number] propofoL 1,000 mg In 299.294 456.015 300 Empty Bag 1 bag @ Titrate IV .Q0M [facility] Rx#: [id number] Tube Feeding 60 220 231 Other 130 60 90 Output: Urine 2115 940 1550 Other: Voiding Method Indwelling Catheter Indwelling Catheter Indwelling Catheter ABP, PAP, CO, CI - Last Documented Arterial Blood Pressure 120/47 - Labs CBC & Chem 7: 11/24/21 04:35 11/24/21 04:35 Labs: Abnormal Lab Results - Last 24 Hours (Table) 11/23/21 11/24/21 11/24/21 Range/Units 17:51 00:03 04:35 WBC 19.1 H (3.8-10.6) k/uL RBC 2.77 L (4.30-5.90) m/uL Hgb 9.4 L (13.0-17.5) gm/dL Hct 28.5 L (39.0-53.0) % MCV 103.1 H (80.0-100.0) fL Neutrophils # 16.8 H (1.3-7.7) k/uL Lymphocytes # 0.9 L (1.0-4.8) k/uL ABG pCO2 (35-45) mmHg ABG pO2 (83-108) mmHg ABG HCO3 (21-25) mmol/L ABG Total CO2 (19-24) mmol/L Sodium (137-145) mmol/L Chloride (98-107) mmol/L Carbon Dioxide (22-30) mmol/L Creatinine (0.66-1.25) mg/dL Glucose (74-99) mg/dL POC Glucose (mg/dL) 118 H 192 H (75-99) mg/dL Calcium (8.4-10.2) mg/dL Lactate Dehydrogenase (313-618) U/L C-Reactive Protein (<1.0) mg/dL Total Protein (6.3-8.2) g/dL Albumin (3.5-5.0) g/dL 11/24/21 11/24/21 11/24/21 Range/Units 04:35 05:48 06:10 WBC (3.8-10.6) k/uL RBC (4.30-5.90) m/uL Hgb (13.0-17.5) gm/dL Hct (39.0-53.0) % MCV (80.0-100.0) fL Neutrophils # (1.3-7.7) k/uL Lymphocytes # (1.0-4.8) k/uL ABG pCO2 57 H (35-45) mmHg ABG pO2 75 L (83-108) mmHg ABG HCO3 35 H (21-25) mmol/L ABG Total CO2 37 H (19-24) mmol/L Sodium 134 L (137-145) mmol/L Chloride 95 L (98-107) mmol/L Carbon Dioxide 31 H (22-30) mmol/L Creatinine 0.46 L (0.66-1.25) mg/dL Glucose 241 H (74-99) mg/dL POC Glucose (mg/dL) 239 H (75-99) mg/dL Calcium 8.3 L (8.4-10.2) mg/dL Lactate Dehydrogenase 656 H (313-618) U/L C-Reactive Protein 6.7 H (<1.0) mg/dL Total Protein 6.2 L (6.3-8.2) g/dL Albumin 3.1 L (3.5-5.0) g/dL 11/24/21 11/24/21 Range/Units 06:12 11:54 WBC (3.8-10.6) k/uL RBC (4.30-5.90) m/uL Hgb (13.0-17.5) gm/dL Hct (39.0-53.0) % MCV (80.0-100.0) fL Neutrophils # (1.3-7.7) k/uL Lymphocytes # (1.0-4.8) k/uL ABG pCO2 (35-45) mmHg ABG pO2 (83-108) mmHg ABG HCO3 (21-25) mmol/L ABG Total CO2 (19-24) mmol/L Sodium (137-145) mmol/L Chloride (98-107) mmol/L Carbon Dioxide (22-30) mmol/L Creatinine (0.66-1.25) mg/dL Glucose (74-99) mg/dL POC Glucose (mg/dL) 209 H 194 H (75-99) mg/dL Calcium (8.4-10.2) mg/dL Lactate Dehydrogenase (313-618) U/L C-Reactive Protein (<1.0) mg/dL Total Protein (6.3-8.2) g/dL Albumin (3.5-5.0) g/dL Microbiology - Last 24 Hours (Table) 11/17/21 15:15 Blood Culture - Final Blood No Growth after 144 hours 11/17/21 15:35 Blood Culture - Final Blood No Growth after 144 hours
[2021-11-24 17:42] LABS: Glucose,Whole Blood 229 mg/dL (75-99)
[2021-11-24] MEDS ORDERED: FUROSEMIDE 10 MG/ML 4 ML VIAL IV SCH (21:00)
[2021-11-24] MEDS: INSULIN DETEMIR (LEVEMIR) 100 UNIT/ML SYR SQ SCH (21:30)
--- NOTE | 2021-11-24 21:30 | P.PN ---
Subjective Progress Note Date: 11/24/21 Principal diagnosis: Pneumonia, rash, leukocytosis Patient is a 61-year male admitted to the hospital October 23, 2021 patient diagnosed with COVID-19 pneumonia did have a respiratory failure requiring intubation failed to be extubated status post trach and PEG on November 10, 2021 patient also have a component of secondary to pneumonia with MSSA patient has received more than 2 weeks course of Zosyn which was discontinued 11/17/2021 because of rash. On today's evaluation that is 11/24/2021 the patient continues to be afebrile, patient is hemodynamically stable not requiring any pressor support, the patient FiO2 is up to 100 %, no significant purulent secretion through the ET has been reported by nursing staff, patient been tolerating his tube feeds and no abdirizak rrhea has been reported , no other changes in his clinical condition Objective - Vital Signs Vital signs: Vital Signs Temp 99.2 F 11/24/21 12:00 Pulse 54 L 11/24/21 13:00 Resp 31 H 11/24/21 13:00 BP 118/60 11/24/21 13:00 Pulse Ox 100 11/24/21 13:00 Intake & Output 11/23/21 11/24/21 11/24/21 18:59 06:59 18:59 Intake Total 4393.965 5888.925 1169.336 Output Total 2115 940 1200 Balance -489.426 738.925 -30.664 Weight 129 kg Intake: IV 380 299 238 0.9 Normal Saline @ 20 mL 200 260 120 /hr KVO Pressure bag 30 39 18 ceFAZolin 2 gm In Sodium 100 100 Chloride 0.9% 50 ml @ 100 mls/hr IVPB Q8HR [facility] Rx# :[id number] Intake, IV Titration 6722.693 1488.925 643.336 Amount Anidulafungin 100 mg In 100 Sodium Chloride 0.9% 100 ml @ 84 mls/hr IVPB DAILY @1200 [facility] Rx#:[id number] Cisatracurium 200 mg In 364.524 149.705 249.710 Sodium Chloride 0.9% 180 ml @ 1 MCG/KG/MIN 7.638 mls/hr IV .Q24H [facility] Rx#: [id number] Cisatracurium 200 mg In 21 Sodium Chloride 0.9% 180 ml @ 1.5 MCG/KG/MIN 10.8 mls/hr IV .[id number] [facility] Rx #:[id number] Clevidipine Butyrate 25 119.100 323.567 60.000 mg In Empty Bag 1 bag @ 1 MG/HR 2 mls/hr IV .Q24H [facility] Rx#:[id number] fentaNYL (PF) 2,500 mcg 151.656 170.638 133.626 In Sodium Chloride 0.9% 200 ml @ 0.5 MCG/KG/HR 4. 082 mls/hr IV .Q24H [facility] Rx#:[id number] propofoL 1,000 mg In 299.294 456.015 200 Empty Bag 1 bag @ Titrate IV .Q0M [facility] Rx#: [id number] Tube Feeding 60 220 198 Other 130 60 90 Output: Urine 2115 940 1200 Other: Voiding Method Indwelling Catheter Indwelling Catheter Indwelling Catheter ABP, PAP, CO, CI - Last Documented Arterial Blood Pressure 110/43 - Exam GENERAL DESCRIPTION: Middle-age male intubated on the vent RESPIRATORY SYSTEM: Unlabored breathing , decreased breath sounds at bases HEART: S1 S2 regular rate and rhythm ,no loud murmurs ABDOMEN: Soft , no tenderness EXTREMITIES: No edema feet - Labs CBC & Chem 7: 11/24/21 04:35 11/24/21 04:35 Labs: Abnormal Lab Results - Last 24 Hours (Table) 11/23/21 11/24/21 11/24/21 Range/Units 17:51 00:03 04:35 WBC 19.1 H (3.8-10.6) k/uL RBC 2.77 L (4.30-5.90) m/uL Hgb 9.4 L (13.0-17.5) gm/dL Hct 28.5 L (39.0-53.0) % MCV 103.1 H (80.0-100.0) fL Neutrophils # 16.8 H (1.3-7.7) k/uL Lymphocytes # 0.9 L (1.0-4.8) k/uL ABG pCO2 (35-45) mmHg ABG pO2 (83-108) mmHg ABG HCO3 (21-25) mmol/L ABG Total CO2 (19-24) mmol/L Sodium (137-145) mmol/L Chloride (98-107) mmol/L Carbon Dioxide (22-30) mmol/L Creatinine (0.66-1.25) mg/dL Glucose (74-99) mg/dL POC Glucose (mg/dL) 118 H 192 H (75-99) mg/dL Calcium (8.4-10.2) mg/dL Lactate Dehydrogenase (313-618) U/L C-Reactive Protein (<1.0) mg/dL Total Protein (6.3-8.2) g/dL Albumin (3.5-5.0) g/dL 11/24/21 11/24/21 11/24/21 Range/Units 04:35 05:48 06:10 WBC (3.8-10.6) k/uL RBC (4.30-5.90) m/uL Hgb (13.0-17.5) gm/dL Hct (39.0-53.0) % MCV (80.0-100.0) fL Neutrophils # (1.3-7.7) k/uL Lymphocytes # (1.0-4.8) k/uL ABG pCO2 57 H (35-45) mmHg ABG pO2 75 L (83-108) mmHg ABG HCO3 35 H (21-25) mmol/L ABG Total CO2 37 H (19-24) mmol/L Sodium 134 L (137-145) mmol/L Chloride 95 L (98-107) mmol/L Carbon Dioxide 31 H (22-30) mmol/L Creatinine 0.46 L (0.66-1.25) mg/dL Glucose 241 H (74-99) mg/dL POC Glucose (mg/dL) 239 H (75-99) mg/dL Calcium 8.3 L (8.4-10.2) mg/dL Lactate Dehydrogenase 656 H (313-618) U/L C-Reactive Protein 6.7 H (<1.0) mg/dL Total Protein 6.2 L (6.3-8.2) g/dL Albumin 3.1 L (3.5-5.0) g/dL 11/24/21 11/24/21 Range/Units 06:12 11:54 WBC (3.8-10.6) k/uL RBC (4.30-5.90) m/uL Hgb (13.0-17.5) gm/dL Hct (39.0-53.0) % MCV (80.0-100.0) fL Neutrophils # (1.3-7.7) k/uL Lymphocytes # (1.0-4.8) k/uL ABG pCO2 (35-45) mmHg ABG pO2 (83-108) mmHg ABG HCO3 (21-25) mmol/L ABG Total CO2 (19-24) mmol/L Sodium (137-145) mmol/L Chloride (98-107) mmol/L Carbon Dioxide (22-30) mmol/L Creatinine (0.66-1.25) mg/dL Glucose (74-99) mg/dL POC Glucose (mg/dL) 209 H 194 H (75-99) mg/dL Calcium (8.4-10.2) mg/dL Lactate Dehydrogenase (313-618) U/L C-Reactive Protein (<1.0) mg/dL Total Protein (6.3-8.2) g/dL Albumin (3.5-5.0) g/dL Microbiology - Last 24 Hours (Table) 11/17/21 15:15 Blood Culture - Final Blood No Growth after 144 hours 11/17/21 15:35 Blood Culture - Final Blood No Growth after 144 hours Assessment and Plan (1) Fever Current Visit: Yes Status: Acute Code(s): R50.9 - FEVER, UNSPECIFIED SNOMED Code(s): 264711613 (2) Rash Current Visit: Yes Status: Acute Code(s): R21 - RASH AND OTHER NONSPECIFIC SKIN ERUPTION SNOMED Code(s): 210639276 (3) COVID-19 Current Visit: Yes Status: Acute Code(s): U07.1 - COVID-19 SNOMED Code(s): 672801550 Plan: 1-Patient with rash likely related to Zosyn which has been discontinued rash has resolved. 2 elevated white count question of possible oropharyngeal candidiasis patient to continue Eraxis 3-patient did have a low-grade fever , for the patient did have a repeat blood and sputum cultures and blood cultures are so far negative, the sputum culture is growing MSSA and Bibi, patient to continue with the cefazolin white count is slightly worsening and will monitor closely continue supportive care Time with Patient: Less than 30
[2021-11-24 23:32] LABS: Glucose,Whole Blood 211 mg/dL (75-99)
[2021-11-25] MEDS: CLEVIDIPINE BUTYRATE 25 MG in EMPTY BAG 1 BAG IV SCH ×2 (00:25→19:30)
[2021-11-25 03:53] LABS: Basophils % (A) 0 %; Eosinophils # (A) 0.1 k/uL (0-0.7); Eosinophils % (A) 1 %; HCT 23.3 % (39.0-53.0); Hypochromasia Moderate; Lymphocytes # (A) 2.1 k/uL (1.0-4.8); Lymphocytes % (A) 28 %; MCH 32.2 pg (25.0-35.0); MCHC 31.3 g/dL (31.0-37.0); MCV 102.7 fL (80.0-100.0); Macrocytosis Slight; Mean Platelet Volume 8.9; Monocytes # (A) 0.6 k/uL (0-1.0); Monocytes % (A) 7 %; Neutrophils # (A) 4.7 k/uL (1.3-7.7); Neutrophils % (A) 62 %; Platelet Count 193 k/uL (150-450); RBC 2.27 m/uL (4.30-5.90); RDW 15.5 % (11.5-15.5); WBC 7.6 k/uL (3.8-10.6)
[2021-11-25 03:57] LABS: HGB 7.3 gm/dL (13.0-17.5)
[2021-11-25 04:08] LABS: ALT 25 U/L (4-49); AST 14 U/L (17-59); African American GFR (CKD) >90 (>60 ml/min/1.73 sqM); Albumin 2.4 g/dL (3.5-5.0); Alkaline Phosphatase 57 U/L (38-126); Anion Gap 2 mmol/L; Blood Urea Nitrogen 20 mg/dL (9-20); C Reactive Protein 4.5 mg/dL (<1.0); Calcium 7.8 mg/dL (8.4-10.2); Carbon Dioxide 35 mmol/L (22-30); Chloride 97 mmol/L (98-107); Glucose 153 mg/dL (74-99); LDH 350 U/L (313-618); Non-African American GFR(CKD) >90 (>60 ml/min/1.73 sqM); Potassium 3.1 mmol/L (3.5-5.1); Sodium 134 mmol/L (137-145); Total Bilirubin 0.7 mg/dL (0.2-1.3); Total Protein 4.8 g/dL (6.3-8.2)
[2021-11-25] MEDS: ARTIFICIAL TEARS-HYPROMELLOSE DROPS 15 ML BTL BOTH EYES SCH ×6 (04:59→23:14)
[2021-11-25 05:37] LABS: Glucose,Whole Blood 156 mg/dL (75-99)
[2021-11-25] MEDS: INSULIN ASPART (NovoLOG) 100 UNIT/ML VIAL SQ SCH ×4 (05:47→23:42)
[2021-11-25 05:49] LABS: ABG Base Excess 14.9 mmol/L; ABG HCO3 38 mmol/L (21-25); ABG PCO2 47 mmHg (35-45); ABG PH 7.52 (7.35-7.45); ABG PO2 208 mmHg (83-108); ABG TCO2 39 mmol/L (19-24); Allen Test Performed? Yes
[2021-11-25] MEDS: fentaNYL (PF) 2,500 MCG in SODIUM CHLORIDE 0.9% 200 ML IV SCH (06:06)
[2021-11-25] MEDS: PANTOPRAZOLE 40 MG TABLET PO SCH (06:57)
--- NOTE | 2021-11-25 08:11 | XR ---
EXAMINATION TYPE: XR chest 1V portable DATE OF EXAM: 11/25/2021 COMPARISON: Chest x-ray 11/24/2021 HISTORY: Covid 19 infection, abnormal chest x-ray TECHNIQUE: Single frontal view of the chest is obtained. FINDINGS: Right-sided PICC line is present, distal tip is overlying superior vena cava level, left s ubclavian central venous catheter has been removed. Tracheostomy tube is overlying the tracheal air c olumn. There is no evident pneumothorax or pleural effusion. Cardiac mediastinal silhouette is likely stable accounting for differences in technique. Diffuse interstitial airspace disease within the harjeet gs is again noted. Surgical clips are present over the right neck. Thoracic spondylosis is present. IMPRESSION: Findings are similar to prior exam
[2021-11-25] MEDS: SERTRALINE 50 MG TAB PO SCH (09:36)
[2021-11-25] MEDS: CHLORHEXIDINE GLUCONATE 15 ML CUP MUCOUS MEM SCH ×2 (09:36→21:17)
[2021-11-25] MEDS: PREGABALIN 100 MG CAP PO SCH ×2 (09:36→21:00)
[2021-11-25] MEDS: amLODIPine 10 MG TAB PO SCH (09:36)
[2021-11-25] MEDS: FUROSEMIDE 10 MG/ML 4 ML VIAL IV SCH (09:36)
[2021-11-25] MEDS: ZINC SULFATE 220 MG CAP PO SCH (09:36)
[2021-11-25] MEDS: ASCORBIC ACID 500 MG TAB PO SCH (09:36)
[2021-11-25] MEDS: CHOLECALCIFEROL 25 MCG (1000 IU) TABLET PO SCH (09:36)
[2021-11-25] MEDS: METOPROLOL TARTRATE 50 MG TAB PO SCH ×2 (09:37→21:00)
[2021-11-25] MEDS: bisacodyL 10 MG SUPP RECTAL SCH ×2 (09:38→21:01)
[2021-11-25] MEDS: LACTULOSE 20 GM/30 ML CUP PO SCH ×2 (09:39→21:03)
[2021-11-25] MEDS: DEXAMETHASONE SOD PHOSPHATE 10 MG/ML 1 ML VIAL IVP SCH (09:40)
[2021-11-25] MEDS: DEXMEDETOMIDINE/0.9% NACL(PMX) 400 MCG in EMPTY BAG 1 BAG IV SCH ×3 (09:54→19:45)
--- NOTE | 2021-11-25 11:20 | P.PN ---
Subjective Progress Note Date: 11/25/21 Principal diagnosis: Acute COVID-19 pneumonia 61-year-old male patient with past medical history of diabetes mellitus type 2 with diabetic neuropathy, hypertension, hyperlipidemia, previous history of CVA, rheumatoid arthritis, obstructive sleep apnea S/P UPPP, history of right eye melanoma with previous surgeries, BPH with previous TURP, chronic lower extremity edema, cellulitis, gout, presented to the emergency department on 10/23/2021 at 240 3 in the morning with complaints of severe shortness of breath, cough, congestion. Patient states he has had symptoms since October 09, initially was tested via rapid COVID-19 PCR test which was negative however the send out PCR test came back positive. He states over the last 2 weeks his symptoms continue to worsen, he feels weak, short of breath, complains of cough and chest congestion. No chest pain. He has not been vaccinated against COVID- 19. He does endorse fever, malaise, nausea, abdominal pain. His chest x-ray showed moderate pulmonary testicular edema. His lab work has been reviewed showing white blood cell count of 9.9, hemoglobin 16, platelet count is 234, neutrophils 8.1, lymphocyte count is 1.49, INR is 1.1, sodium is 141, potassium is 3.4, chloride is 101, CO2 is 23, BUN is 23 creatinine 0.81, plasma lactic acid was 2.9 and is currently down to 1.7, LDH was 1422, proBNP was 185, LFTs were within normal limits. Patient is currently requiring 8 L of oxygen his pulse ox is 96%, he still has a congested cough, he has been afebrile, he is short of breath with any exertion. Denies any hemoptysis or chest discomfort. Has been started on Decadron 6 mg daily, he was given IV hydration with 1 L b olus, and currently receiving 0.9 normal saline at a rate of 1:30 ML per hour, his lactic acid has improved. Patient is outside the window for Remdesivir. On 11/08/2021 patient seen in follow-up in the intensive care unit, patient was transferred to the intensive care on 10/29/2022, and was intubated in next day on 10/30/2022. He currently remains intubated, sedated and paralyzed, he is currently on assist control mode of ventilation with a rate of 32, tidal arm is 450, FiO2 of 55% and PEEP of 16. This morning's blood gas has been reviewed showing pO2 of 59, pCO2 of 42, and pH of 7.5 one, this was done on the above- mentioned event stated settings. Patient is currently on 0.9 at 20 ML per hour, fentanyl infusion at 2 mics per kilo per minute, diprivan at 60 mics per kilo per minute, Nimbex at 2 mics per kilo per minute, he is tolerating his tube feedings, he is on vital high-protein at 23 with a goal of 23 and standard water flushes, for the past few days patient was given a paralytic holiday's however he does not tolerate them well, desaturates, and requires to be re-paralyzed, yesterday paralytic holiday was not attempted. His chest x-ray today shows bilateral multifocal increased opacities consistent with a COVID 19 infection and ARDS, no significant change from one day earlier. Hemodynamically patient has been stable, he remains in sinus mechanism, not requiring any vasopressor support, he remains on antibiotics in the form of Zosyn for positive blood cultures, his last set of blood cultures from 11/06/2021 showed 2 coagulase- negative staph organisms, blood culture from the same day showed no growth, his sputum culture showed few PMNs, moderate gram-positive cocci. Patient has been afebrile, hemodynamically he has been stable. Abdomen is soft, he is tolerating tube feedings. He is generally swollen. Overall says he transferred to the intensive care unit his weight is up by at least 7.4 kg. Patient has received intermittent doses of diuretics. He currently remains on Decadron 6 mg daily, she is on Eliquis 5 mg twice daily for evidence of PE that was diagnosed during this admission, yesterday he received a dose of IV Lasix 60 mg, however she still and +205 mL net fluid balance over the last 24 hours. He remains on multivitamins. His labs have been reviewed, his white blood cell count is 7.5, hemoglobin is 10.0, sodium is 136, potassium 3.5, chloride is 102, CO2 30, BUN is 20, creatinine 0.51, his last pro-calcitonin from 11/06/2021 was 0.31, which was actually increasing from the previous value of 0.12. And from the admission value of 0.08. On 11/23/2021 patient seen in follow-up in the intensive care unit, yesterday patient had a major rebleeding episode from his surgical wound at the tracheostomy site. Patient was bleeding into his airways, patient was becoming hypoxic developing high peak airway pressures and was becoming extremely difficult to ventilate. Patient had emergent bronchoscopy with BAL at the bedside, surgery was called to the bedside and revision of tracheostomy was performed at the bedside. Patient was orally intubated with assistance of bronchoscope, significant amount of blood in the oropharynx was encountered. Anesthesiology was also at the bedside assisting with the procedure. Patient had his bleeding finally controlled and was given protamine sulfate, tranexamic acid and the bleeders were also surgically cauterized. His anticoagulation has remained on hold. Patient is currently trached to the vent, with assist-control mode of ventilation with a rate of 30, tidal vital 350, FiO2 50% and PEEP of 10, this morning's blood gas shows pO2 of 96, pCO2 48, pH of 7.47, chest x-ray shows bilateral infiltrates and pleural effusion there is stable, postsurgical changes overlying the soft tissue of the neck and tracheostomy tube and central line are stable. Patient is currently sedated and paralyzed with the program 50 mics per kilo per minute, Nimbex is at 3.5 mics per kilo per hour, Cleviprex is at 18 mg per hour, point and obtain a rate of 20 ML per hour. Fentanyl is at 2 mics per kilo per minute, tube feedings are currently on hold. Today's labs have been reviewed, white blood cell count is 13.5, hemoglobin is 8.6, which is down from 9.1 on yesterday's labs, platelet count is 211, sodium is 135, potassium 3.9, chloride is 98, CO2 is 31, BUN is 15, creatinine 0.43. Pro-calcitonin level is negative at 0.21. Hemodynamic patient is stable, he is requiring Cleviprex infusion for blood pressure control. Patient currently continues on dexamethasone 6 mg twice daily, he is on daily dose of Lasix 40 mg daily, he is on antibiotics in the form of Kefzol and Eraxis per ID service, his sputum cultures were positive for staph aureus, and Bibi albicans, his blood culture from 11/03/2021 showed staph epidermidis and coagulase-negative staph likely skin contaminant. Follow blood cultures have shown no growth. Low-grade fevers overnight with a temp of 99.7F. Lovenox has been discontinued, and vascular surgery is consulted for placement of IVC filter. Patient is scheduled for the procedure today On 11/24/2021 patient seen in follow-up in the intensive care unit, he is status post IVC filter placement yesterday on 11/23/2021, tolerated procedure well, remains off all anti-coagulation. Hemodynamically stable, no recurrent rebleeding in the last 24 hours. She remains on assist control mode of ventilation with a rate of 30, tidal vital 350, FiO2 55% and PEEP of 10, this morning's blood gas shows pO2 of 75, pCO2 57, and pH of 7.39. This was done and the above-mentioned vent settings, today's chest x-ray has been reviewed showing stable diffuse bilateral infiltrates. Patient is currently sedated on Diprivan at 50 mics per kilo per minute, fentanyl infusion at 2 mics per kilo per minute, Cleviprex is a 21 mg per hour, Nimbex at 3.5 mics per kilo per minute, 0.9 normal saline at a rate of 20 ML per hour, he is tolerating tube feedings is receiving vital HP at 33 with a 33 and 30 mL water flushes every 4 hours. Patient had a PICC line placed yesterday as well, however he is additional IV access and he will need a midline placed today. Tracheostomy site is clean dry and intact, surgical packing is still in place. Today's labs have been reviewed, white blood cell count is 19.1, hemoglobin is 9.4, platelet count is 249, sodium is 134, potassium is 4.5, chloride is 95, CO2 31, BUN is 18, creatinine 0.46. Follow-up LDH is 656, improving, and CRP is 6.7, improved since admission. His had no acute events overnight, he is been hypotensive requiring high doses of Cleviprex, patient will be started on some oral antihypertensives today, and we will also drop his dexamethasone dose down to once daily. She also continues on per ID service recommendations for MSSA in his sputum cultures, his previous blood cultures also show coagulase-negative staph, and staph epidermidis. His previous sputum culture on admission was positive for strep agalactiae. Clinically he has remained stable, we'll attempt paralytic holiday today. On 11/25/2021 patient seen in follow-up in intensive care unit, he is sedated, and trached the ventilator on assist control mode of ventilation with a rate of 30, Tylenol 350, FiO2 of 55% and PEEP of 10, this point blood gas shows pO2 of 208, pCO2 of 47, and pH is 7.52, this was done on the above-mentioned ventilator settings, paralytics have been discontinued yesterday, patient was weaned off the Cleviprex drip, he was started on some oral antihypertensives including losartan, and Norvasc. He is in sinus mechanism, nursing reports the patient did have some fluctuations in his blood pressure with the low and high blood pressures, but for the most part he is staying off the Cleviprex infusion and not requiring vasopressor support. Today's chest x-ray has been reviewed going no pneumothorax, no pleural effusion, diffuse interstitial airspace disease. Patient is currently on 0.9 normal saline at a rate of 10 ML per hour, fentanyl infusion at 1.5 mics per kilo per minute, and to prevent is a 40 mics per kilo per minute, patient is tolerating his tube feedings are infusing at 33 ML per hour, vital signs have been stable overnight, no fever. Blood pressure has been stable, acute events overnight, his tracheal wound site is clean dry and intact, surgical packing is intact, his labs have been reviewed, his white count is improved and is down to 7.6, hemoglobin is 7.3, sodium is 134, potassium is 3.1, this is being replaced per protocol, chloride is 97, CO2 35, B1 is 20 creatinine 0.52. His LDH is significantly improved and is down to 350 and is now within normal range, CRP is down to 4.5. Patient is still quite sedated this morning, we'll proceed with daily traction of sedation and possibly spontaneous breathing trials today. Objective - Vital Signs Vital signs: Vital Signs Temp 99.2 F 11/25/21 08:00 Pulse 73 11/25/21 10:30 Resp 26 H 11/25/21 10:00 BP 159/105 11/25/21 10:30 Pulse Ox 92 L 11/25/21 10:30 Intake & Output 01/11/25/21 11/25/21 18:59 06:59 18:59 Intake Total 1489.750 7430.239 371.735 Output Total 2125 1055 295 Balance -297.901 364.239 76.735 Weight 128.4 kg Intake: IV 353 326 82 0.9 Normal Saline @ 20 mL 220 240 70 /hr KVO Pressure bag 33 36 12 ceFAZolin 2 gm In Sodium 100 50 Chloride 0.9% 50 ml @ 100 mls/hr IVPB Q8HR [facility] Rx# :[id number] Intake, IV Titration 991.099 637.239 160.735 Amount Cisatracurium 200 mg In 254.866 Sodium Chloride 0.9% 180 ml @ 1 MCG/KG/MIN 7.638 mls/hr IV .Q24H [facility] Rx#: [id number] Clevidipine Butyrate 25 60.000 54.599 mg In Empty Bag 1 bag @ 1 MG/HR 2 mls/hr IV .Q24H [facility] Rx#:[id number] fentaNYL (PF) 2,500 mcg 276.233 189.961 52.389 In Sodium Chloride 0.9% 200 ml @ 0.5 MCG/KG/HR 4. 082 mls/hr IV .Q24H [facility] Rx#:[id number] propofoL 1,000 mg In 400.000 392.679 108.346 Empty Bag 1 bag @ Titrate IV .Q0M [facility] Rx#: [id number] Tube Feeding 363 396 99 Other 120 60 30 Output: Urine 2125 1055 295 Other: Voiding Method Indwelling Catheter Indwelling Catheter Indwelling Catheter ABP, PAP, CO, CI - Last Documented Arterial Blood Pressure 130/71 - Exam GENERAL EXAM: Trached to the vent, sedated 61-year-old white male, on assist- control mode of ventilation with a rate of 30, tidal volume is 350, FiO2 of 55% and PEEP of 10 HEAD: Normocephalic/atraumatic. EYES: Normal reaction of pupils, equal size. Conjunctiva pink, sclera white. NOSE: Clear with pink turbinates. THROAT: No erythema or exudates. NECK: No masses, no JVD, no thyroid enlargement, no adenopathy. Midline tracheostomy, patient is connected to the ventilator with assist control mode of ventilation. Patient is status post two trach revisions thus far for 2 episodes of major surgical wound bleeding. Tracheostomy site has a surgical packing, clean dry and intact CHEST: No chest wall deformity. Symmetrical expansion. LUNGS: Equal air entry with diffuse crackles CVS: Regular rate and rhythm, normal S1 and S2, no gallops, no murmurs, no rubs ABDOMEN: Soft, nontender. No hepatosplenomegaly, normal bowel sounds, no guarding or rigidity. EXTREMITIES: No clubbing, mild generalized edema, and 1+ lower extremity edema no cyanosis, 2+ pulses and upper and lower extremities. MUSCULOSKELETAL: Muscle strength and tone normal. SPINE: No scoliosis or deformity SKIN: No rashes CENTRAL NERVOUS SYSTEM: Trached to the vent, sedated and paralyzed. No focal deficits, tone is normal in all 4 extremities. - Labs CBC & Chem 7: 11/25/21 03:40 11/25/21 03:40 Labs: Abnormal Lab Results - Last 24 Hours (Table) 11/24/21 11/24/21 11/24/21 Range/Units 11:54 17:40 23:31 RBC (4.30-5.90) m/uL Hgb (13.0-17.5) gm/dL Hct (39.0-53.0) % MCV (80.0-100.0) fL ABG pH (7.35-7.45) ABG pCO2 (35-45) mmHg ABG pO2 (83-108) mmHg ABG HCO3 (21-25) mmol/L ABG Total CO2 (19-24) mmol/L ABG O2 Saturation (94-97) % Sodium (137-145) mmol/L Potassium (3.5-5.1) mmol/L Chloride (98-107) mmol/L Carbon Dioxide (22-30) mmol/L Creatinine (0.66-1.25) mg/dL Glucose (74-99) mg/dL POC Glucose (mg/dL) 194 H 229 H 211 H (75-99) mg/dL Calcium (8.4-10.2) mg/dL AST (17-59) U/L C-Reactive Protein (<1.0) mg/dL Total Protein (6.3-8.2) g/dL Albumin (3.5-5.0) g/dL 11/25/21 11/25/21 11/25/21 Range/Units 03:40 03:40 05:36 RBC 2.27 L (4.30-5.90) m/uL Hgb 7.3 L D (13.0-17.5) gm/dL Hct 23.3 L (39.0-53.0) % MCV 102.7 H (80.0-100.0) fL ABG pH (7.35-7.45) ABG pCO2 (35-45) mmHg ABG pO2 (83-108) mmHg ABG HCO3 (21-25) mmol/L ABG Total CO2 (19-24) mmol/L ABG O2 Saturation (94-97) % Sodium 134 L (137-145) mmol/L Potassium 3.1 L (3.5-5.1) mmol/L Chloride 97 L (98-107) mmol/L Carbon Dioxide 35 H (22-30) mmol/L Creatinine 0.52 L (0.66-1.25) mg/dL Glucose 153 H (74-99) mg/dL POC Glucose (mg/dL) 156 H (75-99) mg/dL Calcium 7.8 L (8.4-10.2) mg/dL AST 14 L (17-59) U/L C-Reactive Protein 4.5 H (<1.0) mg/dL Total Protein 4.8 L (6.3-8.2) g/dL Albumin 2.4 L (3.5-5.0) g/dL 11/25/21 Range/Units 05:50 RBC (4.30-5.90) m/uL Hgb (13.0-17.5) gm/dL Hct (39.0-53.0) % MCV (80.0-100.0) fL ABG pH 7.52 H (7.35-7.45) ABG pCO2 47 H (35-45) mmHg ABG pO2 208 H (83-108) mmHg ABG HCO3 38 H (21-25) mmol/L ABG Total CO2 39 H (19-24) mmol/L ABG O2 Saturation 100.0 H (94-97) % Sodium (137-145) mmol/L Potassium (3.5-5.1) mmol/L Chloride (98-107) mmol/L Carbon Dioxide (22-30) mmol/L Creatinine (0.66-1.25) mg/dL Glucose (74-99) mg/dL POC Glucose (mg/dL) (75-99) mg/dL Calcium (8.4-10.2) mg/dL AST (17-59) U/L C-Reactive Protein (<1.0) mg/dL Total Protein (6.3-8.2) g/dL Albumin (3.5-5.0) g/dL Assessment and Plan Plan: Assessment: #1. Recurrent bleeding from surgical site around tracheostomy, status post revision of tracheostomy site, reintubation, bronchoscopy 2, please refer to the full operative report on this patient from 11/15/2021 and 11/22/2021. Patient was previously on Eliquis which was discontinued, and was then placed on Lovenox 80 mg twice daily for acute pulmonary embolism diagnosed during this admission. Lovenox has been placed on hold, patient had SVC filter placement on 11/23/2021 #2. Acute hypoxic respiratory failure related to acute COVID-19 related pneumonia, patient presented to the emergency department on 10/23/2021 with 2 week history of symptoms, patient is outside the window for Remdesivir, he is a non-vaccinated adult. Patient was started on Baricitinib in view of worsening hypoxic respiratory failure, on 10/29/2021 transferred to the intensive care unit, and intubated on 10/30/2021. Today on 11/08/2021 patient remains intubated, sedated and paralyzed on assist control mode of ventilation with a rate of 32, tidal arm was 450, FiO2 of 55% and PEEP of 16. Baricitinib has been discontinued in view of positive blood cultures patient is currently covered with Zosyn. Blood cultures have shown coagulase-negative staph, 2 organisms, possibly contamination, however his sputum from 10/30/2021 showed group B strep. Patient has been weaned off the paralytics again yesterday on 11/24/2021, he is currently on FiO2 of 55%, and PEEP of 10, doing significantly better, we'll pro ceed with sedation holiday and possibly spontaneous breathing trials #3. Left lung collapse secondary to mucus plugging and blood clots requiring therapeutic bronchoscopy and lavage of the left lung extraction of the blood clots from the left knee mainstem bronchus left upper lobe bronchus lingula and left lower lobe bronchus and right upper lobe bronchus and right middle lobe bronchus with complete reexpansion of the left lung post procedure this was done on 11/18/2021 #4. Pneumomediastinum and subcutaneous emphysema, complication of COVID-19 pneumonia, resolved #5. Tiny right apical pneumothorax, resolved #6. Acute blood loss anemia related to bleeding from the surgical site around tracheostomy, and anticoagulation, currently off anticoagulation, it remains hemodynamically stable #7. Acute pulmonary embolism within the lower lobe, right artery right greater than left, started on Eliquis on 10/26/2021, however patient had 3 episodes of major bleeding including epistaxis, and 2 episodes of bleeding from the surgical wound at the fresh tracheostomy site, and patient is status post SVC filter placement on 11/23/2021 #8. Diabetes mellitus type 2 with diabetic neuropathy #9. Hypertension #10. Hyperlipidemia #11. BPH with previous history of TURP #12. Obstructive sleep apnea with previous history of UPPP #13. History of right eye melanoma with multiple surgeries #14. Previous history of CVA #15. Rheumatoid arthritis #16. History of gout #17. Previous history of MRSA infection in the wound on his back #18. Mild lactic acidosis, improved with IV hydration #19. Elevated inflammatory markers related to acute COVID-19 pneumonia Plan: Today's chest x-ray, blood gases and labs have been reviewed We dropped the PEEP down to 5, and FiO2 down to 40% We'll cut back Lasix to once daily, patient although looks generally fluid overloaded, he is developing volume contraction alkalosis Replace potassium per protocol Eliquis has been discontinued Continue current dose Decadron 6 mg daily Continue multivitamins Paralytics have been discontinued Discontinue fentanyl infusion Proceed with sedation holiday, let the patient wake up, ass mental status, and if remains calm we'll proceed with spontaneous breathing trials with pressure- support of 5 and CPAP of 5 We'll contact him to follow his clinical course" closely Follow-up labs including CBC, CMP, ABG and chest x-ray in the morning I performed a history & physical examination of the patient and discussed their management with my nurse practitioner, Linda Giordano. I reviewed the nurse practitioner's note and agree with the documented findings and plan of care. Lung sounds are positive for dim with diffuse wheezes throughout the lung malone. The findings and the impression was discussed with the patient. I attest to the documentation by the nurse practitioner. Time with Patient: Greater than 30
[2021-11-25 11:36] LABS: Glucose,Whole Blood 130 mg/dL (75-99)
[2021-11-25] MEDS: ANIDULAFUNGIN 100 MG in SODIUM CHLORIDE 0.9% 100 ML IVPB SCH (11:39)
[2021-11-25 12:05] LABS: Glucose,Whole Blood 125 mg/dL (75-99)
[2021-11-25] MEDS: hydrALAZINE HCL 20 MG/ML 1 ML VIAL IVP PRN (12:36)
--- NOTE | 2021-11-25 15:08 | P.PN ---
Progress Note - Text Progress Note Date: 11/25/21 Chief Complaint: Short of breath This is a pleasant 61-year-old patient, chronic stable medical conditions include diabetes, hypertension, hyperlipidemia, osteoarthritis, peripheral neuropathy, chronic gout. Patient presents with increasing shortness of breath. Cough. Clear sputum. Fever and chills. Tired rundown decrease appetite and diarrhea about 2 times a day. Patient tested positive for COVID-19 on October 09. His initial rapid COVID-19 was negative. In the send out came back positive. Patient did not take the vaccine against COVID-19. He is on 8 L of oxygen this morning. He is outside the window for Remdesivir. Admitted with COVID 19 pneumonitis, acute hypoxic respiratory failure. Started on Decadron. IV fluids. October 26 chest CTA showed bilateral pulmonary embolism. Breathing cord worse in October 30 patient is intubated. Requiring various drips. 2 feeding was started. November 10 patient got a tracheostomy and a PEG tube. Patient subsequently had a large bleed from the tracheostomy site. Desaturated. Tracheostomy had to be removed. Bedside bronchoscopy was done. Large blood loss was removed. Was put back on the ventilator/intubated. Required FFP. November 19 tracheostomy revision done. Lovenox resume. November 22 patient had bleeding a cane around the tracheostomy site. Bedside bronchoscopy was done large amount of blood cause was removed. Tracheostomy was resecured. November 23 [place] filter placed by Dr. Boothe. In the ICU patient been on different drips including propofol, fentanyl, Nimbex, cleviprex. November 24: ICU. Ventilator: FiO2 55 PEEP of 10. 2 feeding at 33 mL an hour. Patient off cleviprex. Oral amlodipine, losartan was added. Drips include fentanyl, propofol, Nimbex. Nimbex and being weaned off. November 25: ICU. Because of a rash Zosyn was discontinued. He is on IV Ancef and eraxis. Ventilator: 60/5. Does open eyes. Follows with eyes. On Precedex. Some fluctuation of blood pressure likely from anxiety. Significantly alkalotic with a pH of 7.5 to also bicarb is up to 35. Patient is likely volume contracted and should benefit from discontinuing IV Lasix. Review of systems: Patient intubated Active Medications Acetaminophen (Acetaminophen Tab 325 Mg Tab) 650 mg PO Q6HR PRN PRN Reason: Mild Pain or Fever > 100.5 Last Admin: 11/20/21 23:56 Dose: 650 mg Documented by: Albuterol Sulfate (Albuterol Hfa Inhaler) 2 puff INHALATION RT-QID PRN PRN Reason: Shortness Of Breath Last Admin: 11/22/21 15:39 Dose: 2 puff Documented by: Amlodipine Besylate (Amlodipine 10 Mg Tab) 10 mg PO DAILY [facility] Last Admin: 11/25/21 09:36 Dose: 10 mg Documented by: Artificial Tears (Artificial Tears-Hypromellose Drops 15 Ml Btl) 2 drops BOTH EYES Q4HR [facility] Last Admin: 11/25/21 11:36 Dose: 2 drops Documented by: Ascorbic Acid (Ascorbic Acid 500 Mg Tab) 1,000 mg PO DAILY [facility] Last Admin: 11/25/21 09:36 Dose: 1,000 mg Documented by: Bisacodyl (Bisacodyl 10 Mg Supp) 10 mg RECTAL BID [facility] Last Admin: 11/25/21 09:38 Dose: Not Given Documented by: Chlorhexidine Gluconate (Chlorhexidine Gluconate 15 Ml Cup) 15 ml MUCOUS MEM BID [facility] Last Admin: 11/25/21 09:36 Dose: 15 ml Documented by: Cholecalciferol (Cholecalciferol 25 Mcg (1000 Iu) Tablet) 25 mcg PO DAILY [facility] Last Admin: 11/25/21 09:36 Dose: 25 mcg Documented by: Dexamethasone Sodium Phosphate (Dexamethasone Sod Phosphate 10 Mg/Ml 1 Ml Vial) 6 mg IVP DAILY [facility] Last Admin: 11/25/21 09:40 Dose: 6 mg Documented by: Furosemide (Furosemide 10 Mg/Ml 4 Ml Vial) 40 mg IV DAILY [facility] Last Admin: 11/25/21 09:36 Dose: 40 mg Documented by: Hydralazine HCl (Hydralazine Hcl 20 Mg/Ml 1 Ml Vial) 20 mg IVP Q4HR PRN PRN Reason: Blood Pressure - High SBP >160 Last Admin: 11/25/21 12:36 Dose: 20 mg Documented by: Propofol 1,000 mg/ IV Solution 100 mls @ 0 mls/hr IV .Q0M [facility]; Protocol Last Titration: 11/25/21 11:39 Dose: 0 mcg/kg/min, 0 mls/hr Documented by: Clevidipine 25 mg/ IV Solution 50 mls @ 2 mls/hr IV .Q24H [facility]; Protocol Last Titration: 11/25/21 01:00 Dose: 0 mg/hr, 0 mls/hr Documented by: Anidulafungin 100 mg/ Sodium (Chloride) 100 mls @ 84 mls/hr IVPB DAILY@1200 [facility] Last Admin: 11/25/21 11:39 Dose: 84 mls/hr Documented by: Cefazolin Sodium 2 gm/ Sodium (Chloride) 50 mls @ 100 mls/hr IVPB Q8HR [facility] Last Admin: 11/25/21 09:37 Dose: 100 mls/hr Documented by: Dexmedetomidine HCl 400 mcg/ (IV Solution) 100 mls @ 6.42 mls/hr IV .[id number] [facility]; Protocol Last Titration: 11/25/21 14:42 Dose: 1 mcg/kg/hr, 32.1 mls/hr Documented by: Insulin Aspart (Insulin Aspart (Novolog) 100 Unit/Ml Vial) 0 unit SQ Q6HR [facility]; Protocol Last Admin: 11/25/21 11:35 Dose: Not Given Documented by: Insulin Detemir (Insulin Detemir (Levemir) 100 Unit/Ml Syr) 28 unit SQ [facility] Last Admin: 11/24/21 21:30 Dose: 28 unit Documented by: Lactulose (Lactulose 20 Gm/30 Ml Cup) 10 gm PO BID [facility] Last Admin: 11/25/21 09:39 Dose: Not Given Documented by: Losartan Potassium (Losartan 50 Mg Tab) 100 mg PO [facility] Metoprolol Tartrate (Metoprolol Tartrate 50 Mg Tab) 50 mg PO BID [facility] Last Admin: 11/25/21 09:37 Dose: 50 mg Documented by: Miscellaneous Information (Potassium Replacement Protocol 1 Each Misc) 1 each MISCELLANE DAILY PRN; Protocol PRN Reason: Per Protocol Pantoprazole Sodium (Pantoprazole 40 Mg Tablet) 40 mg PO AC-BRKFST [facility] Last Admin: 11/25/21 06:57 Dose: 40 mg Documented by: Pregabalin (Pregabalin 100 Mg Cap) 200 mg PO BID [facility] Last Admin: 11/25/21 09:36 Dose: 200 mg Documented by: Sertraline HCl (Sertraline 50 Mg Tab) 50 mg PO DAILY [facility] Last Admin: 11/25/21 09:36 Dose: 50 mg Documented by: Zinc Sulfate (Zinc Sulfate 220 Mg Cap) 220 mg PO DAILY [facility] Last Admin: 11/25/21 09:36 Dose: 220 mg Documented by: Social history: Patient is on Social Security. Does not smoke or drink alcohol. Patient's daughters family lives with him. Family history: Father at the age of 40 with heart attack Physical examination: VITAL SIGNS: 98.9, 72, 28, 160/91, 98% on ventilator GENERAL: Laying in bed, . PEG tube . Tracheostomy tube. LUNGS: Respiratory rate increased,. PSYCH: Unable to assess NEURO: Eyes open. Follows with eyes. Rest of the exam per nursing and pulmonary INVESTIGATIONS, reviewed in the clinical context: November 25: White count 7.6 hemoglobin 7.3 platelets 193 sodium 134 potassium 3.1 BUN 20 creatinine 0.5 to bicarb 35. PH 7.5 to November 24: White count 19.1 hemoglobin 9.4 potassium 4.5 creatinine 0.46 Blood culture positive for Staphylococcus epidermidis/coagulates negative. Sputum culture: MSSA, Bibi albicans November 17: White count 16.9 hemoglobin 11.1 potassium 3.3 creatinine 0.4 November 16: White count 17 hemoglobin 8.1 potassium 3.2 creatinine 0.5 to October 28: D-dimer 13.4 to October 26: D-dimer 8.48 CRP 24 Chest CTA [October 26: biLateral pulmonary embolism Doppler ultrasound lower extremity: Negative for DVT October 24: White count 9.7 hemoglobin 15.3 platelets 221 d-dimer 1.93 progression 4.2 creatinine 0.71 CRP 5.5 pro-calcitonin 0.08 White count 9.9 hemoglobin 16 platelets 234 d-dimer 0.98 sodium 141 potassium 3.4 creatinine 0.81 Lactic acid 2.9 LDH 1422 CRP 7.5 EKG tracing personally reviewed by me-normal sinus rhythm. Nonspecific ST segment changes. Chest x-ray film personally reviewed by me-bilateral infiltrates Assessment and plan: -Acute severe COVID 19 pneumonitis in a patient who did not take the COVID-19 vaccine: Slow to respond Dexamethasone, vitamin C, vitamin D, zinc. outside the window for Remdesivir. -Acute hypoxic respiratory failure from COVID-19: Slow to respond intubated October 30. FiO2 60/5 -Metabolic alkalosis, likely from volume contraction from IV Lasix Should benefit from stopping IV Lasix. -Active bleeding around tracheostomy into the trachea and lungs. Status post bronchoscopy. Evacuation of large amounts of blood clot. Tracheostomy removed. Patient reintubated. revision tracheostomy tube - November 19. Lovenox was resumed. November 22: At the tracheostomy site: re- bleeding with blood clots followed by bronchoscopy. Revision of tracheostomy done. -Bilateral pulmonary embolism secondary to COVID-19 Eliquis -discontinued because of bleeding. No [place] filter per vascular. Lovenox resumed after revision tracheostomy. Lovenox discontinued, because of bleeding: November 22. [place] filter placed by Dr. Boothe on November 23 -Essential hypertension: Uncontrolled Lopressor 50 mg twice a day, amlodipine 10 mg a day. Cozaar 100 mg daily at bedtime -Diabetes mellitus type 2, on oral hypoglycemic, uncontrolled with hyperglycemia Increase Levemir 28 units daily at bedtime. Follow Accu-Cheks -Chronic insomnia for medical conditions Elavil 50 mg daily at bedtime -Hyperlipidemia TriCor 48 mg daily -Hypoalbuminemia Acute phase reactant -Pneumonia with cultures positive for MSSA and Bibi IV Ancef and IVEraxis -Obstructive sleep apnea On CPAP at home -Pneumomediastinum and subcutis emphysema complications of COVID-19/pneumonia. - right upper apical pneumothorax less than 5%. -Diabetic peripheral neuropathy Lyrica 200 mg twice daily -Full code Patient has been weaned off fentanyl and propofol. Currently only on Precedex. Blood pressure is fluctuating likely from anxiety. May benefit from when necessary Ativan. Significantly alkalotic. Suggested to auditor supervisor team to discontinue Lasix.
--- NOTE | 2021-11-25 16:34 | P.PN ---
Subjective Progress Note Date: 11/25/21 CHIEF COMPLAINT: COVID-19 pneumonia HISTORY OF PRESENT ILLNESS: Patient is in the ICU on mechanical ventilation. He is status post revision of tracheostomy and partial thyroidectomy on 11/22 due to bleeding from tracheostomy site from Lovenox. He also required bronchoscopy with suctioning of blood clots from the airway. Patient had IVC filter placement done 11/23. Patient's Lovenox was discontinued. Patient has had no further bleeding from tracheostomy site. Patient is tolerating tube feeds. Patient seen and examined with Dr. daniel PHYSICAL EXAM: VITAL SIGNS: Reviewed. GENERAL: Well-developed in no acute distress. HEENT: Head is atraumatic, normocephalic. Tracheostomy site does have an open area ABDOMEN: Soft. Nondistended. Nontender. PEG tube site clean dry and intact NEUROLOGIC: Intubated and sedated ASSESSMENT: 1. Acute hypoxic respiratory failure secondary to COVID-19 pneumonia requiring mechanical ventilation 2. Severe protein calorie malnutrition 3. Bilateral pulmonary emboli 4. Bleeding at tracheostomy site status post second tracheostomy revision PLAN: -Continue ICU management and supportive care -Continue tube feeds -Continue supportive care for tracheostomy. -Continue to monitor Physician Hardware Test Engineer note has been reviewed by physician. Signing provider agrees with the documented findings, assessment, and plan of care. Objective - Vital Signs Vital signs: Vital Signs Temp 98.9 F 11/25/21 12:00 Pulse 82 11/25/21 14:30 Resp 32 H 11/25/21 14:30 BP 166/79 11/25/21 14:30 Pulse Ox 98 11/25/21 14:30 Intake & Output 11/24/21 11/25/21 11/25/21 18:59 06:59 18:59 Intake Total 3611.600 5966.239 741.896 Output Total 2125 1055 2695 Balance -297.901 364.239 -1953.104 Weight 128.4 kg 128.4 kg Intake: IV 353 326 151 0.9 Normal Saline @ 20 mL 220 240 130 /hr KVO Pressure bag 33 36 21 ceFAZolin 2 gm In Sodium 100 50 Chloride 0.9% 50 ml @ 100 mls/hr IVPB Q8HR [facility] Rx# :[id number] Intake, IV Titration 991.099 637.239 332.896 Amount Anidulafungin 100 mg In 100 Sodium Chloride 0.9% 100 ml @ 84 mls/hr IVPB DAILY @1200 [facility] Rx#:[id number] Cisatracurium 200 mg In 254.866 Sodium Chloride 0.9% 180 ml @ 1 MCG/KG/MIN 7.638 mls/hr IV .Q24H [facility] Rx#: [id number] Clevidipine Butyrate 25 60.000 54.599 mg In Empty Bag 1 bag @ 1 MG/HR 2 mls/hr IV .Q24H [facility] Rx#:[id number] Dexmedetomidine/0.9% NaCl 52.002 (Pmx) 400 mcg In Empty Bag 1 bag @ 0.2 MCG/KG/HR 6.42 mls/hr IV .[id number] [facility] Rx#:[id number] fentaNYL (PF) 2,500 mcg 276.233 189.961 52.389 In Sodium Chloride 0.9% 200 ml @ 0.5 MCG/KG/HR 4. 082 mls/hr IV .Q24H [facility] Rx#:[id number] propofoL 1,000 mg In 400.000 392.679 128.505 Empty Bag 1 bag @ Titrate IV .Q0M [facility] Rx#: [id number] Tube Feeding 363 396 198 Other 120 60 60 Output: Urine 2125 1055 2695 Other: Voiding Method Indwelling Catheter Indwelling Catheter Indwelling Catheter ABP, PAP, CO, CI - Last Documented Arterial Blood Pressure 176/69 - Labs CBC & Chem 7: 11/25/21 03:40 11/25/21 03:40 Labs: Abnormal Lab Results - Last 24 Hours (Table) 11/24/21 11/24/21 11/25/21 Range/Units 17:40 23:31 03:40 RBC 2.27 L (4.30-5.90) m/uL Hgb 7.3 L D (13.0-17.5) gm/dL Hct 23.3 L (39.0-53.0) % MCV 102.7 H (80.0-100.0) fL ABG pH (7.35-7.45) ABG pCO2 (35-45) mmHg ABG pO2 (83-108) mmHg ABG HCO3 (21-25) mmol/L ABG Total CO2 (19-24) mmol/L ABG O2 Saturation (94-97) % Sodium (137-145) mmol/L Potassium (3.5-5.1) mmol/L Chloride (98-107) mmol/L Carbon Dioxide (22-30) mmol/L Creatinine (0.66-1.25) mg/dL Glucose (74-99) mg/dL POC Glucose (mg/dL) 229 H 211 H (75-99) mg/dL Calcium (8.4-10.2) mg/dL AST (17-59) U/L C-Reactive Protein (<1.0) mg/dL Total Protein (6.3-8.2) g/dL Albumin (3.5-5.0) g/dL 11/25/21 11/25/21 11/25/21 Range/Units 03:40 05:36 05:50 RBC (4.30-5.90) m/uL Hgb (13.0-17.5) gm/dL Hct (39.0-53.0) % MCV (80.0-100.0) fL ABG pH 7.52 H (7.35-7.45) ABG pCO2 47 H (35-45) mmHg ABG pO2 208 H (83-108) mmHg ABG HCO3 38 H (21-25) mmol/L ABG Total CO2 39 H (19-24) mmol/L ABG O2 Saturation 100.0 H (94-97) % Sodium 134 L (137-145) mmol/L Potassium 3.1 L (3.5-5.1) mmol/L Chloride 97 L (98-107) mmol/L Carbon Dioxide 35 H (22-30) mmol/L Creatinine 0.52 L (0.66-1.25) mg/dL Glucose 153 H (74-99) mg/dL POC Glucose (mg/dL) 156 H (75-99) mg/dL Calcium 7.8 L (8.4-10.2) mg/dL AST 14 L (17-59) U/L C-Reactive Protein 4.5 H (<1.0) mg/dL Total Protein 4.8 L (6.3-8.2) g/dL Albumin 2.4 L (3.5-5.0) g/dL 11/25/21 11/25/21 Range/Units 11:35 12:03 RBC (4.30-5.90) m/uL Hgb (13.0-17.5) gm/dL Hct (39.0-53.0) % MCV (80.0-100.0) fL ABG pH (7.35-7.45) ABG pCO2 (35-45) mmHg ABG pO2 (83-108) mmHg ABG HCO3 (21-25) mmol/L ABG Total CO2 (19-24) mmol/L ABG O2 Saturation (94-97) % Sodium (137-145) mmol/L Potassium (3.5-5.1) mmol/L Chloride (98-107) mmol/L Carbon Dioxide (22-30) mmol/L Creatinine (0.66-1.25) mg/dL Glucose (74-99) mg/dL POC Glucose (mg/dL) 130 H 125 H (75-99) mg/dL Calcium (8.4-10.2) mg/dL AST (17-59) U/L C-Reactive Protein (<1.0) mg/dL Total Protein (6.3-8.2) g/dL Albumin (3.5-5.0) g/dL
[2021-11-25 17:37] LABS: Glucose,Whole Blood 178 mg/dL (75-99)
[2021-11-25] MEDS ORDERED: CISATRACURIUM 2 MG/ML 5 ML VIAL IV ONE (20:52)
[2021-11-25] MEDS: LOSARTAN 50 MG TAB PO SCH (21:00)
[2021-11-25] MEDS: INSULIN DETEMIR (LEVEMIR) 100 UNIT/ML SYR SQ SCH (21:01)
--- NOTE | 2021-11-25 21:27 | XR ---
EXAMINATION TYPE: XR chest 1V DATE OF EXAM: 11/25/2021 COMPARISON: 11/25/2021 HISTORY: 61 years Male. STUDY INDICATION GIVEN: Increased work of breathing . TECHNIQUE: AP semiupright chest radiograph IMPRESSION: Tip of the right upper extremity PICC is in the region of the SVC. Tracheostomy is not significantly changed in appearance. Surgical changes in the right neck are again seen. There is interval increase in patchy opacities in the left lung and interval decrease of patchy opaci ties in the right lung. The bilateral opacities are likely in part attenuated bilateral lung volume. The opacities may be reflective of atelectasis and/or multifocal pneumonia. Cardiomediastinal silhouette is mildly enlarged similar to prior study. No pneumothorax or large effusion appreciated. Osseous structures are not significantly changed in the interval.
[2021-11-25 23:35] LABS: Glucose,Whole Blood 193 mg/dL (75-99)
[2021-11-26] MEDS: CLEVIDIPINE BUTYRATE 25 MG in EMPTY BAG 1 BAG IV SCH ×5 (02:46→09:53)
[2021-11-26 03:57] LABS: Basophils # (A) 0.1 k/uL (0-0.2); Basophils % (A) 1 %; Eosinophils # (A) 0.1 k/uL (0-0.7); Eosinophils % (A) 1 %; HCT 30.5 % (39.0-53.0); Hypochromasia Moderate; Lymphocytes % (A) 17 %; MCH 32.8 pg (25.0-35.0); MCV 102.7 fL (80.0-100.0); Macrocytosis Slight; Mean Platelet Volume 8.1; Monocytes # (A) 0.9 k/uL (0-1.0); Monocytes % (A) 7 %; Neutrophils # (A) 8.3 k/uL (1.3-7.7); Neutrophils % (A) 72 %; Platelet Count 280 k/uL (150-450); RBC 2.97 m/uL (4.30-5.90); RDW 15.1 % (11.5-15.5); WBC 11.6 k/uL (3.8-10.6)
[2021-11-26 04:01] LABS: HGB 9.7 gm/dL (13.0-17.5)
[2021-11-26 04:14] LABS: ALT 28 U/L (4-49); AST 21 U/L (17-59); African American GFR (CKD) >90 (>60 ml/min/1.73 sqM); Alkaline Phosphatase 85 U/L (38-126); Anion Gap 3 mmol/L; Blood Urea Nitrogen 20 mg/dL (9-20); Calcium 8.3 mg/dL (8.4-10.2); Carbon Dioxide 37 mmol/L (22-30); Chloride 100 mmol/L (98-107); Glucose 158 mg/dL (74-99); LDH 511 U/L (313-618); Non-African American GFR(CKD) >90 (>60 ml/min/1.73 sqM); Potassium 3.1 mmol/L (3.5-5.1); Sodium 140 mmol/L (137-145); Total Bilirubin 1.1 mg/dL (0.2-1.3)
[2021-11-26] MEDS: ARTIFICIAL TEARS-HYPROMELLOSE DROPS 15 ML BTL BOTH EYES SCH ×6 (04:57→23:10)
[2021-11-26] MEDS: POTASSIUM BICARBONATE/CIT AC 20 MEQ TABLET.EFF NG-TUBE SCH ×2 (04:58→05:51)
[2021-11-26 05:47] LABS: Glucose,Whole Blood 138 mg/dL (75-99)
[2021-11-26] MEDS: INSULIN ASPART (NovoLOG) 100 UNIT/ML VIAL SQ SCH ×3 (05:50→17:39)
[2021-11-26 05:53] LABS: ABG Base Excess 16.8 mmol/L; ABG Oxygen Saturation 97.4 % (94-97); ABG PCO2 57 mmHg (35-45); ABG PH 7.46 (7.35-7.45); ABG PO2 88 mmHg (83-108); ABG TCO2 42 mmol/L (19-24); Allen Test Performed? Yes
[2021-11-26 05:56] LABS: ABG HCO3 41 mmol/L (21-25)
[2021-11-26] MEDS: PANTOPRAZOLE 40 MG TABLET PO SCH (06:39)
[2021-11-26] MEDS: FUROSEMIDE 10 MG/ML 4 ML VIAL IV SCH (08:16)
[2021-11-26] MEDS: ASCORBIC ACID 500 MG TAB PO SCH (08:16)
[2021-11-26] MEDS: PREGABALIN 100 MG CAP PO SCH ×2 (08:16→20:10)
[2021-11-26] MEDS: CHLORHEXIDINE GLUCONATE 15 ML CUP MUCOUS MEM SCH ×2 (08:16→20:11)
[2021-11-26] MEDS: CHOLECALCIFEROL 25 MCG (1000 IU) TABLET PO SCH (08:16)
[2021-11-26] MEDS: DEXAMETHASONE SOD PHOSPHATE 10 MG/ML 1 ML VIAL IVP SCH (08:17)
[2021-11-26] MEDS: METOPROLOL TARTRATE 50 MG TAB PO SCH ×2 (08:17→20:10)
[2021-11-26] MEDS: ZINC SULFATE 220 MG CAP PO SCH (08:17)
[2021-11-26] MEDS: LACTULOSE 20 GM/30 ML CUP PO SCH ×2 (08:17→20:10)
[2021-11-26] MEDS: bisacodyL 10 MG SUPP RECTAL SCH ×2 (08:17→20:11)
[2021-11-26] MEDS: SERTRALINE 50 MG TAB PO SCH (08:17)
[2021-11-26] MEDS: amLODIPine 10 MG TAB PO SCH (08:17)
[2021-11-26] MEDS: ENALAPRILAT 1.25 MG/ML 1 ML VIAL IVP PRN ×3 (09:54→19:19)
[2021-11-26] MEDS: QUEtiapine 50 MG TAB PO SCH ×2 (09:57→20:10)
--- NOTE | 2021-11-26 10:07 | XR ---
EXAMINATION TYPE: XR chest 1V portable DATE OF EXAM: 11/26/2021 COMPARISON: Chest x-ray 11/25/2021 HISTORY: Covid 19 TECHNIQUE: Single frontal view of the chest is obtained. FINDINGS: Tracheostomy is overlying the tracheal air column. Right-sided PICC line shows the distal tip over the superior vena cava. Surgical clips present in the right neck. No evident pneumothorax or pleural effusion. Bilateral airspace disease is present. Cardiac mediastinal silhouette is stable ac counting for differences in technique. IMPRESSION: Findings consistent with patient's history of pneumonia. Differential includes ARDS, cor relate.
--- NOTE | 2021-11-26 11:24 | P.PN ---
Subjective Progress Note Date: 11/26/21 Principal diagnosis: Acute COVID-19 pneumonia 61-year-old male patient with past medical history of diabetes mellitus type 2 with diabetic neuropathy, hypertension, hyperlipidemia, previous history of CVA, rheumatoid arthritis, obstructive sleep apnea S/P UPPP, history of right eye melanoma with previous surgeries, BPH with previous TURP, chronic lower extremity edema, cellulitis, gout, presented to the emergency department on 10/23/2021 at 240 3 in the morning with complaints of severe shortness of breath, cough, congestion. Patient states he has had symptoms since October 09, initially was tested via rapid COVID-19 PCR test which was negative however the send out PCR test came back positive. He states over the last 2 weeks his symptoms continue to worsen, he feels weak, short of breath, complains of cough and chest congestion. No chest pain. He has not been vaccinated against COVID- 19. He does endorse fever, malaise, nausea, abdominal pain. His chest x-ray showed moderate pulmonary testicular edema. His lab work has been reviewed showing white blood cell count of 9.9, hemoglobin 16, platelet count is 234, neutrophils 8.1, lymphocyte count is 1.49, INR is 1.1, sodium is 141, potassium is 3.4, chloride is 101, CO2 is 23, BUN is 23 creatinine 0.81, plasma lactic acid was 2.9 and is currently down to 1.7, LDH was 1422, proBNP was 185, LFTs were within normal limits. Patient is currently requiring 8 L of oxygen his pulse ox is 96%, he still has a congested cough, he has been afebrile, he is short of breath with any exertion. Denies any hemoptysis or chest discomfort. Has been started on Decadron 6 mg daily, he was given IV hydration with 1 L b olus, and currently receiving 0.9 normal saline at a rate of 1:30 ML per hour, his lactic acid has improved. Patient is outside the window for Remdesivir. On 11/08/2021 patient seen in follow-up in the intensive care unit, patient was transferred to the intensive care on 10/29/2022, and was intubated in next day on 10/30/2022. He currently remains intubated, sedated and paralyzed, he is currently on assist control mode of ventilation with a rate of 32, tidal arm is 450, FiO2 of 55% and PEEP of 16. This morning's blood gas has been reviewed showing pO2 of 59, pCO2 of 42, and pH of 7.5 one, this was done on the above- mentioned event stated settings. Patient is currently on 0.9 at 20 ML per hour, fentanyl infusion at 2 mics per kilo per minute, diprivan at 60 mics per kilo per minute, Nimbex at 2 mics per kilo per minute, he is tolerating his tube feedings, he is on vital high-protein at 23 with a goal of 23 and standard water flushes, for the past few days patient was given a paralytic holiday's however he does not tolerate them well, desaturates, and requires to be re-paralyzed, yesterday paralytic holiday was not attempted. His chest x-ray today shows bilateral multifocal increased opacities consistent with a COVID 19 infection and ARDS, no significant change from one day earlier. Hemodynamically patient has been stable, he remains in sinus mechanism, not requiring any vasopressor support, he remains on antibiotics in the form of Zosyn for positive blood cultures, his last set of blood cultures from 11/06/2021 showed 2 coagulase- negative staph organisms, blood culture from the same day showed no growth, his sputum culture showed few PMNs, moderate gram-positive cocci. Patient has been afebrile, hemodynamically he has been stable. Abdomen is soft, he is tolerating tube feedings. He is generally swollen. Overall says he transferred to the intensive care unit his weight is up by at least 7.4 kg. Patient has received intermittent doses of diuretics. He currently remains on Decadron 6 mg daily, she is on Eliquis 5 mg twice daily for evidence of PE that was diagnosed during this admission, yesterday he received a dose of IV Lasix 60 mg, however she still and +205 mL net fluid balance over the last 24 hours. He remains on multivitamins. His labs have been reviewed, his white blood cell count is 7.5, hemoglobin is 10.0, sodium is 136, potassium 3.5, chloride is 102, CO2 30, BUN is 20, creatinine 0.51, his last pro-calcitonin from 11/06/2021 was 0.31, which was actually increasing from the previous value of 0.12. And from the admission value of 0.08. On 11/23/2021 patient seen in follow-up in the intensive care unit, yesterday patient had a major rebleeding episode from his surgical wound at the tracheostomy site. Patient was bleeding into his airways, patient was becoming hypoxic developing high peak airway pressures and was becoming extremely difficult to ventilate. Patient had emergent bronchoscopy with BAL at the bedside, surgery was called to the bedside and revision of tracheostomy was performed at the bedside. Patient was orally intubated with assistance of bronchoscope, significant amount of blood in the oropharynx was encountered. Anesthesiology was also at the bedside assisting with the procedure. Patient had his bleeding finally controlled and was given protamine sulfate, tranexamic acid and the bleeders were also surgically cauterized. His anticoagulation has remained on hold. Patient is currently trached to the vent, with assist-control mode of ventilation with a rate of 30, tidal vital 350, FiO2 50% and PEEP of 10, this morning's blood gas shows pO2 of 96, pCO2 48, pH of 7.47, chest x-ray shows bilateral infiltrates and pleural effusion there is stable, postsurgical changes overlying the soft tissue of the neck and tracheostomy tube and central line are stable. Patient is currently sedated and paralyzed with the program 50 mics per kilo per minute, Nimbex is at 3.5 mics per kilo per hour, Cleviprex is at 18 mg per hour, point and obtain a rate of 20 ML per hour. Fentanyl is at 2 mics per kilo per minute, tube feedings are currently on hold. Today's labs have been reviewed, white blood cell count is 13.5, hemoglobin is 8.6, which is down from 9.1 on yesterday's labs, platelet count is 211, sodium is 135, potassium 3.9, chloride is 98, CO2 is 31, BUN is 15, creatinine 0.43. Pro-calcitonin level is negative at 0.21. Hemodynamic patient is stable, he is requiring Cleviprex infusion for blood pressure control. Patient currently continues on dexamethasone 6 mg twice daily, he is on daily dose of Lasix 40 mg daily, he is on antibiotics in the form of Kefzol and Eraxis per ID service, his sputum cultures were positive for staph aureus, and Bibi albicans, his blood culture from 11/03/2021 showed staph epidermidis and coagulase-negative staph likely skin contaminant. Follow blood cultures have shown no growth. Low-grade fevers overnight with a temp of 99.7F. Lovenox has been discontinued, and vascular surgery is consulted for placement of IVC filter. Patient is scheduled for the procedure today On 11/24/2021 patient seen in follow-up in the intensive care unit, he is status post IVC filter placement yesterday on 11/23/2021, tolerated procedure well, remains off all anti-coagulation. Hemodynamically stable, no recurrent rebleeding in the last 24 hours. She remains on assist control mode of ventilation with a rate of 30, tidal vital 350, FiO2 55% and PEEP of 10, this morning's blood gas shows pO2 of 75, pCO2 57, and pH of 7.39. This was done and the above-mentioned vent settings, today's chest x-ray has been reviewed showing stable diffuse bilateral infiltrates. Patient is currently sedated on Diprivan at 50 mics per kilo per minute, fentanyl infusion at 2 mics per kilo per minute, Cleviprex is a 21 mg per hour, Nimbex at 3.5 mics per kilo per minute, 0.9 normal saline at a rate of 20 ML per hour, he is tolerating tube feedings is receiving vital HP at 33 with a 33 and 30 mL water flushes every 4 hours. Patient had a PICC line placed yesterday as well, however he is additional IV access and he will need a midline placed today. Tracheostomy site is clean dry and intact, surgical packing is still in place. Today's labs have been reviewed, white blood cell count is 19.1, hemoglobin is 9.4, platelet count is 249, sodium is 134, potassium is 4.5, chloride is 95, CO2 31, BUN is 18, creatinine 0.46. Follow-up LDH is 656, improving, and CRP is 6.7, improved since admission. His had no acute events overnight, he is been hypotensive requiring high doses of Cleviprex, patient will be started on some oral antihypertensives today, and we will also drop his dexamethasone dose down to once daily. She also continues on per ID service recommendations for MSSA in his sputum cultures, his previous blood cultures also show coagulase-negative staph, and staph epidermidis. His previous sputum culture on admission was positive for strep agalactiae. Clinically he has remained stable, we'll attempt paralytic holiday today. On 11/25/2021 patient seen in follow-up in intensive care unit, he is sedated, and trached the ventilator on assist control mode of ventilation with a rate of 30, Tylenol 350, FiO2 of 55% and PEEP of 10, this point blood gas shows pO2 of 208, pCO2 of 47, and pH is 7.52, this was done on the above-mentioned ventilator settings, paralytics have been discontinued yesterday, patient was weaned off the Cleviprex drip, he was started on some oral antihypertensives including losartan, and Norvasc. He is in sinus mechanism, nursing reports the patient did have some fluctuations in his blood pressure with the low and high blood pressures, but for the most part he is staying off the Cleviprex infusion and not requiring vasopressor support. Today's chest x-ray has been reviewed going no pneumothorax, no pleural effusion, diffuse interstitial airspace disease. Patient is currently on 0.9 normal saline at a rate of 10 ML per hour, fentanyl infusion at 1.5 mics per kilo per minute, and to prevent is a 40 mics per kilo per minute, patient is tolerating his tube feedings are infusing at 33 ML per hour, vital signs have been stable overnight, no fever. Blood pressure has been stable, acute events overnight, his tracheal wound site is clean dry and intact, surgical packing is intact, his labs have been reviewed, his white count is improved and is down to 7.6, hemoglobin is 7.3, sodium is 134, potassium is 3.1, this is being replaced per protocol, chloride is 97, CO2 35, B1 is 20 creatinine 0.52. His LDH is significantly improved and is down to 350 and is now within normal range, CRP is down to 4.5. Patient is still quite sedated this morning, we'll proceed with daily traction of sedation and possibly spontaneous breathing trials today. On 11/26/2021 patient seen in follow-up in intensive care unit, he is trached to the ventilator, he is sedated, he is on volume assist control mode of ventilation with a rate of 24, tidal volume is 350, FiO2 of 45% and PEEP of 10, blood gas showing pO2 of 88, pCO2 57, and pH of 7.46. His chest x-ray today showing findings consistent with patient's history of pneumonia. Patient is currently on 0.7. 0.9 at 20 ML per hour, Diprivan and is at 25 mics per kilo per minute, Cleviprex is a 21 mg per hour, and patient is tolerating tube feedings of vital HP at a rate of 57. Depressive labs have been reviewed, white blood cell count is 11.6, hemoglobin is 9.7, platelet count is 280, sodium is 140, potassium is 3.1, chloride is 100, CO2 is 37, B1 is 20, creatinine 0.38. Sputum cultures positive for MSSA, and Bibi. Patient is on cefazolin, and ID service is following, she remains on Decadron 6 mg daily. Remains on Lasix at 40 mg once daily, he is in -4.19 L net fluid balance over the last 24 hours. Patient was given a sedation holiday yesterday, however became agitated, tachypneic tachycardic and had to be re-sedated overnight. He is currently on a low-dose Diprivan at 25 mics per kilo per minute. Objective - Vital Signs Vital signs: Vital Signs Temp 99.1 F 11/26/21 08:00 Pulse 88 11/26/21 10:00 Resp 32 H 11/26/21 10:00 BP 143/74 11/26/21 10:00 Pulse Ox 98 11/26/21 10:00 Intake & Output 11/25/21 11/26/21 11/26/21 18:59 06:59 18:59 Intake Total 6197.912 2121.336 509.047 Output Total 3145 3325 900 Balance -1943.104 -2202.664 -390.953 Weight 128.4 kg 128.2 kg Intake: IV 266 276 69 0.9 Normal Saline @ 20 mL 230 240 60 /hr KVO Pressure bag 36 36 9 Intake, IV Titration 432.896 390.336 209.047 Amount Anidulafungin 100 mg In 100 Sodium Chloride 0.9% 100 ml @ 84 mls/hr IVPB DAILY @1200 [facility] Rx#:[id number] Clevidipine Butyrate 25 125.601 112 mg In Empty Bag 1 bag @ 1 MG/HR 2 mls/hr IV .Q24H [facility] Rx#:[id number] Dexmedetomidine/0.9% NaCl 152.002 20.597 (Pmx) 400 mcg In Empty Bag 1 bag @ 0.2 MCG/KG/HR 6.42 mls/hr IV .[id number] [facility] Rx#:[id number] fentaNYL (PF) 2,500 mcg 52.389 In Sodium Chloride 0.9% 200 ml @ 0.5 MCG/KG/HR 4. 082 mls/hr IV .Q24H [facility] Rx#:[id number] propofoL 1,000 mg In 128.505 244.138 97.047 Empty Bag 1 bag @ Titrate IV .Q0M [facility] Rx#: [id number] Tube Feeding 413 396 171 Other 90 60 60 Output: Urine 3145 3325 900 Other: Voiding Method Indwelling Catheter Indwelling Catheter Indwelling Catheter ABP, PAP, CO, CI - Last Documented Arterial Blood Pressure 174/60 - Exam GENERAL EXAM: Trached to the vent, sedated 61-year-old white male, on assist- control mode of ventilation with a rate of 24, tidal volume is 350, FiO2 of 45% and PEEP of 10 HEAD: Normocephalic/atraumatic. EYES: Normal reaction of pupils, equal size. Conjunctiva pink, sclera white. NOSE: Clear with pink turbinates. THROAT: No erythema or exudates. NECK: No masses, no JVD, no thyroid enlargement, no adenopathy. Midline tracheostomy, patient is connected to the ventilator with assist control mode of ventilation. Patient is status post two trach revisions thus far for 2 episodes of major surgical wound bleeding. Tracheostomy site has a surgical packing, clean dry and intact CHEST: No chest wall deformity. Symmetrical expansion. LUNGS: Equal air entry with diffuse crackles CVS: Regular rate and rhythm, normal S1 and S2, no gallops, no murmurs, no rubs ABDOMEN: Soft, nontender. No hepatosplenomegaly, normal bowel sounds, no guarding or rigidity. EXTREMITIES: No clubbing, mild generalized edema, and 1+ lower extremity edema no cyanosis, 2+ pulses and upper and lower extremities. MUSCULOSKELETAL: Muscle strength and tone normal. SPINE: No scoliosis or deformity SKIN: No rashes CENTRAL NERVOUS SYSTEM: Trached to the vent, sedated and paralyzed. No focal deficits, tone is normal in all 4 extremities. - Labs CBC & Chem 7: 11/26/21 03:42 11/26/21 03:42 Labs: Abnormal Lab Results - Last 24 Hours (Table) 11/25/21 11/25/21 11/25/21 Range/Units 11:35 12:03 17:36 WBC (3.8-10.6) k/uL RBC (4.30-5.90) m/uL Hgb (13.0-17.5) gm/dL Hct (39.0-53.0) % MCV (80.0-100.0) fL Neutrophils # (1.3-7.7) k/uL ABG pH (7.35-7.45) ABG pCO2 (35-45) mmHg ABG HCO3 (21-25) mmol/L ABG Total CO2 (19-24) mmol/L ABG O2 Saturation (94-97) % Potassium (3.5-5.1) mmol/L Carbon Dioxide (22-30) mmol/L Creatinine (0.66-1.25) mg/dL Glucose (74-99) mg/dL POC Glucose (mg/dL) 130 H 125 H 178 H (75-99) mg/dL Calcium (8.4-10.2) mg/dL C-Reactive Protein (<1.0) mg/dL Total Protein (6.3-8.2) g/dL Albumin (3.5-5.0) g/dL 11/25/21 11/26/21 11/26/21 Range/Units 23:33 03:42 03:42 WBC 11.6 H (3.8-10.6) k/uL RBC 2.97 L (4.30-5.90) m/uL Hgb 9.7 L D (13.0-17.5) gm/dL Hct 30.5 L (39.0-53.0) % MCV 102.7 H (80.0-100.0) fL Neutrophils # 8.3 H (1.3-7.7) k/uL ABG pH (7.35-7.45) ABG pCO2 (35-45) mmHg ABG HCO3 (21-25) mmol/L ABG Total CO2 (19-24) mmol/L ABG O2 Saturation (94-97) % Potassium 3.1 L (3.5-5.1) mmol/L Carbon Dioxide 37 H (22-30) mmol/L Creatinine 0.38 L (0.66-1.25) mg/dL Glucose 158 H (74-99) mg/dL POC Glucose (mg/dL) 193 H (75-99) mg/dL Calcium 8.3 L (8.4-10.2) mg/dL C-Reactive Protein 4.0 H (<1.0) mg/dL Total Protein 6.0 L (6.3-8.2) g/dL Albumin 3.0 L (3.5-5.0) g/dL 11/26/21 11/26/21 Range/Units 05:44 05:50 WBC (3.8-10.6) k/uL RBC (4.30-5.90) m/uL Hgb (13.0-17.5) gm/dL Hct (39.0-53.0) % MCV (80.0-100.0) fL Neutrophils # (1.3-7.7) k/uL ABG pH 7.46 H (7.35-7.45) ABG pCO2 57 H (35-45) mmHg ABG HCO3 41 H* (21-25) mmol/L ABG Total CO2 42 H (19-24) mmol/L ABG O2 Saturation 97.4 H (94-97) % Potassium (3.5-5.1) mmol/L Carbon Dioxide (22-30) mmol/L Creatinine (0.66-1.25) mg/dL Glucose (74-99) mg/dL POC Glucose (mg/dL) 138 H (75-99) mg/dL Calcium (8.4-10.2) mg/dL C-Reactive Protein (<1.0) mg/dL Total Protein (6.3-8.2) g/dL Albumin (3.5-5.0) g/dL Assessment and Plan Plan: Assessment: #1. Recurrent bleeding from surgical site around tracheostomy, status post r evision of tracheostomy site, reintubation, bronchoscopy 2, please refer to the full operative report on this patient from 11/15/2021 and 11/22/2021. Patient was previously on Eliquis which was discontinued, and was then placed on Lovenox 80 mg twice daily for acute pulmonary embolism diagnosed during this admission. Lovenox has been placed on hold, patient had SVC filter placement on 11/23/2021 #2. Acute hypoxic respiratory failure related to acute COVID-19 related pneumonia, patient presented to the emergency department on 10/23/2021 with 2 week history of symptoms, patient is outside the window for Remdesivir, he is a non-vaccinated adult. Patient was started on Baricitinib in view of worsening hypoxic respiratory failure, on 10/29/2021 transferred to the intensive care unit, and intubated on 10/30/2021. Today on 11/08/2021 patient remains intubated, sedated and paralyzed on assist control mode of ventilation with a rate of 32, tidal arm was 450, FiO2 of 55% and PEEP of 16. Baricitinib has been discontinued in view of positive blood cultures patient is currently covered with Zosyn. Blood cultures have shown coagulase-negative staph, 2 organisms, possibly contamination, however his sputum from 10/30/2021 showed group B strep. Patient has been weaned off the paralytics again yesterday on 11/24/2021, he is currently on FiO2 of 45%, and PEEP of 10, doing significantly better, we'll proceed with sedation holiday and possibly spontaneous breathing trials on 11/26/2021 #3. Left lung collapse secondary to mucus plugging and blood clots requiring therapeutic bronchoscopy and lavage of the left lung extraction of the blood clots from the left knee mainstem bronchus left upper lobe bronchus lingula and left lower lobe bronchus and right upper lobe bronchus and right middle lobe bronchus with complete reexpansion of the left lung post procedure this was done on 11/18/2021 #4. Pneumomediastinum and subcutaneous emphysema, complication of COVID-19 pneumonia, resolved #5. Tiny right apical pneumothorax, resolved #6. Acute blood loss anemia related to bleeding from the surgical site around tracheostomy, and anticoagulation, currently off anticoagulation, it remains hemodynamically stable #7. Acute pulmonary embolism within the lower lobe, right artery right greater than left, started on Eliquis on 10/26/2021, however patient had 3 episodes of major bleeding including epistaxis, and 2 episodes of bleeding from the surgical wound at the fresh tracheostomy site, and patient is status post SVC filter placement on 11/23/2021 #8. Diabetes mellitus type 2 with diabetic neuropathy #9. Hypertension #10. Hyperlipidemia #11. BPH with previous history of TURP #12. Obstructive sleep apnea with previous history of UPPP #13. History of right eye melanoma with multiple surgeries #14. Previous history of CVA #15. Rheumatoid arthritis #16. History of gout #17. Previous history of MRSA infection in the wound on his back #18. Mild lactic acidosis, improved with IV hydration #19. Elevated inflammatory markers related to acute COVID-19 pneumonia Plan: Today's chest x-ray, blood gases and labs have been reviewed Continue with current ventilator settings, decrease PEEP down to 8 Proceed with sedation holiday Discontinue Diprivan, may utilize Precedex he becomes agitated If he wakes up and is not extremely agitated we will proceed with pressure- support trials Hold Lasix today Continue Decadron 6 mg daily Replace potassium per protocol Continue nutritional support Continue current med treatment I performed a history & physical examination of the patient and discussed their management with my nurse practitioner, Linda Giordano. I reviewed the nurse practitioner's note and agree with the documented findings and plan of care. Lung sounds are positive for dim with diffuse wheezes throughout the lung malone. The findings and the impression was discussed with the patient. I attest to the documentation by the nurse practitioner. Time with Patient: Greater than 30
[2021-11-26 11:56] LABS: Glucose,Whole Blood 226 mg/dL (75-99)
[2021-11-26] MEDS: ANIDULAFUNGIN 100 MG in SODIUM CHLORIDE 0.9% 100 ML IVPB SCH (12:10)
--- NOTE | 2021-11-26 14:06 | P.PN ---
Subjective Progress Note Date: 11/26/21 CHIEF COMPLAINT: COVID-19 pneumonia HISTORY OF PRESENT ILLNESS: Patient is in the ICU on mechanical ventilation. He is status post revision of tracheostomy and partial thyroidectomy on 11/22 due to bleeding from tracheostomy site from Lovenox. He also required bronchoscopy with suctioning of blood clots from the airway. Patient had IVC filter placement done 11/23. Patient's Lovenox was discontinued. Patient has had no further bleeding from tracheostomy site. Patient is tolerating tube feeds. He is currently off of the propofol. He has been having elevated blood pressures they've added Vasotec. Afebrile. WBC 12.6-year-old woman 9.7 platelets 280 potassium 3.6 Patient seen and examined with Dr. daniel PHYSICAL EXAM: VITAL SIGNS: Reviewed. GENERAL: Well-developed in no acute distress. HEENT: Head is atraumatic, normocephalic. Tracheostomy site does have an open area ABDOMEN: Soft. Nondistended. Nontender. PEG tube site clean dry and intact NEUROLOGIC: Intubated and sedated ASSESSMENT: 1. Acute hypoxic respiratory failure secondary to COVID-19 pneumonia requiring mechanical ventilation 2. Severe protein calorie malnutrition 3. Bilateral pulmonary emboli 4. Bleeding at tracheostomy site status post second tracheostomy revision PLAN: -Continue ICU management and supportive care -Continue tube feeds -Continue supportive care for tracheostomy. -Continue to monitor Physician Rest Room Attendant note has been reviewed by physician. Signing provider agrees with the documented findings, assessment, and plan of care. Objective - Vital Signs Vital signs: Vital Signs Temp 99.1 F 11/26/21 12:00 Pulse 75 11/26/21 13:00 Resp 25 H 11/26/21 13:00 BP 162/85 11/26/21 13:00 Pulse Ox 100 11/26/21 13:00 Intake & Output 11/25/21 11/26/21 11/26/21 18:59 06:59 18:59 Intake Total 4872.807 8908.336 779.047 Output Total 3145 3325 3820 Balance -1943.104 -2202.664 -2670.953 Weight 128.4 kg 128.2 kg Intake: IV 266 276 138 0.9 Normal Saline @ 20 mL 230 240 120 /hr KVO Pressure bag 36 36 18 Intake, IV Titration 432.896 390.336 209.047 Amount Anidulafungin 100 mg In 100 Sodium Chloride 0.9% 100 ml @ 84 mls/hr IVPB DAILY @1200 [facility] Rx#:[id number] Clevidipine Butyrate 25 125.601 112 mg In Empty Bag 1 bag @ 1 MG/HR 2 mls/hr IV .Q24H [facility] Rx#:[id number] Dexmedetomidine/0.9% NaCl 152.002 20.597 (Pmx) 400 mcg In Empty Bag 1 bag @ 0.2 MCG/KG/HR 6.42 mls/hr IV .[id number] [facility] Rx#:[id number] fentaNYL (PF) 2,500 mcg 52.389 In Sodium Chloride 0.9% 200 ml @ 0.5 MCG/KG/HR 4. 082 mls/hr IV .Q24H [facility] Rx#:[id number] propofoL 1,000 mg In 128.505 244.138 97.047 Empty Bag 1 bag @ Titrate IV .Q0M [facility] Rx#: [id number] Tube Feeding 413 396 342 Other 90 60 90 Output: Urine 3145 3325 3450 Other: Voiding Method Indwelling Catheter Indwelling Catheter Indwelling Catheter ABP, PAP, CO, CI - Last Documented Arterial Blood Pressure 193/69 - Labs CBC & Chem 7: 11/26/21 03:42 11/26/21 11:56 Labs: Abnormal Lab Results - Last 24 Hours (Table) 11/25/21 11/25/21 11/26/21 Range/Units 17:36 23:33 03:42 WBC 11.6 H (3.8-10.6) k/uL RBC 2.97 L (4.30-5.90) m/uL Hgb 9.7 L D (13.0-17.5) gm/dL Hct 30.5 L (39.0-53.0) % MCV 102.7 H (80.0-100.0) fL Neutrophils # 8.3 H (1.3-7.7) k/uL ABG pH (7.35-7.45) ABG pCO2 (35-45) mmHg ABG HCO3 (21-25) mmol/L ABG Total CO2 (19-24) mmol/L ABG O2 Saturation (94-97) % Potassium (3.5-5.1) mmol/L Carbon Dioxide (22-30) mmol/L Creatinine (0.66-1.25) mg/dL Glucose (74-99) mg/dL POC Glucose (mg/dL) 178 H 193 H (75-99) mg/dL Calcium (8.4-10.2) mg/dL C-Reactive Protein (<1.0) mg/dL Total Protein (6.3-8.2) g/dL Albumin (3.5-5.0) g/dL 11/26/21 11/26/21 11/26/21 Range/Units 03:42 05:44 05:50 WBC (3.8-10.6) k/uL RBC (4.30-5.90) m/uL Hgb (13.0-17.5) gm/dL Hct (39.0-53.0) % MCV (80.0-100.0) fL Neutrophils # (1.3-7.7) k/uL ABG pH 7.46 H (7.35-7.45) ABG pCO2 57 H (35-45) mmHg ABG HCO3 41 H* (21-25) mmol/L ABG Total CO2 42 H (19-24) mmol/L ABG O2 Saturation 97.4 H (94-97) % Potassium 3.1 L (3.5-5.1) mmol/L Carbon Dioxide 37 H (22-30) mmol/L Creatinine 0.38 L (0.66-1.25) mg/dL Glucose 158 H (74-99) mg/dL POC Glucose (mg/dL) 138 H (75-99) mg/dL Calcium 8.3 L (8.4-10.2) mg/dL C-Reactive Protein 4.0 H (<1.0) mg/dL Total Protein 6.0 L (6.3-8.2) g/dL Albumin 3.0 L (3.5-5.0) g/dL 11/26/21 Range/Units 11:53 WBC (3.8-10.6) k/uL RBC (4.30-5.90) m/uL Hgb (13.0-17.5) gm/dL Hct (39.0-53.0) % MCV (80.0-100.0) fL Neutrophils # (1.3-7.7) k/uL ABG pH (7.35-7.45) ABG pCO2 (35-45) mmHg ABG HCO3 (21-25) mmol/L ABG Total CO2 (19-24) mmol/L ABG O2 Saturation (94-97) % Potassium (3.5-5.1) mmol/L Carbon Dioxide (22-30) mmol/L Creatinine (0.66-1.25) mg/dL Glucose (74-99) mg/dL POC Glucose (mg/dL) 226 H (75-99) mg/dL Calcium (8.4-10.2) mg/dL C-Reactive Protein (<1.0) mg/dL Total Protein (6.3-8.2) g/dL Albumin (3.5-5.0) g/dL
[2021-11-26] MEDS: HYDROmorphone 1 MG/ML 1 ML SYRINGE IVP PRN (17:06)
[2021-11-26 17:26] LABS: Glucose,Whole Blood 216 mg/dL (75-99)
--- NOTE | 2021-11-26 18:25 | P.PN ---
Progress Note - Text Progress Note Date: 11/26/21 Chief Complaint: Short of breath This is a pleasant 61-year-old patient, chronic stable medical conditions include diabetes, hypertension, hyperlipidemia, osteoarthritis, peripheral neuropathy, chronic gout. Patient presents with increasing shortness of breath. Cough. Clear sputum. Fever and chills. Tired rundown decrease appetite and diarrhea about 2 times a day. Patient tested positive for COVID-19 on October 09. His initial rapid COVID-19 was negative. In the send out came back positive. Patient did not take the vaccine against COVID-19. He is on 8 L of oxygen this morning. He is outside the window for Remdesivir. Admitted with COVID 19 pneumonitis, acute hypoxic respiratory failure. Started on Decadron. IV fluids. October 26 chest CTA showed bilateral pulmonary embolism. Breathing cord worse in October 30 patient is intubated. Requiring various drips. 2 feeding was started. November 10 patient got a tracheostomy and a PEG tube. Patient subsequently had a large bleed from the tracheostomy site. Desaturated. Tracheostomy had to be removed. Bedside bronchoscopy was done. Large blood loss was removed. Was put back on the ventilator/intubated. Required FFP. November 19 tracheostomy revision done. Lovenox resume. November 22 patient had bleeding a cane around the tracheostomy site. Bedside bronchoscopy was done large amount of blood cause was removed. Tracheostomy was resecured. November 23 [place] filter placed by Dr. Boothe. In the ICU patient been on different drips including propofol, fentanyl, Nimbex, cleviprex. November 24: ICU. Ventilator: FiO2 55 PEEP of 10. 2 feeding at 33 mL an hour. Patient off cleviprex. Oral amlodipine, losartan was added. Drips include fentanyl, propofol, Nimbex. Nimbex and being weaned off. November 25: ICU. Because of a rash Zosyn was discontinued. He is on IV Ancef and eraxis. Ventilator: 60/5. Does open eyes. Follows with eyes. On Precedex. Some fluctuation of blood pressure likely from anxiety. Significantly alkalotic with a pH of 7.5 to also bicarb is up to 35. Patient is likely volume contracted and should benefit from discontinuing IV Lasix. November 26: ICU. Ventilator. FiO2 45 PEEP of 8. 2 feeding continues. Patient is off all drips. Blood pressure does fluctuate. Patient is awake. Lasix has been discontinued. Anxiety component present. Seroquel added by pulmonary.. Review of systems: Patient intubated Active Medications Acetaminophen (Acetaminophen Tab 325 Mg Tab) 650 mg PO Q6HR PRN PRN Reason: Mild Pain or Fever > 100.5 Last Admin: 11/20/21 23:56 Dose: 650 mg Documented by: Albuterol Sulfate (Albuterol Hfa Inhaler) 2 puff INHALATION RT-QID PRN PRN Reason: Shortness Of Breath Last Admin: 11/22/21 15:39 Dose: 2 puff Documented by: Amlodipine Besylate (Amlodipine 10 Mg Tab) 10 mg PO DAILY [facility] Last Admin: 11/26/21 08:17 Dose: 10 mg Documented by: Artificial Tears (Artificial Tears-Hypromellose Drops 15 Ml Btl) 2 drops BOTH EYES Q4HR [facility] Last Admin: 11/26/21 17:00 Dose: Not Given Documented by: Ascorbic Acid (Ascorbic Acid 500 Mg Tab) 1,000 mg PO DAILY [facility] Last Admin: 11/26/21 08:16 Dose: 1,000 mg Documented by: Bisacodyl (Bisacodyl 10 Mg Supp) 10 mg RECTAL BID [facility] Last Admin: 11/26/21 08:17 Dose: Not Given Documented by: Chlorhexidine Gluconate (Chlorhexidine Gluconate 15 Ml Cup) 15 ml MUCOUS MEM BID [facility] Last Admin: 11/26/21 08:16 Dose: 15 ml Documented by: Cholecalciferol (Cholecalciferol 25 Mcg (1000 Iu) Tablet) 25 mcg PO DAILY [facility] Last Admin: 11/26/21 08:16 Dose: 25 mcg Documented by: Dexamethasone Sodium Phosphate (Dexamethasone Sod Phosphate 10 Mg/Ml 1 Ml Vial) 6 mg IVP DAILY [facility] Last Admin: 11/26/21 08:17 Dose: 6 mg Documented by: Enalaprilat (Enalaprilat 1.25 Mg/Ml 1 Ml Vial) 1.25 mg IVP Q4HR PRN PRN Reason: Blood Pressure - High Last Admin: 11/26/21 14:38 Dose: 1.25 mg Documented by: Hydralazine HCl (Hydralazine Hcl 20 Mg/Ml 1 Ml Vial) 20 mg IVP Q4HR PRN PRN Reason: Blood Pressure - High SBP >160 Last Admin: 11/25/21 12:36 Dose: 20 mg Documented by: Hydromorphone HCl (Hydromorphone 1 Mg/Ml 1 Ml Syringe) 1 mg IVP Q2HR PRN PRN Reason: Pain Last Admin: 11/26/21 17:06 Dose: 1 mg Documented by: Clevidipine 25 mg/ IV Solution 50 mls @ 2 mls/hr IV .Q24H [facility]; Protocol Last Titration: 11/26/21 10:17 Dose: 6 mg/hr, 12 mls/hr Documented by: Anidulafungin 100 mg/ Sodium (Chloride) 100 mls @ 84 mls/hr IVPB DAILY@1200 [facility] Last Admin: 11/26/21 12:10 Dose: 84 mls/hr Documented by: Cefazolin Sodium 2 gm/ Sodium (Chloride) 50 mls @ 100 mls/hr IVPB Q8HR [facility] Last Admin: 11/26/21 16:56 Dose: 100 mls/hr Documented by: Dexmedetomidine HCl 400 mcg/ (IV Solution) 100 mls @ 6.42 mls/hr IV .[id number] [facility]; Protocol Last Titration: 11/25/21 21:00 Dose: 0 mcg/kg/hr, 0 mls/hr Documented by: Insulin Aspart (Insulin Aspart (Novolog) 100 Unit/Ml Vial) 0 unit SQ Q6HR [facility]; Protocol Last Admin: 11/26/21 17:39 Dose: 7 unit Documented by: Insulin Detemir (Insulin Detemir (Levemir) 100 Unit/Ml Syr) 28 unit SQ [facility] Last Admin: 11/25/21 21:01 Dose: 28 unit Documented by: Lactulose (Lactulose 20 Gm/30 Ml Cup) 10 gm PO BID [facility] Last Admin: 11/26/21 08:17 Dose: Not Given Documented by: Losartan Potassium (Losartan 50 Mg Tab) 100 mg PO HS [facility] Last Admin: 11/25/21 21:00 Dose: 100 mg Documented by: Metoprolol Tartrate (Metoprolol Tartrate 50 Mg Tab) 50 mg PO BID [facility] Last Admin: 11/26/21 08:17 Dose: 50 mg Documented by: Miscellaneous Information (Potassium Replacement Protocol 1 Each Misc) 1 each MISCELLANE DAILY PRN; Protocol PRN Reason: Per Protocol Pantoprazole Sodium (Pantoprazole 40 Mg Tablet) 40 mg PO AC-BRKFST [facility] Last Admin: 11/26/21 06:39 Dose: 40 mg Documented by: Pregabalin (Pregabalin 100 Mg Cap) 200 mg PO BID [facility] Last Admin: 11/26/21 08:16 Dose: 200 mg Documented by: Quetiapine Fumarate (Quetiapine 50 Mg Tab) 50 mg PO BID [facility] Last Admin: 11/26/21 09:57 Dose: 50 mg Documented by: Sertraline HCl (Sertraline 50 Mg Tab) 50 mg PO DAILY [facility] Last Admin: 11/26/21 08:17 Dose: 50 mg Documented by: Zinc Sulfate (Zinc Sulfate 220 Mg Cap) 220 mg PO DAILY [facility] Last Admin: 11/26/21 08:17 Dose: 220 mg Documented by: Social history: Patient is on Social Security. Does not smoke or drink alcohol. Patient's daughters family lives with him. Family history: Father at the age of 40 with heart attack Physical examination: VITAL SIGNS: 99.1, 76, 21, 145/82, 100% on the ventilator GENERAL: Laying in bed, . PEG tube . Tracheostomy tube. LUNGS: Respiratory rate increased,. PSYCH: Unable to assess NEURO: Eyes open. Follows with eyes. Rest of the exam per nursing and pulmonary INVESTIGATIONS, reviewed in the clinical context: November 26: White count 11.6 hemoglobin 9.7 platelets 280 sodium 140 potassium 3.1 creatinine 0.38. ABG: PH 7.46 November 25: White count 7.6 hemoglobin 7.3 platelets 193 sodium 134 potassium 3.1 BUN 20 creatinine 0.5 to bicarb 35. PH 7.5 to November 24: White count 19.1 hemoglobin 9.4 potassium 4.5 creatinine 0.46 Blood culture positive for Staphylococcus epidermidis/coagulates negative. Sputum culture: MSSA, Bibi albicans November 17: White count 16.9 hemoglobin 11.1 potassium 3.3 creatinine 0.4 November 16: White count 17 hemoglobin 8.1 potassium 3.2 creatinine 0.5 to October 28: D-dimer 13.4 to October 26: D-dimer 8.48 CRP 24 Chest CTA [October 26: biLateral pulmonary embolism Doppler ultrasound lower extremity: Negative for DVT October 24: White count 9.7 hemoglobin 15.3 platelets 221 d-dimer 1.93 progression 4.2 creatinine 0.71 CRP 5.5 pro-calcitonin 0.08 White count 9.9 hemoglobin 16 platelets 234 d-dimer 0.98 sodium 141 potassium 3.4 creatinine 0.81 Lactic acid 2.9 LDH 1422 CRP 7.5 EKG tracing personally reviewed by me-normal sinus rhythm. Nonspecific ST segment changes. Chest x-ray film personally reviewed by me-bilateral infiltrates Assessment and plan: -Acute severe COVID 19 pneumonitis in a patient who did not take the COVID-19 vaccine: Slow to respond Dexamethasone, vitamin C, vitamin D, zinc. outside the window for Remdesivir. -Acute hypoxic respiratory failure from COVID-19: Slow to respond intubated October 30. FiO2 45/8 -Metabolic alkalosis, likely from volume contraction from IV Lasix IV Lasix discontinued -Active bleeding around tracheostomy into the trachea and lungs. Status post bronchoscopy. Evacuation of large amounts of blood clot. Tracheostomy removed. Patient reintubated. revision tracheostomy tube - November 19. Lovenox was resumed. November 22: At the tracheostomy site: re- bleeding with blood clots followed by bronchoscopy. Revision of tracheostomy done. -Bilateral pulmonary embolism secondary to COVID-19 Eliquis -discontinued because of bleeding. No [place] filter per vascular. Lovenox resumed after revision tracheostomy. Lovenox discontinued, because of bleeding: November 22. [place] filter placed by Dr. Boothe on November 23 -Essential hypertension: Labile. Likely anxiety component withdrawal component from medications Lopressor 50 mg twice a day, amlodipine 10 mg a day. Cozaar 100 mg daily at bedtime -Diabetes mellitus type 2, on oral hypoglycemic, uncontrolled with hyperglycemia Increase Levemir 32 units daily at bedtime. Follow Accu-Cheks -Chronic insomnia for medical conditions Elavil 50 mg daily at bedtime -Hyperlipidemia TriCor 48 mg daily -Hypoalbuminemia Acute phase reactant -Pneumonia with cultures positive for MSSA and Bibi IV Ancef and IVEraxis -Obstructive sleep apnea On CPAP at home -Pneumomediastinum and subcutis emphysema complications of COVID-19/pneumonia. - right upper apical pneumothorax less than 5%. -Diabetic peripheral neuropathy Lyrica 200 mg twice daily -Full code For anxiety component Seroquel added by pulmonary. 2 feeding continues. I ncrease Levemir to 32 units. Continue IV Ancef and antifungal.
[2021-11-26 20:06] LABS: Glucose,Whole Blood 167 mg/dL (75-99)
[2021-11-26] MEDS: LOSARTAN 50 MG TAB PO SCH (20:10)
[2021-11-26] MEDS: INSULIN DETEMIR (LEVEMIR) 100 UNIT/ML SYR SQ SCH (20:11)
[2021-11-26] MEDS: ACETAMINOPHEN TAB 325 MG TAB PO PRN (20:17)
--- NOTE | 2021-11-26 21:52 | P.PN ---
Subjective Progress Note Date: 11/25/21 Principal diagnosis: Pneumonia, rash, leukocytosis Patient is a 61-year male admitted to the hospital October 23, 2021 patient diagnosed with COVID-19 pneumonia did have a respiratory failure requiring intubation failed to be extubated status post trach and PEG on November 10, 2021 patient also have a component of secondary to pneumonia with MSSA patient has received more than 2 weeks course of Zosyn which was discontinued 11/17/2021 because of rash. On today's evaluation that is 11/25/2021 the patient remains to be afebrile, patient is hemodynamically stable not requiring any pressor support, the patient FiO2 is stable,no significant purulent secretion through the ET has been reported by nursing staff, patient been tolerating his tube feeds and no diarrhea has been reported Objective - Vital Signs Vital signs: Vital Signs Temp 98.9 F 11/25/21 12:00 Pulse 82 11/25/21 14:30 Resp 32 H 11/25/21 14:30 BP 166/79 11/25/21 14:30 Pulse Ox 98 11/25/21 14:30 Intake & Output 11/24/21 11/25/21 11/25/21 18:59 06:59 18:59 Intake Total 4843.079 4624.239 741.896 Output Total 2125 1055 2695 Balance -297.901 364.239 -1953.104 Weight 128.4 kg 128.4 kg Intake: IV 353 326 151 0.9 Normal Saline @ 20 mL 220 240 130 /hr KVO Pressure bag 33 36 21 ceFAZolin 2 gm In Sodium 100 50 Chloride 0.9% 50 ml @ 100 mls/hr IVPB Q8HR [facility] Rx# :[id number] Intake, IV Titration 991.099 637.239 332.896 Amount Anidulafungin 100 mg In 100 Sodium Chloride 0.9% 100 ml @ 84 mls/hr IVPB DAILY @1200 [facility] Rx#:[id number] Cisatracurium 200 mg In 254.866 Sodium Chloride 0.9% 180 ml @ 1 MCG/KG/MIN 7.638 mls/hr IV .Q24H [facility] Rx#: [id number] Clevidipine Butyrate 25 60.000 54.599 mg In Empty Bag 1 bag @ 1 MG/HR 2 mls/hr IV .Q24H [facility] Rx#:[id number] Dexmedetomidine/0.9% NaCl 52.002 (Pmx) 400 mcg In Empty Bag 1 bag @ 0.2 MCG/KG/HR 6.42 mls/hr IV .[id number] [facility] Rx#:[id number] fentaNYL (PF) 2,500 mcg 276.233 189.961 52.389 In Sodium Chloride 0.9% 200 ml @ 0.5 MCG/KG/HR 4. 082 mls/hr IV .Q24H [facility] Rx#:[id number] propofoL 1,000 mg In 400.000 392.679 128.505 Empty Bag 1 bag @ Titrate IV .Q0M [facility] Rx#: [id number] Tube Feeding 363 396 198 Other 120 60 60 Output: Urine 2125 1055 2695 Other: Voiding Method Indwelling Catheter Indwelling Catheter Indwelling Catheter ABP, PAP, CO, CI - Last Documented Arterial Blood Pressure 176/69 - Exam GENERAL DESCRIPTION: Middle-age male intubated on the vent RESPIRATORY SYSTEM: Unlabored breathing , decreased breath sounds at bases HEART: S1 S2 regular rate and rhythm ,no loud murmurs ABDOMEN: Soft , no tenderness EXTREMITIES: No edema feet - Labs CBC & Chem 7: 11/26/21 03:42 11/26/21 11:56 Labs: Abnormal Lab Results - Last 24 Hours (Table) 11/24/21 11/24/21 11/25/21 Range/Units 17:40 23:31 03:40 RBC 2.27 L (4.30-5.90) m/uL Hgb 7.3 L D (13.0-17.5) gm/dL Hct 23.3 L (39.0-53.0) % MCV 102.7 H (80.0-100.0) fL ABG pH (7.35-7.45) ABG pCO2 (35-45) mmHg ABG pO2 (83-108) mmHg ABG HCO3 (21-25) mmol/L ABG Total CO2 (19-24) mmol/L ABG O2 Saturation (94-97) % Sodium (137-145) mmol/L Potassium (3.5-5.1) mmol/L Chloride (98-107) mmol/L Carbon Dioxide (22-30) mmol/L Creatinine (0.66-1.25) mg/dL Glucose (74-99) mg/dL POC Glucose (mg/dL) 229 H 211 H (75-99) mg/dL Calcium (8.4-10.2) mg/dL AST (17-59) U/L C-Reactive Protein (<1.0) mg/dL Total Protein (6.3-8.2) g/dL Albumin (3.5-5.0) g/dL 11/25/21 11/25/21 11/25/21 Range/Units 03:40 05:36 05:50 RBC (4.30-5.90) m/uL Hgb (13.0-17.5) gm/dL Hct (39.0-53.0) % MCV (80.0-100.0) fL ABG pH 7.52 H (7.35-7.45) ABG pCO2 47 H (35-45) mmHg ABG pO2 208 H (83-108) mmHg ABG HCO3 38 H (21-25) mmol/L ABG Total CO2 39 H (19-24) mmol/L ABG O2 Saturation 100.0 H (94-97) % Sodium 134 L (137-145) mmol/L Potassium 3.1 L (3.5-5.1) mmol/L Chloride 97 L (98-107) mmol/L Carbon Dioxide 35 H (22-30) mmol/L Creatinine 0.52 L (0.66-1.25) mg/dL Glucose 153 H (74-99) mg/dL POC Glucose (mg/dL) 156 H (75-99) mg/dL Calcium 7.8 L (8.4-10.2) mg/dL AST 14 L (17-59) U/L C-Reactive Protein 4.5 H (<1.0) mg/dL Total Protein 4.8 L (6.3-8.2) g/dL Albumin 2.4 L (3.5-5.0) g/dL 11/25/21 11/25/21 Range/Units 11:35 12:03 RBC (4.30-5.90) m/uL Hgb (13.0-17.5) gm/dL Hct (39.0-53.0) % MCV (80.0-100.0) fL ABG pH (7.35-7.45) ABG pCO2 (35-45) mmHg ABG pO2 (83-108) mmHg ABG HCO3 (21-25) mmol/L ABG Total CO2 (19-24) mmol/L ABG O2 Saturation (94-97) % Sodium (137-145) mmol/L Potassium (3.5-5.1) mmol/L Chloride (98-107) mmol/L Carbon Dioxide (22-30) mmol/L Creatinine (0.66-1.25) mg/dL Glucose (74-99) mg/dL POC Glucose (mg/dL) 130 H 125 H (75-99) mg/dL Calcium (8.4-10.2) mg/dL AST (17-59) U/L C-Reactive Protein (<1.0) mg/dL Total Protein (6.3-8.2) g/dL Albumin (3.5-5.0) g/dL Assessment and Plan (1) Fever Current Visit: Yes Status: Acute Code(s): R50.9 - FEVER, UNSPECIFIED SNOMED Code(s): 110375823 (2) Rash Current Visit: Yes Status: Acute Code(s): R21 - RASH AND OTHER NONSPECIFIC SKIN ERUPTION SNOMED Code(s): 613759596 (3) COVID-19 Current Visit: Yes Status: Acute Code(s): U07.1 - COVID-19 SNOMED Code(s): 544756024 Plan: 1-Patient with rash likely related to Zosyn which has been discontinued rash has resolved. 2 elevated white count question of possible oropharyngeal candidiasis patient is currently covered with Eraxis 3-patient did have a low-grade fever , repeat sputum culture is growing MSSA and Bibi, patient to continue with the cefazolin and will monitor closely continue supportive care Time with Patient: Less than 30
--- NOTE | 2021-11-26 21:54 | P.PN ---
Subjective Progress Note Date: 11/26/21 Principal diagnosis: Pneumonia, rash, leukocytosis Patient is a 61-year male admitted to the hospital October 23, 2021 patient diagnosed with COVID-19 pneumonia did have a respiratory failure requiring intubation failed to be extubated status post trach and PEG on November 10, 2021 patient also have a component of secondary to pneumonia with MSSA patient has received more than 2 weeks course of Zosyn which was discontinued 11/17/2021 because of rash. On today's evaluation that is 11/26/2021 the patient continues to be afebrile, patient is hemodynamically stable not requiring any pressor support, the patient FiO2 is stable at 50%,no significant purulent secretion through the ET or diarrhea has been reported and the patient is tolerating his tube feeds Objective - Vital Signs Vital signs: Vital Signs Temp 99.1 F 11/26/21 16:00 Pulse 78 11/26/21 19:00 Resp 27 H 11/26/21 19:00 BP 161/85 11/26/21 19:00 Pulse Ox 100 11/26/21 19:00 Intake & Output 11/26/21 11/26/21 11/27/21 06:59 18:59 06:59 Intake Total 4115.015 0405.047 0 Output Total 3325 4095 Balance -2202.664 -2805.953 0 Weight 128.2 kg Intake: IV 276 276 0.9 Normal Saline @ 20 mL 240 240 /hr KVO Pressure bag 36 36 Intake, IV Titration 390.336 209.047 0 Amount Clevidipine Butyrate 25 125.601 112 mg In Empty Bag 1 bag @ 1 MG/HR 2 mls/hr IV .Q24H [facility] Rx#:[id number] Dexmedetomidine/0.9% NaCl 20.597 0 (Pmx) 400 mcg In Empty Bag 1 bag @ 0.2 MCG/KG/HR 6.42 mls/hr IV .[id number] [facility] Rx#:[id number] propofoL 1,000 mg In 244.138 97.047 Empty Bag 1 bag @ Titrate IV .Q0M [facility] Rx#: [id number] Tube Feeding 396 684 Other 60 120 Output: Urine 3325 4095 Other: Voiding Method Indwelling Catheter Indwelling Catheter ABP, PAP, CO, CI - Last Documented Arterial Blood Pressure 182/71 - Exam GENERAL DESCRIPTION: Middle-age male intubated on the vent RESPIRATORY SYSTEM: Unlabored breathing , decreased breath sounds at bases HEART: S1 S2 regular rate and rhythm ,no loud murmurs ABDOMEN: Soft , no tenderness EXTREMITIES: No edema feet - Labs CBC & Chem 7: 11/26/21 03:42 11/26/21 11:56 Labs: Abnormal Lab Results - Last 24 Hours (Table) 11/25/21 11/26/21 11/26/21 Range/Units 23:33 03:42 03:42 WBC 11.6 H (3.8-10.6) k/uL RBC 2.97 L (4.30-5.90) m/uL Hgb 9.7 L D (13.0-17.5) gm/dL Hct 30.5 L (39.0-53.0) % MCV 102.7 H (80.0-100.0) fL Neutrophils # 8.3 H (1.3-7.7) k/uL ABG pH (7.35-7.45) ABG pCO2 (35-45) mmHg ABG HCO3 (21-25) mmol/L ABG Total CO2 (19-24) mmol/L ABG O2 Saturation (94-97) % Potassium 3.1 L (3.5-5.1) mmol/L Carbon Dioxide 37 H (22-30) mmol/L Creatinine 0.38 L (0.66-1.25) mg/dL Glucose 158 H (74-99) mg/dL POC Glucose (mg/dL) 193 H (75-99) mg/dL Calcium 8.3 L (8.4-10.2) mg/dL C-Reactive Protein 4.0 H (<1.0) mg/dL Total Protein 6.0 L (6.3-8.2) g/dL Albumin 3.0 L (3.5-5.0) g/dL 11/26/21 11/26/21 11/26/21 Range/Units 05:44 05:50 11:53 WBC (3.8-10.6) k/uL RBC (4.30-5.90) m/uL Hgb (13.0-17.5) gm/dL Hct (39.0-53.0) % MCV (80.0-100.0) fL Neutrophils # (1.3-7.7) k/uL ABG pH 7.46 H (7.35-7.45) ABG pCO2 57 H (35-45) mmHg ABG HCO3 41 H* (21-25) mmol/L ABG Total CO2 42 H (19-24) mmol/L ABG O2 Saturation 97.4 H (94-97) % Potassium (3.5-5.1) mmol/L Carbon Dioxide (22-30) mmol/L Creatinine (0.66-1.25) mg/dL Glucose (74-99) mg/dL POC Glucose (mg/dL) 138 H 226 H (75-99) mg/dL Calcium (8.4-10.2) mg/dL C-Reactive Protein (<1.0) mg/dL Total Protein (6.3-8.2) g/dL Albumin (3.5-5.0) g/dL 11/26/21 11/26/21 Range/Units 17:25 20:04 WBC (3.8-10.6) k/uL RBC (4.30-5.90) m/uL Hgb (13.0-17.5) gm/dL Hct (39.0-53.0) % MCV (80.0-100.0) fL Neutrophils # (1.3-7.7) k/uL ABG pH (7.35-7.45) ABG pCO2 (35-45) mmHg ABG HCO3 (21-25) mmol/L ABG Total CO2 (19-24) mmol/L ABG O2 Saturation (94-97) % Potassium (3.5-5.1) mmol/L Carbon Dioxide (22-30) mmol/L Creatinine (0.66-1.25) mg/dL Glucose (74-99) mg/dL POC Glucose (mg/dL) 216 H 167 H (75-99) mg/dL Calcium (8.4-10.2) mg/dL C-Reactive Protein (<1.0) mg/dL Total Protein (6.3-8.2) g/dL Albumin (3.5-5.0) g/dL Assessment and Plan (1) Fever Current Visit: Yes Status: Acute Code(s): R50.9 - FEVER, UNSPECIFIED SNOMED Code(s): 119325583 (2) Rash Current Visit: Yes Status: Acute Code(s): R21 - RASH AND OTHER NONSPECIFIC SKIN ERUPTION SNOMED Code(s): 266866273 (3) COVID-19 Current Visit: Yes Status: Acute Code(s): U07.1 - COVID-19 SNOMED Code(s): 538630035 Plan: 1-Patient with rash likely related to Zosyn which has been discontinued rash has resolved. 2 leukocytosis and question of possible oropharyngeal candidiasis patient is currently covered with Eraxis , WBC down to 11,000 3-patient did have a low-grade fever , repeat sputum culture is growing MSSA and Bibi, patient is currently covered with the cefazolin and Eraxis, will monitor closely continue supportive care Time with Patient: Less than 30
[2021-11-27 00:20] LABS: Glucose,Whole Blood 113 mg/dL (75-99)
[2021-11-27] MEDS: INSULIN ASPART (NovoLOG) 100 UNIT/ML VIAL SQ SCH ×5 (00:21→23:58)
[2021-11-27] MEDS: ENALAPRILAT 1.25 MG/ML 1 ML VIAL IVP PRN ×4 (01:46→23:35)
[2021-11-27] MEDS: ARTIFICIAL TEARS-HYPROMELLOSE DROPS 15 ML BTL BOTH EYES SCH ×6 (04:00→23:35)
[2021-11-27 04:05] LABS: Glucose,Whole Blood 136 mg/dL (75-99)
[2021-11-27] MEDS: HYDROmorphone 1 MG/ML 1 ML SYRINGE IVP PRN ×2 (05:00→14:48)
[2021-11-27 05:33] LABS: HCT 26.4 % (39.0-53.0); HGB 8.4 gm/dL (13.0-17.5); Hypochromasia Marked; MCHC 31.9 g/dL (31.0-37.0); MCV 103.4 fL (80.0-100.0); Macrocytosis Slight; Mean Platelet Volume 8.4; Platelet Count 229 k/uL (150-450); RBC 2.55 m/uL (4.30-5.90); RDW 14.8 % (11.5-15.5); WBC 7.6 k/uL (3.8-10.6)
[2021-11-27 05:51] LABS: African American GFR (CKD) >90 (>60 ml/min/1.73 sqM); Anion Gap 0 mmol/L; Blood Urea Nitrogen 22 mg/dL (9-20); Calcium 8.1 mg/dL (8.4-10.2); Carbon Dioxide 40 mmol/L (22-30); Chloride 103 mmol/L (98-107); Glucose 137 mg/dL (74-99); Non-African American GFR(CKD) >90 (>60 ml/min/1.73 sqM); Potassium 3.3 mmol/L (3.5-5.1); Sodium 143 mmol/L (137-145)
[2021-11-27 06:14] LABS: ABG Base Excess 17.9 mmol/L; ABG Oxygen Saturation 99.2 % (94-97); ABG PCO2 51 mmHg (35-45); ABG PH 7.52 (7.35-7.45); ABG PO2 109 mmHg (83-108); ABG TCO2 42 mmol/L (19-24); Allen Test Performed? Yes
[2021-11-27 06:17] LABS: ABG HCO3 41 mmol/L (21-25)
[2021-11-27 06:22] LABS: Glucose,Whole Blood 155 mg/dL (75-99)
[2021-11-27] MEDS: hydrALAZINE HCL 20 MG/ML 1 ML VIAL IVP PRN ×2 (07:18→17:07)
[2021-11-27] MEDS: ALBUTEROL HFA INHALER INHALATION PRN ×4 (08:06→20:59)
[2021-11-27] MEDS: PANTOPRAZOLE 40 MG TABLET PO SCH (08:20)
[2021-11-27] MEDS: bisacodyL 10 MG SUPP RECTAL SCH ×2 (08:24→19:56)
[2021-11-27] MEDS: CHLORHEXIDINE GLUCONATE 15 ML CUP MUCOUS MEM SCH ×2 (09:57→19:59)
[2021-11-27] MEDS: POTASSIUM BICARBONATE/CIT AC 20 MEQ TABLET.EFF NG-TUBE SCH ×2 (09:58→10:00)
[2021-11-27] MEDS: PREGABALIN 100 MG CAP PO SCH ×2 (09:58→19:59)
[2021-11-27] MEDS: QUEtiapine 50 MG TAB PO SCH ×2 (09:58→19:59)
[2021-11-27] MEDS: LACTULOSE 20 GM/30 ML CUP PO SCH ×2 (09:59→19:59)
[2021-11-27] MEDS: METOPROLOL TARTRATE 50 MG TAB PO SCH ×2 (09:59→20:00)
[2021-11-27] MEDS: ASCORBIC ACID 500 MG TAB PO SCH (09:59)
[2021-11-27] MEDS: CHOLECALCIFEROL 25 MCG (1000 IU) TABLET PO SCH (09:59)
[2021-11-27] MEDS: SERTRALINE 50 MG TAB PO SCH (09:59)
[2021-11-27] MEDS: ZINC SULFATE 220 MG CAP PO SCH (09:59)
[2021-11-27] MEDS: amLODIPine 10 MG TAB PO SCH (09:59)
[2021-11-27] MEDS: DEXAMETHASONE SOD PHOSPHATE 4 MG/ML 1 ML VIAL IVP SCH (09:59)
[2021-11-27] MEDS: DEXMEDETOMIDINE/0.9% NACL(PMX) 400 MCG in EMPTY BAG 1 BAG IV SCH ×2 (10:00→21:54)
--- NOTE | 2021-11-27 11:49 | P.PN ---
Subjective Progress Note Date: 11/27/21 Principal diagnosis: The patient is seen today 11/27/2021 in follow-up in the intensive care unit. He has been here for 35 days secondary to COVID-19 pneumonia with acute hypoxemi c respiratory failure. He has since been trached and had a PEG tube placed. He is still on the mechanical ventilator. Currently on assist-control mode at a rate of 24, tidal volume 350, FiO2 40% and a PEEP of 8. Morning blood gases reveal a P O2 of 109, pCO2 51, pH 7.52. He remains on Precedex at 0.4 mcg/kg per hour. 0.9 normal saline at KVO. He is being nourished with vital HPV at 57 ML's per hour which is goal. He said sputum culture positive for Bibi and MSSA. He remains on antibiotics in the form of Ancef and Eraxis. He also remains on Decadron, vitamin supplements. He has had a very labile blood pressure. White count 7.6. Hemoglobin 8.4. Sodium 143. Potassium 43.3. Bi carb 40. BUN 22. Creatinine 0.40. Glucose 137. He remains on Levemir insulin. Objective - Vital Signs Vital signs: Vital Signs Temp 99.3 F 11/27/21 08:00 Pulse 86 11/27/21 11:00 Resp 21 11/27/21 11:00 BP 109/56 11/27/21 11:00 Pulse Ox 96 11/27/21 11:00 Intake & Output 11/26/21 11/27/21 11/27/21 18:59 06:59 18:59 Intake Total 1289.047 988.832 633.608 Output Total 4095 355 315 Balance -2805.953 633.832 318.608 Weight 122.3 kg 122.3 kg Intake: IV 276 253 115 0.9 Normal Saline @ 20 mL 240 220 100 /hr KVO Pressure bag 36 33 15 Intake, IV Titration 209.047 18.832 53.608 Amount Clevidipine Butyrate 25 112 mg In Empty Bag 1 bag @ 1 MG/HR 2 mls/hr IV .Q24H [facility] Rx#:[id number] Dexmedetomidine/0.9% NaCl 18.832 53.608 (Pmx) 400 mcg In Empty Bag 1 bag @ 0.2 MCG/KG/HR 6.42 mls/hr IV .[id number] [facility] Rx#:[id number] propofoL 1,000 mg In 97.047 Empty Bag 1 bag @ Titrate IV .Q0M [facility] Rx#: [id number] Tube Feeding 684 627 285 Other 120 90 180 Output: Urine 4095 355 315 Other: Voiding Method Indwelling Catheter Indwelling Catheter Indwelling Catheter ABP, PAP, CO, CI - Last Documented Arterial Blood Pressure 125/41 - Exam GENERAL EXAM: 61-year-old male patient on the mechanical ventilator with FiO2 of 40% and a PEEP of 8. HEAD: Normocephalic. EYES: Sluggish reaction of pupils, equal size. NOSE: Clear with pink turbinates. THROAT: No erythema or exudates. NECK: Tracheostomy tube secured in place. No masses, no JVD. CHEST: No chest wall deformity. LUNGS: Equal air entry with coarse crackles in the posterior bases. CVS: S1 and S2 normal with no audible murmur, regular rhythm. ABDOMEN: PEG tube exit site clean and dry. No hepatosplenomegaly, normal bowel sounds, no guarding or rigidity. SPINE: No scoliosis or deformity SKIN: No rashes CENTRAL NERVOUS SYSTEM: Sedated, tone is normal in all 4 extremities. EXTREMITIES: There is 1+ peripheral edema. No clubbing, no cyanosis. Peripheral pulses are intact. - Labs CBC & Chem 7: 11/27/21 04:00 11/27/21 04:00 Labs: Abnormal Lab Results - Last 24 Hours (Table) 11/26/21 11/26/21 11/26/21 Range/Units 11:53 17:25 20:04 RBC (4.30-5.90) m/uL Hgb (13.0-17.5) gm/dL Hct (39.0-53.0) % MCV (80.0-100.0) fL ABG pH (7.35-7.45) ABG pCO2 (35-45) mmHg ABG pO2 (83-108) mmHg ABG HCO3 (21-25) mmol/L ABG Total CO2 (19-24) mmol/L ABG O2 Saturation (94-97) % Potassium (3.5-5.1) mmol/L Carbon Dioxide (22-30) mmol/L BUN (9-20) mg/dL Creatinine (0.66-1.25) mg/dL Glucose (74-99) mg/dL POC Glucose (mg/dL) 226 H 216 H 167 H (75-99) mg/dL Calcium (8.4-10.2) mg/dL 11/27/21 11/27/21 11/27/21 Range/Units 00:19 04:00 04:00 RBC 2.55 L (4.30-5.90) m/uL Hgb 8.4 L (13.0-17.5) gm/dL Hct 26.4 L (39.0-53.0) % MCV 103.4 H (80.0-100.0) fL ABG pH (7.35-7.45) ABG pCO2 (35-45) mmHg ABG pO2 (83-108) mmHg ABG HCO3 (21-25) mmol/L ABG Total CO2 (19-24) mmol/L ABG O2 Saturation (94-97) % Potassium 3.3 L (3.5-5.1) mmol/L Carbon Dioxide 40 H (22-30) mmol/L BUN 22 H (9-20) mg/dL Creatinine 0.40 L (0.66-1.25) mg/dL Glucose 137 H (74-99) mg/dL POC Glucose (mg/dL) 113 H (75-99) mg/dL Calcium 8.1 L (8.4-10.2) mg/dL 11/27/21 11/27/21 11/27/21 Range/Units 04:03 05:47 06:20 RBC (4.30-5.90) m/uL Hgb (13.0-17.5) gm/dL Hct (39.0-53.0) % MCV (80.0-100.0) fL ABG pH 7.52 H (7.35-7.45) ABG pCO2 51 H (35-45) mmHg ABG pO2 109 H (83-108) mmHg ABG HCO3 41 H* (21-25) mmol/L ABG Total CO2 42 H (19-24) mmol/L ABG O2 Saturation 99.2 H (94-97) % Potassium (3.5-5.1) mmol/L Carbon Dioxide (22-30) mmol/L BUN (9-20) mg/dL Creatinine (0.66-1.25) mg/dL Glucose (74-99) mg/dL POC Glucose (mg/dL) 136 H 155 H (75-99) mg/dL Calcium (8.4-10.2) mg/dL Assessment and Plan Assessment: 1 Acute hypoxic respiratory failure related to acute COVID-19 related pneumonia, patient presented to the emergency department on 10/23/2021 with 2 week history of symptoms, patient is outside the window for Remdesivir, he is a non-vaccinated adult. Patient was started on Baricitinib in view of worsening hypoxic respiratory failure, on 10/29/2021 transferred to the intensive care unit, and intubated on 10/30/2021. He did undergo tracheostomy tube and PEG tube placements on 11/10/2021. Baricitinib has been discontinued in view of positive blood cultures. Blood cultures have shown coagulase-negative staph, 2 organisms, possibly contamination, however his sputum from 10/30/2021 showed group B strep. Patient has been weaned off the paralytics again on 11/24/2021, he is currently on FiO2 of 40%, and PEEP of 8, doing significantly better, we'll proceed with sedation holiday and spontaneous breathing trials today 11/27/2021 2 Recurrent bleeding from surgical site around tracheostomy, status post revision of tracheostomy site, reintubation, bronchoscopy 2, please refer to the full operative report on this patient from 11/15/2021 and 11/22/2021. Patient was previously on Eliquis which was discontinued, and was then placed on Lovenox 80 mg twice daily for acute pulmonary embolism diagnosed during this ad mission. Lovenox has been placed on hold, patient had SVC filter placement on 11/23/2021 3 Left lung collapse secondary to mucus plugging and blood clots requiring therapeutic bronchoscopy and lavage of the left lung extraction of the blood clots from the left knee mainstem bronchus left upper lobe bronchus lingula and left lower lobe bronchus and right upper lobe bronchus and right middle lobe bronchus with complete reexpansion of the left lung post procedure this was done on 11/18/2021 4 Pneumomediastinum and subcutaneous emphysema, complication of COVID-19 pneumonia, resolved 5 Tiny right apical pneumothorax, resolved 6 Acute blood loss anemia related to bleeding from the surgical site around tracheostomy, and anticoagulation, currently off anticoagulation, it remains hemodynamically stable 7 Acute pulmonary embolism within the lower lobe, right artery right greater than left, started on Eliquis on 10/26/2021, however patient had 3 episodes of major bleeding including epistaxis, and 2 episodes of bleeding from the surgical wound at the fresh tracheostomy site, and patient is status post SVC filter placement on 11/23/2021 8 Diabetes mellitus type 2 with diabetic neuropathy 9 Hypertension 10 Hyperlipidemia 11 Obstructive sleep apnea with previous history of UPPP 12 History of right eye melanoma with multiple surgeries 13 Previous history of CVA 14 Rheumatoid arthritis 15 History of gout 16 Previous history of MRSA infection in the wound on his back 17 Mild lactic acidosis, improved with IV hydration 18 Elevated inflammatory markers related to acute COVID-19 pneumonia 19 BPH with previous history of TURP Plan: The patient was seen and evaluated ABGs and labs reviewed Currently 40% FiO2 and a PEEP of 8 Continue to titrate the FiO2 as tolerated We'll give a spontaneous breathing trial today on pressure support of 10 and CPAP of 8 Continued on Ancef and Eraxis Wean down Decadron Prognosis remains guarded We'll continue to follow Critical care time 38 minutes I, the cosigning physician, performed a history & physical examination of the patient. Lungs sounds are coarse crackles in the bilateral bases. Maintaining O2 saturations in the 90s on the mechanical ventilator with an FiO2 of 40% and a PEEP of 8. I discussed the assessment and plan of care with my nurse practitioner, Jenna Batres. I attest to the above note as dictated by her.
[2021-11-27 11:56] LABS: Glucose,Whole Blood 192 mg/dL (75-99)
[2021-11-27] MEDS: ANIDULAFUNGIN 100 MG in SODIUM CHLORIDE 0.9% 100 ML IVPB SCH (11:59)
--- NOTE | 2021-11-27 14:26 | P.PN ---
Subjective Progress Note Date: 11/27/21 CHIEF COMPLAINT: COVID-19 pneumonia HISTORY OF PRESENT ILLNESS: Patient is in the ICU on mechanical ventilation. Initial tracheostomy and PEG tube placement on 11/10/2021. He is status post second revision of tracheostomy and partial thyroidectomy on 11/22 due to bleeding from tracheostomy site from Lovenox. He also required bronchoscopy with suctioning of blood clots from the airway. Patient had IVC filter placement done 11/23. Patient's Lovenox was discontinued. Patient has had no further bleeding from tracheostomy site. Patient is tolerating tube feeds. His tube feeds are at goal at 57 mL per hour. Patient scheduled for weaning trials today. Afebrile. WBC 7.6 hemoglobin 8.4 platelets 229 potassium 3.3 being replaced Patient seen and examined with Dr. daniel PHYSICAL EXAM: VITAL SIGNS: Reviewed. GENERAL: Well-developed in no acute distress. HEENT: Head is atraumatic, normocephalic. Tracheostomy site does have an open area ABDOMEN: Soft. Nondistended. Nontender. PEG tube site clean dry and intact NEUROLOGIC: Intubated and sedated ASSESSMENT: 1. Acute hypoxic respiratory failure secondary to COVID-19 pneumonia requiring mechanical ventilation 2. Severe protein calorie malnutrition 3. Bilateral pulmonary emboli 4. Bleeding at tracheostomy site status post second tracheostomy revision PLAN: -Continue ICU management and supportive care -Continue tube feeds -Continue supportive care for tracheostomy -Continue to monitor Physician [employer] note has been reviewed by physician. Signing provider agrees with the documented findings, assessment, and plan of care. Objective - Vital Signs Vital signs: Vital Signs Temp 97.9 F 11/27/21 12:00 Pulse 80 11/27/21 14:00 Resp 25 H 11/27/21 14:00 BP 130/64 11/27/21 14:00 Pulse Ox 100 11/27/21 14:00 Intake & Output 11/26/21 11/27/21 11/27/21 18:59 06:59 18:59 Intake Total 1289.047 988.832 919.979 Output Total 4095 355 515 Balance -2805.953 633.832 404.979 Weight 122.3 kg 122.3 kg Intake: IV 276 253 184 0.9 Normal Saline @ 20 mL 240 220 160 /hr KVO Pressure bag 36 33 24 Intake, IV Titration 209.047 18.832 69.979 Amount Clevidipine Butyrate 25 112 mg In Empty Bag 1 bag @ 1 MG/HR 2 mls/hr IV .Q24H [facility] Rx#:[id number] Dexmedetomidine/0.9% NaCl 18.832 69.979 (Pmx) 400 mcg In Empty Bag 1 bag @ 0.2 MCG/KG/HR 6.42 mls/hr IV .[id number] [facility] Rx#:[id number] propofoL 1,000 mg In 97.047 Empty Bag 1 bag @ Titrate IV .Q0M [facility] Rx#: [id number] Tube Feeding 684 627 456 Other 120 90 210 Output: Urine 4095 355 515 Other: Voiding Method Indwelling Catheter Indwelling Catheter Indwelling Catheter ABP, PAP, CO, CI - Last Documented Arterial Blood Pressure 164/61 - Labs CBC & Chem 7: 11/27/21 04:00 11/27/21 04:00 Labs: Abnormal Lab Results - Last 24 Hours (Table) 11/26/21 11/26/21 11/27/21 Range/Units 17:25 20:04 00:19 RBC (4.30-5.90) m/uL Hgb (13.0-17.5) gm/dL Hct (39.0-53.0) % MCV (80.0-100.0) fL ABG pH (7.35-7.45) ABG pCO2 (35-45) mmHg ABG pO2 (83-108) mmHg ABG HCO3 (21-25) mmol/L ABG Total CO2 (19-24) mmol/L ABG O2 Saturation (94-97) % Potassium (3.5-5.1) mmol/L Carbon Dioxide (22-30) mmol/L BUN (9-20) mg/dL Creatinine (0.66-1.25) mg/dL Glucose (74-99) mg/dL POC Glucose (mg/dL) 216 H 167 H 113 H (75-99) mg/dL Calcium (8.4-10.2) mg/dL 11/27/21 11/27/21 11/27/21 Range/Units 04:00 04:00 04:03 RBC 2.55 L (4.30-5.90) m/uL Hgb 8.4 L (13.0-17.5) gm/dL Hct 26.4 L (39.0-53.0) % MCV 103.4 H (80.0-100.0) fL ABG pH (7.35-7.45) ABG pCO2 (35-45) mmHg ABG pO2 (83-108) mmHg ABG HCO3 (21-25) mmol/L ABG Total CO2 (19-24) mmol/L ABG O2 Saturation (94-97) % Potassium 3.3 L (3.5-5.1) mmol/L Carbon Dioxide 40 H (22-30) mmol/L BUN 22 H (9-20) mg/dL Creatinine 0.40 L (0.66-1.25) mg/dL Glucose 137 H (74-99) mg/dL POC Glucose (mg/dL) 136 H (75-99) mg/dL Calcium 8.1 L (8.4-10.2) mg/dL 11/27/21 11/27/21 11/27/21 Range/Units 05:47 06:20 11:55 RBC (4.30-5.90) m/uL Hgb (13.0-17.5) gm/dL Hct (39.0-53.0) % MCV (80.0-100.0) fL ABG pH 7.52 H (7.35-7.45) ABG pCO2 51 H (35-45) mmHg ABG pO2 109 H (83-108) mmHg ABG HCO3 41 H* (21-25) mmol/L ABG Total CO2 42 H (19-24) mmol/L ABG O2 Saturation 99.2 H (94-97) % Potassium (3.5-5.1) mmol/L Carbon Dioxide (22-30) mmol/L BUN (9-20) mg/dL Creatinine (0.66-1.25) mg/dL Glucose (74-99) mg/dL POC Glucose (mg/dL) 155 H 192 H (75-99) mg/dL Calcium (8.4-10.2) mg/dL
--- NOTE | 2021-11-27 15:02 | P.PN ---
Subjective Progress Note Date: 11/27/21 Principal diagnosis: Pneumonia, rash, leukocytosis Patient is a 61-year male admitted to the hospital October 23, 2021 patient diagnosed with COVID-19 pneumonia did have a respiratory failure requiring intubation failed to be extubated status post trach and PEG on November 10, 2021 patient also have a component of secondary to pneumonia with MSSA patient has received more than 2 weeks course of Zosyn which was discontinued 11/17/2021 because of rash. On today's evaluation that is the patient had did have a low-grade fever of 100.3F last night, the patient is afebrile since then, patient is hemodynamically stable not requiring any pressor support, the patient FiO2 is down to 40 %,no significant purulent secretion through the ET or diarrhea has been reported and the patient is tolerating his tube feeds, patient is slowly waking up and is following some simple commands Objective - Vital Signs Vital signs: Vital Signs Temp 97.9 F 11/27/21 12:00 Pulse 75 11/27/21 13:00 Resp 24 11/27/21 13:00 BP 131/67 11/27/21 13:00 Pulse Ox 100 11/27/21 13:00 Intake & Output 11/26/21 11/27/21 11/27/21 18:59 06:59 18:59 Intake Total 1289.047 988.832 839.979 Output Total 4095 355 415 Balance -2805.953 633.832 424.979 Weight 122.3 kg 122.3 kg Intake: IV 276 253 161 0.9 Normal Saline @ 20 mL 240 220 140 /hr KVO Pressure bag 36 33 21 Intake, IV Titration 209.047 18.832 69.979 Amount Clevidipine Butyrate 25 112 mg In Empty Bag 1 bag @ 1 MG/HR 2 mls/hr IV .Q24H [facility] Rx#:[id number] Dexmedetomidine/0.9% NaCl 18.832 69.979 (Pmx) 400 mcg In Empty Bag 1 bag @ 0.2 MCG/KG/HR 6.42 mls/hr IV .[id number] [facility] Rx#:[id number] propofoL 1,000 mg In 97.047 Empty Bag 1 bag @ Titrate IV .Q0M [facility] Rx#: [id number] Tube Feeding 684 627 399 Other 120 90 210 Output: Urine 7292 596 682 Other: Voiding Method Indwelling Catheter Indwelling Catheter Indwelling Catheter ABP, PAP, CO, CI - Last Documented Arterial Blood Pressure 164/61 - Exam GENERAL DESCRIPTION: Middle-age male intubated on the vent RESPIRATORY SYSTEM: Unlabored breathing , decreased breath sounds at bases HEART: S1 S2 regular rate and rhythm ,no loud murmurs ABDOMEN: Soft , no tenderness EXTREMITIES: No edema feet - Labs CBC & Chem 7: 11/27/21 04:00 11/27/21 04:00 Labs: Abnormal Lab Results - Last 24 Hours (Table) 11/26/21 11/26/21 11/27/21 Range/Units 17:25 20:04 00:19 RBC (4.30-5.90) m/uL Hgb (13.0-17.5) gm/dL Hct (39.0-53.0) % MCV (80.0-100.0) fL ABG pH (7.35-7.45) ABG pCO2 (35-45) mmHg ABG pO2 (83-108) mmHg ABG HCO3 (21-25) mmol/L ABG Total CO2 (19-24) mmol/L ABG O2 Saturation (94-97) % Potassium (3.5-5.1) mmol/L Carbon Dioxide (22-30) mmol/L BUN (9-20) mg/dL Creatinine (0.66-1.25) mg/dL Glucose (74-99) mg/dL POC Glucose (mg/dL) 216 H 167 H 113 H (75-99) mg/dL Calcium (8.4-10.2) mg/dL 11/27/21 11/27/21 11/27/21 Range/Units 04:00 04:00 04:03 RBC 2.55 L (4.30-5.90) m/uL Hgb 8.4 L (13.0-17.5) gm/dL Hct 26.4 L (39.0-53.0) % MCV 103.4 H (80.0-100.0) fL ABG pH (7.35-7.45) ABG pCO2 (35-45) mmHg ABG pO2 (83-108) mmHg ABG HCO3 (21-25) mmol/L ABG Total CO2 (19-24) mmol/L ABG O2 Saturation (94-97) % Potassium 3.3 L (3.5-5.1) mmol/L Carbon Dioxide 40 H (22-30) mmol/L BUN 22 H (9-20) mg/dL Creatinine 0.40 L (0.66-1.25) mg/dL Glucose 137 H (74-99) mg/dL POC Glucose (mg/dL) 136 H (75-99) mg/dL Calcium 8.1 L (8.4-10.2) mg/dL 11/27/21 11/27/21 11/27/21 Range/Units 05:47 06:20 11:55 RBC (4.30-5.90) m/uL Hgb (13.0-17.5) gm/dL Hct (39.0-53.0) % MCV (80.0-100.0) fL ABG pH 7.52 H (7.35-7.45) ABG pCO2 51 H (35-45) mmHg ABG pO2 109 H (83-108) mmHg ABG HCO3 41 H* (21-25) mmol/L ABG Total CO2 42 H (19-24) mmol/L ABG O2 Saturation 99.2 H (94-97) % Potassium (3.5-5.1) mmol/L Carbon Dioxide (22-30) mmol/L BUN (9-20) mg/dL Creatinine (0.66-1.25) mg/dL Glucose (74-99) mg/dL POC Glucose (mg/dL) 155 H 192 H (75-99) mg/dL Calcium (8.4-10.2) mg/dL Assessment and Plan (1) Fever Current Visit: Yes Status: Acute Code(s): R50.9 - FEVER, UNSPECIFIED SNOMED Code(s): 727317796 (2) Rash Current Visit: Yes Status: Acute Code(s): R21 - RASH AND OTHER NONSPECIFIC SKIN ERUPTION SNOMED Code(s): 578635584 (3) COVID-19 Current Visit: Yes Status: Acute Code(s): U07.1 - COVID-19 SNOMED Code(s): 739541474 Plan: 1-Patient with rash likely related to Zosyn which has been discontinued rash has resolved. 2 leukocytosis and question of possible oropharyngeal candidiasis patient is currently covered with Eraxis , WBC down to 7.6 today 3-patient did have a low-grade fever , repeat sputum culture is growing MSSA and Bibi, for the patient is currently being treated with the cefazolin and Eraxis, will monitor his clinical course closely Time with Patient: Less than 30
--- NOTE | 2021-11-27 17:50 | P.PN ---
Subjective This is a pleasant 61-year-old patient, chronic stable medical conditions include diabetes, hypertension, hyperlipidemia, osteoarthritis, peripheral neuropathy, chronic gout. Patient presents with increasing shortness of breath. Cough. Clear sputum. Fever and chills. Tired rundown decrease appetite and diarrhea about 2 times a day. Patient tested positive for COVID-19 on October 09. His initial rapid COVID-19 was negative. In the send out came back positive. Patient did not take the vaccine against COVID-19. He is on 8 L of oxygen this morning. He is outside the window for Remdesivir. Admitted with COVID 19 pneumonitis, acute hypoxic respiratory failure. Started on Decadron. IV fluids. October 26 chest CTA showed bilateral pulmonary embolism. Breathing cord worse in October 30 patient is intubated. Requiring various drips. 2 feeding was started. November 10 patient got a tracheostomy and a PEG tube. Patient subsequently had a large bleed from the tracheostomy site. Desaturated. Tracheostomy had to be removed. Bedside bronchoscopy was done. Large blood loss was removed. Was put back on the ventilator/intubated. Required FFP. November 19 tracheostomy revision done. Lovenox resume. November 22 patient had bleeding a cane around the tracheostomy site. Bedside bronchoscopy was done large amount of blood cause was removed. Tracheostomy was resecured. November [address] [place] [address] Boothe. In the ICU patient been on different drips including propofol, fentanyl, Nimbex, cleviprex. November 24: ICU. Ventilator: FiO2 55 PEEP of 10. 2 feeding at 33 mL an hour. Patient off cleviprex. Oral amlodipine, losartan was added. Drips include fentanyl, propofol, Nimbex. Nimbex and being weaned off. November 25: ICU. Because of a rash Zosyn was discontinued. He is on IV Ancef and eraxis. Ventilator: 60/5. Does open eyes. Follows with eyes. On Precedex. Some fluctuation of blood pressure likely from anxiety. Significantly alkalotic with a pH of 7.5 to also bicarb is up to 35. Patient is likely volume contracted and should benefit from discontinuing IV Lasix. November 26: ICU. Ventilator. FiO2 45 PEEP of 8. 2 feeding continues. Patient is off all drips. Blood pressure does fluctuate. Patient is awake. Lasix has been discontinued. Anxiety component present. Seroquel added by pulmonary.. 11/27/2021 Patient remains in the ICU on mechanical ventilation. He is status post tracheostomy and PEG placement on 11/10. He is being covered with vitamin C, D and zinc as well as dexamethasone 4 mg daily. He has some evidence of oropharyngeal candidiasis and superimposed bacterial pneumonia with MSSA and currently covered with cefazolin and Eraxis ID and pulmonary team on the case. He remains on PEEP of 8 and FiO2 of 40% and his family tachypneic. Objective - Vital Signs Vital signs: Vital Signs Temp 99.3 F 11/27/21 08:00 Pulse 56 L 11/27/21 10:00 Resp 20 11/27/21 10:00 BP 115/57 11/27/21 10:00 Pulse Ox 96 11/27/21 10:00 Intake & Output 11/26/21 11/27/21 11/27/21 18:59 06:59 18:59 Intake Total 1289.047 988.832 553.608 Output Total 4095 355 280 Balance -2805.953 633.832 273.608 Weight 122.3 kg 122.3 kg Intake: IV 276 253 92 0.9 Normal Saline @ 20 mL 240 220 80 /hr KVO Pressure bag 36 33 12 Intake, IV Titration 209.047 18.832 53.608 Amount Clevidipine Butyrate 25 112 mg In Empty Bag 1 bag @ 1 MG/HR 2 mls/hr IV .Q24H [facility] Rx#:[id number] Dexmedetomidine/0.9% NaCl 18.832 53.608 (Pmx) 400 mcg In Empty Bag 1 bag @ 0.2 MCG/KG/HR 6.42 mls/hr IV .[id number] [facility] Rx#:[id number] propofoL 1,000 mg In 97.047 Empty Bag 1 bag @ Titrate IV .Q0M [facility] Rx#: [id number] Tube Feeding 684 627 228 Other 120 90 180 Output: Urine 4095 355 280 Other: Voiding Method Indwelling Catheter Indwelling Catheter Indwelling Catheter ABP, PAP, CO, CI - Last Documented Arterial Blood Pressure 81/40 - Exam -GENERAL: The patient is alert and oriented x3, not in any acute distress. Status post tracheostomy HEENT: Pupils are round and equally reacting to light. EOMI. No scleral icterus. No conjunctival pallor. Normocephalic, atraumatic. No pharyngeal erythema. No thyromegaly. CARDIOVASCULAR: S1 and S2 present. No murmurs, rubs, or gallops. PULMONARY: Chest is clear to auscultation, no wheezing or crackles. -ABDOMEN: Soft, nontender, nondistended, normoactive bowel sounds. No palpable organomegaly. PEG is in place MUSCULOSKELETAL: No joint swelling or deformity. EXTREMITIES: No cyanosis, clubbing, or pedal edema. NEUROLOGICAL: Gross neurological examination did not reveal any focal deficits. SKIN: No rashes. no petechiae. - Labs CBC & Chem 7: 11/27/21 04:00 11/27/21 04:00 Labs: Abnormal Lab Results - Last 24 Hours (Table) 11/26/21 11/26/21 11/26/21 Range/Units 11:53 17:25 20:04 RBC (4.30-5.90) m/uL Hgb (13.0-17.5) gm/dL Hct (39.0-53.0) % MCV (80.0-100.0) fL ABG pH (7.35-7.45) ABG pCO2 (35-45) mmHg ABG pO2 (83-108) mmHg ABG HCO3 (21-25) mmol/L ABG Total CO2 (19-24) mmol/L ABG O2 Saturation (94-97) % Potassium (3.5-5.1) mmol/L Carbon Dioxide (22-30) mmol/L BUN (9-20) mg/dL Creatinine (0.66-1.25) mg/dL Glucose (74-99) mg/dL POC Glucose (mg/dL) 226 H 216 H 167 H (75-99) mg/dL Calcium (8.4-10.2) mg/dL 11/27/21 11/27/21 11/27/21 Range/Units 00:19 04:00 04:00 RBC 2.55 L (4.30-5.90) m/uL Hgb 8.4 L (13.0-17.5) gm/dL Hct 26.4 L (39.0-53.0) % MCV 103.4 H (80.0-100.0) fL ABG pH (7.35-7.45) ABG pCO2 (35-45) mmHg ABG pO2 (83-108) mmHg ABG HCO3 (21-25) mmol/L ABG Total CO2 (19-24) mmol/L ABG O2 Saturation (94-97) % Potassium 3.3 L (3.5-5.1) mmol/L Carbon Dioxide 40 H (22-30) mmol/L BUN 22 H (9-20) mg/dL Creatinine 0.40 L (0.66-1.25) mg/dL Glucose 137 H (74-99) mg/dL POC Glucose (mg/dL) 113 H (75-99) mg/dL Calcium 8.1 L (8.4-10.2) mg/dL 11/27/21 11/27/21 11/27/21 Range/Units 04:03 05:47 06:20 RBC (4.30-5.90) m/uL Hgb (13.0-17.5) gm/dL Hct (39.0-53.0) % MCV (80.0-100.0) fL ABG pH 7.52 H (7.35-7.45) ABG pCO2 51 H (35-45) mmHg ABG pO2 109 H (83-108) mmHg ABG HCO3 41 H* (21-25) mmol/L ABG Total CO2 42 H (19-24) mmol/L ABG O2 Saturation 99.2 H (94-97) % Potassium (3.5-5.1) mmol/L Carbon Dioxide (22-30) mmol/L BUN (9-20) mg/dL Creatinine (0.66-1.25) mg/dL Glucose (74-99) mg/dL POC Glucose (mg/dL) 136 H 155 H (75-99) mg/dL Calcium (8.4-10.2) mg/dL Assessment and Plan Assessment: -Acute severe COVID 19 pneumonitis in a patient who did not take the COVID-19 vaccine: Slow to respond Dexamethasone, vitamin C, vitamin D, zinc. outside the window for Remdesivir. -Acute hypoxic respiratory failure from COVID-19: Slow to respond intubated October 30. FiO2 45/8 -Metabolic alkalosis, likely from volume contraction from IV Lasix IV Lasix discontinued -Active bleeding around tracheostomy into the trachea and lungs. Status post bronchoscopy. Evacuation of large amounts of blood clot. Tracheostomy removed. Patient reintubated. revision tracheostomy tube - November 19. Lovenox was resumed. November 22: At the tracheostomy site: re- bleeding with blood clots followed by bronchoscopy. Revision of tracheostomy done. -Bilateral pulmonary embolism secondary to COVID-19 Eliquis -discontinued because of bleeding. No [place] filter per vascular. Lovenox resumed after revision tracheostomy. Lovenox discontinued, because of bleeding: November 22. [place] filter placed by Dr. Boothe on November 23 -Essential hypertension: Labile. Likely anxiety component withdrawal component from medications Lopressor 50 mg twice a day, amlodipine 10 mg a day. Cozaar 100 mg daily at bedtime -Diabetes mellitus type 2, on oral hypoglycemic, uncontrolled with hyperglycemia Increase Levemir 32 units daily at bedtime. Follow Accu-Cheks -Chronic insomnia for medical conditions Elavil 50 mg daily at bedtime -Hyperlipidemia TriCor 48 mg daily -Hypoalbuminemia Acute phase reactant -Pneumonia with cultures positive for MSSA and Bibi IV Ancef and IVEraxis -Obstructive sleep apnea On CPAP at home -Pneumomediastinum and subcutis emphysema complications of COVID-19/pneumonia. - right upper apical pneumothorax less than 5%. -Diabetic peripheral neuropathy Lyrica 200 mg twice daily -Full code
[2021-11-27 18:32] LABS: Glucose,Whole Blood 187 mg/dL (75-99)
[2021-11-27] MEDS: LOSARTAN 50 MG TAB PO SCH (20:00)
[2021-11-27] MEDS: INSULIN DETEMIR (LEVEMIR) 100 UNIT/ML SYR SQ SCH (20:43)
[2021-11-27 20:44] LABS: Glucose,Whole Blood 142 mg/dL (75-99)
[2021-11-27 23:51] LABS: Glucose,Whole Blood 130 mg/dL (75-99)
[2021-11-28] MEDS ORDERED: ARTIFICIAL TEARS-HYPROMELLOSE DROPS 15 ML BTL BOTH EYES PRN (02:29)
[2021-11-28] MEDS: ARTIFICIAL TEARS-HYPROMELLOSE DROPS 15 ML BTL BOTH EYES SCH (02:29)
[2021-11-28] MEDS: ENALAPRILAT 1.25 MG/ML 1 ML VIAL IVP PRN ×2 (04:30→17:43)
[2021-11-28] MEDS: hydrALAZINE HCL 20 MG/ML 1 ML VIAL IVP PRN ×2 (05:23→18:26)
[2021-11-28 05:28] LABS: Glucose,Whole Blood 137 mg/dL (75-99)
[2021-11-28] MEDS: PANTOPRAZOLE 40 MG TABLET PO SCH (05:38)
[2021-11-28] MEDS: INSULIN ASPART (NovoLOG) 100 UNIT/ML VIAL SQ SCH ×4 (05:38→23:49)
[2021-11-28] MEDS: HYDROmorphone 1 MG/ML 1 ML SYRINGE IVP PRN ×2 (05:41→16:09)
[2021-11-28] MEDS: DEXMEDETOMIDINE/0.9% NACL(PMX) 400 MCG in EMPTY BAG 1 BAG IV SCH ×2 (06:02→21:42)
[2021-11-28 06:20] LABS: ABG Base Excess 12.5 mmol/L; ABG HCO3 36 mmol/L (21-25); ABG Oxygen Saturation 95.8 % (94-97); ABG PCO2 46 mmHg (35-45); ABG PO2 73 mmHg (83-108); ABG TCO2 37 mmol/L (19-24); Allen Test Performed? Yes
[2021-11-28] MEDS ORDERED: HALOPERIDOL LACTATE 5 MG/ML 1 ML VIAL ONE (06:41)
[2021-11-28] MEDS ORDERED: HALOPERIDOL LACTATE 5 MG/ML 1 ML VIAL IVP ONE (06:45)
[2021-11-28 08:42] LABS: HCT 29.5 % (39.0-53.0); HGB 9.3 gm/dL (13.0-17.5); Hypochromasia Marked; MCH 32.9 pg (25.0-35.0); MCHC 31.6 g/dL (31.0-37.0); MCV 104.3 fL (80.0-100.0); Macrocytosis Moderate; Mean Platelet Volume 8.4; Platelet Count 261 k/uL (150-450); RBC 2.83 m/uL (4.30-5.90); RDW 15.2 % (11.5-15.5); WBC 7.7 k/uL (3.8-10.6)
[2021-11-28 08:49] LABS: ALT 35 U/L (4-49); AST 33 U/L (17-59); African American GFR (CKD) >90 (>60 ml/min/1.73 sqM); Albumin 2.9 g/dL (3.5-5.0); Alkaline Phosphatase 67 U/L (38-126); Anion Gap 1 mmol/L; Blood Urea Nitrogen 21 mg/dL (9-20); Calcium 8.5 mg/dL (8.4-10.2); Carbon Dioxide 34 mmol/L (22-30); Chloride 107 mmol/L (98-107); Glucose 184 mg/dL (74-99); Non-African American GFR(CKD) >90 (>60 ml/min/1.73 sqM); Potassium 3.6 mmol/L (3.5-5.1); Sodium 142 mmol/L (137-145); Total Protein 5.7 g/dL (6.3-8.2)
[2021-11-28] MEDS: ALBUTEROL HFA INHALER INHALATION PRN ×2 (09:20→12:03)
[2021-11-28] MEDS: LACTULOSE 20 GM/30 ML CUP PO SCH ×2 (09:52→19:47)
[2021-11-28] MEDS: bisacodyL 10 MG SUPP RECTAL SCH ×2 (09:52→19:47)
[2021-11-28] MEDS: ASCORBIC ACID 500 MG TAB PO SCH (09:57)
[2021-11-28] MEDS: PREGABALIN 100 MG CAP PO SCH ×2 (09:57→20:53)
[2021-11-28] MEDS: CHLORHEXIDINE GLUCONATE 15 ML CUP MUCOUS MEM SCH ×2 (09:57→20:53)
[2021-11-28] MEDS: SERTRALINE 50 MG TAB PO SCH (09:57)
[2021-11-28] MEDS: DEXAMETHASONE SOD PHOSPHATE 4 MG/ML 1 ML VIAL IVP SCH (09:57)
[2021-11-28] MEDS: CHOLECALCIFEROL 25 MCG (1000 IU) TABLET PO SCH (09:57)
[2021-11-28] MEDS: ZINC SULFATE 220 MG CAP PO SCH (09:57)
[2021-11-28] MEDS: QUEtiapine 50 MG TAB PO SCH ×2 (09:57→20:53)
--- NOTE | 2021-11-28 10:49 | XR ---
EXAMINATION TYPE: XR chest 1V portable DATE OF EXAM: 11/28/2021 COMPARISON: 11/26/2021 HISTORY: Covid pneumonia TECHNIQUE: Single frontal view of the chest is obtained. FINDINGS: There is been no interval change is interstitial and small airspace opacities. There is no pneumothorax or large pleural effusion. Heart size is normal. The osseous structures are intact. There are surgical clips in the right neck soft tissues. IMPRESSION: Diffuse acute cardiopulmonary disease with no interval change.
--- NOTE | 2021-11-28 11:47 | P.PN ---
Subjective Progress Note Date: 11/28/21 Principal diagnosis: The patient is seen today 11/27/2021 in follow-up in the intensive care unit. He has been here for 35 days secondary to COVID-19 pneumonia with acute hypoxemi c respiratory failure. He has since been trached and had a PEG tube placed. He is still on the mechanical ventilator. Currently on assist-control mode at a rate of 24, tidal volume 350, FiO2 40% and a PEEP of 8. Morning blood gases reveal a P O2 of 109, pCO2 51, pH 7.52. He remains on Precedex at 0.4 mcg/kg per hour. 0.9 normal saline at KVO. He is being nourished with vital HPV at 57 ML's per hour which is goal. He said sputum culture positive for Bibi and MSSA. He remains on antibiotics in the form of Ancef and Eraxis. He also remains on Decadron, vitamin supplements. He has had a very labile blood pressure. White count 7.6. Hemoglobin 8.4. Sodium 143. Potassium 43.3. Bi carb 40. BUN 22. Creatinine 0.40. Glucose 137. He remains on Levemir insulin. The patient is seen today 11/28/2021 in follow-up in the intensive care unit. He remains on the mechanical ventilator via tracheostomy tube. Current settings assist-control mode with a rate of 124, tidal been 350, FiO2 40% and a PEEP of 8. Morning blood gases reveal a P O2 of 73, pCO2 46, pH 7.50. He remains off sedation. He has normal saline at KVO. He is being nourished with vital HPV at 47 ML's per hour which is his goal. Yesterday he was on pressure support and CPAP for approximately 11 hours. He did well. We'll plan for the same today. He is continued on Ancef and Eraxis. Sputum culture was positive for Bibi and MSSA. Chest x-ray continues to revealed diffuse acute cardiopulmonary disease with no interval change. Currently in a -2.1 L balance. White count 7.7. Hemoglobin 9.3. Sodium 142. Potassium 3.6. Creatinine 0.38. AST 33. ALT 35. He remains on Decadron vitamin supplements. No anticoagulants. IVC filter had been placed. No bleeding around the trach site. Objective - Vital Signs Vital signs: Vital Signs Temp 98.4 F 01/29/22 08:00 Pulse 62 11/28/21 11:00 Resp 19 11/28/21 11:00 BP 105/58 11/28/21 11:00 Pulse Ox 98 11/28/21 11:00 Intake & Output 11/27/21 11/28/21 11/28/21 18:59 06:59 18:59 Intake Total 1229.979 983.890 378.908 Output Total 990 660 370 Balance 239.979 323.890 8.908 Weight 122.3 kg 122.243 kg Intake: IV 276 276 92 0.9 Normal Saline @ 20 mL 240 240 80 /hr KVO Pressure bag 36 36 12 Intake, IV Titration 69.979 53.890 68.908 Amount Clevidipine Butyrate 25 38 mg In Empty Bag 1 bag @ 1 MG/HR 2 mls/hr IV .Q24H [facility] Rx#:[id number] Dexmedetomidine/0.9% NaCl 69.979 15.890 68.908 (Pmx) 400 mcg In Empty Bag 1 bag @ 0.2 MCG/KG/HR 6.42 mls/hr IV .[id number] [facility] Rx#:[id number] Tube Feeding 644 564 188 Other 240 90 30 Output: Urine 990 660 370 Other: Voiding Method Indwelling Catheter Indwelling Catheter Indwelling Catheter ABP, PAP, CO, CI - Last Documented Arterial Blood Pressure 118/45 - Exam GENERAL EXAM: 61-year-old male patient, with a tracheostomy and on the mechanical ventilator with FiO2 of 40% and a PEEP of 8. HEAD: Normocephalic. EYES: Sluggish reaction of pupils, equal size. NOSE: Clear with pink turbinates. THROAT: No erythema or exudates. NECK: Tracheostomy tube secured in place. No masses, no JVD. CHEST: No chest wall deformity. LUNGS: Equal air entry with coarse crackles in the posterior bases. CVS: S1 and S2 normal with no audible murmur, regular rhythm. ABDOMEN: PEG tube exit site clean and dry. No hepatosplenomegaly, normal bowel sounds, no guarding or rigidity. SPINE: No scoliosis or deformity SKIN: No rashes CENTRAL NERVOUS SYSTEM: Sedated, tone is normal in all 4 extremities. EXTREMITIES: There is 1+ peripheral edema. No clubbing, no cyanosis. Peripheral pulses are intact. - Labs CBC & Chem 7: 11/28/21 07:53 11/28/21 07:53 Labs: Abnormal Lab Results - Last 24 Hours (Table) 11/27/21 11/27/21 11/27/21 Range/Units 11:55 18:30 20:42 RBC (4.30-5.90) m/uL Hgb (13.0-17.5) gm/dL Hct (39.0-53.0) % MCV (80.0-100.0) fL ABG pH (7.35-7.45) ABG pCO2 (35-45) mmHg ABG pO2 (83-108) mmHg ABG HCO3 (21-25) mmol/L ABG Total CO2 (19-24) mmol/L Carbon Dioxide (22-30) mmol/L BUN (9-20) mg/dL Creatinine (0.66-1.25) mg/dL Glucose (74-99) mg/dL POC Glucose (mg/dL) 192 H 187 H 142 H (75-99) mg/dL Total Protein (6.3-8.2) g/dL Albumin (3.5-5.0) g/dL 11/27/21 11/28/21 11/28/21 Range/Units 23:50 05:27 06:15 RBC (4.30-5.90) m/uL Hgb (13.0-17.5) gm/dL Hct (39.0-53.0) % MCV (80.0-100.0) fL ABG pH 7.50 H (7.35-7.45) ABG pCO2 46 H (35-45) mmHg ABG pO2 73 L (83-108) mmHg ABG HCO3 36 H (21-25) mmol/L ABG Total CO2 37 H (19-24) mmol/L Carbon Dioxide (22-30) mmol/L BUN (9-20) mg/dL Creatinine (0.66-1.25) mg/dL Glucose (74-99) mg/dL POC Glucose (mg/dL) 130 H 137 H (75-99) mg/dL Total Protein (6.3-8.2) g/dL Albumin (3.5-5.0) g/dL 11/28/21 11/28/21 Range/Units 07:53 07:53 RBC 2.83 L (4.30-5.90) m/uL Hgb 9.3 L (13.0-17.5) gm/dL Hct 29.5 L (39.0-53.0) % MCV 104.3 H (80.0-100.0) fL ABG pH (7.35-7.45) ABG pCO2 (35-45) mmHg ABG pO2 (83-108) mmHg ABG HCO3 (21-25) mmol/L ABG Total CO2 (19-24) mmol/L Carbon Dioxide 34 H (22-30) mmol/L BUN 21 H (9-20) mg/dL Creatinine 0.38 L (0.66-1.25) mg/dL Glucose 184 H (74-99) mg/dL POC Glucose (mg/dL) (75-99) mg/dL Total Protein 5.7 L (6.3-8.2) g/dL Albumin 2.9 L (3.5-5.0) g/dL Assessment and Plan Assessment: 1 Acute hypoxic respiratory failure related to acute COVID-19 related pneumonia, patient presented to the emergency department on 10/23/2021 with 2 week history of symptoms, patient is outside the window for Remdesivir, he is a non-vaccinated adult. Patient was started on Baricitinib in view of worsening hypoxic respiratory failure, on 10/29/2021 transferred to the intensive care unit, and intubated on 10/30/2021. He did undergo tracheostomy tube and PEG tube placements on 11/10/2021. Baricitinib has been discontinued in view of positive blood cultures. Blood cultures have shown coagulase-negative staph, 2 organisms, possibly contamination, however his sputum from 10/30/2021 showed group B strep. Patient has been weaned off the paralytics again on 11/24/2021, he is currently on FiO2 of 40%, and PEEP of 8, doing significantly better, he tolerated a pressure support of 10 and CPAP of 8 for 11 hours yesterday 11/27/2021. We'll plan for today as well. 2 Recurrent bleeding from surgical site around tracheostomy, status post revision of tracheostomy site, reintubation, bronchoscopy 2, please refer to the full operative report on this patient from 11/15/2021 and 11/22/2021. Patient was previously on Eliquis which was discontinued, and was then placed on Lovenox 80 mg twice daily for acute pulmonary embolism diagnosed during this admission. Lovenox has been placed on hold, patient had SVC filter placement on 11/23/2021 3 Left lung collapse secondary to mucus plugging and blood clots requiring therapeutic bronchoscopy and lavage of the left lung extraction of the blood clots from the left knee mainstem bronchus left upper lobe bronchus lingula and left lower lobe bronchus and right upper lobe bronchus and right middle lobe bronchus with complete reexpansion of the left lung post procedure this was done on 11/18/2021 4 Pneumomediastinum and subcutaneous emphysema, complication of COVID-19 pneumonia, resolved 5 Tiny right apical pneumothorax, resolved 6 Acute blood loss anemia related to bleeding from the surgical site around tracheostomy, and anticoagulation, currently off anticoagulation, it remains hemodynamically stable 7 Acute pulmonary embolism within the lower lobe, right artery right greater than left, started on Eliquis on 10/26/2021, however patient had 3 episodes of major bleeding including epistaxis, and 2 episodes of bleeding from the surgical wound at the fresh tracheostomy site, and patient is status post SVC filter placement on 11/23/2021 8 Diabetes mellitus type 2 with diabetic neuropathy 9 Hypertension 10 Hyperlipidemia 11 Obstructive sleep apnea with previous history of UPPP 12 History of right eye melanoma with multiple surgeries 13 Previous history of CVA 14 Rheumatoid arthritis 15 History of gout 16 Previous history of MRSA infection in the wound on his back 17 Mild lactic acidosis, improved with IV hydration 18 Elevated inflammatory markers related to acute COVID-19 pneumonia 19 BPH with previous history of TURP Plan: The patient was seen and evaluated Chest x-ray, ABGs and labs reviewed Currently 40% FiO2 and a PEEP of 8 We'll give a spontaneous breathing trial today on pressure support of 10 and CPAP of 8 He did well for approximately 11 hours yesterday Continued on Ancef and Eraxis Wean down Decadron Prognosis remains guarded We'll continue to follow Critical care time 36 minutes I, the cosigning physician, performed a history & physical examination of the patient. Lungs sounds are coarse crackles in the bilateral bases. Maintaining O2 saturations in the 90s on the mechanical ventilator with an FiO2 of 40% and a PEEP of 8. I discussed the assessment and plan of care with my nurse practitioner, Jenna Batres. I attest to the above note as dictated by her.
[2021-11-28] MEDS ORDERED: amLODIPine 10 MG TAB PO SCH (12:00)
[2021-11-28 12:43] LABS: Glucose,Whole Blood 191 mg/dL (75-99)
[2021-11-28] MEDS: METOPROLOL TARTRATE 50 MG TAB PO SCH ×2 (12:43→20:53)
[2021-11-28] MEDS: ANIDULAFUNGIN 100 MG in SODIUM CHLORIDE 0.9% 100 ML IVPB SCH (12:44)
--- NOTE | 2021-11-28 14:13 | P.PN ---
Subjective Progress Note Date: 11/28/21 CHIEF COMPLAINT: Coronavirus pneumonia HISTORY OF PRESENT ILLNESS: The patient is a 61-year-old female status post tracheostomy and gastrostomy placement 11/14/2021 with revision of tracheostomy on 11/22/2021 due to bleeding. Patient is a complicated course including acute pulmonary embolism status post IVC filter as well as collapse of the lung due to mucous plugging status post bronchoscopy. ROS: No fevers or chills. No new chest pain. PHYSICAL EXAM: VITAL SIGNS: Reviewed CONSTITUTIONAL: Well developed and in no acute distress. EYES: Conjuctivae without sclera icterus. Extraocular movements grossly intact. HEAD, EARS, NOSE, THROAT: Moist buccal mucosa. Head is atraumatic, normoceph alic. No nasal drainage. Tracheostomy site intact. RESPIRATORY: Non-labored respirations and equal bilateral excursions. CARDIOVASCULAR: Palpable 2+ radial pulses. ABDOMEN: Gastrostomy tube intact. MUSCULOSKELETAL: No gross deformity of the lower extremities noted. No clubbing. No cyanosis. SKIN: Good skin turgor. Well perfused. NEUROLOGIC: Cranial nerves II through XII grossly intact. No focal or lateralizing signs. PSYCH: Sedated. CLINICAL LABS: Reviewed. WBC normal at 7.7. Hemoglobin low 9.3. ASSESSMENT: 1. Coronavirus pneumonia with complications 2. Status post tracheostomy and gastrostomy PLAN: 1. Supportive care for coronavirus 2. Tube feeds per dietitian Objective - Vital Signs Vital signs: Vital Signs Temp 98.4 F 11/28/21 08:00 Pulse 62 11/28/21 11:00 Resp 19 11/28/21 11:00 BP 105/58 11/28/21 11:00 Pulse Ox 98 11/28/21 11:00 Intake & Output 11/27/21 11/28/21 11/28/21 18:59 06:59 18:59 Intake Total 1229.979 983.890 378.908 Output Total 990 660 370 Balance 239.979 323.890 8.908 Weight 122.3 kg 122.243 kg Intake: IV 276 276 92 0.9 Normal Saline @ 20 mL 240 240 80 /hr KVO Pressure bag 36 36 12 Intake, IV Titration 69.979 53.890 68.908 Amount Clevidipine Butyrate 25 38 mg In Empty Bag 1 bag @ 1 MG/HR 2 mls/hr IV .Q24H [facility] Rx#:[id number] Dexmedetomidine/0.9% NaCl 69.979 15.890 68.908 (Pmx) 400 mcg In Empty Bag 1 bag @ 0.2 MCG/KG/HR 6.42 mls/hr IV .[id number] [facility] Rx#:[id number] Tube Feeding 644 564 188 Other 240 90 30 Output: Urine 990 660 370 Other: Voiding Method Indwelling Catheter Indwelling Catheter Indwelling Catheter ABP, PAP, CO, CI - Last Documented Arterial Blood Pressure 118/45 - Labs CBC & Chem 7: 11/28/21 07:53 11/28/21 07:53 Labs: Abnormal Lab Results - Last 24 Hours (Table) 11/27/21 11/27/21 11/27/21 Range/Units 11:55 18:30 20:42 RBC (4.30-5.90) m/uL Hgb (13.0-17.5) gm/dL Hct (39.0-53.0) % MCV (80.0-100.0) fL ABG pH (7.35-7.45) ABG pCO2 (35-45) mmHg ABG pO2 (83-108) mmHg ABG HCO3 (21-25) mmol/L ABG Total CO2 (19-24) mmol/L Carbon Dioxide (22-30) mmol/L BUN (9-20) mg/dL Creatinine (0.66-1.25) mg/dL Glucose (74-99) mg/dL POC Glucose (mg/dL) 192 H 187 H 142 H (75-99) mg/dL Total Protein (6.3-8.2) g/dL Albumin (3.5-5.0) g/dL 11/27/21 11/28/21 11/28/21 Range/Units 23:50 05:27 06:15 RBC (4.30-5.90) m/uL Hgb (13.0-17.5) gm/dL Hct (39.0-53.0) % MCV (80.0-100.0) fL ABG pH 7.50 H (7.35-7.45) ABG pCO2 46 H (35-45) mmHg ABG pO2 73 L (83-108) mmHg ABG HCO3 36 H (21-25) mmol/L ABG Total CO2 37 H (19-24) mmol/L Carbon Dioxide (22-30) mmol/L BUN (9-20) mg/dL Creatinine (0.66-1.25) mg/dL Glucose (74-99) mg/dL POC Glucose (mg/dL) 130 H 137 H (75-99) mg/dL Total Protein (6.3-8.2) g/dL Albumin (3.5-5.0) g/dL 11/28/21 11/28/21 Range/Units 07:53 07:53 RBC 2.83 L (4.30-5.90) m/uL Hgb 9.3 L (13.0-17.5) gm/dL Hct 29.5 L (39.0-53.0) % MCV 104.3 H (80.0-100.0) fL ABG pH (7.35-7.45) ABG pCO2 (35-45) mmHg ABG pO2 (83-108) mmHg ABG HCO3 (21-25) mmol/L ABG Total CO2 (19-24) mmol/L Carbon Dioxide 34 H (22-30) mmol/L BUN 21 H (9-20) mg/dL Creatinine 0.38 L (0.66-1.25) mg/dL Glucose 184 H (74-99) mg/dL POC Glucose (mg/dL) (75-99) mg/dL Total Protein 5.7 L (6.3-8.2) g/dL Albumin 2.9 L (3.5-5.0) g/dL
[2021-11-28 17:48] LABS: Glucose,Whole Blood 198 mg/dL (75-99)
--- NOTE | 2021-11-28 20:19 | P.PN ---
Subjective This is a pleasant 61-year-old patient, chronic stable medical conditions include diabetes, hypertension, hyperlipidemia, osteoarthritis, peripheral neuropathy, chronic gout. Patient presents with increasing shortness of breath. Cough. Clear sputum. Fever and chills. Tired rundown decrease appetite and diarrhea about 2 times a day. Patient tested positive for COVID-19 on October 09. His initial rapid COVID-19 was negative. In the send out came back positive. Patient did not take the vaccine against COVID-19. He is on 8 L of oxygen this morning. He is outside the window for Remdesivir. Admitted with COVID 19 pneumonitis, acute hypoxic respiratory failure. Started on Decadron. IV fluids. October 26 chest CTA showed bilateral pulmonary embolism. Breathing cord worse in October 30 patient is intubated. Requiring various drips. 2 feeding was started. November 10 patient got a tracheostomy and a PEG tube. Patient subsequently had a large bleed from the tracheostomy site. Desaturated. Tracheostomy had to be removed. Bedside bronchoscopy was done. Large blood loss was removed. Was put back on the ventilator/intubated. Required FFP. November 19 tracheostomy revision done. Lovenox resume. November 22 patient had bleeding a cane around the tracheostomy site. Bedside bronchoscopy was done large amount of blood cause was removed. Tracheostomy was resecured. November [address] [place] filter [address] Boothe. In the ICU patient been on different drips including propofol, fentanyl, Nimbex, cleviprex. November 24: ICU. Ventilator: FiO2 55 PEEP of 10. 2 feeding at 33 mL an hour. Patient off cleviprex. Oral amlodipine, losartan was added. Drips include fentanyl, propofol, Nimbex. Nimbex and being weaned off. November 25: ICU. Because of a rash Zosyn was discontinued. He is on IV Ancef and eraxis. Ventilator: 60/5. Does open eyes. Follows with eyes. On Precedex. Some fluctuation of blood pressure likely from anxiety. Significantly alkalotic with a pH of 7.5 to also bicarb is up to 35. Patient is likely volume contracted and should benefit from discontinuing IV Lasix. November 26: ICU. Ventilator. FiO2 45 PEEP of 8. 2 feeding continues. Patient is off all drips. Blood pressure does fluctuate. Patient is awake. Lasix has been discontinued. Anxiety component present. Seroquel added by pulmonary.. 11/27/2021 Patient remains in the ICU on mechanical ventilation. He is status post tracheostomy and PEG placement on 11/10. He is being covered with vitamin C, D and zinc as well as dexamethasone 4 mg daily. He has some evidence of oropharyngeal candidiasis and superimposed bacterial pneumonia with MSSA and currently covered with cefazolin and Eraxis ID and pulmonary team on the case. He remains on PEEP of 8 and FiO2 of 40% and his family tachypneic. 11/28/2021 Patient remains in the ICU on mechanical ventilation via tracheostomy with pulmonary/critical care team followed closely and help with the vent management. His blood pressure was slightly elevated today with systolic has high as 180- 119. Norvasc 10 mg was added. Also patient undergoing breathing trial with pulmonary team today. Remains on Eraxis and cefazolin Objective - Vital Signs Vital signs: Vital Signs Temp 98.3 F 11/28/21 12:00 Pulse 60 11/28/21 12:00 Resp 18 11/28/21 12:00 BP 111/59 11/28/21 12:00 Pulse Ox 97 11/28/21 12:00 Intake & Output 11/27/21 11/28/21 11/28/21 18:59 06:59 18:59 Intake Total 1229.979 983.890 713.908 Output Total 990 660 570 Balance 239.979 323.890 143.908 Weight 122.3 kg 122.243 kg Intake: IV 276 276 211 0.9 Normal Saline @ 20 mL 240 240 140 /hr KVO Pressure bag 36 36 21 ceFAZolin 2 gm In Sodium 50 Chloride 0.9% 50 ml @ 100 mls/hr IVPB Q8HR [facility] Rx# :[id number] Intake, IV Titration 69.979 53.890 68.908 Amount Clevidipine Butyrate 25 38 mg In Empty Bag 1 bag @ 1 MG/HR 2 mls/hr IV .Q24H [facility] Rx#:[id number] Dexmedetomidine/0.9% NaCl 69.979 15.890 68.908 (Pmx) 400 mcg In Empty Bag 1 bag @ 0.2 MCG/KG/HR 6.42 mls/hr IV .[id number] [facility] Rx#:[id number] Tube Feeding 644 564 329 Other 240 90 105 Output: Urine 990 660 570 Other: Voiding Method Indwelling Catheter Indwelling Catheter Indwelling Catheter ABP, PAP, CO, CI - Last Documented Arterial Blood Pressure 127/50 - Exam -GENERAL: The patient is alert and oriented x3, not in any acute distress. Status post tracheostomy HEENT: Pupils are round and equally reacting to light. EOMI. No scleral icterus. No conjunctival pallor. Normocephalic, atraumatic. No pharyngeal erythema. No thyromegaly. CARDIOVASCULAR: S1 and S2 present. No murmurs, rubs, or gallops. PULMONARY: Chest is clear to auscultation, no wheezing or crackles. -ABDOMEN: Soft, nontender, nondistended, normoactive bowel sounds. No palpable organomegaly. PEG is in place MUSCULOSKELETAL: No joint swelling or deformity. EXTREMITIES: No cyanosis, clubbing, or pedal edema. NEUROLOGICAL: Gross neurological examination did not reveal any focal deficits. SKIN: No rashes. no petechiae. - Labs CBC & Chem 7: 11/28/21 07:53 11/28/21 07:53 Labs: Abnormal Lab Results - Last 24 Hours (Table) 11/27/21 11/27/21 11/27/21 Range/Units 18:30 20:42 23:50 RBC (4.30-5.90) m/uL Hgb (13.0-17.5) gm/dL Hct (39.0-53.0) % MCV (80.0-100.0) fL ABG pH (7.35-7.45) ABG pCO2 (35-45) mmHg ABG pO2 (83-108) mmHg ABG HCO3 (21-25) mmol/L ABG Total CO2 (19-24) mmol/L Carbon Dioxide (22-30) mmol/L BUN (9-20) mg/dL Creatinine (0.66-1.25) mg/dL Glucose (74-99) mg/dL POC Glucose (mg/dL) 187 H 142 H 130 H (75-99) mg/dL Total Protein (6.3-8.2) g/dL Albumin (3.5-5.0) g/dL 11/28/21 11/28/21 11/28/21 Range/Units 05:27 06:15 07:53 RBC 2.83 L (4.30-5.90) m/uL Hgb 9.3 L (13.0-17.5) gm/dL Hct 29.5 L (39.0-53.0) % MCV 104.3 H (80.0-100.0) fL ABG pH 7.50 H (7.35-7.45) ABG pCO2 46 H (35-45) mmHg ABG pO2 73 L (83-108) mmHg ABG HCO3 36 H (21-25) mmol/L ABG Total CO2 37 H (19-24) mmol/L Carbon Dioxide (22-30) mmol/L BUN (9-20) mg/dL Creatinine (0.66-1.25) mg/dL Glucose (74-99) mg/dL POC Glucose (mg/dL) 137 H (75-99) mg/dL Total Protein (6.3-8.2) g/dL Albumin (3.5-5.0) g/dL 11/28/21 11/28/21 Range/Units 07:53 12:42 RBC (4.30-5.90) m/uL Hgb (13.0-17.5) gm/dL Hct (39.0-53.0) % MCV (80.0-100.0) fL ABG pH (7.35-7.45) ABG pCO2 (35-45) mmHg ABG pO2 (83-108) mmHg ABG HCO3 (21-25) mmol/L ABG Total CO2 (19-24) mmol/L Carbon Dioxide 34 H (22-30) mmol/L BUN 21 H (9-20) mg/dL Creatinine 0.38 L (0.66-1.25) mg/dL Glucose 184 H (74-99) mg/dL POC Glucose (mg/dL) 191 H (75-99) mg/dL Total Protein 5.7 L (6.3-8.2) g/dL Albumin 2.9 L (3.5-5.0) g/dL Assessment and Plan Assessment: -Acute severe COVID 19 pneumonitis in a patient who did not take the COVID-19 vaccine: Slow to respond Dexamethasone, vitamin C, vitamin D, zinc. outside the window for Remdesivir. -Acute hypoxic respiratory failure from COVID-19: Slow to respond intubated October 30. FiO2 45/8 -Metabolic alkalosis, likely from volume contraction from IV Lasix IV Lasix discontinued -Active bleeding around tracheostomy into the trachea and lungs. Status post bronchoscopy. Evacuation of large amounts of blood clot. Tracheostomy removed. Patient reintubated. revision tracheostomy tube - November 19. Lovenox was resumed. November 22: At the tracheostomy site: re- bleeding with blood clots followed by bronchoscopy. Revision of tracheostomy done. -Bilateral pulmonary embolism secondary to COVID-19 Eliquis -discontinued because of bleeding. No Lakia filter per vascular. Lovenox resumed after revision tracheostomy. Lovenox discontinued, because of bleeding: November 22. [place] filter placed by Dr. Boothe on November 23 -Essential hypertension: Labile. Likely anxiety component withdrawal component from medications Lopressor 50 mg twice a day, amlodipine 10 mg a day. Cozaar 100 mg daily at bedtime -Diabetes mellitus type 2, on oral hypoglycemic, uncontrolled with hyperglycemia Increase Levemir 32 units daily at bedtime. Follow Accu-Cheks -Chronic insomnia for medical conditions Elavil 50 mg daily at bedtime -Hyperlipidemia TriCor 48 mg daily -Hypoalbuminemia Acute phase reactant -Pneumonia with cultures positive for MSSA and Bibi IV Ancef and IVEraxis -Obstructive sleep apnea On CPAP at home -Pneumomediastinum and subcutis emphysema complications of COVID-19/pneumonia. - right upper apical pneumothorax less than 5%. -Diabetic peripheral neuropathy Lyrica 200 mg twice daily -Full code
[2021-11-28] MEDS: HALOPERIDOL LACTATE 5 MG/ML 1 ML VIAL IVP PRN (20:24)
[2021-11-28] MEDS: INSULIN DETEMIR (LEVEMIR) 100 UNIT/ML SYR SQ SCH (20:53)
[2021-11-28] MEDS: LOSARTAN 50 MG TAB PO SCH (20:53)
[2021-11-28 23:54] LABS: Glucose,Whole Blood 142 mg/dL (75-99)
[2021-11-29] MEDS ORDERED: POTASSIUM BICARBONATE/CIT AC 20 MEQ TABLET.EFF NG-TUBE SCH
[2021-11-29] MEDS: DEXMEDETOMIDINE/0.9% NACL(PMX) 400 MCG in EMPTY BAG 1 BAG IV SCH (04:37)
[2021-11-29] MEDS: HALOPERIDOL LACTATE 5 MG/ML 1 ML VIAL IVP PRN ×3 (04:51→17:39)
[2021-11-29 04:53] LABS: Basophils # (A) 0.1 k/uL (0-0.2); Basophils % (A) 1 %; Eosinophils # (A) 0.2 k/uL (0-0.7); Eosinophils % (A) 2 %; HGB 9.5 gm/dL (13.0-17.5); Hypochromasia Marked; Lymphocytes # (A) 2.1 k/uL (1.0-4.8); Lymphocytes % (A) 26 %; MCHC 31.8 g/dL (31.0-37.0); MCV 103.7 fL (80.0-100.0); Macrocytosis Moderate; Mean Platelet Volume 8.2; Monocytes # (A) 0.5 k/uL (0-1.0); Monocytes % (A) 6 %; Neutrophils # (A) 5.2 k/uL (1.3-7.7); Neutrophils % (A) 64 %; Platelet Count 269 k/uL (150-450); RBC 2.89 m/uL (4.30-5.90); RDW 15.1 % (11.5-15.5); WBC 8.2 k/uL (3.8-10.6)
[2021-11-29 05:20] LABS: ALT 33 U/L (4-49); AST 27 U/L (17-59); African American GFR (CKD) >90 (>60 ml/min/1.73 sqM); Alkaline Phosphatase 67 U/L (38-126); Anion Gap 2 mmol/L; Blood Urea Nitrogen 22 mg/dL (9-20); Calcium 8.9 mg/dL (8.4-10.2); Carbon Dioxide 31 mmol/L (22-30); Chloride 108 mmol/L (98-107); Glucose 156 mg/dL (74-99); Non-African American GFR(CKD) >90 (>60 ml/min/1.73 sqM); Sodium 141 mmol/L (137-145); Total Protein 5.9 g/dL (6.3-8.2)
[2021-11-29 05:27] LABS: Glucose,Whole Blood 151 mg/dL (75-99)
[2021-11-29 05:57] LABS: ABG Base Excess 9.8 mmol/L; ABG HCO3 33 mmol/L (21-25); ABG PCO2 44 mmHg (35-45); ABG PH 7.49 (7.35-7.45); ABG PO2 135 mmHg (83-108); ABG TCO2 35 mmol/L (19-24)
[2021-11-29 05:59] LABS: Allen Test Performed? no
[2021-11-29] MEDS: INSULIN ASPART (NovoLOG) 100 UNIT/ML VIAL SQ SCH ×4 (06:38→23:30)
[2021-11-29] MEDS: PANTOPRAZOLE 40 MG TABLET PO SCH (06:38)
[2021-11-29] MEDS: ALBUTEROL HFA INHALER INHALATION PRN ×4 (07:55→20:43)
[2021-11-29] MEDS: PREGABALIN 100 MG CAP PO SCH ×2 (09:37→20:14)
[2021-11-29] MEDS: CHOLECALCIFEROL 25 MCG (1000 IU) TABLET PO SCH (09:37)
[2021-11-29] MEDS: ZINC SULFATE 220 MG CAP PO SCH (09:37)
[2021-11-29] MEDS: ASCORBIC ACID 500 MG TAB PO SCH (09:37)
[2021-11-29] MEDS: QUEtiapine 50 MG TAB PO SCH ×2 (09:37→20:14)
[2021-11-29] MEDS: METOPROLOL TARTRATE 50 MG TAB PO SCH ×3 (09:37→20:14)
[2021-11-29] MEDS: SERTRALINE 50 MG TAB PO SCH (09:37)
[2021-11-29] MEDS: DEXAMETHASONE SOD PHOSPHATE 4 MG/ML 1 ML VIAL IVP SCH (09:37)
[2021-11-29] MEDS: bisacodyL 10 MG SUPP RECTAL SCH ×2 (09:38→19:18)
[2021-11-29] MEDS: LACTULOSE 20 GM/30 ML CUP PO SCH ×2 (09:38→19:19)
[2021-11-29 11:33] LABS: Glucose,Whole Blood 148 mg/dL (75-99)
[2021-11-29] MEDS: amLODIPine 10 MG TAB PO SCH (11:40)
[2021-11-29] MEDS: ANIDULAFUNGIN 100 MG in SODIUM CHLORIDE 0.9% 100 ML IVPB SCH (12:33)
[2021-11-29] MEDS: HYDROmorphone 1 MG/ML 1 ML SYRINGE IVP PRN ×3 (12:34→17:51)
--- NOTE | 2021-11-29 13:00 | P.PN ---
Subjective Progress Note Date: 11/29/21 Principal diagnosis: The patient is seen today 11/27/2021 in follow-up in the intensive care unit. He has been here for 35 days secondary to COVID-19 pneumonia with acute hypoxemi c respiratory failure. He has since been trached and had a PEG tube placed. He is still on the mechanical ventilator. Currently on assist-control mode at a rate of 24, tidal volume 350, FiO2 40% and a PEEP of 8. Morning blood gases reveal a P O2 of 109, pCO2 51, pH 7.52. He remains on Precedex at 0.4 mcg/kg per hour. 0.9 normal saline at KVO. He is being nourished with vital HPV at 57 ML's per hour which is goal. He said sputum culture positive for Bibi and MSSA. He remains on antibiotics in the form of Ancef and Eraxis. He also remains on Decadron, vitamin supplements. He has had a very labile blood pressure. White count 7.6. Hemoglobin 8.4. Sodium 143. Potassium 43.3. Bi carb 40. BUN 22. Creatinine 0.40. Glucose 137. He remains on Levemir insulin. The patient is seen today 11/28/2021 in follow-up in the intensive care unit. He remains on the mechanical ventilator via tracheostomy tube. Current settings assist-control mode with a rate of 124, tidal been 350, FiO2 40% and a PEEP of 8. Morning blood gases reveal a P O2 of 73, pCO2 46, pH 7.50. He remains off sedation. He has normal saline at KVO. He is being nourished with vital HPV at 47 ML's per hour which is his goal. Yesterday he was on pressure support and CPAP for approximately 11 hours. He did well. We'll plan for the same today. He is continued on Ancef and Eraxis. Sputum culture was positive for Bibi and MSSA. Chest x-ray continues to revealed diffuse acute cardiopulmonary disease with no interval change. Currently in a -2.1 L balance. White count 7.7. Hemoglobin 9.3. Sodium 142. Potassium 3.6. Creatinine 0.38. AST 33. ALT 35. He remains on Decadron vitamin supplements. No anticoagulants. IVC filter had been placed. No bleeding around the trach site. The patient is seen today 11/29/2021 in follow-up in the intensive care unit. He remains on mechanical ventilator currently on assist-control mode at a rate of 24, tidal volume 350, FiO2 40% and a PEEP of 8. Morning blood gases reveal a pO2 of 135, pCO2 44, pH 7.49. He has 0.9 normal saline at KVO. He is being nourished with vital HPV at 47 ML's per hour which is goal. Yesterday he tolerated pressure support of 10 and the CPAP of 8 for approximately 10 hours. He is still having ongoing issues with a very labile blood pressure. At times he does get restless and agitated and quite hypertensive. A few hours later he is hypotensive and bradycardic. White count 8.2. Hemoglobin 9.5. Sodium 141. Potassium 4.0. Bicarb 31. Creatinine 0.44. Glucose 156. He is continued on Decadron, vitamin supplements. Multiple blood pressure medications and given as needed. He's on antibiotics in the form of cefazolin. Objective - Vital Signs Vital signs: Vital Signs Temp 98.4 F 11/29/21 12:00 Pulse 69 11/29/21 12:00 Resp 25 H 11/29/21 12:00 BP 157/86 11/28/21 17:00 Pulse Ox 100 11/29/21 12:00 Intake & Output 11/28/21 11/29/21 11/29/21 18:59 06:59 18:59 Intake Total 7311.299 3327.000 415.056 Output Total 990 655 240 Balance 103.908 375.000 175.056 Weight 122.4 kg Intake: IV 326 276 115 0.9 Normal Saline @ 20 mL 240 240 100 /hr KVO Pressure bag 36 36 15 ceFAZolin 2 gm In Sodium 50 Chloride 0.9% 50 ml @ 100 mls/hr IVPB Q8HR [facility] Rx# :[id number] Intake, IV Titration 68.908 100.000 65.056 Amount Dexmedetomidine/0.9% NaCl 68.908 100.000 65.056 (Pmx) 400 mcg In Empty Bag 1 bag @ 0.2 MCG/KG/HR 6.42 mls/hr IV .[id number] [facility] Rx#:[id number] Tube Feeding 564 564 235 Other 135 90 Output: Urine 990 655 240 Other: Voiding Method Indwelling Catheter Indwelling Catheter Indwelling Catheter ABP, PAP, CO, CI - Last Documented Arterial Blood Pressure 179/65 - Exam GENERAL EXAM: 61-year-old male patient, with a tracheostomy and on the mechanical ventilator with FiO2 of 40% and a PEEP of 8. HEAD: Normocephalic. EYES: Sluggish reaction of pupils, equal size. NOSE: Clear with pink turbinates. THROAT: No erythema or exudates. NECK: Tracheostomy tube secured in place. No masses, no JVD. CHEST: No chest wall deformity. LUNGS: Equal air entry with coarse crackles in the posterior bases. CVS: S1 and S2 normal with no audible murmur, regular rhythm. ABDOMEN: PEG tube exit site clean and dry. No hepatosplenomegaly, normal bowel sounds, no guarding or rigidity. SPINE: No scoliosis or deformity SKIN: No rashes CENTRAL NERVOUS SYSTEM: Sedated, tone is normal in all 4 extremities. EXTREMITIES: There is 1+ peripheral edema. No clubbing, no cyanosis. Peripheral pulses are intact. - Labs CBC & Chem 7: 11/29/21 04:15 11/29/21 04:15 Labs: Abnormal Lab Results - Last 24 Hours (Table) 11/28/21 11/28/21 11/29/21 Range/Units 17:46 23:42 04:15 RBC 2.89 L (4.30-5.90) m/uL Hgb 9.5 L (13.0-17.5) gm/dL Hct 30.0 L (39.0-53.0) % MCV 103.7 H (80.0-100.0) fL ABG pH (7.35-7.45) ABG pO2 (83-108) mmHg ABG HCO3 (21-25) mmol/L ABG Total CO2 (19-24) mmol/L ABG O2 Saturation (94-97) % Chloride (98-107) mmol/L Carbon Dioxide (22-30) mmol/L BUN (9-20) mg/dL Creatinine (0.66-1.25) mg/dL Glucose (74-99) mg/dL POC Glucose (mg/dL) 198 H 142 H (75-99) mg/dL Total Protein (6.3-8.2) g/dL Albumin (3.5-5.0) g/dL 11/29/21 11/29/21 11/29/21 Range/Units 04:15 05:25 05:53 RBC (4.30-5.90) m/uL Hgb (13.0-17.5) gm/dL Hct (39.0-53.0) % MCV (80.0-100.0) fL ABG pH 7.49 H (7.35-7.45) ABG pO2 135 H (83-108) mmHg ABG HCO3 33 H (21-25) mmol/L ABG Total CO2 35 H (19-24) mmol/L ABG O2 Saturation 100.0 H (94-97) % Chloride 108 H (98-107) mmol/L Carbon Dioxide 31 H (22-30) mmol/L BUN 22 H (9-20) mg/dL Creatinine 0.44 L (0.66-1.25) mg/dL Glucose 156 H (74-99) mg/dL POC Glucose (mg/dL) 151 H (75-99) mg/dL Total Protein 5.9 L (6.3-8.2) g/dL Albumin 3.0 L (3.5-5.0) g/dL 11/29/21 Range/Units 11:31 RBC (4.30-5.90) m/uL Hgb (13.0-17.5) gm/dL Hct (39.0-53.0) % MCV (80.0-100.0) fL ABG pH (7.35-7.45) ABG pO2 (83-108) mmHg ABG HCO3 (21-25) mmol/L ABG Total CO2 (19-24) mmol/L ABG O2 Saturation (94-97) % Chloride (98-107) mmol/L Carbon Dioxide (22-30) mmol/L BUN (9-20) mg/dL Creatinine (0.66-1.25) mg/dL Glucose (74-99) mg/dL POC Glucose (mg/dL) 148 H (75-99) mg/dL Total Protein (6.3-8.2) g/dL Albumin (3.5-5.0) g/dL Assessment and Plan Assessment: 1 Acute hypoxic respiratory failure related to acute COVID-19 related pneumonia, patient presented to the emergency department on 10/23/2021 with 2 week history of symptoms, patient is outside the window for Remdesivir, he is a non-vaccinated adult. Patient was started on Baricitinib in view of worsening hypoxic respiratory failure, on 10/29/2021 transferred to the intensive care unit, and intubated on 10/30/2021. He did undergo tracheostomy tube and PEG tube placements on 11/10/2021. Baricitinib has been discontinued in view of positive blood cultures. Blood cultures have shown coagulase-negative staph, 2 organisms, possibly contamination, however his sputum from 10/30/2021 showed group B strep. Patient has been weaned off the paralytics again on 11/24/2021, he is currently on FiO2 of 40%, and PEEP of 8, doing significantly better, he tolerated a pressure support of 10 and CPAP of 8 for 10 hours yesterday 11/28/2021. We'll plan for possible trach collar today. 2 Recurrent bleeding from surgical site around tracheostomy, status post revision of tracheostomy site, reintubation, bronchoscopy 2, please refer to the full operative report on this patient from 11/15/2021 and 11/22/2021. Patient was previously on Eliquis which was discontinued, and was then placed on Lovenox 80 mg twice daily for acute pulmonary embolism diagnosed during this admission. Lovenox has been placed on hold, patient had SVC filter placement on 11/23/2021 3 Left lung collapse secondary to mucus plugging and blood clots requiring therapeutic bronchoscopy and lavage of the left lung extraction of the blood clots from the left knee mainstem bronchus left upper lobe bronchus lingula and left lower lobe bronchus and right upper lobe bronchus and right middle lobe bronchus with complete reexpansion of the left lung post procedure this was done on 11/18/2021 4 Pneumomediastinum and subcutaneous emphysema, complication of COVID-19 pneumonia, resolved 5 Tiny right apical pneumothorax, resolved 6 Acute blood loss anemia related to bleeding from the surgical site around tracheostomy, and anticoagulation, currently off anticoagulation, it remains hemodynamically stable 7 Acute pulmonary embolism within the lower lobe, right artery right greater than left, started on Eliquis on 10/26/2021, however patient had 3 episodes of major bleeding including epistaxis, and 2 episodes of bleeding from the surgical wound at the fresh tracheostomy site, and patient is status post SVC filter placement on 11/23/2021 8 Diabetes mellitus type 2 with diabetic neuropathy 9 Hypertension 10 Hyperlipidemia 11 Obstructive sleep apnea with previous history of UPPP 12 History of right eye melanoma with multiple surgeries 13 Previous history of CVA 14 Rheumatoid arthritis 15 History of gout 16 Previous history of MRSA infection in the wound on his back 17 Mild lactic acidosis, improved with IV hydration 18 Elevated inflammatory markers related to acute COVID-19 pneumonia 19 BPH with previous history of TURP Plan: The patient was seen and evaluated ABGs and labs reviewed Currently 40% FiO2 and a PEEP of 8 He tolerated spontaneous breathing trials very well the last 2 days We will trial trach collar today Add Haldol 4-8 mg every 4 hours as needed Continued on Ancef and Eraxis Prognosis remains guarded We'll continue to follow Critical care time 35 minutes I, the cosigning physician, performed a history & physical examination of the patient. Lungs sounds are coarse crackles in the bilateral bases. Maintaining O 2 saturations in the 90s on the mechanical ventilator with an FiO2 of 40% and a PEEP of 8. I discussed the assessment and plan of care with my nurse practitioner, Jenna Batres. I attest to the above note as dictated by her.
--- NOTE | 2021-11-29 14:22 | P.PN ---
Progress Note - Text Progress Note Date: 11/29/21 A psychiatric consult was entered for this 61 year old patient for agitation. Patient is in ICU and on mechanical ventilation via tracheostomy tube. Psychiatric consult is not feasible at this time because of limitations with communication. He is taking PRN Haldol and also takes Zoloft 50 mg daily and Seroquel 50 mg BID and Lyrica 200 mg BID. I did meet with the patient in his room and he is not able to communicate verbally or by writing something on the paper. His sister was present in the room and provided part of the information. I reviewed his medical records. She stated that the he does have a history of depression and anxiety even before the infection with COVID-19. She told me that that he is scared and sometimes starts shaking. I was also told that he is not sleeping well. She stated that the most of the acute decompensation in his mental status is not knowing where he is. He is already taking the Haldol on a when necessary basis. He is also on Seroquel 50 mg 2 times a day and Zoloft 50 mg daily. He also takes a pretty got Lyrica 200 mg twice a day. I will start him on a small dose of Ativan on a as-needed basis. Psychiatry may be reconsulted if symptoms do not improve. Impression: Anxiety disorder NOS Management: I will try small doses of Ativan on a when necessary basis.
--- NOTE | 2021-11-29 14:57 | P.PN ---
Subjective Progress Note Date: 11/29/21 CHIEF COMPLAINT: Coronavirus pneumonia HISTORY OF PRESENT ILLNESS: The patient is a 61-year-old female status post tracheostomy and gastrostomy placement 11/14/2021 with revision of tracheostomy on 11/22/2021 due to bleeding. Patient is a complicated course including acute pulmonary embolism status post IVC filter as well as collapse of the lung due to mucous plugging status post bronchoscopy. Family is at bedside. Patient sitting up. ROS: No fevers or chills. No new chest pain. PHYSICAL EXAM: VITAL SIGNS: Reviewed CONSTITUTIONAL: Well developed and in no acute distress. EYES: Conjuctivae without sclera icterus. Extraocular movements grossly intact. HEAD, EARS, NOSE, THROAT: Moist buccal mucosa. Head is atraumatic, normocephalic. No nasal drainage. Tracheostomy site intact. RESPIRATORY: Non-labored respirations and equal bilateral excursions. CARDIOVASCULAR: Palpable 2+ radial pulses. ABDOMEN: Gastrostomy tube intact. MUSCULOSKELETAL: No gross deformity of the lower extremities noted. No clubbing. No cyanosis. SKIN: Good skin turgor. Well perfused. NEUROLOGIC: Cranial nerves II through XII grossly intact. No focal or lateralizing signs. PSYCH: Awakes. CLINICAL LABS: Reviewed. WBC normal ASSESSMENT: 1. Coronavirus pneumonia with complications 2. Status post tracheostomy and gastrostomy PLAN: 1. Continue supportive care for coronavirus pneumonia Objective - Vital Signs Vital signs: Vital Signs Temp 98.4 F 11/29/21 12:00 Pulse 64 11/29/21 14:00 Resp 25 H 11/29/21 14:00 BP 157/86 11/28/21 17:00 Pulse Ox 100 11/29/21 14:00 Intake & Output 11/28/21 11/29/21 11/29/21 18:59 06:59 18:59 Intake Total 4065.486 9999.000 655.056 Output Total 990 655 470 Balance 103.908 375.000 185.056 Weight 122.4 kg Intake: IV 326 276 184 0.9 Normal Saline @ 20 mL 240 240 160 /hr KVO Pressure bag 36 36 24 ceFAZolin 2 gm In Sodium 50 Chloride 0.9% 50 ml @ 100 mls/hr IVPB Q8HR [facility] Rx# :[id number] Intake, IV Titration 68.908 100.000 65.056 Amount Dexmedetomidine/0.9% NaCl 68.908 100.000 65.056 (Pmx) 400 mcg In Empty Bag 1 bag @ 0.2 MCG/KG/HR 6.42 mls/hr IV .[id number] [facility] Rx#:[id number] Tube Feeding 564 564 376 Other 135 90 30 Output: Urine 990 655 470 Other: Voiding Method Indwelling Catheter Indwelling Catheter Indwelling Catheter ABP, PAP, CO, CI - Last Documented Arterial Blood Pressure 175/64 - Labs CBC & Chem 7: 11/29/21 04:15 11/29/21 04:15 Labs: Abnormal Lab Results - Last 24 Hours (Table) 11/28/21 11/28/21 11/29/21 Range/Units 17:46 23:42 04:15 RBC 2.89 L (4.30-5.90) m/uL Hgb 9.5 L (13.0-17.5) gm/dL Hct 30.0 L (39.0-53.0) % MCV 103.7 H (80.0-100.0) fL ABG pH (7.35-7.45) ABG pO2 (83-108) mmHg ABG HCO3 (21-25) mmol/L ABG Total CO2 (19-24) mmol/L ABG O2 Saturation (94-97) % Chloride (98-107) mmol/L Carbon Dioxide (22-30) mmol/L BUN (9-20) mg/dL Creatinine (0.66-1.25) mg/dL Glucose (74-99) mg/dL POC Glucose (mg/dL) 198 H 142 H (75-99) mg/dL Total Protein (6.3-8.2) g/dL Albumin (3.5-5.0) g/dL 11/29/21 11/29/21 11/29/21 Range/Units 04:15 05:25 05:53 RBC (4.30-5.90) m/uL Hgb (13.0-17.5) gm/dL Hct (39.0-53.0) % MCV (80.0-100.0) fL ABG pH 7.49 H (7.35-7.45) ABG pO2 135 H (83-108) mmHg ABG HCO3 33 H (21-25) mmol/L ABG Total CO2 35 H (19-24) mmol/L ABG O2 Saturation 100.0 H (94-97) % Chloride 108 H (98-107) mmol/L Carbon Dioxide 31 H (22-30) mmol/L BUN 22 H (9-20) mg/dL Creatinine 0.44 L (0.66-1.25) mg/dL Glucose 156 H (74-99) mg/dL POC Glucose (mg/dL) 151 H (75-99) mg/dL Total Protein 5.9 L (6.3-8.2) g/dL Albumin 3.0 L (3.5-5.0) g/dL 11/29/21 Range/Units 11:31 RBC (4.30-5.90) m/uL Hgb (13.0-17.5) gm/dL Hct (39.0-53.0) % MCV (80.0-100.0) fL ABG pH (7.35-7.45) ABG pO2 (83-108) mmHg ABG HCO3 (21-25) mmol/L ABG Total CO2 (19-24) mmol/L ABG O2 Saturation (94-97) % Chloride (98-107) mmol/L Carbon Dioxide (22-30) mmol/L BUN (9-20) mg/dL Creatinine (0.66-1.25) mg/dL Glucose (74-99) mg/dL POC Glucose (mg/dL) 148 H (75-99) mg/dL Total Protein (6.3-8.2) g/dL Albumin (3.5-5.0) g/dL
[2021-11-29] MEDS: ENALAPRILAT 1.25 MG/ML 1 ML VIAL IVP PRN (16:15)
--- NOTE | 2021-11-29 16:17 | P.PN ---
Subjective Progress Note Date: 11/28/21 Principal diagnosis: Pneumonia, rash, leukocytosis Patient is a 61-year male admitted to the hospital October 23, 2021 patient diagnosed with COVID-19 pneumonia did have a respiratory failure requiring intubation failed to be extubated status post trach and PEG on November 10, 2021 patient also have a component of secondary to pneumonia with MSSA patient has received more than 2 weeks course of Zosyn which was discontinued 11/17/2021 because of rash. On today's evaluation that is 11/28/2021 the patient is afebrile today, patient is hemodynamically stable not requiring any pressor support, the patient FiO2 is stable at 40 %,no significant purulent secretion through the ET or diarrhea has been reported and the patient is tolerating his tube feeds, and no diarrhea has been reported Objective - Vital Signs Vital signs: Vital Signs Temp 98.8 F 11/28/21 20:00 Pulse 53 L 11/28/21 22:00 Resp 21 11/28/21 22:00 BP 157/86 11/28/21 17:00 Pulse Ox 97 11/28/21 22:00 Intake & Output 11/28/21 11/28/21 11/29/21 06:59 18:59 06:59 Intake Total 211.548 9356.908 70 Output Total 660 990 150 Balance 323.890 103.908 -80 Weight 122.243 kg Intake: IV 276 326 23 0.9 Normal Saline @ 20 mL 240 240 20 /hr KVO Pressure bag 36 36 3 ceFAZolin 2 gm In Sodium 50 Chloride 0.9% 50 ml @ 100 mls/hr IVPB Q8HR [facility] Rx# :[id number] Intake, IV Titration 53.890 68.908 0 Amount Clevidipine Butyrate 25 38 mg In Empty Bag 1 bag @ 1 MG/HR 2 mls/hr IV .Q24H [facility] Rx#:[id number] Dexmedetomidine/0.9% NaCl 15.890 68.908 0 (Pmx) 400 mcg In Empty Bag 1 bag @ 0.2 MCG/KG/HR 6.42 mls/hr IV .[id number] [facility] Rx#:[id number] Tube Feeding 564 564 47 Other 90 135 Output: Urine 660 990 150 Other: Voiding Method Indwelling Catheter Indwelling Catheter Indwelling Catheter ABP, PAP, CO, CI - Last Documented Arterial Blood Pressure 77/40 - Exam GENERAL DESCRIPTION: Middle-age male intubated on the vent RESPIRATORY SYSTEM: Unlabored breathing , decreased breath sounds at bases HEART: S1 S2 regular rate and rhythm ,no loud murmurs ABDOMEN: Soft , no tenderness EXTREMITIES: No edema feet - Labs CBC & Chem 7: 11/29/21 04:15 11/29/21 04:15 Labs: Abnormal Lab Results - Last 24 Hours (Table) 11/27/21 11/28/21 11/28/21 Range/Units 23:50 05:27 06:15 RBC (4.30-5.90) m/uL Hgb (13.0-17.5) gm/dL Hct (39.0-53.0) % MCV (80.0-100.0) fL ABG pH 7.50 H (7.35-7.45) ABG pCO2 46 H (35-45) mmHg ABG pO2 73 L (83-108) mmHg ABG HCO3 36 H (21-25) mmol/L ABG Total CO2 37 H (19-24) mmol/L Carbon Dioxide (22-30) mmol/L BUN (9-20) mg/dL Creatinine (0.66-1.25) mg/dL Glucose (74-99) mg/dL POC Glucose (mg/dL) 130 H 137 H (75-99) mg/dL Total Protein (6.3-8.2) g/dL Albumin (3.5-5.0) g/dL 11/28/21 11/28/21 11/28/21 Range/Units 07:53 07:53 12:42 RBC 2.83 L (4.30-5.90) m/uL Hgb 9.3 L (13.0-17.5) gm/dL Hct 29.5 L (39.0-53.0) % MCV 104.3 H (80.0-100.0) fL ABG pH (7.35-7.45) ABG pCO2 (35-45) mmHg ABG pO2 (83-108) mmHg ABG HCO3 (21-25) mmol/L ABG Total CO2 (19-24) mmol/L Carbon Dioxide 34 H (22-30) mmol/L BUN 21 H (9-20) mg/dL Creatinine 0.38 L (0.66-1.25) mg/dL Glucose 184 H (74-99) mg/dL POC Glucose (mg/dL) 191 H (75-99) mg/dL Total Protein 5.7 L (6.3-8.2) g/dL Albumin 2.9 L (3.5-5.0) g/dL 11/28/21 Range/Units 17:46 RBC (4.30-5.90) m/uL Hgb (13.0-17.5) gm/dL Hct (39.0-53.0) % MCV (80.0-100.0) fL ABG pH (7.35-7.45) ABG pCO2 (35-45) mmHg ABG pO2 (83-108) mmHg ABG HCO3 (21-25) mmol/L ABG Total CO2 (19-24) mmol/L Carbon Dioxide (22-30) mmol/L BUN (9-20) mg/dL Creatinine (0.66-1.25) mg/dL Glucose (74-99) mg/dL POC Glucose (mg/dL) 198 H (75-99) mg/dL Total Protein (6.3-8.2) g/dL Albumin (3.5-5.0) g/dL Assessment and Plan (1) Fever Current Visit: Yes Status: Acute Code(s): R50.9 - FEVER, UNSPECIFIED SNOMED Code(s): 755378430 (2) Rash Current Visit: Yes Status: Acute Code(s): R21 - RASH AND OTHER NONSPECIFIC SKIN ERUPTION SNOMED Code(s): 868693560 (3) COVID-19 Current Visit: Yes Status: Acute Code(s): U07.1 - COVID-19 SNOMED Code(s): 333496266 Plan: 1-Patient with rash likely related to Zosyn which has been discontinued rash has resolved. 2 leukocytosis and question of possible oropharyngeal candidiasis patient is currently covered with Eraxis , WBC down to 7.7 today 3-patient did have a low-grade fever , repeat sputum culture is growing MSSA and Bibi, for the patient is currently being treated with the cefazolin and Eraxis to continue and monitor his clinical course closely Time with Patient: Less than 30
--- NOTE | 2021-11-29 16:20 | P.PN ---
Subjective Progress Note Date: 11/29/21 Principal diagnosis: Pneumonia, rash, leukocytosis Patient is a 61-year male admitted to the hospital October 23, 2021 patient diagnosed with COVID-19 pneumonia did have a respiratory failure requiring intubation failed to be extubated status post trach and PEG on November 10, 2021 patient also have a component of secondary to pneumonia with MSSA patient has received more than 2 weeks course of Zosyn which was discontinued 11/17/2021 because of rash. On today's evaluation that is 11/29/2021 the patient remains to be afebrile, patient is hemodynamically stable not requiring any pressor support, the patient has been weaned down to trach collar,no significant purulent secretion through the ET or diarrhea has been reported and the patient is tolerating his tube feed s, patient is more awake and alert up in the chair and following commands Objective - Vital Signs Vital signs: Vital Signs Temp 98.4 F 11/29/21 12:00 Pulse 64 11/29/21 14:00 Resp 25 H 11/29/21 14:00 BP 157/86 11/28/21 17:00 Pulse Ox 100 11/29/21 14:00 Intake & Output 11/28/21 11/29/21 11/29/21 18:59 06:59 18:59 Intake Total 1709.031 4637.000 655.056 Output Total 990 655 470 Balance 103.908 375.000 185.056 Weight 122.4 kg Intake: IV 326 276 184 0.9 Normal Saline @ 20 mL 240 240 160 /hr KVO Pressure bag 36 36 24 ceFAZolin 2 gm In Sodium 50 Chloride 0.9% 50 ml @ 100 mls/hr IVPB Q8HR [facility] Rx# :[id number] Intake, IV Titration 68.908 100.000 65.056 Amount Dexmedetomidine/0.9% NaCl 68.908 100.000 65.056 (Pmx) 400 mcg In Empty Bag 1 bag @ 0.2 MCG/KG/HR 6.42 mls/hr IV .[id number] [facility] Rx#:[id number] Tube Feeding 564 564 376 Other 135 90 30 Output: Urine 990 655 470 Other: Voiding Method Indwelling Catheter Indwelling Catheter Indwelling Catheter ABP, PAP, CO, CI - Last Documented Arterial Blood Pressure 175/64 - Exam GENERAL DESCRIPTION: Middle-age male up in the chair RESPIRATORY SYSTEM: Unlabored breathing , decreased breath sounds at bases HEART: S1 S2 regular rate and rhythm , ABDOMEN: Soft , no tenderness EXTREMITIES: No edema feet - Labs CBC & Chem 7: 11/29/21 04:15 11/29/21 04:15 Labs: Abnormal Lab Results - Last 24 Hours (Table) 11/28/21 11/28/21 11/29/21 Range/Units 17:46 23:42 04:15 RBC 2.89 L (4.30-5.90) m/uL Hgb 9.5 L (13.0-17.5) gm/dL Hct 30.0 L (39.0-53.0) % MCV 103.7 H (80.0-100.0) fL ABG pH (7.35-7.45) ABG pO2 (83-108) mmHg ABG HCO3 (21-25) mmol/L ABG Total CO2 (19-24) mmol/L ABG O2 Saturation (94-97) % Chloride (98-107) mmol/L Carbon Dioxide (22-30) mmol/L BUN (9-20) mg/dL Creatinine (0.66-1.25) mg/dL Glucose (74-99) mg/dL POC Glucose (mg/dL) 198 H 142 H (75-99) mg/dL Total Protein (6.3-8.2) g/dL Albumin (3.5-5.0) g/dL 11/29/21 11/29/21 11/29/21 Range/Units 04:15 05:25 05:53 RBC (4.30-5.90) m/uL Hgb (13.0-17.5) gm/dL Hct (39.0-53.0) % MCV (80.0-100.0) fL ABG pH 7.49 H (7.35-7.45) ABG pO2 135 H (83-108) mmHg ABG HCO3 33 H (21-25) mmol/L ABG Total CO2 35 H (19-24) mmol/L ABG O2 Saturation 100.0 H (94-97) % Chloride 108 H (98-107) mmol/L Carbon Dioxide 31 H (22-30) mmol/L BUN 22 H (9-20) mg/dL Creatinine 0.44 L (0.66-1.25) mg/dL Glucose 156 H (74-99) mg/dL POC Glucose (mg/dL) 151 H (75-99) mg/dL Total Protein 5.9 L (6.3-8.2) g/dL Albumin 3.0 L (3.5-5.0) g/dL 11/29/21 Range/Units 11:31 RBC (4.30-5.90) m/uL Hgb (13.0-17.5) gm/dL Hct (39.0-53.0) % MCV (80.0-100.0) fL ABG pH (7.35-7.45) ABG pO2 (83-108) mmHg ABG HCO3 (21-25) mmol/L ABG Total CO2 (19-24) mmol/L ABG O2 Saturation (94-97) % Chloride (98-107) mmol/L Carbon Dioxide (22-30) mmol/L BUN (9-20) mg/dL Creatinine (0.66-1.25) mg/dL Glucose (74-99) mg/dL POC Glucose (mg/dL) 148 H (75-99) mg/dL Total Protein (6.3-8.2) g/dL Albumin (3.5-5.0) g/dL Assessment and Plan (1) Fever Current Visit: Yes Status: Acute Code(s): R50.9 - FEVER, UNSPECIFIED SNOMED Code(s): 181803219 (2) Rash Current Visit: Yes Status: Acute Code(s): R21 - RASH AND OTHER NONSPECIFIC SKIN ERUPTION SNOMED Code(s): 602385858 (3) COVID-19 Current Visit: Yes Status: Acute Code(s): U07.1 - COVID-19 SNOMED Code(s): 883252926 Plan: 1- leukocytosis and question of possible oropharyngeal candidiasis patient is currently covered with Eraxis , WBC remains to be normal with reading of 8.2 today 3-patient did have a low-grade fever , repeat sputum culture is growing MSSA and Bibi, for the patient is currently being treated with the cefazolin and Eraxis to continue and will be transitioned a short course of oral Keflex on discharge
[2021-11-29] MEDS: hydrALAZINE HCL 20 MG/ML 1 ML VIAL IVP PRN (17:03)
[2021-11-29 17:45] LABS: Glucose,Whole Blood 192 mg/dL (75-99)
[2021-11-29] MEDS ORDERED: propofoL 100 ML IV ONE (18:24)
[2021-11-29] MEDS: LORazepam 0.5 MG TAB PO SCH (19:21)
[2021-11-29] MEDS: CLEVIDIPINE BUTYRATE 25 MG in EMPTY BAG 1 BAG IV SCH (19:56)
[2021-11-29] MEDS: LOSARTAN 50 MG TAB PO SCH (20:14)
[2021-11-29] MEDS: INSULIN DETEMIR (LEVEMIR) 100 UNIT/ML SYR SQ SCH (20:15)
--- NOTE | 2021-11-29 21:06 | P.PN ---
Subjective This is a pleasant 61-year-old patient, chronic stable medical conditions include diabetes, hypertension, hyperlipidemia, osteoarthritis, peripheral neuropathy, chronic gout. Patient presents with increasing shortness of breath. Cough. Clear sputum. Fever and chills. Tired rundown decrease appetite and diarrhea about 2 times a day. Patient tested positive for COVID-19 on October 09. His initial rapid COVID-19 was negative. In the send out came back positive. Patient did not take the vaccine against COVID-19. He is on 8 L of oxygen this morning. He is outside the window for Remdesivir. Admitted with COVID 19 pneumonitis, acute hypoxic respiratory failure. Started on Decadron. IV fluids. October 26 chest CTA showed bilateral pulmonary embolism. Breathing cord worse in October 30 patient is intubated. Requiring various drips. 2 feeding was started. November 10 patient got a tracheostomy and a PEG tube. Patient subsequently had a large bleed from the tracheostomy site. Desaturated. Tracheostomy had to be removed. Bedside bronchoscopy was done. Large blood loss was removed. Was put back on the ventilator/intubated. Required FFP. November 19 tracheostomy revision done. Lovenox resume. November 22 patient had bleeding a cane around the tracheostomy site. Bedside bronchoscopy was done large amount of blood cause was removed. Tracheostomy was resecured. November [address] [place] [address] by Dr[address] Boothe. In the ICU patient been on different drips including propofol, fentanyl, Nimbex, cleviprex. November 24: ICU. Ventilator: FiO2 55 PEEP of 10. 2 feeding at 33 mL an hour. Patient off cleviprex. Oral amlodipine, losartan was added. Drips include fentanyl, propofol, Nimbex. Nimbex and being weaned off. November 25: ICU. Because of a rash Zosyn was discontinued. He is on IV Ancef and eraxis. Ventilator: 60/5. Does open eyes. Follows with eyes. On Precedex. Some fluctuation of blood pressure likely from anxiety. Significantly alkalotic with a pH of 7.5 to also bicarb is up to 35. Patient is likely volume contracted and should benefit from discontinuing IV Lasix. November 26: ICU. Ventilator. FiO2 45 PEEP of 8. 2 feeding continues. Patient is off all drips. Blood pressure does fluctuate. Patient is awake. Lasix has been discontinued. Anxiety component present. Seroquel added by pulmonary.. 11/27/2021 Patient remains in the ICU on mechanical ventilation. He is status post tracheostomy and PEG placement on 11/10. He is being covered with vitamin C, D and zinc as well as dexamethasone 4 mg daily. He has some evidence of oropharyngeal candidiasis and superimposed bacterial pneumonia with MSSA and currently covered with cefazolin and Eraxis ID and pulmonary team on the case. He remains on PEEP of 8 and FiO2 of 40% and his family tachypneic. 11/28/2021 Patient remains in the ICU on mechanical ventilation via tracheostomy with pulmonary/critical care team followed closely and help with the vent management. His blood pressure was slightly elevated today with systolic has high as 180- 119. Norvasc 10 mg was added. Also patient undergoing breathing trial with pulmonary team today. Remains on Eraxis and cefazolin 11/29/2021 Patient still in the ICU get agitated at times. He is undergoing breathing trial today and possible will be change into trach collar by pulmonary team. Psychiatric has been consulted by pulmonary team for his agitation, and the recommended small dose of Ativan 38 His hemoglobin is stable today at 9.5, rest of labs are unremarkable. His FiO2 was 40% and his breathing at a rate of 19. Blood pressure 151/53 after Norvasc 10 mg was added. Glucose is controlled. Her remains on Eraxis and cefazolin for MSSA in his sputum culture. Chest x-ray from yesterday showing no interval change. Objective - Vital Signs Vital signs: Vital Signs Temp 98 F 11/29/21 08:00 Pulse 46 L 11/29/21 10:00 Resp 24 11/29/21 10:00 BP 157/86 11/28/21 17:00 Pulse Ox 99 11/29/21 10:00 Intake & Output 11/28/21 11/29/21 11/29/21 18:59 06:59 18:59 Intake Total 8602.784 1266.000 275.056 Output Total 990 655 140 Balance 103.908 375.000 135.056 Weight 122.4 kg Intake: IV 326 276 69 0.9 Normal Saline @ 20 mL 240 240 60 /hr KVO Pressure bag 36 36 9 ceFAZolin 2 gm In Sodium 50 Chloride 0.9% 50 ml @ 100 mls/hr IVPB Q8HR [facility] Rx# :[id number] Intake, IV Titration 68.908 100.000 65.056 Amount Dexmedetomidine/0.9% NaCl 68.908 100.000 65.056 (Pmx) 400 mcg In Empty Bag 1 bag @ 0.2 MCG/KG/HR 6.42 mls/hr IV .[id number] [facility] Rx#:[id number] Tube Feeding 564 564 141 Other 135 90 Output: Urine 990 655 140 Other: Voiding Method Indwelling Catheter Indwelling Catheter Indwelling Catheter ABP, PAP, CO, CI - Last Documented Arterial Blood Pressure - Exam -GENERAL: The patient is alert and oriented x3, not in any acute distress. Status post tracheostomy HEENT: Pupils are round and equally reacting to light. EOMI. No scleral icterus. No conjunctival pallor. Normocephalic, atraumatic. No pharyngeal erythema. No thyromegaly. CARDIOVASCULAR: S1 and S2 present. No murmurs, rubs, or gallops. PULMONARY: Chest is clear to auscultation, no wheezing or crackles. -ABDOMEN: Soft, nontender, nondistended, normoactive bowel sounds. No palpable organomegaly. PEG is in place MUSCULOSKELETAL: No joint swelling or deformity. EXTREMITIES: No cyanosis, clubbing, or pedal edema. NEUROLOGICAL: Gross neurological examination did not reveal any focal deficits. SKIN: No rashes. no petechiae. - Labs CBC & Chem 7: 11/29/21 04:15 11/29/21 04:15 Labs: Abnormal Lab Results - Last 24 Hours (Table) 11/28/21 11/28/21 11/28/21 Range/Units 12:42 17:46 23:42 RBC (4.30-5.90) m/uL Hgb (13.0-17.5) gm/dL Hct (39.0-53.0) % MCV (80.0-100.0) fL ABG pH (7.35-7.45) ABG pO2 (83-108) mmHg ABG HCO3 (21-25) mmol/L ABG Total CO2 (19-24) mmol/L ABG O2 Saturation (94-97) % Chloride (98-107) mmol/L Carbon Dioxide (22-30) mmol/L BUN (9-20) mg/dL Creatinine (0.66-1.25) mg/dL Glucose (74-99) mg/dL POC Glucose (mg/dL) 191 H 198 H 142 H (75-99) mg/dL Total Protein (6.3-8.2) g/dL Albumin (3.5-5.0) g/dL 11/29/21 11/29/21 11/29/21 Range/Units 04:15 04:15 05:25 RBC 2.89 L (4.30-5.90) m/uL Hgb 9.5 L (13.0-17.5) gm/dL Hct 30.0 L (39.0-53.0) % MCV 103.7 H (80.0-100.0) fL ABG pH (7.35-7.45) ABG pO2 (83-108) mmHg ABG HCO3 (21-25) mmol/L ABG Total CO2 (19-24) mmol/L ABG O2 Saturation (94-97) % Chloride 108 H (98-107) mmol/L Carbon Dioxide 31 H (22-30) mmol/L BUN 22 H (9-20) mg/dL Creatinine 0.44 L (0.66-1.25) mg/dL Glucose 156 H (74-99) mg/dL POC Glucose (mg/dL) 151 H (75-99) mg/dL Total Protein 5.9 L (6.3-8.2) g/dL Albumin 3.0 L (3.5-5.0) g/dL 11/29/21 Range/Units 05:53 RBC (4.30-5.90) m/uL Hgb (13.0-17.5) gm/dL Hct (39.0-53.0) % MCV (80.0-100.0) fL ABG pH 7.49 H (7.35-7.45) ABG pO2 135 H (83-108) mmHg ABG HCO3 33 H (21-25) mmol/L ABG Total CO2 35 H (19-24) mmol/L ABG O2 Saturation 100.0 H (94-97) % Chloride (98-107) mmol/L Carbon Dioxide (22-30) mmol/L BUN (9-20) mg/dL Creatinine (0.66-1.25) mg/dL Glucose (74-99) mg/dL POC Glucose (mg/dL) (75-99) mg/dL Total Protein (6.3-8.2) g/dL Albumin (3.5-5.0) g/dL Assessment and Plan Assessment: -Acute severe COVID 19 pneumonitis in a patient who did not take the COVID-19 vaccine: Slow to respond Dexamethasone, vitamin C, vitamin D, zinc. outside the window for Remdesivir. -Acute hypoxic respiratory failure from COVID-19: Slow to respond intubated October 30. FiO2 45/8 -Metabolic alkalosis, likely from volume contraction from IV Lasix IV Lasix discontinued - Acute hypoxic respiratory failure, secondary to Covid infection, on mechanical ventilation, possible transfer to [facility] today -Acute tracheobronchitis secondary to MSSA with Bibi oral pharyngitis, currently covered with cefazolin to be switched to Keflex upon discharge and ear axis -Bilateral pulmonary embolism secondary to COVID-19 Eliquis -discontinued because of bleeding. No [place] filter per vascular. Lovenox resumed after revision tracheostomy. Lovenox discontinued, because of bleeding: November 22. [place] filter placed by Dr. Boothe on November 23 -Essential hypertension: Labile. Likely anxiety component withdrawal component from medications Lopressor 50 mg twice a day, amlodipine 10 mg a day. Cozaar 100 mg daily at bedtime -Diabetes mellitus type 2, on oral hypoglycemic, uncontrolled with hyperglycemia Increase Levemir 32 units daily at bedtime. Follow Accu-Cheks -Chronic insomnia for medical conditions Elavil 50 mg daily at bedtime -Hyperlipidemia TriCor 48 mg daily -Hypoalbuminemia Acute phase reactant -Pneumonia with cultures positive for MSSA and Bibi IV Ancef and IVEraxis -Obstructive sleep apnea On CPAP at home -Pneumomediastinum and subcutis emphysema complications of COVID-19/pneumonia. - right upper apical pneumothorax less than 5%. -Diabetic peripheral neuropathy Lyrica 200 mg twice daily -Full code
[2021-11-29 23:23] LABS: Glucose,Whole Blood 149 mg/dL (75-99)
[2021-11-30] MEDS: HALOPERIDOL LACTATE 5 MG/ML 1 ML VIAL IVP PRN ×2 (00:09→03:41)
[2021-11-30] MEDS: HYDROmorphone 1 MG/ML 1 ML SYRINGE IVP PRN ×2 (01:00→03:15)
[2021-11-30] MEDS: ENALAPRILAT 1.25 MG/ML 1 ML VIAL IVP PRN ×2 (02:09→06:46)
[2021-11-30] MEDS: hydrALAZINE HCL 20 MG/ML 1 ML VIAL IVP PRN ×2 (03:15→07:13)
[2021-11-30 04:21] LABS: Basophils # (A) 0.1 k/uL (0-0.2); Basophils % (A) 1 %; Eosinophils # (A) 0.2 k/uL (0-0.7); Eosinophils % (A) 2 %; HCT 30.6 % (39.0-53.0); HGB 9.6 gm/dL (13.0-17.5); Hypochromasia Moderate; Lymphocytes # (A) 2.7 k/uL (1.0-4.8); Lymphocytes % (A) 24 %; MCH 32.4 pg (25.0-35.0); MCHC 31.4 g/dL (31.0-37.0); MCV 103.1 fL (80.0-100.0); Macrocytosis Slight; Mean Platelet Volume 8.5; Monocytes # (A) 0.6 k/uL (0-1.0); Monocytes % (A) 5 %; Neutrophils # (A) 7.4 k/uL (1.3-7.7); Neutrophils % (A) 66 %; Platelet Count 279 k/uL (150-450); RBC 2.97 m/uL (4.30-5.90); RDW 14.5 % (11.5-15.5); WBC 11.2 k/uL (3.8-10.6)
[2021-11-30 04:36] LABS: ALT 32 U/L (4-49); AST 25 U/L (17-59); African American GFR (CKD) >90 (>60 ml/min/1.73 sqM); Albumin 3.1 g/dL (3.5-5.0); Alkaline Phosphatase 74 U/L (38-126); Anion Gap 1 mmol/L; Blood Urea Nitrogen 19 mg/dL (9-20); Calcium 8.8 mg/dL (8.4-10.2); Carbon Dioxide 31 mmol/L (22-30); Chloride 107 mmol/L (98-107); Glucose 145 mg/dL (74-99); Non-African American GFR(CKD) >90 (>60 ml/min/1.73 sqM); Potassium 4.1 mmol/L (3.5-5.1); Sodium 139 mmol/L (137-145); Total Bilirubin 0.8 mg/dL (0.2-1.3); Total Protein 6.1 g/dL (6.3-8.2)
[2021-11-30 05:21] LABS: Glucose,Whole Blood 150 mg/dL (75-99)
[2021-11-30 06:00] LABS: ABG Base Excess 7.6 mmol/L; ABG HCO3 31 mmol/L (21-25); ABG Oxygen Saturation 99.8 % (94-97); ABG PCO2 42 mmHg (35-45); ABG PH 7.48 (7.35-7.45); ABG PO2 156 mmHg (83-108); ABG TCO2 33 mmol/L (19-24); Allen Test Performed? Yes
[2021-11-30] MEDS: PANTOPRAZOLE 40 MG TABLET PO SCH (06:26)
[2021-11-30] MEDS: INSULIN ASPART (NovoLOG) 100 UNIT/ML VIAL SQ SCH ×3 (06:26→18:11)
--- NOTE | 2021-11-30 07:43 | XR ---
EXAMINATION TYPE: XR chest 1V portable DATE OF EXAM: 11/30/2021 COMPARISON: Chest x-ray 11/28/2021 HISTORY: Patient on ventilator, abnormal chest x-ray TECHNIQUE: Single frontal view of the chest is obtained. FINDINGS: Tracheostomy tube is overlying the tracheal air column. There is a right-sided PICC line i n place and stable compared to prior. No evident pneumothorax or pleural effusion. Cardiac mediastina l silhouette is stable. Surgical clips present over the right neck. There are overlying artifacts. IMPRESSION: Findings are essentially stable.
--- NOTE | 2021-11-30 08:35 | P.PN ---
Subjective Progress Note Date: 11/30/21 61-year-old male patient with past medical history of diabetes mellitus type 2 with diabetic neuropathy, hypertension, hyperlipidemia, previous history of CVA, rheumatoid arthritis, obstructive sleep apnea S/P UPPP, history of right eye melanoma with previous surgeries, BPH with previous TURP, chronic lower extremity edema, cellulitis, gout, presented to the emergency department on 10/23/2021 at 240 3 in the morning with complaints of severe shortness of breath, cough, congestion. Patient states he has had symptoms since October 09, initially was tested via rapid COVID-19 PCR test which was negative however the send out PCR test came back positive. Patient was transferred to the intensive care on 10/29/2022, and was intubated in next day on 10/30/2022. The patient was given a tracheostomy tube on 11/10/2021. His course has been complicated by tracheostomy tube eroding his surgical wound and recurrent bleeding from the surgical wound, and based on that the patient was taken off anticoagulation the patient was given an IVC filter for pulmonary embolism. Currently he is on no anticoagulants On today's evaluation of 11/30/2021, the patient is awake and alert and he is communicating. He remains profoundly weak. The weakness is in all 4 extremities. The patient remains on a mechanical ventilator. This morning, he is on assist control mode at the rate of 24, tidal volume of 350, FiO2 of 40% with a PEEP of 8. The patient is currently on propofol at 30 mcg/kg per minute. This is needed to contain his sedation. He was on Precedex yesterday this was switched to propofol to more effectively control his sedation. Nevertheless, despite being on propofol, he is wide awake. His chest x-ray still showing bilateral pulmonary infiltrates, diffuse. The patient has a large tracheostomy site wound which is not bleeding at this point in time. Nevertheless, the wound is covered with purulent respiratory secretions that are greenish and thick. I aspirated the majority of the purulent material today. Cultures will be sent. Note that the patient was on a combination of Zosyn and Eraxis. Zosyn was discontinued after completing a two-week course of antibiotics. Infectious diseases on the case. The blood gases from today showing a pH of 7.48 with a pCO2 of 42 and pO2 156. This was on FiO2 of 40% PEEP white cell count is 11.2 with a hemoglobin of 9.6. Rest of the praveen ctrolytes are all within normal limits. He has a normal renal function. The overall fluid balance over the past 24 hours has been +563 mL. The patient is receiving enteral feeding for nutritional support and currently he is on vital HPI the rate of 47 mL an hour. He is currently off clevidipine drip. He is on Levemir insulin 32 units along with a slight scale coverage. He is taking Seroquel 50 mg by mouth twice a day along with Zoloft 50 mg on a daily basis for increased his anxiety, depression and delirium. He has a PEG tube for enteral feeding and nutritional support. He also was given an IVC filter regarding a pulmonary embolism that was diagnosed at time of his admission. Dopplers of lower extremities were essentially negative for any DVT. The IVC filter was inserted on 11/23/2021. Objective - Vital Signs Vital signs: Vital Signs Temp 98.7 F 11/30/21 04:00 Pulse 72 11/30/21 07:00 Resp 32 H 11/30/21 07:00 BP 157/86 11/28/21 17:00 Pulse Ox 98 11/30/21 07:00 Intake & Output 11/29/21 11/30/21 11/30/21 18:59 06:59 18:59 Intake Total 4722.017 8686.989 Output Total 1105 1205 Balance -69.944 -121.011 Weight 122.5 kg Intake: IV 299 253 0.9 Normal Saline @ 20 mL 260 220 /hr KVO Pressure bag 39 33 Intake, IV Titration 65.056 176.989 Amount Dexmedetomidine/0.9% NaCl 65.056 (Pmx) 400 mcg In Empty Bag 1 bag @ 0.2 MCG/KG/HR 6.42 mls/hr IV .[id number] [facility] Rx#:[id number] propofoL 1,000 mg In 176.989 Empty Bag 1 bag @ Titrate IV .Q0M [facility] Rx#: [id number] Tube Feeding 611 564 Other 60 90 Output: Urine 1105 1205 Other: Voiding Method Indwelling Catheter Indwelling Catheter ABP, PAP, CO, CI - Last Documented Arterial Blood Pressure 145/52 - Exam GENERAL EXAM: Alert, restless 61-year-old male patient, the patient remains on a mechanical ventilator , trach tube is in place and the patient has a Bivona tracheostomy tube. The patient is currently on low-dose propofol to control his anxiety and agitation. He is quite successful mechanical ventilator. HEAD: Normocephalic. EYES: Normal reaction of pupils, equal size. NOSE: Clear with pink turbinates. THROAT: No erythema or exudates. He has a Bivona tracheostomy tube in place. Exit site is clean. No evidence of any air leak. No evidence of any bleeding around the tracheostomy stoma. The wound is packed and there is no active bleeding NECK: No masses, no JVD. CHEST: No chest wall deformity. LUNGS: Equal air entry with coarse crackles in the posterior bases. CVS: S1 and S2 normal with no audible murmur, regular rhythm. ABDOMEN: No hepatosplenomegaly, normal bowel sounds, no guarding or rigidity. The patient has also had a PEG tube in place which is currently intact. No evidence of any bleeding around the PEG tube. SPINE: No scoliosis or deformity SKIN: No rashes CENTRAL NERVOUS SYSTEM: No focal deficits, tone is normal in all 4 extremities., The patient opens up his eyes and follows simple commands. He is able to move or flex images without any limitation. EXTREMITIES: There is peripheral edema. No clubbing, no cyanosis. Peripheral pulses are intact. - Labs CBC & Chem 7: 11/30/21 04:02 11/30/21 04:02 Labs: Abnormal Lab Results - Last 24 Hours (Table) 11/29/21 11/29/21 11/29/21 Range/Units 11:31 17:44 23:22 WBC (3.8-10.6) k/uL RBC (4.30-5.90) m/uL Hgb (13.0-17.5) gm/dL Hct (39.0-53.0) % MCV (80.0-100.0) fL ABG pH (7.35-7.45) ABG pO2 (83-108) mmHg ABG HCO3 (21-25) mmol/L ABG Total CO2 (19-24) mmol/L ABG O2 Saturation (94-97) % Carbon Dioxide (22-30) mmol/L Creatinine (0.66-1.25) mg/dL Glucose (74-99) mg/dL POC Glucose (mg/dL) 148 H 192 H 149 H (75-99) mg/dL Total Protein (6.3-8.2) g/dL Albumin (3.5-5.0) g/dL 11/30/21 11/30/21 11/30/21 Range/Units 04:02 04:02 05:19 WBC 11.2 H (3.8-10.6) k/uL RBC 2.97 L (4.30-5.90) m/uL Hgb 9.6 L (13.0-17.5) gm/dL Hct 30.6 L (39.0-53.0) % MCV 103.1 H (80.0-100.0) fL ABG pH (7.35-7.45) ABG pO2 (83-108) mmHg ABG HCO3 (21-25) mmol/L ABG Total CO2 (19-24) mmol/L ABG O2 Saturation (94-97) % Carbon Dioxide 31 H (22-30) mmol/L Creatinine 0.38 L (0.66-1.25) mg/dL Glucose 145 H (74-99) mg/dL POC Glucose (mg/dL) 150 H (75-99) mg/dL Total Protein 6.1 L (6.3-8.2) g/dL Albumin 3.1 L (3.5-5.0) g/dL 11/30/21 Range/Units 05:55 WBC (3.8-10.6) k/uL RBC (4.30-5.90) m/uL Hgb (13.0-17.5) gm/dL Hct (39.0-53.0) % MCV (80.0-100.0) fL ABG pH 7.48 H (7.35-7.45) ABG pO2 156 H (83-108) mmHg ABG HCO3 31 H (21-25) mmol/L ABG Total CO2 33 H (19-24) mmol/L ABG O2 Saturation 99.8 H (94-97) % Carbon Dioxide (22-30) mmol/L Creatinine (0.66-1.25) mg/dL Glucose (74-99) mg/dL POC Glucose (mg/dL) (75-99) mg/dL Total Protein (6.3-8.2) g/dL Albumin (3.5-5.0) g/dL Assessment and Plan Plan: 1 Acute hypoxic respiratory failure related to acute COVID-19 related pneumonia, patient presented to the emergency department on 10/23/2021 with 2 week history of symptoms, patient is outside the window for Remdesivir, he is a non-vaccinated adult. The patient was transferred to the intensive care unit . The patient has been on mechanical ventilator 10/30/2022. The patient underwent tracheostomy tube insertion on 11/10/2021. This was not associated with significant amount of bleeding around the tracheostomy stoma. That examination was discontinued and the patient was given IVC filter in 11/23/2021. The patient is currently off anticoagulants. His chest x-ray is showing diffuse bilateral pulmonary infiltrates. The patient is currently down to PEEP of 8 with FiO2 of 40%. There is copious amount of rest or secretions around the tracheostomy , thick and purulent. Cultures will be collected. Currently on Eraxis. 2 Bilateral pulmonary emboli on computed tomography scan 10/26/2021. He received IVC filter on 11/23/2021 currently on no anticoagulants 3 Diabetes mellitus type 2 with diabetic neuropathy currently on Levemir insulin for blood sugar control 4 right apical pneumothorax, approximately 5%, recovered 5 epistaxis, recovered 6 Obstructive sleep apnea with previous history of UPPP 7 History of right eye melanoma with multiple surgeries 8 Previous history of CVA 9 Rheumatoid arthritis 10 History of gout 11 Previous history of MRSA infection in the wound on his back 12 Mild lactic acidosis, improved with IV hydration 13 Elevated inflammatory markers related to acute COVID-19 pneumonia, improved 14 BPH with previous history of TURP 15 pneumomediastinum and subcutaneous emphysema, complications of COVID 19 related pneumonia, recovered 16 tiny right apical pneumothorax less than 5%, recovered 17 sinus bradycardia, recovered 18 hypertension 19 hyperlipidemia 20 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 Critically care evaluation that was on a more than 30 minutes. May be a candidate for select specialty transfer the later stage. Time with Patient: Greater than 30
[2021-11-30] MEDS: METOPROLOL TARTRATE 50 MG TAB PO SCH ×2 (09:27→20:18)
[2021-11-30] MEDS: CHOLECALCIFEROL 25 MCG (1000 IU) TABLET PO SCH (09:27)
[2021-11-30] MEDS: ASCORBIC ACID 500 MG TAB PO SCH (09:28)
[2021-11-30] MEDS: ZINC SULFATE 220 MG CAP PO SCH (09:28)
[2021-11-30] MEDS: PREGABALIN 100 MG CAP PO SCH (09:28)
[2021-11-30] MEDS: LACTULOSE 20 GM/30 ML CUP PO SCH ×3 (09:29→20:19)
[2021-11-30] MEDS: QUEtiapine 50 MG TAB PO SCH ×2 (09:34→20:18)
[2021-11-30] MEDS: SERTRALINE 50 MG TAB PO SCH (09:34)
[2021-11-30] MEDS: bisacodyL 10 MG SUPP RECTAL SCH ×2 (09:46→20:18)
[2021-11-30] MEDS: DEXAMETHASONE SOD PHOSPHATE 4 MG/ML 1 ML VIAL IVP SCH (09:47)
[2021-11-30 11:39] LABS: Glucose,Whole Blood 171 mg/dL (75-99)
[2021-11-30] MEDS: amLODIPine 10 MG TAB PO SCH (12:14)
[2021-11-30] MEDS: DEXMEDETOMIDINE/0.9% NACL(PMX) 400 MCG in EMPTY BAG 1 BAG IV SCH (12:15)
[2021-11-30] MEDS: ANIDULAFUNGIN 100 MG in SODIUM CHLORIDE 0.9% 100 ML IVPB SCH (12:15)
--- NOTE | 2021-11-30 16:01 | P.PN ---
Subjective Progress Note Date: 11/30/21 CHIEF COMPLAINT: COVID-19 pneumonia HISTORY OF PRESENT ILLNESS: Patient is in the ICU on mechanical ventilation. Initial tracheostomy and PEG tube placement on 11/10/2021. He is status post second revision of tracheostomy and partial thyroidectomy on 11/22 due to bleeding from tracheostomy site from Lovenox. He also required bronchoscopy with suctioning of blood clots from the airway. Patient had IVC filter placement done 11/23. Patient's Lovenox was discontinued. Patient has had no further bleeding from tracheostomy site. Patient is tolerating tube feeds. Patient is awake. Patient having drainage from his trach site which is being cultured Patient seen and examined with Dr. daniel PHYSICAL EXAM: VITAL SIGNS: Reviewed. GENERAL: Well-developed in no acute distress. HEENT: Head is atraumatic, normocephalic. Tracheostomy site with drainage ABDOMEN: Soft. Nondistended. Nontender. PEG tube site clean dry and intact NEUROLOGIC: Awake ASSESSMENT: 1. Acute hypoxic respiratory failure secondary to COVID-19 pneumonia requiring mechanical ventilation 2. Severe protein calorie malnutrition 3. Bilateral pulmonary emboli 4. Bleeding at tracheostomy site status post second tracheostomy revision PLAN: -Continue ICU management and supportive care -Continue tube feeds -Continue supportive care for tracheostomy -Continue to monitor Physician Sound Person note has been reviewed by physician. Signing provider agrees with the documented findings, assessment, and plan of care. Objective - Vital Signs Vital signs: Vital Signs Temp 98.6 F 11/30/21 12:00 Pulse 71 11/30/21 15:00 Resp 24 11/30/21 15:00 BP 157/86 11/28/21 17:00 Pulse Ox 98 11/30/21 15:00 Intake & Output 11/29/21 11/30/21 11/30/21 18:59 06:59 18:59 Intake Total 2078.582 5407.989 319.706 Output Total 1105 1205 1240 Balance -69.944 -21.011 -920.294 Weight 122.5 kg 122.5 kg Intake: IV 299 253 161 0.9 Normal Saline @ 20 mL 260 220 140 /hr KVO Pressure bag 39 33 21 Intake, IV Titration 65.056 276.989 72.706 Amount Dexmedetomidine/0.9% NaCl 65.056 (Pmx) 400 mcg In Empty Bag 1 bag @ 0.2 MCG/KG/HR 6.42 mls/hr IV .[id number] [facility] Rx#:[id number] propofoL 1,000 mg In 276.989 72.706 Empty Bag 1 bag @ Titrate IV .Q0M [facility] Rx#: [id number] Tube Feeding 611 564 86 Other 60 90 Output: Urine 1105 1205 1240 Other: Voiding Method Indwelling Catheter Indwelling Catheter Indwelling Catheter # Bowel Movements 1 ABP, PAP, CO, CI - Last Documented Arterial Blood Pressure 157/70 - Labs CBC & Chem 7: 11/30/21 04:02 11/30/21 04:02 Labs: Abnormal Lab Results - Last 24 Hours (Table) 11/29/21 11/29/21 11/30/21 Range/Units 17:44 23:22 04:02 WBC 11.2 H (3.8-10.6) k/uL RBC 2.97 L (4.30-5.90) m/uL Hgb 9.6 L (13.0-17.5) gm/dL Hct 30.6 L (39.0-53.0) % MCV 103.1 H (80.0-100.0) fL ABG pH (7.35-7.45) ABG pO2 (83-108) mmHg ABG HCO3 (21-25) mmol/L ABG Total CO2 (19-24) mmol/L ABG O2 Saturation (94-97) % Carbon Dioxide (22-30) mmol/L Creatinine (0.66-1.25) mg/dL Glucose (74-99) mg/dL POC Glucose (mg/dL) 192 H 149 H (75-99) mg/dL Total Protein (6.3-8.2) g/dL Albumin (3.5-5.0) g/dL 11/30/21 11/30/21 11/30/21 Range/Units 04:02 05:19 05:55 WBC (3.8-10.6) k/uL RBC (4.30-5.90) m/uL Hgb (13.0-17.5) gm/dL Hct (39.0-53.0) % MCV (80.0-100.0) fL ABG pH 7.48 H (7.35-7.45) ABG pO2 156 H (83-108) mmHg ABG HCO3 31 H (21-25) mmol/L ABG Total CO2 33 H (19-24) mmol/L ABG O2 Saturation 99.8 H (94-97) % Carbon Dioxide 31 H (22-30) mmol/L Creatinine 0.38 L (0.66-1.25) mg/dL Glucose 145 H (74-99) mg/dL POC Glucose (mg/dL) 150 H (75-99) mg/dL Total Protein 6.1 L (6.3-8.2) g/dL Albumin 3.1 L (3.5-5.0) g/dL 11/30/21 Range/Units 11:38 WBC (3.8-10.6) k/uL RBC (4.30-5.90) m/uL Hgb (13.0-17.5) gm/dL Hct (39.0-53.0) % MCV (80.0-100.0) fL ABG pH (7.35-7.45) ABG pO2 (83-108) mmHg ABG HCO3 (21-25) mmol/L ABG Total CO2 (19-24) mmol/L ABG O2 Saturation (94-97) % Carbon Dioxide (22-30) mmol/L Creatinine (0.66-1.25) mg/dL Glucose (74-99) mg/dL POC Glucose (mg/dL) 171 H (75-99) mg/dL Total Protein (6.3-8.2) g/dL Albumin (3.5-5.0) g/dL
[2021-11-30 17:31] LABS: Glucose,Whole Blood 167 mg/dL (75-99)
--- NOTE | 2021-11-30 18:49 | P.PN ---
Progress Note - Text Progress Note Date: 11/30/21 Chief Complaint: Short of breath This is a pleasant 61-year-old patient, chronic stable medical conditions include diabetes, hypertension, hyperlipidemia, osteoarthritis, peripheral neuropathy, chronic gout. Patient presents with increasing shortness of breath. Cough. Clear sputum. Fever and chills. Tired rundown decrease appetite and diarrhea about 2 times a day. Patient tested positive for COVID-19 on October 09. His initial rapid COVID-19 was negative. In the send out came back positive. Patient did not take the vaccine against COVID-19. He is on 8 L of oxygen this morning. He is outside the window for Remdesivir. Admitted with COVID 19 pneumonitis, acute hypoxic respiratory failure. Started on Decadron. IV fluids. October 26 chest CTA showed bilateral pulmonary embolism. Breathing cord worse in October 30 patient is intubated. Requiring various drips. 2 feeding was started. November 10 patient got a tracheostomy and a PEG tube. Patient subsequently had a large bleed from the tracheostomy site. Desaturated. Tracheostomy had to be removed. Bedside bronchoscopy was done. Large blood loss was removed. Was put back on the ventilator/intubated. Required FFP. November 19 tracheostomy revision done. Lovenox resume. November 22 patient had bleeding a cane around the tracheostomy site. Bedside bronchoscopy was done large amount of blood cause was removed. Tracheostomy was resecured. November 23 [place] filter placed by Dr. Boothe. In the ICU patient been on different drips including propofol, fentanyl, Nimbex, cleviprex. Amlodipine losartan was added. Because of rash Zosyn was discontinued. Because of MSSA sputum on IV Ancef. Anxiety component. Tried on Seroquel. Psychiatry added Ativan at night. November 30: Ventilator. FiO2 40 and a PEEP of 5. On propofol. Open eyes. Response with smiles. Tube feeding. Review of systems: Patient intubated Active Medications Acetaminophen (Acetaminophen Tab 325 Mg Tab) 650 mg PO Q6HR PRN PRN Reason: Mild Pain or Fever > 100.5 Last Admin: 11/26/21 20:17 Dose: 650 mg Documented by: Albuterol Sulfate (Albuterol Hfa Inhaler) 2 puff INHALATION RT-QID PRN PRN Reason: Shortness Of Breath Last Admin: 11/29/21 20:43 Dose: 2 puff Documented by: Amlodipine Besylate (Amlodipine 10 Mg Tab) 10 mg PO DAILY@1200 [facility] Last Admin: 11/30/21 12:14 Dose: 10 mg Documented by: Artificial Tears (Artificial Tears-Hypromellose Drops 15 Ml Btl) 2 drops BOTH EYES Q4HR PRN PRN Reason: Dry Eye(s) Ascorbic Acid (Ascorbic Acid 500 Mg Tab) 1,000 mg PO DAILY [facility] Last Admin: 11/30/21 09:28 Dose: 1,000 mg Documented by: Bisacodyl (Bisacodyl 10 Mg Supp) 10 mg RECTAL BID [facility] Last Admin: 11/30/21 09:46 Dose: Not Given Documented by: Cholecalciferol (Cholecalciferol 25 Mcg (1000 Iu) Tablet) 25 mcg PO DAILY [facility] Last Admin: 11/30/21 09:27 Dose: 25 mcg Documented by: Dexamethasone Sodium Phosphate (Dexamethasone Sod Phosphate 4 Mg/Ml 1 Ml Vial) 4 mg IVP DAILY [facility] Last Admin: 11/30/21 09:47 Dose: 4 mg Documented by: Enalaprilat (Enalaprilat 1.25 Mg/Ml 1 Ml Vial) 1.25 mg IVP Q4HR PRN PRN Reason: Blood Pressure - High Last Admin: 11/30/21 06:46 Dose: 1.25 mg Documented by: Haloperidol Lactate (Haloperidol Lactate 5 Mg/Ml 1 Ml Vial) 4 - 8 mg IVP Q6HR PRN PRN Reason: Agitation or Acute Psychosis Last Admin: 11/30/21 03:41 Dose: 8 mg Documented by: Hydralazine HCl (Hydralazine Hcl 20 Mg/Ml 1 Ml Vial) 20 mg IVP Q4HR PRN PRN Reason: Blood Pressure - High SBP >160 Last Admin: 11/30/21 07:13 Dose: 20 mg Documented by: Hydromorphone HCl (Hydromorphone 1 Mg/Ml 1 Ml Syringe) 1 mg IVP Q2HR PRN PRN Reason: Pain Last Admin: 11/30/21 03:15 Dose: 1 mg Documented by: Clevidipine 25 mg/ IV Solution 50 mls @ 2 mls/hr IV .Q24H [facility]; Protocol Last Admin: 11/29/21 19:56 Dose: Not Given Documented by: Anidulafungin 100 mg/ Sodium (Chloride) 100 mls @ 84 mls/hr IVPB DAILY@1200 [facility] Last Admin: 11/30/21 12:15 Dose: 84 mls/hr Documented by: Dexmedetomidine HCl 400 mcg/ (IV Solution) 100 mls @ 6.42 mls/hr IV .[id number] [facility]; Protocol Last Admin: 11/30/21 12:15 Dose: Not Given Documented by: Propofol 1,000 mg/ IV Solution 100 mls @ 0 mls/hr IV .Q0M [facility]; Protocol Last Admin: 11/30/21 17:16 Dose: 30 mcg/kg/min, 22.032 mls/hr Documented by: Insulin Aspart (Insulin Aspart (Novolog) 100 Unit/Ml Vial) 0 unit SQ Q6HR [facility]; Protocol Last Admin: 11/30/21 18:11 Dose: 3 unit Documented by: Insulin Detemir (Insulin Detemir (Levemir) 100 Unit/Ml Syr) 32 unit SQ [facility] Last Admin: 11/29/21 20:15 Dose: 32 unit Documented by: Lactulose (Lactulose 20 Gm/30 Ml Cup) 10 gm PO BID [facility] Last Admin: 11/30/21 09:46 Dose: Not Given Documented by: Lorazepam (Lorazepam 0.5 Mg Tab) 0.5 mg PO [facility] Last Admin: 11/29/21 19:21 Dose: 0.5 mg Documented by: Losartan Potassium (Losartan 50 Mg Tab) 100 mg PO [facility] Last Admin: 11/29/21 20:14 Dose: 100 mg Documented by: Metoprolol Tartrate (Metoprolol Tartrate 50 Mg Tab) 50 mg PO BID [facility] Last Admin: 11/30/21 09:27 Dose: 50 mg Documented by: Miscellaneous Information (Potassium Replacement Protocol 1 Each Misc) 1 each MISCELLANE DAILY PRN; Protocol PRN Reason: Per Protocol Pantoprazole Sodium (Pantoprazole 40 Mg Tablet) 40 mg PO AC-BRKFST [facility] Last Admin: 11/30/21 06:26 Dose: 40 mg Documented by: Pregabalin (Pregabalin 100 Mg Cap) 200 mg PO BID [facility] Last Admin: 11/30/21 09:28 Dose: 200 mg Documented by: Quetiapine Fumarate (Quetiapine 50 Mg Tab) 50 mg PO BID [facility] Last Admin: 11/30/21 09:34 Dose: 50 mg Documented by: Sertraline HCl (Sertraline 50 Mg Tab) 50 mg PO DAILY [facility] Last Admin: 11/30/21 09:34 Dose: 50 mg Documented by: Zinc Sulfate (Zinc Sulfate 220 Mg Cap) 220 mg PO DAILY [facility] Last Admin: 11/30/21 09:28 Dose: 220 mg Documented by: Social history: Patient is on Social Security. Does not smoke or drink alcohol. Patient's daughters family lives with him. Family history: Father at the age of 40 with heart attack Physical examination: VITAL SIGNS: 98.8, 70, 24, 1 29 x 51, 98% on the ventilator GENERAL: Laying in bed, . PEG tube . Tracheostomy tube. LUNGS: Respiratory rate increased,. PSYCH: Unable to assess NEURO: Eyes open. Response with facial expressions Rest of the exam per nursing and pulmonary INVESTIGATIONS, reviewed in the clinical context: November 30: White count 11.2 hemoglobin 9.6 platelets 279 potassium 4.1 creatinine 0.38 pH 7.48 Blood culture positive for Staphylococcus epidermidis/coagulates negative. Sputum culture: MSSA, Bibi albicans November 17: White count 16.9 hemoglobin 11.1 potassium 3.3 creatinine 0.4 November 16: White count 17 hemoglobin 8.1 potassium 3.2 creatinine 0.5 to October 28: D-dimer 13.4 to October 26: D-dimer 8.48 CRP 24 Chest CTA [October 26: biLateral pulmonary embolism Doppler ultrasound lower extremity: Negative for DVT October 24: White count 9.7 hemoglobin 15.3 platelets 221 d-dimer 1.93 progression 4.2 creatinine 0.71 CRP 5.5 pro-calcitonin 0.08 White count 9.9 hemoglobin 16 platelets 234 d-dimer 0.98 sodium 141 potassium 3.4 creatinine 0.81 Lactic acid 2.9 LDH 1422 CRP 7.5 EKG tracing personally reviewed by me-normal sinus rhythm. Nonspecific ST segment changes. Chest x-ray film personally reviewed by me-bilateral infiltrates Assessment and plan: -Acute severe COVID 19 pneumonitis in a patient who did not take the COVID-19 vaccine: Slow to respond Dexamethasone, vitamin C, vitamin D, zinc. outside the window for Remdesivir. -Acute hypoxic respiratory failure from COVID-19: Slow to respond intubated October 30. FiO2 45/ 5 -Metabolic alkalosis, likely from volume contraction from IV Lasix IV Lasix discontinued -Active bleeding around tracheostomy into the trachea and lungs. Status post bronchoscopy. Evacuation of large amounts of blood clot. Tracheostomy removed. Patient reintubated. revision tracheostomy tube - November 19. Lovenox was resumed. November 22: At the tracheostomy site: re- bleeding with blood clots followed by bronchoscopy. Revision of tracheostomy done. -Bilateral pulmonary embolism secondary to COVID-19 Eliquis -discontinued because of bleeding. Initially No [place] filter per vascular. Lovenox resumed after revision tracheostomy. Lovenox discontinued, because of bleeding: November 22. [place] filter placed by Dr. Boothe on November 23 -Essential hypertension: Labile. Likely anxiety component withdrawal component from medications Lopressor 50 mg twice a day, amlodipine 10 mg a day. Cozaar 100 mg daily at bedtime -Diabetes mellitus type 2, on oral hypoglycemic, uncontrolled with hyperglycemia Levemir 32 units daily at bedtime. Follow Accu-Cheks -Chronic insomnia for medical conditions Elavil 50 mg daily at bedtime at home -Hyperlipidemia TriCor 48 mg daily -Hypoalbuminemia Acute phase reactant -Pneumonia with cultures positive for MSSA and Bibi IV Ancef and IVEraxis -Obstructive sleep apnea On CPAP at home -Pneumomediastinum and subcutis emphysema complications of COVID-19/pneumonia. - right upper apical pneumothorax less than 5%. -Diabetic peripheral neuropathy Decrease Lyrica 100 mg 3 times a day -Full code -Anxiety disorder somewhat uncontrolled Patient was taking Tegretol 400 mg twice a day at home. Likely from chronic pain. We will resume the same. We also resume home dose of Elavil. Stop Ativan at night. [facility] or 200 mg daily. Resume home dose of Tegretol for chronic pain. We will also use home dose of Elavil 50 mg at night. Stop Ativan. Continue with Eraxis, propofol, Decadron,. Will DC Zoloft. Would also change Lyrica 100 mg 3 times a day. [ as 400 mg daily above the 300 recommended dose.]. Hopefully this will improve patient's mentation.
[2021-11-30] MEDS: AMITRIPTYLINE HCL 50 MG TAB PO SCH (20:17)
[2021-11-30] MEDS: INSULIN DETEMIR (LEVEMIR) 100 UNIT/ML SYR SQ SCH (20:18)
[2021-11-30] MEDS: LORazepam 0.5 MG TAB PO SCH (20:18)
[2021-11-30] MEDS: LOSARTAN 50 MG TAB PO SCH (20:18)
[2021-11-30] MEDS: carBAMazepine 200 MG TAB PO SCH (20:19)
--- NOTE | 2021-11-30 22:05 | P.PN ---
Subjective Progress Note Date: 11/30/21 Principal diagnosis: Pneumonia, rash, leukocytosis Patient is a 61-year male admitted to the hospital October 23, 2021 patient diagnosed with COVID-19 pneumonia did have a respiratory failure requiring intubation failed to be extubated status post trach and PEG on November 10, 2021 patient also have a component of secondary to pneumonia with MSSA patient has received more than 2 weeks course of Zosyn which was discontinued 11/17/2021 because of rash. On today's evaluation that is 11/30/2021 the patient continues to be afebrile, patient is hemodynamically stable not requiring any pressor support, the patient is back on the ventilator with an FiO2 of 40%,no significant purulent secretion through the ET or diarrhea has been reported and the patient is tolerating his tube feeds Objective - Vital Signs Vital signs: Vital Signs Temp 98.9 F 11/30/21 20:00 Pulse 80 11/30/21 20:00 Resp 26 H 11/30/21 20:00 BP 157/86 11/28/21 17:00 Pulse Ox 100 11/30/21 20:00 Intake & Output 11/30/21 11/30/21 12/01/21 06:59 18:59 06:59 Intake Total 1183.989 572.850 93 Output Total 1205 2589 125 Balance -011 -150 -32 Weight 122.5 kg 122.5 kg Intake: IV 253 276 23 0.9 Normal Saline @ 20 mL 220 240 20 /hr KVO Pressure bag 33 36 3 Intake, IV Titration 276.989 171.850 Amount propofoL 1,000 mg In 276.989 171.850 Empty Bag 1 bag @ Titrate IV .Q0M [facility] Rx#: [id number] Tube Feeding 564 125 40 Other 90 30 Output: Urine 1205 2589 125 Other: Voiding Method Indwelling Catheter Indwelling Catheter # Bowel Movements 1 ABP, PAP, CO, CI - Last Documented Arterial Blood Pressure 182/75 - Exam GENERAL DESCRIPTION: Middle-age male up in the chair RESPIRATORY SYSTEM: Unlabored breathing , decreased breath sounds at bases HEART: S1 S2 regular rate and rhythm , ABDOMEN: Soft , no tenderness EXTREMITIES: No edema feet - Labs CBC & Chem 7: 11/30/21 04:02 11/30/21 04:02 Labs: Abnormal Lab Results - Last 24 Hours (Table) 11/29/21 11/30/21 11/30/21 Range/Units 23:22 04:02 04:02 WBC 11.2 H (3.8-10.6) k/uL RBC 2.97 L (4.30-5.90) m/uL Hgb 9.6 L (13.0-17.5) gm/dL Hct 30.6 L (39.0-53.0) % MCV 103.1 H (80.0-100.0) fL ABG pH (7.35-7.45) ABG pO2 (83-108) mmHg ABG HCO3 (21-25) mmol/L ABG Total CO2 (19-24) mmol/L ABG O2 Saturation (94-97) % Carbon Dioxide 31 H (22-30) mmol/L Creatinine 0.38 L (0.66-1.25) mg/dL Glucose 145 H (74-99) mg/dL POC Glucose (mg/dL) 149 H (75-99) mg/dL Total Protein 6.1 L (6.3-8.2) g/dL Albumin 3.1 L (3.5-5.0) g/dL 11/30/21 11/30/21 11/30/21 Range/Units 05:19 05:55 11:38 WBC (3.8-10.6) k/uL RBC (4.30-5.90) m/uL Hgb (13.0-17.5) gm/dL Hct (39.0-53.0) % MCV (80.0-100.0) fL ABG pH 7.48 H (7.35-7.45) ABG pO2 156 H (83-108) mmHg ABG HCO3 31 H (21-25) mmol/L ABG Total CO2 33 H (19-24) mmol/L ABG O2 Saturation 99.8 H (94-97) % Carbon Dioxide (22-30) mmol/L Creatinine (0.66-1.25) mg/dL Glucose (74-99) mg/dL POC Glucose (mg/dL) 150 H 171 H (75-99) mg/dL Total Protein (6.3-8.2) g/dL Albumin (3.5-5.0) g/dL 01/31/22 Range/Units 17:29 WBC (3.8-10.6) k/uL RBC (4.30-5.90) m/uL Hgb (13.0-17.5) gm/dL Hct (39.0-53.0) % MCV (80.0-100.0) fL ABG pH (7.35-7.45) ABG pO2 (83-108) mmHg ABG HCO3 (21-25) mmol/L ABG Total CO2 (19-24) mmol/L ABG O2 Saturation (94-97) % Carbon Dioxide (22-30) mmol/L Creatinine (0.66-1.25) mg/dL Glucose (74-99) mg/dL POC Glucose (mg/dL) 167 H (75-99) mg/dL Total Protein (6.3-8.2) g/dL Albumin (3.5-5.0) g/dL Assessment and Plan (1) Fever Current Visit: Yes Status: Acute Code(s): R50.9 - FEVER, UNSPECIFIED SNOMED Code(s): 887757948 (2) Rash Current Visit: Yes Status: Acute Code(s): R21 - RASH AND OTHER NONSPECIFIC SKIN ERUPTION SNOMED Code(s): 822100950 (3) COVID-19 Current Visit: Yes Status: Acute Code(s): U07.1 - COVID-19 SNOMED Code(s): 329147820 Plan: 1- leukocytosis and question of possible oropharyngeal candidiasis patient is currently covered with Eraxis , WBC remains to be normal 3-patient did have a low-grade fever , repeat sputum culture is growing MSSA and Bibi, patient to continue with cefazolin and Eraxis and monitor his clinical course closely Time with Patient: Less than 30
[2021-12-01 00:03] LABS: Glucose,Whole Blood 142 mg/dL (75-99)
[2021-12-01] MEDS: INSULIN ASPART (NovoLOG) 100 UNIT/ML VIAL SQ SCH ×4 (00:30→18:12)
[2021-12-01] MEDS: CLEVIDIPINE BUTYRATE 25 MG in EMPTY BAG 1 BAG IV SCH (00:36)
[2021-12-01] MEDS: PREGABALIN 100 MG CAP PO SCH ×4 (00:37→20:25)
[2021-12-01 04:56] LABS: Glucose,Whole Blood 89 mg/dL (75-99)
[2021-12-01 05:07] LABS: HCT 26.1 % (39.0-53.0); HGB 8.4 gm/dL (13.0-17.5); Hypochromasia Slight; MCH 32.9 pg (25.0-35.0); MCHC 32.2 g/dL (31.0-37.0); MCV 102.3 fL (80.0-100.0); Macrocytosis Slight; Mean Platelet Volume 9.7; Platelet Count 210 k/uL (150-450); RBC 2.55 m/uL (4.30-5.90); RDW 14.3 % (11.5-15.5); WBC 7.1 k/uL (3.8-10.6)
[2021-12-01] MEDS: DEXMEDETOMIDINE/0.9% NACL(PMX) 400 MCG in EMPTY BAG 1 BAG IV SCH ×2 (05:30→23:14)
[2021-12-01 05:31] LABS: African American GFR (CKD) >90 (>60 ml/min/1.73 sqM); Anion Gap 1 mmol/L; Blood Urea Nitrogen 16 mg/dL (9-20); Calcium 8.4 mg/dL (8.4-10.2); Carbon Dioxide 30 mmol/L (22-30); Chloride 105 mmol/L (98-107); Glucose 90 mg/dL (74-99); Non-African American GFR(CKD) >90 (>60 ml/min/1.73 sqM); Potassium 3.6 mmol/L (3.5-5.1); Sodium 136 mmol/L (137-145)
[2021-12-01 05:51] LABS: ABG Base Excess 7.4 mmol/L; ABG HCO3 31 mmol/L (21-25); ABG Oxygen Saturation 99.3 % (94-97); ABG PCO2 45 mmHg (35-45); ABG PH 7.45 (7.35-7.45); ABG PO2 108 mmHg (83-108); ABG TCO2 33 mmol/L (19-24); Allen Test Performed? Yes
--- NOTE | 2021-12-01 07:28 | P.PN ---
Subjective Progress Note Date: 12/01/21 61-year-old male patient with past medical history of diabetes mellitus type 2 with diabetic neuropathy, hypertension, hyperlipidemia, previous history of CVA, rheumatoid arthritis, obstructive sleep apnea S/P UPPP, history of right eye melanoma with previous surgeries, BPH with previous TURP, chronic lower extremity edema, cellulitis, gout, presented to the emergency department on 10/23/2021 at 240 3 in the morning with complaints of severe shortness of breath, cough, congestion. Patient states he has had symptoms since October 09, initially was tested via rapid COVID-19 PCR test which was negative however the send out PCR test came back positive. Patient was transferred to the intensive care on 10/29/2022, and was intubated in next day on 10/30/2022. The patient was given a tracheostomy tube on 11/10/2021. His course has been complicated by tracheostomy tube eroding his surgical wound and recurrent bleeding from the surgical wound, and based on that the patient was taken off anticoagulation the patient was given an IVC filter for pulmonary embolism. Currently he is on no anticoagulants On today's evaluation of 11/30/2021, the patient is awake and alert and he is communicating. He remains profoundly weak. The weakness is in all 4 extremities. The patient remains on a mechanical ventilator. This morning, he is on assist control mode at the rate of 24, tidal volume of 350, FiO2 of 40% with a PEEP of 8. The patient is currently on propofol at 30 mcg/kg per minute. This is needed to contain his sedation. He was on Precedex yesterday this was switched to propofol to more effectively control his sedation. Nevertheless, despite being on propofol, he is wide awake. His chest x-ray still showing bilateral pulmonary infiltrates, diffuse. The patient has a large tracheostomy site wound which is not bleeding at this point in time. Nevertheless, the wound is covered with purulent respiratory secretions that are greenish and thick. I aspirated the majority of the purulent material today. Cultures will be sent. Note that the patient was on a combination of Zosyn and Eraxis. Zosyn was discontinued after completing a two-week course of antibiotics. Infectious diseases on the case. The blood gases from today showing a pH of 7.48 with a pCO2 of 42 and pO2 156. This was on FiO2 of 40% PEEP white cell count is 11.2 with a hemoglobin of 9.6. Rest of the praveen ctrolytes are all within normal limits. He has a normal renal function. The overall fluid balance over the past 24 hours has been +563 mL. The patient is receiving enteral feeding for nutritional support and currently he is on vital HPI the rate of 47 mL an hour. He is currently off clevidipine drip. He is on Levemir insulin 32 units along with a slight scale coverage. He is taking Seroquel 50 mg by mouth twice a day along with Zoloft 50 mg on a daily basis for increased his anxiety, depression and delirium. He has a PEG tube for enteral feeding and nutritional support. He also was given an IVC filter regarding a pulmonary embolism that was diagnosed at time of his admission. Dopplers of lower extremities were essentially negative for any DVT. The IVC filter was inserted on 11/23/2021. 12/01/2021, the patient is being seen seen in follow-up in the intensive care unit. This morning, the patient is resting comfortably in bed. Has night was essentially uneventful. The patient remains on propofol running at 25 mcg/kg per minute. He is quite comfortable with that and this will be gradually weaned off as the patient is still requiring some degree of sedation to maintain sy nchrony with a mechanical ventilator. Note that the patient is post tracheostomy tube insertion. His tracheostomy wound was draining some purulent material yesterday. Cultures were sent. ID was informed. The patient was kept only on Eraxis. Meanwhile, the Bivona tracheostomy tube remains in place. The patient continues to have diffuse bilateral pulmonary infiltrates without evidence of pneumothorax or subcutaneous emphysema. Comparing the chest x-ray from earlier films, there is stable bilateral pulmonary states with some limited interval improvement if any. Meanwhile, the blood gases from today shows a pH of 7.45 with a pCO2 of 45 and a pO2 of 108 and this was done and FiO2 of 30% with a PEEP of 5 tidal volume of 350 and the rate of 24. The patient's peak airway pressure is currently at 24. The patient is not showing any signs of bleeding from his tracheostomy wounds. No evidence of bleeding from the airways. The patient is on no anticoagulants. The patient has an IVC filter in place. Meanwhile, he is still on Decadron 4 mg IV every 24 hours. He is taking Seroquel 50 mg by mouth twice a day to maintain comfort and avoid delirium. He is receiving enteral feeding for nutritional support and currently he is on vital HPI at the rate of 39 mL an hour. The patient is on Levemir insulin 32 units at bedtime along with that he is receiving NovoLog sliding scale coverage. His blood pressure is under adequate control and he has not required any drips. He is on metoprolol 50 mg by mouth twice a day, he is also on Vasotec on an as- needed basis, hydralazine on an as-needed basis and Cozaar at a dose of 100 mg once a day. Blood work from today shows a white cell count 7.1 with a hemoglobin of 8.4, dropping Pasquale compared to yesterday without evidence of any bleed. The platelet count is at 210. Sodium is at 136 with a potassium level of 3.6 and a Cardizem on bicarb is at 33 and is at 16 with a creatinine of 0.3. The patient remains quite weak. He is responsive. He is following commands and communicating. His daughter was at bedside yesterday and I updated her on his condition. Objective - Vital Signs Vital signs: Vital Signs Temp 98.9 F 12/01/21 04:00 Pulse 63 12/01/21 06:00 Resp 24 12/01/21 06:00 BP 157/86 11/28/21 17:00 Pulse Ox 98 12/01/21 06:00 Intake & Output 11/30/21 12/01/21 12/01/21 18:59 06:59 18:59 Intake Total 572.850 973 Output Total 2589 1165 Balance -2016.150 -192 Weight 122.5 kg 121.2 kg Intake: IV 276 253 0.9 Normal Saline @ 20 mL 240 220 /hr KVO Pressure bag 36 33 Intake, IV Titration 171.850 200 Amount propofoL 1,000 mg In 171.850 200 Empty Bag 1 bag @ Titrate IV .Q0M [facility] Rx#: [id number] Tube Feeding 125 430 Other 90 Output: Urine 2589 1165 Other: Voiding Method Indwelling Catheter Indwelling Catheter # Bowel Movements 1 ABP, PAP, CO, CI - Last Documented Arterial Blood Pressure 128/61 - Exam GENERAL EXAM: Alert, restless 61-year-old male patient, the patient remains on a mechanical ventilator , trach tube is in place and the patient has a Bivona tracheostomy tube. The patient is currently on low-dose propofol to control his anxiety and agitation. He is quite successful mechanical ventilator. HEAD: Normocephalic. EYES: Normal reaction of pupils, equal size. NOSE: Clear with pink turbinates. THROAT: No erythema or exudates. He has a Bivona tracheostomy tube in place. Exit site is clean. No evidence of any air leak. No evidence of any bleeding around the tracheostomy stoma. The wound is packed and there is no active bleeding NECK: No masses, no JVD. CHEST: No chest wall deformity. LUNGS: Equal air entry with coarse crackles in the posterior bases. CVS: S1 and S2 normal with no audible murmur, regular rhythm. ABDOMEN: No hepatosplenomegaly, normal bowel sounds, no guarding or rigidity. The patient has also had a PEG tube in place which is currently intact. No evidence of any bleeding around the PEG tube. SPINE: No scoliosis or deformity SKIN: No rashes CENTRAL NERVOUS SYSTEM: No focal deficits, tone is normal in all 4 extremities., The patient opens up his eyes and follows simple commands. He is able to move or flex images without any limitation. EXTREMITIES: There is peripheral edema. No clubbing, no cyanosis. Peripheral pulses are intact. - Labs CBC & Chem 7: 12/01/21 05:00 12/01/21 05:00 Labs: Abnormal Lab Results - Last 24 Hours (Table) 11/30/21 11/30/21 12/01/21 Range/Units 11:38 17:29 00:01 RBC (4.30-5.90) m/uL Hgb (13.0-17.5) gm/dL Hct (39.0-53.0) % MCV (80.0-100.0) fL ABG HCO3 (21-25) mmol/L ABG Total CO2 (19-24) mmol/L ABG O2 Saturation (94-97) % Sodium (137-145) mmol/L Creatinine (0.66-1.25) mg/dL POC Glucose (mg/dL) 171 H 167 H 142 H (75-99) mg/dL 12/01/21 12/01/21 12/01/21 Range/Units 05:00 05:00 05:47 RBC 2.55 L (4.30-5.90) m/uL Hgb 8.4 L (13.0-17.5) gm/dL Hct 26.1 L (39.0-53.0) % MCV 102.3 H (80.0-100.0) fL ABG HCO3 31 H (21-25) mmol/L ABG Total CO2 33 H (19-24) mmol/L ABG O2 Saturation 99.3 H (94-97) % Sodium 136 L (137-145) mmol/L Creatinine 0.34 L (0.66-1.25) mg/dL POC Glucose (mg/dL) (75-99) mg/dL Microbiology - Last 24 Hours (Table) 11/30/21 15:02 Gram Stain - Preliminary Trachea Wound Culture - Preliminary 11/30/21 15:02 Anaerobic Culture - Preliminary Trachea Assessment and Plan Plan: 1 Acute hypoxic respiratory failure related to acute COVID-19 related pneumonia, patient presented to the emergency department on 10/23/2021 with 2 week history of symptoms, patient is outside the window for [facility], he is a non-vaccinated adult. The patient was transferred to the intensive care unit . The patient has been on mechanical ventilator 10/30/2022. The patient underwent tracheostomy tube insertion on 11/10/2021. This was not associated with significant amount of bleeding around the tracheostomy stoma. That examination was discontinued and the patient was given IVC filter in 11/23/2021. The patient is currently off anticoagulants. His chest x-ray is showing d iffuse bilateral pulmonary infiltrates. There is copious amount of rest or secretions around the tracheostomy , thick and purulent. Cultures will be collected. Currently on Eraxis. I believe the tracheostomy wound is infected. There was purulent material coming out of the tracheostomy 1. This was again discussed with infectious disease. His oxygenation is stable. The patient is on FiO2 of 30% and the patient is also on a 5 of PEEP. Chest x-ray findings are also stable. 2 Bilateral pulmonary emboli on computed tomography scan 10/26/2021. He received IVC filter on 11/23/2021 currently on no anticoagulants 3 Diabetes mellitus type 2 with diabetic neuropathy currently on Levemir insulin for blood sugar control 4 right apical pneumothorax, approximately 5%, recovered 5 epistaxis, recovered 6 Obstructive sleep apnea with previous history of UPPP 7 History of right eye melanoma with multiple surgeries 8 Previous history of CVA 9 Rheumatoid arthritis 10 History of gout 11 Previous history of MRSA infection in the wound on his back 12 Mild lactic acidosis, improved with IV hydration 13 Elevated inflammatory markers related to acute COVID-19 pneumonia, improved 14 BPH with previous history of TURP 15 pneumomediastinum and subcutaneous emphysema, complications of COVID 19 related pneumonia, recovered 16 tiny right apical pneumothorax less than 5%, recovered 17 sinus bradycardia, recovered 18 hypertension 19 hyperlipidemia 20 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 I will make an effort also to gradually wean off his propofol to a way lower dose probably somewhere between 5-10 mg/kg/m. Continue Zoloft and Seroquel cultures from the tracheostomy wound pending Continue Decadron at a dose of 4 mg by mouth daily Levemir 32 U and a SS coverage Continue enteral feeding for nutritional support Continued assessment of the supportive care Monitor bleed Condition is critical . Critically care evaluation that was on a more than 30 minutes. May be a candidate for select specialty transfer the later stage.
[2021-12-01] MEDS ORDERED: POTASSIUM BICARBONATE/CIT AC 20 MEQ TABLET.EFF NG-TUBE SCH (08:00)
--- NOTE | 2021-12-01 08:21 | XR ---
EXAMINATION TYPE: XR chest 1V portable DATE OF EXAM: 12/01/2021 COMPARISON: Chest x-ray 11/30/2021 HISTORY: Tracheostomy tube, Covid pneumonia TECHNIQUE: Single frontal view of the chest is obtained. FINDINGS: Tracheostomy tube and right-sided PICC line are again noted and overlying stable positions . Surgical clips are present in the right neck. No evident pneumothorax or pleural effusion. Lung vol umes are low. Bilateral interstitial and patchy density is present within the lungs. Cardiac mediasti nal silhouette is stable. There are overlying leads. IMPRESSION: Findings are similar to prior exam and consistent with patient's history of Covid pneumo omari
[2021-12-01] MEDS ORDERED: QUEtiapine 25 MG TAB PO SCH (10:15)
[2021-12-01] MEDS: PANTOPRAZOLE 40 MG TABLET PO SCH (10:18)
[2021-12-01] MEDS: carBAMazepine 200 MG TAB PO SCH ×2 (10:18→20:24)
[2021-12-01] MEDS: bisacodyL 10 MG SUPP RECTAL SCH ×2 (10:19→20:24)
[2021-12-01] MEDS: METOPROLOL TARTRATE 50 MG TAB PO SCH ×2 (10:19→20:25)
[2021-12-01] MEDS: ASCORBIC ACID 500 MG TAB PO SCH (10:19)
[2021-12-01] MEDS: ZINC SULFATE 220 MG CAP PO SCH (10:19)
[2021-12-01] MEDS: CHOLECALCIFEROL 25 MCG (1000 IU) TABLET PO SCH (10:19)
[2021-12-01] MEDS: DEXAMETHASONE SOD PHOSPHATE 4 MG/ML 1 ML VIAL IVP SCH (10:20)
[2021-12-01] MEDS: LACTULOSE 20 GM/30 ML CUP PO SCH ×2 (10:20→20:25)
[2021-12-01 11:42] LABS: Glucose,Whole Blood 101 mg/dL (75-99)
[2021-12-01] MEDS: ANIDULAFUNGIN 100 MG in SODIUM CHLORIDE 0.9% 100 ML IVPB SCH (13:18)
[2021-12-01] MEDS: amLODIPine 10 MG TAB PO SCH (13:18)
--- NOTE | 2021-12-01 15:21 | P.PN ---
Subjective Progress Note Date: 12/01/21 CHIEF COMPLAINT: COVID-19 pneumonia HISTORY OF PRESENT ILLNESS: Patient is in the ICU on mechanical ventilation. Initial tracheostomy and PEG tube placement on 11/10/2021. He is status post second revision of tracheostomy and partial thyroidectomy on 11/22 due to bleeding from tracheostomy site from Lovenox. He also required bronchoscopy with suctioning of blood clots from the airway. Patient had IVC filter placement done 11/23. Patient's Lovenox was discontinued. Patient has had no further bleeding from tracheostomy site. Patient is tolerating tube feeds. Patient is awake. Patient having drainage from his trach site which is being cultured Patient seen and examined with Dr. daniel PHYSICAL EXAM: VITAL SIGNS: Reviewed. GENERAL: Well-developed in no acute distress. HEENT: Head is atraumatic, normocephalic. Tracheostomy site with drainage ABDOMEN: Soft. Nondistended. Nontender. PEG tube site clean dry and intact NEUROLOGIC: Awake ASSESSMENT: 1. Acute hypoxic respiratory failure secondary to COVID-19 pneumonia requiring mechanical ventilation 2. Severe protein calorie malnutrition 3. Bilateral pulmonary emboli 4. Bleeding at tracheostomy site status post second tracheostomy revision PLAN: -Continue ICU management and supportive care -Continue tube feeds -Continue supportive care for tracheostomy -Continue to monitor Physician Knowledge Engineer note has been reviewed by physician. Signing provider agrees with the documented findings, assessment, and plan of care. Objective - Vital Signs Vital signs: Vital Signs Temp 98.1 F 12/01/21 12:00 Pulse 62 12/01/21 13:00 Resp 24 12/01/21 13:00 BP 157/86 11/28/21 17:00 Pulse Ox 95 12/01/21 13:00 Intake & Output 11/30/21 12/01/21 12/01/21 18:59 06:59 18:59 Intake Total 572.850 973 612.483 Output Total 2589 1165 1065 Balance -2016.150 -192 -452.517 Weight 122.5 kg 121.2 kg Intake: IV 276 253 184 0.9 Normal Saline @ 20 mL 240 220 160 /hr KVO Pressure bag 36 33 24 Intake, IV Titration 171.850 200 116.483 Amount propofoL 1,000 mg In 171.850 200 116.483 Empty Bag 1 bag @ Titrate IV .Q0M [facility] Rx#: [id number] Tube Feeding 125 430 312 Other 90 Output: Urine 2589 1165 1065 Other: Voiding Method Indwelling Catheter Indwelling Catheter Indwelling Catheter # Bowel Movements 1 ABP, PAP, CO, CI - Last Documented Arterial Blood Pressure 155/64 - Labs CBC & Chem 7: 12/01/21 05:00 12/01/21 05:00 Labs: Abnormal Lab Results - Last 24 Hours (Table) 11/30/21 12/01/21 12/01/21 Range/Units 17:29 00:01 05:00 RBC 2.55 L (4.30-5.90) m/uL Hgb 8.4 L (13.0-17.5) gm/dL Hct 26.1 L (39.0-53.0) % MCV 102.3 H (80.0-100.0) fL ABG HCO3 (21-25) mmol/L ABG Total CO2 (19-24) mmol/L ABG O2 Saturation (94-97) % Sodium (137-145) mmol/L Creatinine (0.66-1.25) mg/dL POC Glucose (mg/dL) 167 H 142 H (75-99) mg/dL 12/01/21 12/01/21 12/01/21 Range/Units 05:00 05:47 11:40 RBC (4.30-5.90) m/uL Hgb (13.0-17.5) gm/dL Hct (39.0-53.0) % MCV (80.0-100.0) fL ABG HCO3 31 H (21-25) mmol/L ABG Total CO2 33 H (19-24) mmol/L ABG O2 Saturation 99.3 H (94-97) % Sodium 136 L (137-145) mmol/L Creatinine 0.34 L (0.66-1.25) mg/dL POC Glucose (mg/dL) 101 H (75-99) mg/dL Microbiology - Last 24 Hours (Table) 11/30/21 15:02 Gram Stain - Preliminary Trachea Wound Culture - Preliminary 11/30/21 15:02 Anaerobic Culture - Preliminary Trachea
[2021-12-01] MEDS: PARoxetine 10 MG TAB PO SCH (15:47)
[2021-12-01] MEDS: ALBUTEROL HFA INHALER INHALATION PRN ×2 (15:51→20:22)
--- NOTE | 2021-12-01 17:00 | P.PN ---
Progress Note - Text Progress Note Date: 12/01/21 Chief Complaint: Short of breath This is a pleasant 61-year-old patient, chronic stable medical conditions include diabetes, hypertension, hyperlipidemia, osteoarthritis, peripheral neuropathy, chronic gout. Patient presents with increasing shortness of breath. Cough. Clear sputum. Fever and chills. Tired rundown decrease appetite and diarrhea about 2 times a day. Patient tested positive for COVID-19 on October 09. His initial rapid COVID-19 was negative. In the send out came back positive. Patient did not take the vaccine against COVID-19. He is on 8 L of oxygen this morning. He is outside the window for Remdesivir. Admitted with COVID 19 pneumonitis, acute hypoxic respiratory failure. Started on Decadron. IV fluids. October 26 chest CTA showed bilateral pulmonary embolism. Breathing cord worse in October 30 patient is intubated. Requiring various drips. 2 feeding was started. November 10 patient got a tracheostomy and a PEG tube. Patient subsequently had a large bleed from the tracheostomy site. Desaturated. Tracheostomy had to be removed. Bedside bronchoscopy was done. Large blood loss was removed. Was put back on the ventilator/intubated. Required FFP. November 19 tracheostomy revision done. Lovenox resume. November 22 patient had bleeding a cane around the tracheostomy site. Bedside bronchoscopy was done large amount of blood cause was removed. Tracheostomy was resecured. November [address] Lasara [address] Boothe. In the ICU patient been on different drips including propofol, fentanyl, Nimbex, cleviprex. Amlodipine losartan was added. Because of rash Zosyn was discontinued. Because of MSSA sputum on IV Ancef. Anxiety component. Tried on Seroquel. Psychiatry added Ativan at night. November 30: Ventilator. FiO2 40 and a PEEP of 5. On propofol. Open eyes. Response with smiles. Tube feeding. December 01: ICU. Ventilator. Small doses of propofol. This responded facial expressions. I made the following adjustments yesterday. Resume the home dose of Tegretol he takes for chronic pain., Resumed Elavil, cutback dose of Lyrica 100 mg 3 times a day, stopped Ativan. Patient getting 2 feeding. This morning cutback the dose of Seroquel morning dose to 25 mg. Also added Paxil 10 mg daily. Review of systems: Patient intubated Active Medications Acetaminophen (Acetaminophen Tab 325 Mg Tab) 650 mg PO Q6HR PRN PRN Reason: Mild Pain or Fever > 100.5 Last Admin: 11/26/21 20:17 Dose: 650 mg Documented by: Albuterol Sulfate (Albuterol Hfa Inhaler) 2 puff INHALATION RT-QID PRN PRN Reason: Shortness Of Breath Last Admin: 12/01/21 15:51 Dose: 2 puff Documented by: Amitriptyline HCl (Amitriptyline Hcl 50 Mg Tab) 50 mg PO [facility] Last Admin: 11/30/21 20:17 Dose: 50 mg Documented by: Amlodipine Besylate (Amlodipine 10 Mg Tab) 10 mg PO DAILY@1200 [facility] Last Admin: 12/01/21 13:18 Dose: 10 mg Documented by: Artificial Tears (Artificial Tears-Hypromellose Drops 15 Ml Btl) 2 drops BOTH EYES Q4HR PRN PRN Reason: Dry Eye(s) Ascorbic Acid (Ascorbic Acid 500 Mg Tab) 1,000 mg PO DAILY [facility] Last Admin: 12/01/21 10:19 Dose: 1,000 mg Documented by: Bisacodyl (Bisacodyl 10 Mg Supp) 10 mg RECTAL BID [facility] Last Admin: 12/01/21 10:19 Dose: Not Given Documented by: Carbamazepine (Carbamazepine 200 Mg Tab) 400 mg PO BID [facility] Last Admin: 12/01/21 10:18 Dose: 400 mg Documented by: Cholecalciferol (Cholecalciferol 25 Mcg (1000 Iu) Tablet) 25 mcg PO DAILY [facility] Last Admin: 12/01/21 10:19 Dose: 25 mcg Documented by: Dexamethasone Sodium Phosphate (Dexamethasone Sod Phosphate 4 Mg/Ml 1 Ml Vial) 4 mg IVP DAILY [facility] Last Admin: 12/01/21 10:20 Dose: 4 mg Documented by: Enalaprilat (Enalaprilat 1.25 Mg/Ml 1 Ml Vial) 1.25 mg IVP Q4HR PRN PRN Reason: Blood Pressure - High Last Admin: 11/30/21 06:46 Dose: 1.25 mg Documented by: Haloperidol Lactate (Haloperidol Lactate 5 Mg/Ml 1 Ml Vial) 4 - 8 mg IVP Q6HR PRN PRN Reason: Agitation or Acute Psychosis Last Admin: 11/30/21 03:41 Dose: 8 mg Documented by: Hydralazine HCl (Hydralazine Hcl 20 Mg/Ml 1 Ml Vial) 20 mg IVP Q4HR PRN PRN Reason: Blood Pressure - High SBP >160 Last Admin: 11/30/21 07:13 Dose: 20 mg Documented by: Hydromorphone HCl (Hydromorphone 1 Mg/Ml 1 Ml Syringe) 1 mg IVP Q2HR PRN PRN Reason: Pain Last Admin: 11/30/21 03:15 Dose: 1 mg Documented by: Clevidipine 25 mg/ IV Solution 50 mls @ 2 mls/hr IV .Q24H [facility]; Protocol Last Admin: 12/01/21 00:36 Dose: Not Given Documented by: Dexmedetomidine HCl 400 mcg/ (IV Solution) 100 mls @ 6.42 mls/hr IV .[id number] [facility]; Protocol Last Admin: 12/01/21 05:30 Dose: Not Given Documented by: Propofol 1,000 mg/ IV Solution 100 mls @ 0 mls/hr IV .Q0M [facility]; Protocol Last Titration: 12/01/21 11:30 Dose: 0 mcg/kg/min, 0 mls/hr Documented by: Anidulafungin 100 mg/ Sodium (Chloride) 130 mls @ 84 mls/hr IVPB DAILY@1200 [facility] Insulin Aspart (Insulin Aspart (Novolog) 100 Unit/Ml Vial) 0 unit SQ Q6HR [facility]; Protocol Last Admin: 12/01/21 13:07 Dose: Not Given Documented by: Insulin Detemir (Insulin Detemir (Levemir) 100 Unit/Ml Syr) 32 unit SQ [facility] Last Admin: 11/30/21 20:18 Dose: 32 unit Documented by: Lactulose (Lactulose 20 Gm/30 Ml Cup) 10 gm PO BID [facility] Last Admin: 12/01/21 10:20 Dose: 10 gm Documented by: Lorazepam (Lorazepam 0.5 Mg Tab) 0.5 mg PO [facility] Last Admin: 11/30/21 20:18 Dose: 0.5 mg Documented by: Losartan Potassium (Losartan 50 Mg Tab) 100 mg PO [facility] Last Admin: 11/30/21 20:18 Dose: 100 mg Documented by: Metoprolol Tartrate (Metoprolol Tartrate 50 Mg Tab) 50 mg PO BID [facility] Last Admin: 12/01/21 10:19 Dose: 50 mg Documented by: Miscellaneous Information (Potassium Replacement Protocol 1 Each Misc) 1 each MISCELLANE DAILY PRN; Protocol PRN Reason: Per Protocol Pantoprazole Sodium (Pantoprazole 40 Mg Tablet) 40 mg PO AC-BRKFST [facility] Last Admin: 12/01/21 10:18 Dose: Not Given Documented by: Paroxetine HCl (Paroxetine 10 Mg Tab) 10 mg PO DAILY [facility] Last Admin: 12/01/21 15:47 Dose: 10 mg Documented by: Pregabalin (Pregabalin 100 Mg Cap) 100 mg PO TID [facility] Last Admin: 12/01/21 16:43 Dose: 100 mg Documented by: Quetiapine Fumarate (Quetiapine 50 Mg Tab) 50 mg PO [facility] Quetiapine Fumarate (Quetiapine 25 Mg Tab) 25 mg PO DAILY [facility] Last Admin: 12/01/21 10:30 Dose: 25 mg Documented by: Zinc Sulfate (Zinc Sulfate 220 Mg Cap) 220 mg PO DAILY [facility] Last Admin: 12/01/21 10:19 Dose: 220 mg Documented by: Social history: Patient is on Social Security. Does not smoke or drink alcohol. Patient's daughters family lives with him. Family history: Father at the age of 40 with heart attack Physical examination: VITAL SIGNS: 98.1, 65, 26, 155/65, 95% on ventilator GENERAL: Laying in bed, . PEG tube . Tracheostomy tube. LUNGS: Respiratory rate increased,. PSYCH: Unable to assess NEURO: Eyes open. Response with facial expressions Rest of the exam per nursing and pulmonary INVESTIGATIONS, reviewed in the clinical context: December 01: White count 7.1 hemoglobin 8.4 platelets 210 potassium 3.6 c reatinine 0.34 November 30: White count 11.2 hemoglobin 9.6 platelets 279 potassium 4.1 creatinine 0.38 pH 7.48 Blood culture positive for Staphylococcus epidermidis/coagulates negative. Sputum culture: MSSA, Bibi albicans November 17: White count 16.9 hemoglobin 11.1 potassium 3.3 creatinine 0.4 November 16: White count 17 hemoglobin 8.1 potassium 3.2 creatinine 0.5 to October 28: D-dimer 13.4 to October 26: D-dimer 8.48 CRP 24 Chest CTA [October 26: biLateral pulmonary embolism Doppler ultrasound lower extremity: Negative for DVT October 24: White count 9.7 hemoglobin 15.3 platelets 221 d-dimer 1.93 progression 4.2 creatinine 0.71 CRP 5.5 pro-calcitonin 0.08 White count 9.9 hemoglobin 16 platelets 234 d-dimer 0.98 sodium 141 potassium 3.4 creatinine 0.81 Lactic acid 2.9 LDH 1422 CRP 7.5 EKG tracing personally reviewed by me-normal sinus rhythm. Nonspecific ST segment changes. Chest x-ray film personally reviewed by me-bilateral infiltrates Assessment and plan: -Acute severe COVID 19 pneumonitis in a patient who did not take the COVID-19 vaccine: Slow to respond Dexamethasone, vitamin C, vitamin D, zinc. outside the window for Remdesivir. -Acute hypoxic respiratory failure from COVID-19: Slow to respond intubated October 30. FiO2 45/ 5 -Metabolic alkalosis, likely from volume contraction from IV Lasix: Better IV Lasix discontinued -Active bleeding around tracheostomy into the trachea and lungs. Status post bronchoscopy. Evacuation of large amounts of blood clot. Tracheostomy removed. Patient reintubated. revision tracheostomy tube - November 19. Lovenox was resumed. November 22: At the tracheostomy site: re- bleeding with blood clots followed by bronchoscopy. Revision of tracheostomy done. -Bilateral pulmonary embolism secondary to COVID-19 Eliquis -discontinued because of bleeding. Initially No Lakia filter per vascular. Lovenox resumed after revision tracheostomy. Lovenox discontinued, because of bleeding: November 22. Lasara filter placed by Dr. Boothe on November 23 -Essential hypertension: Labile. Likely anxiety component withdrawal component from medications Lopressor 50 mg twice a day, amlodipine 10 mg a day. Cozaar 100 mg daily at bedtime -Diabetes mellitus type 2, on oral hypoglycemic, uncontrolled with hyperglycemia Levemir 32 units daily at bedtime. Follow Accu-Cheks -Chronic insomnia for medical conditions Elavil 50 mg daily at bedtime -Hyperlipidemia TriCor 48 mg daily -Hypoalbuminemia Acute phase reactant -Pneumonia with cultures positive for MSSA and Bibi IV Ancef and IVEraxis -Obstructive sleep apnea On CPAP at home -Pneumomediastinum and subcutis emphysema complications of COVID-19/pneumonia. - right upper apical pneumothorax less than 5%. -Diabetic peripheral neuropathy Decrease Lyrica 100 mg 3 times a day -Full code -Chronic neck pain for surgery for removal of lymph nodes Tegretol 400 mg twice a day . -Anxiety disorder Add Paxil 10 mg daily Morning dose of Seroquel cutback to 25 mg. Paxil 10 mg added. Spoke to the family the bedside. Try to communicate more with the patient. We will cutback a.m. dose of Seroquel to 12.5 starting tomorrow. tube feeding to continue.
[2021-12-01 17:44] LABS: Glucose,Whole Blood 161 mg/dL (75-99)
[2021-12-01] MEDS: LOSARTAN 50 MG TAB PO SCH (18:12)
[2021-12-01] MEDS: INSULIN DETEMIR (LEVEMIR) 100 UNIT/ML SYR SQ SCH (20:24)
[2021-12-01] MEDS: AMITRIPTYLINE HCL 50 MG TAB PO SCH (20:24)
[2021-12-01] MEDS ORDERED: QUEtiapine 50 MG TAB PO SCH (21:00)
[2021-12-01] MEDS ORDERED: VANCOMYCIN IV PER PHARMACY 1 EACH MISC MISCELLANE PRN (21:40)
--- NOTE | 2021-12-01 21:43 | P.PN ---
Subjective Progress Note Date: 12/01/21 Principal diagnosis: Pneumonia, rash, leukocytosis Patient is a 61-year male admitted to the hospital October 23, 2021 patient diagnosed with COVID-19 pneumonia did have a respiratory failure requiring intubation failed to be extubated status post trach and PEG on November 10, 2021 patient also have a component of secondary to pneumonia with MSSA patient has received more than 2 weeks course of Zosyn which was discontinued 11/17/2021 because of rash. On today's evaluation that is 12/01/2021 the patient remains to be afebrile, patient is hemodynamically stable not requiring any pressor support, the patient FiO2 is down to 30 %,no significant purulent secretion through the ET however apparently there was some purulent secretion from his trach site which has been cultured yesterday and I was not notified by the nursing staff Objective - Vital Signs Vital signs: Vital Signs Temp 99.0 F 12/01/21 20:00 Pulse 101 H 12/01/21 21:00 Resp 24 12/01/21 21:00 BP 153/89 12/01/21 21:00 Pulse Ox 95 12/01/21 21:00 Intake & Output 12/01/21 12/01/21 12/02/21 06:59 18:59 06:59 Intake Total 973 798.483 216 Output Total 1165 1415 660 Balance -192 -616.517 -444 Weight 121.2 kg Intake: IV 253 253 69 0.9 Normal Saline @ 20 mL 220 220 60 /hr KVO Pressure bag 33 33 9 Intake, IV Titration 200 116.483 Amount propofoL 1,000 mg In 200 116.483 Empty Bag 1 bag @ Titrate IV .Q0M [facility] Rx#: [id number] Tube Feeding 430 429 117 Other 90 30 Output: Urine 1165 1415 660 Other: Voiding Method Indwelling Catheter Indwelling Catheter ABP, PAP, CO, CI - Last Documented Arterial Blood Pressure 181/81 - Exam GENERAL DESCRIPTION: Middle-age male intubated on the vent through the trach RESPIRATORY SYSTEM: Unlabored breathing , decreased breath sounds at bases HEART: S1 S2 regular rate and rhythm , ABDOMEN: Soft , no tenderness EXTREMITIES: No edema feet - Labs CBC & Chem 7: 12/01/21 05:00 12/01/21 05:00 Labs: Abnormal Lab Results - Last 24 Hours (Table) 12/01/21 12/01/21 12/01/21 Range/Units 00:01 05:00 05:00 RBC 2.55 L (4.30-5.90) m/uL Hgb 8.4 L (13.0-17.5) gm/dL Hct 26.1 L (39.0-53.0) % MCV 102.3 H (80.0-100.0) fL ABG HCO3 (21-25) mmol/L ABG Total CO2 (19-24) mmol/L ABG O2 Saturation (94-97) % Sodium 136 L (137-145) mmol/L Creatinine 0.34 L (0.66-1.25) mg/dL POC Glucose (mg/dL) 142 H (75-99) mg/dL 12/01/21 12/01/21 12/01/21 Range/Units 05:47 11:40 17:43 RBC (4.30-5.90) m/uL Hgb (13.0-17.5) gm/dL Hct (39.0-53.0) % MCV (80.0-100.0) fL ABG HCO3 31 H (21-25) mmol/L ABG Total CO2 33 H (19-24) mmol/L ABG O2 Saturation 99.3 H (94-97) % Sodium (137-145) mmol/L Creatinine (0.66-1.25) mg/dL POC Glucose (mg/dL) 101 H 161 H (75-99) mg/dL Microbiology - Last 24 Hours (Table) 11/30/21 15:02 Gram Stain - Preliminary Trachea Wound Culture - Preliminary Group D Enterococcus 11/30/21 15:02 Anaerobic Culture - Preliminary Trachea Assessment and Plan (1) Fever Current Visit: Yes Status: Acute Code(s): R50.9 - FEVER, UNSPECIFIED SNOMED Code(s): 310315409 (2) Rash Current Visit: Yes Status: Acute Code(s): R21 - RASH AND OTHER NONSPECIFIC SKIN ERUPTION SNOMED Code(s): 729405541 (3) COVID-19 Current Visit: Yes Status: Acute Code(s): U07.1 - COVID-19 SNOMED Code(s): 446643086 Plan: 1- patient with low-grade fever and some purulent drainage from his trach site cultures are now showing group D enterococcus in this patient who did have a rash with Zosyn, we will add vancomycin pharmacy to dose and adjust antibiotic further on the basis of final culture Time with Patient: Less than 30
[2021-12-01] MEDS ORDERED: VANCOMYCIN 2,250 MG in SODIUM CHLORIDE 0.9% 500 ML 500 ML IVPB ONE (23:00)
[2021-12-01] MEDS: ENALAPRILAT 1.25 MG/ML 1 ML VIAL IVP PRN (23:16)
[2021-12-02 00:06] LABS: Glucose,Whole Blood 132 mg/dL (75-99)
[2021-12-02] MEDS: INSULIN ASPART (NovoLOG) 100 UNIT/ML VIAL SQ SCH ×4 (01:06→17:59)
[2021-12-02] MEDS: CLEVIDIPINE BUTYRATE 25 MG in EMPTY BAG 1 BAG IV SCH (01:06)
[2021-12-02] MEDS: hydrALAZINE HCL 20 MG/ML 1 ML VIAL IVP PRN ×2 (02:11→17:30)
[2021-12-02 04:57] LABS: HCT 30.6 % (39.0-53.0); HGB 10.1 gm/dL (13.0-17.5); MCH 33.4 pg (25.0-35.0); MCV 101.3 fL (80.0-100.0); Macrocytosis Slight; Mean Platelet Volume 8.5; Platelet Count 262 k/uL (150-450); RBC 3.02 m/uL (4.30-5.90); RDW 14.4 % (11.5-15.5)
[2021-12-02 05:15] LABS: African American GFR (CKD) >90 (>60 ml/min/1.73 sqM); Anion Gap 6 mmol/L; Blood Urea Nitrogen 14 mg/dL (9-20); Calcium 8.8 mg/dL (8.4-10.2); Carbon Dioxide 26 mmol/L (22-30); Chloride 102 mmol/L (98-107); Glucose 135 mg/dL (74-99); Non-African American GFR(CKD) >90 (>60 ml/min/1.73 sqM); Potassium 3.7 mmol/L (3.5-5.1); Sodium 134 mmol/L (137-145)
[2021-12-02 05:41] LABS: ABG Base Excess 5.6 mmol/L; ABG HCO3 29 mmol/L (21-25); ABG Oxygen Saturation 99.3 % (94-97); ABG PCO2 37 mmHg (35-45); ABG PO2 112 mmHg (83-108); ABG TCO2 30 mmol/L (19-24); Allen Test Performed? Yes
[2021-12-02 05:51] LABS: Glucose,Whole Blood 127 mg/dL (75-99)
[2021-12-02] MEDS: VANCOMYCIN 1,750 MG in SODIUM CHLORIDE 0.9% 500 ML 500 ML IVPB SCH ×2 (06:37→15:23)
[2021-12-02] MEDS ORDERED: POTASSIUM BICARBONATE/CIT AC 20 MEQ TABLET.EFF NG-TUBE SCH (07:00)
[2021-12-02] MEDS: METOPROLOL TARTRATE 50 MG TAB PO SCH (08:37)
[2021-12-02] MEDS: bisacodyL 10 MG SUPP RECTAL SCH ×2 (08:37→20:18)
[2021-12-02] MEDS: ZINC SULFATE 220 MG CAP PO SCH (08:37)
[2021-12-02] MEDS: CHOLECALCIFEROL 25 MCG (1000 IU) TABLET PO SCH (08:37)
[2021-12-02] MEDS: LACTULOSE 20 GM/30 ML CUP PO SCH ×2 (08:38→20:24)
[2021-12-02] MEDS: PANTOPRAZOLE 40 MG/10 ML VIAL IVP SCH (08:38)
[2021-12-02] MEDS: ASCORBIC ACID 500 MG TAB PO SCH (08:38)
[2021-12-02] MEDS: carBAMazepine 200 MG TAB PO SCH ×2 (08:38→20:26)
[2021-12-02] MEDS: PREGABALIN 100 MG CAP PO SCH ×3 (08:38→20:26)
[2021-12-02] MEDS: DEXAMETHASONE SOD PHOSPHATE 4 MG/ML 1 ML VIAL IVP SCH (08:38)
[2021-12-02] MEDS: PARoxetine 10 MG TAB PO SCH (08:40)
[2021-12-02] MEDS ORDERED: QUEtiapine 25 MG TAB PO SCH ×2 (09:00→21:00)
--- NOTE | 2021-12-02 09:28 | P.PN ---
Subjective Progress Note Date: 12/02/21 61-year-old male patient with past medical history of diabetes mellitus type 2 with diabetic neuropathy, hypertension, hyperlipidemia, previous history of CVA, rheumatoid arthritis, obstructive sleep apnea S/P UPPP, history of right eye melanoma with previous surgeries, BPH with previous TURP, chronic lower extremity edema, cellulitis, gout, presented to the emergency department on 10/23/2021 at 240 3 in the morning with complaints of severe shortness of breath, cough, congestion. Patient states he has had symptoms since October 09, initially was tested via rapid COVID-19 PCR test which was negative however the send out PCR test came back positive. Patient was transferred to the intensive care on 10/29/2022, and was intubated in next day on 10/30/2022. The patient was given a tracheostomy tube on 11/10/2021. His course has been complicated by tracheostomy tube eroding his surgical wound and recurrent bleeding from the surgical wound, and based on that the patient was taken off anticoagulation the patient was given an IVC filter for pulmonary embolism. Currently he is on no anticoagulants On today's evaluation of 11/30/2021, the patient is awake and alert and he is communicating. He remains profoundly weak. The weakness is in all 4 extremities. The patient remains on a mechanical ventilator. This morning, he is on assist control mode at the rate of 24, tidal volume of 350, FiO2 of 40% with a PEEP of 8. The patient is currently on propofol at 30 mcg/kg per minute. This is needed to contain his sedation. He was on Precedex yesterday this was switched to propofol to more effectively control his sedation. Nevertheless, despite being on propofol, he is wide awake. His chest x-ray still showing bilateral pulmonary infiltrates, diffuse. The patient has a large tracheostomy site wound which is not bleeding at this point in time. Nevertheless, the wound is covered with purulent respiratory secretions that are greenish and thick. I aspirated the majority of the purulent material today. Cultures will be sent. Note that the patient was on a combination of Zosyn and Eraxis. Zosyn was discontinued after completing a two-week course of antibiotics. Infectious diseases on the case. The blood gases from today showing a pH of 7.48 with a pCO2 of 42 and pO2 156. This was on FiO2 of 40% PEEP white cell count is 11.2 with a hemoglobin of 9.6. Rest of the praveen ctrolytes are all within normal limits. He has a normal renal function. The overall fluid balance over the past 24 hours has been +563 mL. The patient is receiving enteral feeding for nutritional support and currently he is on vital HPI the rate of 47 mL an hour. He is currently off clevidipine drip. He is on Levemir insulin 32 units along with a slight scale coverage. He is taking Seroquel 50 mg by mouth twice a day along with Zoloft 50 mg on a daily basis for increased his anxiety, depression and delirium. He has a PEG tube for enteral feeding and nutritional support. He also was given an IVC filter regarding a pulmonary embolism that was diagnosed at time of his admission. Dopplers of lower extremities were essentially negative for any DVT. The IVC filter was inserted on 11/23/2021. 12/01/2021, the patient is being seen seen in follow-up in the intensive care unit. This morning, the patient is resting comfortably in bed. Has night was essentially uneventful. The patient remains on propofol running at 25 mcg/kg per minute. He is quite comfortable with that and this will be gradually weaned off as the patient is still requiring some degree of sedation to maintain sy nchrony with a mechanical ventilator. Note that the patient is post tracheostomy tube insertion. His tracheostomy wound was draining some purulent material yesterday. Cultures were sent. ID was informed. The patient was kept only on Eraxis. Meanwhile, the Bivona tracheostomy tube remains in place. The patient continues to have diffuse bilateral pulmonary infiltrates without evidence of pneumothorax or subcutaneous emphysema. Comparing the chest x-ray from earlier films, there is stable bilateral pulmonary states with some limited interval improvement if any. Meanwhile, the blood gases from today shows a pH of 7.45 with a pCO2 of 45 and a pO2 of 108 and this was done and FiO2 of 30% with a PEEP of 5 tidal volume of 350 and the rate of 24. The patient's peak airway pressure is currently at 24. The patient is not showing any signs of bleeding from his tracheostomy wounds. No evidence of bleeding from the airways. The patient is on no anticoagulants. The patient has an IVC filter in place. Meanwhile, he is still on Decadron 4 mg IV every 24 hours. He is taking Seroquel 50 mg by mouth twice a day to maintain comfort and avoid delirium. He is receiving enteral feeding for nutritional support and currently he is on vital HPI at the rate of 39 mL an hour. The patient is on Levemir insulin 32 units at bedtime along with that he is receiving NovoLog sliding scale coverage. His blood pressure is under adequate control and he has not required any drips. He is on metoprolol 50 mg by mouth twice a day, he is also on Vasotec on an as- needed basis, hydralazine on an as-needed basis and Cozaar at a dose of 100 mg once a day. Blood work from today shows a white cell count 7.1 with a hemoglobin of 8.4, dropping Pasquale compared to yesterday without evidence of any bleed. The platelet count is at 210. Sodium is at 136 with a potassium level of 3.6 and a Cardizem on 05 bicarb is at 33 and is at 16 with a creatinine of 0.3. The patient remains quite weak. He is responsive. He is following commands and communicating. His daughter was at bedside yesterday and I updated her on his condition. 12/02/2021, the patient is awake. Weak especially in his lower extremities. Able to raise his arms against gravity. He was taken off the propofol yesterday and his currently off sedation. Following commands. Opens his eyes spontaneously. Resting comfortably on a mechanical ventilator. This morning, he is an assist-control mode with a rate of 24, tidal volume of 350, FiO2 of 30% and a PEEP of 5. Chest x-ray remains unchanged with bilateral pulmonary infiltrates. The patient has a Bivona tracheostomy tube in place. As mentioned earlier, there is a 1 infection. The patient was having purulent discharge from the surgical wound site at the level of his tracheostomy. Further cultures showed enterococcus group D and the patient was started on vancomycin by infectious disease. He is afebrile. He is hemodynamically stable. He is resting comfortably in bed. Blood gases from today shows a pH of 7.5 with a pCO2 of 37 and pO2 of 112. Weaning parameters will be checked and the patient will be switched to a pressure support mode of mechanical ventilation. No bleeding complications. The patient has a stable hemoglobin of 10.1. The patient was given an IVC filter in place regarding his previous pulmonary embolism. His blood pressure is under better control. Is currently on a combination of Cozaar 100 mg by mouth daily, Lopressor 50 mg by mouth twice a day and Norvasc 5 mg by mouth daily. The patient is also taking hydralazine 20 mg IV every 4 hours on a when necessary basis for a systolic blood pressure above 160. The patient is currently off the Celebrex drip. He is on Levemir insulin 30 units along with a sliding scale coverage for blood sugar control. He is on IV Protonix. As mentioned, he has no anticoagulation. He'll be off ered compression devices to his lower extremities bilaterally. He continues to receive enteral feeding for nutritional support. He is currently on enteral feeding at the rate of 39 mL an hour of vital high protein. IV fluids are currently at KVO. We are in the process of making arrangements for this patient to be transferred to select specialty. The primary care physician is already made some adjustments on his medications and the patient is currently on Seroquel 50 mg at bedtime and 12.5 mg in the morning and he was also restarted back on his amitriptyline 50 mg at bedtime. Objective - Vital Signs Vital signs: Vital Signs Temp 99.1 F 12/02/21 08:00 Pulse 94 12/02/21 09:00 Resp 27 H 12/02/21 09:00 BP 163/95 12/02/21 09:00 Pulse Ox 96 12/02/21 09:00 Intake & Output 12/01/21 12/02/21 12/02/21 18:59 06:59 18:59 Intake Total 489.284 0029 286 Output Total 1415 1760 350 Balance -616.517 -466 -64 Weight 118.4 kg Intake: IV 253 736 69 0.9 Normal Saline @ 20 mL 220 200 60 /hr KVO Pressure bag 33 36 9 Vancomycin 2,250 mg In 500 Sodium Chloride 0.9% 500 ml 500 ml @ 167 mls/hr IVPB ONCE ONE Rx#: [id number] Intake, IV Titration 116.483 Amount propofoL 1,000 mg In 116.483 Empty Bag 1 bag @ Titrate IV .Q0M [facility] Rx#: [id number] Tube Feeding 429 468 117 Other 90 100 Output: Urine 1415 1760 350 Other: Voiding Method Indwelling Catheter Indwelling Catheter Indwelling Catheter ABP, PAP, CO, CI - Last Documented Arterial Blood Pressure 190/81 - Exam GENERAL EXAM: Alert, restless 61-year-old male patient, the patient remains on a mechanical ventilator , trach tube is in place and the patient has a Bivona tracheostomy tube. The patient is currently on low-dose propofol to control his anxiety and agitation. He is quite successful mechanical ventilator. HEAD: Normocephalic. EYES: Normal reaction of pupils, equal size. NOSE: Clear with pink turbinates. THROAT: No erythema or exudates. He has a Bivona tracheostomy tube in place. Exit site is clean. No evidence of any air leak. No evidence of any bleeding around the tracheostomy stoma. The wound is packed and there is no active bleeding NECK: No masses, no JVD. CHEST: No chest wall deformity. LUNGS: Equal air entry with coarse crackles in the posterior bases. CVS: S1 and S2 normal with no audible murmur, regular rhythm. ABDOMEN: No hepatosplenomegaly, normal bowel sounds, no guarding or rigidity. The patient has also had a PEG tube in place which is currently intact. No evidence of any bleeding around the PEG tube. SPINE: No scoliosis or deformity SKIN: No rashes CENTRAL NERVOUS SYSTEM: No focal deficits, tone is normal in all 4 extremities., The patient opens up his eyes and follows simple commands. He is able to move or flex images without any limitation. EXTREMITIES: There is peripheral edema. No clubbing, no cyanosis. Peripheral pulses are intact. - Labs CBC & Chem 7: 12/02/21 04:15 12/02/21 04:15 Labs: Abnormal Lab Results - Last 24 Hours (Table) 12/01/21 12/01/21 12/02/21 Range/Units 11:40 17:43 00:04 WBC (3.8-10.6) k/uL RBC (4.30-5.90) m/uL Hgb (13.0-17.5) gm/dL Hct (39.0-53.0) % MCV (80.0-100.0) fL ABG pH (7.35-7.45) ABG pO2 (83-108) mmHg ABG HCO3 (21-25) mmol/L ABG Total CO2 (19-24) mmol/L ABG O2 Saturation (94-97) % Sodium (137-145) mmol/L Creatinine (0.66-1.25) mg/dL Glucose (74-99) mg/dL POC Glucose (mg/dL) 101 H 161 H 132 H (75-99) mg/dL 12/02/21 12/02/21 12/02/21 Range/Units 04:15 04:15 05:37 WBC 11.0 H (3.8-10.6) k/uL RBC 3.02 L (4.30-5.90) m/uL Hgb 10.1 L (13.0-17.5) gm/dL Hct 30.6 L (39.0-53.0) % MCV 101.3 H (80.0-100.0) fL ABG pH 7.50 H (7.35-7.45) ABG pO2 112 H (83-108) mmHg ABG HCO3 29 H (21-25) mmol/L ABG Total CO2 30 H (19-24) mmol/L ABG O2 Saturation 99.3 H (94-97) % Sodium 134 L (137-145) mmol/L Creatinine 0.36 L (0.66-1.25) mg/dL Glucose 135 H (74-99) mg/dL POC Glucose (mg/dL) (75-99) mg/dL 12/02/21 Range/Units 05:48 WBC (3.8-10.6) k/uL RBC (4.30-5.90) m/uL Hgb (13.0-17.5) gm/dL Hct (39.0-53.0) % MCV (80.0-100.0) fL ABG pH (7.35-7.45) ABG pO2 (83-108) mmHg ABG HCO3 (21-25) mmol/L ABG Total CO2 (19-24) mmol/L ABG O2 Saturation (94-97) % Sodium (137-145) mmol/L Creatinine (0.66-1.25) mg/dL Glucose (74-99) mg/dL POC Glucose (mg/dL) 127 H (75-99) mg/dL Microbiology - Last 24 Hours (Table) 11/30/21 15:02 Gram Stain - Preliminary Trachea Wound Culture - Preliminary Group D Enterococcus Assessment and Plan Plan: 1 Acute hypoxic respiratory failure related to acute COVID-19 related pneumonia, patient presented to the emergency department on 10/23/2021 with 2 week history of symptoms, patient is outside the window for Remdesivir, he is a non-vaccinated adult. The patient was transferred to the intensive care unit . The patient has been on mechanical ventilator 10/30/2022. The patient underwent tracheostomy tube insertion on 11/10/2021. This was not associated with significant amount of bleeding around the tracheostomy stoma. That examination was discontinued and the patient was given IVC filter in 11/23/2021. The patient is currently off anticoagulants. His chest x-ray is showing diffuse bilateral pulmonary infiltrates. There is copious amount of rest or secretions around the tracheostomy , thick and purulent. Cultures will be collected. The cultures do not a positive for enterococcus group D and the ch[place] ent was also vancomycin. The patient has adequate blood gases and oxygenation is x-ray findings are stable for now. The patient is hemodynamically stable and the patient's blood pressure is under better control. 2 Bilateral pulmonary emboli on computed tomography scan 10/26/2021. He received IVC filter on 11/23/2021 currently on no anticoagulants 3 Diabetes mellitus type 2 with diabetic neuropathy currently on Levemir insulin for blood sugar control 4 right apical pneumothorax, approximately 5%, recovered 5 epistaxis, recovered 6 Obstructive sleep apnea with previous history of UPPP 7 History of right eye melanoma with multiple surgeries 8 Previous history of CVA 9 Rheumatoid arthritis 10 History of gout 11 Previous history of MRSA infection in the wound on his back 12 Mild lactic acidosis, improved with IV hydration 13 Elevated inflammatory markers related to acute COVID-19 pneumonia, improved 14 BPH with previous history of TURP 15 pneumomediastinum and subcutaneous emphysema, complications of COVID 19 related pneumonia, recovered 16 tiny right apical pneumothorax less than 5%, recovered 17 sinus bradycardia, recovered 18 hypertension 19 hyperlipidemia 20 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 Keep the FiO2 at 30% Vancomycin has been started by infectious disease Continue Elavil and Seroquel Continue Decadron at a dose of 4 mg by mouth daily Levemir 32 U and a SS coverage Continue enteral feeding for nutritional support Continued assessment of the supportive care Monitor bleed Patient is ready to be transferred to for further strengthening, exercise and weaning. dust box worker, Mr. Cas Harman is on the case. Condition is critical . Critically care evaluation that was on a more than 30 minutes. Time with Patient: Greater than 30
--- NOTE | 2021-12-02 09:57 | XR ---
EXAMINATION TYPE: XR chest 1V portable DATE OF EXAM: 12/02/2021 COMPARISON: Chest x-ray 12/01/2021 HISTORY: Tracheostomy tube, Covid pneumonia TECHNIQUE: Single frontal view of the chest is obtained. FINDINGS: Tracheostomy tube is overlying the tracheal air column. Surgical clips are present in the right neck. There is a right-sided PICC line with the distal tip overlying the superior vena cava. Th ere is no evident pneumothorax or pleural effusion. Lung volumes are low. Cardiac mediastinal silhoue tte is stable. Patchy density within the lungs bilaterally is again noted. There are overlying artifa cts. IMPRESSION: Similar findings to prior exam.
[2021-12-02 11:33] LABS: Glucose,Whole Blood 195 mg/dL (75-99)
[2021-12-02 12:26] VITALS: BMI 39.6
[2021-12-02] MEDS: amLODIPine 10 MG TAB PO SCH (12:41)
[2021-12-02] MEDS: ANIDULAFUNGIN 100 MG in SODIUM CHLORIDE 0.9% 100 ML IVPB SCH (12:41)
[2021-12-02] MEDS: DEXMEDETOMIDINE/0.9% NACL(PMX) 400 MCG in EMPTY BAG 1 BAG IV SCH (12:42)
[2021-12-02] MEDS: ALBUTEROL HFA INHALER INHALATION PRN ×2 (15:53→19:49)
--- NOTE | 2021-12-02 15:57 | P.PN ---
Subjective Progress Note Date: 12/02/21 CHIEF COMPLAINT: COVID-19 pneumonia HISTORY OF PRESENT ILLNESS: Patient is in the ICU on mechanical ventilation. Initial tracheostomy and PEG tube placement on 11/10/2021. He is status post second revision of tracheostomy and partial thyroidectomy on 11/22 due to bleeding from tracheostomy site from Lovenox. He also required bronchoscopy with suctioning of blood clots from the airway. Patient had IVC filter placement done 11/23. Patient's Lovenox was discontinued. Patient has had no further bleeding from tracheostomy site. Patient is tolerating tube feeds. Patient is awake. Patient seen and examined with Dr. daniel PHYSICAL EXAM: VITAL SIGNS: Reviewed. GENERAL: Well-developed in no acute distress. HEENT: Head is atraumatic, normocephalic. Tracheostomy site with drainage ABDOMEN: Soft. Nondistended. Nontender. PEG tube site clean dry and intact NEUROLOGIC: Awake ASSESSMENT: 1. Acute hypoxic respiratory failure secondary to COVID-19 pneumonia requiring mechanical ventilation 2. Severe protein calorie malnutrition 3. Bilateral pulmonary emboli 4. Bleeding at tracheostomy site status post second tracheostomy revision PLAN: -Continue ICU management and supportive care -Continue tube feeds -Continue supportive care for tracheostomy -Continue to monitor Physician Newspaper Managing Editor note has been reviewed by physician. Signing provider agrees with the documented findings, assessment, and plan of care. Objective - Vital Signs Vital signs: Vital Signs Temp 99.1 F 12/02/21 12:00 Pulse 82 12/02/21 15:00 Resp 24 12/02/21 15:00 BP 153/89 12/02/21 15:00 Pulse Ox 96 12/02/21 15:00 Intake & Output 12/01/21 12/02/21 12/02/21 18:59 06:59 18:59 Intake Total 689.235 2402 670 Output Total 1415 1760 2075 Balance -616.517 -932 -1405 Weight 118.4 kg 118.4 kg Intake: IV 253 736 207 0.9 Normal Saline @ 20 mL 220 200 180 /hr KVO Pressure bag 33 36 27 Vancomycin 2,250 mg In 500 Sodium Chloride 0.9% 500 ml 500 ml @ 167 mls/hr IVPB ONCE ONE Rx#: [id number] Intake, IV Titration 116.483 Amount propofoL 1,000 mg In 116.483 Empty Bag 1 bag @ Titrate IV .Q0M [facility] Rx#: [id number] Tube Feeding 429 468 363 Other 90 100 Output: Urine 1415 1760 2075 Other: Voiding Method Indwelling Catheter Indwelling Catheter Indwelling Catheter ABP, PAP, CO, CI - Last Documented Arterial Blood Pressure 182/79 - Labs CBC & Chem 7: 12/02/21 04:15 12/02/21 04:15 Labs: Abnormal Lab Results - Last 24 Hours (Table) 12/01/21 12/02/21 12/02/21 Range/Units 17:43 00:04 04:15 WBC 11.0 H (3.8-10.6) k/uL RBC 3.02 L (4.30-5.90) m/uL Hgb 10.1 L (13.0-17.5) gm/dL Hct 30.6 L (39.0-53.0) % MCV 101.3 H (80.0-100.0) fL ABG pH (7.35-7.45) ABG pO2 (83-108) mmHg ABG HCO3 (21-25) mmol/L ABG Total CO2 (19-24) mmol/L ABG O2 Saturation (94-97) % Sodium (137-145) mmol/L Creatinine (0.66-1.25) mg/dL Glucose (74-99) mg/dL POC Glucose (mg/dL) 161 H 132 H (75-99) mg/dL 12/02/21 12/02/21 12/02/21 Range/Units 04:15 05:37 05:48 WBC (3.8-10.6) k/uL RBC (4.30-5.90) m/uL Hgb (13.0-17.5) gm/dL Hct (39.0-53.0) % MCV (80.0-100.0) fL ABG pH 7.50 H (7.35-7.45) ABG pO2 112 H (83-108) mmHg ABG HCO3 29 H (21-25) mmol/L ABG Total CO2 30 H (19-24) mmol/L ABG O2 Saturation 99.3 H (94-97) % Sodium 134 L (137-145) mmol/L Creatinine 0.36 L (0.66-1.25) mg/dL Glucose 135 H (74-99) mg/dL POC Glucose (mg/dL) 127 H (75-99) mg/dL 12/02/21 Range/Units 11:31 WBC (3.8-10.6) k/uL RBC (4.30-5.90) m/uL Hgb (13.0-17.5) gm/dL Hct (39.0-53.0) % MCV (80.0-100.0) fL ABG pH (7.35-7.45) ABG pO2 (83-108) mmHg ABG HCO3 (21-25) mmol/L ABG Total CO2 (19-24) mmol/L ABG O2 Saturation (94-97) % Sodium (137-145) mmol/L Creatinine (0.66-1.25) mg/dL Glucose (74-99) mg/dL POC Glucose (mg/dL) 195 H (75-99) mg/dL Microbiology - Last 24 Hours (Table) 11/30/21 15:02 Gram Stain - Preliminary Trachea Wound Culture - Preliminary Group D Enterococcus
[2021-12-02 17:37] LABS: Glucose,Whole Blood 171 mg/dL (75-99)
--- NOTE | 2021-12-02 19:56 | P.PN ---
Progress Note - Text Progress Note Date: 12/02/21 Chief Complaint: Short of breath This is a pleasant 61-year-old patient, chronic stable medical conditions include diabetes, hypertension, hyperlipidemia, osteoarthritis, peripheral neuropathy, chronic gout. Patient presents with increasing shortness of breath. Cough. Clear sputum. Fever and chills. Tired rundown decrease appetite and diarrhea about 2 times a day. Patient tested positive for COVID-19 on October 09. His initial rapid COVID-19 was negative. In the send out came back positive. Patient did not take the vaccine against COVID-19. He is on 8 L of oxygen this morning. He is outside the window for Remdesivir. Admitted with COVID 19 pneumonitis, acute hypoxic respiratory failure. Started on Decadron. IV fluids. October 26 chest CTA showed bilateral pulmonary embolism. Breathing cord worse in October 30 patient is intubated. Requiring various drips. 2 feeding was started. November 10 patient got a tracheostomy and a PEG tube. Patient subsequently had a large bleed from the tracheostomy site. Desaturated. Tracheostomy had to be removed. Bedside bronchoscopy was done. Large blood loss was removed. Was put back on the ventilator/intubated. Required FFP. November 19 tracheostomy revision done. Lovenox resume. November 22 patient had bleeding a cane around the tracheostomy site. Bedside bronchoscopy was done large amount of blood cause was removed. Tracheostomy was resecured. November [address] Boothe. In the ICU patient been on different drips including propofol, fentanyl, Nimbex, cleviprex. Amlodipine losartan was added. Because of rash Zosyn was discontinued. Because of MSSA sputum on IV Ancef. Anxiety component. Tried on Seroquel. Psychiatry added Ativan at night. November 30: Ventilator. FiO2 40 and a PEEP of 5. On propofol. Open eyes. Response with smiles. Tube feeding. December 01: ICU. Ventilator. Small doses of propofol. This responded facial expressions. I made the following adjustments yesterday. Resume the home dose of Tegretol he takes for chronic pain., Resumed Elavil, cutback dose of Lyrica 100 mg 3 times a day, stopped Ativan. Patient getting 2 feeding. This morning cutback the dose of Seroquel morning dose to 25 mg. Also added Paxil 10 mg daily. December 02: ICU. Ventilator: 30/5. 2 feeding at 39 mL an hour. Patient has some drainage from his tracheostomy site. Cultures have been done. Patient is more awake. Less anxious. We will cutback evening dose of Seroquel to 25 mg. Stop the morning dose of Seroquel. Patient also be started on vancomycin. Dose of Paxil be increased tomorrow. Some movement in the upper limbs. Lower extremity weak. Review of systems: Patient intubated Active Medications Acetaminophen (Acetaminophen Tab 325 Mg Tab) 650 mg PO Q6HR PRN PRN Reason: Mild Pain or Fever > 100.5 Last Admin: 11/26/21 20:17 Dose: 650 mg Documented by: Albuterol Sulfate (Albuterol Hfa Inhaler) 2 puff INHALATION RT-QID PRN PRN Reason: Shortness Of Breath Last Admin: 12/02/21 19:49 Dose: 2 puff Documented by: Amitriptyline HCl (Amitriptyline Hcl 50 Mg Tab) 50 mg PO [facility] Last Admin: 12/01/21 20:24 Dose: 50 mg Documented by: Amlodipine Besylate (Amlodipine 10 Mg Tab) 10 mg PO DAILY@1200 [facility] Last Admin: 12/02/21 12:41 Dose: 10 mg Documented by: Artificial Tears (Artificial Tears-Hypromellose Drops 15 Ml Btl) 2 drops BOTH EYES Q4HR PRN PRN Reason: Dry Eye(s) Ascorbic Acid (Ascorbic Acid 500 Mg Tab) 1,000 mg PO DAILY [facility] Last Admin: 12/02/21 08:38 Dose: 1,000 mg Documented by: Bisacodyl (Bisacodyl 10 Mg Supp) 10 mg RECTAL BID [facility] Last Admin: 12/02/21 08:37 Dose: 10 mg Documented by: Carbamazepine (Carbamazepine 200 Mg Tab) 400 mg PO BID [facility] Last Admin: 12/02/21 08:38 Dose: 400 mg Documented by: Cholecalciferol (Cholecalciferol 25 Mcg (1000 Iu) Tablet) 25 mcg PO DAILY [facility] Last Admin: 12/02/21 08:37 Dose: 25 mcg Documented by: Dexamethasone (Dexamethasone 4 Mg Tab) 4 mg PO DAILY [facility] Enalaprilat (Enalaprilat 1.25 Mg/Ml 1 Ml Vial) 1.25 mg IVP Q4HR PRN PRN Reason: Blood Pressure - High Last Admin: 12/01/21 23:16 Dose: 1.25 mg Documented by: Haloperidol Lactate (Haloperidol Lactate 5 Mg/Ml 1 Ml Vial) 4 - 8 mg IVP Q6HR PRN PRN Reason: Agitation or Acute Psychosis Last Admin: 11/30/21 03:41 Dose: 8 mg Documented by: Hydralazine HCl (Hydralazine Hcl 20 Mg/Ml 1 Ml Vial) 20 mg IVP Q4HR PRN PRN Reason: Blood Pressure - High SBP >160 Last Admin: 12/02/21 17:30 Dose: 20 mg Documented by: Hydromorphone HCl (Hydromorphone 1 Mg/Ml 1 Ml Syringe) 1 mg IVP Q2HR PRN PRN Reason: Pain Last Admin: 11/30/21 03:15 Dose: 1 mg Documented by: Dexmedetomidine HCl 400 mcg/ (IV Solution) 100 mls @ 6.42 mls/hr IV .[id number] [facility]; Protocol Last Admin: 12/02/21 12:42 Dose: Not Given Documented by: Propofol 1,000 mg/ IV Solution 100 mls @ 0 mls/hr IV .Q0M [facility]; Protocol Last Titration: 12/01/21 11:30 Dose: 0 mcg/kg/min, 0 mls/hr Documented by: Anidulafungin 100 mg/ Sodium (Chloride) 130 mls @ 84 mls/hr IVPB DAILY@1200 [facility] Last Admin: 12/02/21 12:41 Dose: 84 mls/hr Documented by: Vancomycin HCl 1,750 mg/ (Sodium Chloride) 500 mls @ 167 mls/hr IVPB Q8H [facility] Last Admin: 12/02/21 15:23 Dose: 167 mls/hr Documented by: Insulin Aspart (Insulin Aspart (Novolog) 100 Unit/Ml Vial) 0 unit SQ Q6HR [facility]; Protocol Last Admin: 12/02/21 17:59 Dose: 4 unit Documented by: Insulin Detemir (Insulin Detemir (Levemir) 100 Unit/Ml Syr) 32 unit SQ HS [facility] Last Admin: 12/01/21 20:24 Dose: 32 unit Documented by: Lactulose (Lactulose 20 Gm/30 Ml Cup) 10 gm PO BID [facility] Last Admin: 12/02/21 08:38 Dose: 10 gm Documented by: Losartan Potassium (Losartan 50 Mg Tab) 100 mg PO HS [facility] Last Admin: 12/01/21 18:12 Dose: 100 mg Documented by: Metoprolol Tartrate (Metoprolol Tartrate 50 Mg Tab) 50 mg PO BID [facility] Last Admin: 12/02/21 08:37 Dose: 50 mg Documented by: Miscellaneous Information (Potassium Replacement Protocol 1 Each Misc) 1 each MISCELLANE DAILY PRN; Protocol PRN Reason: Per Protocol Miscellaneous Information (Vancomycin Trough Due 1 Each Misc) 1 each MISCELLANE ONCE ONE Stop: 12/03/21 05:01 Pantoprazole Sodium (Pantoprazole 40 Mg/10 Ml Vial) 40 mg IVP DAILY [facility] Last Admin: 12/02/21 08:38 Dose: 40 mg Documented by: Paroxetine HCl (Paroxetine 10 Mg Tab) 20 mg PO DAILY [facility] Pregabalin (Pregabalin 100 Mg Cap) 100 mg PO TID [facility] Last Admin: 12/02/21 17:24 Dose: 100 mg Documented by: Quetiapine Fumarate (Quetiapine 25 Mg Tab) 25 mg PO [facility] Zinc Sulfate (Zinc Sulfate 220 Mg Cap) 220 mg PO DAILY [facility] Last Admin: 12/02/21 08:37 Dose: 220 mg Documented by: Social history: Patient is on Social Security. Does not smoke or drink alcohol. Patient's daughters family lives with him. Family history: Father at the age of 40 with heart attack Physical examination: VITAL SIGNS: 99.5, 85, 25, 1 5794, 96% on the vent GENERAL: Laying in bed, . PEG tube . Tracheostomy tube. LUNGS: Respiratory rate increased,. PSYCH: Unable to assess NEURO: Eyes open. Response with facial expressions Rest of the exam per nursing and pulmonary INVESTIGATIONS, reviewed in the clinical context: December 02: White count 11 hemoglobin 10.1 potassium 3.7 BUN 14 creatinine 0.36 Trachea wound: Group D enterococcus, Bibi albicans, presumptive staph aureus December 01: White count 7.1 hemoglobin 8.4 platelets 210 potassium 3.6 creatinine 0.34 November 30: White count 11.2 hemoglobin 9.6 platelets 279 potassium 4.1 creatinine 0.38 pH 7.48 Blood culture positive for Staphylococcus epidermidis/coagulates negative. Sputum culture: MSSA, Bibi albicans November 17: White count 16.9 hemoglobin 11.1 potassium 3.3 creatinine 0.4 November 16: White count 17 hemoglobin 8.1 potassium 3.2 creatinine 0.5 to October 28: D-dimer 13.4 to October 26: D-dimer 8.48 CRP 24 Chest CTA [October 26: biLateral pulmonary embolism Doppler ultrasound lower extremity: Negative for DVT October 24: White count 9.7 hemoglobin 15.3 platelets 221 d-dimer 1.93 progression 4.2 creatinine 0.71 CRP 5.5 pro-calcitonin 0.08 White count 9.9 hemoglobin 16 platelets 234 d-dimer 0.98 sodium 141 potassium 3.4 creatinine 0.81 Lactic acid 2.9 LDH 1422 CRP 7.5 EKG tracing personally reviewed by me-normal sinus rhythm. Nonspecific ST segment changes. Chest x-ray film personally reviewed by me-bilateral infiltrates Assessment and plan: -Acute severe COVID 19 pneumonitis in a patient who did not take the COVID-19 vaccine: Slow to respond Dexamethasone, vitamin C, vitamin D, zinc. outside the window for Remdesivir. -Acute hypoxic respiratory failure from COVID-19: Slow to respond intubated October 30. FiO2 30/5 -Metabolic alkalosis, likely from volume contraction from IV Lasix: Better IV Lasix discontinued -Active bleeding around tracheostomy into the trachea and lungs. Status post bronchoscopy. Evacuation of large amounts of blood clot. Tracheostomy removed. Patient reintubated. revision tracheostomy tube - November 19. Lovenox was resumed. November 22: At the tracheostomy site: re- bleeding with blood clots followed by bronchoscopy. Revision of tracheostomy done. -Bilateral pulmonary embolism secondary to COVID-19 Eliquis -discontinued because of bleeding. Initially No Lakia filter per vascular. Lovenox resumed after revision tracheostomy. Lovenox discontinued, because of bleeding: November 22. Lakia filter placed by Dr. Boothe on November 23 -Essential hypertension: Somewhat uncontrolled Increase Lopressor 75 mg twice a day, amlodipine 10 mg a day. Cozaar 100 mg daily at bedtime -Diabetes mellitus type 2, on oral hypoglycemic, uncontrolled with hyperglycemia Levemir 32 units daily at bedtime. Follow Accu-Cheks -Chronic insomnia for medical conditions Elavil 50 mg daily at bedtime -Hyperlipidemia TriCor 48 mg daily -Hypoalbuminemia Acute phase reactant -Tracheostomy wound with cultures positive for group D enterococcus, Bibi albicans, presumptive staph aureus IV vancomycin ordered -Pneumonia with cultures positive for MSSA and Bibi IV Ancef and IVEraxis -Obstructive sleep apnea On CPAP at home -Pneumomediastinum and subcutis emphysema complications of COVID-19/pneumonia. - right upper apical pneumothorax less than 5%. -Diabetic peripheral neuropathy Lyrica 100 mg 3 times a day -Full code -Chronic neck pain forom surgery for removal of lymph nodes Tegretol 400 mg twice a day . 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 Stop morning dose of Seroquel. Cutback evening dose of Seroquel to 25 mg. Increase Paxil to 20 mg day. For blood pressure increase Lopressor to 75 mg twice a day. Other medications to continue. Patient remains on IV eraxis, started on vancomycin. Metabolic alkalosis could be combination of volume contraction and because steroids. Change dexamethasone to by mouth
[2021-12-02] MEDS: INSULIN DETEMIR (LEVEMIR) 100 UNIT/ML SYR SQ SCH (20:25)
[2021-12-02] MEDS: AMITRIPTYLINE HCL 50 MG TAB PO SCH (20:25)
[2021-12-02] MEDS: METOPROLOL TARTRATE 25 MG TAB PO SCH (20:26)
[2021-12-02] MEDS: LOSARTAN 50 MG TAB PO SCH (20:26)
--- NOTE | 2021-12-02 20:55 | P.PN ---
Subjective Progress Note Date: 12/02/21 Principal diagnosis: Pneumonia, rash, leukocytosis Patient is a 61-year male admitted to the hospital October 23, 2021 patient diagnosed with COVID-19 pneumonia did have a respiratory failure requiring intubation failed to be extubated status post trach and PEG on November 10, 2021 patient also have a component of secondary to pneumonia with MSSA patient has received more than 2 weeks course of Zosyn which was discontinued 11/17/2021 because of rash. On today's evaluation that is 12/02/2021 the patient continues to be afebrile, patient is hemodynamically stable not requiring any pressor support, the patient FiO2 is stable at 30 %,no significant purulent secretion through the ET however did have some purulent secretion from his trach site, no diarrhea reported by the nursing staff has been tolerating his tube feeds Objective - Vital Signs Vital signs: Vital Signs Temp 99.6 F 12/02/21 20:00 Pulse 111 H 12/02/21 20:00 Resp 29 H 12/02/21 20:00 BP 151/88 12/02/21 20:00 Pulse Ox 96 12/02/21 20:00 Intake & Output 12/02/21 12/02/21 12/03/21 06:59 18:59 06:59 Intake Total 1294 1384 234 Output Total 1760 2500 500 Balance -429 -7896 -815 Weight 118.4 kg 118.4 kg Intake: IV 736 756 69 0.9 Normal Saline @ 20 mL 200 220 60 /hr KVO Pressure bag 36 36 9 Vancomycin 2,250 mg In 500 500 Sodium Chloride 0.9% 500 ml 500 ml @ 167 mls/hr IVPB ONCE ONE Rx#: [id number] Tube Feeding 468 498 135 Other 90 130 30 Output: Urine 1760 2500 500 Other: Voiding Method Indwelling Catheter Indwelling Catheter ABP, PAP, CO, CI - Last Documented Arterial Blood Pressure 171/72 - Exam GENERAL DESCRIPTION: Middle-age male intubated on the vent through the trach RESPIRATORY SYSTEM: Unlabored breathing , decreased breath sounds at bases HEART: S1 S2 regular rate and rhythm , ABDOMEN: Soft , no tenderness EXTREMITIES: No edema feet - Labs CBC & Chem 7: 12/02/21 04:15 12/02/21 04:15 Labs: Abnormal Lab Results - Last 24 Hours (Table) 02/12/2212/02/21 12/02/21 Range/Units 00:04 04:15 04:15 WBC 11.0 H (3.8-10.6) k/uL RBC 3.02 L (4.30-5.90) m/uL Hgb 10.1 L (13.0-17.5) gm/dL Hct 30.6 L (39.0-53.0) % MCV 101.3 H (80.0-100.0) fL ABG pH (7.35-7.45) ABG pO2 (83-108) mmHg ABG HCO3 (21-25) mmol/L ABG Total CO2 (19-24) mmol/L ABG O2 Saturation (94-97) % Sodium 134 L (137-145) mmol/L Creatinine 0.36 L (0.66-1.25) mg/dL Glucose 135 H (74-99) mg/dL POC Glucose (mg/dL) 132 H (75-99) mg/dL 12/02/21 12/02/21 12/02/21 Range/Units 05:37 05:48 11:31 WBC (3.8-10.6) k/uL RBC (4.30-5.90) m/uL Hgb (13.0-17.5) gm/dL Hct (39.0-53.0) % MCV (80.0-100.0) fL ABG pH 7.50 H (7.35-7.45) ABG pO2 112 H (83-108) mmHg ABG HCO3 29 H (21-25) mmol/L ABG Total CO2 30 H (19-24) mmol/L ABG O2 Saturation 99.3 H (94-97) % Sodium (137-145) mmol/L Creatinine (0.66-1.25) mg/dL Glucose (74-99) mg/dL POC Glucose (mg/dL) 127 H 195 H (75-99) mg/dL 12/02/21 Range/Units 17:36 WBC (3.8-10.6) k/uL RBC (4.30-5.90) m/uL Hgb (13.0-17.5) gm/dL Hct (39.0-53.0) % MCV (80.0-100.0) fL ABG pH (7.35-7.45) ABG pO2 (83-108) mmHg ABG HCO3 (21-25) mmol/L ABG Total CO2 (19-24) mmol/L ABG O2 Saturation (94-97) % Sodium (137-145) mmol/L Creatinine (0.66-1.25) mg/dL Glucose (74-99) mg/dL POC Glucose (mg/dL) 171 H (75-99) mg/dL Microbiology - Last 24 Hours (Table) 11/30/21 15:02 Gram Stain - Preliminary Trachea Wound Culture - Preliminary Group D Enterococcus Bibi albicans Presumptive Staph aureus Assessment and Plan (1) Fever Current Visit: Yes Status: Acute Code(s): R50.9 - FEVER, UNSPECIFIED SNOMED Code(s): 826211229 (2) Rash Current Visit: Yes Status: Acute Code(s): R21 - RASH AND OTHER NONSPECIFIC SKIN ERUPTION SNOMED Code(s): 916106131 (3) COVID-19 Current Visit: Yes Status: Acute Code(s): U07.1 - COVID-19 SNOMED Code(s): 579083724 Plan: 1- patient with low-grade fever and some purulent drainage from his trach site cultures are now showing group D enterococcus along with bibi albicans in this patient who did have a rash with Zosyn, patient to continue with vancomycin pharmacy does along with Eraxis and monitor his clinical course closely Time with Patient: Less than 30
[2021-12-02 23:47] LABS: Glucose,Whole Blood 159 mg/dL (75-99)
[2021-12-03] MEDS: VANCOMYCIN 1,750 MG in SODIUM CHLORIDE 0.9% 500 ML 500 ML IVPB SCH ×2 (00:10→08:20)
[2021-12-03] MEDS: INSULIN ASPART (NovoLOG) 100 UNIT/ML VIAL SQ SCH ×4 (00:11→18:09)
[2021-12-03] MEDS: DEXMEDETOMIDINE/0.9% NACL(PMX) 400 MCG in EMPTY BAG 1 BAG IV SCH (04:38)
[2021-12-03] MEDS ORDERED: VANCOMYCIN TROUGH DUE 1 EACH MISC MISCELLANE ONE (05:00)
[2021-12-03 05:36] LABS: ABG Base Excess 3.6 mmol/L; ABG HCO3 28 mmol/L (21-25); ABG Oxygen Saturation 98.2 % (94-97); ABG PCO2 39 mmHg (35-45); ABG PH 7.45 (7.35-7.45); ABG PO2 98 mmHg (83-108); ABG TCO2 29 mmol/L (19-24); Allen Test Performed? Yes
[2021-12-03 05:38] LABS: Glucose,Whole Blood 142 mg/dL (75-99)
[2021-12-03 05:59] LABS: HCT 29.1 % (39.0-53.0); Hypochromasia Slight; MCH 31.7 pg (25.0-35.0); MCHC 31.1 g/dL (31.0-37.0); MCV 102.1 fL (80.0-100.0); Macrocytosis Slight; Mean Platelet Volume 8.3; Platelet Count 235 k/uL (150-450); RBC 2.85 m/uL (4.30-5.90); RDW 14.9 % (11.5-15.5); WBC 10.7 k/uL (3.8-10.6)
[2021-12-03 06:33] LABS: African American GFR (CKD) >90 (>60 ml/min/1.73 sqM); Anion Gap 4 mmol/L; Blood Urea Nitrogen 15 mg/dL (9-20); Calcium 8.6 mg/dL (8.4-10.2); Carbon Dioxide 26 mmol/L (22-30); Chloride 105 mmol/L (98-107); Glucose 138 mg/dL (74-99); Non-African American GFR(CKD) >90 (>60 ml/min/1.73 sqM); Potassium 3.6 mmol/L (3.5-5.1); Sodium 135 mmol/L (137-145)
[2021-12-03] MEDS ORDERED: POTASSIUM BICARBONATE/CIT AC 20 MEQ TABLET.EFF NG-TUBE SCH (08:00)
[2021-12-03] MEDS: LACTULOSE 20 GM/30 ML CUP PO SCH (08:20)
[2021-12-03] MEDS: bisacodyL 10 MG SUPP RECTAL SCH (08:21)
[2021-12-03] MEDS: ASCORBIC ACID 500 MG TAB PO SCH (08:22)
[2021-12-03] MEDS: carBAMazepine 200 MG TAB PO SCH (08:22)
[2021-12-03] MEDS: METOPROLOL TARTRATE 25 MG TAB PO SCH (08:22)
[2021-12-03] MEDS: CHOLECALCIFEROL 25 MCG (1000 IU) TABLET PO SCH (08:23)
[2021-12-03] MEDS: ZINC SULFATE 220 MG CAP PO SCH (08:23)
[2021-12-03] MEDS: PREGABALIN 100 MG CAP PO SCH ×2 (08:23→18:08)
[2021-12-03] MEDS: PANTOPRAZOLE 40 MG/10 ML VIAL IVP SCH (08:23)
--- NOTE | 2021-12-03 08:32 | XR ---
EXAMINATION TYPE: XR chest 1V portable DATE OF EXAM: 12/03/2021 COMPARISON: Chest x-ray 12/02/2021 HISTORY: Covid 19 pneumonia TECHNIQUE: Single frontal view of the chest is obtained. FINDINGS: Tracheostomy tube is overlying the tracheal air column. Surgical clips over the right neck . Right-sided PICC line shows the distal tip overlying the right subclavian vein or innominate vein l evel. No evident pneumothorax or pleural effusion. Right hemidiaphragm is elevated. Cardiac mediastin al silhouette is stable. Parenchymal changes within the lungs show similar appearance. IMPRESSION: No significant change, findings consistent with patient's history of Covid 19 infection.
[2021-12-03] MEDS ORDERED: dexAMETHasone 4 MG TAB PO SCH (09:00)
[2021-12-03] MEDS ORDERED: PARoxetine 20 MG TAB PO SCH (09:00)
--- NOTE | 2021-12-03 10:08 | P.PN ---
Subjective Progress Note Date: 12/03/21 61-year-old male patient with past medical history of diabetes mellitus type 2 with diabetic neuropathy, hypertension, hyperlipidemia, previous history of CVA, rheumatoid arthritis, obstructive sleep apnea S/P UPPP, history of right eye melanoma with previous surgeries, BPH with previous TURP, chronic lower extremity edema, cellulitis, gout, presented to the emergency department on 10/23/2021 at 240 3 in the morning with complaints of severe shortness of breath, cough, congestion. Patient states he has had symptoms since October 09, initially was tested via rapid COVID-19 PCR test which was negative however the send out PCR test came back positive. Patient was transferred to the intensive care on 10/29/2022, and was intubated in next day on 10/30/2022. The patient was given a tracheostomy tube on 11/10/2021. His course has been complicated by tracheostomy tube eroding his surgical wound and recurrent bleeding from the surgical wound, and based on that the patient was taken off anticoagulation the patient was given an IVC filter for pulmonary embolism. Currently he is on no anticoagulants On today's evaluation of 11/30/2021, the patient is awake and alert and he is communicating. He remains profoundly weak. The weakness is in all 4 extremities. The patient remains on a mechanical ventilator. This morning, he is on assist control mode at the rate of 24, tidal volume of 350, FiO2 of 40% with a PEEP of 8. The patient is currently on propofol at 30 mcg/kg per minute. This is needed to contain his sedation. He was on Precedex yesterday this was switched to propofol to more effectively control his sedation. Nevertheless, despite being on propofol, he is wide awake. His chest x-ray still showing bilateral pulmonary infiltrates, diffuse. The patient has a large tracheostomy site wound which is not bleeding at this point in time. Nevertheless, the wound is covered with purulent respiratory secretions that are greenish and thick. I aspirated the majority of the purulent material today. Cultures will be sent. Note that the patient was on a combination of Zosyn and Eraxis. Zosyn was discontinued after completing a two-week course of antibiotics. Infectious diseases on the case. The blood gases from today showing a pH of 7.48 with a pCO2 of 42 and pO2 156. This was on FiO2 of 40% PEEP white cell count is 11.2 with a hemoglobin of 9.6. Rest of the praveen ctrolytes are all within normal limits. He has a normal renal function. The overall fluid balance over the past 24 hours has been +563 mL. The patient is receiving enteral feeding for nutritional support and currently he is on vital HPI the rate of 47 mL an hour. He is currently off clevidipine drip. He is on Levemir insulin 32 units along with a slight scale coverage. He is taking Seroquel 50 mg by mouth twice a day along with Zoloft 50 mg on a daily basis for increased his anxiety, depression and delirium. He has a PEG tube for enteral feeding and nutritional support. He also was given an IVC filter regarding a pulmonary embolism that was diagnosed at time of his admission. Dopplers of lower extremities were essentially negative for any DVT. The IVC filter was inserted on 11/23/2021. 12/01/2021, the patient is being seen seen in follow-up in the intensive care unit. This morning, the patient is resting comfortably in bed. Has night was essentially uneventful. The patient remains on propofol running at 25 mcg/kg per minute. He is quite comfortable with that and this will be gradually weaned off as the patient is still requiring some degree of sedation to maintain sy nchrony with a mechanical ventilator. Note that the patient is post tracheostomy tube insertion. His tracheostomy wound was draining some purulent material yesterday. Cultures were sent. ID was informed. The patient was kept only on Eraxis. Meanwhile, the Bivona tracheostomy tube remains in place. The patient continues to have diffuse bilateral pulmonary infiltrates without evidence of pneumothorax or subcutaneous emphysema. Comparing the chest x-ray from earlier films, there is stable bilateral pulmonary states with some limited interval improvement if any. Meanwhile, the blood gases from today shows a pH of 7.45 with a pCO2 of 45 and a pO2 of 108 and this was done and FiO2 of 30% with a PEEP of 5 tidal volume of 350 and the rate of 24. The patient's peak airway pressure is currently at 24. The patient is not showing any signs of bleeding from his tracheostomy wounds. No evidence of bleeding from the airways. The patient is on no anticoagulants. The patient has an IVC filter in place. Meanwhile, he is still on Decadron 4 mg IV every 24 hours. He is taking Seroquel 50 mg by mouth twice a day to maintain comfort and avoid delirium. He is receiving enteral feeding for nutritional support and currently he is on vital HPI at the rate of 39 mL an hour. The patient is on Levemir insulin 32 units at bedtime along with that he is receiving NovoLog sliding scale coverage. His blood pressure is under adequate control and he has not required any drips. He is on metoprolol 50 mg by mouth twice a day, he is also on Vasotec on an as- needed basis, hydralazine on an as-needed basis and Cozaar at a dose of 100 mg once a day. Blood work from today shows a white cell count 7.1 with a hemoglobin of 8.4, dropping Pasquale compared to yesterday without evidence of any bleed. The platelet count is at 210. Sodium is at 136 with a potassium level of 3.6 and a Cardizem on 05 bicarb is at 33 and is at 16 with a creatinine of 0.3. The patient remains quite weak. He is responsive. He is following commands and communicating. His daughter was at bedside yesterday and I updated her on his condition. 12/02/2021, the patient is awake. Weak especially in his lower extremities. Able to raise his arms against gravity. He was taken off the propofol yesterday and his currently off sedation. Following commands. Opens his eyes spontaneously. Resting comfortably on a mechanical ventilator. This morning, he is an assist-control mode with a rate of 24, tidal volume of 350, FiO2 of 30% and a PEEP of 5. Chest x-ray remains unchanged with bilateral pulmonary infiltrates. The patient has a Bivona tracheostomy tube in place. As mentioned earlier, there is a 1 infection. The patient was having purulent discharge from the surgical wound site at the level of his tracheostomy. Further cultures showed enterococcus group D and the patient was started on vancomycin by infectious disease. He is afebrile. He is hemodynamically stable. He is resting comfortably in bed. Blood gases from today shows a pH of 7.5 with a pCO2 of 37 and pO2 of 112. Weaning parameters will be checked and the patient will be switched to a pressure support mode of mechanical ventilation. No bleeding complications. The patient has a stable hemoglobin of 10.1. The patient was given an IVC filter in place regarding his previous pulmonary embolism. His blood pressure is under better control. Is currently on a combination of Cozaar 100 mg by mouth daily, Lopressor 50 mg by mouth twice a day and Norvasc 5 mg by mouth daily. The patient is also taking hydralazine 20 mg IV every 4 hours on a when necessary basis for a systolic blood pressure above 160. The patient is currently off the Celebrex drip. He is on Levemir insulin 30 units along with a sliding scale coverage for blood sugar control. He is on IV Protonix. As mentioned, he has no anticoagulation. He'll be off ered compression devices to his lower extremities bilaterally. He continues to receive enteral feeding for nutritional support. He is currently on enteral feeding at the rate of 39 mL an hour of vital high protein. IV fluids are currently at KVO. We are in the process of making arrangements for this patient to be transferred to select specialty. The primary care physician is already made some adjustments on his medications and the patient is currently on Seroquel 50 mg at bedtime and 12.5 mg in the morning and he was also restarted back on his amitriptyline 50 mg at bedtime. 12/03/2021, I'm seeing the patient for a follow-up. The patient is wide awake. His affect is flat and I think there is an ongoing component of depression. He remains profoundly weak and he is weak reflexes in lower extremities bilaterally and there is an obvious component of polyneuropathy and myopathy due to prolonged critically care management on this patient. He remains on a mechanical ventilator. He has been switched to pressure support mode of mechanical ventilation with pressure support of 10 and a PEEP of 5. He is generating very good tidal volumes. He is not tachypneic. He is not having any respiratory distress. Chest x-ray showing improvement in the pulmonary infiltrates. The pH is 7.45 with a pCO2 of 39 and pO2 of 98. The patient is having some purulent drainage from the neck wound and the wound was inspected. The purulent material was suctioned out. Appropriate dressing was applied. The patient continues to have a Bivona tracheostomy tube in place. There is a cultures is growing enterococcus group D and resumptive staph aureus and for that reason the patient is IV Vancomycin for Now. He Is Afebrile. He Is Hemodynamically Stable. He Is Following Commands. He Is Being Fed Enterally Via a PEG Tube and the Patient Is Currently on Vital HPI at the Rate of 45 ML an Hour. His Blood Sugars under Adequate Control and the Patient on Levemir Insulin 30 Units along with a Sliding Scale Coverage. In Terms of His Fluid Balance, the Patient Is in a Negative Fluid Balance of 1 L over the past 24 Hours. He Is on Lasix on an As-Needed basis to Control His Fluid Balance. His Blood Pressures under Good Control for Now. No Other Major Issues Other Than His Profound Weakness. He Is Doing Significant Progress in Terms of His Overall Respiratory Status. Chest X-Ray from Today Shows No Acute Abnormalities. The Pulmonary Infiltrates Are Gradually Improving. Objective - Vital Signs Vital signs: Vital Signs Temp 98.5 F 12/03/21 08:00 Pulse 87 12/03/21 08:00 Resp 24 12/03/21 08:00 BP 138/82 12/03/21 08:00 Pulse Ox 96 12/03/21 08:00 Intake & Output 12/02/21 12/03/21 12/03/21 18:59 06:59 18:59 Intake Total 1384 1444 136 Output Total 2500 1125 325 Balance -1116 319 -189 Weight 118.4 kg 117.4 kg Intake: IV 756 769 46 0.9 Normal Saline @ 20 mL 220 230 40 /hr KVO Pressure bag 36 39 6 Vancomycin 1,750 mg In 500 Sodium Chloride 0.9% 500 ml 500 ml @ 167 mls/hr IVPB Q8H [facility] Rx#: [id number] Vancomycin 2,250 mg In 500 Sodium Chloride 0.9% 500 ml 500 ml @ 167 mls/hr IVPB ONCE ONE Rx#: [id number] Tube Feeding 498 585 90 Other 130 90 Output: Urine 2500 1125 325 Other: Voiding Method Indwelling Catheter Indwelling Catheter Indwelling Catheter ABP, PAP, CO, CI - Last Documented Arterial Blood Pressure 161/62 - Exam GENERAL EXAM: Alert, restless 61-year-old male patient, the patient remains on a mechanical ventilator , trach tube is in place and the patient has a Bivona tracheostomy tube. The patient is currently on low-dose propofol to control his anxiety and agitation. He is quite successful mechanical ventilator. HEAD: Normocephalic. EYES: Normal reaction of pupils, equal size. NOSE: Clear with pink turbinates. THROAT: No erythema or exudates. He has a Bivona tracheostomy tube in place. Exit site is clean. No evidence of any air leak. No evidence of any bleeding around the tracheostomy stoma. The wound is packed and there is no active bleeding NECK: No masses, no JVD. CHEST: No chest wall deformity. LUNGS: Equal air entry with coarse crackles in the posterior bases. CVS: S1 and S2 normal with no audible murmur, regular rhythm. ABDOMEN: No hepatosplenomegaly, normal bowel sounds, no guarding or rigidity. The patient has also had a PEG tube in place which is currently intact. No evidence of any bleeding around the PEG tube. SPINE: No scoliosis or deformity SKIN: No rashes CENTRAL NERVOUS SYSTEM: No focal deficits, tone is normal in all 4 extremities., The patient opens up his eyes and follows simple commands. He is able to move or flex images without any limitation. EXTREMITIES: There is peripheral edema. No clubbing, no cyanosis. Peripheral pulses are intact. - Labs CBC & Chem 7: 12/03/21 05:30 12/03/21 05:30 Labs: Abnormal Lab Results - Last 24 Hours (Table) 12/02/21 12/02/21 12/02/21 Range/Units 11:31 17:36 23:46 WBC (3.8-10.6) k/uL RBC (4.30-5.90) m/uL Hgb (13.0-17.5) gm/dL Hct (39.0-53.0) % MCV (80.0-100.0) fL ABG HCO3 (21-25) mmol/L ABG Total CO2 (19-24) mmol/L ABG O2 Saturation (94-97) % Sodium (137-145) mmol/L Creatinine (0.66-1.25) mg/dL Glucose (74-99) mg/dL POC Glucose (mg/dL) 195 H 171 H 159 H (75-99) mg/dL 12/03/21 12/03/21 12/03/21 Range/Units 05:30 05:30 05:32 WBC 10.7 H (3.8-10.6) k/uL RBC 2.85 L (4.30-5.90) m/uL Hgb 9.0 L (13.0-17.5) gm/dL Hct 29.1 L (39.0-53.0) % MCV 102.1 H (80.0-100.0) fL ABG HCO3 28 H (21-25) mmol/L ABG Total CO2 29 H (19-24) mmol/L ABG O2 Saturation 98.2 H (94-97) % Sodium 135 L (137-145) mmol/L Creatinine 0.41 L (0.66-1.25) mg/dL Glucose 138 H (74-99) mg/dL POC Glucose (mg/dL) (75-99) mg/dL 12/03/21 Range/Units 05:37 WBC (3.8-10.6) k/uL RBC (4.30-5.90) m/uL Hgb (13.0-17.5) gm/dL Hct (39.0-53.0) % MCV (80.0-100.0) fL ABG HCO3 (21-25) mmol/L ABG Total CO2 (19-24) mmol/L ABG O2 Saturation (94-97) % Sodium (137-145) mmol/L Creatinine (0.66-1.25) mg/dL Glucose (74-99) mg/dL POC Glucose (mg/dL) 142 H (75-99) mg/dL Microbiology - Last 24 Hours (Table) 11/30/21 15:02 Gram Stain - Preliminary Trachea Wound Culture - Preliminary Group D Enterococcus Bibi albicans Presumptive Staph aureus Assessment and Plan Plan: 1 Acute hypoxic respiratory failure related to acute COVID-19 related pneumonia, patient presented to the emergency department on 10/23/2021 with 2 week history of symptoms, patient is outside the window for [facility], he is a non-vaccinated adult. The patient was transferred to the intensive care unit . The patient has been on mechanical ventilator 10/30/2022. The patient underwent tracheostomy tube insertion on 11/10/2021. This was not associated with significant amount of bleeding around the tracheostomy stoma. That examination was discontinued and the patient was given IVC filter in 11/23/2021. The patient is currently off anticoagulants. His chest x-ray is showing diffuse bilateral pulmonary infiltrates. There is copious amount of rest or secretions around the tracheostomy , thick and purulent. Cultures will be collected. The cultures do not a positive for enterococcus group D in addition to staph aureus and the patient was also vancomycin. The patient has adequate blood gases and oxygenation is x-ray findings are stable for now. The patient is hemodynamically stable and the patient's blood pressure is under better control. For now, the patient is on a pressure support mode of mechanical ventilation and the patient is on a pressure support of 10 and a PEEP of 5. The active issue is ongoing infection from the neck wound. 2 Bilateral pulmonary emboli on computed tomography scan 10/26/2021. He received IVC filter on 11/23/2021 currently on no anticoagulants 3 Diabetes mellitus type 2 with diabetic neuropathy currently on Levemir insulin for blood sugar control 4 right apical pneumothorax, approximately 5%, recovered 5 epistaxis, recovered 6 Obstructive sleep apnea with previous history of UPPP 7 History of right eye melanoma with multiple surgeries 8 Previous history of CVA 9 Rheumatoid arthritis 10 History of gout 11 Previous history of MRSA infection in the wound on his back 12 Mild lactic acidosis, improved with IV hydration 13 Elevated inflammatory markers related to acute COVID-19 pneumonia, improved 14 BPH with previous history of TURP 15 pneumomediastinum and subcutaneous emphysema, complications of COVID 19 related pneumonia, recovered 16 tiny right apical pneumothorax less than 5%, recovered 17 sinus bradycardia, recovered 18 hypertension 19 hyperlipidemia 20 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 I am inclined in be cannulating this patient which will hopefully enhance healing of the neck wound. For now, the appropriate dressing is then applied and the patient is receiving wound care. There is evidence of staph and enterococcus group D growth and the patient remains on vancomycin. Keep the FiO2 at 30% Vancomycin has been started by infectious disease Continue Elavil and Seroquel Continue Decadron at a dose of 4 mg by mouth daily Levemir 32 U and a SS coverage Continue enteral feeding for nutritional support Continued assessment of the supportive care Monitor bleed Patient is ready to be transferred to for further strengthening, exercise and weaning. bending shed worker, Mr. Cas Harman is on the case. As we are doing our wean, the patient is profoundly weak and he would benefit from a LTAC transfer. We are going to work and pedal for his transplant same time though some more weaning, trach collar and possible decannulation. Condition is critical . Critically care evaluation that was on a more than 30 minutes.
[2021-12-03 11:48] LABS: Glucose,Whole Blood 193 mg/dL (75-99)
[2021-12-03] MEDS: amLODIPine 10 MG TAB PO SCH (11:51)
[2021-12-03] MEDS: ANIDULAFUNGIN 100 MG in SODIUM CHLORIDE 0.9% 100 ML IVPB SCH (11:52)
--- NOTE | 2021-12-03 13:43 | P.PN ---
Subjective Progress Note Date: 12/03/21 CHIEF COMPLAINT: COVID-19 pneumonia HISTORY OF PRESENT ILLNESS: Patient is in the ICU on mechanical ventilation. Initial tracheostomy and PEG tube placement on 11/10/2021. He is status post second revision of tracheostomy and partial thyroidectomy on 11/22 due to bleeding from tracheostomy site from Lovenox. Patient has had no further bleeding from tracheostomy site. Patient is tolerating tube feeds. Patient is awake. Patient being placed on trach collar today. Social work is working on possible transfer to LTAC. Patient seen and examined with Dr. daniel PHYSICAL EXAM: VITAL SIGNS: Reviewed. GENERAL: Well-developed in no acute distress. HEENT: Head is atraumatic, normocephalic. Tracheostomy site with drainage ABDOMEN: Soft. Nondistended. Nontender. PEG tube site clean dry and intact NEUROLOGIC: Awake ASSESSMENT: 1. Acute hypoxic respiratory failure secondary to COVID-19 pneumonia requiring mechanical ventilation 2. Severe protein calorie malnutrition 3. Bilateral pulmonary emboli 4. Bleeding at tracheostomy site status post second tracheostomy revision PLAN: -Continue ICU management and supportive care -Continue tube feeds -Continue supportive care for tracheostomy -Continue to monitor Physician [employer] Developer note has been reviewed by physician. Signing provider agrees with the documented findings, assessment, and plan of care. Objective - Vital Signs Vital signs: Vital Signs Temp 98 F 12/03/21 12:00 Pulse 73 12/03/21 12:00 Resp 21 12/03/21 12:00 BP 149/88 12/03/21 12:00 Pulse Ox 94 L 12/03/21 12:00 Intake & Output 12/02/21 12/03/21 12/03/21 18:59 06:59 18:59 Intake Total 1384 1444 340 Output Total 4042 1125 635 Balance -1116 319 -295 Weight 118.4 kg 117.4 kg Intake: IV 756 769 115 0.9 Normal Saline @ 20 mL 220 230 100 /hr KVO Pressure bag 36 39 15 Vancomycin 1,750 mg In 500 Sodium Chloride 0.9% 500 ml 500 ml @ 167 mls/hr IVPB Q8H [facility] Rx#: [id number] Vancomycin 2,250 mg In 500 Sodium Chloride 0.9% 500 ml 500 ml @ 167 mls/hr IVPB ONCE ONE Rx#: [id number] Tube Feeding 498 585 225 Other 130 90 Output: Urine 2500 1125 635 Other: Voiding Method Indwelling Catheter Indwelling Catheter Indwelling Catheter ABP, PAP, CO, CI - Last Documented Arterial Blood Pressure 178/65 - Labs CBC & Chem 7: 12/03/21 05:30 12/03/21 05:30 Labs: Abnormal Lab Results - Last 24 Hours (Table) 12/02/21 12/02/21 12/03/21 Range/Units 17:36 23:46 05:30 WBC 10.7 H (3.8-10.6) k/uL RBC 2.85 L (4.30-5.90) m/uL Hgb 9.0 L (13.0-17.5) gm/dL Hct 29.1 L (39.0-53.0) % MCV 102.1 H (80.0-100.0) fL ABG HCO3 (21-25) mmol/L ABG Total CO2 (19-24) mmol/L ABG O2 Saturation (94-97) % Sodium (137-145) mmol/L Creatinine (0.66-1.25) mg/dL Glucose (74-99) mg/dL POC Glucose (mg/dL) 171 H 159 H (75-99) mg/dL 12/03/21 12/03/21 12/03/21 Range/Units 05:30 05:32 05:37 WBC (3.8-10.6) k/uL RBC (4.30-5.90) m/uL Hgb (13.0-17.5) gm/dL Hct (39.0-53.0) % MCV (80.0-100.0) fL ABG HCO3 28 H (21-25) mmol/L ABG Total CO2 29 H (19-24) mmol/L ABG O2 Saturation 98.2 H (94-97) % Sodium 135 L (137-145) mmol/L Creatinine 0.41 L (0.66-1.25) mg/dL Glucose 138 H (74-99) mg/dL POC Glucose (mg/dL) 142 H (75-99) mg/dL 12/03/21 Range/Units 11:46 WBC (3.8-10.6) k/uL RBC (4.30-5.90) m/uL Hgb (13.0-17.5) gm/dL Hct (39.0-53.0) % MCV (80.0-100.0) fL ABG HCO3 (21-25) mmol/L ABG Total CO2 (19-24) mmol/L ABG O2 Saturation (94-97) % Sodium (137-145) mmol/L Creatinine (0.66-1.25) mg/dL Glucose (74-99) mg/dL POC Glucose (mg/dL) 193 H (75-99) mg/dL Microbiology - Last 24 Hours (Table) 11/30/21 15:02 Gram Stain - Preliminary Trachea Wound Culture - Preliminary Group D Enterococcus Bibi albicans Presumptive Staph aureus
--- NOTE | 2021-12-03 13:53 | P.DS ---
Providers Date of admission: 10/23/21 06:17 Expected date of discharge: 12/03/21 Attending physician: Carlos Russo Consults: 10/23/21 06:18 Consult Physician Routine Consulting Provider: Jaleel Glaser Consult Reason/Comments: covid Do you want consulting provider notified?: Yes 11/09/21 08:11 Consult Physician Routine Consulting Provider: Diego Love Consult Reason/Comments: trach and peg Do you want consulting provider notified?: Yes 11/12/21 11:55 Consult Physician Urgent Consulting Provider: Anthony Call Consult Reason/Comments: Epistaxis on Eliquis Do you want consulting provider notified?: Yes 11/16/21 12:18 Consult Physician Routine Consulting Provider: Adalid Monroy Consult Reason/Comments: IVC filter placement Do you want consulting provider notified?: Yes 11/17/21 11:20 Consult Physician Urgent Consulting Provider: Laura Chan Consult Reason/Comments: infection Do you want consulting provider notified?: Yes 11/28/21 19:57 Consult Physician Urgent Consulting Provider: Dillon Ramírez Consult Reason/Comments: Agitation Do you want consulting provider notified?: Yes Primary care physician: [facility] Course: Chief Complaint: Short of breath This is a pleasant 61-year-old patient, chronic stable medical conditions include diabetes, hypertension, hyperlipidemia, osteoarthritis, peripheral neuropathy, chronic gout. Patient presents with increasing shortness of breath. Cough. Clear sputum. Fever and chills. Tired rundown decrease appetite and diarrhea about 2 times a day. Patient tested positive for COVID-19 on October 09. His initial rapid COVID-19 was negative. In the send out came back positive. Patient did not take the vaccine against COVID-19. He is on 8 L of oxygen this morning. He is outside the window for Remdesivir. Admitted with COVID 19 pneumonitis, acute hypoxic respiratory failure. Started on Decadron. IV fluids. October 26 chest CTA showed bilateral pulmonary embolism. Breathing cord worse in October 30 patient is intubated. Requiring various drips. 2 feeding was started. November 10 patient got a tracheostomy and a PEG tube. Patient subsequently had a large bleed from the tracheostomy site. Desaturated. Tracheostomy had to be removed. Bedside bronchoscopy was done. Large blood loss was removed. Was put back on the ventilator/intubated. Required FFP. November 19 tracheostomy revision done. Lovenox resume. November 22 patient had bleeding a cane around the tracheostomy site. Bedside bronchoscopy was done large amount of blood cause was removed. Tracheostomy was resecured. November [address] Adolphus filter [address] by Dr[address] Boothe. In the ICU patient been on different drips including propofol, fentanyl, Nimbex, cleviprex. Amlodipine losartan was added. Because of rash Zosyn was discontinued. Because of MSSA sputum on IV Ancef. Anxiety component. Tried on Seroquel. Eventually propofol was weaned off. Patient home dose of Tegretol she takes for chronic pain for neck surgery, Elavil was resumed. Dose of Lyrica cutback to 100 mg 3 times a day. Seroquel weaned off. Paxil added. Patient been having pus drainage from the tracheostomy site. Cultures positive for group D enterococcus, Bibi albicans, presumptive staph aureus. Sputum positive for MSSA. Vancomycin was added by ID. December 03: Patient is awake. Able to lift his upper extremity slight. Less so the lower extremity. Tolerating tube feeding. Some drainage from the tracheostomy site. Seroquel is being discontinued. Discussed with Dr. Teague from pulmonary. Stable for transfer to LTAC. Antibiotics per Dr. Costa from ID. Patient is being tried on a trach collar today. Discussion and discharge planning more than 35 minutes Consultations: Dr. Chan from ID Dr. Teague and partners from pulmonary Dr. Love from general surgery Social history: Patient is on Social Security. Does not smoke or drink alcohol. Patient's daug hters family lives with him. Family history: Father at the age of 40 with heart attack Physical examination: VITAL SIGNS: 98, 73, 21, 149/88, 94% on trach collar GENERAL: Laying in bed, . PEG tube . Tracheostomy tube. LUNGS: Respiratory rate increased,. PSYCH: Unable to assess NEURO: Eyes open. Response with facial expressions Rest of the exam per nursing and pulmonary INVESTIGATIONS, reviewed in the clinical context: December 03: White count 10.7 hemoglobin 9 ABG: PH 7.45 potassium 3.6 creatinine 0.41 sodium 135 Tracheostomy site wound: Group D enterococcus, Bibi albicans, presumptive staph aureus November 30: White count 11.2 hemoglobin 9.6 platelets 279 potassium 4.1 creatinine 0.38 pH 7.48 Blood culture positive for Staphylococcus epidermidis/coagulates negative. Sputum culture: MSSA, Bibi albicans November 16: White count 17 hemoglobin 8.1 potassium 3.2 creatinine 0.5 to October 28: D-dimer 13.4 to October 26: D-dimer 8.48 CRP 24 Chest CTA [October 26: biLateral pulmonary embolism Doppler ultrasound lower extremity: Negative for DVT October 24: White count 9.7 hemoglobin 15.3 platelets 221 d-dimer 1.93 progression 4.2 creatinine 0.71 CRP 5.5 pro-calcitonin 0.08 White count 9.9 hemoglobin 16 platelets 234 d-dimer 0.98 sodium 141 potassium 3.4 creatinine 0.81 Lactic acid 2.9 LDH 1422 CRP 7.5 EKG tracing personally reviewed by me-normal sinus rhythm. Nonspecific ST segment changes. Chest x-ray film personally reviewed by me-bilateral infiltrates Assessment and plan: -Acute severe COVID 19 pneumonitis in a patient who did not take the COVID-19 vaccine: Better Dexamethasone, vitamin C, vitamin D, zinc. outside the window for Remdesivir. DC on prednisone taper. -Acute hypoxic respiratory failure from COVID-19: Improving intubated October 30. 94% on trach shield 40% -Metabolic alkalosis, likely from volume contraction from IV Lasix: Better IV Lasix discontinued -Active bleeding around tracheostomy into the trachea and lungs. Status post bronchoscopy. Evacuation of large amounts of blood clot. Tracheostomy removed. Patient reintubated. revision tracheostomy tube - November 19. Lovenox was resumed. November 22: At the tracheostomy site: re- bleeding with blood clots followed by bronchoscopy. Revision of tracheostomy done. -Bilateral pulmonary embolism secondary to COVID-19 Eliquis -discontinued because of bleeding. Initially No Adolphus filter per vascular. Lovenox resumed after revision tracheostomy. Lovenox discontinued, because of bleeding: November 22. Lakia filter placed by Dr. Boothe on November 23 -Essential hypertension Lopressor 75 mg twice a day, amlodipine 10 mg a day. Cozaar 100 mg daily at bedtime -Diabetes mellitus type 2, on oral hypoglycemic, uncontrolled with hyperglycemia Levemir 32 units daily at bedtime. Follow Accu-Cheks. Metformin thousand milligrams twice a day -Chronic insomnia for medical conditions Elavil 50 mg daily at bedtime -Hyperlipidemia TriCor 48 mg daily -Hypoalbuminemia Acute phase reactant -Tracheostomy wound with cultures positive for group D enterococcus, Bibi albicans, presumptive staph aureus IV vancomycin -Pneumonia with cultures positive for MSSA and Bibi Vancomycin and IVEraxis -Obstructive sleep apnea On CPAP at home -Pneumomediastinum and subcutis emphysema complications of COVID-19/pneumonia.: Improved - right upper apical pneumothorax less than 5%. -Diabetic peripheral neuropathy Lyrica 100 mg 3 times a day -Full code -Chronic neck pain forom surgery for removal of lymph nodes Tegretol 400 mg twice a day . -Anxiety disorder Paxil 20 mg daily Disposition: [facility] [place] Patient Condition at Discharge: Fair Plan - Discharge Summary Discharge Rx Participant: Yes New Discharge Prescriptions: New Artificial Tears-Hypromellose [Artificial Tear Drops] 2 drops BOTH EYES Q4HR PRN ml PRN Reason: Dry Eye(S) Lactulose [Cephulac] 10 gm PO BID ml Losartan [Cozaar] 100 mg PO HS tab INSULIN ASPART (NovoLOG) [NovoLOG (formulary)] 0 unit SQ Q6HR ml PARoxetine [Paxil] 20 mg PO DAILY tab Ascorbic Acid [Vitamin C] 1,000 mg PO DAILY tab Cholecalciferol [Vitamin D3 (25 Mcg = 1000 Iu)] 25 mcg PO DAILY tablet Insulin Detemir (Levemir) [Levemir] 32 unit SQ HS ml Pregabalin [Lyrica] 100 mg PO TID cap amLODIPine [Norvasc] 10 mg PO DAILY@1200 tab Zinc Sulfate [Orazinc] 220 mg PO DAILY cap Vancomycin HCl in 5 % Dextrose [Vancomycin 1 Gram/250 ml-D5w] 1.75 gm IV Q8HR 7 Days #21 dose Non Formulary Drug 1 each IV ONCE #7 Continue metFORMIN HCL [Glucophage] 1,000 mg PO BID Amitriptyline HCl [Elavil] 50 mg PO HS Acetaminophen Tab [Tylenol] 500 mg PO Q8H PRN PRN Reason: Pain Or Fever > 100.5 carBAMazepine [TEGretol] 400 mg PO BID Clotrimazole/Betameth Cream [Lotrisone] 1 applic TOPICAL BID Albuterol Nebulized [Ventolin Nebulized] 2.5 mg INHALATION RT-QID PRN PRN Reason: Shortness Of Breath Changed Metoprolol Tartrate [Lopressor] 75 mg PO BID #0 Discontinued Losartan [Cozaar] 50 mg PO DAILY Furosemide [Lasix] 40 mg PO DAILY Pregabalin [Lyrica] 200 mg PO BID ALPRAZolam [Xanax] 0.25 mg PO BID PRN PRN Reason: Anxiety Ibuprofen [Motrin] 800 mg PO Q8H PRN PRN Reason: Pain Or Fever > 100.5 Albuterol Sulfate [Ventolin HFA] 2 puff INHALATION RT-Q6H PRN PRN Reason: Shortness Of Breath Acarbose 50 mg PO TID-W/MEALS glipiZIDE XL [Glucotrol Xl] 10 mg PO DAILY Sertraline [Zoloft] 50 mg PO DAILY Fenofibrate Nanocrystallized [Fenofibrate] 48 mg PO DAILY Discharge Medication List metFORMIN HCL [Glucophage] 1,000 mg PO BID 07/31/18 [History] Acetaminophen Tab [Tylenol] 500 mg PO Q8H PRN 10/23/21 [History] Albuterol Nebulized [Ventolin Nebulized] 2.5 mg INHALATION RT-QID PRN 10/23/21 [History] Amitriptyline HCl [Elavil] 50 mg PO HS 10/23/21 [History] Clotrimazole/Betameth Cream [Lotrisone] 1 applic TOPICAL BID 10/23/21 [History] carBAMazepine [TEGretol] 400 mg PO BID 10/23/21 [History] Artificial Tears-Hypromellose [Artificial Tear Drops] 2 drops BOTH EYES Q4HR PRN ml 12/03/21 [Rx] Ascorbic Acid [Vitamin C] 1,000 mg PO DAILY tab 12/03/21 [Rx] Cholecalciferol [Vitamin D3 (25 Mcg = 1000 Iu)] 25 mcg PO DAILY tablet 12/03/21 [Rx] INSULIN ASPART (NovoLOG) [NovoLOG (formulary)] 0 unit SQ Q6HR ml 12/03/21 [Rx] Insulin Detemir (Levemir) [Levemir] 32 unit SQ HS ml 12/03/21 [Rx] Lactulose [Cephulac] 10 gm PO BID ml 12/03/21 [Rx] Losartan [Cozaar] 100 mg PO HS tab 12/03/21 [Rx] Metoprolol Tartrate [Lopressor] 75 mg PO BID #0 12/03/21 [Rx] Non Formulary Drug 1 each IV ONCE #7 12/03/21 [Rx] PARoxetine [Paxil] 20 mg PO DAILY tab 12/03/21 [Rx] Pregabalin [Lyrica] 100 mg PO TID cap 12/03/21 [Rx] Vancomycin HCl in 5 % Dextrose [Vancomycin 1 Gram/250 ml-D5w] 1.75 gm IV Q8HR 7 Days #21 dose 12/03/21 [Rx] Zinc Sulfate [Orazinc] 220 mg PO DAILY cap 12/03/21 [Rx] amLODIPine [Norvasc] 10 mg PO DAILY@1200 tab 12/03/21 [Rx] Follow up Appointment(s)/Referral(s): Dionte Patino NPC [Family Provider] - 1-2 Days Patient Instructions/Handouts: Apixaban (By mouth), Coronavirus Disease 2019 (COVID-19)
[2021-12-03 16:36] VITALS: TEMP 98.6
[2021-12-03 18:07] LABS: Glucose,Whole Blood 126 mg/dL (75-99)
[2021-12-03 19:03] VITALS: BP 151/86; PULSE 75; RESP 29
[2021-12-03] MEDS ORDERED: VANCOMYCIN 1,750 MG in SODIUM CHLORIDE 0.9% 500 ML 500 ML IVPB SCH (21:00)
--- NOTE | 2021-12-07 13:15 | CDI ---
Documentation Clarification Form Date: 12/07/21 From: Emelina Hernandes Admit Date: 10/23/2021 06:17:00 AM Patient Name: Sarmad Ratliff Visit Number: [id number] Discharge Date: 12/03/2021 07:30:00 PM ATTENTION: The Clinical Documentation Specialists (CDI) and [facility] Coding Staff appreciate your assistance in clarifying documentation. Please respond to the clarification below the line at the bottom and electronically sign. The CDI & [facility] Coding staff will review the response and follow-up if needed. Please note: Queries are made part of the Legal Health Record. If you have any questions, please contact the author of this message via ITS. Dr. Carlos Russo, Your patient has the documented diagnosis of unspecified CHF in the ED Note. Additional information regarding the [type, acuity] of CHF is requested. History/Risk Factors: COVID pneumonia, pulmonary embolism, severe PCM, MSSA pneumonia, ARDS, critical illness myopathy, Clinical Indicators: Patient for evaluation of severe shortness of breath cough or congestion. No diagnosis of coronavirus coronavirus diagnosis was on the patient is about a 14 or 15 of diagnosis. Patient still with significant shortness of breath weakness cough congestion states she was admitted to the hospital discharge yesterday and symptoms worsened. 10/23 VS/Pulse OX: T 98.3, P 100, R 20, BP 142/88, O2 Sat 92 NC 5L BNP: 185 03/13/18 Echocardiogram Results: Overall left ventricular systolic function is mildly impaired with, an EF between 45-50%. 10/23 Chest X Ray: Moderate pulmonary interstitial edema. This could be acute heart failure or acute pneumonia .Abnormality appears new compared to old exam. Treatment: IV Lasix stat 3 times, then 60mg IV Q12HR, then 40 mg IV BID, then 40 mg IV daily In your professional opinion, can you please clarify the [acuity and type] of CHF if known? [ ] Acute Systolic Heart Failure (reduced EF) [ ] Chronic Systolic Heart Failure (reduced EF) [ ] Acute on Chronic Systolic Heart Failure (reduced EF) [ ] Acute Diastolic Heart Failure (preserved EF) [ ] Chronic Diastolic Heart Failure (preserved EF) [ ] Acute on Chronic Diastolic Heart Failure (preserved EF) [ ] Acute Systolic & Diastolic Heart Failure [ ] Chronic Systolic & Diastolic Heart Failure [ ] Acute on Chronic Heart Failure Systolic & Diastolic Heart Failure [ ] Other, please specify [ ] Unable to determine NO CHF MTDD
--- NOTE | 2021-12-10 22:13 | P.PN ---
Subjective Progress Note Date: 12/03/21 Principal diagnosis: Pneumonia, rash, leukocytosis Patient is a 61-year male admitted to the hospital October 23, 2021 patient diagnosed with COVID-19 pneumonia did have a respiratory failure requiring intubation failed to be extubated status post trach and PEG on November 10, 2021 patient also have a component of secondary to pneumonia with MSSA patient has received more than 2 weeks course of Zosyn which was discontinued 11/17/2021 because of rash. On today's evaluation that is 12/03/2021 the patient remains to be afebrile, patient is hemodynamically stable not requiring any pressor support, the patient FiO2 is stable and no purulent secretion through the ET however continued to have some purulent secretion from his trach site, no diarrhea reported by the nursing staff has been tolerating his tube feeds Objective - Vital Signs Vital signs: Vital Signs Temp 98 F 12/03/21 12:00 Pulse 69 12/03/21 15:00 Resp 25 H 12/03/21 15:00 BP 146/83 12/03/21 15:00 Pulse Ox 97 12/03/21 15:00 Intake & Output 12/02/21 12/03/21 12/03/21 18:59 06:59 18:59 Intake Total 1384 1444 612 Output Total 2500 1125 1435 Balance -1116 319 -823 Weight 118.4 kg 117.4 kg Intake: IV 756 769 207 0.9 Normal Saline @ 20 mL 220 230 180 /hr KVO Pressure bag 36 39 27 Vancomycin 1,750 mg In 500 Sodium Chloride 0.9% 500 ml 500 ml @ 167 mls/hr IVPB Q8H [facility] Rx#: [id number] Vancomycin 2,250 mg In 500 Sodium Chloride 0.9% 500 ml 500 ml @ 167 mls/hr IVPB ONCE ONE Rx#: [id number] Tube Feeding 498 585 405 Other 130 90 Output: Urine 2500 1125 1435 Other: Voiding Method Indwelling Catheter Indwelling Catheter Indwelling Catheter ABP, PAP, CO, CI - Last Documented Arterial Blood Pressure 195/104 - Exam GENERAL DESCRIPTION: Middle-age male intubated on the vent through the trach RESPIRATORY SYSTEM: Unlabored breathing , decreased breath sounds at bases HEART: S1 S2 regular rate and rhythm , ABDOMEN: Soft , no tenderness EXTREMITIES: No edema feet - Labs CBC & Chem 7: 12/03/21 05:30 12/03/21 05:30 Labs: Abnormal Lab Results - Last 24 Hours (Table) 12/02/21 12/02/21 12/03/21 Range/Units 17:36 23:46 05:30 WBC 10.7 H (3.8-10.6) k/uL RBC 2.85 L (4.30-5.90) m/uL Hgb 9.0 L (13.0-17.5) gm/dL Hct 29.1 L (39.0-53.0) % MCV 102.1 H (80.0-100.0) fL ABG HCO3 (21-25) mmol/L ABG Total CO2 (19-24) mmol/L ABG O2 Saturation (94-97) % Sodium (137-145) mmol/L Creatinine (0.66-1.25) mg/dL Glucose (74-99) mg/dL POC Glucose (mg/dL) 171 H 159 H (75-99) mg/dL 12/03/21 12/03/21 12/03/21 Range/Units 05:30 05:32 05:37 WBC (3.8-10.6) k/uL RBC (4.30-5.90) m/uL Hgb (13.0-17.5) gm/dL Hct (39.0-53.0) % MCV (80.0-100.0) fL ABG HCO3 28 H (21-25) mmol/L ABG Total CO2 29 H (19-24) mmol/L ABG O2 Saturation 98.2 H (94-97) % Sodium 135 L (137-145) mmol/L Creatinine 0.41 L (0.66-1.25) mg/dL Glucose 138 H (74-99) mg/dL POC Glucose (mg/dL) 142 H (75-99) mg/dL 12/03/21 Range/Units 11:46 WBC (3.8-10.6) k/uL RBC (4.30-5.90) m/uL Hgb (13.0-17.5) gm/dL Hct (39.0-53.0) % MCV (80.0-100.0) fL ABG HCO3 (21-25) mmol/L ABG Total CO2 (19-24) mmol/L ABG O2 Saturation (94-97) % Sodium (137-145) mmol/L Creatinine (0.66-1.25) mg/dL Glucose (74-99) mg/dL POC Glucose (mg/dL) 193 H (75-99) mg/dL Microbiology - Last 24 Hours (Table) 11/30/21 15:02 Gram Stain - Preliminary Trachea Wound Culture - Preliminary Group D Enterococcus Bibi albicans Presumptive Staph aureus Assessment and Plan (1) Fever Status: Acute Code(s): R50.9 - FEVER, UNSPECIFIED SNOMED Code(s): 105374022 (2) Rash Status: Acute Code(s): R21 - RASH AND OTHER NONSPECIFIC SKIN ERUPTION SNOMED Code(s): 241563177 (3) COVID-19 Status: Acute Code(s): U07.1 - COVID-19 SNOMED Code(s): 062289025 Plan: 1- patient with low-grade fever and some purulent drainage from his trach site cultures are now showing group D enterococcus along with bibi albicans in this patient who did have a rash with Zosyn, patient will be continued with vancomycin pharmacy to dose along with Eraxis 7-10 days on discharge to the LTAC
== END 2021-12-03 19:30 | DRG 3 ==
LOC: EC 02:40 → 4SSUR 06:17 → 2SICU 10-29 16:39
PROVIDERS: ADMIT Hospitalist; ATTEND Hospitalist
PROC: 5A0955A Assistance with Respiratory Ventilation, Greater than 96 Consecutive Hours, High Flow/Velocity Cannula (ICD-10-PCS; 2021-10-23)
PROC: XW0DXM6 Introduction of Baricitinib into Mouth and Pharynx, External Approach, New Technology Group 6 (ICD-10-PCS; 2021-10-29)
PROC: 5A1955Z Respiratory Ventilation, Greater than 96 Consecutive Hours (ICD-10-PCS; 2021-10-30)
PROC: 0BH18EZ Insertion of Endotracheal Airway into Trachea, Via Natural or Artificial Opening Endoscopic (ICD-10-PCS; 2021-10-30)
PROC: 0D9670Z Drainage of Stomach with Drainage Device, Via Natural or Artificial Opening (ICD-10-PCS; 2021-10-30)
PROC: 4A133B1 Monitoring of Arterial Pressure, Peripheral, Percutaneous Approach (ICD-10-PCS; 2021-10-30)
PROC: 3E033XZ Introduction of Vasopressor into Peripheral Vein, Percutaneous Approach (ICD-10-PCS; 2021-10-30)
PROC: 05H633Z Insertion of Infusion Device into Left Subclavian Vein, Percutaneous Approach (ICD-10-PCS; 2021-10-30)
PROC: 03HY32Z Insertion of Monitoring Device into Upper Artery, Percutaneous Approach (ICD-10-PCS; 2021-10-30)
PROC: 4A133J1 Monitoring of Arterial Pulse, Peripheral, Percutaneous Approach (ICD-10-PCS; 2021-10-30)
PROC: 5A09357 Assistance with Respiratory Ventilation, Less than 24 Consecutive Hours, Continuous Positive Airway Pressure (ICD-10-PCS; 2021-10-30)
PROC: 3E0G76Z Introduction of Nutritional Substance into Upper GI, Via Natural or Artificial Opening (ICD-10-PCS; 2021-10-31)
PROC: 0B110F4 Bypass Trachea to Cutaneous with Tracheostomy Device, Open Approach (ICD-10-PCS; principal; 2021-11-10 11:15)
PROC: 0DH63UZ Insertion of Feeding Device into Stomach, Percutaneous Approach (ICD-10-PCS; principal; 2021-11-10 11:15)
PROC: 0BW10FZ Revision of Tracheostomy Device in Trachea, Open Approach (ICD-10-PCS; 2021-11-14)
PROC: 0BC18ZZ Extirpation of Matter from Trachea, Via Natural or Artificial Opening Endoscopic (ICD-10-PCS; 2021-11-14)
PROC: 0BH18EZ Insertion of Endotracheal Airway into Trachea, Via Natural or Artificial Opening Endoscopic (ICD-10-PCS; 2021-11-14)
PROC: 30243K1 Transfusion of Nonautologous Frozen Plasma into Central Vein, Percutaneous Approach (ICD-10-PCS; 2021-11-17)
PROC: 05HC33Z Insertion of Infusion Device into Left Basilic Vein, Percutaneous Approach (ICD-10-PCS; 2021-11-17)
PROC: 0BCB8ZZ Extirpation of Matter from Left Lower Lobe Bronchus, Via Natural or Artificial Opening Endoscopic (ICD-10-PCS; 2021-11-18)
PROC: 0BC78ZZ Extirpation of Matter from Left Main Bronchus, Via Natural or Artificial Opening Endoscopic (ICD-10-PCS; 2021-11-18)
PROC: 0B9F8ZX Drainage of Right Lower Lung Lobe, Via Natural or Artificial Opening Endoscopic, Diagnostic (ICD-10-PCS; 2021-11-18)
PROC: 0B9J8ZX Drainage of Left Lower Lung Lobe, Via Natural or Artificial Opening Endoscopic, Diagnostic (ICD-10-PCS; 2021-11-18)
PROC: 0BC98ZZ Extirpation of Matter from Lingula Bronchus, Via Natural or Artificial Opening Endoscopic (ICD-10-PCS; 2021-11-18)
PROC: 0BC88ZZ Extirpation of Matter from Left Upper Lobe Bronchus, Via Natural or Artificial Opening Endoscopic (ICD-10-PCS; 2021-11-18)
PROC: 0BC58ZZ Extirpation of Matter from Right Middle Lobe Bronchus, Via Natural or Artificial Opening Endoscopic (ICD-10-PCS; 2021-11-18)
PROC: 0BC48ZZ Extirpation of Matter from Right Upper Lobe Bronchus, Via Natural or Artificial Opening Endoscopic (ICD-10-PCS; 2021-11-18)
PROC: 0GBG0ZX Excision of Left Thyroid Gland Lobe, Open Approach, Diagnostic (ICD-10-PCS; 2021-11-22)
PROC: 0BJ08ZZ Inspection of Tracheobronchial Tree, Via Natural or Artificial Opening Endoscopic (ICD-10-PCS; 2021-11-22)
PROC: 0BC78ZZ Extirpation of Matter from Left Main Bronchus, Via Natural or Artificial Opening Endoscopic (ICD-10-PCS; 2021-11-22)
PROC: 0BC38ZZ Extirpation of Matter from Right Main Bronchus, Via Natural or Artificial Opening Endoscopic (ICD-10-PCS; 2021-11-22)
PROC: B51F1ZZ Fluoroscopy of Right Pelvic (Iliac) Veins using Low Osmolar Contrast (ICD-10-PCS; 2021-11-23)
PROC: 06H03DZ Insertion of Intraluminal Device into Inferior Vena Cava, Percutaneous Approach (ICD-10-PCS; 2021-11-23)
PROC: B5191ZZ Fluoroscopy of Inferior Vena Cava using Low Osmolar Contrast (ICD-10-PCS; 2021-11-23)
PROC: 02HV33Z Insertion of Infusion Device into Superior Vena Cava, Percutaneous Approach (ICD-10-PCS; 2021-11-24)
PROC: 4A133J1 Monitoring of Arterial Pulse, Peripheral, Percutaneous Approach (ICD-10-PCS; 2021-11-24)
PROC: 4A133B1 Monitoring of Arterial Pressure, Peripheral, Percutaneous Approach (ICD-10-PCS; 2021-11-24)
PROC: 03HY32Z Insertion of Monitoring Device into Upper Artery, Percutaneous Approach (ICD-10-PCS; 2021-11-24)
DX: U07.1 COVID-19 (principal); J12.82 Pneumonia due to coronavirus disease 2019; I26.99 Other pulmonary embolism without acute cor pulmonale; E43 Unspecified severe protein-calorie malnutrition; J15.211 Pneumonia due to Methicillin susceptible Staphylococcus aureus; J80 Acute respiratory distress syndrome; G72.81 Critical illness myopathy; B37.89 Other sites of candidiasis; T17.890A Other foreign object in other parts of respiratory tract causing asphyxiation, initial encounter; R04.89 Hemorrhage from other sites in respiratory passages; B37.0 Candidal stomatitis; D68.32 Hemorrhagic disorder due to extrinsic circulating anticoagulants; E87.4 Mixed disorder of acid-base balance; I31.9 Disease of pericardium, unspecified; D62 Acute posthemorrhagic anemia; J93.9 Pneumothorax, unspecified; J98.11 Atelectasis; I95.9 Hypotension, unspecified; J98.2 Interstitial emphysema; E11.42 Type 2 diabetes mellitus with diabetic polyneuropathy; E88.09 Other disorders of plasma-protein metabolism, not elsewhere classified; D63.8 Anemia in other chronic diseases classified elsewhere; B95.2 Enterococcus as the cause of diseases classified elsewhere; E11.65 Type 2 diabetes mellitus with hyperglycemia; M06.9 Rheumatoid arthritis, unspecified; I10 Essential (primary) hypertension; I34.1 Nonrheumatic mitral (valve) prolapse; E78.5 Hyperlipidemia, unspecified; G47.33 Obstructive sleep apnea (adult) (pediatric); T45.515A Adverse effect of anticoagulants, initial encounter; E87.6 Hypokalemia; R04.0 Epistaxis; F32.A Depression, unspecified; F41.9 Anxiety disorder, unspecified; G89.29 Other chronic pain; N44.8 Other noninflammatory disorders of the testis; M1A.9XX0 Chronic gout, unspecified, without tophus (tophi); M19.90 Unspecified osteoarthritis, unspecified site; R19.7 Diarrhea, unspecified; R00.1 Bradycardia, unspecified; M54.2 Cervicalgia; N40.0 Benign prostatic hyperplasia without lower urinary tract symptoms; F51.04 Psychophysiologic insomnia; L27.1 Localized skin eruption due to drugs and medicaments taken internally; T36.0X5A Adverse effect of penicillins, initial encounter; Z68.27 Body mass index [BMI] 27.0-27.9, adult; Z79.84 Long term (current) use of oral hypoglycemic drugs; Z79.899 Other long term (current) drug therapy; Z86.73 Personal history of transient ischemic attack (TIA), and cerebral infarction without residual deficits; Z90.89 Acquired absence of other organs; Z85.820 Personal history of malignant melanoma of skin; Z86.14 Personal history of Methicillin resistant Staphylococcus aureus infection; Z87.442 Personal history of urinary calculi; Z90.79 Acquired absence of other genital organ(s); Z87.39 Personal history of other diseases of the musculoskeletal system and connective tissue; Z86.19 Personal history of other infectious and parasitic diseases; Z87.09 Personal history of other diseases of the respiratory system; Z85.46 Personal history of malignant neoplasm of prostate; Z74.01 Bed confinement status; Z98.890 Other specified postprocedural states; Z71.3 Dietary counseling and surveillance; Z88.8 Allergy status to other drugs, medicaments and biological substances; Z82.49 Family history of ischemic heart disease and other diseases of the circulatory system; Z82.3 Family history of stroke; Z83.3 Family history of diabetes mellitus
CPT/HCPCS: 31622; 31624; 31645; 36410; 36415; 36573; 37191; 43246; 71045; 71275; 74018; 76937; 80048; 80053; 80202; 81001; 82728; 82805; 83605; 83615; 83735; 83880; 84100; 84132; 84145; 85025; 85027; 85379; 85610; 85730; 86140; 86850; 86900; 86901; 86920; 87040; 87070; 87075; 87077; 87186; 87205; 88305; 93005; 93970; 94002; 94003; 94640; 94660; 94760; 96374; 96375; 99291

== ENCOUNTER 2024-09-05 00:58 | Emergency (ER) | payer MEDICARE, OTHER ==
[2024-09-05 01:15] VITALS: RESP 18
[2024-09-05] MEDS: ACETAMINOPHEN TAB 500 MG TAB PO STA (01:50)
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
[2024-09-05 04:03] VITALS: BP 135/88; PULSE 70; TEMP 97.9
== END 2024-09-05 04:02 | disposition home or self-care (01) ==
LOC: EC 00:58
DX: M54.2 Cervicalgia (principal); R51.9 Headache, unspecified; I10 Essential (primary) hypertension; Z79.899 Other long term (current) drug therapy; Z88.8 Allergy status to other drugs, medicaments and biological substances; Z86.73 Personal history of transient ischemic attack (TIA), and cerebral infarction without residual deficits; V89.2XXA Person injured in unspecified motor-vehicle accident, traffic, initial encounter; Y92.410 Unspecified street and highway as the place of occurrence of the external cause
CPT/HCPCS: 70450; 72125; 99284